=== PATIENT | female | born 1950 | race Caucasian/White ===

== ENCOUNTER 2020-12-14 11:57 | Emergency (ER) | payer OTHER ==
--- OUTSIDE RECORDS SUMMARY | 2020-12-14 12:00 | XMS REPORT | Continuity of Care Document ---
:1950 Author Organization [facility] t Address [address] [place] [address] Care Team Providers Name Role Phone Nisa PEREZ, Liz Attending Clinician Unavailable Alison Ferreira Attending Clinician Ligia RAMIREZ Attending Clinician Maria Luz Lynch MD Attending Clinician Doctor Unassigned, Name Attending Clinician Unavailable Juliann Fuentes MD Attending Clinician Mikala RAMIREZ Attending Clinician Jeremiah RAMIREZ Attending Clinician Ligia RAMIREZ Admitting Clinician Jeremiah RAMIREZ Admitting Clinician Problems This patient has no known problems. Allergies, Adverse Reactions, Alerts This patient has no known allergies or adverse reactions. Medications This patient has no known medications. Procedures This patient has no known procedures. Encounters Start End Encounter Admission Attending Care Care Encounter Source Date/Time Date/Time Type Type Clinicians Facility Department ID 2020-12-05 2020-12-05 Transition Radha Paula [id number] 00:00:00 00:00:00 of Care Lele Hanley [id number] [place] [id number] 2020-11-272020-12-04 [facility] Amelia Ziegler [id number] 10:20:00 19:30:00 Encounter Kashif Strong [id number] Wendi Lynch [facility] [id number] .[id number] 2020-11-27 2020-11-27 Orders Doctor CLAIRE [id number] 00:00:00 00:00:00 Only Unassigned, MAGDA [id number] [facility] [id number] 2020-11-14 2020-11-14 Transition Radha Paula [id number] 00:00:00 00:00:00 of Care Lele Hill Talon [id number] [place] [id number] 2020-11-10 2020-11-13 [facility] Juan Fuentes [facility] 1.2.840. [id number] 03:31:00 16:48:00 Encounter Clarence Bach [id number] Camilo Daniels [id number] [place] [id number] Results This patient has no known results.
[2020-12-14] MEDS ORDERED: METHYLPREDNISOLONE 125 MG INJ ONE (12:20)
[2020-12-14] MEDS ORDERED: LEVALBUTEROL 1.25 MG/3 ML NEB ONE (12:20)
[2020-12-14] MEDS ORDERED: LORazepam 2 MG/ML VIAL ONE (12:36)
[2020-12-14 12:39] LABS: Absolute Lymphocytes (CBC) 0.8 K/uL (0.7-4.9); Basophils % 0.4 % (0-1.3); Hematocrit 40.9 % (36.0-45.0); Lymphocytes % 6.2 % (15.3-44.8); MPV 8.6 fL (7.6-11.3); Protime INR 1.09; RBC Red Blood Cell Count 4.62 M/uL (3.86-4.86)
[2020-12-14 12:50] LABS: ALT/SGPT 17 U/L (12-78); AST/SGOT 24 U/L (15-37); Albumin 3.3 g/dL (3.4-5.0); Alkaline Phosphatase 152 U/L (45-117); BUN Blood Urea Nitrogen 18 mg/dL (7-18); Bicarbonate 34 mmol/L (21-32); Bilirubin Direct 0.2 mg/dL (0-0.2); Bilirubin Total 0.6 mg/dL (0.2-1.0); Glucose Level 166 mg/dL (74-106); Magnesium 2.2 mg/dL (1.8-2.4); NT PRO-BNP 1159 pg/mL (<125); Potassium 3.5 mmol/L (3.5-5.1); Protein, Total 7.2 g/dL (6.4-8.2); Sodium Level 143 mmol/L (136-145); Troponin (Emerg Dept Use Only) < 0.02 ng/mL (0.0-0.045)
[2020-12-14] MEDS ORDERED: NITROGLYCERIN/D5W 50 MG/250 ML BTL IV ONE (13:15)
--- NOTE | 2020-12-14 14:49 | RAD REPORT ---
EXAM DESCRIPTION: Ruben Single View12/14/2020 1:40 pm CLINICAL HISTORY: Shortness of breath COMPARISON: December 09 2020 FINDINGS: A moderate right pneumothorax has developed. Lungs appear clear of acute infiltrate. Heart is mildly enlarged. There may be a small left pleural effusion IMPRESSION: Moderate right pneumothorax. The exam was discussed with Dr. Bagley in the emergency ro om 2:41 p.m. December 14, 2020
[2020-12-14] MEDS ORDERED: LIDOCAINE 1% MPF 30 ML VIAL ONE (15:34)
--- NOTE | 2020-12-14 16:07 | RAD REPORT ---
EXAM DESCRIPTION: Chilot Single View12/14/2020 3:58 pm CLINICAL HISTORY: Device placement right chest tube placement IMPRESSION: Right chest tube has been inserted with minimal residual right pneumothorax.
--- NOTE | 2020-12-14 16:23 | RAD REPORT ---
EXAM DESCRIPTION: CT - Thorax Wo Con - 12/14/2020 4:09 pm CLINICAL HISTORY: Right pneumothorax COMPARISON: Chest x-ray December 14, 2020 TECHNIQUE: Computed axial tomography of the chest was obtained. Contrast was not requested. All CT scans are performed using dose optimization technique as appropriate and may include automated exposure control or mA/KV adjustment according to patient size. FINDINGS: The evaluation of mediastinum, patricio and vessels is limited secondary to lack of IV contras t administration. A right chest tube has its within the medial upper right pleural space. Minimal right pneumothorax. Mild left lower lobe atelectasis. Several right upper lobe blebs. Largest measures 3.4 centimeters. M ild chronic appearing right lung opacities No mediastinal or hilar lymphadenopathy is seen. A pleural effusion is not present. IMPRESSION: Placement of a right chest tube with minimal right pneumothorax
--- NOTE | 2020-12-14 16:39 | CON ---
Date of Consultation: 12/14/2020 Chief Complaint: Shortness of breath. History Of Present Illness: The patient is a 70-year-old female with severe COPD who went into acute respiratory distress with shortness of breath. EMS was called. She was put on CPAP. She had extre me hypertension. Brought to the emergency room. Medication was given. She was switched to BiPAP. Chest x-ray was done and revealed a large right pneumothorax and I was asked to place a chest tube. Informed consent from the family was obtained. The patient was unable to give informed consent. On y arrival, she was resting, breathing with BiPAP. Her blood pressure had come down. Her O2 sat was 100%. She was in no acute distress. Review of Systems: Otherwise unremarkable. Past Medical History: Significant for COPD. Past Surgical History: Significant for appendectomy and total abdominal hysterectomy. Allergies: NO ALLERGIES. Social History: She does smoke. Denies drinking per computer records. She has counseled on previou s visits. Physical Examination: Vital signs: She is awake, but confused, resting. Head and neck: Trachea is midline. There is no JVD. No neck masses. Chest: Diminished breath sounds on the right side. Somewhat labored breathing. Heart: S1, S2. Abdomen: Soft. Extremities: Neurovascularly intact. Neurologic: Nonfocal. Chest x-ray shows a large right pneumothorax. Assessment: Right large pneumothorax. Plan: Informed consent obtained from the family for placement of right chest tube. They understood risks, benefits, alternatives and agreed to procedure. Procedure Note: The patient was prepped and draped in the usual sterile fashion. Lidocaine 1% infil trated in the mid axillary line 4th intercostal space. Then, an 11 blade was used to make a 1.5 cm i ncision. Subcutaneous tissue was divided and then pleural cavity was entered with blunt dissection. A large amount of air exited. A 24-Maori chest tube placed and secured with #1 Vicryl. Occlusive dressing was applied. Pleur-evac connected and chest x-ray has been ordered. The patient tolerated the procedure in stable condition. /MODL Voice ID: [id number] Report ID: [id number]
[2020-12-14 17:55] LABS: Arterial Blood Carboxyhemoglob 0.9 % (0-1.5); Blood Gas Oxyhemoglobin 97.4 % (94-97); Blood O2 Saturation 99.3 % (92-98.5)
--- NOTE | 2020-12-14 18:24 | ER ---
Nurse's Notes [facility] Name: Elena Bruno Age: 70 yrs Sex: Female : 1950 Arrival Date: 12/14/2020 Time: 12:05 Bed 3 Private MD: Diagnosis: COPD Exacerbation, Spntaneous PTX right lung Presentation: 12/14 12:05 Chief complaint: EMS states: pt from home, cyanotic on home o2 upon arrival, sats at tw2 71%, pt also diaphoretic, pt was just here for same thing per son. 12:09 Coronavirus screen: difficulty breathing, Client presents with at least one sign or tw2 symptom that may indicate coronavirus-19. Standard/surgical mask placed on the client. Provider contacted for isolation considerations. Ebola Screen: Patient denies travel to an Ebola-affected area in the 21 days before illness onset. Initial Sepsis Screen: Does the patient meet any 2 criteria? Yes Does the patient have a suspected source of infection? No. Patient's initial sepsis screen is negative. Risk Assessment: Do you want to hurt yourself or someone else? Patient reports no desire to harm self or others. Onset of symptoms was December 14, 2020. 12:09 Acuity: FABBY 2 tw2 12:09 Method Of Arrival: EMS: [facility] tw2 Triage Assessment: 12:05 General: Appears distressed, slender, Behavior is anxious. Pain: Denies pain. tw2 Respiratory: Reports shortness of breath Airway is patent Respiratory effort is labored, Respiratory pattern is tachypnea Onset: The symptoms/episode began/occurred , the patient has severe shortness of breath. Historical: - Allergies: 12:14 No Known Allergies; tw2 - Home Meds: 12:14 Aspirin Oral [Active]; Albuterol Inhl [Active]; tw2 - PMHx: 12:14 Chronic obstructive lung disease; tw2 - PSHx: 12:14 Appendectomy; Total abdominal hysterectomy; tw2 - Immunization history:: Adult Immunizations. - Social history:: Smoking status: . Screenin:28 Abuse screen: Denies threats or abuse. Nutritional screening: No deficits noted. tw2 Tuberculosis screening: No symptoms or risk factors identified. Fall Risk Secondary diagnosis (15 points) impaired mobility. Assessment: 12:19 Reassessment: pt unable to hold still for EKG at this time, pt states "im panicking" tw2 provider notified of delay, medicated as ordered. 12:24 General: Appears slender, Behavior is anxious. Pain: Denies pain. Neuro: Level of tw2 Consciousness is awake, alert, obeys commands, Oriented to person, place, situation. Cardiovascular: Rhythm is sinus tachycardia. Respiratory: Airway is patent Respiratory effort is even, labored, Respiratory pattern is tachypnea Breath sounds are diminished bilaterally. GI: Parent/caregiver reports the patient having incontinence, "she just looses her stools whenever she stands up since she has been home from the hospital just recently over the 09 of December weekend". : Parent/caregiver report the patient having incontinence. EENT: No signs and/or symptoms were reported regarding the EENT system. Derm: Skin is intact, is fragile, is thin, Skin is dry. Musculoskeletal: Range of motion: intact in all extremities, Kyphosis noted. 12:51 Reassessment: pts son at bedside heard saying "what are you doing, leave it on", upon tw2 entry into the room pt has bipap off face, son is holding it near her face, bipap mask reapplied, noted o2 at 69%, pts son states "she does not want to be intubated", provider SOHEILA Murcia notified of pts o2 sat at this time and is at bedside, bipap settings adjusted to 60% FIO2, 16/8, rate 25, pt o2 sat improving noted at 88%, will continue to monitor. 13:19 Reassessment: xray at bedside at this time. tw2 13:53 Reassessment: Patient appears in no apparent distress at this time. Patient and/or tw2 family updated on plan of care and expected duration. Pain level reassessed. 14:25 Reassessment: Patient appears in no apparent distress at this time. Patient and/or tw2 family updated on plan of care and expected duration. Pain level reassessed. 15:14 Reassessment: general surgeon Dr. Santoyo and maintenance assistant nurse at bedside performing chest tw2 tube at this time. 15:37 Reassessment: pts son talking with general surgeon Dr. Santoyo at this time. tw2 15:43 Reassessment: Xray at the bedside. sv 16:15 Reassessment: pt moved to CT on NRB at 15L, pt tolerated well o2 sat remained >98% tw2 during Cat scan. 16:20 Reassessment: Patient appears in no apparent distress at this time. Patient and/or tw2 family updated on plan of care and expected duration. Pain level reassessed. 16:38 Reassessment: pts SON - DOMINIQUE PIERCE ph#[phone]. tw2 17:00 Reassessment: per VO from Dr. Bagley place pt on NRB at this time, pt placed on NRB at tw2 15L, pt remains at 100%, RT at bedside performing ABG at this time, will continue to monitor. Vital Signs: 12:09 BP 199 / 137; Pulse 108; Resp 30; Temp 97.9(TE); Pulse Ox 99% on Non-rebreather mask; tw2 Weight 50.8 kg (R); 12:14 Pulse Ox 100% on 30% BiPAP; tw2 12:55 BP 143 / 95; Pulse 113; Resp 25; Pulse Ox 98% on BiPAP; tw2 13:18 BP 133 / 94; Pulse 109; Resp 30; Temp 95.8(C); Pulse Ox 100% on BiPAP; tw2 13:52 BP 121 / 89; Pulse 91; Resp 14; Temp 96.9(C); Pulse Ox 100% on BiPAP; tw2 14:24 BP 125 / 87; Pulse 83; Resp 15; Temp 96.6(C); Pulse Ox 100% on BiPAP; tw2 15:14 BP 154 / 101; Pulse 86; Resp 14; Pulse Ox 100% on BiPAP; tw2 15:36 BP 111 / 77; Pulse 89; Resp 14; Pulse Ox 99% on R/A; tw2 16:20 BP 123 / 81; Pulse 84; Resp 15; Pulse Ox 100% on BiPAP; tw2 17:00 BP 108 / 75; Pulse 81; Resp 12; Pulse Ox 100% on Non-rebreather mask; tw2 17:26 BP 113 / 76; Pulse 82; Resp 12; Pulse Ox 100% on Non-rebreather mask; tw2 17:38 BP 110 / 78; Pulse 80; Resp 17; Temp 96.8(C); Pulse Ox 100% on 30% BiPAP; tw2 18:00 BP 141 / 93; Pulse 78; Resp 17; Temp 96.9(C); Pulse Ox 97% on R/A; tw2 18:27 BP 138 / 91; Pulse 74; Resp 19; Pulse Ox 97% on BiPAP; tw2 17:38 18/7, rate 26, 30% per RT Radha, provider Dr. Bagley notified of ABG results and bipap tw2 settings at this time. ED Course: 12:05 Patient arrived in ED. tw2 12:05 Placed in gown. Bed in low position. Side rails up X 1. case monitor on. Pulse ox tw2 on. NIBP on. Warm blanket given. Head of bed elevated. 12:08 Mi Jaime RN is Primary Nurse. tw2 12:08 Arm band placed on. tw2 12:08 Maintain EMS IV. Dressing intact. Site clean \\T\\ dry. Gauge \\T\\ site: 20 g RIGHT hand. tw 2 Inserted saline lock: 20 gauge in right forearm, using aseptic technique. Blood collected. Missed attempt(s): 20 gauge in right forearm. Bleeding controlled, band aid applied, catheter tip intact. 12:13 Triage completed. tw2 12:19 Kushal Bagley MD is Attending Physician. kdr 12:28 BIPAP Sent. tw2 13:35 XRAY Chest (1 view) Sent. sv 13:40 XRAY Chest (1 view) In Process Unspecified. EDMS 14:53 Initial lab(s) drawn, by ED staff, EKG done, by ED staff, reviewed by Kushal Bagley MD. 5 15:20 Assist provider with chest tube insertion in right lateral chest wall. Tray was set up. sv Attached to pleur-e-vac. Chest tube inserted by Kwadwo Santoyo MD Placement verified by CXR, return of air, Dressed with Vaseline gauze, silk tape, 4X4s, Patient tolerated well. 15:58 Chest Single View XRAY In Process Unspecified. EDMS 16:09 CT Chest Wo Con In Process Unspecified. EDMS 17:37 Report given to CHRIS Sanders at [facility]. tw2 18:26 Patient transferred, IV remains in place. tw2 Administered Medications: 12:14 Drug: SOLU-Medrol (methylPrednisoLONE) 125 mg Route: IVP; Site: right hand; tw2 13:17 Follow up: Response: No adverse reaction tw2 12:19 Drug: Ativan (LORazepam) 0.25 mg Route: IVP; Site: right forearm; tw2 12:29 Follow up: Response: No adverse reaction; No change in condition; Anxiety unchanged; tw2 provider notified. 12:51 Drug: Ativan (LORazepam) 0.25 mg Route: IVP; Site: right forearm; tw2 14:24 Follow up: Response: No adverse reaction tw2 13:16 Not Given (per Dr. Bagley cancell): Lasix (furosemide) 40 mg IVP once; give over 2 tw2 minutes 13:16 Not Given (pts conditon improved with proper ventilationn): Nitro Drip - (Nitroglycerin tw2 50 mg, D5W 250 ml) IV at 5 mcg/min continuous; titrate until desired hemodynamic response. Intake: Ventilator: 12:14 Fi02: 30%; Rate: 14min; Mode: CPAP; tw2 12:14 14/6 tw2 Outcome: 18:23 ER care complete, transfer ordered by . kdr 18:26 Transferred by ground EMS to [facility]. tw2 18:26 critical 18:26 Instructed on the need for admit. 18:47 Patient left the ED. tw2 Signatures: Dispatcher [employer] Rosina Clancy, Kushal Mays RN, MD MD kdr Wise, Tara, RN RN 2 Gena Christie [facility] Corrections: (The following items were deleted from the chart) 12:13 12:05 Chief complaint: EMS states: pt from home, cyanotic on home o2 upon arrival, sats tw2 at 71%, pt also diaphoretic tw2 17:50 17:38 BP 110 / 78; Pulse 80bpm; Resp 17bpm; Pulse Ox 100% 02 30% BiPAP; Temp 96.8F tw2 Catheter; 23/12, rate 26, 30%; tw2
--- NOTE | 2020-12-14 18:24 | EDPHYS ---
Physician Documentation [facility] Name: Elena Bruno Age: 70 yrs Sex: Female : 1950 Arrival Date: 12/14/2020 Time: 12:05 Bed 3 Private MD: ED Physician Kushal Bagley HPI: 12/14 13:39 This 70 yrs old Female presents to ER via EMS with complaints of Respiratory kdr Distress. 13:39 The patient has shortness of breath at rest. Onset: The symptoms/episode began/occurred kdr this morning. Duration: The symptoms are continuous, and are steadily getting worse. The patient's shortness of breath is aggravated by exertion, light activity. Associated signs and symptoms: Pertinent positives: Pertinent negatives: non-productive cough. Severity of symptoms: At their worst the symptoms were incapacitating in the emergency department the symptoms are unchanged. The patient has been recently seen at the [facility] Emergency Department, The patient has been recently been admitted at [facility], was discharged last week. Historical: - Allergies: 12:14 No Known Allergies; tw2 - Home Meds: 12:14 Aspirin Oral [Active]; Albuterol Inhl [Active]; tw2 - PMHx: 12:14 Chronic obstructive lung disease; tw2 - PSHx: 12:14 Appendectomy; Total abdominal hysterectomy; tw2 - Immunization history:: Adult Immunizations. - Social history:: Smoking status: . ROS: 13:39 Constitutional: Negative for fever, chills, and weight loss, Eyes: Negative for injury, kdr pain, redness, and discharge, Neck: Negative for injury, pain, and swelling, Cardiovascular: Negative for chest pain, palpitations, and edema. 13:39 Unable to obtain ROS due to patient distress, patient is on ventilator. Exam: 13:39 Constitutional: This is a well developed, well nourished patient who is awake, alert, kdr and in severe distress. Head/Face: Normocephalic, atraumatic. Eyes: Pupils equal round and reactive to light, extra-ocular motions intact. Lids and lashes normal. Conjunctiva and sclera are non-icteric and not injected. Cornea within normal limits. Periorbital areas with no swelling, redness, or edema. Neck: Trachea midline, no thyromegaly or masses palpated, and no cervical lymphadenopathy. Supple, full range of motion without nuchal rigidity, or vertebral point tenderness. No Meningismus. Chest/axilla: Normal chest wall appearance and motion. Nontender with no deformity. No lesions are appreciated. Abdomen/GI: Soft, non-tender, with normal bowel sounds. No distension or tympany. No guarding or rebound. No evidence of tenderness throughout. Back: No spinal tenderness. No costovertebral tenderness. Full range of motion. Skin: Warm, dry with normal turgor. Normal color with no rashes, no lesions, and no evidence of cellulitis. MS/ Extremity: Pulses equal, no cyanosis. Neurovascular intact. Full, normal range of motion. Neuro: Awake and alert, GCS 15, oriented to person, place, time, and situation. Cranial nerves II-XII grossly intact. Motor strength 5/5 in all extremities. Sensory grossly intact. Cerebellar exam normal. Normal gait. Psych: Awake, alert, with orientation to person, place and time. Behavior, mood, and affect are within normal limits. 13:39 Cardiovascular: Rate: tachycardic, Rhythm: regular, Pulses: no pulse deficits are appreciated. 13:39 Respiratory: severe repiratory distress is noted, Respirations: labored breathing, shallow respirations, that is severe, tachypnea, that is moderate, Breath sounds: decreased breath sounds, that are severe, are scattered. 14:12 ECG was reviewed by the Attending Physician. kdr Vital Signs: 12:09 BP 199 / 137; Pulse 108; Resp 30; Temp 97.9(TE); Pulse Ox 99% on Non-rebreather mask; tw2 Weight 50.8 kg (R); 12:14 Pulse Ox 100% on 30% BiPAP; tw2 12:55 BP 143 / 95; Pulse 113; Resp 25; Pulse Ox 98% on BiPAP; tw2 13:18 BP 133 / 94; Pulse 109; Resp 30; Temp 95.8(C); Pulse Ox 100% on BiPAP; tw2 13:52 BP 121 / 89; Pulse 91; Resp 14; Temp 96.9(C); Pulse Ox 100% on BiPAP; tw2 14:24 BP 125 / 87; Pulse 83; Resp 15; Temp 96.6(C); Pulse Ox 100% on BiPAP; tw2 15:14 BP 154 / 101; Pulse 86; Resp 14; Pulse Ox 100% on BiPAP; tw2 15:36 BP 111 / 77; Pulse 89; Resp 14; Pulse Ox 99% on R/A; tw2 16:20 BP 123 / 81; Pulse 84; Resp 15; Pulse Ox 100% on BiPAP; tw2 17:00 BP 108 / 75; Pulse 81; Resp 12; Pulse Ox 100% on Non-rebreather mask; tw2 17:26 BP 113 / 76; Pulse 82; Resp 12; Pulse Ox 100% on Non-rebreather mask; tw2 17:38 BP 110 / 78; Pulse 80; Resp 17; Temp 96.8(C); Pulse Ox 100% on 30% BiPAP; tw2 18:00 BP 141 / 93; Pulse 78; Resp 17; Temp 96.9(C); Pulse Ox 97% on R/A; tw2 18:27 BP 138 / 91; Pulse 74; Resp 19; Pulse Ox 97% on BiPAP; tw2 17:38 18/7, rate 26, 30% per RadhaRT, provider Dr. Bagley notified of ABG results and bipap tw2 settings at this time. Ventilator: 12:14 Fi02: 30%; Rate: 14min; Mode: CPAP; tw2 12:14 14/6 tw2 MDM: 13:39 Data reviewed: vital signs, nurses notes, lab test result(s), EKG, radiologic studies. kdr Counseling: I had a detailed discussion with the patient and/or guardian regarding: the historical points, exam findings, and any diagnostic results supporting the discharge/admit diagnosis, lab results, radiology results. 18:23 Patient medically screened. kdr 12/14 12:18 Order name: Basic Metabolic Panel; Complete Time: 12:58 tw2 12/14 12:18 Order name: CBC with Diff; Complete Time: 12:58 tw2 12/14 12:18 Order name: LFT's; Complete Time: 12:58 tw2 12/14 12:18 Order name: Magnesium; Complete Time: 12:58 tw2 12/14 12:18 Order name: NT PRO-BNP; Complete Time: 12:58 tw2 12/14 12:18 Order name: PT-INR; Complete Time: 12:58 tw2 12/14 12:18 Order name: Troponin (emerg Dept Use Only); Complete Time: 12:58 tw2 12/14 12:18 Order name: XRAY Chest (1 view); Complete Time: 16:46 tw2 12/14 16:52 Order name: ABG kdr 12/14 16:53 Order name: ABG Arterial Blood Gas EDPA 12/14 17:51 Order name: ABG em1 12/14 18:27 Order name: SARS-COV-2 RT PCR EDPA 12/14 12:18 Order name: EKG; Complete Time: 12:19 tw2 12/14 12:18 Order name: Cardiac monitoring; Complete Time: 12:19 tw2 12/14 12:18 Order name: EKG - Nurse/Tech; Complete Time: 14:24 tw2 12/14 12:18 Order name: IV Saline Lock; Complete Time: 12:19 tw2 12/14 12:18 Order name: Labs collected and sent; Complete Time: 12:19 tw2 12/14 12:18 Order name: O2 Per Protocol; Complete Time: 12:28 tw2 12/14 12:18 Order name: O2 Sat Monitoring; Complete Time: 12:19 tw2 12/14 12:19 Order name: BIPAP tw2 12/14 13:19 Order name: Álvarez; Complete Time: 13:19 tw2 12/14 15:32 Order name: Chest Single View XRAY; Complete Time: 16:46 sv 12/14 15:40 Order name: CT Chest Wo Con; Complete Time: 16:46 sv EC:12 Rate is 102 beats/min. Rhythm is irregular, Sinus arrythmia with No ectopy. QRS [place] is kdr Normal. [place] interval is normal. QRS interval is normal. Clinical impression: Sinus tachycardia. Administered Medications: 12:14 Drug: SOLU-Medrol (methylPrednisoLONE) 125 mg Route: IVP; Site: right hand; tw2 13:17 Follow up: Response: No adverse reaction tw2 12:19 Drug: Ativan (LORazepam) 0.25 mg Route: IVP; Site: right forearm; tw2 12:29 Follow up: Response: No adverse reaction; No change in condition; Anxiety unchanged; tw2 provider notified. 12:51 Drug: Ativan (LORazepam) 0.25 mg Route: IVP; Site: right forearm; tw2 14:24 Follow up: Response: No adverse reaction tw2 13:16 Not Given (per Dr. Bagley cancell): Lasix (furosemide) 40 mg IVP once; give over 2 tw2 minutes 13:16 Not Given (pts conditon improved with proper ventilationn): Nitro Drip - (Nitroglycerin tw2 50 mg, D5W 250 ml) IV at 5 mcg/min continuous; titrate until desired hemodynamic response. Disposition Summary: 12/14/20 18:23 Transfer Ordered Transfer Location: [facility] kdr Reason: Higher level of care kdr Condition: Serious kdr Problem: new kdr Symptoms: have improved kdr Accepting Physician: Angelo(12/14/20 18:47) tw2 Diagnosis - COPD Exacerbation, Spntaneous PTX right lung kdr Discharge Instructions: - Discharge Summary Sheet tw2 Forms: - Medication Reconciliation Form kdr - SBAR form tw2 Signatures: Dispatcher [employer] EDKushal Henriquez MD MD kdr Mayur Gonzalez PA PA [id number] Mi Jaime RN RN tw2 Corrections: (The following items were deleted from the chart) 17:25 16:56 CORONAVIRUS+MR.LAB.BRZ ordered. EDMS EDMS 17:29 16:22 CORONAVIRUS+MR.LAB.BRZ ordered. EDMS EDMS 18:47 18:23 Ahibi kdr tw2
[2020-12-14 19:40] VITALS: TEMP 96.9; O2SAT 97
[2020-12-14 19:41] VITALS: BP 138/91
--- NOTE | 2020-12-17 16:14 | EKG ---
Test Date: 2020-12-14 Test Time: 12:44:48 Clinical Psychologist Licensed: ROSARIO MEASUREMENT RESULTS: Intervals: Rate: 102 MD: 122 QRSD: 80 QT: 346 QTc: 450 [place]: P: 90 MD: 122 QRS: 84 T: 41 INTERPRETIVE STATEMENTS: Sinus tachycardia Voltage criteria for left ventricular hypertrophy Anteroseptal infarct, age undetermined Abnormal ECG Compared to ECG 12/08/2020 14:36:55 Sinus rhythm no longer present Myocardial infarct finding still present Electronically Signed On 12-17-20 16:05:46 CDT by Jacques Mata
== END 2020-12-14 18:47 | disposition short-term general hospital (02) ==
LOC: ER 11:57
DX: J93.11 Primary spontaneous pneumothorax (principal); J44.1 Chronic obstructive pulmonary disease with (acute) exacerbation; Z20.822 Contact with and (suspected) exposure to COVID-19; Z79.82 Long term (current) use of aspirin
CPT/HCPCS: 93005; 85025; 80048; 36415; 83735; 85610; 80076; 84484; 83880; 71250; 71045 ×2; 82805 ×2; 94660; 99291; 99292; U0003; J2930

== ENCOUNTER 2022-03-08 15:25 | Emergency (ER) | payer OTHER ==
--- OUTSIDE RECORDS SUMMARY | 2022-03-08 15:41 | XMS REPORT | Continuity of Care Document ---
:1950 Author Organization [facility] t Address [address] [place] [address] Care Team Providers Name Role Phone No, Pcp [facility] Primary Care Physician Unavailable CHAO CARDONA Attending Clinician Unavailable Lele Paula RN Attending Clinician Unavailable Amelia Ferreira Attending Clinician Kashif Strong MD Attending Clinician Wendi Lynch MD Attending Clinician [phone] Attending Clinician Unavailable Doctor Unassigned, [place] Attending Clinician Unavailable Vidhya Fuentes MD Attending Clinician Clarence Bach MD Attending Clinician Amanda Glez MD Attending Clinician VIDHYA FUENTES Attending Clinician Unavailable CHAO CARDONA Admitting Clinician Unavailable OLE CUEVA Admitting Clinician Unavailable Kashif Strong MD Admitting Clinician Amanda Glez MD Admitting Clinician Payers Payer Name Policy Type Policy Number Effective Date Expiration Date S ource MEDICARE A B [id number] 2014 00:00:00 Problems Condition Condition Condition Status Onset Resolution Last Treating Co mments Source Name Details Category Date Date Treatment Clinician Date Acute Acute Disease Active [facility]emic 12-14 [facility] s respirator respirator 00:00: Me dical y failure y failure 00 Cent er Pneumothor Pneumothor Disease Active [facility] Acute Acute Disease Active Univers hypercapni hypercapni 11-27 it y of c c 00:00: [place] respirator respirator 00 Me dical y failure y failure Bran ch E46 E46 Disease Active Univers Unspecifie Unspecifie 11-12 it y of d severe d severe 00:00: [place] protein-ca protein-ca 00 Me dical marshall marshall [place] malnutriti malnutriti on on Cellulitis Cellulitis Disease Active U nivers of left of left 11-10 ity of lower lower 00:00: [place] extremity extremity 00 [facility] santo Branch Allergies, Adverse Reactions, Alerts Allergy Allergy Status Severity Reaction(s) Onset Inactive Treating Comm ents Source Name Type Date Date Clinician Levoflox Propensi Active Hallucinatio Univers acin ty to ns 11-27 ity of adverse 00:00: [place] reaction 00 [facility] LEVOFLOX DRUG Active Hallucinates Un jacinda ACIN INGREDI 11-27 ity of 00:00: [place] 00 [facility] NO KNOWN Drug Active Univers ALLERGIE Class ity of S [facility] NO KNOWN Allergy [facility] Social History Social Habit Start Date Stop Date Quantity Comments Source Exposure to Not sure [facility] SARS-CoV-2 (event) [facility] Cigarettes smoked 2020-11-27 2020-11-27 Univers ity of current (pack per 00:00:00 00:00:00 ) - Reported Branch Cigarette 2020-11-27 2020-11-27 University of pack-years 00:00:00 00:00:00 [facility] Tobacco use and 2020-11-27 2020-11-27 Never used Universit y of exposure 00:00:00 00:00:00 [facility] Alcohol intake 2020-11-27 2020-11-27 Ex-drinker University 00:00:00 00:00:00 (finding) [facility] Sex Assigned At [address] [address] [facility] 00:00:00 00[facility]00:00 [facility] Smoking Status Start Date Stop Date Source Current every day smoker 2020-11-27 00:00:00 Uni versity [facility] Medications Ordered Filled Start Stop Current Ordering Indication Dosage Frequency Signature Comments Components Source Medication Medication Date Date Medication? Clinician (SIG) Name Name levothyroxi 2021- No 75ug Take [address] [facility] ne 12-20-15 tablet (75 [facility] (SYNTHROID, 00:00: 23:59 mcg total) Medical LEVOTHROID) 00 :00 by mouth Cent er 75 MCG Every tablet morning on an empty stomach. budesonide 2021- No .5mg Q.5D Take [address] [facility] (PULMICORT) 12-19 (0.5 mg Luke s 0.5 mg/2 mL 00:00: 23:59 total) by Medical nebulizer 00 :00 ne[address] er solution on 2 (two) times daily. ipratropium 2021- No 3mL Take [address] [facility] -albuteroL 12-19 by [place] (DUO-NEB) 00:00: 23:59 nebulizati M edical 0.5 mg-3 00 :00 on every 4 Cente r mg(2.5 mg (four) base)/3 mL hours for nebulizer 360 days. solution levothyroxi Yes 75ug Take 75 Uni vers ne 75 mcg 6-30 mcg by ity of tablet 01:00: mouth [place] 27 every Medical morning. Branch levothyroxi Yes 75ug Take 75 Uni vers ne 75 mcg 6-30 mcg by ity of tablet 01:00: mouth [place] 27 every Medical morning. Branch vitamin Yes [id number] 1000ug Take 1 U nivers B-12 1,000 6-30 tablet by ity of mcg tablet 00:00: mouth [place] 00 daily. [facility] vitamin Yes [id number] 1000ug Take 1 U nivers B-12 1,000 6-30 tablet by ity of mcg tablet 00:00: mouth [place] 00 daily. [facility] vitamin Yes 1000ug 1,000 mcg, Un jacinda B-12 6-29 Oral, ity of (CYANOCOBAL 14:00: DAILY, [place]) 00 First dose Medical tablet on Thu Branch 1,000 mcg 12/04/20 at 0900, Until Discontinu ed, Routine albuterol Yes [id number] 2{puff} Inhale 2 Univers 90 6-29 Puffs ity of mcg/actuati 00:00: every 6 Juni as on inhaler 00 (six) Medical hours as Branch needed for Wheezing or Shortness of Breath. albuterol Yes [id number] 2{puff} Inhale 2 Univers 90 6-29 Puffs ity of mcg/actuati 00:00: every 6 Juni as on inhaler 00 (six) Medical hours as Branch needed for Wheezing or Shortness of Breath. KCL 202- No 40meq 40 mEq, Univers (KLOR-CON 12-01 06-26 Oral, ity of M20) tablet 14:15: 13:20 ONCE, 1 [place] 40 mEq 00 :00 dose, [facility] Medical 12/01/20 at Branch 0915, Routine lactated 2020- No 500mL at 999 Unive rs ringers IV 11-29 06-24 mL/hr, 500 it y of infusion 01:15: 02:00 mL, [place] 500 mL 00 :00 Intravenou Medical s, ONCE, 1 Branch dose, 11/28/20 at 2015, Routine furosemide Yes 20mg 20 mg, Unive rs (LASIX) 11-28 Oral, ity of tablet 20 14:00: DAILY, [place] mg 00 First dose Medical on Thu Branch 11/28/20 at 0900, Until Discontinu ed, Routine pantoprazol Yes 40mg 40 mg, Univ ers e 6-23 Oral, ity of (PROTONIX) 14:00: DAILY, [place] EC tablet 00 First dose Medi santo 40 mg on Thu Branch 11/28/20 at 0900, Until Discontinu ed, Routine
Indicatio n for use: None of the above enoxaparin Yes 40mg 40 mg, Unive rs (LOVENOX) 11-28 Subcutaneo ity of injection 14:00: us, DAILY, [place] 40 mg 00 First dose Medical on Thu Branch 11/28/20 at 0900, Until Discontinu ed, Routine predniSONE No 40mg [address] mg, [facility] ers (DELTASONE) 11-28 Oral, ity of tablet 40 14:00: 13:58 DAILY, 5 Juni as mg 00 :00 doses, Medical First dose Branch on Thu11/28/20 at 0900, Last dose on Thu12/02/20 at 0900, Routine levothyroxi Yes 75ug 75 mcg, Uni vers ne 11-28 Oral, ity of (SYNTHROID) 11:00: QAM-0600, [place] tablet 75 00 First dose Medi santo mcg on Thu Branch 11/28/20 at 0600, Until Discontinu ed, Routine albuterol Yes 2.5mg 2.5 mg, [facility] ers (PROVENTIL) 11-28 Inhalation it y of 2.5 mg /3 01:00: , Q4H, [place] mL (0.083 00 First dose Medi santo %) on [facility]3] nebulizer 11/27/20 at solution 2000, 2.5 mg Until Discontinu ed, Routine ceFEPIme No 2000mg 2,000 mg, U nivers (MAXIPIME) 11-28 IV ity of 2,000 mg in 00:15: 14:42 Piggyback, [place] NaCl 0.9% 00 :22 Q8H ABX, Medica l (NS) 100 mL First dose Br anch MINI-BAG on Thu11/27/20 at 1915, Until Discontinu ed, 100 mL
R corina for Anti-Infec tive: Empiric Therapy for Suspected Infection< br>Empiric Therapy Site: Respirator y
Durat ion of therapy: 72 hours doxycycline No 100mg 100 mg, IV Univers (VIBRAMYCIN 11-27 Piggyback, i ty of ) 100 mg in 23:15: 23:48 Q12H ABX, [place] NaCl 0.9% 00 :53 First dose Medi santo (NS) 100 mL on [facility]3] MINI-BAG 11/27/20 at 1815, Until Discontinu ed, 100 mL
R corina for Anti-Infec tive: Empiric Therapy for Suspected Infection< br>Empiric Therapy Site: Respirator y
Durat ion of therapy: 72 hours vancomycin 2020-2020- No 15mg/kg 500 mg U nivers 500 mg in 11-27 (rounded ity o f NS 100 mL 23:15: 14:42 from 652.5 [place] IV 00 :22 mg = 15 Medical piggyback mg/kg Branch (CNR) ?43.5 kg), IV Piggyback, Q12H ABX, First dose on 11/27/20 at 1815, Until Discontinu ed, 100 mL
Reas on for Anti-Infec tive: Empiric Therapy for Suspected Infection< br>Empiric Therapy Site: Respirator y
Durat ion of therapy: 72 hours glucagon Yes 1mg 1 mg, Univers (GLUCAGEN 11-27 Intramuscu ity of DIAGNOSTIC 22:25: lar, PRN, [place] KIT) 31 Starting Medical injection 1 Tue Branch mg 11/27/20 at 1725, Until Discontinu ed, CEM, Blood Glucose < or = 70 mg/dL and patient is unable to swallow or has mental changes. dextrose 50 Yes 25mL 25 mL, Univ ers % in water 11-27 Slow IV ity of (D50W) 22:25: Push, PRN, [place] injection 31 Starting Medica l 25 mL Tue Branch 11/27/20 at 1725, Until Discontinu ed, CEM, Blood Glucose < or = 70 mg/dL and patient is unable to swallow or has mental status changes. cefTRIAXone 0 2020- No 1000mg 1,000 mg, Univers (ROCEPHIN) 11-27 IV ity of 1,000 mg in 18:15: 18:16 [facility], [place] NaCl 0.9% 00 :00 ONCE, 1 Medical (NS) 50 mL dose, Tue Bran ch MINI-BAG 11/27/20 at 1315, 50 mL
Reas on for Anti-Infec tive: Documented Infection< br>Documen cristhian Infection Site: Respirator y
Durat ion of Therapy: 10 days magnesium 2020- No 2g 2 g, IV Univ ers sulfate in 11-27 Piggyback, it y of water 2 16:45: 18:00 ONCE, 1 [place] gram/50 mL 00 :00 dose, Tue Medi santo (4 %) 11/27/20 at [place] infusion 2 1145, g Routine methylpredn 2020- No 125mg 125 mg, IV Univers isolone sod 11-27 Piggyback, i ty of succ 16:45: 15:47 ONCE, 1 [place] (SOLU-MEDRO 00 :00 dose, Tue Med ical L) 11/27/20 at [place] injection 1145, STAT 125 mg ipratropium 2020- No 3mL 3 mL, Univ ers -albuteroL 11-27 Inhalation it y of (DUONEB) 16:45: 15:36 , ONCE, 1 Juni as 0.5 mg-3 00 :00 dose, Tue Medica l mg(2.5 mg 11/27/20 at [facility])/3 mL 1145, nebulizer Routine solution 3 mL cefdinir Yes 600mg 600 mg, Unive rs (OMNICEF) 09 Oral, ity of capsule 600 14:00: DAILY, [place] mg 00 First dose Medical (after [place] last modificati on) on Thu11/14/20 at 0900, Until Discontinu ed, CEM
Re ason for Anti-Infec tive: Empiric Therapy for Suspected Infection< br>Empiric Therapy Site: Skin / Soft tissue
Duration of therapy: 72 hours levothyroxi Yes 75ug Take 75 Uni vers ne 75 mcg 6-08 mcg by ity of tablet 21:50: mouth [place] 33 every Medical morning. Branch levothyroxi Yes 75ug Take 75 Uni vers ne 75 mcg 6-08 mcg by ity of tablet 21:50: mouth [place] 33 every Medical morning. Branch levothyroxi Yes 75ug Take 75 Uni vers ne 75 mcg 6-08 mcg by ity of tablet 21:50: mouth [place] 33 every Medical morning. [place] lactobacill Yes .5mg 0.5 mg, Uni vers us 608 Oral, BID, ity of acidophilus 16:00: First dose [place] tablet 0.5 00 on Thu Medical mg 11/13/20 at Branch 1100, Until Discontinu ed, Routine furosemide 2020-0 Yes 20mg [address], [facility] (LAS[facility]) 6 Slow IV ity of injection 15:45: Push, [place] 20 mg 00 DAILY, Medical First dose Branch on Thu11/13/20 at 1045, Until Discontinu ed, Routine furosemide 2020-0 Yes [id number] 20mg Take 1 Univers 20 mg 6-08 tablet by ity of tablet 00:00: mouth [place] 00 daily. Medical Branch acidophilus 2020-0 Yes [id number] 1g Take 1 Univers 100 million 6-08 tablet by ity of cell tablet 00:00: mouth 2 Juni as 00 (two) Medical times [place] daily. Bismuth 2020-0 Yes [id number] Apply to [facility] 608 lower ity of [facility], 00:00: extremity [place] (XEROFORM 00 wounds Medical PETROLATUM with Branch DRESSING) 4 Kerlix X 4 " Bndg wrap and change daily furosemide 2020-0 Yes [id number] 20mg Take 1 Univers 20 mg 6-08 tablet by ity of tablet 00:00: mouth [place] 00 daily. Medical Branch acidophilus 2020-0 Yes [id number] 1g Take 1 Univers 100 million 6-08 tablet by ity of cell tablet 00:00: mouth 2 Juni as 00 (two) Medical times [place] daily. Bismuth 2020-0 Yes [id number] Apply to [facility] 608 lower ity of rolatum, 00:00: extremity [place] (XEROFORM 00 wounds Medical PETROLATUM with Branch DRESSING) 4 Kerlix X 4 " Bndg wrap and change daily furosemide 2020-0 Yes [id number] 20mg Take 1 Univers 20 mg 6-08 tablet by ity of tablet 00:00: mouth [place] 00 daily. Medical Branch acidophilus 2020-0 Yes [id number] 1g Take 1 Univers 100 million 6-08 tablet by ity of cell tablet 00:00: mouth 2 Juni as 00 (two) Medical times [place] daily. Bismuth 2020-0 Yes [id number] Apply to U nivers Tribrom-Pet 6-08 lower ity of [facility],[place] 00:00: extremity [place] (XEROFORM 00 wounds Medical PETROLATUM with Branch DRESSING) 4 Kerlix X 4 " Bndg wrap and change daily furosemide Yes [id number] 20mg Take 1 Univers 20 mg 6-08 tablet by ity of tablet 00:00: mouth [place] 00 daily. Medical Branch acidophilus 2020-0 Yes [id number] 1g Take 1 Univers 100 million 6-08 tablet by ity of cell tablet 00:00: mouth 2 Jun[place] as 00 (two) Medical times Branch daily. Bismuth Yes [id number] Apply to U [facility] Tribrom-Pet 6-08 lower ity of [facility],[place] 00:00: extremity [place] (XEROFORM 00 wounds Medical PETROLATUM with Branch DRESSING) 4 Kerlix X 4 " Bndg wrap and change daily furosemide Yes [id number] 20mg Take 1 Univers 20 mg 6-08 tablet by ity of tablet 00:00: mouth [place] 00 daily. Medical Branch acidophilus Yes [id number] 1g Take 1 Univers 100 million 6-08 tablet by ity of cell tablet 00:00: mouth 2 Juni as 00 (two) Medical times Branch daily. Bismuth Yes [id number] [facility] lower ity of [facility], 00:00: extremity [place] (XEROFORM 00 wounds Medical PETROLATUM with Branch DRESSING) 4 Kerlix X 4 " Bndg wrap and change daily levoFLOXaci 2020- No [id number] 500mg Take 20 mL Univers n 250 mg/10 11-13 by mouth ity of mL solution 00:00: 04:59 every 24 [place] 00 :00 (twenty-fo Medical ur) hours Branch for 7 days. levoFLOXaci 2020-2020- No [id number] 500mg Take 20 mL Univers n 250 mg/10 11-13 by mouth ity of mL solution 00:00: 04:59 every 24 [place] 00 :00 (twenty-fo Medical ur) hours Branch for 7 days. Vancomycin 2020-0 202- No 750mg 750 mg, IV Univers 750 mg in 11-12 Piggyback, ity of NaCl 0.9% 23:30: 15:50 Q12H ABX, [place] (NS) 250 mL 00 :11 First dose Me dical VIAL-MATE on Mon Branch 11/12/20 at 1830, Until Discontinu ed, 250 mL
R corina for Anti-Infec tive: Documented Infection< br>Documen cristhian Infection Site: Skin / Soft Tissue
Duration of Therapy: 7 days mupirocin 2020- No Univers (BACTROBAN 11-11 ity of OINT) 2 % 16:00: 23:05 [place] skin 00 :21 Medical ointment Branch ceFEPIme 2020- No 1000mg 1,000 mg, U nivers (MAXIPIME) 11-11 IV ity of 1,000 mg in 02:00: 15:50 Piggyback, [place] NaCl 0.9% 00 :11 Q12H ABX, Medic al (NS) 50 mL First dose [facility] MINI-BAG on 11/10/20 at 2100, Until Discontinu ed, 50 mL
R corina for Anti-Infec tive: Documented Infection< br>Documen cristhian Infection Site: Blood
D uration of Therapy: 7 days vancomycin 2020- No 500mg 500 mg, IV Univers (VANCOCIN) 11-10 Piggyback, it y of 500 mg in 23:30: 13:49 Q12H ABX, [place] NaCl 0.9% 00 :27 First dose Medi [place]anto (NS) 100 mL on Sat Branch MINI-BAG 11/10/20 at 1830, Until Discontinu ed, 100 mL
R corina for Anti-Infec tive: Documented Infection< br>Documen cristhian Infection Site: Skin / Soft Tissue
Duration of Therapy: 7 days iopamidol 2020- No [id number] 100mL 100 mL, Univers (ISOVUE 11-10 Intravenou ity o f 370-500 mL) 19:15: 17:45 s, ONCE, 1 [place] injection 00 :00 dose, Sat Medic al 100 mL 11/10/20 at Branch 1415, Routine amLODIPine Yes 5mg 5 mg, Univer s (NORVASC) 11-10 Oral, ity of tablet 5 mg 14:00: DAILY, [place] 00 First dose Medical on [facility] Branch 11/10/20 at 0900, Until Discontinu ed, Routine enoxaparin Yes 40mg 40 mg, Unive rs (LOVENOX) 11-10 Subcutaneo ity of injection 14:00: us, DAILY, [place] 40 mg 00 First dose Medical on [facility] Branch 11/10/20 at 0900, Until Discontinu ed, Routine ipratropium Yes 3mL 3 mL, Unive rs -albuteroL 11-10 Inhalation ity of (DUONEB) 13:00: , QID, [place] 0.5 mg-3 00 First dose Medic al mg(2.5 mg on [facility] base)/3 mL 11/10/20 at nebulizer 0800, solution 3 Until mL Discontinu ed, Routine levoFLOXaci No 500mg 500 mg, IV Univers n in D5W 11-10 Piggyback, ity of (LEVAQUIN) 11:45: 15:48 Administer [place] 500 mg/100 00 :36 over 60 Medica l mL Minutes, Branch Piggyback Q24H ABX, 500 mg First dose on [facility] 11/10/20 at 0645, Until Discontinu ed, CEM
Re ason for Anti-Infec tive: Documented Infection< br>Documen cristhian Infection Site: Respirator y
Durat ion of Therapy: 7 days vancomycin No 15mg/kg 500 mg U nivers (VANCOCIN) 11-10 (rounded ity of 500 mg in 11:30: 12:19 from 652.5 [place] NaCl 0.9% 00 :00 mg = 15 Medical (NS) 500 mL mg/kg Branch piggyback ?43.5 kg), IV Piggyback, Q12H ABX, First dose on [facility] 11/10/20 at 0630, Until Discontinu ed, 500 mL
Reas on for Anti-Infec tive: Documented Infection< br>Docu mented Infection Site: Skin / Soft Tissue
Duration of Therapy: 7 days levothyroxi Yes 75ug 75 mcg, Uni vers ne 11-10 Oral, ity of (SYNTHROID) 11:00: QAM-0600, [place] tablet 75 00 First dose Medi santo mcg on Sat Branch 11/10/20 at 0600, Until Discontinu ed, Routine piperacilli 2020- No 3.375g 3.375 g, Univers n-tazobacta 11-10 IV ity of m (ZOSYN) 10:45: 10:13 Piggyback, [place] 3.375 g in 00 :00 ONCE, 1 Medica l NaCl 0.9% dose, Sat Branc h (NS) 100 mL 11/10/20 at MINI-BAG 0545, 100 mL
Reas on for Anti-Infec tive: Documented Infection< br>Documen cristhian Infection Site: Skin / Soft Tissue
Duration of Therapy: Other (see Comments) aspirin No 325mg 325 mg, Unive rs tablet 325 11-10 Oral, ity of mg 10:25: 14:04 Q6HPRN, [place] 14 :54 Starting Medical 11/10/20 Branch at 0525, Until 11/12/20 at 0904, Routine, Pain (scale 4-6) acetaminoph 2020- No 15mg/kg 608 mg Univers en 11-10 (rounded ity of (TYLENOL) 10:15: 09:02 from 612 Juni as 160 mg/5 mL 00 :00 mg = 15 Medic al liquid 608 mg/kg Branch mg ?40.8 kg), Oral, ONCE, 1 dose, 11/10/20 at 0515, CEM ipratropium Yes 3mL 3 mL, Unive rs -albuteroL 11-10 Inhalation ity of (DUONEB) 10:05: , QIDPRN, [place] 0.5 mg-3 49 Starting Medical mg(2.5 mg 11/10/20 Bran ch base)/3 mL at 0505, nebulizer Until solution 3 Discontinu mL ed, Routine, Wheezing, Shortness of Breath ondansetron Yes 4mg 4 mg, Slow Univers (ZOFRAN 11-10 IV Push, ity of (PF)) 10:05: Q6HPRN, [place] injection 4 13 Starting Medi santo mg 11/10/20 Branch at 0505, Until Discontinu ed, Routine, Nausea and Vomiting (N/V) acetaminoph Yes 650mg 650 mg, Un jacinda en 11-10 Oral, ity of (TYLENOL) 10:04: Q6HPRN, [place] tablet 650 55 Starting Medic al mg 11/10/20 Branch at 0504, Until Discontinu ed, Routine, Pain (scale 1-3), Temp > 38.5 C acetaminoph No 325mg 325 mg, U nivers en 11-10 Oral, ity of (TYLENOL) 10:00: 09:02 ONCE, 1 [place] 160 mg/5 mL 00 :00 dose, Sat Med ical liquid 325 11/10/20 at Bran ch mg 0500, CEM Vital Signs Vital Name Observation Time Observation Value Comments Source WEIGHT 2020-12-19 05:06:00 45.224 kg WEIGHT 2020-12-18 05:26:00 44.725 kg WEIGHT 2020-12-17 04:30:00 43.591 kg WEIGHT 2020-12-16 04:09:00 44.09 kg HEIGHT 2020-12-15 04:00:00 167.6 cm WEIGHT 2020-12-15 04:00:00 42.8 kg WEIGHT 2020-12-19 05:06:00 45.224 kg WEIGHT 2020-12-18 05:26:00 44.725 kg WEIGHT 2020-12-17 04:30:00 43.591 kg WEIGHT 2020-12-16 04:09:00 44.09 kg HEIGHT 2020-12-15 04:00:00 167.6 cm WEIGHT 2020-12-15 04:00:00 42.8 kg Systolic blood 2020-12-04 20:26:00 114 mm[Hg] Univer sity of pressure [facility] Diastolic blood 2020-12-04 20:26:00 84 mm[Hg] [facility] Heart rate 2020-12-04 20:26:00 97 /min [facility] Body temperature 2020-12-04 20:26:00 37.33 Charlene Univ ersity of [place] [facility] Respiratory rate 2020-12-04 20:26:00 20 /min Univ ersity of [place] [facility] Oxygen saturation in 2020-12-04 20:26:00 96 /min University of Arterial blood by [facility] santo Pulse oximetry Branch Body height 2020-11-27 22:06:00 172.7 cm Universi ty of [place] [facility] Body weight 2020-11-27 22:06:00 44 kg Universi ty of [place] [facility] BMI 2020-11-27 22:06:00 14.75 kg/m2 Universi ty [facility] [place] [facility] Systolic blood 2020-12-04 20:26:00 114 mm[Hg] Univer sity of pressure [place] [facility] Diastolic blood 2020-12-04 20:26:00 84 mm[Hg] Unive rsity of pressure [place] [facility] Heart rate 2020-12-04 20:26:00 97 /min Universi ty of [place] [facility] Body temperature 2020-12-04 20:26:00 37.33 Charlene Univ ersity [facility] [place] [facility] Respiratory rate 2020-12-04 20:26:00 20 /min Univ ersity of [place] [facility] Oxygen saturation in 2020-12-04 20:26:00 96 /min University of Arterial blood by [facility] santo Pulse oximetry Branch Body height 2020-11-27 22:06:00 172.7 cm Universi ty of [place] [facility] Body weight 2020-11-27 22:06:00 44 kg Universi ty of [place] [facility] BMI 2020-11-27 22:06:00 14.75 kg/m2 Universi ty [facility] [place] [facility] Body temperature 2020-11-13 16:20:00 36.44 Charlene Univ [facility] [place] [facility] Respiratory rate 2020-11-13 16:20:00 21 /min Univ ersity [facility] [place] [facility] Oxygen saturation in 2020-11-13 15:59:00 96 /min University of Arterial blood by [facility] santo Pulse oximetry Branch Systolic blood 2020-11-13 13:00:00 147 mm[Hg] Univer sity of pressure [place] [facility] Diastolic blood 2020-11-13 13:00:00 99 mm[Hg] Unive rsity of pressure [facility] Heart rate 2020-11-13 13:00:00 80 /min Universi ty of [facility] Body weight 2020-11-13 08:30:00 52.617 kg Universi ty of [facility] BMI 2020-11-13 08:30:00 17.64 kg/m2 Universi ty of [facility] Body height 2020-11-10 10:26:00 172.7 cm Universi ty [facility] Body temperature 2020-11-13 16:20:[address] [facility] Respiratory rate 2020-11-13 16:20:00 21 /min [facility] O[facility] saturation in 2020-11-13 15:59:00 96 /min [facility] Arterial blood by [facility] Pulse oximetry Branch Systolic blood 2020-11-13 13:00:00 147 mm[Hg] Univer sity of [facility] Diastolic blood 2020-11-13 13:00:00 99 mm[Hg] Unive rsity of [facility] Heart rate 2020-11-13 13:00:00 80 /min Universi ty of [facility] Body weight 2020-11-13 08:30:00 52.617 kg Universi ty of [facility] BMI 2020-11-13 08:30:00 17.64 kg/m2 Universi ty of [facility] Body height 2020-11-10 10:26:00 172.7 cm [facility] Procedures Procedure Date / Time Performing Source Performed Clinician ALBUMIN 2020-12-04 Nelson Mayes [facility] [place] 10:05:00 Medical Branch MAGNESIUM 2020-12-04 Gerber [facility] xas 10:05:00 [facility] BASIC METABOLIC PANEL (NA, K, 2020-12-04 Nelson Mayes [facility] CL, CO2, GLUCOSE, BUN, 10:05:00 Medical B ran CREATININE, CA) CBC WITH DIFF 2020-12-[facility] Medical Branch MAGNESIUM 2020-12-03 Gerber [facility] [place] 11:08:00 Medical Branch BASIC METABOLIC PANEL (NA, K, 2020-12-03 Nelson Mayes [facility] CL, CO2, GLUCOSE, BUN, 11:08:00 Medical B ranch CREATININE, CA) CBC WITH DIFF 2020-12-03 Nelson Mayes [facility] xas 11:08:00 Medical Branch PHOSPHORUS 2020-12-01 [facility] xas 09:38:00 Medical Branch MAGNESIUM 2020-12-01 [facility] xa 09:38:00 Medical Branch BASIC METABOLIC PANEL (NA, K, 2020-12-01 [facility] CL, CO2, GLUCOSE, BUN, 09:38:00 Medical B ranch CREATININE, CA) CBC WITH DIFF 2020-12-01 [facility] xa 09:38:00 Medical Branch SPUTUM CULTURE 2020-11-29 [facility] AC PANEL 21 + LACTIC ACID 2020[facility]11-28 [facility] URINALYSIS 2020-11-28 [address] 09:43:00 [facility] PNEUMOCOCCAL ANTIGEN 2020-11-28 [facility] 09:[facility] MAGNESIUM 2020-11-28 [facility] 09:25[facility]00 Medical Branch HEPATIC FUNCTION PANEL 2020-11-28 [facility] ([id number]) (ALB,T.PRO,BILI 09:25:00 Medical Branch T,BU/BC,ALT,AST,ALK PHOS) BASIC METABOLIC PANEL (NA, K, 2020-11-28 JonDallinNadeem [facility] CL, CO2, GLUCOSE, BUN, 09:25:00 Medical B ranch CREATININE, CA) CBC WITH DIFF 2020-11-28 Jon [facility] 09:25:00 Medical Branch AC PANEL 21 + LACTIC ACID 2020-11-28 [facility] 09:25[facility] Medical Branch XR RIBS 4+ VW BILATERAL 2020-11-28 [facility] Medical Branch EXTERNAL PROVIDER RECORDS 2020-11-28 Doctor Unassigned, [facility] 05:01:00 [place] [facility] AC PANEL 20 + LACTIC ACID 2020-11-28 Yemi Ford [facility] 03:42:00 Medical Branch ACUTE CARE VENOUS BLOOD GAS 2020-11-28 Irma Webb [facility] 00:44:00 Medical Branch PROCALCITONIN 2020-11-27 Irma Webb [facility] xa 23:38:00 Medical Branch TROPONIN I 2020-11-27 Dallin WebbNadeem [facility] xa 23:00:00 Medical Branch ACUTE CARE ARTERIAL BLOOD GAS 2020-11-[address] [facility] 23:00:00 Medical Branch MRSA / MSSA SCREEN BY PCR, 2020-11-27 Irma Webb [facility] NARES 23:00:00 Medical Branch HB ECG ROUTINE & RHYTHM STRIP 2020-11-27 Irma Webb [facility] 22:54:06 Medical Branch BLOOD CULTURE SCREEN 2020-11-[address] [facility] 16:29:00 Medical Branch XR CHEST 1 VW 2020-11-[address] [facility] xa 16:23:02 Medical Branch COVID-19 (ID NOW RAPID 2020-11-[address] [facility] TESTING) 15:48:00 Medical Branch LAB ONLY COVID INTERPRETATION 2020-11-[address] [facility] 15:48:00 Medical Branch BLOOD CULTURE SCREEN 2020-11-[address] [facility] 15:44:00 Medical Branch GAMMA GLUTAMYLTRANSFERASE 2020-11-27 Irma Webb [facility] 15:44:00 Medical Branch TROPONIN I 2020-11-[address] [facility] 15:44:00 Medical Branch COMP. METABOLIC PANEL (01008) 2020-11-[address] [facility] 15:44:00 Medical Branch CBC WITH DIFF 2020-11-[address] [facility] 15:44:00 [facility] N-TERMINAL PRO-BNP 2020-11-27 Irma Webb [facility] 15:44:00 [facility] AC PANEL 21 + LACTIC ACID 2020-11-[address] [facility] 15:44:00 Medical Branch CONSENT/REFUSAL FOR DIAGNOSIS 2020-11-27 Doctor Unassigned, [facility] AND TREATMENT 15:18:15 [place] [facility] AGREEMENTS AUTHORIZATIONS AND 2020-11-27 Doctor Unassigned, [facility] IRREVOCABLE ASSIGNMENTS (FORM 05:01:00 [place] [facility] 2000) C-REACTIVE PROTEIN 2020-11-13 Luz Maria Jessica [facility] 00:29:00 [facility] N-TERMINAL PRO-BNP 2020-11-13 [facility] 00:29:00 [facility] PROCALCITONIN 2020-11-13 Luz Maria Jessica [facility] xa 00:29:00 [facility] TRANSTHORACIC ECHO (TTE) 2020-11-[address] [facility] COMPLETE 17:46:08 [facility] LOWER EXTREMITY ARTERIAL 2020-11-12 [facility] DUPLEX BILATERAL - BY 16:02:28 [facility] anch VASCULAR LAB BASIC METABOLIC PANEL (NA, K, 2020-11-12 Clarence Bach [facility] CL, CO2, GLUCOSE, BUN, 13:56:00 [facility] ran CREATININE, CA) CBC WITH DIFF 2020-11-12 Mikala [facility] xa 13:55:00 [facility] BLOOD CULTURE SCREEN 2020-11-12 Hugh [facility] 11:17:00 [facility] BLOOD CULTURE SCREEN 2020-11-12 Hugh [facility] 11:12:00 [facility] THYROID STIMULATING HORMONE 2020-11-11 Amanda Glez [facility] 22:51:00 [facility] VANCOMYCIN TROUGH 2020-11-11 [facility] 22:51[facility] CT THORAX W CONTRAST 2020-11-10 Jeremiah [facility] 18:02:33 Medical Branch URINALYSIS 2020-11-10 Vidhya Fuentes [facility] ex 09:14:00 Medical Branch XR CHEST 1 VW 2020-11-10 Vidhya Fuentes [facility] ex 08:57:43 Medical Branch BLOOD CULTURE SCREEN 2020-11-10 Vidhya Fuentes [facility] 08:45:00 Medical Branch BLOOD CULTURE WORKUP 2020-11-10 Vidhya Fuentes [facility] 08:45:00 Medical Branch GRAM NEGATIVE BLOOD PATHOGENS 2020-11-10 Vidhya Fuentes [facility] DNA PROBE-AEROBIC 08:45:00 Medical Branch BLOOD CULTURE SCREEN 2020-11-10 Vidhya Fuentes [facility] 08:43:00 Medical Branch LACTIC ACID WHOLE BLOOD 2020-11-[address] [facility] 08:43:00 Medical Branch BLOOD CULTURE WORKUP 2020-11-10 Vidhya Fuentes [facility] 08:43:00 Medical Branch FREE T4 2020-11-10 [facility] 08:42:00 Medical Branch COMP. METABOLIC PANEL ([id number]) 2020-11-10 Vidhya Fuentes [facility] 08:42:00 Medical Branch CBC WITH DIFF 2020-11-10 Vidhya Fuentes [facility] ex 08:42:00 Medical Branch FREE T3 2020-11-10 [facility] 08:42:00 Medical Branch COVID-19 (ID NOW RAPID 2020-11-10 Vidhya Fuentes [facility] TESTING) 08:42:00 Medical Branch LAB ONLY COVID INTERPRETATION 2020-11-10 Vidhya Fuentes [facility] 08:42:00 Medical Branch HB ECG ROUTINE & RHYTHM STRIP 2020-11-10 Vidhya Fuentes [facility] 08:40:08 Medical Branch NOTICE OF PRIVACY PRACTICES 2020-11-10 Doctor Unassigned, [facility] 08:36:16 [place] [facility] CONSENT/REFUSAL FOR DIAGNOSIS 2020-11-10 Doctor Unassigned, [facility] AND TREATMENT 08:35:48 [place] [facility] Plan of Care Planned Activity Planned Date Details Comments Source Future Scheduled 2022-02-06 INFLUENZA VACCINE (#1) [facility] 00:[facility]:00 [code = INFLUENZA Medical Ce nter VACCINE (#1)] Future Scheduled 2021-06-[address] [facility] 00:00:00 (12+) [code = Medical Center DEPRESSION SCREENING (12+)] Future Scheduled 2021-06-08 FALLS RISK SCREENING [facility] 00:00:00 [code = FALLS RISK Medical C enter SCREENING] Future Scheduled 2015-01-[address] [facility] 00:00:00 WELLNESS (YEAR 2 or Medical Center FIRST YEAR if no IPPE) [code = MEDICARE ANNUAL WELLNESS (YEAR 2 or FIRST YEAR if no IPPE)] Future Scheduled 2014 PNEUMOCOCCAL 65+ YRS ([address] [facility] 00:00:00 - PCV) [code = Medical Cente r PNEUMOCOCCAL 65+ YRS (1 - PCV)] Future Scheduled 1999 SHINGLES VACCINES ([address] [facility] 00:00:00 2) [code = SHINGLES Medical Center VACCINES (1 of 2)] Future Scheduled 1968-01-25 DTAP/TDAP/TD VACCINES [facility] 00:00:00 (1 - Tdap) [code = Medical C enter DTAP/TDAP/TD VACCINES (1 - Tdap)] Future Scheduled 1967 HEPATITIS C SCREENING [facility] 00:00:00 [code = HEPATITIS C Medical Center SCREENING] Future Scheduled 1950 COVID-19 VACCINE (#1) [facility] 00:00:00 [code = COVID-[address] VACCINE (#1)] Future Scheduled 1950 Screening for malignant [facility] 00:00:00 neoplasm of colon Medical Ce nter (procedure) [code = 344071388] Future Scheduled 1949 Screening for malignant [facility] 00:00:00 neoplasm of colon Medical Ce nter (procedure) [code = 096610862] Future Scheduled 1950 Sigmoidoscopy [code = [facility] 00:00:00 Sigmoidoscopy] Medical Cente r Future Scheduled 1949 Screening for malignant [facility] 00:00:00 neoplasm of breast Medical C enter (procedure) [code = 095081838] Future Scheduled 1950 CT Colonography (combo) [facility] 00:00:00 [code = CT Colonography [facility] (combo)] Future Scheduled 1949 Screening for malignant [facility] 00:00:00 neoplasm of colon Medical Ce nter (procedure) [code = 505157431] Future Scheduled 1949 Screening for malignant [facility] 00:00:00 neoplasm of colon Medical Ce nter (procedure) [code = 292366828] Future Scheduled 1950 DXA SCAN [code = DXA [facility] 00:00:00 SCAN] Medical Center Encounters Start End Encounter Admission Attending Care Care Encounter Source Date/Time Date/Time Type Type Clinicians Facility Department ID 2020-12-14 Inpatient ER ADHI, [facility] Medical ICU [id number] [facility] 20:10:00 CHAO 2020-12-14 2020-12-14 Outpatient [facility] [id number] [facility] 00:00:00 23:59:00 [facility] 2020-12-05 2020-12-05 Transition Radha Paula [id number] [facility] 00:00:00 00:00:00 of Care Lele Liz Hanley [id number] ity [place].[address] [place] [id number] [facility] 403 Branch 2020-12-05 2020-12-05 Transition Radha Paula [id number] 00:00:00 00:00:00 of Care Lele Briggsy [id number] [place] 4.2.7.2.686 [id number] [facility] 2020-11-27 2020-12-[address] [facility] [address] 1.2.840.1 14 [id number] [facility] 10:20:00 19:30:00 Encounter Kashif Strong [id number] [facility] 4.2.7.[address] [place] [id number] [facility] 100 Branch 2020-11-27 2020-12-[address] 1.2.840.1 14 [id number] 10:20:00 19:30:00 Encounter Kashif Strong [place] [id number] Cris Wendi [facility] 4.2.7.2 .686 [id number] 100 2020-11-27 2020-11-[address] [facility] ERT [id number] Univers 10:20:00 10:20:00 ity of [facility] 2020-11-27 2020-11-27 Orders Doctor RANGEL 1.2.840.114 [id number] Univers 00:00:00 00:00:00 Only Unassigned, MAGDA [id number] ity of [place] [facility] 4.2.7.2.[id number] [facility] 009 Branch 2020-11-27 2020-11-27 Orders Doctor RANGEL 1.2.840.114 [id number] 00:00:00 00:00:00 Only Unassigned, MAGDA [id number] [place] [facility] 4.2.7.2.686 [id number] 009 2020-11-14 2020-11-14 Transition Radha Paula 1.2.840.114 [id number] Univers 00:00:00 00:00:00 of Care Lele Briggsy [id number] ity [place] [place] [id number] [facility] 403 Branch 2020-11-14 2020-11-14 Transition Radha Paula 1.2.840.114 [id number] 00:00:00 00:00:00 of Care eLle Briggsy [id number] [place] 4.2.7.2.686 [id number] 403 2020-11-10 2020-11-13 Hospital Vidhya Fuentes [facility] 1.2.840. 114 [id number] Univers 03:31:00 16:48:00 Encounter Clarence Bach [id number] ity of [place] 4.2.7.2.686 [facility] [id number] [place] [address] Branch 2020-11-10 2020-11-13 [facility] Vidhya Fuentes [facility] 1.2.840. 114 [id number] 03:31:00 16:48:00 Encounter Clarence Bach [id number] Amanda Glez [address] [place] [address] [id number] [facility] 2020-11-10 2020-11-10 Emergency X [facility] ERT [id number] Univers 03:31:00 03:31:00 [facility] Results Test Description Test Time Test Comments Results Result Comments Source POCT-GLUCOSE METER 2020-12-19 12:15:00 Test Item Value Reference Range Interpretation Comme nts POC-GLUCOSE METER (BEAKER) 122 mg/dL 70-110 H : TESTED AT [facility] [address] [facility] (test code = 1538) [facility], [address]: Interactive Graphic Designer/Techni ethel ID = [id number] for BALAJI HURT POCT-GLUCOSE [id number] 07:43:00 Test Item Value Reference Range Interpretation Comments POC-GLUCOSE METER 81 mg/dL 70-110 : TESTED A T [facility] [address] (BEAKER) (test code = [facility] [place] [facility], 1538) [address]: Interactive Graphic Designer/Techni ethel ID = [id number] for BALAJI JACK COMPREHENSIVE METABOLIC [id number] 07:11:00 Test Item Value Reference Range Interpretation Comments TOTAL PROTEIN 5.7 gm/dL 6.0-8.3 L (BEAKER) (test code = 770) ALBUMIN (BEAKER) 2.9 g/dL 3.5-5.0 L (test code = 1145) ALKALINE PHOSPHATASE 97 U/L 40-150 (BEAKER) (test code = 346) BILIRUBIN TOTAL 0.3 mg/dL 0.2-1.2 (BEAKER) (test code = 377) SODIUM (BEAKER) (test 141 meq/L 136-145 code = 381) POTASSIUM (BEAKER) 4.3 meq/L 3.5-5.1 (test code = 379) CHLORIDE (BEAKER) 98 meq/L 98-107 (test code = 382) CO2 (BEAKER) (test 37 meq/L 22-29 H code = 355) BLOOD UREA NITROGEN 10 mg/dL 7-21 (BEAKER) (test code = 354) CREATININE (BEAKER) 0.57 mg/dL 0.57-1.25 (test code = 358) GLUCOSE RANDOM 79 mg/dL 70-105 (BEAKER) (test code = 652) CALCIUM (BEAKER) 8.7 mg/dL 8.4-10.2 (test code = 697) AST (SGOT) (BEAKER) 12 U/L 5-34 (test code = 353) ALT (SGPT) (BEAKER) 10 U/L 6-55 (test code = 347) EGFR (BEAKER) (test 105 ESTIMATE D GFR IS code = 1092) mL/min/1.73 sq NOT ACCURA TE m CREATININE CLEARANCE IN PREDICTING GLOMERULAR FILTRATION RATE . ESTIMATED GFR I S NOT APPLICABLE FOR DIALYSIS PATIEN TS. Interactive Graphic Designer ID - KEVIN [id number] 07:11:00 Test Item Value Reference Range Interpretation Comments MAGNESIUM (BEAKER) (test code = 2.3 mg/dL 1.6-2.6 627) Interactive Graphic Designer ID - KEVIN [id number] 07:11:00 Test Item Value Reference Range Interpretation Comments PHOSPHORUS (BEAKER) (test code = 3.8 mg/dL 2.3-4.7 604) Interactive Graphic Designer ID - KEVIN MCALCIUM, [id number] 06:48:00 Test Item Value Reference Range Interpretation Comments CALCIUM IONIZED (BEAKER) (test 1.25 mmol/L 1.12-1.27 code = 698) PH, BLOOD (BEAKER) (test code = 7.29 1810) CBC W/PLT COUNT & AUTO [id number] 06:45:00 Test Item Value Reference Range Interpretation Comments WHITE BLOOD CELL COUNT (BEAKER) 8.3 K/ L 3.5-10.5 (test code = 775) RED BLOOD CELL COUNT (BEAKER) 4.14 M/ L 3.93-5.22 (test code = 761) HEMOGLOBIN (BEAKER) (test code = 11.6 GM/DL 11.2-15.7 410) HEMATOCRIT (BEAKER) (test code = 39.6 % 34.1-44.9 411) MEAN CORPUSCULAR VOLUME (BEAKER) 95.7 fL 79.4-94.8 H (test code = 753) MEAN CORPUSCULAR HEMOGLOBIN 28.0 pg 25.6-32.2 (BEAKER) (test code = 751) MEAN CORPUSCULAR HEMOGLOBIN CONC 29.3 GM/DL 32.2-35.5 L (BEAKER) (test code = 752) RED CELL DISTRIBUTION WIDTH 15.9 % 11.7-14.4 H (BEAKER) (test code = 412) PLATELET COUNT (BEAKER) (test 261 K/CU MM 150-450 code = 756) MEAN PLATELET VOLUME (BEAKER) 10.0 fL 9.4-12.3 (test code = 754) NUCLEATED RED BLOOD CELLS 0 /100 WBC 0-0 (BEAKER) (test code = 413) NEUTROPHILS RELATIVE PERCENT 66 % (BEAKER) (test code = 429) LYMPHOCYTES RELATIVE PERCENT 17 % (BEAKER) (test code = 430) MONOCYTES RELATIVE PERCENT 15 % (BEAKER) (test code = 431) EOSINOPHILS RELATIVE PERCENT 2 % (BEAKER) (test code = 432) BASOPHILS RELATIVE PERCENT 0 % (BEAKER) (test code = 437) NEUTROPHILS ABSOLUTE COUNT 5.42 K/ L 1.56-6.13 (BEAKER) (test code = 670) LYMPHOCYTES ABSOLUTE COUNT 1.41 K/ L 1.18-3.74 (BEAKER) (test code = 414) MONOCYTES ABSOLUTE COUNT (BEAKER) 1.25 K/ L 0.24-0.36 H (test code = 415) EOSINOPHILS ABSOLUTE COUNT 0.14 K/ L 0.04-0.36 (BEAKER) (test code = 416) BASOPHILS ABSOLUTE COUNT (BEAKER) 0.01 K/ L 0.01-0.08 (test code = 417) IMMATURE GRANULOCYTES-RELATIVE 1 % 0-1 PERCENT (BEAKER) (test code = 2801) POCT-GLUCOSE [id number] 21:16:00 Test Item Value Reference Range Interpretation Comments POC-GLUCOSE METER 103 mg/dL 70-110 : TESTED A T [facility] 67[address] (BEAKER) (test code = [facility], 1538) [address]: Interactive Graphic Designer/Techni ethel ID = [id number] for PI GIL METZ POCT-GLUCOSE [id number] 17:06:00 Test Item Value Reference Range Interpretation Comments POC-GLUCOSE METER 137 mg/dL 70-110 H : TESTED A T [facility] 6720 (BEAKER) (test code = [facility], [facility]8) [address]: Interactive Graphic Designer/Techni ethel ID = [id number] for OR PHEY, BALAJI POCT-GLUCOSE [id number] 12:31:00 Test Item Value Reference Range Interpretation Comments POC-GLUCOSE METER 121 mg/dL 70-110 H : TESTED A T [facility] 6720 (BEAKER) (test code = [facility], [facility]) [address]: Interactive Graphic Designer/Techni ethel ID = [id number] for OR PHEY, BALAJI POCT-GLUCOSE [id number] 08:27:00 Test Item Value Reference Range Interpretation Comments POC-GLUCOSE METER 81 mg/dL 70-110 : TESTED A T [facility] 6720 (BEAKER) (test code = [facility], [facility]) [address]18[address]: Interactive Graphic Designer/Techni ethel ID = [id number] for ORPH EY, BALAJI COMPREHENSIVE METABOLIC [id number] 07:14:00 Test Item Value Reference Range Interpretation Comments TOTAL PROTEIN 5.6 gm/dL 6.0-8.3 L (BEAKER) (test code = 770) ALBUMIN (BEAKER) 2.7 g/dL 3.5-5.0 L (test code = 1145) ALKALINE PHOSPHATASE 90 U/L 40-150 (BEAKER) (test code = 346) BILIRUBIN TOTAL 0.3 mg/dL 0.2-1.2 (BEAKER) (test code = 377) SODIUM (BEAKER) (test 143 meq/L 136-145 code = 381) POTASSIUM (BEAKER) 4.1 meq/L 3.5-5.1 (test code = 379) CHLORIDE (BEAKER) 100 meq/L 98-107 (test code = 382) CO2 (BEAKER) (test 35 meq/L 22-29 H code = 355) BLOOD UREA NITROGEN 16 mg/dL 7-21 (BEAKER) (test code = 354) CREATININE (BEAKER) 0.58 mg/dL 0.57-1.25 (test code = 358) GLUCOSE RANDOM 77 mg/dL 70-105 (BEAKER) (test code = 652) CALCIUM (BEAKER) 8.6 mg/dL 8.4-10.2 (test code = 697) AST (SGOT) (BEAKER) 15 U/L 5-34 (test code = 353) ALT (SGPT) (BEAKER) 10 U/L 6-55 (test code = 347) EGFR (BEAKER) (test 102 ESTIMATE D GFR IS code = 1092) mL/min/1.73 sq NOT ACCURA TE m CREATININE CLEARANCE IN PREDICTING GLOMERULAR FILTRATION RATE . ESTIMATED GFR I S NOT APPLICABLE FOR DIALYSIS PATIEN TS. Interactive Graphic Designer ID - PIKULDEEP [id number] 07:14:00 Test Item Value Reference Range Interpretation Comments MAGNESIUM (BEAKER) (test code = 2.0 mg/dL 1.6-2.6 627) Interactive Graphic Designer ID - LEONCIO [id number] 07:14:00 Test Item Value Reference Range Interpretation Comments PHOSPHORUS (BEAKER) (test code = 3.1 mg/dL 2.3-4.7 604) Interactive Graphic Designer ID - PIKULDEEP LCALCIUM, [id number] 06:30:00 Test Item Value Reference Range Interpretation Comments CALCIUM IONIZED (BEAKER) (test 1.22 mmol/L 1.12-1.27 code = 698) PH, BLOOD (BEAKER) (test code = 7.32 1810) CBC W/PLT COUNT & AUTO [id number] 06:18:00 Test Item Value Reference Range Interpretation Comments WHITE BLOOD CELL COUNT (BEAKER) 9.1 K/ L 3.5-10.5 (test code = 775) RED BLOOD CELL COUNT (BEAKER) 4.00 M/ L 3.93-5.22 (test code = 761) HEMOGLOBIN (BEAKER) (test code = 11.2 GM/DL 11.2-15.7 410) HEMATOCRIT (BEAKER) (test code = 38.3 % 34.1-44.9 411) MEAN CORPUSCULAR VOLUME (BEAKER) 95.8 fL 79.4-94.8 H (test code = 753) MEAN CORPUSCULAR HEMOGLOBIN 28.0 pg 25.6-32.2 (BEAKER) (test code = 751) MEAN CORPUSCULAR HEMOGLOBIN CONC 29.2 GM/DL 32.2-35.5 L (BEAKER) (test code = 752) RED CELL DISTRIBUTION WIDTH 15.9 % 11.7-14.4 H (BEAKER) (test code = 412) PLATELET COUNT (BEAKER) (test 270 K/CU MM 150-450 code = 756) MEAN PLATELET VOLUME (BEAKER) 9.8 fL 9.4-12.3 (test code = 754) NUCLEATED RED BLOOD CELLS 0 /100 WBC 0-0 (BEAKER) (test code = 413) NEUTROPHILS RELATIVE PERCENT 69 % (BEAKER) (test code = 429) LYMPHOCYTES RELATIVE PERCENT 14 % (BEAKER) (test code = 430) MONOCYTES RELATIVE PERCENT 15 % (BEAKER) (test code = 431) EOSINOPHILS RELATIVE PERCENT 1 % (BEAKER) (test code = 432) BASOPHILS RELATIVE PERCENT 0 % (BEAKER) (test code = 437) NEUTROPHILS ABSOLUTE COUNT 6.28 K/ L 1.56-6.13 H (BEAKER) (test code = 670) LYMPHOCYTES ABSOLUTE COUNT 1.30 K/ L 1.18-3.74 (BEAKER) (test code = 414) MONOCYTES ABSOLUTE COUNT (BEAKER) 1.37 K/ L 0.24-0.36 H (test code = 415) EOSINOPHILS ABSOLUTE COUNT 0.08 K/ L 0.04-0.36 (BEAKER) (test code = 416) BASOPHILS ABSOLUTE COUNT (BEAKER) 0.01 K/ L 0.01-0.08 (test code = 417) IMMATURE GRANULOCYTES-RELATIVE 1 % 0-1 PERCENT (BEAKER) (test code = 2801) POCT-GLUCOSE [id number] 21:58:00 Test Item Value Reference Range Interpretation Comments POC-GLUCOSE METER 206 mg/dL 70-110 H : TESTED A T [facility] 6720 (BEAKER) (test code = [place], 1538) [address]: Interactive Graphic Designer/Techni ethel ID = [id number] for Re yes, Sairy POCT-GLUCOSE [id number] 17:15:00 Test Item Value Reference Range Interpretation Comments POC-GLUCOSE METER 114 mg/dL 70-110 H : TESTED A T [facility] 6720 (BEAKER) (test code = [facility] Nilay [facility], 1538) [address]: Interactive Graphic Designer/Techni ethel ID = [id number] for BEATRIZ NEWMAN, ULISES POCT-GLUCOSE [id number] 12:21:00 Test Item Value Reference Range Interpretation Comments POC-GLUCOSE METER 135 mg/dL 70-110 H : [facility] T [facility] 6720 [facility] (test code = [facility], 1538) [address]: Interactive Graphic Designer/Techni ethel ID = [id number] for BEATRIZ NEWMAN, ULISES POCT-GLUCOSE [id number] 07:54:00 Test Item Value Reference Range Interpretation Comments POC-GLUCOSE METER 124 mg/dL 70-110 H : TESTED A T [facility] 6720 ([facility] (test code = [facility], 1538) 82465: Interactive Graphic Designer/Techni ethel ID = [id number] for BEATRIZ NEWMAN, ULISES RAD, CHEST, 1 VIEW, NON [id number] 07:15:00Reason for exam:->eval PNXShould this be performed at the bedside?->Yes [facility] : 1950 Sex: FFINAL REPORT RAD, CHEST, 1 VIEW, NON DEPT INDICATION: eval PNX COMPARISON: Prior day's exam FINDINGS: Portable frontal view of the chest. IMPRESSION: Support Lines: Right thoracostomy tube has been removed. Lungs and pleura: No consolidation. Trace left effusion. No pneumothorax.Heart and mediastinum: Stable contours. Additional findings: None. Signed: JR Evans Robert [facility] Verified Date/Time: 12/17/2020 07:15:57 Reading Location: [facility] Reading Room CALCIUM, [id number] 06:45:00 Test Item Value Reference Range Interpretation Comments CALCIUM IONIZED (BEAKER) (test 1.23 mmol/L 1.12-1.27 code = 698) PH, BLOOD (BEAKER) (test code = 7.39 1810) COMPREHENSIVE METABOLIC [id number] 06:36:00 Test Item Value Reference Range Interpretation Comments TOTAL PROTEIN 5.5 gm/dL 6.0-8.3 L (BEAKER) (test code = 770) ALBUMIN (BEAKER) 2.8 g/dL 3.5-5.0 L (test code = 1145) ALKALINE PHOSPHATASE 96 U/L 40-150 (BEAKER) (test code = 346) BILIRUBIN TOTAL 0.3 mg/dL 0.2-1.2 (BEAKER) (test code = 377) SODIUM (BEAKER) (test 143 meq/L 136-145 code = 381) POTASSIUM (BEAKER) 3.8 meq/L 3.5-5.1 (test code = 379) CHLORIDE (BEAKER) 101 meq/L 98-107 (test code = 382) CO2 (BEAKER) (test 32 meq/L 22-29 H code = 355) BLOOD UREA NITROGEN 21 mg/dL 7-21 (BEAKER) (test code = 354) CREATININE (BEAKER) 0.60 mg/dL 0.57-1.25 (test code = 358) GLUCOSE RANDOM 102 mg/dL 70-105 (BEAKER) (test code = 652) CALCIUM (BEAKER) 8.9 mg/dL 8.4-10.2 (test code = 697) AST (SGOT) (BEAKER) 15 U/L 5-34 (test code = 353) ALT (SGPT) (BEAKER) 10 U/L 6-55 (test code = 347) EGFR (BEAKER) (test 99 mL/min/1.73 ESTIMA CRISTHIAN GFR IS code = 1092) sq m NOT ACCURATE CREATININE CLEARANCE IN PREDICTING GLOMERULAR FILTRATION RATE . ESTIMATED GFR I S NOT APPLICABLE FOR DIALYSIS PATIEN TS. Interactive Graphic Designer ID - LATA [id number] 06:36:00 Test Item Value Reference Range Interpretation Comments MAGNESIUM (BEAKER) (test code = 2.0 mg/dL 1.6-2.6 627) Interactive Graphic Designer ID Juan GUIDO [id number] 06:36:00 Test Item Value Reference Range Interpretation Comments PHOSPHORUS (BEAKER) (test code = 2.6 mg/dL 2.3-4.7 604) Interactive Graphic Designer ID Juan GUIDO WCBC W/PLT COUNT & AUTO [id number] 05:59:00 Test Item Value Reference Range Interpretation Comments WHITE BLOOD CELL COUNT (BEAKER) 10.4 K/ L 3.5-10.5 (test code = 775) RED BLOOD CELL COUNT (BEAKER) 4.00 M/ L 3.93-5.22 (test code = 761) HEMOGLOBIN (BEAKER) (test code = 11.3 GM/DL 11.2-15.7 410) HEMATOCRIT (BEAKER) (test code = 37.2 % 34.1-44.9 411) MEAN CORPUSCULAR VOLUME (BEAKER) 93.0 fL 79.4-94.8 (test code = 753) MEAN CORPUSCULAR HEMOGLOBIN 28.3 pg 25.6-32.2 (BEAKER) (test code = 751) MEAN CORPUSCULAR HEMOGLOBIN CONC 30.4 GM/DL 32.2-35.5 L (BEAKER) (test code = 752) RED CELL DISTRIBUTION WIDTH 16.0 % 11.7-14.4 H (BEAKER) (test code = 412) PLATELET COUNT (BEAKER) (test 265 K/CU MM 150-450 code = 756) MEAN PLATELET VOLUME (BEAKER) 9.9 fL 9.4-12.3 (test code = 754) NUCLEATED RED BLOOD CELLS 0 /100 WBC 0-0 (BEAKER) (test code = 413) NEUTROPHILS RELATIVE PERCENT 74 % (BEAKER) (test code = 429) LYMPHOCYTES RELATIVE PERCENT 12 % (BEAKER) (test code = 430) MONOCYTES RELATIVE PERCENT 13 % (BEAKER) (test code = 431) EOSINOPHILS RELATIVE PERCENT 0 % (BEAKER) (test code = 432) BASOPHILS RELATIVE PERCENT 0 % (BEAKER) (test code = 437) NEUTROPHILS ABSOLUTE COUNT 7.71 K/ L 1.56-6.13 H (BEAKER) (test code = 670) LYMPHOCYTES ABSOLUTE COUNT 1.28 K/ L 1.18-3.74 (BEAKER) (test code = 414) MONOCYTES ABSOLUTE COUNT (BEAKER) 1.33 K/ L 0.24-0.36 H (test code = 415) EOSINOPHILS ABSOLUTE COUNT 0.02 K/ L 0.04-0.36 L (BEAKER) (test code = 416) BASOPHILS ABSOLUTE COUNT (BEAKER) 0.01 K/ L 0.01-0.08 (test code = 417) IMMATURE GRANULOCYTES-RELATIVE 1 % 0-1 PERCENT (BEAKER) (test code = 2801) POCT-GLUCOSE [id number] 21:05:00 Test Item Value Reference Range Interpretation Comments POC-GLUCOSE METER 134 mg/dL 70-110 H : TESTED A T [facility] 6720 (BEAKER) (test code = [facility], 1538) 22780: Interactive Graphic Designer/Techni ethel ID = [id number] for Co rtez, Chela POCT-GLUCOSE [id number] 17:20:00 Test Item Value Reference Range Interpretation Comments POC-GLUCOSE METER 131 mg/dL 70-110 H : TESTED A T [facility] 6720 (BEAKER) (test code = [facility], 1538) 26219: Interactive Graphic Designer/Techni ethel ID = [id number] for BEATRIZ HN, ULISES POCT-GLUCOSE [id number] 12:22:00 Test Item Value Reference Range Interpretation Comments POC-GLUCOSE METER 159 mg/dL 70-110 H : TESTED A T [facility] 6720 (BEAKER) (test code = [facility], 153) 82732: Interactive Graphic Designer/Techni ethel ID = [id number] for BEATRIZ HN, ULISES RAD, CHEST, 1 VIEW, NON [id number] 07:50:00Reason for exam:->eval PNXShould this be performed at the bedside?->Yes [facility] : 1950 Sex: FFINAL REPORT History: Pneumothorax. FINDINGS: Compared with December 15, 2020, the heartand mediastinum are stable. As before, the heart is mildly enlarged. Lung volumes remain relatively low. Mild increased pulmonary vascularity is present without edema. Small left-sided pleural effusionand probable left lower lobe atelectasis persist. Right chest tube position is unchanged. No pneumothorax is identified. Bones are osteopenic but otherwise unremarkable. IMPRESSION: 1. Stable chest. Nopneumothorax is identified. Signed: Claire Pickering Verified Date/Time: 12/16/2020 07:50:48 Reading Location: [address] Transitional Reading Room POCT-GLUCOSE [id number] 07:42:00 Test Item Value Reference Range Interpretation Comments POC-GLUCOSE METER 124 mg/dL 70-110 H : TESTED A T [facility] 6720 (BEAKER) (test code = CAMILA [facility]ember[place] [facility], 1538) [id number]: Interactive Graphic Designer/Techni ethel ID = [id number] for ULISES SCHMITZ COMPREHENSIVE METABOLIC [id number] 05:29:00 Test Item Value Reference Range Interpretation Comments TOTAL PROTEIN 6.2 gm/dL 6.0-8.3 (BEAKER) (test code = 770) ALBUMIN (BEAKER) 3.1 g/dL 3.5-5.0 L (test code = 1145) ALKALINE PHOSPHATASE 118 U/L 40-150 (BEAKER) (test code = 346) BILIRUBIN TOTAL 0.3 mg/dL 0.2-1.2 (BEAKER) (test code = 377) SODIUM (BEAKER) (test 144 meq/L 136-145 code = 381) POTASSIUM (BEAKER) 3.7 meq/L 3.5-5.1 (test code = 379) CHLORIDE (BEAKER) 102 meq/L 98-107 (test code = 382) CO2 (BEAKER) (test 31 meq/L 22-29 H code = 355) BLOOD UREA NITROGEN 22 mg/dL 7-21 H (BEAKER) (test code = 354) CREATININE (BEAKER) 0.63 mg/dL 0.57-1.25 (test code = 358) GLUCOSE RANDOM 124 mg/dL 70-105 H (BEAKER) (test code = 652) CALCIUM (BEAKER) 8.8 mg/dL 8.4-10.2 (test code = 697) AST (SGOT) (BEAKER) 16 U/L 5-34 (test code = 353) ALT (SGPT) (BEAKER) 9 U/L 6-55 (test code = 347) EGFR (BEAKER) (test 93 mL/min/1.73 ESTIMA CRISTHIAN GFR IS code = 1092) sq m NOT ACCURATE CREATININE CLEARANCE IN PREDICTING GLOMERULAR FILTRATION RATE . ESTIMATED GFR I S NOT APPLICABLE FOR DIALYSIS PATIEN TS. Interactive Graphic Designer ID - LATA [id number] 05:29:00 Test Item Value Reference Range Interpretation Comments MAGNESIUM (BEAKER) (test code = 2.1 mg/dL 1.6-2.6 627) Interactive Graphic Designer ID - LATA [id number] 05:29:00 Test Item Value Reference Range Interpretation Comments PHOSPHORUS (BEAKER) (test code = 3.1 mg/dL 2.3-4.7 604) Interactive Graphic Designer ID - LATA WCBC (HEMOGRAM ONLY)2020-12-16 05:18:00 Test Item Value Reference Range Interpretation Comments WHITE BLOOD CELL COUNT (BEAKER) 11.7 K/ L 3.5-10.5 H (test code = 775) RED BLOOD CELL COUNT (BEAKER) 4.30 M/ L 3.93-5.22 (test code = 761) HEMOGLOBIN (BEAKER) (test code = 12.1 GM/DL 11.2-15.7 410) HEMATOCRIT (BEAKER) (test code = 40.9 % 34.1-44.9 411) MEAN CORPUSCULAR VOLUME (BEAKER) 95.1 fL 79.4-94.8 H (test code = 753) MEAN CORPUSCULAR HEMOGLOBIN 28.1 pg 25.6-32.2 (BEAKER) (test code = 751) MEAN CORPUSCULAR HEMOGLOBIN CONC 29.6 GM/DL 32.2-35.5 L (BEAKER) (test code = 752) RED CELL DISTRIBUTION WIDTH 15.9 % 11.7-14.4 H (BEAKER) (test code = 412) PLATELET COUNT (BEAKER) (test 261 K/CU MM 150-450 code = 756) MEAN PLATELET VOLUME (BEAKER) 10.4 fL 9.4-12.3 (test code = 754) NUCLEATED RED BLOOD CELLS 0 /100 WBC 0-0 (BEAKER) (test code = 413) RAD, CHEST, 1 VIEW, NON [id number] 03:15:00Reason for exam:- >pnuemothoraxShould this be performed at the bedside?->Yes [facility] : 1950 Sex: FFINAL REPORT Chest one view. Clinical history: pneumothorax Comparison: Chest radiograph 12/15/2020, 11:31 AM. Technique: A single frontal view of the chest was obtained. Findings:There is a right chest tube unchanged in position. There is a small loculated left pleural effusion with associated compressive atelectasis not significantly changed; superimposed left basilar pneumonia cannot be excluded. There is a small right pleural effusion. There is no definite pneumothorax.The cardiomediastinal contours are stable. Signed: Devante Sykesort Verified Date/Time: 12/16/2020 03:15:49 POCT-GLUCOSE [id number] 21:17:00 Test Item Value Reference Range Interpretation Comments POC-GLUCOSE METER 82 mg/dL 70-110 : TESTED A T [facility] 6720 ([facility]) (test code = [facility] Nilay [facility], 1538) 734[address]: Interactive Graphic Designer/Techni ethel ID = [id number] for Marcelo Fountainavia POCT-GLUCOSE [id number] 16:59:00 Test Item Value Reference Range Interpretation Comments POC-GLUCOSE METER 145 mg/dL 70-110 H : [facility]: [facility] (test code = TESTED AT [facility] 6720 1538) [facility], [address]: Interactive Graphic Designer/Techni ethel ID = [id number] for NATASHA MONTENEGRO, MEKHI POCT-GLUCOSE [id number] 13:21:00 Test Item Value Reference Range Interpretation Comments POC-GLUCOSE METER 116 mg/dL 70-110 H : TESTED A T [facility] 6720 ([facility]) (test code = [facility] Nilay [facility], 1538) 685[address]: Interactive Graphic Designer/Techni ethel ID = [id number] for Benton teenaMichaela RAD, CHEST, 1 VIEW, NON [id number] 12:07:00Reason for exam:->PTXShould this be performed at the bedside?->Yes [facility] : 1950 Sex: FFINAL REPORT Chest one view. Clinical history: PTX Comparison: December 15, 2020 Discussion: A frontal chest is provided. Cardiomediastinal contours are unchanged. Aorta appears tortuous. Aright chest tube is unchanged. There is a small left-sided pleural effusion, similar to the prior exam. Mild interstitial prominence is nonspecific. No pneumothorax. No acute bony pathology. Signed: Lucia Fernandezeport Verified Date/Time: 12/15/2020 12:07:16 Reading Location: [place] [id number] Ortho Consult Reading Room BLOOD GAS, [id number] 11:16:00 Test Item Value Reference Range Interpretation Comments PH VENOUS (BEAKER) (test code = 7.43 7.32-7.42 H 701) PCO2 VENOUS (BEAKER) (test code = 55 mm Hg 41-51 H 755) PO2 VENOUS (BEAKER) (test code = 26 mm Hg 25-40 702) O2 SATURATION VENOUS (BEAKER) 50.4 % 40.0-70.0 (test code = 703) HCO3 VENOUS (BEAKER) (test code = 35 mmol/L 21-29 H 705) BASE EXCESS VENOUS (BEAKER) (test 9.1 mmol/L -2.0-3.0 H code = 704) PATIENT TEMPERATURE (BEAKER) (test 36.4 code = 1818) FIO2 (BEAKER) (test code = 1819) 28.0 POCT-GLUCOSE [id number] 08:19:00 Test Item Value Reference Range Interpretation Comments POC-GLUCOSE METER 116 mg/dL 70-110 H : [facility] (test code [facility], = 1538) [address]: Interactive Graphic Designer/Techni ethel ID = [id number] for Feng delgado (contract), [facility] francisco javier COMPREHENSIVE METABOLIC [id number] 05:46:00 Test Item Value Reference Range Interpretation Comments TOTAL PROTEIN 5.4 gm/dL 6.0-8.3 L (BEAKER) (test code = 770) ALBUMIN (BEAKER) 2.7 g/dL 3.5-5.0 L (test code = 1145) ALKALINE PHOSPHATASE 112 U/L 40-150 (BEAKER) (test code = 346) BILIRUBIN TOTAL 0.3 mg/dL 0.2-1.2 (BEAKER) (test code = 377) SODIUM (BEAKER) (test 144 meq/L 136-145 code = 381) POTASSIUM (BEAKER) 3.7 meq/L 3.5-5.1 (test code = 379) CHLORIDE (BEAKER) 103 meq/L 98-107 (test code = 382) CO2 (BEAKER) (test 29 meq/L 22-29 code = 355) BLOOD UREA NITROGEN 19 mg/dL 7-21 (BEAKER) (test code = 354) CREATININE (BEAKER) 0.54 mg/dL 0.57-1.25 L (test code = 358) GLUCOSE RANDOM 115 mg/dL 70-105 H (BEAKER) (test code = 652) CALCIUM (BEAKER) 8.4 mg/dL 8.4-10.2 (test code = 697) AST (SGOT) (BEAKER) 17 U/L 5-34 (test code = 353) ALT (SGPT) (BEAKER) 9 U/L 6-55 (test code = 347) EGFR (BEAKER) (test 111 ESTIMATE D GFR IS code = 1092) mL/min/1.73 sq NOT ACCURA TE m CREATININE CLEARANCE IN PREDICTING GLOMERULAR FILTRATION RATE . ESTIMATED GFR I S NOT APPLICABLE FOR DIALYSIS PATIEN TS. Interactive Graphic Designer ID - [id number] 05:46:00 Test Item Value Reference Range Interpretation Comments MAGNESIUM (BEAKER) (test code = 1.9 mg/dL 1.6-2.6 627) Interactive Graphic Designer ID - [id number] 05:46:00 Test Item Value Reference Range Interpretation Comments PHOSPHORUS (BEAKER) (test code = 3.0 mg/dL 2.3-4.7 604) Interactive Graphic Designer ID - EDASIRAD, CHEST, 1 VIEW, NON [id number] 05:32:00Reason for exam:->eval PNXShould this be performed at the bedside?->Yes [facility] 1950 Sex: FFINAL REPORT RAD, CHEST, 1 VIEW, NON DEPT INDICATION: eval PNX COMPARISON: Exam fromfive hours prior FINDINGS: Portable frontal view of the chest. IMPRESSION: Support Lines: Stable right chest tube. Lungs and pleura: Unchanged blunting of both costophrenic angles. No airspace consolidation. No discernible pneumothorax.Heart and mediastinum: Stable contours.Additional findings: None. Signed: Cresencio Jamisoneport Verified Date/Time: 12/15/2020 05:32:54 IUM, [id number] 05:14:00 Test Item Value Reference Range Interpretation Comments CALCIUM IONIZED (BEAKER) (test 1.15 mmol/L 1.12-1.27 code = 698) PH, BLOOD (BEAKER) (test code = 7.43 1810) CBC (HEMOGRAM ONLY)2020-12-15 05:10:00 Test Item Value Reference Range Interpretation Comments WHITE BLOOD CELL COUNT (BEAKER) 8.0 K/ L 3.5-10.5 (test code = 775) RED BLOOD CELL COUNT (BEAKER) 3.97 M/ L 3.93-5.22 (test code = 761) HEMOGLOBIN (BEAKER) (test code = 11.2 GM/DL 11.2-15.7 410) HEMATOCRIT (BEAKER) (test code = 36.7 % 34.1-44.9 411) MEAN CORPUSCULAR VOLUME (BEAKER) 92.4 fL 79.4-94.8 (test code = 753) MEAN CORPUSCULAR HEMOGLOBIN 28.2 pg 25.6-32.2 (BEAKER) (test code = 751) MEAN CORPUSCULAR HEMOGLOBIN CONC 30.5 GM/DL 32.2-35.5 L (BEAKER) (test code = 752) RED CELL DISTRIBUTION WIDTH 15.9 % 11.7-14.4 H (BEAKER) (test code = 412) PLATELET COUNT (BEAKER) (test 200 K/CU MM 150-450 code = 756) MEAN PLATELET VOLUME (BEAKER) 10.1 fL 9.4-12.3 (test code = 754) NUCLEATED RED BLOOD CELLS 0 /100 WBC 0-0 (BEAKER) (test code = 413) BLOOD GAS, [id number] 01:14:00 Test Item Value Reference Range Interpretation Comments PH VENOUS (BEAKER) (test code = 7.31 7.32-7.42 L 701) PCO2 VENOUS (BEAKER) (test code = 62 mm Hg 41-51 H 755) PO2 VENOUS (BEAKER) (test code = 33 mm Hg 25-40 702) O2 SATURATION VENOUS (BEAKER) 55.5 % 40.0-70.0 (test code = 703) HCO3 VENOUS (BEAKER) (test code = 31 mmol/L 21-29 H 705) BASE EXCESS VENOUS (BEAKER) (test 3.2 mmol/L -2.0-3.0 H code = 704) PATIENT TEMPERATURE (BEAKER) (test 37.0 code = 1818) RESPIRATORY PANEL [id number] 00:01:00 Test Item Value Reference Range Interpretation Comments HUMAN METAPNEUMOVIRUS Not detected Not detected, (BEAKER) (test code = Equivocal 2683) RHINOVIRUS (BEAKER) Not detected Not detected, (test code = 2684) Equivocal INFLUENZA A (BEAKER) Not detected Not detected, (test code = 2685) Equivocal INFLUENZA A (NO SUBTYPE) (test code = 3606) INFLUENZA A SUBTYPE H1 (BEAKER) (test code = 2686) INFLUENZA A SUBTYPE H3 (BEAKER) (test code = 2687) INFLUENZA A SUBTYPE H1-2009 (BEAKER) (test code = 3198) INFLUENZA B (BEAKER) Not detected Not detected, (test code = 2688) Equivocal RESPIRATORY SYNCYTIAL Not detected Not detected, VIRUS (BEAKER) (test Equivocal code = 3199) PARAINFLUENZA VIRUS 1 Not detected Not detected, (BEAKER) (test code = Equivocal 2691) PARAINFLUENZA VIRUS 2 Not detected Not detected, (BEAKER) (test code = Equivocal 2692) PARAINFLUENZA VIRUS 3 Detected Not detected, A Conta ct isolation if (BEAKER) (test code = Equivocal immuno suppressed or 2693) young children. Consider stoppi ng antibiotics. PARAINFLUENZA VIRUS 4 Not detected Not detected, (BEAKER) (test code = Equivocal 3200) ADENOVIRUS (BEAKER) Not detected Not detected, (test code = 2694) Equivocal CORONAVIRUS 229E Not detected Not detected, (BEAKER) (test code = Equivocal 3201) CORONAVIRUS HKU1 Not detected Not detected, (BEAKER) (test code = Equivocal 3202) CORONAVIRUS NL63 Not detected Not detected, (BEAKER) (test code = Equivocal 3203) CORONAVIRUS OC43 Not detected Not detected, (BEAKER) (test code = Equivocal 3204) BORDETELLA PERTUSSIS Not detected Not detected, (BEAKER) (test code = Equivocal 3205) CHLAMYDOPHILA Not detected Not detected, PNEUMONIAE (BEAKER) Equivocal (test code = 3206) MYCOPLASMA PNEUMONIAE Not detected Not detected, (BEAKER) (test code = Equivocal 3207) Other viruses and bacteria not targeted by this PCR panel cannot be excluded; therefore clinical correlation and follow up of serology, culture results, and other molecular studies is required. The results are not intended to be used as the sole means for clinical diagnosis or patient management decisions. This sample was tested at the [facility] using the [employer] FilmArray Respiratory Panel. It is FDA cleared and has been verified and approved by the [facility] for clinical use on nasopharyngeal swab specimens.The performance of the FilmArrayRP has not been established in individuals who received influenza vaccine. Recent administration of a nasal influenza vaccine may cause false positive results for Influenza A and/orInfluenza B.SARS-COV2/RT-PCR ([facility])2020-12-14 23:51:00 Test Item Value Reference Range Interpretation Comments SARS-COV2/RT-PCR Negative Negative The SARS-Co V-2 target (test code = 2729433) nuclei c acids are not detected in thi s specimen. The presence of SARS-CoV-2/FLU/RSV viral nucleic acids cannot rule out co- infections or disease caused by other viral or bacterial pathogens. As with any molecular test, mutations within the target regions of the Xpert Xpress SARS-CoV-2/Flu/RSV test could affect primer and/or probe binding resulting in failure to detect the presence of virus or the virus being detected less predictably. False negative results may occur if the virus is present at levels below the analytical limit of detection in thisspecimen.This Xpert Xpress SARS-CoV-2/Flu/RSV test is a rapid, real-time RT-PCR test intended for the qualitative detection of nucleic acid from Xpert Xpress SARS-CoV-2/Flu/RSV in a nasopharyngeal swabspecimen collected from individuals suspected of Xpert Xpress SARS-CoV-2/Flu/RSV by their healthcareprovider. Results from [facility] Xpert Xpress SARS-CoV-2/Flu/RSV test should be correlated with the clinical history, epidemiological data, and other data available to the clinician evaluating the patient. Viral nucleic acid may persist in vivo, independent of virus viability. Detection of analyte target(s)does not imply that the corresponding virus(es) are infectious or are the causative agents for clinical symptoms.This test has not been Food and Drug Administration (FDA) cleared or approved and has been authorized by FDA under an Emergency Use Authorization (EUA). This EUA will be effective until thedeclaration that circumstances exist justifying the authorization of the emergency use of in vitro diagnostic tests for detection and/or diagnosis of COVID-19 is terminated under Section 564(b)(2) of the Act or the EUA is revoked under Section 564(g) of the Act.Fact Sheet for Healthcare Providers:https ://www.[employer]/Documents/Xpert%20Xpress%20SARS%20CoV-2/Fact%20Sheets/302-390 2%48RATU-QIU-3%20HEALTHCARE%20PROVIDERS%20FACT%20SHEET.pdfFact Sheet for Healthcare Patients:https://www.[employer]/Docum ents/Xpert%20Xpress%20SARS%20Cov-2/Fact%20Sheets/302-3801%45PXFA-EXT-6%20PATIENT %20FACT%20SHEET.pdfTSH/FREE T4 IF [id number] 22:33:00 Test Item Value Reference Range Interpretation Comments THYROID STIMULATING HORMONE 2.265 uIU/mL 0.350-4.940 (BEAKER) (test code = 772) Interactive Graphic Designer ID - [id number] 22:20:00 Test Item Value Reference Range Interpretation Comments PROCALCITONIN (BEAKER) (test code 0.23 ng/mL <0.05 H = 3036) SEPSIS RISK (ng/mL)Low: 0.05-0.50Intermediate: 0.51-2.00High: >=2.01 [id number] 22:12:00 Test Item Value Reference Range Interpretation Comments PHOSPHORUS (BEAKER) 4.5 mg/dL 2.3-4.7 Specimen slightly (test code = 604) hemolyzed Interactive Graphic Designer ID - ADMINCOMPREHENSIVE METABOLIC [id number] 22:12:00 Test Item Value Reference Range Interpretation Comments TOTAL PROTEIN 6.2 gm/dL 6.0-8.3 Specimen sligh tly (BEAKER) (test code = hemoly zed 770) ALBUMIN (BEAKER) 3.1 g/dL 3.5-5.0 L Specimen sl ightly (test code = 1145) hemolyzed ALKALINE PHOSPHATASE 129 U/L 40-150 (BEAKER) (test code = 346) BILIRUBIN TOTAL 0.4 mg/dL 0.2-1.2 Specimen sli ghtly (BEAKER) (test code = hemoly zed 377) SODIUM (BEAKER) (test 145 meq/L 136-145 code = 381) POTASSIUM (BEAKER) 3.9 meq/L 3.5-5.1 Specimen slightly (test code = 379) hemolyzed CHLORIDE (BEAKER) 102 meq/L 98-107 (test code = 382) CO2 (BEAKER) (test 31 meq/L 22-29 H code = 355) BLOOD UREA NITROGEN 19 mg/dL 7-21 (BEAKER) (test code = 354) CREATININE (BEAKER) 0.63 mg/dL 0.57-1.25 Specimen slightly (test code = 358) hemolyzed GLUCOSE RANDOM 84 mg/dL 70-105 (BEAKER) (test code = 652) CALCIUM (BEAKER) 8.7 mg/dL 8.4-10.2 (test code = 697) AST (SGOT) (BEAKER) 19 U/L 5-34 Specimen slightly (test code = 353) hemolyzed ALT (SGPT) (BEAKER) 11 U/L 6-55 Specimen slightly (test code = 347) hemolyzed EGFR (BEAKER) (test 93 mL/min/1.73 ESTIMA CRISTHIAN GFR IS code = 1092) sq m NOT ACCURATE CREATININE CLEARANCE IN PREDICTING GLOMERULAR FILTRATION RATE . ESTIMATED GFR I S NOT APPLICABLE FOR DIALYSIS PATIEN TS. Interactive Graphic Designer ID - ADMINC-REACTIVE [id number] 22:12:00 Test Item Value Reference Range Interpretation Comments C-REACTIVE PROTEIN (BEAKER) (test 0.86 mg/dL 0.00-0.50 H code = 676) Interactive Graphic Designer ID - [id number] 22:12:00 Test Item Value Reference Range Interpretation Comments MAGNESIUM (BEAKER) 2.0 mg/dL 1.6-2.6 Specimen slightly (test code = 627) hemolyzed Interactive Graphic Designer ID - ADMINLACTIC ACID, [id number] 22:07:00 Test Item Value Reference Range Interpretation Comments LACTATE BLOOD VENOUS (2) (BEAKER) 1.86 mmol/L 0.50-2.20 (test code = 2872) Interactive Graphic Designer ID - ADMINPOCT-GLUCOSE [id number] 21:53:00 Test Item Value Reference Range Interpretation Comments POC-GLUCOSE METER 89 mg/dL 70-110 : TESTED A T [facility] 6720 (BEAKER) (test code = [facility], 1538) [address]: Interactive Graphic Designer/Techni ethel ID = [id number] for Elsi Diaz CBC (HEMOGRAM ONLY)2020-12-14 21:53:00 Test Item Value Reference Range Interpretation Comments WHITE BLOOD CELL COUNT (BEAKER) 10.8 K/ L 3.5-10.5 H (test code = 775) RED BLOOD CELL COUNT (BEAKER) 4.36 M/ L 3.93-5.22 (test code = 761) HEMOGLOBIN (BEAKER) (test code = 12.3 GM/DL 11.2-15.7 410) HEMATOCRIT (BEAKER) (test code = 41.3 % 34.1-44.9 411) MEAN CORPUSCULAR VOLUME (BEAKER) 94.7 fL 79.4-94.8 (test code = 753) MEAN CORPUSCULAR HEMOGLOBIN 28.2 pg 25.6-32.2 (BEAKER) (test code = 751) MEAN CORPUSCULAR HEMOGLOBIN CONC 29.8 GM/DL 32.2-35.5 L (BEAKER) (test code = 752) RED CELL DISTRIBUTION WIDTH 15.8 % 11.7-14.4 H (BEAKER) (test code = 412) PLATELET COUNT (BEAKER) (test 199 K/CU MM 150-450 code = 756) MEAN PLATELET VOLUME (BEAKER) 9.9 fL 9.4-12.3 (test code = 754) NUCLEATED RED BLOOD CELLS 0 /100 WBC 0-0 (BEAKER) (test code = 413) BLOOD GAS, [id number] 21:49:00 Test Item Value Reference Range Interpretation Comments PH VENOUS (BEAKER) (test code = 7.23 7.32-7.42 L 701) PCO2 VENOUS (BEAKER) (test code = 95 mm Hg 41-51 HH 755) PO2 VENOUS (BEAKER) (test code = 37 mm Hg 25-40 702) O2 SATURATION VENOUS (BEAKER) 58.1 % 40.0-70.0 (test code = 703) HCO3 VENOUS (BEAKER) (test code = 39 mmol/L 21-29 H 705) BASE EXCESS VENOUS (BEAKER) (test 7.6 mmol/L -2.0-3.0 H code = 704) PATIENT TEMPERATURE (BEAKER) (test 36.6 code = 1818) FIO2 (BEAKER) (test code = 1819) 40.0 CALCIUM, [id number] 21:48:00 Test Item Value Reference Range Interpretation Comments CALCIUM IONIZED (BEAKER) (test 1.18 mmol/L 1.12-1.27 code = 698) PH, BLOOD (BEAKER) (test code = 7.22 1810) RAD, CHEST, 1 VIEW, NON [id number] 20:50:00Reason for exam:->chest tube placementShould this be performed at the bedside?->Yes [facility] : 1950 Sex: FFINAL REPORT Chest, 1 view, 12/14/2020 8:39 PM. History: Chest tube placement. Comparison: None available. Discussion: The patient is rotated. The cardiomediastinal silhouette and pulmonary vasculature are within normal limits for a portable exam. Linear opacities are present bilaterally. There is no visible pneumothorax. There is no focal consolidation or effusion. The soft tissues andosseous structures are intact. IMPRESSION: No visible pneumothorax post right chest tube placement. Signed: Romeo Thrasher MDReport Verified Date/Time: 12/14/2020 20:50:14 Reading Location: [address] Consult Reading Room [id number] 14:04:21 Test Item Value Reference Range Interpretation Comments ALBUMIN (test code = 8499696056) 3.2 g/dL 3.5-5.0 L Lab Interpretation (test code = Abnormal 01585-9) [facility] (NA, K, CL, CO2, GLUCOSE, BUN, CREATININE, CA)2020-12-04 10:57:25 Test Item Value Reference Range Interpretation Comments NA (test code = 137 mmol/L 135-145 [id number]) K (test code = 3.9 mmol/L 3.5-5.0 6612532616) CL (test code = 95 mmol/L 98-108 L [id number]) CO2 TOTAL (test code = 36 mmol/L 23-31 H 5244600950) AGAP (test code = 2-16 4371628553) BUN (test code = 15 mg/dL 7-23 4976831043) GLUCOSE (test code = 92 mg/dL 70-110 5005872562) CREATININE (test code = 0.53 mg/dL 0.50-1.04 8593333028) CALCIUM (test code = 8.9 mg/dL 8.6-10.6 5804449683) eGFR (test code = mL/min/1.73m2 8546791033) CHRISTINE (test code = CHRISTINE) Association of Glomerular Filtration Rate (GFR) and Staging of Kidney Disease* + --+ --+ ------+| GFR (mL/min/1.73 m2) ?| With Kidney Damage ?| ?Without Kidney Damage+ --------+ --------+ +| ?>90 ?| ?Stage one ?| ? Normal ?+ ---+ ---+ -------+| ?60-89 ?| ?Stage two ?| ? Decreased GFR ? + --+ --+ ------+| ?30-59 ?| ?Stage three ?| ? Stage three ? + --+ --+ ------+| ?15-29 ?| ?Stage four ? | ? Stage four ?+ ---+ ---+ -------+| ?<15 (or dialysis) ? ?| ?Stage five ? | ? Stage five ?+ ---+ ---+ -------+ *Each stage assumes the associated GFR level has been in effect for at least three months. ?Stages 1 to 5, with or without kidney disease, indicate chronic kidney disease. Notes: Determination of stages one and two (with eGFR >59mL/min/1.73 m2) requires estimation of kidney damage for at least three months as defined by structural or functional abnormalities of the kidney, manifested by either:Pathological abnormalities or Markers of kidney damage (including abnormalities in the composition of the blood or urine or abnormalities in imaging tests). Lab Interpretation Abnormal (test code = 70944-6) [facility] 10:46:24 Test Item Value Reference Range Interpretation Comments MAGNESIUM (test code = 5723075341) 2.0 mg/dL 1.7-2.4 Lab Interpretation (test code = Normal 58490-5) [facility] WITH [id number] 10:19:38 Test Item Value Reference Range Interpretation Comments WBC (test code = See_Comment [Automated 4557-2) message] The sy stem which generated this result transmitted reference range : 4.30 - 11.10 10*3/?L. The reference range was not used to interpret this result as normal/abnormal . RBC (test code = See_Comment [Automated 887-8) message] The sy stem which generated this result transmitted reference range : 3.93 - 5.25 10*6/?L. The reference range was not used to interpret this result as normal/abnormal . HGB (test code = 12.9 g/dL 11.6-15.0 718-7) HCT (test code = 41.0 % 35.7-45.2 4544-3) MCV (test code = 91.3 fL 80.6-95.5 787-2) MCH (test code = 28.7 pg 25.9-32.8 785-6) MCHC (test code = 31.5 g/dL 31.6-35.1 L 786-4) RDW-SD (test code = 52.2 fL 39.0-49.9 H 68793-4) RDW-CV (test code = 15.9 % 12.0-15.5 H 788-0) PLT (test code = See_Comment [Automated 777-3) message] The sy stem which generated this result transmitted reference range : 166 - 358 10*3/ ?L. The reference r crispin was not used to interpret this result as normal/abnormal . MPV (test code = 9.6 fL 9.5-12.9 78813-1) NRBC/100 WBC (test See_Comment [Automat ed code = 8328649089) message] The system which generated this result transmitted reference range : 0.0 - 10.0 /100 WBCs. The refer ence range was not u sed to interpret th is result as normal/abnormal . NRBC x10^3 (test code <0.01 See_Comment [Auto mated = 3879016040) message] The s ystem which generated this result transmitted reference range : 10*3/?L. The reference range was not used to interpret this result as normal/abnormal . GRAN MAT (NEUT) % 56.8 % (test code = 770-8) IMM GRAN % (test code 0.30 % = 9604506674) LYMPH % (test code = 18.2 % 736-9) MONO % (test code = 17.8 % 5905-5) EOS % (test code = 6.2 % 713-8) BASO % (test code = 0.7 % 706-2) GRAN MAT x10^3(ANC) 3.41 10*3/uL 1.88-7.09 (test code = 7893192803) IMM GRAN x10^3 (test <0.03 0.00-0.06 code = 8582834837) LYMPH x10^3 (test code 1.09 10*3/uL 1.32-3.29 L = 731-0) MONO x10^3 (test code 1.07 10*3/uL 0.33-0.92 H = 742-7) EOS x10^3 (test code = 0.37 10*3/uL 0.03-0.39 711-2) BASO x10^3 (test code 0.04 10*3/uL 0.01-0.07 = 704-7) Lab Interpretation Abnormal (test code = 01258-9) [facility] METABOLIC PANEL (NA, K, CL, CO2, GLUCOSE, BUN, CREATININE, CA)2020-12-03 11:48:25 Test Item Value Reference Range Interpretation Comments NA (test code = 137 mmol/L 135-145 0293719063) K (test code = 3.6 mmol/L 3.5-5.0 Slight 4450073107) hemolysis CL (test code = 93 mmol/L 98-108 L 9682332479) CO2 TOTAL (test code 38 mmol/L 23-31 H = 1766372835) AGAP (test code = 2-16 8934505502) BUN (test code = 14 mg/dL 7-23 Slight 8743550943) hemolysis GLUCOSE (test code = 94 mg/dL 70-110 2988170694) CREATININE (test code 0.44 mg/dL 0.50-1.04 L = 6018190957) CALCIUM (test code = 9.2 mg/dL 8.6-10.6 1731609704) eGFR (test code = mL/min/1.73m2 0071538880) CHRISTINE (test code = CHRISTINE) Association of Glomerular Filtration Rate (GFR) and Staging of Kidney Disease* + -----+ --------+ +| GFR (mL/min/1.73 m2) ?| With Kidney Damage ?| ?Without Kidney Damage+ +------- +---- --+| ?>90 ?| ?Stage one ?| ? Normal ?+ ------+ ---------+--------- +| ?60-89 ?| ?Stage two ?| ? Decreased GFR ? + -----+ --------+ +| ?30-59 ?| ?Stage three ?| ? Stage three ? + -----+ --------+ +| ?15-29 ?| ?Stage four ? | ? Stage four ?+ ------+ ---------+--------- +| ?<15 (or dialysis) ? ?| ?Stage five ? | ? Stage five ?+ ------+ ---------+--------- + *Each stage assumes the associated GFR level has been in effect for at least three months. ?Stages 1 to 5, with or without kidney disease, indicate chronic kidney disease. Notes: Determination of stages one and two (with eGFR >59mL/min/1.73 m2) requires estimation of kidney damage for at least three months as defined by structural or functional abnormalities of the kidney, manifested by either:Pathological abnormalities or Markers of kidney damage (including abnormalities in the composition of the blood or urine or abnormalities in imaging tests). Lab Interpretation Abnormal (test code = 15594-8) [facility] 11:48:25 Test Item Value Reference Range Interpretation Comments MAGNESIUM (test code = 1543095370) 2.0 mg/dL 1.7-2.4 Lab Interpretation (test code = Normal 18670-7) [facility] WITH [id number] 11:28:06 Test Item Value Reference Range Interpretation Comments WBC (test code = See_Comment [Automated 2272-2) message] The sy stem which generated this result transmitted reference range : 4.30 - 11.10 10*3/?L. The reference range was not used to interpret this result as normal/abnormal . RBC (test code = See_Comment [Automated 979-4) message] The sy stem which generated this result transmitted reference range : 3.93 - 5.25 10*6/?L. The reference range was not used to interpret this result as normal/abnormal . HGB (test code = 13.1 g/dL 11.6-15.0 718-7) HCT (test code = 43.5 % 35.7-45.2 4544-3) MCV (test code = 92.2 fL 80.6-95.5 787-2) MCH (test code = 27.8 pg 25.9-32.8 785-6) MCHC (test code = 30.1 g/dL 31.6-35.1 L 786-4) RDW-SD (test code = 53.5 fL 39.0-49.9 H 18832-7) RDW-CV (test code = 15.8 % 12.0-15.5 H 788-0) PLT (test code = See_Comment [Automated 777-3) message] The sy stem which generated this result transmitted reference range : 166 - 358 10*3/ ?L. The reference r crispin was not used to interpret this result as normal/abnormal . MPV (test code = 9.8 fL 9.5-12.9 63680-5) NRBC/100 WBC (test See_Comment [Automat ed code = 7417875625) message] The system which generated this result transmitted reference range : 0.0 - 10.0 /100 WBCs. The refer ence range was not u sed to interpret th is result as normal/abnormal . NRBC x10^3 (test code <0.01 See_Comment [Auto mated = 2071201128) message] The s ystem which generated this result transmitted reference range : 10*3/?L. The reference range was not used to interpret this result as normal/abnormal . GRAN MAT (NEUT) % 59.3 % (test code = 770-8) IMM GRAN % (test code 0.30 % = 3274256825) LYMPH % (test code = 21.7 % 736-9) MONO % (test code = 14.6 % 5905-5) EOS % (test code = 3.6 % 713-8) BASO % (test code = 0.5 % 706-2) GRAN MAT x10^3(ANC) 4.45 10*3/uL 1.88-7.09 (test code = 8020641920) IMM GRAN x10^3 (test <0.03 0.00-0.06 code = 6217244723) LYMPH x10^3 (test code 1.63 10*3/uL 1.32-3.29 = 731-0) MONO x10^3 (test code 1.10 10*3/uL 0.33-0.92 H = 742-7) EOS x10^3 (test code = 0.27 10*3/uL 0.03-0.39 711-2) BASO x10^3 (test code 0.04 10*3/uL 0.01-0.07 = 704-7) Lab Interpretation Abnormal (test code = 24183-5) [facility] CULTURE [id number] 17:01:30 Test Item Value Reference Range Interpretation Comments Blood Culture-Aerobic No organisms No growth Previo us (test code = 48690-8) isolated prelim inary verified result was Culture In Progress on 11/27/2020 at 15 01 CDTPrevious preliminary verified result was No growth a t 24 hours on 11/28/2020 at 12 01 CDTPrevious preliminary verified result was No growth a t 48 hours on 11/29/2020 at 12 01 CDTPrevious preliminary verified result was No growth a t 72 hours on 11/30/2020 at 12 01 CDT Blood No organisms No growth Previous Culture-Anaerobic isolated preliminar y (test code = 02610-8) verifi ed result was Culture In Progress on 11/27/2020 at 15 01 CDTPrevious preliminary verified result was No growth a t 24 hours on 11/28/2020 at 12 01 CDTPrevious preliminary verified result was No growth a t 48 hours on 11/29/2020 at 12 01 CDTPrevious preliminary verified result was No growth a t 72 hours on 11/30/2020 at 12 01 CDT Lab Interpretation Normal (test code = 66604-5) [facility] CULTURE [id number] 16:01:30 Test Item Value Reference Range Interpretation Comments Blood Culture-Aerobic No organisms No growth Previo us (test code = 19271-0) isolated prelim inary verified result was Culture In Progress on 11/27/2020 at 14 01 CDTPrevious preliminary verified result was No growth a t 24 hours on 11/28/2020 at 11 01 CDTPrevious preliminary verified result was No growth a t 48 hours on 11/29/2020 at 11 01 CDTPrevious preliminary verified result was No growth a t 72 hours on 11/30/2020 at 11 01 CDT Blood No organisms No growth Previous Culture-Anaerobic isolated preliminar y (test code = 75967-8) verifi ed result was Culture In Progress on 11/27/2020 at 14 01 CDTPrevious preliminary verified result was No growth a t 24 hours on 11/28/2020 at 11 01 CDTPrevious preliminary verified result was No growth a t 48 hours on 11/29/2020 at 11 01 CDTPrevious preliminary verified result was No growth a t 72 hours on 11/30/2020 at 11 01 CDT Lab Interpretation Normal (test code = 36710-1) [facility]SP[facility] [id number] 16:12:34 Test Item Value Reference Range Interpretation Comments SPUTUM CULTURE 1+ Respiratory daniel: (test code = 622-1) Commensal upper respiratory microorganisms only. Gram stain (test Occasional (Rare) code = 664-3) Epithelial cells CHRISTINE (test code = Bacterial pathogens CHRISTINE) associated with lower respiratory infections were not identified, which include Pseudomonas aeruginosa and Staphylococcus aureus (MRSA or MSSA). [facility] METABOLIC PANEL (NA, K, CL, CO2, GLUCOSE, BUN, CREATININE, CA)2020-12-01 10:12:53 Test Item Value Reference Range Interpretation Comments NA (test code = 137 mmol/L 135-145 2956805462) K (test code = 3.6 mmol/L 3.5-5.0 1317426794) CL (test code = 94 mmol/L 98-108 L 4872911220) CO2 TOTAL (test code = 35 mmol/L 23-31 H 6002893313) AGAP (test code = 2-16 1980878235) BUN (test code = 17 mg/dL 7-23 3034496292) GLUCOSE (test code = 88 mg/dL 70-110 2800643199) CREATININE (test code = 0.38 mg/dL 0.50-1.04 L 2218345431) CALCIUM (test code = 8.6 mg/dL 8.6-10.6 0239858144) eGFR (test code = mL/min/1.73m2 9815218474) CHRISTINE (test code = CHRISTINE) Association of Glomerular Filtration Rate (GFR) and Staging of Kidney Disease* + --+ --+ ------+| GFR (mL/min/1.73 m2) ?| With Kidney Damage ?| ?Without Kidney Damage+ --------+ --------+ +| ?>90 ?| ?Stage one ?| ? Normal ?+ ---+ ---+ -------+| ?60-89 ?| ?Stage two ?| ? Decreased GFR ? + --+ --+ ------+| ?30-59 ?| ?Stage three ?| ? Stage three ? + --+ --+ ------+| ?15-29 ?| ?Stage four ? | ? Stage four ?+ ---+ ---+ -------+| ?<15 (or dialysis) ? ?| ?Stage five ? | ? Stage five ?+ ---+ ---+ -------+ *Each stage assumes the associated GFR level has been in effect for at least three months. ?Stages 1 to 5, with or without kidney disease, indicate chronic kidney disease. Notes: Determination of stages one and two (with eGFR >59mL/min/1.73 m2) requires estimation of kidney damage for at least three months as defined by structural or functional abnormalities of the kidney, manifested by either:Pathological abnormalities or Markers of kidney damage (including abnormalities in the composition of the blood or urine or abnormalities in imaging tests). Lab Interpretation Abnormal (test code = 81992-0) [facility]21[facility] 10:02:28 Test Item Value Reference Range Interpretation Comments MAGNESIUM (test code = 6569790150) 2.0 mg/dL 1.7-2.4 Lab Interpretation (test code = Normal 90209-3) [facility]wayPHOSPHORUS2021-06-26 10:02:28 Test Item Value Reference Range Interpretation Comments PHOSPHORUS (test code = 1314866143) 3.5 mg/dL 2.5-5.0 Lab Interpretation (test code = Normal 70918-3) [facility]wayCB WITH [id number] 09:52:48 Test Item Value Reference Range Interpretation Comments WBC (test code = See_Comment [Automated 7205-2) message] The sy stem which generated this result transmitted reference range : 4.30 - 11.10 10*3/?L. The reference range was not used to interpret this result as normal/abnormal . RBC (test code = See_Comment [Automated 604-8) message] The sy stem which generated this result transmitted reference range : 3.93 - 5.25 10*6/?L. The reference range was not used to interpret this result as normal/abnormal . HGB (test code = 11.7 g/dL 11.6-15.0 718-7) HCT (test code = 39.0 % 35.7-45.2 4544-3) MCV (test code = 94.0 fL 80.6-95.5 787-2) MCH (test code = 28.2 pg 25.9-32.8 785-6) MCHC (test code = 30.0 g/dL 31.6-35.1 L 786-4) RDW-SD (test code = 54.5 fL 39.0-49.9 H 55974-6) RDW-CV (test code = 15.9 % 12.0-15.5 H 788-0) PLT (test code = See_Comment [Automated 777-3) message] The sy stem which generated this result transmitted reference range : 166 - 358 10*3/ ?L. The reference r crispin was not used to interpret this result as normal/abnormal . MPV (test code = 9.5 fL 9.5-12.9 39800-4) NRBC/100 WBC (test See_Comment [Automat ed code = 8874273078) message] The system which generated this result transmitted reference range : 0.0 - 10.0 /100 WBCs. The refer ence range was not u sed to interpret th is result as normal/abnormal . NRBC x10^3 (test code <0.01 See_Comment [Auto mated = 1573041346) message] The s ystem which generated this result transmitted reference range : 10*3/?L. The reference range was not used to interpret this result as normal/abnormal . GRAN MAT (NEUT) % 64.3 % (test code = 770-8) IMM GRAN % (test code 0.30 % = 1409155793) LYMPH % (test code = 17.9 % 736-9) MONO % (test code = 13.5 % 5905-5) EOS % (test code = 3.7 % 713-8) BASO % (test code = 0.3 % 706-2) GRAN MAT x10^3(ANC) 3.85 10*3/uL 1.88-7.09 (test code = 7041433612) IMM GRAN x10^3 (test <0.03 0.00-0.06 code = 3848548050) LYMPH x10^3 (test code 1.07 10*3/uL 1.32-3.29 L = 731-0) MONO x10^3 (test code 0.81 10*3/uL 0.33-0.92 = 742-7) EOS x10^3 (test code = 0.22 10*3/uL 0.03-0.39 711-2) BASO x10^3 (test code <0.03 0.01-0.07 = 704-7) Lab Interpretation Abnormal (test code = 79017-1) [facility] ONLY COVID [id number] 02:47:45COVID DMT InterpretationInterpretation/Recommendations: Molecular NAAT Tests for Active Infection with the SARS-CoV-2 Virus: The patient has currently tested negative for the SARS-CoV-2 virus that causes COVID-19 illness. This most likely indicates that the patient does not have an active infection with the SARS-CoV-2 virus. However, infection is not completely ruled out as the false negative rate for molecular NAAT testing using a nasopharyngeal sample can be up to 30%, mostly dependent on the timing of sample collection in relation to illness onset and any deficiencies in sampling techniques. If the patient has symptoms concerning for COVID-19 illness, a repeat NAAT test (PCR, Rapid ID Now, etc.) should be performed, at which time the SARS-CoV-2 virus - if present - may have reached a detectable viral load (usually peaking by the end of the first week of symptoms). Tests for IgM and/or IgG Antibodies to the SARS-CoV-2 Virus: If the patient develops COVID-19 illness in the future, testing for IgM and IgG antibodies approximately 3 weeks after illness onset will likely indicate if the patient has produced antibodies to the SARS-CoV-2 virus. However, some patients may take longer to develop detectable antibodies, while some patients who were infected with SARS-CoV-2 may never develop antibodies. While antibodies to SARS-CoV-2 may provide some degree of immunity, at this time the strength and duration of the antibody response is unknown. Interpretation Result Comments:These interpretation comments are based upon all COVID-19 testing the patient has had at [facility], including molecular NAAT testing (more commonly known as PCR testing and Rapid ID Now testing) and antibody testing. It does not take into account any testingthat a patient has had outside of the [facility] medical record. [facility] LABORATORY SERVICESCOVID [id number] Rapid ID NOW (no units) ? ? Date ? Value ? 11/27/2020 ? Not Detected ? ? ? 11/10/2020 ? Not Detected ? [facility] SERVICESUn[facility] PANEL 21 + LACTIC [id number] 20:13:40 Test Item Value Reference Range Interpretation Comments PH (test code = 7.32-7.42 9404669055) PCO2 AALIYAH (test code = See_Comment H [Auto mated 7354116779) message] The sy stem which generated this result transmitted reference range : 41 - 51 mmHg. The reference range was not used to interpret this result as normal/abnormal . PO2 AALIYAH (test code = See_Comment HH [Autom ated 7452737300) message] The sy stem which generated this result transmitted reference range : 25 - 40 mmHg. The reference range was not used to interpret this result as normal/abnormal . HCO3 AALIYAH (test code = See_Comment H [Auto mated 5337543229) message] The sy stem which generated this result transmitted reference range : 24 - 28 mEq/L. The reference range was not used to interpret this result as normal/abnormal . AC VBE(BEAKER) (test mEq/L code = 4054950079) THB AALIYAH (test code = 12.8 g/dL 12.0-16.0 8118559384) %O2HB AALIYAH (test code = 95.5 % 52.0-63.0 H 0498102360) %COHB AALIYAH (test code = 0.4 % 0.0-1.5 7401689875) %METHB AALIYAH (test code = 0.1 % 0.4-1.5 L 1177315936) VOL%O2 AALIYAH (test code = 17.2 % 6.0-12.0 H 8004558569) NA (test code = 139 mmol/L 135-145 3503542571) K+ (test code = 3.9 mmol/L 3.5-5.0 4918139936) AC CA IONZ (test code = 4.50 mg/dL 4.50-5.30 4398608733) GLUCOSE (test code = 167 mg/dL 70-110 H 6636321603) LACTIC ACID (test code 2.64 mmol/L 0.50-2.20 H = 1404342964) Lab Interpretation Abnormal (test code = 16297-9) [facility]wayMRSA / MSSA Screen by PCR, [id number] 16:25:22 Test Item Value Reference Range Interpretation Comments MSSA Screen by PCR, Nares (test code Negative Negative = 15436-9) MRSA/MSSA Positive? (test code = No No 1725844100) Lab Interpretation (test code = Normal 15396-4) [facility] LakewayLEGIONELLA URINARY ANTIGEN [id number] 10:44:38 Test Item Value Reference Range Interpretation Comments Legionella Urinary Negative Negative Antigen (test code = 5411234866) CHRISTINE (test code = CHRISTINE) Negative for L. pneumophilia serogroup I antigen in urine suggesting no recent or current infection. Infection due to Legionella cannot be ruled out since other serogroups and species may cause disease. Furthermore, antigens may not be present in urine during early stage of infection, or the level of antigen present in urine may be below the detection limit of the test. Lab Interpretation (test Normal code = 65688-3) [facility] LakewayPNEUMOCOCCAL [id number] 10:44:22 Test Item Value Reference Range Interpretation Comments S. pneumoniae antigen (test code = Negative Negative 4876790891) Lab Interpretation (test code = Normal 43876-3) [facility]wayURINALYSIS2021-06-23 10:42:10 Test Item Value Reference Range Interpretation Comments APPEARANCE (test code = Hazy Clear A 3997918488) COLOR (test code = Mary Ann Yellow A 4047792973) PH (test code = 4.8-8.0 1976799057) SP GRAVITY (test code = 1.003-1.030 H 0347795644) GLU U QUAL (test code = Normal Normal 1139737177) BLOOD (test code = Negative Negative Interfere nce from 7239680511) ascorbic acid m ay cause false neg ative results. KETONES (test code = 5 mg/dL Negative A 6002507119) PROTEIN (test code = Negative Negative 2887-8) UROBILIN (test code = Normal Normal 5834883569) BILIRUBIN (test code = Negative Negative 5501959759) NITRITE (test code = Negative Negative 3922406599) LEUK FAITH (test code = Negative Negative 0198232344) RBC/HPF (test code = See_Comment H [Autom ated message] 6965677523) The system [employer] generated this result transmitted ref erence range: 0 - 3 HP F. The reference range was not used to int erpret this result as normal/abnormal . WBC/HPF (test code = See_Comment [Autom ated message] 9214461627) The system [employer] generated this result transmitted ref erence range: 0 - 5 HP F. The reference range was not used to int erpret this result as normal/abnormal . BACTERIA (test code = Few Negative A 5849067156) MUCOUS (test code = Slight Negative LPF A 0030403470) AMORPHOUS (test code = Rare Rare HPF 3670753999) ASCORBIC ACID (test code 40 mg/dL = 7337204668) Lab Interpretation (test Abnormal code = 06061-8) [facility] LakewayXR RIBS 4+ VW [id number] 10:25:19 Left-sided rib fractures with left pleural effusion and left lower lobeatelectasis versus infiltrate. Questionable inferior lateral right rib fractures, suboptimally profiled. Severe osteopenia. Thoracic and lumbar spine vertebral body compression fractures, chronicityuncertain. Severe osteopenia, suspect osteoporosis. EXAM: XR RIBS 4+ VW BILATERAL HISTORY: Rule out possible rib fracture. [facility] COMPARISON: None FINDINGS: Imaging of the left and right ribs demonstrates blunting of the leftcostophrenic sulcus with partial opacification of the left lung base.Severe osteopenia is present. Calcified plaque outlines the aortic arch.Multifocal compression fracture deformities are partially visualizedthroughout the thoracic and lumbarspine. There is no pneumothorax.Minimally displaced left-sided lateral rib fractures are present at theapproximate ninth through 11th rib levels. Diffuse background interstitialprominence of the lungs is present. Subtle cortical step-off deformity isseen along the inferior and lateral right ribs. [facility], Radiant Results Inft User - 11/28/2020 5:26 AM CDT EXAM:XR RIBS 4+ VW BILATERALHISTORY:Rule out possible rib fracture. Patient reports recent trauma to anteriorchest by slamming into truck door. COMPARISON:NoneFINDINGS: Imaging of the left and right ribs demonstrates blunting of the leftcostophrenic sulcus with partial opacification of the left lung base.Severe osteopenia is present. Calcified plaque outlines the aortic arch.Multifocal compression fracture deformities are partially visualizedthroughout the thoracic and lumbar spine. Thereis no pneumothorax.Minimally displaced left-sided lateral rib fractures are present at theapproximate ninth through 11th rib levels. Diffuse background interstitialprominence of the lungs is present. Subtle cortical step-off deformity isseen along the inferior and lateral right ribs.IMPRESSIONLeft-sided rib fractures with left pleural effusion and left lower lobeatelectasis versus infiltrate.Questionable inferior lateral right rib fractures, suboptimally profiled.Severe osteopenia.Thoracic and lumbar spine vertebral body compression fractures, chronicityuncertain.Severe osteopenia, suspect osteoporosis. [facility] Metabolic Panel (NA, K, CL, CO2, Glucose, BUN, Creatinine, CA)2020-11-28 10:13:28 Test Item Value Reference Range Interpretation Comments NA (test code = 141 mmol/L 135-145 7121009654) K (test code = 4.3 mmol/L 3.5-5.0 8870257502) CL (test code = 99 mmol/L 98-108 3291152202) CO2 TOTAL (test code = 36 mmol/L 23-31 H 7304284183) AGAP (test code = 2-16 8966004418) BUN (test code = 35 mg/dL 7-23 H 7860461562) GLUCOSE (test code = 93 mg/dL 70-110 7706514200) CREATININE (test code = 0.38 mg/dL 0.50-1.04 L 9005778150) CALCIUM (test code = 8.3 mg/dL 8.6-10.6 L 5194916352) eGFR (test code = mL/min/1.73m2 3036315496) CHRISTINE (test code = CHRISTINE) Association of Glomerular Filtration Rate (GFR) and Staging of Kidney Disease* + --+ --+ ------+| GFR (mL/min/1.73 m2) ?| With Kidney Damage ?| ?Without Kidney Damage+ --------+ --------+ +| ?>90 ?| ?Stage one ?| ? Normal ?+ ---+ ---+ -------+| ?60-89 ?| ?Stage two ?| ? Decreased GFR ? + --+ --+ ------+| ?30-59 ?| ?Stage three ?| ? Stage three ? + --+ --+ ------+| ?15-29 ?| ?Stage four ? | ? Stage four ?+ ---+ ---+ -------+| ?<15 (or dialysis) ? ?| ?Stage five ? | ? Stage five ?+ ---+ ---+ -------+ *Each stage assumes the associated GFR level has been in effect for at least three months. ?Stages 1 to 5, with or without kidney disease, indicate chronic kidney disease. Notes: Determination of stages one and two (with eGFR >59mL/min/1.73 m2) requires estimation of kidney damage for at least three months as defined by structural or functional abnormalities of the kidney, manifested by either:Pathological abnormalities or Markers of kidney damage (including abnormalities in the composition of the blood or urine or abnormalities in imaging tests). Lab Interpretation Abnormal (test code = 40784-4) [facility] [id number] 10:03:09 Test Item Value Reference Range Interpretation Comments MAGNESIUM (test code = 3068332900) 2.4 mg/dL 1.7-2.4 Lab Interpretation (test code = Normal 32195-2) [facility]way[facility] Function [facility] (ALB, T.PRO, BILI T, BU/BC, ALT, AST, ALK, PHOS)2020-11-28 10:03:09 Test Item Value Reference Range Interpretation Comments TOTAL BILI (test code = 2910054484) 0.3 mg/dL 0.1-1.1 BILI UNCON (test code = 4041967464) 0.0 mg/dL 0.1-1.1 L BILI CONJ (test code = 9094858038) 0.0 mg/dL 0.0-0.3 T PROTEIN (test code = 1073423358) 5.7 g/dL 6.3-8.2 L ALBUMIN (test code = 2555092315) 2.7 g/dL 3.5-5.0 L ALK PHOS (test code = 1353912657) 119 U/L 34-122 ALTv (test code = 1742-6) 8 U/L 5-35 AST(SGOT) (test code = 5129020879) 21 U/L 13-40 Lab Interpretation (test code = Abnormal 26440-1) [facility] + LACTIC [id number] 09:39:06 Test Item Value Reference Range Interpretation Comments PH (test code = 7.32-7.42 8311656864) PCO2 AALIYAH (test code = See_Comment H [Auto mated 1975104479) message] The sy stem which generated this result transmitted reference range : 41 - 51 mmHg. The reference range was not used to interpret this result as normal/abnormal . PO2 AALIYAH (test code = See_Comment H [Autom ated 0782162407) message] The sy stem which generated this result transmitted reference range : 25 - 40 mmHg. The reference range was not used to interpret this result as normal/abnormal . HCO3 AALIYAH (test code = See_Comment H [Auto mated 0076878428) message] The sy stem which generated this result transmitted reference range : 24 - 28 mEq/L. The reference range was not used to interpret this result as normal/abnormal . AC VBE(BEAKER) (test mEq/L code = 3961848659) THB AALIYAH (test code = 12.6 g/dL 12.0-16.0 1685096818) %O2HB AALIYAH (test code = 88.7 % 52.0-63.0 H 5499962518) %COHB AALIYAH (test code = 0.8 % 0.0-1.5 6045040319) %METHB AALIYAH (test code = 0.1 % 0.4-1.5 L 0905731477) VOL%O2 AALIYAH (test code = 15.7 % 6.0-12.0 H 2083453820) NA (test code = 142 mmol/L 135-145 0835078164) K+ (test code = 4.3 mmol/L 3.5-5.0 6304927335) AC CA IONZ (test code = 4.80 mg/dL 4.50-5.30 3012985887) GLUCOSE (test code = 92 mg/dL 70-110 6900278191) LACTIC ACID (test code 1.16 mmol/L 0.50-2.20 = 9434005354) Lab Interpretation Abnormal (test code = 83128-3) [facility] with [id number] 09:36:44 Test Item Value Reference Range Interpretation Comments WBC (test code = See_Comment L [Automated 6690-2) message] The sy stem which generated this result transmitted reference range : 4.30 - 11.10 10*3/?L. The reference range was not used to interpret this result as normal/abnormal . RBC (test code = See_Comment [Automated 789-8) message] The sy stem which generated this result transmitted reference range : 3.93 - 5.25 10*6/?L. The reference range was not used to interpret this result as normal/abnormal . HGB (test code = 11.4 g/dL 11.6-15.0 L 718-7) HCT (test code = 38.7 % 35.7-45.2 4544-3) MCV (test code = 95.8 fL 80.6-95.5 H 787-2) MCH (test code = 28.2 pg 25.9-32.8 785-6) MCHC (test code = 29.5 g/dL 31.6-35.1 L 786-4) RDW-SD (test code = 55.5 fL 39.0-49.9 H 05711-5) RDW-CV (test code = 15.8 % 12.0-15.5 H 788-0) PLT (test code = See_Comment [Automated 777-3) message] The sy stem which generated this result transmitted reference range : 166 - 358 10*3/ ?L. The reference r crispin was not used to interpret this result as normal/abnormal . MPV (test code = 9.5 fL 9.5-12.9 37875-2) NRBC/100 WBC (test See_Comment [Automat ed code = 6191112624) message] The system which generated this result transmitted reference range : 0.0 - 10.0 /100 WBCs. The refer ence range was not u sed to interpret th is result as normal/abnormal . NRBC x10^3 (test code <0.01 See_Comment [Auto mated = 5238121999) message] The s ystem which generated this result transmitted reference range : 10*3/?L. The reference range was not used to interpret this result as normal/abnormal . GRAN MAT (NEUT) % 75.1 % (test code = 770-8) IMM GRAN % (test code 0.20 % = 2969972710) LYMPH % (test code = 13.1 % 736-9) MONO % (test code = 11.4 % 5905-5) EOS % (test code = 0.0 % 713-8) BASO % (test code = 0.2 % 706-2) GRAN MAT x10^3(ANC) 3.09 10*3/uL 1.88-7.09 (test code = 8750381575) IMM GRAN x10^3 (test <0.03 0.00-0.06 code = 8970969605) LYMPH x10^3 (test code 0.54 10*3/uL 1.32-3.29 L = 731-0) MONO x10^3 (test code 0.47 10*3/uL 0.33-0.92 = 742-7) EOS x10^3 (test code = <0.03 0.03-0.39 L 711-2) BASO x10^3 (test code <0.03 0.01-0.07 = 704-7) Lab Interpretation Abnormal (test code = 37098-5) [facility] 20 + LACTIC [id number] 03:48:20 Test Item Value Reference Range Interpretation Comments PH (test code = 2) 7.35-7.45 L PCO2 (test code = See_Comment H [Automate d 1121853433) message] The sy stem which generated this result transmitted reference range : 35 - 45 mmHg. The reference range was not used to interpret this result as normal/abnormal . PO2 (test code = See_Comment L [Automated 4978203423) message] The sy stem which generated this result transmitted reference range : 80 - 100 mmHg. The reference range was not used to interpret this result as normal/abnormal . HCO3 (test code = See_Comment H [Automate d 9933089987) message] The sy stem which generated this result transmitted reference range : 22 - 26 mEq/L. The reference range was not used to interpret this result as normal/abnormal . BE (test code = See_Comment H [Automated 1941231901) message] The sy stem which generated this result transmitted reference range : -3.0 - 3.0 mEq/ L. The reference r crispin was not used to interpret this result as normal/abnormal . THB (test code = 13.6 g/dL 12.0-16.0 2233301743) %O2HB (test code = 94.4 % 94.0-99.0 8782270680) %COHB ART (test code = 1.2 % 0.0-1.5 7550458015) %METHB ART (test code = 0.0 % 0.4-1.5 L 5862688185) VOL%O2 ART (test code = 18.1 % 15.0-23.0 9925924557) NA (test code = 143 mmol/L 135-145 8182432000) K+ (test code = 4.3 mmol/L 3.5-5.0 2405725797) AC CA IONZ (test code = 4.80 mg/dL 4.50-5.30 6655678232) GLUCOSE (test code = 120 mg/dL 70-110 H 0625542848) LACTIC ACID (test code 0.99 mmol/L 0.50-2.20 = 3962228512) Lab Interpretation Abnormal (test code = 39045-2) [facility] CARE VENOUS BLOOD [id number] 01:07:34 Test Item Value Reference Range Interpretation Comments PH (test code = 7.32-7.42 L 7507261003) PCO2 AALIYAH (test code = See_Comment H [Auto mated message] 8425581850) The system [employer] generated this result transmitted ref erence range: 41 - 51 mmHg. The reference r crispin was not used to interpret this result as normal/abnor mal. PO2 AALIYAH (test code = See_Comment H [Autom ated message] 3152333153) The system [employer] generated this result transmitted ref erence range: 25 - 40 mmHg. The reference r crispin was not used to interpret this result as normal/abnor mal. HCO3 AALIYAH (test code = See_Comment H [Auto mated message] 4620183983) The system [employer] generated this result transmitted ref erence range: 24 - 28 mEq/L. The reference r crispin was not used to interpret this result as normal/abnor mal. AC VBE(BEAKER) (test mEq/L code = 1720748426) Lab Interpretation (test Abnormal code = 70388-0) [facility]wayPROCALCITONIN2021-06-23 00:57:28 Test Item Value Reference Interpretation Comments Range Procalcitonin (test <0.02 See_Comment [Automa cristhian code = 8579095009) message] The system which generated this result transmitted reference range: <0.07 ng/mL. The reference range was not used to interpret this result as normal/abnormal . CHRISTINE (test code = INTERPRETATION OF CHRISTINE) PROCALCITONIN RESULTS IN ADULTS >= 18 YEARS OF AGE Initiation and discontinuation of antibiotics on patients with suspected or confirmed Lower Respiratory Tract Infection in Adults >= 18 years of age. + +------ + ----+ +|Procalcit onin |Interpretation ?|Antibiotic ? ? |Considerations ? |ng/mL ? | ?|recommendation | ? + +------ + ----+ +| <0.1 ? | Bacterial ? ? ?| Strongly ? ? ?| ? | ?| infection very | discouraged ? | Overruling: ? | ?| unlikely ? ? ? | ? | ? Clinically unstable ? ? ? + +------ + ----+ ? High risk for adverse ? ? | <0.25 ?| Bacterial ? ? ?| Discouraged ? | ? outcome ? | ?| infection ? ? ?| ? | ? SEE IMPORTANT NOTE ?| ?| unlikely ? ? ? | ? | ? + +------ + ----+ +| >=0.25 ? ? ? | Bacterial ? ? ?| Encouraged ? ?| ? | ?| infection ? ? ?| ? | ? | ?| likely ? | ? | Consider treatment failure ?+ +----- + -----+ if levels does not decrease | >0.5 ? | Bacterial ? ? ?| Strongly ? ? ?| appropriately ? | ?| infection very | encouraged ? ?| ? | ?| likely ? | ? | ? + +------ + ----+ + Discontinuation of antibiotics in high-acuity patients with suspected or confirmed sepsis in Adults >= 18 years of age. + +------ + ----+ +|Procalcit onin |Interpretation ?|Antibiotic ? ? |Considerations ? |ng/mL ? | ?|recommendation | ? + +------ + ----+ +| <0.25 ?| Bacterial ? ? ?| Strongly ? ? ?| ? | ?| infection very | discouraged ? | Overruling: ? | ?| unlikely ? ? ? | ? | ? Clinically unstable ? ? ? + +------ + ----+ ? High risk for adverse ? ? | <0.5 or drop | Bacterial ? ? ?| Discouraged ? | ? outcome ? | >80% from ? ?| infection ? ? ?| ? | ? SEE IMPORTANT NOTE ?| highest PCT ?| unlikely ? ? ? | ? | ? | level ?| ?| ? | ? + +------ + ----+ +| >=0.5 ?| Bacterial ? ? ?| Encouraged ? ?| ? | ?| infection ? ? ?| ? | ? | ?| likely ? | ? | Consider treatment failure ?+ +----- + -----+ if levels does not decrease | >1.0 ? | Bacterial ? ? ?| Strongly ? ? ?| appropriately ? | ?| infection very | encouraged ? ?| ? | ?| likely ? | ? | ? + +------ + ----+ + Percentage of drop of Procalcitonin calculation for Discontinuation of antibiotics in high-acuity patients with suspected or confirmed sepsis in Adults >= 18 years of age. ? Procalcitonin highest{}-Procalcitoni n current{}Delta Procalcitonin = ___ x100% ? Procalcitonin current {} IMPORTANT NOTE: Procalcitonin may be elevated without bacterial infection by physiologic stress related to trauma, nance, chronic dialysis, metastatic cancer, surgery in the past seven days, malaria, some fungal infections, and some forms of vasculitis. The interpretation algorithm may not apply to patients with immunosuppression (equivalent of >10 mg of prednisone daily), HIV with CD4 cell count < 350 cells/mm3, active malignancy on systemic chemotherapy, solid organ transplant or hematopoietic stem cell transplantation, or hospital acquired pneumonia. Additionally, some clinical trials of procalcitonin have excluded patients with shock requiring vasopressor use, acute respiratory failure requiring mechanical ventilation, or those with known lung abscess/empyema. For further information please refer to:[email or web address] Lab Interpretation Normal (test code = 31663-8) [facility]wayAdelaide [id number] 23:45:01 Test Item Value Reference Range Interpretation Comments TROPONIN I (test 0.029 ng/mL See_Comment Hemolyzed code = 4854868567) specimen [Automated message] The system which generated this result transmitted reference range : <=0.034. The reference range was not used to interpret this result as normal/abnormal . CHRISTINE (test code = Equal or Less than CHRISTINE) 0.034 ng/ml---Normal ?Note: Cardiac troponin begins to rise 3-4 hours after the onset of ischemia. Repeat in 4-6 hours if the sample was drawn within 3-4 hours of the onset of the symptom and found normal. Between 0.035 and 0.120 ng/mL--- Borderline. Questionable myocardial injury or necrosis ? ?Note: Serial measurement may be necessary to confirm or exclude the diagnosis of myocardial injury or necrosis; Clinical correlation (symptoms, EKGs, imaging studies, and others) required; Repeat in 4-6 hours if clinically indicated. ? Equal or Higher than 0.121 ng/mL---Abnormal. Myocardial Injury or Necrosis Likely ? Biotin has been reported to cause a negative bias, interpret results relative to patient's use of biotin. ? Lab Interpretation Normal (test code = 02047-1) [facility] LakewayN-Terminal [id number] 23:12:52 Test Item Value Reference Range Interpretation Comments NT-proBNP (test code 1880 pg/mL See_Comment H [Autom ated = 3913855946) message] The system which generated this result transmitted reference range : <=125. The reference range was not used to interpret this result as normal/abnormal . CHRISTINE (test code = CHRISTINE) Biotin has been reported to cause a negative bias, interpret results relative to patient's use of biotin. Lab Interpretation Abnormal (test code = 14313-1) [facility] Arterial Blood Gas.2020-11-27 23:07:45 Test Item Value Reference Range Interpretation Comments PH (test code = 2) 7.35-7.45 L PCO2 (test code = See_Comment H [Automate d message] 9340272360) The system [employer] generated this result transmitted ref erence range: 35 - 45 mmHg. The reference r crispin was not used to interpret this result as normal/abnor mal. PO2 (test code = See_Comment H [Automated message] 3385856225) The system [employer] generated this result transmitted ref erence range: 80 - 100 mmHg. The reference r crispin was not used to interpret this result as normal/abnor mal. HCO3 (test code = See_Comment H [Automate d message] 5464283760) The system [employer] generated this result transmitted ref erence range: 22 - 26 mEq/L. The reference r crispin was not used to interpret this result as normal/abnor mal. BE (test code = See_Comment H [Automated message] 6928034227) The system [employer] generated this result transmitted ref erence range: -3.0 - 3 .0 mEq/L. The refe rence range was not u sed to interpret this result as normal/abnor mal. Lab Interpretation (test Abnormal code = 26045-4) [facility] LakewayGAMMA [id number] 23:03:29 Test Item Value Reference Range Interpretation Comments GGT (test code = 8109163397) 16 U/L 13-40 Lab Interpretation (test code = Normal 68234-9) [facility] LakewayTROPONIN [id number] 16:26:41 Test Item Value Reference Range Interpretation Comments TROPONIN I (test 0.033 ng/mL See_Comment [Automated code = 3306957887) message] The system which generated this result transmitted reference range : <=0.034. The reference range was not used to interpret this result as normal/abnormal . CHIRSTINE (test code = Equal or Less than CHRISTINE) 0.034 ng/ml---Normal ?Note: Cardiac troponin begins to rise 3-4 hours after the onset of ischemia. Repeat in 4-6 hours if the sample was drawn within 3-4 hours of the onset of the symptom and found normal. Between 0.035 and 0.120 ng/mL--- Borderline. Questionable myocardial injury or necrosis ? ?Note: Serial measurement may be necessary to confirm or exclude the diagnosis of myocardial injury or necrosis; Clinical correlation (symptoms, EKGs, imaging studies, and others) required; Repeat in 4-6 hours if clinically indicated. ? Equal or Higher than 0.121 ng/mL---Abnormal. Myocardial Injury or Necrosis Likely ? Biotin has been reported to cause a negative bias, interpret results relative to patient's use of biotin. ? Lab Interpretation Normal (test code = 51336-7) [facility] LakewayXR CHEST 1 [id number] 16:26:25HISTORY: SOB. TECHNIQUE: Portable AP erect view of the chest is obtained. Comparison ismade with 11/10/2020 study. FINDINGS congestion noted in the left lower lung, suspicious for developinginfiltrate. Rest of the lungs are clear but showed obstructive lungdisease. Mild cardiomegaly noted. No pneumothorax or pleural effusion. CONCLUSIONS: COPD and suspicious findings of developing pneumonia inretrocardiac left lower lung.[facility], Radiant Results Inft User - 11/27/2020 11:27 AM CDT HISTORY: SOB.TECHNIQUE: Portable AP erect view of the chest is ob tained. Comparison ismade with 11/10/2020 study.FINDINGS congestion noted in the left lower lung, suspicious for developinginfiltrate. Rest of the lungs are clear but showed obstructive lungdisease. Mildcardiomegaly noted. No pneumothorax or pleural effusion.CONCLUSIONS: COPD and suspicious findings of developing pneumonia inretrocardiac left lower lung.[facility] LakewayCOMP. METABOLIC PANEL (26592)2020-11-27 16:21:42 Test Item Value Reference Range Interpretation Comments NA (test code = 141 mmol/L 135-145 1893737060) K (test code = 3.7 mmol/L 3.5-5.0 6971746185) CL (test code = 97 mmol/L 98-108 L 1638832564) CO2 TOTAL (test code = 38 mmol/L 23-31 H 0141644335) AGAP (test code = 2-16 0983634464) BUN (test code = 36 mg/dL 7-23 H 2772682639) GLUCOSE (test code = 128 mg/dL 70-110 H 6576311640) CREATININE (test code = 0.58 mg/dL 0.50-1.04 8425419114) TOTAL BILI (test code = 0.3 mg/dL 0.1-1.2 3291983177) CALCIUM (test code = 9.5 mg/dL 8.6-10.6 2342472177) T PROTEIN (test code = 7.0 g/dL 6.3-8.2 1220961757) ALBUMIN (test code = 3.4 g/dL 3.5-5.0 L 5665384027) ALK PHOS (test code = 168 U/L 34-122 H 9527805474) ALTv (test code = 10 U/L 5-35 2-6) AST(SGOT) (test code = 23 U/L 13-40 7274216102) eGFR (test code = mL/min/1.73m2 2009944049) CHRISTINE (test code = CHRISTINE) Association of Glomerular Filtration Rate (GFR) and Staging of Kidney Disease* + --+ --+ ------+| GFR (mL/min/1.73 m2) ?| With Kidney Damage ?| ?Without Kidney Damage+ --------+ --------+ +| ?>90 ?| ?Stage one ?| ? Normal ?+ ---+ ---+ -------+| ?60-89 ?| ?Stage two ?| ? Decreased GFR ? + --+ --+ ------+| ?30-59 ?| ?Stage three ?| ? Stage three ? + --+ --+ ------+| ?15-29 ?| ?Stage four ? | ? Stage four ?+ ---+ ---+ -------+| ?<15 (or dialysis) ? ?| ?Stage five ? | ? Stage five ?+ ---+ ---+ -------+ *Each stage assumes the associated GFR level has been in effect for at least three months. ?Stages 1 to 5, with or without kidney disease, indicate chronic kidney disease. Notes: Determination of stages one and two (with eGFR >59mL/min/1.73 m2) requires estimation of kidney damage for at least three months as defined by structural or functional abnormalities of the kidney, manifested by either:Pathological abnormalities or Markers of kidney damage (including abnormalities in the composition of the blood or urine or abnormalities in imaging tests). Lab Interpretation Abnormal (test code = 01011-2) [facility]2020-11-27 16:15:24 Test Item Value Reference Range Interpretation Comments SARS-CoV-2 Rapid ID NOW Not Detected Not Detected (test code = 94064-6) CHRISTINE (test code = CHRISTINE) ID NOW COVID-19 Assay is an isothermal nucleic acid amplification test intended for the qualitative detection of nucleic acid from SARS-CoV-2 viral RNA in nasopharyngeal ([employer]ATOR) specimens. It is used under Emergency Use Authorization (EUA) by FDA. The limit of detection (LOD) of the assay is 125 Genome Equivalents/mL. A positive result is indicative of the presence of SARS-CoV-2 RNA. ?Clinical correlation with patient history and other diagnostic information is necessary to determine patient infection status. A negative (Not Detected) result does not preclude SARS-CoV-2 infection. In patients with clinical symptoms and other tests that are consistent with SARS-CoV-2 infection, negative results should be treated as presumptive negative and a new specimen should be tested with alternative PCR molecular test. Invalid: Please collect a new specimen for repeat patient testing if clinically indicated. Lab Interpretation Normal (test code = 99333-2) [facility] WITH [id number] 16:02:41 Test Item Value Reference Range Interpretation Comments WBC (test code = See_Comment [Automated 8090-2) message] The sy stem which generated this result transmitted reference range : 4.30 - 11.10 10*3/?L. The reference range was not used to interpret this result as normal/abnormal . RBC (test code = See_Comment [Automated 769-8) message] The sy stem which generated this result transmitted reference range : 3.93 - 5.25 10*6/?L. The reference range was not used to interpret this result as normal/abnormal . HGB (test code = 12.6 g/dL 11.6-15.0 718-7) HCT (test code = 41.9 % 35.7-45.2 4544-3) MCV (test code = 95.4 fL 80.6-95.5 787-2) MCH (test code = 28.7 pg 25.9-32.8 785-6) MCHC (test code = 30.1 g/dL 31.6-35.1 L 786-4) RDW-SD (test code = 55.8 fL 39.0-49.9 H 61042-7) RDW-CV (test code = 16.0 % 12.0-15.5 H 788-0) PLT (test code = See_Comment [Automated 777-3) message] The sy stem which generated this result transmitted reference range : 166 - 358 10*3/ ?L. The reference r crispin was not used to interpret this result as normal/abnormal . MPV (test code = 9.8 fL 9.5-12.9 10667-2) NRBC/100 WBC (test See_Comment [Automat ed code = 5869392594) message] The system which generated this result transmitted reference range : 0.0 - 10.0 /100 WBCs. The refer ence range was not u sed to interpret th is result as normal/abnormal . NRBC x10^3 (test code <0.01 See_Comment [Auto mated = 6182335928) message] The s ystem which generated this result transmitted reference range : 10*3/?L. The reference range was not used to interpret this result as normal/abnormal . GRAN MAT (NEUT) % 81.4 % (test code = 770-8) IMM GRAN % (test code 0.50 % = 1207608777) LYMPH % (test code = 11.1 % 736-9) MONO % (test code = 5.9 % 5905-5) EOS % (test code = 0.3 % 713-8) BASO % (test code = 0.8 % 706-2) GRAN MAT x10^3(ANC) 6.04 10*3/uL 1.88-7.09 (test code = 3883651862) IMM GRAN x10^3 (test 0.04 10*3/uL 0.00-0.06 code = 5430534455) LYMPH x10^3 (test code 0.82 10*3/uL 1.32-3.29 L = 731-0) MONO x10^3 (test code 0.44 10*3/uL 0.33-0.92 = 742-7) EOS x10^3 (test code = <0.03 0.03-0.39 L 711-2) BASO x10^3 (test code 0.06 10*3/uL 0.01-0.07 = 704-7) Lab Interpretation Abnormal (test code = 75904-2) [facility] + LACTIC [id number] 15:52:05 Test Item Value Reference Range Interpretation Comments PH (test code = 7.32-7.42 1916021661) PCO2 AALIYAH (test code = See_Comment H [Auto mated [id number]) message] The sy stem which generated this result transmitted reference range : 41 - 51 mmHg. The reference range was not used to interpret this result as normal/abnormal . PO2 AALIYAH (test code = See_Comment [Autom ated 1162946828) message] The sy stem which generated this result transmitted reference range : 25 - 40 mmHg. The reference range was not used to interpret this result as normal/abnormal . HCO3 AALIYAH (test code = See_Comment H [Auto mated 5610573912) message] The sy stem which generated this result transmitted reference range : 24 - 28 mEq/L. The reference range was not used to interpret this result as normal/abnormal . AC VBE(BEAKER) (test mEq/L code = 0705580156) THB AALIYAH (test code = 13.9 g/dL 12.0-16.0 3829671973) %O2HB AALIYAH (test code = 61.0 % 52.0-63.0 1491151791) %COHB AALIYAH (test code = 3.2 % 0.0-1.5 H 0659638097) %METHB AALIYAH (test code = 0.3 % 0.4-1.5 L 2376207068) VOL%O2 AALIYAH (test code = 11.9 % 6.0-12.0 8839176094) NA (test code = 141 mmol/L 135-145 1421301987) K+ (test code = 4.3 mmol/L 3.5-5.0 4686100777) AC CA IONZ (test code = 4.50 mg/dL 4.50-5.30 0395682247) GLUCOSE (test code = 133 mg/dL 70-110 H 4415315779) LACTIC ACID (test code 1.92 mmol/L 0.50-2.20 = 7519623177) Lab Interpretation Abnormal (test code = 58510-2) [facility] [id number] 21:02:27 Test Item Value Reference Range Interpretation Comments NT-proBNP (test code 607 pg/mL See_Comment H [Autom ated = 6852511838) message] The system which generated this result transmitted reference range : <=125. The reference range was not used to interpret this result as normal/abnormal . CHRISTINE (test code = CHRISTINE) Biotin has been reported to cause a negative bias, interpret results relative to patient's use of biotin. Lab Interpretation Abnormal (test code = 87228-1) [facility]REACT[facility] [id number] 18:59:27 Test Item Value Reference Range Interpretation Comments CRP (test code = 6000833964) 6.5 mg/dL <0.8 H Lab Interpretation (test code = Abnormal 23563-8) [facility] CULTURE [id number] 15:59:00 Test Item Value Reference Range Interpretation Comments Blood Culture-Aerobic No organisms No growth Previo us (test code = 95369-8) isolated prelim inary verified result was Culture In Progress on 11/10/2020 at 195 7 CDT Blood Culture positive. No growth AA Previous Culture-Anaerobic See Blood Culture preli minary (test code = 88981-9) Workup for verifi ed result additional was Culture In information. Progress on 11/10/2020 at 070 1 CDT Lab Interpretation Abnormal (test code = 09738-1) [facility] CULTURE [id number] 15:58:24 Test Item Value Reference Range Interpretation Comments Blood Culture Shewanella algae Sperry mor phologically Workup (test consistent with code = 600-7) organism above For susceptibility results, refer to culture # - [id number] Gram stain Isolated from (test code = anaerobic bottle 664-3) Gram negative bacilli [facility] CULTURE [id number] 15:56:17 Test Item Value Reference Range Interpretation Comments Blood Culture-Aerobic Culture positive. No growth AA P revious (test code = 31369-6) See Blood Culture p reliminary Workup for verified result additional was Culture In information. Progress on 11/10/2020 at 070 1 CDT Blood No organisms No growth Previous Culture-Anaerobic isolated preliminar y (test code = 72819-5) verifi ed result was Culture In Progress on 11/10/2020 at 200 0 CDT Lab Interpretation Abnormal (test code = 83272-8) [facility]AL[facility]IN2021-06-08 06:21:11 Test Item Value Reference Range Interpretation Comments Procalcitonin (test 0.10 ng/mL <0.07 H code = 7266344016) CHRISTINE (test code = CHRISTINE) INTERPRETATION OF PROCALCITONIN RESULTS IN ADULTS >= 18 YEARS OF AGE Initiation and discontinuation of antibiotics on patients with suspected or confirmed Lower Respiratory Tract Infection in Adults >= 18 years of age. + +-------- --------+ + -----+|Procalcitonin |Interpretation ?|Antibiotic ? ? |Considerations ? |ng/mL ? | ?|recommendation | ? + +-------- --------+ + -----+| <0.1 ? | Bacterial ? ? ?| Strongly ? ? ?| ? | ?| infection very | discouraged ? | Overruling: ? | ?| unlikely ? ? ? | ? | ? Clinically unstable ? ? ? + +-------- --------+ + ? High risk for adverse ? ? | <0.25 ?| Bacterial ? ? ?| Discouraged ? | ? outcome ? | ?| infection ? ? ?| ? | ? SEE IMPORTANT NOTE ?| ?| unlikely ? ? ? | ? | ? + +-------- --------+ + -----+| >=0.25 ? ? ? | Bacterial ? ? ?| Encouraged ? ?| ? | ?| infection ? ? ?| ? | ? | ?| likely ? | ? | Consider treatment failure ?+ +------- ---------+ -+ if levels does not decrease | >0.5 ? | Bacterial ? ? ?| Strongly ? ? ?| appropriately ? | ?| infection very | encouraged ? ?| ? | ?| likely ? | ? | ? + +-------- --------+ + -----+ Discontinuation of antibiotics in high-acuity patients with suspected or confirmed sepsis in Adults >= 18 years of age. + +-------- --------+ + -----+|Procalcitonin |Interpretation ?|Antibiotic ? ? |Considerations ? |ng/mL ? | ?|recommendation | ? + +-------- --------+ + -----+| <0.25 ?| Bacterial ? ? ?| Strongly ? ? ?| ? | ?| infection very | discouraged ? | Overruling: ? | ?| unlikely ? ? ? | ? | ? Clinically unstable ? ? ? + +-------- --------+ + ? High risk for adverse ? ? | <0.5 or drop | Bacterial ? ? ?| Discouraged ? | ? outcome ? | >80% from ? ?| infection ? ? ?| ? | ? SEE IMPORTANT NOTE ?| highest PCT ?| unlikely ? ? ? | ? | ? | level ?| ?| ? | ? + +-------- --------+ + -----+| >=0.5 ?| Bacterial ? ? ?| Encouraged ? ?| ? | ?| infection ? ? ?| ? | ? | ?| likely ? | ? | Consider treatment failure ?+ +------- ---------+ -+ if levels does not decrease | >1.0 ? | Bacterial ? ? ?| Strongly ? ? ?| appropriately ? | ?| infection very | encouraged ? ?| ? | ?| likely ? | ? | ? + +-------- --------+ + -----+ Percentage of drop of Procalcitonin calculation for Discontinuation of antibiotics in high-acuity patients with suspected or confirmed sepsis in Adults >= 18 years of age. ? Procalcitonin highest{}-Procalcitonin current{}Delta Procalcitonin = x100% ? Procalcitonin current {} IMPORTANT NOTE: Procalcitonin may be elevated without bacterial infection by physiologic stress related to trauma, nance, chronic dialysis, metastatic cancer, surgery in the past seven days, malaria, some fungal infections, and some forms of vasculitis. The interpretation algorithm may not apply to patients with immunosuppression (equivalent of >10 mg of prednisone daily), HIV with CD4 cell count < 350 cells/mm3, active malignancy on systemic chemotherapy, solid organ transplant or hematopoietic stem cell transplantation, or hospital acquired pneumonia. Additionally, some clinical trials of procalcitonin have excluded patients with shock requiring vasopressor use, acute respiratory failure requiring mechanical ventilation, or those with known lung abscess/empyema. For further information please refer to:[email or web address] Lab Interpretation Abnormal (test code = 18517-3) [facility] COVID [id number] 17:28:08COVID DMT InterpretationInterpretation/Recommendations: Molecular NAAT Tests for Active Infection with the SARS-CoV-2 Virus: The patient has currently tested negative for the SARS-CoV-2 virus that causes COVID-19 illness. This most likely indicates that the patient does not have an active infection with the SARS-CoV-2 virus. However, infection is not completely ruled out as the false negative rate for molecular NAAT testing using a nasopharyngeal sample can be up to 30%, mostly dependent on the timing of sample collection in relation to illness onset and any deficiencies in sampling techniques. If the patient has symptoms concerning for COVID-19 illness, a repeat NAAT test (PCR, Rapid ID Now, etc.) should be performed, at which time the SARS-CoV-2 virus - if present - may have reached a detectable viral load (usually peaking by the end of the first week of symptoms). Tests for IgM and/or IgG Antibodies to the SARS-CoV-2 Virus: If the patient develops COVID-19 illness in the future, testing for IgM and IgG antibodies approximately 3 weeks after illness onset will likely indicate if the patient has produced antibodies to the SARS-CoV-2 virus. However, some patients may take longer to develop detectable antibodies, while some patients who were infected with SARS-CoV-2 may never develop antibodies. While antibodies to SARS-CoV-2 may provide some degree of immunity, at this time the strength and duration of the antibody response is unknown. ? ? Interpretation Result Comments:These interpretation comments are based upon all COVID-19 testing the patient has had at [facility], including molecular NAAT testing (more commonly known as PCR testing and Rapid ID Now testing) and antibody testing. It does not take into account any testing that a patient has had outside of the [facility] medical record. [facility] LABORATORY SERVICESCOVID ResultsSA RS-CoV-2 Rapid ID NOW (no units) ? ? Date ? Value ? 11/10/2020 ? Not Detected ? [facility] [id number] 15:25:49 Test Item Value Reference Range Interpretation Comments FREE T4 (test code = See_Comment [Autom ated message] 4225813742) The system [place] [employer] generated this result transmitted ref erence range: 0.78 - 2 .20 ng/dL:. The ref erence range was not u sed to interpret this result as normal/abnor mal. Lab Interpretation (test Normal code = 41898-3) [facility] [id number] 15:25:34 Test Item Value Reference Range Interpretation Comments FREE T3 (test code = 0025922579) 2.05 pg/mL 2.77-5.27 L Lab Interpretation (test code = Abnormal 28721-1) [facility]wayXR CHEST 1 [id number] 14:46:22 Chronic emphysematous changes with possible infectious/inflammatoryexacerbation versus mild interstitial edema. Preliminary Report Dictated by Resident: Manav Madrid MD., have reviewed this study and agree withthe above report.XR CHEST 1 VW History: Fever, cough Comparison: None available Technique: Frontal radiograph Findings: Chronic emphysematous changes are observed manifested by hyperinflation ofthe thorax, patchy lucencies, and scarring. Interstitial opacities in theleft and right midlung dumont noted. No pleural effusion or pneumothorax isidentified. The cardiomediastinal silhouette is normal in size. Atheroscleroticcalcifications are seen in the aortic arch. No acute osseous abnormality is present. Osteopenia. [facility], Radiant Results Inft User - 11/12/2020 9:47 AM CDT XR CHEST 1 VWHistory: Fever, cough Comparison: None availableTechnique: Frontal radiographFindings:Chronic emphysematous changes are observed manifested by hyperinflation ofthe thorax, patchy lucencies, and scarring. Interstitial opacities in theleft and right midlung dumotn noted. No pleural effusion or pneumothorax isidentified. The cardiomediastinal silhouette is normal in size. Atheroscleroticcalcifications are seen in the aortic arch.No acute osseous abnormality is present. Osteopenia.IMPRESSIONChronic emphysematous changes with possible infectious/inflammatoryexacerbation versus mild interstitial edema.Preliminary Report Dictated by Resident: Wendie Khan, Manav Lorenzo MD., have reviewed this study and agree withthe above report. [facility]way[facility] Met[facility] Panel (NA, K, CL, CO2, GLUCOSE, BUN, CREATININE, CA)2020-11-12 14:40:25 Test Item Value Reference Range Interpretation Comments NA (test code = 136 mmol/L 135-145 4740283758) K (test code = 4.1 mmol/L 3.5-5.0 7571370222) CL (test code = 100 mmol/L 98-108 2322388981) CO2 TOTAL (test code = 32 mmol/L 23-31 H 6256037226) AGAP (test code = 2-16 6016323345) BUN (test code = 22 mg/dL 7-23 8458550168) GLUCOSE (test code = 90 mg/dL 70-110 9507432237) CREATININE (test code = 0.45 mg/dL 0.50-1.04 L 3127999643) CALCIUM (test code = 9.4 mg/dL 8.6-10.6 4034034594) eGFR (test code = mL/min/1.73m2 5859234463) CHRISTINE (test code = CHRISTINE) Association of Glomerular Filtration Rate (GFR) and Staging of Kidney Disease* + --+ --+ ------+| GFR (mL/min/1.73 m2) ?| With Kidney Damage ?| ?Without Kidney Damage+ --------+ --------+ +| ?>90 ?| ?Stage one ?| ? Normal ?+ ---+ ---+ -------+| ?60-89 ?| ?Stage two ?| ? Decreased GFR ? + --+ --+ ------+| ?30-59 ?| ?Stage three ?| ? Stage three ? + --+ --+ ------+| ?15-29 ?| ?Stage four ? | ? Stage four ?+ ---+ ---+ -------+| ?<15 (or dialysis) ? ?| ?Stage five ? | ? Stage five ?+ ---+ ---+ -------+ *Each stage assumes the associated GFR level has been in effect for at least three months. ?Stages 1 to 5, with or without kidney disease, indicate chronic kidney disease. Notes: Determination of stages one and two (with eGFR >59mL/min/1.73 m2) requires estimation of kidney damage for at least three months as defined by structural or functional abnormalities of the kidney, manifested by either:Pathological abnormalities or Markers of kidney damage (including abnormalities in the composition of the blood or urine or abnormalities in imaging tests). Lab Interpretation Abnormal (test code = 28096-8) [facility] with [id number] 14:31:27 Test Item Value Reference Range Interpretation Comments WBC (test code = See_Comment [Automated 1295-2) message] The sy stem which generated this result transmitted reference range : 4.30 - 11.10 10*3/?L. The reference range was not used to interpret this result as normal/abnormal . RBC (test code = See_Comment [Automated 378-2) message] The sy stem which generated this result transmitted reference range : 3.93 - 5.25 10*6/?L. The reference range was not used to interpret this result as normal/abnormal . HGB (test code = 12.5 g/dL 11.6-15.0 718-7) HCT (test code = 40.0 % 35.7-45.2 4544-3) MCV (test code = 90.3 fL 80.6-95.5 787-2) MCH (test code = 28.2 pg 25.9-32.8 785-6) MCHC (test code = 31.3 g/dL 31.6-35.1 L 786-4) RDW-SD (test code = 51.8 fL 39.0-49.9 H 88364-2) RDW-CV (test code = 15.5 % 12.0-15.5 788-0) PLT (test code = See_Comment [Automated 777-3) message] The sy stem which generated this result transmitted reference range : 166 - 358 10*3/ ?L. The reference r crispin was not used to interpret this result as normal/abnormal . MPV (test code = 9.5 fL 9.5-12.9 57656-7) NRBC/100 WBC (test See_Comment [Automat ed code = 5699700492) message] The system which generated this result transmitted reference range : 0.0 - 10.0 /100 WBCs. The refer ence range was not u sed to interpret th is result as normal/abnormal . NRBC x10^3 (test code <0.01 See_Comment [Auto mated = 5806780109) message] The s ystem which generated this result transmitted reference range : 10*3/?L. The reference range was not used to interpret this result as normal/abnormal . GRAN MAT (NEUT) % 73.8 % (test code = 770-8) IMM GRAN % (test code 0.50 % = 5870486732) LYMPH % (test code = 11.0 % 736-9) MONO % (test code = 11.9 % 5905-5) EOS % (test code = 2.4 % 713-8) BASO % (test code = 0.4 % 706-2) GRAN MAT x10^3(ANC) 5.89 10*3/uL 1.88-7.09 (test code = 0574882016) IMM GRAN x10^3 (test 0.04 10*3/uL 0.00-0.06 code = 4429789077) LYMPH x10^3 (test code 0.88 10*3/uL 1.32-3.29 L = 731-0) MONO x10^3 (test code 0.95 10*3/uL 0.33-0.92 H = 742-7) EOS x10^3 (test code = 0.19 10*3/uL 0.03-0.39 711-2) BASO x10^3 (test code 0.03 10*3/uL 0.01-0.07 = 704-7) Lab Interpretation Abnormal (test code = 65019-6) [facility]wayTHYROID STIMULATING [id number] 00:51:55 Test Item Value Reference Range Interpretation Comments TSH (test code = See_Comment H [Automated message] 2028987929) The system [employer] generated this result transmitted ref erence range: 0.45 - 4 .70 mIU/L. The refe rence range was not u sed to interpret this result as normal/abnor mal. Lab Interpretation (test Abnormal code = 90501-0) [facility]wayVancomycin Trough Level - Draw no more than 60 minutes before the 1830 dose.2020-11-12 00:24:13 Test Item Value Reference Range Interpretation Comments VANCO TROUGH (test code 6.7 ug/mL 10.0-20.0 L = 6531977438) CHRISTINE (test code = CHRISTINE) Toxic Range: ?>20 ug/mL 15-20 ug/mL is recommended for severe infection or when Vancomycin MARCELLA is greater than or equal to 2. Lab Interpretation (test Abnormal code = 42727-0) [facility] LakewayGRAM NEGATIVE BLOOD PATHOGENS DNA [id number] 09:16:52 Test Item Value Reference Range Interpretation Comments Blood Pathogens by No organisms included in DNA Comment (test the Blood DNA Probe test code = 36753-3) panel were detected. Further identification workup to be performed by culture testing methods. CHRISTINE (test code = See blood culture result CHRISTINE) for additional information. ?Testing included eight identification and six resistance marker targets. [facility] LakewayCT THORAX W [id number] 18:24:48 Impression: 1. No pulmonary mass or consolidation. ?No pleural effusion.2. Moderate emphysematous changes. Right apical scarring.3. Small left pleural effusion with left basilar atelectasis or scarring.4. Moderate cardiomegaly. Coronary artery atherosclerosis.5. Multiple chronic appearing fractures inthe thoracolumbar spine andsternum. No discrete lytic lesions identified. If clinically indicated,further evaluation with MRI of the thoracic and lumbar spine may beobtained.6. Heterogeneous liver. Correlation with liver function tests is suggested. RL: 2824AFC: [id number] End of Report Exam: CT Chest Without Contrast, 11/10/2020 11:15 AM. Ordering Physician: AMANDA GLEZ. 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 Comparison: None. Technique: CT chest was obtained without contrast. ?CT was performedaccording to ALARA (As Low As Reasonably Achievable). Technical Quality: Adequate. Findings: Small left pleural effusion is noted, with leftbasilar subsegmentalatelectasis. There is right apical pleural- parenchymal scarring. Moderatecentrilobular emphysematous changes are noted. There is no parenchymalconsolidation or pulmonary mass. Central airways are patent. There is moderate cardiomegaly. There is coronary artery calcification.There is no pericardial effusion. Thoracic aorta is normal in caliber anddemonstrates mild calcified plaque.Great vessels demonstrate mildcalcified plaque proximally. ?Central pulmonary arteries are normal inc aliber. There is no mediastinal, axillary, or hilar lymphadenopathy. Liver demonstrates heterogeneous enhancement. Multiple compression fractures are demonstrated throughout thethoracolumbar spine, extending from the level of T3- L2. Chronic, displacedsternal fracture is also noted. [facility], Radiant Results Inft User - 11/10/2020 1:26 PM CDT Exam: CT Chest Without Contrast, 11/10/2020 11:15 AM.Ordering Physician: AMANDA GLEZ.History: Weight loss, cachexia in chronic smoker. Comparison: None.Technique: CT chest was obtained without contrast. CT was performedaccording to ALARA (As Low As Reasonably Achievable).Technical Quality: Adequate.Findings: Small left pleural effusion is noted, with left basilar subsegmentalatelectasis. There is right apical pleural-parenchymal scarring. Moderatecentrilobular emphysematous changes are noted. There is no parenchymalconsolidation or pulmonary mass. Central airways are patent.There is moderate cardiomegaly. There is coronary artery calcification.There is no pericardial effusion. Thoracic aorta is normal in caliber anddemonstrates mild calcified plaque. Great vessels demonstrate mildcalcified plaque proximally. Central pulmonary arteries are normal incaliber. There is no mediastinal, axillary, or hilar lymphadenopathy.Liver demonstrates heterogeneous enhancement.Multiple compression fractures are demonstrated throughout thethoracolumbar spine, extending from the level of T3-L2. Chronic, displacedsternal fracture is also noted.IMPRESSIONImpression: 1. No pulmonary mass or consolidation. No pleural effusion.2. Moderate emphysematous changes. Right apical scarring.3. Small left pleural effusion with left basilar atelectasis or scarring.4. Moderate cardiomegaly. Coronary artery atherosclerosis.5. Multiple chronic appearing fractures in the thoracolumbar spine andsternum. No discrete lytic lesions identified. If clinically indicated,further evaluation with MRI of the thoracic and lumbar spine may beo btained.6. Heterogeneous liver. Correlation with liver function tests is suggested.RL: 2824AFC: [id number] of Report [facility]wayURINALYSIS2021-06-05 09:41:46 Test Item Value Reference Range Interpretation Comments APPEARANCE (test code = Clear Clear 1483873332) COLOR (test code = Mary Ann Yellow A 2151941492) PH (test code = 4.8-8.0 7908599883) SP GRAVITY (test code = 1.003-1.030 0338398862) GLU U QUAL (test code = Normal Normal 0788420952) BLOOD (test code = Negative Negative 4045239873) KETONES (test code = Negative Negative 8886313886) PROTEIN (test code = 100 mg/dL Negative A 2887-8) UROBILIN (test code = 4.0 mg/dL Normal A 1409485819) BILIRUBIN (test code = 2 mg/dL Negative A 1364623193) NITRITE (test code = Negative Negative 1606265183) LEUK FAITH (test code = Negative Negative 5758762688) RBC/HPF (test code = See_Comment H [Autom ated message] 1700712256) The system [employer] generated this result transmit cristhian reference range : 0 - 3 HPF. The refe rence range was not u sed to interpret th is result as normal/abnormal . WBC/HPF (test code = See_Comment [Autom ated message] 6900376351) The system [place] [employer] generated this result transmit cristhian reference range : 0 - 5 HPF. The refe rence range was not u sed to interpret th is result as normal/abnormal . BACTERIA (test code = Few Negative A 0943063146) MUCOUS (test code = Slight Negative LPF A 9527856411) SQ EPITH (test code = HPF 8806349785) HYAL CAST (test code = See_Comment H [Aut omated message] 0326554874) The system [place] [employer] generated this result transmit cristhian reference range : <=2 LPF. The refere nce range was not u sed to interpret th is result as normal/abnormal . Ictotest (test code = Negative 3804830693) Lab Interpretation (test Abnormal code = 34762-6) [facility]COVID[facility] (ID NOW RAPID TESTING)2020-11-10 09:17:13 Test Item Value Reference Range Interpretation Comments SARS-CoV-2 Rapid ID NOW Not Detected Not Detected (test code = 29756-4) CHRISTINE (test code = CHRISTINE) ID NOW COVID-19 Assay is an isothermal nucleic acid amplification test intended for the qualitative detection of nucleic acid from SARS-CoV-2 viral RNA in nasopharyngeal ([employer]) specimens. It is used under Emergency Use Authorization (EUA) by FDA. The limit of detection (LOD) of the assay is 125 Genome Equivalents/mL. A positive result is indicative of the presence of SARS-CoV-2 RNA. ?Clinical correlation with patient history and other diagnostic information is necessary to determine patient infection status. A negative (Not Detected) result does not preclude SARS-CoV-2 infection. In patients with clinical symptoms and other tests that are consistent with SARS-CoV-2 infection, negative results should be treated as presumptive negative and a new specimen should be tested with alternative PCR molecular test. Invalid: Please collect a new specimen for repeat patient testing if clinically indicated. Lab Interpretation Normal (test code = 26501-5) [facility]. METABOLIC PANEL (64963)2020-11-10 09:13:10 Test Item Value Reference Range Interpretation Comments NA (test code = 137 mmol/L 135-145 7091405637) K (test code = 4.2 mmol/L 3.5-5.0 0938653689) CL (test code = 96 mmol/L 98-108 L 5141096875) CO2 TOTAL (test code = 34 mmol/L 23-31 H 4508526113) AGAP (test code = 2-16 8623807338) BUN (test code = 35 mg/dL 7-23 H 6938367137) GLUCOSE (test code = 131 mg/dL 70-110 H 1309769653) CREATININE (test code = 0.64 mg/dL 0.50-1.04 9059541699) TOTAL BILI (test code = 0.7 mg/dL 0.1-1.5 7104500495) CALCIUM (test code = 9.7 mg/dL 8.6-10.6 8509930246) T PROTEIN (test code = 7.7 g/dL 6.3-8.2 6919233021) ALBUMIN (test code = 3.9 g/dL 3.5-5.0 4110806431) ALK PHOS (test code = 202 U/L 34-122 H 0872640552) ALTv (test code = 13 U/L 5-35 1742-6) AST(SGOT) (test code = 27 U/L 13-40 5370556438) eGFR (test code = mL/min/1.73m2 2808017446) CHRISTINE (test code = CHRISTINE) Association of Glomerular Filtration Rate (GFR) and Staging of Kidney Disease* + --+ --+ ------+| GFR (mL/min/1.73 m2) ?| With Kidney Damage ?| ?Without Kidney Damage+ --------+ --------+ +| ?>90 ?| ?Stage one ?| ? Normal ?+ ---+ ---+ -------+| ?60-89 ?| ?Stage two ?| ? Decreased GFR ? + --+ --+ ------+| ?30-59 ?| ?Stage three ?| ? Stage three ? + --+ --+ ------+| ?15-29 ?| ?Stage four ? | ? Stage four ?+ ---+ ---+ -------+| ?<15 (or dialysis) ? ?| ?Stage five ? | ? Stage five ?+ ---+ ---+ -------+ *Each stage assumes the associated GFR level has been in effect for at least three months. ?Stages 1 to 5, with or without kidney disease, indicate chronic kidney disease. Notes: Determination of stages one and two (with eGFR >59mL/min/1.73 m2) requires estimation of kidney damage for at least three months as defined by structural or functional abnormalities of the kidney, manifested by either:Pathological abnormalities or Markers of kidney damage (including abnormalities in the composition of the blood or urine or abnormalities in imaging tests). Lab Interpretation Abnormal (test code = 66193-5) [facility] WITH [id number] 09:01:30 Test Item Value Reference Range Interpretation Comments WBC (test code = See_Comment H [Automated 3790-2) message] The system which generated this result transmit cristhian reference range : 4.30 - 11.10 10*3/?L. The reference range was not used to interpret this result as normal/abnormal . RBC (test code = See_Comment [Automated 239-8) message] The system which generated this result transmit cristhian reference range : 3.93 - 5.25 10*6/?L. The reference range was not used to interpret this result as normal/abnormal . HGB (test code = 13.7 g/dL 11.6-15.0 718-7) HCT (test code = 43.7 % 35.7-45.2 4544-3) MCV (test code = 90.7 fL 80.6-95.5 787-2) MCH (test code = 28.4 pg 25.9-32.8 785-6) MCHC (test code = 31.4 g/dL 31.6-35.1 L 786-4) RDW-SD (test code = 52.1 fL 39.0-49.9 H 99856-3) RDW-CV (test code = 15.7 % 12.0-15.5 H 788-0) PLT (test code = See_Comment [Automated 777-3) message] The system which generated this result transmit cristhian reference range : 166 - 358 10*3/ ?L. The reference range was not u sed to interpret th is result as normal/abnormal . MPV (test code = 9.7 fL 9.5-12.9 32091-5) NRBC/100 WBC (test See_Comment [Automat ed code = [id number]) message] The system which generated this result transmit cristhian reference range : 0.0 - 10.0 /100 WBCs. The reference range was not used to interpret this result as normal/abnormal . NRBC x10^3 (test code <0.01 See_Comment [Auto mated = [id number]) message] The system which generated this result transmit cristhian reference range : 10*3/?L. The reference range was not used to interpret this result as normal/abnormal . GRAN MAT (NEUT) % 88.5 % (test code = 770-8) IMM GRAN % (test code 0.70 % = 7921206198) LYMPH % (test code = 3.1 % 736-9) MONO % (test code = 7.5 % 5905-5) EOS % (test code = 0.0 % 713-8) BASO % (test code = 0.2 % 706-2) GRAN MAT x10^3(ANC) 14.39 10*3/uL 1.88-7.09 H (test code = 6467555873) IMM GRAN x10^3 (test 0.12 10*3/uL 0.00-0.06 H code = 9631829248) LYMPH x10^3 (test code 0.50 10*3/uL 1.32-3.29 L = 731-0) MONO x10^3 (test code 1.22 10*3/uL 0.33-0.92 H = 742-7) EOS x10^3 (test code = <0.03 0.03-0.39 L 711-2) BASO x10^3 (test code 0.04 10*3/uL 0.01-0.07 = 704-7) Lab Interpretation Abnormal (test code = 81990-5) [facility] [id number] 08:58:13 Test Item Value Reference Range Interpretation Comments LACTIC ACID (test code = 1.62 mmol/L 0.50-2.20 3280277409) Lab Interpretation (test code = Normal 01423-2) [facility]
[2022-03-08] MEDS ORDERED: ASPIRIN 81 MG CHEWABLE TABLET ONE (15:46)
[2022-03-08] MEDS ORDERED: MORPHINE 4 MG/ML SYR ONE (15:46)
[2022-03-08] MEDS ORDERED: NITROGLYCERIN 0.4 MG/TAB SL ONE (15:47)
[2022-03-08] MEDS ORDERED: FENTANYL CITR 100 MCG/2 ML ONE (15:54)
[2022-03-08 15:55] LABS: Arterial Blood Carboxyhemoglob 1.5 % (0-1.5); Blood Gas Oxyhemoglobin 95.4 % (94-97); Blood O2 Saturation 98.1 % (92-98.5)
[2022-03-08 16:00] LABS: Hematocrit 43.4 % (36.0-45.0); Lymphocytes % 37.2 % (15.3-44.8); MCV 93.7 fL (80-100); MPV 8.4 fL (7.6-11.3); RBC Red Blood Cell Count 4.63 M/uL (3.86-4.86)
[2022-03-08 16:03] LABS: Protime INR 1.13
--- NOTE | 2022-03-08 16:07 | RAD REPORT ---
EXAM DESCRIPTION: RAD - Chest Single View - 03/08/2022 3:59 pm CLINICAL HISTORY: SOB COMPARISON: Portable 12/14/2020 TECHNIQUE: AP portable chest image was obtained 03/08/2022 3:59 pm . FINDINGS: A large 50% right-sided pneumothorax is present with near complete collapse of the right u pper lobe. No tracheal shift has occurred. No acute lung parenchymal process. Heart size is prominent but not substantially different. Parenchymal stranding in the medial left apex is slightly increased compared to the prior study. No pleural effusions seen. No left-sided pneumothorax. No acute bony abnormality seen. No acute aorti c findings suspected. IMPRESSION: Large right-sided 50% pneumothorax primarily in the right upper lung field. Parenchymal stranding in the medial left apex slightly increased from comparison. Infiltrate is not e xcluded.
[2022-03-08 16:13] LABS: Albumin 3.7 g/dL (3.4-5.0); Bilirubin Total 0.4 mg/dL (0.2-1.0); Magnesium 2.1 mg/dL (1.8-2.4); Potassium 3.6 mmol/L (3.5-5.1); Protein, Total 7.4 g/dL (6.4-8.2)
[2022-03-08 17:27] LABS: Urine Blood Trace-intact (Negative); Urine Glucose Negative (Negative); Urine Protein 2+ (Negative); Urine Specific Gravity >=1.030 (1.005-1.030); Urine pH 5.5 (5.0-7.0)
[2022-03-08 17:58] LABS: Urine Granular Casts 0-5 /LPF (None Seen); Urine Mucus 1+ /HPF (None Seen)
--- NOTE | 2022-03-08 18:04 | RAD REPORT ---
EXAM DESCRIPTION: RAD - Chest Single View - 03/08/2022 5:44 pm CLINICAL HISTORY: POST CHEST TUBE COMPARISON: Portable 03/08/2022 TECHNIQUE: AP portable chest image was obtained 03/08/2022 5:44 pm . FINDINGS: Chest tube is present entering the mid right chest with the tip superimposed on the hilum. There has been no re-expansion and maybe slight further collapse of the right upper lobe. Remainder the chest is stable.
--- NOTE | 2022-03-08 18:05 | RAD REPORT ---
EXAM DESCRIPTION: RAD - Chest Single View - 03/08/2022 5:44 pm CLINICAL HISTORY: chest tube placement COMPARISON: Portable 03/08/2022 TECHNIQUE: AP portable chest image was obtained 03/08/2022 5:44 pm . FINDINGS: Continued chest tube has been placed. Chest tube arches over the superior aspect of the ri ght hemithorax with the tip superimposed near the right hilum. Hilum and mediastinal structures are d istorted by rotation. There is been significant but incomplete re-expansion of the right upper lobe. Small pneumothorax remains in the right apex. Small amount of subcutaneous emphysema is present on the right. Heart and vasculature are normal. No measurable pleural effusion and no pneumothorax. No acute bony abnormality seen. No acute aortic find ings suspected. IMPRESSION: New chest tube has been placed as detailed. Small remnant pneumothorax present in the right apex.
--- NOTE | 2022-03-08 18:22 | ER ---
Nurse's Notes [facility] Name: Elena Bruno Age: 72 yrs Sex: Female : 1950 Arrival Date: 03/08/2022 Time: 15:27 Bed 4 Private MD: Diagnosis: Pneumothorax, sqoehyuyrne-Iqqaz-[id number];ST elevation (STEMI) myocardial infarction involving right coronary artery Presentation: 03/08 15:27 Chief complaint: EMS states: SOB, hx of COPD, O2 sat 84% RA upon arrival, administered aa5 oxygen via non-rebreather mask. Respiratory distress noted. 15:27 Coronavirus screen: shortness of breath. Ebola Screen: Patient denies travel to an aa5 Ebola-affected area in the 21 days before illness onset. Initial Sepsis Screen: Does the patient meet any 2 criteria? RR > 20 per min. HR > 90 bpm. Does the patient have a suspected source of infection? Yes:. Risk Assessment: Do you want to hurt yourself or someone else? Patient reports no desire to harm self or others. Onset of symptoms was March 08, 2022. 15:27 Acuity: FABBY 1 aa5 15:27 Method Of Arrival: EMS: [facility] aa5 Historical: - Allergies: 15:30 No Known Allergies; aa5 - PMHx: 15:30 Chronic obstructive lung disease; aa5 - PSHx: 15:30 Appendectomy; Total abdominal hysterectomy; aa5 - Immunization history:: Adult Immunizations unknown. - Social history:: Smoking status: unknown. Screenin:00 Abuse screen: Denies threats or abuse. Nutritional screening: No deficits noted. ke1 Tuberculosis screening: No symptoms or risk factors identified. Fall Risk No fall in past 12 months (0 pts). No secondary diagnosis (0 pts). IV access (20 points). Ambulatory Aid- None/Bed Rest/Nurse Assist (0 pts). Gait- Normal/Bed Rest/Wheelchair (0 pts) Mental Status- Oriented to own ability (0 pts). Total Cintron Fall Scale indicates No Risk (0-24 pts). Assessment: 15:30 General: Appears distressed, uncomfortable, Behavior is cooperative. mb9 15:30 Pain: Complains of pain in chest Pain began suddenly. Neuro: Level of Consciousness is mb9 awake, alert, obeys commands, Oriented to person, place, time, situation. Cardiovascular: Heart tones S1 S2 present Edema is absent. Rhythm is sinus tachycardia. Respiratory: Reports shortness of breath cough that is non-productive, labored breathing since this morning Airway is patent Respiratory effort is labored, Respiratory pattern is regular, symmetrical, tachypnea Pt unable to speak in full sentences due to severe SOB. Breath sounds are diminished in right upper lobe, right middle lobe, right lower lobe, right posterior upper lobe, right posterior middle lobe and right posterior lower lobe Breath sounds with rales in left upper lobe, left lower lobe, left posterior upper lobe and left posterior lower lobe the patient has severe shortness of breath. GI: Abdomen is flat. : No signs and/or symptoms were reported regarding the genitourinary system. EENT: absence of teeth noted. . Derm: Skin is intact, Skin is dry, Skin is pale, Skin temperature is cool. Musculoskeletal: Range of motion: intact in all extremities. 15:40 Reassessment: Pt on placed Bi-Pap by RT. mb9 15:45 Reassessment: Pt taken off bi-pap, O2 via non-rebreather at this time, setting up for aa5 chest tube insertion at this time. . 16:00 Reassessment: Chest tube insertion ongoing by Dr. Russo. Pt now drowsy after Fentanyl mb9 administration. Respirations are relaxed. 17:00 Reassessment: Pt resting with eyes closed. Pt states SOB improved. Respirations are mb9 relaxed. Rales auscultated bilaterally. Skin is pale and cool to touch. 17:20 Reassessment: Pt placed back on bi-pap per . mb9 18:24 Reassessment: Placed bear hugger on pt. Set at 38 degrees Celsius. mb9 20:59 Reassessment: Patient is alert, oriented x 3, equal unlabored respirations, skin ke1 warm/dry/pink. Patient states feeling better. Patient states symptoms have improved. Vital Signs: 15:27 BP 181 / 130; Pulse 116; Resp 42 S; Temp 96.8(TE); Pulse Ox 84% on R/A; jl7 15:28 Pulse Ox 96% on Non-rebreather mask; aa5 15:40 BP 171 / 123; Pulse 105; Pulse Ox 99% on BiPAP; aa5 15:55 BP 152 / 101; Pulse 88; Resp 24; Pulse Ox 100% on 100% Non-rebreather mask; mb9 16:30 BP 134 / 91; Pulse 84; Resp 14; Pulse Ox 100% on 100% Non-rebreather mask; mb9 17:00 BP 149 / 94; Pulse 85; Resp 14; Pulse Ox 99% on 2 lpm NC; mb9 17:20 BP 121 / 81; Pulse 77; Resp 16; Pulse Ox 98% on BiPAP; mb9 18:26 BP 107 / 71; Pulse 73; Resp 12; Temp 95.3(C); Pulse Ox 100% on BiPAP; mb9 20:56 BP 117 / 83; Pulse 97; Resp 16; Temp 98.7(C); Pulse Ox 10% ; Pain 0/10; ke1 ED Course: 15:27 Patient arrived in ED. eb 15:27 Rosina Russo MD is Attending Physician. eb 15:27 Arm band placed on. aa5 15:28 EKG done, by ED staff, reviewed by Rosina Russo MD. mb9 15:37 EKG done, by ED staff, reviewed by Rosina Russo MD. mb9 15:39 Triage completed. aa5 15:[address] Mata was messaged regarding possible STEMI. eb 15:41 Liv Zhou, RN is Primary Nurse. mb9 15:41 Inserted saline lock: 20 gauge in left antecubital area, using aseptic technique. Blood mb9 collected. 15:42 Lactate Sent. mb9 15:42 CBC with Diff Sent. mb9 15:42 CMP Sent. mb9 15:43 Protime (+inr) Sent. mb9 15:43 Ptt, Activated Sent. mb9 15:43 BNP Sent. mb9 15:43 Magnesium Sent. mb9 15:43 Procalcitonin Sent. mb9 16:00 Assist provider with chest tube insertion with 16 Fr. in right lateral chest wall. Tray mb9 was set up. Attached to pleHeetch-[place]api[place]iare. Chest tube inserted by Rosina Russo MD Placement verified by CXR, return of air, Dressed with Vaseline gauze, silk tape, 4X4s, Patient tolerated well. 16:[address] Mata's answering service called and message left regarding possible eb STEMI/. 16:49 EKG done, by ED staff, reviewed by Rosina Russo MD. mb9 17:15 Álvarez cath inserted, using sterile technique, 16 Fr., by me, balloon inflated, returned mb9 clear yellow urine. Patient tolerated well. 17:31 Blood Culture Adult (2) Sent. mb9 17:31 Urine Microscopic Only Sent. mb9 18:20 Denton Arriaga MD is Hospitalizing Provider. sd2 19:00 Bed in low position. Call light in reach. ke1 19:04 Attending Physician role handed off by Rosina Russo MD kdr 19:04 Kushal Bagley MD is Attending Physician. kdr 19:[address] [facility], spoke with Alvarado. wm 19:22 Report given to CHRIS Osorio. mb9 19:23 Report given to CHRIS Osorio. mb9 19:[address] [facility] c/b and stated the Dr was in an emergency, but as soon as he is out they will be c/b for a Dr. to Dr. 20:05 Primary Nurse role handed off by Liv Zhou, CHRIS wm 20:17 Pt accepted for transfer by Dr. Meir Mckeon per Otilia Paul. wm 20:35 Ashleigh Islas, CHRIS is Primary Nurse. ke1 20:58 Patient transferred, IV remains in place. ke1 Administered Medications: 15:45 Drug: morphine 4 mg Route: IVP; Infused Over: 4 mins; Site: left antecubital; mb9 15:50 Follow up: Response: Pain is decreased mb9 16:00 Drug: fentaNYL (PF) 50 mcg Route: IVP; Site: left antecubital; mb9 16:10 Follow up: Response: Pain is decreased mb9 17:00 Drug: Aspirin Chewable Tablet 324 mg Route: PO; mb9 17:31 Follow up: Response: No adverse reaction mb9 17:18 Not Given (Physician Discretion): Nitroglycerin 0.4 mg Sublingual once; every five aa5 minute if needed x3 Outcome: 18:21 Decision to Hospitalize by Provider. sd2 20:19 ER care complete, transfer ordered by . kdr 20:58 Transferred by ground EMS Note: [facility] 7 ke1 20:58 Condition: good 20:58 Instructed on the need for admit. 20:59 Patient left the ED. ke1 Signatures: Kushal Bagley MD MD kdr Amanda Bajwa RN RN aa5 Michael Wilkins RN RN jl7 Prisca Aldana Wendy wm Ebrottie, Kouassi RN RN ke1 Rosina Russo MD MD sd2 Liv Zhou, RN RN mb9 Corrections: (The following items were deleted from the chart) 17:34 16:49 Álvarez cath inserted, using sterile technique, 16 Fr., by ma, balloon inflated, mb9 returned clear yellow urine. Patient tolerated well. arsh 17:52 17:51 Reassessment: Pt on placed Bi-Pap by RT rash [id number] 18:07 15:27 BP 181 / 130; Pulse 116bpm; Resp 42bpm; Spontaneous; Pulse Ox 84% RA; Temp 97.8F jl7 Temporal; aa5
--- NOTE | 2022-03-08 18:22 | EDPHYS ---
Physician Documentation [facility] Name: Elena Bruno Age: 72 yrs Sex: Female : 1950 Arrival Date: 03/08/2022 Time: 15:27 Bed 4 Private MD: ED Physician Kushal Bagley HPI: 03/08 17:24 This 72 yrs old Female presents to ER via EMS with complaints of Shortness Of Breath. sd2 17:24 72-year-old female presents via EMS with chief complaint of shortness of breath. She sd2 does have a history of COPD on nasal cannula home oxygen. EMS reports they were called for a panic attack as she does have a history of anxiety and she had her oxygen turned up all the way upon their arrival but she was saturating 84%. They report the patient calmed down in route but then upon arrival her blood pressure became significantly elevated and she once again became short of breath with respiratory distress and was placed on nonrebreather due to O2 desaturation in the ER to 84% on room air. She does complain of some left-sided chest pain and reports she has had a cough over the last couple of days. Patient also reports prior history of pneumothorax needing chest tube.. Historical: - Allergies: 15:30 No Known Allergies; aa5 - PMHx: 15:30 Chronic obstructive lung disease; aa5 - PSHx: 15:30 Appendectomy; Total abdominal hysterectomy; aa5 - Immunization history:: Adult Immunizations unknown. - Social history:: Smoking status: unknown. ROS: 17:24 Constitutional: Negative for fever, chills, and weight loss, Eyes: Negative for injury, sd2 pain, redness, and discharge. 17:24 Abdomen/GI: Negative for abdominal pain, nausea, vomiting, diarrhea. MS/Extremity: Negative for injury and deformity, Skin: Negative for injury, rash, and discoloration, Neuro: Negative for headache, numbness and tingling. 17:24 Cardiovascular: Positive for chest pain, Negative for orthopnea, palpitations. 17:24 Respiratory: Positive for cough, dyspnea on exertion, shortness of breath, Negative for 17:24 Respiratory: Positive for Exam: 17:24 Constitutional: This is a well developed, well nourished patient who is awake, alert, sd2 and in respiratory distress Head/Face: Normocephalic, atraumatic. Eyes: EOMI, normal conjunctiva bilaterally Chest/axilla: Normal chest wall appearance and motion. Nontender with no deformity. Cardiovascular: Regular rate and rhythm with a normal S1 and S2. No gallops, murmurs, or rubs. 2+ distal pulses. Respiratory: Lungs have diminished BS bilaterally, unable to auscultate breath sounds to bilateral upper lobes, intercostal and supraclavicular retractions present Abdomen/GI: Soft, non-tender, with normal bowel sounds. No guarding or rebound. No evidence of tenderness throughout. Skin: Warm, dry with normal turgor. Normal color with no rashes, no lesions, and no evidence of cellulitis. MS/ Extremity: Pulses equal, no cyanosis. Neurovascular intact. Full, normal range of motion. Ambulatory without difficulty. Psych: Awake, alert, with orientation to person, place and time. Behavior, mood, and affect are within normal limits. 17:34 ECG was reviewed by the Attending Physician. Sinus tachycardia, rate 105, ST elevation sd2 in leads V3 and V4 changed from prior EKG with no reciprocal changes, +STEMI 17:34 NSR, rate 93, ST elevations in V3 and V4 improved from prior EKG but still meets STEMI criteria 17:34 NSR, rate 92, ST elevations present in V4-V6, no reciprocal changes, discussed all EKGs with Dr. Mata who reports no STEMI at this time. Vital Signs: 15:27 BP 181 / 130; Pulse 116; Resp 42 S; Temp 96.8(TE); Pulse Ox 84% on R/A; jl7 15:28 Pulse Ox 96% on Non-rebreather mask; aa5 15:40 BP 171 / 123; Pulse 105; Pulse Ox 99% on BiPAP; aa5 15:55 BP 152 / 101; Pulse 88; Resp 24; Pulse Ox 100% on 100% Non-rebreather mask; mb9 16:30 BP 134 / 91; Pulse 84; Resp 14; Pulse Ox 100% on 100% Non-rebreather mask; mb9 17:00 BP 149 / 94; Pulse 85; Resp 14; Pulse Ox 99% on 2 lpm NC; mb9 17:20 BP 121 / 81; Pulse 77; Resp 16; Pulse Ox 98% on BiPAP; mb9 18:26 BP 107 / 71; Pulse 73; Resp 12; Temp 95.3(C); Pulse Ox 100% on BiPAP; mb9 20:56 BP 117 / 83; Pulse 97; Resp 16; Temp 98.7(C); Pulse Ox 10% ; Pain 0/10; ke1 Procedures: 16:31 Chest tube insertion: the site was prepped using Betadine, in sterile fashion, Tube sd2 size: a 16 [place] chest tube was inserted, introduced in right lateral chest wall, to pleur-e-vac, dressed with vaseline gauze, foam tape, 4x4s, the patient tolerated the procedure well. MDM: 15:33 Patient medically screened. sd2 17:24 Differential diagnosis: Differential diagnosis includes but is not limited to: ACS, sd2 DVT/PE, pneumothorax, dissection, musculoskeletal, anxiety, anemia, electrolyte abnormality, pneumonia, CHF, COPD among others. Data reviewed: vital signs, nurses notes, EMS record, lab test result(s), EKG, radiologic studies. ED course: STEMI was initially called due to acute changes on the patient's EKG with elevations in leads V3 and V4. The EKG was repeated and did appear improved but was still consistent with STEMI criteria. I was able to get in contact with the dust operator on-call at 4:48 PM and he reviewed the EKG and determined there was no acute KS at that time. Chest tube was placed due to pneumothorax seen on chest x-ray without complication. Pt placed back on BIPAP due to acidosis 2/2 hypercapnia seen on ABG. BP improved and pt stabilized.. 18:19 Counseling: I had a detailed discussion with the patient and/or guardian regarding: the sd2 historical points, exam findings, and any diagnostic results supporting the discharge/admit diagnosis, lab results, radiology results, the need for further work-up and treatment in the hospital. 03/08 15:40 Order name: Blood Culture Adult (2) sd2 03/08 15:40 Order name: CBC with Diff sd2 03/08 15:40 Order name: CMP sd2 03/08 15:40 Order name: Lactate sd2 03/08 15:40 Order name: Protime (+inr) sd2 03/08 15:40 Order name: Ptt, Activated sd2 03/08 15:40 Order name: Urine Microscopic Only sd2 03/08 15:40 Order name: ABG ar2 03/08 15:40 Order name: Procalcitonin ar2 03/08 15:40 Order name: Magnesium ar2 03/08 15:40 Order name: BNP ar2 03/08 16:03 Order name: SARS-COV-2 RT PCR (Document "Date of Onset" if Symptomatic) 03/08 16:03 Order name: Protime (+INR); Complete Time: 16:48 EDMS 03/08 16:03 Order name: PTT, Activated Partial Thromb; Complete Time: 16:48 EDMS 03/08 15:28 Order name: CXR XRAY eb 03/08 16:02 Order name: XRAY Chest (1 view) eb 03/08 16:06 Order name: ABG Arterial Blood Gas; Complete Time: 16:48 EDMS 03/08 16:08 Order name: RAD; Complete Time: 16:48 EDMS 03/08 16:13 Order name: Comprehensive Metabolic Panel; Complete Time: 16:48 EDMS 03/08 16:13 Order name: NT PRO-BNP; Complete Time: 16:48 EDMS 03/08 16:13 Order name: Magnesium; Complete Time: 16:48 EDMS 03/08 16:13 Order name: CBC with Automated Diff; Complete Time: 16:48 EDMS 03/08 16:40 Order name: Lactate; Complete Time: 16:48 EDMS 03/08 16:52 Order name: SARS-COV-2 RT PCR; Complete Time: 17:19 EDMS 03/08 17:08 Order name: Procalcitonin; Complete Time: 17:19 EDMS 03/08 17:27 Order name: Urine Dipstick-Ancillary; Complete Time: 17:47 EDMS 03/08 17:59 Order name: Urine Microscopic Only; Complete Time: 17:59 EDMS 03/08 17:59 Order name: Troponin High Sensitivity la1 03/08 19:09 Order name: Troponin High Sensitivity; Complete Time: 19:26 EDMS 03/08 19:35 Order name: Lactate Sepsis 2 HR Follow-up; Complete Time: 19:37 EDMS 03/08 15:40 Order name: Cardiac monitoring; Complete Time: 15:42 sd2 03/08 15:40 Order name: EKG - Nurse/Tech; Complete Time: 15:42 sd2 03/08 15:40 Order name: IV Saline Lock - Large Bore; Complete Time: 15:42 sd2 03/08 15:40 Order name: Labs collected and sent; Complete Time: 15:42 sd2 03/08 15:40 Order name: O2 Per Protocol; Complete Time: 15:42 sd2 03/08 15:40 Order name: O2 Sat Monitoring; Complete Time: 15:42 sd2 03/08 15:40 Order name: Urine Dipstick-Ancillary (obtain specimen); Complete Time: 17:32 sd2 03/08 16:20 Order name: CXR XRAY eb 03/08 17:31 Order name: Álvarez; Complete Time: 17:31 mb9 03/08 17:58 Order name: CT Chest Wo Con sd2 03/08 18:04 Order name: RAD; Complete Time: 18:29 EDMS 03/08 18:07 Order name: RAD; Complete Time: 18:29 EDMS 03/08 19:42 Order name: CT; Complete Time: 19:46 EDMS Administered Medications: 15:45 Drug: morphine 4 mg Route: IVP; Infused Over: 4 mins; Site: left antecubital; mb9 15:50 Follow up: Response: Pain is decreased mb9 16:00 Drug: fentaNYL (PF) 50 mcg Route: IVP; Site: left antecubital; mb9 16:10 Follow up: Response: Pain is decreased mb9 17:00 Drug: Aspirin Chewable Tablet 324 mg Route: PO; mb9 17:31 Follow up: Response: No adverse reaction mb9 17:18 Not Given (Physician Discretion): Nitroglycerin 0.4 mg Sublingual once; every five aa5 minute if needed x3 Disposition Summary: 03/08/22 20:19 Transfer Ordered Transfer Location: [facility] kdr Reason: Higher level of care kdr Condition: Serious(03/08/22 20:19) kdr Problem: new(03/08/22 20:19) kdr Symptoms: have improved(03/08/22 20:19) kdr Accepting Physician: Cayetano(03/08/22 20:59) ke1 Diagnosis - Pneumothorax, unspecified - Right-sided(03/08/22 20:19) kdr - ST elevation (STEMI) myocardial infarction involving right coronary artery kdr Forms: - Medication Reconciliation Form kdr - SBAR form kdr Signatures: Dispatcher [employer] EDMS Kushal Bagley MD MD kdr Amanda Bajwa RN RN aa5 Blake Witt, PRACTICAL NURSE-C PRACTICAL NURSE-Cla1 Ashleigh Islas RN RN ke1 Rosina Russo MD MD sd2 Liv Zhou, RN RN mb9 Corrections: (The following items were deleted from the chart) 16:37 15:40 Accucheck ordered. sd2 aa5 20:18 18:21 Inpatient Admission sd2 kdr 20:18 18:21 Denton Arriaga sd2 kdr 20:18 18:21 Intensive Care Unit sd2 kdr 20:18 18:21 Stable sd2 kdr 20:18 18:21 new sd2 kdr 20:18 18:21 have improved sd2 kdr 20:18 18:21 Standard sd2 kdr 20:18 18:21 sd2 kdr 20:18 18:21 Pneumothorax, unspecified sd2 kdr 20:18 18:21 Acute and chronic respiratory failure with hypercapnia sd2 kdr 20:59 20:19 Nadiar kdr ke1
--- NOTE | 2022-03-08 19:41 | RAD REPORT ---
EXAM DESCRIPTION: CT - Thorax Con - 03/08/2022 6:54 pm CLINICAL HISTORY: pneumothorax, SOB COMPARISON: Thorax Wo Con dated 12/14/2020 TECHNIQUE: Axial 5 mm thick images of the chest were obtained without IV contrast. All CT scans are performed using dose optimization technique as appropriate and may include automated exposure control or mA/KV adjustment according to patient size. FINDINGS: Chest tube enters the right sixth inner costal space coursing anteriorly and superiorly to the right apex. Chest tube than courses inferiorly and medially. The tip resides no prominent recess of the left lower lobe positioned in the subcarinal portion of the mediastinum. This is a similar an atomy configuration to the December 2020 CT study. Moderate amount of subcutaneous emphysema is present. Partial atelectasis is still present in the right upper lobe and right middle lobe. Remnant pneumotho rax is approximately 20% with a pneumothorax primarily anteriorly positioned and a small component at the apex. No pleural effusion. No left-sided pneumothorax. No acute left lung parenchymal finding. L eft lung parenchymal scarring changes are present. Subpleural bulla is seen in the posterior mid right lower lobe. Prior imaging showed the patient to h ave subpleural bulla and bleb in the medial right upper lobe. No abnormal mediastinal or hilar masses or lymphadenopathy seen. No gross aortic or pulmonary artery finding suspected. No cardiomegaly or pericardial effusion. No chest wall mass or abnormal axillary lymphadenopathy. IMPRESSION: Right chest tube is in place as detailed. Approximately 20% remnant pneumothorax is pres ent anteriorly and in the right apex. Remnant medial right upper lobe and right middle lobe atelectasis present. Subpleural bulla is present in the posterior mid right lower lobe and there is evidence for sub pleur al bulla and bleb formation in the medial right upper lobe. Moderate amount of subcutaneous emphysema.
[2022-03-08 21:35] VITALS: BP 117/83; TEMP 98.7; O2SAT 10
--- NOTE | 2022-03-10 14:14 | EKG ---
Test Date: 2022-03-08 Test Time: 16:49:13 Pump And Blower Operator: SUMMER MEASUREMENT RESULTS: Intervals: Rate: 92 GA: 156 QRSD: 94 QT: 400 QTc: 494 [place]: P: 71 GA: 156 QRS: 83 T: 29 INTERPRETIVE STATEMENTS: Normal sinus rhythm Anteroseptal infarct, age undetermined Lateral injury pattern ACUTE MA / STEMI Abnormal ECG Compared to ECG 03/08/2022 15:37:07 Right-axis deviation no longer present Myocardial infarct finding still present Electronically Signed On 03-10-22 14:13:16 CDT by Reed Herrera
--- NOTE | 2022-03-10 14:15 | EKG ---
Test Date: 2022-03-08 Test Time: 15:28:25 Finish Mender: TARIQ MEASUREMENT RESULTS: Intervals: Rate: 105 MD: 150 QRSD: 94 QT: 342 QTc: 452 [place]: P: 78 MD: 150 QRS: 92 T: 58 INTERPRETIVE STATEMENTS: Sinus tachycardia Rightward axis Anterior infarct, age undetermined Abnormal ECG Compared to ECG 12/14/2020 12:44:48 Right-axis deviation now present Left ventricular hypertrophy no longer present Myocardial infarct finding still present Electronically Signed On 03-10-22 14:13:27 CDT by Reed Herrera
--- NOTE | 2022-03-10 14:15 | EKG ---
Test Date: 2022-03-08 Test Time: 15:37:07 Call Center Specialist: TARIQ MEASUREMENT RESULTS: Intervals: Rate: 93 MT: 148 QRSD: 100 QT: 362 QTc: 450 [place]: P: 78 MT: 148 QRS: 94 T: 66 INTERPRETIVE STATEMENTS: Normal sinus rhythm Rightward axis Anterior infarct, possibly acute ACUTE ME / STEMI Abnormal ECG Compared to ECG 12/14/2020 12:44:48 Right-axis deviation now present Sinus tachycardia no longer present Left ventricular hypertrophy no longer present Myocardial infarct finding still present Electronically Signed On 03-10-22 14:13:25 CDT by Reed Herrera
== END 2022-03-08 20:59 | disposition short-term general hospital (02) ==
LOC: ER 15:25
DX: I21.3 ST elevation (STEMI) myocardial infarction of unspecified site (principal); J93.9 Pneumothorax, unspecified; Z20.822 Contact with and (suspected) exposure to COVID-19
CPT/HCPCS: 93005 ×3; 87040 ×2; 85025; 36415; 83735; 85610; 83605 ×2; 85730; 84484; 80053; 84145; 83880; 71250; 71045 ×3; 82805; 51702; 96375; 96374; 99291; 99292; U0003; J3010; 81003; 81015

== ENCOUNTER 2022-08-10 02:41 | Inpatient (IN) | payer OTHER ==
--- OUTSIDE RECORDS SUMMARY | 2022-08-10 02:49 | XMS REPORT | Continuity of Care Document ---
:1950 Author Organization [facility] t Address [address] [facility]. [address] [place] [address] Care Team Providers Name Role Phone No, Pcp [facility] Primary Care Physician Unavailable CHAO CARDONA Attending Clinician Unavailable QUENTIN PALAFOX Attending Clinician Unavailable MARTHA CONWAY Attending Clinician Unavailable Quentin Palafox MD Attending Clinician Martha Conway MD Attending Clinician Mary Kay Felix MD Attending Clinician Lele Paula RN Attending Clinician Unavailable Amelia Ferreira Attending Clinician Kashif Strong MD Attending Clinician Wendi Lynch MD Attending Clinician [phone] Amelia ZIEGLER Attending Clinician Unavailable Doctor Unassigned, [place] Attending Clinician Unavailable Vidhya Fuentes MD Attending Clinician Clarence Bach MD Attending Clinician Amanda Daniels MD Attending Clinician VIDHYA FUENTES Attending Clinician Unavailable CHAO CARDONA Admitting Clinician Unavailable MARY KAY FELIX Admitting Clinician Unavailable OLE CUEVA Admitting Clinician Unavailable Ligia RAMIREZ, Kashif Admitting Clinician Jeremiah RAMIREZ, Amanda Admitting Clinician Payers Payer Name Policy Type Policy Number Effective Date Expiration Date Juliann cuevas MEDICARE A B [id number] 2014 00:00:00 [facility]ID [facility] [id number] 2022 00:00:00 Problems Condition Condition Condition Status Onset Resolution Last Treating Co mments Source Name Details Category Date Date Treatment Clinician Date Hypoxia Hypoxia Disease Active 2021-[address] [facility]: Medical [address] [place] [address] Acute Acute Disease Active [facility] hypoxemic hypoxemic 12-14 [facility] respirator respirator 00:00: Me dical y failure y failure 00 Cent er Pneumothor Pneumothor Disease Active C [facility] ax ax 12-14 [facility] 00:00: Medical 00 Leslie Acute Acute Disease Active Univers hypercapni hypercapni 11-27 it y of c c 00:00: [place] respirator respirator 00 Me dical y failure y failure Bran ch E46 E46 Disease Active Univers Unspecifie Unspecifie 607 it y of d severe d severe 00:00: [place] protein-ca protein-ca 00 Me dical [facility] malnutriti malnutriti on on Cellulitis Cellulitis Disease Active U nivers of left of left 6-05 ity of lower lower 00:00: [place] extremity extremity 00 [facility] Allergies, Adverse Reactions, Alerts Allergy Allergy Status Severity Reaction(s) Onset Inactive Treating Comm ents Source Name Type Date Date Clinician Levoflox Propensi Active Hallucinatio Univers acin ty to ns 11-27 ity of adverse 00:00: [place] reaction [address] [place] [address] LEVOFLOX DRUG Active Hallucinates Un jacinda ACIN INGREDI 11-27 ity of 00:00: [address] NO KNOWN Drug Active Univers ALLERGIE Class ity of S [facility] [place] NO KNOWN Allergy Active [facility] Social History Social Habit Start Date Stop Date Quantity Comments Source Exposure to Not sure [facility] SARS-CoV-2 (event) [facility] [place] Cigarettes smoked 2020-11-27 2020-11-27 Univers ity of current (pack per 00:00:00 00:00:00 [place] M edical ) - Reported Branch Cigarette 2020-11-27 2020-11-27 University of pack-years 00:00:00 00:00:00 [facility] [place] Tobacco use and 2020-11-27 2020-11-27 Never used Universit y of exposure 00:00:00 00:00:00 [facility] [place] Alcohol intake 2020-11-27 2020-11-27 Ex-drinker [facility] 00:00:00 00:00:00 (finding) [facility] [place] Sex Assigned At [address] [facility] 00:00:00 00:00:00 [facility] Smoking Status Start Date Stop Date Source Current every day smoker 2020-11-27 00:00:00 Uni versity [facility] Medications Ordered Filled Start Stop Current Ordering Indication Dosage Frequency Signature Comments Components Source Medication Medication Date Date Medication? Clinician (SIG) Name Name aspirin 81 2021-06- No 81mg QD Take [address] [facility] [facility] MG chewable 0-23 10-23 tablet (81 L ukes tablet 00:00: 23:59 mg total) Medic al 00 :00 by mouth Center daily. levothyroxi 2021-06 No 75ug Take [address] [facility] ne 0-23 10-23 tablet ([facility] (SYNTHROID, 00:00: 23:59 mcg total) Medical LEVOTHROID) 00 :00 by mouth Cent er 75 MCG Every tablet morning on an empty stomach. lisinopriL 2021-06 No 10mg QD Take [address] (PRINIVIL,Z 0-23 11-22 tablet (10 L ukes ESTRIL) 10 00:00: 23:59 mg total) M edical MG tablet 00 :00 by mouth Center daily for 30 days. metoprolol 2021-06 No 50mg QD Take [address] succinate 0-23 11-22 tablet (50 [place] es (TOPROL-XL) 00:00: 23:59 mg total) Medical 50 MG 24 hr 00 :00 by mouth Cent er tablet daily for 30 days. pantoprazol 2021-06 No 40mg QD Take [address] [facility] e 0- tablet (40 [facility] (PROTONIX) 00:00: 23:59 mg total) M edical 40 MG 00 :00 by mouth Center tablet daily for 30 days. predniSONE 2021-06 No 20mg QD Take [address] [facility] (DELTASONE) - tablet (20 L ukes 20 MG 00:00: 23:59 mg total) Medica l tablet 00 :00 by mouth Center daily for 10 days. atorvastati 2021-06 No 80mg QD Take [address] [facility] n (LIPITOR) 0- tablet (80 L ukes 80 MG 00:00: 23:59 mg total) Medica l tablet 00 :00 by mouth Center nightly for 30 days. budesonide 2021-06 No .25mg Q.5D Take [address] (PULMICORT) 04-28 (0.25 mg [place] 0.25 mg/2 00:00: 23:59 total) by Pr dical mL 00 :00 nebulizati Center nebulizer on 2 (two) solution times daily for 30 days. ipratropium 2021-06 3mL Take [address] -albuteroL 04-28 by [place] (DUO-NEB) 00:00: 23:59 nebulizati M edical 0.5 mg-3 00 :00 on every 6 Cente r mg(2.5 mg (six) base)/3 mL hours for nebulizer 30 days. solution levothyroxi 2021- No 75ug Take [address] [facility] [address] ne 7-15 07-15 tablet (75 [facility] (SYNTHROID, 00:00: 23:59 mcg total) Medical LEVOTHROID) 00 :00 by mouth Cent er 75 MCG Every tablet morning on an empty stomach. levothyroxi 2021- No 75ug Take [address] [facility] ne 7-15 07-15 tablet (75 [facility] (SYNTHROID, 00:00: 23:59 mcg total) Medical LEVOTHROID) 00 :00 by mouth Cent er 75 MCG Every tablet morning on an empty stomach. budesonide 2021- No .5mg Q.5D Take [address] (PULMICORT) 7-14 07-14 (0.5 mg Luke s 0.5 mg/2 mL 00:00: 23:59 total) by Medical nebulizer 00 :00 nebulizati Cent er solution on 2 (two) times daily. budesonide 2021- No .5mg Q.5D Take [address] (PULMICORT) 12-19 (0.5 mg Luke s 0.5 mg/2 mL 00:00: 23:59 total) by Medical nebulizer 00 :[address] nebuliz[address] Cent er solution on 2 (two) times daily. ipratropium 2021- No 3mL Take [address] -albuteroL 12-19 by [employer] (Classroom IQO-Mandic) 00:00: 23:59 nebulizati M edical 0.5 mg-3 00 :00 on every 4 Cente r mg(2.5 mg (four) base)/3 mL hours for nebulizer 360 days. solution ipratropium 2021- No 3mL Take [address] -albuteroL 12-19 by [place] (Classroom IQO-Mandic) 00:00: 23:59 nebulizati M edical 0.5 mg-3 00 :00 on every 4 Cente r mg(2.5 mg (four) base)/3 mL hours for nebulizer 360 days. solution levothyroxi Yes 75ug Take 75 Uni vers ne 75 mcg 6-30 mcg by ity of tablet 01:00: mouth [place] 27 every Medical morning. Branch levothyroxi 0 Yes 75ug Take 75 Uni vers ne 75 mcg 6-30 mcg by ity of tablet 01:00: mouth [place] 27 every Medical morning. Branch vitamin 2020-0 Yes [id number] 1000ug Take 1 U nivers B-12 1,000 6-30 tablet by ity of mcg tablet 00:00: mouth [place] 00 daily. Medical Branch vitamin 2020-0 Yes [id number] 1000ug Take 1 U nivers B-12 1,000 6-30 tablet by ity of mcg tablet 00:00: mouth [place] 00 daily. Medical Branch vitamin 2020-0 Yes 1000ug 1,000 mcg, Un jacinda B-12 6-29 Oral, ity of (CYANOCOBAL 14:00: DAILY, [place]) 00 First dose Medical tablet on Thu Branch 1,000 mcg 12/04/20 at 0900, Until Discontinu ed, Routine albuterol Yes [id number] 2{puff} Inhale 2 Univers 90 6-29 Puffs ity of mcg/actuati 00:00: every 6 Juni as on inhaler 00 (six) Medical hours as Branch needed for Wheezing or Shortness of Breath. albuterol Yes [id number] 2{puff} Inhale 2 Univers 90 6-29 Puffs ity of mcg/actuati 00:00: every 6 Juni as on inhaler 00 (six) Medical hours as Branch needed for Wheezing or Shortness of Breath. KCL 2020- No 40meq 40 mEq, Univers (KLOR-CON 12-01- Oral, ity of M20) tablet 14:15: 13:20 ONCE, 1 [place] 40 mEq 00 :00 dose, [facility] Medical 12/01/20 at Branch 0915, Routine lactated 2020- No 500mL at 999 Unive rs ringers IV 11-29 06-24 mL/hr, 500 it y of infusion 01:15: 02:00 mL, [place] 500 mL 00 :00 Intravenou Medical s, ONCE, 1 Branch dose, 11/28/20 at 2015, Routine furosemide Yes 20mg 20 mg, Unive rs (LASIX) 11-28 Oral, ity of tablet 20 14:00: DAILY, [place] mg 00 First dose Medical on Thu Branch 11/28/20 at 0900, Until Discontinu ed, Routine pantoprazol Yes 40mg 40 mg, Univ ers e - Oral, ity of (PROTONIX) 14:00: DAILY, [place] EC tablet 00 First dose Medi santo 40 mg on Thu Branch 11/28/20 at 0900, Until Discontinu ed, Routine
Indicatio n for use: None of the above enoxaparin Yes 40mg 40 mg, Unive rs (LOVENOX) - Subcutaneo ity of injection 14:00: us, DAILY, [place] 40 mg 00 First dose Medical on Thu Branch 11/28/20 at 0900, Until Discontinu ed, Routine predniSONE No 40mg 40 mg, [place] [facility] ers (DELTASONE) 11-28 Oral, ity of tablet [...] ed, Routine albuterol Yes 2.5mg 2.5 mg, [place] [facility] ers (PROVENTIL) 11-28 Inhalation it y of 2.5 mg /3 01:00: , Q4H, [place] mL (0.083 00 First dose Medi santo %) on [facility] nebulizer 11/27/20 at solution 2000, 2.5 mg Until Discontinu ed, Routine ceFEPIme No 2000mg 2,000 mg, U nivers (MAXIPIME) 11-28 IV ity of 2,000 mg in 00:15: 14:42 Piggyback, [place] NaCl 0.9% 00 :22 Q8H ABX, Medica l (NS) 100 mL First dose Br anch MINI-BAG on 11/27/20 at 1915, Until Discontinu ed, 100 mL
R corina for Anti-Infec tive: Empiric Therapy for Suspected Infection< br>Empiric Therapy Site: Respirator y
Durat ion of therapy: 72 hours doxycycline No 100mg 100 mg, IV Univers (VIBRAMYCIN 11-27 Piggyback, i ty of ) 100 mg in 23:15: 23:48 Q12H ABX, [place] NaCl 0.9% 00 :53 First dose Medi santo (NS) 100 mL on [facility] MINI-BAG 11/27/20 at 1815, Until Discontinu ed, [...] swallow or has mental status changes. cefTRIAXone 2020- No 1000mg 1,000 mg, Univers (ROCEPHIN) 11-27 IV ity of 1,000 mg in 18:15: 18:16 Piggyback, [place] NaCl 0.9% 00 :00 ONCE, 1 Medical (NS) 50 mL dose, Tue Bran ch MINI-BAG 11/27/20 at 1315, 50 mL
Reas on for Anti-Infec tive: Documented Infection< br>Documen cristhian Infection Site: Respirator y
Durat ion of Therapy: 10 days magnesium 2020-2020- No 2g 2 g, IV Univ ers sulfate in 11-27 Piggyback, it y of water 2 16:45: 18:00 ONCE, 1 [place] gram/50 mL 00 :00 dose, Tue Medi santo (4 %) 11/27/20 at [place] infusion 2 1145, g Routine methylpredn No 125mg 125 mg, IV Univers isolone sod 11-27 Piggyback, i ty of succ 16:45: 15:47 ONCE, 1 [place] (SOLU-MEDRO 00 :00 dose, Tue Med ical L) 11/27/20 at [place] injection 1145, STAT 125 mg ipratropium 2020- No 3mL 3 mL, [place] [facility] ers -albuteroL 11-27 Inhalation it y of (DUONEB) 16:45: 15:36 , ONCE, 1 Juni as 0.5 mg-3 00 :00 dose, Tue Medica l mg(2.5 mg 11/27/20 at [facility])/3 mL 1145, nebulizer Routine solution 3 mL cefdinir Yes 600mg 600 mg, Unive rs (OMNICEF) 609 Oral, ity of capsule 600 14:00: DAILY, [place] mg 00 First dose Medical (after [place] last modificati on) on Thu11/14/20 at 0900, Until Discontinu ed, CEM
Re ason for Anti-Infec tive: Empiric Therapy for Suspected Infection< br>Empiric Therapy Site: Skin / Soft tissue
Duration of therapy: 72 hours levothyroxi Yes 75ug Take 75 Uni vers ne 75 mcg 6-08 mcg by ity of tablet 21:50: mouth [place] 33 every Medical morning. [place] levothyroxi Yes 75ug Take 75 Uni vers ne 75 mcg 6-08 mcg by ity of tablet 21:50: mouth [place] 33 every Medical morning. [place] levothyroxi Yes 75ug Take 75 Uni vers ne 75 mcg 6-08 mcg by ity of tablet 21:50: mouth [place] 33 every Medical morning. [place] lactobacill Yes .5mg 0.5 mg, Uni vers us 6-08 Oral, BID, ity of acidophilus 16:00: First dose [place] tablet 0.5 00 on [facility] mg 11/13/20 at Branch 1100, Until Discontinu ed, Routine furosemide 2020-0 Yes 20mg 20 mg, Unive rs (LASIX) 6-08 Slow IV ity of injection 15:45: Push, [place] 20 mg 00 DAILY, Medical First dose Branch on Thu11/13/20 at 1045, Until Discontinu ed, Routine furosemide 2020-0 Yes [id number] 20mg Take 1 Univers 20 mg 6-08 tablet by ity of tablet 00:00: mouth [place] 00 daily. Medical Branch acidophilus 2020-0 Yes [id number] 1g Take 1 Univers 100 million 6-08 tablet by ity of cell tablet 00:00: mouth 2 Jun[place] as 00 (two) Medical times Branch daily. Bismuth 2020-0 Yes [id number] Apply to [facility]-Pet 6-08 lower ity of [facility], 00:00: extremity [place] (XEROFORM 00 wounds Medical PETROLATUM with Branch DRESSING) 4 Kerlix X 4 " Bndg wrap and change daily furosemide 2020-0 Yes [id number] 20mg Take 1 Univers 20 mg 6-08 tablet by ity of tablet 00:00: mouth [place] 00 daily. Medical Branch acidophilus 2020-0 Yes [id number] 1g Take 1 Univers 100 million 6-08 tablet by ity of cell tablet 00:00: mouth 2 [place] 00 (two) Medical times Branch daily. Bismuth 2020-0 Yes [id number] Apply to [facility]-Pet 6-08 lower ity of [facility],[place] 00:00: extremity [place] (XEROFORM 00 wounds Medical PETROLATUM with Branch DRESSING) 4 Kerlix X 4 " Bndg wrap and change daily furosemide 2020-0 Yes [id number] 20mg Take 1 Univers 20 mg 6-08 tablet by ity of tablet 00:00: mouth [place] 00 daily. Medical Branch acidophilus 2020-0 Yes [id number] 1g Take 1 Univers 100 million 6-08 tablet by ity of cell tablet 00:00: mouth 2 [place] 00 (two) Medical times Branch daily. Bismuth 2020-0 Yes [id number] Apply to [facility]-Pet 6-08 lower ity of [facility],[place] 00:00: extremity [place] (XEROFORM 00 wounds Medical PETROLATUM with Branch DRESSING) 4 Kerlix X 4 " Bndg wrap and change daily furosemide 0 Yes [id number] 20mg Take 1 Univers 20 mg 6-08 tablet by ity of tablet 00:00: mouth [place] 00 daily. Medical Branch acidophilus 2020-0 Yes [id number] 1g Take 1 Univers 100 million 6-08 tablet by ity of cell tablet 00:00: mouth 2 Jun[place] as 00 (two) Medical times Branch daily. Bismuth 2020-0 Yes [id number] Apply to [facility]-Pet 6-08 lower ity of [facility], 00:00: extremity [place] (XEROFORM 00 wounds Medical PETROLATUM with Branch DRESSING) 4 Kerlix X 4 " Bndg wrap and change daily furosemide Yes [id number] 20mg Take 1 Univers 20 mg 6-08 tablet by ity of tablet 00:00: mouth [place] 00 daily. Medical Branch acidophilus Yes [id number] 1g Take 1 Univers 100 million 6-08 tablet by ity of cell tablet 00:00: mouth 2 Jun[place] as 00 (two) Medical times Branch daily. Bismuth Yes [id number] Apply to [facility]-Pet 6-08 lower ity of [facility], 00:00: extremity [place] (XEROFORM 00 wounds Medical PETROLATUM with Branch DRESSING) 4 Kerlix X 4 " Bndg wrap and change daily levoFLOXaci 2020-0 2020- No [id number] 500mg Take 20 mL Univers n 250 mg/10 11-13 by mouth ity of mL solution 00:00: 04:59 every 24 [place] 00 :00 (twenty-fo Medical ur) hours Branch for 7 days. levoFLOXaci 2020-0 2020- No [id number] 500mg Take 20 mL Univers n 250 [...] Tissue
Duration of Therapy: 7 days mupirocin No Univers (BACTROBAN 11-11 ity of OINT) 2 % 16:00: 23:05 [place] skin 00 :21 Medical ointment Branch ceFEPIme 2020- No 1000mg 1,000 mg, U nivers (MAXIPIME) 11-1108 IV ity of 1,000 mg in 02:00: 15:50 Piggyback, [place] NaCl 0.9% 00 :11 Q12H ABX, Medic al (NS) 50 mL First dose Bra nch MINI-BAG on 11/10/20 at 2100, Until Discontinu [...] of Therapy: 7 days iopamidol 2020- No [id number] 100mL 100 mL, Univers (ISOVUE 11-10 Intravenou ity o f 370-500 mL) 19:15: 17:45 s, ONCE, 1 [place] injection 00 :00 dose, Sat Medic al 100 mL 11/10/20 at Branch 1415, Routine amLODIPine Yes 5mg 5 mg, Univer s (NORVASC) 11-10 Oral, ity of tablet 5 mg 14:00: DAILY, [place] 00 First dose Medical on [facility] Branch 11/10/20 at 0900, Until Discontinu ed, Routine enoxaparin Yes 40mg 40 mg, Unive rs (LOVENOX) 11-10 Subcutaneo ity of injection 14:00: us, DAILY, [place] 40 mg 00 First dose Medical on [facility] Branch 11/10/20 at 0900, Until Discontinu ed, Routine ipratropium Yes 3mL 3 mL, Unive rs -albuteroL 11-10 Inhalation ity of (DUONEB) 13:00: , QID, [place] 0.5 mg-3 00 First dose Medic al mg(2.5 mg on [facility] Branch base)/3 mL 11/10/20 at nebulizer 0800, solution 3 Until mL Discontinu ed, Routine levoFLOXaci 2020- No 500mg 500 mg, IV Univers n in D5W 11-10 Piggyback, ity of (LEVAQUIN) 11:45: 15:48 Administer [place] 500 mg/100 00 :36 over 60 Medica l mL Minutes, Branch [place] Q24H ABX, 500 mg First dose on [facility] 11/10/20 at 0645, Until Discontinu ed, CEM
Re ason for Anti-Infec tive: Documented Infection< br>Documen cristhian Infection Site: Respirator y
Durat ion of Therapy: 7 days vancomycin 2020- No 15mg/kg 500 mg U [place] (VANCOCIN) 11-10 (rounded ity of 500 mg in 11:30: 12:19 from 652.5 [place] NaCl 0.9% 00 :00 mg = 15 Medical (NS) 500 mL mg/kg Branch piggyback ?43.5 kg), IV Piggyback, Q12H ABX, First dose on 11/10/20 at 0630, Until Discontinu ed, 500 [...] at 0600, Until Discontinu ed, Routine piperacilli No 3.375g 3.375 g, Univers n-tazobacta 11-10 [...] 11-10 Oral, ity of mg 10:25: 14:[address] [place] [address] 14 :54 Starting Medical 11/10/20 Branch at [...] 11-10 IV Push, ity of (PF)) 10:05: [place] injection 4 13 Starting Medi santo mg 11/10/20 Branch at 0505, Until Discontinu ed, Routine, Nausea and Vomiting (N/V) acetaminoph Yes 650mg 650 mg, Un jacinda en - Oral, ity of (TYLENOL) 10:04: Q6HPRN, [place] tablet 650 55 Starting Medic al mg 11/10/20 Branch at 0504, Until Discontinu ed, Routine, Pain (scale 1-3), Temp > 38.5 C acetaminoph No 325mg 325 mg, U nivers en 6- 06-05 Oral, ity of (TYLENOL) 10:00: 09:02 ONCE, [...] cm WEIGHT 2020-12-15 04:00:00 42.8 kg WEIGHT 2022-03-29 06:00:00 49.714 kg HEIGHT 2022-03-27 22:32:00 165.1 cm WEIGHT 2022-03-27 22:32:00 45.813 kg WEIGHT 2022-03-09 05:33:00 48.9 kg WEIGHT 2022-03-29 06:00:00 49.714 kg HEIGHT 2022-03-27 22:32:00 165.1 cm WEIGHT 2022-03-27 22:32:00 45.813 kg WEIGHT 2022-03-09 05:33:00 48.9 kg WEIGHT 2022-03-29 06:00:00 49.714 kg HEIGHT 2022-03-27 22:32:00 165.1 cm WEIGHT 2022-03-27 22:32:00 45.813 kg WEIGHT 2022-03-09 05:33:00 48.9 kg WEIGHT 2020-12-19 05:06:00 45.224 kg WEIGHT 2020-12-18 05:26:00 44.725 kg WEIGHT 2020-12-17 04:30:00 43.591 kg WEIGHT 2020-12-16 04:09:00 44.09 kg HEIGHT 2020-12-15 04:00:00 167.6 cm WEIGHT 2020-12-15 04:00:00 42.8 kg Systolic blood 2020-12-04 20:26:00 114 mm[Hg] Univer sity of pressure [place] [facility] Diastolic blood 2020-12-04 20:26:00 84 mm[Hg] Unive rsity of pressure [place] [facility] Heart rate 2020-12-04 20:26:00 97 /min Universi ty of [place] [facility] Body temperature 2020-12-04 20:26:00 37.33 Charlene Univ ersity of [place] [facility] Respiratory rate 2020-12-04 20:26:00 20 /min Univ ersity of [place] [facility] Oxygen saturation in 2020-12-04 20:26:00 96 /min University of Arterial blood by [place] [employer] santo Pulse oximetry Branch Body height 2020-11-27 22:06:00 172.7 cm Universi ty of [place] [facility] Body weight 2020-11-27 22:06:00 44 kg Universi ty of [place] [facility] BMI 2020-11-27 22:06:00 14.75 kg/m2 Universi ty [facility] [place] [facility] Systolic blood 2020-12-04 20:26:00 114 mm[Hg] Univer sity of pressure [place] [facility] Diastolic blood 2020-12-04 20:26:00 84 mm[Hg] Unive rsity of pressure [place] [facility] Heart rate 2020-12-04 20:26:00 97 /min Universi ty of [place] [facility] Body temperature 2020-12-04 20:26:00 37.33 Charlene Univ ersity of [place] [facility] Respiratory rate 2020-12-04 20:26:00 20 /min Univ ersity of [place] [facility] Oxygen saturation in 2020-12-04 20:26:00 96 /min University of Arterial blood by [place] RECESS. Pulse oximetry Branch Body height 2020-11-27 22:06:00 172.7 cm Universi ty of [place] [facility] Body weight 2020-11-27 22:06:00 44 kg Universi ty of [place] [facility] BMI 2020-11-27 22:06:00 14.75 kg/m2 Universi ty [facility] [place] [facility] Body temperature 2020-11-13 16:20:00 36.44 Charlene Univ ersity of [place] [facility] Respiratory rate 2020-11-13 16:20:00 21 /min Univ ersity of [place] [facility] Oxygen saturation in 2020-11-13 15:59:00 96 /min University of Arterial blood by [facility] Pulse oximetry Branch Systolic blood 2020-11-13 13:00:00 147 mm[Hg] Univer sity of pressure [place] [facility] Diastolic blood 2020-11-13 13:00:00 99 mm[Hg] Unive rsity of pressure [place] [facility] Heart rate 2020-11-13 13:00:00 80 /min Universi ty of [place] [facility] Body weight 2020-11-13 08:30:00 52.617 kg Universi ty of [place] [facility] BMI 2020-11-13 08:30:00 17.64 kg/m2 Universi ty [facility] [place] [facility] Body height 2020-11-10 10:26:00 172.7 cm Universi ty [facility] [place] [facility] Body temperature 2020-11-13 16:20:00 36.44 Charlene Univ ersity of [place] [facility] Respiratory rate 2020-11-13 16:20:00 21 /min Univ ersity of [place] [facility] Oxygen saturation in 2020-11-13 15:59:00 96 /min University of Arterial blood by [facility] Pulse oximetry Branch Systolic blood 2020-11-13 13:00:00 147 mm[Hg] Univer sity of pressure [place] [facility] Diastolic blood 2020-11-13 13:00:00 99 mm[Hg] Unive rsity of pressure [place] [facility] Heart rate 2020-11-13 13:00:00 80 /min Universi ty of [place] [facility] Body weight 2020-11-13 08:30:00 52.617 kg [facility]i ty [facility] [place] [facility] BMI 2020-11-13 08:30:00 17.64 kg/m2 [facility] [place] [facility] Body height 2020-11-10 10:26:00 172.7 cm [facility]i ty [facility] [place] [facility] Systolic blood 2022-03-29 11:01:00 150 mm[Hg] [facility] Diastolic blood 2022-03-29 11:01:00 90 mm[Hg] [facility] Heart rate 2022-03-29 11:01:00 88 /min [facility] Body temperature 2022-03-29 11:01:00 35.61 Charlene [facility] Respiratory rate 2022-03-29 11:01:00 18 /min [facility] Oxygen saturation in 2022-03-29 11:01:00 97 /min [facility] Arterial blood by Medical Ce nter Pulse oximetry Body weight 2022-03-29 06:00:00 49.714 kg [facility] BMI 2022-03-29 06:00:00 18.24 kg/m2 [facility] Body height 2022-03-27 22:32:00 165.1 cm [facility] Procedures Procedure Date / Time Performing Source Performed Clinician 2D ECHO W/ DOPPLER 2022-04-01 Quentin Palafox [facility] (CW/PW/COLOR) 09:58:03 [facility] XR CHEST 1 VIEW PORTABLE / 2022-03-29 AnamLaurie [facility] S [facility] BEDSIDE 07:47:00 [facility] MAGNESIUM 2022-03-29 Hali Rincon [facility] 04:23:00 [facility] COMPREHENSIVE METABOLIC PANEL 2022-03-29 [address] [facility] 04:23:00 [facility] CBC W/PLT COUNT & AUTO 2022-03-29 Cortes Tigreselam [facility] kes DIFFERENTIAL 04:22:00 [facility] CBC W/PLT COUNT & AUTO 2022-03-29 CortesToribio wiley [facility] kes DIFFERENTIAL 04:22:00 [facility] XR CHEST 1 VIEW PORTABLE / 2022-03-28 Simran Be [facility] BEDSIDE 07:10:00 [facility] XR CHEST 1 VIEW PORTABLE / 2022-03-27 Juanjose Berrios [facility] Luchi [facility] BEDSIDE 12:11:00 [facility] XR CHEST 1 VIEW PORTABLE / 2022-03-[address] [facility] BED[facility] 07:09:00 [facility] XR CHEST 1 VIEW PORTABLE / 2022-03-26 iLnda Quentin Acuña [facility] 18:12:00 [facility] SARS-COV2/RT-PCR ([facility] & REF 2022-03-26 Linda Quentin Acuña [facility] 07:40:00 [facility] XR CHEST 1 VIEW PORTABLE / 2022-03-[address] [facility] BEDSIDE 07:36:00 [facility] XR CHEST 1 VIEW PORTABLE / 2022-03-25 Gloyossi Simran [facility] 06:49:00 [facility] XR CHEST 1 VIEW PORTABLE / 2022-03-24 Gloyossi Simran [facility] 08:17:00 [facility] XR CHEST 1 VIEW PORTABLE / 2022-03-23 Gloyossi Simran [facility] 07:12:00 [facility] XR CHEST 1 VIEW PORTABLE / 2022-03-22 [place] Simran [facility] 07:05:00 [facility] XR CHEST 1 VIEW PORTABLE / 2022-03-[address] [facility] 09:23:00 [facility] XR CHEST 1 VIEW PORTABLE / 2022-03-20 Italo Benitez [facility] 12:39:00 [facility] XR CHEST 1 VIEW PORTABLE / 2022-03-[address] [facility] 06:55:00 [facility] BASIC METABOLIC PANEL 2022-03-20 Linda Quentin Domenico [facility] 05:20:00 [facility] XR CHEST 1 VIEW PORTABLE / 2022-03-19 [facility]eta [facility] 13:25:00 [facility] XR CHEST 1 VIEW PORTABLE / 2022-03-[address] [facility] 06:20:00 [facility] MAGNESIUM 2022-03-19 Linda Quentin Domenico [facility] 05:45:00 [facility] XR CHEST 1 VIEW PORTABLE / 2022-03-18 Laurie [facility]eta [facility] 16:21:00 [facility] XR CHEST 1 VIEW PORTABLE / 2022-03-[address] [facility] 12:20:00 [facility] XR CHEST 1 VIEW PORTABLE / 2022-03-[address] [facility] 09:46:00 [facility] POCT-GLUCOSE METER 2022-03-14 Palafox, Quentin B [facility] 12:50:00 [facility] POCT-GLUCOSE METER 2022-03-14 Palafox, Quentin B [facility] 07:29:00 [facility] CT CHEST WITHOUT IV CONTRAST 2022-03-13 Goyco VerYandel johnson [facility] 21:51:00 [facility] POCT-GLUCOSE METER 2022-03-13 Palafox, Quentin B [facility] 17:14:00 [facility] XR CHEST 1 VIEW PORTABLE / 2022-03-[address] [facility] 16:58:00 [facility] POCT-GLUCOSE METER 2022-03-13 Palafox, Quentin B [facility] 13:36:00 [facility] XR CHEST 1 VIEW PORTABLE / 2022-03-13 Palafox, [facility]entin [facility] 12:24:00 [facility] POCT-GLUCOSE METER 2022-03-12 Palafox, Quentin B [facility] 23:44:00 [facility] POCT-GLUCOSE METER 2022-03-12 Palafox, Quentin B [facility] 17:40:00 [facility] XR CHEST 1 VIEW PORTABLE / 2022-03-12 Nellyo Yandel Monroe [facility] 15:08:[address] [facility] CT CHEST WITHOUT IV CONTRAST 2022-03-12 Palafox, Quentin B [facility] 13:54:00 [facility] POCT-GLUCOSE METER 2022-03-12 Palafox, Quentin B [facility] 11:24:00 [facility] XR CHEST 1 VIEW PORTABLE / 2022-03-[address] [facility] 02:58:00 [facility] XR CHEST 1 VIEW PORTABLE / 2022-03-11 Palafox, [facility]entin [facility] 20:13:00 [facility] XR CHEST 1 VIEW PORTABLE / 2022-03-11 Palafox, Quentin Acuña [facility] 12:06:00 [facility] XR CHEST 1 VIEW PORTABLE / 2022-03-11 Nelson Song [facility] 00:53:00 [facility] POCT-GLUCOSE METER 2022-03-10 Palafox, Quentin B [facility] 16:09:00 [facility] POCT-GLUCOSE METER 2022-03-10 Palafox, Quentin B [facility] 10:54:00 [facility] ECG 12-LEAD 2022-03-09 Unknown, Hl7 Doctor [facility] 23:30:24 [facility] ECG 12-LEAD 2022-03-09 Unknown, Hl7 Doctor [facility] 23:30:24 [facility] ECG 12-LEAD 2022-03-09 Unknown, Hl7 Doctor [facility] 23:27:25 [facility] XR CHEST 1 VIEW PORTABLE / 2022-03-09 Du, Hali Chi Caitlyn [facility] 23:26:00 [facility] US ABDOMEN LIMITED 2022-03-09 Palafox, Quentin B [facility] 21:25:00 [facility] APTT 2022-03-[address] [facility] 20:11:00 [facility] HIGH SENSITIVITY TROPONIN I 2022-03-09 Du, Hali Chi Caitlyn [facility] 17:50:00 [facility] APTT 2022-03-[address] [facility] 13:06:00 [facility] HIGH SENSITIVITY TROPONIN I 2022-03-[address] [facility] 12:02:00 Medical Center ECG 12-LEAD 2022-03-09 Unknown, Hl7 Doctor [facility] 10:45:00 [facility] ECG 12-LEAD 2022-03-09 Unknown, Hl7 Doctor [facility] 10:43:41 [facility] ECG 12-LEAD 2022-03-09 Unknown, Hl7 Doctor [facility] 10:43:41 [facility] 2D ECHO W/ DOPPLER 2022-03-[address] [facility] (CW/PW/COLOR) 09:06:00 [facility] HEPATITIS PANEL, ACUTE 2022-03-[address] [facility] 07:27:00 [facility] POCT-GLUCOSE METER 2022-03-09 Palafox, Quentin B [facility] 07:25:00 Medical Center CBC W/PLT COUNT & AUTO 2022-03-[address] [facility] DIFFERENTIAL 03:21:00 [facility] APTT 2022-03-[address] [facility] 03:21:00 [facility] CBC W/PLT COUNT & AUTO 2022-03-[address] [facility] DIFFERENTIAL 03:21:00 [facility] COMPREHENSIVE METABOLIC PANEL 2022-03-[address] [facility] 03:21:00 [facility] HIGH SENSITIVITY TROPONIN I 2022-03-[address] [facility] 03:21:00 [facility] MAGNESIUM 2022-03-[address] [facility] 03:21:00 [facility] B-TYPE NATRIURETIC FACTOR 2022-03-[address] [facility] (BNP) 03:21:00 [facility] XR CHEST 1 VIEW PORTABLE / 2022-03-09 Linda Quentin B [facility] 02:51:00 [facility] ECG 12-LEAD 2022-03-09 Unknown, Hl7 Doctor [facility] 02:35:02 [facility] ECG 12-LEAD 2022-03-09 Unknown, Hl7 Doctor [facility] 02:34:18 [facility] ECG 12-LEAD 2022-03-[address] [facility] 02:32:32 [facility] ECG 12-LEAD 2022-03-09 Unknown, Hl7 Doctor [facility] 02:32:32 [facility] PROTHROMBIN TIME/INR 2022-03-[address] [facility] 00:42:00 [facility] APTT 2022-03-[address] [facility] 00:42:00 [facility] CYSTATIN C WITH EGFR 2022-03-[address] [facility] 00:42:00 [facility] VITAMIN B12 2022-03-[address] [facility] 00:42:00 [facility] IRON, TIBC, % SAT. (WITHOUT 2022-03-[address] [facility] FERRITIN) 00:42:00 [facility] FERRITIN 2022-03-[address] [facility] 00:42:00 Medical Center BLOOD CULTURE 2022-03-[address] [facility] 00:25:00 [facility] POCT-GLUCOSE METER 2022-03-[address] [facility] 00:23:00 [facility] SARS-COV2/RT-PCR ([facility] & REF 2022-03-[address] [facility]) 23:40:00 [facility] BLOOD GAS, VENOUS 2022-03-[address] [facility] 23:27:00 [facility] CBC W/PLT COUNT & AUTO 2022-03-[address] [facility] DIFFERENTIAL 23:26:00 [facility] COMPREHENSIVE METABOLIC PANEL 2022-03-[address] [facility] 23:26:00 [facility] CBC W/PLT COUNT & AUTO 2022-03-[address] [facility] DIFFERENTIAL 23:26:00 [facility] HIGH SENSITIVITY TROPONIN I 2022-03-[address] [facility] 23:26:00 [facility] MAGNESIUM 2022-03-[address] [facility] 23:26:00 [facility] LACTIC ACID, VENOUS 2022-03-[address] [facility] 23:26:00 [facility] LIPID PANEL 2022-03-[address] [facility] 23:26:00 [facility] XR CHEST 1 VIEW PORTABLE / 2022-03-08 Peyman [facility] 22:59:00 [facility] CARDIAC CATH REPORT - SCAN 2022-03-08 Provider, Default [facility] 00:00:00 Scanning [facility] VASCULAR DIAGRAM -SCAN 2022-03-08 Provider, Default [facility] 00:00:00 [facility] PERMANENT LAB REPORT - SCAN 2022-03-08 Provider, Default [facility] 00:00:00 Scanning [facility] ALBUMIN 2020-12-04 Nelson Mayes [facility] xas 10:05:00 Medical Branch MAGNESIUM 2020-12-04 Nelson Mayes [facility] xas 10:05:00 Medical Branch BASIC METABOLIC PANEL (NA, K, 2020-12-04 Nelson Mayes [facility] CL, CO2, GLUCOSE, BUN, 10:05:00 Medical B ranch CREATININE, CA) CBC WITH DIFF 2020-12-04 Ger[facility] xas 10:05:00 Medical Branch MAGNESIUM 2020-12-03 [facility] 11:08:00 [facility] Branch BASIC METABOLIC PANEL (NA, K, 2020-12-03 [facility], CO2, GLUCOSE, BUN, 11:08:00 Medical B ran CREATININE, CA) CBC WITH DIFF 2020-12-03 [facility] xas 11:08:00 Medical Branch PHOSPHORUS 2020-12-01 [facility] 09:38:00 Medical Branch MAGNESIUM 2020-12-01 [facility] 09:38:00 [facility] Branch BASIC METABOLIC PANEL (NA, K, 2020-12-01 Blake [facility] CL, CO2, GLUCOSE, BUN, 09:38:00 Medical B ran CREATININE, CA) CBC WITH DIFF 2020-12-01 [facility] system xas 09:38:00 Medical Branch SPUTUM CULTURE 2020-11-29 [facility] 00:25:00 Medical Branch AC PANEL 21 + LACTIC ACID 2020-11-28 [facility] 20:07:00 Medical Branch URINALYSIS 2020-11-28 Amelia Ziegler [facility] 09:43:00 Medical Branch PNEUMOCOCCAL ANTIGEN 2020-11-28 [facility] 09:43:00 Medical Branch MAGNESIUM 2020-11-28 Irma Webb [facility] xa 09:25:00 Medical Branch HEPATIC FUNCTION PANEL 2020-11-28 Irma Webb [facility] ([id number]) (ALB,T.PRO,BILI 09:25:00 Medical Branch T,BU/BC,ALT,AST,ALK PHOS) BASIC METABOLIC PANEL (NA, K, 2020-11-28 Irma Webb [facility] CL, CO2, GLUCOSE, BUN, 09:25:00 Medical B ran CREATININE, CA) CBC WITH DIFF 2020-11-28 Irma Webb [facility] xas 09:25:00 Medical Branch AC PANEL 21 + LACTIC ACID 2020-11-28 Adelina Llanos [facility] 09:25:00 Medical Branch XR RIBS 4+ VW BILATERAL 2020-11-[address] [facility] 05:40:20 Medical Branch EXTERNAL PROVIDER RECORDS 2020-11-28 Doctor Unassigned, [facility] 05:01:00 [place] [facility] AC PANEL 20 + LACTIC ACID 2020-11-28 Yemi Ford [facility] 03:42:00 Medical Branch ACUTE CARE VENOUS BLOOD GAS 2020-11-28 Irma Webb [facility] 00:44:00 Medical Branch PROCALCITONIN 2020-11-27 Irma Webb [facility] xa 23:38:00 Medical Branch TROPONIN I 2020-11-27 Irma Webb [facility] xas 23:00:00 Medical Branch ACUTE CARE ARTERIAL BLOOD GAS 2020-11-27 Irma Webb Un [facility] 23:00:00 Medical Branch MRSA / MSSA SCREEN BY PCR, 2020-11-27 Irma Webb [facility] 23:00:00 Medical Branch HB ECG ROUTINE & RHYTHM STRIP 2020-11-27 Irma Webb [facility] 22:54:06 Medical Branch BLOOD CULTURE SCREEN 2020-11-27 Amelia Ziegler [facility] 16:29:00 Medical Branch XR CHEST 1 VW 2020-11-27 Amleia Ziegler [facility] xa 16:23:02 Medical Branch COVID-19 (ID NOW RAPID 2020-11-27 Amelia Ziegler [facility] TESTING) 15:48:00 Medical Branch LAB ONLY COVID INTERPRETATION 2020-11-27 Amelia Ziegler Un [facility] 15:48:00 Medical Branch BLOOD CULTURE SCREEN 2020-11-27 Amelia Ziegler [facility] 15:44:00 Medical Branch GAMMA GLUTAMYLTRANSFERASE 2020-11-27 Irma Webb [facility] 15:44:00 Medical Branch TROPONIN I 2020-11-27 Amelia Ziegler [facility] 15:44:00 Medical Branch COMP. METABOLIC PANEL ([id number]) 2020-11-27 Amelia Ziegler [facility] 15:44:00 Medical Branch CBC WITH DIFF 2020-11-27 Amelia Ziegler [facility] 15:44:00 Medical Branch N-TERMINAL PRO-BNP 2020-11-27 Irma Webb [facility] 15:44:00 [facility] AC PANEL 21 + LACTIC ACID 2020-11-27 Amelia Ziegler [facility] 15:44:00 Medical Branch CONSENT/REFUSAL FOR DIAGNOSIS 2020-11-27 Doctor Unassigned, [facility] AND TREATMENT 15:18:15 [place] [facility] AGREEMENTS AUTHORIZATIONS AND 2020-11-27 Doctor Unassigned, [facility] IRREVOCABLE ASSIGNMENTS (FORM 05:01:00 [place] [facility] 2000) C-REACTIVE PROTEIN 2020-11-13 Luz Maria Jessica [facility] 00:29:00 [facility] N-TERMINAL PRO-BNP 2020-11-13 Hugh [facility] 00:29:00 [facility] PROCALCITONIN 2020-11-13 Luz Maria Jessica [facility] 00:29:00 [facility] TRANSTHORACIC ECHO (TTE) 2020-11-12 Amanda Daniels [facility] COMPLETE 17:46:08 [facility] LOWER EXTREMITY ARTERIAL 2020-11-12 [facility] DUPLEX BILATERAL - BY 16:02:28 Medical anch VASCULAR LAB BASIC METABOLIC PANEL (NA, K, 2020-11-12 Clarence Bach [facility] CL, CO2, GLUCOSE, BUN, 13:56:00 [facility] ran CREATININE, CA) CBC WITH DIFF 2020-11-12 [facility] 13:55:00 [facility] BLOOD CULTURE SCREEN 2020-11-12 [facility] 11:17:00 [facility] BLOOD CULTURE SCREEN 2020-11-12 [facility] 11:12:00 [facility] THYROID STIMULATING HORMONE 2020[facility]11 [facility] 22:[facility] VANCOMYCIN TROUGH 2020-11-11 [facility] THORAX W CONTRAST 2020-11-10 [facility] 18:02:33 [facility] URINALYSIS 2020-11-10 [facility]:14[facility]00 [facility] Branch XR CHEST 1 VW 2020-11-10 [facility] 08:57:43 Medical Branch BLOOD CULTURE SCREEN 2020-11-10 Vidhya Fuentes [facility] 08:45:00 Medical Branch BLOOD CULTURE WORKUP 2020-11-10 [facility] 08:45:00 [facility] GRAM NEGATIVE BLOOD PATHOGENS 2020-11-10 Vidhya Fuentes [facility] DNA PROBE-AEROBIC 08:45:00 Medical Branch BLOOD CULTURE SCREEN 2020-11-10 Vidhya Fuentes [facility] 08:43:00 [facility] LACTIC ACID WHOLE BLOOD 2020-11-10 Vidhya Fuentes [facility] 08:43:00 Medical Branch BLOOD CULTURE WORKUP 2020-11-10 Vidhya Fuentes [facility] 08:43:00 Medical Branch FREE T4 2020-11-10 [facility] 08:42:00 [facility] COMP. METABOLIC PANEL ([id number]) 2020-11-10 Vidhya Fuentes [facility] 08:42:00 Medical Branch CBC WITH DIFF 2020-11-10 Vidhya Fuentes [facility] ex 08:42:00 Medical Branch FREE T3 2020-11-[address] [facility] xas 08:42:00 Medical Branch COVID-19 (ID NOW RAPID 2020-11-[address] [facility] TESTING) 08:42:00 Medical Branch LAB ONLY COVID INTERPRETATION 2020-11-10 Vidhya Fuentes [facility] 08:42:00 Medical [place] HB ECG ROUTINE & RHYTHM STRIP 2020-11-10 Vidhya Fuentes [facility] 08:40:08 Medical Branch NOTICE OF PRIVACY PRACTICES 2020-11-10 Doctor Unassigned, [facility] 08:36:16 [place] [facility] CONSENT/REFUSAL FOR DIAGNOSIS 2020-11-10 Doctor Unassigned, [facility] AND TREATMENT 08:35:48 [place] [facility] Plan of Care Planned Activity Planned Date Details Comments Source Future Scheduled 2022-06-[address] [facility] 00:00:00 (12+) [code = Medical Center DEPRESSION SCREENING (12+)] Future Scheduled 2022-06-08 FALLS RISK SCREENING [facility] 00:00:00 [code = FALLS RISK Medical C enter SCREENING] Future Scheduled 2022-02-06 INFLUENZA VACCINE (#1) [facility] 00:00:00 [code = INFLUENZA Medical Ce nter VACCINE (#1)] Future Scheduled 2022-02-06 INFLUENZA VACCINE (#1) C [...] FIRST YEAR if no IPPE)] Future Scheduled 2015-01-[address] [...] Center VACCINES (1 of 2)] Future Scheduled 1999 SHINGLES VACCINES ([address] [facility] 00:00:00 2[facility] Future Scheduled 1968-01-25 DTAP/TDAP/TD [facility]ACCINES [facility] 00:00:00 (1 - Tdap) [code = Medical C enter DTAP/TDAP/TD VACCINES (1 - Tdap)] Future Scheduled 1968-01-25 DTAP/TDAP/TD VACCINES [facility] 00:00:00 (1 - Tdap) [code = Medical C enter DTAP/TDAP/TD VACCINES (1 - Tdap)] Future Scheduled 1967 HEPATITIS C [facility]CRE[facility]ING [facility] 00:00:00 [code = HEPATITIS C Medical Center SCREENING] Future Scheduled [address] [facility] Test 00:00:00 Counseling and Medical Cente r Screening (12+) [code = Tobacco Cessation Counseling and Screening (12+)] Future Scheduled 1955 PNEUMOCOCCAL 65+ YRS ([address] [facility] Test 00:00:00 - PCV) [code = Medical Cente r PNEUMOCOCCAL 65+ YRS (1 - PCV)] Future Scheduled 1949 COVID-19 VACCINE (#1) [facility] 00:00:00 [code = COVID-[address] VACCINE (#1)] Future Scheduled 1949 COVID-19 VACCINE (#1) [facility] 00:00:00 [code = COVID-[address] VACCINE (#1)] Future Scheduled 1949 Screening for malignant [facility] 00:00:00 neoplasm of breast Medical C enter (procedure) [code = 486580779] Future Scheduled 1949 CT Colonography (combo) [facility] 00:00:00 [code = CT Colonography [facility] (combo)] Future Scheduled 1949 Screening for malignant [facility] 00:00:00 neoplasm of colon Medical Ce nter (procedure) [code = 805014488] Future Scheduled 1949 Screening for malignant [facility] Test 00:00:00 neoplasm of colon Medical Ce nter (procedure) [code = 603455061] Future Scheduled 1949 DXA SCAN [code = DXA [facility] 00:00:00 SCAN] [facility] Future Scheduled 1949 Screening for malignant [facility] Test 00:00:00 neoplasm of colon Medical Ce nter (procedure) [code = 140443726] Future Scheduled 1949 Screening for malignant [facility] Test 00:00:00 neoplasm of colon Medical Ce nter (procedure) [code = 334450927] Future Scheduled 1949 Sigmoidoscopy [code = [facility] 00:[facility] Sigmoidoscopy] Medical Cente r Future Scheduled 1949 Screening for malignant [facility] Test 00:00:00 neoplasm of breast Medical C enter (procedure) [code = 317712657] Future Scheduled 1949 CT Colonography (combo) [facility] 00:00:00 [code = CT Colonography [facility] (combo)] Future Scheduled 1949 Screening for malignant [facility] 00:00:00 neoplasm of colon Medical Ce nter (procedure) [code = 690177771] Future Scheduled 1949 Screening for malignant [facility] Test 00:00:00 neoplasm of colon Medical Ce nter (procedure) [code = 803539697] Future Scheduled 1949 DXA SCAN [code = DXA [facility] 00:00:00 SCAN] [facility] Future Scheduled 1949 Screening for malignant [facility] Test 00:00:00 neoplasm of colon Medical Ce nter (procedure) [code = 528850282] Future Scheduled 1949 Screening for malignant [facility] 00:00:00 neoplasm of colon Medical Ce nter (procedure) [code = 219517068] Future Scheduled 1949 Sigmoidoscopy [code = [facility] 00:00:00 Sigmoidoscopy] Medical Cente r Encounters Start End Encounter Admission Attending Care Care Encounter Source Date/Time Date/Time Type Type Clinicians Facility Department ID 2020-12-14 Inpatient ER ADHI, [facility] Medical ICU [id number] [facility] 20:10:00 CHAO 2022-03-08 2022-03-29 Inpatient ER ZORAIDA, [facility] Medical ICU [id number] SLE 22:22:00 13:40:00 MARTHA 2022-03-08 2022-03-[address] [facility] [id number] [facility] 22:22:00 13:40:00 Encounter Martha Conway Kimberly [facility] 2022-03-27 2022-03-[address] [facility] [id number] [facility] 00:00:00 00:00:00 [facility] 2022-03-09 2022-03-09 Outpatient BCM BCM [id number] [facility] 00:00:00 23:59:00 [facility] 2022-03-09 2022-03-[address] [facility] [id number] [facility] 00:00:00 00:00:00 [facility] 2020-12-14 2020-12-14 Outpatient BCM BCM [id number] [facility] 00:00:00 23:59:00 [facility] 2020-12-05 2020-12-05 Transition Radha Paula [id number] [facility] 00:00:00 00:00:00 of Care Lele Hanley [id number] ity of [place] [id number] [facility] s [phone] [facility] 403 Branch 2020-12-05 2020-12-05 Transition Radha Paula [id number] 00:00:00 00:00:00 of Care Lele Hanley [id number] [place] [id number] [id number] 2020-11-27 2020-12-04 [facility] mAelia Ziegler [id number] [facility] 10:20:00 19:30:00 Encounter Kashif Strong [id number] ity of Wendi Lynch [facility] [id number] [place] [phone] [facility] 100 Branch 2020-11-27 2020-12-04 [facility] Amelia Ziegler [id number] 10:20:00 19:30:00 Encounter Kashif Strong [id number] Wendi Lynch [facility] [phone] 100 2020-11-27 2020-11-27 Emergency X Amelia ZIEGLER RUST ERT [id number] [facility] 10:20:00 10:20:00 ity of [facility] 2020-11-27 2020-11-27 Orders Doctor CLAIRE [id number] Univers 00:00:00 00:00:00 Only Unassigned, MAGDA [id number] ity of [place] [facility] [id number] Juni as [phone] [facility] 009 Branch 2020-11-27 2020-11-27 Orders Doctor CLAIRE [id number] 00:00:00 00:00:00 Only Unassigned, MAGDA [id number] [place] [facility] [id number] [id number] 2020-11-14 2020-11-14 Transition Radha Paula [id number] [facility] 00:00:00 00:00:00 of Care Lele Hanley [id number] [place] [id number] [phone] [facility] 403 Branch 2020-11-14 2020-11-14 Transition Radha Paula [id number] 00:00:00 00:00:00 of Care Lele Hanley [id number] [place] [id number] 403 2020-11-10 2020-11-13 [facility] Valentinaninofilipe Edwardaden Humphreys RUST 1.2.840. [id number] Univers 03:31:00 16:48:00 Encounter Clarence Bach [id number] ity of Amanda Daniels [id number] [facility] [phone] [facility] 080 Branch 2020-11-10 2020-11-13 Hospital Vidhya Fuentes RUST 1.2.840. 114 [id number] 03:31:00 16:48:00 Encounter Clarence Bach [id number] Hughkristine Amanda Terry [id number] [place] [phone] [facility] 2020-11-10 2020-11-10 Emergency X GINA RUST ERT [id number] [employer] 03:31:00 03:31:00 ILADEN [facility] Results Test Description Test Time Test Comments Results Result Comments Source MAGNESIUM 2022-04-29 12:31:02 Test Item Value Reference Range Interpretation Comme nts MAGNESIUM (BEAKER) (test code = 627) 2.0 mg/dL 1.6-2.6 BASIC METABOLIC [id number] 08:50:55 Test Item Value Reference Range Interpretation Comments SODIUM (BEAKER) 142 meq/L 135-148 (test code = 381) POTASSIUM 3.9 meq/L (BEAKER) (test code = 379) CHLORIDE (BEAKER) 108 meq/L 98-106 H (test code = 382) CO2 (BEAKER) 27 meq/L (test code = 355) BLOOD UREA 10 mg/dL 10-26 NITROGEN (BEAKER) (test code = 354) CREATININE 0.66 mg/dL 0.50-1.20 (BEAKER) (test code = 358) GLUCOSE RANDOM 97 mg/dL (BEAKER) (test code = 652) CALCIUM (BEAKER) 8.8 mg/dL 8.5-10.5 (test code = 697) EGFR (BEAKER) 93 Interpretatio n of eGFR (test code = mL/min/1.73 values Stage De scription 1092) sq m Result G1 Nita l or high >=90 G2 Mildly decreased 60-89 G3a Mildl y to moderately 45-5 9 G3b Moderately to s everely 30-44 G4 Severl y decreased 15-29 G5 Kidney failure <15Reported eGF R is based on the CKD-EPI 2020 equation that d oes not use a race coefficientEsti mated GFR is not as accur ate as Creatinine Meghana jennings in predicting glom erular filtration rate . Estimated GFR is not appl icable for dialysis patien ts BLOOD [id number] 11:01:12 Test Item Value Reference Range Interpretation Comments CULTURE (BEAKER) (test No growth in 5 days code = 1095) SARS-COV2/RT-PCR ([facility] REF LABS)2022-03-30 11:31:45 Test Item Value Reference Range Interpretation Comments SARS-COV2/RT-PCR (test Negative Not Detected, Negative, code = 0001678) See external report for linked test SARS-COV-2 PERFORMING LAB [facility] JESSICA (test code = 7588757) Negative result for this test determines that SARS-CoV-2 RNA was not present in the specimen above the Limit of Detection (LOD). However, Negative results do not preclude SARS-CoV-2 infection and should not be used as the sole basis for treatment or patient management decisions. Negative results must be combined with clinical observations, patient history, and epidemiological information. A false negative result may occur if a specimen is improperly collected, transported or handled. A false negative result should be considered if patient's recent exposures or clinical presentation indicate that COVID-19 (SARS-CoV-2) is likely and diagnostic tests for other causes of illness are negative. Re-testing should be considered in cases of suspected false negatives.The limit of detection for this assay is 800 copies/mL.This SARS CoV-2 test is a real-time RT-PCR test intended for the qualitative detection of nucleic acid from SARS-CoV-2 in a nasopharyngeal swab specimen collected from individuals suspected of COVID-19 by their healthcare provider.This test has not been Food and Drug Administration (FDA) cleared or approved. This is a modified version of an approved Emergency Use Authorization (EUA) and is in the process of review by the FDA. Once authorized by the FDA, the issued EUA will be effective until the declaration that circumstances exist justifying the authorization of the emergency use ofin vitro diagnostic tests for detection and/or diagnosis of COVID-19 is terminated under Section 564(b)(2) of the Act or the EUA is revoked under Section 564(g) of the Act.Fact Sheet for Healthcare Prov iders:https://www.VersionOne.City[employer]/sites/default/files/product/documents/Fact_Sheet_HC _Rkvvffoqx_Grpu_UPYK-DwT-6.pdfFact Sheet for Healthcare Patients:https://www.VersionOne.[employer]/sites/default/files/product/docume nts/Ulej_Hzjng_Zpkxrrwq_Szbe_KRYV-IxC-6.pdfPerforming Laboratory:[facility], [place] [address]UCE, CHEST, 1 VIEW, NON [id number] 13:36:00 [facility] 1950 Sex: FFINAL REPORT TECHNIQUE: Frontal radiograph of the chest. Indication: Evaluate pneumothorax COMPARISON: Chest x-ray dated 03/28/2022 FINDINGS: No chest tubes are seen. The heart is mildly enlarged. Mild interstitial opacities are seen in the lungs, unchanged from prior. There is no pneumothorax or pleural effusion. The upper abdomen is normal. There is dextroscoliosis of the thoracic spine. Subcutaneous emphysema is again seen along the right chest wall extending to the right neck. IMPRESSION: 1. No evidence of pneumothorax.2. Unchanged subcutaneous emphysema in the right chest wall.3. Interstitial opacities in the lungs bilaterally. Signed: Teddy Leblanc Verified Date/Time: 03/29/2022 13:36:13 Reading Location: [address] Reading Room Electronically signedby: TEDDY LEBLANC MD on 03/29/2022 01:36 PM COMPREHENSIVE METABOLIC [id number] 05:29:56 Test Item Value Reference Range Interpretation Comments TOTAL PROTEIN 5.7 gm/dL 6.0-8.3 L (BEAKER) (test code = 770) ALBUMIN (BEAKER) 3.2 g/dL 3.5-5.0 L (test code = 1145) ALKALINE 64 U/L 40-150 PHOSPHATASE (BEAKER) (test code = 346) BILIRUBIN TOTAL 0.3 mg/dL 0.2-1.2 (BEAKER) (test code = 377) SODIUM (BEAKER) 138 meq/L 136-145 (test code = 381) POTASSIUM (BEAKER) 3.9 meq/L 3.5-5.1 (test code = 379) CHLORIDE (BEAKER) 103 meq/L 98-107 (test code = 382) CO2 (BEAKER) (test 28 meq/L 22-29 code = 355) BLOOD UREA 10 mg/dL 7-21 NITROGEN (BEAKER) (test code = 354) CREATININE 0.67 mg/dL 0.57-1.25 (BEAKER) (test code = 358) GLUCOSE RANDOM 86 mg/dL 70-105 (BEAKER) (test code = 652) CALCIUM (BEAKER) 9.2 mg/dL 8.4-10.2 (test code = 697) AST (SGOT) 21 U/L 5-34 (BEAKER) (test code = 353) ALT (SGPT) 14 U/L 6-55 (BEAKER) (test code = 347) EGFR (BEAKER) 92 Interpretatio n of eGFR (test code = 1092) mL/min/1.[address] age Description sq m Result G1 Nita l or high >=90 G2 Mildly decreased 60-89 G3a Mildl y to moderately 45- 59 G3b Moderately to s everely 30-44 G4 Severl y decreased 15-29 G5 Kidney failure <15Reported eGF R is based on the CKD-EPI 2021 equation that d oes not use a race coefficientEsti mated GFR is not as accur ate as Creatinine Meghana jennings in predicting glom erular filtration rate . Estimated GFR is not appl icable for dialysis patien ts Typing Teacher ID - [id number] 05:29:56 Test Item Value Reference Range Interpretation Comments MAGNESIUM (BEAKER) (test code = 2.1 mg/dL 1.6-2.6 627) Typing Teacher ID - ADMINCBC W/PLT COUNT & AUTO [id number] 04:47:02 Test Item Value Reference Range Interpretation Comments WHITE BLOOD CELL COUNT (BEAKER) 6.9 K/ L 3.5-10.5 (test code = 775) RED BLOOD CELL COUNT (BEAKER) 3.89 M/ L 3.93-5.22 L (test code = 761) HEMOGLOBIN (BEAKER) (test code = 11.9 GM/DL 11.2-15.7 410) HEMATOCRIT (BEAKER) (test code = 36.0 % 34.1-44.9 411) MEAN CORPUSCULAR VOLUME (BEAKER) 93 fL 79-95 (test code = 753) MEAN CORPUSCULAR HEMOGLOBIN 30.6 pg 25.6-32.2 (BEAKER) (test code = 751) MEAN CORPUSCULAR HEMOGLOBIN CONC 33.1 GM/DL 32.2-35.5 (BEAKER) (test code = 752) RED CELL DISTRIBUTION WIDTH 14.1 % 11.7-14.4 (BEAKER) (test code = 412) PLATELET COUNT (BEAKER) (test 183 K/CU MM 150-450 code = 756) MEAN PLATELET VOLUME (BEAKER) 9.5 fL 9.4-12.3 (test code = 754) NUCLEATED RED BLOOD CELLS 0 /100 WBC 0-0 (BEAKER) (test code = 413) NEUTROPHILS RELATIVE PERCENT 55 % (BEAKER) (test code = 429) LYMPHOCYTES RELATIVE PERCENT 20 % (BEAKER) (test code = 430) MONOCYTES RELATIVE PERCENT 9 % (BEAKER) (test code = 431) EOSINOPHILS RELATIVE PERCENT 15 % (BEAKER) (test code = 432) BASOPHILS RELATIVE PERCENT 1 % (BEAKER) (test code = 437) NEUTROPHILS ABSOLUTE COUNT 3.77 K/ L 1.56-6.13 (BEAKER) (test code = 670) LYMPHOCYTES ABSOLUTE COUNT 1.38 K/ L 1.18-3.74 (BEAKER) (test code = 414) MONOCYTES ABSOLUTE COUNT (BEAKER) 0.62 K/ L 0.24-0.36 H (test code = 415) EOSINOPHILS ABSOLUTE COUNT 1.04 K/ L 0.04-0.36 H (BEAKER) (test code = 416) BASOPHILS ABSOLUTE COUNT (BEAKER) 0.07 K/ L 0.01-0.08 (test code = 417) IMMATURE GRANULOCYTES-RELATIVE 0.30 % 0.00-1.00 PERCENT (BEAKER) (test code = 2801) SARS-CoV2/RT-PCR ([facility])2022-03-28 17:05:17 Test Item Value Reference Range Interpretation Comments SARS-COV2/RT-PCR Negative Negative The SARS-Co V-2 (test code = target nucleic acids 61590-2) are not detecte d in this specimen. Negative result s do not preclude SARS-CoV-2 infe ction and should not be used as the santana e basis for patie nt management decisions. Nega tive results must be combined with clinical observations, patient history , and epidemiological information. A false negative result may occur if a spec imen is improperly collected, transported or handled. This S ARS CoV-2 test is a rapid, real-jg e RT-PCR test int ended for the qualita tive detection of nu cleic acid from SARS- CoV-2 in a nasopharyn geal swab specimen collected from individuals suspected of COVID-19 by the [facility] ide. SARS-COV-2 [facility] (test code = [address] [address]) [place] [address] ph: [phone] CHRISTINE (test code = This test has been CHRISTINE) authorized by FDA under an EUA for use by authorized laboratories. This test is only authorized for the duration of the declaration that circumstances exist justifying the authorization of emergency use of in vitro diagnostic tests for detection and/or diagnosis of COVID-19 under Section 564(b)(1) of the Federal Food, Drug and Cosmetic Act, 21 U.S.C. 360bbb-3(b)(1), unless the authorization is terminated or revoked sooner. Fact Sheet for Healthcare Providers: https://www.SeatKarma/Documents/Xper t%20Xpress%20SARS%2 0CoV-2/Fact%20Sheet s/302-5832%20SARS-C OV-2%20HEALTHCARE%2 0PROVIDERS%20FACT%2 0SHEET.pdf Fact Sheet for Healthcare Patients: https://www.SeatKarma/Documents/Xper t%20Xpress%20SARS%2 0CoV-2/Fact%20Sheet s/302-3801%20SARS-C OV-2%20PATIENT%20FA CT%20SHEET.pdf [facility])2022-03-28 17:05:17 Test Item Value Reference Range Interpretation Comments SARS-COV2/RT-PCR Negative Negative The SARS-Co V-2 target (test code = nucleic acids a re not 6094759) detected in thi s specimen. Negat hermila results do not preclude SARS-CoV-2 infe ction and should not be u sed as the sole basis for patient management deci sions. Negative result s must be combined with c linical observations, p atient history, and epidemiological information. A false negative result may occur if a specimen i s improperly nini ected, transported or handled. This SARS CoV-2 test is a rapid, real-jg e RT-PCR test intended f or the qualitative det ection of nucleic acid fr om SARS-CoV-2 in a nasopharyngeal swab specimen collec cristhian from individuals dave pected of COVID-19 by the [facility] ide. SARS-COV-2 [facility] ([place] [address] code = [id number]) [facility] [place], [place] [address]bh: This test has been authorized by FDA under an EUA for use by authorized laboratories. This test is only authorized for the duration of the declaration that circumstances exist justifying the authorization of emergency use of in vitro diagnostic tests for detection and/or diagnosis of COVID-19 under Section 564(b)(1) of the Federal Food, Drug and Cosmetic Act, 21 U.S.C. 360bbb-3(b)(1), unless the authorization is terminated or revoked sooner. Fact Sheet for Healthcare Providers: https://www.Inoapps.Znode m/Documents/Xpert%20Xpress%20SARS%20CoV-2/Fact%20Sheets/302-3802%25FJQJ-SQP-4%20 HEALTHCARE%20PROVIDERS%20FACT%20SHEET.pdf Fact Sheet for Healthcare Patients: https://www.cepheid.com/Documents/Xpert%20Xp ress%20SARS%20CoV-2/Fact%20Sheets/302-3801%67HVQQ-PSP-2%20PATIENT%20FACT%20SHEET .pdfRAD, CHEST, 1 VIEW, NON [id number] 07:46:00daily am portable [facility] 1950 Sex: FFINAL REPORT RAD, CHEST, 1 VIEW, NON DEPT INDICATION: pneumothorax COMPARISON: Priorday's exam TECHNIQUE: Portable frontal view of the chest. FINDINGS: Support Lines and Devices: Stable. Lungs and pleura: Unchanged airspace and pleural opacities. No pneumothorax identified. Heart and m ediastinum: Stable contours. Stable surgical changes. Additional findings: Subcutaneous emphysema inthe right chest wall. IMPRESSION: No significant change from prior exam. No pneumothorax identified.Signed: Hue Smith MDReport Verified Date/Time: 03/28/2022 07:46:54 Reading Location: [address] Reading Room BLOOD [id number] 02:59:28 Test Item Value Reference Range Interpretation Comments CULTURE (BEAKER) (test No growth in 5 days code = 1095) The specimen volume collected for this blood culture was below the optimum (10 mL per bottle or 20 mL total). Use of lower volumes may adversely affect recovery and/or detection times of some organisms.POC-Glucose [id number] 12:54:47 Test Item Value Reference Range Interpretation Comments POC-Glucose Meter (test 120 mg/dL 70-110 H : TE STED AT [facility] code = 1538) [address] [facility], 770 [address]: Typing Teacher/Techni ethel ID = [id number] for Luz Maria Pierson Lab Interpretation (test Abnormal code = 24902-4) [facility] [id number] 12:54:47 Test Item Value Reference Range Interpretation Comments POC-GLUCOSE METER 120 mg/dL 70-110 H : TESTED A T [facility] 6720 (BEAKER) (test code = CAMILA R [facility], 1538) [address]: Typing Teacher/Techni ethel ID = [id number] for Luz Maria Morse RAD, CHEST, 1 VIEW, NON [id number] 12:39:00 [facility] : 1950 Sex: FFINAL REPORT INDICATION: sob COMPARISON: 03/27/2022 7:03 AM TECHNIQUE: Single frontal view of the chest. FINDINGS: Lines, tubes, and devices: Right- sided chest tube.Lungs and pleura: Clear lungs. No pneumothorax.Heart and mediastinum: Normal heart size. Unremarkable mediastinal contours.Osseous structures: No acute abnormality. The patient is rotated to the left.Other: The patient is rotated to the left. Subcutaneous emphysema in the right chest wall. IMPRESSION: 1.Right-sided chest tube without pneumothorax identified.2.Subcutaneous emphysema in the right chest wall. Signed: Hue Smith MDReport Verified Date/Time: 03/27/2022 12:39:33 Reading Location: [address] Reading Room POCT-GLUCOSE [id number] 12:35:59 Test Item Value Reference Range Interpretation Comments POC-GLUCOSE METER 91 mg/dL 70-110 : TESTED A T [facility] [address] ([facility]) (test code = [facility], 153) [address]: Typing Teacher/Techni ethel ID = [id number] for Catherine Mcintosh POCT-GLUCOSE [id number] 12:04:55 Test Item Value Reference Range Interpretation Comments POC-GLUCOSE METER 121 mg/dL 70-110 H : TESTED A T [facility] [address] ([facility]) (test code = [facility], 1538) 37982: Typing Teacher/Techni ethel ID = [id number] for IB RAHIM, SERKALEM POCT-GLUCOSE [id number] 11:56:34 Test Item Value Reference Range Interpretation Comments POC-GLUCOSE METER 121 mg/dL 70-110 H : TESTED A T [facility] [address] ([facility]) (test code = [facility], 153) 15[address]: Typing Teacher/Techni ethel ID = [id number] for IB RAHIM, [place]AL[place] POCT-GLUCOSE [id number] 11:18:21 Test Item Value Reference Range Interpretation Comments POC-GLUCOSE METER 115 mg/dL 70-110 H : Notified RN/MD: TESTED ([facility]) (test code AT [facility] 1538[facility], 770 30: Typing Teacher/Techni ethel ID = [id number] for SUGU , SHEENAMOL POCT-GLUCOSE [id number] 11:05:54 Test Item Value Reference Range Interpretation Comments POC-GLUCOSE METER 143 mg/dL 70-110 H : TESTED A T [facility] ([facility]) (test code = [facility], 1538) [address]367: Typing Teacher/Techni ethel ID = [id number] for MA RIN, BRITTANY POCT-GLUCOSE [id number] 10:50:59 Test Item Value Reference Range Interpretation Comments POC-GLUCOSE METER 120 mg/dL 70-110 H : TESTED A T [facility] ([facility]) (test code = [facility], 1538) 91002: Typing Teacher/Techni ehtel ID = [id number] for MA RIN, BRITTANY POCT-GLUCOSE [id number] 08:57:10 Test Item Value Reference Range Interpretation Comments POC-GLUCOSE METER 96 mg/dL 70-110 : TESTED A T [facility] (BEAKER) (test code = CAMILA [place] [facility], 1538) [address]: Typing Teacher/Techni ethel ID = [id number] for MARCELINO HO POCT-GLUCOSE [id number] 08:40:45 Test Item Value Reference Range Interpretation Comments POC-GLUCOSE METER 113 mg/dL 70-110 H : TESTED A T [facility] 67[address] (BEAKER) (test code = CAMILA [place] [facility], 1538) [address]: Typing Teacher/Techni ethel ID = [id number] for MARCELINO MARIE RAD, CHEST, 1 VIEW, NON [id number] 07:47:00downtime order [facility] : 1950 Sex: FFINAL REPORT RAD, CHEST, 1 VIEW, NON DEPT INDICATION: eval pneumothorax, am portableCOMPARISON: Prior day's exam TECHNIQUE: Portable frontal view of the chest. FINDINGS: Support Lines and Devices: Stable. Lungs and pleura: Unchanged airspace and pleural opacities. No pneumothorax identified. Heart and mediastinum: Stable contours. Stable surgical changes. Additional findings: Subcutaneous emphysema in the right chest wall. IMPRESSION: 1.No significant change from prior exam.2.Right-sided chest tube without definite pneumothorax.3. Subcutaneous emphysema in the right chest wall. Signed: Hue Smithepcory Verified Date/Time: 03/27/2022 07:47:18 Reading Location: [facility] [address] [place] [address] RAD, CHEST, 1 VIEW, NON [id number] 18:31:0024T-54 [facility] : 1950 Sex: FFINAL REPORT EXAM: Chest one view COMPARISON: March 26, 2022 CLINICAL HISTORY: Pneumothorax FINDINGS: A right-sided chest tube is again noted. There is no evidence of pneumothorax. The cardiac size is mildly prominent. There is no evidence of pleural effusion. The regional osseous structures are unremarkable. Subcutaneous emphysema of the right chest wall again noted. Signed: Katarzyna Jimenez MDReport Verified Date/Time: 03/26/2022 18:31:51 RAD, CHEST, 1 VIEW, NON [id number] 08:42:00downtime order [facility] : 1950 Sex: FFINAL REPORT CHEST ONE VIEW HISTORY: Pneumothorax COMPARISON: 03/25/2022 at 0649 hours FINDINGS: Single portable AP examination of the chest was performed. Right-sided chest tube remains in place. There is a tiny right apical lateral pneumothorax. Subcutaneous emphysema in the right chest and neck is unchanged in appearance. Mildly increased interstitial pulmonary opacities bilaterally are without appreciable change. No pleural effusions are seen. The heart shadow is borderline enlarged. Signed: Dominique Page Verified Date/Time: 03/26/2022 08:42:21 RAD, CHEST, 1 VIEW, NON [id number] 09:24:00downtime order [facility] : 1950 Sex: FFINAL REPORT RAD, CHEST, 1 VIEW, NON DEPT INDICATION: eval ptx, am portable COMPARISON: Prior day's exam TECHNIQUE: Portable frontal view of the chest. FINDINGS: Support Lines and Devices: Stable. Lungs and pleura: Unchanged airspace and pleural opacities. Minimal right-sided pneumothorax. Heart and mediastinum: Stable contours. Stable surgical changes. Additional findings: Subcutaneous emphysema in the right chest wall. IMPRESSION: Right-sided chest tube with minimal right pneumothorax identified. Signed: Hue Smith Verified Date/Time: 03/25/2022 09:24:56 Reading Location: [address] Reading Room RAD, CHEST, 1 VIEW, NON [id number] 09:19:00downtime order [facility] : 1950 Sex: FFINAL REPORT RAD, CHEST, 1 VIEW, NON DEPT INDICATION: eval pneumothorax, am portableCOMPARISON: Prior day's exam TECHNIQUE: Portable frontal view of the chest. FINDINGS: Support Lines and Devices: Stable. Lungs and pleura: Unchanged airspace and pleural opacities. Trace right-sided pneumothorax. Heart and mediastinum: Stable contours. Stable surgical changes. Additional findings: The patient is rotated to the left. IMPRESSION: 1.Trace right-sided pneumothorax with right chest tube in place.2.Extensive subcutaneous emphysema in the right chest wall. Signed: Hue Smith MDReport Verified Date/Time: 03/24/2022 09:19:33 Reading Location: [address] Reading Room RAD, CHEST, 1 VIEW, NON [id number] 08:13:00downtime order [facility] : 1950 Sex: FFINAL REPORT EXAMINATION: RAD, CHEST, 1 VIEW, NON DEPT. INDICATION: 72-year-old female, evaluate pneumothorax. COMPARISON: Chest radiograph dated 03/22/2022. FINDINGS/ IMPRESSION:A right pleural catheter is noted in stable position. Possible trace right apical pneumothorax. Moderate tosevere right subcutaneous emphysema. Cardiac silhouette is borderline enlarged. Mildly coarsened interstitial lung markings. Signed: Dominique Guillen Verified Date/Time: 03/23/2022 08:13:11 Reading Location: [address] Consult Reading Room RAD, CHEST, 1 VIEW, NON [id number] 08:07:00downtime order [facility] : 1950 Sex: FFINAL REPORT RAD, CHEST, 1 VIEW, NON DEPT INDICATION: eval pneumothorax am portable COMPARISON: Prior day's exam FINDINGS: Portable frontal view of the chest. IMPRESSION: Support Lines:Right pleural catheter. Lungs and pleura: Small right apical pneumothorax persists. Lungs are otherwise predominantly clear. Heart and mediastinum: Stable contours. Additional findings: None. Signed: Rubi Bullard Verified Date/Time: 03/22/2022 08:07:12 RAD, CHEST, 1 VIEW, NON [id number] 13:49:00 [facility] : 1950 Sex: FFINAL REPORT RAD, CHEST, 1 VIEW, NON DEPT INDICATION: evaluate pneumothorax COMPARISON: Prior day's exam FINDINGS: Portable frontal view of the chest. IMPRESSION: Support Lines: Stable right chest tube. Lungs and pleura: Stable pulmonary reticular opacities, greater on the right. Stable trace right apical pneumothorax.Heart and mediastinum: Stable contours. Additional findings: Stableright neck and chest wall subcutaneous emphysema. Signed: Henrik Arceo MDReport Verified Date/Time: 03/21/2022 13:49:11 RAD, CHEST, 1 VIEW, NON DEPT 2022-03-20 15:27:00 [facility] 1950 Sex: FFINAL REPORT RAD, CHEST, 1 VIEW, NON DEPT INDICATION: Pneumothorax COMPARISON: Priorday's exam FINDINGS: Portable frontal view of the chest. IMPRESSION: Support Lines: No significant change. Lungs and pleura: Unchanged pulmonary reticular opacities, greater on the right. Overlying subcutaneous emphysema diminishes sensitivity for detection of the right pneumothorax seen on prior examinations but trace right apical pneumothorax suspected without detrimental interval change.Heart and mediastinum: Stable contours. Additional findings: Right chest wall subjacent emphysema is reduced. Signed: Henrik Arceo MDReport Verified Date/Time: 03/20/2022 15:27:20 RAD, CHEST, 1 VIEW, NON DEPT 2022-03-20 13:35:00downtime order [facility] : 1950 Sex: FFINAL REPORT INDICATION: eval pneumothorax - am portable COMPARISON: Prior day's exam FINDINGS: Portable frontal view of the chest. IMPRESSION: Support Lines: No significant change. Lungs and pleura: Stable apical reticular opacities, greater on the right and scattered interstitial thickening. Trace right apical pneumothorax, stable in appearance. Stable pulmonary aeration.Heart and mediastinum: Stable contours. Additional findings: Extensive right chest and neck subcutaneous emphysema is stable. Signed: Henrik Arceo MDReport Verified Date/Time: 03/20/2022 13:35:02 Electronicallysigned by: HENRIK ARCEO MD on 03/20/2022 01:35 PMRAD, CHEST, 1 VIEW, NON [id number] 15:32:00 [facility] : 1950 Sex: FFINAL REPORT RAD, CHEST, 1 VIEW, NON DEPT INDICATION: PATIENT OF SUCTION COMPARISON:Prior day's exam FINDINGS: Portable frontal view of the chest. IMPRESSION: Support Lines: Right-sided chest tube unchanged in appearance. Lungs and pleura: Scattered interstitial thickening and minimalbasilar scarring or atelectasis is stable in appearance. Small right apical pneumothorax not significantly changed allowing for differences in image acquisition angleHeart and mediastinum: Stable contours. Additional findings: Right chest and neck subcutaneous emphysema similar in appearance. Signed: Henrik Arceo [facility] Verified Date/Time: 03/19/2022 15:32:10 RAD, CHEST, 1 VIEW, NON [id number] 13:27:00downtime order [facility] : 1950 Sex: FFINAL REPORT RAD, CHEST, 1 VIEW, NON DEPT INDICATION: eval pneumothorax am portableCOMPARISON: Prior day's exam FINDINGS: Portable frontal view of the chest. IMPRESSION: Support Lines: No significant change. Lungs and pleura: Biapical and bibasilar reticular opacities are stable Trace residual right apical pneumothorax is unchanged. Stable pulmonary aeration.Heart and mediastinum: Stable contours. Additional findings: Right chest wall and neck base subcutaneous emphysema is stable.Signed: Henrik Arceo Verified Date/Time: 03/19/2022 13:27:14 RAD, CHEST, 1 VIEW, NON [id number] 17:24:00 [facility] : 1950 Sex: FFINAL REPORT TECHNIQUE: Frontal view of the chest. INDICATION: r ptx and chest tube.COMPARISON: March 16, 2022. FINDINGS: LINES/TUBES: Right pleural catheter drains unchanged. HEART AND MEDIASTINUM: Cardiomediastinal contour is stable. LUNGS: Stable hazy right basilar opacity. No pulmonary edema. PLEURA: No pleural effusion or pneumothorax is seen. SOFT TISSUES AND BONES: Extensive s ubcutaneous emphysema within the right lateral chest wall and soft tissues of the neck, minimally improved.. IMPRESSION: 1. Minimally improved subcutaneous emphysema within the right lateral chest wallwith right chest tube in place. No definite pneumothorax. Stable hazy right basilar opacity. Signed:Jose Prater MDReport Verified Date/Time: 03/18/2022 17:24:25 RAD, CHEST, 1 VIEW, NON [id number] 14:01:00 [facility] : 1950 Sex: FFINAL REPORT TECHNIQUE: Frontal view of the chest. INDICATION: EVAL PTX. COMPARISON:03/15/2022. FINDINGS: LINES/TUBES: Right pleural catheter drains unchanged. HEART AND MEDIASTINUM: Cardiomediastinal contour is stable. LUNGS: Slight increase in hazy right basilar opacity. No pulmonaryedema. PLEURA: Extensive subcutaneous emphysema within the right lateral chest wall and soft tissuesof the neck. SOFT TISSUES AND BONES: Unremarkable. IMPRESSION: 1. Extensive subcutaneous emphysema within the right lateral chest wall with right chest tube in place. No definite pneumothorax. Slight increase in hazy right basilar opacity. Signed: Gustavo Chávez [facility] Verified Date/Time: 03/16 14:01:11 RAD, CHEST, 1 VIEW, NON [id number] 10:58:00 [facility] 1950 Sex: FFINAL REPORT TECHNIQUE: Frontal view of the chest. INDICATION: PTX. COMPARISON: 03/13/2022. FINDINGS: LINES/TUBES: Right pleural catheter remains present. HEART AND MEDIASTINUM: Cardiomediastinal contour is stable. LUNGS: The lungs are well inflated and clear. No consolidation or pulmonary edema. PLEURA: Small bilateral pleural effusions. No pneumothorax. SOFT TISSUES AND BONES: Prominent subjacent emphysema within the right lateral chest wall and soft tissues of the neck as before IMPRESSION:Extensive changes of emphysema within the right chest wall and soft tissues of the neck, as before. Right pleural catheter without definite pneumothorax. Persistent small left pleural effusion. New small right pleural effusion. Signed: Gustavo Chávez MDReport Verified Date/Time: 03/15/2022 10:58:39 CT, CHEST, WITHOUT [id number] 08:54:00 [facility] : 1950 Sex: FFINAL REPORT CT Chest without contrast History: Evaluate pneumothorax status post chest tube reposition Comparison: CT chest 03/12/2022 Technique: serial axial imaging was performed without intravenous contrast as per departmental protocol. Multiplanar images are reconstructed and reviewed when indicated. This CT examination is performed using one or more of the following dose reduction techniques: Automated exposure control, adjustment of the mA and /or kV according to patient size, and/or use of iterative reconstruction technique. Findings:No mediastinal lymphadenopathy. No definite hilar enlargement. Normal size heart. No pericardial effusion. No thoracic aortic aneurysm. Normal caliber of main pulmonary trunk. Patent central airways. Small bilateral pleural effusions. A small right pneumothorax is noted, decreased in size from the prior examination. The right chest tube now terminates within the posterior aspect of the right apex. Small amount of pneumomediastinum and extensive subcutaneous emphysema within the chest wall persist. Underlying pulmonary emphysema is noted. Persistent consolidation within the dependent left lower lobe, likely atelectasis. Moderate-sized hiatalhernia. Extensive multifocal thoracic compression deformities, without significant interval change. Impression: 1. Small right pneumothorax, decreased in size from prior examination.2. The right chest tube now terminates within the posterior aspect of the right apex.3. Small amount of pneumomediastinum, small bilateral pleural effusions, and extensive subcutaneous emphysema within the chest wall appear unchanged.4. Underlying pulmonary emphysema. Signed: Marv Palmer MDReport Verified Date/Time: 03/14/2022 08:54:40 Reading Location: [facility] Diagnostic Imaging Reading Room - [place] [address] RAD, CHEST, 1 VIEW, NON [id number] 18:07:00 [facility] : 1950 Sex: FFINAL REPORT TECHNIQUE: Frontal view of the chest. INDICATION: S/P CHEST TUBE REMOVAL. COMPARISON: 03/13/2022 at 12:24 PM. FINDINGS: LINES/TUBES: Right apical chest tube has been repositioned with tip now projected over the right lung apex. HEART AND MEDIASTINUM: Cardiomediastinal contour is stable. Patient is rotated on this examination. LUNGS: No pulmonary edema or focal consolidative process. PLEURA: Small left pleural effusion. No definite pneumothorax. Extensive subcutaneous emphysema within the chest wall and soft tissues of the neck, right greater than left. SOFT TISSUES AND BONES: Unremarkable. IMPRESSION:Repositioning of right chest tube with tip now projected at the right lung apex. No definite pneumothorax. Extensive subcutaneous emphysema, as before. Persistent small left pleural effusion. Signed: Gustavo Chávez Verified Date/Time: 03/13/2022 18:07:38 RAD, CHEST, 1 VIEW, NON DEPT 2022-03-13 13:42:00 [facility] : 1950 Sex: FFINAL REPORT CLINICAL HISTORY: SOB TECHNIQUE: 1 view of the chest. COMPARISON: 03/12/2022 IMPRESSION: Right chest tube again seen. Severe right chest wall subcutaneous emphysema again noted with left supraclavicular involvement. Small right apical pneumothorax increased. Left lung base opacity and a small left pleural effusion unchanged. Trace right effusion unchanged. No cardiomegaly.Signed: Trent Mcdonough Verified Date/Time: 03/13/2022 13:42:55 Reading Location: [address] Reading Room RAD, CHEST, 1 VIEW, NON [id number] 15:21:00 [facility] : 1950 Sex: FFINAL REPORT CLINICAL HISTORY: new sudden chest tightness TECHNIQUE: 1 view of the chest. COMPARISON: 03/12/2022 IMPRESSION: A right chest tube is again seen. Severe right chest wall subcutaneous emphysema is again noted with a small right pneumothorax. The lung dumont are otherwise unchanged since earlier today including small left and trace right effusions. The cardiomediastinal silhouette is magnified by technique. Signed: Trent Mcdonougheport Verified Date/Time: 03/12/2022 15:21:00 Reading Location: [address] Reading [address] CT, CHEST, WITHOUT [id number] 15:13:00pt with Knemothorax and sub emphysema. 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 FINDINGS: Lack of intravenous contrast compromises evaluation of perfusion and for isodense lesions. Lungs: Emphysema. Mild dependent left lower lobe atelectasis. A streaky right apical density which is likely related to pleuroparenchymal scarring or atelectasisCentral airways: Patent.Pleura: A right-sided chest tube. A moderate-sized right hydropneumothorax which is mostly gas and a small left pleural effusion..Lymph nodes: UnremarkableHeart and mediastinum: Pneumomediastinum. Severe coronary artery calcifications. Mild atherosclerosis of the thoracic aorta and branch ve ssels.Thyroid gland: Visualized portion unremarkableEsophagus: A moderate-sized sliding hiatal herniaIncluded upper abdomen: Unremarkable.Chest wall: Extensive soft tissue gas throughout the right chest wall and to lesser extent the left chest wall.Bones: Compression deformities involving every thoracic vertebral body level except T2 and possibly T5 and T12, with up to moderate height loss. Compression deformities of L1 and L2 with moderate height loss and mild resulting spinal canal narrowing. Nondisplaced likely chronic left-sided rib fractures, third through 12th rib. IMPRESSION: 1.A moderate-sized right hydropneumothorax with a right-sided chest tube. 2.Small left pleural effusion. 3.Extensivesoft tissue gas and small pneumomediastinum. 4.Compression deformities involving every thoracic vertebral body level except T2 and possibly T5 and T12, with up to moderate height loss. Compression deformities in the upper lumbar spine with moderate height loss and mild resulting spinal canal narrowing. Age-indeterminate. Signed: Eugene Marhs MDRepprogress west hospital Verified Date/Time: 03/12/2022 15:13:01 RAD, CHEST, 1 VIEW, NON [id number] 09:28:00 [facility] 1950 Sex: FFINAL REPORT CLINICAL HISTORY: Hemothorax Follow up AM portable to be done 03/12/22 TECHNIQUE: 1 view of the chest. COMPARISON: 03/11/2022 IMPRESSION: Severe right chest wall subcutaneousemphysema is again seen. The small right pneumothorax appears decreased. Right chest tube is again seen. Left lung base pleural parenchymal opacity is unchanged. The cardiomediastinal silhouette is magnified by technique. Signed: Trent Mcdonough Verified Date/Time: 03/12/2022 09:28:54 Reading Location: [address] Reading Room RAD, CHEST, 1 VIEW, NON [id number] 20:25:00 [facility] : 1950 Sex: FFINAL REPORT RAD, CHEST, 1 VIEW, NON DEPT INDICATION: pneumothorax COMPARISON: Priorday's exam FINDINGS: Portable frontal view of the chest. IMPRESSION: Support Lines: Stable right chest tube Lungs and pleura: Unchanged small bilateral effusions and scattered bilateral atelectasis. Unchanged trace right apical pneumothorax. Heart and mediastinum: Stable contours. Additional findings:Unchanged extensive soft tissue emphysema of the right chest. Signed: Navdeep Jamison VerifiedDate/Time: 03/11/2022 20:25:10 RAD, CHEST, 1 VIEW, NON DEPT 2022-03-11 12:49:00 [facility] : 1950 Sex: FFINAL REPORT CLINICAL HISTORY: hemothorax follow up TECHNIQUE: 1 view of the chest. COMPARISON: 03/11/2022 IMPRESSION: The medial right upper chest tube is unchanged. Severe right chest wall subcutaneous emphysema is again seen. A small right pneumothorax is again noted. Left basilar pleural parenchymal opacity is unchanged. Patchy right lung base airspace opacity and a trace right effusion are noted. There is no cardiomegaly. Signed: Trent Mcdonough MDReport Verified Date/Time: 03/11/2022 12:49:10 Reading Location: [address] Reading Room RAD, CHEST, 1 VIEW, NON [id number] 04:50:00 [facility] : 1950 Sex: FFINAL REPORT RAD, CHEST, 1 VIEW, NON DEPT INDICATION: PNEUMOTHORAX AM PORT TO BE DONE 03/11/2022 COMPARISON: Prior day's exam FINDINGS: Portable frontal view of the chest. IMPRESSION: Support Lines: Stable right chest tube. Lungs and pleura: Unchanged bilateral parenchymal opacities given variation in image acquisition. No pneumothorax. Heart and mediastinum: Stable contours. Additional findings: Unchanged extensive soft tissue emphysema on the right. Signed: Navdeep Jamison MDReport Verified Date/Time: 03/11/2022 04:50:39 U/S, ABDOMINAL, [id number] 00:56:00Abdomen limited area? Add comment if clarification is needed.->Liver Reason for exam:->transaminitis [facility] : 1950 Sex: FFINAL REPORT TECHNIQUE: Grayscale ultrasound of the right abdomen. INDICATION: transaminitis. COMPARISON: None. FINDINGS: MIDLINE VASCULATURE: The visualized inferior vena cava is patent. Portal vein is patent. The maximum visualized aortic diameter is 2.4 cm. LIVER: Smooth liver contour. No focal lesions. The main portal vein measures 0.7 cm. BILIARY:Gallbladder: No gallstones or sludge. No gallbladder wall thickening, pericholecystic fluid, or distention. Negative sonographic Black sign.Common bile duct measures 0.5 cm, within normal limits. No intrahepatic biliary ductal dilatation. PANCREAS: Incompletely visualized due to overlying bowel gas. PERITONEUM: No free fluid. RIGHT KIDNEY: Not seen secondary to bowel gas and overlying bandages. IMPRESSION:Right kidney not seen secondary to overlying bandages and bowel gas. Otherwise, unremarkable ultrasound of the right upper quadrant. Signed: Navdeep Jamison Verified Date/Time: 03/10/2022 00:56:46 RAD, CHEST, 1 VIEW, NON [id number] 23:31:00[facility] : 1950 Sex: FFINAL REPORT INDICATION: Chest pain PROCEDURE: RAD, CHEST, 1 VIEW, NON DEPT FINDINGS:There is a right-sided chest tube in stable position. No pneumothorax detected. There is mild basilar atelectasis. A small left base effusion is present. Accounting for differences in projection this is probably stable. The heart and mediastinum are unremarkable. There is extensive subcutaneous emphysema over the right chest which appears increased. CONCLUSION:Increasing subcutaneous emphysema.Bibasilar atelectasis and small left base effusion, approximately stable. Signed: Melodie Begum Verified Date/Time: 03/09/2022 23:31:07 [id number] 20:29:49 Test Item Value Reference Range Interpretation Comments PARTIAL THROMBOPLASTIN TIME 60.3 seconds 22.5-36.0 H (BEAKER) (test code = 760) HIGH SENSITIVITY TROPONIN [id number] 18:55:40 Test Item Value Reference Range Interpretation Comments HIGH SENSITIVITY 00124 pg/ml See_Comment HH [Automated message] TROPONIN I (test code The sy stem which = [id number]) generated this result transmitted ref erence range: <=17. Th e reference range was not used to int erpret this result as normal/abnormal . Typing Teacher ID Juan FANG LThe GERMAN TUTOR STAT High Sensitivity Troponin-I results should be used in conjunction with other diagnostic information such as ECG, clinical observations and information, and patient symptoms to aid in the diagnosis of PA.Typing Teacher ID - LEONCIO L2D Echo W/Doppler(CW/PW/Color)2022-03-09 17:54:15Ejection FractionSLEH ECHO HEARTLAB MKCKESSON CPAKaiser [facility]no Medical CenterAPTT2022-10-02 13:26:41 Test Item Value Reference Range Interpretation Comments PARTIAL THROMBOPLASTIN TIME 47.1 seconds 22.5-36.0 H (BEAKER) (test code = 760) HIGH SENSITIVITY TROPONIN [id number] 13:06:27 Test Item Value Reference Range Interpretation Comments HIGH SENSITIVITY 78732 pg/ml See_Comment HH [Automated message] TROPONIN I (test code The sy stem which = [id number]) generated this result transmitted ref erence range: <=17. Th e reference range was not used to int erpret this result as normal/abnormal . Typing Teacher ID Juan ALONSO DTmore GERMAN TUTOR STAT High Sensitivity Troponin-I results should be used in conjunction with other diagnostic information such as ECG, clinical observations and information, and patient symptoms to aid in the diagnosis of PA.Typing Teacher ID Juan ALONSO DHEPATITIS PANEL, [id number] 11:49:42 Test Item Value Reference Range Interpretation Comments HEPATITIS A IGM ANTIBODY (BEAKER) Nonreactive Nonreactive (test code = 498) HEPATITIS B CORE IGM ANTIBODY Nonreactive Nonreactive (BEAKER) (test code = 645) HEPATITIS C ANTIBODY (BEAKER) Nonreactive Nonreactive (test code = 367) HEPATITIS B SURFACE ANTIGEN (2) Nonreactive Nonreactive (BEAKER) (test code = 2585) Typing Teacher ID Juan ALONSO DLIPID [id number] 11:01:28 Test Item Value Reference Range Interpretation Comments TRIGLYCERIDES (BEAKER) 40 mg/dL Speci men slightly (test code = 540) hemolyzed CHOLESTEROL (BEAKER) 146 mg/dL Specime n slightly (test code = 631) hemolyzed HDL CHOLESTEROL (BEAKER) 55 mg/dL (test code = 976) LDL CHOLESTEROL 83 mg/dL CALCULATED (AIS) (test code = 633) Triglyceride Reference Range: Low Risk <150 Borderline 150-199 High Risk 200- 499 Very High Risk >=500Cholesterol Reference Range: Low Risk <200 Borderline 200-239 High Risk >240HDL Cholesterol Reference Range: Low Risk >=60 High Risk <40LDL Cholesterol Reference Range: Optimal <100 Near Optimal 100-129 Borderline 130-159 High 160-189 Very High >=190 Typing Teacher ID - CELESTE DPOCT-GLUCOSE [id number] 07:36:41 Test Item Value Reference Range Interpretation Comments POC-GLUCOSE METER 123 mg/dL 70-110 H : TESTED A T [facility] 6720 (AIS) (test code = CAMILA KHAN SD, 1538) [address]: Typing Teacher/Techni ethel ID = [id number] for Catherine Damian RAD, CHEST, 1 VIEW, NON [id number] 07:05:00Reason for exam:->f/u R PTXShould this be performed at the bedside?->Yes [facility] : 1950 Sex: FFINAL REPORT RAD, CHEST, 1 VIEW, NON DEPT INDICATION: f/u R PTX COMPARISON: Prior day's exam FINDINGS: Portable frontal view of the chest. IMPRESSION: Support Lines: Right chest tube. Lungs and pleura: Hazy bilateral airspace opacities, small left effusion and retrocardiac atelectasis are unchanged. No significant pneumothorax. Heart and mediastinum: Stable contours. Stable surgical changes. Additional findings: None. Signed: Rubi Cerda MDRepcory Verified Date/Time: 03/09/2022 07:05:49 [id number] 06:21:45 Test Item Value Reference Range Interpretation Comments FERRITIN (BEAKER) (test code = 78.90 ng/mL 5.00-275.00 361) Typing Teacher ID - PIKULDEEP LVITAMIN [id number] 06:21:44 Test Item Value Reference Range Interpretation Comments VITAMIN B12 (BEAKER) (test code = 1093 pg/mL 213-816 H 774) Typing Teacher ID - PIKULDEEP LHIGH SENSITIVITY TROPONIN [id number] 05:02:11 Test Item Value Reference Range Interpretation Comments HIGH SENSITIVITY 88018 pg/ml See_Comment HH [Automated message] TROPONIN I (test code The sy stem which = [id number]) generated this result transmitted ref erence range: <=17. Th e reference range was not used to int erpret this result as normal/abnormal . Typing Teacher ID - IFEANYIKULDEEP LThe GERMAN TUTOR STAT High Sensitivity Troponin-I results should be used in conjunction with other diagnostic information such as ECG, clinical observations and information, and patient symptoms to aid in the diagnosis of PA.Typing Teacher ID - PIAYA LCOMPREHENSIVE METABOLIC [id number] 04:16:10 Test Item Value Reference Range Interpretation Comments TOTAL PROTEIN 6.3 gm/dL 6.0-8.3 (BEAKER) (test code = 770) ALBUMIN (BEAKER) 3.5 g/dL 3.5-5.0 (test code = 1145) ALKALINE 95 U/L 40-150 PHOSPHATASE (BEAKER) (test code = 346) BILIRUBIN TOTAL 0.2 mg/dL 0.2-1.2 (BEAKER) (test code = 377) SODIUM (BEAKER) 139 meq/L 136-145 (test code = 381) POTASSIUM (BEAKER) 4.4 meq/L 3.5-5.1 (test code = 379) CHLORIDE (BEAKER) 102 meq/L 98-107 (test code = 382) CO2 (BEAKER) (test 24 meq/L 22-29 code = 355) BLOOD UREA 23 mg/dL 7-21 H NITROGEN (BEAKER) (test code = 354) CREATININE 0.72 mg/dL 0.57-1.25 (BEAKER) (test code = 358) GLUCOSE RANDOM 101 mg/dL 70-105 (BEAKER) (test code = 652) CALCIUM (BEAKER) 9.1 mg/dL 8.4-10.2 (test code = 697) AST (SGOT) 135 U/L 5-34 H (BEAKER) (test code = 353) ALT (SGPT) 59 U/L 6-55 H (BEAKER) (test code = 347) EGFR (BEAKER) 88 Interpretatio n of eGFR (test code = 1092) mL/min/1.[address] age Description sq m Result G1 Nita l or high >=90 G2 Mildly decreased 60-89 G3a Mildl y to moderately 45-5 9 G3b Moderately to s everely 30-44 G4 Severl y decreased 15-29 G5 Kidney failure <15Reported eGF R is based on the CKD-EPI 2020 equation that d oes not use a race coefficientEsti mated GFR is not as accur ate as Creatinine Meghana dick in predicting glom erular filtration rate . Estimated GFR is not appl icable for dialysis patien ts Typing Teacher ID Juan FANG [id number] 04:16:10 Test Item Value Reference Range Interpretation Comments MAGNESIUM (BEAKER) (test code = 1.8 mg/dL 1.6-2.6 627) Typing Teacher ID Juan FANG [id number] 04:14:40 Test Item Value Reference Range Interpretation Comments PARTIAL THROMBOPLASTIN TIME 177.0 seconds 22.5-36.0 HH (BEAKER) (test code = 760) B-TYPE NATRIURETIC FACTOR (BNP)2022-03-09 04:01:03 Test Item Value Reference Range Interpretation Comments B-TYPE NATRIURETIC PEPTIDE (BEAKER) 875 pg/mL 0-100 H (test code = 700) Typing Teacher ID Juan FANG LCBC W/PLT COUNT & AUTO [id number] 03:53:57 Test Item Value Reference Range Interpretation Comments WHITE BLOOD CELL COUNT (BEAKER) 9.9 K/ L 3.5-10.5 (test code = 775) RED BLOOD CELL COUNT (BEAKER) 4.29 M/ L 3.93-5.22 (test code = 761) HEMOGLOBIN (BEAKER) (test code = 12.9 GM/DL 11.2-15.7 410) HEMATOCRIT (BEAKER) (test code = 39.7 % 34.1-44.9 411) MEAN CORPUSCULAR VOLUME (BEAKER) 93 fL 79-95 (test code = 753) MEAN CORPUSCULAR HEMOGLOBIN 30.1 pg 25.6-32.2 (BEAKER) (test code = 751) MEAN CORPUSCULAR HEMOGLOBIN CONC 32.5 GM/DL 32.2-35.5 (BEAKER) (test code = 752) RED CELL DISTRIBUTION WIDTH 14.7 % 11.7-14.4 H (BEAKER) (test code = 412) PLATELET COUNT (BEAKER) (test 180 K/CU MM 150-450 code = 756) MEAN PLATELET VOLUME (BEAKER) 10.1 fL 9.4-12.3 (test code = 754) NUCLEATED RED BLOOD CELLS 0 /100 WBC 0-0 (BEAKER) (test code = 413) NEUTROPHILS RELATIVE PERCENT 91 % (BEAKER) (test code = 429) LYMPHOCYTES RELATIVE PERCENT 6 % (BEAKER) (test code = 430) MONOCYTES RELATIVE PERCENT 3 % (BEAKER) (test code = 431) EOSINOPHILS RELATIVE PERCENT 0 % (BEAKER) (test code = 432) BASOPHILS RELATIVE PERCENT 0 % (BEAKER) (test code = 437) NEUTROPHILS ABSOLUTE COUNT 8.97 K/ L 1.56-6.13 H (BEAKER) (test code = 670) LYMPHOCYTES ABSOLUTE COUNT 0.54 K/ L 1.18-3.74 L (BEAKER) (test code = 414) MONOCYTES ABSOLUTE COUNT (BEAKER) 0.34 K/ L 0.24-0.36 (test code = 415) EOSINOPHILS ABSOLUTE COUNT 0.00 K/ L 0.04-0.36 L (BEAKER) (test code = 416) BASOPHILS ABSOLUTE COUNT (BEAKER) 0.02 K/ L 0.01-0.08 (test code = 417) IMMATURE GRANULOCYTES-RELATIVE 0.20 % 0.00-1.00 PERCENT (BEAKER) (test code = 2801) RAD, CHEST, 1 VIEW, NON [id number] 02:56:00Reason for exam:- >pneumothoraxShould this be performed at the bedside?->Yes [facility] 1950 Sex: FFINAL REPORT RAD, CHEST, 1 VIEW, NON DEPT INDICATION: pneumothorax COMPARISON: 12/17/2020 FINDINGS: Portable frontal view of the chest. IMPRESSION: Patient is rotated to the left. Support Lines: Right-sided chest tube tip overlies the mid mediastinum with position possibly exaggerated by patient rotation. Correlate with chest tube function. Repositioning may be in order. Lungs and pleura: No focal airspace consolidation or sizable effusion. There is a small right apical pneumothorax. Heart and mediastinum: Unremarkable contours. Additional findings: Gas is present within the right chest wall.. Signed: Navdeep Jamisonort Verified Date/Time: 03/09/2022 02:56:56 IRON, TIBC, % SAT. (WITHOUT FERRITIN) 2022-03-09 02:13:25 Test Item Value Reference Range Interpretation Comments IRON (BEAKER) (test code = 547) 49.0 ug/dL 40.0-160.0 TOTAL IRON BINDING CAPACITY 285 ug/dL 250-450 (BEAKER) (test code = 769) IRON % SATURATION (2) (BEAKER) 17 % 20-55 L (test code = 2590) Typing Teacher ID - PIAYA [id number] 01:11:36 Test Item Value Reference Range Interpretation Comments PARTIAL THROMBOPLASTIN TIME 28.0 seconds 22.5-36.0 (BEAKER) (test code = 760) PROTHROMBIN TIME/[id number] 01:11:00 Test Item Value Reference Range Interpretation Comments PROTIME (BEAKER) 15.2 seconds 11.9-14.2 H (test code = 759) INR (BEAKER) (test 1.23 See_Comment [Automat ed message] code = 370) The system [employer] generated this result transmitted ref erence range: <=5.90. The reference range was not used to int erpret this result as normal/abnormal . RECOMMENDED COUMADIN/WARFARIN INR THERAPY RANGESSTANDARD DOSE: 2.0 - 3.0 Includes: PROPHYLAXIS for venous thrombosis, systemic embolization; TREATMENT for venous thrombosis and/or pulmonary embolus.HIGH RISK: Target INR is 2.5-3.5 for patients with mechanical heart valves.HIGH SENSITIVITY TROPONIN [id number] 00:51:17 Test Item Value Reference Range Interpretation Comments HIGH SENSITIVITY 8303 pg/ml See_Comment HH [Automated message] TROPONIN I (test code The sy stem which = [id number]) generated this result transmitted ref erence range: <=17. Th e reference range was not used to int erpret this result as normal/abnormal . Typing Teacher ID - LEONCIO LThe GERMAN TUTOR STAT High Sensitivity Troponin-I results should be used in conjunction with other diagnostic information such as ECG, clinical observations and information, and patient symptoms to aid in the diagnosis of PA.Typing Teacher ID - PIAYA LCOMPREHENSIVE METABOLIC [id number] 00:45:53 Test Item Value Reference Range Interpretation Comments TOTAL PROTEIN 6.7 gm/dL 6.0-8.3 Specimen sligh tly (BEAKER) (test hemolyzed code = 770) ALBUMIN (BEAKER) 3.6 g/dL 3.5-5.0 Specimen sl ightly (test code = 1145) hemolyzed ALKALINE 100 U/L 40-150 PHOSPHATASE (BEAKER) (test code = 346) BILIRUBIN TOTAL 0.1 mg/dL 0.2-1.2 L Specimen sli ghtly (BEAKER) (test hemolyzed code = 377) SODIUM (BEAKER) 140 meq/L 136-145 (test code = 381) POTASSIUM (BEAKER) 4.9 meq/L 3.5-5.1 Specimen slightly (test code = 379) hemolyzed CHLORIDE (BEAKER) 102 meq/L 98-107 (test code = 382) CO2 (BEAKER) (test 24 meq/L 22-29 code = 355) BLOOD UREA 23 mg/dL 7-21 H NITROGEN (BEAKER) (test code = 354) CREATININE 0.72 mg/dL 0.57-1.25 Specimen slight ly (BEAKER) (test hemolyzed code = 358) GLUCOSE RANDOM 105 mg/dL 70-105 (BEAKER) (test code = 652) CALCIUM (BEAKER) 9.2 mg/dL 8.4-10.2 (test code = 697) AST (SGOT) 119 U/L 5-34 H Specimen slight ly (BEAKER) (test hemolyzed code = 353) ALT (SGPT) 63 U/L 6-55 H Specimen slight ly (BEAKER) (test hemolyzed code = 347) EGFR (BEAKER) 88 Interpretatio n of eGFR (test code = 1092) mL/min/1.[address] age Description sq m Result G1 Nita l or high >=90 G2 Mildly decreased 60-89 G3a Mildl y to moderately 45-5 9 G3b Moderately to s everely 30-44 G4 Severl y decreased 15-29 G5 Kidney failure <15Reported eGF R is based on the CKD-EPI 2020 equation that d oes not use a race coefficientEsti mated GFR is not as accur ate as Creatinine Meghana jennings in predicting glom erular filtration rate . Estimated GFR is not appl icable for dialysis patien ts Typing Teacher ID - LEONCIO [id number] 00:45:52 Test Item Value Reference Range Interpretation Comments MAGNESIUM (BEAKER) 1.9 mg/dL 1.6-2.6 Specimen slightly (test code = 627) hemolyzed Typing Teacher ID - DENISEUELOperator ID - LEONCIO LPOCT-GLUCOSE [id number] 00:33:58 Test Item Value Reference Range Interpretation Comments POC-GLUCOSE METER 102 mg/dL 70-110 : TESTED A T [facility] 6720 (BEAKER) (test code = [place], 1538) 39[address]: Typing Teacher/Techni ethel ID = [id number] for Valdez lay Shahana CBC W/PLT COUNT & AUTO [id number] 00:25:04 Test Item Value Reference Range Interpretation Comments WHITE BLOOD CELL COUNT (BEAKER) 9.9 K/ L 3.5-10.5 (test code = 775) RED BLOOD CELL COUNT (BEAKER) 4.33 M/ L 3.93-5.22 (test code = 761) HEMOGLOBIN (BEAKER) (test code = 13.0 GM/DL 11.2-15.7 410) HEMATOCRIT (BEAKER) (test code = 39.9 % 34.1-44.9 411) MEAN CORPUSCULAR VOLUME (BEAKER) 92 fL 79-95 (test code = 753) MEAN CORPUSCULAR HEMOGLOBIN 30.0 pg 25.6-32.2 (BEAKER) (test code = 751) MEAN CORPUSCULAR HEMOGLOBIN CONC 32.6 GM/DL 32.2-35.5 (BEAKER) (test code = 752) RED CELL DISTRIBUTION WIDTH 14.7 % 11.7-14.4 H (BEAKER) (test code = 412) PLATELET COUNT (BEAKER) (test 188 K/CU MM 150-450 code = 756) MEAN PLATELET VOLUME (BEAKER) 9.9 fL 9.4-12.3 (test code = 754) NUCLEATED RED BLOOD CELLS 0 /100 WBC 0-0 (BEAKER) (test code = 413) NEUTROPHILS RELATIVE PERCENT 89 % (BEAKER) (test code = 429) LYMPHOCYTES RELATIVE PERCENT 5 % (BEAKER) (test code = 430) MONOCYTES RELATIVE PERCENT 5 % (BEAKER) (test code = 431) EOSINOPHILS RELATIVE PERCENT 0 % (BEAKER) (test code = 432) BASOPHILS RELATIVE PERCENT 0 % (BEAKER) (test code = 437) NEUTROPHILS ABSOLUTE COUNT 8.82 K/ L 1.56-6.13 H (BEAKER) (test code = 670) LYMPHOCYTES ABSOLUTE COUNT 0.48 K/ L 1.18-3.74 L (BEAKER) (test code = 414) MONOCYTES ABSOLUTE COUNT (BEAKER) 0.54 K/ L 0.24-0.36 H (test code = 415) EOSINOPHILS ABSOLUTE COUNT 0.01 K/ L 0.04-0.36 L (BEAKER) (test code = 416) BASOPHILS ABSOLUTE COUNT (BEAKER) 0.02 K/ L 0.01-0.08 (test code = 417) IMMATURE GRANULOCYTES-RELATIVE 0.50 % 0.00-1.00 PERCENT (BEAKER) (test code = 2801) LACTIC ACID, [id number] 00:22:31 Test Item Value Reference Range Interpretation Comments LACTATE BLOOD VENOUS 1.06 mmol/L 0.50-2.20 Specime n slightly (2) (BEAKER) (test hemolyzed code = 2872) Typing Teacher ID - VALERIANO POWERS, [id number] 23:52:32 Test Item Value Reference Range Interpretation Comments PH VENOUS (BEAKER) (test code = 7.31 7.32-7.42 L 701) PCO2 VENOUS (BEAKER) (test code = 66 mm Hg 41-51 H 755) PO2 VENOUS (BEAKER) (test code = 50 mm Hg 25-40 H 702) O2 SATURATION VENOUS (BEAKER) 79.3 % 40.0-70.0 H (test code = 703) HCO3 VENOUS (BEAKER) (test code = 32 mmol/L 21-29 H 705) BASE EXCESS VENOUS (BEAKER) (test 4.4 mmol/L -2.0-3.0 H code = 704) PATIENT TEMPERATURE (BEAKER) (test 37.7 code = 1818) FIO2 (BEAKER) (test code = 1819) 28.0 POCT-GLUCOSE [id number] 12:15:00 Test Item Value Reference Range Interpretation Comments POC-GLUCOSE METER 122 mg/dL 70-110 H : TESTED A T [facility] 6720 (BEAKER) (test code = [facility], 1538) 63175: Typing Teacher/Techni ethel ID = [id number] for OR BALAJI BESS POCT-GLUCOSE [id number] 07:43:00 Test Item Value Reference Range Interpretation Comments POC-GLUCOSE METER 81 mg/dL 70-110 : TESTED A T [facility] 6720 (BEAKER) (test code = [facility], 1538) 43596: Typing Teacher/Techni ethel ID = [id number] for ORPH EY BALAJI COMPREHENSIVE METABOLIC [id number] 07:11:00 Test Item Value Reference Range Interpretation [...] S NOT APPLICABLE FOR DIALYSIS PATIEN TS. Typing Teacher ID - KEVIN [id number] 07:11:00 Test Item Value Reference Range Interpretation Comments MAGNESIUM (BEAKER) (test code = 2.3 mg/dL 1.6-2.6 627) Typing Teacher ID - KEVIN [id number] 07:11:00 Test Item Value Reference Range Interpretation Comments PHOSPHORUS (BEAKER) (test code = 3.8 mg/dL 2.3-4.7 604) Typing Teacher ID - KEVIN MCALCIUM, [id number] 06:48:00 Test Item Value Reference Range Interpretation Comments CALCIUM IONIZED (BEAKER) (test 1.25 mmol/L 1.12-1.27 code = 698) PH, BLOOD (BEAKER) (test code = 7.29 1810) CBC W/PLT COUNT & AUTO [id number] 06:45:00 Test Item Value Reference Range Interpretation [...] PERCENT (BEAKER) (test code = 2801) POCT-GLUCOSE [id number] 21:16:00 Test Item Value Reference Range Interpretation Comments POC-GLUCOSE METER 103 mg/dL 70-110 : TESTED A T [facility] 6720 (BEAKER) (test code = [facility], 153) 44292: Typing Teacher/Techni ethel ID = [id number] for GIL PIERRE POCT-GLUCOSE [id number] 17:06:00 Test Item Value Reference Range Interpretation Comments POC-GLUCOSE METER 137 mg/dL 70-110 H : TESTED A T [facility] 6720 (BEAKER) (test code = [facility], 1538) 48285: Typing Teacher/Techni ethel ID = [id number] for OR PHEY, BALAJI POCT-GLUCOSE [id number] 12:31:00 Test Item Value Reference Range Interpretation Comments POC-GLUCOSE METER 121 mg/dL 70-110 H : TESTED A T [facility] 6720 (BEAKER) (test code = [facility], 153) 23549: Typing Teacher/Techni ethel ID = [id number] for OR PHEY, BALAJI POCT-GLUCOSE [id number] 08:27:00 Test Item Value Reference Range Interpretation Comments POC-GLUCOSE METER 81 mg/dL 70-110 : TESTED A T [facility] 6720 (BEAKER) (test code = [facility], 153) 68805: Typing Teacher/Techni ethel ID = [id number] for ORPH EY BALAJI COMPREHENSIVE METABOLIC [id number] 07:14:00 Test Item Value Reference Range Interpretation [...] S NOT APPLICABLE FOR DIALYSIS PATIEN TS. Typing Teacher ID - PIAYA [id number] 07:14:00 Test Item Value Reference Range Interpretation Comments MAGNESIUM (BEAKER) (test code = 2.0 mg/dL 1.6-2.6 627) Typing Teacher ID - PIKULDEEP [id number] 07:14:00 Test Item Value Reference Range Interpretation Comments PHOSPHORUS (BEAKER) (test code = 3.1 mg/dL 2.3-4.7 604) Typing Teacher ID - PIAYA LCALCIUM, [id number] 06:30:00 Test Item Value Reference Range Interpretation Comments CALCIUM IONIZED (BEAKER) (test 1.22 mmol/L 1.12-1.27 code = 698) PH, BLOOD (BEAKER) (test code = 7.32 1810) CBC W/PLT COUNT & AUTO [id number] 06:18:00 Test Item Value Reference Range Interpretation [...] PERCENT (BEAKER) (test code = 2801) POCT-GLUCOSE [id number] 21:58:00 Test Item Value Reference Range Interpretation Comments POC-GLUCOSE METER 206 mg/dL 70-110 H : TESTED A T [facility] 6720 (BEAKER) (test code = [place], 1538) 96653: Typing Teacher/Techni ethel ID = [id number] for Re yes, Sairy POCT-GLUCOSE [id number] 17:15:00 Test Item Value Reference Range Interpretation Comments POC-GLUCOSE METER 114 mg/dL 70-110 H : TESTED A T [facility] 6720 (BEAKER) (test code = [facility], 1538) 60005: Typing Teacher/Techni ethel ID = [id number] for BEATRIZ NEWMAN, ULISES POCT-GLUCOSE [id number] 12:21:00 Test Item Value Reference Range Interpretation Comments POC-GLUCOSE METER 135 mg/dL 70-110 H : TESTED A T [facility] 6720 (BEAKER) (test code = [facility], 1538) 35945: Typing Teacher/Techni ethel ID = [id number] for BEATRIZ HN, ULISES POCT-GLUCOSE [id number] 07:54:00 Test Item Value Reference Range Interpretation Comments POC-GLUCOSE METER 124 mg/dL 70-110 H : TESTED A T [facility] 6720 ([facility]) (test code = [facility], 1538) 34840: Typing Teacher/Techni ethel ID = [id number] for BEATRIZ HN, ULISES RAD, CHEST, 1 VIEW, NON [id number] 07:15:00Reason for exam:->eval PNXShould this be performed at the bedside?->Yes [facility] 1950 Sex: FFINAL REPORT RAD, CHEST, 1 VIEW, NON DEPT INDICATION: eval PNX COMPARISON: Prior day's exam FINDINGS: Portable frontal view of the chest. IMPRESSION: Support Lines: Right thoracostomy tube has been removed. Lungs and pleura: No consolidation. Trace left effusion. No pneumothorax.Heart and mediastinum: Stable contours. Additional findings: None. Signed: JR Cristina, [place] Verified Date/Time: 12/17/2020 07:15:57 Reading Location: [facility] Radiology Reading Room CALCIUM, [id number] 06:45:00 Test Item Value Reference Range Interpretation Comments CALCIUM IONIZED (BEAKER) (test 1.23 mmol/L 1.12-1.27 code = 698) PH, BLOOD (BEAKER) (test code = 7.39 1810) COMPREHENSIVE METABOLIC [id number] 06:36:00 Test Item Value Reference Range Interpretation [...] S NOT APPLICABLE FOR DIALYSIS PATIEN TS. Typing Teacher ID - LATA [id number] 06:36:00 Test Item Value Reference Range Interpretation Comments MAGNESIUM (BEAKER) (test code = 2.0 mg/dL 1.6-2.6 627) Typing Teacher ID - LATA [id number] 06:36:00 Test Item Value Reference Range Interpretation Comments PHOSPHORUS (BEAKER) (test code = 2.6 mg/dL 2.3-4.7 604) Typing Teacher ID - LATA WCBC W/PLT COUNT & AUTO [id number] 05:59:00 Test Item Value Reference Range Interpretation [...] PERCENT (BEAKER) (test code = 2801) POCT-GLUCOSE [id number] 21:05:00 Test Item Value Reference Range Interpretation Comments POC-GLUCOSE METER 134 mg/dL 70-110 H : TESTED A T [facility] 6720 (BEAKER) (test code = [facility], 153) 12044: Typing Teacher/Techni ethel ID = [id number] for Co rtez, [place] POCT-GLUCOSE [id number] 17:20:00 Test Item Value Reference Range Interpretation Comments POC-GLUCOSE METER 131 mg/dL 70-110 H : TESTED A T [facility] 6720 (BEAKER) (test code = [facility], 1538) 66057: Typing Teacher/Techni ethel ID = [id number] for BEATRIZ HN, ULISES POCT-GLUCOSE [id number] 12:22:00 Test Item Value Reference Range Interpretation Comments POC-GLUCOSE METER 159 mg/dL 70-110 H : TESTED A T [facility] 6720 (BEAKER) (test code = [facility], 1538) 59083: Typing Teacher/Techni ethel ID = [id number] for BEATRIZ HN, ULISES RAD, CHEST, 1 VIEW, NON [id number] 07:50:00Reason for exam:->eval PNXShould this be performed at the bedside?->Yes [facility] 1950 Sex: FFINAL [...] Stable chest. Nopneumothorax is identified. Signed: Claire Downing Verified Date/Time: 12/16/2020 07:50:48 Reading Location: [address] Transitional Reading Room POCT-GLUCOSE [id number] 07:42:00 Test Item Value Reference Range Interpretation Comments POC-GLUCOSE METER 124 mg/dL 70-110 H : TESTED [facility] T [facility] 6720 [facility] (test code = [place] [facility], 1538) 61851: Typing Teacher/Techni ethel ID = [id number] for ULISES SCHMITZ COMPREHENSIVE METABOLIC [id number] 05:29:00 Test Item Value Reference Range Interpretation [...] S NOT APPLICABLE FOR DIALYSIS PATIEN TS. Typing Teacher ID - LATA [id number] 05:29:00 Test Item Value Reference Range Interpretation Comments MAGNESIUM (BEAKER) (test code = 2.1 mg/dL 1.6-2.6 627) Typing Teacher ID Juan GUIDO [id number] 05:29:00 Test Item Value Reference Range Interpretation Comments PHOSPHORUS (BEAKER) (test code = 3.1 mg/dL 2.3-4.7 604) Typing Teacher ID - LATA WCBC (HEMOGRAM ONLY)2020-12-16 05:18:00 [...] = 413) RAD, CHEST, 1 VIEW, NON [id number] 03:15:00Reason for exam:- >pnuemothoraxShould this be performed at the bedside?->Yes [facility] 1950 Sex: FFINAL [...] pneumothorax.The cardiomediastinal contours are stable. Signed: Devante Mckenzie [facility] Verified Date/Time: 12/16/2020 03:15:49 POCT-GLUCOSE [id number] 21:17:00 Test Item Value Reference Range Interpretation Comments POC-GLUCOSE METER 82 mg/dL 70-110 : TESTED A T [facility] 6720 ([facility]) (test code = [facility], 1538) 13560: Typing Teacher/Techni ethel ID = [id number] for Reilly ez, [place]a POCT-GLUCOSE [id number] 16:59:00 Test Item Value Reference Range Interpretation Comments POC-GLUCOSE METER 145 mg/dL 70-110 H : Notified RN/MD: ([facility]) (test code = TESTED AT [facility] 6720 1538) [facility], [address]: Typing Teacher/Techni ethel ID = [id number] for GO NZALEZ, [place]ANE POCT-GLUCOSE [id number] 13:21:00 Test Item Value Reference Range Interpretation Comments POC-GLUCOSE METER 116 mg/dL 70-110 H : TESTED A T [facility] 6720 ([facility]) (test code = [facility], 1538) 69134: Typing Teacher/Techni ethel ID = [id number] for Michaela Bhardwaj rd RAD, CHEST, 1 VIEW, NON [id number] 12:07:00Reason for exam:->PTXShould this be performed at the bedside?->Yes [facility] 1950 Sex: FFINAL REPORT Chest one view. Clinical history: PTX Comparison: December 15, 2020 Discussion: A frontal chest is provided. Cardiomediastinal contours are unchanged. Aorta appears tortuous. Aright chest tube is unchanged. There is a small left-sided pleural effusion, similar to the prior exam. Mild interstitial prominence is nonspecific. No pneumothorax. No acute bony pathology. Signed: Lucia Fernandez Verified Date/Time: 12/15/2020 12:07:16 Reading Location: [facility] C013X Ortho Consult Reading Room BLOOD GAS, [id number] 11:16:00 Test Item Value Reference Range Interpretation [...] (BEAKER) (test code = 1819) 28.0 POCT-GLUCOSE [id number] 08:19:00 Test Item Value Reference Range Interpretation Comments POC-GLUCOSE METER 116 mg/dL 70-110 H : TESTED A T [facility] 6720 (BEAKER) (test code [facility], = 1538) 14338: Typing Teacher/Techni ethel ID = [id number] for Feng delgado (contract), [facility] francisco javier COMPREHENSIVE METABOLIC [id number] 05:46:00 Test Item Value Reference Range Interpretation [...] S NOT APPLICABLE FOR DIALYSIS PATIEN TS. Typing Teacher ID - [id number] 05:46:00 Test Item Value Reference Range Interpretation Comments MAGNESIUM (BEAKER) (test code = 1.9 mg/dL 1.6-2.6 627) Typing Teacher ID - [id number] 05:46:00 Test Item Value Reference Range Interpretation Comments PHOSPHORUS (BEAKER) (test code = 3.0 mg/dL 2.3-4.7 604) Typing Teacher ID - EDASIRAD, CHEST, 1 VIEW, NON [id number] 05:32:00Reason for exam:->eval PNXShould this be performed at the bedside?->Yes [facility] 1950 Sex: FFINAL REPORT RAD, CHEST, 1 VIEW, NON DEPT INDICATION: eval PNX COMPARISON: Exam fromfive hours prior FINDINGS: Portable frontal view of the chest. IMPRESSION: Support Lines: Stable right chest tube. Lungs and pleura: Unchanged blunting of both costophrenic angles. No airspace consolidation. No discernible pneumothorax.Heart and mediastinum: Stable contours.Additional findings: None. Signed: Navdeep [place] Verified Date/Time: 12/15/2020 05:32:54 IUM, [id number] 05:14:00 Test Item Value Reference Range Interpretation [...] (BEAKER) (test code = 413) BLOOD GAS, [id number] 01:14:00 Test Item Value Reference Range Interpretation [...] (test 37.0 code = 1818) RESPIRATORY PANEL [id number] 00:01:00 Test Item Value Reference Range Interpretation [...] decisions. This sample was tested at the [facility] using the Backbl[employer] FilmArray Respiratory Panel. It is FDA cleared and has been verified and approved by the [facility] for clinical use on nasopharyngeal swab specimens.The performance of the FilmArrayRP has not been established in individuals who received influenza vaccine. Recent administration of a nasal influenza vaccine may cause false positive results for Influenza A and/orInfluenza B.SARS-COV2/RT-PCR ([facility])2020-12-14 23:51:00 Test Item Value Reference Range Interpretation Comments SARS-COV2/RT-PCR Negative Negative The SARS-Co V-2 target (test code = 0724976) nuclei c acids are not detected in thi s specimen. The presence of SARS-CoV-2/FLU/RSV viral nucleic acids cannot rule out co- infections or disease caused by other viral or bacterial pathogens. As with any molecular test, mutations within the target regions of the [employer] SARS-CoV-2/Flu/RSV test could affect primer and/or probe [...] SARS-CoV-2/Flu/RSV by their healthcareprovider. Results from [facility] Xpert Xpress SARS-CoV-2/Flu/RSV test should [...] of the Act.Fact Sheet for Healthcare Providers:https ://www.[employer]/Documents/Xpert%20Xpress%20SARS%20CoV-2/Fact%20Sheets/302-390 2%31DPEO-OUN-7%20HEALTHCARE%20PROVIDERS%20FACT%20SHEET.pdfFact Sheet for Healthcare Patients:https://www.[employer]/Docum ents/Xpert%20Xpress%20SARS%20Cov-2/Fact%20Sheets/3023801%06QAMT-KRH-3%20PATIENT %20FACT%20SHEET.pdfTSH/FREE T4 IF [id number] 22:33:00 Test Item Value Reference Range Interpretation Comments THYROID STIMULATING HORMONE 2.265 uIU/mL 0.350-4.940 (BEAKER) (test code = 772) Typing Teacher ID - [id number] 22:20:00 Test Item Value Reference Range Interpretation Comments PROCALCITONIN (BEAKER) (test code 0.23 ng/mL <0.05 H = 3036) SEPSIS RISK (ng/mL)Low: 0.05-0.50Intermediate: 0.51-2.00High: >=2.01C- REACTIVE [id number] 22:12:00 Test Item Value Reference Range Interpretation Comments C-REACTIVE PROTEIN (BEAKER) (test 0.86 mg/dL 0.00-0.50 H code = 676) Typing Teacher ID - [id number] 22:12:00 Test Item Value Reference Range Interpretation Comments MAGNESIUM (BEAKER) 2.0 mg/dL 1.6-2.6 Specimen slightly (test code = 627) hemolyzed Typing Teacher ID - [id number] 22:12:00 Test Item Value Reference Range Interpretation Comments PHOSPHORUS (BEAKER) 4.5 mg/dL 2.3-4.7 Specimen slightly (test code = 604) hemolyzed Typing Teacher ID - ADMINCOMPREHENSIVE METABOLIC [id number] 22:12:00 Test Item Value Reference Range Interpretation [...] S NOT APPLICABLE FOR DIALYSIS PATIEN TS. Typing Teacher ID - ADMINLACTIC ACID, [id number] 22:07:00 Test Item Value Reference Range Interpretation Comments LACTATE BLOOD VENOUS (2) (BEAKER) 1.86 mmol/L 0.50-2.20 (test code = 2872) Typing Teacher ID - ADMINPOCT-GLUCOSE [id number] 21:53:00 Test Item Value Reference Range Interpretation Comments POC-GLUCOSE METER 89 mg/dL 70-110 : TESTED A T [facility] 6720 (BEAKER) (test code = [place], 1538) 15628: Typing Teacher/Techni ethel ID = [id number] for Elsi Diaz CBC (HEMOGRAM ONLY)2020-12-14 21:53:00 [...] (BEAKER) (test code = 413) BLOOD GAS, [id number] 21:49:00 Test Item Value Reference Range Interpretation [...] (BEAKER) (test code = 1819) 40.0 CALCIUM, [id number] 21:48:00 Test Item Value Reference Range Interpretation Comments CALCIUM IONIZED (BEAKER) (test 1.18 mmol/L 1.12-1.27 code = 698) PH, BLOOD (BEAKER) (test code = 7.22 1810) RAD, CHEST, 1 VIEW, NON [id number] 20:50:00Reason for exam:->chest tube placementShould this be performed at the bedside?->Yes [facility] 1950 Sex: FFINAL [...] post right chest tube placement. Signed: Romeo Nguyenort Verified Date/Time: 12/14/2020 20:50:14 Reading Location: [address] Consult Reading Room [id number] 14:04:21 Test Item Value Reference Range Interpretation Comments ALBUMIN (test code = 5885986913) 3.2 g/dL 3.5-5.0 L Lab Interpretation (test code = Abnormal 86546-4) [facility] (NA, K, CL, CO2, GLUCOSE, BUN, CREATININE, CA)2020-12-04 10:57:25 Test Item Value Reference Range Interpretation Comments NA (test code = 137 mmol/L 135-145 1169894233) K (test code = 3.9 mmol/L 3.5-5.0 0969342295) CL (test code = 95 mmol/L 98-108 L 4182940181) CO2 TOTAL (test code = 36 mmol/L 23-31 H 1361916701) AGAP (test code = 2-16 5581749237) BUN (test code = 15 mg/dL 7-23 6294093212) GLUCOSE (test code = 92 mg/dL 70-110 4035729235) CREATININE (test code = 0.53 mg/dL 0.50-1.04 7220170339) CALCIUM (test code = 8.9 mg/dL 8.6-10.6 9610546764) eGFR (test code = mL/min/1.73m2 8311481942) CHRISTINE (test code = CHRISTINE) Association of [...] tests). Lab Interpretation Abnormal (test code = 71864-6) [facility]24 Test Item Value Reference Range Interpretation Comments MAGNESIUM (test code = [id number]) 2.0 mg/dL 1.7-2.4 Lab Interpretation (test code = Normal 87024-0) [facility] WITH [id number] 10:19:38 Test Item Value Reference Range Interpretation Comments WBC (test code = See_Comment [Automated 6690-2) message] The sy stem which [...] (test code = 52.2 fL 39.0-49.9 H 26200-4) RDW-CV (test code = 15.9 % 12.0-15.5 H 788-0) PLT (test code = See_Comment [Automated 777-3) message] The sy stem which generated this result transmitted reference range : 166 - 358 10*3/ ?L. The reference r crispin was not used to interpret this result as normal/abnormal . MPV (test code = 9.6 fL 9.5-12.9 23631-5) NRBC/100 WBC (test See_Comment [Automat ed code = 6951787670) message] The system which generated this result transmitted reference range : 0.0 - 10.0 /100 WBCs. The refer ence range was not u sed to interpret th is result as normal/abnormal . NRBC x10^3 (test code <0.01 See_Comment [Auto mated = 4792243700) message] The s ystem which generated this result transmitted reference range : 10*3/?L. The reference range was not used to interpret this result as normal/abnormal . GRAN MAT (NEUT) % 56.8 % (test code = 770-8) IMM GRAN % (test code 0.30 % = 8641533252) LYMPH % (test code = 18.2 % 736-9) MONO % (test code = 17.8 % 5905-5) EOS % (test code = 6.2 % 713-8) BASO % (test code = 0.7 % 706-2) GRAN MAT x10^3(ANC) 3.41 10*3/uL 1.88-7.09 (test code = 5857010144) IMM GRAN x10^3 (test <0.03 0.00-0.06 code = 3630819869) LYMPH x10^3 (test code 1.09 10*3/uL 1.32-3.29 L = 731-0) MONO x10^3 (test code 1.07 10*3/uL 0.33-0.92 H = 742-7) EOS x10^3 (test code = 0.37 10*3/uL 0.03-0.39 711-2) BASO x10^3 (test code 0.04 10*3/uL 0.01-0.07 = 704-7) Lab Interpretation Abnormal (test code = 34402-8) [facility] METABOLIC PANEL (NA, K, CL, CO2, GLUCOSE, BUN, CREATININE, CA)2020-12-03 11:48:25 Test Item Value Reference Range Interpretation Comments NA (test code = 137 mmol/L 135-145 4009804622) K (test code = 3.6 mmol/L 3.5-5.0 Slight 3026432716) hemolysis CL (test code = 93 mmol/L 98-108 L 7281304199) CO2 TOTAL (test code 38 mmol/L 23-31 H = 4864014163) AGAP (test code = 2-16 7233867096) BUN (test code = 14 mg/dL 7-23 Slight 2191846880) hemolysis GLUCOSE (test code = 94 mg/dL 70-110 0726168010) CREATININE (test code 0.44 mg/dL 0.50-1.04 L = 9942071842) CALCIUM (test code = 9.2 mg/dL 8.6-10.6 1049862929) eGFR (test code = mL/min/1.73m2 2880308377) CHRISTINE (test code = CHRISTINE) Association of [...] tests). Lab Interpretation Abnormal (test code = 72801-0) [facility] 11:48:25 Test Item Value Reference Range Interpretation Comments MAGNESIUM (test code = 9844040589) 2.0 mg/dL 1.7-2.4 Lab Interpretation (test code = Normal 14107-5) [facility] WITH [id number] 11:28:06 Test Item Value Reference Range Interpretation Comments WBC (test code = See_Comment [Automated 8710-2) message] The sy stem which generated this result transmitted reference range : 4.30 - 11.10 10*3/?L. The reference range was not used to interpret this result as normal/abnormal . RBC (test code = See_Comment [Automated 741-4) message] The sy stem which generated this [...] (test code = 53.5 fL 39.0-49.9 H 52470-5) RDW-CV (test code = 15.8 % 12.0-15.5 H 788-0) PLT (test code = See_Comment [Automated 777-3) message] The sy stem which generated this result transmitted reference range : 166 - 358 10*3/ ?L. The reference r crispin was not used to interpret this result as normal/abnormal . MPV (test code = 9.8 fL 9.5-12.9 84131-2) NRBC/100 WBC (test See_Comment [Automat ed code = 1169050393) message] The system which generated this result transmitted reference range : 0.0 - 10.0 /100 WBCs. The refer ence range was not u sed to interpret th is result as normal/abnormal . NRBC x10^3 (test code <0.01 See_Comment [Auto mated = 7993931496) message] The s ystem which generated this result transmitted reference range : 10*3/?L. The reference range was not used to interpret this result as normal/abnormal . GRAN MAT (NEUT) % 59.3 % (test code = 770-8) IMM GRAN % (test code 0.30 % = 4643358754) LYMPH % (test code = 21.7 % 736-9) MONO % (test code = 14.6 % 5905-5) EOS % (test code = 3.6 % 713-8) BASO % (test code = 0.5 % 706-2) GRAN MAT x10^3(ANC) 4.45 10*3/uL 1.88-7.09 (test code = 5416558439) IMM GRAN x10^3 (test <0.03 0.00-0.06 code = 4084586332) LYMPH x10^3 (test code 1.63 10*3/uL 1.32-3.29 = 731-0) MONO x10^3 (test code 1.10 10*3/uL 0.33-0.92 H = 742-7) EOS x10^3 (test code = 0.27 10*3/uL 0.03-0.39 711-2) BASO x10^3 (test code 0.04 10*3/uL 0.01-0.07 = 704-7) Lab Interpretation Abnormal (test code = 03183-3) [facility] CULTURE [id number] 17:01:30 Test Item Value Reference Range Interpretation Comments Blood Culture-Aerobic No organisms No growth Previo us (test code = 11241-7) isolated prelim inary verified result was Culture [...] Culture-Anaerobic isolated preliminar y (test code = 12492-4) verifi ed result was Culture In Progress [...] CDT Lab Interpretation Normal (test code = 90085-5) [facility] CULTURE [id number] 16:01:30 Test Item Value Reference Range Interpretation Comments Blood Culture-Aerobic No organisms No growth Previo us (test code = 55595-8) isolated prelim inary verified result was Culture [...] Culture-Anaerobic isolated preliminar y (test code = 50385-2) verifi ed result was Culture In Progress [...] CDT Lab Interpretation Normal (test code = 99225-0) [facility] [id number] 16:12:34 Test Item Value Reference Range Interpretation Comments SPUTUM CULTURE 1+ Respiratory daniel: (test code = 622-1) Commensal upper respiratory microorganisms only. Gram stain (test Occasional (Rare) code = 664-3) Epithelial cells CHRISTINE (test code = Bacterial pathogens CHRISTINE) associated with lower respiratory infections were not identified, which include Pseudomonas aeruginosa and Staphylococcus aureus (MRSA or MSSA). [facility] (NA, K, CL, CO2, GLUCOSE, BUN, CREATININE, CA)2020-12-01 10:12:53 Test Item Value Reference Range Interpretation Comments NA (test code = 137 mmol/L 135-145 2275770019) K (test code = 3.6 mmol/L 3.5-5.0 0461966200) CL (test code = 94 mmol/L 98-108 L 5929072089) CO2 TOTAL (test code = 35 mmol/L 23-31 H 1565183774) AGAP (test code = 2-16 6348207307) BUN (test code = 17 mg/dL 7-23 7840238887) GLUCOSE (test code = 88 mg/dL 70-110 4285675414) CREATININE (test code = 0.38 mg/dL 0.50-1.04 L 6065738065) CALCIUM (test code = 8.6 mg/dL 8.6-10.6 6699730696) eGFR (test code = mL/min/1.73m2 3775471757) CHRISTINE (test code = CHRISTINE) Association of [...] tests). Lab Interpretation Abnormal (test code = 43129-5) [facility]2021-[facility]-26 10:02:28 Test Item Value Reference Range Interpretation Comments MAGNESIUM (test code = 8358838980) 2.0 mg/dL 1.7-2.4 Lab Interpretation (test code = Normal 10170-1) [facility]OS[facility]2021-06-26 10:02:28 Test Item Value Reference Range Interpretation Comments PHOSPHORUS (test code = 4035784953) 3.5 mg/dL 2.5-5.0 Lab Interpretation (test code = Normal 55855-9) [facility] WITH [id number] 09:52:48 Test Item Value Reference Range Interpretation Comments WBC (test code = See_Comment [Automated 6690-2) message] The sy stem which [...] (test code = 54.5 fL 39.0-49.9 H 91626-2) RDW-CV (test code = 15.9 % 12.0-15.5 H 788-0) PLT (test code = See_Comment [Automated 777-3) message] The sy stem which generated this result transmitted reference range : 166 - 358 10*3/ ?L. The reference r crispin was not used to interpret this result as normal/abnormal . MPV (test code = 9.5 fL 9.5-12.9 61005-3) NRBC/100 WBC (test See_Comment [Automat ed code = 7152765127) message] The system which generated this result transmitted reference range : 0.0 - 10.0 /100 WBCs. The refer ence range was not u sed to interpret th is result as normal/abnormal . NRBC x10^3 (test code <0.01 See_Comment [Auto mated = 1592343436) message] The s ystem which generated this result transmitted reference range : 10*3/?L. The reference range was not used to interpret this result as normal/abnormal . GRAN MAT (NEUT) % 64.3 % (test code = 770-8) IMM GRAN % (test code 0.30 % = 1181439736) LYMPH % (test code = 17.9 % 736-9) MONO % (test code = 13.5 % 5905-5) EOS % (test code = 3.7 % 713-8) BASO % (test code = 0.3 % 706-2) GRAN MAT x10^3(ANC) 3.85 10*3/uL 1.88-7.09 (test code = 6896874349) IMM GRAN x10^3 (test <0.03 0.00-0.06 code = 8215940002) LYMPH x10^3 (test code 1.07 10*3/uL 1.32-3.29 L = 731-0) MONO x10^3 (test code 0.81 10*3/uL 0.33-0.92 = 742-7) EOS x10^3 (test code = 0.22 10*3/uL 0.03-0.39 711-2) BASO x10^3 (test code <0.03 0.01-0.07 = 704-7) Lab Interpretation Abnormal (test code = 15800-1) [facility] COVID [id number] 02:47:45COVID DMT InterpretationInterpretation/Recommendations: Molecular NAAT Tests for [...] COVID-19 testing the patient has had at [facility], including molecular NAAT testing (more commonly known as PCR testing and Rapid ID Now testing) and antibody testing. It does not take into account any testingthat a patient has had outside of the [facility] medical record. [facility] LABORATORY SERVICESCOVID RtaucupJFFZ-ZzH-7 Rapid ID NOW (no units) ? ? Date ? Value ? 11/27/2020 ? Not Detected ? ? ? 11/10/2020 ? Not Detected ? [facility] SERVICESUnFormerly [facility] PANEL 21 + LACTIC [id number] 20:13:40 Test Item Value Reference Range Interpretation Comments PH (test code = 7.32-7.42 8643362003) PCO2 AALIYAH (test code = See_Comment H [Auto mated 2345745137) message] The sy stem which generated this result transmitted reference range : 41 - 51 mmHg. The reference range was not used to interpret this result as normal/abnormal . PO2 AALIYAH (test code = See_Comment HH [Autom ated 3368487585) message] The sy stem which generated this result transmitted reference range : 25 - 40 mmHg. The reference range was not used to interpret this result as normal/abnormal . HCO3 AALIYAH (test code = See_Comment H [Auto mated 3093289163) message] The sy stem which generated this result transmitted reference range : 24 - 28 mEq/L. The reference range was not used to interpret this result as normal/abnormal . AC VBE(BEAKER) (test mEq/L code = 4483883623) THB AALIYAH (test code = 12.8 g/dL 12.0-16.0 3799501571) %O2HB AALIYAH (test code = 95.5 % 52.0-63.0 H 0732345195) %COHB AALIYAH (test code = 0.4 % 0.0-1.5 3596124540) %METHB AALIYAH (test code = 0.1 % 0.4-1.5 L 2728563368) VOL%O2 AALIYAH (test code = 17.2 % 6.0-12.0 H 2834399415) NA (test code = 139 mmol/L 135-145 7015912752) K+ (test code = 3.9 mmol/L 3.5-5.0 5961755111) AC CA IONZ (test code = 4.50 mg/dL 4.50-5.30 7537018753) GLUCOSE (test code = 167 mg/dL 70-110 H 2024231936) LACTIC ACID (test code 2.64 mmol/L 0.50-2.20 H = 1167794265) Lab Interpretation Abnormal (test code = 22183-1) [facility] / MSSA Screen by PCR, [id number] 16:25:22 Test Item Value Reference Range Interpretation Comments MSSA Screen by PCR, Nares (test code Negative Negative = 38971-0) MRSA/MSSA Positive? (test code = No No 6182355732) Lab Interpretation (test code = Normal 71996-1) [facility]bergLEGIONELLA URINARY ANTIGEN [id number] 10:44:38 Test Item Value Reference Range Interpretation Comments Legionella Urinary Negative Negative Antigen (test code = 5199342273) CHRISTINE (test code = CHRISTINE) Negative for [...] test. Lab Interpretation (test Normal code = 06506-4) [facility]bergPNEUMOCOCCAL [id number] 10:44:22 Test Item Value Reference Range Interpretation Comments S. pneumoniae antigen (test code = Negative Negative 7325294916) Lab Interpretation (test code = Normal 10996-0) [facility]berg[facility]INAL[facility]IS2021-06-23 10:42:10 Test Item Value Reference Range Interpretation Comments APPEARANCE (test code = Hazy Clear A 8198158769) COLOR (test code = Mary Ann Yellow A 5532126495) PH (test code = 4.8-8.0 8559323654) SP GRAVITY (test code = 1.003-1.030 H 7415835377) GLU U QUAL (test code = Normal Normal 0425894713) BLOOD (test code = Negative Negative Interfere nce from 0054407350) ascorbic acid m ay cause false neg ative results. KETONES (test code = 5 mg/dL Negative A 5140471551) PROTEIN (test code = Negative Negative 2887-8) UROBILIN (test code = Normal Normal 2612785756) BILIRUBIN (test code = Negative Negative 7079174279) NITRITE (test code = Negative Negative 8110795593) LEUK FAITH (test code = Negative Negative 4296132012) RBC/HPF (test code = See_Comment H [Autom ated message] 4543211695) The system [employer] generated this result transmitted ref erence range: 0 - 3 HP F. The reference range was not used to int erpret this result as normal/abnormal . WBC/HPF (test code = See_Comment [Autom ated message] 1353956655) The system [employer] generated this result transmitted ref erence range: 0 - 5 HP F. The reference range was not used to int erpret this result as normal/abnormal . BACTERIA (test code = Few Negative A 3241352159) MUCOUS (test code = Slight Negative LPF A 4728284523) AMORPHOUS (test code = Rare Rare HPF 7147892448) ASCORBIC ACID (test code 40 mg/dL = 4076327160) Lab Interpretation (test Abnormal code = 27900-3) [facility]bergXR RIBS 4+ VW [id number] 10:25:19 Left-sided rib fractures with left pleural effusion and left lower lobeatelectasis versus infiltrate. Questionable inferior lateral right rib fractures, suboptimally profiled. Severe osteopenia. Thoracic and lumbar spine vertebral body compression fractures, chronicityuncertain. Severe osteopenia, suspect osteoporosis. EXAM: XR RIBS 4+ VW BILATERAL HISTORY: Rule out possible rib fracture. [facility] sl[facility] into truck door. COMPARISON: None FINDINGS: Imagingof the left and right ribs demonstrates blunting of the leftcostophrenic sulcus with partial opacification of the left lung base.Severe osteopenia is present. Calcified plaque outlines the aortic arch.Multifocal compression fracture deformities are partially visualizedthroughout the thoracic and lumbar spine. There is no pneumothorax.Minimally displaced left-sided lateral rib fractures are present at theapproximate ninth through 11th rib levels. Diffuse background interstitialprominence of the lungsis present. Subtle cortical step-off deformity isseen along the inferior and lateral right ribs. [facility], Radiant Results Inft User - 11/28/2020 5:26 AM CDT EXAM:XR RIBS 4+ VW BILATERALHISTORY:Rule out possible rib fracture. Patient reports recent trauma to anteriorchest by slamming into truck door. COMPARISON:NoneFINDINGS: Imaging of the left and right ribs demonstrates blunting of the leftcostophrenic sulcus with partial opacification of theleft lung base.Severe osteopenia is present. Calcified plaque outlines the aortic arch.Multifocal compression fracture deformities are partially visualizedthroughout the thoracic and lumbar spine. There is no pneumothorax.Minimally displaced left-sided lateral [...] body compression fractures, chronicityuncertain.Severe osteopenia, suspect osteoporosis. [facility] (NA, K, CL, CO2, Glucose, BUN, Creatinine, CA)2020-11-28 10:13:28 Test Item Value Reference Range Interpretation Comments NA (test code = 141 mmol/L 135-145 4312140347) K (test code = 4.3 mmol/L 3.5-5.0 3681625902) CL (test code = 99 mmol/L 98-108 0294868815) CO2 TOTAL (test code = 36 mmol/L 23-31 H 6563998811) AGAP (test code = 2-16 2514757081) BUN (test code = 35 mg/dL 7-23 H 2315769018) GLUCOSE (test code = 93 mg/dL 70-110 8085210653) CREATININE (test code = 0.38 mg/dL 0.50-1.04 L 0549853608) CALCIUM (test code = 8.3 mg/dL 8.6-10.6 L 1120577169) eGFR (test code = mL/min/1.73m2 3736287558) CHRISTINE (test code = CHRISTINE) Association of [...] tests). Lab Interpretation Abnormal (test code = 95382-1) [facility]bergMagnesium [id number] 10:03:09 Test Item Value Reference Range Interpretation Comments MAGNESIUM (test code = 6332403185) 2.4 mg/dL 1.7-2.4 Lab Interpretation (test code = Normal 76205-8) [facility]bergHepatic Function Panel (ALB, T.PRO, BILI T, BU/BC, ALT, AST, ALK, PHOS)2020-11-28 10:03:09 Test Item Value Reference Range Interpretation Comments TOTAL BILI (test code = 7953520873) 0.3 mg/dL 0.1-1.1 BILI UNCON (test code = 3877900639) 0.0 mg/dL 0.1-1.1 L BILI CONJ (test code = 6554811924) 0.0 mg/dL 0.0-0.3 T PROTEIN (test code = 7211402735) 5.7 g/dL 6.3-8.2 L ALBUMIN (test code = 3302538782) 2.7 g/dL 3.5-5.0 L ALK PHOS (test code = 2351002401) 119 U/L 34-122 ALTv (test code = 1742-6) 8 U/L 5-35 AST(SGOT) (test code = 4416764077) 21 U/L 13-40 Lab Interpretation (test code = Abnormal 44189-7) [facility] + LACTIC [id number] 09:39:06 Test Item Value Reference Range Interpretation Comments PH (test code = 7.32-7.42 7763287578) PCO2 AALIYAH (test code = See_Comment H [Auto mated 2338375952) message] The sy stem which generated this result transmitted reference range : 41 - 51 mmHg. The reference range was not used to interpret this result as normal/abnormal . PO2 AALIYAH (test code = See_Comment H [Autom ated 7148372009) message] The sy stem which generated this result transmitted reference range : 25 - 40 mmHg. The reference range was not used to interpret this result as normal/abnormal . HCO3 AALIYAH (test code = See_Comment H [Auto mated 2459557065) message] The sy stem which generated this result transmitted reference range : 24 - 28 mEq/L. The reference range was not used to interpret this result as normal/abnormal . AC VBE(BEAKER) (test mEq/L code = 0429710281) THB AALIYAH (test code = 12.6 g/dL 12.0-16.0 0893553148) %O2HB AALIYAH (test code = 88.7 % 52.0-63.0 H 1058498263) %COHB AALIYAH (test code = 0.8 % 0.0-1.5 3678542346) %METHB AALIYAH (test code = 0.1 % 0.4-1.5 L 2900543557) VOL%O2 AALIYAH (test code = 15.7 % 6.0-12.0 H 9600851893) NA (test code = 142 mmol/L 135-145 3717154740) K+ (test code = 4.3 mmol/L 3.5-5.0 9552535207) AC CA IONZ (test code = 4.80 mg/dL 4.50-5.30 0667988091) GLUCOSE (test code = 92 mg/dL 70-110 6452500613) LACTIC ACID (test code 1.16 mmol/L 0.50-2.20 = 7016018654) Lab Interpretation Abnormal (test code = 13003-2) [facility] with [id number] 09:36:44 Test Item Value Reference Range Interpretation [...] (test code = 55.5 fL 39.0-49.9 H 47535-0) RDW-CV (test code = 15.8 % 12.0-15.5 H 788-0) PLT (test code = See_Comment [Automated 777-3) message] The sy stem which generated this result transmitted reference range : 166 - 358 10*3/ ?L. The reference r crispin was not used to interpret this result as normal/abnormal . MPV (test code = 9.5 fL 9.5-12.9 49884-2) NRBC/100 WBC (test See_Comment [Automat ed code = 7448221337) message] The system which generated this result transmitted reference range : 0.0 - 10.0 /100 WBCs. The refer ence range was not u sed to interpret th is result as normal/abnormal . NRBC x10^3 (test code <0.01 See_Comment [Auto mated = 4109261803) message] The s ystem which generated this result transmitted reference range : 10*3/?L. The reference range was not used to interpret this result as normal/abnormal . GRAN MAT (NEUT) % 75.1 % (test code = 770-8) IMM GRAN % (test code 0.20 % = 2601694392) LYMPH % (test code = 13.1 % 736-9) MONO % (test code = 11.4 % 5905-5) EOS % (test code = 0.0 % 713-8) BASO % (test code = 0.2 % 706-2) GRAN MAT x10^3(ANC) 3.09 10*3/uL 1.88-7.09 (test code = 8855053415) IMM GRAN x10^3 (test <0.03 0.00-0.06 code = 4188127599) LYMPH x10^3 (test code 0.54 10*3/uL 1.32-3.29 L = 731-0) MONO x10^3 (test code 0.47 10*3/uL 0.33-0.92 = 742-7) EOS x10^3 (test code = <0.03 0.03-0.39 L 711-2) BASO x10^3 (test code <0.03 0.01-0.07 = 704-7) Lab Interpretation Abnormal (test code = 10596-2) [facility] + LACTIC [id number] 03:48:20 Test Item Value Reference Range Interpretation Comments PH (test code = 2) 7.35-7.45 L PCO2 (test code = See_Comment H [Automate d 0253484321) message] The sy stem which generated this result transmitted reference range : 35 - 45 mmHg. The reference range was not used to interpret this result as normal/abnormal . PO2 (test code = See_Comment L [Automated 2225514870) message] The sy stem which generated this result transmitted reference range : 80 - 100 mmHg. The reference range was not used to interpret this result as normal/abnormal . HCO3 (test code = See_Comment H [Automate d 1487109456) message] The sy stem which generated this result transmitted reference range : 22 - 26 mEq/L. The reference range was not used to interpret this result as normal/abnormal . BE (test code = See_Comment H [Automated 3016001857) message] The sy stem which generated this result transmitted reference range : -3.0 - 3.0 mEq/ L. The reference r crispin was not used to interpret this result as normal/abnormal . THB (test code = 13.6 g/dL 12.0-16.0 0902213911) %O2HB (test code = 94.4 % 94.0-99.0 9141276632) %COHB ART (test code = 1.2 % 0.0-1.5 6825918027) %METHB ART (test code = 0.0 % 0.4-1.5 L 8966220162) VOL%O2 ART (test code = 18.1 % 15.0-23.0 7302939234) NA (test code = 143 mmol/L 135-145 7710170109) K+ (test code = 4.3 mmol/L 3.5-5.0 8459614950) AC CA IONZ (test code = 4.80 mg/dL 4.50-5.30 3223102033) GLUCOSE (test code = 120 mg/dL 70-110 H 1649848484) LACTIC ACID (test code 0.99 mmol/L 0.50-2.20 = 1479508348) Lab Interpretation Abnormal (test code = 88793-2) [facility] BLOOD [id number] 01:07:34 Test Item Value Reference Range Interpretation Comments PH (test code = 7.32-7.42 L 0382096338) PCO2 AALIYAH (test code = See_Comment H [Auto mated message] 7254961186) The system [employer] generated this result transmitted ref erence range: 41 - 51 mmHg. The reference r crispin was not used to interpret this result as normal/abnor mal. PO2 AALIYAH (test code = See_Comment H [Autom ated message] 9271083382) The system [employer] generated this result transmitted ref erence range: 25 - 40 mmHg. The reference r crispin was not used to interpret this result as normal/abnor mal. HCO3 AALIYAH (test code = See_Comment H [Auto mated message] 7508574895) The system [employer] generated this result transmitted ref erence range: 24 - 28 mEq/L. The reference r crispin was not used to interpret this result as normal/abnor mal. AC VBE(BEAKER) (test mEq/L code = 6038189029) Lab Interpretation (test Abnormal code = 05751-1) [facility]bergPROCALCITONIN2021-06-23 00:57:28 Test Item Value Reference Interpretation Comments Range Procalcitonin (test <0.02 See_Comment [Automa cristhian code = 9628730967) message] The system which generated this result [...] lung abscess/empyema. For further information please refer to:[email or web address] Lab Interpretation Normal (test code = 82563-2) [facility]bergAd[place] [id number] 23:45:01 Test Item Value Reference Range Interpretation Comments TROPONIN I (test 0.029 ng/mL See_Comment Hemolyzed code = 0789974996) specimen [Automated message] The system which generated [...] ? Lab Interpretation Normal (test code = 28071-7) [facility] KlebergN-Terminal [id number]-[id number] 23:12:52 Test Item Value Reference Range Interpretation Comments NT-proBNP (test code 1880 pg/mL See_Comment H [Autom ated = 5024658699) message] The system which generated this result transmitted reference range : <=125. The reference range was not used to interpret this result as normal/abnormal . CHRISTINE (test code = CHRISTINE) Biotin has been reported to cause a negative bias, interpret results relative to patient's use of biotin. Lab Interpretation Abnormal (test code = 06457-8) [facility] Arterial Blood Gas.2020-11-27 23:07:45 Test Item Value Reference Range Interpretation Comments PH (test code = 2) 7.35-7.45 L PCO2 (test code = See_Comment H [Automate d message] 0083810603) The system [employer] generated this result transmitted ref erence range: 35 - 45 mmHg. The reference r crispin was not used to interpret this result as normal/abnor mal. PO2 (test code = See_Comment [employer] [Automated message] 5221672049) The system [employer] generated this result transmitted ref erence range: 80 - 100 mmHg. The reference r crispin was not used to interpret this result as normal/abnor mal. HCO3 (test code = See_Comment H [Automate d message] 4527374317) The system [employer] generated this result transmitted ref erence range: 22 - 26 mEq/L. The reference r crispin was not used to interpret this result as normal/abnor mal. BE (test code = See_Comment [employer] [Automated message] 8579076521) The system [employer] generated this result transmitted ref erence range: -3.0 - 3 .0 mEq/L. The refe rence range was not u sed to interpret this result as normal/abnor mal. Lab Interpretation (test Abnormal code = 24475-6) [facility] [id number] 23:03:29 Test Item Value Reference Range Interpretation Comments GGT (test code = 8275654625) 16 U/L 13-40 Lab Interpretation (test code = Normal 36573-4) [facility] [id number] 16:26:41 Test Item Value Reference Range Interpretation Comments TROPONIN I (test 0.033 ng/mL See_Comment [Automated code = 6021195553) message] The system which generated this result [...] ? Lab Interpretation Normal (test code = 15389-6) [facility] [id number] 16:26:25HISTORY: SOB. TECHNIQUE: Portable AP erect view [...] findings of developing pneumonia inretrocardiac left lower lung.[facility] METABOLIC PANEL (91413)2020-11-27 16:21:42 Test Item Value Reference Range Interpretation Comments NA (test code = 141 mmol/L 135-145 2165564191) K (test code = 3.7 mmol/L 3.5-5.0 3514506895) CL (test code = 97 mmol/L 98-108 L 5385356059) CO2 TOTAL (test code = 38 mmol/L 23-31 H 1980152989) AGAP (test code = 2-16 2370011562) BUN (test code = 36 mg/dL 7-23 H 4815592360) GLUCOSE (test code = 128 mg/dL 70-110 H 7383831246) CREATININE (test code = 0.58 mg/dL 0.50-1.04 8934226482) TOTAL BILI (test code = 0.3 mg/dL 0.1-1.6 7671011833) CALCIUM (test code = 9.5 mg/dL 8.6-10.6 3004708954) T PROTEIN (test code = 7.0 g/dL 6.3-8.2 3656723285) ALBUMIN (test code = 3.4 g/dL 3.5-5.0 L 2552468842) ALK PHOS (test code = 168 U/L 34-122 H 0364284162) ALTv (test code = 10 U/L 5-35 2-6) AST(SGOT) (test code = 23 U/L 13-40 0776819971) eGFR (test code = mL/min/1.73m2 1563559853) CHRISTINE (test code = CHRISTINE) Association of [...] tests). Lab Interpretation Abnormal (test code = 15230-7) [facility] (ID NOW RAPID TESTING)2020-11-27 16:15:24 Test Item Value Reference Range Interpretation Comments SARS-CoV-2 Rapid ID NOW Not Detected Not Detected (test code = 90437-5) CHRISTINE (test code = CHRISTINE) ID NOW COVID-19 Assay is an isothermal nucleic acid amplification test intended for the qualitative detection of nucleic acid from SARS-CoV-2 viral RNA in nasopharyngeal (SET[employer] COLD ROLLING MACHINE) specimens. It is used under Emergency Use [...] indicated. Lab Interpretation Normal (test code = 23220-5) [facility] WITH [id number] 16:02:41 Test Item Value Reference Range Interpretation Comments WBC (test code = See_Comment [Automated 6790-2) message] The sy stem which generated this result transmitted reference range : 4.30 - 11.10 10*3/?L. The reference range was not used to interpret this result as normal/abnormal . RBC (test code = See_Comment [Automated 083-8) message] The sy stem which generated this [...] (test code = 55.8 fL 39.0-49.9 H 20907-8) RDW-CV (test code = 16.0 % 12.0-15.5 H 788-0) PLT (test code = See_Comment [Automated 777-3) message] The sy stem which generated this result transmitted reference range : 166 - 358 10*3/ ?L. The reference r crispin was not used to interpret this result as normal/abnormal . MPV (test code = 9.8 fL 9.5-12.9 10558-0) NRBC/100 WBC (test See_Comment [Automat ed code = 3485317462) message] The system which generated this result transmitted reference range : 0.0 - 10.0 /100 WBCs. The refer ence range was not u sed to interpret th is result as normal/abnormal . NRBC x10^3 (test code <0.01 See_Comment [Auto mated = 0209764842) message] The s ystem which generated this result transmitted reference range : 10*3/?L. The reference range was not used to interpret this result as normal/abnormal . GRAN MAT (NEUT) % 81.4 % (test code = 770-8) IMM GRAN % (test code 0.50 % = 8770774070) LYMPH % (test code = 11.1 % 736-9) MONO % (test code = 5.9 % 5905-5) EOS % (test code = 0.3 % 713-8) BASO % (test code = 0.8 % 706-2) GRAN MAT x10^3(ANC) 6.04 10*3/uL 1.88-7.09 (test code = 8902979882) IMM GRAN x10^3 (test 0.04 10*3/uL 0.00-0.06 code = 6141137653) LYMPH x10^3 (test code 0.82 10*3/uL 1.32-3.29 L = 731-0) MONO x10^3 (test code 0.44 10*3/uL 0.33-0.92 = 742-7) EOS x10^3 (test code = <0.03 0.03-0.39 L 711-2) BASO x10^3 (test code 0.06 10*3/uL 0.01-0.07 = 704-7) Lab Interpretation Abnormal (test code = 72283-6) [facility] + LACTIC [id number] 15:52:05 Test Item Value Reference Range Interpretation Comments PH (test code = 7.32-7.42 4747342819) PCO2 AALIYAH (test code = See_Comment H [Auto mated 0292917200) message] The sy stem which generated this result transmitted reference range : 41 - 51 mmHg. The reference range was not used to interpret this result as normal/abnormal . PO2 AALIYAH (test code = See_Comment [Autom ated 4957324231) message] The sy stem which generated this result transmitted reference range : 25 - 40 mmHg. The reference range was not used to interpret this result as normal/abnormal . HCO3 AALIYAH (test code = See_Comment H [Auto mated 0619683021) message] The sy stem which generated this result transmitted reference range : 24 - 28 mEq/L. The reference range was not used to interpret this result as normal/abnormal . AC VBE(BEAKER) (test mEq/L code = 6262382887) THB AALIYAH (test code = 13.9 g/dL 12.0-16.0 6579529084) %O2HB AALIYAH (test code = 61.0 % 52.0-63.0 3053997291) %COHB AALIYAH (test code = 3.2 % 0.0-1.5 H 4680828269) %METHB AALIYAH (test code = 0.3 % 0.4-1.5 L 1223012520) VOL%O2 AALIYAH (test code = 11.9 % 6.0-12.0 4252960582) NA (test code = 141 mmol/L 135-145 9647075083) K+ (test code = 4.3 mmol/L 3.5-5.0 1676993789) AC CA IONZ (test code = 4.50 mg/dL 4.50-5.30 5425177615) GLUCOSE (test code = 133 mg/dL 70-110 H 5061896541) LACTIC ACID (test code 1.92 mmol/L 0.50-2.20 = 3637435761) Lab Interpretation Abnormal (test code = 85344-3) [facility]bergN-TERMINAL [id number] 21:02:27 Test Item Value Reference Range Interpretation Comments NT-proBNP (test code 607 pg/mL See_Comment H [Autom ated = 0319786055) message] The system which generated this result transmitted reference range : <=125. The reference range was not used to interpret this result as normal/abnormal . CHRISTINE (test code = CHRISTINE) Biotin has been reported to cause a negative bias, interpret results relative to patient's use of biotin. Lab Interpretation Abnormal (test code = 53756-9) [facility]bergC-REACTIVE [id number] 18:59:27 Test Item Value Reference Range Interpretation Comments CRP (test code = 1763540096) 6.5 mg/dL <0.8 H Lab Interpretation (test code = Abnormal 89280-1) [id number] 15:59:00 Test Item Value Reference Range Interpretation Comments Blood Culture-Aerobic No organisms No growth Previo us (test code = 46723-6) isolated prelim inary verified result was Culture In Progress on 11/10/2020 at 195 7 CDT Blood Culture positive. No growth AA Previous Culture-Anaerobic See Blood Culture preli minary (test code = 26398-1) Workup for verifi ed result additional was Culture In information. Progress on 11/10/2020 at 070 1 CDT Lab Interpretation Abnormal (test code = 17539-0) [facility] CULTURE [id number] 15:58:24 Test Item Value Reference Range Interpretation Comments Blood Culture Shewanella algae [place] mor phologically Workup (test consistent with code = 600-7) organism above For susceptibility results, refer to culture # - [id number] Gram stain Isolated from (test code = anaerobic bottle 664-3) Gram negative bacilli [facility] CULTURE [id number] 15:56:17 Test Item Value Reference Range Interpretation Comments Blood Culture-Aerobic Culture positive. No growth AA P revious (test code = 05603-6) See Blood Culture p reliminary Workup for verified result additional was Culture In information. Progress on 11/10/2020 at 070 1 CDT Blood No organisms No growth Previous Culture-Anaerobic isolated preliminar y (test code = 53045-9) verifi ed result was Culture In Progress on 11/10/2020 at 200 0 CDT Lab Interpretation Abnormal (test code = 06466-9) [facility]PROCALCITONIN2021-06-08 06:21:11 Test Item Value Reference Range Interpretation Comments Procalcitonin (test 0.10 ng/mL <0.07 H code = 6412550335) CHRISTINE (test code = CHRISTINE) INTERPRETATION OF [...] lung abscess/empyema. For further information please refer to:[email or web address] Lab Interpretation Abnormal (test code = 33805-8) [facility] COVID [id number] 17:28:08COVID DMT InterpretationInterpretation/Recommendations: Molecular NAAT Tests for [...] COVID-19 testing the patient has had at [facility], including molecular NAAT testing (more commonly known as PCR testing and Rapid ID Now testing) and antibody testing. It does not take into account any testing that a patient has had outside of the [facility] medical record. [facility] SERVICESCOVID ResultsSA RS-CoV-2 Rapid ID NOW (no units) ? ? Date ? Value ? 11/10/2020 ? Not Detected ? [facility] [id number] 15:25:49 Test Item Value Reference Range Interpretation Comments FREE T4 (test code = See_Comment [Autom ated message] 8580332302) The system [employer] generated this result transmitted ref erence range: 0.78 - 2 .20 ng/dL:. The ref erence range was not u sed to interpret this result as normal/abnor mal. Lab Interpretation (test Normal code = 98933-2) [facility] [id number] 15:25:34 Test Item Value Reference Range Interpretation Comments FREE T3 (test code = 4122819424) 2.05 pg/mL 2.77-5.27 L Lab Interpretation (test code = Abnormal 82666-2) [facility] 1 [id number] 14:46:22 Chronic emphysematous changes with possible infectious/inflammatoryexacerbation [...] No acute osseous abnormality is present. Osteopenia. [facility], Radiant Results Inft User - 11/12/2020 9:47 [...] mild interstitial edema.Preliminary Report Dictated by Resident: Manav López MD., have reviewed this study and agree withthe above report. [facility] (NA, K, CL, CO2, GLUCOSE, BUN, CREATININE, CA)2020-11-12 14:40:25 Test Item Value Reference Range Interpretation Comments NA (test code = 136 mmol/L 135-145 7309904694) K (test code = 4.1 mmol/L 3.5-5.0 9050823824) CL (test code = 100 mmol/L 98-108 0472395900) CO2 TOTAL (test code = 32 mmol/L 23-31 H 1693863329) AGAP (test code = 2-16 2696188678) BUN (test code = 22 mg/dL 7-23 7112788197) GLUCOSE (test code = 90 mg/dL 70-110 1941476170) CREATININE (test code = 0.45 mg/dL 0.50-1.04 L 6918317384) CALCIUM (test code = 9.4 mg/dL 8.6-10.6 8110499776) eGFR (test code = mL/min/1.73m2 2440676053) CHRISTINE (test code = CHRISTINE) Association of [...] tests). Lab Interpretation Abnormal (test code = 21831-9) [facility] with [id number] 14:31:27 Test Item Value Reference Range Interpretation Comments WBC (test code = See_Comment [Automated 8328-2) message] The sy stem which generated this result transmitted reference range : 4.30 - 11.10 10*3/?L. The reference range was not used to interpret this result as normal/abnormal . RBC (test code = See_Comment [Automated 627-8) message] The sy stem which generated this [...] (test code = 51.8 fL 39.0-49.9 H 94239-7) RDW-CV (test code = 15.5 % 12.0-15.5 788-0) PLT (test code = See_Comment [Automated 777-3) message] The sy stem which generated this result transmitted reference range : 166 - 358 10*3/ ?L. The reference r crispin was not used to interpret this result as normal/abnormal . MPV (test code = 9.5 fL 9.5-12.9 35938-4) NRBC/100 WBC (test See_Comment [Automat ed code = 7410449064) message] The system which generated this result transmitted reference range : 0.0 - 10.0 /100 WBCs. The refer ence range was not u sed to interpret th is result as normal/abnormal . NRBC x10^3 (test code <0.01 See_Comment [Auto mated = 9195453517) message] The s ystem which generated this result transmitted reference range : 10*3/?L. The reference range was not used to interpret this result as normal/abnormal . GRAN MAT (NEUT) % 73.8 % (test code = 770-8) IMM GRAN % (test code 0.50 % = 1132393913) LYMPH % (test code = 11.0 % 736-9) MONO % (test code = 11.9 % 5905-5) EOS % (test code = 2.4 % 713-8) BASO % (test code = 0.4 % 706-2) GRAN MAT x10^3(ANC) 5.89 10*3/uL 1.88-7.09 (test code = 9317112165) IMM GRAN x10^3 (test 0.04 10*3/uL 0.00-0.06 code = 7416238928) LYMPH x10^3 (test code 0.88 10*3/uL 1.32-3.29 L = 731-0) MONO x10^3 (test code 0.95 10*3/uL 0.33-0.92 H = 742-7) EOS x10^3 (test code = 0.19 10*3/uL 0.03-0.39 711-2) BASO x10^3 (test code 0.03 10*3/uL 0.01-0.07 = 704-7) Lab Interpretation Abnormal (test code = 54977-2) [facility]YRO[facility] STIMULATING [id number] 00:51:55 Test Item Value Reference Range Interpretation Comments TSH (test code = See_Comment H [Automated message] 1499292714) The system [employer] generated this result transmitted ref erence range: 0.45 - 4 .70 mIU/L. The refe rence range was not u sed to interpret this result as normal/abnor mal. Lab Interpretation (test Abnormal code = 22366-5) [facility]berg[facility] Trough Level - Draw no more than 60 minutes before the 1830 dose.2020-11-12 00:24:13 Test Item Value Reference Range Interpretation Comments VANCO TROUGH (test code 6.7 ug/mL 10.0-20.0 L = 7991635397) CHRISTINE (test code = CHRISTINE) Toxic Range: ?>20 ug/mL 15-20 ug/mL is recommended for severe infection or when Vancomycin MARCELLA is greater than or equal to 2. Lab Interpretation (test Abnormal code = 55671-2) [facility]bergGRAM NEGATIVE BLOOD PATHOGENS DNA [id number] 09:16:52 Test Item Value Reference Range Interpretation Comments Blood Pathogens by No organisms included in DNA Comment (test the Blood DNA Probe test code = 74120-0) panel were detected. Further identification workup to be performed by culture testing methods. CHRISTINE (test code = See blood culture result CHRISTINE) for additional information. ?Testing included eight identification and six resistance marker targets. [facility]bergCT THORAX W [id number] 18:24:48 Impression: 1. No pulmonary mass or [...] liver function tests is suggested. RL: 2824AFC: 41557 End of Report Exam: CT Chest Without Contrast, 11/10/2020 11:15 AM. Ordering Physician: AMANDA DANIELS. 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 [...] Without Contrast, 11/10/2020 11:15 AM.Ordering Physician: AMANDA DANIELS.History: Weight loss, cachexia in chronic smoker. Comparison: [...] with liver function tests is suggested.RL: 2824AFC: 93954Kgj of Report [facility]bergURINALYSIS2021-06-05 09:41:46 Test Item Value Reference Range Interpretation Comments APPEARANCE (test code = Clear Clear 3664243634) COLOR (test code = Mary Ann Yellow A 9518649795) PH (test code = 4.8-8.0 3396951179) SP GRAVITY (test code = 1.003-1.030 3740444819) GLU U QUAL (test code = Normal Normal 7608548854) BLOOD (test code = Negative Negative 5569453641) KETONES (test code = Negative Negative 6414055153) PROTEIN (test code = 100 mg/dL Negative A 2887-8) UROBILIN (test code = 4.0 mg/dL Normal A 2638156950) BILIRUBIN (test code = 2 mg/dL Negative A 6775223682) NITRITE (test code = Negative Negative 2038498859) LEUK FAITH (test code = Negative Negative 2224388942) RBC/HPF (test code = See_Comment H [Autom ated message] 3474862881) The system [employer] generated this result transmit cristhian reference range : 0 - 3 HPF. The refe rence range was not u sed to interpret th is result as normal/abnormal . WBC/HPF (test code = See_Comment [Autom ated message] 9789867919) The system [employer] generated this result transmit cristhian reference range : 0 - 5 HPF. The refe rence range was not u sed to interpret th is result as normal/abnormal . BACTERIA (test code = Few Negative A 4257778788) MUCOUS (test code = Slight Negative LPF A 0381473044) SQ EPITH (test code = HPF 9691189439) HYAL CAST (test code = See_Comment H [Aut omated message] 0484944688) The system [employer] generated this result transmit cristhian reference range : <=2 LPF. The refere nce range was not u sed to interpret th is result as normal/abnormal . Ictotest (test code = Negative 3785508716) Lab Interpretation (test Abnormal code = 51425-0) [facility] (ID NOW RAPID TESTING)2020-11-10 09:17:13 Test Item Value Reference Range Interpretation Comments SARS-CoV-2 Rapid ID NOW Not Detected Not Detected (test code = 96891-2) CHRISTINE (test code = CHRISTINE) ID NOW COVID-19 Assay is an isothermal nucleic acid amplification test intended for the qualitative detection of nucleic acid from SARS-CoV-2 viral RNA in nasopharyngeal ([employer] COLD ROLLING MACHINE) specimens. It is used under Emergency Use [...] indicated. Lab Interpretation Normal (test code = 50555-8) [facility]. METABOLIC PANEL (60984)2020-11-10 09:13:10 Test Item Value Reference Range Interpretation Comments NA (test code = 137 mmol/L 135-145 3387414293) K (test code = 4.2 mmol/L 3.5-5.0 1392690629) CL (test code = 96 mmol/L 98-108 L 0044827537) CO2 TOTAL (test code = 34 mmol/L 23-31 H 0415421342) AGAP (test code = 2-16 9259637138) BUN (test code = 35 mg/dL 7-23 H 2407700504) GLUCOSE (test code = 131 mg/dL 70-110 H 3672528503) CREATININE (test code = 0.64 mg/dL 0.50-1.04 2396422320) TOTAL BILI (test code = 0.7 mg/dL 0.1-1.7 4920193636) CALCIUM (test code = 9.7 mg/dL 8.6-10.6 4353113948) T PROTEIN (test code = 7.7 g/dL 6.3-8.2 1318460388) ALBUMIN (test code = 3.9 g/dL 3.5-5.0 2731548470) ALK PHOS (test code = 202 U/L 34-122 H 6248797140) ALTv (test code = 13 U/L 5-35 1742-6) AST(SGOT) (test code = 27 U/L 13-40 8118753048) eGFR (test code = mL/min/1.73m2 7830503926) CHRISTINE (test code = CHRISTINE) Association of [...] tests). Lab Interpretation Abnormal (test code = 97470-5) [facility] WITH [id number] 09:01:30 Test Item Value Reference Range Interpretation Comments WBC (test code = See_Comment H [Automated 9190-2) message] The system which generated this result transmit cristhian reference range : 4.30 - 11.10 10*3/?L. The reference range was not used to interpret this result as normal/abnormal . RBC (test code = See_Comment [Automated 789-8) message] The system which generated this result [...] (test code = 52.1 fL 39.0-49.9 H 47948-2) RDW-CV (test code = 15.7 % 12.0-15.5 H 788-0) PLT (test code = See_Comment [Automated 777-3) message] The system which generated this result transmit cristhian reference range : 166 - 358 10*3/ ?L. The reference range was not u sed to interpret th is result as normal/abnormal . MPV (test code = 9.7 fL 9.5-12.9 05528-4) NRBC/100 WBC (test See_Comment [Automat ed code = 0840879992) message] The system which generated this result transmit cristhian reference range : 0.0 - 10.0 /100 WBCs. The reference range was not used to interpret this result as normal/abnormal . NRBC x10^3 (test code <0.01 See_Comment [Auto mated = 0637679699) message] The system which generated this result transmit cristhian reference range : 10*3/?L. The reference range was not used to interpret this result as normal/abnormal . GRAN MAT (NEUT) % 88.5 % (test code = 770-8) IMM GRAN % (test code 0.70 % = 0005081216) LYMPH % (test code = 3.1 % 736-9) MONO % (test code = 7.5 % 5905-5) EOS % (test code = 0.0 % 713-8) BASO % (test code = 0.2 % 706-2) GRAN MAT x10^3(ANC) 14.39 10*3/uL 1.88-7.09 H (test code = 8254572332) IMM GRAN x10^3 (test 0.12 10*3/uL 0.00-0.06 H code = 1365804568) LYMPH x10^3 (test code 0.50 10*3/uL 1.32-3.29 L = 731-0) MONO x10^3 (test code 1.22 10*3/uL 0.33-0.92 H = 742-7) EOS x10^3 (test code = <0.03 0.03-0.39 L 711-2) BASO x10^3 (test code 0.04 10*3/uL 0.01-0.07 = 704-7) Lab Interpretation Abnormal (test code = 58639-0) [facility] Whole [id number] 08:58:13 Test Item Value Reference Range Interpretation Comments LACTIC ACID (test code = 1.62 mmol/L 0.50-2.20 0720108940) Lab Interpretation (test code = Normal 30865-4) [facility]
[2022-08-10] MEDS ORDERED: MORPHINE 4 MG/ML SYR ONE (03:18)
[2022-08-10] MEDS ORDERED: ONDANSETRON 4 MG/2 ML VIAL ONE (03:19)
[2022-08-10] MEDS ORDERED: NA CHLORIDE 0.9% 500 ML ONE (03:19)
[2022-08-10 03:48] LABS: Absolute Lymphocytes (CBC) 0.6 K/uL (0.7-4.9); Hematocrit 40.1 % (36.0-45.0); Lymphocytes % 4.8 % (15.3-44.8); MCV 90.9 fL (80-100); MPV 7.9 fL (7.6-11.3)
[2022-08-10 04:21] LABS: ALT/SGPT 57 U/L (13-56); AST/SGOT 75 U/L (15-37); Albumin 3.4 g/dL (3.4-5.0); Alkaline Phosphatase 121 U/L (45-117); BUN Blood Urea Nitrogen 29 mg/dL (7-18); Bicarbonate 30 mmol/L (21-32); Bilirubin Total 0.2 mg/dL (0.2-1.0); Glomerular Filtration Rate 88 ml/min (=/>90); Glucose Level 109 mg/dL (74-106); Protein, Total 6.7 g/dL (6.4-8.2); Sodium Level 138 mmol/L (136-145)
[2022-08-10 04:23] LABS: Bilirubin Direct < 0.1 mg/dL (0-0.2)
[2022-08-10 04:27] LABS: Troponin High Sensitivity 10.2 pg/mL (<58.9)
--- NOTE | 2022-08-10 04:46 | EDPHYS ---
Physician Documentation [facility] Name: Elena Bruno Age: 72 yrs Sex: Female : 1950 Arrival Date: 08/10/2022 Time: 02:44 Bed 15 Private MD: ED Physician Clem Joseph HPI: 08/10 02:54 This 72 yrs old Female presents to ER via Unassigned with complaints of fall sp4 and right hip pain . 04:34 Very pleasant 72-year-old female with history of emphysema, chronic smoker, presents sp4 with acute fall and a right proximal hip pain, associated with angulation and deformity, patient states she fell accidentally backwards at home just prior to arrival, no additional pain or injury, patient states that she has chronic bilateral lower extremity edema. Historical: - Allergies: 03:06 No Known Allergies; jb4 - Home Meds: 03:06 Albuterol Inhl [Active]; Aspirin Oral [Active]; jb4 - PMHx: 03:06 Chronic obstructive lung disease; jb4 - PSHx: 03:06 Appendectomy; Total abdominal hysterectomy; jb4 - Immunization history:: Adult Immunizations up to date. - Social history:: Smoking status: Patient reports the use of cigarette tobacco products, smokes one-half pack cigarettes per day. - Immunization history: Last tetanus immunization: unknown. - Family history:: not pertinent. ROS: 04:36 Constitutional: Negative for fever, chills, and weight loss, Eyes: Negative for injury, sp4 pain, redness, and discharge, ENT: Negative for injury, pain, and discharge, Neck: Negative for injury, pain, and swelling, Cardiovascular: Negative for chest pain, palpitations, and edema, chronic chest wall deformity over the anterior chest Respiratory: Negative for shortness of breath, cough, wheezing, and pleuritic chest pain, Abdomen/GI: Negative for abdominal pain, nausea, vomiting, diarrhea, and constipation, Back: Negative for injury and pain, : Negative for injury, bleeding, discharge, and swelling, MS/Extremity: Negative for foot numbness, positive for right proximal thigh pain and deformity after fall, pain is moderate to severe, decreased range of motion right thigh and hip, not able to ambulate secondary to severe pain Skin: Negative for injury, rash, positive for bilateral lower leg edema and redness Neuro: Negative for headache, weakness, numbness, tingling, and seizure, Psych: Negative for depression, anxiety, suicide ideation, homicidal ideation, and hallucinations, Allergy/Immunology: Negative for hives, rash, and allergies, Endocrine: Negative for neck swelling, polydipsia, polyuria, polyphagia, and marked weight changes, Hematologic/Lymphatic: Negative for swollen nodes, abnormal bleeding, and unusual bruising. Exam: 04:36 Constitutional: This is a well developed, well nourished patient who is awake, alert, sp4 uncomfortable appearing frail elderly woman, chronic ill appearance, nontoxic, at this time patient nonambulatory secondary to severe pain in the right proximal thigh. Head/Face: Normocephalic, atraumatic. Eyes: Pupils equal round and reactive to light, extra-ocular motions intact. Lids and lashes normal. Conjunctiva and sclera are non-icteric and not injected. Cornea within normal limits. Periorbital areas with no swelling, redness, or edema. ENT: Nares patent. No nasal discharge, no septal abnormalities noted. Tympanic membranes are normal and external auditory canals are clear. Oropharynx with no redness, swelling, or masses, exudates, or evidence of obstruction, uvula midline. Mucous membranes moist. Neck: Trachea midline, no thyromegaly or masses palpated, and no cervical lymphadenopathy. Supple, full range of motion without nuchal rigidity, or vertebral point tenderness. No Meningismus. Chest/axilla: Normal chest wall appearance and motion. Nontender with no deformity. No lesions are appreciated. There is chronic appearing unusual anterior chest wall deformity patient states this is chronic Cardiovascular: Regular rate and rhythm with a normal S1 and S2. No gallops, murmurs, or rubs. Normal PMI, no JVD. No pulse deficits. Normal equal full peripheral pulses, chronic appearing bilateral lower extremity edema with pitting and venous stasis skin changes Respiratory: Lungs have equal breath sounds bilaterally, clear to auscultation and percussion. No rales, rhonchi or wheezes noted. No increased work of breathing, no retractions or nasal flaring. Abdomen/GI: Soft, non-tender, with normal bowel sounds. No distension or tympany. No guarding or rebound. No evidence of tenderness throughout. Back: No spinal tenderness. No costovertebral tenderness. Exam is limited secondary to nonambulatory status Female : Normal external genitalia. Skin: Warm, dry with normal turgor. Normal color with no rashes, no lesions, bilateral lower extremity venous stasis skin changes MS/ Extremity: Pulses equal, no cyanosis. Neurovascular intact. Right lower extremity - there is right proximal thigh deformity, moderate to severe pain, shortened and externally rotated right lower extremity, marked decreased over the range of motion. Otherwise normal examination Neuro: Awake and alert, GCS 15, oriented to person, place, time, and situation. Cranial nerves II-XII grossly intact. Motor strength 5/5 in all extremities. Sensory grossly intact. Cerebellar exam normal. Exam is limited secondary to signs of a right hip fracture Psych: Awake, alert, with orientation to person, place and time. Behavior, mood, and affect are within normal limits. 05:07 ECG was reviewed by the Attending Physician. KG done atNormal sinus rhythm at the rate sp4 of 72 EKG was done at 450 on morning, no ST elevation or depression, no ectopy, respiratory motion artifact, otherwise normal EKG Vital Signs: 03:04 BP 149 / 80; Pulse 75; Resp 20; Temp 97.9(O); Pulse Ox 100% on R/A; Weight 49.9 kg; jb4 Height 5 ft. 2 in. (157.48 cm); Pain 10/10; 04:00 BP 110 / 68; Pulse 64; Resp 18; Pulse Ox 93% on 3 lpm NC; jb4 05:00 BP 92 / 61; Pulse 76; Resp 16; Pulse Ox 95% on 3 lpm NC; jb4 06:00 BP 112 / 58; Pulse 77; Resp 19; Pulse Ox 99% on 4 lpm NC; jb4 03:04 Body Mass Index 20.12 (49.90 kg, 157.48 cm) jb4 David Coma Score: 04:00 Eye Response: spontaneous(4). Verbal Response: oriented(5). Motor Response: obeys jb4 commands(6). Total: 15. 05:00 Eye Response: spontaneous(4). Verbal Response: oriented(5). Motor Response: obeys jb4 commands(6). Total: 15. 06:00 Eye Response: spontaneous(4). Verbal Response: oriented(5). Motor Response: obeys jb4 commands(6). Total: 15. Trauma Score (Adult): 04:00 Eye Response: spontaneous(1); Verbal Response: oriented(1); Motor Response: obeys jb4 commands(2); Systolic BP: > 89 mm Hg(4); Respiratory Rate: 10 to 29 per min(4); David Score: 15; Trauma Score: 12 05:00 Eye Response: spontaneous(1); Verbal Response: oriented(1); Motor Response: obeys jb4 commands(2); Systolic BP: > 89 mm Hg(4); Respiratory Rate: 10 to 29 per min(4); Hannibal Score: 15; Trauma Score: 12 06:00 Eye Response: spontaneous(1); Verbal Response: oriented(1); Motor Response: obeys jb4 commands(2); Systolic BP: > 89 mm Hg(4); Respiratory Rate: 10 to 29 per min(4); Hannibal Score: 15; Trauma Score: 12 MDM: 03:36 Patient medically screened. [facility] 04:36 Differential diagnosis: contusion, fracture, laceration, multiple trauma, sprain, sp4 strain, Right hip fracture. Data reviewed: vital signs, nurses notes, EMS record, old medical records, lab test result(s), EKG, radiologic studies, plain films. ED course: X-rays revealed right proximal femur fracture with angulated intertrochanteric fracture of the right femur, patient warrants admission for right hip fixation, patient was discussed with admitting hospitalist and Dr. Elise with orthopedic surgery will be consulted in the morning. 08/10 02:55 Order name: Basic Metabolic Panel 4 08/10 02:55 Order name: CBC with Diff sp4 08/10 02:55 Order name: Type And Screen sp4 08/10 02:55 Order name: XRAY Chest (1 view) sp4 08/10 02:55 Order name: XRAY Pelvis sp4 08/10 02:55 Order name: Labs collected and sent; Complete Time: 04:11 4 08/10 02:55 Order name: Femur Right XRAY 4 08/10 02:57 Order name: Hepatic Function sp4 08/10 02:57 Order name: COVID-19 SARS RT PCR 4 08/10 02:57 Order name: Alcohol Level 4 08/10 02:57 Order name: Urinalysis sp4 08/10 02:57 Order name: Álvarez; Complete Time: 04:10 sp4 08/10 02:57 Order name: PROBNP sp4 08/10 02:57 Order name: Troponin HS sp4 08/10 02:57 Order name: CK sp4 08/10 03:49 Order name: CBC with Automated Diff; Complete Time: 04:12 EDMS 08/10 04:03 Order name: Alcohol Serum/Plasma; Complete Time: 04:12 EDMS 08/10 04:12 Order name: NPO; Complete Time: 04:44 la1 08/10 04:23 Order name: Basic Metabolic Panel; Complete Time: 04:27 EDMS 08/10 04:23 Order name: Liver (Hepatic) Function; Complete Time: 04:27 EDMS 08/10 04:27 Order name: Creatine Phosphokinase; Complete Time: 04:27 EDMS 08/10 04:27 Order name: Troponin High Sensitivity; Complete Time: 04:27 EDMS 08/10 04:27 Order name: NT PRO-BNP; Complete Time: 04:27 EDMS 08/10 04:28 Order name: Type and Screen; Complete Time: 04:28 EDMS 08/10 04:34 Order name: NPO; Complete Time: 04:44 sp4 08/10 04:36 Order name: EKG - Nurse/Tech; Complete Time: 04:55 sp4 08/10 04:36 Order name: SARS-COV-2 RT PCR; Complete Time: 04:46 EDMS 08/10 04:58 Order name: Urinalysis; Complete Time: 05:09 EDMS 08/10 05:10 Order name: ABO/RH no charge; Complete Time: 05:24 EDMS 08/10 08:38 Order name: US EDMS 08/10 10:40 Order name: Thyroid Stimulating Hormone EDMS 08/10 10:53 Order name: T4 Free EDMS EC:07 Rate is 72 beats/min. Rhythm is regular. QRS [place]orn[place] is Normal. NE interval is normal. QRS sp4 interval is normal. No ST changes noted. Clinical impression: No evidence of ischemia. Interpreted by me. Administered Medications: 03:47 Drug: Zofran (Ondansetron) 4 mg Route: IVP; Site: right forearm; jb4 04:20 Follow up: Response: No adverse reaction; Marked relief of symptoms jb4 03:48 Drug: morphine 4 mg Route: IVP; Infused Over: 4 mins; Site: right forearm; jb4 04:20 Follow up: Response: No adverse reaction; Marked relief of symptoms; Pain is decreased jb4 04:10 Drug: NS 0.9% 500 ml Route: IV; Rate: 100 ml/hr; Site: right forearm; jb4 07:45 Follow up: IV Status: Completed infusion; IV Intake: 500ml ke1 05:01 Drug: morphine 2 mg Route: IVP; Infused Over: 4 mins; Site: right forearm; jb4 05:30 Follow up: Response: No adverse reaction; Marked relief of symptoms; Pain is decreased jb4 05:01 Drug: Reglan (metoCLOPramide) 10 mg Route: IVP; Site: right forearm; jb4 05:30 Follow up: Response: No adverse reaction; Marked relief of symptoms jb4 Disposition Summary: 08/10/22 04:45 Hospitalization Ordered Hospitalization Status: Inpatient Admission sp4 Condition: Stable sp4 Problem: new sp4 Symptoms: are unchanged sp4 Bed/Room Type: Standard sp4 Provider: Ren Morales(08/10/22 05:24) [email or web address] Location: Telemetry/MedSurg (Inpatient)(08/10/22 10:56) ja Room Assignment: [facility](08/10/22 10:56) ja1 Diagnosis - Displaced intertrochanteric fracture of right femur sp4 - Tobacco use - Chronic tobacco use disorder, generalized physical debility sp4 Forms: - Medication Reconciliation Form sp4 - SBAR form sp4 Signatures: Dispatcher [employer] EDMS Blake Witt FNP-C LOCKER OPERATOR-Cla1 Cresencio Conrad RN RN jb4 Los Qureshi RN RN ja1 Jo Martin RN RN 1 Clem Joseph MD MD sp4 Ashleigh Islas RN ke1 Corrections: (The following items were deleted from the chart) 05:24 04:45 Denton Arriaga sp4 la1 05:55 04:45 Telemetry/MedSurg (Inpatient) sp4 vc1 05:55 04:45 sp4 vc1 10:56 05:55 [facility] ER HOLD vc1 ja1 10:56 05:55 ERHOLD- vc1 ja1
--- NOTE | 2022-08-10 04:46 | ER ---
Nurse's Notes [facility] Name: Elena Bruno Age: 72 yrs Sex: Female : 1950 Arrival Date: 08/10/2022 Time: 02:44 Bed 15 Private MD: Diagnosis: Displaced intertrochanteric fracture of right femur;Tobacco use-Chronic tobacco use disorder, generalized physical debility Presentation: 08/10 03:04 Chief complaint: EMS states: Pt tripped and fell into her counted hitting her right hip jb4 and then she fell onto her right hip. Pt will not straighten her hip, is on oxygen at home as needed and on q6h breathing treatment. Coronavirus screen: At this time, the client does not indicate any symptoms associated with coronavirus-19. Ebola Screen: No symptoms or risks identified at this time. Initial Sepsis Screen: Does the patient meet any 2 criteria? No. Patient's initial sepsis screen is negative. Does the patient have a suspected source of infection? Yes: Skin breakdown/wound. Risk Assessment: Do you want to hurt yourself or someone else? Patient reports no desire to harm self or others. Onset of symptoms was August 10, 2022. Transition of care: patient was not received from another setting of care. 03:04 Method Of Arrival: EMS: [facility] jb4 03:04 Acuity: FABBY 2 jb4 03:04 Care prior to arrival: None. Mechanism of Injury: Fall from standing position. Trauma jb4 event details: Injury occurred in the [facility]. Trauma Activation: Alert Physician: ED Physician; Name: Jake; Notified At: 02:43; Arrived At: 02:43 Physician: General Surgeon; Name: ; Notified At: 02:43; Arrived At: Physician: Radiology; Name: Kailee; Notified At: 02:43; Arrived At: 02:43 Physician: Respiratory; Name: ; Notified At: 02:43; Arrived At: Physician: Lab; Name: ; Notified At: 02:43; Arrived At: Historical: - Allergies: 03:06 No Known Allergies; jb4 - Home Meds: 03:06 Albuterol Inhl [Active]; Aspirin Oral [Active]; jb4 - PMHx: 03:06 Chronic obstructive lung disease; jb4 - PSHx: 03:06 Appendectomy; Total abdominal hysterectomy; jb4 - Immunization history:: Adult Immunizations up to date. - Social history:: Smoking status: Patient reports the use of cigarette tobacco products, smokes one-half pack cigarettes per day. - Immunization history: Last tetanus immunization: unknown. - Family history:: not pertinent. Screenin:17 Abuse screen: Denies threats or abuse. Tuberculosis screening: No symptoms or risk jb4 factors identified. 04:17 [facility] ED Fall Risk Assessment (Adult) History of falling in the last 3 months, jb4 including since admission No falls in past 3 months (0 pts) Confusion or Disorientation No (0 pts) Score/Fall Risk Level 0 - 2 = Low Risk Oriented to surroundings, Maintained a safe environment. Nutritional screening: No deficits noted. Primary Survey: 03:10 NO uncontrolled hemorrhage observed. A: The client is awake and alert. The airway is jb4 patent. Breathing/Chest: Spontaneous respiratory effort, equal unlabored respirations, breath sounds clear bilaterally, regular pattern, symmetrical chest rise and fall. Circulation: No external hemorrhage present. Regular and strong central pulse, skin warm/dry/normal color. Disability Pupils are equal, round, reactive to light and accommodation. Exposure/Environment: All clothing and personal items were removed. Forensic evidence collection is not deemed to be indicated at this time. Items placed in patient belonging bag. 04:10 Reassessment Alertness and Airway: Awake and alert. The airway is patent. Breathing: jb4 Spontaneous respiratory effort, equal unlabored respirations, breath sounds clear bilaterally, regular pattern with symmetrical chest rise and fall. Circulation: No external hemorrhage noted. Regular and strong central pulse, skin warm/dry/normal color. Disability: Pupils Pupils are equal, round, reactive to light and accomodation. Secondary Survey: 03:10 HEENT: No deficits noted. Gastrointestinal: No deficits noted. : No signs and/or jb4 symptoms were reported regarding the genitourinary system. Musculoskeletal: Range of motion: limited in right hip. Assessment: 03:10 General: Appears in no apparent distress. uncomfortable, Behavior is calm, cooperative, jb4 appropriate for age. Pain: Complains of pain in Right hip Pain does not radiate. Pain currently is 10 out of 10 on a pain scale. Neuro: Level of Consciousness is awake, alert, obeys commands, Oriented to person, place, time, situation. EENT: No signs and/or symptoms were reported regarding the EENT system. Cardiovascular: Patient's skin is warm and dry. Respiratory: Airway is patent Respiratory effort is even, unlabored, Respiratory pattern is regular, symmetrical. GI: No signs and/or symptoms were reported involving the gastrointestinal system. : No signs and/or symptoms were reported regarding the genitourinary system. Derm: Skin is pink, warm \T\ dry. Wounds noted to the left foot and right lower extremity. Musculoskeletal: Range of motion: limited in right hip right leg is shortened and externally rotated. 04:18 Reassessment: Patient appears in no apparent distress at this time. Patient and/or jb4 family updated on plan of care and expected duration. Pain level reassessed. Patient is alert, oriented x 3, equal unlabored respirations, skin warm/dry/pink. 05:15 Reassessment: Pt is resting in bed with eyes closed, respirations are even and jb4 unlabored with no s/s of pain or distress noted. 06:01 Reassessment: Patient appears in no apparent distress at this time. No changes from jb4 previously documented assessment. Patient and/or family updated on plan of care and expected duration. Pain level reassessed. Vital Signs: 03:04 BP 149 / 80; Pulse 75; Resp 20; Temp 97.9(O); Pulse Ox 100% on R/A; Weight 49.9 kg; jb4 Height 5 ft. 2 in. (157.48 cm); Pain 10/10; 04:00 BP 110 / 68; Pulse 64; Resp 18; Pulse Ox 93% on 3 lpm NC; jb4 05:00 BP 92 / 61; Pulse 76; Resp 16; Pulse Ox 95% on 3 lpm NC; jb4 06:00 BP 112 / 58; Pulse 77; Resp 19; Pulse Ox 99% on 4 lpm NC; jb4 03:04 Body Mass Index 20.12 (49.90 kg, 157.48 cm) jb4 David Coma Score: 04:00 Eye Response: spontaneous(4). Verbal Response: oriented(5). Motor Response: obeys jb4 commands(6). Total: 15. 05:00 Eye Response: spontaneous(4). Verbal Response: oriented(5). Motor Response: obeys jb4 commands(6). Total: 15. 06:00 Eye Response: spontaneous(4). Verbal Response: oriented(5). Motor Response: obeys jb4 commands(6). Total: 15. Trauma Score (Adult): 04:00 Eye Response: spontaneous(1); Verbal Response: oriented(1); Motor Response: obeys jb4 commands(2); Systolic BP: > 89 mm Hg(4); Respiratory Rate: 10 to 29 per min(4); David Score: 15; Trauma Score: 12 05:00 Eye Response: spontaneous(1); Verbal Response: oriented(1); Motor Response: obeys jb4 commands(2); Systolic BP: > 89 mm Hg(4); Respiratory Rate: 10 to 29 per min(4); Richmond Score: 15; Trauma Score: 12 06:00 Eye Response: spontaneous(1); Verbal Response: oriented(1); Motor Response: obeys jb4 commands(2); Systolic BP: > 89 mm Hg(4); Respiratory Rate: 10 to 29 per min(4); Richmond Score: 15; Trauma Score: 12 ED Course: 02:44 Patient arrived in ED. jb4 02:53 Clem Joseph MD is Attending Physician. sp4 03:03 Cresencio Conrad, RN is Primary Nurse. jb4 03:06 Triage completed. jb4 03:06 Arm band placed on right wrist. jb4 03:49 Alcohol Level Sent. jb4 03:49 COVID-19 SARS RT PCR Sent. jb4 03:49 Troponin HS Sent. jb4 03:49 PROBNP Sent. jb4 03:49 CK Sent. jb4 03:49 Hepatic Function Sent. jb4 03:49 Basic Metabolic Panel Sent. jb4 03:49 CBC with Diff Sent. jb4 03:49 Type And Screen Sent. jb4 04:17 Patient has correct armband on for positive identification. Bed in low position. Call jb4 light in reach. Side rails up X 1. 04:17 Oxygen administration via nasal cannula \T\ 3L/min. Thermoregulation: warm blanket given jb4 to patient. 04:18 Álvarez cath inserted, using sterile technique, 16 Fr., by sc, balloon inflated, to jb4 gravity drainage. 04:44 Denton Arriaga MD is Hospitalizing Provider. sp4 05:24 Ren Morales MD is Hospitalizing Provider. la1 06:02 No provider procedures requiring assistance completed. Patient admitted, IV remains in jb4 place. 07:46 Urinalysis Sent. ke1 Administered Medications: 03:47 Drug: Zofran (Ondansetron) 4 mg Route: IVP; Site: right forearm; jb4 04:20 Follow up: Response: No adverse reaction; Marked relief of symptoms jb4 03:48 Drug: morphine 4 mg Route: IVP; Infused Over: 4 mins; Site: right forearm; jb4 04:20 Follow up: Response: No adverse reaction; Marked relief of symptoms; Pain is decreased jb4 04:10 Drug: NS 0.9% 500 ml Route: IV; Rate: 100 ml/hr; Site: right forearm; jb4 07:45 Follow up: IV Status: Completed infusion; IV Intake: 500ml ke1 05:01 Drug: morphine 2 mg Route: IVP; Infused Over: 4 mins; Site: right forearm; jb4 05:30 Follow up: Response: No adverse reaction; Marked relief of symptoms; Pain is decreased jb4 05:01 Drug: Reglan (metoCLOPramide) 10 mg Route: IVP; Site: right forearm; jb4 05:30 Follow up: Response: No adverse reaction; Marked relief of symptoms jb4 Medication: 06:01 VIS not applicable for this client. jb4 Intake: 07:45 IV: 500ml; Total: 500ml. ke1 Output: 06:00 Urine: 100ml (Álvarez); Total: 100ml. jb4 Outcome: 04:45 Decision to Hospitalize by Provider. sp4 05:00 Admitted to ER Hold. Please see [facility] for further documentation. jb4 05:00 Condition: stable 05:00 Discharge instructions given to patient, family, Instructed on the need for admit, Demonstrated understanding of instructions. 05:00 Patient's length of stay in the Emergency Department was greater than 2 hours. Pt jb4 admitted to ER holdPatient's length of stay extended due to 11:43 Patient left the ED. ll1 Signatures: Blake Witt, ASPHALT PAVING MACHINE OPERATOR-C ASPHALT PAVING MACHINE OPERATOR-Cla1 Cresencio Conrad RN RN jb4 Lydia Mina RN RN ll1 Ashleigh Islas RN RN ke1 Clem Joseph MD MD sp4 Corrections: (The following items were deleted from the chart) 04:17 03:10 Musculoskeletal: Circulation, motion, and sensation intact. Range of motion: jb4 limited in right hip right leg is shortened and externally rotated. jb4
[2022-08-10] MEDS ORDERED: METOCLOPRAMIDE 10 MG/2mL INJ ONE (04:53)
[2022-08-10] MEDS ORDERED: MORPHINE 2 MG/ML SYR ONE (04:57)
[2022-08-10 04:58] LABS: Specific Gravity > 1.030 (1.005-1.030); Urine Bacteria <20 /HPF (<20); Urine Bilirubin NEGATIVE (Negative); Urine Blood Negative (Negative); Urine Clarity Clear (Clear); Urine Color Yellow (Yellow); Urine Glucose NEGATIVE (Negative); Urine Mucus Slight /HPF (None Seen); Urine Protein TRACE (Negative); Urine RBC <5 /HPF (None Seen); Urine Urobilinogen Normal (Normal)
--- NOTE | 2022-08-10 04:59 | P.HP ---
Certification for Inpatient Patient admitted to: Inpatient With expected LOS: >2 Midnights Patient will require the following post-hospital care: None Practitioner: I am a practitioner with admitting privileges, knowledge of patient current condition, hospital course, and medical plan of care. Services: Services provided to patient in accordance with Admission requirements found in Title 42 Section 412.3 of the Code of Federal Regulations Patient History Date of Service: 08/10/22 Reason for admission: Right hip fracture History of Present Illness: 72-year-old female with history of COPD on home O21 L, hypertension presents emergency department after sustaining a fall at home. She feels as if she lost her balance she denies any chest pain, palpitations, syncope, headache prior to fall. She was evaluated in the emergency department labs were significant for mild leukocytosis white blood cell count 12.8 mild elevations in AST/ALT/alk phos and CPK. X-rays performed revealed angulated intertrochanteric fracture of the right femur, severe narrowing of the right hip joint with moderate narrowing of the left hip joint, there are sclerotic changes in the right femoral head. Chest x-ray showed clear lungs it was noted that patient has been having issues with her right lower extremity at home for the past week or so with erythema, swelling noted to the area. Given cytosis, warmth on exam of the right lower extremity will place patient on antibioticsAncef for possible cellulitis of the right lower extremity. We will also need to obtain ultrasound of lower extremities to rule out DVT if patient can tolerate given her acute fracture. Allergies No Known Allergies Allergy (Unverified 12/08/20 19:49) Home Medications: Albuterol Inhaler [Ventolin Inhaler*] 2 puff IH Q6H 12/08/20 Anacin 300mg 1 tab PO TID 12/08/20 Albuterol Neb [Proventil 0.083% Neb Soln] 2.5 mg NEB [id number] PRN #120 amp 12/10/20 Ipratropium Neb [Atrovent*] 0.5 mg NEB [id number] #120 amp 12/10/20 Mometasone/Formoterol [Dulera 200 Mcg/5 Mcg Inhaler] 2 puff IH BID #1 inhaler 12/10/20 Nebulizer [Truneb Nebulizer] 1 each MC Q6H #1 each 12/10/20 levoFLOXacin [Levaquin*] 500 mg PO DAILY #5 tab 12/10/20 predniSONE [Prednisone*] 20 mg PO BID #10 tab 12/10/20 - Past Medical/Surgical History Diabetic: No -: COPDon home O2 -: Tobacco use -: Attention -: -: Appendectomy Psychosocial/ Personal History: Patient is at home, alone - Family History Mother -: Cancer - Social History Smoking Status: Current every day smoker Counseled patient to stop smoking for: less than 10 minutes Smoking therapy provided: No (Patient declined) Alcohol use: No CD- Drugs: No Caffeine use: Yes Place of Residence: Home Review of Systems 10-point ROS is otherwise unremarkable Musculoskeletal: Other (Right hip pain) Physical Examination - Physical Exam General: Alert, In no apparent distress, Oriented x3 HEENT: Atraumatic, PERRLA, Mucous membr. moist/pink, EOMI, Sclerae nonicteric Neck: Supple, 2+ carotid pulse no bruit, No LAD, Without JVD or thyroid abnormality Respiratory: Clear to auscultation bilaterally, Normal air movement Cardiovascular: Regular rate/rhythm, Normal S1 S2, Edema (Plus edema bilateral lower extremities) Capillary refill: <2 Seconds Gastrointestinal: Normal bowel sounds, No tenderness Musculoskeletal: Other (Leg externally rotated, shortened, erythematous below the knee with warmth to touch.) Integumentary: No rashes Neurological: Normal speech, Normal strength at 5/5 x4 extr, Normal tone, Normal affect - Studies Laboratory Data (last 24 hrs) 08/10/22 03:30: WBC 12.80 H, Hgb 13.2, Hct 40.1, Plt Count 239 08/10/22 03:30: Sodium 138, Potassium 4.0, BUN 29 H, Creatinine 0.72, Glucose 109 H, Total Bilirubin 0.2, AST 75 H, ALT 57 H, Alkaline Phosphatase 121 H Assessment and Plan - Plan Assessment: Right intertrochanteric femur fracture Concern for possible cellulitis right lower extremity COPD on home O21 L Hypertension Plan: Right intertrochanteric femur fracture NPO, orthopedic consult, Álvarez catheter inserted, as needed pain medications. Concern for possible cellulitis right lower extremity Continue Ancef, will obtain ultrasound to rule out DVT. COPD on home O21 L Continue supplemental oxygen, as needed nebulizer treatments. Hypertension Continue home medications as appropriate. DVT PPX: SCD Code status: Full Discharge Plan: Home Plan to discharge in: 48 Hours - Advance Directives Does patient have a Living Will: No Does patient have a Durable POA for Healthcare: No - Code Status/Comfort Care Code Status Assessed: Yes (Full code) Critical Care: No Time Spent Managing Pts Care (In Minutes): 70
[2022-08-10 06:06] VITALS: BMI 20.1
[2022-08-10] MEDS ORDERED: ONDANSETRON 4 MG/2 ML VIAL IV PRN (06:10)
[2022-08-10] MEDS ORDERED: D5 0.45 NS 1,000 ML IV SCH (06:10)
[2022-08-10] MEDS ORDERED: D5 0.45 NS 1,000 ML IV ONE (06:48)
--- NOTE | 2022-08-10 08:38 | RAD REPORT ---
[facility] DES[facility] 7:47 am CLINICAL HISTORY: Right leg pain COMPARISON: None. FINDINGS: Right common femoral, superficial femoral, greater saphenous, popliteal and right posterio r tibial veins are compressible and demonstrate augmentation. Doppler demonstrates good flow. Grayscale, color and spectral analysis performed on all vessels IMPRESSION: No evidence of deep venous thrombosis involving the right lower extremity.
[2022-08-10] MEDS: ALBUTEROL 2.5 MG/3 ML NEB SOL NEB SCH ×3 (08:45→19:40)
[2022-08-10] MEDS ORDERED: ALBUTEROL 2.5 MG/3 ML NEB SOL ONE (08:45)
[2022-08-10] MEDS: CEFAZOLIN 1 GM in NA CHLORIDE 0.9% 50 ML IVPB SCH ×2 (09:00→16:23)
[2022-08-10] MEDS ORDERED: NA CHLORIDE 0.9% 100 ML ONE (09:22)
[2022-08-10] MEDS ORDERED: CEFAZOLIN SODIUM 1 GM/VIAL ONE (09:22)
[2022-08-10] MEDS ORDERED: METHYLPREDNISOLONE 40 MG INJ IV ONE (10:15)
[2022-08-10] MEDS ORDERED: ENOXAPARIN 30 MG/0.3 ML SQ ONE ×2 (10:15→10:21)
[2022-08-10] MEDS ORDERED: METHYLPREDNISOLONE 40 MG INJ ONE (10:20)
[2022-08-10] MEDS: D5 0.45 NS 1,000 ML IV SCH (10:28)
[2022-08-10 10:40] LABS: Thyroid Stimulating Hormone 14.4 uIU/mL (0.358-3.740)
--- NOTE | 2022-08-10 11:43 | P.PN ---
Subjective Date of Service: 08/10/22 Chief Complaint: Right hip fracture Subjective: Working w/ PT (awaiting path from ramngs of femur hgb decreased to 8.2), Demented (fairly severe dementia episode last pm) Physical Examination - Vital Signs Temperature: 98.1 F Blood Pressure: 112/64 Pulse: 74 Respirations: 20 Pulse Ox (%): 98 - Studies Laboratory Data (last 24 hrs) 08/10/22 03:30: WBC 12.80 H, Hgb 13.2, Hct 40.1, Plt Count 239 08/10/22 03:30: Sodium 138, Potassium 4.0, BUN 29 H, Creatinine 0.72, Glucose 109 H, Total Bilirubin 0.2, AST 75 H, ALT 57 H, Alkaline Phosphatase 121 H
--- NOTE | 2022-08-10 11:53 | PN ---
Date of Progress Note: 08/10/2022 Subjective: The patient was seen this morning as hospitalist team. I was requested by our hospitalist team to take over this patient's care and last night she was admitted by hospitalist service. I have reviewed current hospital record. I have communicated with the patient's care provider initially in the emergency room and subsequently I came back and communicated with the patient's daughter who arrived in the emergency room as well. The patient lives at home and she fell down yesterday and was brought into emergency room and was admitted to the hospital with right hip fracture. The patient has severe COPD and she uses home oxygen and she continues to smoke. The patient does not provide any details as she was sleeping after the dose of pain medication. Physical Examination: HEENT: Unremarkable. Lungs: Bilateral scattered wheezing. Not using any accessory muscles of respiration. Heart: Sounds normal. Presence of systolic murmur, more like a pansystolic murmur. No gallop. Abdomen: Soft. Bowel sounds normal. No guarding, rigidity, tenderness, distention. Extremities: The patient has brownish discoloration of both lower extremities from knee all the way down to her toes and there is some erythematous skin in the right leg with very faint warmness to touch. The patient also has superficial abrasion to her left dorsum foot and left medial malleolar. There is no discharge, no bleeding. Her peripheral pulses, unable to feel dorsalis pedis or posterior tibial artery pulsation on both legs. The patient also has trace leg edema. Laboratory Data: Reviewed. X-rays reviewed. Impression: 1. Right hip fracture. 2. Severe chronic obstructive pulmonary disease, oxygen dependent. 3. Peripheral vascular disease. 4. Heart murmur. 5. Abnormal EKG. Plan: The patient was admitted to the hospital. We will go ahead and continue to follow up with orthopedic surgeon, Dr. Elise and I did communicate with him 2 times today. He was planning to do surgery today, but I have requested him to cancel surgery today and we need to optimize her medical condition and obtain necessary consultation and testing, so surgery will not be done today and he will plan to do surgery during later part of tomorrow if we get cardiac and pulmonary clearance. I have ordered echo with Doppler for tomorrow. I have communicated details with nurses medical assistants phlebotomists, Dr. Friedman and requested his assistance for preop clearance. We will continue nebulizer treatment, albuterol and add Atrovent nebulizer treatment and also start her on Solu-Medrol 40 mg IV q.12 hours, first dose this morning. For her abnormal EKG which is showing nonspecific ST-T changes and presence of peripheral vascular disease and significant heart murmur, we will need a cardiac consultation and cardiac clearance prior to surgery and I have requested Cardiology consultation as well. We will continue IV fluid, but reduce rate to 50 cc/hour, regular diet will be given today, and we will keep her n.p.o. after midnight. We will repeat troponin level this morning along with TSH. Her initial troponin was normal. Continue empiric antibiotic which is cefazolin for possible cellulitis of the right leg. We will give 1 dose of Lovenox which is 30 mg subcutaneous injection x1 dose this morning for DVT prophylaxis. Continue current morphine and Zofran for pain control and nausea. I did communicate with the patient's daughter regarding all the details and also risk involved with the surgery including possibility of any cardiac complications or respiratory complications. We discussed code status and the patient is full code according to what the daughter has informed me. I will see her tomorrow for followup. STEVE/MODL Voice ID: [id number] Report ID: [id number] MTDCarley
--- NOTE | 2022-08-10 11:56 | RAD REPORT ---
EXAM DESCRIPTION: US - Lower Extremity Arterial Bilat - 08/10/2022 11:35 am CLINICAL HISTORY: Leg pain/peripheral vascular disease COMPARISON: None FINDINGS: Right common femoral, superficial femoral and popliteal arteries demonstrate monophasic waveforms The right posterior tibial and dorsalis pedis arteries demonstrate monophasic waveforms The left common femoral, superficial femoral and popliteal arteries demonstrate monophasic waveforms The left posterior tibial and dorsalis pedis arteries demonstrate monophasic waveforms No occlusion noted Grayscale, color and spectral analysis performed on all vessels IMPRESSION: Monophasic waveforms throughout the arteries of the legs bilaterally may indicate aorto bi-iliac disease
[2022-08-10] MEDS: MORPHINE 2 MG/ML SYR IV PRN ×2 (12:06→20:20)
--- NOTE | 2022-08-10 14:23 | CON ---
Reason For Consultation: Right intertrochanteric hip fracture. History Of Present Illness: Ms. Bruno is a 72-year-old woman with past medical problems including C OPD, undiagnosed cardiac disease, peripheral vascular disease, heavy smoker, who presented with a rig ht intertrochanteric hip fracture and hip that had significant degenerative disease prior to her fall . The fracture pattern is a two-part intertrochanteric, possibly 3 and she will need intramedullary rodding. Her medical condition needs a day or so of optimization prior to proceeding to the operativ e suite. She was scheduled for surgery, hopefully tomorrow, 08/11/2022. Right now, she is stable an d will be optimized as best as possible. DEDE/JUSTIN Voice ID: [id number] Report ID: [id number]
[2022-08-10] MEDS: IPRATROPIUM BROM 0.5MG/2.5ML NEB SCH ×2 (14:38→19:40)
[2022-08-10] MEDS ORDERED: LEVOTHYROXINE SOD 0.075 MG TAB PO ONE (15:30)
--- NOTE | 2022-08-10 17:20 | P.CNS ---
Date of Consult: 08/10/22 Reason for Consult: COPD Chief Complaint: Right femur fracture History of Present Illness: Patient is 72 years of age with a history of COPD on home O2 apparently had a fall fractured her femur ended up here in the emergency room currently she is receiving some pain medication in response seen by orthopedics apparently she takes Symbicort at home active smoker Allergies No Known Allergies Allergy (Unverified 12/08/20 19:49) Home Medications: Albuterol Sulfate [Albuterol Sulfate Hfa] 2 puff IH Q4HP PRN 08/10/22 Budesonide/Formoterol Fumarate [Symbicort 160-4.5 Mcg Inhaler] 1 puff IH BID 08/10/22 Levothyroxine Sodium 1 tab PO [id number] 08/10/22 Lisinopril [Zestril] 10 mg PO DAILY 08/10/22 Metoprolol Succinate [Toprol Xl] 50 mg PO DAILY 08/10/22 Mirtazapine 30 mg PO BEDTIME 08/10/22 - Past Medical/Surgical History Diabetic: No -: COPDon home O2 -: Tobacco use -: Attention -: -: Appendectomy Psychosocial/ Personal History: Patient is at home, alone - Family History Mother Medical History: Cancer - Social History Smoking Status: Current every day smoker Alcohol use: No CD- Drugs: No Caffeine use: Yes Place of Residence: Home Review of Systems is unable to be obtained Physical Examination Temp Pulse Resp BP Pulse Ox 97.2 F 87 16 105/59 L 91 08/10/22 16:00 08/10/22 16:00 08/10/22 16:00 08/10/22 16:00 08/10/22 16:00 General: Unresponsive Respiratory: Clear to auscultation bilaterally, Diminished Cardiovascular: No edema, Normal S1 S2, Other (Poor peripheral pulses), Systolic murmur Gastrointestinal: Normal bowel sounds, Soft and benign Laboratory Data (last 24 hrs) 08/10/22 03:30: WBC 12.80 H, Hgb 13.2, Hct 40.1, Plt Count 239 08/10/22 03:30: Sodium 138, Potassium 4.0, BUN 29 H, Creatinine 0.72, Glucose 109 H, Total Bilirubin 0.2, AST 75 H, ALT 57 H, Alkaline Phosphatase 121 H - Problems (1) COPD (chronic obstructive pulmonary disease) Current Visit: Yes Status: Acute Plan: Patient is 72 years of age with a history of COPD admitted with a fall fracture of the right femur plan to clear for surgery currently she is stable she is 93% on 2-1/2 L of oxygen patient has a systolic murmur peripheral vascular disease abnormal liver function test mildly elevated TSH no fever chest x-ray shows COPD change patient is currently on steroids and nebulizers echocardiogram ordered Qualifiers: COPD type: unspecified COPD Qualified Code(s): J44.9 - Chronic obstructive pulmonary disease, unspecified
[2022-08-10] MEDS: METHYLPREDNISOLONE 40 MG INJ IV SCH (20:21)
[2022-08-10] MEDS: MIRTAZAPINE 15 MG TAB PO SCH ×2 (20:21→20:26)
[2022-08-10] MEDS: DULERA 200/5 (MOMETASONE/FORMOTEROL) INHALER IH SCH ×2 (20:21→20:31)
[2022-08-11] MEDS: CEFAZOLIN 1 GM in NA CHLORIDE 0.9% 50 ML IVPB SCH ×3 (01:01→17:00)
[2022-08-11] MEDS: ALBUTEROL 2.5 MG/3 ML NEB SOL NEB SCH ×4 (01:50→20:15)
[2022-08-11] MEDS: IPRATROPIUM BROM 0.5MG/2.5ML NEB SCH ×4 (01:50→20:15)
[2022-08-11] MEDS: MORPHINE 2 MG/ML SYR IV PRN ×3 (02:34→12:51)
[2022-08-11] MEDS ORDERED: MORPHINE 2 MG/ML SYR IV ONE (03:52)
[2022-08-11] MEDS: METOPROLOL XL 25 MG TAB PO SCH (06:00)
[2022-08-11] MEDS: LEVOTHYROXINE SOD 0.1 MG TAB PO SCH (06:30)
[2022-08-11] MEDS: D5 0.45 NS 1,000 ML IV SCH (06:42)
[2022-08-11 06:52] LABS: Absolute Lymphocytes (CBC) 0.6 K/uL (0.7-4.9); Hematocrit 34.9 % (36.0-45.0); Lymphocytes % 6.2 % (15.3-44.8); MCV 91.4 fL (80-100); RBC Red Blood Cell Count 3.82 M/uL (3.86-4.86)
[2022-08-11 07:12] LABS: Albumin 2.8 g/dL (3.4-5.0); Bilirubin Total 0.2 mg/dL (0.2-1.0); Potassium 4.3 mmol/L (3.5-5.1); Protein, Total 5.8 g/dL (6.4-8.2); Troponin High Sensitivity 20.7 pg/mL (<58.9)
[2022-08-11] MEDS: METHYLPREDNISOLONE 40 MG INJ IV SCH ×2 (08:41→20:57)
[2022-08-11] MEDS: DULERA 200/5 (MOMETASONE/FORMOTEROL) INHALER IH SCH ×2 (08:42→21:00)
--- NOTE | 2022-08-11 10:12 | RAD REPORT ---
EXAM DESCRIPTION: RAD - Femur Right - 08/10/2022 3:46 am CLINICAL HISTORY: PAIN Femur Right COMPARISON: None. TECHNIQUE: XR FEMUR 2 VIEWS 08/10/2022 2:55 AM PROGRAM REP FINDINGS: Suspected right femur fracture is poorly seen on this study. There is severe narrowing of the right hip joint. Soft tissues are unremarkable. IMPRESSION: No acute osseous findings. Electronically signed by: Julián Sutherland MD 08/10/2022 3:59 AM PROGRAM REP Due to temporary technical issues with the PACS/Fluency reporting system, reports are being signed by the in house radiologists without review as a courtesy to insure prompt reporting. The interpreting radiologist is fully responsible for the content of the report.
--- NOTE | 2022-08-11 10:22 | RAD REPORT ---
EXAM DESCRIPTION: RAD - Pelvis - 08/10/2022 3:46 am CLINICAL HISTORY: PAIN Femur Right COMPARISON: None. TECHNIQUE: XR FEMUR 2 VIEWS 08/10/2022 2:55 AM AIR BRAKE OPERATOR FINDINGS: Suspected right femur fracture is poorly seen on this study. There is severe narrowing of the right hip joint. Soft tissues are unremarkable. IMPRESSION: No acute osseous findings. Electronically signed by: Julián Sutherland MD 08/10/2022 3:59 AM AIR BRAKE OPERATOR Due to temporary technical issues with the PACS/Fluency reporting system, reports are being signed by the in house radiologists without review as a courtesy to insure prompt reporting. The interpreting radiologist is fully responsible for the content of the report.
--- NOTE | 2022-08-11 10:25 | RAD REPORT ---
EXAM DESCRIPTION: RAD - Chest Single View - 08/10/2022 3:46 am CLINICAL HISTORY: PAIN COMPARISON: None. TECHNIQUE: XR CHEST 1 VIEW 08/10/2022 2:55 AM SEWER CLEANER FINDINGS: Cardiac silhouette is normal in size. Lungs are clear without consolidation, atelectasis, mass or edema. There is no pleural effusion. There is no pneumothorax. There are no acute osseous fin dings. IMPRESSION: Clear lungs. Electronically signed by: Julián Sutherland MD 08/10/2022 3:58 AM SEWER CLEANER Due to temporary technical issues with the PACS/Fluency reporting system, reports are being signed by the in house radiologists without review as a courtesy to insure prompt reporting. The interpreting radiologist is fully responsible for the content of the report.
[2022-08-11] MEDS ORDERED: Ringers Lactate 1,000 ML IV ONE (16:22)
--- NOTE | 2022-08-11 16:41 | EKG ---
Test Date: 2022-08-10 Test Time: 04:50:30 Ice Maker: RV MEASUREMENT RESULTS: Intervals: Rate: 62 ME: 158 QRSD: 88 QT: 418 QTc: 424 [place]: P: 73 ME: 158 QRS: 85 T: 74 INTERPRETIVE STATEMENTS: Normal sinus rhythm with sinus arrhythmia Cannot rule out Anterior infarct, age undetermined Abnormal ECG Compared to ECG 03/08/2022 16:49:13 No significant changes Electronically Signed On 08-11-22 16:37:34 DRIVE MAN by Reed Herrera
[2022-08-11] MEDS ORDERED: LIDOCAINE 2% MPF 5 ML VIAL ONE (17:44)
[2022-08-11] MEDS ORDERED: FENTANYL CITR 100 MCG/2 ML ONE (17:44)
[2022-08-11] MEDS ORDERED: propofoL 200 MG/20 ML VIAL IV ONE (17:44)
[2022-08-11] MEDS ORDERED: ONDANSETRON 4 MG/2 ML VIAL ONE (17:45)
[2022-08-11] MEDS ORDERED: KETOROLAC 30 MG/ML INJ ONE (17:45)
[2022-08-11] MEDS ORDERED: dexAMETHasone 10 MG/ML VIAL ONE (17:45)
[2022-08-11] MEDS ORDERED: Phenylephrine HCl 10 MG/ML 1 ML VIAL ONE (17:47)
[2022-08-11] MEDS ORDERED: ALBUTEROL 2.5 MG/3 ML NEB SOL ONE (19:27)
[2022-08-11] MEDS ORDERED: MORPHINE 4 MG/ML SYR ONE (19:45)
--- NOTE | 2022-08-11 20:03 | RAD REPORT ---
EXAM DESCRIPTION: RAD - Pelvis - 08/11/2022 7:43 pm CLINICAL HISTORY: Femoral fracture FINDINGS: Compression screw and intramedullary loyda affix a femoral fracture No dislocation Marked osteoarthritis right hip
--- NOTE | 2022-08-11 20:11 | RAD REPORT ---
EXAM DESCRIPTION: - Hip in OR Right 1 View - 08/11/2022 8:02 pm CLINICAL HISTORY: Femoral fracture FINDINGS: Thirty-eight intraoperative fluoroscopic spot images obtained. Fluoroscopy time 2.1 minute Compression screw and intramedullary rods place into right femur affixing a fracture. Surgery performed by Dr. Elise
--- NOTE | 2022-08-11 20:47 | CON ---
Date of Consultation: 08/11/2022 Reason For Consultation: Preop assessment before right hip surgery. History Of Present Illness: A 72-year-old female with COPD, on home oxygen; history of hypertension, presented after she lost her balance and sustained a ground-level fall, fracture of the right hip. I was asked to evaluate the cardiac preop risk. The patient does not have any history of coronary ar emmanuel disease and there was no active chest pain. However, she has significant COPD, on oxygen at [facility] and has severe pain in the right hip. Past Medical History: COPD, on home oxygen; active smoker, and hypertension. Medications: Refer to reconciliation sheet for detailed list. Allergies: NO KNOWN DRUG ALLERGIES. Family History: No premature coronary artery disease or cancer. Social History: She is an active smoker. Does not drink. Does not use any drugs. Review of Systems: All systems reviewed and they are all negative except mentioned in HPI. Physical Examination: Vital Signs: Reviewed. Head and Neck: Pupils are equal, reactive to light. Intact eye movements. No JVD. No cervical lym phadenopathy. Neck: Supple. Thyroid is not enlarged. Lungs: Diffuse wheezing bilaterally with decreased breathing sounds. No accessory muscle use or mus anny retraction. Heart: Regular rate and rhythm. No extra sounds. Abdomen: Soft, nontender. Bowel sounds positive. No organomegaly. No masses or hernia. No rigidi ty or rebound. Extremities: No clubbing or cyanosis. Intact pulses. Skin: No rashes. Neurologic: Alert, awake, and oriented x3. No acute focal deficits appreciated. Investigations: BUN 26 and creatinine 0.672. Troponins are negative and hemoglobin is 11.5. Assessment/recommendations: 1.Cardiac preoperative risk assessment. The patient has advanced chronic obstructive pulmonary dise ase and she is a smoker, which puts her at higher cardiac risk for any surgery and I am not able to e valuate her exercise capacity very well as she is limited due to the significant chronic obstructive pulmonary disease. However, the nature of this issue is rather emergent and no further cardiac angel p will be recommended prior to the surgery to proceed and we will monitor the patient postoperatively . 2.Advanced chronic obstructive pulmonary disease, on home oxygen. She was counseled to quit. 3.Hypertension. Blood pressure is acceptable. Thank you for the consult. /JUSTIN Voice ID: [id number] Report ID: [id number]
[2022-08-11] MEDS: MIRTAZAPINE 15 MG TAB PO SCH (21:00)
[2022-08-12] MEDS: CEFAZOLIN 1 GM in NA CHLORIDE 0.9% 50 ML IVPB SCH ×3 (00:28→16:27)
--- NOTE | 2022-08-12 00:44 | PN ---
Date of Progress Note: 08/11/2022 Subjective: The patient was seen this morning for followup. She was lying in bed, not in distress. She was awake, alert, answering questions appropriately this morning, not in respiratory distress. Objective: Vital Signs: Reviewed. HEENT Examination: Unremarkable. Lungs: Clear to auscultation. No wheezing. No rales. Not using any accessory muscles of respirati on. Heart: Sounds normal. Abdomen: Soft, bowel sounds normal. No guarding, rigidity, tenderness, distention. Extremities: No leg edema. Laboratory Data: White count 10.10, hemoglobin 11.5, platelets 213. Sodium 138, potassium 4.3, chlo ride 105, bicarb 32, BUN 26, creatinine 0.67, glucose 121, AST 67. Rest of the liver function tests are normal. Impression: 1.Right hip fracture. 2.Severe chronic obstructive pulmonary disease, oxygen dependent. 3.Peripheral vascular disease. 4.Heart murmur. 5.Anemia, unspecified. Plan: We will go ahead and continue current medication. Continue oxygen, steroid nebulizer treatmen t. Continue current pain medication. The patient will have right hip surgery after getting cardiac and pulmonary clearance. Details and plan of treatment discussed with her. We will see her tomorrow for followup. STEVE/MODL Voice ID: [id number] Report ID: [id number]
[2022-08-12] MEDS: IPRATROPIUM BROM 0.5MG/2.5ML NEB SCH ×4 (01:35→20:45)
[2022-08-12] MEDS: ALBUTEROL 2.5 MG/3 ML NEB SOL NEB SCH ×4 (01:35→20:45)
--- NOTE | 2022-08-12 02:23 | OP ---
Surgeon: Kirk Elise MD Unit Supervisor: ANTHONY Roger Preoperative Diagnosis: Right intertrochanteric femur fracture. Postoperative Diagnosis: Right intertrochanteric femur fracture. Procedure Performed: Rodding right intertrochanteric hip fracture. Complications: None. Disposition: To recovery room, stable. Procedure In Detail: The patient was taken to the operative suite, placed in supine position, and in duced anesthesia. The right hip was prepped and draped in usual sterile fashion and suspended on fra cture table. All technique utilized to create an entry portal for guided tip guidewire into the subc hondral bone for the femoral head measuring 90. Single stage reaming was performed. Distal interloc kim was screw. Virtually anatomic reduction was realized. The patient tolerated procedu re well and is being reversed from anesthesia. DEDE/JUSTIN Voice ID: [id number] Report ID: [id number]
[2022-08-12 03:36] LABS: Absolute Lymphocytes (CBC) 0.2 K/uL (0.7-4.9); Hematocrit 30.5 % (36.0-45.0); Lymphocytes % 2.4 % (15.3-44.8); MCV 91.3 fL (80-100); RBC Red Blood Cell Count 3.34 M/uL (3.86-4.86)
[2022-08-12 04:14] LABS: Blood Morphology Comment NOT SEEN (NOT SEEN); Platelet Estimate ADEQ
[2022-08-12] MEDS: LEVOTHYROXINE SOD 0.1 MG TAB PO SCH (05:54)
[2022-08-12] MEDS: METOPROLOL XL 25 MG TAB PO SCH (05:54)
[2022-08-12] MEDS ORDERED: NA CHLORIDE 0.9% 250 ML IV ONE (07:18)
[2022-08-12] MEDS ORDERED: METOPROLOL XL 25 MG TAB PO SCH (07:19)
[2022-08-12] MEDS ORDERED: MAGNESIUM HYDROXIDE 8% 30 ML PO PRN (07:21)
[2022-08-12] MEDS: DULERA 200/5 (MOMETASONE/FORMOTEROL) INHALER IH SCH ×2 (08:07→20:09)
[2022-08-12] MEDS: DOCUSATE NA 100 MG CAP PO SCH ×2 (08:07→20:01)
[2022-08-12] MEDS: predniSONE 20 MG TAB PO SCH ×2 (08:07→20:01)
[2022-08-12] MEDS: HYDROCODONE/APAP 5/325 MG TAB PO PRN ×4 (09:15→20:02)
--- NOTE | 2022-08-12 17:44 | P.PN ---
Subjective Date of Service: 08/12/22 Chief Complaint: Right femur fracture Physical Examination - Vital Signs Temperature: 98.4 F Blood Pressure: 133/68 Pulse: 73 Respirations: 20 Pulse Ox (%): 90
--- NOTE | 2022-08-12 18:02 | P.PN ---
Subjective Date of Service: 08/12/22 Chief Complaint: Right femur fracture Subjective: No C/O voiced Review of Systems 10-point ROS is otherwise unremarkable Physical Examination - Vital Signs Temperature: 98.4 F Blood Pressure: 133/68 Pulse: 73 Respirations: 20 Pulse Ox (%): 90 - Physical Exam Musculoskeletal: Other (dressings C/D/I) Assessment And Plan - Current Problems (Diagnosis) (1) Intertrochanteric fracture of right femur Onset Date: ~08/10/22 Current Visit: Yes Status: Acute Qualifiers: Encounter type: initial encounter Fracture type: closed Fracture alignment: displaced Qualified Code(s): S72.141A - Displaced intertrochanteric fracture of right femur, initial encounter for closed fracture - Plan s/p right femur intramedullarry nailing for a right intertrochanteric fracture POD1, doing well. she will be touchdown weight baring only for 6 weeks, she will need help at an inpatient rehab or [facility], we will see her back in the office 2 weeks postop, she will need 28 days of dvt prophylaxis and pain medication. Discharge Plan: Transfer Plan to discharge in: 24 Hours
--- NOTE | 2022-08-12 20:10 | PN ---
Date of Progress Note: 08/12/2022 Subjective: The patient was seen this morning for followup. She was lying in bed, not in distress. Denies any new complaints. Vital signs reviewed. She had her surgery done yesterday for right hip fracture. This morning; her last blood pressure was 99/65, pulse 81, oxygen saturation 98% on nasal cannula oxygen. Physical Examination: HEENT: Unremarkable. Lungs: Clear to auscultation. No wheezing. No rales. Not using any accessory muscles of respirati on. Heart: Sounds normal. Abdomen: Soft. Bowel sounds normal. No guarding, rigidity, tenderness, distention. Extremities: No leg edema. Laboratory Data: This morning; white count 10.4, hemoglobin 10.1, and platelet count 189. Impression: 1.Right hip fracture. 2.Chronic obstructive pulmonary disease, severe, on oxygen replacement therapy. 3.Peripheral vascular disease. 4.Anemia, unspecified. 5.Hypotension. Plan: We will go ahead and repeat blood work tomorrow morning. We will give 1 dose of IV fluid bolu s 250 cc of normal saline. We will hold metoprolol if systolic blood pressure less than 120 and disc ontinue IV Solu-Medrol and start oral prednisone 20 mg daily per order. Start the patient on stool s oftener, Colace 100 mg 2 times a day and milk of magnesia 30 cc daily as needed for constipation. We will request inpatient rehab to evaluate the patient to see if she would qualify to go to inpatient rehab therapy or not. Continue current pain medication per order. I will see her tomorrow for followup. STEVE/MODL Voice ID: [id number] Report ID: [id number]
[2022-08-12] MEDS: MIRTAZAPINE 15 MG TAB PO SCH (22:43)
[2022-08-12] MEDS: MORPHINE 2 MG/ML SYR IV PRN (23:23)
[2022-08-13] MEDS: CEFAZOLIN 1 GM in NA CHLORIDE 0.9% 50 ML IVPB SCH ×3 (01:50→17:10)
[2022-08-13] MEDS: MORPHINE 2 MG/ML SYR IV PRN ×2 (01:51→10:34)
[2022-08-13] MEDS: ALBUTEROL 2.5 MG/3 ML NEB SOL NEB SCH ×4 (02:15→20:10)
[2022-08-13] MEDS: IPRATROPIUM BROM 0.5MG/2.5ML NEB SCH ×4 (02:15→20:10)
[2022-08-13] MEDS: LEVOTHYROXINE SOD 0.1 MG TAB PO SCH (05:49)
[2022-08-13 06:10] LABS: Absolute Lymphocytes (CBC) 0.8 K/uL (0.7-4.9); Hematocrit 32.7 % (36.0-45.0); Lymphocytes % 7.8 % (15.3-44.8); MCV 91.7 fL (80-100); MPV 7.7 fL (7.6-11.3); RBC Red Blood Cell Count 3.57 M/uL (3.86-4.86)
[2022-08-13 06:23] LABS: Magnesium 2.2 mg/dL (1.6-2.4); Potassium 4.3 mmol/L (3.5-5.1)
--- NOTE | 2022-08-13 06:57 | ECHO ---
HEIGHT: 5 ft 2 in WEIGHT: 110 lb 0 oz DATE OF STUDY: 08/12/[address]: Ren Morales MD 2-DIMENSIONAL: YES M.MODE: YES DOPPLER: YES COLOR FLOW: YES TDS: PORTABLE: YES DEFINITY: BUBBLE STUDY: DIAGNOSIS: MURMUR CARDIAC HISTORY: CATHERIZATION: NO SURGERY: NO PROSTHETIC VALVE: NO PACEMAKER: NO MEASUREMENTS (cm) DIASTOLIC (NORMALS) SYSTOLIC (NORMALS) IVSd 0.7 (0.6-1.2) LA Diam 2.4 (1.9-4.0) LVEF 69% LVIDd 4.2 (3.5-5.7) LVIDs 2.6 (2.0-3.5) %FS 38% LVPWd 0.8 (0.6-1.2) Ao Diam 2.4 (2.0-3.7) 2 DIMENSIONAL ASSESSMENT: RIGHT ATRIUM: NORMAL LEFT ATRIUM: NORMAL RIGHT VENTRICLE: NORMAL LEFT VENTRICLE: NORMAL TRICUSPID VALVE: MILD TRICUSPID REGURGITATION MITRAL VALVE: MILD MITRAL REGURGITATION PULMONIC VALVE: NORMAL AORTIC VALVE: NORMAL PERICARDIAL EFFUSION: NONE AORTIC ROOT: NORMAL LEFT VENTRICULAR WALL MOTION: NORMAL DOPPLER/COLOR FLOW: SEE BELOW COMMENTS: 1. NORMAL LEFT VENTRICULAR EJECTION FRACTION 60-65% 2. NORMAL WALL MOTION 3. MILD MITRAL REGURGITATION 4. MILD TRICUSPID REGURGITATION 5. SEVERE PULMONARY HYPERTENSION WITH RIGHT VENTRICULAR SYSTOLIC PRESSURE GREATER THAN 60 mmHg. TECHNOLOGIST: MICHOACANO FALCON
[2022-08-13 08:11] LABS: Blood Morphology Comment NOT SEEN (NOT SEEN); Platelet Estimate ADEQ
[2022-08-13] MEDS ORDERED: predniSONE 20 MG TAB PO SCH (09:00)
[2022-08-13] MEDS: methocarbamoL 500 MG TAB PO SCH ×2 (10:32→22:09)
[2022-08-13] MEDS: APIXABAN 2.5 MG TABLET PO SCH ×2 (10:33→22:09)
[2022-08-13] MEDS: DOCUSATE NA 100 MG CAP PO SCH ×2 (10:34→22:09)
[2022-08-13] MEDS: DULERA 200/5 (MOMETASONE/FORMOTEROL) INHALER IH SCH ×2 (11:17→22:10)
[2022-08-13] MEDS: HYDROCODONE/APAP 5/325 MG TAB PO PRN ×2 (17:09→23:22)
[2022-08-13] MEDS: ENSURE SURGERY 237 ML CAN PO SCH (21:00)
[2022-08-13] MEDS: MIRTAZAPINE 15 MG TAB PO SCH (22:09)
[2022-08-14] MEDS: MORPHINE 2 MG/ML SYR IV PRN ×2 (00:15→05:54)
[2022-08-14] MEDS: CEFAZOLIN 1 GM in NA CHLORIDE 0.9% 50 ML IVPB SCH (00:16)
--- NOTE | 2022-08-14 00:20 | PN ---
Date of Progress Note: 08/13/2022 Subjective: Patient was seen this morning for followup. No new complaints or problems reported by ko perry. She was lying in bed, not in any distress. Objective: Vital Signs: Reviewed. HEENT: Unremarkable. Lungs: Clear to auscultation, not in respiratory distress. Heart: Sounds normal. Abdomen: Soft. Bowel sounds normal. No guarding, rigidity, tenderness, distention. Extremities: No leg edema. Laboratory Data: White count 10.8, hemoglobin 10.8, platelets 200. Sodium 141, potassium 4.3, chlor olaf 104, bicarb 35, BUN 28, creatinine 0.48, glucose 98, magnesium 2.2. Her echocardiogram done yest erday shows ejection fraction of 69%, mild mitral regurgitation, mild tricuspid regurgitation, severe pulmonary hypertension. Impression: 1.Right hip fracture. 2.Severe chronic obstructive pulmonary disease, oxygen dependent. 3.Anemia. 4.Pulmonary hypertension. Plan: We will go ahead and continue current medication. Continue current inhaler, oxygen replacemen t therapy, prednisone, and current pain medication. Physical therapy to continue to work with the christiano reynolds. This was ordered for DVT prophylaxis and Social Service is assisting the patient with dischar ge planning as patient is thinking about whether she would like to go to inpatient rehab or somewhere else. I will see her tomorrow for followup. STEVE/MODL Voice ID: [id number] Report ID: [id number]
[2022-08-14] MEDS: IPRATROPIUM BROM 0.5MG/2.5ML NEB SCH ×2 (02:20→08:00)
[2022-08-14] MEDS: ALBUTEROL 2.5 MG/3 ML NEB SOL NEB SCH ×2 (02:20→08:00)
[2022-08-14] MEDS: LEVOTHYROXINE SOD 0.1 MG TAB PO SCH (05:54)
[2022-08-14] MEDS ORDERED: METOPROLOL TAR 25 MG TAB PO SCH (06:00)
[2022-08-14] MEDS ORDERED: BISACODYL 10 MG RECTAL SUPP PR ONE (07:09)
[2022-08-14] MEDS ORDERED: CEPHALEXIN 500 MG CAP PO SCH (07:30)
[2022-08-14] MEDS: methocarbamoL 500 MG TAB PO SCH (08:58)
[2022-08-14] MEDS: APIXABAN 2.5 MG TABLET PO SCH (08:59)
[2022-08-14] MEDS: DOCUSATE NA 100 MG CAP PO SCH (08:59)
[2022-08-14] MEDS ORDERED: MUPIROCIN 2% OINT 22GM TUBE TOP SCH (09:00)
[2022-08-14] MEDS ORDERED: predniSONE 10 MG TAB PO SCH (09:00)
[2022-08-14] MEDS: ENSURE SURGERY 237 ML CAN PO SCH (09:00)
[2022-08-14] MEDS: DULERA 200/5 (MOMETASONE/FORMOTEROL) INHALER IH SCH (09:02)
[2022-08-14 10:13] VITALS: BP 167/86; TEMP 97.8
[2022-08-14 11:09] VITALS: O2SAT 95
--- NOTE | 2022-08-15 07:55 | DS ---
Date of Discharge: 08/14/2022 Disposition: The patient was discharged to go to inpatient rehab. Physical Examination: Vital Signs: This morning; temperature 97.8, pulse 65, respiratory rate 14, blood pressure 167/86, oxygen saturation 98%. General: The patient lying in bed, not in distress. Denies any new complaints. HEENT: Unremarkable. Lungs: Clear to auscultation. Heart: Sounds normal. Abdomen: Soft. Bowel sounds normal. No guarding, rigidity, tenderness, distention. Extremities: No leg edema. Laboratory Data: Upon admission on 08/10/2022; white count 12.8, hemoglobin 13.2, platelets 239. Last CBC from yesterday; white count 10.8, hemoglobin 10.8, platelets 200. Lowest hemoglobin was 10.1 on 08/12/2022. Last chemistry from yesterday; sodium 141, potassium 4.3, chloride 104, bicarb 35, BUN 28, creatinine 0.48, glucose 98, magnesium 2.2. Upon admission; sodium 138, potassium 4, chloride 107, bicarb 30, BUN 29, creatinine 0.72, glucose 109. TSH 14.4. Discharge Medications And Instructions: See copy of transfer order for more details. History Of Present Illness: This is a 72-year-old female patient, who was admitted to the hospital with right hip fracture. Please see history and physical for more details and information. After the patient was brought into emergency room, she was evaluated in the ER and was admitted to the hospital with right hip fracture. The patient was admitted under my service as I was helping our hospitalist service and she is not my regular patient, but she was admitted under my service as a hospitalist. After she was admitted to the hospital, consultation was obtained from Dr. Elise from Orthopedic Surgery and we also requested consultation from Dr. Friedman and field radio operator, Dr. Herrera for preop clearance. The patient had a very large systolic murmur and she is oxygen dependent at home because of her severe COPD and continues to smoke. After obtaining cardiac and pulmonary clearance, the patient had her right hip fracture surgery. When I saw her, she had significant bilateral wheezing and she was started on IV steroid, Solu-Medrol 40 mg every 12 hours prior to surgery along with oxygen and nebulizer treatment and that actually did help her COPD problem. Echocardiogram from 08/12/2022 showed ejection fraction of 69%, severe pulmonary hypertension, mild mitral and tricuspid regurgitation. Postoperatively, the patient's condition remained stable. Her venous Doppler of lower extremity was negative for any DVT and this was right leg venous Doppler, and her arterial Doppler showed evidence of bilateral peripheral vascular disease. The patient was advised to quit smoking. She was given Ancef for possible cellulitis changes of right lower extremity, which actually has improved and we will change her antibiotics to oral cephalexin. We also changed her steroid from IV to oral prednisone and we will continue to taper it off. Physical Therapy was consulted and the patient was evaluated by Inpatient Rehab. She was given different options for her rehab including inpatient rehab and outpatient rehab or senior living facility and she elected to go to inpatient rehab, so she was transferred in stable condition with above-mentioned medications and in the rehab floor, she will be managed by Dr. Reed and if there is any need for any medical management, then Dr. Reed will consult hospitalist service. Final Diagnoses: 1. Right hip intertrochanteric fracture. 2. Cellulitis, right leg. 3. Peripheral vascular disease. 4. Chronic obstructive pulmonary disease, severe, oxygen dependent at home. 5. Hypertension. 6. Anemia, unspecified. 7. Severe pulmonary hypertension. 8. Mitral regurgitation. 9. Tricuspid regurgitation. 10. Chronic respiratory failure with hypoxia. STEVE/MODL Voice ID: [id number] Report ID: [id number] MANSOOR
== END 2022-08-14 10:49 | DRG 481 ==
LOC: ER 02:41 → ERHOLD 04:45 → 2ND 11:26
PROVIDERS: ADMIT Internal Medicine; ATTEND Internal Medicine
PROC: 0QH634Z Insertion of Internal Fixation Device into Right Upper Femur, Percutaneous Approach (ICD-10-PCS; principal; 2022-08-11 17:45)
DX: S72.141A Displaced intertrochanteric fracture of right femur, initial encounter for closed fracture (principal); J96.11 Chronic respiratory failure with hypoxia; L03.115 Cellulitis of right lower limb; I10 Essential (primary) hypertension; I73.9 Peripheral vascular disease, unspecified; D64.9 Anemia, unspecified; K59.00 Constipation, unspecified; J43.9 Emphysema, unspecified; I95.9 Hypotension, unspecified; I27.20 Pulmonary hypertension, unspecified; I08.1 Rheumatic disorders of both mitral and tricuspid valves; F17.210 Nicotine dependence, cigarettes, uncomplicated; R01.1 Cardiac murmur, unspecified; Z60.2 Problems related to living alone; Z79.82 Long term (current) use of aspirin; Z90.49 Acquired absence of other specified parts of digestive tract; Z99.81 Dependence on supplemental oxygen; Z79.52 Long term (current) use of systemic steroids; Z79.51 Long term (current) use of inhaled steroids; Z79.890 Hormone replacement therapy; Z90.710 Acquired absence of both cervix and uterus; Z79.899 Other long term (current) drug therapy; Z20.822 Contact with and (suspected) exposure to COVID-19; W18.30XA Fall on same level, unspecified, initial encounter; Y93.9 Activity, unspecified; Y92.019 Unspecified place in single-family (private) house as the place of occurrence of the external cause
CPT/HCPCS: 36415; 51702; 71045; 72170; 80048; 80053; 80076; 81001; 82550; 83735; 83880; 84439; 84443; 84484; 85025; 86850; 86900; 86901; 93005; 93306; 93925; 93971; 94760; 96361; 96374; 96375; 97110; 97161; 97530; 99285; G0480; J0690; J1100; J1650; J2001; J2270; J2370; J2405; J2704; J2765; J2920; J3010; J3535; J7040; J7050; J7120; J7512; J7613; J7644; J7799; U0003

== ENCOUNTER 2022-08-14 08:54 | Inpatient (IN) | payer OTHER ==
--- OUTSIDE RECORDS SUMMARY | 2022-08-14 10:50 | XMS REPORT | Continuity of Care Document ---
:1950 Author Organization [facility] t Address [address] [place] [address] Care Team Providers Name Role Phone No, Pcp [facility] Primary Care Physician Unavailable CHAO CARDONA CASSIE Attending Clinician Unavailable Kirk Elise MD Attending Clinician Doctor Unassigned, Alverda Attending Clinician Unavailable MARTHA CONWAY Attending Clinician Unavailable Linda RAMIREZ, Quentin Acuña Attending Clinician Martha Conway MD Attending Clinician Mary Kay Felix MD Attending Clinician Nisa PEREZ, [place] Attending Clinician Unavailable Amelia Ferreira Attending Clinician Kashif Strong MD Attending Clinician Wendi Lynch MD Attending Clinician [phone] Amelia ZIEGLER Attending Clinician Unavailable Vidhya Fuentes MD Attending Clinician Clarence Bach MD Attending Clinician Amanda Daniels MD Attending Clinician VIDHYA FUENTES Attending Clinician Unavailable ADHI, CHAO CASSIE Admitting Clinician Unavailable MARY KAY FELIX Admitting Clinician Unavailable OLE CUEVA Admitting Clinician Unavailable Kashif Strong MD Admitting Clinician Amanda Daniels MD Admitting Clinician Payers Payer Name Policy Type Policy Number Effective Date Expiration Date Juliann cuevas MEDICARE A B [id number] 2014 00:00:00 [facility]ICAID [facility] [id number] 2022 00:00:00 Problems Condition Condition Condition Status Onset Resolution Last Treating Co mments Source Name Details Category Date Date Treatment Clinician Date Hypoxia Hypoxia Disease Active 2021-[address] [facility] Medical [address] [place] [address] Acute Acute Disease Active [facility] hypoxemic hypoxemic 12-14 [facility] respirator respirator 00:00: Me dical y failure y failure 00 Cent er Pneumothor Pneumothor Disease Active [facility] ax ax 12-14 [facility] 00:00: Medical [address] [place] [address] Acute Acute Disease Active Univers hypercapni hypercapni 11-27 it y of c c 00:00: [place] respirator respirator 00 Me dical y failure y failure Bran ch E46 E46 Disease Active Univers Unspecifie Unspecifie 607 it y of d severe d severe 00:00: [place] protein-ca protein-ca 00 [facility] malnutriti malnutriti on on Cellulitis Cellulitis Disease Active U nivers of left of left 6-05 ity of lower lower 00:00: [place] extremity extremity 00 [facility] Branch Allergies, Adverse Reactions, Alerts Allergy Allergy Status Severity Reaction(s) Onset Inactive Treating Comm ents Source Name Type Date Date Clinician Levoflox Propensi Active Hallucinatio Univers acin ty to ns 11-27 ity of adverse 00:00: [place] reaction [address] [place] [address] LEVOFLOX DRUG Active Hallucinates Un jacinda ACIN INGREDI 11-27 ity of 00:00: [address] NO KNOWN Allergy Active [facility] NO KNOWN Drug Active Univers ALLERGIE Class ity of S [facility] Social History Social Habit Start Date Stop Date Quantity Comments Source History of tobacco Cigarette Smoker University of use [facility] Exposure to Not sure University of SARS-CoV-2 (event) [facility] Cigarettes smoked 2020-11-27 2020-11-27 Univers ity of current (pack per 00:00:00 00:00:00 [facility] ) - Reported Branch Cigarette 2020-11-27 2020-11-27 University of pack-years 00:00:00 00:00:00 [facility] Tobacco use and 2020-11-27 2020-11-27 Smokeless Universit y of exposure 00:00:00 00:00:00 tobacco [facility] intake 2020-11-27 2020-11-27 Ex-drinker [facility] 00:00:00 00:00:00 (finding) [facility] Sex Assigned At [address] [facility] 00:00:00 00:00:00 Medical Center Smoking Status Start Date Stop Date Source Smokes tobacco daily 2020-11-27 00:00:00 Univers ity of [facility] Medications Ordered Filled Start Stop Current Ordering Indication Dosage Frequency Signature Comments Components Source Medication Medication Date Date Medication? Clinician (SIG) Name Name aspirin 81 2021-06- No 81mg QD Take [address] [facility] MG chewable 0-23 10-23 tablet (81 L ukes tablet 00:00: 23:59 mg total) Medic al 00 :00 by mouth Center daily. levothyroxi 2021-06- No 75ug Take [address] [facility] ne 0-23 10-23 tablet (75 [facility] (SYNTHROID, 00:00: 23:59 mcg total) Medical LEVOTHROID) 00 :00 by mouth Cent er 75 MCG Every tablet morning on an empty stomach. aspirin 81 2021-06- No 81mg QD Take [address] [facility] MG chewable 0-23 10-23 tablet (81 L ukes tablet 00:00: 23:59 mg total) Medic al 00 :00 by mouth Center daily. levothyroxi 2021-06- No 75ug Take [address] [facility] ne 0-23 10-23 tablet (75 [facility] (SYNTHROID, 00:00: 23:59 mcg total) Medical LEVOTHROID) 00 :00 by mouth Cent er 75 MCG Every tablet morning on an empty stomach. lisinopriL 2021-06- No 10mg QD Take [address] [facility] (PRINIVIL,Z 0-23 11-22 tablet (10 L ukes ESTRIL) 10 00:00: 23:59 mg total) M edical MG tablet 00 :00 by mouth Center daily for 30 days. metoprolol 2021-06- No 50mg QD Take [address] [facility] succinate 0-23 11-22 tablet (50 May[place] es (TOPROL-XL) 00:00: 23:59 mg total) Medical 50 MG 24 hr 00 :00 by mouth Cent er tablet daily for 30 days. pantoprazol 2021-06- No 40mg QD Take [address] [facility] e 0-23 11-22 tablet (40 [facility] (PROTONIX) 00:00: 23:59 mg total) M edical 40 MG 00 :00 by mouth Center tablet daily for 30 days. lisinopriL 2021-06- No 10mg QD Take [address] [facility] (PRINIVIL,Z 0-23 11-22 tablet (10 L ukes ESTRIL) 10 00:00: 23:59 mg total) M edical MG tablet 00 :00 by mouth Center daily for 30 days. metoprolol 2021-06- No 50mg QD Take [address] [facility] [address] succinate 0-23 11-22 tablet (50 [place] (TOPROL-XL) 00:00: 23:59 mg total) Medical 50 MG 24 hr 00 :00 by mouth Cent er tablet daily for 30 days. pantoprazol 2021-06- No 40mg QD Take [address] [facility] e 0-23 11-22 tablet (40 [facility] (PROTONIX) 00:00: 23:59 mg total) M edical 40 MG 00 :00 by mouth Center tablet daily for 30 days. predniSONE 2021-06- No 20mg QD Take [address] [facility] (DELTASONE) 0-23 11-02 tablet (20 L ukes 20 MG 00:00: 23:59 mg total) Medica l tablet 00 :00 by mouth Center daily for 10 days. predniSONE 2021-06- No 20mg QD Take [address] [facility] (DELTASONE) 0-23 11-02 tablet (20 L ukes 20 MG 00:00: 23:59 mg total) Medica l tablet 00 :00 by mouth Center daily for 10 days. atorvastati 2021-06 No 80mg QD Take [address] [facility] n (LIPITOR) 0-22 11-21 tablet (80 L ukes 80 MG 00:00: 23:59 mg total) Medica l tablet 00 :00 by mouth Center nightly for 30 days. budesonide 2021-06- No .25mg Q.5D Take [address] [address] (PULMICORT) 0-22 11-21 (0.25 mg [place] 0.25 mg/2 00:00: 23:59 total) by Me dical mL 00 :00 nebulizati Center nebulizer on 2 (two) solution times daily for 30 days. ipratropium 2021-06- No 3mL Take [address] -albuteroL 0-21 by [employer] ([employer]) 00:00: 23:59 nebulizati M edical 0.5 mg-3 00 :00 on every 6 Cente r mg(2.5 mg (six) base)/3 mL hours for nebulizer 30 days. solution atorvastati 2021-06 No 80mg QD Take [address] [facility] n (LIPITOR) 0-22 11-21 tablet (80 L ukes 80 MG 00:00: 23:59 mg total) Medica l tablet 00 :00 by mouth Center nightly for 30 days. budesonide 2021-06 No .25mg Q.5D Take [address] (PULMICORT) 0-22 11-21 (0.25 mg [place] 0.25 mg/2 00:00: 23:59 total) by Me dical mL 00 :00 nebulizati Center nebulizer on 2 (two) solution times daily for 30 days. ipratropium 2021-06 No 3mL Take [address] -albuteroL 0 11-21 by [employer] ([employer]) 00:00: 23:59 nebulizati M edical 0.5 mg-3 [...] Q.5D Take [address] (PULMICORT) 12-19-14 (0.5 mg Luke s 0.5 mg/2 mL 00:00: 23:59 total) by Medical nebulizer 00 :00 nebulizati Cent er solution on 2 (two) times daily. budesonide 2021- No .5mg Q.5D Take [address] (PULMICORT) 12-19-14 (0.5 mg Luke s 0.5 mg/2 mL 00:00: 23:59 total) by Medical nebulizer 00 :00 nebulizati Cent er solution on 2 (two) times daily. budesonide 2021- No .5mg Q.5D Take [address] (PULMICORT) 12-19-14 (0.5 mg Luke s 0.5 mg/2 mL [...] [address] -albuteroL 12-19 by [facility] ([employer]) 00:00: 23:59 nebulizati M edical 0.5 mg-3 00 :00 on every 4 Cente r mg(2.5 mg (four) base)/3 mL hours for nebulizer 360 days. solution ipratropium 0 2021- No 3mL Take [address] -albuteroL 12-19 by [facility] ([employer]) 00:00: 23:59 nebulizati M edical 0.5 mg-3 00 :00 on every 4 Cente r mg(2.5 mg (four) base)/3 mL hours for nebulizer 360 days. solution levothyroxi Yes 75ug Take 75 Uni vers ne 75 mcg 6-30 mcg by ity of tablet 01:00: mouth [place] 27 every Medical morning. Branch levothyroxi 0 Yes 75ug Take 75 Uni vers ne 75 mcg 6-30 mcg by ity of tablet 01:00: mouth [place] 27 every Medical morning. Branch vitamin 2020-0 Yes [id number] 1000ug Take 1 U nivers B-12 1,000 6-30 tablet by ity of mcg tablet 00:00: mouth [place] 00 daily. Medical Branch vitamin 2020-0 Yes [id number] 1000ug Take 1 U nivers B-12 1,000 6-30 tablet by ity of mcg tablet 00:00: mouth [place] 00 daily. [facility] Branch vitamin 2020-0 Yes [id number] 1000ug Take 1 U nivers B-12 1,000 6-30 tablet by ity of mcg tablet 00:00: mouth [place] 00 daily. [facility] Branch vitamin 2020-0 Yes [id number] 1000ug Take 1 U nivers B-12 1,000 6-30 tablet by ity of mcg tablet 00:00: mouth [place] 00 daily. [facility] Branch vitamin 2020-0 Yes [id number] 1000ug Take 1 U nivers B-12 1,000 6-30 tablet by ity of mcg tablet 00:00: mouth [place] 00 daily. Medical Branch levothyroxi 2020-0 Yes 75ug Take 75 Uni vers ne 75 mcg 6-29 mcg by ity of tablet 20:00: mouth [place] 27 every Medical morning. Branch levothyroxi Yes 75ug Take 75 Uni vers ne 75 mcg 6-29 mcg by ity of tablet 20:00: mouth [place] 27 every Medical morning. Branch levothyroxi Yes 75ug Take 75 Uni vers ne 75 mcg 6-29 mcg by ity of tablet 20:00: mouth [place] 27 every Medical morning. Branch vitamin Yes 1000ug 1,000 mcg, Un jacinda B-12 6-29 Oral, ity of (CYANOCOBAL 14:00: DAILY, [place]) 00 First dose Medical tablet on Thu Branch 1,000 mcg 12/04/20 at 0900, Until Discontinu ed, Routine albuterol Yes [id number] 2{puff} Inhale 2 Univers 90 6-29 Puffs ity of mcg/actuati 00:00: every 6 Juni as on inhaler 00 (six) Medical hours as Branch needed for Wheezing or Shortness of Breath. albuterol Yes [id number] 2{puff} Inhale 2 Univers 90 6-29 Puffs ity of mcg/actuati 00:00: every 6 Juni as on inhaler 00 (six) Medical hours as Branch needed for Wheezing or Shortness of Breath. albuterol Yes [id number] 2{puff} Inhale 2 Univers 90 6-29 Puffs ity of mcg/actuati 00:00: every 6 Juni as on inhaler 00 (six) Medical hours as Branch needed for Wheezing or Shortness of Breath. albuterol Yes [id number] 2{puff} Inhale 2 Univers 90 6-29 Puffs ity of mcg/actuati 00:00: every 6 Juni as on inhaler 00 (six) Medical hours as Branch needed for Wheezing or Shortness of Breath. albuterol Yes [id number] 2{puff} Inhale 2 Univers 90 6-29 Puffs ity of mcg/actuati 00:00: every 6 Juni as on inhaler 00 (six) Medical hours as Branch needed for Wheezing or Shortness of Breath. KCL 2020- No 40meq 40 mEq, Univers (KLOR-CON 6-26 06-26 Oral, ity of M20) tablet 14:15: 13:20 ONCE, 1 [place] 40 mEq 00 :00 dose, Sat Medical 12/01/20 at Branch 0915, Routine lactated No 500mL at 999 Unive rs ringers IV 11-29-24 mL/hr, 500 it y of infusion 01:15: 02:00 mL, [place] 500 mL 00 :00 Intravenou Medical s, ONCE, 1 Branch dose, Thu11/28/20 at 2015, Routine furosemide Yes 20mg 20 mg, Unive rs (LASIX) 11-28 Oral, ity of tablet 20 14:00: DAILY, [place] mg 00 First dose Medical on Thu Branch 11/28/20 at 0900, Until Discontinu ed, Routine pantoprazol Yes 40mg 40 mg, Univ ers e 11-28 Oral, ity of (PROTONIX) 14:00: DAILY, [place] [...] at 0900, Until Discontinu ed, Routine predniSONE 2020- No 40mg 40 mg, Univ ers (DELTASONE) 11-28 Oral, ity of tablet 40 14:00: 13:58 DAILY, 5 Juni as mg 00 :00 doses, Medical First dose Branch on Thu11/28/20 at 0900, Last dose on 12/02/20 at 0900, Routine levothyroxi Yes 75ug 75 mcg, Uni vers ne 11-28 Oral, ity of (SYNTHROID) 11:00: QAM-0600, [place] tablet 75 00 First dose Medi santo mcg on Thu Branch 11/28/20 at 0600, Until Discontinu ed, Routine albuterol Yes 2.5mg 2.5 mg, Univ ers (PROVENTIL) 11-28 Inhalation it y of 2.5 mg /3 01:00: , Q4H, [place] mL (0.083 00 First dose Medi santo %) on [facility] Branch nebulizer 11/27/20 at solution 2000, 2.5 mg Until Discontinu ed, Routine ceFEPIme 2020- No 2000mg 2,000 mg, U nivers (MAXIPIME) 11-28 IV ity of 2,000 mg in 00:15: 14:42 Piggyback, [place] NaCl 0.9% 00 :22 Q8H ABX, Medica l (NS) 100 mL First dose Br anch MINI-BAG on Thu11/27/20 at 1915, Until Discontinu ed, 100 mL
R corina for Anti-Infec tive: Empiric Therapy for Suspected Infection< br>Empiric Therapy Site: Respirator y
Durat ion of therapy: 72 hours doxycycline 2020- No 100mg 100 mg, IV Univers (VIBRAMYCIN 11-27 Piggyback, i ty of ) 100 mg in 23:15: 23:48 Q12H ABX, [place] NaCl 0.9% 00 :53 First dose Medi santo (NS) 100 mL on [facility] Branch MINI-BAG 11/27/20 at 1815, Until Discontinu ed, 100 mL
R corina for Anti-Infec tive: Empiric Therapy for Suspected Infection< br>Empiric Therapy Site: Respirator y
Durat ion of therapy: 72 hours vancomycin 2020- No 15mg/kg 500 mg U nivers 500 mg in 11-27 (rounded ity o f NS 100 mL 23:15: 14:42 [place] 652.5 [place] IV 00 :22 mg = 15 Medical piggyback mg/kg Branch (CNR) ?43.5 kg), IV Piggyback, Q12H ABX, First dose on Thu11/27/20 at 181, Until Discontinu ed, 100 mL
Reas on [...] of 1,000 mg in 18:15: 18:16 Piggyback, [place] NaCl 0.9% 00 :00 ONCE, 1 Medical [...] Tue Medi santo (4 %) 11/27/20 at Branch infusion 2 1145, g Routine methylpredn 2020- No 125mg 125 mg, IV Univers isolone sod 11-27 Piggyback, i ty of succ 16:45: 15:47 ONCE, 1 [place] (SOLU-MEDRO 00 :00 dose, Tue Med ical L) 11/27/20 at Branch injection 1145, STAT 125 mg ipratropium 2020- No 3mL 3 mL, Univ ers -albuteroL 11-27 Inhalation it y of (DUONEB) 16:45: 15:36 , ONCE, 1 Juni as 0.5 mg-3 00 :00 dose, Tue Medica l mg(2.5 mg 11/27/20 at [facility])/3 mL 1145, nebulizer Routine solution 3 mL cefdinir 2020-0 Yes 600mg 600 mg, Unive rs (OMNICEF) 6-09 Oral, ity of capsule 600 14:00: DAILY, [place] mg 00 First dose Medical (after Branch last modificati on) on Thu11/14/20 at 0900, Until Discontinu ed, CEM
Re ason for Anti-Infec tive: Empiric Therapy for Suspected Infection< br>Empiric Therapy Site: Skin / Soft tissue
Duration of therapy: 72 hours levothyroxi 0 Yes 75ug Take 75 Uni vers ne 75 mcg 6-08 mcg by ity of tablet 21:50: mouth [place] 33 every Medical morning. Branch levothyroxi 0 Yes 75ug Take 75 Uni vers ne 75 mcg 6-08 mcg by ity of tablet 21:50: mouth [place] 33 every Medical morning. Branch levothyroxi 0 Yes 75ug Take 75 Uni vers ne 75 mcg 6-08 mcg by ity of tablet 21:50: mouth [place] 33 every Medical morning. Branch lactobacill 0 Yes .5mg 0.5 mg, Uni vers us [...] Until Discontinu ed, Routine furosemide 2020-0 Yes [id number] 20mg Take 1 Univers 20 mg 6-08 tablet by ity of tablet 00:00: mouth [place] 00 daily. Medical Branch acidophilus 2020-0 Yes [id number] 1g Take 1 Univers 100 million 6-08 tablet by ity of cell tablet 00:00: mouth 2 Juni as 00 (two) Medical times Branch daily. Bismuth 2020-0 Yes [id number] Apply to U [facility]-Pet 6-08 lower ity of rolatum,[place] 00:00: extremity [place] (XEROFORM 00 wounds Medical PETROLATUM with Branch DRESSING) 4 Kerlix X 4 " Bndg wrap and change daily furosemide 2020-0 Yes [id number] 20mg Take 1 Univers 20 mg 6-08 tablet by ity of tablet 00:00: mouth [place] 00 daily. Medical Branch acidophilus 2020-0 Yes [id number] 1g Take 1 Univers 100 million 6-08 tablet by ity of cell tablet 00:00: mouth 2 Jun[place] as 00 (two) Medical times Branch daily. Bismuth 2020-0 Yes [id number] [facility] ity of [facility], 00:00: extremity [place] (XEROFORM 00 wounds Medical PETROLATUM with Branch DRESSING) 4 Kerlix X 4 " Bndg wrap and change daily furosemide 2020-0 Yes [id number] 20mg Take 1 Univers 20 mg 6-08 tablet by ity of tablet 00:00: mouth [place] 00 daily. Medical Branch acidophilus 2020-0 Yes [id number] 1g Take 1 Univers 100 million 6-08 tablet by ity of cell tablet 00:00: mouth 2 Jun[place] as 00 (two) Medical times Branch daily. Bismuth 2020-0 Yes [id number] [facility] ity of [facility], 00:00: extremity [place] (XEROFORM 00 wounds Medical PETROLATUM with Branch DRESSING) 4 Kerlix X 4 " Bndg wrap and change daily furosemide 2020-0 Yes [id number] 20mg Take 1 Univers 20 mg 6-08 tablet by ity of tablet 00:00: mouth [place] 00 daily. Medical Branch acidophilus 2020-0 Yes [id number] 1g Take 1 Univers 100 million 6-08 tablet by ity of cell tablet 00:00: mouth 2 Jun[place] as 00 (two) Medical times Branch daily. Bismuth 2020-0 Yes [id number] [facility] ity of [facility], 00:00: extremity [place] (XEROFORM 00 wounds Medical PETROLATUM with Branch DRESSING) 4 Kerlix X 4 " Bndg wrap and change daily furosemide 2020-0 Yes [id number] 20mg Take 1 Univers 20 mg 6-08 tablet by ity of tablet 00:00: mouth [place] 00 daily. Medical Branch acidophilus 2020-0 Yes [id number] 1g Take 1 Univers 100 million 6-08 tablet by ity of cell tablet 00:00: mouth 2 Jun[place] as 00 (two) Medical times Branch daily. Bismuth 2020-0 Yes [id number] Apply to [facility]-Pet 6-08 lower ity of [facility], 00:00: extremity [place] (XEROFORM 00 wounds Medical PETROLATUM with Branch DRESSING) 4 Kerlix X 4 " Bndg wrap and change daily furosemide 2020-0 Yes [id number] 20mg Take 1 Univers 20 mg 6-08 tablet by ity of tablet 00:00: mouth [place] 00 daily. Medical Branch acidophilus 2020-0 Yes [id number] 1g Take 1 Univers 100 million 6-08 tablet by ity of cell tablet 00:00: mouth 2 Jun[place] as 00 (two) Medical times Branch daily. Bismuth 2020-0 Yes [id number] Apply to [facility]-Pet 6-08 lower ity of [facility], 00:00: extremity [place] (XEROFORM 00 wounds Medical PETROLATUM with Branch DRESSING) 4 Kerlix X 4 " Bndg wrap and change daily furosemide 2020-0 Yes [id number] 20mg Take 1 Univers 20 mg 6-08 tablet by ity of tablet 00:00: mouth [place] 00 daily. Medical Branch acidophilus 2020-0 Yes [id number] 1g Take 1 Univers 100 million 6-08 tablet by ity of cell tablet 00:00: mouth 2 Jun[place] as 00 (two) Medical times Branch daily. Bismuth 2020-0 Yes [id number] Apply to [facility]-Pet 6-08 lower ity of [facility], 00:00: extremity [place] (XEROFORM 00 wounds Medical PETROLATUM with Branch DRESSING) 4 Kerlix X 4 " Bndg wrap and change daily furosemide 2020-0 Yes [id number] 20mg Take 1 Univers 20 mg 6-08 tablet by ity of tablet 00:00: mouth [place] 00 daily. Medical Branch acidophilus 2020-0 Yes [id number] 1g Take 1 Univers 100 million 6-08 tablet by ity of cell tablet 00:00: mouth 2 Juni as 00 (two) Medical times Branch daily. Bismuth 2021-0 Yes [id number] Apply to U nivers [employer]-Pet 11-13 lower ity of rolatum,Wh 00:00: extremity [place] (XEROFORM 00 wounds Medical PETROLATUM with Branch DRESSING) 4 Kerlix X 4 " Bndg wrap and change daily levoFLOXaci 2020- No [id number] 500mg Take 20 mL Univers n 250 mg/10 11-13 by mouth ity of mL solution 00:00: 04:59 every 24 [place] 00 :00 (twenty-fo Medical ur) hours Branch for 7 days. levoFLOXaci 2020- No [id number] 500mg Take 20 mL Univers n 250 mg/10 11-13 by mouth ity of mL solution 00:00: 04:59 every 24 [place] 00 :00 (twenty-fo Medical ur) hours Branch for 7 days. Vancomycin 2020- No 750mg 750 mg, IV Univers 750 [...] ity of OINT) 2 % 16:00: 23:05 [place] skin 00 :21 Medical ointment Branch ceFEPIme 2020- No 1000mg 1,000 mg, U nivers (MAXIPIME) 11-11 IV ity of 1,000 mg in 02:00: 15:50 [place], [place] NaCl 0.9% 00 :11 Q12H ABX, Medic al (NS) 50 mL First dose Bra nch MINI-BAG on 11/10/20 at 2100, Until Discontinu ed, 50 mL
R corina for Anti-Infec tive: Documented Infection< br>Documen cristhian Infection Site: Blood
D uration of Therapy: 7 days vancomycin No 500mg 500 mg, IV Univers (VANCOCIN) [...] of Therapy: 7 days iopamidol 2020- No [id number] 100mL 100 mL, Univers (ISOVUE 11-10 Intravenou ity o f 370-500 mL) 19:15: 17:45 s, ONCE, 1 [place] injection 00 :00 dose, Sat Medic al 100 mL 11/10/20 at Branch 1415, Routine amLODIPine Yes 5mg 5 mg, Univer s (NORVASC) 11-10 Oral, ity of tablet 5 mg 14:00: DAILY, [place] 00 First dose Medical on [facility] 11/10/20 at 0900, Until Discontinu ed, Routine enoxaparin Yes 40mg 40 mg, Unive rs (LOVENOX) 11-10 Subcutaneo ity of injection 14:00: us, DAILY, [place] 40 mg 00 First dose Medical on [facility] 11/10/20 at 0900, Until Discontinu ed, Routine ipratropium Yes 3mL 3 mL, Unive rs -albuteroL 11-10 Inhalation ity of (DUONEB) 13:00: , QID, [place] 0.5 mg-3 00 First dose Medic al mg(2.5 mg on [facility] Branch base)/3 mL 11/10/20 at nebulizer 0800, solution 3 Until mL Discontinu ed, Routine levoFLOXaci No 500mg 500 mg, IV Univers n in D5W 11-10 Piggyback, ity of (LEVAQUIN) 11:45: 15:48 Administer [place] 500 mg/100 00 :36 over 60 Medica l mL Minutes, Branch Piggyback Q24H ABX, 500 mg First dose on 11/10/20 at 0645, Until Discontinu ed, CEM
Re ason for Anti-Infec tive: Documented Infection< br>Documen cristhian Infection Site: Respirator y
Durat ion of Therapy: 7 days vancomycin 2020- No 15mg/kg 500 mg U nivers (VANCOCIN) 11-10 (rounded ity of 500 mg in 11:30: 12:19 from 652.5 [place] NaCl 0.9% 00 :00 mg = 15 Medical (NS) 500 mL mg/kg Branch piggyback ?43.5 kg), IV Piggyback, Q12H ABX, First dose on [facility] 11/10/20 at 0630, Until Discontinu ed, 500 mL
Reas on for Anti-Infec tive: Documented Infection< br>Docu mented Infection Site: Skin / Soft Tissue
Duration of Therapy: 7 days levothyroxi Yes 75ug 75 mcg, Uni vers ne 11-10 Oral, ity of (SYNTHROID) 11:00: QAM-0600, [place] tablet 75 00 First dose Medi santo mcg on [facility] Branch 11/10/20 at 0600, Until Discontinu ed, Routine piperacilli 2020- No 3.375g 3.375 g, Univers n-tazobacta 11-10 IV ity of m (ZOSYN) 10:45: 10:13 Piggyback, [place] 3.375 g in 00 :00 ONCE, 1 Medica l NaCl 0.9% dose, Sat Bran h (NS) 100 mL 11/10/20 at MINI-BAG 0545, 100 mL
Reas on for Anti-Infec tive: Documented Infection< br>Documen cristhian Infection Site: Skin / Soft Tissue
Duration of Therapy: Other (see Comments) aspirin 2020- No 325mg 325 mg, Unive rs tablet 325 11-1007 Oral, ity of mg 10:25: 14:04 Q6HPRN, [place] 14 :54 Starting Medical [facility] 11/10/20 Branch at 0525, Until [facility] 11/12/20 at 0904, Routine, Pain (scale 4-6) acetaminoph 2020- No 15mg/kg 608 mg Univers en 11-10 (rounded ity of (TYLENOL) 10:15: 09:02 from 612 Juni as 160 mg/5 mL 00 :00 mg = 15 Medic al liquid 608 mg/kg Branch mg ?40.8 kg), Oral, ONCE, 1 dose, 11/10/20 at 0515, CEM ipratropium 0 Yes 3mL 3 mL, Unive rs -albuteroL 11-10 Inhalation ity of (DUONEB) 10:05: , QIDPRN, [place] 0.5 mg-3 49 Starting Medical mg(2.5 mg 11/10/20 Bran ch base)/3 mL at 0505, nebulizer Until solution 3 Discontinu mL ed, Routine, Wheezing, Shortness of Breath ondansetron Yes 4mg 4 mg, Slow Univers (ZOFRAN 11-10 IV Push, ity of (PF)) 10:05: Q6HPRN, [place] injection 4 13 Starting Medi santo mg 11/10/20 Branch at 0505, Until Discontinu ed, Routine, Nausea and Vomiting (N/V) acetaminoph Yes 650mg 650 mg, Un jacinda en 11-10 Oral, ity of (TYLENOL) 10:04: Q6HPRN, [place] tablet 650 55 Starting Medic al mg [...] 20:26:00 114 mm[Hg] Univer sity of pressure [facility] Diastolic blood 2020-12-04 20:26:00 84 mm[Hg] Unive rsity of pressure [facility] Heart rate 2020-12-04 20:26:00 97 /[facility] Body temperature 2020-12-04 20:26:00 37.33 [place]ene Univ ersity [facility] Respiratory rate 2020-12-04 20:26:00 20 /min [facility] saturation in 2020-12-04 20:26:00 96 /min [facility] Arterial blood by [facility] Pulse oximetry Branch Body height 2020-11-27 22:06:00 172.7 cm [facility] Body weight 2020-11-27 22:06:00 44 kg [facility] BMI 2020-11-27 22:06:00 14.75 kg/m2 [facility] Systolic blood 2020-12-04 20:26:00 114 mm[Hg] [facility] Diastolic blood 2020-12-04 20:26:00 84 mm[Hg] [facility] Heart rate 2020-12-04 20:26:00 97 /min [facility] Body temperature 2020-12-04 20:26:00 37.33 Charlene [facility] Respiratory rate 2020-12-04 20:26:00 20 /min [facility] Oxygen saturation in 2020-12-04 20:26:00 96 /min [facility] Arterial blood by [facility] Pulse oximetry Branch Body height 2020-11-27 22:06:00 172.7 cm [facility] Body weight 2020-11-27 22:06:00 44 kg [facility] BMI 2020-11-27 22:06:00 14.75 kg/m2 [facility] Body temperature 2020-11-13 16:20:00 36.44 Charlene [facility] Respiratory rate 2020-11-13 16:20:00 21 /min [facility] Oxygen saturation in 2020-11-13 15:59:00 96 /min [facility] Arterial blood by [facility] santo Pulse oximetry Branch Systolic blood 2020-11-13 13:00:00 147 mm[Hg] [facility] Diastolic blood 2020-11-13 13:00:00 99 mm[Hg] [facility] Heart rate 2020-11-13 13:00:00 80 /min [facility] Body weight 2020-11-13 08:30:00 52.617 kg [facility] BMI 2020-11-13 08:30:00 17.64 kg/m2 [facility] Body height 2020-11-10 10:26:00 172.7 cm Universi ty [facility] Body temperature 2020-11-13 16:20:00 36.44 [facility]ene [facility] 2020-11-13 16:20:00 21 /min [facility] O[facility] saturation in 2020-11-13 15:59:00 96 /min University Arterial blood by [facility] Pulse oximetry Branch Systolic blood 2020-11-13 13:00:00 147 mm[Hg] Univer sity of [facility] Diastolic blood 2020-11-13 13:00:00 99 mm[Hg] [facility] 2020-11-13 13:00:00 80 /min [facility]i ty [facility] Body weight 2020-11-13 08:30:00 52[facility]617 [facility] BMI 2020-11-13 08:30:00 17.64 kg/m2 [facility] Body height 2020-11-10 10:26:00 172.7 cm [facility] Systolic blood 2022-03-29 11:01:00 150 mm[Hg] [facility] Diastolic blood 2022-03-29 11:01:00 90 mm[Hg] [facility] Heart rate 2022-03-29 11:01:00 88 /min [facility] Body temperature 2022-03-29 11:01:00 35.61 Charlene [facility] Respiratory rate 2022-03-29 11:01:00 18 /min [facility] Oxygen saturation in 2022-03-29 11:01:00 97 /min [facility] Arterial blood by Medical nter Pulse oximetry Body weight 2022-03-29 06:00:00 49.714 kg [facility] BMI 2022-03-29 06:00:00 18.24 kg/m2 [facility] Body height 2022-03-27 22:32:00 165.1 cm [facility] Procedures Procedure Date / Time Performing Source Performed Clinician RADIOLOGY DOCUMENTATION 2022-08-12 Doctor Unassigned, [facility] 06:01:00 [facility] 2D ECHO W/ DOPPLER 2022-04-[address] [facility] (CW/PW/COLOR) 09:58:03 [facility] XR CHEST 1 VIEW PORTABLE / 2022-03-29 AnamLaurie [facility] 07:47:00 [facility] MAGNESIUM 2022-03-29 Hali Rincon Chi [facility] 04:23:00 [facility] COMPREHENSIVE METABOLIC PANEL 2022-03-29 SergeyHali [facility] 04:23:00 [facility] CBC W/PLT COUNT & AUTO 2022-03-[address] [facility] [facility] DIFFERENTIAL 04:22:00 [facility] CBC W/PLT COUNT & AUTO 2022-03-29 CortesToribio wiley [facility] DIFFERENTIAL 04:22:00 [facility] XR CHEST 1 VIEW PORTABLE / 2022-03-[address] [facility] BEDSIDE 07:10:[address] [facility] XR CHEST 1 VIEW PORTABLE / 2022-03-[address] [facility] BEDSIDE 12:11:00 [facility] XR CHEST 1 VIEW PORTABLE / 2022-03-[address] [facility] BEDS[facility] 07:09:[address] [facility] XR CHEST 1 VIEW PORTABLE / 2022-03-26 LindaQuentin [facility] 18:12:00 [facility] SARS-COV2/RT-PCR ([facility] & REF 2022-03-26 Linda Quentin Acuña [facility] LABS) 07:40:00 [facility] XR CHEST 1 VIEW PORTABLE / 2022-03-[address] [facility] BEDSIDE 07:36:[address] [facility] XR CHEST 1 VIEW PORTABLE / 2022-03-[address] [facility] BEDS[facility] 06:49:[address] [facility] XR CHEST 1 VIEW PORTABLE / 2022-03-[address] [facility] BEDSIDE 08:17:[address] [facility] XR CHEST 1 VIEW PORTABLE / 2022-03-[address] [facility] BEDSIDE 07:12:[address] [facility] XR CHEST 1 VIEW PORTABLE / 2022-03-[address] [facility] BEDSIDE 07:05:[address] [facility] XR CHEST 1 VIEW PORTABLE / 2022-03-[address] [facility] BED[facility] 09:23:[address] [facility] XR CHEST 1 VIEW PORTABLE / 2022-03-20 Italo Benitez [facility] 12:39:00 [facility] XR CHEST 1 VIEW PORTABLE / 2022-03-[address] [facility] BED[facility] 06:55:[address] [facility] BASIC METABOLIC PANEL 2022-03-20 Mckeon, Quentin [facility] 05:20:00 [facility] XR CHEST 1 VIEW PORTABLE / 2022-03-19 Laurie Mendieta [facility] 13:25:00 [facility] XR CHEST 1 VIEW PORTABLE / 2022-03-[address] [facility] BED[facility] 06:20:[address] [facility] MAGNESIUM 2022-03-19 Linda Quentin B [facility] 05:45:00 [facility] XR CHEST 1 VIEW PORTABLE / 2022-03-18 Laurie Mendieta [facility] 16:21:00 [facility] XR CHEST 1 VIEW PORTABLE / 2022-03-[address] [facility] B[facility] 12:20:[address] [facility] XR CHEST 1 VIEW PORTABLE / 2022-03-[address] [facility] BED[facility] 09:46:[address] [facility] POCT-GLUCOSE METER 2022-03-14 Linda Quentin B [facility] 12:50:00 [facility] POCT-GLUCOSE METER 2022-03-14 Linda Quentin B [facility] 07:29:[address] [facility] [address] CHEST WITHOUT IV CONTRAST 2022-03-[address] [facility] 21:51:00 [facility] POCT-GLUCOSE METER 2022-03-13 Linda Quentin B [facility] 17:14:00 [facility] XR CHEST 1 VIEW PORTABLE / 2022-03-[address] [facility] 16:58:00 [facility] POCT-GLUCOSE METER 2022-03-13 Mckeon, Quentin Acuña [facility] 13:36:00 [facility] XR CHEST 1 VIEW PORTABLE / 2022-03-13 Mckeon, Quentin Acuña [facility] 12:24:00 [facility] POCT-GLUCOSE METER 2022-03-12 Mckeon, Quentin B [facility] 23:44:00 [facility] POCT-GLUCOSE METER 2022-03-12 Mckeon, Quentin B [facility] 17:40:00 [facility] XR CHEST 1 VIEW PORTABLE / 2022-03-12 Yandel [address] [facility] 15:08:00 [facility] CT CHEST WITHOUT IV CONTRAST 2022-03-12 Mckeon, Quentin B [facility] 13:54:00 [facility] POCT-GLUCOSE METER 2022-03-12 Mckeon, Quentin B [facility] 11:24:00 [facility] XR CHEST 1 VIEW PORTABLE / 2022-03-[address] [facility] 02:58:00 [facility] XR CHEST 1 VIEW PORTABLE / 2022-03-11 Mckeon, Quentin Acuña [facility] 20:13:00 [facility] XR CHEST 1 VIEW PORTABLE / 2022-03-11 Mckeon, Quentin Acuña [facility] 12:06:00 [facility] XR CHEST 1 VIEW PORTABLE / 2022-03-11 Nelson Song [facility] 00:53:00 [facility] POCT-GLUCOSE METER 2022-03-10 Mckeon, Quentin B [facility] 16:09:00 [facility] POCT-GLUCOSE METER 2022-03-10 Mckeon, Quentin B [facility] 10:54:00 [facility] ECG 12-LEAD 2022-03-09 Unknown, Hl7 Doctor [facility] 23:30:24 [facility] ECG 12-LEAD 2022-03-09 Unknown, Hl7 Doctor [facility] 23:30:24 [facility] ECG 12-LEAD 2022-03-09 Unknown, Hl7 Doctor [facility] 23:30:24 [facility] ECG 12-LEAD 2022-03-09 Unknown, Hl7 Doctor [facility] 23:27:25 [facility] ECG 12-LEAD 2022-03-09 Unknown, Hl7 Doctor [facility] 23:27:25 [facility] XR CHEST 1 VIEW PORTABLE / 2022-03-09 Sergey, Hali Gore Caitlyn [facility] 23:26:00 [facility] Center US ABDOMEN LIMITED 2022-03-[address] [facility] 21:25:00 [facility] APTT 2022-03-[address] [facility] 20:11:00 [facility] HIGH SENSITIVITY TROPONIN I 2022-03-09 Sergey, Hali Gore Caitlyn [facility] 17:50:00 Medical Center APTT 2022-03-[address] [facility] 13:06:00 [facility] HIGH SENSITIVITY TROPONIN I 2022-03-[address] [facility] 12:02:00 [facility] ECG 12-LEAD 2022-03-09 Unknown, Hl7 Doctor [facility] 10:45:00 [facility] ECG 12-LEAD 2022-03-09 Unknown, Hl7 Doctor [facility] 10:45:00 [facility] ECG 12-LEAD 2022-03-09 Unknown, Hl7 Doctor [facility] 10:43:41 [facility] ECG 12-LEAD 2022-03-09 Unknown, Hl7 Doctor [facility] 10:43:41 [facility] ECG 12-LEAD 2022-03-09 Unknown, Hl7 Doctor [facility] 10:43:41 [facility] 2D ECHO W/ DOPPLER 2022-03-[address] [facility] (CW/PW/COLOR) 09:06:00 [facility] HEPATITIS PANEL, ACUTE 2022-03-[address] [facility] 07:27:00 [facility] POCT-GLUCOSE METER 2022-03-[address] [facility] 07:25:00 [facility] APTT 2022-03-[address] [facility] 03:21:00 [facility] CBC W/PLT COUNT & AUTO 2022-03-[address] [facility] DIFFERENTIAL 03:21:00 [facility] COMPREHENSIVE METABOLIC PANEL 2022-03-09 Pe[facility] 03:21:00 [facility] HIGH SENSITIVITY TROPONIN I 2022-03-[address] [facility] 03:21:00 [facility] MAGNESIUM 2022-03-[address] [facility] 03:21:00 [facility] B-TYPE NATRIURETIC FACTOR 2022-03-[address] [facility] (BNP) 03:21:00 [facility] CBC W/PLT COUNT & AUTO 2022-03-[address] [facility] DIFFERENTIAL 03:21:00 [facility] XR CHEST 1 VIEW PORTABLE / 2022-03-09 Quentin Mckeon [facility] 02:51:00 [facility] ECG 12-LEAD 2022-03-09 Unknown, Hl7 Doctor [facility] 02:35:02 [facility] ECG 12-LEAD 2022-03-09 Unknown, Hl7 Doctor [facility] 02:35:02 [facility] ECG 12-LEAD 2022-03-09 Unknown, Hl7 Doctor [facility] 02:34:18 [facility] ECG 12-LEAD 2022-03-09 Unknown, Hl7 Doctor [facility] 02:34:18 [facility] ECG 12-LEAD 2022-03-[address] [facility] 02:32:32 [facility] ECG 12-LEAD 2022-03-09 Unknown, Hl7 Doctor [facility] 02:32:32 [facility] ECG 12-LEAD 2022-03-09 Unknown, Hl7 Doctor [facility] 02:32:32 [facility] PROTHROMBIN TIME/INR 2022-03-[address] [facility] 00:42:00 [facility] APTT 2022-03-[address] [facility] 00:42:00 [facility] CYSTATIN C WITH EGFR 2022-03-[address] [facility] 00:42:00 [facility] VITAMIN B12 2022-03-[address] [facility] 00:42:00 [facility] IRON, TIBC, % SAT. (WITHOUT 2022-03-[address] [facility] FERRITIN) 00:42:00 [facility] FERRITIN 2022-03-[address] [facility] 00:42:00 [facility] BLOOD CULTURE 2022-03-[address] [facility] 00:25:00 [facility] POCT-GLUCOSE METER 2022-03-[address] [facility] 00:23:00 Medical Center SARS-COV2/RT-PCR ([facility] & REF 2022-03-[address] [facility]) 23:40:00 [facility] BLOOD GAS, VENOUS 2022-03-[address] [facility] 23:27:00 [facility] COMPREHENSIVE METABOLIC PANEL 2022-03-[address] [facility] 23:26:00 [facility] CBC W/PLT COUNT & AUTO 2022-03-[address] [facility] DIFFER[facility] 23:26:00 [facility] HIGH SENSITIVITY TROPONIN I 2022-03-[address] [facility] 23:26:00 [facility] MAGNESIUM 2022-03-[address] [facility] 23:26:00 [facility] LACTIC ACID, VENOUS 2022-03-[address] [facility] 23:26:00 [facility] LIPID PANEL 2022-03-[address] [facility] 23:26:00 [facility] CBC W/PLT COUNT & AUTO 2022-03-[address] [facility] DIFFER[facility] 23:26:00 [facility] XR CHEST 1 VIEW PORTABLE / 2022-03-08 Peyman Gonzalez [facility] 22:59:00 [facility] VASCULAR DIAGRAM -SCAN 2022-03-08 Provider, Default [facility] 00:00:00 Scanning [facility] PERMANENT LAB REPORT - SCAN 2022-03-08 Provider, Default [facility] 00:00:00 [facility] CARDIAC CATH REPORT - SCAN 2022-03-08 Provider, Default [facility] 00:00:00 Scanning [facility] ALBUMIN 2020-12-04 Nelson Mayes [facility] xas 10:05:00 [facility] Branch MAGNESIUM 2020-12-04 Gerber [facility] xas 10:05:00 [facility] Branch BASIC METABOLIC PANEL (NA, K, 2020-12-04 Nelson Mayes [facility] CL, CO2, GLUCOSE, BUN, 10:05:00 Medical B ranch CREATININE, CA) CBC WITH DIFF 2020-12-04 Gerber [facility] xas 10:05:00 [facility] MAGNESIUM 2020-12-03 Gerber [facility] 11:08:00 Medical Branch BASIC METABOLIC PANEL (NA, K, 2020-12-03 Nelson [facility], CO2, GLUCOSE, BUN, 11:08:00 [facility] B ranch CREATININE, CA) CBC WITH DIFF 2020-12-03 Gerber [facility] xa 11:08:00 Medical Branch PHOSPHORUS 2020-12-01 [facility] xa 09:38:00 [facility] Branch MAGNESIUM 2020-12-01 [facility] xa 09:38:00 [facility] Branch BASIC METABOLIC PANEL (NA, K, 2020-12-01 [facility] CL, CO2, GLUCOSE, BUN, 09:38:00 [facility] ranch CREATININE, CA) CBC WITH DIFF 2020-12-01 [facility] 09:38:00 [facility] Branch SPUTUM CULTURE 2020-11-29 [facility] 00:[facility]00 [facility] AC PANEL 21 + LACTIC ACID 2020[facility]11-28 [facility] URINALYSIS 2020-11-28 [facility] 09:43:00 [facility] PNEUMOCOCCAL ANTIGEN 2020-11-28 [facility] 09:43:[facility] MAGNESIUM 2020-11-28 [facility] 09:25:00 [facility] HEPATIC FUNCTION PANEL 2020-11-28 Irma Webb [facility] ([id number]) (ALB,T.PRO,BILI 09:25:00 Medical Branch T,BU/BC,ALT,AST,ALK PHOS) BASIC METABOLIC PANEL (NA, K, 2020-11-28 Irma Webb [facility] CL, CO2, GLUCOSE, BUN, 09:25:00 Medical B ranch CREATININE, CA) CBC WITH DIFF 2020-11-28 [facility] 09:25:00 [facility] AC PANEL 21 + LACTIC ACID 2020-11-28 [facility] 09:25:00 [facility] XR RIBS 4+ VW BILATERAL 2020-11-28 Irma Webb [facility] 05:40:20 Medical Branch EXTERNAL PROVIDER RECORDS 2020-11-28 Doctor Unassigned, [facility] 05:01:00 [facility] AC PANEL 20 + LACTIC ACID 2020-11-28 Yemi Ford [facility] 03:42:00 Medical Branch ACUTE CARE VENOUS BLOOD GAS 2020-11-28 Irma Webb [facility] 00:44:00 Medical Branch PROCALCITONIN 2020-11-27 Irma Webb [facility] xas 23:38:00 Medical Branch TROPONIN I 2020-11-27 Irma Webb [facility] xa 23:00:00 Medical Branch ACUTE CARE ARTERIAL BLOOD GAS 2020-11-27 Irma Webb [facility] 23:00:00 Medical Branch MRSA / MSSA SCREEN BY PCR, 2020-11-27 Irma Webb [facility] NARES 23:00:00 Medical Branch HB ECG ROUTINE & RHYTHM STRIP 2020-11-27 Irma Webb [facility] 22:54:06 Medical Branch BLOOD CULTURE SCREEN 2020-11-27 Amelia Ziegler [facility] 16:29:00 Medical Branch XR CHEST 1 VW 2020-11-27 Amelia Ziegler [facility] xas 16:23:02 Medical Branch COVID-19 (ID NOW RAPID 2020-11-27 Amelia Ziegler [facility] TESTING) 15:48:00 Medical Branch LAB ONLY COVID INTERPRETATION 2020-11-27 Amelia Ziegler [facility] 15:48:00 Medical Branch BLOOD CULTURE SCREEN 2020-11-27 Amelia Ziegler [facility] 15:44:00 Medical Branch GAMMA GLUTAMYLTRANSFERASE 2020-11-27 Irma Webb [facility] 15:44:00 Medical Branch TROPONIN I 2020-11-27 Amelia Ziegler [facility] xa 15:44:00 Medical Branch COMP. METABOLIC PANEL ([id number]) 2020-11-27 Amelia Ziegler [facility] 15:44:00 Medical Branch CBC WITH DIFF 2020-11-27 Amelia Ziegler [facility] xa 15:44:00 Medical Branch N-TERMINAL PRO-BNP 2020-11-27 Irma Webb [facility] 15:44:00 [facility] AC PANEL 21 + LACTIC ACID 2020-11-27 Amelia Ziegler [facility] 15:44:00 Medical Branch CONSENT/REFUSAL FOR DIAGNOSIS 2020-11-27 Doctor Unassigned, [facility] AND TREATMENT 15:18:15 [facility] AGREEMENTS AUTHORIZATIONS AND 2020-11-27 Doctor Unassigned, [facility] IRREVOCABLE ASSIGNMENTS (FORM 05:01:00 [facility] C-REACTIVE PROTEIN 2020-11-13 Luz Maria Jessica [facility] 00:29:00 [facility] N-TERMINAL PRO-BNP 2020-11-13 Hugh [facility] 00:29:00 [facility] PROCALCITONIN 2020-11-13 Luz Maria Jessica [facility] 00:29:00 [facility] TRANSTHORACIC ECHO (TTE) 2020-11-12 Amanda Daniels [facility] COMPLETE 17:46:08 [facility] LOWER EXTREMITY ARTERIAL 2020-11-12 [facility] DUPLEX BILATERAL - BY 16:02:28 [facility] VASCULAR LAB BASIC METABOLIC PANEL (NA, K, 2020-11-12 Clarence Bach [facility] CL, CO2, GLUCOSE, BUN, 13:56:00 [facility] CREATININE, [place]) CBC WITH DIFF 2020-11-12 [facility] 13:55:00 [facility] BLOOD CULTURE SCREEN 2020-11-12 Hugh [facility] 11:17:00 [facility] BLOOD CULTURE SCREEN 2020-11-12 Hugh [facility] 11:12:00 [facility] THYROID STIMULATING HORMONE 2020-11-11 Amanda Daniels [facility] 22:51:00 [facility] VANCOMYCIN TROUGH 2020-11-11 Clarence Bach [facility] 22:51:[address] [place] [facility] [address] THORAX W CONTRAST 2020-11-10 Jeremiah [facility] 18:02:33 Medical Branch URINALYSIS 2020-11-10 Vidhya Fuentes [facility] ex 09:14:00 Medical Branch XR CHEST 1 VW 2020-11-10 Vidhya Fuentes [facility] ex 08:57:43 Medical Branch BLOOD CULTURE SCREEN 2020-11-10 Vidhya Fuentes [facility] 08:45:00 Medical Branch BLOOD CULTURE WORKUP 2020-11-10 Vidhya Fuentes [facility] 08:45:00 Medical Branch GRAM NEGATIVE BLOOD PATHOGENS 2020-11-10 Vidhya Fuentes [facility] DNA PROBE-AEROBIC 08:45:00 Medical Branch BLOOD CULTURE SCREEN 2020-11-10 Vidhya Fuentes [facility] 08:43:00 Medical Branch LACTIC ACID WHOLE BLOOD 2020-11-10 Vidhya Fuentes [facility] 08:43:00 Medical Branch BLOOD CULTURE WORKUP 2020-11-10 Vidhya Fuentes [facility] 08:43:00 Medical Branch FREE T4 2020-11-10 [facility]00 [facility] COMP. METABOLIC PANEL ([id number]) 2020-11-10 Vidhya Fuentes [facility] 08:42:00 Medical Branch CBC WITH DIFF 2020-11-10 Vidhya Fuentes [facility] ex 08:42:00 Medical Branch FREE T3 2020-11-10 [facility] 08:42[facility]00 [facility] COVID-19 (ID NOW RAPID 2020-11-10 Vidhya Fuentes [facility] TESTING) 08:42:00 Medical Branch LAB ONLY COVID INTERPRETATION 2020-11-10 Vidhya Fuentes [facility] 08:42:00 Medical Branch HB ECG ROUTINE & RHYTHM STRIP 2020-11-10 Vidhya Fuentes [facility] 08:40:08 Medical Branch NOTICE OF PRIVACY PRACTICES 2020-11-10 Doctor Unassigned, [facility] 08:36:16 [facility] CONSENT/REFUSAL FOR DIAGNOSIS 2020-11-10 Doctor Unassigned, [facility] AND TREATMENT 08:35:48 [facility] Plan of Care Planned Activity Planned Date Details Comments Source Future Scheduled 2022-06-[address] [facility] Test 00:00:00 (12+) [code = Medical Center DEPRESSION SCREENING (12+)] Future Scheduled 2022-06-08 FALLS RISK SCREENING [facility] Test 00:00:00 [code = FALLS RISK Medical C enter SCREENING] Future Scheduled 2022-06-[address] [facility] 00:00[facility]00 2) [code = [facility] VACCINES (1 of 2)] Future Scheduled 1999 SHINGLES VACCINES ([address] [facility] 00:00[facility]00 [facility] Future Scheduled 1999 SHINGLES VACCINES ([address] [facility] 00:00:00 2) [facility] of 2)] Future Scheduled [...] Cessation Counseling and Screening (12+)] Future Scheduled [address] [facility] Test 00:00:00 Counseling and Medical Cente r Screening (12+) [code = Tobacco Cessation Counseling and Screening (12+)] Future Scheduled 1955 PNEUMOCOCCAL 65+ YRS ([address] [facility] Test 00:00:00 - PCV) [code = Medical Cente r PNEUMOCOCCAL 65+ YRS (1 - PCV)] Future Scheduled 1955 PNEUMOCOCCAL 65+ YRS (1 [...] breast Medical C enter (procedure) [code = 789775517] Future Scheduled 1949 CT Colonography (combo) [facility] Test 00:00:00 [code = CT Colonography [facility] (combo)] Future Scheduled 1949 Screening for malignant [facility] Test 00:00:00 neoplasm of colon Medical Ce nter (procedure) [code = 063466438] Future Scheduled 1949 Screening for malignant [facility] Test 00:00:00 neoplasm of colon Medical Ce nter (procedure) [code = 612695530] Future Scheduled 1949 DXA SCAN [code = DXA [facility] Test 00:00:00 SCAN] [facility] Future Scheduled 1949 Screening for malignant [facility] Test 00:00:00 neoplasm of colon Medical Ce nter (procedure) [code = 641114035] Future Scheduled 1949 Screening for malignant [facility] Test 00:00:00 neoplasm of colon Medical Ce nter (procedure) [code = 031612777] Future Scheduled 1949 Sigmoidoscopy [facility]code = [facility] Screening for malignant [facility] Test 00:00:00 neoplasm of breast Medical C enter (procedure) [code = 634772354] Future Scheduled 1949 CT Colonography (combo) [facility] Test 00:00:00 [code = CT Colonography [facility] (combo)] Future Scheduled 1949 Screening for malignant [facility] Test 00:00:00 neoplasm of colon Medical Ce nter (procedure) [code = 264131310] Future Scheduled 1949 Screening for malignant [facility] Test 00:00:00 neoplasm of colon Medical Ce nter (procedure) [code = [id number]] Future Scheduled 1950 DXA SCAN [code = DXA [facility] Test 00:00:00 SCAN] [facility] Future Scheduled 1949 Screening for malignant [facility] Test 00:00:00 neoplasm of colon Medical Ce nter (procedure) [code = 702811200] Future Scheduled 1949 Screening for malignant [facility] Test 00:00:00 neoplasm of colon Medical Ce nter (procedure) [code = 273974030] Future Scheduled 1950 Sigmoidoscopy [facility]code = [facility]] [facility] Future Scheduled 1949 Screening for malignant [facility] Test 00:00:00 neoplasm of breast Medical C enter (procedure) [code = 367728705] Future Scheduled 1949 CT Colonography (combo) [facility] Test 00:00:00 [code = CT Colonography [facility] (combo)] Future Scheduled 1949 Screening for malignant [facility] Test 00:00:00 neoplasm of colon Medical Ce nter (procedure) [code = 512153899] Future Scheduled 1949 Screening for malignant [facility] Test 00:00:00 neoplasm of colon Medical Ce nter (procedure) [code = 706350951] Future Scheduled 1949 DXA SCAN [code = DXA [facility] Test 00:00:00 SCAN] [facility] Future Scheduled 1949 Screening for malignant [facility] Test 00:00:00 neoplasm of colon Medical Ce nter (procedure) [code = 047553751] Future Scheduled 1949 Screening for malignant [facility] Test 00:00:00 neoplasm of colon Medical Ce nter (procedure) [code = 760294022] Future Scheduled 1950 Sigmoidoscopy [code = [facility] 00[facility] S[facility]oscopy] [facility] Cent[facility] Encounters Start End Encounter Admission Attending Care Care Encounter Source Date/Time Date/Time Type Type Clinicians Facility Department ID 2020-12-14 Inpatient ER ADHI, [facility] Medical ICU [id number] [facility] 20:10:00 CHAO 2022-08-12 2022-08-12 [facility] 1.2.840.114 [id number] Univers 00:00:00 00:00:00 [facility] Colibri Heart Valve 350.1.13.10 it y [facility] 4.2.7.2.686 Juni as DANIELLE?BLEA [phone] Nm xiomy HANEY [address] [place] [address] MEDICAL OFFICE [facility] 2022-08-12 2022-08-12 Orders Doctor CLAIRE 1.2.840.114 [id number] Univers 00:00:00 00:00:00 Only Unassigned, MAGDA 350.1.13.10 ity of [place]verda [facility] 4.2.7.2.686 Juni as [phone] [address] 2022-08-11 2022-08-11 [facility] 1.2.840.114 [id number] Univers 00:00:00 00:00:00 Kirk Colibri Heart Valve 350.1.13.10 it y of [place] 4.2.7.2.686 Juni as DANIELLE?BLEA [phone] Nm xiomy HANEY [address] [place] [address] 2022-03-08 2022-03-29 Inpatient ER ZORAIDA, [facility] Medical ICU [id number] [facility] 22:22:00 13:40:00 MARTHA 2022-03-08 2022-03-29 Hospital ER [facility] [id number] [facility] 22:22:00 13:40:00 Encounter Martha Conway Kimberly [facility] 2022-03-08 2022-03-29 [facility] [id number] [facility] 22:22:00 13:40:00 Encounter Martha Conway Mary Kay Wynn [facility] 2022-03-27 2022-03-[address] [facility] [id number] 00:[facility]00 00:00:00 Only [facility] 2022-03-27 2022-03-[address] [facility] [id number] 00:[facility]00 00:00:00 Only [facility] 2022-03-09 2022-03-09 Outpatient [facility] [id number] [facility] 00:00:00 23:59:00 [facility] 2022-03-09 2022-03-[address] [facility] [id number] 00:00:00 00:00:00 [facility] 2022-03-09 2022-03-[address] [facility] [id number] 00:00:00 00:00:00 [facility] 2020-12-14 2020-12-14 Outpatient [facility] [id number] [facility] 00:00:00 23:59:00 [facility] 2020-12-05 2020-12-05 Transition Radha Paula 1.2.840.114 [id number] 00:00:00 00:00:00 of Care Lele Hanley 350.1.13.10 [place] 4.2.7.2.686 [id number] [facility] 2020-12-05 2020-12-05 Transition Radha Paula 1.2.840.114 [id number] [facility] 00:00:00 00:00:00 of Care Lele Hanley 350.1.13.10 ity of [place] 4.2.7.2.686 [place] [phone] [place] [address] [place] 2020-11-27 2020-12-04 [facility] Amelia Ziegler 1.2.840.1 14 [id number] 10:20:00 19:30:00 Encounter Kashif Strong 350.1.13.10 [facility] 4.2.7.2 .686 [id number] [facility] 2020-11-27 2020-12-04 Hospital Amelia Ziegler Alisonjacob Roach 1.2.840.1 14 [id number] Univers 10:20:00 19:30:00 Encounter Kashif Strong Hildreth 350.1.13.10 ity of [facility] 4.2.7.2 .686 [place] [id number] [facility] 100 [address] 2020-11-27 2020-11-27 Emergency X Amelia ZIEGLER [facility] ERT [id number] Univers 10:20:00 10:20:00 ity of [facility] 2020-11-27 2020-11-27 Orders Doctor CLAIRE 1.2.840.114 [id number] 00:00:00 00:00:00 Only Unassigned, MAGDA 350.1.13.10 [place] [facility] 4.2.7.2.686 [id number] 009 2020-11-27 2020-11-27 Orders Doctor RANGEL 1.2.840.114 [id number] Univers 00:00:00 00:00:00 Only Unassigned, MAGDA 350.1.13.10 ity of [place] [facility] 4.2.7.2.686 Juni as [phone] [facility] 009 Branch 2020-11-14 2020-11-14 Transition Radha Paula 1.2.840.114 [id number] 00:00:00 00:00:00 of Care Lele A Hanley 350.1.13.10 [place] 4.2.7.2.686 [id number] 403 2020-11-14 2020-11-14 Transition Nisa Shearn 1.2.840.114 [id number] Univers 00:00:00 00:00:00 of Care Lele A Hanley 350.1.13.10 ity of [place] 4.2.7.2.[place] [id number] [facility] 403 Branch 2020-11-10 2020-11-13 [facility] Vidhya Fuentes [facility] 1.2.840. 114 [id number] 03:31:00 16:48:00 Encounter Clarence Bachton 350.1.13.10 HughkristineAmanda 4.2.7.2.686 [place] [id number] 2020-11-10 2020-11-13 [facility] Vidhya Fuentes [facility] 1.2.840. 114 [id number] Univers 03:31:00 16:48:00 Encounter Clarence Bach 350.1.13.10 ity of Amanda Daniels 4.2.7.2.686 [facility] [id number] [facility] 08 Branch 2020-11-10 2020-11-10 Emergency X [facility] ERT [id number] Univers 03:31:00 03:31:00 [facility] Results Test Description Test Time Test Comments Results Result Comments Source MAGNESIUM 2022-04-29 12:31:02 Test Item Value Reference Range Interpretation Comme nts MAGNESIUM (BEAKER) (test code = 627) 2.0 mg/dL 1.6-2.6 BASIC METABOLIC [id number] 08:50:55 Test Item Value Reference Range Interpretation [...] high >=90 G2 Mildly decreased 60-89 G3a Mild ly to moderately 45-5 9 G3b Moderately to [...] appl icable for dialysis patien ts BLOOD [id number] 11:01:12 Test Item Value Reference Range Interpretation Comments CULTURE (BEAKER) (test No growth in 5 days code = 1095) SARS-COV2/RT-PCR ([facility])2022-03-30 11:31:45 Test Item Value Reference Range Interpretation Comments SARS-COV2/RT-PCR (test Negative Not Detected, Negative, code = 3188889) See external report for linked test SARS-COV-2 PERFORMING LAB [facility] (test code = 0197924) Negative result for this test determines that [...] of the Act.Fact Sheet for Healthcare Prov iders:https://www.intelloCut/sites/default/files/product/documents/Fact_Sheet_HC _Sgbzgcemp_Drvp_ZDUA-SjO-5.pdfFact Sheet for Healthcare Patients:https://www.intelloCut/sites/default/files/product/docume nts/Iztd_Htish_Qrblwazn_Taav_KCYY-TbC-8.pdfPerforming Laboratory:[facility], [place] [address]VZD, CHEST, 1 VIEW, NON [id number] 13:36:00 [facility] 1950 Sex: FFINAL [...] Leblanc Verified Date/Time: 03/29/2022 13:36:13 Reading Location: [address] Reading Room Electronically signedby: TEDDY LEBLANC MD on 03/29/2022 01:36 PM COMPREHENSIVE METABOLIC [id number] 05:29:56 Test Item Value Reference Range Interpretation [...] eGF R is based on the CKD-EPI 202 equation that d oes not use a race coefficientEsti mated GFR is not as accur ate as Creatinine Meghana dick in predicting glom erular filtration rate . Estimated GFR is not appl icable for dialysis patien ts District Or District Office Director ID - [id number] 05:29:56 Test Item Value Reference Range Interpretation Comments MAGNESIUM (BEAKER) (test code = 2.1 mg/dL 1.6-2.6 627) District Or District Office Director ID - ADMINCBC W/PLT COUNT & AUTO [id number] 04:47:02 Test Item Value Reference Range Interpretation [...] PERCENT (BEAKER) (test code = 2801) SARS-CoV2/RT-PCR ([facility])2022-03-28 17:05:17 Test Item Value Reference Range Interpretation Comments SARS-COV2/RT-PCR Negative Negative The SARS-Co V-2 (test code = target nucleic acids 19607-5) are not detecte d in this specimen. [...] from individuals suspected of COVID-19 by the [facility] ide. SARS-COV-2 [facility] (test code = Aisyld8865 [facility] [address]-3) [place] [address] ph: [phone] CHRISTINE (test code = This test has [...] revoked sooner. Fact Sheet for Healthcare Providers: https://www.i-Human Patients .Nafham/Documents/Xper t%20Xpress%20SARS%2 0CoV-2/Fact%20Sheet s/302-3802%20SARS-C OV-2%20HEALTHCARE%2 0PROVIDERS%20FACT%2 0SHEET.pdf Fact Sheet for Healthcare Patients: https://www.AntriaBio/Documents/Xper t%20Xpress%20SARS%2 0CoV-2/Fact%20Sheet s/302-3801%20SARS-C OV-2%20PATIENT%20FA CT%20SHEET.pdf [facility])2022-03-28 17:05:17 Test Item Value Reference Range Interpretation Comments SARS-COV2/RT-PCR Negative Negative The SARS-Co V-2 (test code = target nucleic acids 43097-5) are not detecte d in this specimen. [...] from individuals suspected of COVID-19 by the [facility] ide. SARS-COV-2 [facility]formed [facility] dical (test code = Lyfaav7332 [facility] [address]-8) [place] [address] ph: [phone] CHRISTINE (test code = This test has [...] revoked sooner. Fact Sheet for Healthcare Providers: https://www.AntriaBio/Documents/Xper t%20Xpress%20SARS%2 0CoV-2/Fact%20Sheet s/302-3802%20SARS-C OV-2%20HEALTHCARE%2 0PROVIDERS%20FACT%2 0SHEET.pdf Fact Sheet for Healthcare Patients: https://www.AntriaBio/Documents/Xper t%20Xpress%20SARS%2 0CoV-2/Fact%20Sheet s/302-3801%20SARS-C OV-2%20PATIENT%20FA CT%20SHEET.pdf [facility])2022-03-28 17:05:17 Test Item Value Reference Range Interpretation Comments SARS-COV2/RT-PCR Negative Negative The SARS-Co V-2 target (test code = nucleic acids a re not 7918599) detected in [facility] s specimen. Negat hermila results do not [...] individuals dave pected of COVID-19 by the [facility] ide. SARS-COV-2 [facility] ([facility] code = 5009515) [place], [place] [address]ni: This test has been authorized by FDA [...] revoked sooner. Fact Sheet for Healthcare Providers: https://www.OneShift m/Documents/Xpert%20Xpress%20SARS%20CoV-2/Fact%20Sheets/302-3802%72YYWX-YZK-8%20 HEALTHCARE%20PROVIDERS%20FACT%20SHEET.pdf Fact Sheet for Healthcare Patients: https://www.Medical Envelope/Documents/Xpert%20Xp ress%20SARS%20CoV-2/Fact%20Sheets/302-3801%11DEFB-YQC-2%20PATIENT%20FACT%20SHEET .pdfRAD, CHEST, 1 VIEW, NON [id number] 07:46:00daily am portable [facility] : 1950 Sex: FFINAL [...] prior exam. No pneumothorax identified.Signed: Hue Smith Verified Date/Time: 03/28/2022 07:46:54 Reading Location: [address] Reading Room BLOOD [id number] 02:59:28 Test Item Value Reference Range Interpretation Comments CULTURE (BEAKER) (test No growth in 5 days code = 1095) The specimen volume collected for this blood culture was below the optimum (10 mL per bottle or 20 mL total). Use of lower volumes may adversely affect recovery and/or detection times of some organisms.POC-Glucose [id number] 12:54:47 Test Item Value Reference Range Interpretation Comments POC-Glucose Meter (test 120 mg/dL 70-110 H : TE STED AT [facility] code = 1538) [address] [facility], 770 30: District Or District Office Director/Techni ethel ID = [id number] for Luz Maria Pierson Lab Interpretation (test Abnormal code = 43891-3) [facility] [id number] 12:54:47 Test Item Value Reference Range Interpretation Comments POC-Glucose Meter (test 120 mg/dL 70-110 H : TE STED AT [facility] code = 1538) [address] [facility], 770 30: District Or District Office Director/Techni ethel ID = [id number] for Luz Maria Pierson Lab Interpretation (test Abnormal code = 19704-6) [facility]-GLUCOSE [id number] 12:54:47 Test Item Value Reference Range Interpretation Comments POC-GLUCOSE METER 120 mg/dL 70-110 H : TESTED A T [facility] 6720 (BEAKER) (test code = [facility] [place] [facility], 1538) [address]: District Or District Office Director/Techni ethel ID = [id number] for Luz Maria Morse RAD, CHEST, 1 VIEW, NON [id number] 12:39:00 [facility] : 1950 Sex: FFINAL [...] the right chest wall. Signed: Hue Smith Verified Date/Time: 03/27/2022 12:39:33 Reading Location: [address] Reading Room POCT-GLUCOSE [id number] 12:35:59 Test Item Value Reference Range Interpretation Comments POC-GLUCOSE METER 91 mg/dL 70-110 : TESTED A T [facility] 6720 ([facility]) (test code = [facility], 1538) [address]: District Or District Office Director/Techni ethel ID = [id number] for Catherine Mcintosh POCT-GLUCOSE [id number] 12:04:55 Test Item Value Reference Range Interpretation Comments POC-GLUCOSE METER 121 mg/dL 70-110 H : TESTED A T [facility] 6720 ([facility]) (test code = [facility], 1538) [address]: District Or District Office Director/Techni ethel ID = [id number] for IB RAHIM, SERKALEM POCT-GLUCOSE [id number] 11:56:34 Test Item Value Reference Range Interpretation Comments POC-GLUCOSE METER 121 mg/dL 70-110 H : TESTED A T [facility] 6720 ([facility]) (test code = [facility], 1538) [address]: District Or District Office Director/Techni ethel ID = [id number] for IB RAHIM, SERKALEM POCT-GLUCOSE [id number] 11:18:21 Test Item Value Reference Range Interpretation Comments POC-GLUCOSE METER 115 mg/dL 70-110 H : Notified RN/MD: TESTED ([facility]) (test code AT [facility] = 1538) [facility], 770 30: District Or District Office Director/Techni ethel ID = [id number] for SUGU , SHEENAMOL POCT-GLUCOSE [id number] 11:05:54 Test Item Value Reference Range Interpretation Comments POC-GLUCOSE METER 143 mg/dL 70-110 H : TESTED A T [facility] 6720 (BEAKER) (test code = [facility], 1538) [address]: District Or District Office Director/Techni ethel ID = [id number] for KATHY RIN, BRITTANY POCT-GLUCOSE [id number] 10:50:59 Test Item Value Reference Range Interpretation Comments POC-GLUCOSE METER 120 mg/dL 70-110 H : TESTED A T [facility] 6720 (BEAKER) (test code = [facility], 1538) [address]: District Or District Office Director/Techni ethel ID = [id number] for MA RIN, BRITTANY POCT-GLUCOSE [id number] 08:57:10 Test Item Value Reference Range Interpretation Comments POC-GLUCOSE METER 96 mg/dL 70-110 : TESTED A T [facility] 6720 ([facility]) (test code = [facility], 1538) [address]: District Or District Office Director/Techni ethel ID = [id number] for LLOY D, TIKEYA POCT-GLUCOSE [id number] 08:40:45 Test Item Value Reference Range Interpretation Comments POC-GLUCOSE METER 113 mg/dL 70-110 H : TESTED A T [facility] 6720 ([employer]) (test code = [facility], 1538) [address]: District Or District Office Director/Techni ethel ID = [id number] for LL OYD, TIKEYA RAD, CHEST, 1 VIEW, NON [id number] 07:47:00downtime order [facility] : 1950 Sex: FFINAL [...] the right chest wall. Signed: Hue Smith MDRbrandtort Verified Date/Time: 03/27/2022 07:47:18 Reading Location: [address] Reading Room RAD, CHEST, 1 VIEW, NON [id number] 18:31:0024T-54 [facility] : 1950 Sex: FFINAL [...] 03/26/2022 18:31:51 RAD, CHEST, 1 VIEW, NON [id number] 08:42:00downtime order [facility] : 1950 Sex: [...] shadow is borderline enlarged. Signed: Dominique Page MDReport Verified Date/Time: 03/26/2022 08:42:21 RAD, CHEST, 1 VIEW, NON [id number] 09:24:00downtime order [facility] : 1950 Sex: FFINAL [...] Smith Verified Date/Time: 03/25/2022 09:24:56 Reading Location: [address] Reading Room RAD, CHEST, 1 VIEW, NON [id number] 09:19:00downtime order [facility] : 1950 Sex: FFINAL [...] the right chest wall. Signed: Hue Smith Verified Date/Time: 03/24/2022 09:19:33 Reading Location: [address] Reading Room RAD, CHEST, 1 VIEW, NON [id number] 08:13:00downtime order [facility] : 1950 Sex: FFINAL REPORT EXAMINATION: RAD, CHEST, 1 VIEW, NON DEPT. INDICATION: 72-year-old female, evaluate pneumothorax. COMPARISON: Chest radiograph dated 03/22/2022. FINDINGS/ IMPRESSION:A right pleural catheter is noted in stable position. Possible trace right apical pneumothorax. Moderate tosevere right subcutaneous emphysema. Cardiac silhouette is borderline enlarged. Mildly coarsened interstitial lung markings. Signed: Dominique Guilleneport Verified Date/Time: 03/23/2022 08:13:11 Reading Location: [facility] C013X [facility] Consult Reading Room RAD, CHEST, 1 VIEW, NON [id number] 08:07:00downtime order [facility] : 1950 Sex: FFINAL REPORT RAD, CHEST, 1 VIEW, NON DEPT INDICATION: eval pneumothorax am portable COMPARISON: Prior day's exam FINDINGS: Portable frontal view of the chest. IMPRESSION: Support Lines:Right pleural catheter. Lungs and pleura: Small right apical pneumothorax persists. Lungs are otherwise predominantly clear. Heart and mediastinum: Stable contours. Additional findings: None. Signed: Rubi Bullard MDReport Verified Date/Time: 03/22/2022 08:07:12 RAD, CHEST, 1 VIEW, NON [id number] 13:49:00 [facility] : 1950 Sex: FFINAL [...] and chest wall subcutaneous emphysema. Signed: Henrik Arceoort Verified Date/Time: 03/21/2022 13:49:11 RAD, CHEST, 1 VIEW, NON DEPT 2022-03-20 15:27:00 [facility] : 1950 Sex: FFINAL [...] 1 VIEW, NON DEPT 2022-03-20 13:35:00downtime order [facility] : 1950 Sex: FFINAL [...] 03/20/2022 01:35 PMRAD, CHEST, 1 VIEW, NON [id number] 15:32:00 [facility] : 1950 Sex: FFINAL REPORT RAD, CHEST, 1 VIEW, NON DEPT INDICATION: PATIENT OF SUCTION COMPARISON: Prior day's exam FINDINGS: Portable frontal view of the chest. IMPRESSION: Support Lines: Right-sided chest tube unchanged in appearance. Lungs and pleura: Scattered interstitial thickening and minimal basilar scarring or atelectasis is stable in appearance. Small right apical pneumothorax not significantly changed allowing for differences in image acquisition angleHeart and mediastinum: Stable contours. Additional findings: Right chest and neck subcutaneous emphysema similar in appearance. Signed:Henrik Arceo MDReport Verified Date/Time: 03/19/2022 15:32:10 RAD, CHEST, 1 VIEW, NON DEPT 2022-03-19 13:27:00downtime order [facility] : 1950 Sex: FFINAL REPORT RAD, CHEST, 1 VIEW, NON DEPT INDICATION: eval pneumothorax am portable COMPARISON: Prior day's exam FINDINGS: Portable frontal view of the chest. IMPRESSION: Support Lines:No significant change. Lungs and pleura: Biapical and bibasilar reticular opacities are stable Traceresidual right apical pneumothorax is unchanged. Stable pulmonary aeration.Heart and mediastinum: Sta ble contours. Additional findings: Right chest wall and neck base subcutaneous emphysema is stable. Signed: Henrik Arceo MDReport Verified Date/Time: 03/19/2022 13:27:14 RAD, CHEST, 1 VIEW, NON [id number] 17:24:00 [facility] : 1950 Sex: FFINAL [...] pneumothorax. Stable hazy right basilar opacity. Signed:Jose Praterort Verified Date/Time: 03/18/2022 17:24:25 RAD, CHEST, 1 VIEW, NON [id number] 14:01:00 [facility] : 1950 Sex: FFINAL [...] hazy right basilar opacity. Signed: Gustavo Chávez MDReport Verified Date/Time: 03/16 14:01:11 RAD, CHEST, 1 VIEW, NON [id number] 10:58:00 [facility] : 1950 Sex: [...] small right pleural effusion. Signed: Gustavo Chávez [facility] Verified Date/Time: 03/15/2022 10:58:39 CT, CHEST, WITHOUT [id number] 08:54:00 [facility] : 1950 Sex: [...] MDReport Verified Date/Time: 03/14/2022 08:54:40 Reading Location: [facility] Diagnostic Imaging Reading Room - [place] [address] RAD, CHEST, 1 VIEW, NON [id number] 18:07:00 [facility] : 1950 Sex: [...] small left pleural effusion. Signed: Gustavo Chávez [facility] Verified Date/Time: 03/13/2022 18:07:38 RAD, CHEST, 1 VIEW, NON DEPT 2022-03-13 13:42:00 [facility] : 1950 Sex: FFINAL REPORT CLINICAL HISTORY: SOB TECHNIQUE: 1 view of the chest. COMPARISON: 03/12/2022 IMPRESSION: Right chest tube again seen. Severe right chest wall subcutaneous emphysema again noted with left supraclavicular involvement. Small right apical pneumothorax increased. Left lung base opacity and a small left pleural effusion unchanged. Trace right effusion unchanged. No cardiomegaly.Signed: Trent Mcdonough MDReport Verified Date/Time: 03/13/2022 13:42:55 Reading Location: [address] Reading Room RAD, CHEST, 1 VIEW, NON [id number] 15:21:00 [facility] : 1950 Sex: FFINAL [...] is magnified by technique. Signed: Trent Mcdonough MDReport Verified Date/Time: 03/12/2022 15:21:00 Reading Location: [address] Reading [address] CT, CHEST, WITHOUT [id number] 15:13:00pt with Knemothorax and sub emphysema. 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 Age-indeterminate. Signed: [facility] Verified Date/Time: 03/12/2022 15:13:01 RAD, CHEST, 1 VIEW, NON [id number] 09:28:00 [facility] : 1950 Sex: FFINAL [...] is magnified by technique. Signed: Trent Mcdonough MDReport Verified Date/Time: 03/12/2022 09:28:54 Reading Location: [address] Reading Room RAD, CHEST, 1 VIEW, NON [id number] 20:25:00 [facility] : 1950 Sex: FFINAL [...] CHEST, 1 VIEW, NON DEPT 2022-03-11 12:49:00 [facility] : 1950 Sex: FFINAL [...] There is no cardiomegaly. Signed: Trent Mcdonough Verified Date/Time: 03/11/2022 12:49:10 Reading Location: [address] Reading Room RAD, CHEST, 1 VIEW, NON [id number] 04:50:00 [facility] : 1950 Sex: FFINAL [...] tissue emphysema on the right. Signed: Navdeep Jamisonwaterbury hospital Verified Date/Time: 03/11/2022 04:50:39 U/S, ABDOMINAL, [id number] 00:56:00Abdomen limited area? Add comment if clarification is needed.->Liver Reason for exam:->[facility]aminitis [facility] 1950 Sex: FFINAL [...] the right upper quadrant. Signed: Navdeep Jamison MDReport Verified Date/Time: 03/10/2022 00:56:46 RAD, CHEST, 1 VIEW, NON [id number] 23:31:00[facility] : 1950 Sex: [...] left base effusion, approximately stable. Signed: Melodie Begumepcory Verified Date/Time: 03/09/2022 23:31:07 [id number] 20:29:49 Test Item Value Reference Range Interpretation Comments PARTIAL THROMBOPLASTIN TIME 60.3 seconds 22.5-36.0 H (BEAKER) (test code = 760) HIGH SENSITIVITY TROPONIN [id number] 18:55:40 Test Item Value Reference Range Interpretation Comments HIGH SENSITIVITY 10977 pg/ml See_Comment HH [Automated message] TROPONIN I (test code The sy stem which = [id number]) generated this result transmitted ref erence range: <=17. Th e reference range was not used to int erpret this result as normal/abnormal . District Or District Office Director ID - LEONCIO LThe ANAESTHESIOLOGIST STAT High Sensitivity Troponin-I results should be used in conjunction with other diagnostic information such as ECG, clinical observations and information, and patient symptoms to aid in the diagnosis of [facility].District Or District Office Director ID - LEONCIO L2D Echo W/Doppler(CW/PW/Color)2022-03-09 17:54:15Ejection FractionSLEH ECHO [facility] Echo W/Doppler(CW/PW/Color)2022-03-09 17:54:15Ejection [facility]SLEH [facility] 13:26:41 Test Item Value Reference Range Interpretation Comments PARTIAL THROMBOPLASTIN TIME 47.1 seconds 22.5-36.0 H (BEAKER) (test code = 760) HIGH SENSITIVITY TROPONIN [id number] 13:06:27 Test Item Value Reference Range Interpretation Comments HIGH SENSITIVITY 93550 pg/ml See_Comment HH [Automated message] TROPONIN I (test code The sy stem which = [id number]) generated this result transmitted ref erence range: <=17. Th e reference range was not used to int erpret this result as normal/abnormal . District Or District Office Director ID - CELESTE DThe ANAESTHESIOLOGIST STAT High Sensitivity Troponin-I results should be used in conjunction with other diagnostic information such as ECG, clinical observations and information, and patient symptoms to aid in the diagnosis of [facility].District Or District Office Director ID - CELESTE DHEPATITIS PANEL, [id number] 11:49:42 Test Item Value Reference Range Interpretation Comments HEPATITIS A IGM ANTIBODY (BEAKER) Nonreactive Nonreactive (test code = 498) HEPATITIS B CORE IGM ANTIBODY Nonreactive Nonreactive (BEAKER) (test code = 645) HEPATITIS C ANTIBODY (BEAKER) Nonreactive Nonreactive (test code = 367) HEPATITIS B SURFACE ANTIGEN (2) Nonreactive Nonreactive (BEAKER) (test code = 2585) District Or District Office Director ID Juan ALONSO DLIPID [id number] 11:01:28 Test Item Value Reference Range Interpretation Comments TRIGLYCERIDES (BEAKER) 40 mg/dL Speci men slightly (test code = 540) hemolyzed CHOLESTEROL (BEAKER) 146 mg/dL Specime n slightly (test code = 631) hemolyzed HDL CHOLESTEROL (BEAKER) 55 mg/dL (test code = 976) LDL CHOLESTEROL 83 mg/dL CALCULATED (BEAKER) (test code = 633) Triglyceride Reference Range: Low Risk <150 Borderline 150-199 High Risk 200- 499 Very High Risk >=500Cholesterol Reference Range: Low Risk <200 Borderline 200-239 High Risk >240HDL Cholesterol Reference Range: Low Risk >=60 High Risk <40LDL Cholesterol Reference Range: Optimal <100 Near Optimal 100-129 Borderline 130-159 High 160-189 Very High >=190 District Or District Office Director ID Juan ALONSO DPOCT-GLUCOSE [id number] 07:36:41 Test Item Value Reference Range Interpretation Comments POC-GLUCOSE METER 123 mg/dL 70-110 H : TESTED A T [facility] 6720 (BEAKER) (test code = [place] [facility], 1538) [address]: District Or District Office Director/Techni tehel ID = [id number] for Ly nch, Catherine RAD, CHEST, 1 VIEW, NON [id number] 07:05:00Reason for exam:->f/u R PTXShould this be performed at the bedside?->Yes [facility] 1950 Sex: FFINAL [...] changes. Additional findings: None. Signed: Rubi Cerda Verified Date/Time: 03/09/2022 07:05:49 [id number] 06:21:45 Test Item Value Reference Range Interpretation Comments FERRITIN (BEAKER) (test code = 78.90 ng/mL 5.00-275.00 361) District Or District Office Director ID - LEONCIO LVITAMIN [id number] 06:21:44 Test Item Value Reference Range Interpretation Comments VITAMIN B12 (BEAKER) (test code = 1093 pg/mL 213-816 H 774) District Or District Office Director ID - LEONCIO LHIGH SENSITIVITY TROPONIN [id number] 05:02:11 Test Item Value Reference Range Interpretation Comments HIGH SENSITIVITY 64737 pg/ml See_Comment HH [Automated message] TROPONIN I (test code The sy stem which = [id number]) generated this result transmitted ref erence range: <=17. Th e reference range was not used to int erpret this result as normal/abnormal . District Or District Office Director ID - LEONCIO LThe ANAESTHESIOLOGIST STAT High Sensitivity Troponin-I results should be used in conjunction with other diagnostic information such as ECG, clinical observations and information, and patient symptoms to aid in the diagnosis of [facility].District Or District Office Director ID - LEONCIO LCOMPREHENSIVE METABOLIC [id number] 04:16:10 Test Item Value Reference Range Interpretation [...] (test code = 347) EGFR (BEAKER) 88 Interpretati on of eGFR (test code = 1092) mL/min/1.73 [...] not appl icable for dialysis patien ts District Or District Office Director ID - IFEANYIAYA [id number] 04:16:10 Test Item Value Reference Range Interpretation Comments MAGNESIUM (BEAKER) (test code = 1.8 mg/dL 1.6-2.6 627) District Or District Office Director ID - LEONCIO [id number] 04:14:40 Test Item Value Reference Range Interpretation Comments PARTIAL THROMBOPLASTIN TIME 177.0 seconds 22.5-36.0 HH (BEAKER) (test code = 760) B-TYPE NATRIURETIC FACTOR (BNP)2022-03-09 04:01:03 Test Item Value Reference Range Interpretation Comments B-TYPE NATRIURETIC PEPTIDE (BEAKER) 875 pg/mL 0-100 H (test code = 700) District Or District Office Director ID Juan FANG LCBC W/PLT COUNT & AUTO [id number] 03:53:57 Test Item Value Reference Range Interpretation [...] = 2801) RAD, CHEST, 1 VIEW, NON [id number] 02:56:00Reason for exam:- >pneumothoraxShould this be performed at the bedside?->Yes [facility] 1950 Sex: FFINAL [...] within the right chest wall.. Signed: Navdeep Jamison [facility] Verified Date/Time: 03/09/2022 02:56:56 IRON, TIBC, % SAT. (WITHOUT FERRITIN) 2022-03-09 02:13:25 Test Item Value Reference Range Interpretation Comments IRON (BEAKER) (test code = 547) 49.0 ug/dL 40.0-160.0 TOTAL IRON BINDING CAPACITY 285 ug/dL 250-450 (BEAKER) (test code = 769) IRON % SATURATION (2) (BEAKER) 17 % 20-55 L (test code = 2590) District Or District Office Director SHREE Martinez LEONCIO [id number] 01:11:36 Test Item Value Reference Range Interpretation Comments PARTIAL THROMBOPLASTIN TIME 28.0 seconds 22.5-36.0 (BEAKER) (test code = 760) PROTHROMBIN TIME/[id number] 01:11:00 Test Item Value Reference Range Interpretation Comments PROTIME (BEAKER) 15.2 seconds 11.9-14.2 H (test code = 759) INR (BEAKER) (test 1.23 See_Comment [Automat ed message] code = 370) The system [employer] generated this result transmitted ref erence range: <=5.90. The reference range was not used to int erpret this result as normal/abnormal . RECOMMENDED COUMADIN/WARFARIN INR THERAPY RANGESSTANDARD DOSE: 2.0 - 3.0 Includes: PROPHYLAXIS for venous thrombosis, systemic embolization; TREATMENT for venous thrombosis and/or pulmonary embolus.HIGH RISK: Target INR is 2.5-3.5 for patients with mechanical heart valves.HIGH SENSITIVITY TROPONIN [id number] 00:51:17 Test Item Value Reference Range Interpretation Comments HIGH SENSITIVITY 8303 pg/ml See_Comment [Automated message] TROPONIN I (test code The sy stem which = [id number]) generated this result transmitted ref erence range: <=17. Th e reference range was not used to int erpret this result as normal/abnormal . District Or District Office Director ID Juan FANG LThe ANAESTHESIOLOGIST STAT High Sensitivity Troponin-I results should be used in conjunction with other diagnostic information such as ECG, clinical observations and information, and patient symptoms to aid in the diagnosis of [facility].District Or District Office Director ID Juan FANG LCOMPREHENSIVE METABOLIC [id number] 00:45:53 Test Item Value Reference Range Interpretation [...] not appl icable for dialysis patien ts District Or District Office Director ID - PIKULDEEP [id number] 00:45:52 Test Item Value Reference Range Interpretation Comments MAGNESIUM (BEAKER) 1.9 mg/dL 1.6-2.6 Specimen slightly (test code = 627) hemolyzed District Or District Office Director ID - MICHAELMEAGHANUELOperator ID - LEONCIO LPOCT-GLUCOSE [id number] 00:33:58 Test Item Value Reference Range Interpretation Comments POC-GLUCOSE METER 102 mg/dL 70-110 : TESTED A T [facility] 6720 (BEAKER) (test code = [place], 1538) [address]: District Or District Office Director/Techni ethel ID = [id number] for Shahana Germain CBC W/PLT COUNT & AUTO [id number] 00:25:04 Test Item Value Reference Range Interpretation [...] (BEAKER) (test code = 2801) LACTIC ACID, [id number] 00:22:31 Test Item Value Reference Range Interpretation Comments LACTATE BLOOD VENOUS 1.06 mmol/L 0.50-2.20 Specime n slightly (2) (BEAKER) (test hemolyzed code = 3961) District Or District Office Director ID - CELESTEBLOOD GAS, [id number] 23:52:32 Test Item Value Reference Range Interpretation [...] (BEAKER) (test code = 1819) 28.0 POCT-GLUCOSE [id number] 12:15:00 Test Item Value Reference Range Interpretation Comments POC-GLUCOSE METER 122 mg/dL 70-110 H : TESTED A T [facility] 6720 (BEAKER) (test code = [place], 1538) [address]: District Or District Office Director/Techni ethel ID = [id number] for OR BALAJI BESS POCT-GLUCOSE [id number] 07:43:00 Test Item Value Reference Range Interpretation Comments POC-GLUCOSE METER 81 mg/dL 70-110 : [facility] (BEAKER) (test code = [place] [facility], 1538) [address]: District Or District Office Director/Techni ethel ID = [id number] for ORBALAJI VALDEZ COMPREHENSIVE METABOLIC [id number] 07:11:00 Test Item Value Reference Range Interpretation [...] S NOT APPLICABLE FOR DIALYSIS PATIEN TS. District Or District Office Director ID - KEVIN [id number] 07:11:00 Test Item Value Reference Range Interpretation Comments MAGNESIUM (BEAKER) (test code = 2.3 mg/dL 1.6-2.6 627) District Or District Office Director ID - KEVIN [id number] 07:11:00 Test Item Value Reference Range Interpretation Comments PHOSPHORUS (BEAKER) (test code = 3.8 mg/dL 2.3-4.7 604) District Or District Office Director ID - KEVIN MCALCIUM, [id number] 06:48:00 Test Item Value Reference Range Interpretation Comments CALCIUM IONIZED (BEAKER) (test 1.25 mmol/L 1.12-1.27 code = 698) PH, BLOOD (BEAKER) (test code = 7.29 1810) CBC W/PLT COUNT & AUTO [id number] 06:45:00 Test Item Value Reference Range Interpretation [...] PERCENT (BEAKER) (test code = 2801) POCT-GLUCOSE [id number] 21:16:00 Test Item Value Reference Range Interpretation Comments POC-GLUCOSE METER 103 mg/dL 70-110 : TESTED A T [facility] 6720 (BEAKER) (test code = [facility]) [address]: District Or District Office Director/Techni ethel ID = [id number] for PI TTS, GIL POCT-GLUCOSE [id number] 17:06:00 Test Item Value Reference Range Interpretation Comments POC-GLUCOSE METER 137 mg/dL 70-110 H : TESTED A T [facility] 6720 (BEAKER) (test code = [facility], 1538) [address]: District Or District Office Director/Techni ethel ID = [id number] for OR PHEY, BALAJI POCT-GLUCOSE [id number] 12:31:00 Test Item Value Reference Range Interpretation Comments POC-GLUCOSE METER 121 mg/dL 70-110 H : TESTED A T [facility] 6720 (BEAKER) (test code = [facility], 1538) [address]: District Or District Office Director/Techni ethel ID = [id number] for OR PHEY, BALAJI POCT-GLUCOSE [id number] 08:27:00 Test Item Value Reference Range Interpretation Comments POC-GLUCOSE METER 81 mg/dL 70-110 : TESTED A T [facility] 6720 (BEAKER) (test code = [facility], 1538) [address]: District Or District Office Director/Techni ethel ID = [id number] for ORPH BALAJI GARCIA COMPREHENSIVE METABOLIC [id number] 07:14:00 Test Item Value Reference Range Interpretation [...] S NOT APPLICABLE FOR DIALYSIS PATIEN TS. District Or District Office Director ID - PIAYA [id number] 07:14:00 Test Item Value Reference Range Interpretation Comments MAGNESIUM (BEAKER) (test code = 2.0 mg/dL 1.6-2.6 627) District Or District Office Director ID - PIAYA [id number] 07:14:00 Test Item Value Reference Range Interpretation Comments PHOSPHORUS (BEAKER) (test code = 3.1 mg/dL 2.3-4.7 604) District Or District Office Director ID - LEONCIO LCALCIUM, [id number] 06:30:00 Test Item Value Reference Range Interpretation Comments CALCIUM IONIZED (BEAKER) (test 1.22 mmol/L 1.12-1.27 code = 698) PH, BLOOD (BEAKER) (test code = 7.32 1810) CBC W/PLT COUNT & AUTO [id number] 06:18:00 Test Item Value Reference Range Interpretation [...] PERCENT (BEAKER) (test code = 2801) POCT-GLUCOSE [id number] 21:58:00 Test Item Value Reference Range Interpretation Comments POC-GLUCOSE METER 206 mg/dL 70-110 H : TESTED A T [facility] 6720 (BEAKER) (test code = [facility], 1538) [address]: District Or District Office Director/Techni ethel ID = [id number] for Re yes, Sairy POCT-GLUCOSE [id number] 17:15:00 Test Item Value Reference Range Interpretation Comments POC-GLUCOSE METER 114 mg/dL 70-110 H : TESTED A T [facility] 6720 (BEAKER) (test code = [facility], 1538) [address]: District Or District Office Director/Techni ethel ID = [id number] for BEATRIZ HN, ULISES POCT-GLUCOSE [id number] 12:21:00 Test Item Value Reference Range Interpretation Comments POC-GLUCOSE METER 135 mg/dL 70-110 H : TESTED A T [facility] 6720 (BEAKER) (test code = [facility], 1538) [address]: District Or District Office Director/Techni ethel ID = [id number] for BEATRIZ HN, ULISES POCT-GLUCOSE [id number] 07:54:00 Test Item Value Reference Range Interpretation Comments POC-GLUCOSE METER 124 mg/dL 70-110 H : TESTED A T [facility] 6720 (BEAKER) (test code = [facility], 1538) [address]: District Or District Office Director/Techni ethel ID = [id number] for BEATRIZ HN, ULISES RAD, CHEST, 1 VIEW, NON [id number] 07:15:00Reason for exam:->eval PNXShould this be performed at the bedside?->Yes [facility] 1950 Sex: FFINAL REPORT RAD, CHEST, 1 VIEW, NON DEPT INDICATION: eval PNX COMPARISON: Prior day's exam FINDINGS: Portable frontal view of the chest. IMPRESSION: Support Lines: Right thoracostomy tube has been removed. Lungs and pleura: No consolidation. Trace left effusion. No pneumothorax.Heart and mediastinum: Stable contours. Additional findings: None. Signed: JR Evans Robert MDReport Verified Date/Time: 12/17/2020 07:15:57 Reading Location: [facility] Radiology Reading Room CALCIUM, [id number] 06:45:00 Test Item Value Reference Range Interpretation Comments CALCIUM IONIZED (BEAKER) (test 1.23 mmol/L 1.12-1.27 code = 698) PH, BLOOD (BEAKER) (test code = 7.39 1810) COMPREHENSIVE METABOLIC [id number] 06:36:00 Test Item Value Reference Range Interpretation [...] S NOT APPLICABLE FOR DIALYSIS PATIEN TS. District Or District Office Director ID Juan GUIDO [id number] 06:36:00 Test Item Value Reference Range Interpretation Comments MAGNESIUM (BEAKER) (test code = 2.0 mg/dL 1.6-2.6 627) District Or District Office Director ID Juan GUIDO [id number] 06:36:00 Test Item Value Reference Range Interpretation Comments PHOSPHORUS (BEAKER) (test code = 2.6 mg/dL 2.3-4.7 604) District Or District Office Director ID Juan GUIDO WCBC W/PLT COUNT & AUTO [id number] 05:59:00 Test Item Value Reference Range Interpretation [...] PERCENT (BEAKER) (test code = 2801) POCT-GLUCOSE [id number] 21:05:00 Test Item Value Reference Range Interpretation Comments POC-GLUCOSE METER 134 mg/dL 70-110 H : TESTED A T [facility] 6720 (BEAKER) (test code = [place], 1538) [address]: District Or District Office Director/Techni ethel ID = [id number] for Co Chela patterson POCT-GLUCOSE [id number] 17:20:00 Test Item Value Reference Range Interpretation Comments POC-GLUCOSE METER 131 mg/dL 70-110 H : TESTED A T [facility] 6720 (JATINDER) (test code = [place], 1538) [address]: District Or District Office Director/Techni ethel ID = [id number] for ULISES SCHMITZ POCT-GLUCOSE [id number] 12:22:00 Test Item Value Reference Range Interpretation Comments POC-GLUCOSE METER 159 mg/dL 70-110 H : TESTED A T [facility] 6720 (JATINDER) (test code = [place], 1538) [address]: District Or District Office Director/Techni ethel ID = [id number] for ULISES SCHMITZ RAD, CHEST, 1 VIEW, NON [id number] 07:50:00Reason for exam:->eval PNXShould this be performed at the bedside?->Yes [facility] : 1950 Sex: FFINAL [...] Downing Verified Date/Time: 12/16/2020 07:50:48 Reading Location: [address] Reading Room POCT-GLUCOSE [id number] 07:42:00 Test Item Value Reference Range Interpretation Comments POC-GLUCOSE METER 124 mg/dL 70-110 H : TESTED A T [facility] 6720 (BEAKER) (test code = [place], 1538) [address]: District Or District Office Director/Techni ethel ID = [id number] for ULISES SCHMITZ COMPREHENSIVE METABOLIC [id number] 05:29:00 Test Item Value Reference Range Interpretation [...] S NOT APPLICABLE FOR DIALYSIS PATIEN TS. District Or District Office Director ID - LATA [id number] 05:29:00 Test Item Value Reference Range Interpretation Comments MAGNESIUM (BEAKER) (test code = 2.1 mg/dL 1.6-2.6 627) District Or District Office Director ID - LATA [id number] 05:29:00 Test Item Value Reference Range Interpretation Comments PHOSPHORUS (BEAKER) (test code = 3.1 mg/dL 2.3-4.7 604) District Or District Office Director ID Juan GUIDO WCBC (HEMOGRAM ONLY)2020-12-16 05:18:00 Test Item Value [...] = 413) RAD, CHEST, 1 VIEW, NON [id number] 03:15:00Reason for exam:- >pnuemothoraxShould this be performed at the bedside?->Yes [facility] 1950 Sex: FFINAL [...] cardiomediastinal contours are stable. Signed: Devante Mckenzie Verified Date/Time: 12/16/2020 03:15:49 POCT-GLUCOSE [id number] 21:17:00 Test Item Value Reference Range Interpretation Comments POC-GLUCOSE METER 82 mg/dL 70-110 : TESTED A T [facility] 6720 ([facility]) (test code = [facility], 153) [address]: District Or District Office Director/Techni ethel ID = [id number] for Reilly ez, [place] POCT-GLUCOSE [id number] 16:59:00 Test Item Value Reference Range Interpretation Comments POC-GLUCOSE METER 145 mg/dL 70-110 H : Notified RN/MD: ([facility]) (test code = TESTED AT [facility] 67 1538) [facility], [address]: District Or District Office Director/Techni ethel ID = [id number] for GO NZALEZ, [place]ANE POCT-GLUCOSE [id number] 13:21:00 Test Item Value Reference Range Interpretation Comments POC-GLUCOSE METER 116 mg/dL 70-110 H : TESTED A T [facility] 6720 ([facility]) (test code = [facility], 153) [address]: District Or District Office Director/Techni ethel ID = [id number] for Michaela Bhardwaj rd RAD, CHEST, 1 VIEW, NON [id number] 12:07:00Reason for exam:->PTXShould this be performed at the bedside?->Yes [facility] : 1950 Sex: FFINAL [...] Fernandez Verified Date/Time: 12/15/2020 12:07:16 Reading Location: [address] Ortho Consult Reading Room BLOOD GAS, [id number] 11:16:00 Test Item Value Reference Range Interpretation [...] (BEAKER) (test code = 1819) 28.0 POCT-GLUCOSE [id number] 08:19:00 Test Item Value Reference Range Interpretation Comments POC-GLUCOSE METER 116 mg/dL 70-110 H : TESTED A T [facility] 6720 (BEAKER) (test code [facility], = 1538) [address]: District Or District Office Director/Techni ethel ID = [id number] for Feng delgado (contract), Syt francisco javier COMPREHENSIVE METABOLIC [id number] 05:46:00 Test Item Value Reference Range Interpretation [...] S NOT APPLICABLE FOR DIALYSIS PATIEN TS. District Or District Office Director ID - [id number] 05:46:00 Test Item Value Reference Range Interpretation Comments MAGNESIUM (BEAKER) (test code = 1.9 mg/dL 1.6-2.6 627) District Or District Office Director ID - [id number] 05:46:00 Test Item Value Reference Range Interpretation Comments PHOSPHORUS (BEAKER) (test code = 3.0 mg/dL 2.3-4.7 604) District Or District Office Director ID - ELIORAD, CHEST, 1 VIEW, NON [id number] 05:32:00Reason for exam:->eval PNXShould this be performed at the bedside?->Yes [facility] 1950 Sex: FFINAL REPORT RAD, CHEST, 1 VIEW, NON DEPT INDICATION: eval PNX COMPARISON: Exam fromfive hours prior FINDINGS: Portable frontal view of the chest. IMPRESSION: Support Lines: Stable right chest tube. Lungs and pleura: Unchanged blunting of both costophrenic angles. No airspace consolidation. No discernible pneumothorax.Heart and mediastinum: Stable contours.Additional findings: None. Signed: Navdeep Jamison MDReport Verified Date/Time: 12/15/2020 05:32:54 IUM, [id number] 05:14:00 Test Item Value Reference Range Interpretation [...] (BEAKER) (test code = 413) BLOOD GAS, [id number] 01:14:00 Test Item Value Reference Range Interpretation [...] (test 37.0 code = 1818) RESPIRATORY PANEL [id number] 00:01:00 Test Item Value Reference Range Interpretation [...] This sample was tested at the [facility] Molecular Diagnostics Laboratory using the [employer] Respiratory Panel. It is FDA cleared and has been verified and approved by the [facility] Molecular Diagnostics Laboratory for clinical use on nasopharyngeal swab specimens.The performance of the FilmArrayRP has not been established in individuals who received influenza vaccine. Recent administration of a nasal influenza vaccine may cause false positive results for Influenza A and/orInfluenza B.SARS-COV2/RT-PCR ([facility])2020-12-14 23:51:00 Test Item Value Reference Range Interpretation Comments SARS-COV2/RT-PCR Negative Negative The SARS-Co V-2 target (test code = 8174366) nuclei c acids are not detected in [...] Xpress SARS-CoV-2/Flu/RSV by their healthcareprovider. Results from [facility] Xpert Xpress SARS-CoV-2/Flu/RSV test should [...] of the Act.Fact Sheet for Healthcare Providers:https ://www.Medical [employer]/Documents/Xpert%20Xpress%20SARS%20CoV-2/Fact%20Sheets/302-390 2%08YEMS-HEO-2%20HEALTHCARE%20PROVIDERS%20FACT%20SHEET.pdfFact Sheet for Healthcare Patients:https://www.Medical Envelope/Docum ents/Xpert%20Xpress%20SARS%20Cov-2/Fact%20Sheets/302-3801%68FLSS-JOI-5%20PATIENT %20FACT%20SHEET.pdfTSH/FREE T4 IF [id number] 22:33:00 Test Item Value Reference Range Interpretation Comments THYROID STIMULATING HORMONE 2.265 uIU/mL 0.350-4.940 (BEAKER) (test code = 772) District Or District Office Director ID - [id number] 22:20:00 Test Item Value Reference Range Interpretation Comments PROCALCITONIN (BEAKER) (test code 0.23 ng/mL <0.05 H = 3036) SEPSIS RISK (ng/mL)Low: 0.05-0.50Intermediate: 0.51-2.00High: >=2.01 [id number] 22:12:00 Test Item Value Reference Range Interpretation Comments MAGNESIUM (BEAKER) 2.0 mg/dL 1.6-2.6 Specimen slightly (test code = 627) hemolyzed District Or District Office Director ID - [id number] 22:12:00 Test Item Value Reference Range Interpretation Comments PHOSPHORUS (BEAKER) 4.5 mg/dL 2.3-4.7 Specimen slightly (test code = 604) hemolyzed District Or District Office Director ID - ADMINCOMPREHENSIVE METABOLIC [id number] 22:12:00 Test Item Value Reference Range Interpretation [...] S NOT APPLICABLE FOR DIALYSIS PATIEN TS. District Or District Office Director ID - ADMINC-REACTIVE [id number] 22:12:00 Test Item Value Reference Range Interpretation Comments C-REACTIVE PROTEIN (BEAKER) (test 0.86 mg/dL 0.00-0.50 H code = 676) District Or District Office Director ID - ADMINLACTIC ACID, [id number] 22:07:00 Test Item Value Reference Range Interpretation Comments LACTATE BLOOD VENOUS (2) (BEAKER) 1.86 mmol/L 0.50-2.20 (test code = 2872) District Or District Office Director ID - ADMINPOCT-GLUCOSE [id number] 21:53:00 Test Item Value Reference Range Interpretation Comments POC-GLUCOSE METER 89 mg/dL 70-110 : TESTED A T [facility] 6720 (BEAKER) (test code = CAMILA KHAN NE, 1538) [address]: District Or District Office Director/Techni ethel ID = [id number] for Elsi Diaz CBC (HEMOGRAM ONLY)2020-12-14 21:53:00 [...] (BEAKER) (test code = 413) BLOOD GAS, [id number] 21:49:00 Test Item Value Reference Range Interpretation [...] (BEAKER) (test code = 1819) 40.0 CALCIUM, [id number] 21:48:00 Test Item Value Reference Range Interpretation Comments CALCIUM IONIZED (BEAKER) (test 1.18 mmol/L 1.12-1.27 code = 698) PH, BLOOD (BEAKER) (test code = 7.22 1810) RAD, CHEST, 1 VIEW, NON [id number] 20:50:00Reason for exam:->chest tube placementShould this be performed at the bedside?->Yes [facility] : 1950 Sex: [...] post right chest tube placement. Signed: [facility] Verified Date/Time: 12/14/2020 20:50:14 Reading Location: [address] Consult Reading Room [id number] 14:04:21 Test Item Value Reference Range Interpretation Comments ALBUMIN (test code = 3800131454) 3.2 g/dL 3.5-5.0 L Lab Interpretation (test code = Abnormal 22411-6) [facility] METABOLIC PANEL (NA, K, CL, CO2, GLUCOSE, BUN, CREATININE, CA)2020-12-04 10:57:25 Test Item Value Reference Range Interpretation Comments NA (test code = 137 mmol/L 135-145 5240323061) K (test code = 3.9 mmol/L 3.5-5.0 4888790538) CL (test code = 95 mmol/L 98-108 L 8984981907) CO2 TOTAL (test code = 36 mmol/L 23-31 H 6153554593) AGAP (test code = 2-16 9188900251) BUN (test code = 15 mg/dL 7-23 4005003426) GLUCOSE (test code = 92 mg/dL 70-110 6918008965) CREATININE (test code = 0.53 mg/dL 0.50-1.04 4029025312) CALCIUM (test code = 8.9 mg/dL 8.6-10.6 0266389466) eGFR (test code = mL/min/1.73m2 6894879274) CHRISTINE (test code = CHRISTINE) Association of [...] tests). Lab Interpretation Abnormal (test code = 59649-9) [facility] 10:46:24 Test Item Value Reference Range Interpretation Comments MAGNESIUM (test code = 1512760023) 2.0 mg/dL 1.7-2.4 Lab Interpretation (test code = Normal 56501-0) [facility] Tyler[facility] WITH [id number] 10:19:38 Test Item Value Reference Range Interpretation [...] (test code = 52.2 fL 39.0-49.9 H 56607-5) RDW-CV (test code = 15.9 % 12.0-15.5 H 788-0) PLT (test code = See_Comment [Automated 777-3) message] The sy stem which generated this result transmitted reference range : 166 - 358 10*3/ ?L. The reference r crispin was not used to interpret this result as normal/abnormal . MPV (test code = 9.6 fL 9.5-12.9 05490-9) NRBC/100 WBC (test See_Comment [Automat ed code = 2305663560) message] The system which generated this result transmitted reference range : 0.0 - 10.0 /100 WBCs. The refer ence range was not u sed to interpret th is result as normal/abnormal . NRBC x10^3 (test code <0.01 See_Comment [Auto mated = 7512333344) message] The s ystem which generated this result transmitted reference range : 10*3/?L. The reference range was not used to interpret this result as normal/abnormal . GRAN MAT (NEUT) % 56.8 % (test code = 770-8) IMM GRAN % (test code 0.30 % = 1114560525) LYMPH % (test code = 18.2 % 736-9) MONO % (test code = 17.8 % 5905-5) EOS % (test code = 6.2 % 713-8) BASO % (test code = 0.7 % 706-2) GRAN MAT x10^3(ANC) 3.41 10*3/uL 1.88-7.09 (test code = 1621262800) IMM GRAN x10^3 (test <0.03 0.00-0.06 code = 4184552687) LYMPH x10^3 (test code 1.09 10*3/uL 1.32-3.29 L = 731-0) MONO x10^3 (test code 1.07 10*3/uL 0.33-0.92 H = 742-7) EOS x10^3 (test code = 0.37 10*3/uL 0.03-0.39 711-2) BASO x10^3 (test code 0.04 10*3/uL 0.01-0.07 = 704-7) Lab Interpretation Abnormal (test code = 19624-2) [facility] METABOLIC PANEL (NA, K, CL, CO2, GLUCOSE, BUN, CREATININE, CA)2020-12-03 11:48:25 Test Item Value Reference Range Interpretation Comments NA (test code = 137 mmol/L 135-145 9138949882) K (test code = 3.6 mmol/L 3.5-5.0 Slight 8135470536) hemolysis CL (test code = 93 mmol/L 98-108 L 3155786256) CO2 TOTAL (test code 38 mmol/L 23-31 H = 7389922444) AGAP (test code = 2-16 5256485856) BUN (test code = 14 mg/dL 7-23 Slight 6173346448) hemolysis GLUCOSE (test code = 94 mg/dL 70-110 2575224436) CREATININE (test code 0.44 mg/dL 0.50-1.04 L = 0125227454) CALCIUM (test code = 9.2 mg/dL 8.6-10.6 0628421080) eGFR (test code = mL/min/1.73m2 4245866317) CHRISTINE (test code = CHRISTINE) Association of [...] tests). Lab Interpretation Abnormal (test code = 48692-7) [facility]25 Test Item Value Reference Range Interpretation Comments MAGNESIUM (test code = 0155136609) 2.0 mg/dL 1.7-2.4 Lab Interpretation (test code = Normal 23229-9) [facility] WITH [id number] 11:28:06 Test Item Value Reference Range Interpretation [...] (test code = 53.5 fL 39.0-49.9 H 16951-4) RDW-CV (test code = 15.8 % 12.0-15.5 H 788-0) PLT (test code = See_Comment [Automated 777-3) message] The sy stem which generated this result transmitted reference range : 166 - 358 10*3/ ?L. The reference r crispin was not used to interpret this result as normal/abnormal . MPV (test code = 9.8 fL 9.5-12.9 57590-4) NRBC/100 WBC (test See_Comment [Automat ed code = 8683311749) message] The system which generated this result transmitted reference range : 0.0 - 10.0 /100 WBCs. The refer ence range was not u sed to interpret th is result as normal/abnormal . NRBC x10^3 (test code <0.01 See_Comment [Auto mated = 1424640324) message] The s ystem which generated this result transmitted reference range : 10*3/?L. The reference range was not used to interpret this result as normal/abnormal . GRAN MAT (NEUT) % 59.3 % (test code = 770-8) IMM GRAN % (test code 0.30 % = 8921138871) LYMPH % (test code = 21.7 % 736-9) MONO % (test code = 14.6 % 5905-5) EOS % (test code = 3.6 % 713-8) BASO % (test code = 0.5 % 706-2) GRAN MAT x10^3(ANC) 4.45 10*3/uL 1.88-7.09 (test code = 4707338746) IMM GRAN x10^3 (test <0.03 0.00-0.06 code = 4801123434) LYMPH x10^3 (test code 1.63 10*3/uL 1.32-3.29 = 731-0) MONO x10^3 (test code 1.10 10*3/uL 0.33-0.92 H = 742-7) EOS x10^3 (test code = 0.27 10*3/uL 0.03-0.39 711-2) BASO x10^3 (test code 0.04 10*3/uL 0.01-0.07 = 704-7) Lab Interpretation Abnormal (test code = 09233-6) [facility] [id number] 17:01:30 Test Item Value Reference Range Interpretation Comments Blood Culture-Aerobic No organisms No growth Previo us (test code = 36509-3) isolated prelim inary verified result was Culture [...] Culture-Anaerobic isolated preliminar y (test code = 42101-4) verifi ed result was Culture In Progress [...] CDT Lab Interpretation Normal (test code = 30687-5) [facility] [id number] 16:01:30 Test Item Value Reference Range Interpretation Comments Blood Culture-Aerobic No organisms No growth Previo us (test code = 99155-6) isolated prelim inary verified result was Culture [...] Culture-Anaerobic isolated preliminar y (test code = 76279-3) verifi ed result was Culture In Progress [...] CDT Lab Interpretation Normal (test code = 53918-2) [facility] TylerSPUTUM [id number] 16:12:34 Test Item Value Reference Range Interpretation Comments SPUTUM CULTURE 1+ Respiratory daniel: (test code = 622-1) Commensal upper respiratory microorganisms only. Gram stain (test Occasional (Rare) code = 664-3) Epithelial cells CHRISTINE (test code = Bacterial pathogens CHRISTINE) associated with lower respiratory infections were not identified, which include Pseudomonas aeruginosa and Staphylococcus aureus (MRSA or MSSA). [facility] (NA, K, CL, CO2, GLUCOSE, BUN, CREATININE, CA)2020-12-01 10:12:53 Test Item Value Reference Range Interpretation Comments NA (test code = 137 mmol/L 135-145 8831926664) K (test code = 3.6 mmol/L 3.5-5.0 5067315792) CL (test code = 94 mmol/L 98-108 L 0012950213) CO2 TOTAL (test code = 35 mmol/L 23-31 H 3558054230) AGAP (test code = 2-16 7043237815) BUN (test code = 17 mg/dL 7-23 9096714399) GLUCOSE (test code = 88 mg/dL 70-110 9752052575) CREATININE (test code = 0.38 mg/dL 0.50-1.04 L 9070696145) CALCIUM (test code = 8.6 mg/dL 8.6-10.6 1100650093) eGFR (test code = mL/min/1.73m2 7028263887) CHRISTINE (test code = CHRISTINE) Association of [...] tests). Lab Interpretation Abnormal (test code = 80881-1) [facility]2021-06-26 10:02:28 Test Item Value Reference Range Interpretation Comments MAGNESIUM (test code = 7471054310) 2.0 mg/dL 1.7-2.4 Lab Interpretation (test code = Normal 34051-2) [facility] TylerPHOSPHORUS2021-06-26 10:02:28 Test Item Value Reference Range Interpretation Comments PHOSPHORUS (test code = 5266708823) 3.5 mg/dL 2.5-5.0 Lab Interpretation (test code = Normal 07569-1) [facility] WITH [id number] 09:52:48 Test Item Value Reference Range Interpretation Comments WBC (test code = See_Comment [Automated 7390-2) message] The sy stem which generated this result transmitted reference range : 4.30 - 11.10 10*3/?L. The reference range was not used to interpret this result as normal/abnormal . RBC (test code = See_Comment [Automated 679-8) message] The sy stem which generated this [...] (test code = 54.5 fL 39.0-49.9 H 12675-7) RDW-CV (test code = 15.9 % 12.0-15.5 H 788-0) PLT (test code = See_Comment [Automated 777-3) message] The sy stem which generated this result transmitted reference range : 166 - 358 10*3/ ?L. The reference r crispin was not used to interpret this result as normal/abnormal . MPV (test code = 9.5 fL 9.5-12.9 05267-6) NRBC/100 WBC (test See_Comment [Automat ed code = 8339675938) message] The system which generated this result transmitted reference range : 0.0 - 10.0 /100 WBCs. The refer ence range was not u sed to interpret th is result as normal/abnormal . NRBC x10^3 (test code <0.01 See_Comment [Auto mated = 5462307631) message] The s ystem which generated this result transmitted reference range : 10*3/?L. The reference range was not used to interpret this result as normal/abnormal . GRAN MAT (NEUT) % 64.3 % (test code = 770-8) IMM GRAN % (test code 0.30 % = 3102095169) LYMPH % (test code = 17.9 % 736-9) MONO % (test code = 13.5 % 5905-5) EOS % (test code = 3.7 % 713-8) BASO % (test code = 0.3 % 706-2) GRAN MAT x10^3(ANC) 3.85 10*3/uL 1.88-7.09 (test code = 8200469860) IMM GRAN x10^3 (test <0.03 0.00-0.06 code = 7402073747) LYMPH x10^3 (test code 1.07 10*3/uL 1.32-3.29 L = 731-0) MONO x10^3 (test code 0.81 10*3/uL 0.33-0.92 = 742-7) EOS x10^3 (test code = 0.22 10*3/uL 0.03-0.39 711-2) BASO x10^3 (test code <0.03 0.01-0.07 = 704-7) Lab Interpretation Abnormal (test code = 75358-7) [facility] COVID [id number] 02:47:45COVID DMT InterpretationInterpretation/Recommendations: Molecular NAAT Tests for [...] COVID-19 testing the patient has had at [facility], including molecular NAAT testing (more commonly known as PCR testing and Rapid ID Now testing) and antibody testing. It does not take into account any testingthat a patient has had outside of the [facility] medical record. [facility] LABORATORY SERVICESCOVID AhokipjZOBB-LaL-4 Rapid ID NOW (no units) ? ? Date ? Value ? 11/27/2020 ? Not Detected ? ? ? 11/10/2020 ? Not Detected ? [facility]AT[facility] SERVICESUnTexas [facility] PANEL 21 + LACTIC [id number] 20:13:40 Test Item Value Reference Range Interpretation Comments PH (test code = 7.32-7.42 8071078448) PCO2 AALIYAH (test code = See_Comment H [Auto mated 0778305024) message] The sy stem which generated this result transmitted reference range : 41 - 51 mmHg. The reference range was not used to interpret this result as normal/abnormal . PO2 AALIYAH (test code = See_Comment HH [Autom ated 2720544601) message] The sy stem which generated this result transmitted reference range : 25 - 40 mmHg. The reference range was not used to interpret this result as normal/abnormal . HCO3 AALIYAH (test code = See_Comment H [Auto mated 4410566162) message] The sy stem which generated this result transmitted reference range : 24 - 28 mEq/L. The reference range was not used to interpret this result as normal/abnormal . AC VBE(BEAKER) (test mEq/L code = 4586994465) THB AALIYAH (test code = 12.8 g/dL 12.0-16.0 6166127926) %O2HB AALIYAH (test code = 95.5 % 52.0-63.0 H 3379594869) %COHB AALIYAH (test code = 0.4 % 0.0-1.5 7201604274) %METHB AALIYAH (test code = 0.1 % 0.4-1.5 L 9805612271) VOL%O2 AALIYAH (test code = 17.2 % 6.0-12.0 H 3615725739) NA (test code = 139 mmol/L 135-145 6486096405) K+ (test code = 3.9 mmol/L 3.5-5.0 3522695563) AC CA IONZ (test code = 4.50 mg/dL 4.50-5.30 9794810574) GLUCOSE (test code = 167 mg/dL 70-110 H 4622200824) LACTIC ACID (test code 2.64 mmol/L 0.50-2.20 H = 7625671144) Lab Interpretation Abnormal (test code = 78773-9) [facility] TylerMRSA / MSSA Screen by Stacey [id number] 16:25:22 Test Item Value Reference Range Interpretation Comments MSSA Screen by Stacey QUISPE (test code Negative Negative = 51989-6) MRSA/MSSA Positive? (test code = No No 7504667945) Lab Interpretation (test code = Normal 20319-9) [facility] TylerLEGIONELLA URINARY ANTIGEN [id number] 10:44:38 Test Item Value Reference Range Interpretation Comments Legionella Urinary Negative Negative Antigen (test code = 6771044778) CHRISTINE (test code = CHRISTINE) Negative for [...] test. Lab Interpretation (test Normal code = 79641-2) [facility] TylerPNEUMOCOCCAL [id number] 10:44:22 Test Item Value Reference Range Interpretation Comments S. pneumoniae antigen (test code = Negative Negative 8271819565) Lab Interpretation (test code = Normal 83611-7) [facility] TylerURINALYSIS2021-06-23 10:42:10 Test Item Value Reference Range Interpretation Comments APPEARANCE (test code = Hazy Clear A 0039283857) COLOR (test code = Mary Ann Yellow A 3297397237) PH (test code = 4.8-8.0 2763764568) SP GRAVITY (test code = 1.003-1.030 H 8419915661) GLU U QUAL (test code = Normal Normal 8806399833) BLOOD (test code = Negative Negative Interfere nce from 3762534655) ascorbic acid m ay cause false neg ative results. KETONES (test code = 5 mg/dL Negative A 4493396387) PROTEIN (test code = Negative Negative 2887-8) UROBILIN (test code = Normal Normal 3635908020) BILIRUBIN (test code = Negative Negative 1706366069) NITRITE (test code = Negative Negative 9118552842) LEUK FAITH (test code = Negative Negative 2769761242) RBC/HPF (test code = See_Comment H [Autom ated message] 1597398276) The system [employer] generated this result transmitted ref erence range: 0 - 3 HP F. The reference range was not used to int erpret this result as normal/abnormal . WBC/HPF (test code = See_Comment [Autom ated message] 1438996832) The system [employer] generated this result transmitted ref erence range: 0 - 5 HP F. The reference range was not used to int erpret this result as normal/abnormal . BACTERIA (test code = Few Negative A 4992158236) MUCOUS (test code = Slight Negative LPF A 8849548223) AMORPHOUS (test code = Rare Rare HPF 2919519858) ASCORBIC ACID (test code 40 mg/dL = 2910839777) Lab Interpretation (test Abnormal code = 82040-6) [facility] TylerXR RIBS 4+ VW [id number] 10:25:19 Left-sided rib fractures with left pleural effusion and left lower lobeatelectasis versus infiltrate. Questionable inferior lateral right rib fractures, suboptimally profiled. Severe osteopenia. Thoracic and lumbar spine vertebral body compression fractures, chronicityuncertain. Severe osteopenia, suspect osteoporosis. EXAM: XR RIBS 4+ VW BILATERAL HISTORY: Rule out possible rib fracture. Patient reports recent trauma to [facility] by slamming into truck door. COMPARISON: None [...] along the inferior and lateral right ribs. [facility], Radiant Results Inft User - 11/28/2020 5:26 AM CDT EXAM:XR RIBS 4+ VW BILATERALHISTORY:Rule out possible rib fracture. Patient reports recent trauma to [facility] by slamming into truck door. COMPARISON:NoneFINDINGS: Imaging [...] body compression fractures, chronicityuncertain.Severe osteopenia, suspect osteoporosis. [facility] Metabolic Panel (NA, K, CL, CO2, Glucose, BUN, Creatinine, CA)2020-11-28 10:13:28 Test Item Value Reference Range Interpretation Comments NA (test code = 141 mmol/L 135-145 3233125885) K (test code = 4.3 mmol/L 3.5-5.0 8786780670) CL (test code = 99 mmol/L 98-108 2772055838) CO2 TOTAL (test code = 36 mmol/L 23-31 H 9617826725) AGAP (test code = 2-16 1057008682) BUN (test code = 35 mg/dL 7-23 H 8722501006) GLUCOSE (test code = 93 mg/dL 70-110 5568117770) CREATININE (test code = 0.38 mg/dL 0.50-1.04 L 8058804222) CALCIUM (test code = 8.3 mg/dL 8.6-10.6 L 0860332055) eGFR (test code = mL/min/1.73m2 6060849311) CHRISTINE (test code = CHRISTINE) Association of [...] tests). Lab Interpretation Abnormal (test code = 01394-5) [facility] TylerMagnesium [id number] 10:03:09 Test Item Value Reference Range Interpretation Comments MAGNESIUM (test code = 8815172989) 2.4 mg/dL 1.7-2.4 Lab Interpretation (test code = Normal 39787-3) [facility] TylerHepatic Function Panel (ALB, T.PRO, BILI T, BU/BC, ALT, AST, ALK, PHOS)2020-11-28 10:03:09 Test Item Value Reference Range Interpretation Comments TOTAL BILI (test code = 6361334724) 0.3 mg/dL 0.1-1.1 BILI UNCON (test code = 5366522006) 0.0 mg/dL 0.1-1.1 L BILI CONJ (test code = 2699919771) 0.0 mg/dL 0.0-0.3 T PROTEIN (test code = 8157664430) 5.7 g/dL 6.3-8.2 L ALBUMIN (test code = 7808169466) 2.7 g/dL 3.5-5.0 L ALK PHOS (test code = 7991866975) 119 U/L 34-122 ALTv (test code = 1742-6) 8 U/L 5-35 AST(SGOT) (test code = 9546869973) 21 U/L 13-40 Lab Interpretation (test code = Abnormal 85936-2) [facility] TylerAC PANEL 21 + LACTIC [id number] 09:39:06 Test Item Value Reference Range Interpretation Comments PH (test code = 7.32-7.42 2795919384) PCO2 AALIYAH (test code = See_Comment H [Auto mated 7778959742) message] The sy stem which generated this result transmitted reference range : 41 - 51 mmHg. The reference range was not used to interpret this result as normal/abnormal . PO2 AALIYAH (test code = See_Comment H [Autom ated 7024924360) message] The sy stem which generated this result transmitted reference range : 25 - 40 mmHg. The reference range was not used to interpret this result as normal/abnormal . HCO3 AALIYAH (test code = See_Comment H [Auto mated 0660103965) message] The sy stem which generated this result transmitted reference range : 24 - 28 mEq/L. The reference range was not used to interpret this result as normal/abnormal . AC VBE(BEAKER) (test mEq/L code = 9708264947) THB AALIYAH (test code = 12.6 g/dL 12.0-16.0 9603844098) %O2HB AALIYAH (test code = 88.7 % 52.0-63.0 H 4651388384) %COHB AALIYAH (test code = 0.8 % 0.0-1.5 0699447445) %METHB AALIYAH (test code = 0.1 % 0.4-1.5 L 7335696990) VOL%O2 AALIYAH (test code = 15.7 % 6.0-12.0 H 2606111126) NA (test code = 142 mmol/L 135-145 0360046885) K+ (test code = 4.3 mmol/L 3.5-5.0 3866702116) AC CA IONZ (test code = 4.80 mg/dL 4.50-5.30 6627412913) GLUCOSE (test code = 92 mg/dL 70-110 8356616025) LACTIC ACID (test code 1.16 mmol/L 0.50-2.20 = 1002536285) Lab Interpretation Abnormal (test code = 55035-4) [facility] with Avzerhrzjamr6169-93-51 09:36:44 Test Item Value Reference Range Interpretation [...] (test code = 55.5 fL 39.0-49.9 H 56200-6) RDW-CV (test code = 15.8 % 12.0-15.5 H 788-0) PLT (test code = See_Comment [Automated 777-3) message] The sy stem which generated this result transmitted reference range : 166 - 358 10*3/ ?L. The reference r crispin was not used to interpret this result as normal/abnormal . MPV (test code = 9.5 fL 9.5-12.9 07010-2) NRBC/100 WBC (test See_Comment [Automat ed code = 6847242162) message] The system which generated this result transmitted reference range : 0.0 - 10.0 /100 WBCs. The refer ence range was not u sed to interpret th is result as normal/abnormal . NRBC x10^3 (test code <0.01 See_Comment [Auto mated = 5089552175) message] The s ystem which generated this result transmitted reference range : 10*3/?L. The reference range was not used to interpret this result as normal/abnormal . GRAN MAT (NEUT) % 75.1 % (test code = 770-8) IMM GRAN % (test code 0.20 % = 7790019694) LYMPH % (test code = 13.1 % 736-9) MONO % (test code = 11.4 % 5905-5) EOS % (test code = 0.0 % 713-8) BASO % (test code = 0.2 % 706-2) GRAN MAT x10^3(ANC) 3.09 10*3/uL 1.88-7.09 (test code = 9177300561) IMM GRAN x10^3 (test <0.03 0.00-0.06 code = 4970647511) LYMPH x10^3 (test code 0.54 10*3/uL 1.32-3.29 L = 731-0) MONO x10^3 (test code 0.47 10*3/uL 0.33-0.92 = 742-7) EOS x10^3 (test code = <0.03 0.03-0.39 L 711-2) BASO x10^3 (test code <0.03 0.01-0.07 = 704-7) Lab Interpretation Abnormal (test code = 10409-8) [facility] PAN[facility] 20 + LACTIC [id number] 03:48:20 Test Item Value Reference Range Interpretation Comments PH (test code = 2) 7.35-7.45 L PCO2 (test code = See_Comment H [Automate d 5172050678) message] The sy stem which generated this result transmitted reference range : 35 - 45 mmHg. The reference range was not used to interpret this result as normal/abnormal . PO2 (test code = See_Comment L [Automated 2012459324) message] The sy stem which generated this result transmitted reference range : 80 - 100 mmHg. The reference range was not used to interpret this result as normal/abnormal . HCO3 (test code = See_Comment H [Automate d 5409588707) message] The sy stem which generated this result transmitted reference range : 22 - 26 mEq/L. The reference range was not used to interpret this result as normal/abnormal . BE (test code = See_Comment H [Automated 5373489014) message] The sy stem which generated this result transmitted reference range : -3.0 - 3.0 mEq/ L. The reference r crispin was not used to interpret this result as normal/abnormal . THB (test code = 13.6 g/dL 12.0-16.0 5535735981) %O2HB (test code = 94.4 % 94.0-99.0 1638465735) %COHB ART (test code = 1.2 % 0.0-1.5 7479111488) %METHB ART (test code = 0.0 % 0.4-1.5 L [id number]) VOL%O2 ART (test code = 18.1 % 15.0-23.0 [id number]) NA (test code = 143 mmol/L 135-145 [id number]) K+ (test code = 4.3 mmol/L 3.5-5.0 [id number]) AC CA IONZ (test code = 4.80 mg/dL 4.50-5.30 [id number]) GLUCOSE (test code = 120 mg/dL 70-110 H [id number]) LACTIC ACID (test code 0.99 mmol/L 0.50-2.20 = [id number]) Lab Interpretation Abnormal (test code = 69611-6) [facility] [id number] 01:07:34 Test Item Value Reference Range Interpretation Comments PH (test code = 7.32-7.42 L 0561862468) PCO2 AALIYAH (test code = See_Comment H [Auto mated message] 8415867834) The system [employer] generated this result transmitted ref erence range: 41 - 51 mmHg. The reference r crispin was not used to interpret this result as normal/abnor mal. PO2 AALIYAH (test code = See_Comment H [Autom ated message] 0965717131) The system [employer] generated this result transmitted ref erence range: 25 - 40 mmHg. The reference r crispin was not used to interpret this result as normal/abnor mal. HCO3 AALIYAH (test code = See_Comment H [Auto mated message] 9510907917) The system [employer] generated this result transmitted ref erence range: 24 - 28 mEq/L. The reference r crispin was not used to interpret this result as normal/abnor mal. AC VBE(BEAKER) (test mEq/L code = 4346059767) Lab Interpretation (test Abnormal code = 78051-4) [facility]2021[facility]23 00:57:28 Test Item Value Reference Interpretation Comments Range Procalcitonin (test <0.02 See_Comment [Automa cristhian code = 5725751698) message] The system which generated this result [...] lung abscess/empyema. For further information please refer to:[email or web address] Lab Interpretation Normal (test code = 03963-1) [id number] 23:45:01 Test Item Value Reference Range Interpretation Comments TROPONIN I (test 0.029 ng/mL See_Comment Hemolyzed code = 1501202793) specimen [Automated message] The system which generated [...] ? Lab Interpretation Normal (test code = 20562-1) [facility] acute hospital-Terminal [id number] 23:12:52 Test Item Value Reference Range Interpretation Comments NT-proBNP (test code 1880 pg/mL See_Comment H [Autom ated = 8578861942) message] The system which generated this result transmitted reference range : <=125. The reference range was not used to interpret this result as normal/abnormal . CHRISTINE (test code = CHRISTINE) Biotin has been reported to cause a negative bias, interpret results relative to patient's use of biotin. Lab Interpretation Abnormal (test code = 36670-4) [facility] Arterial Blood Gas.2020-11-27 23:07:45 Test Item Value Reference Range Interpretation Comments PH (test code = 2) 7.35-7.45 L PCO2 (test code = See_Comment H [Automate d message] 6893855718) The system [employer] generated this result transmitted ref erence range: 35 - 45 mmHg. The reference r crispin was not used to interpret this result as normal/abnor mal. PO2 (test code = See_Comment H [Automated message] 5390717422) The system [employer] generated this result transmitted ref erence range: 80 - 100 mmHg. The reference r crispin was not used to interpret this result as normal/abnor mal. HCO3 (test code = See_Comment H [Automate d message] 7223574821) The system [employer] generated this result transmitted ref erence range: 22 - 26 mEq/L. The reference r crispin was not used to interpret this result as normal/abnor mal. BE (test code = See_Comment H [Automated message] 0194529614) The system [employer] generated this result transmitted ref erence range: -3.0 - 3 .0 mEq/L. The refe rence range was not u sed to interpret this result as normal/abnor mal. Lab Interpretation (test Abnormal code = 67823-4) [facility]AM[facility] [id number] 23:03:29 Test Item Value Reference Range Interpretation Comments GGT (test code = 7141361900) 16 U/L 13-40 Lab Interpretation (test code = Normal 44192-2) [facility]OP[facility] [id number] 16:26:41 Test Item Value Reference Range Interpretation Comments TROPONIN I (test 0.033 ng/mL See_Comment [Automated code = 6939445119) message] The system which generated this result [...] ? Lab Interpretation Normal (test code = 02944-9) [facility] 1 [id number] 16:26:25HISTORY: SOB. TECHNIQUE: Portable AP erect view of the chest is obtained. Comparison ismade with 11/10/2020 study. FINDINGS congestion noted in the left lower lung, suspicious for developinginfiltrate. Rest of the lungs are clear but showed obstructive lungdisease. Mild cardiomegaly noted. No pneumothorax or pleural effusion. CONCLUSIONS: COPD and suspicious findings of developing pneumonia inretrocardiac left lower lung.[facility], Radiant Results Inft User - 11/27/2020 11:27 AM CDT HISTORY: SOB.TECHNIQUE: Portable AP erect view of the chest is ob tained. Comparison ismade with 11/10/2020 study.FINDINGS congestion noted in the left lower lung, suspicious for developinginfiltrate. Rest of the lungs are clear but showed obstructive lungdisease. Mildcardiomegaly noted. No pneumothorax or pleural effusion.CONCLUSIONS: COPD and suspicious findings of developing pneumonia inretrocardiac left lower lung.[facility]. METABOLIC PANEL (68457)2020-11-27 16:21:42 Test Item Value Reference Range Interpretation Comments NA (test code = 141 mmol/L 135-145 6950417546) K (test code = 3.7 mmol/L 3.5-5.0 1525345653) CL (test code = 97 mmol/L 98-108 L 6655838385) CO2 TOTAL (test code = 38 mmol/L 23-31 H 9608335332) AGAP (test code = 2-16 0620403129) BUN (test code = 36 mg/dL 7-23 H 9465071522) GLUCOSE (test code = 128 mg/dL 70-110 H 9923027547) CREATININE (test code = 0.58 mg/dL 0.50-1.04 0890026146) TOTAL BILI (test code = 0.3 mg/dL 0.1-1.2 2291331242) CALCIUM (test code = 9.5 mg/dL 8.6-10.6 8103246725) T PROTEIN (test code = 7.0 g/dL 6.3-8.2 8463047418) ALBUMIN (test code = 3.4 g/dL 3.5-5.0 L 8409655403) ALK PHOS (test code = 168 U/L 34-122 H 3121594755) ALTv (test code = 10 U/L 5-35 1742-6) AST(SGOT) (test code = 23 U/L 13-40 0145990782) eGFR (test code = mL/min/1.73m2 6505338690) CHRISTINE (test code = CHRISTINE) Association of [...] tests). Lab Interpretation Abnormal (test code = 56664-7) [facility] (ID NOW RAPID TESTING)2020-11-27 16:15:24 Test Item Value Reference Range Interpretation Comments SARS-CoV-2 Rapid ID NOW Not Detected Not Detected (test code = 64911-2) CHRISTINE (test code = CHRISTINE) ID NOW COVID-19 Assay is an isothermal nucleic acid amplification test intended for the qualitative detection of nucleic acid from SARS-CoV-2 viral RNA in nasopharyngeal ([address] REPORTER) specimens. It is used under Emergency Use [...] indicated. Lab Interpretation Normal (test code = 31469-3) [facility] WITH [id number] 16:02:41 Test Item Value Reference Range Interpretation [...] (test code = 55.8 fL 39.0-49.9 H 48557-5) RDW-CV (test code = 16.0 % 12.0-15.5 H 788-0) PLT (test code = See_Comment [Automated 777-3) message] The sy stem which generated this result transmitted reference range : 166 - 358 10*3/ ?L. The reference r crispin was not used to interpret this result as normal/abnormal . MPV (test code = 9.8 fL 9.5-12.9 48940-0) NRBC/100 WBC (test See_Comment [Automat ed code = 5915336946) message] The system which generated this result transmitted reference range : 0.0 - 10.0 /100 WBCs. The refer ence range was not u sed to interpret th is result as normal/abnormal . NRBC x10^3 (test code <0.01 See_Comment [Auto mated = 6596925263) message] The s ystem which generated this result transmitted reference range : 10*3/?L. The reference range was not used to interpret this result as normal/abnormal . GRAN MAT (NEUT) % 81.4 % (test code = 770-8) IMM GRAN % (test code 0.50 % = 0021485501) LYMPH % (test code = 11.1 % 736-9) MONO % (test code = 5.9 % 5905-5) EOS % (test code = 0.3 % 713-8) BASO % (test code = 0.8 % 706-2) GRAN MAT x10^3(ANC) 6.04 10*3/uL 1.88-7.09 (test code = 2037804928) IMM GRAN x10^3 (test 0.04 10*3/uL 0.00-0.06 code = 5247575028) LYMPH x10^3 (test code 0.82 10*3/uL 1.32-3.29 L = 731-0) MONO x10^3 (test code 0.44 10*3/uL 0.33-0.92 = 742-7) EOS x10^3 (test code = <0.03 0.03-0.39 L 711-2) BASO x10^3 (test code 0.06 10*3/uL 0.01-0.07 = 704-7) Lab Interpretation Abnormal (test code = 40021-7) [facility] + LACTIC [id number] 15:52:05 Test Item Value Reference Range Interpretation Comments PH (test code = 7.32-7.42 2008837084) PCO2 AALIYAH (test code = See_Comment H [Auto mated 2414501145) message] The sy stem which generated this result transmitted reference range : 41 - 51 mmHg. The reference range was not used to interpret this result as normal/abnormal . PO2 AALIYAH (test code = See_Comment [Autom ated 7876018886) message] The sy stem which generated this result transmitted reference range : 25 - 40 mmHg. The reference range was not used to interpret this result as normal/abnormal . HCO3 AALIYAH (test code = See_Comment H [Auto mated 3993069986) message] The sy stem which generated this result transmitted reference range : 24 - 28 mEq/L. The reference range was not used to interpret this result as normal/abnormal . AC VBE(BEAKER) (test mEq/L code = 5945605505) THB AALIYAH (test code = 13.9 g/dL 12.0-16.0 4476068418) %O2HB AALIYAH (test code = 61.0 % 52.0-63.0 5803366061) %COHB AALIYAH (test code = 3.2 % 0.0-1.5 H 3617656711) %METHB AALIYAH (test code = 0.3 % 0.4-1.5 L 9362885257) VOL%O2 AALIYAH (test code = 11.9 % 6.0-12.0 2333649365) NA (test code = 141 mmol/L 135-145 6254411690) K+ (test code = 4.3 mmol/L 3.5-5.0 0687314746) AC CA IONZ (test code = 4.50 mg/dL 4.50-5.30 1231038765) GLUCOSE (test code = 133 mg/dL 70-110 H 8496580525) LACTIC ACID (test code 1.92 mmol/L 0.50-2.20 = 9350108483) Lab Interpretation Abnormal (test code = 30714-5) [facility]-TERMINAL [id number] 21:02:27 Test Item Value Reference Range Interpretation Comments NT-proBNP (test code 607 pg/mL See_Comment H [Autom ated = 1387299941) message] The system which generated this result transmitted reference range : <=125. The reference range was not used to interpret this result as normal/abnormal . CHRISTINE (test code = CHRISTINE) Biotin has been reported to cause a negative bias, interpret results relative to patient's use of biotin. Lab Interpretation Abnormal (test code = 18430-1) [facility]-REACTIVE [id number] 18:59:27 Test Item Value Reference Range Interpretation Comments CRP (test code = 3417995136) 6.5 mg/dL <0.8 H Lab Interpretation (test code = Abnormal 23531-8) [facility] Tyler[facility] C[facility] [id number] 15:59:00 Test Item Value Reference Range Interpretation Comments Blood Culture-Aerobic No organisms No growth Previo us (test code = 14833-7) isolated prelim inary verified result was Culture In Progress on 11/10/2020 at 195 7 CDT Blood Culture positive. No growth AA Previous Culture-Anaerobic See Blood Culture preli minary (test code = 02510-9) Workup for verifi ed result additional was Culture In information. Progress on 11/10/2020 at 070 1 CDT Lab Interpretation Abnormal (test code = 77125-2) [facility] CULTURE [id number] 15:58:24 Test Item Value Reference Range Interpretation Comments Blood Culture Shewanella algae [place] mor phologically Workup (test consistent with code = 600-7) organism above For susceptibility results, refer to culture # - [id number] Gram stain Isolated from (test code = anaerobic bottle 664-3) Gram negative bacilli [facility] CULTURE [id number] 15:56:17 Test Item Value Reference Range Interpretation Comments Blood Culture-Aerobic Culture positive. No growth AA P revious (test code = 68532-2) See Blood Culture p reliminary Workup for verified result additional was Culture In information. Progress on 11/10/2020 at 070 1 CDT Blood No organisms No growth Previous Culture-Anaerobic isolated preliminar y (test code = 42109-1) verifi ed result was Culture In Progress on 11/10/2020 at 200 0 CDT Lab Interpretation Abnormal (test code = 69151-7) [facility]AL[facility]IN2021-06-08 06:21:11 Test Item Value Reference Range Interpretation Comments Procalcitonin (test 0.10 ng/mL <0.07 H code = 6502931290) CHRISTINE (test code = CHRISTINE) INTERPRETATION OF [...] lung abscess/empyema. For further information please refer to:[email or web address]/[email or web address]/[email or web address] [email or web address] Lab Interpretation Abnormal (test code = 62199-1) [facility] COVID [id number] 17:28:08COVID DMT InterpretationInterpretation/Recommendations: Molecular NAAT Tests for [...] COVID-19 testing the patient has had at [facility], including molecular NAAT testing (more commonly known as PCR testing and Rapid ID Now testing) and antibody testing. It does not take into account any testing that a patient has had outside of the [facility] medical record. [facility] LABORATORY SERVICESCOVID ResultsSA RS-CoV-2 Rapid ID NOW (no units) ? ? Date ? Value ? 11/10/2020 ? Not Detected ? [facility] LABORATORY SERVICES [facility] [id number] 15:25:49 Test Item Value Reference Range Interpretation Comments FREE T4 (test code = See_Comment [Autom ated message] 9706216213) The system [employer] generated this result transmitted ref erence range: 0.78 - 2 .20 ng/dL:. The ref erence range was not u sed to interpret this result as normal/abnor mal. Lab Interpretation (test Normal code = 94568-6) [facility] [id number] 15:25:34 Test Item Value Reference Range Interpretation Comments FREE T3 (test code = 4695863130) 2.05 pg/mL 2.77-5.27 L Lab Interpretation (test code = Abnormal 93114-8) [facility] CHEST 1 [id number] 14:46:22 Chronic emphysematous changes with possible infectious/inflammatoryexacerbation [...] study and agree withthe above report. [facility] (NA, K, CL, CO2, GLUCOSE, BUN, CREATININE, CA)2020-11-12 14:40:25 Test Item Value Reference Range Interpretation Comments NA (test code = 136 mmol/L 135-145 7043742842) K (test code = 4.1 mmol/L 3.5-5.0 3767777906) CL (test code = 100 mmol/L 98-108 8408252028) CO2 TOTAL (test code = 32 mmol/L 23-31 H 9878210067) AGAP (test code = 2-16 6028006205) BUN (test code = 22 mg/dL 7-23 8813196364) GLUCOSE (test code = 90 mg/dL 70-110 5315811984) CREATININE (test code = 0.45 mg/dL 0.50-1.04 L 9271367661) CALCIUM (test code = 9.4 mg/dL 8.6-10.6 7211134692) eGFR (test code = mL/min/1.73m2 2344630988) CHRISTINE (test code = CHRISTINE) Association of [...] tests). Lab Interpretation Abnormal (test code = 19372-1) [facility] with [id number] 14:31:27 Test Item Value Reference Range Interpretation Comments WBC (test code = See_Comment [Automated 2290-2) message] The sy stem which generated this [...] (test code = 51.8 fL 39.0-49.9 H 25873-5) RDW-CV (test code = 15.5 % 12.0-15.5 788-0) PLT (test code = See_Comment [Automated 777-3) message] The sy stem which generated this result transmitted reference range : 166 - 358 10*3/ ?L. The reference r crispin was not used to interpret this result as normal/abnormal . MPV (test code = 9.5 fL 9.5-12.9 38550-7) NRBC/100 WBC (test See_Comment [Automat ed code = 1193185696) message] The system which generated this result transmitted reference range : 0.0 - 10.0 /100 WBCs. The refer ence range was not u sed to interpret th is result as normal/abnormal . NRBC x10^3 (test code <0.01 See_Comment [Auto mated = 5125029816) message] The s ystem which generated this result transmitted reference range : 10*3/?L. The reference range was not used to interpret this result as normal/abnormal . GRAN MAT (NEUT) % 73.8 % (test code = 770-8) IMM GRAN % (test code 0.50 % = 5129849152) LYMPH % (test code = 11.0 % 736-9) MONO % (test code = 11.9 % 5905-5) EOS % (test code = 2.4 % 713-8) BASO % (test code = 0.4 % 706-2) GRAN MAT x10^3(ANC) 5.89 10*3/uL 1.88-7.09 (test code = 0004042879) IMM GRAN x10^3 (test 0.04 10*3/uL 0.00-0.06 code = 8685519251) LYMPH x10^3 (test code 0.88 10*3/uL 1.32-3.29 L = 731-0) MONO x10^3 (test code 0.95 10*3/uL 0.33-0.92 H = 742-7) EOS x10^3 (test code = 0.19 10*3/uL 0.03-0.39 711-2) BASO x10^3 (test code 0.03 10*3/uL 0.01-0.07 = 704-7) Lab Interpretation Abnormal (test code = 40180-7) [facility] Tyler[facility]YROID STIMULATING [id number] 00:51:55 Test Item Value Reference Range Interpretation Comments TSH (test code = See_Comment H [Automated message] 6647609887) The system [employer] generated this result transmitted ref erence range: 0.45 - 4 .70 mIU/L. The refe rence range was not u sed to interpret this result as normal/abnor mal. Lab Interpretation (test Abnormal code = 41593-7) [facility] Tyler[facility] Trough Level - Draw no more than 60 minutes before the 1830 dose.2020-11-12 00:24:13 Test Item Value Reference Range Interpretation Comments VANCO TROUGH (test code 6.7 ug/mL 10.0-20.0 L = 5563057006) CHRISTINE (test code = CHRISTINE) Toxic Range: ?>20 ug/mL 15-20 ug/mL is recommended for severe infection or when Vancomycin MARCELLA is greater than or equal to 2. Lab Interpretation (test Abnormal code = 21182-0) [facility] TylerGRAM NEGATIVE BLOOD PATHOGENS DNA [id number] 09:16:52 Test Item Value Reference Range Interpretation Comments Blood Pathogens by No organisms included in DNA Comment (test the Blood DNA Probe test code = 87428-0) panel were detected. Further identification workup to be performed by culture testing methods. CHRISTINE (test code = See blood culture result CHRISTINE) for additional information. ?Testing included eight identification and six resistance marker targets. [facility] TylerCT THORAX W [id number] 18:24:48 Impression: 1. No pulmonary mass or [...] liver function tests is suggested. RL: 2824AFC: 48842 End of Report Exam: CT Chest Without [...] with liver function tests is suggested.RL: 2824AFC: 54492Xrp of Report [facility]Texas [facility]wallURINALYSIS2021-06-05 09:41:46 Test Item Value Reference Range Interpretation Comments APPEARANCE (test code = Clear Clear 6944322517) COLOR (test code = Mary Ann Yellow A 2501164105) PH (test code = 4.8-8.0 8799990415) SP GRAVITY (test code = 1.003-1.030 0697165395) GLU U QUAL (test code = Normal Normal 3129152330) BLOOD (test code = Negative Negative 8913132701) KETONES (test code = Negative Negative 6612755066) PROTEIN (test code = 100 mg/dL Negative A 2887-8) UROBILIN (test code = 4.0 mg/dL Normal A 4985572182) BILIRUBIN (test code = 2 mg/dL Negative A 1295242576) NITRITE (test code = Negative Negative 3301459887) LEUK FAITH (test code = Negative Negative 2521402254) RBC/HPF (test code = See_Comment H [Autom ated message] 5752622671) The system [employer] generated this result transmit cristhian reference range : 0 - 3 HPF. The refe rence range was not u sed to interpret th is result as normal/abnormal . WBC/HPF (test code = See_Comment [Autom ated message] 4952288923) The system [employer] generated this result transmit cristhian reference range : 0 - 5 HPF. The refe rence range was not u sed to interpret th is result as normal/abnormal . BACTERIA (test code = Few Negative A 5384076513) MUCOUS (test code = Slight Negative LPF A 1916760338) SQ EPITH (test code = HPF 5038857835) HYAL CAST (test code = See_Comment H [Aut omated message] 9149693431) The system [employer] generated this result transmit cristhian reference range : <=2 LPF. The refere nce range was not u sed to interpret th is result as normal/abnormal . Ictotest (test code = Negative 7211303583) Lab Interpretation (test Abnormal code = 45206-5) [facility] (ID NOW RAPID TESTING)2020-11-10 09:17:13 Test Item Value Reference Range Interpretation Comments SARS-CoV-2 Rapid ID NOW Not Detected Not Detected (test code = 82874-9) CHRISTINE (test code = CHRISTINE) ID NOW COVID-19 Assay is an isothermal nucleic acid amplification test intended for the qualitative detection of nucleic acid from SARS-CoV-2 viral RNA in nasopharyngeal ([address] REPORTER) specimens. It is used under Emergency Use [...] indicated. Lab Interpretation Normal (test code = 63705-2) [facility]. METABOLIC PANEL (88449)2020-11-10 09:13:10 Test Item Value Reference Range Interpretation Comments NA (test code = 137 mmol/L 135-145 8977973950) K (test code = 4.2 mmol/L 3.5-5.0 5644080113) CL (test code = 96 mmol/L 98-108 L 9400913024) CO2 TOTAL (test code = 34 mmol/L 23-31 H 7397616692) AGAP (test code = 2-16 7464887753) BUN (test code = 35 mg/dL 7-23 H 9692066518) GLUCOSE (test code = 131 mg/dL 70-110 H 2355779084) CREATININE (test code = 0.64 mg/dL 0.50-1.04 6413828940) TOTAL BILI (test code = 0.7 mg/dL 0.1-1.7 0751066937) CALCIUM (test code = 9.7 mg/dL 8.6-10.6 2756677795) T PROTEIN (test code = 7.7 g/dL 6.3-8.2 7433481592) ALBUMIN (test code = 3.9 g/dL 3.5-5.0 8929879809) ALK PHOS (test code = 202 U/L 34-122 H 0564433608) ALTv (test code = 13 U/L 5-35 1742-6) AST(SGOT) (test code = 27 U/L 13-40 6036781256) eGFR (test code = mL/min/1.73m2 7371730966) CHRISTINE (test code = CHRISTINE) Association of [...] tests). Lab Interpretation Abnormal (test code = 71589-4) [facility] WITH [id number] 09:01:30 Test Item Value Reference Range Interpretation Comments WBC (test code = See_Comment H [Automated 8119-2) message] The system which generated this result transmit cristhian reference range : 4.30 - 11.10 10*3/?L. The reference range was not used to interpret this result as normal/abnormal . RBC (test code = See_Comment [Automated 591-8) message] The system which generated this result [...] (test code = 52.1 fL 39.0-49.9 H 87314-8) RDW-CV (test code = 15.7 % 12.0-15.5 H 788-0) PLT (test code = See_Comment [Automated 777-3) message] The system which generated this result transmit cristhian reference range : 166 - 358 10*3/ ?L. The reference range was not u sed to interpret th is result as normal/abnormal . MPV (test code = 9.7 fL 9.5-12.9 84207-9) NRBC/100 WBC (test See_Comment [Automat ed code = 2040963408) message] The system which generated this result transmit cristhian reference range : 0.0 - 10.0 /100 WBCs. The reference range was not used to interpret this result as normal/abnormal . NRBC x10^3 (test code <0.01 See_Comment [Auto mated = 7897096259) message] The system which generated this result transmit cristhian reference range : 10*3/?L. The reference range was not used to interpret this result as normal/abnormal . GRAN MAT (NEUT) % 88.5 % (test code = 770-8) IMM GRAN % (test code 0.70 % = 3962293836) LYMPH % (test code = 3.1 % 736-9) MONO % (test code = 7.5 % 5905-5) EOS % (test code = 0.0 % 713-8) BASO % (test code = 0.2 % 706-2) GRAN MAT x10^3(ANC) 14.39 10*3/uL 1.88-7.09 H (test code = 7731248808) IMM GRAN x10^3 (test 0.12 10*3/uL 0.00-0.06 H code = 4074604472) LYMPH x10^3 (test code 0.50 10*3/uL 1.32-3.29 L = 731-0) MONO x10^3 (test code 1.22 10*3/uL 0.33-0.92 H = 742-7) EOS x10^3 (test code = <0.03 0.03-0.39 L 711-2) BASO x10^3 (test code 0.04 10*3/uL 0.01-0.07 = 704-7) Lab Interpretation Abnormal (test code = 01172-9) [facility] TylerLactic Acid Whole [id number] 08:58:13 Test Item Value Reference Range Interpretation Comments LACTIC ACID (test code = 1.62 mmol/L 0.50-2.20 1472847433) Lab Interpretation (test code = Normal 49646-5) [facility]
[2022-08-14] MEDS ORDERED: ALBUTEROL 2.5 MG/3 ML NEB SOL NEB PRN ×2 (11:16→14:00)
[2022-08-14] MEDS ORDERED: IPRATROPIUM BROM 0.5MG/2.5ML NEB PRN ×2 (11:24→14:00)
[2022-08-14] MEDS ORDERED: MAGNESIUM HYDROXIDE 8% 30 ML PO PRN (11:26)
[2022-08-14] MEDS: HYDROCODONE/APAP 5/325 MG TAB PO PRN ×3 (11:35→23:59)
[2022-08-14] MEDS: CEPHALEXIN 500 MG CAP PO SCH ×3 (12:29→23:59)
[2022-08-14] MEDS ORDERED: BISACODYL 10 MG RECTAL SUPP PR PRN (13:39)
[2022-08-14] MEDS: METOPROLOL TAR 25 MG TAB PO SCH (17:04)
[2022-08-14] MEDS: DULERA 100/5 (MOMETASONE/FORMOTEROL) INHALER IH SCH (19:56)
[2022-08-14] MEDS: MEGESTROL 400 MG/10 ML UCUP PO SCH ×2 (19:56→20:00)
[2022-08-14] MEDS: DOCUSATE NA 100 MG CAP PO SCH ×2 (19:56→20:00)
[2022-08-14] MEDS: APIXABAN 2.5 MG TABLET PO SCH (19:56)
[2022-08-14] MEDS: MIRTAZAPINE 15 MG TAB PO SCH (19:56)
[2022-08-14] MEDS: methocarbamoL 500 MG TAB PO SCH (19:56)
[2022-08-14] MEDS: lisinopriL 5 MG TAB PO SCH (19:57)
[2022-08-14] MEDS: MAGNESIUM OXIDE 400 MG TAB PO SCH (19:57)
[2022-08-14] MEDS: MUPIROCIN 2% OINT 22GM TUBE TOP SCH (20:00)
[2022-08-14] MEDS: DOCUSATE NA/SENNA CONC 1 TAB PO PRN (20:01)
--- NOTE | 2022-08-14 22:03 | HP ---
Date of Admission: 08/14/2022 Time Of Service: 1:00 p.m. Chief Complaint: Right hip fracture after falling at home. History Of Present Illness: Ms. Bruno is a 72-year-old, right-handed, patient who fell from standing position at home on 08/10/2022. She was evaluated and found to have a leukocytosis of 12.5, elevated AST, ALT, alkaline phosphatase and elevated CPK. The imaging of the area showed angulated subtrochanteric fracture of the right femur with severe narrowing of the right hip joint, moderate narrowing of the left hip joint with sclerotic changes of the right femoral head. Due to the leukocytosis and warmth of the right lower extremity, there is a consideration for cellulitis and she was treated with Ancef. Ultrasound of the lower extremity did rule out deep vein thrombosis. On 08/12/2022, Dr. Elise performed an intramedullary rodding of the right intertrochanteric fracture. She was put on touchdown weightbearing status following surgery. She began to receive physical therapy, which has been complicated by significant pain, managed by morphine and [place]. In addition, she has COPD and chronic chest deformity requiring chronic oxygen supplementation. At this point, given the patient's acute surgery for the right hip fracture and the need of pain management and oxygenation, and chronic chest deformity, which she says is related to a remote fracture that she suffered, which she never immediately sought medical attention. She is felt to be a more appropriate candidate for inpatient rehabilitation versus lower level of care. Past Medical History: She does have severe COPD, tobacco use. She has chronic chest deformity from a fracture in the sternal region, which she has never sought medical attention. She has hypertension, attention deficit disorder, peripheral vascular disease. Past Surgical History: Appendectomy, . Allergies: NO KNOWN DRUG ALLERGIES. Medications: At home, albuterol inhaler 2 puffs every 6 hours, Proventil 0.08 mg nebulizer every 6 hours, Atrovent 0.5 mg nebulizer every 6 hours, Dulera 200 mcg inhaler 2 puffs twice daily. In addition, Keflex 500 mg every 6 hours, Eliquis 2.5 mg twice daily, Synthroid 0.1 mg daily, Prinivil 5 mg twice daily, milk of magnesia 30 mL daily as needed, melatonin 3 mg at bedtime, Remeron 30 mg at bedtime, and Senokot S 2 tablets at bedtime. Family History: Mother, cancer. Social History: Patient smokes on a daily basis. No alcohol consumption and caffeinated beverages. Review of Systems: Significant chest deformity from a remote fracture of the chest for which she never sought advice. She has myalgias, arthralgias. She has mild issues of depression or dysthymia. She has not had a bowel movement in about 6 days. No active genitourinary issues. Laboratory Studies: White blood cell count 10.8, hemoglobin 10.8 as well, platelets 200. Chemistry: Sodium 141, potassium 4.3, chloride 104, BUN 28, creatinine 0.48, glucose 98, calcium 9.2. Magnesium 2.2. Her TSH elevated to 14.4, free T4 normal at 0.8. AST 67, slightly elevated; ALT 44; and alkaline phosphatase is 104. Urinalysis: 1+ ketones, trace total protein. Her COVID testing is negative. X-ray Imaging: Pelvic x-ray on the 6th shows marked osteoarthritis of the right hip, compression screw and intramedullary loyda fixes a femur fracture. There is no dislocation. An ultrasound, study of doppler to rule out DVTs in the lower extremities. Physical Examination: Vital Signs: Blood pressure 161/86, pulse 73, respiratory rate 16, temperature 97.2, oxygen saturation 93% to 100%. General: Ms. Bruno is sitting in a chair beside the bed. She does have a protuberant appearance of the chest from she has had a fracture when she lifted some objects many years ago and broke bones in the chest. She had significant shortness of breath, but she said she never sought medical attention. Eventually, it healed and left her with a significantly compromised ability to breathe fully. Extremities: Otherwise, she has good hemostasis of the right femur fracture site. She does have venous stasis changes on the right foot and a left foot ulcer that is being addressed by Wound Care. In terms of her focal findings, she does have some give-way in terms of strength of the right lower extremity where she does have the hip surgery with loyda placement. Otherwise, she has symmetric left lower extremity strength. She does have decreased air movement and abdomen is nondistended. Current Level Of Functioning: Currently, supine sit transfers done with maximum assistance. She did multiple sit to stand transfers with stand and pivot approach with maximum assistance using a rolling walker. She did require verbal cues to maintain touchdown weightbearing status. She did report some pain to the therapist while she was doing therapy. She did do a sponge bath at the sink requiring supervision. Assessment: Her rehabilitation impairment category is 07 orthopedic, lower extremity fracture. Her impairment group code is 08.11, status post unilateral fracture. Etiologic diagnosis, right hip fracture. Active comorbidities: Anemia, chronic obstructive pulmonary disease, hypertension. Additional risks to include deep vein thrombus in the legs, arrhythmia, falls with further injury, hypoxia, skin breakdown, and infection. Plan: 1. We will have physical and occupational therapies for 3 hours a day 5 of 7 days to improve her gait, balance, coordination, strength, endurance, and performance of activities of daily living. 2. We will continue prednisone for her COPD. Continue Senokot S for significant constipation. May use MiraLAX and stool softeners as appropriate. She does appear to have poor appetite and she ate just portion of her lunch today. Megace 400 mg twice daily will be given, Prinivil 5 mg twice a day for hypertension, Synthroid 0.1 mg daily for hypothyroidism. Keflex will be continued for her right foot ulceration and potential cellulitis. Eliquis 2.5 mg twice daily for DVT prophylaxis. [place] 5/325 for moderate to severe pain and nebulizers as appropriate for COPD. Impact Of Comorbidities: Given the COPD, she has challenges with the ability to maintain endurance. She will have incentive spirometry to assist. Nebulizers will be continued. Chest x-ray will be done to rule out pneumonia. She also on laboratory studies has mild anemia. Iron supplementation will be given. She has a mildly low albumin of 2.8. Protein supplementation. Rehab Specific Plan: 1. She will have physical and occupational therapy. If need be, speech therapy, and she will have 3 hours a day 5 of 7 days. 2. She has a good understanding of the admission process of the inpatient rehabilitation unit. Has a potential to make great improvement requiring at least physical and occupational therapy. Again, if need be, speech therapy will be introduced. She will have additional services including respiratory service, nutrition services, Wound Care, which will be on board given the left foot ulcer and venous stasis changes in the right lower extremity. Given the complex condition and risk of further medical complications, rehabilitation services cannot be safely or affectively provided at a lower level of care such as long-term facility. Barriers To Discharge: Given the significant chest deformity that she has from fractures, she has some limited ability to expand her chest and therefore oxygenating well as will be required for more strenuous tasks such as going up and down steps and ambulating long distances. Again, also COPD is present and she will require oxygen supplementation as she does therapy. Estimated Length Of Stay: Around 14 days. Disposition: Expected she may be discharged home. Prognosis: Good despite her medical conditions and potential complications. Rehabilitation Goals: 1. To be able to transfer with supervision to minimum assistance. 2. Upper and lower body dressing with supervision. 3. Ambulate at least household distances and over 250 feet with modified independence. 4. Up and down maybe 5 steps with supervision. 5. Perform toileting tasks, bathing tasks or activities with modified independence. I acknowledge I personally performed a full physical examination on Ms. Elena Bruno in 24 hours of admission to the inpatient rehabilitation unit and determined she is able to tolerate the above course of treatment at the intensive level as noted. I did individualize plan of care for her will be completed by hospital day 4 based on the preadmission screen, history and physical, and therapy evaluations. ADELA/JUSTIN Voice ID: [id number] MANSOOR
[2022-08-15] MEDS: CEPHALEXIN 500 MG CAP PO SCH ×3 (05:32→17:10)
[2022-08-15] MEDS: METOPROLOL TAR 25 MG TAB PO SCH ×2 (05:32→17:10)
[2022-08-15] MEDS: LEVOTHYROXINE SOD 0.1 MG TAB PO SCH (05:32)
[2022-08-15 06:02] LABS: Absolute Lymphocytes (CBC) 1.2 K/uL (0.7-4.9); Hematocrit 31.9 % (36.0-45.0); Lymphocytes % 14.3 % (15.3-44.8); MCV 91.4 fL (80-100); MPV 7.8 fL (7.6-11.3); RBC Red Blood Cell Count 3.49 M/uL (3.86-4.86)
[2022-08-15 06:25] LABS: Albumin 2.3 g/dL (3.4-5.0); Prealbumin 9.6 mg/dL (20-40)
[2022-08-15 06:26] LABS: Potassium 4.1 mmol/L (3.5-5.1)
[2022-08-15 06:27] LABS: Magnesium 2.1 mg/dL (1.6-2.4)
[2022-08-15] MEDS: DULERA 100/5 (MOMETASONE/FORMOTEROL) INHALER IH SCH ×2 (07:39→20:45)
[2022-08-15] MEDS: lisinopriL 5 MG TAB PO SCH ×2 (07:40→20:00)
[2022-08-15] MEDS: predniSONE 10 MG TAB PO SCH (07:40)
[2022-08-15] MEDS: methocarbamoL 500 MG TAB PO SCH ×2 (07:40→20:47)
[2022-08-15] MEDS: DOCUSATE NA 100 MG CAP PO SCH ×3 (07:40→20:45)
[2022-08-15] MEDS: MAGNESIUM OXIDE 400 MG TAB PO SCH ×2 (07:40→20:46)
[2022-08-15] MEDS: APIXABAN 2.5 MG TABLET PO SCH ×2 (07:40→20:46)
[2022-08-15] MEDS: MEGESTROL 400 MG/10 ML UCUP PO SCH (07:42)
[2022-08-15] MEDS: LIDOCAINE 4% PATCH TOP SCH (11:03)
[2022-08-15] MEDS: MEGESTROL 40 MG TAB PO SCH ×3 (11:04→20:46)
[2022-08-15] MEDS: MUPIROCIN 2% OINT 22GM TUBE TOP SCH ×2 (11:57→20:45)
[2022-08-15] MEDS: HYDROCODONE/APAP 5/325 MG TAB PO PRN ×2 (12:17→22:21)
--- NOTE | 2022-08-15 14:43 | PN ---
Date of Progress Note: 08/15/2022 Time Of Service: 10 a.m. Subjective: Ms. Bruno is in a chair after completing a morning session of therapy. She reports mil d pain and her big complaint is some difficulty sleeping last night due to having muscle spasms, whic h she says acted like ripples moving from lower to upper extremities all the way to the thighs. Othe rwise, she was unable to sleep because of that, but no other new complaints. Review of Systems: As noted, she has right hip fracture and now swelling in the right lower extremity. There are stasis changes in the right leg and in the left leg which is bandaged. There was an ulceration. She denie s any significant issues there. No fevers, chills. No active genitourinary issues. She is working on bowel movement, receiving stool softeners, laxatives, and no other positives on systems review. Physical Examination: Vital Signs: Blood pressure 132/73, pulse of 65, respiratory rate 16, temperature 97.2, oxygen satur ation 98%. General: Ms. Bruno is sitting in a chair beside the bed. She is in no significant distress. HEENT: She is normocephalic, atraumatic. Sclerae anicteric. Chest: She has significant chest wall deformity from chronic fracture she suffered many, many years ago. Abdomen: Otherwise, she has soft abdomen. Extremities: She has mild edema proximally in the right lower extremity. In addition, she has liche nification and chronic stasis changes in the right leg. She has left leg bandaged from her ulceratio n. In terms of strength, she has no focal deficits. Mild diffuse weakness in extremities. Laboratory Studies: White blood cell count 8.1, hemoglobin 10.5, platelets 229. Chemistries; prealb umin 9.6, creatinine 0.49. X-ray/imaging: None. Medications: [place] 5/325 every 4 hours as needed, albuterol nebulizer 2.5 mg every 6 hours, Eliquis 2.5 mg twice daily, baclofen 5 mg daily, Keflex 500 mg every 6 hours, Colace 100 mg twice daily, Ensu re Enlive 4 ounces twice daily, Atrovent 0.5 mg nebulizer daily, Synthroid 0.1 mg daily, lidocaine 1 patch daily, Prinivil 5 mg twice daily, milk of magnesia 30 mL daily, magnesium oxide 400 mg twice da coy, Megace 40 mg twice daily, melatonin 3 mg at bedtime, methocarbamol 500 mg twice daily, Lopressor 25 mg twice daily, Remeron 30 mg at bedtime, ondansetron 4 mg every 4 hours, Senokot 2 tabs at bedti me. She will start baclofen 5 mg at night. Current Functional Status: Currently, she is doing a supine sit transfer with maximum assistance and multiple sit to stand transfers and stand pivot transfer with maximum assistance using a rolling wal ker and requiring verbal cues to maintain touchdown weightbearing status. Progress Towards Rehabilitation Goals: At this point, she is making fair progress towards her goals of being able to transfer from bed to chair, to toilet, to commode and shower with modified independe nce to ambulate the household distances with modified independence, to dress upper and lower body wit h modified independence and to complete all of her medication and cognitive issues with modified inde pendence. Assessment: Ms. Bruno is a 72-year-old patient, admitted to the rehabilitation unit with right hip fracture, status post surgical repair, who is making fair progress so far overall with therapy. Her active comorbidities include anemia, chronic obstructive pulmonary disease, hypertension, cardiac arr hythmia, hypoxia, skin breakdown and stasis changes in the lower extremity. She has an ulceration in the left foot. Plan: 1.Continue physical and occupational therapy for 3 hours, 5 to 7 days. She will if need be have spe ech therapy added. For COPD, continue with nebulizers. For constipation, continue with Senokot-S, s tool softeners, laxatives including MiraLAX and suppositories as appropriate. 2.Continue with protein supplementation and appetite stimulant. She will have Megace actually 40 mg twice daily. Continue Prinivil 5 mg twice daily for hypertension, Synthroid 0.1 mg daily for hypoth yroidism and she is on Keflex for left foot ulceration and possible cellulitis. She is also on Eliqu is 2.5 mg daily for DVT prophylaxis. She has [place] for pain. Comorbidities That Continue To Impact Rehabilitation Process: She does have ulceration of the left f oot and is on antibiotics for that. However, she is still able to bear weight on that foot and she i s maintaining touchdown weightbearing on the right where she has the right hip fracture. She has poo r appetite and is on Megace to stimulate the appetite. She has protein supplementation. In addition , there were some range of motion issues in the upper extremities due to a chronic fracture she suffe red in the chest that was not addressed surgically. ADELA/JUSTIN Voice ID: [id number] Report ID: [id number]
[2022-08-15] MEDS: ENSURE PUDDING 4 OZ CUP PO SCH (20:00)
[2022-08-15] MEDS: JUVEN PACKET PO SCH ×2 (20:00→20:46)
[2022-08-15] MEDS: BACLOFEN 10 MG TAB PO SCH (20:48)
[2022-08-15] MEDS: MIRTAZAPINE 15 MG TAB PO SCH ×2 (20:48→21:00)
[2022-08-15] MEDS: DOCUSATE NA/SENNA CONC 1 TAB PO PRN (20:49)
[2022-08-15 21:22] LABS: Specific Gravity 1.019 (1.005-1.030); Urine Bacteria <20 /HPF (<20); Urine Bilirubin NEGATIVE (Negative); Urine Blood Negative (Negative); Urine Clarity Clear (Clear); Urine Color Yellow (Yellow); Urine Glucose NEGATIVE (Negative); Urine Mucus Slight /HPF (None Seen); Urine Protein TRACE (Negative); Urine RBC <5 /HPF (None Seen); Urine Urobilinogen Normal (Normal); Urine pH 6.5 (5.0-7.0)
[2022-08-16] MEDS: CEPHALEXIN 500 MG CAP PO SCH ×5 (00:05→23:39)
[2022-08-16] MEDS: HYDROCODONE/APAP 5/325 MG TAB PO PRN ×2 (03:44→10:25)
[2022-08-16] MEDS: MELATONIN 3 MG TABLET PO PRN (03:44)
[2022-08-16] MEDS: LEVOTHYROXINE SOD 0.1 MG TAB PO SCH (05:27)
[2022-08-16] MEDS: METOPROLOL TAR 25 MG TAB PO SCH ×2 (05:28→17:26)
[2022-08-16] MEDS: MEGESTROL 40 MG TAB PO SCH ×2 (08:00→20:00)
[2022-08-16] MEDS: ENSURE PUDDING 4 OZ CUP PO SCH ×2 (08:00→20:09)
[2022-08-16] MEDS: JUVEN PACKET PO SCH ×2 (08:00→20:00)
[2022-08-16] MEDS: DOCUSATE NA 100 MG CAP PO SCH ×2 (08:00→20:00)
[2022-08-16] MEDS: LIDOCAINE 4% PATCH TOP SCH (08:48)
[2022-08-16] MEDS: methocarbamoL 500 MG TAB PO SCH ×2 (08:50→20:08)
[2022-08-16] MEDS: MAGNESIUM OXIDE 400 MG TAB PO SCH ×2 (08:50→20:09)
[2022-08-16] MEDS: APIXABAN 2.5 MG TABLET PO SCH ×2 (08:51→20:09)
[2022-08-16] MEDS: predniSONE 10 MG TAB PO SCH (08:51)
[2022-08-16] MEDS: lisinopriL 5 MG TAB PO SCH ×2 (08:51→20:08)
[2022-08-16] MEDS: DULERA 100/5 (MOMETASONE/FORMOTEROL) INHALER IH SCH ×2 (08:53→20:09)
[2022-08-16] MEDS: MUPIROCIN 2% OINT 22GM TUBE TOP SCH ×2 (09:09→20:07)
[2022-08-16] MEDS: BACLOFEN 10 MG TAB PO SCH (20:08)
[2022-08-16] MEDS: MIRTAZAPINE 15 MG TAB PO SCH (20:18)
[2022-08-17] MEDS: METOPROLOL TAR 25 MG TAB PO SCH ×2 (05:01→17:28)
[2022-08-17] MEDS: CEPHALEXIN 500 MG CAP PO SCH ×4 (05:01→23:58)
[2022-08-17] MEDS: HYDROCODONE/APAP 5/325 MG TAB PO PRN (05:02)
[2022-08-17] MEDS: LEVOTHYROXINE SOD 0.1 MG TAB PO SCH (07:17)
[2022-08-17] MEDS: ALBUTEROL 2.5 MG/3 ML NEB SOL NEB SCH ×2 (07:46→21:35)
[2022-08-17] MEDS: IPRATROPIUM BROM 0.5MG/2.5ML NEB SCH ×2 (07:46→21:35)
[2022-08-17] MEDS: JUVEN PACKET PO SCH ×2 (08:00→20:00)
[2022-08-17] MEDS: ENSURE PUDDING 4 OZ CUP PO SCH ×2 (08:00→20:34)
[2022-08-17] MEDS: DOCUSATE NA 100 MG CAP PO SCH ×2 (08:00→20:00)
[2022-08-17] MEDS: lisinopriL 5 MG TAB PO SCH ×2 (08:00→20:34)
[2022-08-17] MEDS: MEGESTROL 40 MG TAB PO SCH ×2 (08:00→20:00)
[2022-08-17] MEDS: predniSONE 10 MG TAB PO SCH (09:06)
[2022-08-17] MEDS: DULERA 100/5 (MOMETASONE/FORMOTEROL) INHALER IH SCH ×2 (09:07→20:32)
[2022-08-17] MEDS: MAGNESIUM OXIDE 400 MG TAB PO SCH ×3 (09:08→20:34)
[2022-08-17] MEDS: APIXABAN 2.5 MG TABLET PO SCH ×2 (09:08→20:34)
[2022-08-17] MEDS: methocarbamoL 500 MG TAB PO SCH ×2 (09:12→20:32)
[2022-08-17] MEDS: ONDANSETRON 4 MG (ODT) TAB PO PRN ×2 (09:14→20:45)
[2022-08-17] MEDS: LIDOCAINE 4% PATCH TOP SCH (09:33)
[2022-08-17] MEDS: MUPIROCIN 2% OINT 22GM TUBE TOP SCH ×2 (09:33→20:35)
[2022-08-17] MEDS: MIRTAZAPINE 15 MG TAB PO SCH (20:20)
[2022-08-17] MEDS: BACLOFEN 10 MG TAB PO SCH (20:33)
[2022-08-18] MEDS: HYDROCODONE/APAP 5/325 MG TAB PO PRN ×3 (00:01→13:27)
[2022-08-18] MEDS: CEPHALEXIN 500 MG CAP PO SCH ×4 (05:28→23:54)
[2022-08-18] MEDS: METOPROLOL TAR 25 MG TAB PO SCH ×2 (05:29→17:12)
[2022-08-18] MEDS: LEVOTHYROXINE SOD 0.1 MG TAB PO SCH (06:52)
[2022-08-18 07:47] LABS: Absolute Lymphocytes (CBC) 1.7 K/uL (0.7-4.9); Hematocrit 28.1 % (36.0-45.0); Lymphocytes % 17.7 % (15.3-44.8); MCV 90.9 fL (80-100); RBC Red Blood Cell Count 3.09 M/uL (3.86-4.86)
[2022-08-18 07:58] LABS: Potassium 4.4 mmol/L (3.5-5.1)
[2022-08-18] MEDS: DOCUSATE NA 100 MG CAP PO SCH ×2 (08:00→20:00)
[2022-08-18] MEDS: lisinopriL 5 MG TAB PO SCH ×2 (08:00→21:21)
[2022-08-18] MEDS: JUVEN PACKET PO SCH ×2 (08:00→20:00)
[2022-08-18] MEDS: MEGESTROL 40 MG TAB PO SCH ×2 (08:00→20:00)
[2022-08-18] MEDS: ENSURE PUDDING 4 OZ CUP PO SCH ×2 (08:00→21:22)
[2022-08-18] MEDS: APIXABAN 2.5 MG TABLET PO SCH ×2 (08:45→21:20)
[2022-08-18] MEDS: LIDOCAINE 4% PATCH TOP SCH (08:45)
[2022-08-18] MEDS: predniSONE 10 MG TAB PO SCH (08:46)
[2022-08-18] MEDS: ALBUTEROL 2.5 MG/3 ML NEB SOL NEB SCH ×2 (08:50→20:30)
[2022-08-18] MEDS: IPRATROPIUM BROM 0.5MG/2.5ML NEB SCH ×2 (08:50→20:30)
[2022-08-18] MEDS: DULERA 100/5 (MOMETASONE/FORMOTEROL) INHALER IH SCH ×2 (09:49→21:19)
[2022-08-18] MEDS: methocarbamoL 500 MG TAB PO SCH ×2 (09:58→21:22)
[2022-08-18] MEDS: MUPIROCIN 2% OINT 22GM TUBE TOP SCH ×2 (09:58→21:19)
[2022-08-18] MEDS: MAGNESIUM OXIDE 400 MG TAB PO SCH ×2 (09:58→21:19)
--- NOTE | 2022-08-18 13:45 | RAD REPORT ---
EXAM DESCRIPTION: US - Extremity Venous Uni Ltd - 08/18/2022 1:11 pm CLINICAL HISTORY: Increased swelling and redness COMPARISON: None. TECHNIQUE: Real-time sonographic evaluation of the right lower extremity deep venous system was perf ormed. FINDINGS: Normal compressibility, flow augmentation, phasic flow and spontaneous flow is identified in the right lower extremity deep venous system. No intraluminal filling defects seen. Lobulated, thin-walled, septated 3.4 x 3.0 x 2.2 centimeter, cystic structure, in the right groin, wi thout internal vascular flow. Elongated 5.3 centimeter cystic structure in the popliteal fossa, most suggestive of a Shah cyst. IMPRESSION: No evidence of DVT in the right lower extremity. Incidentally noted 3.4 centimeter mildly complex right groin cystic lesion, nonspecific, and could re present a chronic seroma. Elongated cystic structure in the right popliteal fossa, most suggestive of a Shah cyst.
[2022-08-18] MEDS: MIRTAZAPINE 15 MG TAB PO SCH (21:00)
[2022-08-18] MEDS: BACLOFEN 10 MG TAB PO SCH (21:20)
[2022-08-19] MEDS: CEPHALEXIN 500 MG CAP PO SCH ×4 (05:30→23:52)
[2022-08-19] MEDS: METOPROLOL TAR 25 MG TAB PO SCH ×2 (05:31→17:02)
[2022-08-19] MEDS: HYDROCODONE/APAP 5/325 MG TAB PO PRN ×2 (05:33→23:54)
[2022-08-19] MEDS: LEVOTHYROXINE SOD 0.1 MG TAB PO SCH (06:28)
[2022-08-19] MEDS: IPRATROPIUM BROM 0.5MG/2.5ML NEB SCH ×2 (07:50→19:51)
[2022-08-19] MEDS: ALBUTEROL 2.5 MG/3 ML NEB SOL NEB SCH ×2 (07:50→19:51)
[2022-08-19] MEDS: DULERA 100/5 (MOMETASONE/FORMOTEROL) INHALER IH SCH ×2 (07:53→19:56)
[2022-08-19] MEDS: MEGESTROL 40 MG TAB PO SCH ×2 (07:54→19:57)
[2022-08-19] MEDS: DOCUSATE NA 100 MG CAP PO SCH ×2 (07:54→19:54)
[2022-08-19] MEDS: MAGNESIUM OXIDE 400 MG TAB PO SCH ×2 (07:55→19:49)
[2022-08-19] MEDS: FE SULF/FA/VIT B COMP & C TAB PO SCH (07:55)
[2022-08-19] MEDS: predniSONE 10 MG TAB PO SCH (07:55)
[2022-08-19] MEDS: lisinopriL 5 MG TAB PO SCH ×2 (07:55→19:49)
[2022-08-19] MEDS: APIXABAN 2.5 MG TABLET PO SCH ×2 (07:55→19:49)
[2022-08-19] MEDS: methocarbamoL 500 MG TAB PO SCH ×2 (07:56→19:49)
[2022-08-19] MEDS: JUVEN PACKET PO SCH ×2 (08:00→19:56)
[2022-08-19] MEDS: ENSURE PUDDING 4 OZ CUP PO SCH ×2 (08:00→19:56)
[2022-08-19] MEDS: LIDOCAINE 4% PATCH TOP SCH (08:11)
[2022-08-19] MEDS: MUPIROCIN 2% OINT 22GM TUBE TOP SCH (11:50)
[2022-08-19] MEDS: BACLOFEN 10 MG TAB PO SCH (19:48)
[2022-08-19] MEDS: MIRTAZAPINE 15 MG TAB PO SCH (19:57)
[2022-08-20] MEDS: CEPHALEXIN 500 MG CAP PO SCH ×3 (05:33→17:17)
[2022-08-20] MEDS: METOPROLOL TAR 25 MG TAB PO SCH ×2 (05:34→17:17)
[2022-08-20 06:20] LABS: Absolute Lymphocytes (CBC) 1.9 K/uL (0.7-4.9); Hematocrit 29.1 % (36.0-45.0); Lymphocytes % 16.8 % (15.3-44.8); MCV 90.3 fL (80-100); MPV 7.2 fL (7.6-11.3); RBC Red Blood Cell Count 3.22 M/uL (3.86-4.86)
[2022-08-20] MEDS: LEVOTHYROXINE SOD 0.1 MG TAB PO SCH (06:25)
[2022-08-20 06:41] LABS: Albumin 2.6 g/dL (3.4-5.0); Magnesium 2.3 mg/dL (1.6-2.4); Prealbumin 15.5 mg/dL (20-40)
[2022-08-20] MEDS: DULERA 100/5 (MOMETASONE/FORMOTEROL) INHALER IH SCH ×2 (07:53→20:51)
[2022-08-20] MEDS: IPRATROPIUM BROM 0.5MG/2.5ML NEB SCH ×2 (07:57→20:50)
[2022-08-20] MEDS: ALBUTEROL 2.5 MG/3 ML NEB SOL NEB SCH ×2 (07:57→20:50)
[2022-08-20] MEDS: ENSURE PUDDING 4 OZ CUP PO SCH ×2 (08:00→21:00)
[2022-08-20] MEDS: JUVEN PACKET PO SCH ×2 (08:00→20:00)
[2022-08-20] MEDS: MEGESTROL 40 MG TAB PO SCH ×2 (08:04→20:00)
[2022-08-20] MEDS: FE SULF/FA/VIT B COMP & C TAB PO SCH (08:04)
[2022-08-20] MEDS: DOCUSATE NA 100 MG CAP PO SCH ×2 (08:04→20:51)
[2022-08-20] MEDS: methocarbamoL 500 MG TAB PO SCH ×2 (08:05→20:49)
[2022-08-20] MEDS: lisinopriL 5 MG TAB PO SCH ×2 (08:05→20:50)
[2022-08-20] MEDS: MAGNESIUM OXIDE 400 MG TAB PO SCH ×2 (08:07→20:50)
[2022-08-20] MEDS: APIXABAN 2.5 MG TABLET PO SCH ×2 (08:07→20:49)
[2022-08-20] MEDS: predniSONE 10 MG TAB PO SCH (08:08)
[2022-08-20] MEDS: LIDOCAINE 4% PATCH TOP SCH (09:45)
[2022-08-20] MEDS: MEDIHONEY 44 ML TOPICAL TUBE TOP SCH (09:54)
[2022-08-20] MEDS: FUROSEMIDE 20 MG TABLET PO ONE ×2 (19:24→20:51)
[2022-08-20] MEDS: MINOCYCLINE HCL 50 MG CAP PO SCH (20:48)
[2022-08-20] MEDS: SMZ./TMP. 800/160 MG TABLET PO SCH (20:49)
[2022-08-20] MEDS: BACLOFEN 10 MG TAB PO SCH (20:49)
[2022-08-20] MEDS: MIRTAZAPINE 15 MG TAB PO SCH (20:51)
[2022-08-20] MEDS: MUPIROCIN 2% OINT 22GM TUBE TOP SCH (20:59)
[2022-08-21] MEDS: HYDROCODONE/APAP 5/325 MG TAB PO PRN (00:45)
[2022-08-21] MEDS: METOPROLOL TAR 25 MG TAB PO SCH ×2 (05:22→17:37)
[2022-08-21] MEDS: LEVOTHYROXINE SOD 0.1 MG TAB PO SCH (05:44)
[2022-08-21] MEDS: JUVEN PACKET PO SCH ×2 (08:00→20:00)
[2022-08-21] MEDS: MEDIHONEY 44 ML TOPICAL TUBE TOP SCH (08:00)
[2022-08-21] MEDS: FUROSEMIDE 40 MG TABLET PO SCH (08:00)
[2022-08-21] MEDS: ENSURE PUDDING 4 OZ CUP PO SCH ×2 (08:00→20:57)
[2022-08-21] MEDS: IPRATROPIUM BROM 0.5MG/2.5ML NEB SCH ×2 (08:20→20:25)
[2022-08-21] MEDS: ALBUTEROL 2.5 MG/3 ML NEB SOL NEB SCH ×2 (08:20→20:25)
[2022-08-21] MEDS: DULERA 100/5 (MOMETASONE/FORMOTEROL) INHALER IH SCH ×2 (08:48→20:00)
[2022-08-21] MEDS: methocarbamoL 500 MG TAB PO SCH ×2 (08:50→20:54)
[2022-08-21] MEDS: SMZ./TMP. 800/160 MG TABLET PO SCH ×2 (08:51→20:42)
[2022-08-21] MEDS: FE SULF/FA/VIT B COMP & C TAB PO SCH (08:51)
[2022-08-21] MEDS: predniSONE 10 MG TAB PO SCH (08:51)
[2022-08-21] MEDS: MINOCYCLINE HCL 50 MG CAP PO SCH ×2 (08:51→20:00)
[2022-08-21] MEDS: DOCUSATE NA 100 MG CAP PO SCH ×2 (08:51→20:42)
[2022-08-21] MEDS: LIDOCAINE 4% PATCH TOP SCH (08:51)
[2022-08-21] MEDS: MEGESTROL 40 MG TAB PO SCH ×2 (08:52→20:00)
[2022-08-21] MEDS: MAGNESIUM OXIDE 400 MG TAB PO SCH ×2 (08:53→20:00)
[2022-08-21] MEDS: APIXABAN 2.5 MG TABLET PO SCH ×2 (08:53→20:39)
[2022-08-21] MEDS: lisinopriL 5 MG TAB PO SCH ×2 (08:54→20:40)
[2022-08-21] MEDS: MUPIROCIN 2% OINT 22GM TUBE TOP SCH ×4 (08:56→20:51)
[2022-08-21 19:26] VITALS: BMI 17.9
[2022-08-21] MEDS: BACLOFEN 10 MG TAB PO SCH (20:43)
[2022-08-21] MEDS: MIRTAZAPINE 15 MG TAB PO SCH (20:51)
[2022-08-22] MEDS: HYDROCODONE/APAP 5/325 MG TAB PO PRN ×2 (00:54→23:40)
[2022-08-22] MEDS: METOPROLOL TAR 25 MG TAB PO SCH ×2 (05:25→17:06)
[2022-08-22] MEDS: LEVOTHYROXINE SOD 0.1 MG TAB PO SCH (06:32)
[2022-08-22 07:15] LABS: Absolute Lymphocytes (CBC) 1.6 K/uL (0.7-4.9); Hematocrit 27.9 % (36.0-45.0); Lymphocytes % 15.7 % (15.3-44.8); MCV 91.1 fL (80-100); RBC Red Blood Cell Count 3.06 M/uL (3.86-4.86)
[2022-08-22 07:18] LABS: Potassium 3.9 mEq/L (3.5-5.1)
[2022-08-22] MEDS: DULERA 100/5 (MOMETASONE/FORMOTEROL) INHALER IH SCH ×2 (07:21→20:54)
[2022-08-22] MEDS: APIXABAN 2.5 MG TABLET PO SCH ×2 (07:23→20:54)
[2022-08-22] MEDS: FE SULF/FA/VIT B COMP & C TAB PO SCH ×2 (07:23→08:00)
[2022-08-22] MEDS: SMZ./TMP. 800/160 MG TABLET PO SCH ×2 (07:23→20:53)
[2022-08-22] MEDS: DOCUSATE NA 100 MG CAP PO SCH ×3 (07:23→20:53)
[2022-08-22] MEDS: predniSONE 10 MG TAB PO SCH (07:23)
[2022-08-22] MEDS: FUROSEMIDE 40 MG TABLET PO SCH (07:24)
[2022-08-22] MEDS: lisinopriL 5 MG TAB PO SCH ×2 (07:25→20:57)
[2022-08-22] MEDS: MEGESTROL 40 MG TAB PO SCH ×3 (07:25→20:56)
[2022-08-22] MEDS: MAGNESIUM OXIDE 400 MG TAB PO SCH ×3 (07:25→20:55)
[2022-08-22] MEDS: methocarbamoL 500 MG TAB PO SCH ×2 (07:26→20:57)
[2022-08-22] MEDS: ENSURE PUDDING 4 OZ CUP PO SCH ×2 (07:29→20:00)
[2022-08-22] MEDS: MINOCYCLINE HCL 50 MG CAP PO SCH ×2 (08:00→20:00)
[2022-08-22] MEDS: JUVEN PACKET PO SCH ×2 (08:00→20:00)
[2022-08-22] MEDS: ALBUTEROL 2.5 MG/3 ML NEB SOL NEB SCH ×2 (08:40→22:15)
[2022-08-22] MEDS: IPRATROPIUM BROM 0.5MG/2.5ML NEB SCH ×2 (08:40→22:15)
[2022-08-22] MEDS: MUPIROCIN 2% OINT 22GM TUBE TOP SCH ×3 (09:00→20:58)
[2022-08-22] MEDS: LIDOCAINE 4% PATCH TOP SCH (10:32)
[2022-08-22] MEDS: MEDIHONEY 44 ML TOPICAL TUBE TOP SCH (10:32)
[2022-08-22] MEDS: ENSURE CLEAR 200 ML CAN PO SCH ×3 (16:45→20:54)
[2022-08-22] MEDS: BACLOFEN 10 MG TAB PO SCH (20:58)
[2022-08-22] MEDS: MIRTAZAPINE 15 MG TAB PO SCH (20:59)
[2022-08-23] MEDS: HYDROCODONE/APAP 5/325 MG TAB PO PRN ×2 (03:57→21:27)
[2022-08-23] MEDS: MAGNESIUM OXIDE 400 MG TAB PO SCH ×2 (04:54→21:29)
[2022-08-23] MEDS: MELATONIN 3 MG TABLET PO PRN (04:55)
[2022-08-23] MEDS: METOPROLOL TAR 25 MG TAB PO SCH ×2 (05:01→17:07)
[2022-08-23] MEDS: LEVOTHYROXINE SOD 0.1 MG TAB PO SCH (06:51)
[2022-08-23] MEDS: FE SULF/FA/VIT B COMP & C TAB PO SCH (08:00)
[2022-08-23] MEDS: MINOCYCLINE HCL 50 MG CAP PO SCH ×2 (08:00→21:28)
[2022-08-23] MEDS: JUVEN PACKET PO SCH ×3 (08:00→21:30)
[2022-08-23] MEDS: DULERA 100/5 (MOMETASONE/FORMOTEROL) INHALER IH SCH ×2 (08:00→21:27)
[2022-08-23] MEDS: ENSURE PUDDING 4 OZ CUP PO SCH ×2 (08:00→20:00)
[2022-08-23] MEDS: LIDOCAINE 4% PATCH TOP SCH (08:12)
[2022-08-23] MEDS: lisinopriL 5 MG TAB PO SCH ×2 (08:13→21:28)
[2022-08-23] MEDS: SMZ./TMP. 800/160 MG TABLET PO SCH ×3 (08:13→21:28)
[2022-08-23] MEDS: MEGESTROL 40 MG TAB PO SCH ×3 (08:13→21:27)
[2022-08-23] MEDS: predniSONE 10 MG TAB PO SCH (08:13)
[2022-08-23] MEDS: DOCUSATE NA 100 MG CAP PO SCH ×2 (08:13→21:29)
[2022-08-23] MEDS: APIXABAN 2.5 MG TABLET PO SCH ×2 (08:13→21:29)
[2022-08-23] MEDS: FUROSEMIDE 40 MG TABLET PO SCH (08:14)
[2022-08-23] MEDS: ENSURE CLEAR 200 ML CAN PO SCH ×2 (08:15→21:30)
[2022-08-23] MEDS: methocarbamoL 500 MG TAB PO SCH ×3 (08:16→21:31)
[2022-08-23] MEDS: ALBUTEROL 2.5 MG/3 ML NEB SOL NEB SCH ×2 (08:45→21:50)
[2022-08-23] MEDS: IPRATROPIUM BROM 0.5MG/2.5ML NEB SCH ×2 (08:45→21:50)
[2022-08-23] MEDS: MUPIROCIN 2% OINT 22GM TUBE TOP SCH ×3 (09:00→21:00)
[2022-08-23] MEDS: MEDIHONEY 44 ML TOPICAL TUBE TOP SCH ×2 (10:07→21:26)
[2022-08-23] MEDS: MIRTAZAPINE 15 MG TAB PO SCH ×2 (21:00→21:28)
[2022-08-23] MEDS: DOCUSATE NA/SENNA CONC 1 TAB PO PRN (21:28)
[2022-08-23] MEDS: BACLOFEN 10 MG TAB PO SCH (21:28)
[2022-08-24] MEDS: HYDROCODONE/APAP 5/325 MG TAB PO PRN ×3 (00:37→23:19)
[2022-08-24] MEDS: METOPROLOL TAR 25 MG TAB PO SCH ×2 (05:17→17:05)
[2022-08-24] MEDS: LEVOTHYROXINE SOD 0.1 MG TAB PO SCH (05:26)
[2022-08-24] MEDS ORDERED: FUROSEMIDE 20 MG TABLET ONE (06:53)
[2022-08-24] MEDS: LIDOCAINE 4% PATCH TOP SCH (07:41)
[2022-08-24] MEDS: MINOCYCLINE HCL 50 MG CAP PO SCH ×2 (07:42→20:18)
[2022-08-24] MEDS: DOCUSATE NA 100 MG CAP PO SCH ×3 (07:42→20:18)
[2022-08-24] MEDS: APIXABAN 2.5 MG TABLET PO SCH ×2 (07:42→20:18)
[2022-08-24] MEDS: FUROSEMIDE 40 MG TABLET PO SCH (07:44)
[2022-08-24] MEDS: MAGNESIUM OXIDE 400 MG TAB PO SCH ×3 (07:45→20:18)
[2022-08-24] MEDS: lisinopriL 5 MG TAB PO SCH ×2 (07:45→20:19)
[2022-08-24] MEDS: predniSONE 10 MG TAB PO SCH (07:45)
[2022-08-24] MEDS: DULERA 100/5 (MOMETASONE/FORMOTEROL) INHALER IH SCH ×2 (07:46→20:18)
[2022-08-24] MEDS: ENSURE CLEAR 200 ML CAN PO SCH ×2 (07:47→20:19)
[2022-08-24] MEDS: ENSURE PUDDING 4 OZ CUP PO SCH ×2 (07:47→20:00)
[2022-08-24] MEDS: JUVEN PACKET PO SCH ×2 (08:00→20:00)
[2022-08-24] MEDS: MEGESTROL 40 MG TAB PO SCH ×2 (08:00→20:00)
[2022-08-24] MEDS: FE SULF/FA/VIT B COMP & C TAB PO SCH (08:00)
[2022-08-24] MEDS: methocarbamoL 500 MG TAB PO SCH ×2 (08:00→20:00)
[2022-08-24] MEDS: SMZ./TMP. 800/160 MG TABLET PO SCH ×2 (08:00→20:00)
[2022-08-24] MEDS: MEDIHONEY 44 ML TOPICAL TUBE TOP SCH ×2 (08:00)
[2022-08-24] MEDS: ALBUTEROL 2.5 MG/3 ML NEB SOL NEB SCH ×2 (08:25→20:50)
[2022-08-24] MEDS: IPRATROPIUM BROM 0.5MG/2.5ML NEB SCH ×2 (08:25→20:50)
[2022-08-24] MEDS: MUPIROCIN 2% OINT 22GM TUBE TOP SCH ×3 (09:00→20:20)
[2022-08-24 12:20] LABS: Absolute Lymphocytes (CBC) 0.6 K/uL (0.7-4.9); Hematocrit 32.6 % (36.0-45.0); Lymphocytes % 4.2 % (15.3-44.8); MCV 91.3 fL (80-100); MPV 7.4 fL (7.6-11.3); RBC Red Blood Cell Count 3.57 M/uL (3.86-4.86)
[2022-08-24 12:25] LABS: Potassium 4.1 mEq/L (3.5-5.1)
[2022-08-24] MEDS: BACLOFEN 10 MG TAB PO SCH (20:19)
[2022-08-24] MEDS: MIRTAZAPINE 15 MG TAB PO SCH (20:27)
[2022-08-25] MEDS: methocarbamoL 500 MG TAB PO SCH ×3 (02:23→20:00)
[2022-08-25] MEDS: MELATONIN 3 MG TABLET PO PRN (02:23)
--- NOTE | 2022-08-25 04:11 | P.PN ---
Subjective Date of Service: 08/17/22 Subjective: No new changes, No C/O voiced, Improving Review of Systems 10-point ROS is otherwise unremarkable Physical Examination - Vital Signs Temperature: 97.5 F Blood Pressure: 111/74 Pulse: 82 Respirations: 18 Pulse Ox (%): 98 - Physical Exam General: Alert, In no apparent distress, Oriented x3 HEENT: Atraumatic, PERRLA, EOMI Neck: Supple, JVD not distended Respiratory: Clear to auscultation bilaterally, Normal air movement Cardiovascular: Regular rate/rhythm, Normal S1 S2 Gastrointestinal: Normal bowel sounds, Soft and benign, Non-distended, No tenderness Musculoskeletal: No clubbing, No swelling, No tenderness Integumentary: Rash(es), Skin breakdown, Tenderness/swelling Neurological: Sensation intact, Cranial nerves 3-12 intact, Abnormal gait, Abnormal strength - Studies Laboratory Data (last 24 hrs) 08/24/22 11:37: Sodium 137, Potassium 4.1, BUN 18, Creatinine 0.83, Glucose 101 08/24/22 11:37: WBC 15.00 H, Hgb 10.6 L, Hct 32.6 L, Plt Count 391 Medications List Reviewed: Yes Assessment & Plan - Problems (Diagnosis) (1) COPD (chronic obstructive pulmonary disease) Current Visit: No Status: Acute Qualifiers: (2) Intertrochanteric fracture of right femur Onset Date: ~08/10/22 Current Visit: No Status: Acute Qualifiers: (3) Severe protein-calorie malnutrition Current Visit: No Status: Acute (4) Tobacco use Current Visit: No Status: Acute (5) Venous stasis ulcer Current Visit: Yes Status: Acute (6) Lower extremity edema Current Visit: Yes Status: Acute - Plan Plan: 1. Continue with PT/OT/ speech therapy 2. Continue with antibiotic therapy 3. May need does add gentle diuresing 4. Continue with inhaler therapy 5. Continue to encourage patient to get out of bed to ambulate 6. Gi and DVT prophylaxis Discharge Plan: Home Plan to discharge in: 48 Hours - Advance Directives Does patient have a Living Will: No Does patient have a Durable POA for Healthcare: No - Code Status/Comfort Care Code Status Assessed: Yes Code Status: Full Code - Malnutrition Assessment Physician Review of Nutrition Assessment: I am in agreement with the nutrition assessment of this patient Critical Care: No Time Spent Managing PTS Care (In Minutes): 30 Date of Service: 08/17/22 Impact Of Comorbidities: Given the COPD, she has challenges with the ability to maintain endurance. She will have incentive spirometry to assist. Nebulizers will be continued. Chest x- ray will be done to rule out pneumonia. She also on laboratory studies has mild anemia. Iron supplementation will be given. She has a mildly low albumin of 2.8. Protein supplementation started. Rehab Specific Plan: 1. She will have physical and occupational therapy. If need be, speech therapy, and she will have 3 hours a day 5 of 7 days. 2. She has a good understanding of the admission process of the inpatient rehabilitation unit. Has a potential to make great improvement requiring at least physical and occupational therapy. Again, if need be, speech therapy will be introduced. She will have additional services including respiratory service,nutrition services, Wound Care, which will be on board given the left foot ulcer and venous stasis changes in the right lower extremity. Given the complex condition and risk of further medical complications, rehabilitation services cannot be safely or effectively provided at a lower level of care such as halfway facility. Barriers To Discharge: Given the significant chest deformity that she has from fractures, she has some limited ability to expand her chest and therefore oxygenating well as will be required for more strenuous tasks such as going up and down steps and ambulating long distances. Again, also COPD is present and she will require oxygen supplementation as she does therapy. Estimated Length Of Stay: Around 14 total days. Disposition: Expected she may be discharged home with . Prognosis: Good despite her medical conditions and potential complications. Rehabilitation Goals: 1. To be able to transfer with supervision to minimum assistance. 2. Upper and lower body dressing with supervision. 3. Ambulate at least household distances and over
--- NOTE | 2022-08-25 04:29 | P.PN ---
Date of Service: 08/18/22 Subjective Subjective: SINCE ERYTHEMA STILL HAS NOT IMPROVED SHE WILL PROBABLY CHANGE HER ANTIBIOTICS TO BACTRIM DS WITH MINOCYCLINE FOR MRSA COVERAGE ALONG WITH DIURESING PATIENT. Review of Systems 10-point ROS is otherwise unremarkable Physical Examination - Vital Signs REVIEWED - Physical Exam General: Alert, In no apparent distress, Oriented x3 Respiratory: Clear to auscultation bilaterally, Normal air movement Cardiovascular: Regular rate/rhythm, Normal S1 S2 Gastrointestinal: Normal bowel sounds, Soft and benign, Non-distended, No tenderness Musculoskeletal: No clubbing, No swelling, No tenderness Integumentary: Rash(es), Skin breakdown, Tenderness/swelling Neurological: Sensation intact, Cranial nerves 3-12 intact, Abnormal gait, Abnormal strength Assessment & Plan - Problems (Diagnosis) (1) COPD (chronic obstructive pulmonary disease) Current Visit: No Status: Acute (2) Intertrochanteric fracture of right femur Onset Date: ~08/10/22 Current Visit: No Status: Acute (3) Severe protein-calorie malnutrition Current Visit: No Status: Acute (4) Tobacco use Current Visit: No Status: Acute (5) Venous stasis ulcer Current Visit: Yes Status: Acute (6) Lower extremity edema Current Visit: Yes Status: Acute - Plan Continue with plan of care as mentioned below: 1. Continue with PT/OT/ speech therapy; patient is having a hard time ambulating because of lower extremity cellulitis; However, she continues to make progress. Continue to encourage her and pain control. Antibiotics have been changed. Patient gently diuresing. Hopefully, we can work on discharging her as planned over the next 10 days. 2. Continue with antibiotic therapy 3. Continue Lasix and Bactrim at this time. 4. Continue to encourage patient to get out of bed to ambulate 5. Gi and DVT prophylaxis Discharge Plan: Home Plan to discharge in: 48 Hours - Advance Directives Does patient have a Living Will: No Does patient have a Durable POA for Healthcare: No - Code Status/Comfort Care Code Status Assessed: Yes Code Status: Full Code - Malnutrition Assessment Physician Review of Nutrition Assessment: I am in agreement with the nutrition assessment of this patient Critical Care: No Time Spent Managing PTS Care (In Minutes): 30 Date of Service: 08/17/22 Impact Of Comorbidities: Given the COPD, she has challenges with the ability to maintain endurance. She w ill have incentive spirometry to assist. Nebulizers will be continued. Chest x- ray will be done to rule out pneumonia. She also on laboratory studies has mild anemia. Iron supplementation will be given. She has a mildly low albumin of 2.8. Protein supplementation started. Rehab Specific Plan: 1. She will have physical and occupational therapy. If need be, speech therapy, and she will have 3 hours a day 5 of 7 days. 2. She has a good understanding of the admission process of the inpatient rehabilitation unit. Has a potential to make great improvement requiring at [facility] physical and occupational therapy. Again, if need be, speech therapy will be introduced. She will have additional services including respiratory service,nutrition services, Wound Care, which will be on board given the left foot ulcer and venous stasis changes in the right lower extremity. Given the complex condition and risk of further medical complications, rehabilitation services cannot be safely or effectively provided at a lower level of care such as [facility] facility. Barriers To Discharge: Given the significant chest deformity that she has from fractures, she has some limited ability to expand her chest and therefore oxygenating well as will be required for more strenuous tasks such as going up and down steps and ambulating long distances. Again, also COPD is present and she will require oxygen supplementation as she does therapy. Estimated Length Of Stay: Around 14 total days. Disposition: Expected she may be discharged home with . Prognosis: Good despite her medical conditions and potential complications. Rehabilitation Goals: 1. To be able to transfer with supervision to minimum assistance. 2. Upper and lower body dressing with supervision. 3. Ambulate at least household distances and over
--- NOTE | 2022-08-25 04:35 | P.PN ---
Date of Service: 08/20/22 Subjective Subjective: Patient states her swelling is improved. Erythema is also improved. Continue with antibiotic therapy and gently diuresing. She is participating better in rehab and hopefully as the swelling comes down and the infection improves we can get her to work even more. Repeat labs over the next 48-72 hours. Review of Systems 10-point ROS is otherwise unremarkable Physical Examination - Vital Signs REVIEWED - Physical Exam General: Alert, In no apparent distress, Oriented x3 Respiratory: Clear to auscultation bilaterally, Normal air movement Cardiovascular: Regular rate/rhythm, Normal S1 S2 Gastrointestinal: Normal bowel sounds, Soft and benign, Non-distended, No tenderness Musculoskeletal: No clubbing, No swelling, No tenderness Integumentary: Rash(es), Skin breakdown, Tenderness/swelling Neurological: Sensation intact, Cranial nerves 3-12 intact, Abnormal gait, Abnormal strength Assessment & Plan - Problems (Diagnosis) (1) COPD (chronic obstructive pulmonary disease) Current Visit: No Status: Acute (2) Intertrochanteric fracture of right femur Onset Date: ~08/10/22 Current Visit: No Status: Acute (3) Severe protein-calorie malnutrition Current Visit: No Status: Acute (4) Tobacco use Current Visit: No Status: Acute (5) Venous stasis ulcer Current Visit: Yes Status: Acute (6) Lower extremity edema Current Visit: Yes Status: Acute - Plan Continue with plan of care as mentioned below: 1. Continue with PT/OT/ speech therapy; Patient ambulating better. Continue with antibiotics and diuresing. However, she continues to make progress. Continue to encourage her and pain control. Hopefully, we can work on discharging her as planned over the next 10 days. 2. Continue with antibiotic therapy 3. Continue Lasix and Bactrim at this time. 4. Continue to encourage patient to get out of bed to ambulate 5. Continue with protein supplementation 6. Gi and DVT prophylaxis Discharge Plan: Home Plan to discharge in: 48 Hours - Advance Directives Does patient have a Living Will: No Does patient have a Durable POA for Healthcare: No - Code Status/Comfort Care Code Status Assessed: Yes Code Status: Full Code - Malnutrition Assessment Physician Review of Nutrition Assessment: I am in agreement with the nutrition assessment of this patient Critical Care: No Time Spent Managing PTS Care (In Minutes): 30 Date of Service: 03/12/23 Impact Of Comorbidities: Given the COPD, she has challenges with the ability to maintain endurance. She will have incentive spirometry to assist. Nebulizers will be continued. Chest x-ray will be done to rule out pneumonia. She also on laboratory studies has mild anemia. Iron supplementation will be given. She has a mildly low albumin of 2.8. Protein supplementation started. Rehab Specific Plan: 1. She will have physical and occupational therapy. If need be, speech therapy, and she will have 3 hours a day 5 of 7 days. 2. She has a good understanding of the admission process of the inpatient rehabilitation unit. Has a potential to make great improvement requiring at least physical and occupational therapy. Again, if need be, speech therapy will be introduced. She will have additional services including respiratory service,nutrition services, Wound Care, which will be on board given the left foot ulcer and venous stasis changes in the right lower extremity. Given the complex condition and risk of further medical complications, rehabilitation services cannot be safely or effectively provided at a lower level of care such as [facility] facility. Barriers To Discharge: Given the significant chest deformity that she has from fractures, she has some limited ability to expand her chest and therefore oxygenating well as will be required for more strenuous tasks such as going up and down steps and ambulating long distances. Again, also COPD is present and she will require oxygen supplementation as she does therapy. Estimated Length Of Stay: Around 14 total days. Disposition: Expected she may be discharged home with . Prognosis: Good despite her medical conditions and potential complications. Rehabilitation Goals: 1. To be able to transfer with supervision to minimum assistance. 2. Upper and lower body dressing with supervision. 3. Ambulate at least household distances and over
--- NOTE | 2022-08-25 04:36 | P.PN ---
Date of Service: 08/22/22 Subjective Subjective: we met with the inter disciplinary team. Recommendations in place. Continue working on a increasing ambulation. Continue diuresing. Continue with medication for erythema. Patient on low-dose steroids as well. Repeat labs Review of Systems 10-point ROS is otherwise unremarkable Physical Examination - Vital Signs REVIEWED - Physical Exam General: Alert, In no apparent distress, Oriented x3 Respiratory: Clear to auscultation bilaterally, Normal air movement Cardiovascular: Regular rate/rhythm, Normal S1 S2 Gastrointestinal: Normal bowel sounds, Soft and benign, Non-distended, No tenderness Musculoskeletal: No clubbing, No swelling, No tenderness Integumentary: Rash(es), Skin breakdown, Tenderness/swelling Neurological: Sensation intact, Cranial nerves 3-12 intact, Abnormal gait, Abnormal strength Assessment & Plan - Problems (Diagnosis) (1) COPD (chronic obstructive pulmonary disease) Current Visit: No Status: Acute (2) Intertrochanteric fracture of right femur Onset Date: ~08/10/22 Current Visit: No Status: Acute (3) Severe protein-calorie malnutrition Current Visit: No Status: Acute (4) Tobacco use Current Visit: No Status: Acute (5) Venous stasis ulcer Current Visit: Yes Status: Acute (6) Lower extremity edema Current Visit: Yes Status: Acute - Plan Continue with plan of care as mentioned below: 1. Continue with PT/OT/ speech therapy; Patient ambulating better. Continue with antibiotics and diuresing. However, she continues to make progress. Continue to encourage her and pain control. Hopefully, we can work on discharging her as planned over the next 10 days. 2. Continue with antibiotic therapy 3. Continue Lasix and Bactrim at this time. 4. Continue to encourage patient to get out of bed to ambulate 5. Continue with protein supplementation 6. Gi and DVT prophylaxis Discharge Plan: Home Plan to discharge in: 48 Hours - Advance Directives Does patient have a Living Will: No Does patient have a Durable POA for Healthcare: No - Code Status/Comfort Care Code Status Assessed: Yes Code Status: Full Code - Malnutrition Assessment Physician Review of Nutrition Assessment: I am in agreement with the nutrition assessment of this patient Critical Care: No Time Spent Managing PTS Care (In Minutes): 30 Date of Service: 08/17/22 Impact Of Comorbidities: Given the COPD, she has challenges with the ability to maintain endurance. She will have incentive spirometry to assist. Nebulizers will be continued. Chest x- ray will be done to rule out pneumonia. She also on laboratory studies has mild anemia. Iron supplementation will be given. She has a mildly low albumin of 2.8. Protein supplementation started. Rehab Specific Plan: 1. She will have physical and occupational therapy. If need be, speech therapy, and she will have 3 hours a day 5 of 7 days. 2. She has a good understanding of the admission process of the inpatient rehabilitation unit. Has a potential to make great improvement requiring at least physical and occupational therapy. Again, if need be, speech therapy will be introduced. She will have additional services including respiratory service,n utrition services, Wound Care, which will be on board given the left foot ulcer and venous stasis changes in the right lower extremity. Given the complex condition and risk of further medical complications, rehabilitation services cannot be safely or effectively provided at a lower level of care such as longterm facility. Barriers To Discharge: Given the significant chest deformity that she has from fractures, she has some limited ability to expand her chest and therefore oxygenating well as will be required for more strenuous tasks such as going up and down steps and ambulating long distances. Again, also COPD is present and she will require oxygen supplementation as she does therapy. Estimated Length Of Stay: Around 14 total days. Disposition: Expected she may be discharged home with . Prognosis: Good despite her medical conditions and potential complications. Rehabilitation Goals: 1. To be able to transfer with supervision to minimum assistance. 2. Upper and lower body dressing with supervision. 3. Ambulate at least household distances and over
[2022-08-25] MEDS: METOPROLOL TAR 25 MG TAB PO SCH ×2 (05:10→17:20)
[2022-08-25] MEDS: LEVOTHYROXINE SOD 0.1 MG TAB PO SCH (06:36)
[2022-08-25] MEDS: DULERA 100/5 (MOMETASONE/FORMOTEROL) INHALER IH SCH ×2 (07:02→21:09)
[2022-08-25] MEDS: LIDOCAINE 4% PATCH TOP SCH (07:02)
[2022-08-25] MEDS: HYDROCODONE/APAP 5/325 MG TAB PO PRN (07:03)
[2022-08-25] MEDS: FE SULF/FA/VIT B COMP & C TAB PO SCH (08:00)
[2022-08-25] MEDS: MEDIHONEY 44 ML TOPICAL TUBE TOP SCH ×2 (08:00→16:14)
[2022-08-25] MEDS: JUVEN PACKET PO SCH ×2 (08:00→20:00)
[2022-08-25] MEDS: MEGESTROL 40 MG TAB PO SCH ×2 (08:00→20:00)
[2022-08-25] MEDS: SMZ./TMP. 800/160 MG TABLET PO SCH ×2 (08:00→20:00)
[2022-08-25] MEDS: predniSONE 10 MG TAB PO SCH (08:21)
[2022-08-25] MEDS: MAGNESIUM OXIDE 400 MG TAB PO SCH ×2 (08:21→20:59)
[2022-08-25] MEDS: lisinopriL 5 MG TAB PO SCH ×2 (08:22→20:59)
[2022-08-25] MEDS: FUROSEMIDE 40 MG TABLET PO SCH (08:22)
[2022-08-25] MEDS: MINOCYCLINE HCL 50 MG CAP PO SCH ×2 (08:23→20:00)
[2022-08-25] MEDS: APIXABAN 2.5 MG TABLET PO SCH ×2 (08:23→20:59)
[2022-08-25] MEDS: DOCUSATE NA 100 MG CAP PO SCH ×2 (08:23→20:58)
[2022-08-25] MEDS: ENSURE PUDDING 4 OZ CUP PO SCH ×2 (08:24→21:02)
[2022-08-25] MEDS: ENSURE CLEAR 200 ML CAN PO SCH ×2 (08:24→20:00)
[2022-08-25] MEDS: IPRATROPIUM BROM 0.5MG/2.5ML NEB SCH ×2 (08:40→22:50)
[2022-08-25] MEDS: ALBUTEROL 2.5 MG/3 ML NEB SOL NEB SCH ×2 (08:40→22:50)
[2022-08-25] MEDS: MUPIROCIN 2% OINT 22GM TUBE TOP SCH ×2 (09:00→14:00)
[2022-08-25] MEDS ORDERED: HYDROCODONE/APAP 7.5/325 MG TAB PO PRN (13:43)
--- NOTE | 2022-08-25 16:11 | RAD REPORT ---
EXAM DESCRIPTION: Ruben Single View08/25/2022 3:52 pm CLINICAL HISTORY: Chest pain COMPARISON: August 10, 2022 FINDINGS: The lungs appear clear of acute infiltrate. The heart is mildly enlarged Moderate hiatal hernia IMPRESSION: No acute abnormalities displayed
[2022-08-25] MEDS: levoFLOXacin 500 MG TAB PO SCH (20:58)
[2022-08-25] MEDS: BACLOFEN 10 MG TAB PO SCH (20:59)
[2022-08-25] MEDS: MIRTAZAPINE 15 MG TAB PO SCH (21:00)
--- NOTE | 2022-08-25 22:26 | PN ---
Date of Progress Note: 08/25/2022 Time Of Service: 12:30 p.m. Subjective: Ms. Bruno is sitting in a chair beside the bed. She does complain of some unusual burn ing sensation across the top of her chest. She said it is not like heartburn, not related to eating, but may occur when coughing or moving her chest around and she says that it is on both sides. There was reported talk about chest x-ray to be done, but not yet and actually it was ordered only today. At this point, the report is back on the chest x-ray, which did show lungs being clear. Heart mildl y enlarged. Moderate hiatal hernia. No abnormalities identified. Otherwise, she reports doing fair ly well and at baseline, no other complaints. Review of Systems: She denies any fevers or chills. Again, reports chest pain related to significant anatomical changes that occurred after she suffered an injury long time ago. She denies any gastrointestinal or genito urinary issues. Physical Examination: Vital Signs: 140/72, pulse 90, respiratory rate 16, temperature 97.8, oxygen saturation 92%. General: Ms. Bruno is resting in a chair beside the bed. She is in no new complaints. Extremities: The right hip surgical site has good hemostasis. The protective dressing is in place. There is no exudate. There is mild slight improving bruising noted at the base of the right hip merari ssing and in no pain or swelling or unexpected finding at the surgical site. No other findings posit hermila on the examination. Laboratory Studies: White blood cell did increase from 10.2 on to with neutrophils u p to 89, and a chest x-ray which was just recently reported was clear. She has not had a repeat urin alysis. Yesterday, on the , her chemistries were all normal. Her COVID-19 test on the was negative. It should be noted that she was receiving Bactrim DS from 08/20/2022 up to the 08/24/2022. She is also on minocycline from 08/20/2022 100 mg twice daily and it was given also today. Medications: Currently, prednisone 10 mg daily, Senokot-S 2 at bedtime, Zofran 4 mg every 4 hours as needed, Hemocyte Plus 1 twice daily, Remeron 30 mg at bedtime, Lopressor 25 mg twice daily, Robaxin 500 mg twice daily, melatonin 3 mg at bedtime, Megace 40 mg twice daily, magnesium oxide 400 mg twice daily, milk of mag 30 mL daily for constipation, Prinivil 5 mg twice daily, lidocaine patch 1 topica lly to the right hip site daily, Synthroid 0.1 mg daily, Atrovent 0.5 mg nebulizer twice daily, Lasix 40 mg daily, baclofen 5 mg at bedtime, Eliquis 2.5 mg twice daily, Schneider 5/325 every 4 hours as need ed. Current Functional Status: Apparently, Ms. Bruno is able to perform multiple sit to stand, and josefina d to pivot transfers with standby assistance using a rolling walker. She performs stand to pivot tra nsfers with a wheelchair to toilet with standby assistance. She ambulated 70 feet and 100 feet with contact guard assistance using a rolling walker. She mobilized a wheelchair 150 feet and 200 feet wi th improved strength and endurance. With Occupational Therapy, she did seated dressing tasks, upper body dressing with opening shirt that was done with setup assistance. She did have decrease in stabi lity in standing and she is not seen by Speech Therapy. Progress Towards Rehabilitation Goals: She is making improved progress towards her goals of upper an d lower body dressing, transferring, ambulating more than household distances with a rolling walker a nd going up and down stairs, and those are improving. Assessment And Plan: Ms. Bruno is a 72-year-old patient admitted to the rehabilitation unit with a right hip fracture. She also yesterday was noted to have an elevated white blood cell count. Chest x-ray is clear. The white blood cell count does come with an increased neutrophil level. She is on antibiotics, which includes trimethoprim/sulfamethoxazole, which was given from the to . In addition, minocycline 100 mg twice daily. She did report some burning across the chest with the cou ghing, but has not been producing sputum. Attempts will be made to capture sputum and look for cultu res and sensitivities and perhaps add Levaquin 500 mg daily, especially with the elevated white blood cell count. The white blood cell count will be repeated in 2 days and she will be watched for any f ever or other possible evidence of developing infection. She has comorbid chronic obstructive pulmon wandy disease, hypertension, cardiac arrhythmia, skin breakdown, lower extremity ulceration of left rebecca t. Plan: 1.As noted, we will look for sputum cultures and may adjust antibiotic profile. 2.Continue Prinivil for hypertension. 3.Continue Synthroid for hypothyroidism. 4.Continue Keflex for foot ulceration. 5.Eliquis for DVT prophylaxis. 6.Schneider for pain. Comorbidities That Continue To Impact Rehabilitation Process: Note, her left foot ulceration and johanny t is being treated with antibiotics. She does have touchdown weightbearing status there and that is making slightly difficult for her to improve with the right hip fracture. She has improving appetite with Megace and again the possibility of infection in the chest with the report of burning, may cons ider adding Levaquin. LB/MODL Voice ID: [id number] Report ID: [id number]
[2022-08-26 04:57] LABS: Absolute Lymphocytes (CBC) 1.6 K/uL (0.7-4.9); Lymphocytes % 14.2 % (15.3-44.8); MCV 91.8 fL (80-100); MPV 7.3 fL (7.6-11.3); RBC Red Blood Cell Count 3.05 M/uL (3.86-4.86)
[2022-08-26 05:02] LABS: Potassium 3.9 mEq/L (3.5-5.1)
[2022-08-26] MEDS: METOPROLOL TAR 25 MG TAB PO SCH ×2 (05:13→17:22)
[2022-08-26] MEDS: LEVOTHYROXINE SOD 0.1 MG TAB PO SCH (05:30)
[2022-08-26 06:11] LABS: Specific Gravity 1.015 (1.005-1.030); Urine Bacteria None Seen /HPF (<20); Urine Bilirubin NEGATIVE (Negative); Urine Blood Negative (Negative); Urine Clarity Turbid (Clear); Urine Color Light-Yellow (Yellow); Urine Glucose NEGATIVE (Negative); Urine Protein NEGATIVE (Negative); Urine RBC <5 /HPF (None Seen); Urine Urobilinogen Normal (Normal); Urine pH 7.5 (5.0-7.0)
[2022-08-26] MEDS: IPRATROPIUM BROM 0.5MG/2.5ML NEB SCH ×2 (07:56→19:45)
[2022-08-26] MEDS: ALBUTEROL 2.5 MG/3 ML NEB SOL NEB SCH ×2 (07:56→19:45)
[2022-08-26] MEDS: methocarbamoL 500 MG TAB PO SCH ×2 (08:00→20:00)
[2022-08-26] MEDS: JUVEN PACKET PO SCH ×2 (08:00→20:00)
[2022-08-26] MEDS: MEGESTROL 40 MG TAB PO SCH ×2 (08:00→20:00)
[2022-08-26] MEDS: DULERA 100/5 (MOMETASONE/FORMOTEROL) INHALER IH SCH ×2 (08:00→20:12)
[2022-08-26] MEDS: predniSONE 10 MG TAB PO SCH (08:00)
[2022-08-26] MEDS: ENSURE CLEAR 200 ML CAN PO SCH ×2 (08:00→20:00)
[2022-08-26] MEDS: ENSURE PUDDING 4 OZ CUP PO SCH ×2 (08:00→20:17)
[2022-08-26] MEDS: MAGNESIUM OXIDE 400 MG TAB PO SCH ×2 (08:00→20:16)
[2022-08-26] MEDS: levoFLOXacin 500 MG TAB PO SCH (08:01)
[2022-08-26] MEDS: FUROSEMIDE 40 MG TABLET PO SCH (08:01)
[2022-08-26] MEDS: DOCUSATE NA 100 MG CAP PO SCH ×2 (08:01→20:00)
[2022-08-26] MEDS: APIXABAN 2.5 MG TABLET PO SCH ×2 (08:01→20:12)
[2022-08-26] MEDS: MINOCYCLINE HCL 50 MG CAP PO SCH ×2 (08:02→20:00)
[2022-08-26] MEDS: lisinopriL 5 MG TAB PO SCH ×2 (08:03→20:00)
[2022-08-26] MEDS: LIDOCAINE 4% PATCH TOP SCH (08:03)
[2022-08-26] MEDS: FE SULF/FA/VIT B COMP & C TAB PO SCH (08:03)
[2022-08-26] MEDS: MEDIHONEY 44 ML TOPICAL TUBE TOP SCH (14:58)
[2022-08-26] MEDS: BACLOFEN 10 MG TAB PO SCH (20:13)
[2022-08-26] MEDS: MIRTAZAPINE 15 MG TAB PO SCH (20:17)
--- NOTE | 2022-08-26 22:29 | PN ---
Date of Progress Note: 08/26/2022 [id number] Progress Note Visit Time Of Service: 1 p.m. Subjective: Ms. Bruno is in a chair in the gym. She does say the discomfort she feels across the t op of her chest has not worsened, but not necessarily improved much. She did have an x-ray of the est, which showed no pneumonia and she does have as noted as significant chest abnormality from the p rior injury. Otherwise on subjective complaints, she does not have any new complaints. Review of Systems: She has noted some chest discomfort that is chronic and longstanding and she notes some shoulder disc omfort as she is mobilizing wheelchair likely related to use of that arm as she mobilizes the wheelch air. She actually does agree with that possible etiology. She does not have any evidence of swellin g in the upper extremities that suggests evidence of being thrombus there. Otherwise negative on the rest of systems review. Physical Examination: Vital Signs: Blood pressure 135/67, pulse of 73, respiratory rate of 16, temperature 97.5, and oxyge n saturation 97%. General: Ms. Bruno is sitting comfortably in a chair. She is in no acute distress. Head And Neck: She is normocephalic, atraumatic. Sclerae anicteric. Oropharynx moist. Chest: She does have a chest wall abnormality that is stable. There is protuberance of the chest wa ll which has been chronic. Extremities: She does have some neuralgia of the shoulders. Strength in upper extremities is 4/5 pr oximally and distally, lower extremities similar does not have focal weakness. The right hip surgica l site has good hemostasis and there is no drainage. There is mild edema noted in the right lower ex tremity. Laboratory Studies: Today white blood cell count is better than 15 yesterday, it is 11.2. Her neutr ophil count is now normal at about 8.9 normal calcium, glucose normal at 79. She did have a repeat urinalysis that showed turbid urine with pH elevated at 7.5, otherwise completely normal. X-ray/imaging: No new x-ray or imaging. Medications: She did have Levaquin 500 mg daily started and Bactrim is continued. Senokot 2 tablets at bedtime, prednisone 10 mg daily, Hemocyte Plus daily, Remeron 30 mg at bedtime, minocycline lynda nued at 100 mg twice daily, Lopressor 25 mg twice daily, Robaxin 500 mg twice daily, melatonin 3 mg a t bedtime, Megace 40 mg twice daily, magnesium oxide 400 mg twice daily, Prinivil 5 mg twice daily, S ynthroid 0.1 mg daily, Lasix 40 mg daily, Eliquis 2.5 mg twice daily, albuterol 2.5 mg twice daily, N orco 7.5/325 mg every 4 hours as needed, and alternatively depending moderate pain scale to severe __ Current Functional Status: Apparently Ms. Bruno did ambulate 75 feet and 125 feet with standby assi stance using rolling walker. She also ambulated another 150 feet, 250 feet, and another 100 feet wit h standby assistance using a rolling walker. She did multiple stand and pivot transfers with standby assistance using a rolling walker. She performed toilet transfers using grab bars independently whi le maintaining nonweightbearing status to her right lower extremity where she has had right hip surge ry. Progress Towards Rehabilitation Goals: Ms. Bruno is making good progress towards her goals of mobil izing 250 feet with modified independence, transfers with modified independence, upper and lower body dressing with modified independence. Assessment: Ms. Bruno is a 72-year-old patient in rehabilitation unit with right hip fracture statu s post repair and she is not doing well in that respect. White blood cell count has improved. Neutr ophils are now normal. She is switched over to Levaquin from Bactrim and she is continued on minocyc line. She did have some burning across the chest and arms and likely related to mobilizing the wheel chair, which she . She has no evidence of pneumonia on x-ray. Urinalysis is good. She di d have the wound in the right total hip that Medihoney is being applied. She did have some area arou nd the right toenail where there was some swelling with tension of an infection there and the podiatr ist, Dr. Meade will be addressing that. She has comorbidities of chronic obstructive pulmonary disea se, hypertension, the ulceration again in the toe of the left foot and that again will be addressed b mica Meade. Plan: 1.Continue physical and occupational therapy as noted. 2.Continue Eliquis for DVT prophylaxis. 3.Continue the Levaquin as noted. 4.Continue to follow up with manufacturing sr engineer. 5.Continue Camby as need for pain and all other medications as noted. Comorbidities That Continue To Impact Rehabilitation Process: The left foot ulceration, which has be en treated again with multiple antibiotics. She will have the manufacturing sr engineer evaluate the toe and the na il and for additional intervention. She does have poor appetite, Megace is helping. The burning of chest and arms might be related to use of wheelchair . ADELA/JUSTIN Voice ID: [id number] Report ID: [id number]
[2022-08-27] MEDS: METOPROLOL TAR 25 MG TAB PO SCH ×2 (05:12→17:37)
[2022-08-27] MEDS: LEVOTHYROXINE SOD 0.1 MG TAB PO SCH (05:31)
[2022-08-27] MEDS: DULERA 100/5 (MOMETASONE/FORMOTEROL) INHALER IH SCH ×2 (06:31→20:40)
[2022-08-27] MEDS: MAGNESIUM OXIDE 400 MG TAB PO SCH ×2 (07:38→20:42)
[2022-08-27] MEDS: lisinopriL 5 MG TAB PO SCH ×2 (07:38→20:00)
[2022-08-27] MEDS: predniSONE 10 MG TAB PO SCH (07:39)
[2022-08-27] MEDS: methocarbamoL 500 MG TAB PO SCH ×2 (07:39→20:46)
[2022-08-27] MEDS: levoFLOXacin 500 MG TAB PO SCH (07:39)
[2022-08-27] MEDS: APIXABAN 2.5 MG TABLET PO SCH ×2 (07:40→20:41)
[2022-08-27] MEDS: ENSURE PUDDING 4 OZ CUP PO SCH ×2 (07:40→20:42)
[2022-08-27] MEDS: FUROSEMIDE 40 MG TABLET PO SCH (07:40)
[2022-08-27] MEDS: ENSURE CLEAR 200 ML CAN PO SCH ×2 (07:40→20:41)
[2022-08-27] MEDS: DOCUSATE NA 100 MG CAP PO SCH ×2 (07:40→20:00)
[2022-08-27] MEDS: LIDOCAINE 4% PATCH TOP SCH (07:57)
[2022-08-27] MEDS: FE SULF/FA/VIT B COMP & C TAB PO SCH (08:00)
[2022-08-27] MEDS: MEGESTROL 40 MG TAB PO SCH ×2 (08:00→20:00)
[2022-08-27] MEDS: JUVEN PACKET PO SCH ×3 (08:00→20:41)
[2022-08-27] MEDS: IPRATROPIUM BROM 0.5MG/2.5ML NEB SCH ×2 (08:40→20:45)
[2022-08-27] MEDS: ALBUTEROL 2.5 MG/3 ML NEB SOL NEB SCH ×2 (08:40→20:45)
[2022-08-27] MEDS: MEDIHONEY 44 ML TOPICAL TUBE TOP SCH (12:30)
--- NOTE | 2022-08-27 12:32 | P.CNS ---
Date of Consult: 08/27/22 Reason for Consult: painful toenails and wounds bilateral lower extremity Allergies No Known Allergies Allergy (Verified 08/14/22 15:30) Home Medications: Apixaban [Eliquis] 2.5 mg PO BID 08/14/22 Hydrocodone 5/APAP 325 [[place] 5/325*] 1 tab PO Q4H PRN 08/14/22 Levothyroxine [Synthroid*] 1 tab PO 0630 08/14/22 Magnesium Oxide [Mag 0X*] 400 mg PO BID 08/14/22 Melatonin [Melatonin*] 3 mg PO BEDTIME 08/14/22 Metoprolol Tartrate [Lopressor*] 25 mg PO BID 08/14/22 Mirtazapine [Remeron] 30 mg PO BEDTIME 08/14/22 Mometasone/Formoterol [Dulera 100 Mcg-5 Mcg Inhaler] 2 puff IN BID 08/14/22 lisinopriL [Lisinopril] 5 mg PO BID 08/14/22 methocarbamoL [Robaxin*] 500 mg PO BID 08/14/22 predniSONE [Deltasone*] 10 mg PO DAILY 08/14/22 - Past Medical/Surgical History Diabetic: No -: COPDon home O2 -: Tobacco use -: Attention -: -: Appendectomy Psychosocial/ Personal History: Patient is at home, alone - Family History Mother Medical History: Cancer - Social History Smoking Status: Current every day smoker Alcohol use: No CD- Drugs: No Caffeine use: No Place of Residence: Home Review of Systems 10-point ROS is otherwise unremarkable Physical Examination Temp Pulse Resp BP Pulse Ox 97.4 F 78 18 107/68 97 08/27/22 07:22 08/27/22 07:40 08/27/22 08:39 08/27/22 07:40 08/27/22 08:39 General: Alert, In no apparent distress, Oriented x3 Cardiovascular: No edema, Abnormal pulses (nonpalpable pedal pulses bilateral lower extremity) Capillary refill: >2 Seconds Musculoskeletal: No clubbing, No swelling, No contractures, No erythema, No tenderness, No warmth Integumentary: No rashes, No breakdown, Arterial ulcer (ulcerations dorsal aspect of left hallux, left foot and medial ankle with large fibrin, punched out appearand, no signs of infection. ), Other (Wound to anterior and lateral right leg with no signs of infection. Thickened hypertrophic hallux nails bilateral with elongated nais 2-5 bilateral) Neurological: Sensation intact - Problems (1) Generalized atherosclerosis Current Visit: Yes Status: Acute (2) Tinea unguium Current Visit: Yes Status: Acute (3) Non-pressure chronic ulcer of other part of left foot with fat layer exposed Current Visit: Yes Status: Acute (4) Lower extremity edema Current Visit: Yes Status: Acute (5) Venous stasis ulcer Current Visit: Yes Status: Acute Conclusions/Impression: 1. Debridement of nails 1-5 bilateral at bedside 2. MEdihoney to all wounds daily 3. ARterial dopplers bilateral to evaluate for pvd 4. Upon discharge patient to follow up outpatient in the wound healing center
--- NOTE | 2022-08-27 16:43 | RAD REPORT ---
EXAM DESCRIPTION: US - Lower Extremity Arterial Bilat - 08/27/2022 2:23 pm CLINICAL HISTORY: pvd COMPARISON: Lower Extremity Arterial Bilat dated 08/10/2022 TECHNIQUE: Bilateral lower extremity arterial Doppler examination was performed with anamaria cruz FINDINGS: Triphasic waveforms are seen throughout the right lower extremity from the common femoral artery righ t posterior tibial artery as well as along the left superficial femoral artery through left popliteal artery. Left common femoral artery shows biphasic flow. Right dorsalis pedis artery shows biphasic flow. Left posterior tibial and dorsalis pedis arteries show monophasic flow. Scattered moderate atherosclerotic calcifications. IMPRESSION: Mild peripheral vascular disease along the right distal lower extremity vessels, and mil [id number] peripheral vascular disease on the left.
[2022-08-27] MEDS: BACLOFEN 10 MG TAB PO SCH (20:46)
[2022-08-27] MEDS: MIRTAZAPINE 15 MG TAB PO SCH (20:47)
--- NOTE | 2022-08-28 00:23 | PN ---
Date of Progress Note: 08/27/2022 [id number] Progress Note Visit Time Of Service: 1:30 p.m. Subjective: Ms. Bruno is feeling a little better. She did have a visit from the communications equipment operator, Dr. Earlene Meade today. He did cut the toenails and addressed the issue of the left toe infection. His as sessment was generalized arthrosclerosis and tinea unguium. There was a non pressure chronic ulcer of the left foot and lower extremity edema venous stasis ulcer. He ordered a Doppler study of the [facility] extremity arterial system. The study showed mild peripheral vascular disease along the right dista l lower extremity vessels and [id number] for vascular disease on the left side. Otherwise in t erms of the patient's subjective, she did report the ongoing issue across the chest that is not new, has not worsened and has pain across the chest especially with moving the arms as she mobilizes the w heelchair. Review of Systems: Again some pain across the chest, some mild discomfort in the toes. She actually did say when the po diatrist worked on her feet, she asked him "Why couldn't you paint my nails." Otherwise, negative on systems review. Physical Examination: Vital Signs: Blood pressure 105/73, pulse 100, respiratory rate 16, temperature 99.2, and oxygen sat uration 97%. General: Ms. Bruno is sitting in a chair besides the bed. HEENT: She is normocephalic, atraumatic. Chest: She does have anterior chest wall deformity that is chronic. Extremities: Mild myalgias noted with some mild giveaway weakness in the upper extremities and lower extremities because of the pain. Laboratory Studies: White blood cell count yesterday 11.2 and hemoglobin 9.1. Chemistries unremarka ble yesterday and the imaging studies already documented above. Medications: Have not changed compared to yesterday. She is still on antibiotics for left toe infec tion. She is on Eliquis 2.5 mg twice daily. She is on Lopressor 25 mg daily for hypertension, Robax in for muscle relaxation, and Megace for poor appetite. Please note her Levaquin was discontinued ea rlbay today. Current Functional Status: She did ambulate 125 feet with independence using a rolling walker. She did show some improvement with touchdown weightbearing status being maintained. She mobilized wheelc hair 250 feet with upper arms with independence. With occupational therapy, she did independently ea t mashed potatoes, completed toileting hygiene independently. Progress Towards Rehabilitation Goals: She is making excellent progress towards her rehabilitation g oals of becoming independent with upper and lower body dressing, transferring, toileting, mobilizing, ambulating over 250 feet independently and she will work on steps to become independent with at leas t 5 steps. Assessment: Ms. Bruno is a 72-year-old patient in the rehabilitation unit with a right hip fracture . She has good hemostasis of the right hip fracture site. She has comorbidities of hypertension, ch ronic anemia, constipation, poor appetite, hypothyroidism, wound in the left big toe and has had rece nt evaluation and treatments of toe infection by the communications equipment operator. She does also have pain. Plan: 1.Continue physical and occupational therapy 3 hours a day, 5 to 7 days. 2.Continue medications as listed for her comorbid conditions. 3.Continue DVT prophylaxis with Eliquis 2.5 mg twice daily. Comorbidities That Continue To Impact Rehabilitation Process: She does have a left toe infection and antibiotics has been stopped by the communications equipment operator and she will be evaluated with white blood cell count again and she did have a chest x-ray showing no pneumonia. Urinalysis is clear as well. Again she is doing excellent and should be ready for discharge and will likely follow up with Wound Care and po tentially if capable of transporting herself or having someone transport her to continue therapy on outpatient bas is. ADELA/JUSTIN Voice ID: [id number] Report ID: [id number]
[2022-08-28] MEDS: LEVOTHYROXINE SOD 0.1 MG TAB PO SCH (05:05)
[2022-08-28] MEDS: METOPROLOL TAR 25 MG TAB PO SCH ×2 (05:05→17:41)
[2022-08-28 05:57] LABS: Absolute Lymphocytes (CBC) 1.8 K/uL (0.7-4.9); Hematocrit 32.2 % (36.0-45.0); Lymphocytes % 17.8 % (15.3-44.8); MCV 92.1 fL (80-100); MPV 7.5 fL (7.6-11.3)
[2022-08-28 06:16] LABS: Albumin 2.9 g/dL (3.4-5.0); Magnesium 2.4 mg/dL (1.6-2.4); Potassium 3.8 mEq/L (3.5-5.1); Prealbumin 19.7 mg/dL (20-40)
[2022-08-28] MEDS: DULERA 100/5 (MOMETASONE/FORMOTEROL) INHALER IH SCH ×2 (06:32→20:36)
[2022-08-28] MEDS: LIDOCAINE 4% PATCH TOP SCH (06:32)
[2022-08-28] MEDS: IPRATROPIUM BROM 0.5MG/2.5ML NEB SCH ×2 (07:42→20:30)
[2022-08-28] MEDS: ALBUTEROL 2.5 MG/3 ML NEB SOL NEB SCH ×2 (07:42→20:30)
[2022-08-28] MEDS: APIXABAN 2.5 MG TABLET PO SCH ×2 (07:51→20:36)
[2022-08-28] MEDS: FUROSEMIDE 40 MG TABLET PO SCH (07:52)
[2022-08-28] MEDS: DOCUSATE NA 100 MG CAP PO SCH ×2 (07:52→20:00)
[2022-08-28] MEDS: MAGNESIUM OXIDE 400 MG TAB PO SCH ×2 (07:53→20:41)
[2022-08-28] MEDS: predniSONE 10 MG TAB PO SCH (07:53)
[2022-08-28] MEDS: lisinopriL 5 MG TAB PO SCH ×2 (07:53→20:00)
[2022-08-28] MEDS: methocarbamoL 500 MG TAB PO SCH ×2 (07:54→20:42)
[2022-08-28] MEDS: ENSURE CLEAR 200 ML CAN PO SCH ×2 (07:56→20:36)
[2022-08-28] MEDS: ENSURE PUDDING 4 OZ CUP PO SCH ×2 (07:56→20:00)
[2022-08-28] MEDS: MEGESTROL 40 MG TAB PO SCH ×2 (08:00→20:00)
[2022-08-28] MEDS: FE SULF/FA/VIT B COMP & C TAB PO SCH (08:00)
[2022-08-28] MEDS: JUVEN PACKET PO SCH ×2 (08:00→20:00)
--- NOTE | 2022-08-28 09:47 | P.RH.PN ---
Estimated Length of Stay: 15 Expected Discharge Date: 08/29/22 Discharge Disposition Plan: Home Family Support: Yes Senior Care Goal: Mobility, Transfers, Self Care Vital Signs: Last Vital Signs Temp 97.6 F 08/28/22 07:27 Pulse 102 H 08/28/22 07:53 Resp 16 08/28/22 07:54 BP 127/88 08/28/22 07:53 Pulse Ox 100 08/28/22 07:54 Laboratory: Laboratory Last Values WBC 10.30 thou/uL (4.3-10.9) 08/28/22 05:36 RBC 3.50 M/uL (3.86-4.86) L 08/28/22 05:36 Hgb 10.7 g/dL (12.0-15.0) L 08/28/22 05:36 Hct 32.2 % (36.0-45.0) L 08/28/22 05:36 MCV 92.1 fL (80-100) 08/28/22 05:36 MCH 30.6 pg (27.0-35.0) 08/28/22 05:36 MCHC 33.2 g/dL (32.0-36.0) 08/28/22 05:36 RDW 16.4 % (12.1-15.2) H 08/28/22 05:36 Plt Count 324 thou/uL (152-406) 08/28/22 05:36 MPV 7.5 fL (7.6-11.3) L 08/28/22 05:36 Neutrophils % 71.2 % (41.7-73.7) 08/28/22 05:36 Lymphocytes % 17.8 % (15.3-44.8) 08/28/22 05:36 Monocytes % 7.6 % (3.3-12.3) 08/28/22 05:36 Eosinophils % 2.7 % (0-4.4) 08/28/22 05:36 Basophils % 0.7 % (0-1.3) 08/28/22 05:36 Absolute Neutrophils 7.3 K/uL (1.8-8.0) 08/28/22 05:36 Absolute Lymphocytes 1.8 K/uL (0.7-4.9) 08/28/22 05:36 Absolute Monocytes 0.8 K/uL (0.1-1.3) 08/28/22 05:36 Absolute Eosinophils 0.3 K/uL (0-0.5) 08/28/22 05:36 Absolute Basophils 0.1 K/uL (0-0.5) 08/28/22 05:36 Sodium 138 mEq/L (136-145) 08/28/22 05:36 Potassium 3.8 mEq/L (3.5-5.1) 08/28/22 05:36 Chloride 105 mEq/L (98-107) 08/28/22 05:36 Carbon Dioxide 28 mEq/L (21-32) 08/28/22 05:36 Anion Gap 8.8 mEq/L (5.0-15.0) 08/28/22 05:36 BUN 21 mg/dL (7-18) H 08/28/22 05:36 Creatinine 0.81 mg/dL (0.55-1.02) 08/28/22 05:36 Est GFR (CKD-EPI) 77 ml/min (=/>90) L 08/28/22 05:36 Glucose 130 mg/dL (74-106) H 08/28/22 05:36 Calcium 9.3 mg/dL (8.5-10.1) 08/28/22 05:36 Magnesium 2.4 mg/dL (1.6-2.4) 08/28/22 05:36 Albumin 2.9 g/dL (3.4-5.0) L 08/28/22 05:36 Prealbumin 19.7 mg/dL (20-40) L 08/28/22 05:36 Urine Color Light-yellow (Yellow) 08/26/22 05:05 Urine Clarity Turbid (Clear) H 08/26/22 05:05 Urine pH 7.5 (5.0-7.0) H 08/26/22 05:05 Ur Specific [place] 1.015 (1.005-1.030) 08/26/22 05:05 Glucose (UA)(Auto) Negative (Negative) 08/26/22 05:05 Urine Ketones Negative (Negative) 08/26/22 05:05 Urine Blood Negative (Negative) 08/26/22 05:05 Urine Nitrite Negative (Negative) 08/26/22 05:05 Urine Bilirubin Negative (Negative) 08/26/22 05:05 Urine Urobilinogen Normal (Normal) 08/26/22 05:05 Ur Leukocyte Esterase Negative Lavinia/uL (Negative) 08/26/22 05:05 Urine RBC <5 /HPF (None Seen) 08/26/22 05:05 Urine WBC <5 /HPF (<5) 08/26/22 05:05 Ur Squamous Epith Cells <5 /HPF (None Seen) 08/26/22 05:05 U Non-Squamous Epi Cells <5 /HPF (None Seen) 08/15/22 21:00 Amorphous Crystals Trace /HPF (None Seen) 08/26/22 05:05 Urine Bacteria None seen /HPF (<20) 08/26/22 05:05 Hyaline Casts 0-5 /LPF (None Seen) 08/15/22 21:00 Urine Mucus Slight /HPF (None Seen) 08/15/22 21:00 Urine Culture Reflexed Not needed 08/26/22 05:05 Urine Total Protein Negative (Negative) 08/26/22 05:05 SARS-CoV-2 Rap RNA(RT-PCR) Negative (NEGATIVE) 08/24/22 16:45 Weight: 111 lb 8 oz Wound Present: Yes Closed Surgical Incision Present: Yes Negative Pressure Wound Therapy Present: No Physician Update: Her left big toe cellulitis appeared to improve with less drainage and pain. Her right hip fracture site has good hemostasis. Independent with gait 150' with rolling walker. Her WBC has improved to normal. Summary: Patient's care plan and half-way goals have been reviewed and revised as necessary. Please see the Rehabilitation Signature page for all necessary signatures.
[2022-08-28] MEDS: MEDIHONEY 44 ML TOPICAL TUBE TOP SCH ×2 (14:35→19:50)
[2022-08-28] MEDS: MIRTAZAPINE 15 MG TAB PO SCH (20:41)
[2022-08-28] MEDS: MELATONIN 3 MG TABLET PO PRN (20:41)
[2022-08-28] MEDS: BACLOFEN 10 MG TAB PO SCH (20:41)
[2022-08-29] MEDS: METOPROLOL TAR 25 MG TAB PO SCH (05:26)
[2022-08-29] MEDS: LEVOTHYROXINE SOD 0.1 MG TAB PO SCH (05:27)
[2022-08-29] MEDS: APIXABAN 2.5 MG TABLET PO SCH (07:58)
[2022-08-29] MEDS: FUROSEMIDE 40 MG TABLET PO SCH (07:58)
[2022-08-29] MEDS: DULERA 100/5 (MOMETASONE/FORMOTEROL) INHALER IH SCH (07:58)
[2022-08-29] MEDS: LIDOCAINE 4% PATCH TOP SCH (07:58)
[2022-08-29 07:59] VITALS: BP 148/96; TEMP 97
[2022-08-29] MEDS: DOCUSATE NA 100 MG CAP PO SCH (07:59)
[2022-08-29] MEDS: JUVEN PACKET PO SCH (08:00)
[2022-08-29] MEDS: lisinopriL 5 MG TAB PO SCH (08:00)
[2022-08-29] MEDS: predniSONE 10 MG TAB PO SCH (08:00)
[2022-08-29] MEDS: ENSURE PUDDING 4 OZ CUP PO SCH (08:00)
[2022-08-29] MEDS: methocarbamoL 500 MG TAB PO SCH (08:00)
[2022-08-29] MEDS: FE SULF/FA/VIT B COMP & C TAB PO SCH (08:00)
[2022-08-29] MEDS: ENSURE CLEAR 200 ML CAN PO SCH (08:00)
[2022-08-29] MEDS: MAGNESIUM OXIDE 400 MG TAB PO SCH (08:00)
[2022-08-29] MEDS: MEGESTROL 40 MG TAB PO SCH (08:00)
[2022-08-29] MEDS: ALBUTEROL 2.5 MG/3 ML NEB SOL NEB SCH (09:00)
[2022-08-29] MEDS: IPRATROPIUM BROM 0.5MG/2.5ML NEB SCH (09:00)
[2022-08-29] MEDS: MEDIHONEY 44 ML TOPICAL TUBE TOP SCH (09:29)
[2022-08-29 11:05] VITALS: O2SAT 99
== END 2022-08-29 10:30 | disposition home or self-care (01) | DRG 559 ==
LOC: 5TH 10:35
PROVIDERS: ADMIT Internal Medicine; ATTEND Psychiatry & Neurology Neurology with Special Qualifications in Child Neurology
PROC: 0HBRXZZ Excision of Toe Nail, External Approach (ICD-10-PCS; principal; 2022-08-27)
PROC: 0HBRXZZ Excision of Toe Nail, External Approach (ICD-10-PCS; 2022-08-27)
PROC: 0HBRXZZ Excision of Toe Nail, External Approach (ICD-10-PCS; 2022-08-27)
PROC: 0HBRXZZ Excision of Toe Nail, External Approach (ICD-10-PCS; 2022-08-27)
PROC: 0HBRXZZ Excision of Toe Nail, External Approach (ICD-10-PCS; 2022-08-27)
PROC: 0HBRXZZ Excision of Toe Nail, External Approach (ICD-10-PCS; 2022-08-27)
PROC: 0HBRXZZ Excision of Toe Nail, External Approach (ICD-10-PCS; 2022-08-27)
PROC: 0HBRXZZ Excision of Toe Nail, External Approach (ICD-10-PCS; 2022-08-27)
PROC: 0HBRXZZ Excision of Toe Nail, External Approach (ICD-10-PCS; 2022-08-27)
PROC: 0HBRXZZ Excision of Toe Nail, External Approach (ICD-10-PCS; 2022-08-27)
DX: S72.141D Displaced intertrochanteric fracture of right femur, subsequent encounter for closed fracture with routine healing (principal); E43 Unspecified severe protein-calorie malnutrition; L97.529 Non-pressure chronic ulcer of other part of left foot with unspecified severity; B35.1 Tinea unguium; J44.9 Chronic obstructive pulmonary disease, unspecified; I10 Essential (primary) hypertension; F98.8 Other specified behavioral and emotional disorders with onset usually occurring in childhood and adolescence; I73.9 Peripheral vascular disease, unspecified; D64.9 Anemia, unspecified; I49.9 Cardiac arrhythmia, unspecified; R09.02 Hypoxemia; I87.8 Other specified disorders of veins; I70.91 Generalized atherosclerosis; E03.9 Hypothyroidism, unspecified; F17.200 Nicotine dependence, unspecified, uncomplicated; Z20.822 Contact with and (suspected) exposure to COVID-19
CPT/HCPCS: 36415; 71045; 80048; 81001; 82040; 83735; 84134; 85025; 87086; 87088; 93925; 93971; 94640; 97110; 97116; 97161; 97166; 97530; 97542; J2001; J7512; J7613; J7644; Q0162; U0003

== ENCOUNTER 2023-02-19 12:44 | Emergency (ER) | payer OTHER ==
--- OUTSIDE RECORDS SUMMARY | 2023-02-19 12:51 | XMS REPORT | Continuity of Care Document ---
:1950 Author Organization [facility] t Address [address] [facility] [address] [place] [address] Care Team Providers Name Role Phone No, Pcp [facility] Primary Care Physician Unavailable CHAO CARDONAREES Attending Clinician Unavailable Nisa PEREZ, Lele [place] Attending Clinician Unavailable AMANDA DANIELS Attending Clinician Unavailable Vidhya Fuentes MD Attending Clinician Amanda Daniels MD Attending Clinician Dominique Taylor DO Attending Clinician Lacy Barros Attending Clinician LACY BEJARANO Attending Clinician Unavailable Doctor Unassigned, [place] Attending Clinician Unavailable MARIA GUADALUPE HOSKINS Attending Clinician Unavailable Maria Guadalupe Hoskins MD Attending Clinician Quentin Mckeon MD Attending Clinician Martha Conway MD Attending Clinician Mary Kay Felix MD Attending Clinician MARTHA CONWAY Attending Clinician Unavailable Amelia Ferreira Attending Clinician Kashif Strong MD Attending Clinician Cris RAMIREZ, Wendi Braga Attending Clinician [phone] Amelia ZIEGLER Attending Clinician Unavailable Mikala RAMIREZ, Clarence Attending Clinician VIDHYA FUENTES Attending Clinician Unavailable CHAO CARDONA Admitting Clinician Unavailable DOMINIQUE TAYLOR Admitting Clinician Unavailable Dominique Taylor DO Admitting Clinician MARY KAY FELIX Admitting Clinician Unavailable OLE CUEVA Admitting Clinician Unavailable Ligia RAMIREZ, Kashif Admitting Clinician Jeremiah RAMIREZ, Amanda Admitting Clinician Payers Payer Name Policy Type Policy Number Effective Date Expiration Date Juliann ucevas MEDICARE A B [id number] 2014 00:00:00 Problems Condition Condition Condition Status Onset Resolution Last Treating Co mments Source Name Details Category Date Date Treatment Clinician Date Fall, Fall, Disease Active [facility] initial initial 6- [place] Hypoxia Hypoxia Disease Active 2021-[address] [facility] [address] Acute Acute Disease Active [facility] hypox[facility] hypoxemic 12[facility]14 [place] respirator respirator 00:00: Me dical y failure y failure 00 [facility] Pneumothor Pneumothor Disease [facility] [address] Acute Acute Disease Active Univers hypercapni hypercapni 6 it y of c c 00:00: [place] respirator respirator 00 Me dical y failure y failure Bran ch E46 E46 Disease Active Univers Unspecifie Unspecifie 6-07 it y of d severe d severe 00:00: [place] protein-ca protein-ca 00 Me dical marshall marshall Branch malnutriti malnutriti on on Cellulitis Cellulitis Disease Active U nivers of left of left 6-05 ity of lower lower 00:00: [place] extremity extremity 00 Medi santo Branch Allergies, Adverse Reactions, Alerts Allergy Allergy Status Severity Reaction(s) Onset Inactive Treating Comm ents Source Name Type Date Date Clinician Levoflox Propensi Active Hallucinatio Univers acin ty to ns 11-27 ity of adverse 00:00: [place] reaction 00 Medical s Branch LEVOFLOX DRUG Active Hallucinates Un jacinda ACIN INGREDI 11-27 ity of 00:00: [place] 00 Medical Branch NO KNOWN Drug Active Univers ALLERGIE Class ity of S [place] [facility] NO KNOWN Allergy Active [facility] Social History Social Habit Start Date Stop Date Quantity Comments Source History of tobacco Cigarette Smoker University of use [place] [facility] History SDOH University o f Alcohol Std Drinks [place] [facility] History SDOH University o f Alcohol Binge [place] [facility] al [facility] History SDOH Social Unive rsity of Connections [facility] Med ical Together Branch History SDOH Social Unive rsity of Connections [facility] Medical Branch History SDOH Social Unive rsity of Connections [place] [facility] Membership Branch History SDOH Social Unive rsity of Connections [place] [facility] Meetings Branch Cigarettes smoked 2022-11-11 2022-11-11 Univers ity of current (pack per 00:00:00 00:00:00 [facility] edical day) - Reported Branch Cigarette 2022-11-11 2022-11-11 University of pack-years 00:00:00 00:00:00 [place] [facility] History SDOH 2022-11-11 2022-11-11 1 University o f Alcohol Frequency 00:00:00 00:00:00 [place] M edical Branch History SDOH Social 2022-11-11 2022-11-11 5 Unive rsity of Connections Phone 00:00:00 00:00:00 [facility] edical Branch History SDOH Social 2022-11-11 2022-11-11 4 Unive rsity of Connections Living 00:00:00 00:00:00 [place] [facility] History SDOH 2022-11-11 2022-11-11 0 University o f Physical Activity 00:00:00 00:00:00 [place] M edical DPW Branch History SDOH 2022-11-11 2022-11-11 0 University o f Physical Activity 00:00:00 00:00:00 [facility] edical MPS Branch History SDOH 2022-11-11 2022-11-11 5 University o f Financial 00:00:00 00:00:00 [place] [facility] History SDOH Food 2022-11-11 2022-11-11 1 Univers ity of Worry 00:00:00 00:00:00 [place] [facility] History [facility] Food 2022-11-11 2022-11-11 1 Univers ity of Scarcity 00:00:00 00:00:00 [place] [facility] History [facility] 2022-11-11 2022-11-11 2 University o f Transport Med 00:00:00 00:00:00 [place] Medic al Branch History [facility] 2022-11-11 2022-11-11 2 University o f Transport Non-Med 00:00:00 00:00:00 [place] M edical Branch History [facility] 2022-11-11 2022-11-11 2 University o f Housing Unable to 00:00:00 00:00:00 [place] M edical Pay Branch History [facility] 2022-11-11 2022-11-11 1 University o f Housing Places 00:00:00 00:00:00 [facility] santo Lived Branch History [facility] 2022-11-11 2022-11-11 2 University o f Housing Homeless 00:00:00 00:00:00 [facility] dical Last Year Branch Tobacco Comment 2022-11-11 2022-11-11 Less than a pack Uni versity of 00:00:00 00:00:00 a day [facility] Tobacco use and 2022-11-11 2022-11-11 Smokeless Universit y of exposure 00:00:00 00:00:00 tobacco non-user [facility] dical Branch Alcohol intake 2022-11-11 2022-11-11 Ex-drinker [facility] 00:00:00 00:00:00 (finding) [facility] Exposure to 2022-09-30 2022-10-10 Not sure [facility] SARS-CoV-2 (event) 00:00:00 10:35:00 [facility] Sex Assigned At [address] [facility] 00:00:00 00:[facility]00 [facility] Smoking Status Start Date Stop Date Source Smokes tobacco daily 2022-11-11 00:00:00 Univers ity of [facility] Medications Ordered Filled Start Stop Current Ordering Indication Dosage Frequency Signature Comments Components Source Medication Medication Date Date Medication? Clinician (SIG) Name Name famotidine 2023-0 Yes 20mg 20 mg, Unive rs (PEPCID AC) 6-10 Oral, ity of tablet 20 14:00: DAILY, [place] mg 00 First dose Medical on Thu Branch 11/15/22 at 0900, Until Discontinu ed, Routine predniSONE Yes [id number] 20mg Take 1 Univers 20 mg 6-10 tablet by ity of tablet 00:00: mouth in [place] 00 the Medical morning. Branch predniSONE 0 Yes [id number] 20mg Take 1 Univers 20 mg 6-10 tablet by ity of tablet 00:00: mouth in [place] 00 the Medical morning. Branch doxycycline 0 2022- No 100mg 100 mg, U nivers hyclate 11-14 Oral, ity of (Vibramycin 23:00: 22:59 Q12HA2, 8 [place] ) capsule 00 :00 doses, Medical 100 mg First dose Branch on Thu11/14/22 at 1800, Last dose on Thu11/18/22 at 0600, CEM
Re ason for Anti-Infec tive: Documented Infection< br>Documen cristhian Infection Site: Wound
D uration of Therapy: 7 days levothyroxi 2022-0 2022- No 75ug Take 1 Uni vers ne 75 mcg 11-14 tablet by ity of tablet 15:57: 00:00 mouth [place] 24 :00 every Medical morning. Branch aspirin 81 2022- No Take by Uni vers mg Cap 11-14 mouth. ity of 15:57: 00:00 [place] 23 :00 Medical Branch predniSONE Yes 40mg 40 mg, Unive rs (DELTASONE) 11-14 Oral, ity of tablet 40 14:00: DAILY, [place] mg 00 First dose Medical on Thu Branch 11/14/22 at 0900, Until Discontinu ed, Routine levothyroxi Yes 75ug 75 mcg, Uni vers ne 11-14 Oral, ity of (SYNTHROID) 11:00: QAM-0600, [place] tablet 75 00 First dose Medi santo mcg on Thu Branch 11/14/22 at 0600, Until Discontinu ed, Routine FENTanyl PF Yes 50ug 50 mcg, Uni vers (SUBLIMAZE 6-09 Slow IV ity of (PF)) 01:18: Push, [place] injection 37 Q4HPRN, Medical 50 mcg Starting Branch on Marivel 11/13/22 at 2018, Until Discontinu ed, Routine, Pain (scale 7-10) acidophilus 0 Yes [id number] 1g Take 1 Univers 100 million 6-09 tablet by ity of cell tablet 00:00: mouth [place] 00 the Medical morning Branch and 1 tablet in the evening. albuterol 2022-0 Yes [id number] 2{puff} Inhale 2 Univers 90 6-09 Puffs ity of mcg/actuati 00:00: every 4 Juni as on inhaler 00 (four) Medical hours as Branch needed for Wheezing or Shortness of Breath. furosemide 0 Yes [id number] 20mg Take 1 Univers 20 mg 6- tablet by ity of tablet 00:00: mouth in [place] 00 the Medical morning. Branch levothyroxi Yes [id number] 75ug Take 1 Univers ne 75 mcg 6- tablet by ity o f tablet 00:00: mouth [place] 00 every Medical morning. Branch levalbutero Yes [id number] 1.25mg Inhale Univers l 1.25 mg/3 6-09 1.25 mg ity o f mL 00:00: every 4 [place] nebulizer 00 (four) Medical solution hours as Branch needed for Wheezing or Shortness of Breath. gabapentin 0 Yes [id number] 100mg Take 1 Univers 100 mg 6- capsule by ity of capsule 00:00: mouth in [place] 00 the Medical morning Branch and 1 capsule at noon and 1 capsule in the evening. aspirin 81 2022-0 Yes [id number] 81mg Take 1 Univers mg chewable 6-09 tablet by ity of tablet 00:00: mouth in [place] 00 the Medical morning. Branch KCL 10 mEq 0 Yes [id number] 10meq Take 1 Univers tablet 6-09 tablet by ity of 00:00: mouth in [place] 00 the Medical morning. Branch collagenase 0 Yes [id number] Apply to Univers 250 6- affected ity of unit/gram 00:00: area(s) [place] ointment 00 daily. Medical Lower legs Branch with wet-to-dry dressing daily acidophilus 2022-0 Yes [id number] 1g Take 1 Univers 100 million 6-09 tablet by ity of cell tablet 00:00: mouth in [place] 00 the Medical morning Branch and 1 tablet in the evening. albuterol Yes [id number] 2{puff} Inhale 2 Univers 90 6-09 Puffs ity of mcg/actuati 00:00: every 4 [place] on inhaler 00 (four) Medical hours as Branch needed for Wheezing or Shortness of Breath. furosemide 0 Yes [id number] 20mg Take 1 Univers 20 mg 6- tablet by ity of tablet 00:00: mouth in [place] 00 the Medical morning. Branch levothyroxi Yes [id number] 75ug Take 1 Univers ne 75 mcg 6- tablet by ity o f tablet 00:00: mouth [place] 00 every Medical morning. Branch levalbutero Yes [id number] 1.25mg Inhale Univers l 1.25 mg/3 6-09 1.25 mg ity o f mL 00:00: every 4 [place] nebulizer 00 (four) Medical solution hours as Branch needed for Wheezing or Shortness of Breath. gabapentin 0 Yes [id number] 100mg Take 1 Univers 100 mg 6- capsule by ity of capsule 00:00: mouth in [place] 00 the Medical morning Branch and 1 capsule at noon and 1 capsule in the evening. aspirin 81 0 Yes [id number] 81mg Take 1 Univers mg chewable 6- tablet by ity of tablet 00:00: mouth in [place] 00 the Medical morning. Branch KCL 10 mEq 0 Yes [id number] 10meq Take 1 Univers tablet 6-09 tablet by ity of 00:00: mouth in [place] 00 the Medical morning. Branch collagenase 0 Yes [id number] Apply to Univers 250 - affected ity of unit/gram 00:00: area(s) [place] ointment 00 daily. Medical Lower legs Branch with wet-to-dry dressing daily doxycycline 2022-0 2022- No [id number] 100mg Take 1 Univers hyclate 100 11-14 06-20 capsule by i ty of mg capsule 00:00: 04:59 mouth [place] 00 :00 every 12 Medical (twelve) Branch hours for 10 days. doxycycline 2022-0 2022- No [id number] 100mg Take 1 Univers hyclate 100 11-14 capsule by i ty of mg capsule 00:00: 04:59 mouth [place] 00 :00 every 12 Medical (twelve) Branch hours for 10 days. gabapentin Yes 100mg 100 mg, Uni vers (NEURONTIN) 11-13 Oral, TID, it y of 300 mg/6 mL 19:45: First dose [place] oral 00 on Thu Medical solution 11/13/22 at Branch 100 mg 1445, Until Discontinu ed, Routine doxycycline 2022- No 100mg 100 mg, IV Univers (VIBRAMYCIN 11-13 Piggyback, i ty of ) 100 mg in 18:00: 15:23 Q12H ABX, [place] NaCl 0.9% 00 :55 10 doses, Medic al (NS) 100 mL First dose Br anch MINI-BAG on Thu11/13/22 at 1300, Last dose on Thu11/18/22 at 0100, Administer over 60 Minutes, 100 mL
Reas on for Anti-Infec tive: Documented Infection& lt;br>Docu mented Infection Site: Wound
D uration of Therapy: Other (see Comments) levothyroxi 2022- No 50ug 50 mcg, Un jacinda ne 11-13 Slow IV ity of (SYNTHROID) 14:00: 17:48 [place], [place] injection 00 :01 DAILY, Medical 50 mcg First dose Branch (after last reorder) on Marivel 11/13/22 at 0900, Until Discontinu ed, Routine glucagon Yes 1mg 1 mg, Univers (GLUCAGEN 11-13 Intramuscu ity of DIAGNOSTIC 04:51: [place], PRN, [place] KIT) 06 Starting Medical injection 1 on Thu Branch mg 11/12/22 at 2351, Until Discontinu ed, CEM, Blood Glucose < or = 70 mg/dL and patient is NPO, unable to swallow or has mental changes. dextrose 50 Yes 25mL 25 mL, Univ ers % in water 11-13 Slow IV ity of (D50W) 04:51: Push, PRN, [place] injection 06 Starting Medica l 25 mL on Thu Branch 11/12/22 at 2351, Until Discontinu ed, CEM, Blood Glucose < or = 70 mg/dL and patient is NPO, unable to swallow or has mental status changes. levothyroxi No 100ug 100 mcg, Univers ne 11-12 Slow IV ity of (SYNTHROID) 23:15: 00:19 [place], [place] injection 00 :00 ONCE, 1 Medical 100 mcg dose, On Branch Thu11/12/22 at 1815, Routine furosemide Yes 20mg 20 mg, Unive rs (LASIX) 11-12 Slow IV ity of injection 22:30: Push, [place] 20 mg 00 DAILY, Medical First dose Branch on Thu11/12/22 at 1730, Until Discontinu ed, Routine metoclopram No 10mg 10 mg, Uni vers olaf HCl 11-12 Slow IV ity of (REGLAN) 20:45: 21:39 Push, [place] injection 00 :00 ONCE, 1 Medical 10 mg dose, On Branch Thu11/12/22 at 1545, Routine fentaNYL PF No 25ug/h 25-200 U nivers (SUBLIMAZE) 11-1208 mcg/hr ity o f STD 2,500 19:54: 17:25 (2.5-20 [place] mcg in NaCl 18 :20 mL/hr), IV Me dical 0.9% (NS) Infusion, Branc h 250 mL TITRATE, infusion RASS -1 to RTU -2, Starting on Thu11/12/22 at 1454
In itiate infusion at 25 mcg/hr. Titrate by 25 mcg/hr every 1 minute to 15 minutes to identified goal pain and/or sedation scores. Maximum dose = 200 mcg/hr. If goal not maintained at maximum allowed dose, contact prescriber .
famotidine No 20mg 20 mg, Univ ers (PEPCID 11-12 Slow IV ity of (PF)) 15:30: 15:56 Push, [place] injection 00 :24 Q24H, Medical 20 mg First dose Branch on Thu11/12/22 at 1030, Until Discontinu ed, Routine lidocaine 2022- No 5mL 5 mL, Univer s 1% (PF) 6-07 06-07 Subcutaneo ity o f (XYLOCAINE) 14:15: 15:15 us, ONCE, [place] injection 5 00 :00 1 dose, On Me dical mL Thu11/12/22 Branch at 0915, Routine NaCl 0.9% Yes 10mL 10 mL, Univer s (NS) 11-12 Slow IV ity of injection 14:04: Push, PRN, [place] 10 mL 33 Starting Medical on Thu11/12/22 at 0904, Until Discontinu ed, Routine, line maintenanc e FENTanyl PF 2022- No 50ug 50 mcg, Un jacinda (SUBLIMAZE 11-12 Slow IV ity o f (PF)) 01:30: 01:01 Push, [place] injection 00 :00 ONCE, 1 Medical 50 mcg dose, On Branch Thu11/11/22 at 2030, Routine NORepinephr 2022- No .05ug/k 0.05-0.5 Univers ine 4 mg in 11-12-08 g/min mcg/kg/min ity of 0.9% NaCl 01:29: 01:28 ?49 kg [place] 250 mL 21 :21 (9.1875-91 Medical infusion .875 Branch RTU mL/hr, rounded to 9.19-91.88 mL/hr), IV Infusion, TITRATE, MAP Goal > or = 65 mmHg, Starting on Thu11/11/22 at 2029, For 24 hours
I nitiate titration at 0.05 mcg/kg/min . &nb sp;Increas e by 0.01 mcg/kg/min every 30 seconds to 5 minutes as needed to reach and maintain goal blood pressure.& nbsp;&nbsp ;Maximum dose = 0.5 mcg/kg/min . &nb sp;If goal not maintained at maximum allowed dose, contact prescriber . &am p;nbsp;Adm inister only one peripheral intravenou s vasopresso r at a time.
ipratropium Yes .5mg 0.5 mg, Uni vers (ATROVENT) 11-12 Inhalation ity of 0.02 % 01:00: , TID, [place] nebulizer 00 First dose Medi santo solution on e Branch 0.5 mg 11/11/22 at 1999, Until Discontinu ed, Routine levalbutero Yes 1.25mg 1.25 mg, Univers l (XOPENEX) 11-12 Inhalation it y of nebulizer 01:00: , TID, [place] solution 00 First dose Medic al 1.25 mg on e Branch 11/11/22 at 1999, Until Discontinu ed, Routine chlorhexidi Yes 15mL 15 mL, Univ ers ne 11-12 Oral ity of (PERIDEX) 01:00: ([place] 0.12 % 00 Spit Out), Medical mouthwash BID, First Bran ch 15 mL dose on Thu11/11/22 at 1999, Until Discontinu ed, Routine methylPREDN 2022- No 40mg 40 mg, Uni vers ISolone sod 11-1208 Intravenou i ty of succ 01:00: 14:10 s, Q12H, [place] (SOLU-MEDRO 00 :08 First dose Me dical L (PF)) on Tue Branch injection 11/11/22 at 40 mg 1999, Until Discontinu ed, 1 mL propofoL IV 2022- No 5ug/kg/ 5-50 Un jacinda infusion 11-11 min mcg/kg/min ity of 23:56: 18:54 ?49 kg [place] 11 :15 (1.47-14.7 Medical mL/hr), IV Branch Infusion, TITRATE, Sedation-R ASS score (0 to -1), Starting on Thu11/11/22 at 1856
In itiate infusion at 5 mcg/kg/min and titrate by 5 mcg/kg/min every 30 seconds to 10 minutes to goal sedation score. Maximum dose = 50 mcg/kg/min . If goal not maintained at maximum allowed dose, contact prescriber . &nbs p;Tubing and unused portions of vials should be discarded after 12 hours.
naloxone 2022- No 2mg 2 mg, Slow Un jacinda (NARCAN) 11-11 IV Push, ity of injection 2 23:00: 23:00 ONCE, 1 [place] mg 00 :00 dose, On Medical 11/11/22 Branch at 1800, Routine naloxone 2022- No .4mg 0.4 mg, Unive rs (NARCAN) 11-11 Slow IV ity of injection 22:45: 22:45 Push, [place] 0.4 mg 00 :00 ONCE, 1 Medical dose, On Branch 11/11/22 at 1745, Routine enoxaparin Yes 30mg 30 mg, Unive rs (LOVENOX) 11-11 Subcutaneo ity of injection 22:00: us, DAILY, [place] 30 mg 00 First dose Medical on [facility] 11/11/22 at 1700, Until Discontinu ed, Routine naloxone 2022- No .4mg 0.4 mg, Unive rs (NARCAN) 11-11 Slow IV ity of injection 17:30: 16:42 Push, [place] 0.4 mg 00 :00 ONCE, 1 Medical dose, On Branch 11/11/22 at 1230, Routine ceFEPIme 2022- No 1000mg 1,000 mg, U nivers (MAXIPIME) 11-11 IV ity of 1,000 mg in 16:00: 15:59 Piggyback, [place] NaCl 0.9% 00 :00 Q12H ABX, Medic al (NS) 100 mL 10 doses, [facility] MINI-BAG First dose on Thu11/11/22 at 1100, Last dose on [facility] 11/15/22 at 2300, Administer over 4 Hours, 100 mL
Reas on for Anti-Infec tive: Empiric Therapy for Suspected Infection< br>Empiric Therapy Site: Skin / Soft tissue
Duration of therapy: 5 days vancomycin 2022- No 500mg 500 mg, IV Univers (VANCOCIN) 11-11 Piggyback, it y of 500 mg in 12:30: 00:30 Q12H ABX, [place] NaCl 0.9% 00 :07 First dose Medi santo (NS) [address] [facility] MINI-BAG 11/11/22 at 0730, Until Discontinu ed, Administer over 30 Minutes, 100 mL
Reas on for Anti-Infec tive: Empiric Therapy for Suspected Infection< br>Empiric Therapy Site: Skin / Soft tissue
Duration of therapy: 5 days acetaminoph Yes 650mg 650 mg, Un jacinda en 11-11 Oral, ity of (TYLENOL) 11:51: Q6HPRN, [place] tablet 650 35 Starting Medic al mg on Thu11/11/22 at 0651, Until Discontinu ed, Routine, Pain (scale 1-3) HYDROcodone 2022- No 1{tbl} 1 tablet, Univers -acetaminop 11-11 Oral, ONCE i ty of hen (NORCO) 11:45: 10:53 NOW, 1 Juni as 10-325 mg 00 :00 dose, On Medica l tablet Thu11/11/22 Branc h tablet at 0645, Routine FENTanyl PF 2022- No 25ug 25 mcg, Un jacinda (SUBLIMAZE 11-11 Slow IV ity o f (PF)) 10:15: 10:12 Push, [place] injection 00 :00 ONCE, 1 Medical 25 mcg dose, On Branch Thu11/11/22 at 0515, STAT potassium Yes TAKE 1 Univer s chloride 10 3-31 CAPSULE ity o f mEq CR 00:00: (10 MEQ) [place] capsule 00 BY MOUTH 1 Medica l TIMES PER DAY WITH FOOD potassium 0 Yes TAKE 1 Univer s chloride 10 3-31 CAPSULE ity o f mEq CR 00:00: (10 MEQ) [place] capsule 00 BY MOUTH 1 Medica l TIMES PER DAY WITH FOOD potassium 2022-0 Yes TAKE 1 Univer s chloride 10 3-31 CAPSULE ity o f mEq CR 00:00: (10 MEQ) [place] capsule 00 BY MOUTH 1 Medica l TIMES PER Branch DAY WITH FOOD potassium 2022-0 Yes TAKE 1 Univer s chloride 10 3-31 CAPSULE ity o f mEq CR 00:00: (10 MEQ) [place] capsule 00 BY MOUTH 1 Medica l TIMES PER Branch DAY WITH FOOD potassium 2022-0 Yes TAKE 1 Univer s chloride 10 3-31 CAPSULE ity o f mEq CR 00:00: (10 MEQ) [place] capsule 00 BY MOUTH 1 Medica l TIMES PER Branch DAY WITH FOOD potassium 0 Yes TAKE 1 Univer s chloride 10 3-31 CAPSULE ity o f mEq CR 00:00: (10 MEQ) [place] capsule 00 BY MOUTH 1 Medica l TIMES PER Branch DAY WITH FOOD potassium 3-0 Yes TAKE 1 Univer s chloride 10 3-31 CAPSULE ity o f mEq CR 00:00: (10 MEQ) [place] capsule 00 BY MOUTH 1 Medica l TIMES PER Branch DAY WITH FOOD potassium 3-0 Yes TAKE 1 Univer s chloride 10 3-31 CAPSULE ity o f mEq CR 00:00: (10 MEQ) [place] capsule 00 BY MOUTH 1 Medica l TIMES PER Branch DAY WITH FOOD potassium 3-0 2023- No TAKE 1 Unive rs chloride 10 3-31 06-09 CAPSULE ity of mEq CR 00:00: 00:00 (10 MEQ) [place] capsule 00 :00 BY MOUTH 1 Medica l TIMES PER Branch DAY WITH FOOD HEMOCYTE-PL 3-0 Yes TAKE 1 Univ ers US 106 mg 3-23 CAPSULE BY ity of iron- 1 mg 00:00: MOUTH [place] Cap 00 EVERY DAY Medical WITH Branch BREAKFAST HEMOCYTE-PL 2023-0 Yes TAKE 1 Univ ers US 106 mg 3-23 CAPSULE BY ity of iron- 1 mg 00:00: MOUTH [place] Cap 00 EVERY DAY Medical WITH Branch BREAKFAST HEMOCYTE-PL 2023-0 Yes TAKE 1 Univ ers US 106 mg 3-23 CAPSULE BY ity of iron- 1 mg 00:00: MOUTH [place] Cap 00 EVERY DAY Medical WITH Branch BREAKFAST HEMOCYTE-PL 2023-0 Yes TAKE 1 Univ ers US 106 mg 3-23 CAPSULE BY ity of iron- 1 mg 00:00: MOUTH [place] Cap 00 EVERY DAY Medical WITH Branch BREAKFAST HEMOCYTE-PL 2023-0 Yes TAKE 1 Univ ers [place] 106 mg 3-23 CAPSULE BY ity of iron- 1 mg 00:00: MOUTH [place] Cap 00 EVERY DAY Medical WITH Branch BREAKFAST HEMOCYTE-PL 2023-0 Yes TAKE 1 Univ ers [place] 106 mg 3-23 CAPSULE BY ity of iron- 1 mg 00:00: MOUTH [place] Cap 00 EVERY DAY Medical WITH Branch BREAKFAST HEMOCYTE-PL 2023-0 Yes TAKE 1 Univ ers [place] 106 mg 3-23 CAPSULE BY ity of iron- 1 mg 00:00: MOUTH [place] Cap 00 EVERY DAY Medical WITH Branch BREAKFAST HEMOCYTE-PL 2023-0 Yes TAKE 1 Univ ers [place] 106 mg 3-23 CAPSULE BY ity of iron- 1 mg 00:00: MOUTH [place] Cap 00 EVERY DAY Medical WITH Branch BREAKFAST HEMOCYTE-PL 3-0 3- No TAKE 1 Uni vers [place] 106 mg 3-23 -09 CAPSULE BY ity of iron- 1 mg 00:00: 00:00 MOUTH [place] Cap 00 :00 EVERY DAY Medical WITH Branch BREAKFAST lisinopriL 3-0 Yes 10mg Take 1 Unive rs 10 mg 3-01 tablet by ity of tablet 00:00: mouth in [place] 00 the Medical morning. Branch metoprolol 2023-0 Yes 50mg Take 1 Unive rs succinate 3-01 tablet by ity o f XL 50 mg 24 00:00: mouth in [place] hr tablet 00 the Medical morning. Branch lisinopriL 2023-0 Yes 10mg Take 1 Unive rs 10 mg 3-01 tablet by ity of tablet 00:00: mouth in [place] 00 the Medical morning. Branch metoprolol 2023-0 Yes 50mg Take 1 Unive rs succinate 3-01 tablet by ity o f XL 50 mg 24 00:00: mouth in [place] hr tablet 00 the Medical morning. Branch lisinopriL 2023-0 Yes 10mg Take 1 Unive rs 10 mg 3-01 tablet by ity of tablet 00:00: mouth in [place] 00 the Medical morning. Branch metoprolol 2023-0 Yes 50mg Take 1 Unive rs succinate 3-01 tablet by ity o f XL 50 mg 24 00:00: mouth in [place] hr tablet 00 the Medical morning. Branch lisinopriL 2023-0 Yes 10mg Take 1 Unive rs 10 mg 3-01 tablet by ity of tablet 00:00: mouth in [place] 00 the Medical morning. Branch metoprolol 2023-0 Yes 50mg Take 1 Unive rs succinate 3-01 tablet by ity o f XL 50 mg 24 00:00: mouth in [place] hr tablet 00 the Medical morning. Branch lisinopriL 2023-0 Yes 10mg Take 1 Unive rs 10 mg 3-01 tablet by ity of tablet 00:00: mouth in [place] 00 the Medical morning. Branch metoprolol 2023-0 Yes 50mg Take 1 Unive rs succinate 3-01 tablet by ity o f XL 50 mg 24 00:00: mouth in [place] hr tablet 00 the Medical morning. Branch lisinopriL 2023-0 Yes 10mg Take 1 Unive rs 10 mg 3-01 tablet by ity of tablet 00:00: mouth in [place] 00 the Medical morning. Branch metoprolol 2023-0 Yes 50mg Take 1 Unive rs succinate 3-01 tablet by ity o f XL 50 mg 24 00:00: mouth in [place] hr tablet 00 the Medical morning. Branch lisinopriL 2023-0 Yes 10mg Take 1 Unive rs 10 mg 3-01 tablet by ity of tablet 00:00: mouth in [place] 00 the Medical morning. Branch metoprolol 2023-0 Yes 50mg Take 1 Unive rs succinate 3-01 tablet by ity o f XL 50 mg 24 00:00: mouth in [place] hr tablet 00 the Medical morning. Branch lisinopriL 2023-0 Yes 10mg Take 1 Unive rs 10 mg 3-01 tablet by ity of tablet 00:00: mouth in [place] 00 the Medical morning. Branch metoprolol 3-0 Yes 50mg Take 1 Unive rs succinate 3-01 tablet by ity o f XL 50 mg 24 00:00: mouth in [place] hr tablet 00 the Medical morning. Branch lisinopriL 3-0 3- No 10mg Take 1 Univ ers 10 mg 3-01 06-09 tablet by ity of tablet 00:00: 00:00 mouth in [place] 00 :00 the Medical morning. Branch metoprolol 3-0 3- No 50mg Take 1 Univ ers succinate 3-01 06-09 tablet by ity of XL 50 mg 24 00:00: 00:00 mouth in [place] hr tablet 00 :00 the Medical morning. Branch aspirin 81 2021-06- No 81mg QD Take [...] morning on an empty stomach. aspirin 81 2021-2022- No 81mg QD Take [address] [facility] [...] Center tablet daily for 30 days. lisinopriL 2021-06 No 10mg QD Take 1 [...] mouth Center daily for 10 days. predniSONE 2021-06 No 20mg QD Take [...] Q.5D Take [address] [facility] (PULMICORT) 0-29 04- (0.25 mg [place] es 0.25 mg/2 00:00: 23:59 total) by Me dical mL 00 :00 nebulizati Center nebulizer on 2 (two) solution times daily for 30 days. ipratropium 2021-06 No 3mL Take [address] [facility] -albuteroL 004-28 by [place] (DUO-NEB) 00:00: 23:59 nebulizati M edical 0.5 mg-3 00 :00 on every 6 Cente r mg(2.5 mg (six) base)/3 mL hours for nebulizer 30 days. solution atorvastati 2021-06 No 80mg QD Take [address] [facility] n (LIPITOR) 0-29 04- tablet (80 L ukes 80 MG 00:00: 23:59 mg total) Medica l tablet 00 :00 by mouth Center nightly for 30 days. budesonide 2021-06 No .25mg Q.5D Take [address] [facility] (PULMICORT) 0-22 -21 (0.25 mg [place] es 0.25 mg/2 00:00: 23:59 total) by Me dical mL 00 :00 nebulizati Center nebulizer on 2 (two) solution times daily for 30 days. ipratropium 2021-06- No 3mL Take [address] [facility] -albuteroL 0-22 11-21 by [facility] (DUO-NEB) 00:00: 23:59 nebulizati M edical 0.5 [...] solution on 2 (two) times daily. budesonide 2020-2021- No .5mg Q.5D Take [address] [facility] (PULMICORT) 7-14 07-14 (0.5 mg [facility] 0.5 mg/2 mL 00:00: 23:59 total) by Medical nebulizer 00 :00 nebulizati Cent er solution on 2 (two) times daily. budesonide 2020-2021- No .5mg Q.5D Take [address] [facility] (PULMICORT) 7-14 07-14 (0.5 mg [facility] 0.5 mg/2 mL 00:00: 23:59 total) by Medical nebulizer 00 :00 nebulizati Cent er solution on 2 (two) times daily. ipratropium 2020-0 2021- No 3mL Take [address] [facility] -albuteroL 12-19 by [facility] (W-locate) 00:00: 23:59 nebulizati M edical 0.5 mg-3 00 :00 on every 4 Cente r mg(2.5 mg (four) base)/3 mL hours for nebulizer 360 days. solution ipratropium 2020-0 2021- No 3mL Take [address] [facility] -albuteroL 12-19 by [facility] (W-locate) 00:00: 23:59 nebulizati M edical 0.5 mg-3 00 :00 on every 4 Cente r mg(2.5 mg (four) base)/3 mL hours for nebulizer 360 days. solution ipratropium 2020-0 2021- No 3mL Take [address] [facility] -albuteroL 12-19 by [facility] (W-locate) 00:00: 23:59 nebulizati M edical 0.5 mg-3 00 :00 on every 4 Cente r mg(2.5 mg (four) base)/3 mL hours for nebulizer 360 days. solution levothyroxi 0 Yes 75ug Take 75 Uni vers ne 75 mcg 6-30 mcg by ity of tablet 01:00: mouth [place] 27 every Medical morning. Branch levothyroxi 0 Yes 75ug Take 75 Uni vers ne 75 mcg 6-30 mcg by ity of tablet 01:00: mouth [place] 27 every Medical morning. Branch vitamin 2020-0 Yes [id number] 1000ug Take 1 U nivers B-12 1,000 6-30 tablet by ity of mcg tablet 00:00: mouth [place] 00 daily. Medical Branch vitamin 2020-0 Yes [id number] 1000ug Take 1 U nivers B-12 1,000 6-30 tablet by ity of mcg tablet 00:00: mouth [place] 00 daily. [facility] Branch vitamin 2020-0 Yes [id number] 1000ug Take 1 U nivers B-12 1,000 6-30 tablet by ity of mcg tablet 00:00: mouth [place] 00 daily. Medical Branch vitamin 2020-0 Yes [id number] 1000ug Take 1 U nivers B-12 1,000 6-30 tablet by ity of mcg tablet 00:00: mouth [place] 00 daily. [facility] Branch vitamin 2021-0 Yes [id number] 1000ug Take 1 U nivers B-12 1,000 6-30 tablet by ity of mcg tablet 00:00: mouth [place] 00 daily. [facility] Branch vitamin 2021-0 Yes [id number] 1000ug Take 1 U nivers B-12 1,000 6-30 tablet by ity of mcg tablet 00:00: mouth [place] 00 daily. [facility] Branch vitamin 2021-0 Yes [id number] 1000ug Take 1 U nivers B-12 1,000 6-30 tablet by ity of mcg tablet 00:00: mouth [place] 00 daily. [facility] vitamin 2021-0 Yes [id number] 1000ug Take 1 U nivers B-12 1,000 6-30 tablet by ity of mcg tablet 00:00: mouth [place] 00 daily. [facility] vitamin 2021-0 Yes [id number] 1000ug Take 1 U nivers B-12 1,000 6-30 tablet by ity of mcg tablet 00:00: mouth [place] 00 daily. [facility] vitamin 2021-0 Yes [id number] 1000ug Take 1 U nivers B-12 1,000 6-30 tablet by ity of mcg tablet 00:00: mouth [place] 00 daily. [facility] vitamin 2021-0 Yes [id number] 1000ug Take 1 U nivers B-12 1,000 6-30 tablet by ity of mcg tablet 00:00: mouth [place] 00 daily. [facility] Branch vitamin 2021-0 Yes [id number] 1000ug Take 1 U nivers B-12 1,000 6-30 tablet by ity of mcg tablet 00:00: mouth [place] 00 daily. [facility] Branch vitamin 2021-0 Yes [id number] 1000ug Take 1 U nivers B-12 1,000 6-30 tablet by ity of mcg tablet 00:00: mouth [place] 00 daily. [facility] vitamin 2021-0 Yes [id number] 1000ug Take 1 U nivers B-12 1,000 6-30 tablet by ity of mcg tablet 00:00: mouth [place] 00 daily. [facility] vitamin 2021-0 2023- No [id number] 1000ug Take 1 Univers B-12 1,000 6-30 06-09 tablet by ity of mcg tablet 00:00: 00:00 mouth [place] 00 :00 daily. Medical Branch levothyroxi 2020-0 Yes 75ug Take 75 Uni vers ne 75 mcg 6-29 mcg by ity of tablet 20:00: mouth [place] 27 every Medical morning. Branch levothyroxi 2020-0 Yes 75ug Take 75 Uni vers ne 75 mcg 6-29 mcg by ity of tablet 20:00: mouth [place] 27 every Medical morning. Branch levothyroxi 0 Yes 75ug Take 75 Uni vers ne 75 mcg 6-29 mcg by ity of tablet 20:00: mouth [place] 27 every Medical morning. Branch levothyroxi 0 Yes 75ug Take 75 Uni vers ne 75 mcg 6-29 mcg by ity of tablet 20:00: mouth [place] 27 every Medical morning. Branch levothyroxi 0 Yes 75ug Take 75 Uni vers ne 75 mcg 6-29 mcg by ity of tablet 20:00: mouth [place] 27 every Medical morning. Branch levothyroxi 2020-0 Yes 75ug Take 75 Uni vers ne 75 mcg 6-29 mcg by ity of tablet 20:00: mouth [place] 27 every Medical morning. Branch levothyroxi 2020-0 Yes 75ug Take 75 Uni vers ne 75 mcg 6-29 mcg by ity of tablet 20:00: mouth [place] 27 every Medical morning. Branch levothyroxi 2020-0 Yes 75ug Take 75 Uni vers ne 75 mcg 6-29 mcg by ity of tablet 20:00: mouth [place] 27 every Medical morning. Branch levothyroxi 2020-0 Yes 75ug Take 75 Uni vers ne 75 mcg 6-29 mcg by ity of tablet 20:00: mouth [place] 27 every Medical morning. Branch levothyroxi 2020-0 Yes 75ug Take 75 Uni vers ne 75 mcg 6-29 mcg by ity of tablet 20:00: mouth [place] 27 every Medical morning. Branch levothyroxi 2020-0 Yes 75ug Take 75 Uni vers ne 75 mcg 6-29 mcg by ity of tablet 20:00: mouth [place] 27 every Medical morning. Branch levothyroxi 2020-0 Yes 75ug Take 75 Uni vers ne 75 mcg 6-29 mcg by ity of tablet 20:00: mouth [place] 27 every Medical morning. Branch vitamin 2021-0 Yes 1000ug 1,000 mcg, Un jacinda B-12 6-29 Oral, ity of (CYANOCOBAL 14:00: DAILY[place] 00 First dose Medical tablet on Thu Branch 1,000 mcg 12/04/20 at 0900, Until Discontinu ed, Routine albuterol Yes [id number] 2{puff} Inhale 2 Univers 90 6-29 Puffs ity of mcg/actuati 00:00: every 6 Jun[place] on inhaler 00 (six) Medical hours as Branch needed for Wheezing or Shortness of Breath. albuterol Yes [id number] 2{puff} Inhale 2 Univers 90 6-29 Puffs ity of mcg/actuati 00:00: every 6 [place] on inhaler 00 (six) Medical hours as Branch needed for Wheezing or Shortness of Breath. albuterol Yes [id number] 2{puff} Inhale 2 Univers 90 6-29 Puffs ity of mcg/actuati 00:00: every 6 [place] on inhaler 00 (six) Medical hours as Branch needed for Wheezing or Shortness of Breath. albuterol Yes [id number] 2{puff} Inhale 2 Univers 90 6-29 Puffs ity of mcg/actuati 00:00: every 6 [place] on inhaler 00 (six) Medical hours as Branch needed for Wheezing or Shortness of Breath. albuterol Yes [id number] 2{puff} Inhale 2 Univers 90 6-29 Puffs ity of mcg/actuati 00:00: every 6 [place] on inhaler 00 (six) Medical hours as Branch needed for Wheezing or Shortness of Breath. albuterol Yes [id number] 2{puff} Inhale 2 Univers 90 6-29 Puffs ity of mcg/actuati 00:00: every 6 [place] on inhaler 00 (six) Medical hours as Branch needed for Wheezing or Shortness of Breath. albuterol Yes [id number] 2{puff} Inhale 2 Univers 90 6-29 Puffs ity of mcg/actuati 00:00: every 6 [place] on inhaler 00 (six) Medical hours as Branch needed for Wheezing or Shortness of Breath. albuterol Yes [id number] 2{puff} Inhale 2 Univers 90 6-29 Puffs ity of mcg/actuati 00:00: every 6 [place] on inhaler 00 (six) Medical hours as Branch needed for Wheezing or Shortness of Breath. albuterol Yes [id number] 2{puff} Inhale 2 Univers 90 6-29 Puffs ity of mcg/actuati 00:00: every 6 [place] on inhaler 00 (six) Medical hours as Branch needed for Wheezing or Shortness of Breath. albuterol Yes [id number] 2{puff} Inhale 2 Univers 90 6-29 Puffs ity of mcg/actuati 00:00: every 6 [place] on inhaler 00 (six) Medical hours as Branch needed for Wheezing or Shortness of Breath. albuterol Yes [id number] 2{puff} Inhale 2 Univers 90 6-29 Puffs ity of mcg/actuati 00:00: every 6 [place] on inhaler 00 (six) Medical hours as Branch needed for Wheezing or Shortness of Breath. albuterol Yes [id number] 2{puff} Inhale 2 Univers 90 6-29 Puffs ity of mcg/actuati 00:00: every 6 [place] on inhaler 00 (six) Medical hours as Branch needed for Wheezing or Shortness of Breath. albuterol Yes [id number] 2{puff} Inhale 2 Univers 90 6-29 Puffs ity of mcg/actuati 00:00: every 6 [place] on inhaler 00 (six) Medical hours as Branch needed for Wheezing or Shortness of Breath. albuterol Yes [id number] 2{puff} Inhale 2 Univers 90 6-29 Puffs ity of mcg/actuati 00:00: every 6 [place] on inhaler 00 (six) Medical hours as Branch needed for Wheezing or Shortness of Breath. albuterol 2022- No [id number] 2{puff} Inhale 2 Univers 90 6-29 06-09 Puffs ity of mcg/actuati 00:00: 00:00 every 6 [place] on inhaler 00 :00 (six) Medical hours as Branch needed for Wheezing or Shortness of Breath. KCL 2020- No 40meq 40 mEq, Univers (KLOR-CON 12-01 Oral, ity of M20) tablet 14:15: 13:20 [...] of 2.5 mg /3 01:00: , Q4H, [place] mL (0.083 00 First dose Medi santo %) on [facility] nebulizer 11/27/20 at solution 2000, 2.5 mg Until Discontinu ed, Routine ceFEPIme No 2000mg 2,000 mg, U nivers (MAXIPIME) 11-28 IV ity of 2,000 mg in 00:15: 14:42 Piggyback, [place] NaCl 0.9% 00 :22 Q8H ABX, Medica [...] 100 mg in 23:15: 23:48 Q12H ABX, [place] NaCl 0.9% 00 :53 First dose Medi santo (NS) [address] [facility] MINI-BAG 11/27/20 at 1815, Until Discontinu ed, [...] Q12H ABX, First dose on Thu11/27/20 at 1815, Until Discontinu ed, 100 mL
[...] of 1,000 mg in 18:15: 18:16 Piggyback, [place] NaCl 0.9% 00 :00 ONCE, 1 Medical [...] ty of succ 16:45: 15:47 ONCE, 1 [place] (SOLU-MEDRO 00 :00 dose, Tue Med ical L) 11/27/20 at Branch injection 1145, STAT 125 mg ipratropium 2020- No 3mL 3 mL, Univ ers -albuteroL 6-22 06-22 Inhalation it y of (DUONEB) 16:45: 15:36 , ONCE, 1 Juni as 0.5 mg-3 00 :00 dose, Tue Medica l mg(2.5 mg 11/27/20 at [facility])/3 mL 1145, nebulizer Routine solution 3 mL [...] Until Discontinu ed, Routine furosemide 2020-0 Yes [id number] 20mg Take 1 Univers 20 mg 6-08 tablet by ity of tablet 00:00: mouth [place] 00 daily. Medical Branch acidophilus 2020-0 Yes [id number] 1g Take 1 Univers 100 million 6-08 tablet by ity of cell tablet 00:00: mouth 2 [place] 00 (two) Medical times Branch daily. Bismuth 2021-0 Yes [id number] Apply to [place] [facility] Tribrom-Pet 6-08 lower ity of [facility] 00:00: extremity [place] (XEROFORM 00 wounds Medical PETROLATUM with Branch DRESSING) 4 Kerlix X 4 " Bndg wrap and change daily furosemide 2020- Yes [id number] 20mg Take 1 Univers 20 mg 6-08 tablet by ity of tablet 00:00: mouth [place] 00 daily. Medical Branch acidophilus 2020-0 Yes [id number] 1g Take 1 Univers 100 million 6-08 tablet by ity of cell tablet 00:00: mouth 2 [place] 00 (two) Medical times Branch daily. Bismuth Yes [id number] Apply to [place] [facility] Tribrom-Pet 6-08 lower ity of [facility] 00:00: extremity [place] (XEROFORM 00 wounds Medical PETROLATUM with Branch DRESSING) 4 Kerlix X 4 " Bndg wrap and change daily furosemide Yes [id number] 20mg Take 1 Univers 20 mg 6-08 tablet by ity of tablet 00:00: mouth [place] 00 daily. Medical Branch acidophilus Yes [id number] 1g Take 1 Univers 100 million 6-08 tablet by ity of cell tablet 00:00: mouth 2 [place] 00 (two) Medical times Branch daily. Bismuth Yes [id number] [facility] ity of [facility] 00:00: extremity [place] (XEROFORM 00 wounds Medical PETROLATUM with Branch DRESSING) 4 Kerlix X 4 " Bndg wrap and change daily furosemide Yes [id number] 20mg Take 1 Univers 20 mg 6-08 tablet by ity of tablet 00:00: mouth [place] 00 daily. Medical Branch acidophilus 2020-0 Yes [id number] 1g Take 1 Univers 100 million 6-08 tablet by ity of cell tablet 00:00: mouth 2 [place] 00 (two) Medical times Branch daily. Bismuth 0 Yes [id number] Apply to [place] [facility] Tribrom-Pet 6-08 lower ity of [facility] 00:00: extremity [place] (XEROFORM 00 wounds Medical PETROLATUM with Branch DRESSING) 4 Kerlix X 4 " Bndg wrap and change daily furosemide 0 Yes [id number] 20mg Take 1 Univers 20 mg 6-08 tablet by ity of tablet 00:00: mouth [place] 00 daily. Medical Branch acidophilus 2020-0 Yes [id number] 1g Take 1 Univers 100 million 6-08 tablet by ity of cell tablet 00:00: mouth 2 [place] 00 (two) Medical times Branch daily. Bismuth 2020-0 Yes [id number] Apply to [facility] Tribrom-Pet 6-08 lower ity of [place] 00:00: extremity [place] (XEROFORM 00 wounds Medical PETROLATUM with Branch DRESSING) 4 Kerlix X 4 " Bndg wrap and change daily furosemide Yes [id number] 20mg Take 1 Univers 20 mg 6-08 tablet by ity of tablet 00:00: mouth [place] 00 daily. Medical Branch acidophilus 0 Yes [id number] 1g Take 1 Univers 100 million 6-08 tablet by ity of cell tablet 00:00: mouth 2 [place] 00 (two) Medical times Branch daily. Bismuth 0 Yes [id number] [facility] lower ity of [facility] 00:00: extremity [place] (XEROFORM 00 wounds Medical PETROLATUM with Branch DRESSING) 4 Kerlix X 4 " Bndg wrap and change daily furosemide 0 Yes [id number] 20mg Take 1 Univers 20 mg 6-08 tablet by ity of tablet 00:00: mouth [place] 00 daily. Medical Branch acidophilus 2020-0 Yes [id number] 1g Take 1 Univers 100 million 6-08 tablet by ity of cell tablet 00:00: mouth 2 [place] 00 (two) Medical times Branch daily. Bismuth 0 Yes [id number] Apply to [facility] Tribrom-Pet 6-08 lower ity of [place] 00:00: extremity [place] (XEROFORM 00 wounds Medical PETROLATUM with Branch DRESSING) 4 Kerlix X 4 " Bndg wrap and change daily furosemide 0 Yes [id number] 20mg Take 1 Univers 20 mg 6-08 tablet by ity of tablet 00:00: mouth [place] 00 daily. Medical Branch acidophilus 2020-0 Yes [id number] 1g Take 1 Univers 100 million 6-08 tablet by ity of cell tablet 00:00: mouth 2 [place] 00 (two) Medical times Branch daily. Bismuth 2020-0 Yes [id number] [facility] lower ity of [facility] 00:00: extremity [place] (XEROFORM 00 wounds Medical PETROLATUM with Branch DRESSING) 4 Kerlix X 4 " Bndg wrap and change daily furosemide 2020-0 Yes [id number] 20mg Take 1 Univers 20 mg 6-08 tablet by ity of tablet 00:00: mouth [place] 00 daily. Medical Branch acidophilus 2020-0 Yes [id number] 1g Take 1 Univers 100 million 6-08 tablet by ity of cell tablet 00:00: mouth 2 [place] 00 (two) Medical times Branch daily. Bismuth 2020-0 Yes [id number] [facility] lower ity of [facility] 00:00: extremity [place] (XEROFORM 00 wounds Medical PETROLATUM with Branch DRESSING) 4 Kerlix X 4 " Bndg wrap and change daily furosemide 2020-0 Yes [id number] 20mg Take 1 Univers 20 mg 6-08 tablet by ity of tablet 00:00: mouth [place] 00 daily. Medical Branch acidophilus 2020-0 Yes [id number] 1g Take 1 Univers 100 million 6-08 tablet by ity of cell tablet 00:00: mouth 2 [place] 00 (two) Medical times Branch daily. Bismuth 2020-0 Yes [id number] [facility] lower ity of [facility] 00:00: extremity [place] (XEROFORM 00 wounds Medical PETROLATUM with Branch DRESSING) 4 Kerlix X 4 " Bndg wrap and change daily furosemide 2020-0 Yes [id number] 20mg Take 1 Univers 20 mg 6-08 tablet by ity of tablet 00:00: mouth [place] 00 daily. Medical Branch acidophilus 2020-0 Yes [id number] 1g Take 1 Univers 100 million 6-08 tablet by ity of cell tablet 00:00: mouth 2 [place] 00 (two) Medical times Branch daily. Bismuth 2020-0 Yes [id number] Apply to [place] [facility] Tribrom-Pet 6-08 lower ity of [facility],[place] 00:00: extremity [place] (XEROFORM 00 wounds Medical PETROLATUM with Branch DRESSING) 4 Kerlix X 4 " Bndg wrap and change daily furosemide 2020-0 Yes [id number] 20mg Take 1 Univers 20 mg 6-08 tablet by ity of tablet 00:00: mouth [place] 00 daily. Medical Branch acidophilus 2020-0 Yes [id number] 1g Take 1 Univers 100 million 6-08 tablet by ity of cell tablet 00:00: mouth 2 [place] 00 (two) Medical times Branch daily. Bismuth 2020-0 Yes [id number] [facility] 00:00: extremity [place] (XEROFORM 00 wounds Medical PETROLATUM with Branch DRESSING) 4 Kerlix X 4 " Bndg wrap and change daily furosemide 2020-0 Yes [id number] 20mg Take 1 Univers 20 mg 6-08 tablet by ity of tablet 00:00: mouth [place] 00 daily. Medical Branch acidophilus 2020-0 Yes [id number] 1g Take 1 Univers 100 million 6-08 tablet by ity of cell tablet 00:00: mouth 2 [place] 00 (two) Medical times Branch daily. Bismuth 2020-0 Yes [id number] [facility] ity of [facility] 00:00: extremity [place] (XEROFORM 00 wounds Medical PETROLATUM with Branch DRESSING) 4 Kerlix X 4 " Bndg wrap and change daily furosemide 2020-0 Yes [id number] 20mg Take 1 Univers 20 mg 6-08 tablet by ity of tablet 00:00: mouth [place] 00 daily. Medical Branch acidophilus 2020-0 Yes [id number] 1g Take 1 Univers 100 million 6-08 tablet by ity of cell tablet 00:00: mouth 2 [place] 00 (two) Medical times Branch daily. Bismuth 2020-0 Yes [id number] [facility] 00:00: extremity [place] (XEROFORM 00 wounds Medical PETROLATUM with Branch DRESSING) 4 Kerlix X 4 " Bndg wrap and change daily furosemide 2020-0 Yes [id number] 20mg Take 1 Univers 20 mg 6-08 tablet by ity of tablet 00:00: mouth [place] 00 daily. Medical Branch acidophilus 2020-0 Yes [id number] 1g Take 1 Univers 100 million 6-08 tablet by ity of cell tablet 00:00: mouth 2 [place] 00 (two) Medical times Branch daily. Bismuth 0 Yes [id number] Apply to [facility]-Pet 6-08 lower ity of [facility], 00:00: extremity [place] (XEROFORM 00 wounds Medical PETROLATUM with Branch DRESSING) 4 Kerlix X 4 " Bndg wrap and change daily furosemide Yes [id number] 20mg Take 1 Univers 20 mg 6-08 tablet by ity of tablet 00:00: mouth [place] 00 daily. Medical Branch acidophilus Yes [id number] 1g Take 1 Univers 100 million 6-08 tablet by ity of cell tablet 00:00: mouth 2 [place] 00 (two) Medical times Branch daily. Bismuth Yes [id number] Apply to [facility]-Pet 6-08 lower ity of [facility], 00:00: extremity [place] (XEROFORM 00 wounds Medical PETROLATUM with Branch DRESSING) 4 Kerlix X 4 " Bndg wrap and change daily furosemide Yes [id number] 20mg Take 1 Univers 20 mg 6-08 tablet by ity of tablet 00:00: mouth [place] 00 daily. Medical Branch acidophilus Yes [id number] 1g Take 1 Univers 100 million 6-08 tablet by ity of cell tablet 00:00: mouth 2 [place] 00 (two) Medical times Branch daily. Bismuth Yes [id number] [facility] lower ity of [facility], 00:00: extremity [place] (XEROFORM 00 wounds Medical PETROLATUM with Branch DRESSING) 4 Kerlix X 4 " Bndg wrap and change daily furosemide 2020-0 2022- No [id number] 20mg Take 1 Univers 20 mg 6-08 06-09 tablet by ity of tablet 00:00: 00:00 mouth [place] 00 :00 daily. Medical Branch acidophilus 2020-0 3- No [id number] 1g Take 1 Univers 100 million 6-08 06-09 tablet by it y of cell tablet 00:00: 00:00 mouth 2 [place] 00 :00 (two) Medical times Branch daily. Bismuth 2022- No [id number] Apply to [facility] Tribrom-Pet 11-13 lower ity of [place] 00:00: 00:00 extremity [place] (XEROFORM 00 :00 wounds Medical PETROLATUM with Branch DRESSING) 4 Kerlix X 4 " Bndg wrap and change daily levoFLOXaci 2020- No [id number] 500mg Take 20 mL Univers n 250 mg/10 11-13 by mouth ity of mL solution 00:00: 04:59 every 24 [place] 00 :00 (twenty-fo Medical ur) hours Branch for 7 days. levoFLOXaci 2020- No [id number] 500mg Take 20 mL Univers n 250 [...] ity of OINT) 2 % 16:00: 23:05 [place] skin 00 :21 Medical ointment Branch ceFEPIme 2020- No 1000mg 1,000 mg, U nivers (MAXIPIME) 11-11 IV ity of 1,000 mg in 02:00: 15:50 [facility], [place] NaCl 0.9% 00 :11 Q12H ABX, Medic [...] dose Medi santo (NS) 100 mL on [facility] MINI-BAG 11/10/20 at 1830, Until Discontinu ed, 100 mL
R corina for Anti-Infec tive: Documented Infection< br>Documen cristhian Infection Site: Skin / Soft Tissue
Duration of Therapy: 7 days iopamidol 2020- No [id number] 100mL 100 mL, Univers (ISOVUE 11-10 Intravenou ity o f 370-500 mL) 19:15: 17:45 s, ONCE, 1 [place] injection 00 :00 dose, Sat Medic al 100 mL 11/10/20 at Branch 1415, Routine amLODIPine Yes 5mg 5 mg, Univer s (NORVASC) 11-10 Oral, ity of tablet 5 mg 14:00: DAILY, [place] 00 First dose Medical on [facility] 11/10/20 at 0900, Until Discontinu ed, Routine enoxaparin Yes 40mg 40 mg, Unive rs (LOVENOX) 11-10 Subcutaneo ity of injection 14:00: us, DAILY, [place] 40 mg 00 First dose Medical on [facility] 11/10/20 at 0900, Until Discontinu ed, Routine ipratropium Yes 3mL 3 mL, Unive rs -albuteroL 11-10 Inhalation ity of (DUONEB) 13:00: , QID, [place] 0.5 mg-3 00 First dose Medic al mg(2.5 mg on [facility] base)/3 mL 11/10/20 at nebulizer 0800, solution 3 Until mL Discontinu ed, Routine levoFLOXaci No 500mg 500 mg, IV Univers n in D5W 6-05 06-06 Piggyback, ity of (LEVAQUIN) 11:45: 15:48 Administer [...] 11-10 Oral, ity of mg 10:25: 14:04 Q6HPRNGardners, [place] 14 :54 Starting Medical 11/10/20 Branch at 0525, Until 11/12/20 at 0904, Routine, Pain (scale 4-6) acetaminoph 2020- No 15mg/kg 608 mg Univers en 11-1005 (rounded ity of (TYLENOL) 10:15: 09:02 from [...] IV Push, ity of (PF)) 10:05: Q6HPRN, [place] injection 4 13 Starting Medi santo mg 11/10/20 Branch at 0505, Until Discontinu ed, Routine, Nausea and Vomiting (N/V) acetaminoph 0 Yes 650mg 650 mg, Un jacinda en 11-10 Oral, ity of (TYLENOL) 10:04: [place], [place] tablet 650 55 Starting Medic al mg 11/10/20 Branch at 0504, Until Discontinu ed, Routine, Pain (scale 1-3), Temp > 38.5 C acetaminoph 2020- No 325mg 325 mg, U nivers en 11-1005 Oral, ity of (TYLENOL) 10:00: 09:02 ONCE, [...] WEIGHT 2020-12-15 04:00:00 42.8 kg Systolic blood 2022-11-14 21:00:00 138 mm[Hg] Univer sity of pressure [facility] Branch Diastolic blood 2022-11-14 21:00:00 77 mm[Hg] Unive rsity of pressure [facility] Heart rate 2022-11-14 21:00:00 78 /min [facility] Body temperature 2022-11-14 21:00:00 36.94 Charlene Univ ersity of [facility] Respiratory rate 2022-11-14 21:00:00 22 /min Univ ersity of [facility] Oxygen saturation in 2022-11-14 21:00:00 90 /min [facility] Arterial blood by [facility] Pulse oximetry Branch Body weight 2022-11-14 09:00:00 46.993 kg [facility] BMI 2022-11-14 09:00:00 15.75 kg/m2 [facility] Body height 2022-11-11 17:57:00 172.7 cm [facility] Systolic blood 2022-10-10 15:44:00 156 mm[Hg] Univer sity of pressure [facility] Diastolic blood 2022-10-10 15:44:00 85 mm[Hg] Unive rsity of pressure [facility] Heart rate 2022-10-10 15:44:00 75 /min [facility] Body height 2022-10-10 15:44:00 170.2 cm [facility] Body weight 2022-10-10 15:44:00 50.576 kg [facility] BMI 2022-10-10 15:44:00 17.46 kg/m2 [facility] Body height 2022-09-12 13:57:00 170.2 cm [facility] Body weight 2022-09-12 13:57:00 54.432 kg [facility] BMI 2022-09-12 13:57:00 18.79 kg/m2 [facility] WEIGHT 2022-03-29 06:00:00 49.714 kg HEIGHT 2022-03-27 [...] 20:26:00 114 mm[Hg] Univer sity of pressure [facility] Diastolic blood 2020-12-04 20:26:00 84 mm[Hg] Unive rsity of [facility] Heart rate 2020-12-04 20:26:00 97 /min [facility] Body temperature 2020-12-04 20:26:00 37.33 [facility]ene [facility] Res[facility] rate 2020-12-04 20:26:00 20 /min [facility] Oxygen saturation in 2020-12-04 20:26:00 96 /min [facility] Arterial blood by [facility] Pulse oximetry Branch Body height 2020-11-27 22:06:00 172.7 cm Universi ty of [facility] Body weight 2020-11-27 22:06:00 44 kg Universi ty [facility] BMI 2020-11-27 22:06:00 14.75 kg/m2 Universi ty [facility] Systolic blood 2020-12-04 20:26:00 114 mm[Hg] [facility]iver [facility]ity [facility] Diastolic blood 2020-12-04 20:26:00 84 mm[Hg] [facility] Heart rate 2020-12-04 20:26:00 97 /min [facility] Body temperature 2020-12-04 20:26:00 37.33 Charlene [facility] Respiratory rate 2020-12-04 20:26:00 20 /min [facility] Oxygen saturation in 2020-12-04 20:26:00 96 /min University of Arterial blood by [facility] Pulse oximetry Branch Body height 2020-11-27 22:06:00 172.7 cm [facility] Body weight 2020-11-27 22:06:00 44 kg [facility] BMI 2020-11-27 22:06:00 14.75 kg/m2 [facility] Body temperature 2020-11-13 16:20:00 36.44 Charlene [facility] Respiratory rate 2020-11-13 16:20:00 21 /min [facility] Oxygen saturation in 2020-11-13 15:59:00 96 /min University of Arterial blood by [facility] Pulse oximetry Branch Systolic blood 2020-11-13 13:00:00 147 mm[Hg] [facility] Diastolic blood 2020-11-13 13:00:00 99 mm[Hg] [facility] Heart rate 2020-11-13 13:00:00 80 /min [facility] Body weight 2020-11-13 08:30:00 52.617 kg [facility] BMI 2020-11-13 08:30:00 17.64 kg/m2 [facility] Body height 2020-11-10 10:26:00 172.7 cm [facility] Body temperature 2020-11-13 16:20:00 36.44 Charlene [facility] Respiratory rate 2020-11-13 16:20:00 21 /min [facility] Oxygen saturation in 2020-11-13 15:59:00 96 /min University of Arterial blood by [facility] Pulse oximetry Branch Systolic blood 2020-11-13 13:00:00 147 mm[Hg] Univer sity of pressure [facility] Diastolic blood 2020-11-13 13:00:00 99 mm[Hg] Unive rsity of pressure [facility] Heart rate 2020-11-13 13:00:00 80 /min [facility] Body weight 2020-11-13 08:30:00 52.617 [facility] 2020-11-13 08:30:00 17.64 kg/m2 [facility] Body height 2020-11-10 10:26:00 172.7 cm [facility] Systolic blood 2022-03-29 11:01:00 150 mm[Hg] [facility] Diastolic blood 2022-03-29 11:01:00 90 mm[Hg] [facility] Heart rate 2022-03-29 11:01:00 88 /min [facility] Body temperature 2022-03-29 11:01:00 35.61 Charlene [facility] Respiratory rate 2022-03-29 11:01:00 18 /min [facility] Oxygen saturation in 2022-03-29 11:01:00 97 /min [facility] Arterial blood by Medical Ce [facility]ter Pulse oximetry Body weight 2022-03-29 06:00:00 49.714 kg [facility] BMI 2022-03-29 06:00:00 18.24 kg/m2 [facility] Body height 2022-03-27 22:32:00 165.1 cm [facility] Procedures Procedure Date / Time Performing Source Performed Clinician COVID-19 (ID NOW RAPID 2022-11-14 Amanda Daniels [facility] TESTING) 19:06:00 [facility] PHOSPHORUS 2022-11-14 Amanda Daniels [facility] 11:03:00 [facility] MAGNESIUM 2022-11-14 Jeremiah Amanda [facility] 11:03:00 [facility] BASIC METABOLIC PANEL (NA, K, 2022-11-14 Amanda Daniels [facility] CL, CO2, GLUCOSE, BUN, 11:03:00 [facility] CREATININE, [place]) CBC WITH DIFF 2022-11-14 [facility] xa 11:03:00 [facility] N-TERMINAL PRO-BNP 2022-11-14 [facility] 11:03:00 Medical Branch POCT GLUCOSE (AUTOMATED) 2022-11-13 [facility] 23:15:00 Medical Branch POCT GLUCOSE (AUTOMATED) 2022-11-13 [facility] 17:14:00 [facility] ACUTE CARE ARTERIAL BLOOD GAS 2022-11-13 [facility] 09:35:00 [facility] PHOSPHORUS 2022-11-13 [facility] x[facility] 08:58:00 [facility] MAGNESIUM 2022-11-13 [facility] xa 08:58:00 [facility] TROPONIN I 2022-11-13 [facility] xa 08:58:00 [facility] HEPATIC FUNCTION PANEL 2022-11-13 [facility] ([id number]) (ALB,T.PRO,BILI 08:58:00 Medical Branch T,BU/BC,ALT,AST,ALK PHOS) BASIC METABOLIC PANEL (NA, K, 2022-11-13 [facility] CL, CO2, GLUCOSE, BUN, 08:58:00 Medical ran CREATININE, [place]) CBC WITH DIFF 2022-11-13 [facility] xa 08:58:00 [facility] N-TERMINAL PRO-BNP 2022-11-13 [facility] 08:58:00 [facility] POCT GLUCOSE (AUTOMATED) 2022-11-13 [facility] 05:08:00 [facility] XR CHEST 1 VW 2022-11-12 [facility] 17:30:00 [facility] ACUTE CARE ARTERIAL BLOOD GAS 2022-11-12 [facility] 16:37:00 [facility] MAGNESIUM 2022-11-12 [place] 13:31:00 [facility] Branch THYROID STIMULATING HORMONE 2022-11-12 [facility] 13:31:00 [facility] BASIC METABOLIC PANEL (NA, K, 2022-11-12 [facility], [facility], GLUCOSE, BUN, 13:31:00 Medical B ran CREATININE, [place]) XR CHEST 1 VW 2022-11-12 Dominique Taylor [facility] xa 11:55:00 Medical Branch CBC WITH DIFF 2022-11-12 Mikala [facility] 10:29:00 Medical Branch GLYCOSYLATED HEMOGLOBIN (A1C) 2022-11-12 Dominique Taylor [facility] 10:29:00 [facility] N-TERMINAL PRO-BNP 2022-11-12 dacia [facility] 10:29:00 Medical Branch ACUTE CARE ARTERIAL BLOOD GAS 2022-11-12 Clarence pederson [facility] 09:28:[address] HEAD WO CONTRAST 2022-11-12 Dominique Taylor [facility] [place] 03:57:00 [facility] ACUTE CARE ARTERIAL BLOOD GAS 2022-11-12 Dominique Taylor [facility] 00:30:00 Medical Branch XR CHEST 1 VW 2022-11-11 Dominique Taylor [facility] 23:02:00 Medical Branch XR KUB 2022-11-11 Dominique Taylor [facility] 23:02:00 Medical Branch ACUTE CARE ARTERIAL BLOOD GAS 2022-11-11 Dominique Taylor [facility] 22:29:00 [facility] POCT GLUCOSE (AUTOMATED) 2022-11-11 Dominique Taylor [facility] 21:53:00 Medical Branch LOWER EXTREMITY ARTERIAL 2022-11-11 Yandel Colunga [facility] DUPLEX BILATERAL - BY 16:20:00 [facility] VASCULAR LAB DUPLEX VENOUS LEG RIGHT - BY 2022-11-11 Amanda Daniels [facility] VASCULAR LAB 13:58:16 Medical Branch MRSA / MSSA SCREEN BY PCR, 2022-11-11 Amanda Daniels [facility] NARES 12:46:00 Medical Branch BLOOD CULTURE SCREEN 2022-11-11 Vidhya Fuentes [facility] 11:42:00 Medical Branch XR CHEST 1 VW 2022-11-11 [facility] ex 10:50:00 Medical Branch XR FOOT 3+ VW BILATERAL 2022-11-11 [facility] 10:50:00 Medical Branch XR HIPS 2 VW RIGHT 2022-11-11 [facility] [place] 10:50:00 [facility] MAGNESIUM 2022-11-11 [facility] ex 10:16:00 Medical Branch FREE T4 2022-11-11 [facility] x[facility] 10:16:00 Medical Branch COMP. METABOLIC PANEL ([id number]) 2022-11-11 [facility] 10:16:00 Medical Branch CBC WITH DIFF 2022-11-11 [facility] 10:16:00 Medical Branch N-TERMINAL PRO-BNP 2022-11-11 [facility] [place] 10:16:00 [facility] ASSIGNMENT OF BENEFITS 2022-11-11 Doctor Unassigned, [facility] 10:09:55 [facility] CONSENT/REFUSAL FOR DIAGNOSIS 2022-11-11 Doctor Unassigned, [facility] AND TREATMENT 10:09:41 [facility] EXTERNAL PROVIDER RECORDS 2022-10-01 Doctor Unassigned, [facility] 05:01:00 [facility] EXTERNAL PROVIDER RECORDS 2022-09-19 Doctor Unassigned, [facility] 05:01:00 [facility] ASSIGNMENT OF BENEFITS 2022-09-12 Doctor Unassigned, [facility] 13:43:29 [facility] RADIOLOGY DOCUMENTATION 2022-08-12 Doctor Unassigned, [facility] 06:01:00 [facility] 2D ECHO W/ DOPPLER 2022-04-01 Quentin Mckeon [facility] (CW/PW/COLOR) 09:58:03 [facility] XR CHEST 1 VIEW PORTABLE / 2022-03-29 Laurie Mendieta [facility] [place] [facility] 07:47:00 [facility] MAGNESIUM 2022-03-29 Hali Rincon Chi, [facility] 04:23:00 [facility] COMPREHENSIVE METABOLIC PANEL 2022-03-29 Hali Rincon [facility] 04:23:00 [facility] CBC W/PLT COUNT & AUTO 2022-03-29 Toribio Kolb [facility] DIFFERENTIAL 04:22:00 [facility] CBC W/PLT COUNT & AUTO 2022-03-29 CortesToribio wiley [facility] DIFFERENTIAL 04:22:00 [facility] XR CHEST 1 VIEW PORTABLE / 2022-03-28 Gloyossi Simran [facility] 07:10:00 [facility] XR CHEST 1 VIEW PORTABLE / 2022-03-27 Juanjose Berrios [facility] BEDSIDE 12:11:00 [facility] XR CHEST 1 VIEW PORTABLE / 2022-03-27 [place] Simran [facility] BEDSIDE 07:09:00 [facility] XR CHEST 1 VIEW PORTABLE / 2022-03-26 Quentin Mckeon [facility] S [facility] BEDSIDE 18:12:00 [facility] SARS-COV2/RT-PCR ([facility] & REF 2022-03-26 Mckeon, Quentin B [facility] LABS) 07:40:00 [facility] XR CHEST 1 VIEW PORTABLE / 2022-03-26 [place] Simran [facility] 07:36:00 [facility] XR CHEST 1 VIEW PORTABLE / 2022-03-25 Gloyossi Simran [facility] 06:49:00 [facility] XR CHEST 1 VIEW PORTABLE / 2022-03-24 GloLuanne syhryn [facility] 08:17:00 [facility] XR CHEST 1 VIEW PORTABLE / 2022-03-23 Gloyossi Simran [facility] 07:12:00 [facility] XR CHEST 1 VIEW PORTABLE / 2022-03-22 Gloyossi Simran [facility] 07:05:00 [facility] XR CHEST 1 VIEW PORTABLE / 2022-03-21 Gloyossi Simran [facility] 09:23:00 [facility] XR CHEST 1 VIEW PORTABLE / 2022-03-20 Italo Benitez [facility] B[facility] 12:39:00 [facility] XR CHEST 1 VIEW PORTABLE / 2022-03-[address] [facility] BEDSIDE 06:55:00 [facility] BASIC METABOLIC PANEL 2022-03-20 Mckeon, Quentin B [facility] 05:20:00 [facility] XR CHEST 1 VIEW PORTABLE / 2022-03-19 [facility]eta [facility] 13:25:00 [facility] XR CHEST 1 VIEW PORTABLE / 2022-03-[address] [facility] BEDSIDE 06:20:00 [facility] MAGNESIUM 2022-03-19 Mckeon, Quentin B [facility] 05:45:00 [facility] XR CHEST 1 VIEW PORTABLE / 2022-03-18 [facility]ie [facility]eta [facility] 16:21:00 [facility] XR CHEST 1 VIEW PORTABLE / 2022-03-[address] [facility] BEDSIDE 12:20:00 [facility] XR CHEST 1 VIEW PORTABLE / 2022-03-[address] [facility] BEDSIDE 09:46:00 [facility] POCT-GLUCOSE METER 2022-03-14 Mckeon, Quentin B [facility] 12:50:00 [facility] POCT-GLUCOSE METER 2022-03-14 Mckeon, Quentin B [facility] 07:29:00 [facility] CT CHEST WITHOUT IV CONTRAST 2022-03-[address] Goy[address]ex Yandel [facility] 21:51:00 [facility] POCT-GLUCOSE METER 2022-03-13 Mckeon Quentin B [facility] 17:14:00 [facility] XR CHEST 1 VIEW PORTABLE / 2022-03-13 Bibyco VerJay Jay hillel [facility] 16:58:00 [facility] POCT-GLUCOSE METER 2022-03-13 Mckeon, Quentin B [facility] 13:36:00 [facility] XR CHEST 1 VIEW PORTABLE / 2022-03-13 Mckeon, Quentin [facility] 12:24:00 [facility] POCT-GLUCOSE METER 2022-03-12 Mckeon, Quentin B [facility] 23:44:00 [facility] POCT-GLUCOSE METER 2022-03-12 Mckeon, Quentin Acuña [facility] 17:40:00 [facility] XR CHEST 1 VIEW PORTABLE / 2022-03-12 Yandel [address] [facility] 15:08:[address] [facility] [address] CHEST WITHOUT IV CONTRAST 2022-03-12 Mckeon, Quentin Acuña [facility] 13:54:00 [facility] POCT-GLUCOSE METER 2022-03-12 Mckeon, Quentin B [facility] 11:24:00 [facility] XR CHEST 1 VIEW PORTABLE / 2022-03-[address] [facility] 02:58:00 [facility] XR CHEST 1 VIEW PORTABLE / 2022-03-11 Mckeon, Quentin Acuña [facility] 20:13:00 [facility] XR CHEST 1 VIEW PORTABLE / 2022-03-11 Mckeon, Quentin Acuña [facility] 12:06:00 [facility] XR CHEST 1 VIEW PORTABLE / 2022-03-11 Nelson Song [facility] 00:53:00 [facility] POCT-GLUCOSE METER 2022-03-10 Mckeon, Quentin Acuña [facility] 16:09:00 [facility] POCT-GLUCOSE METER 2022-03-10 Mckeon, Quentin B [facility] 10:54:00 [facility] ECG 12-LEAD 2022-03-09 Unknown, Hl7 Doctor [facility] 23:30:24 [facility] ECG 12-LEAD 2022-03-09 Unknown, Hl7 Doctor [facility] 23:30:24 [facility] ECG 12-LEAD 2022-03-09 Unknown, Hl7 Doctor [facility] 23:27:25 [facility] XR CHEST 1 VIEW PORTABLE / 2022-03-09 Hali Rincon Chi Caitlyn [facility] BEDSIDE 23:26:00 [facility] US ABDOMEN LIMITED 2022-03-09 Mckeon, Quentin B [facility] 21:25:00 [facility] APTT 2022-03-[address] [facility] 20:11:00 [facility] HIGH SENSITIVITY TROPONIN I 2022-03-09 Hali Rincon Chi Caitlyn [facility] 17:50:00 [facility] APTT 2022-03-[address] [facility] 13:06:00 [facility] Center HIGH SENSITIVITY TROPONIN I 2022-03-[address] [facility] 12:02:00 [facility] Center ECG 12-LEAD 2022-03-09 Unknown, Hl7 Doctor [facility] 10:45:00 [facility] ECG 12-LEAD 2022-03-09 Unknown, Hl7 Doctor [facility] 10:43:41 [facility] ECG 12-LEAD 2022-03-09 Unknown, Hl7 Doctor [facility] 10:43:41 [facility] 2D ECHO W/ DOPPLER 2022-03-[address] [facility] (CW/PW/COLOR) 09:06:00 [facility] HEPATITIS PANEL, ACUTE 2022-03-[address] [facility] 07:27:00 [facility] POCT-GLUCOSE METER 2022-03-[address] [facility] 07:25:00 [facility] APTT 2022-03-[address] [facility] 03:21:00 [facility] CBC W/PLT COUNT & AUTO 2022-03-[address] [facility] DIFFERENTIAL 03:21:00 [facility] COMPREHENSIVE METABOLIC PANEL 2022-03-09 [facility] 03:21:00 [facility] HIGH SENSITIVITY TROPONIN I 2022-03-[address] [facility] 03:21:00 [facility] MAGNESIUM 2022-03-[address] [facility] 03:21:00 [facility] B-TYPE NATRIURETIC FACTOR 2022-03-[address] [facility] (BNP) 03:21:00 [facility] CBC W/PLT COUNT & AUTO 2022-03-[address] [facility] DIFFERENTIAL 03:21:00 [facility] XR CHEST 1 VIEW PORTABLE / 2022-03-09 Quentin [facility]keon [facility] 02:51:00 [facility] ECG 12-LEAD 2022-03-09 Unknown, Hl7 Doctor [facility] 02:35:02 [facility] ECG 12-LEAD 2022-03-09 Unknown, Hl7 Doctor [facility] 02:34:18 [facility] ECG 12-LEAD 2022-03-[address] [facility] 02:32:32 [facility] ECG 12-LEAD 2022-03-09 Unknown, Hl7 Doctor [facility] 02:32:32 [facility] PROTHROMBIN TIME/INR 2022-03-[address] [facility] 00:42:00 [facility] APTT 2022-03-[address] [facility] 00:42:00 [facility] CYSTATIN C WITH EGFR 2022-03-[address] [facility] 00:42:00 [facility] VITAMIN B12 2022-03-[address] [facility] 00:42:00 [facility] IRON, TIBC, % SAT. (WITHOUT 2022-03-[address] [facility] FERRITIN) 00:42:00 [facility] FERRITIN 2022-03-[address] [facility] 00:42:00 [facility] BLOOD CULTURE 2022-03-[address] [facility] 00:25:00 [facility] POCT-GLUCOSE METER 2022-03-[address] [facility] 00:23:00 [facility] SARS-COV2/RT-PCR ([facility] & REF 2022-03-[address] [facility] LABS) 23:40:00 [facility] BLOOD GAS, VENOUS 2022-03-[address] [facility] 23:27:00 [facility] COMPREHENSIVE METABOLIC PANEL 2022-03-08 [address] [facility] 23:26:00 [facility] CBC W/PLT COUNT & AUTO 2022-03-[address] [facility] DIFFERENTIAL 23:26:00 [facility] HIGH SENSITIVITY TROPONIN I 2022-03-[address] [facility] 23:26:00 [facility] MAGNESIUM 2022-03-[address] [facility] 23:26:00 [facility] LACTIC ACID, VENOUS 2022-03-[address] [facility] 23:26:00 [facility] LIPID PANEL 2022-03-[address] [facility] 23:26:00 [facility] CBC W/PLT COUNT & AUTO 2022-03-[address] [facility] DIFFERENTIAL 23:26:00 [facility] XR CHEST 1 VIEW PORTABLE / 2022-03-08 [facility] 22:59:00 [facility] VASCULAR DIAGRAM -SCAN 2022-03-08 Provider, Default [facility] 00:00:00 Scanning [facility] PERMANENT LAB REPORT - SCAN 2022-03-08 Provider, Default [facility] 00:00:00 Scanning [facility] CARDIAC CATH REPORT - SCAN 2022-03-08 Provider, Default [facility] 00:00:00 Scanning [facility] ALBUMIN 2020-12-04 Gerber [facility] xas 10:05:00 [facility]UM [facility] BASIC METABOLIC PANEL (NA, K, 2020-12-04 Nelson Mayes [facility] [place] CL, CO2, GLUCOSE, BUN, 10:05:00 [facility] CREATININE, [place]) CBC WITH DIFF 2020-12-04 Gerber [facility] xas 10:05:00 [facility] MAGNESIUM 2020-12-03 [facility] 11:08:[facility] BASIC METABOLIC PANEL (NA, K, 2020-12-03 Nelson Mayes [facility] [place] CL, CO2, GLUCOSE, BUN, 11:08:00 [facility] CREATININE, [place]) CBC WITH DIFF 2020-12-03 Gerber [facility] 11:08:00 [facility] PHOSPHORUS 2020-12-01 [facility] 09:38:00 [facility] MAGNESIUM 2020-12-01 [facility] 09:38:00 [facility] BASIC METABOLIC PANEL (NA, K, 2020-12-01 Blake [facility] [place] CL, CO2, GLUCOSE, BUN, 09:38:00 [facility] CREATININE, [place]) CBC WITH DIFF 2020-12-01 [place] [facility] xa 09:38:00 [facility] SPUTUM CULTURE 2020-11-29 Irma Webb [facility] 00:25:00 [facility] AC PANEL 21 + LACTIC ACID 2020-11-28 Adelina Llanos [facility] 20:07:00 [facility] URINALYSIS 2020-11-28 Amelia Ziegler [facility] xa 09:43:00 [facility] Branch PNEUMOCOCCAL ANTIGEN 2020-11-28 Viet [facility] 09:43:00 [facility] MAGNESIUM 2020-11-28 Irma Webb [facility]as 09:25:00 [facility] HEPATIC FUNCTION PANEL 2020-11-28 Irma Webb [facility] ([id number]) (ALB,T.PRO,BILI 09:25:00 [facility] T,BU/BC,ALT,AST,ALK PHOS) BASIC METABOLIC PANEL (NA, K, 2020-11-28 Irma Webb [facility] CL, CO2, GLUCOSE, BUN, 09:25:00 [facility] CREATININE, [place]) CBC WITH DIFF 2020-11-28 Irma Webb [facility] 09:25:00 [facility] AC PANEL 21 + LACTIC ACID 2020-11-28 Viet [facility] 09:25:00 [facility] XR RIBS 4+ VW BILATERAL 2020-11-28 Irma Webb [facility] 05:40:20 Medical Branch EXTERNAL PROVIDER RECORDS 2020-11-28 Doctor Unassigned, [facility] 05:01:00 [facility] [place] [facility] AC PANEL 20 + LACTIC ACID 2020-11-28 Yemi Ford [facility] 03:42:00 Medical Branch ACUTE CARE VENOUS BLOOD GAS 2020-11-28 Irma Webb [facility] 00:44:00 Medical Branch PROCALCITONIN 2020-11-27 Irma Webb [facility] 23:38:00 [facility] TROPONIN I 2020-11-27 Irma Webb [facility] xa 23:00:00 [facility] ACUTE CARE ARTERIAL BLOOD GAS 2020-11-27 Irma Webb [facility] 23:00:00 Medical Branch MRSA / MSSA SCREEN BY PCR, 2020-11-27 Irma Webb [facility] NARES 23:00:00 Medical Branch HB ECG ROUTINE & RHYTHM STRIP 2020-11-27 Irma Webb [facility] 22:54:06 Medical Branch BLOOD CULTURE SCREEN 2020-11-27 Amelia Ziegler [facility] 16:29:00 Medical Branch XR CHEST 1 VW 2020-11-27 Amelia Ziegler [facility] xa 16:23:02 [facility] COVID-19 (ID NOW RAPID 2020-11-27 Amelia Ziegler [facility] TESTING) 15:48:00 Medical Branch LAB ONLY COVID INTERPRETATION 2020-11-27 Amelia Ziegler [facility] 15:48:00 Medical Branch BLOOD CULTURE SCREEN 2020-11-27 Amelia Ziegler [facility] 15:44:00 [facility] GAMMA GLUTAMYLTRANSFERASE 2020-11-27 Irma Webb [facility] 15:44:00 [facility] TROPONIN I 2020-11-27 Amelia Ziegler [facility] 15:44:00 [facility] COMP. METABOLIC PANEL ([id number]) 2020-11-27 Amelia Ziegler [facility] 15:44:00 [facility] CBC WITH DIFF 2020-11-27 Amelia Ziegler [facility] xa 15:44:00 [facility] N-TERMINAL PRO-BNP 2020-11-27 Irma Webb [facility] 15:44:00 [facility] AC PANEL 21 + LACTIC ACID 2020-11-27 Amelia Ziegler [facility] 15:44:00 [facility] CONSENT/REFUSAL FOR DIAGNOSIS 2020-11-27 Doctor Unassigned, [facility] AND TREATMENT 15:18:15 [place] [facility] AGREEMENTS AUTHORIZATIONS AND 2020-11-27 Doctor Marianassigned, [facility] IRREVOCABLE ASSIGNMENTS (FORM 05:01:00 [place] [facility] 2000) C-REACTIVE PROTEIN 2020-11-13 Luz Maria Jessica [facility] 00:29:00 [facility] N-TERMINAL PRO-BNP 2020-11-13 Amanda Daniels [facility] 00:29:00 [facility] PROCALCITONIN 2020-11-13 Luz Maria Jessica [facility] xa 00:29:00 [facility] TRANSTHORACIC ECHO (TTE) 2020-11-12 Abdullah, [facility] COMPLETE 17:46:08 Medical Branch LOWER EXTREMITY ARTERIAL 2020-11-12 [facility] DUPLEX BILATERAL - BY 16:02:28 Medical Br anch VASCULAR LAB BASIC METABOLIC PANEL (NA, K, 2020-11-12 Clarence Bach [facility] CL, CO2, GLUCOSE, BUN, 13:56:00 Medical B ran CREATININE, CA) CBC WITH DIFF 2020-11-12 Mikala [facility]as 13:55:00 [facility] BLOOD CULTURE SCREEN 2020-11[facility]12 [facility] 11:17[facility]00 [facility] BLOOD CULTURE SCREEN 2020-11-12 [facility] 11:12:00 [facility] THYROID STIMULATING HORMONE 2020[facility]-11 [facility] 22:[facility] VANCOMYCIN TROUGH 2020-11-11 Mikala [facility] 22:51:[address] THORAX W CONTRAST 2020-11-10 [facility] 18:02:33 [facility] URINALYSIS 2020-11-10 Vidhya Fuentes [facility] ex 09:14:00 Medical Branch XR CHEST 1 VW 2020-11-10 Vidhya Fuentes [facility] ex 08:57:43 Medical Branch BLOOD CULTURE SCREEN 2020-11-10 Vidhya Fuentes [facility] 08:45:00 Medical Branch BLOOD CULTURE WORKUP 2020-11-10 Vidhya Fuentes [facility] 08:45:00 [facility] GRAM NEGATIVE BLOOD PATHOGENS 2020-11-10 Vidhya Fuentes [facility] DNA PROBE-AEROBIC 08:45:00 Medical Branch BLOOD CULTURE SCREEN 2020-11-10 Vidhya Fuentes [facility] 08:43:00 [facility] LACTIC ACID WHOLE BLOOD 2020-11-10 Vidhya Fuentes [facility] 08:43:00 Medical Branch BLOOD CULTURE WORKUP 2020-11-10 Vidhya Fuentes [facility] 08:43:00 Medical Branch FREE T4 2020-11-10 [facility] 08:42[facility] Medical Branch COMP. METABOLIC PANEL ([id number]) 2020-11-10 Vidhya Fuentes [facility] 08:42:00 Medical Branch CBC WITH DIFF 2020-11-10 Vidhya Fuentes [facility] exas 08:42:00 Medical Branch FREE T3 2020-11-10 Jeremiah Amanda [facility] xa 08:42:00 Medical Branch COVID-19 (ID NOW RAPID 2020-11-10 Vidhya Fuentes [facility] TESTING) 08:42:00 Medical Branch LAB ONLY COVID INTERPRETATION 2020-11-10 Vidhya Fuentes [facility] 08:42:00 Medical Branch HB ECG ROUTINE & RHYTHM STRIP 2020-11-10 Vidhya Fuentes [facility] 08:40:08 Medical Branch NOTICE OF PRIVACY PRACTICES 2020-11-10 Doctor Unassigned, [facility] 08:36:16 [place] [facility] [place] CONSENT/REFUSAL FOR DIAGNOSIS 2020-11-10 Doctor Unassigned, [facility] AND TREATMENT 08:35:48 [place] [facility] [place] Plan of Care Planned Activity Planned Date [facility] Future Scheduled 1999 SHINGLES VACCINES ([address] [facility] 00:00:00 2) [code = [facility] Center VACCINES (1 of 2)] Future Scheduled 1999 SHINGLES VACCINES ([address] [facility] Test 00:00:00 2) [code = SHINGLES [facility] VACCINES (1 of 2)] Future Scheduled [...] breast Medical C enter (procedure) [code = 740031596] Future Scheduled 1949 CT Colonography (combo) [facility] Test 00:00:00 [code = CT Colonography [facility] (combo)] Future Scheduled 1949 Screening for malignant [facility] Test 00:00:00 neoplasm of colon Medical Ce nter (procedure) [code = 890542736] Future Scheduled 1949 Screening for malignant [facility] Test 00:00:00 neoplasm of colon Medical Ce nter (procedure) [code = 224281236] Future Scheduled 1949 DXA SCAN [code = DXA [facility] Test 00:00:00 SCAN] [facility] Future Scheduled 1949 Screening for malignant [facility] Test 00:00:00 neoplasm of colon Medical Ce nter (procedure) [code = 002305018] Future Scheduled 1949 Screening for malignant [facility] Test 00:00:00 neoplasm of colon Medical Ce nter (procedure) [code = 813040900] Future Scheduled 1949 Sigmoidoscopy [facility]code = [facility] 1949 Screening for malignant [facility] Test 00:00:00 neoplasm of breast Medical C enter (procedure) [code = 425320181] Future Scheduled 1949 CT Colonography (combo) [facility] Test 00:00:00 [code = CT Colonography [facility] (combo)] Future Scheduled 1949 Screening for malignant [facility] Test 00:00:00 neoplasm of colon Medical Ce nter (procedure) [code = 737302449] Future Scheduled 1949 Screening for malignant [facility] Test 00:00:00 neoplasm of colon Medical Ce nter (procedure) [code = 735396139] Future Scheduled 1949 DXA SCAN [code = DXA [facility] Test 00:00:00 SCAN] [facility] Future Scheduled 1949 Screening for malignant [facility] Test 00:00:00 neoplasm of colon Medical Ce nter (procedure) [code = 808565875] Future Scheduled 1949 Screening for malignant [facility] Test 00:00:00 neoplasm of colon Medical Ce nter (procedure) [code = 009269214] Future Scheduled 1949 Sigmoidoscopy [code = [facility] 00:00:00 [facility]oscopy] [facility] Future Scheduled 1949 Screening for malignant [facility] Test 00:00:00 neoplasm of breast Medical C enter (procedure) [code = 967910406] Future Scheduled 1949 CT Colonography (combo) [facility] Test 00:00:00 [code = CT Colonography [facility] (combo)] Future Scheduled 1949 Screening for malignant [facility] Test 00:00:00 neoplasm of colon Medical Ce nter (procedure) [code = 087767702] Future Scheduled 1949 Screening for malignant [facility] Test 00:00:00 neoplasm of colon Medical Ce nter (procedure) [code = 183407534] Future Scheduled 1949 DXA SCAN [code = DXA [facility] Test 00:00:00 SCAN] [facility] Future Scheduled 1949 Screening for malignant [facility] Test 00:00:00 neoplasm of colon Medical Ce nter (procedure) [code = 922800688] Future Scheduled 1949 Screening for malignant [facility] Test 00:00:00 neoplasm of colon Medical Ce nter (procedure) [code = 892120348] Future Scheduled 1949 Sigmoidoscopy [code = [facility] 00:00:00 Sigmoidoscopy] Medical Cente r Encounters Start End Encounter Admission Attending Care Care Encounter Source Date/Time Date/Time Type Type Clinicians Facility Department ID 2020-12-14 Inpatient ER ADHI, [facility] Medical ICU [id number] SLE 20:10:00 CHAO 2023-01-09 2023-01-09 Outpatient [facility] [id number] 08:39:28 08:39:28 [id number] F Shiva 2023-01-07 2023-01-07 Outpatient [facility] [id number] 11:36:22 11:36:22 [id number] F Shiva 2022-12-31 2022-12-31 Outpatient [facility] [id number] 14:25:15 14:25:15 [id number] F Shiva 2022-11-17 2022-11-17 Transition RADHA Paula 1.2.840.114 [id number] Univers 00:00:00 00:00:00 of Care Lele INGRAM 350.1.13.10 ity [place] [id number] [facility] 403 Branch 2022-11-11 2022-11-14 Inpatient X JEREMIAH [facility] YEHUDA [id number] Univers 04:50:00 16:36:00 AMANDA ity of [facility] 2022-11-11 2022-11-14 [facility] Vidhya Fuentes [facility] 1.2.840. 114 [id number] Univers 04:50:00 16:36:00 Encounter Amanda Daniels 350.1.13.10 ity Dominique Taylor 4.2.7.2.686 [facility] [id number] [facility] [address] [place] 2022-10-17 2022-10-17 Outpatient [facility] [id number] 14:30:58 14:30:58 [id number] F Shiva 2022-10-10 2022-10-10 [facility] 1.2.840.114 [id number] Univers 11:15:00 11:30:00 Visit [facility] 350.1.13.10 it y of [place] 4.2.7.2.686 Juni as DANIELLE?BLEA [id number] [address] MEDICAL OFFICE BUILDING 2022-10-10 2022-10-10 Outpatient R DARCI [facility] [id number] Univers 11:15:00 11:20:57 LACY [facility] 2022-10-01 2022-10-01 Orders Doctor RANGEL 1.2.840.114 [id number] Univers 00:00:00 00:00:00 Only Unassigned, TAMAR 350.1.13.10 ity of [place] [facility] 4.2.7.2.686 Juni as [id number] [address] 2022-09-19 2022-09-19 Orders Doctor RANGEL 1.2.840.114 [id number] Univers 00:00:00 00:00:00 Only Unassigned, TAMAR 350.1.13.10 ity of [place] [facility] 4.2.7.2.686 Juni as [id number] [address] 2022-09-12 2022-09-12 Outpatient Nilay HOSKINS [facility] [id number] Univers 08:45:00 09:26:37 MARIA GUADALUPE ity [facility] 2022-09-12 2022-09-12 Office [facility] [id number] [id number] Univers 08:45:00 09:26:37 Visit Maria Guadalupe MICHEL 350.1.13.10 it y of [place] 4.2.7.2.686 Juni as DANIELLE?BLEA [id number] Oh xiomy JOCELYN [address] [facility] OFFICE [facility] 2022-09-12 2022-09-12 Orders Doctor CLAIRE 1.2.840.114 [id number] Univers 00:00:00 00:00:00 Only Unassigned, TAMAR 350.1.13.10 ity of [place] [facility] 4.2.7.2.686 Juni as [id number] [address] 2022-08-12 2022-08-12 Telephone [facility] 1.2.840.114 [id number] Univers 00:00:00 00:00:00 Maria Guadalupe Blood HEALTH 350.1.13.10 it y of [place] 4.2.7.2.686 Juni as DANIELLE?BLEA [phone] Oh xiomy [address] OFFICE [facility] 2022-08-12 2022-08-12 Orders Doctor CLAIRE 1.2.840.114 [id number] Univers 00:00:00 00:00:00 Only Unassigned, TAMAR 350.1.13.10 ity of [place] [facility] 4.2.7.2.686 Juni as [id number] [address] 2022-08-11 2022-08-11 [facility] 1.2.840.114 [id number] Univers 16:16:00 23:59:00 Encounter Maria Guadalupe MICHELE'S 350.1.13.10 ity of [place] [id number] [address] 2022-08-11 2022-08-11 [facility] [id number] Univers 00:00:00 23:59:00 MARIA GUADALUPE itmica [facility] 2022-08-11 2022-08-11 Telephone [place] 1.2.840.114 [id number] Univers 00:00:00 00:00:00 Maria Guadalupe MICHEL 350.1.13.10 it y of [place] 4.2.7.2.686 Juni as DANIELLE?BLEA [phone] Oh dicgabriela [address] MEDICAL OFFICE BUILDING 2022-08-10 2022-08-10 Hospital Aidee [facility]. 1.2.840.114 [id number] Univers 14:02:00 23:59:00 Encounter Maria Guadalupe MICHELE'S 350.1.13.10 ity [facility] [place] [id number] [address] 2022-08-10 2022-08-10 Outpatient [facility] [id number] Univers 00:00:00 23:59:00 MARIA GUADALUPE ity [facility] 2022-03-08 2022-03-29 Hospital ER Quentin Mckeon [facility] [id number] [facility] St 22:22:00 13:40:00 Encounter Martha Conway [facility] 2022-03-08 2022-03-29 Inpatient ER ZORAIDA [facility] Medical ICU [id number] [facility] 22:22:00 13:40:00 VALENTINAMUNIRA 2022-03-27 2022-03-[address] [facility] [id number] 00:[facility] 00:00:00 Only B [facility] 2022-03-09 2022-03-[address] [facility] [id number] 00:00:00 00:00:00 [facility] 2020-12-05 2020-12-05 Transition Radha Paula 1.2.840.114 [id number] 00:00:00 00:00:00 of Care [place] 350.1.13.10 [place] 4.2.7.2.686 [id number] 403 2020-12-05 2020-12-05 Transition Radha Paula 1.2.840.114 [id number] Univers 00:00:00 00:00:00 of Care [place] Ingram 350.1.13.10 ity of [place] [id number] [facility] 403 Branch 2020-11-27 2020-12-04 [facility] Amelia Ziegler Alison Marley 1.2.840.1 14 [id number] 10:20:00 19:30:00 Encounter Kashif Strong Tamar 350.1.13.10 [facility] 4.2.7.2 .686 [id number] [facility] 2020-11-27 2020-12-04 [facility] Amelia Ziegler Alison Roach 1.2.840.1 [id number] [facility] 10:20:00 19:30:00 Encounter Kashif Strongy 350.1.13.10 ity of [facility] 4.2.7.2 .686 [place] [id number] [facility] 100 Branch 2020-11-27 2020-11-27 Emergency X Amelia ZIEGLER [facility] ERT [id number] Univers 10:20:00 10:20:00 ity of [facility] 2020-11-27 2020-11-27 Orders Doctor CLAIRE 1.2.840.114 [id number] 00:00:00 00:00:00 Only Unassigned, TAMAR 350.1.13.10 [place] [facility] 4.2.7.2.686 [id number] 009 2020-11-27 2020-11-27 Orders Doctor RANGEL 1.2.840.114 [id number] Univers 00:00:00 00:00:00 Only Unassigned, TAMAR 350.1.13.10 ity of [place] [facility] 4.2.7.2.686 Juni as [id number] [facility] 009 Branch 2020-11-14 2020-11-14 Transition Radha Paula 1.2.840.114 [id number] 00:00:00 00:00:00 of Care [place] In[place] 350.1.13.10 [place] 4.2.7.2.686 [id number] 403 2020-11-14 2020-11-14 Transition Radha Paula 1.2.840.114 [id number] Univers 00:00:00 00:00:00 of Care Lele Ingram 350.1.13.10 ity of [place] 4.2.7.2.686 Marisela etienne [id number] [facility] 403 Branch 2020-11-10 2020-11-13 [facility] 1.2.840. 114 [id number] 03:31:00 16:48:00 Encounter Clarence Bach 350.1.13.10 Amanda Daniels 4.2.7.2.686 [place] [id number] [id number] 2020-11-10 2020-11-13 [facility] 1.2.840. 114 [id number] [facility] 03:31:00 16:48:00 Encounter Clarence Bach 350.1.13.10 ity of Amanda Daniels 4.2.7.2.686 [facility] [id number] [facility] 080 Branch 2020-11-10 2020-11-10 Emergency X [facility] ERT [id number] Univers 03:31:00 03:31:00 [facility] Results Test Description Test Time Test Comments Results Result Comments Source POCT GLUCOSE (AUTOMATED) 2022-11-13 23:17:17 Test Item Value Reference Range Interpretation Comme nts POCT GLU (test code = 6393193352) 131 mg/dL 70-110 H Lab Interpretation (test code = 12201-0) Abnormal [facility] GLUCOSE (AUTOMATED)2022-11-13 17:14:43 Test Item Value Reference Range Interpretation Comments POCT GLU (test code = 5830079592) 112 mg/dL 70-110 H Lab Interpretation (test code = Abnormal 35517-1) [facility] GLUCOSE (AUTOMATED)2022-11-13 05:09:46 Test Item Value Reference Range Interpretation Comments POCT GLU (test code = 7973485423) 130 mg/dL 70-110 H Lab Interpretation (test code = Abnormal 51630-0) [facility] [id number] 23:34:29 Test Item Value Reference Range Interpretation Comments TSH (test code = 2.87 See_Comment Biotin has been 8640808933) reported to cau se a negative bias, interpret resul ts relative to dorie flaherty's use of biotin. [Automated mess age] The system [employer] generated this result transmitted ref erence range: 0.45 - 4 .70 mIU/L. The refe rence range was not u sed to interpret this result as normal/abnor mal. Lab Interpretation (test Normal code = 35827-1) [facility] [id number] 23:19:04 Test Item Value Reference Range Interpretation Comments FREE T4 (test code = 1.07 See_Comment [Autom ated message] 2377426834) The system [employer] generated this result transmitted ref erence range: 0.78 - 2 .20 ng/dL:. The ref erence range was not u sed to interpret this result as normal/abnor mal. Lab Interpretation (test Normal code = 04035-4) [facility]-07 19:19:07 Test Item Value Reference Range Interpretation Comments MAGNESIUM (test code = 5013585327) 2.6 mg/dL 1.7-2.4 H Lab Interpretation (test code = Abnormal 31216-3) [facility] METABOLIC PANEL (NA, K, CL, CO2, GLUCOSE, BUN, CREATININE, CA)2022-11-12 19:19:02 Test Item Value Reference Range Interpretation Comments NA (test code = 138 mmol/L 135-145 7372383923) K (test code = 4.5 mmol/L 3.5-5.0 1295724762) CL (test code = 101 mmol/L 98-108 9764603696) CO2 TOTAL (test code = 31 mmol/L 23-31 4322134906) AGAP (test code = 6 2-16 5620316439) BUN (test code = 57 mg/dL 7-23 H 8960619459) GLUCOSE (test code = 113 mg/dL 70-110 H 5764680791) CREATININE (test code = 0.90 mg/dL 0.50-1.04 6433382053) CALCIUM (test code = 8.5 mg/dL 8.6-10.6 L 3173948904) eGFR (test code = 61.4 mL/min/1.73m2 6965942055) CHRISTINE (test code = CHRISTINE) Association of [...] tests). Lab Interpretation Abnormal (test code = 59417-1) [facility].2022-11-11 22:32:36 Test Item Value Reference Range Interpretation Comments PH (test code = 2) 7.19 7.35-7.45 LL PCO2 (test code = 85 See_Comment H [Automate d message] 4111652685) The system [employer] generated this result transmitted ref erence range: 35 - 45 mmHg. The reference r crisipn was not used to interpret this result as normal/abnor mal. PO2 (test code = 454 See_Comment H [Automated message] 9005818102) The system [employer] generated this result transmitted ref erence range: 80 - 100 mmHg. The reference r crispin was not used to interpret this result as normal/abnor mal. HCO3 (test code = 32 See_Comment H [Automate d message] 6035870645) The system [employer] generated this result transmitted ref erence range: 22 - 26 mEq/L. The reference r crispin was not used to interpret this result as normal/abnor mal. BE (test code = 0.5 See_Comment [Automated message] 4170772783) The system [employer] generated this result transmitted ref erence range: -3.0 - 3 .0 mEq/L. The refe rence range was not u sed to interpret this result as normal/abnor mal. Lab Interpretation (test Abnormal code = 52303-6) [facility] GLU[facility]SE (AUTOMATED)2022-11-11 22:04:37 Test Item Value Reference Range Interpretation Comments POCT GLU (test code = 5840159435) 122 mg/dL 70-110 H Lab Interpretation (test code = Abnormal 13103-0) [facility] WITH [id number] 11:04:52 Test Item Value Reference Range Interpretation Comments WBC (test code = 16.98 See_Comment H [Automated 90-2) message] The system which generated this result transmit cristhian reference range : 4.30 - 11.10 10*3/?L. The reference range was not used to interpret this result as normal/abnormal . RBC (test code = 4.23 See_Comment [Automated 791-8) message] The system which generated this result transmit cristhian reference range : 3.93 - 5.25 10*6/?L. The reference range was not used to interpret this result as normal/abnormal . HGB (test code = 12.4 g/dL 11.6-15.0 718-7) HCT (test code = 38.1 % 35.7-45.2 4544-3) MCV (test code = 90.1 fL 80.6-95.5 787-2) MCH (test code = 29.3 pg 25.9-32.8 785-6) MCHC (test code = 32.5 g/dL 31.6-35.1 786-4) RDW-SD (test code = 47.5 fL 39.0-49.9 02976-9) RDW-CV (test code = 14.3 % 12.0-15.5 788-0) PLT (test code = 273 See_Comment [Automated 777-3) message] The system which generated this result transmit cristhian reference range : 166 - 358 10*3/ ?L. The reference range was not u sed to interpret th is result as normal/abnormal . MPV (test code = 9.6 fL 9.5-12.9 20213-4) NRBC/100 WBC (test 0.0 See_Comment [Automat ed code = 1075371828) message] The system which generated this result transmit cristhian reference range : 0.0 - 10.0 /100 WBCs. The reference range was not used to interpret this result as normal/abnormal . NRBC x10^3 (test code See_Comment [Auto mated = 4731941873) message] The system which generated this result transmit cristhian reference range : 10*3/?L. The reference range was not used to interpret this result as normal/abnormal . GRAN MAT (NEUT) % 86.9 % (test code = 770-8) IMM GRAN % (test code 1.50 % = 7454189465) LYMPH % (test code = 2.9 % 736-9) MONO % (test code = 8.0 % 5905-5) EOS % (test code = 0.3 % 713-8) BASO % (test code = 0.4 % 706-2) GRAN MAT x10^3(ANC) 14.76 10*3/uL 1.88-7.09 H (test code = 5072268420) IMM GRAN x10^3 (test 0.26 10*3/uL 0.00-0.06 H code = 7249080121) LYMPH x10^3 (test code 0.49 10*3/uL 1.32-3.29 L = 731-0) MONO x10^3 (test code 1.36 10*3/uL 0.33-0.92 H = 742-7) EOS x10^3 (test code = 0.05 10*3/uL 0.03-0.39 711-2) BASO x10^3 (test code 0.06 10*3/uL 0.01-0.07 = 704-7) Lab Interpretation Abnormal (test code = 18478-6) [facility] [id number] 10:57:32 Test Item Value Reference Range Interpretation Comments NT-proBNP (test code = 380 pg/mL <=125 H 7542302675) CHRISTINE (test code = CRHISTINE) Biotin has been reported to cause a negative bias, interpret results relative to patient's use of biotin. Lab Interpretation (test Abnormal code = 81825-2) [facility] 10:49:31 Test Item Value Reference Range Interpretation Comments MAGNESIUM (test code = 1931794801) 2.7 mg/dL 1.7-2.4 H Lab Interpretation (test code = Abnormal 05314-9) [facility] METABOLIC PANEL (91585)2022-11-11 10:49:11 Test Item Value Reference Range Interpretation Comments NA (test code = 137 mmol/L 135-145 8663650754) K (test code = 4.7 mmol/L 3.5-5.0 3014972805) CL (test code = 97 mmol/L 98-108 L 9612874083) CO2 TOTAL (test code = 32 mmol/L 23-31 H 1363691976) AGAP (test code = 8 2-16 7531304465) BUN (test code = 53 mg/dL 7-23 H 3239295165) GLUCOSE (test code = 130 mg/dL 70-110 H 1659595129) CREATININE (test code = 1.03 mg/dL 0.50-1.04 2715599493) TOTAL BILI (test code = 0.5 mg/dL 0.1-1.4 2145379595) CALCIUM (test code = 9.1 mg/dL 8.6-10.6 9219259973) T PROTEIN (test code = 6.7 g/dL 6.3-8.2 9997296022) ALBUMIN (test code = 3.5 g/dL 3.5-5.0 2520050332) ALK PHOS (test code = 106 U/L 34-122 4095442964) ALTv (test code = 32 U/L 5-35 1742-6) AST(SGOT) (test code = 49 U/L 13-40 H 0061902943) eGFR (test code = 52.5 mL/min/1.73m2 0653375727) CHRISTINE (test code = CHRISTINE) Association of [...] tests). Lab Interpretation Abnormal (test code = 00593-4) [facility]2022-[facility]-22 12:31:02 Test Item Value Reference Range Interpretation Comments MAGNESIUM (BEAKER) (test code = 2.0 mg/dL 1.6-2.6 627) BASIC METABOLIC [id number] 08:50:55 Test Item Value Reference Range Interpretation [...] appl icable for dialysis patien ts BLOOD [id number] 11:01:12 Test Item Value Reference Range Interpretation Comments CULTURE (BEAKER) (test No growth in 5 days code = 1095) SARS-COV2/RT-PCR ([facility])2022-03-30 11:31:45 Test Item Value Reference Range Interpretation Comments SARS-COV2/RT-PCR (test Negative Not Detected, Negative, code = 8011989) See external report for linked test SARS-COV-2 PERFORMING LAB [facility] (test code = 4460137) Negative result for this test determines that [...] of the Act.Fact Sheet for Healthcare Prov iders:https://www.[employer]/sites/default/files/product/documents/Fact_Sheet_HC _Dqlrvxzow_Wnia_KQYB-EhR-3.pdfFact Sheet for Healthcare Patients:https://www.[employer]/sites/default/files/product/docume nts/Ltta_Xiqjz_Dotgyszq_Qwdx_CWWQ-ZrY-0.pdfPerforming Laboratory:[facility].[place], [place] [address]LSQ, CHEST, 1 VIEW, NON [id number] 13:36:00 [facility] : 1950 Sex: FFINAL [...] opacities in the lungs bilaterally. Signed: Teddy Leblanceport Verified Date/Time: 03/29/2022 13:36:13 Reading Location: [facility] C013T Transitional Reading Room Electronically signedby: TEDDY LEBLANC MD on 03/29/2022 01:36 PM COMPREHENSIVE METABOLIC [id number] 05:29:56 Test Item Value Reference Range Interpretation [...] not appl icable for dialysis patien ts Facility Coordinator ID - [id number] 05:29:56 Test Item Value Reference Range Interpretation Comments MAGNESIUM (BEAKER) (test code = 2.1 mg/dL 1.6-2.6 627) Facility Coordinator ID - ADMINCBC W/PLT COUNT & AUTO [id number] 04:47:02 Test Item Value Reference Range Interpretation [...] PERCENT (BEAKER) (test code = 2801) SARS-CoV2/RT-PCR ([facility])2022-03-28 17:05:17 Test Item Value Reference Range Interpretation Comments SARS-COV2/RT-PCR Negative Negative The SARS-Co V-2 (test code = target nucleic acids 21659-5) are not detecte d in this specimen. [...] from individuals suspected of COVID-19 by the [facility] ider. SARS-COV-2 [facility] dical (test code = Rhrgbm9116 [facility] [place] [address]) [place] [address] ph: [phone] CHRISTINE (test code = This test has [...] revoked sooner. Fact Sheet for Healthcare Providers: https://www.[employer]/Documents/Xper t%20Xpress%20SARS%2 0CoV-2/Fact%20Sheet s/302-3802%20SARS-C OV-2%20HEALTHCARE%2 0PROVIDERS%20FACT%2 0SHEET.pdf Fact Sheet for Healthcare Patients: https://www.[employer]/Documents/Xper t%20Xpress%20SARS%2 0CoV-2/Fact%20Sheet s/302-3801%20SARS-C OV-2%20PATIENT%20FA CT%20SHEET.pdf [facility]2022-03-28 17:05:17 Test Item Value Reference Range Interpretation Comments SARS-COV2/RT-PCR Negative Negative The SARS-Co V-2 (test code = target nucleic acids 92808-1) are not detecte d in this specimen. [...] from individuals suspected of COVID-19 by the [facility] ider. SARS-COV-2 [facility] (test code = Mcftvj2297 [facility] [address] [address] ph: [phone] CHRISTINE (test code = This test has [...] revoked sooner. Fact Sheet for Healthcare Providers: https://www.[employer]/Documents/Xper t%20Xpress%20SARS%2 0CoV-2/Fact%20Sheet s/3023802%20SARS-C OV-2%20HEALTHCARE%2 0PROVIDERS%20FACT%2 0SHEET.pdf Fact Sheet for Healthcare Patients: https://www.[employer]/Documents/Xper t%20Xpress%20SARS%2 0CoV-2/Fact%20Sheet s/3023801%20SARS-C OV-2%20PATIENT%20FA CT%20SHEET.pdf [facility])2022-03-28 17:05:17 Test Item Value Reference Range Interpretation Comments SARS-COV2/RT-PCR Negative Negative The SARS-Co V-2 target (test code = nucleic acids a re not 7786222) detected in thi s specimen. Negat hermila [...] individuals dave pected of COVID-19 by the [facility] ide. SARS-COV-2 [facility] ([facility] code = 0411842) JUWAN Ferrara [address]ey: [phone] This test has been authorized by FDA [...] revoked sooner. Fact Sheet for Healthcare Providers: https://Apptive.[employer]arg[employer] m/Documents/Xpert%20Xpress%20SARS%20CoV-2/Fact%20Sheets/302-3802%66XFXO-MJE-7%20 HEALTHCARE%20PROVIDERS%20FACT%20SHEET.pdf Fact Sheet for Healthcare Patients: https://www.[employer]/Documents/Xpert%20Xp ress%20SARS%20CoV-2/Fact%20Sheets/302-3801%26JOVR-SJA-0%20PATIENT%20FACT%20SHEET .pdfRAD, CHEST, 1 VIEW, NON [id number] 07:46:00daily am portable [facility] : 1950 Sex: FFINAL [...] from prior exam. No pneumothorax identified.Signed: Hue Smithepcory Verified Date/Time: 03/28/2022 07:46:54 Reading Location: [address] Reading Room BLOOD [id number] 02:59:28 Test Item Value Reference Range Interpretation Comments CULTURE (BEAKER) (test No growth in 5 days code = 1095) The specimen volume collected for this blood culture was below the optimum (10 mL per bottle or 20 mL total). Use of lower volumes may adversely affect recovery and/or detection times of some organisms.POC-Glucose [id number] 12:54:47 Test Item Value Reference Range Interpretation Comments POC-Glucose Meter (test 120 mg/dL 70-110 H : TE STED AT [facility] code = 1538) [address] [facility], 770 [address]: Facility Coordinator/Techni ethel ID = [id number] for Luz Maria Pierson Lab Interpretation (test Abnormal code = 36481-3) [facility]-Glucose [id number] 12:54:47 Test Item Value Reference Range Interpretation Comments POC-Glucose Meter (test 120 mg/dL 70-110 H : TE STED AT [facility] code = 1538) [address] [facility], 770 30: Facility Coordinator/Techni ethel ID = [id number] for Luz Maria Pierson Lab Interpretation (test Abnormal code = 83897-6) [facility]-GLUCOSE [id number] 12:54:47 Test Item Value Reference Range Interpretation Comments POC-GLUCOSE METER 120 mg/dL 70-110 H : TESTED A T [facility] 6720 (BEAKER) (test code = [facility] Nilay [facility], 1538) [address]: Facility Coordinator/Techni ethel ID = [id number] for Luz Maria Morse RAD, CHEST, 1 VIEW, NON [id number] 12:39:00 [facility] : 1950 Sex: FFINAL [...] MDReport Verified Date/Time: 03/27/2022 12:39:33 Reading Location: [address] Reading Room POCT-GLUCOSE [id number] 12:35:59 Test Item Value Reference Range Interpretation Comments POC-GLUCOSE METER 91 mg/dL 70-110 : [facility] ([facility]) (test code = [facility], 153) [address]: Facility Coordinator/Techni ethel ID = [id number] for Lync h Catherine POCT-GLUCOSE [id number] 12:04:55 Test Item Value Reference Range Interpretation Comments POC-GLUCOSE METER 121 mg/dL 70-110 H : [facility] (test code = [facility], 1538) [address]: Facility Coordinator/Techni ethel ID = [id number] for IB RAHIM, SERKALEM POCT-GLUCOSE [id number] 11:56:34 Test Item Value Reference Range Interpretation Comments POC-GLUCOSE METER 121 mg/dL 70-110 H : TESTED A T [facility] 6720 ([facility]) (test code = [facility], [facility]) [address]: Facility Coordinator/Techni ethel ID = [id number] for IB RAHIM, SERKALEM POCT-GLUCOSE [id number] 11:18:21 Test Item Value Reference Range Interpretation Comments POC-GLUCOSE METER 115 mg/dL 70-110 H : Notified RN/MD: TESTED ([facility]) (test code AT [facility] [address] = 1538) [facility], [facility] 30: Facility Coordinator/Techni ethel ID = [id number] for SUGU , SHEENAMOL POCT-GLUCOSE [id number] 11:05:54 Test Item Value Reference Range Interpretation Comments POC-GLUCOSE METER 143 mg/dL 70-110 H : TESTED A T [facility] 6720 ([facility]) (test code = [facility], [facility]) [address]: Facility Coordinator/Techni ethel ID = [id number] for MA RIN, BRITTANY POCT-GLUCOSE [id number] 10:50:59 Test Item Value Reference Range Interpretation Comments POC-GLUCOSE METER 120 mg/dL 70-110 H : TESTED A T [facility] 6720 ([facility]) (test code = [facility], [facility]) [address]: Facility Coordinator/Techni ethel ID = [id number] for MA RIN, BRITTANY POCT-GLUCOSE [id number] 08:57:10 Test Item Value Reference Range Interpretation Comments POC-GLUCOSE METER 96 mg/dL 70-110 : TESTED A T [facility] 6720 ([facility]) (test code = [facility], [facility]) [address]: Facility Coordinator/Techni ethel ID = [id number] for LLOY D, TIKEYA POCT-GLUCOSE [id number] 08:40:45 Test Item Value Reference Range Interpretation Comments POC-GLUCOSE METER 113 mg/dL 70-110 H : TESTED A T [facility] 6720 (BEAKER) (test code = [facility], [facility]) [address]: Facility Coordinator/Techni ethel ID = [id number] for LL OYD, TIKEYA RAD, CHEST, 1 VIEW, NON [id number] 07:47:00downtime order [facility] : 1950 Sex: [...] Signed: Hue Smith MDReport Verified Date/Time: 03/27/2022 07:47:18 Reading Location: [address] Reading Room RAD, CHEST, 1 VIEW, NON [id number] 18:31:0024T-54 [facility] : 1950 Sex: [...] right chest wall again noted. Signed: Katarzyna Jimenezort Verified Date/Time: 03/26/2022 18:31:51 RAD, CHEST, 1 VIEW, NON [id number] 08:42:00downtime order [facility] : 1950 Sex: FFINAL [...] 03/26/2022 08:42:21 RAD, CHEST, 1 VIEW, NON [id number] 09:24:00downtime order [facility] : 1950 Sex: FFINAL [...] minimal right pneumothorax identified. Signed: Hue Smith MDReport Verified Date/Time: 03/25/2022 09:24:56 Reading Location: [address] Reading Room RAD, CHEST, 1 VIEW, NON [id number] 09:19:00downtime order [facility] : 1950 Sex: FFINAL REPORT RAD, CHEST, 1 VIEW, NON DEPT INDICATION: eval pneumothorax, am portable COMPARISON: Prior day's exam TECHNIQUE: Portable frontal view of the chest. FINDINGS: Support Linesand Devices: Stable. Lungs and pleura: Unchanged airspace and pleural opacities. Trace right-sided pneumothorax. Heart and mediastinum: Stable contours. Stable surgical changes. Additional findings: The patient is rotated to the left. IMPRESSION: 1.Trace right-sided pneumothorax with right chest tube in place.2.Extensive subcutaneous emphysema in the right chest wall. Signed: Hue Smith Verified Date/Time: 03/24/2022 09:19:33 Reading Location: [address] Reading Room RAD, CHEST, 1 VIEW, NON [id number] 08:13:00downtime order [facility] : 1950 Sex: FFINAL [...] Guillen Verified Date/Time: 03/23/2022 08:13:11 Reading Location: [facility] C013X [facility] Reading Room RAD, CHEST, 1 VIEW, NON [id number] 08:07:00downtime order [facility] : 1950 Sex: FFINAL [...] 03/22/2022 08:07:12 RAD, CHEST, 1 VIEW, NON [id number] 13:49:00 [facility] : 1950 Sex: [...] CHEST, 1 VIEW, NON DEPT 2022-03-20 15:27:00 [facility] : 1950 Sex: FFINAL [...] 1 VIEW, NON DEPT 2022-03-20 13:35:00downtime order [facility] : 1950 Sex: FFINAL [...] 03/20/2022 01:35 PMRAD, CHEST, 1 VIEW, NON [id number] 15:32:00 [facility] : 1950 Sex: FFINAL [...] emphysema similar in appearance. Signed: Henrik Arceo MDReport Verified Date/Time: 03/19/2022 15:32:10 RAD, CHEST, 1 VIEW, NON [id number] 13:27:00downtime order [facility] : 1950 Sex: FFINAL [...] 03/19/2022 13:27:14 RAD, CHEST, 1 VIEW, NON [id number] 17:24:00 [facility] DOB: 1950 Sex: FFINAL REPORT TECHNIQUE: Frontal view [...] 03/18/2022 17:24:25 RAD, CHEST, 1 VIEW, NON [id number] 14:01:00 [facility] : 1950 Sex: FFINAL [...] increase in hazy right basilar opacity. Signed: Eduardo Chávez MDReport Verified Date/Time: 03/16 14:01:11 RAD, CHEST, 1 VIEW, NON [id number] 10:58:00 [facility] : 1950 Sex: FFINAL [...] effusion. New small right pleural effusion. Signed: Eduardo Chávez MDReport Verified Date/Time: 03/15/2022 10:58:39 CT, CHEST, WITHOUT [id number] 08:54:00 [facility] : 1950 Sex: [...] MDReport Verified Date/Time: 03/14/2022 08:54:40 Reading Location: [facility] Diagnostic Imaging Reading Room - [place] [address] RAD, CHEST, 1 VIEW, NON [id number] 18:07:00 [facility] : 1950 Sex: FFINAL [...] before. Persistent small left pleural effusion. Signed: Eduardo Chávez MDReport Verified Date/Time: 03/13/2022 18:07:38 RAD, CHEST, 1 VIEW, NON DEPT 2022-03-13 13:42:00 [facility] : 1950 Sex: FFINAL [...] Mcdonough Verified Date/Time: 03/13/2022 13:42:55 Reading Location: [address] Reading Room RAD, CHEST, 1 VIEW, NON [id number] 15:21:00 [facility] : 1950 Sex: FFINAL [...] cardiomediastinal silhouette is magnified by technique. Signed: Mcdonough, Trent MDReport Verified Date/Time: 03/12/2022 15:21:00 Reading Location: [address] Reading Room CT, CHEST, WITHOUT [id number] 15:13:00pt with Knemothorax and sub emphysema. 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 Age-indeterminate. Signed: Eugene Marsh Verified Date/Time: 03/12/2022 15:13:01 RAD, CHEST, 1 VIEW, NON [id number] 09:28:00 [facility] : 1950 Sex: FFINAL REPORT CLINICAL HISTORY: Hemothorax Follow up AM portable to be done 03/12/22 TECHNIQUE: 1 view of the chest. COMPARISON: 03/11/2022 IMPRESSION: Severe right chest wall subcutaneous emphysema is again seen. The small right pneumothorax appears decreased. Right chest tube is again seen. Left lung base pleural parenchymal opacity is unchanged. The cardiomediastinal silhouette is magnified by technique. Signed: Trent Mcdonough Verified Date/Time: 03/12/2022 09:28:54 Reading Location: [address] Reading Room RAD, CHEST, 1 VIEW, NON [id number] 20:25:00 [facility] : 1950 Sex: FFINAL [...] emphysema of the right chest. Signed: Navdeep Jamisoncory VerifiedDate/Time: 03/11/2022 20:25:10 RAD, CHEST, 1 VIEW, NON DEPT 2022-03-11 12:49:00 [facility] : 1950 Sex: FFINAL [...] Mcdonough Verified Date/Time: 03/11/2022 12:49:10 Reading Location: [address] Reading Room RAD, CHEST, 1 VIEW, NON [id number] 04:50:00 [facility] : 1950 Sex: FFINAL [...] tissue emphysema on the right. Signed: Navdeep Jamiosn Verified Date/Time: 03/11/2022 04:50:39 U/S, ABDOMINAL, [id number] 00:56:00Abdomen limited area? Add comment if clarification is needed.->Liver Reason for exam:->transaminitis [facility] : 1950 Sex: FFINAL [...] 03/10/2022 00:56:46 RAD, CHEST, 1 VIEW, NON [id number] 23:31:00[facility] : 1950 Sex: [...] Signed: Melodie Begum Verified Date/Time: 03/09/2022 23:31:07 [id number] 20:29:49 Test Item Value Reference Range Interpretation Comments PARTIAL THROMBOPLASTIN TIME 60.3 seconds 22.5-36.0 H (BEAKER) (test code = 760) HIGH SENSITIVITY TROPONIN [id number] 18:55:40 Test Item Value Reference Range Interpretation Comments HIGH SENSITIVITY 73707 pg/ml See_Comment HH [Automated message] TROPONIN I (test code The sy stem which = [id number]) generated this result transmitted ref erence range: <=17. Th e reference range was not used to int erpret this result as normal/abnormal . Facility Coordinator ID - LEONCIO LThe SHAKER TENDER STAT High Sensitivity Troponin-I results should be used in conjunction with other diagnostic information such as ECG, clinical observations and information, and patient symptoms to aid in the diagnosis of MO.Facility Coordinator ID - LEONCIO L2D Echo W/Doppler(CW/PW/Color)2022-03-09 17:54:15Ejection FractionSLEH ECHO [facility] Echo W/Doppler(CW/PW/Color)2022-03-09 17:54:15Ejection [facility]SLEH [facility] 13:26:41 Test Item Value Reference Range Interpretation Comments PARTIAL THROMBOPLASTIN TIME 47.1 seconds 22.5-36.0 H (BEAKER) (test code = 760) HIGH SENSITIVITY TROPONIN [id number] 13:06:27 Test Item Value Reference Range Interpretation Comments HIGH SENSITIVITY 79941 pg/ml See_Comment HH [Automated message] TROPONIN I (test code The sy stem which = [id number]) generated this result transmitted ref erence range: <=17. Th e reference range was not used to int erpret this result as normal/abnormal . Mynor ALONSO DThe SHAKER TENDER STAT High Sensitivity Troponin-I results should be used in conjunction with other diagnostic information such as ECG, clinical observations and information, and patient symptoms to aid in the diagnosis of MO.Mynor ALONSO DHEPATITIS PANEL, [id number] 11:49:42 Test Item Value Reference Range Interpretation Comments HEPATITIS A IGM ANTIBODY (BEAKER) Nonreactive Nonreactive (test code = 498) HEPATITIS B CORE IGM ANTIBODY Nonreactive Nonreactive (BEAKER) (test code = 645) HEPATITIS C ANTIBODY (BEAKER) Nonreactive Nonreactive (test code = 367) HEPATITIS B SURFACE ANTIGEN (2) Nonreactive Nonreactive (BEAKER) (test code = 2585) Mynor ALONSO DLIPID [id number] 11:01:28 Test Item Value Reference Range Interpretation [...] Borderline 130-159 High 160-189 Very High >=190 Facility Coordinator SHREE ALONSO DPOCT-GLUCOSE [id number] 07:36:41 Test Item Value Reference Range Interpretation Comments POC-GLUCOSE METER 123 mg/dL 70-110 H : TESTED A T [facility] 6720 (BEAKER) (test code = [place], 1538) [address]: Facility Coordinator/Techni ethel ID = [id number] for Catherine Damian RAD, CHEST, 1 VIEW, NON [id number] 07:05:00Reason for exam:->f/u R PTXShould this be performed at the bedside?->Yes [facility] 1950 Sex: FFINAL [...] Signed: Rubi Cerda Verified Date/Time: 03/09/2022 07:05:49 [id number] 06:21:45 Test Item Value Reference Range Interpretation Comments FERRITIN (JATINDER) (test code = 78.90 ng/mL 5.00-275.00 361) Facility Coordinator ID - PIAYA LVITAMIN [id number] 06:21:44 Test Item Value Reference Range Interpretation Comments VITAMIN B12 (BEAKER) (test code = 1093 pg/mL 213-816 H 774) Facility Coordinator ID - PIAYA LHIGH SENSITIVITY TROPONIN [id number] 05:02:11 Test Item Value Reference Range Interpretation Comments HIGH SENSITIVITY 31119 pg/ml See_Comment HH [Automated message] TROPONIN I (test code The sy stem which = [id number]) generated this result transmitted ref erence range: <=17. Th e reference range was not used to int erpret this result as normal/abnormal . Facility Coordinator ID - LEONCIO LThe SHAKER TENDER STAT High Sensitivity Troponin-I results should be used in conjunction with other diagnostic information such as ECG, clinical observations and information, and patient symptoms to aid in the diagnosis of MO.Facility Coordinator ID - LEONCIO LCOMPREHENSIVE METABOLIC [id number] 04:16:10 Test Item Value Reference Range Interpretation [...] not appl icable for dialysis patien ts Facility Coordinator ID Juan FANG [id number] 04:16:10 Test Item Value Reference Range Interpretation Comments MAGNESIUM (BEAKER) (test code = 1.8 mg/dL 1.6-2.6 627) Facility Coordinator ID - LEONCIO [id number] 04:14:40 Test Item Value Reference Range Interpretation Comments PARTIAL THROMBOPLASTIN TIME 177.0 seconds 22.5-36.0 HH (BEAKER) (test code = 760) B-TYPE NATRIURETIC FACTOR (BNP)2022-03-09 04:01:03 Test Item Value Reference Range Interpretation Comments B-TYPE NATRIURETIC PEPTIDE (BEAKER) 875 pg/mL 0-100 H (test code = 700) Facility Coordinator ID - LEONCIO LCBC W/PLT COUNT & AUTO [id number] 03:53:57 Test Item Value Reference Range Interpretation [...] = 2801) RAD, CHEST, 1 VIEW, NON [id number] 02:56:00Reason for exam:- >pneumothoraxShould this be performed at the bedside?->Yes [facility] 1950 Sex: FFINAL [...] the right chest wall.. Signed: Navdeep Jamison MDReport Verified Date/Time: 03/09/2022 02:56:56 IRON, TIBC, % SAT. (WITHOUT FERRITIN) 2022-03-09 02:13:25 Test Item Value Reference Range Interpretation Comments IRON (BEAKER) (test code = 547) 49.0 ug/dL 40.0-160.0 TOTAL IRON BINDING CAPACITY 285 ug/dL 250-450 (BEAKER) (test code = 769) IRON % SATURATION (2) (BEAKER) 17 % 20-55 L (test code = 2590) Facility Coordinator ID - PIKULDEEP [id number] 01:11:36 Test Item Value Reference Range Interpretation Comments PARTIAL THROMBOPLASTIN TIME 28.0 seconds 22.5-36.0 (BEAKER) (test code = 760) PROTHROMBIN TIME/[id number] 01:11:00 Test Item Value Reference Range Interpretation Comments PROTIME (BEAKER) 15.2 seconds 11.9-14.2 H (test code = 759) INR (BEAKER) (test 1.23 See_Comment [Automat ed message] code = 370) The system [employer] generated this result transmitted ref erence range: <=5.90. The reference range was not used to int erpret this result as normal/abnormal . RECOMMENDED COUMADIN/WARFARIN INR THERAPY RANGESSTANDARD DOSE: 2.0 - 3.0 Includes: PROPHYLAXIS for venous thrombosis, systemic embolization; TREATMENT for venous thrombosis and/or pulmonary embolus.HIGH RISK: Target INR is 2.5-3.5 for patients with mechanical heart valves.HIGH SENSITIVITY TROPONIN [id number] 00:51:17 Test Item Value Reference Range Interpretation Comments HIGH SENSITIVITY 8303 pg/ml See_Comment HH [Automated message] TROPONIN I (test code The sy stem which = [id number]) generated this result transmitted ref erence range: <=17. Th e reference range was not used to int erpret this result as normal/abnormal . Facility Coordinator ID - LEONCIO LThe SHAKER TENDER STAT High Sensitivity Troponin-I results should be used in conjunction with other diagnostic information such as ECG, clinical observations and information, and patient symptoms to aid in the diagnosis of MO.Facility Coordinator ID - PIAYA LCOMPREHENSIVE METABOLIC [id number] 00:45:53 Test Item Value Reference Range Interpretation [...] not appl icable for dialysis patien ts Facility Coordinator ID - PIAYA [id number] 00:45:52 Test Item Value Reference Range Interpretation Comments MAGNESIUM (BEAKER) 1.9 mg/dL 1.6-2.6 Specimen slightly (test code = 627) hemolyzed Facility Coordinator ID - EMMANUELOperator ID - LEONCIO LPOCT-GLUCOSE [id number] 00:33:58 Test Item Value Reference Range Interpretation Comments POC-GLUCOSE METER 102 mg/dL 70-110 : TESTED A T [facility] 6720 (BEAKER) (test code = CAMILA [place] [facility], 1538) [address]: Facility Coordinator/Techni ethel ID = [id number] for Shahana Germain CBC W/PLT COUNT & AUTO [id number] 00:25:04 Test Item Value Reference Range Interpretation [...] (BEAKER) (test code = 2801) LACTIC ACID, [id number] 00:22:31 Test Item Value Reference Range Interpretation Comments LACTATE BLOOD VENOUS 1.06 mmol/L 0.50-2.20 Specime n slightly (2) (BEAKER) (test hemolyzed code = 5673) Facility Coordinator ID - EMMANUELBLOOD GAS, [id number] 23:52:32 Test Item Value Reference Range Interpretation [...] (BEAKER) (test code = 1819) 28.0 POCT-GLUCOSE [id number] 12:15:00 Test Item Value Reference Range Interpretation Comments POC-GLUCOSE METER 122 mg/dL 70-110 H : TESTED A T [facility] 6720 (BEAKER) (test code = [facility], 1538) [address]: Facility Coordinator/Techni ethel ID = [id number] for BALAJI HOGAN POCT-GLUCOSE [id number] 07:43:00 Test Item Value Reference Range Interpretation Comments POC-GLUCOSE METER 81 mg/dL 70-110 : TESTED A T [facility] 6720 (BEAKER) (test code = [facility] [employer] [facility], 1538) 178[address]: Facility Coordinator/Techni ethel ID = [id number] for BALAJI JACK COMPREHENSIVE METABOLIC [id number] 07:11:00 Test Item Value Reference Range Interpretation [...] S NOT APPLICABLE FOR DIALYSIS PATIEN TS. Facility Coordinator ID - KEVIN [id number] 07:11:00 Test Item Value Reference Range Interpretation Comments MAGNESIUM (BEAKER) (test code = 2.3 mg/dL 1.6-2.6 627) Facility Coordinator ID - KEVIN [id number] 07:11:00 Test Item Value Reference Range Interpretation Comments PHOSPHORUS (BEAKER) (test code = 3.8 mg/dL 2.3-4.7 604) Facility Coordinator ID - KEVIN MCALCIUM, [id number] 06:48:00 Test Item Value Reference Range Interpretation Comments CALCIUM IONIZED (BEAKER) (test 1.25 mmol/L 1.12-1.27 code = 698) PH, BLOOD (BEAKER) (test code = 7.29 1810) CBC W/PLT COUNT & AUTO [id number] 06:45:00 Test Item Value Reference Range Interpretation [...] PERCENT (BEAKER) (test code = 2801) POCT-GLUCOSE [id number] 21:16:00 Test Item Value Reference Range Interpretation Comments POC-GLUCOSE METER 103 mg/dL 70-110 : TESTED A T [facility] 6720 (BEAKER) (test code = [facility], 153) 70869: Facility Coordinator/Techni ethel ID = [id number] for GIL PIERRE POCT-GLUCOSE [id number] 17:06:00 Test Item Value Reference Range Interpretation Comments POC-GLUCOSE METER 137 mg/dL 70-110 H : TESTED A T [facility] 6720 (BEAKER) (test code = [place] [facility] [place], 1538) 668[address]: Facility Coordinator/Techni ethel ID = [id number] for OR BALAJI BESS POCT-GLUCOSE [id number] 12:31:00 Test Item Value Reference Range Interpretation Comments POC-GLUCOSE METER 121 mg/dL 70-110 H : TESTED A T [facility] 6720 (BEAKER) (test code = [facility] [employer] [place], 1538) 034[address]: Facility Coordinator/Techni ethel ID = [id number] for OR BALAJI BESS POCT-GLUCOSE [id number] 08:27:00 Test Item Value Reference Range Interpretation Comments POC-GLUCOSE METER 81 mg/dL 70-110 : TESTED A T [facility] 6720 (BEAKER) (test code = [facility], 1538) 692[address]: Facility Coordinator/Techni ethel ID = [id number] for ORPH BALAJI GARCIA COMPREHENSIVE METABOLIC [id number] 07:14:00 Test Item Value Reference Range Interpretation [...] S NOT APPLICABLE FOR DIALYSIS PATIEN TS. Facility Coordinator ID - LEONCIO [id number] 07:14:00 Test Item Value Reference Range Interpretation Comments MAGNESIUM (BEAKER) (test code = 2.0 mg/dL 1.6-2.6 627) Facility Coordinator ID - LEONCIO [id number] 07:14:00 Test Item Value Reference Range Interpretation Comments PHOSPHORUS (BEAKER) (test code = 3.1 mg/dL 2.3-4.7 604) Facility Coordinator ID - LEONCIO LCALCIUM, [id number] 06:30:00 Test Item Value Reference Range Interpretation Comments CALCIUM IONIZED (BEAKER) (test 1.22 mmol/L 1.12-1.27 code = 698) PH, BLOOD (BEAKER) (test code = 7.32 1810) CBC W/PLT COUNT & AUTO [id number] 06:18:00 Test Item Value Reference Range Interpretation [...] PERCENT (BEAKER) (test code = 2801) POCT-GLUCOSE [id number] 21:58:00 Test Item Value Reference Range Interpretation Comments POC-GLUCOSE METER 206 mg/dL 70-110 H : TESTED A T [facility] 6720 (BEAKER) (test code = [facility] [employer] [facility], 153) 46538: Facility Coordinator/Techni ethel ID = [id number] for Re yes, Sairy POCT-GLUCOSE [id number] 17:15:00 Test Item Value Reference Range Interpretation Comments POC-GLUCOSE METER 114 mg/dL 70-110 H : TESTED A T [facility] 6720 (BEAKER) (test code = [facility] [employer] [facility], 153) 54307: Facility Coordinator/Techni ethel ID = [id number] for ULISES SCHMITZ POCT-GLUCOSE [id number] 12:21:00 Test Item Value Reference Range Interpretation Comments POC-GLUCOSE METER 135 mg/dL 70-110 H : TESTED A T [facility] 6720 (BEAKER) (test code = CAMILA [place] [facility], 1538) 70070: Facility Coordinator/Techni ethel ID = [id number] for ULISES SCHMITZ POCT-GLUCOSE [id number] 07:54:00 Test Item Value Reference Range Interpretation Comments POC-GLUCOSE METER 124 mg/dL 70-110 H : TESTED A T [facility] 6720 (BEAKER) (test code = [place], 1538) 177[address]: Facility Coordinator/Techni ethel ID = [id number] for ULISES SCHMITZ RAD, CHEST, 1 VIEW, NON [id number] 07:15:00Reason for exam:->eval PNXShould this be performed at the bedside?->Yes [facility] : 1950 Sex: FFINAL REPORT RAD, CHEST, 1 VIEW, NON DEPT INDICATION: eval PNX COMPARISON: Prior day's exam FINDINGS: Portable frontal view of the chest. IMPRESSION: Support Lines: Right thoracostomy tube has been removed. Lungs and pleura: No consolidation. Trace left effusion. No pneumothorax.Heartand mediastinum: Stable contours. Additional findings: None. Signed: JR Evans Robert MDReport Verified Date/Time: 12/17/2020 07:15:57 Reading Location: [facility] Radiology Reading Room CALCIUM, [id number] 06:45:00 Test Item Value Reference Range Interpretation Comments CALCIUM IONIZED (BEAKER) (test 1.23 mmol/L 1.12-1.27 code = 698) PH, BLOOD (BEAKER) (test code = 7.39 1810) COMPREHENSIVE METABOLIC [id number] 06:36:00 Test Item Value Reference Range Interpretation [...] S NOT APPLICABLE FOR DIALYSIS PATIEN TS. Facility Coordinator ID - LATA [id number] 06:36:00 Test Item Value Reference Range Interpretation Comments MAGNESIUM (BEAKER) (test code = 2.0 mg/dL 1.6-2.6 627) Facility Coordinator ID - LATA [id number] 06:36:00 Test Item Value Reference Range Interpretation Comments PHOSPHORUS (BEAKER) (test code = 2.6 mg/dL 2.3-4.7 604) Facility Coordinator ID - LATA WCBC W/PLT COUNT & AUTO [id number] 05:59:00 Test Item Value Reference Range Interpretation [...] PERCENT (BEAKER) (test code = 2801) POCT-GLUCOSE [id number] 21:05:00 Test Item Value Reference Range Interpretation Comments POC-GLUCOSE METER 134 mg/dL 70-110 H : TESTED A T [facility] 6720 ([facility] (test code = [facility], 1538) 795[address]: Facility Coordinator/Techni ethel ID = [id number] for [place] POCT-GLUCOSE [id number] 17:20:00 Test Item Value Reference Range Interpretation Comments POC-GLUCOSE METER 131 mg/dL 70-110 H : TESTED A T [facility] 6720 ([employer]) (test code = [facility], 1538) 53842: Facility Coordinator/Techni ethel ID = [id number] for BEATRIZ HN, ULISES POCT-GLUCOSE [id number] 12:22:00 Test Item Value Reference Range Interpretation Comments POC-GLUCOSE METER 159 mg/dL 70-110 H : TESTED A T [facility] 6720 ([employer]) (test code = [facility], 1538) 28488: Facility Coordinator/Techni ethel ID = [id number] for BEATRIZ HN, ULISES RAD, CHEST, 1 VIEW, NON [id number] 07:50:00Reason for exam:->eval PNXShould this be performed at the bedside?->Yes [facility]NI : 1950 Sex: FFINAL REPORT History: Pneumothorax. [...] Downing Verified Date/Time: 12/16/2020 07:50:48 Reading Location: [address] Transitional Reading Room POCT-GLUCOSE [id number] 07:42:00 Test Item Value Reference Range Interpretation Comments POC-GLUCOSE METER 124 mg/dL 70-110 H : TESTED A T [facility] 6720 (BEAKER) (test code = CAMILA [place] [facility], 1538) 76210: Facility Coordinator/Techni ethel ID = [id number] for BEATRIZ TRENT ULISES COMPREHENSIVE METABOLIC [id number] 05:29:00 Test Item Value Reference Range Interpretation [...] S NOT APPLICABLE FOR DIALYSIS PATIEN TS. Facility Coordinator ID - LATA [id number] 05:29:00 Test Item Value Reference Range Interpretation Comments MAGNESIUM (BEAKER) (test code = 2.1 mg/dL 1.6-2.6 627) Facility Coordinator ID Juan GUIDO [id number] 05:29:00 Test Item Value Reference Range Interpretation Comments PHOSPHORUS (BEAKER) (test code = 3.1 mg/dL 2.3-4.7 604) Facility Coordinator ID Juan GUIDO WCBC (HEMOGRAM ONLY)2020-12-16 05:18:00 [...] = 413) RAD, CHEST, 1 VIEW, NON [id number] 03:15:00Reason for exam:- >pnuemothoraxShould this be performed at the bedside?->Yes [facility] : 1950 Sex: FFINAL [...] pneumothorax.The cardiomediastinal contours are stable. Signed: Devante Mckenzieday [facility] Verified Date/Time: 12/16/2020 03:15:49 POCT-GLUCOSE [id number] 21:17:00 Test Item Value Reference Range Interpretation Comments POC-GLUCOSE METER 82 mg/dL 70-110 : TESTED A T [facility] 6720 (BEAKER) (test code = [place], 1538) 075[address]: Facility Coordinator/Techni ethel ID = [id number] for Reilly ez, [place] POCT-GLUCOSE [id number] 16:59:00 Test Item Value Reference Range Interpretation Comments POC-GLUCOSE METER 145 mg/dL 70-110 H : Notified RN/MD: (JATINDER) (test code = TESTED AT [facility] 6720 1538) [place], [address]: Facility Coordinator/Techni ethel ID = [id number] for MEKHI HARRIS POCT-GLUCOSE [id number] 13:21:00 Test Item Value Reference Range Interpretation Comments POC-GLUCOSE METER 116 mg/dL 70-110 H : TESTED A T [facility] 6720 (JATINDER) (test code = CAMILA [place] [facility], 1538) 32510: Facility Coordinator/Techni ethel ID = [id number] for Benton rdMichaela RAD, CHEST, 1 VIEW, NON [id number] 12:07:00Reason for exam:->PTXShould this be performed at the bedside?->Yes [facility] : 1950 Sex: FFINAL [...] Fernandez Verified Date/Time: 12/15/2020 12:07:16 Reading Location: [facility] C013X Ortho Consult Reading Room BLOOD GAS, [id number] 11:16:00 Test Item Value Reference Range Interpretation [...] (BEAKER) (test code = 1819) 28.0 POCT-GLUCOSE [id number] 08:19:00 Test Item Value Reference Range Interpretation Comments POC-GLUCOSE METER 116 mg/dL 70-110 H : TESTED A T [facility] 6720 (BEAKER) (test code [facility], = 1538) 13024: Facility Coordinator/Techni ethel ID = [id number] for Feng delgado (contract), [facility] francisco javier COMPREHENSIVE METABOLIC [id number] 05:46:00 Test Item Value Reference Range Interpretation [...] S NOT APPLICABLE FOR DIALYSIS PATIEN TS. Facility Coordinator ID - [id number] 05:46:00 Test Item Value Reference Range Interpretation Comments MAGNESIUM (BEAKER) (test code = 1.9 mg/dL 1.6-2.6 627) Facility Coordinator ID - [id number] 05:46:00 Test Item Value Reference Range Interpretation Comments PHOSPHORUS (BEAKER) (test code = 3.0 mg/dL 2.3-4.7 604) Facility Coordinator ID - EDASIRAD, CHEST, 1 VIEW, NON [id number] 05:32:00Reason for exam:->eval PNXShould this be performed at the bedside?->Yes [facility] : 1950 Sex: FFINAL [...] Jamison MDReport Verified Date/Time: 12/15/2020 05:32:54 IUM, [id number] 05:14:00 Test Item Value Reference Range Interpretation [...] (BEAKER) (test code = 413) BLOOD GAS, [id number] 01:14:00 Test Item Value Reference Range Interpretation [...] (test 37.0 code = 1818) RESPIRATORY PANEL [id number] 00:01:00 Test Item Value Reference Range Interpretation [...] decisions. This sample was tested at the [facility] using the [employer]Array Respiratory Panel. It is FDA cleared and has been verified and approved by the [facility] for clinical use on nasopharyngeal swab specimens.The performance of the FilmArrayRP has not been established in individuals who received influenza vaccine. Recent administration of a nasal influenza vaccine may cause false positive results for Influenza A and/orInfluenza B.SARS-COV2/RT-PCR ([facility])2020-12-14 23:51:00 Test Item Value Reference Range Interpretation Comments SARS-COV2/RT-PCR Negative Negative The SARS-Co V-2 target (test code = 3616078) nuclei c acids are not detected in [...] Xpress SARS-CoV-2/Flu/RSV by their healthcareprovider. Results from [facility] Xpert Xpress SARS-CoV-2/Flu/RSV test should be correlated [...] of the Act.Fact Sheet for Healthcare Providers:https ://www.[employer]/Documents/Xpert%20Xpress%20SARS%20CoV-2/Fact%20Sheets/302-390 2%56KUXY-YYV-0%20HEALTHCARE%20PROVIDERS%20FACT%20SHEET.pdfFact Sheet for Healthcare Patients:https://www.[employer]/Docum ents/Xpert%20Xpress%20SARS%20Cov-2/Fact%20Sheets/302-3801%01VSGI-IPA-8%20PATIENT %20FACT%20SHEET.pdfTSH/FREE T4 IF [id number] 22:33:00 Test Item Value Reference Range Interpretation Comments THYROID STIMULATING HORMONE 2.265 uIU/mL 0.350-4.940 (BEAKER) (test code = 772) Facility Coordinator ID - [id number] 22:20:00 Test Item Value Reference Range Interpretation Comments PROCALCITONIN (BEAKER) (test code 0.23 ng/mL <0.05 H = 3036) SEPSIS RISK (ng/mL)Low: 0.05-0.50Intermediate: 0.51-2.00High: >=2.01MAGNESIUM 2020-12-14 22:12:00 Test Item Value Reference Range Interpretation Comments MAGNESIUM (BEAKER) 2.0 mg/dL 1.6-2.6 Specimen slightly (test code = 627) hemolyzed Facility Coordinator ID - [id number] 22:12:00 Test Item Value Reference Range Interpretation Comments PHOSPHORUS (BEAKER) 4.5 mg/dL 2.3-4.7 Specimen slightly (test code = 604) hemolyzed Facility Coordinator ID - ADMINCOMPREHENSIVE METABOLIC [id number] 22:12:00 Test Item Value Reference Range Interpretation [...] S NOT APPLICABLE FOR DIALYSIS PATIEN TS. Facility Coordinator ID - ADMINC-REACTIVE [id number] 22:12:00 Test Item Value Reference Range Interpretation Comments C-REACTIVE PROTEIN (BEAKER) (test 0.86 mg/dL 0.00-0.50 H code = 676) Facility Coordinator ID - ADMINLACTIC ACID, [id number] 22:07:00 Test Item Value Reference Range Interpretation Comments LACTATE BLOOD VENOUS (2) (BEAKER) 1.86 mmol/L 0.50-2.20 (test code = 2872) Facility Coordinator ID - ADMINPOCT-GLUCOSE [id number] 21:53:00 Test Item Value Reference Range Interpretation Comments POC-GLUCOSE METER 89 mg/dL 70-110 : [facility] ([facility] (test code = [place], 1538) [address]: Facility Coordinator/Techni ethel ID = [id number] for Elsi Diaz CBC (HEMOGRAM ONLY)2020-12-14 21:53:00 [...] (BEAKER) (test code = 413) BLOOD GAS, [id number] 21:49:00 Test Item Value Reference Range Interpretation [...] (BEAKER) (test code = 1819) 40.0 CALCIUM, [id number] 21:48:00 Test Item Value Reference Range Interpretation Comments CALCIUM IONIZED (BEAKER) (test 1.18 mmol/L 1.12-1.27 code = 698) PH, BLOOD (BEAKER) (test code = 7.22 1810) RAD, CHEST, 1 VIEW, NON [id number] 20:50:00Reason for exam:->chest tube placementShould this be performed at the bedside?->Yes [facility] 1950 Sex: FFINAL [...] post right chest tube placement. Signed: Romeo Nguyen Verified Date/Time: 12/14/2020 20:50:14 Reading Location: [facility] C013W Consult Reading Room [id number] 14:04:21 Test Item Value Reference Range Interpretation Comments ALBUMIN (test code = 6171614367) 3.2 g/dL 3.5-5.0 L Lab Interpretation (test code = Abnormal 69041-5) [facility] METABOLIC PANEL (NA, K, CL, CO2, GLUCOSE, BUN, CREATININE, CA)2020-12-04 10:57:25 Test Item Value Reference Range Interpretation Comments NA (test code = 137 mmol/L 135-145 0960239376) K (test code = 3.9 mmol/L 3.5-5.0 1531368697) CL (test code = 95 mmol/L 98-108 L 2168129842) CO2 TOTAL (test code = 36 mmol/L 23-31 H 3435883603) AGAP (test code = 2-16 9500447716) BUN (test code = 15 mg/dL 7-23 9362761726) GLUCOSE (test code = 92 mg/dL 70-110 9250079741) CREATININE (test code = 0.53 mg/dL 0.50-1.04 6233500960) CALCIUM (test code = 8.9 mg/dL 8.6-10.6 7554117391) eGFR (test code = mL/min/1.73m2 4174033467) CHRISTINE (test code = CHRISTINE) Association of [...] tests). Lab Interpretation Abnormal (test code = 53616-1) [facility] 10:[facility]:24 Test Item Value Reference Range Interpretation Comments MAGNESIUM (test code = 7757415263) 2.0 mg/dL 1.7-2.4 Lab Interpretation (test code = Normal 18251-4) [facility] WITH [id number] 10:19:38 Test Item Value Reference Range Interpretation Comments WBC (test code = See_Comment [Automated 9105-2) message] The sy stem which generated this result transmitted reference range : 4.30 - 11.10 10*3/?L. The reference range was not used to interpret this result as normal/abnormal . RBC (test code = See_Comment [Automated 488-8) message] The sy stem which generated this [...] (test code = 52.2 fL 39.0-49.9 H 05776-2) RDW-CV (test code = 15.9 % 12.0-15.5 H 788-0) PLT (test code = See_Comment [Automated 777-3) message] The sy stem which generated this result transmitted reference range : 166 - 358 10*3/ ?L. The reference r crispin was not used to interpret this result as normal/abnormal . MPV (test code = 9.6 fL 9.5-12.9 97777-1) NRBC/100 WBC (test See_Comment [Automat ed code = 4289620904) message] The system which generated this result transmitted reference range : 0.0 - 10.0 /100 WBCs. The refer ence range was not u sed to interpret th is result as normal/abnormal . NRBC x10^3 (test code <0.01 See_Comment [Auto mated = 3832672566) message] The s ystem which generated this result transmitted reference range : 10*3/?L. The reference range was not used to interpret this result as normal/abnormal . GRAN MAT (NEUT) % 56.8 % (test code = 770-8) IMM GRAN % (test code 0.30 % = 7476521261) LYMPH % (test code = 18.2 % 736-9) MONO % (test code = 17.8 % 5905-5) EOS % (test code = 6.2 % 713-8) BASO % (test code = 0.7 % 706-2) GRAN MAT x10^3(ANC) 3.41 10*3/uL 1.88-7.09 (test code = 0372453338) IMM GRAN x10^3 (test <0.03 0.00-0.06 code = 5558898929) LYMPH x10^3 (test code 1.09 10*3/uL 1.32-3.29 L = 731-0) MONO x10^3 (test code 1.07 10*3/uL 0.33-0.92 H = 742-7) EOS x10^3 (test code = 0.37 10*3/uL 0.03-0.39 711-2) BASO x10^3 (test code 0.04 10*3/uL 0.01-0.07 = 704-7) Lab Interpretation Abnormal (test code = 44094-1) [facility] METABOLIC PANEL (NA, K, CL, CO2, GLUCOSE, BUN, CREATININE, CA)2020-12-03 11:48:25 Test Item Value Reference Range Interpretation Comments NA (test code = 137 mmol/L 135-145 7882931501) K (test code = 3.6 mmol/L 3.5-5.0 Slight 7288963386) hemolysis CL (test code = 93 mmol/L 98-108 L 6270156401) CO2 TOTAL (test code 38 mmol/L 23-31 H = 8401120585) AGAP (test code = 2-16 2919829159) BUN (test code = 14 mg/dL 7-23 Slight 8916322445) hemolysis GLUCOSE (test code = 94 mg/dL 70-110 4302113036) CREATININE (test code 0.44 mg/dL 0.50-1.04 L = 0271987142) CALCIUM (test code = 9.2 mg/dL 8.6-10.6 6804387151) eGFR (test code = mL/min/1.73m2 9194096707) CHRISTINE (test code = CHRISTINE) Association of [...] tests). Lab Interpretation Abnormal (test code = 86165-0) [facility] 11:48:25 Test Item Value Reference Range Interpretation Comments MAGNESIUM (test code = 7768288944) 2.0 mg/dL 1.7-2.4 Lab Interpretation (test code = Normal 92199-8) [facility] WITH [id number] 11:28:06 Test Item Value Reference Range Interpretation [...] (test code = 53.5 fL 39.0-49.9 H 13126-1) RDW-CV (test code = 15.8 % 12.0-15.5 H 788-0) PLT (test code = See_Comment [Automated 777-3) message] The sy stem which generated this result transmitted reference range : 166 - 358 10*3/ ?L. The reference r crispin was not used to interpret this result as normal/abnormal . MPV (test code = 9.8 fL 9.5-12.9 28115-8) NRBC/100 WBC (test See_Comment [Automat ed code = 7643759878) message] The system which generated this result transmitted reference range : 0.0 - 10.0 /100 WBCs. The refer ence range was not u sed to interpret th is result as normal/abnormal . NRBC x10^3 (test code <0.01 See_Comment [Auto mated = 0353094434) message] The s ystem which generated this result transmitted reference range : 10*3/?L. The reference range was not used to interpret this result as normal/abnormal . GRAN MAT (NEUT) % 59.3 % (test code = 770-8) IMM GRAN % (test code 0.30 % = 9693410241) LYMPH % (test code = 21.7 % 736-9) MONO % (test code = 14.6 % 5905-5) EOS % (test code = 3.6 % 713-8) BASO % (test code = 0.5 % 706-2) GRAN MAT x10^3(ANC) 4.45 10*3/uL 1.88-7.09 (test code = 6058723560) IMM GRAN x10^3 (test <0.03 0.00-0.06 code = 6267873066) LYMPH x10^3 (test code 1.63 10*3/uL 1.32-3.29 = 731-0) MONO x10^3 (test code 1.10 10*3/uL 0.33-0.92 H = 742-7) EOS x10^3 (test code = 0.27 10*3/uL 0.03-0.39 711-2) BASO x10^3 (test code 0.04 10*3/uL 0.01-0.07 = 704-7) Lab Interpretation Abnormal (test code = 19147-5) [facility] [id number] 17:01:30 Test Item Value Reference Range Interpretation Comments Blood Culture-Aerobic No organisms No growth Previo us (test code = 83736-1) isolated prelim inary verified result was Culture In Progress on 11/27/2020 at 15 01 CDTPrevious preliminary verified result was No growth a t 24 hours on 11/28/2020 at 12 01 CDTPrevious preliminary verified result was No growth a t 48 hours on 11/29/2020 at 12 CDTPrevious preliminary verified result was No growth a t 72 hours on 11/30/2020 at 12 01 CDT Blood No organisms No growth Previous Culture-Anaerobic isolated preliminar y (test code = 32083-3) verifi ed result was Culture In Progress on 11/27/2020 at 15 01 CDTPrevious preliminary verified result was No growth a t 24 hours on 11/28/2020 at 12 CDTPrevious preliminary verified result was No growth a t 48 hours on 11/29/2020 at 12 01 CDTPrevious preliminary verified result was No growth a t 72 hours on 11/30/2020 at 12 01 CDT Lab Interpretation Normal (test code = 79928-6) [facility] [id number] 16:01:30 Test Item Value Reference Range Interpretation Comments Blood Culture-Aerobic No organisms No growth Previo us (test code = 71327-3) isolated prelim inary verified result was Culture In Progress on 11/27/2020 at 14 01 CDTPrevious preliminary verified result was No growth a t 24 hours on 11/28/2020 at 11 CDTPrevious preliminary verified result was No growth a t 48 hours on 11/29/2020 at 11 CDTPrevious preliminary verified result was No growth a t 72 hours on 11/30/2020 at 11 01 CDT Blood No organisms No growth Previous Culture-Anaerobic isolated preliminar y (test code = 91258-8) verifi ed result was Culture In Progress [...] CDT Lab Interpretation Normal (test code = 08593-1) [facility]andSP[facility] [id number] 16:12:34 Test Item Value Reference Range Interpretation Comments SPUTUM CULTURE 1+ Respiratory daniel: (test code = 622-1) Commensal upper respiratory microorganisms only. Gram stain (test Occasional (Rare) code = 664-3) Epithelial cells CHRISTINE (test code = Bacterial pathogens CHRISTINE) associated with lower respiratory infections were not identified, which include Pseudomonas aeruginosa and Staphylococcus aureus (MRSA or MSSA). [facility] METABOLIC PANEL (NA, K, CL, CO2, GLUCOSE, BUN, CREATININE, CA)2020-12-01 10:12:53 Test Item Value Reference Range Interpretation Comments NA (test code = 137 mmol/L 135-145 5225258165) K (test code = 3.6 mmol/L 3.5-5.0 2532263507) CL (test code = 94 mmol/L 98-108 L 5253099920) CO2 TOTAL (test code = 35 mmol/L 23-31 H 8295853139) AGAP (test code = 2-16 0342107897) BUN (test code = 17 mg/dL 7-23 8064398411) GLUCOSE (test code = 88 mg/dL 70-110 7832559452) CREATININE (test code = 0.38 mg/dL 0.50-1.04 L 8115868480) CALCIUM (test code = 8.6 mg/dL 8.6-10.6 3889087544) eGFR (test code = mL/min/1.73m2 2403413562) CHRISTINE (test code = CHRISTINE) Association of [...] tests). Lab Interpretation Abnormal (test code = 74321-4) [facility] Test Item Value Reference Range Interpretation Comments MAGNESIUM (test code = [id number]) 2.0 mg/dL 1.7-2.4 Lab Interpretation (test code = Normal 06479-3) [facility] 10:02:28 Test Item Value Reference Range Interpretation Comments PHOSPHORUS (test code = [id number]) 3.5 mg/dL 2.5-5.0 Lab Interpretation (test code = Normal 60432-8) [facility] [id number] 09:52:48 Test Item Value Reference Range Interpretation Comments WBC (test code = See_Comment [Automated 3790-2) message] The sy stem which generated this result transmitted reference range : 4.30 - 11.10 10*3/?L. The reference range was not used to interpret this result as normal/abnormal . RBC (test code = See_Comment [Automated 030-8) message] The sy stem which generated this [...] (test code = 54.5 fL 39.0-49.9 H 36496-7) RDW-CV (test code = 15.9 % 12.0-15.5 H 788-0) PLT (test code = See_Comment [Automated 777-3) message] The sy stem which generated this result transmitted reference range : 166 - 358 10*3/ ?L. The reference r crispin was not used to interpret this result as normal/abnormal . MPV (test code = 9.5 fL 9.5-12.9 82287-3) NRBC/100 WBC (test See_Comment [Automat ed code = 9974531333) message] The system which generated this result transmitted reference range : 0.0 - 10.0 /100 WBCs. The refer ence range was not u sed to interpret th is result as normal/abnormal . NRBC x10^3 (test code <0.01 See_Comment [Auto mated = 7606072927) message] The s ystem which generated this result transmitted reference range : 10*3/?L. The reference range was not used to interpret this result as normal/abnormal . GRAN MAT (NEUT) % 64.3 % (test code = 770-8) IMM GRAN % (test code 0.30 % = 5435890966) LYMPH % (test code = 17.9 % 736-9) MONO % (test code = 13.5 % 5905-5) EOS % (test code = 3.7 % 713-8) BASO % (test code = 0.3 % 706-2) GRAN MAT x10^3(ANC) 3.85 10*3/uL 1.88-7.09 (test code = 6650100917) IMM GRAN x10^3 (test <0.03 0.00-0.06 code = 4320520501) LYMPH x10^3 (test code 1.07 10*3/uL 1.32-3.29 L = 731-0) MONO x10^3 (test code 0.81 10*3/uL 0.33-0.92 = 742-7) EOS x10^3 (test code = 0.22 10*3/uL 0.03-0.39 711-2) BASO x10^3 (test code <0.03 0.01-0.07 = 704-7) Lab Interpretation Abnormal (test code = 75855-8) [facility] COVID [id number] 02:47:45COVID DMT InterpretationInterpretation/Recommendations: Molecular NAAT Tests for [...] COVID-19 testing the patient has had at [facility], including molecular NAAT testing (more commonly known as PCR testing and Rapid ID Now testing) and antibody testing. It does not take into account any testingthat a patient has had outside of the [facility] medical record. [facility] LABORATORY SERVICESCOVID [id number]-RuZ-9 Rapid ID NOW (no units) ? ? Date ? Value ? 11/27/2020 ? Not Detected ? ? ? 11/10/2020 ? Not Detected ? [facility] PANEL [facility] + LACTIC [id number] 20:13:40 Test Item Value Reference Range Interpretation Comments PH (test code = 7.32-7.42 9973992855) PCO2 AALIYAH (test code = See_Comment H [Auto mated 6915756991) message] The sy stem which generated this result transmitted reference range : 41 - 51 mmHg. The reference range was not used to interpret this result as normal/abnormal . PO2 AALIYAH (test code = See_Comment HH [Autom ated 7250261431) message] The sy stem which generated this result transmitted reference range : 25 - 40 mmHg. The reference range was not used to interpret this result as normal/abnormal . HCO3 AALIYAH (test code = See_Comment H [Auto mated 8660180355) message] The sy stem which generated this result transmitted reference range : 24 - 28 mEq/L. The reference range was not used to interpret this result as normal/abnormal . AC VBE(BEAKER) (test mEq/L code = 0136149787) THB AALIYAH (test code = 12.8 g/dL 12.0-16.0 3457838055) %O2HB AALIYAH (test code = 95.5 % 52.0-63.0 H 6154554754) %COHB AALIYAH (test code = 0.4 % 0.0-1.5 0461436540) %METHB AALIYAH (test code = 0.1 % 0.4-1.5 L 8195139093) VOL%O2 AALIYAH (test code = 17.2 % 6.0-12.0 H 3741295509) NA (test code = 139 mmol/L 135-145 7248535084) K+ (test code = 3.9 mmol/L 3.5-5.0 5717076475) AC CA IONZ (test code = 4.50 mg/dL 4.50-5.30 9561498891) GLUCOSE (test code = 167 mg/dL 70-110 H 0941541342) LACTIC ACID (test code 2.64 mmol/L 0.50-2.20 H = 6560375575) Lab Interpretation Abnormal (test code = 05222-6) [facility]A Screen by PCR, [id number] 16:25:22 Test Item Value Reference Range Interpretation Comments MSSA Screen by PCR, Nares (test code Negative Negative = 70049-0) MRSA/MSSA Positive? (test code = No No 9277092896) Lab Interpretation (test code = Normal 86341-8) [facility]andLEGIONELLA URINARY ANTIGEN [id number] 10:44:38 Test Item Value Reference Range Interpretation Comments Legionella Urinary Negative Negative Antigen (test code = 6412795737) CHRISTINE (test code = CHRISTINE) Negative for [...] test. Lab Interpretation (test Normal code = 08277-7) [facility]andPNEUMOCOCCAL [id number] 10:44:22 Test Item Value Reference Range Interpretation Comments S. pneumoniae antigen (test code = Negative Negative 5336304207) Lab Interpretation (test code = Normal 81380-8) [facility]andURINALYSIS2021-06-23 10:42:10 Test Item Value Reference Range Interpretation Comments APPEARANCE (test code = Hazy Clear A 9753183724) COLOR (test code = Mary Ann Yellow A 7895076087) PH (test code = 4.8-8.0 4788662893) SP GRAVITY (test code = 1.003-1.030 H 6126758982) GLU U QUAL (test code = Normal Normal 1169870427) BLOOD (test code = Negative Negative Interfere nce from 4042318553) ascorbic acid m ay cause false neg ative results. KETONES (test code = 5 mg/dL Negative A 6658204114) PROTEIN (test code = Negative Negative 2887-8) UROBILIN (test code = Normal Normal 9399203170) BILIRUBIN (test code = Negative Negative 1920023845) NITRITE (test code = Negative Negative 7346588635) LEUK FAITH (test code = Negative Negative 8930510400) RBC/HPF (test code = See_Comment H [Autom ated message] 2486317365) The system [employer] generated this result transmitted ref erence range: 0 - 3 HP F. The reference range was not used to int erpret this result as normal/abnormal . WBC/HPF (test code = See_Comment [Autom ated message] 4421534809) The system [employer] generated this result transmitted ref erence range: 0 - 5 HP F. The reference range was not used to int erpret this result as normal/abnormal . BACTERIA (test code = Few Negative A 4396748571) MUCOUS (test code = Slight Negative LPF A 0107975996) AMORPHOUS (test code = Rare Rare HPF 2387261302) ASCORBIC ACID (test code 40 mg/dL = 3664859478) Lab Interpretation (test Abnormal code = 58969-0) [facility]and[facility] RIBS 4+ VW [id number] 10:25:19 Left-sided rib fractures with left pleural effusion and left lower lobeatelectasis versus infiltrate. Questionable inferior lateral right rib fractures, suboptimally profiled. Severe osteopenia. Thoracic and lumbar spine vertebral body compression fractures, chronicityuncertain. Severe osteopenia, suspect osteoporosis. EXAM: XR RIBS 4+ VW BILATERAL HISTORY: Rule out possible rib fracture. [facility]. COMPARISON: [...] body compression fractures, chronicityuncertain.Severe osteopenia, suspect osteoporosis. [facility] (NA, K, CL, CO2, Glucose, BUN, Creatinine, CA)2020-11-28 10:13:28 Test Item Value Reference Range Interpretation Comments NA (test code = 141 mmol/L 135-145 1820042508) K (test code = 4.3 mmol/L 3.5-5.0 9475461712) CL (test code = 99 mmol/L 98-108 5148599102) CO2 TOTAL (test code = 36 mmol/L 23-31 H 0661556550) AGAP (test code = 2-16 4451127761) BUN (test code = 35 mg/dL 7-23 H 8476653598) GLUCOSE (test code = 93 mg/dL 70-110 1526195399) CREATININE (test code = 0.38 mg/dL 0.50-1.04 L 2860116419) CALCIUM (test code = 8.3 mg/dL 8.6-10.6 L 0042779116) eGFR (test code = mL/min/1.73m2 4027541302) CHRISTINE (test code = CHRISTINE) Association of [...] tests). Lab Interpretation Abnormal (test code = 27088-4) [facility]andMagnesium [id number] 10:03:09 Test Item Value Reference Range Interpretation Comments MAGNESIUM (test code = 2731931410) 2.4 mg/dL 1.7-2.4 Lab Interpretation (test code = Normal 14470-2) [facility]andHepatic Function Panel (ALB, T.PRO, BILI T, BU/BC, ALT, AST, ALK, PHOS)2020-11-28 10:03:09 Test Item Value Reference Range Interpretation Comments TOTAL BILI (test code = 7703041438) 0.3 mg/dL 0.1-1.1 BILI UNCON (test code = 7494883639) 0.0 mg/dL 0.1-1.1 L BILI CONJ (test code = 0270265949) 0.0 mg/dL 0.0-0.3 T PROTEIN (test code = 3627965888) 5.7 g/dL 6.3-8.2 L ALBUMIN (test code = 4558327233) 2.7 g/dL 3.5-5.0 L ALK PHOS (test code = 0754751313) 119 U/L 34-122 ALTv (test code = 1742-6) 8 U/L 5-35 AST(SGOT) (test code = 4302747198) 21 U/L 13-40 Lab Interpretation (test code = Abnormal 94999-9) [facility] + LACTIC [id number] 09:39:06 Test Item Value Reference Range Interpretation Comments PH (test code = 7.32-7.42 4425263496) PCO2 AALIYAH (test code = See_Comment H [Auto mated 3020627900) message] The sy stem which generated this result transmitted reference range : 41 - 51 mmHg. The reference range was not used to interpret this result as normal/abnormal . PO2 AALIYAH (test code = See_Comment H [Autom ated 1174973182) message] The sy stem which generated this result transmitted reference range : 25 - 40 mmHg. The reference range was not used to interpret this result as normal/abnormal . HCO3 AALIYAH (test code = See_Comment H [Auto mated 1150825115) message] The sy stem which generated this result transmitted reference range : 24 - 28 mEq/L. The reference range was not used to interpret this result as normal/abnormal . AC VBE(BEAKER) (test mEq/L code = 5077870561) THB AALIYAH (test code = 12.6 g/dL 12.0-16.0 9493247694) %O2HB AALIYAH (test code = 88.7 % 52.0-63.0 H 4427370767) %COHB AALIYAH (test code = 0.8 % 0.0-1.5 7681704462) %METHB AALIYAH (test code = 0.1 % 0.4-1.5 L 3295224644) VOL%O2 AALIYAH (test code = 15.7 % 6.0-12.0 H 5864002683) NA (test code = 142 mmol/L 135-145 6607479853) K+ (test code = 4.3 mmol/L 3.5-5.0 1666053723) AC CA IONZ (test code = 4.80 mg/dL 4.50-5.30 5120311811) GLUCOSE (test code = 92 mg/dL 70-110 9369562549) LACTIC ACID (test code 1.16 mmol/L 0.50-2.20 = 0539979739) Lab Interpretation Abnormal (test code = 66530-5) [facility] with [id number] 09:36:44 Test Item Value Reference Range Interpretation [...] (test code = 55.5 fL 39.0-49.9 H 46034-7) RDW-CV (test code = 15.8 % 12.0-15.5 H 788-0) PLT (test code = See_Comment [Automated 777-3) message] The sy stem which generated this result transmitted reference range : 166 - 358 10*3/ ?L. The reference r crispin was not used to interpret this result as normal/abnormal . MPV (test code = 9.5 fL 9.5-12.9 83881-0) NRBC/100 WBC (test See_Comment [Automat ed code = 4299999192) message] The system which generated this result transmitted reference range : 0.0 - 10.0 /100 WBCs. The refer ence range was not u sed to interpret th is result as normal/abnormal . NRBC x10^3 (test code <0.01 See_Comment [Auto mated = 2811126561) message] The s ystem which generated this result transmitted reference range : 10*3/?L. The reference range was not used to interpret this result as normal/abnormal . GRAN MAT (NEUT) % 75.1 % (test code = 770-8) IMM GRAN % (test code 0.20 % = 1413766035) LYMPH % (test code = 13.1 % 736-9) MONO % (test code = 11.4 % 5905-5) EOS % (test code = 0.0 % 713-8) BASO % (test code = 0.2 % 706-2) GRAN MAT x10^3(ANC) 3.09 10*3/uL 1.88-7.09 (test code = 5641780252) IMM GRAN x10^3 (test <0.03 0.00-0.06 code = 9515496485) LYMPH x10^3 (test code 0.54 10*3/uL 1.32-3.29 L = 731-0) MONO x10^3 (test code 0.47 10*3/uL 0.33-0.92 = 742-7) EOS x10^3 (test code = <0.03 0.03-0.39 L 711-2) BASO x10^3 (test code <0.03 0.01-0.07 = 704-7) Lab Interpretation Abnormal (test code = 93177-8) [facility] + LACTIC [id number] 03:48:20 Test Item Value Reference Range Interpretation Comments PH (test code = 2) 7.35-7.45 L PCO2 (test code = See_Comment H [Automate d 0656200804) message] The sy stem which generated this result transmitted reference range : 35 - 45 mmHg. The reference range was not used to interpret this result as normal/abnormal . PO2 (test code = See_Comment L [Automated 1399197040) message] The sy stem which generated this result transmitted reference range : 80 - 100 mmHg. The reference range was not used to interpret this result as normal/abnormal . HCO3 (test code = See_Comment H [Automate d 2673931399) message] The sy stem which generated this result transmitted reference range : 22 - 26 mEq/L. The reference range was not used to interpret this result as normal/abnormal . BE (test code = See_Comment H [Automated 9771499822) message] The sy stem which generated this result transmitted reference range : -3.0 - 3.0 mEq/ L. The reference r crispin was not used to interpret this result as normal/abnormal . THB (test code = 13.6 g/dL 12.0-16.0 0780462809) %O2HB (test code = 94.4 % 94.0-99.0 8319046930) %COHB ART (test code = 1.2 % 0.0-1.5 0704061214) %METHB ART (test code = 0.0 % 0.4-1.5 L 4168574690) VOL%O2 ART (test code = 18.1 % 15.0-23.0 0598113967) NA (test code = 143 mmol/L 135-145 5749103330) K+ (test code = 4.3 mmol/L 3.5-5.0 5453549755) AC CA IONZ (test code = 4.80 mg/dL 4.50-5.30 6385650392) GLUCOSE (test code = 120 mg/dL 70-110 H 6099565657) LACTIC ACID (test code 0.99 mmol/L 0.50-2.20 = 6118423015) Lab Interpretation Abnormal (test code = 60748-6) [facility] VENOUS BLOOD [id number] 01:07:34 Test Item Value Reference Range Interpretation Comments PH (test code = 7.32-7.42 L 2208700461) PCO2 AALIYAH (test code = See_Comment H [Auto mated message] 2108818245) The system [employer] generated this result transmitted ref erence range: 41 - 51 mmHg. The reference r crispin was not used to interpret this result as normal/abnor mal. PO2 AALIYAH (test code = See_Comment H [Autom ated message] 9753101954) The system [employer] generated this result transmitted ref erence range: 25 - 40 mmHg. The reference r crispin was not used to interpret this result as normal/abnor mal. HCO3 AALIYAH (test code = See_Comment H [Auto mated message] 3613466733) The system [employer] generated this result transmitted ref erence range: 24 - 28 mEq/L. The reference r crispin was not used to interpret this result as normal/abnor mal. AC VBE(BEAKER) (test mEq/L code = 7331623842) Lab Interpretation (test Abnormal code = 61289-8) [facility]andPROCALCITONIN2021-[facility] 00:57:28 Test Item Value Reference Interpretation Comments Range Procalcitonin (test <0.02 See_Comment [Automa cristhian code = 3561123118) message] The system which generated this result [...] For further information please refer to:[email or web address] Lab Interpretation Normal (test code = 03200-1) [facility]andAdelaide [id number] 23:45:01 Test Item Value Reference Range Interpretation Comments TROPONIN I (test 0.029 ng/mL See_Comment Hemolyzed code = 0330727004) specimen [Automated message] The system which generated this result transmitted reference range : <=0.034. The reference range was not used to interpret this result as normal/abnormal . CRHISTINE (test code = Equal or Less than [...] ? Lab Interpretation Normal (test code = 18547-1) [facility]andN-Terminal [id number] 23:12:52 Test Item Value Reference Range Interpretation Comments NT-proBNP (test code 1880 pg/mL See_Comment H [Autom ated = 7104143292) message] The system which generated this result transmitted reference range : <=125. The reference range was not used to interpret this result as normal/abnormal . CHRISTINE (test code = CHRISTINE) Biotin has been reported to cause a negative bias, interpret results relative to patient's use of biotin. Lab Interpretation Abnormal (test code = 71735-9) [facility] Arterial Blood Gas.2020-11-27 23:07:45 Test Item Value Reference Range Interpretation Comments PH (test code = 2) 7.35-7.45 L PCO2 (test code = See_Comment H [Automate d message] 2639702846) The system [employer] generated this result transmitted ref erence range: 35 - 45 mmHg. The reference r crispin was not used to interpret this result as normal/abnor mal. PO2 (test code = See_Comment H [Automated message] 2677674363) The system [employer] generated this result transmitted ref erence range: 80 - 100 mmHg. The reference r crispin was not used to interpret this result as normal/abnor mal. HCO3 (test code = See_Comment H [Automate d message] 5094673057) The system [employer] generated this result transmitted ref erence range: 22 - 26 mEq/L. The reference r crispin was not used to interpret this result as normal/abnor mal. BE (test code = See_Comment H [Automated message] 8760909220) The system [employer] generated this result transmitted ref erence range: -3.0 - 3 .0 mEq/L. The refe rence range was not u sed to interpret this result as normal/abnor mal. Lab Interpretation (test Abnormal code = 56357-1) [facility]andGAMMA [id number] 23:03:29 Test Item Value Reference Range Interpretation Comments GGT (test code = 3335865632) 16 U/L 13-40 Lab Interpretation (test code = Normal 49064-9) [facility]ellandTROPONIN [id number] 16:26:41 Test Item Value Reference Range Interpretation Comments TROPONIN I (test 0.033 ng/mL See_Comment [Automated code = 6505101352) message] The system which generated this result [...] ? Lab Interpretation Normal (test code = 43212-4) [facility] CHEST 1 [id number] 16:26:25HISTORY: SOB. TECHNIQUE: Portable AP erect view [...] findings of developing pneumonia inretrocardiac left lower lung.[facility]. METABOLIC PANEL (45042)2020-11-27 16:21:42 Test Item Value Reference Range Interpretation Comments NA (test code = 141 mmol/L 135-145 6412182136) K (test code = 3.7 mmol/L 3.5-5.0 7871002387) CL (test code = 97 mmol/L 98-108 L 4785659952) CO2 TOTAL (test code = 38 mmol/L 23-31 H 8147806550) AGAP (test code = 2-16 9695825976) BUN (test code = 36 mg/dL 7-23 H 0667655715) GLUCOSE (test code = 128 mg/dL 70-110 H 9802642121) CREATININE (test code = 0.58 mg/dL 0.50-1.04 1492516855) TOTAL BILI (test code = 0.3 mg/dL 0.1-1.5 9821606062) CALCIUM (test code = 9.5 mg/dL 8.6-10.6 2004798374) T PROTEIN (test code = 7.0 g/dL 6.3-8.2 1770359008) ALBUMIN (test code = 3.4 g/dL 3.5-5.0 L 8367494198) ALK PHOS (test code = 168 U/L 34-122 H 9930865992) ALTv (test code = 10 U/L 5-35 1742-6) AST(SGOT) (test code = 23 U/L 13-40 1757050267) eGFR (test code = mL/min/1.73m2 8035647031) CHRISTINE (test code = CHRISTINE) Association of [...] tests). Lab Interpretation Abnormal (test code = 07417-8) [facility]OVID[facility] (ID NOW RAPID TESTING)2020-11-27 16:15:24 Test Item Value Reference Range Interpretation Comments SARS-CoV-2 Rapid ID NOW Not Detected Not Detected (test code = 87156-3) CHRISTINE (test code = CHRISTINE) ID NOW COVID-19 Assay is an isothermal nucleic acid amplification test intended for the qualitative detection of nucleic acid from SARS-CoV-2 viral RNA in nasopharyngeal (SHORER) specimens. It is used under Emergency Use [...] indicated. Lab Interpretation Normal (test code = 70686-2) [facility] WITH [id number] 16:02:41 Test Item Value Reference Range Interpretation Comments WBC (test code = See_Comment [Automated 0377-2) message] The sy stem which generated this result transmitted reference range : 4.30 - 11.10 10*3/?L. The reference range was not used to interpret this result as normal/abnormal . RBC (test code = See_Comment [Automated 579-8) message] The sy stem which generated this [...] (test code = 55.8 fL 39.0-49.9 H 10495-9) RDW-CV (test code = 16.0 % 12.0-15.5 H 788-0) PLT (test code = See_Comment [Automated 937-3) message] The sy stem which generated this result transmitted reference range : 166 - 358 10*3/ ?L. The reference r crispin was not used to interpret this result as normal/abnormal . MPV (test code = 9.8 fL 9.5-12.9 26285-5) NRBC/100 WBC (test See_Comment [Automat ed code = 4829123898) message] The system which generated this result transmitted reference range : 0.0 - 10.0 /100 WBCs. The refer ence range was not u sed to interpret th is result as normal/abnormal . NRBC x10^3 (test code <0.01 See_Comment [Auto mated = 7325826660) message] The s ystem which generated this result transmitted reference range : 10*3/?L. The reference range was not used to interpret this result as normal/abnormal . GRAN MAT (NEUT) % 81.4 % (test code = 770-8) IMM GRAN % (test code 0.50 % = 0146088347) LYMPH % (test code = 11.1 % 736-9) MONO % (test code = 5.9 % 5905-5) EOS % (test code = 0.3 % 713-8) BASO % (test code = 0.8 % 706-2) GRAN MAT x10^3(ANC) 6.04 10*3/uL 1.88-7.09 (test code = 8566407265) IMM GRAN x10^3 (test 0.04 10*3/uL 0.00-0.06 code = 9083151967) LYMPH x10^3 (test code 0.82 10*3/uL 1.32-3.29 L = 731-0) MONO x10^3 (test code 0.44 10*3/uL 0.33-0.92 = 742-7) EOS x10^3 (test code = <0.03 0.03-0.39 L 711-2) BASO x10^3 (test code 0.06 10*3/uL 0.01-0.07 = 704-7) Lab Interpretation Abnormal (test code = 29264-1) [facility] + LACTIC [id number] 15:52:05 Test Item Value Reference Range Interpretation Comments PH (test code = 7.32-7.42 2287121546) PCO2 AALIYAH (test code = See_Comment H [Auto mated 6767249991) message] The sy stem which generated this result transmitted reference range : 41 - 51 mmHg. The reference range was not used to interpret this result as normal/abnormal . PO2 AALIYAH (test code = See_Comment [Autom ated 7367510542) message] The sy stem which generated this result transmitted reference range : 25 - 40 mmHg. The reference range was not used to interpret this result as normal/abnormal . HCO3 AALIYAH (test code = See_Comment H [Auto mated 6833562672) message] The sy stem which generated this result transmitted reference range : 24 - 28 mEq/L. The reference range was not used to interpret this result as normal/abnormal . AC VBE(BEAKER) (test mEq/L code = 3693452288) THB AALIYAH (test code = 13.9 g/dL 12.0-16.0 7816443210) %O2HB AALIYAH (test code = 61.0 % 52.0-63.0 3235097958) %COHB AALIYAH (test code = 3.2 % 0.0-1.5 H 5212858823) %METHB AALIYAH (test code = 0.3 % 0.4-1.5 L 3298288198) VOL%O2 AALIYAH (test code = 11.9 % 6.0-12.0 2247603165) NA (test code = 141 mmol/L 135-145 9653896679) K+ (test code = 4.3 mmol/L 3.5-5.0 4316115837) AC CA IONZ (test code = 4.50 mg/dL 4.50-5.30 7543773096) GLUCOSE (test code = 133 mg/dL 70-110 H 7604766922) LACTIC ACID (test code 1.92 mmol/L 0.50-2.20 = 5447515021) Lab Interpretation Abnormal (test code = 10038-9) [facility]andN-TERMINAL [id number] 21:02:27 Test Item Value Reference Range Interpretation Comments NT-proBNP (test code 607 pg/mL See_Comment H [Autom ated = 7637279289) message] The system which generated this result transmitted reference range : <=125. The reference range was not used to interpret this result as normal/abnormal . CHRISTINE (test code = CHRISTINE) Biotin has been reported to cause a negative bias, interpret results relative to patient's use of biotin. Lab Interpretation Abnormal (test code = 28951-5) [facility]andC-REACTIVE [id number] 18:59:27 Test Item Value Reference Range Interpretation Comments CRP (test code = 4244676711) 6.5 mg/dL <0.8 H Lab Interpretation (test code = Abnormal 48539-3) [facility]andBLOOD CULTURE [id number] 15:59:00 Test Item Value Reference Range Interpretation Comments Blood Culture-Aerobic No organisms No growth Previo us (test code = 26085-2) isolated prelim inary verified result was Culture In Progress on 11/10/2020 at 195 7 CDT Blood Culture positive. No growth AA Previous Culture-Anaerobic See Blood Culture preli minary (test code = 22235-4) Workup for verifi ed result additional was Culture In information. Progress on 11/10/2020 at 070 1 CDT Lab Interpretation Abnormal (test code = 90238-3) [facility] [facility] [id number] 15:58:24 Test Item Value Reference Range Interpretation Comments Blood Culture Shewanella algae [place] mor phologically Workup (test consistent with code = 600-7) organism above For susceptibility results, refer to culture # - [id number] Gram stain Isolated from (test code = anaerobic bottle 664-3) Gram negative bacilli [facility] CULTURE [id number] 15:56:17 Test Item Value Reference Range Interpretation Comments Blood Culture-Aerobic Culture positive. No growth AA P revious (test code = 24092-6) See Blood Culture p reliminary Workup for verified result additional was Culture In information. Progress on 11/10/2020 at 070 1 CDT Blood No organisms No growth Previous Culture-Anaerobic isolated preliminar y (test code = 41590-3) verifi ed result was Culture In Progress on 11/10/2020 at 200 0 CDT Lab Interpretation Abnormal (test code = 36478-5) [facility] 06:21:11 Test Item Value Reference Range Interpretation Comments Procalcitonin (test 0.10 ng/mL <0.07 H code = 9116248688) CHRISTINE (test code = CHRISTINE) INTERPRETATION OF [...] lung abscess/empyema. For further information please refer to:[email or web address] Lab Interpretation Abnormal (test code = 89702-0) [facility] COVID [id number] 17:28:08COVID DMT InterpretationInterpretation/Recommendations: Molecular NAAT Tests for [...] COVID-19 testing the patient has had at [facility], including molecular NAAT testing (more commonly known as PCR testing and Rapid ID Now testing) and antibody testing. It does not take into account any testing that a patient has had outside of the [facility] medical record. [facility] LABORATORY SERVICESCOVID ResultsSA RS-CoV-2 Rapid ID NOW (no units) ? ? Date ? Value ? 11/10/2020 ? Not Detected ? [facility] LABORATORY SERVICES [facility] [id number] 15:25:49 Test Item Value Reference Range Interpretation Comments FREE T4 (test code = See_Comment [Autom ated message] [id number]) The system [employer] generated this result transmitted ref erence range: 0.78 - 2 .20 ng/dL:. The ref erence range was not u sed to interpret this result as normal/abnor mal. Lab Interpretation (test Normal code = 54103-7) [facility] [id number] 15:25:34 Test Item Value Reference Range Interpretation Comments FREE T3 (test code = 7832224422) 2.05 pg/mL 2.77-5.27 L Lab Interpretation (test code = Abnormal 62945-3) [facility] CHEST 1 [id number] 14:46:22 Chronic emphysematous changes with possible infectious/inflammatoryexacerbation [...] No acute osseous abnormality is present. Osteopenia. [facility], Radiant Results Inft User - 11/12/2020 [...] this study and agree withthe above report. [facility] Metabolic Panel (NA, K, CL, CO2, GLUCOSE, BUN, CREATININE, CA)2020-11-12 14:40:25 Test Item Value Reference Range Interpretation Comments NA (test code = 136 mmol/L 135-145 1131161399) K (test code = 4.1 mmol/L 3.5-5.0 0828267123) CL (test code = 100 mmol/L 98-108 8960850141) CO2 TOTAL (test code = 32 mmol/L 23-31 H 2231155289) AGAP (test code = 2-16 9287921274) BUN (test code = 22 mg/dL 7-23 9467274547) GLUCOSE (test code = 90 mg/dL 70-110 5508740840) CREATININE (test code = 0.45 mg/dL 0.50-1.04 L 2688402568) CALCIUM (test code = 9.4 mg/dL 8.6-10.6 8043092166) eGFR (test code = mL/min/1.73m2 3738308640) CHRISTINE (test code = CHRISTINE) Association of [...] tests). Lab Interpretation Abnormal (test code = 17326-9) [facility] with [id number] 14:31:27 Test Item Value Reference Range Interpretation Comments WBC (test code = See_Comment [Automated 5848-2) message] The sy stem which generated this result transmitted reference range : 4.30 - 11.10 10*3/?L. The reference range was not used to interpret this result as normal/abnormal . RBC (test code = See_Comment [Automated 731-8) message] The sy stem which generated this [...] (test code = 51.8 fL 39.0-49.9 H 36872-7) RDW-CV (test code = 15.5 % 12.0-15.5 788-0) PLT (test code = See_Comment [Automated 777-3) message] The sy stem which generated this result transmitted reference range : 166 - 358 10*3/ ?L. The reference r crispin was not used to interpret this result as normal/abnormal . MPV (test code = 9.5 fL 9.5-12.9 65300-6) NRBC/100 WBC (test See_Comment [Automat ed code = 9006387443) message] The system which generated this result transmitted reference range : 0.0 - 10.0 /100 WBCs. The refer ence range was not u sed to interpret th is result as normal/abnormal . NRBC x10^3 (test code <0.01 See_Comment [Auto mated = 2879644497) message] The s ystem which generated this result transmitted reference range : 10*3/?L. The reference range was not used to interpret this result as normal/abnormal . GRAN MAT (NEUT) % 73.8 % (test code = 770-8) IMM GRAN % (test code 0.50 % = 6686443092) LYMPH % (test code = 11.0 % 736-9) MONO % (test code = 11.9 % 5905-5) EOS % (test code = 2.4 % 713-8) BASO % (test code = 0.4 % 706-2) GRAN MAT x10^3(ANC) 5.89 10*3/uL 1.88-7.09 (test code = 4384835247) IMM GRAN x10^3 (test 0.04 10*3/uL 0.00-0.06 code = 8942894971) LYMPH x10^3 (test code 0.88 10*3/uL 1.32-3.29 L = 731-0) MONO x10^3 (test code 0.95 10*3/uL 0.33-0.92 H = 742-7) EOS x10^3 (test code = 0.19 10*3/uL 0.03-0.39 711-2) BASO x10^3 (test code 0.03 10*3/uL 0.01-0.07 = 704-7) Lab Interpretation Abnormal (test code = 90271-5) [facility] [id number] 00:51:55 Test Item Value Reference Range Interpretation Comments TSH (test code = See_Comment H [Automated message] 9779728586) The system [employer] generated this result transmitted ref erence range: 0.45 - 4 .70 mIU/L. The refe rence range was not u sed to interpret this result as normal/abnor mal. Lab Interpretation (test Abnormal code = 09057-8) [facility]com[facility] Trough Level - Draw no more than 60 minutes before the 1830 dose.2020-11-12 00:24:13 Test Item Value Reference Range Interpretation Comments VANCO TROUGH (test code 6.7 ug/mL 10.0-20.0 L = 1112380991) CHRISTINE (test code = CHRISTINE) Toxic Range: ?>20 ug/mL 15-20 ug/mL is recommended for severe infection or when Vancomycin MARCELLA is greater than or equal to 2. Lab Interpretation (test Abnormal code = 11115-1) [facility]andGRAM NEGATIVE BLOOD PATHOGENS DNA [id number] 09:16:52 Test Item Value Reference Range Interpretation Comments Blood Pathogens by No organisms included in DNA Comment (test the Blood DNA Probe test code = 76211-4) panel were detected. Further identification workup to be performed by culture testing methods. CHRISTINE (test code = See blood culture result CHRISTINE) for additional information. ?Testing included eight identification and six resistance marker targets. [facility]andCT THORAX W [id number] 18:24:48 Impression: 1. No pulmonary mass or [...] liver function tests is suggested. RL: 2824AFC: [id number] End of Report Exam: CT Chest Without [...] L2. Chronic, displacedsternal fracture is also noted. [facility], Radiant Results Inft User - 11/10/2020 1:26 [...] with liver function tests is suggested.RL: 2824AFC: 99835Uxh of Report [facility]andURINALYSIS2021-06-05 09:41:46 Test Item Value Reference Range Interpretation Comments APPEARANCE (test code = Clear Clear 4904118026) COLOR (test code = Mary Ann Yellow A 6715748835) PH (test code = 4.8-8.0 3887501110) SP GRAVITY (test code = 1.003-1.030 2143053290) GLU U QUAL (test code = Normal Normal 5333890426) BLOOD (test code = Negative Negative 1731056679) KETONES (test code = Negative Negative 3852424721) PROTEIN (test code = 100 mg/dL Negative A 2887-8) UROBILIN (test code = 4.0 mg/dL Normal A 4992397684) BILIRUBIN (test code = 2 mg/dL Negative A 1800969814) NITRITE (test code = Negative Negative 9069028562) LEUK FAITH (test code = Negative Negative 4061147625) RBC/HPF (test code = See_Comment H [Autom ated message] 7666503375) The system [employer] generated this result transmit cristhian reference range : 0 - 3 HPF. The refe rence range was not u sed to interpret th is result as normal/abnormal . WBC/HPF (test code = See_Comment [Autom ated message] 9230247486) The system [employer] generated this result transmit cristhian reference range : 0 - 5 HPF. The refe rence range was not u sed to interpret th is result as normal/abnormal . BACTERIA (test code = Few Negative A 4815972033) MUCOUS (test code = Slight Negative LPF A 0347755281) SQ EPITH (test code = HPF 0231859522) HYAL CAST (test code = See_Comment H [Aut omated message] 4507070580) The system [employer] generated this result transmit cristhian reference range : <=2 LPF. The refere nce range was not u sed to interpret th is result as normal/abnormal . Ictotest (test code = Negative 5781620019) Lab Interpretation (test Abnormal code = 78357-1) [facility] (ID NOW RAPID TESTING)2020-11-10 09:17:13 Test Item Value Reference Range Interpretation Comments SARS-CoV-2 Rapid ID NOW Not Detected Not Detected (test code = 89898-2) CHRISTINE (test code = CHRISTINE) ID NOW COVID-19 Assay is an isothermal nucleic acid amplification test intended for the qualitative detection of nucleic acid from SARS-CoV-2 viral RNA in nasopharyngeal (SHORER) specimens. It is used under Emergency Use [...] indicated. Lab Interpretation Normal (test code = 33949-0) [facility]and[facility]. METABOLIC PANEL (73704)2020-11-10 09:13:10 Test Item Value Reference Range Interpretation Comments NA (test code = 137 mmol/L 135-145 0998779900) K (test code = 4.2 mmol/L 3.5-5.0 5397185878) CL (test code = 96 mmol/L 98-108 L 2924969420) CO2 TOTAL (test code = 34 mmol/L 23-31 H 2292906083) AGAP (test code = 2-16 5031721904) BUN (test code = 35 mg/dL 7-23 H 9855147467) GLUCOSE (test code = 131 mg/dL 70-110 H 5052730883) CREATININE (test code = 0.64 mg/dL 0.50-1.04 0327414595) TOTAL BILI (test code = 0.7 mg/dL 0.1-1.9 1352613024) CALCIUM (test code = 9.7 mg/dL 8.6-10.6 6780498434) T PROTEIN (test code = 7.7 g/dL 6.3-8.2 8183451159) ALBUMIN (test code = 3.9 g/dL 3.5-5.0 2733307943) ALK PHOS (test code = 202 U/L 34-122 H 6128693913) ALTv (test code = 13 U/L 5-35 1741-6) AST(SGOT) (test code = 27 U/L 13-40 9369562332) eGFR (test code = mL/min/1.73m2 8920587280) CHRISTINE (test code = CHRISTINE) Association of [...] tests). Lab Interpretation Abnormal (test code = 88762-7) [facility] WITH [id number] 09:01:30 Test Item Value Reference Range Interpretation Comments WBC (test code = See_Comment H [Automated 6690-2) message] The system which generated this result [...] (test code = 52.1 fL 39.0-49.9 H 56595-1) RDW-CV (test code = 15.7 % 12.0-15.5 H 788-0) PLT (test code = See_Comment [Automated 777-3) message] The system which generated this result transmit cristhian reference range : 166 - 358 10*3/ ?L. The reference range was not u sed to interpret th is result as normal/abnormal . MPV (test code = 9.7 fL 9.5-12.9 82457-0) NRBC/100 WBC (test See_Comment [Automat ed code = 2419419520) message] The system which generated this result transmit cristhian reference range : 0.0 - 10.0 /100 WBCs. The reference range was not used to interpret this result as normal/abnormal . NRBC x10^3 (test code <0.01 See_Comment [Auto mated = 1569955097) message] The system which generated this result transmit cristhian reference range : 10*3/?L. The reference range was not used to interpret this result as normal/abnormal . GRAN MAT (NEUT) % 88.5 % (test code = 770-8) IMM GRAN % (test code 0.70 % = 6461268935) LYMPH % (test code = 3.1 % 736-9) MONO % (test code = 7.5 % 5905-5) EOS % (test code = 0.0 % 713-8) BASO % (test code = 0.2 % 706-2) GRAN MAT x10^3(ANC) 14.39 10*3/uL 1.88-7.09 H (test code = 2181560004) IMM GRAN x10^3 (test 0.12 10*3/uL 0.00-0.06 H code = 7334500573) LYMPH x10^3 (test code 0.50 10*3/uL 1.32-3.29 L = 731-0) MONO x10^3 (test code 1.22 10*3/uL 0.33-0.92 H = 742-7) EOS x10^3 (test code = <0.03 0.03-0.39 L 711-2) BASO x10^3 (test code 0.04 10*3/uL 0.01-0.07 = 704-7) Lab Interpretation Abnormal (test code = 41586-1) [facility]and[facility]actic Acid Whole [id number] 08:58:13 Test Item Value Reference Range Interpretation Comments LACTIC ACID (test code = 1.62 mmol/L 0.50-2.20 5747784681) Lab Interpretation (test code = Normal 65129-1) [facility]
--- NOTE | 2023-02-19 13:17 | RAD REPORT ---
EXAM DESCRIPTION: CT - CTHCSPWOC - 02/19/2023 1:09 pm CLINICAL HISTORY: Trauma, head and neck injury. TRAUMA COMPARISON: No comparisons TECHNIQUE: Axial 5 mm thick images of the head were obtained. Axial 2 mm thick images of the cervical spine were obtained with sagittal and coronal reconstruction images generated and reviewed. All CT scans are performed using dose optimization technique as appropriate and may include automated exposure control or mA/KV adjustment according to patient size. FINDINGS: CT HEAD WITHOUT CONTRAST: No acute hemorrhage, hydrocephalus or extra-axial collection is identified.No areas of brain edema or midline shift. The paranasal sinuses and mastoids are clear.The calvarium is intact. CT CERVICAL SPINE WITHOUT CONTRAST: No fracture or subluxation.Moderate multilevel degenerative spondylosis with facet arthrosis noted.No prevertebral soft tissues swelling is identified. IMPRESSION: No acute intracranial or cervical spine findings.
--- NOTE | 2023-02-19 13:23 | RAD REPORT ---
EXAM DESCRIPTION: CT - Spine Lumbar Wo Con - 02/19/2023 1:11 pm CLINICAL HISTORY: Radiculopathy.Trauma, hip pain PAIN COMPARISON: Pelvis dated 08/10/2022 TECHNIQUE: Axial noncontrast CT imaging of the lumbar spine was performed with coronal and sagittal re-formatted images. All CT scans are performed using dose optimization technique as appropriate and may include automated exposure control or mA/KV adjustment according to patient size. FINDINGS: Multilevel compression deformities are present upper lumbar spine most notable at T12, L1 and L2. Age of these fracture is is indeterminate. T12 fracture however may be acute or subacute in t imeframe. There is loss of vertebral body height estimated at 80%. Advanced multilevel degenerative change of the lower lumbar spine with levoscoliosis also present. Moderate hiatal hernia. IMPRESSION: Multilevel advanced degenerative change throughout the lumbar spine with degenerative le voscoliosis. Multilevel compression fractures are also present throughout the upper lumbar levels. T12 compression fracture may be acute or subacute in timeframe and demonstrates 80% loss of vertebral body height.
--- NOTE | 2023-02-19 13:37 | RAD REPORT ---
EXAM DESCRIPTION: RAD - Hip Right 2 View - 02/19/2023 1:30 pm CLINICAL HISTORY: PAIN COMPARISON: <Comparisons> FINDINGS: Intramedullary loyda is seen proximal right femur. Advanced degenerative change right. The b ones are quite osteopenic. No gross fractures appreciated, limited by osteopenia.
[2023-02-19] MEDS ORDERED: CYCLOBENZAPRINE 10 MG TAB ONE (15:05)
--- NOTE | 2023-02-19 15:19 | RAD REPORT ---
EXAM DESCRIPTION: CT - Pelvis Wo Cont - 02/19/2023 2:40 pm CLINICAL HISTORY: TRAUMA Fall, trauma, pain COMPARISON: No comparisons TECHNIQUE: All CT scans are performed using dose optimization technique as appropriate and may inclu de automated exposure control or mA/KV adjustment according to patient size. FINDINGS: Diffuse osteopenia is present. No sacral ala fracture. Sacrum and coccyx intact. Moderate lower lumbar degenerative changes. Proxima l right femoral loyda is in place with severe osteoarthritis right hip. Left hip appears intact. Slight cortical irregularity of the right greater trochanter noted (image 111/200) may represent fracture. IMPRESSION: Questionable fracture greater trochanter of the proximal right femur. There is existing right proximal femoral loyda present. Significant osteopenia.
--- NOTE | 2023-02-19 15:28 | ER ---
Nurse's Notes [facility] Name: Elena Bruno Age: 73 yrs Sex: Female : 1950 Arrival Date: 02/19/2023 Time: 12:44 Bed 5 Private MD: Diagnosis: Mechanical fall;Right hip pain;Skin tear to left forearm Presentation: 02/19 12:53 Chief complaint: EMS states: toned out to patient home for mechanical fall - pt fell ld1 while trying to sit into rolling chair. C/O pain to right hip/leg/ankle. Denies LOC - not on blood thinners. Coronavirus screen: At this time, the client does not indicate any symptoms associated with coronavirus-19. Ebola Screen: No symptoms or risks identified at this time. Risk Assessment: Do you want to hurt yourself or someone else? Patient reports no desire to harm self or others. Onset of symptoms was February 19, 2023. 12:53 Method Of Arrival: EMS: [facility] ld1 12:53 Acuity: FABBY 3 ld1 15:56 Initial Sepsis Screen: Does the patient meet any 2 criteria? No. Patient's initial ld1 sepsis screen is negative. Does the patient have a suspected source of infection? No. Patient's initial sepsis screen is negative. Triage Assessment: 12:54 General: Appears in no apparent distress. comfortable, Behavior is calm, cooperative, ld1 appropriate for age. Pain: Complains of pain in right hip and right leg Pain does not radiate. Pain currently is 8 out of 10 on a pain scale. Quality of pain is described as throbbing, Is continuous. EENT: No signs and/or symptoms were reported regarding the EENT system. Neuro: Level of Consciousness is awake, alert, obeys commands, Oriented to person, place, time, situation. Cardiovascular: Capillary refill < 3 seconds Patient's skin is warm and dry. Respiratory: Airway is patent Respiratory effort is even, unlabored. GI: Abdomen is flat, non-distended. : No signs and/or symptoms were reported regarding the genitourinary system. Derm: No signs and/or symptoms reported regarding the dermatologic system. Musculoskeletal: No signs and/or symptoms reported regarding the musculoskeletal system. Historical: - Allergies: 12:54 No Known Allergies; ld1 - PMHx: 12:54 Chronic obstructive lung disease; Hypertensive disorder; Hypothyroidism; ld1 - PSHx: 12:54 Appendectomy; Total abdominal hysterectomy; ld1 - Immunization history:: Adult Immunizations up to date. - Social history:: Smoking status: Patient denies any tobacco usage or history of. Patient/guardian denies using alcohol. - Family history:: not pertinent. Screenin:56 [facility] ED Fall Risk Assessment (Adult) History of falling in the last 3 months, ld1 including since admission No falls in past 3 months (0 pts). Abuse screen: Denies threats or abuse. Denies injuries from another. Nutritional screening: No deficits noted. Tuberculosis screening: No symptoms or risk factors identified. Assessment: 12:56 Reassessment: See triage assessment. ld1 15:03 Reassessment: No changes from previously documented assessment. Patient and/or family ld1 updated on plan of care and expected duration. Pain level reassessed. 15:56 Reassessment: Patient appears in no apparent distress at this time. No changes from ld1 previously documented assessment. Patient and/or family updated on plan of care and expected duration. Pain level reassessed. Vital Signs: 12:56 BP 129 / 86; Pulse 79; Resp 18; Temp 98.2(O); Pulse Ox 97% on 3 lpm NC; Weight 48.08 ld1 kg; Height 5 ft. 7 in. ; Pain 8/10; 13:00 BP 135 / 82; Pulse 82; Resp 18; Pulse Ox 96% on R/A; ld1 15:57 BP 129 / 77; Pulse 79; Resp 18; Pulse Ox 97% on 3 lpm NC; ld1 12:56 Body Mass Index 16.60 (48.08 kg, 170.18 cm) ld1 12:56 Pain Scale: Adult ld1 ED Course: 12:46 Patient arrived in ED. rt 12:46 Jeevan Barahona MD is Attending Physician. rt 12:54 Triage completed. ld1 12:54 Arm band placed on right wrist. ld1 12:56 Patient has correct armband on for positive identification. Placed in gown. Bed in low ld1 position. Call light in reach. Side rails up X2. tearoom host/hostess on. Pulse ox on. NIBP on. Door closed. Noise minimized. Warm blanket given. 12:56 No provider procedures requiring assistance completed. ld1 13:10 CT Head C Spine In Process Unspecified. EDMS 13:10 CT Lumbar Spine Wo Con In Process Unspecified. EDMS 13:32 Hip Right 2 View XRAY In Process Unspecified. EDMS 14:40 CT Pelvis wo Cont In Process Unspecified. EDMS 15:56 Patient did not have IV access during this emergency room visit. ld1 Administered Medications: 14:56 Drug: Cyclobenzaprine PO 10 mg Route: PO; ld1 Medication: 12:56 VIS not applicable for this client. ld1 Outcome: 15:28 Discharge ordered by . rt 15:56 Discharged to home via wheelchair, with family. ld1 15:56 Condition: stable 15:56 Discharge instructions given to patient, Instructed on discharge instructions, follow up and referral plans. medication usage, Demonstrated understanding of instructions, follow-up care, medications, Prescriptions given X 1. 15:56 Patient left the ED. ll1 Signatures: Dispatcher [employer] Lydia Shwa RN RN ll1 Luz Maria Pérez RN RN ld1 Jeevan Barahona MD MD rt
--- NOTE | 2023-02-19 15:28 | EDPHYS ---
Physician Documentation [facility] Name: Elena Bruno Age: 73 yrs Sex: Female : 1950 Arrival Date: 02/19/2023 Time: 12:44 Bed 5 Private MD: ED Physician Jeevan Barahona HPI: 02/19 16:30 This 73 yrs old Female presents to ER via EMS with complaints of Fall Injury. rt 16:30 Patient presents to the ED following mechanical fall. Patient was trying to transfer, rt when she hit her right side. Does report pain to that area. Denies other acute complaints at this time. Symptoms are moderate in severity, aching nature, nonradiating, no other aggravating or elevating factors.. Historical: - Allergies: 12:54 No Known Allergies; ld1 - PMHx: 12:54 Chronic obstructive lung disease; Hypertensive disorder; Hypothyroidism; ld1 - PSHx: 12:54 Appendectomy; Total abdominal hysterectomy; ld1 - Immunization history:: Adult Immunizations up to date. - Social history:: Smoking status: Patient denies any tobacco usage or history of. Patient/guardian denies using alcohol. - Family history:: not pertinent. ROS: 16:30 Constitutional: Negative for fever, chills, and weight loss, Cardiovascular: Negative rt for chest pain, palpitations, and edema, Respiratory: Negative for shortness of breath, cough, wheezing, and pleuritic chest pain, Abdomen/GI: Negative for abdominal pain, nausea, vomiting, diarrhea, and constipation, Skin: Negative for injury, rash, and discoloration, Neuro: Negative for headache, weakness, numbness, tingling, and seizure, Psych: Negative for depression, anxiety, suicide ideation, homicidal ideation, and hallucinations. 16:30 Back: Positive for pain at rest, pain with movement. 16:30 MS/extremity: Positive for decreased range of motion, pain. Exam: 16:30 Constitutional: This is a well developed, well nourished patient who is awake, alert, rt and in no acute distress. Head/Face: Normocephalic, atraumatic. Chest/axilla: Normal chest wall appearance and motion. Nontender with no deformity. No lesions are appreciated. Cardiovascular: Regular rate and rhythm with a normal S1 and S2. No gallops, murmurs, or rubs. Normal PMI, no JVD. No pulse deficits. Respiratory: Lungs have equal breath sounds bilaterally, clear to auscultation and percussion. No rales, rhonchi or wheezes noted. No increased work of breathing, no retractions or nasal flaring. Abdomen/GI: Soft, non-tender, with normal bowel sounds. No distension or tympany. No guarding or rebound. No evidence of tenderness throughout. Neuro: Awake and alert, GCS 15, oriented to person, place, time, and situation. Cranial nerves II-XII grossly intact. Motor strength 5/5 in all extremities. Sensory grossly intact. Cerebellar exam normal. Normal gait. Psych: Awake, alert, with orientation to person, place and time. Behavior, mood, and affect are within normal limits. 16:30 Back: No midline tenderness throughout entire spine, no deformities, scoliosis noted. 16:30 Musculoskeletal/extremity: Tenderness to right hip, range of motion somewhat limited due to pain, no deformities noted. Pulses, motor, sensation intact. There are skin tears noted to the left forearm.. Vital Signs: 12:56 BP 129 / 86; Pulse 79; Resp 18; Temp 98.2(O); Pulse Ox 97% on 3 lpm NC; Weight 48.08 ld1 kg; Height 5 ft. 7 in. ; Pain 8/10; 13:00 BP 135 / 82; Pulse 82; Resp 18; Pulse Ox 96% on R/A; ld1 15:57 BP 129 / 77; Pulse 79; Resp 18; Pulse Ox 97% on 3 lpm NC; ld1 12:56 Body Mass Index 16.60 (48.08 kg, 170.18 cm) ld1 12:56 Pain Scale: Adult ld1 MDM: 12:47 Patient medically screened. rt 16:30 Differential diagnosis: Fracture, contusion, musculoskeletal pain. Data reviewed: vital rt signs, nurses notes, radiologic studies. Consideration of Admission/Observation Escalation of care including admission/observation considered. X-ray negative for obvious acute fracture. CT scan showed a questionable greater trochanteric fracture, however, the hardware appears to be intact. This is likely nonoperative injury that require admission to the hospital. Patient was also multiple compression fractures of unclear chronicity. The brother states that the patient has injured her back previously. She has no new pains to her back, no tenderness. I favor that these are old, not requiring immediate intervention. Does not require admission to the hospital, stable for outpatient care.. I considered the following discharge prescriptions or medication management in the emergency department Medications were administered in the Emergency Department. See MAR. Independent interpretation of the following test(s) in the Emergency Department X-Ray: My interpretation is No fracture seen on interpretation of the x-ray images. Care significantly affected by the following chronic conditions: Hypertension, Chronic Obstructive Pulmonary Disease. Counseling: I had a detailed discussion with the patient and/or guardian regarding the historical points, exam findings, and any diagnostic results supporting the discharge/admit diagnosis, radiology results, the need for outpatient follow up, to return to the emergency department if symptoms worsen or persist or if there are any questions or concerns that arise at home. Response to treatment: the patient's symptoms have markedly improved after treatment. 02/19 12:56 Order name: Hip Right 2 View XRAY; Complete Time: 13:43 rt 02/19 12:56 Order name: CT Head C Spine; Complete Time: 13:43 rt 02/19 12:56 Order name: CT Lumbar Spine Wo Con; Complete Time: 13:43 rt 02/19 14:30 Order name: CT Pelvis wo Cont; Complete Time: 15:20 rt Administered Medications: 14:56 Drug: Cyclobenzaprine PO 10 mg Route: PO; ld1 Disposition Summary: 02/19/23 15:28 Discharge Ordered Location: Home rt Problem: new rt Symptoms: have improved rt Condition: Stable rt Diagnosis - Mechanical fall rt - Right hip pain rt - Skin tear to left forearm rt Followup: rt - With: Private Physician - When: 2 - 3 days - Reason: Discharge Instructions: - Discharge Summary Sheet rt - Skin Tear rt - Hip Pain rt Forms: - Medication Reconciliation Form rt - Thank You Letter rt - Antibiotic Education rt - Prescription Opioid Use rt - Patient Portal Instructions rt - Leadership Thank You Letter rt Prescriptions: - Cyclobenzaprine 5 mg Oral Tablet - take 1 tablet by ORAL route 3 times per day As needed; 9 tablet; Refills: 0, rt Product Selection Permitted Signatures: Dispatcher [employer] Luz Maria Bermudez RN RN ld1 Jeevan Barahona MD MD rt
[2023-02-19 16:01] VITALS: BP 135/82; O2SAT 96
== END 2023-02-19 15:56 | disposition home or self-care (01) ==
LOC: ER 12:44
DX: S51.812A Laceration without foreign body of left forearm, initial encounter (principal); M25.551 Pain in right hip; W19.XXXA Unspecified fall, initial encounter
CPT/HCPCS: 70450; 72125; 72131; 72192; 99284

== ENCOUNTER 2023-04-28 11:23 | Emergency (ER) | payer OTHER ==
--- OUTSIDE RECORDS SUMMARY | 2023-04-28 11:34 | XMS REPORT | Continuity of Care Document ---
:1950 Author Organization [facility] t Address [address] [facility] [place] [address] Care Team Providers Name Role Phone No, Pcp [facility] Primary Care Physician Unavailable CHAO CARDONA Attending Clinician Unavailable Nisa PEREZ, [place] Attending Clinician Unavailable AMANDA DANIELS Attending Clinician Unavailable Vidhya Fuentes MD Attending Clinician Amanda Daniels MD Attending Clinician Dominique Taylor DO Attending Clinician Lacy Barros Attending Clinician LACY BEJARANO Attending Clinician Unavailable Doctor Unassigned, [place] Attending Clinician Unavailable MARIA GUADALUPE HOSKINS Attending Clinician Unavailable Maria Guadalupe Hoskins MD Attending Clinician Quentin Mckeon MD Attending Clinician Martha Conway MD Attending Clinician Mary Kay Felix MD Attending Clinician MARTHA CONWAY Attending Clinician Unavailable Amelia Ferreira Attending Clinician Kashif Strong MD Attending Clinician Cris RAMIREZ, Wendi Braga Attending Clinician Amelia ZIEGLER Attending Clinician Unavailable Clarence Bach MD Attending Clinician VIDHYA FUENTES Attending Clinician Unavailable CHAO CARDONA Admitting Clinician Unavailable DOMINIQUE TAYLOR Admitting Clinician Unavailable Dominique Taylor DO Admitting Clinician MARY KAY FELIX Admitting Clinician Unavailable OLE CUEVA Admitting Clinician Unavailable Ligia RAMIREZ, Kashif Admitting Clinician Jeremiah RAMIREZ, Amanda Admitting Clinician Payers Payer Name Policy Type Policy Number Effective Date Expiration Date Juliann cuevas MEDICARE A B [id number] 2014 00:00:00 Problems Condition Condition Condition Status Onset Resolution Last Treating Co mments Source Name Details Category Date Date Treatment Clinician Date Fall, Fall, Disease Active [facility] initial initial 6-06 [place] Hypoxia Hypoxia Disease Active [facility]-[address] [facility] [address] Acute Acute Disease Active [facility] hypoxemic hypoxemic 12-14 ke s respirator respirator 00:00: Me dical y failure y failure 00 Cent er Pneumothor Pneumothor Disease Active [facility] [address] Acute Acute Disease Active Univers hypercapni hypercapni 6 it y of c c 00:00: [place] respirator respirator 00 Me dical y failure y failure Bran ch E46 E46 Disease Active Univers Unspecifie Unspecifie 607 it y of d severe d severe 00:00: [place] protein-ca protein-ca 00 Me dical marshall marshall Branch malnutriti malnutriti on on Cellulitis Cellulitis Disease Active U nivers of left of left 6-05 ity of lower lower 00:00: [place] extremity extremity 00 [facility] santo Branch Allergies, Adverse Reactions, Alerts Allergy [...] Active Univers ALLERGIE Class ity of S [place] [facility] [place] NO KNOWN Allergy Active [facility] Social History Social Habit Start Date Stop Date Quantity Comments Source History of tobacco Cigarette Smoker University of use [place] [facility] History SDOH University o f Alcohol Std Drinks [place] [facility] History SDOH University o f Alcohol Binge [place] Medic al Branch History SDOH Social Unive rsity of Connections [facility] Med ical Together Branch History SDOH Social Unive rsity of Connections [facility] Medical Branch History SDOH Social Unive rsity of Connections [place] [facility] Membership Branch History SDOH Social Unive rsity of Connections [place] [facility] Meetings Branch Sexual orientation [facility] Cigarettes smoked 2022-11-11 2022-11-11 Univers ity of current (pack per 00:00:00 00:00:00 [facility] edical day) - Reported Branch Cigarette 2022-11-11 2022-11-11 University of pack-years 00:00:00 00:00:00 [place] [facility] History SDOH 2022-11-11 2022-11-11 1 University o f Alcohol Frequency 00:00:00 00:00:00 [facility] edical Branch History SDOH Social 2022-11-11 2022-11-11 5 Unive rsity of Connections Phone 00:00:00 00:00:00 [facility] edical Branch History SDOH Social 2022-11-11 2022-11-11 4 Unive rsity of Connections Living 00:00:00 00:00:00 [place] [facility] History SDOH 2022-11-11 2022-11-11 0 University o f Physical Activity 00:00:00 00:00:00 [facility] edical DPW Branch History SDOH 2022-11-11 2022-11-11 0 University o f Physical Activity 00:00:00 00:00:00 [facility] edical MPS Branch History SDOH 2022-11-11 2022-11-11 5 University o f Financial 00:00:00 00:00:00 [place] [facility] History SDOK Food 2022-11-11 2022-11-11 1 Univers ity of Worry 00:00:00 00:00:00 [place] [facility] History SDOH Food 2022-11-11 2022-11-11 1 Univers ity of Scarcity 00:00:00 00:00:00 [place] [facility] History SDOK 2022-11-11 2022-11-11 2 University o f Transport Med 00:00:00 00:00:00 [place] Medic al Branch History SDOK 2022-11-11 2022-11-11 2 University o f Transport Non-Med 00:00:00 00:00:00 [place] M edical Branch History SDOK 2022-11-11 2022-11-11 2 University o f Housing Unable to 00:00:00 00:00:00 [place] M edical Pay Branch History [facility] 2022-11-11 2022-11-11 1 [place] o f Housing Places 00:00:00 00:00:00 [place] Medi santo Lived Branch History [facility] 2022-11-11 2022-11-11 2 [place] o f Housing Homeless 00:00:00 00:00:00 [facility] dical Last Year Branch Tobacco Comment 2022-11-11 2022-11-11 Less than a pack Uni versity of 00:00:00 00:00:00 a day [facility] Tobacco use and 2022-11-11 2022-11-11 Smokeless Universit y of exposure 00:00:00 00:00:00 tobacco non-user [facility] dical Branch Alcohol intake 2022-11-11 2022-11-[address] Ex-dr[address] [facility] 00:00:00 00:00:00 (finding) [facility] Exposure to 2022-09-30 2022-10-[address] [facility] SARS-CoV-2 (event) 00:00:00 10:35:00 [facility] Sex [birth year] SMITHA Hernandez 00:00:00 00:00:00 Medical Center Smoking Status Start Date Stop Date Source Smokes tobacco daily 2022-11-11 00:00:00 Univers ity of [facility] Medications Ordered Filled Start Stop Current Ordering Indication Dosage Frequency Signature Comments Components Source Medication Medication Date Date Medication? Clinician (SIG) Name Name famotidine Yes 20mg 20 mg, Unive rs (PEPCID AC) 6-10 Oral, ity of tablet 20 14:00: DAILY, [place] mg 00 First dose Medical on Thu Branch 11/15/22 at 0900, Until Discontinu ed, Routine predniSONE Yes [id number] 20mg Take 1 Univers 20 mg 6-10 tablet by ity of tablet 00:00: mouth in [place] 00 the Medical morning. Branch predniSONE Yes [id number] 20mg Take 1 Univers 20 mg 6-10 tablet by ity of tablet 00:00: mouth in [place] 00 the Medical morning. Branch doxycycline 2022- No 100mg 100 mg, U nivers hyclate 11-14 Oral, ity of (Vibramycin 23:00: 22:59 Q12HA2, 8 [place] ) capsule 00 :00 doses, Medical 100 mg First dose Branch on Thu11/14/22 at 1800, Last dose on Thu11/18/22 at 0600, CEM
Re ason for Anti-Infec tive: Documented Infection< br>Documen cristhian Infection Site: Wound
D uration of Therapy: 7 days levothyroxi 2022- No 75ug Take 1 Uni vers [...] 0600, Until Discontinu ed, Routine FENTanyl PF 2023-0 Yes 50ug 50 mcg, Uni vers (SUBLIMAZE 11-14 Slow IV ity of (PF)) 01:18: Push, [place] injection 37 Q4HPRN, Medical 50 mcg Starting Branch on Marivel 11/13/22 at 2018, Until Discontinu ed, Routine, Pain (scale 7-10) acidophilus 2022-0 Yes [id number] 1g Take 1 Univers 100 million 6- tablet by ity of cell tablet 00:00: mouth [place] 00 the Medical morning Branch and 1 tablet in the evening. albuterol 0 Yes [id number] 2{puff} Inhale 2 Univers 90 6- Puffs ity of mcg/actuati 00:00: every 4 Juni as on inhaler 00 (four) Medical hours as Branch needed for Wheezing or Shortness of Breath. furosemide 0 Yes [id number] 20mg Take 1 Univers 20 mg - tablet by ity of tablet 00:00: mouth in [place] 00 the Medical morning. Branch levothyroxi 0 Yes [id number] 75ug Take 1 Univers ne 75 mcg - tablet by ity o f tablet 00:00: mouth [place] 00 every Medical morning. Branch levalbutero 0 Yes [id number] 1.25mg Inhale Univers l 1.25 mg/3 6-09 1.25 mg ity o f mL 00:00: every 4 [place] nebulizer 00 (four) Medical solution hours as Branch needed for Wheezing or Shortness of Breath. gabapentin 2022-0 Yes [id number] 100mg Take 1 Univers 100 mg - capsule by ity of capsule 00:00: mouth in [place] 00 the Medical morning Branch and 1 capsule at noon and 1 capsule in the evening. aspirin 81 2022-0 Yes [id number] 81mg Take 1 Univers mg chewable 6- tablet by ity of tablet 00:00: mouth in [place] 00 the Medical morning. Branch KCL 10 mEq 2022-0 Yes [id number] 10meq Take 1 Univers tablet 6-09 tablet by ity of 00:00: mouth in [place] 00 the Medical morning. Branch collagenase 0 Yes [id number] Apply to Univers 250 - affected ity of unit/gram 00:00: area(s) [place] ointment 00 daily. Medical Lower legs Branch with wet-to-dry dressing daily acidophilus 2022-0 Yes [id number] 1g Take 1 Univers 100 million 6-09 tablet by ity of cell tablet 00:00: mouth [place] 00 the Medical morning Branch and 1 tablet in the evening. albuterol Yes [id number] 2{puff} Inhale 2 Univers 90 6-09 Puffs ity of mcg/actuati 00:00: every 4 [place] as on inhaler 00 (four) Medical hours as Branch needed for Wheezing or Shortness of Breath. furosemide Yes [id number] 20mg Take 1 Univers 20 mg 6- tablet by ity of tablet 00:00: mouth in [place] 00 the Medical morning. Branch levothyroxi 0 Yes [id number] 75ug Take 1 Univers ne 75 mcg 6- tablet by ity o f tablet 00:00: mouth [place] 00 every Medical morning. Branch levalbutero Yes [id number] 1.25mg Inhale Univers l 1.25 mg/3 6-09 1.25 mg ity o f mL 00:00: every 4 [place] nebulizer 00 (four) Medical solution hours as Branch needed for Wheezing or Shortness of Breath. gabapentin 0 Yes [id number] 100mg Take 1 Univers 100 mg 6- capsule by ity of capsule 00:00: mouth in [place] 00 the Medical morning Branch and 1 capsule at noon and 1 capsule in the evening. aspirin 81 0 Yes [id number] 81mg Take 1 Univers mg chewable 6- tablet by ity of tablet 00:00: mouth in [place] 00 the Medical morning. Branch KCL 10 mEq 0 Yes [id number] 10meq Take 1 Univers tablet 6-09 tablet by ity of 00:00: mouth in [place] 00 the Medical morning. Branch collagenase 0 Yes [id number] Apply to Univers 250 - affected ity of unit/gram 00:00: area(s) [place] ointment 00 daily. Medical Lower legs Branch with wet-to-dry dressing daily doxycycline 2022-0 2022- No [id number] 100mg Take 1 Univers hyclate 100 11-14 06-20 capsule by i ty of mg capsule 00:00: 04:59 mouth [place] 00 :00 every 12 Medical (twelve) Branch hours for 10 days. doxycycline 2022- No [id number] 100mg Take 1 Univers hyclate 100 11-14 [...] First dose Branch (after last reorder) on Thu11/13/22 at 0900, Until Discontinu ed, Routine glucagon Yes 1mg 1 mg, Univers (GLUCAGEN 11-13 Intramuscu ity of DIAGNOSTIC 04:51: [place], PRN, [place] KIT) 06 Starting Medical injection 1 on Thu Branch mg 11/12/22 at 2351, Until Discontinu ed, CEM, Blood Glucose < or = 70 mg/dL and patient is NPO, unable to swallow or has mental changes. dextrose 50 0 Yes 25mL 25 mL, Univ ers % [...] PF No 25ug/h 25-200 U nivers (SUBLIMAZE) 11-12-08 mcg/hr ity o f STD 2,500 19:54: [...] No 20mg 20 mg, Univ ers (PEPCID 11-1209 Slow IV ity of (PF)) 15:30: 15:56 Push, [place] injection 00 :24 Q24H, Medical 20 mg First dose Branch on Thu11/12/22 at 1030, Until Discontinu ed, Routine lidocaine 2022- No 5mL 5 mL, Univer s 1% (PF) 11-12 Subcutaneo ity o f (XYLOCAINE) 14:15: 15:15 [...] .05ug/k 0.05-0.5 Univers ine 4 mg in 11-12 g/min mcg/kg/min ity of 0.9% NaCl 01:29: 01:28 ?49 kg [place] 250 mL 21 :21 (9.1875-91 Medical infusion .875 Branch RTU mL/hr, rounded to 9.19-91.88 mL/hr), IV Infusion, TITRATE, MAP Goal > or = 65 mmHg, Starting on Thu11/11/22 at 9, For 24 hours
I nitiate titration at [...] ity of 0.02 % 01:00: , TID, [place] nebulizer 00 First dose Medi santo solution on e Branch 0.5 mg 11/11/22 at 1999, Until Discontinu ed, Routine levalbutero Yes 1.25mg 1.25 mg, Univers l (XOPENEX) 11-12 Inhalation it y of nebulizer 01:00: , TID, [place] solution 00 First dose Medic al 1.25 mg on [facility] Branch 11/11/22 at 1999, Until Discontinu ed, [...] ty of succ 01:00: 14:10 s, Q12H, [place] (SOLU-MEDRO 00 :08 First dose Me dical L (PF)) on Branch injection 11/11/22 at 40 mg 1999, Until Discontinu ed, 1 mL propofoL IV 2022- No 5ug/kg/ 5-50 Un jacinda infusion 11-11 min mcg/kg/min ity of 23:56: 18:54 ?49 kg [place] 11 :15 (1.47-14.7 Medical mL/hr), IV Branch [...] 30 mg 00 First dose Medical on [facility] 11/11/22 at 1700, Until Discontinu ed, Routine [...] Medic al (NS) 100 mL 10 doses, [facility] MINI-BAG First dose on Thu11/11/22 at 1100, Last dose on [facility] 11/15/22 at 2300, Administer over 4 Hours, 100 mL
Reas on for Anti-Infec tive: Empiric Therapy for Suspected Infection< br>Empiric Therapy Site: Skin / Soft tissue
Duration of therapy: 5 days vancomycin No 500mg 500 mg, IV Univers (VANCOCIN) 11-11 Piggyback, it y of 500 mg in 12:30: 00:30 Q12H ABX, [place] NaCl 0.9% 00 :07 First dose Medi santo (NS) 100 mL on [facility] MINI-BAG 11/11/22 at 0730, Until Discontinu ed, [...] TIMES PER Branch DAY WITH FOOD potassium 2023-0 Yes TAKE 1 Univer s chloride 10 [...] PER Branch DAY WITH FOOD potassium 3-0 3- No TAKE 1 Unive rs chloride 10 3-31 06-09 CAPSULE ity of mEq CR 00:00: 00:00 (10 MEQ) [place] capsule 00 :00 BY MOUTH 1 Medica l TIMES PER Branch DAY WITH FOOD HEMOCYTE-PL 2022-0 Yes TAKE 1 Univ ers US 106 [...] EVERY DAY Medical WITH Branch BREAKFAST HEMOCYTE-PL 2022-0 3- No TAKE 1 Uni vers US 106 mg 3-23 06-09 CAPSULE BY ity of iron- 1 mg 00:00: 00:00 MOUTH [place] Cap 00 :00 EVERY DAY Medical WITH Branch BREAKFAST lisinopriL 3-0 Yes 10mg Take 1 Unive rs 10 mg 3-01 tablet by ity of tablet 00:00: mouth in [place] 00 the Medical morning. Branch metoprolol 3-0 [...] 00 the Medical morning. Branch lisinopriL 3-0 Yes 10mg Take 1 Unive rs 10 mg 3-01 tablet by ity of tablet 00:00: mouth in [place] 00 the Medical morning. Branch metoprolol 3-0 Yes 50mg Take 1 Unive rs succinate 3-01 tablet by ity o f XL 50 mg 24 00:00: mouth [place] hr tablet 00 the Medical morning. Branch lisinopriL 3-0 Yes 10mg Take 1 Unive rs 10 mg 3-01 tablet by ity of tablet 00:00: mouth in [place] 00 the Medical morning. Branch metoprolol 3-0 Yes 50mg Take 1 Unive rs succinate 3-01 tablet by ity o f XL 50 mg 24 00:00: mouth in [place] hr tablet 00 the Medical morning. Branch lisinopriL 3-0 Yes 10mg Take 1 Unive rs 10 mg 3-01 tablet by ity of tablet 00:00: mouth in [place] 00 the Medical morning. Branch metoprolol 3-0 Yes 50mg Take 1 Unive rs succinate 3-01 tablet by ity o f XL 50 mg 24 00:00: mouth [place] hr tablet 00 the Medical morning. Branch lisinopriL 2022-0 2022- No 10mg Take 1 Univ ers 10 mg 3-01 -09 tablet by ity of tablet 00:00: 00:00 mouth in [place] 00 :00 the Medical morning. Branch metoprolol 2022-2022- No 50mg Take 1 Univ ers succinate 3-06 13-09 tablet by ity of XL 50 mg [...] morning on an empty stomach. aspirin 81 2021-06 No 81mg QD Take [address] [facility] [...] morning on an empty stomach. aspirin 81 2021-06 No 81mg QD Take [address] [facility] [...] Center daily for 30 days. metoprolol 2021-06 50mg QD Take [address] [facility] succinate 0-23 11-22 tablet (50 [place] (TOPROL-XL) 00:00: 23:59 mg total) Medical 50 MG 24 hr 00 :00 by mouth Cent er tablet daily for 30 days. pantoprazol 2021-06 40mg QD Take [address] [facility] e [...] mouth Center daily for 30 days. metoprolol 2022-1 2022- No 50mg QD Take [address] [facility] [...] mouth Center daily for 10 days. atorvastati 2021-06- No 80mg QD Take [address] [facility] [...] 3mL Take [address] -albuteroL 0- 11-21 [facility] (Petsy) 00:00: 23:59 nebulizati M edical 0.5 mg-3 00 :00 on every 6 Cente r mg(2.5 mg (six) base)/3 mL hours for nebulizer 30 days. solution atorvastati 2021-06- No 80mg QD Take [address] [facility] n (LIPITOR) 0- 11-21 tablet (80 L ukes 80 MG [...] mLs [facility] -albuteroL 0 11-21 by [facility] (Petsy) 00:00: 23:59 nebulizati M edical 0.5 mg-3 00 :00 on every 6 Cente r mg(2.5 mg (six) base)/3 mL hours for nebulizer 30 days. solution atorvastati 2021-06- No 80mg QD Take [address] [facility] [address] n (LIPITOR) 0-22 11-21 tablet (80 L ukes 80 MG 00:00: 23:59 mg total) Medica l tablet 00 :00 by mouth Center nightly for 30 days. budesonide 2021-2021- No .25mg Q.5D Take [address] (PULMICORT) 0-22 11-21 (0.25 mg [place] 0.25 mg/2 00:00: 23:59 total) by Me dical mL 00 :00 nebulizati Center nebulizer on 2 (two) solution times daily for 30 days. ipratropium 2021-06- No 3mL Take [address] [address] -albuteroL -21 by [facility] (DUO-NEB) 00:00: 23:59 nebulizati M [...] Q.5D Take [address] (PULMICORT) 7- 07-14 (0.5 mg Luke s 0.5 mg/2 [...] mLs [facility] -albuteroL 12-19 by [place] (Petsy) 00:00: 23:59 nebulizati M edical 0.5 mg-3 00 :00 on every 4 Cente r mg(2.5 mg (four) base)/3 mL hours for nebulizer 360 days. solution ipratropium 2021- No 3mL Take [address] -albuteroL 12-19 by [place] (Petsy) 00:00: 23:59 nebulizati M edical 0.5 mg-3 00 :00 on every 4 Cente r mg(2.5 mg (four) base)/3 mL hours for nebulizer 360 days. solution ipratropium 2021- No 3mL Take [address] -albuteroL 12-19 by [place] (Petsy) 00:00: 23:59 nebulizati M edical 0.5 mg-3 00 :00 on every 4 Cente r mg(2.5 mg (four) base)/3 mL hours for nebulizer 360 days. solution levothyroxi Yes 75ug Take 75 Uni vers ne 75 mcg 6-30 mcg by ity of tablet 01:00: mouth [place] 27 every Medical morning. Branch levothyroxi Yes 75ug Take 75 Uni vers ne 75 mcg 6-30 mcg by ity of tablet 01:00: mouth [place] 27 every Medical morning. Branch vitamin Yes [id number] 1000ug Take 1 U nivers B-12 1,000 6-30 tablet by ity of mcg tablet 00:00: mouth [place] 00 daily. Medical Branch vitamin Yes [id number] 1000ug Take 1 U nivers B-12 1,000 6-30 tablet by ity of mcg tablet 00:00: mouth [place] 00 daily. [facility] Branch vitamin 2021-0 Yes [id number] 1000ug Take 1 U nivers B-12 1,000 6-30 tablet by ity of mcg tablet 00:00: mouth [place] 00 daily. [facility] Branch vitamin 2021-0 Yes [id number] 1000ug Take 1 U nivers B-12 1,000 6-30 tablet by ity of mcg tablet 00:00: mouth [place] 00 daily. [facility] Branch vitamin 2021-0 Yes [id number] 1000ug Take 1 U nivers B-12 1,000 6-30 tablet by ity of mcg tablet 00:00: mouth [place] 00 daily. [facility] Branch vitamin 2021-0 Yes [id number] 1000ug Take 1 U nivers B-12 1,000 6-30 tablet by ity of mcg tablet 00:00: mouth [place] 00 daily. [facility] vitamin 2021-0 Yes [id number] 1000ug Take 1 U nivers B-12 1,000 6-30 tablet by ity of mcg tablet 00:00: mouth [place] 00 daily. [facility] vitamin 2021-0 Yes [id number] 1000ug Take 1 U nivers B-12 1,000 6-30 tablet by ity of mcg tablet 00:00: mouth [place] 00 daily. [facility] vitamin 2021-0 Yes [id number] 1000ug Take 1 U nivers B-12 1,000 6-30 tablet by ity of mcg tablet 00:00: mouth [place] 00 daily. [facility] vitamin 2021-0 Yes [id number] 1000ug Take 1 U nivers B-12 1,000 6-30 tablet by ity of mcg tablet 00:00: mouth [place] 00 daily. [facility] vitamin 2021-0 Yes [id number] 1000ug Take 1 U nivers B-12 1,000 6-30 tablet by ity of mcg tablet 00:00: mouth [place] 00 daily. [facility] Branch vitamin 2021-0 Yes [id number] 1000ug Take 1 U nivers B-12 1,000 6-30 tablet by ity of mcg tablet 00:00: mouth [place] 00 daily. [facility] vitamin 2021-0 Yes [id number] 1000ug Take 1 U nivers B-12 1,000 6-30 tablet by ity of mcg tablet 00:00: mouth [place] 00 daily. [facility] vitamin 2021-0 Yes [id number] 1000ug Take 1 U nivers B-12 1,000 6-30 tablet by ity of mcg tablet 00:00: mouth [place] 00 daily. Medical Branch vitamin 2020-3- No [id number] 1000ug Take 1 Univers B-12 1,000 6-30 06-09 tablet by ity of mcg tablet 00:00: 00:00 mouth [place] 00 :00 daily. Medical Branch levothyroxi 0 Yes 75ug Take 75 Uni vers ne 75 mcg 6-29 mcg by ity of tablet 20:00: mouth [place] 27 every Medical morning. Branch levothyroxi Yes 75ug Take 75 Uni vers ne 75 mcg 6-29 mcg by ity of tablet 20:00: mouth [place] 27 every Medical morning. Branch levothyroxi Yes 75ug Take 75 Uni vers ne 75 mcg 6-29 mcg by ity of tablet 20:00: mouth [place] 27 every Medical morning. Branch levothyroxi Yes 75ug Take 75 Uni vers ne 75 mcg 6-29 mcg by ity of tablet 20:00: mouth [place] 27 every Medical morning. Branch levothyroxi Yes 75ug Take 75 Uni vers ne 75 mcg 6-29 mcg by ity of tablet 20:00: mouth [place] 27 every Medical morning. Branch levothyroxi Yes 75ug Take 75 Uni vers ne 75 mcg 6-29 mcg by ity of tablet 20:00: mouth [place] 27 every Medical morning. Branch levothyroxi Yes 75ug Take 75 Uni vers ne 75 mcg 6-29 mcg by ity of tablet 20:00: mouth [place] 27 every Medical morning. Branch levothyroxi 0 Yes 75ug Take 75 Uni vers ne 75 mcg 6-29 mcg by ity of tablet 20:00: mouth [place] 27 every Medical morning. Branch levothyroxi Yes 75ug Take 75 Uni vers ne 75 mcg 6-29 mcg by ity of tablet 20:00: mouth [place] 27 every Medical morning. Branch levothyroxi Yes 75ug Take 75 Uni vers ne 75 mcg 6-29 mcg by ity of tablet 20:00: mouth [place] 27 every Medical morning. Branch levothyroxi Yes 75ug Take 75 Uni vers ne 75 mcg 6-29 mcg by ity of tablet 20:00: mouth [place] 27 every Medical morning. Branch levothyroxi Yes 75ug Take 75 Uni vers ne 75 mcg 6-29 mcg by ity of tablet 20:00: mouth [place] 27 every Medical morning. Branch vitamin Yes 1000ug 1,000 mcg, Un jacinda B-12 6-29 Oral, ity of (CYANOCOBAL 14:00: DAILY, [place] 00 First dose Medical tablet on Thu Branch 1,000 mcg 12/04/20 at 0900, Until Discontinu ed, Routine albuterol Yes [id number] 2{puff} Inhale 2 Univers 90 6-29 Puffs ity of mcg/actuati 00:00: every 6 [place] as on inhaler 00 (six) Medical hours as Branch needed for Wheezing or Shortness of Breath. albuterol Yes [id number] 2{puff} Inhale 2 Univers 90 6-29 Puffs ity of mcg/actuati 00:00: every 6 [place] as on inhaler 00 (six) Medical hours as Branch needed for Wheezing or Shortness of Breath. albuterol Yes [id number] 2{puff} Inhale 2 Univers 90 6-29 Puffs ity of mcg/actuati 00:00: every 6 [place] as on inhaler 00 (six) Medical hours as Branch needed for Wheezing or Shortness of Breath. albuterol Yes [id number] 2{puff} Inhale 2 Univers 90 6-29 Puffs ity of mcg/actuati 00:00: every 6 [place] as on inhaler 00 (six) Medical hours as Branch needed for Wheezing or Shortness of Breath. albuterol Yes [id number] 2{puff} Inhale 2 Univers 90 6-29 Puffs ity of mcg/actuati 00:00: every 6 [place] as on inhaler 00 (six) Medical hours as Branch needed for Wheezing or Shortness of Breath. albuterol Yes [id number] 2{puff} Inhale 2 Univers 90 6-29 Puffs ity of mcg/actuati 00:00: every 6 [place] as on inhaler 00 (six) Medical hours as Branch needed for Wheezing or Shortness of Breath. albuterol Yes [id number] 2{puff} Inhale 2 Univers 90 6-29 Puffs ity of mcg/actuati 00:00: every 6 [place] as on inhaler 00 (six) Medical hours as Branch needed for Wheezing or Shortness of Breath. albuterol Yes [id number] 2{puff} Inhale 2 Univers 90 6-29 Puffs ity of mcg/actuati 00:00: every 6 [place] as on inhaler 00 (six) Medical hours as Branch needed for Wheezing or Shortness of Breath. albuterol Yes [id number] 2{puff} Inhale 2 Univers 90 6-29 Puffs ity of mcg/actuati 00:00: every 6 [place] as on inhaler 00 (six) Medical hours as Branch needed for Wheezing or Shortness of Breath. albuterol Yes [id number] 2{puff} Inhale 2 Univers 90 6-29 Puffs ity of mcg/actuati 00:00: every 6 [place] as on inhaler 00 (six) Medical hours as Branch needed for Wheezing or Shortness of Breath. albuterol Yes [id number] 2{puff} Inhale 2 Univers 90 6-29 Puffs ity of mcg/actuati 00:00: every 6 Juni as on inhaler 00 (six) Medical hours as Branch needed for Wheezing or Shortness of Breath. albuterol Yes [id number] 2{puff} Inhale 2 Univers 90 6-29 Puffs ity of mcg/actuati 00:00: every 6 [place] on inhaler 00 (six) Medical hours as Branch needed for Wheezing or Shortness of Breath. albuterol Yes [id number] 2{puff} Inhale 2 Univers 90 6-29 Puffs ity of mcg/actuati 00:00: every 6 [place] on inhaler 00 (six) Medical hours as Branch needed for Wheezing or Shortness of Breath. albuterol Yes [id number] 2{puff} Inhale 2 Univers 90 6-29 Puffs ity of mcg/actuati 00:00: every 6 [place] on inhaler 00 (six) Medical hours as Branch needed for Wheezing or Shortness of Breath. albuterol 2022- No [id number] 2{puff} Inhale 2 Univers 90 12-04-09 Puffs ity of mcg/actuati 00:00: 00:00 every 6 [place] on inhaler 00 :00 (six) Medical hours as Branch needed for Wheezing or Shortness of Breath. KCL No 40meq 40 mEq, Univers (KLOR-CON 12-01 Oral, ity of M20) tablet 14:15: 13:20 ONCE, 1 [place] 40 mEq 00 :00 dose, [facility] Medical 12/01/20 at Branch 0915, Routine lactated No 500mL at 999 Unive rs ringers IV 11-29-24 mL/hr, 500 it y of infusion 01:15: 02:00 mL, [place] 500 mL 00 :00 Intravenou Medical s, ONCE, 1 Branch dose, [facility] 11/28/20 at 2015, Routine furosemide Yes 20mg [...] ed, Routine predniSONE No 40mg 40 mg, Univ ers (DELTASONE) [...] 00 First dose Medi santo %) on Thu nebulizer 11/27/20 at solution 2000, 2.5 mg Until Discontinu ed, Routine ceFEPIme No 2000mg 2,000 mg, U nivers (MAXIPIME) 11-28 IV ity of 2,000 mg in 00:15: 14:42 Piggyback, [place] NaCl 0.9% 00 :22 Q8H ABX, Medica [...] dose Medi santo (NS) 100 mL on MINI-BAG 11/27/20 at 1815, Until Discontinu ed, [...]
Durat ion of therapy: 72 hours glucagon 2020-0 Yes 1mg 1 mg, Univers (GLUCAGEN 11-27 Intramuscu ity of DIAGNOSTIC 22:25: lar, PRN, [place] KIT) 31 Starting Medical injection 1 Tue Branch mg 11/27/20 at 1725, Until Discontinu ed, CEM, Blood Glucose < or = 70 mg/dL and patient is unable to swallow or has mental changes. dextrose 50 2020- Yes 25mL 25 mL, Univ ers % in water 11-27 Slow IV ity of (D50W) 22:25: Push, PRN, [place] injection 31 Starting Medica l 25 mL Tue Branch 11/27/20 at 1725, Until Discontinu ed, CEM, Blood Glucose < or = 70 mg/dL and patient is unable to swallow or has mental status changes. cefTRIAXone 2020-2020- No 1000mg 1,000 mg, Univers (ROCEPHIN) 11-27 IV ity of 1,000 mg in 18:15: 18:16 [facility], [place] NaCl 0.9% 00 :00 ONCE, 1 Medical (NS) 50 mL dose, Tue Bran ch MINI-BAG 11/27/20 at 1315, 50 mL
Reas on for Anti-Infec tive: Documented Infection< br>Documen cristhian Infection Site: Respirator y
Durat ion of Therapy: 10 days magnesium 2020-0 2020- No 2g 2 g, IV Univ ers sulfate in 11-27 Piggyback, it y of water 2 16:45: 18:00 ONCE, 1 [place] gram/50 mL 00 :00 dose, Tue Medi santo (4 %) 11/27/20 at Branch infusion 2 1145, g Routine methylpredn 2020-0 2020- No 125mg 125 mg, IV Univers isolone sod 11-27 Piggyback, i ty of succ 16:45: 15:47 ONCE, 1 [place] (SOLU-MEDRO 00 :00 dose, Tue Med ical L) 11/27/20 at [place] injection 1145, STAT 125 mg ipratropium 2020- No 3mL 3 mL, Univ ers -albuteroL 11-27 Inhalation it y of (DUONEB) 16:45: 15:36 , ONCE, 1 Jun[place] as 0.5 mg-3 00 :00 dose, Tue Medica l mg(2.5 mg 11/27/20 at [facility])/3 mL 1145, nebulizer Routine solution 3 mL cefdinir Yes 600mg 600 mg, Unive rs (OMNICEF) 6 Oral, ity of capsule 600 14:00: DAILY, [place] mg 00 First dose Medical (after [place] last modificati on) on Thu11/14/20 at 0900, Until Discontinu ed, CEM
Re ason for Anti-Infec tive: Empiric Therapy for Suspected Infection< br>Empiric Therapy Site: Skin / Soft tissue
Duration of therapy: 72 hours levothyroxi 0 Yes 75ug Take 75 Uni vers ne 75 mcg 6-08 mcg by ity of tablet 21:50: mouth [place] 33 every Medical morning. [place] levothyroxi Yes 75ug Take 75 Uni vers ne 75 mcg 6-08 mcg by ity of tablet 21:50: mouth [place] 33 every Medical morning. [place] levothyroxi 0 Yes 75ug Take 75 Uni vers ne 75 mcg 6-08 mcg by ity of tablet 21:50: mouth [place] 33 every Medical morning. [place] lactobacill Yes .5mg 0.5 mg, Uni vers [...] Until Discontinu ed, Routine furosemide 2020-0 Yes [id number] 20mg Take 1 Univers 20 mg 6-08 tablet by ity of tablet 00:00: mouth [place] 00 daily. Medical Branch acidophilus 2020-0 Yes [id number] 1g Take 1 Univers 100 million 6-08 tablet by ity of cell tablet 00:00: mouth 2 Jun[place] as 00 (two) Medical times Branch daily. Bismuth 2020-0 Yes [id number] Apply to [facility]-Pet 6-08 lower ity of [facility], 00:00: extremity [place] (XEROFORM 00 wounds Medical PETROLATUM with Branch DRESSING) 4 Kerlix X 4 " Bndg wrap and change daily furosemide 2020-0 Yes [id number] 20mg Take 1 Univers 20 mg 6-08 tablet by ity of tablet 00:00: mouth [place] 00 daily. Medical Branch acidophilus 2020-0 Yes [id number] 1g Take 1 Univers 100 million 6-08 tablet by ity of cell tablet 00:00: mouth 2 Jun[place] as 00 (two) Medical times Branch daily. Bismuth 2020-0 Yes [id number] Apply to [facility]-Pet 6-08 lower ity of [facility], 00:00: extremity [place] (XEROFORM 00 wounds Medical PETROLATUM with Branch DRESSING) 4 Kerlix X 4 " Bndg wrap and change daily furosemide 2020-0 Yes [id number] 20mg Take 1 Univers 20 mg 6-08 tablet by ity of tablet 00:00: mouth [place] 00 daily. Medical Branch acidophilus 2020-0 Yes [id number] 1g Take 1 Univers 100 million 6-08 tablet by ity of cell tablet 00:00: mouth 2 Jun[place] as 00 (two) Medical times Branch daily. Bismuth 2020-0 Yes [id number] Apply to [facility]-Pet 6-08 lower ity of [facility], 00:00: extremity [place] (XEROFORM 00 wounds Medical PETROLATUM with Branch DRESSING) 4 Kerlix X 4 " Bndg wrap and change daily furosemide 2020-0 Yes [id number] 20mg Take 1 Univers 20 mg 6-08 tablet by ity of tablet 00:00: mouth [place] 00 daily. Medical Branch acidophilus 2020-0 Yes [id number] 1g Take 1 Univers 100 million 6-08 tablet by ity of cell tablet 00:00: mouth 2 [place] as 00 (two) Medical times Branch daily. Bismuth 2021-0 Yes [id number] Apply to [facility]Pet 6-[facility]: extremity [place] (XEROFORM 00 wounds Medical PETROLATUM with Branch DRESSING) 4 Kerlix X 4 " Bndg wrap and change daily furosemide 2020-0 Yes [id number] 20mg Take 1 Univers 20 mg 6-08 tablet by ity of tablet 00:00: mouth [place] 00 daily. Medical Branch acidophilus 2020-0 Yes [id number] 1g Take 1 Univers 100 million 6-08 tablet by ity of cell tablet 00:00: mouth 2 [place] as 00 (two) Medical times Branch daily. Bismuth 0 Yes [id number] Apply to [facility]Pet 6-08 lower ity of [place] 00:00: extremity [place] (XEROFORM 00 wounds Medical PETROLATUM with Branch DRESSING) 4 Kerlix X 4 " Bndg wrap and change daily furosemide 0 Yes [id number] 20mg Take 1 Univers 20 mg 6-08 tablet by ity of tablet 00:00: mouth [place] 00 daily. Medical Branch acidophilus 0 Yes [id number] 1g Take 1 Univers 100 million 6-08 tablet by ity of cell tablet 00:00: mouth 2 Jun[place] as 00 (two) Medical times Branch daily. Bismuth 0 Yes [id number] [facility]: extremity [place] (XEROFORM 00 wounds Medical PETROLATUM with Branch DRESSING) 4 Kerlix X 4 " Bndg wrap and change daily furosemide 0 Yes [id number] 20mg Take 1 Univers 20 mg 6-08 tablet by ity of tablet 00:00: mouth [place] 00 daily. Medical Branch acidophilus 2020-0 Yes [id number] 1g Take 1 Univers 100 million 6-08 tablet by ity of cell tablet 00:00: mouth 2 Jun[place] as 00 (two) Medical times Branch daily. Bismuth 0 Yes [id number] [facility] lower ity of [place] 00:00: extremity [place] (XEROFORM 00 wounds Medical PETROLATUM with Branch DRESSING) 4 Kerlix X 4 " Bndg wrap and change daily furosemide 2020-0 Yes [id number] 20mg Take 1 Univers 20 mg 6-08 tablet by ity of tablet 00:00: mouth [place] 00 daily. Medical Branch acidophilus 2020-0 Yes [id number] 1g Take 1 Univers 100 million 6-08 tablet by ity of cell tablet 00:00: mouth 2 [place] as 00 (two) Medical times Branch daily. Bismuth 2020-0 Yes [id number] Apply to U nivers [facility]-Pet 6-08 lower ity of [place] 00:00: extremity [place] (XEROFORM 00 wounds Medical PETROLATUM with Branch DRESSING) 4 Kerlix X 4 " Bndg wrap and change daily furosemide 0 Yes [id number] 20mg Take 1 Univers 20 mg 6-08 tablet by ity of tablet 00:00: mouth [place] 00 daily. Medical Branch acidophilus 2020-0 Yes [id number] 1g Take 1 Univers 100 million 6-08 tablet by ity of cell tablet 00:00: mouth 2 [place] as 00 (two) Medical times Branch daily. Bismuth 0 Yes [id number] [facility] 00:00: extremity [place] (XEROFORM 00 wounds Medical PETROLATUM with Branch DRESSING) 4 Kerlix X 4 " Bndg wrap and change daily furosemide 2020-0 Yes [id number] 20mg Take 1 Univers 20 mg 6-08 tablet by ity of tablet 00:00: mouth [place] 00 daily. Medical Branch acidophilus 2020-0 Yes [id number] 1g Take 1 Univers 100 million 6-08 tablet by ity of cell tablet 00:00: mouth 2 [place] as 00 (two) Medical times Branch daily. Bismuth 2020-0 Yes [id number] [facility] lower ity of [place] 00:00: extremity [place] (XEROFORM 00 wounds Medical PETROLATUM with Branch DRESSING) 4 Kerlix X 4 " Bndg wrap and change daily furosemide 2020-0 Yes [id number] 20mg Take 1 Univers 20 mg 6-08 tablet by ity of tablet 00:00: mouth [place] 00 daily. Medical Branch acidophilus 2020-0 Yes [id number] 1g Take 1 Univers 100 million 6-08 tablet by ity of cell tablet 00:00: mouth 2 [place] 00 (two) Medical times Branch daily. Bismuth 2020-0 Yes [id number] [facility], 00:00: extremity [place] (XEROFORM 00 wounds Medical PETROLATUM with Branch DRESSING) 4 Kerlix X 4 " Bndg wrap and change daily furosemide 2020-0 Yes [id number] 20mg Take 1 Univers 20 mg 6-08 tablet by ity of tablet 00:00: mouth [place] 00 daily. Medical Branch acidophilus 2020-0 Yes [id number] 1g Take 1 Univers 100 million 6-08 tablet by ity of cell tablet 00:00: mouth 2 [place] 00 (two) Medical times Branch daily. Bismuth 2020-0 Yes [id number] [facility], 00:00: extremity [place] (XEROFORM 00 wounds Medical PETROLATUM with Branch DRESSING) 4 Kerlix X 4 " Bndg wrap and change daily furosemide 2020-0 Yes [id number] 20mg Take 1 Univers 20 mg 6-08 tablet by ity of tablet 00:00: mouth [place] 00 daily. Medical Branch acidophilus 2020-0 Yes [id number] 1g Take 1 Univers 100 million 6-08 tablet by ity of cell tablet 00:00: mouth 2 [place] 00 (two) Medical times Branch daily. Bismuth 2020-0 Yes [id number] [facility] 00:00: extremity [place] (XEROFORM 00 wounds Medical PETROLATUM with Branch DRESSING) 4 Kerlix X 4 " Bndg wrap and change daily furosemide 2020-0 Yes [id number] 20mg Take 1 Univers 20 mg 6-08 tablet by ity of tablet 00:00: mouth [place] 00 daily. Medical Branch acidophilus 2020-0 Yes [id number] 1g Take 1 Univers 100 million 6-08 tablet by ity of cell tablet 00:00: mouth 2 [place] 00 (two) Medical times Branch daily. Bismuth 2020-0 Yes [id number] [facility] 00:00: extremity [place] (XEROFORM 00 wounds Medical PETROLATUM with Branch DRESSING) 4 Kerlix X 4 " Bndg wrap and change daily furosemide 0 Yes [id number] 20mg Take 1 Univers 20 mg 6-08 tablet by ity of tablet 00:00: mouth [place] 00 daily. Medical Branch acidophilus 2020-0 Yes [id number] 1g Take 1 Univers 100 million 6-08 tablet by ity of cell tablet 00:00: mouth 2 [place] 00 (two) Medical times Branch daily. Bismuth 2020-0 Yes [id number] [facility], 00:00: extremity [place] (XEROFORM 00 wounds Medical PETROLATUM with Branch DRESSING) 4 Kerlix X 4 " Bndg wrap and change daily furosemide 0 Yes [id number] 20mg Take 1 Univers 20 mg 6-08 tablet by ity of tablet 00:00: mouth [place] 00 daily. Medical Branch acidophilus 2020-0 Yes [id number] 1g Take 1 Univers 100 million 6-08 tablet by ity of cell tablet 00:00: mouth 2 [place] as 00 (two) Medical times Branch daily. Bismuth 2020-0 Yes [id number] [facility], 00:00: extremity [place] (XEROFORM 00 wounds Medical PETROLATUM with Branch DRESSING) 4 Kerlix X 4 " Bndg wrap and change daily furosemide 2020-0 Yes [id number] 20mg Take 1 Univers 20 mg 6-08 tablet by ity of tablet 00:00: mouth [place] 00 daily. Medical Branch acidophilus 0 Yes [id number] 1g Take 1 Univers 100 million 6-08 tablet by ity of cell tablet 00:00: mouth 2 [place] as 00 (two) Medical times Branch daily. Bismuth 2020-0 Yes [id number] [facility], 00:00: extremity [place] (XEROFORM 00 wounds Medical PETROLATUM with Branch DRESSING) 4 Kerlix X 4 " Bndg wrap and change daily furosemide 2020-0 2023- No [id number] 20mg Take 1 Univers 20 mg 6-08 06-09 tablet by ity of tablet 00:00: 00:00 mouth [place] 00 :00 daily. Medical Branch acidophilus 2022- No [id number] 1g Take 1 Univers 100 million 11-13 tablet by it y of cell tablet 00:00: 00:00 mouth 2 [place] 00 :00 (two) Medical times Branch daily. Bismuth 2022- No [id number] Apply to Univers Trib[facility]-Pet 11-13 lower ity of [place] 00:00: 00:00 extremity [place] (XEROFORM 00 :00 wounds Medical PETROLATUM with Branch DRESSING) 4 Kerlix X 4 " Bndg wrap and change daily levoFLOXaci 2020- No [id number] 500mg Take 20 mL Univers n 250 mg/10 11-13 by mouth ity of mL solution 00:00: 04:59 every 24 [place] 00 :00 (twenty-fo Medical ur) hours Branch for 7 days. levoFLOXaci 2020- No [id number] 500mg Take 20 mL Univers n 250 [...] :11 First dose Me dical VIAL-MATE on Thu Branch 11/12/20 at 1830, Until Discontinu ed, 250 mL
R corina for Anti-Infec tive: Documented Infection< br>Documen cristhian Infection Site: Skin / Soft Tissue
Duration of Therapy: 7 days mupirocin 2020- No Univers (BACTROBAN 11-11 ity of OINT) 2 % 16:00: 23:05 [place] skin 00 :21 Medical ointment Branch ceFEPIme 2020- No 1000mg 1,000 mg, U nivers (MAXIPIME) 6-06 06-08 IV ity of 1,000 mg in 02:00: 15:50 Piggyback, [place] NaCl 0.9% 00 :11 Q12H ABX, Medic al (NS) 50 mL [facility]I-BAG on [facility] 11/10/20 at 2100, Until Discontinu ed, 50 mL
R corina for Anti-Infec tive: Documented Infection< br>Documen cristhian Infection Site: Blood
D uration of Therapy: 7 days vancomycin 2020- No 500mg 500 mg, IV Univers (VANCOCIN) 11-10 0607 Piggyback, it y of 500 mg in 23:30: 13:49 Q12H ABX, [place] NaCl 0.9% 00 :27 First dose Medi santo (NS) 100 mL on [facility] MINI-BAG 11/10/20 at 1830, Until Discontinu ed, 100 mL
R corina for Anti-Infec tive: Documented Infection< br>Documen cristhian Infection Site: Skin / Soft Tissue
Duration of Therapy: 7 days iopamidol 2020- No [id number] 100mL 100 mL, Univers (ISOVUE 11-10-05 Intravenou ity o f 370-500 mL) 19:15: 17:45 s, ONCE, 1 [place] injection 00 :00 dose, [facility] Medic al 100 mL 11/10/20 at Branch 1415, Routine amLODIPine Yes 5mg 5 mg, Univer s (NORVASC) 11-10 Oral, ity of tablet 5 mg 14:00: DAILY, [place] 00 First dose Medical on [facility] 11/10/20 at 0900, Until Discontinu ed, Routine enoxaparin Yes 40mg 40 mg, Unive rs (LOVENOX) 05 Subcutaneo ity of injection 14:00: us, DAILY, [place] 40 mg 00 First dose Medical on [facility] 11/10/20 at 0900, Until Discontinu ed, Routine ipratropium Yes 3mL 3 mL, Unive rs -albuteroL 11-10 Inhalation ity of (DUONEB) 13:00: , QID, [place] 0.5 mg-3 00 First dose Medic al mg(2.5 mg on Sat Branch base)/3 mL 11/10/20 at nebulizer 0800, [...] 11-10 Oral, ity of mg 10:25: 14:04 Q6[place], [place] 14 :54 Starting Medical 11/10/20 Branch [...] 11-10 IV Push, ity of (PF)) 10:05: Q6[place], [place] injection 4 13 Starting Medi santo mg 11/10/20 Branch at 0505, Until Discontinu ed, Routine, Nausea and Vomiting (N/V) acetaminoph Yes 650mg 650 mg, Un jacinda en 11-10 Oral, ity of (TYLENOL) 10:04: Q6[place], [place] tablet 650 55 Starting Medic al [...] 2022-11-14 21:00:00 138 mm[Hg] Univer sity of [facility] Diastolic blood 2022-11-14 21:00:00 77 mm[Hg] [facility] Heart rate 2022-11-14 21:00:00 78 /min [facility] ty [facility] Body temperature 2022-11-14 21:00:00 36.94 [facility] Respiratory rate 2022-11-14 21:00:00 22 /min Univ [facility] Oxygen saturation in 2022-11-14 21:00:00 90 /min [facility] Arterial blood by [facility] Pulse oximetry [place] Body weight 2022-11-14 09:00:00 46.993 kg Universi ty [facility] BMI 2022-11-14 09:00:00 15.75 kg/m2 Universi [facility] Body height 2022-11-11 17:57:00 172.7 cm Universi [facility] Systolic blood 2022-10-10 15:44:00 156 mm[Hg] Univer sity of [facility] Diastolic blood 2022-10-10 15:44:00 85 mm[Hg] Unive rsity of [facility] Heart rate 2022-10-10 15:44:00 75 [facility] Body height 2022-10-10 15:44:00 170.2 cm Universi ty [facility] Body weight 2022-10-10 15:44:00 50.576 kg Univers ty [facility] BMI 2022-10-10 15:44:00 17.46 kg/m2 Universi ty of [facility] Body height 2022-09-12 13:57:00 170.2 cm Universi ty of [facility] Body weight 2022-09-12 13:57:00 54.432 kg Universi ty of [facility] BMI 2022-09-12 13:57:00 18.79 kg/m2 Universi ty of [facility] WEIGHT 2022-03-29 06:00:00 49.714 kg HEIGHT 2022-03-27 [...] 20:26:00 114 mm[Hg] Univer sity of pressure [facility] Diastolic blood 2020-12-04 20:26:00 84 mm[Hg] Unive rsity of pressure [facility] Heart rate 2020-12-04 20:26:00 97 /min Universi ty of [facility] Body temperature 2020-12-04 20:26:00 37.33 Charlene Univ ersity [facility] Respiratory rate 2020-12-04 20:26:00 20 /min [facility] Oxygen saturation in 2020-12-04 20:26:00 96 /min [facility] Arterial blood by [facility] Pulse oximetry Branch Body height 2020-11-27 22:06:00 172.7 cm Universi ty of [place] [facility] Body weight 2020-11-27 22:06:00 44 kg Universi ty of [place] [facility] BMI 2020-11-27 22:06:00 14.75 kg/m2 Universi ty of [place] [facility] Systolic blood 2020-12-04 20:26:00 114 mm[Hg] Univer sity of pressure [place] [facility] Diastolic blood 2020-12-04 20:26:00 84 mm[Hg] Unive rsity of pressure [place] [facility] Heart rate 2020-12-04 20:26:00 97 /min Universi ty of [place] [facility] Body temperature 2020-12-04 20:26:00 37.33 Charlene Univ ersity of [place] [facility] Respiratory rate 2020-12-04 20:26:00 20 /min Univ ersity of [place] [facility] Oxygen saturation in 2020-12-04 20:26:00 96 /min University of Arterial blood by [place] [employer] Pulse oximetry Branch Body height 2020-11-27 22:06:00 172.7 cm Universi ty of [place] [facility] Body weight 2020-11-27 22:06:00 44 kg Universi ty of [place] [facility] BMI 2020-11-27 22:06:00 14.75 kg/m2 Universi ty of [place] [facility] Body temperature 2020-11-13 16:20:00 36.44 Charlene Univ ersity of [place] [facility] Respiratory rate 2020-11-13 16:20:00 21 /min Univ ersity of [place] [facility] Oxygen saturation in 2020-11-13 15:59:00 96 /min University of Arterial blood by [place] [employer] [facility] Pulse oximetry Branch Systolic blood 2020-11-13 13:00:00 147 mm[Hg] Univer sity of pressure [place] [facility] Diastolic blood 2020-11-13 13:00:00 99 mm[Hg] Unive rsity of pressure [place] [facility] Heart rate 2020-11-13 13:00:00 80 /min Universi ty of [place] [facility] Body weight 2020-11-13 08:30:00 52.617 kg Universi ty of [place] [facility] BMI 2020-11-13 08:30:00 17.64 kg/m2 Universi ty of [place] [facility] Body height 2020-11-10 10:26:00 172.7 cm Universi ty of [place] [facility] Body temperature 2020-11-13 16:20:00 36.44 [facility] Respiratory rate 2020-11-13 16:20:00 21 /min [facility] Oxygen saturation in 2020-11-13 15:59:00 96 /min University Arterial blood by [facility] Pulse oximetry [place] Systolic blood 2020-11-13 13:00:00 147 mm[Hg] Univer sity of pressure [facility] Diastolic blood 2020-11-13 13:00:00 99 mm[Hg] Unive rsity of [facility] Heart rate 2020-11-13 13:00:00 80 /min [facility] Body weight 2020-11-13 08:30:00 52.617 kg [facility] BMI 2020-11-13 08:30:00 17.64 kg/m2 [facility] Body height 2020-11-10 10:26:00 172.7 cm [facility] Systolic blood 2022-03-29 11:01:00 150 mm[Hg] [facility] Diastolic blood 2022-03-29 11:01:00 90 mm[Hg] [facility] Heart rate 2022-03-29 11:01:00 88 /min [facility] Body temperature 2022-03-29 11:01:00 35.61 Charlene [facility] Respiratory rate 2022-03-29 11:01:00 18 /min [facility] Oxygen saturation in 2022-03-29 11:01:00 97 /min [facility] Arterial blood by Medical nter Pulse oximetry Body weight 2022-03-29 06:00:00 49.714 kg [facility] BMI 2022-03-29 06:00:00 18.24 kg/m2 [facility] Body height 2022-03-27 22:32:00 165.1 cm [facility] Procedures Procedure Date / Time Performing Source Performed Clinician COVID-19 (ID NOW RAPID 2022-11-14 Amanda Daniels [facility] TESTING) 19:06:00 Medical Branch PH[facility]PHORUS [facility] 11[facility] Medical Branch MAGNESIUM 2022-11-14 [facility] xas 11:03:00 Medical Branch BASIC METABOLIC PANEL (NA, K, 2022-11-14 [facility] CL, CO2, GLUCOSE, BUN, 11:03:00 Medical B ranch CREATININE, [place]) CBC WITH DIFF 2022-11-14 [facility] [place] 11:03:00 [facility] Branch N-TERMINAL PRO-BNP 2022-11-14 [facility] 11:03:00 Medical Branch POCT GLUCOSE (AUTOMATED) 2022-11-13 Dominique Taylor [facility] 23:15:00 Medical Branch POCT GLUCOSE (AUTOMATED) 2022-11-13 Dominique Taylor [facility] 17:14:00 [facility] ACUTE CARE ARTERIAL BLOOD GAS 2022-11-13 Hugh [facility] 09:35:00 Medical Branch PHOSPHORUS 2022-11-13 [facility] xa 08:58:00 Medical Branch MAGNESIUM 2022-11-13 [facility] xa 08:58:00 [facility] Branch TROPONIN I 2022-11-13 [facility] [facility] xa 08:58:00 [facility] HEPATIC FUNCTION PANEL 2022-11-13 [facility] ([id number]) (ALB,T.PRO,BILI 08:58:00 Medical Branch T,BU/BC,ALT,AST,ALK PHOS) BASIC METABOLIC PANEL (NA, K, 2022-11-13 [facility] CL, CO2, GLUCOSE, BUN, 08:58:00 Medical B ranch CREATININE, CA) CBC WITH DIFF 2022-11-13 [facility] xa 08:58:00 Medical Branch N-TERMINAL PRO-BNP 2022-11-13 [facility] 08:58:00 Medical Branch POCT GLUCOSE (AUTOMATED) 2022-11-13 Dominique Taylor [facility] 05:08:00 [facility] XR CHEST 1 VW 2022-11-12 [facility] 17:30:00 Medical Branch ACUTE CARE ARTERIAL BLOOD GAS 2022-11-12 Amanda Daniels [facility] 16:37:00 Medical Branch MAGNESIUM 2022-11-12 Mikala [facility] xa 13:31:00 Medical Branch THYROID STIMULATING HORMONE 2022-11-12 Amanda Daniels [facility] 13:31:00 Medical Branch BASIC METABOLIC PANEL (NA, K, 2022-11-12 [facility] CL, CO2, GLUCOSE, BUN, 13:31:00 Medical B ran CREATININE, CA) XR CHEST 1 VW 2022-11-12 Dominique Taylor [facility] 11:55:00 Medical Branch CBC WITH DIFF 2022-11-12 [facility] 10:29:00 Medical Branch GLYCOSYLATED HEMOGLOBIN (A1C) 2022-11-12 Dominique Taylor [facility] 10:29:00 [facility] N-TERMINAL PRO-BNP 2022-11-12 [facility] 10:29:00 [facility] ACUTE CARE ARTERIAL BLOOD GAS 2022-11-12 [facility] 09:28:[address] HEAD WO CONTRAST 2022-11-12 Dominique Taylor [facility] [place] 03:57:00 Medical Branch ACUTE CARE ARTERIAL BLOOD GAS 2022-11-12 Dominique Taylor [facility] 00:30:00 Medical Branch XR CHEST 1 VW 2022-11-11 Dominique Taylor [facility] xa 23:02:00 Medical Branch XR KUB 2022-11-11 Dominique Taylor [facility] xa 23:02:00 Medical Branch ACUTE CARE ARTERIAL BLOOD GAS 2022-11-11 Dominique Taylor [facility] 22:29:00 Medical Branch POCT GLUCOSE (AUTOMATED) 2022-11-11 Dominique Taylor [facility] 21:53:00 Medical Branch LOWER EXTREMITY ARTERIAL 2022-11-11 Yandel Colunga [facility] DUPLEX BILATERAL - BY 16:20:[address] [facility] VASCULAR LAB DUPLEX VENOUS LEG RIGHT - BY 2022-11-11 Amanda Daniels [facility] VASCULAR LAB 13:58:16 Medical Branch MRSA / MSSA SCREEN BY PCR, 2022-11-11 Amanda Daniels [facility] 12:46:00 Medical Branch BLOOD CULTURE SCREEN 2022-11-11 Vidhya Fuentes [facility] 11:42:00 Medical Branch XR CHEST 1 VW 2022-11-11 ValentinatnVidhya dent [facility] ex 10:50:00 Medical Branch XR FOOT 3+ VW BILATERAL 2022-11-11 Vidhya Fuentes [facility] 10:50:00 Medical Branch XR HIPS 2 VW RIGHT 2022-11-11 [facility] [place] 10:50:00 Medical Branch MAGNESIUM 2022-11-11 [facility] 10:16:00 Medical Branch FREE T4 2022-11-11 Jeremiah Amanda [facility] xas 10:16:00 Medical Branch COMP. METABOLIC PANEL ([id number]) 2022-11-11 [facility] 10:16:00 Medical Branch CBC WITH DIFF 2022-11-11 [facility] ex 10:16:00 Medical Branch N-TERMINAL PRO-BNP 2022-11-11 ValentinatnVidhya dent [facility] o [facility] [place] [place] 10:16:00 Medical Branch ASSIGNMENT OF BENEFITS 2022-11-11 Doctor Unassigned, [facility] 10:09:55 [facility] CONSENT/REFUSAL FOR DIAGNOSIS 2022-11-11 Doctor Unassigned, [facility] AND TREATMENT 10:09:41 [facility] EXTERNAL PROVIDER RECORDS 2022-10-01 Doctor Unassigned, [facility] 05:01:00 [facility] EXTERNAL PROVIDER RECORDS 2022-09-19 Doctor Unassigned, [facility] 05:01:00 [facility] ASSIGNMENT OF BENEFITS 2022-09-12 Doctor Unassigned, [facility] 13:43:29 [facility] RADIOLOGY DOCUMENTATION 2022-08-12 Doctor Unassigned, [facility] 06:01:00 [facility] 2D ECHO W/ DOPPLER 2022-04-01 Mckeon, Quentin B [facility] (CW/PW/COLOR) 09:58:03 [facility] XR CHEST 1 VIEW PORTABLE / 2022-03-29 Laurie [facility]eta [facility] 07:47:00 [facility] MAGNESIUM 2022-03-29 Hali Rincon Chi [facility] 04:23:00 [facility] COMPREHENSIVE METABOLIC PANEL 2022-03-29 Serge[address]Hali [address] [facility] 04:23:00 [facility] CBC W/PLT COUNT & AUTO 2022-03-[address] [facility] DIFFERENTIAL 04:22:00 [facility] CBC W/PLT COUNT & AUTO 2022-03-29 CortesToribio wiley [facility] DIFFERENTIAL 04:22:00 [facility] XR CHEST 1 VIEW PORTABLE / 2022-03-28 [place] Simran [facility] 07:10:00 [facility] XR CHEST 1 VIEW PORTABLE / 2022-03-27 Juanjose Berrios [facility] 12:11:00 [facility] XR CHEST 1 VIEW PORTABLE / 2022-03-27 [place] Simran [facility] 07:09:00 [facility] XR CHEST 1 VIEW PORTABLE / 2022-03-26 Quentin Mckeon [facility] 18:12:00 [facility] SARS-COV2/RT-PCR ([facility] & REF 2022-03-26 Quentin Mckeon Domenico [facility] LABS) 07:40:00 [facility] XR CHEST 1 VIEW PORTABLE / 2022-03-[address] [facility] 07:36:00 [facility] XR CHEST 1 VIEW PORTABLE / 2022-03-25 Simran Be [facility] 06:49:00 [facility] XR CHEST 1 VIEW PORTABLE / 2022-03-[address] [facility] 08:17:00 [facility] XR CHEST 1 VIEW PORTABLE / 2022-03-[address] [facility] 07:12:00 [facility] XR CHEST 1 VIEW PORTABLE / 2022-03-22 Luanne Behryn [facility] 07:05:00 [facility] XR CHEST 1 VIEW PORTABLE / 2022-03-[address] [facility] 09:23:00 [facility] XR CHEST 1 VIEW PORTABLE / 2022-03-20 Italo Benitez [facility] 12:39:00 [facility] XR CHEST 1 VIEW PORTABLE / 2022-03-[address] [facility] 06:55:00 [facility] BASIC METABOLIC PANEL 2022-03-20 Mckeon, Quentin B [facility] 05:20:00 [facility] XR CHEST 1 VIEW PORTABLE / 2022-03-19 Laurie Mendieta [facility] 13:25:00 [facility] XR CHEST 1 VIEW PORTABLE / 2022-03-[address] [facility] 06:20:00 [facility] MAGNESIUM 2022-03-19 Quentin [address]ke[address] B [facility] 05:45:00 [facility] XR CHEST 1 VIEW PORTABLE / 2022-03-18 Laurie Mendieta [facility] 16:21:00 [facility] XR CHEST 1 VIEW PORTABLE / 2022-03-[address] [facility] 12:20:00 [facility] XR CHEST 1 VIEW PORTABLE / 2022-03-[address] [facility] 09:46:00 [facility] POCT-GLUCOSE METER 2022-03-14 Linda Quentin [address] [facility] 12:50:00 [facility] POCT-GLUCOSE METER 2022-03-14 Quentin Mckeon B [facility] 07:29:00 [facility] CT CHEST WITHOUT IV CONTRAST 2022-03-13 Goyco [address] Yandel [facility] 21:51:00 [facility] POCT-GLUCOSE METER 2022-03-13 Linda Quentin B [facility] 17:14:00 [facility] XR CHEST 1 VIEW PORTABLE / 2022-03-13 Goyco Vera Yandel [facility] 16:58:00 [facility] POCT-GLUCOSE METER 2022-03-13 Quentin Mckeon B [facility] 13:36:00 Medical Center XR CHEST 1 VIEW PORTABLE / 2022-03-13 Mckeon, Quentin Acuña [facility] 12:24:00 [facility] POCT-GLUCOSE METER 2022-03-12 Mckeon, Quentin B [facility] 23:44:00 [facility] POCT-GLUCOSE METER 2022-03-12 Mckeon, Quentin B [facility] 17:40:00 [facility] XR CHEST 1 VIEW PORTABLE / 2022-03-12 Y[address] [facility] 15:08:[address] [facility] [address] CHEST WITHOUT IV CONTRAST 2022-03-12 Mckeon, Quentin B [facility] 13:54:00 [facility] POCT-GLUCOSE METER 2022-03-12 Mckeon, Quentin B [facility] 11:24:00 [facility] XR CHEST 1 VIEW PORTABLE / 2022-03-[address] [facility] 02:58:00 [facility] XR CHEST 1 VIEW PORTABLE / 2022-03-11 Mckeon, Quentin B [facility] 20:13:00 [facility] XR CHEST 1 VIEW PORTABLE / 2022-03-11 Mckeon, Quentin Acuña [facility] 12:06:00 [facility] XR CHEST 1 VIEW PORTABLE / 2022-03-11 Nelson Song [facility] 00:53:00 [facility] POCT-GLUCOSE METER 2022-03-10 Mckeon, Quentin B [facility] 16:09:00 [facility] POCT-GLUCOSE METER 2022-03-10 Mckeon, Quentin B [facility] 10:54:00 [facility] ECG 12-LEAD 2022-03-09 Unknown, Hl7 Doctor [facility] 23:30:24 [facility] ECG 12-LEAD 2022-03-09 Unknown, Hl7 Doctor [facility] 23:30:24 [facility] ECG 12-LEAD 2022-03-09 Unknown, Hl7 Doctor [facility] 23:27:25 [facility] XR CHEST 1 VIEW PORTABLE / 2022-03-09 Hali Rincon Chi [facility] 23:26:00 [facility] US ABDOMEN LIMITED 2022-03-09 Mckeon, Quentin B [facility] 21:25:00 [facility] APTT 2022-03-[address] [facility] 20:11:00 [facility] HIGH SENSITIVITY TROPONIN I 2022-03-[address] [facility] 17:50:00 [facility] APTT 2022-03-[address] [facility] 13:06:00 [facility] HIGH SENSITIVITY TROPONIN I 2022-03-[address] [facility] 12:02:00 [facility] ECG 12-LEAD 2022-03-09 Unknown, Hl7 Doctor [facility] 10:45:00 [facility] ECG 12-LEAD 2022-03-09 Unknown, Hl7 Doctor [facility] 10:43:41 [facility] ECG 12-LEAD 2022-03-09 Unknown, Hl7 Doctor [facility] 10:43:41 [facility] 2D ECHO W/ DOPPLER 2022-03-[address] [facility] (CW/PW/COLOR) 09:06:00 [facility] HEPATITIS PANEL, ACUTE 2022-03-[address] [facility] 07:27:00 [facility] POCT-GLUCOSE METER 2022-03-[address] [facility] 07:25:00 [facility] APTT 2022-03-[address] [facility] 03:21:00 [facility] CBC W/PLT COUNT & AUTO 2022-03-[address] [facility] DIFFERENTIAL 03:21:00 [facility] COMPREHENSIVE METABOLIC PANEL 2022-03-09 [address] [facility] 03:21:00 [facility] HIGH SENSITIVITY TROPONIN I 2022-03-[address] [facility] 03:21:00 [facility] MAGNESIUM 2022-03-[address] [facility] 03:21:00 [facility] B-TYPE NATRIURETIC FACTOR 2022-03-[address] [facility] (BNP) 03:21:00 [facility] CBC W/PLT COUNT & AUTO 2022-03-[address] [facility] DIFFERENTIAL 03:21:00 [facility] XR CHEST 1 VIEW PORTABLE / 2022-03-09 Quentin Mckeon [facility] 02:51:00 [facility] ECG 12-LEAD 2022-03-09 Unknown, Hl7 Doctor [facility] 02:35:02 Medical Center ECG 12-LEAD 2022-03-09 Unknown, Hl7 Doctor [facility] 02:34:18 [facility] ECG 12-LEAD 2022-03-[address] [facility] 02:32:32 [facility] ECG 12-LEAD 2022-03-09 Unknown, Hl7 Doctor [facility] 02:32:32 [facility] PROTHROMBIN TIME/INR 2022-03-[address] [facility] 00:42:00 [facility] APTT 2022-03-[address] [facility] 00:42:00 [facility] CYSTATIN C WITH EGFR 2022-03-[address] [facility] 00:42:00 [facility] VITAMIN B12 2022-03-[address] [facility] 00:42:00 [facility] IRON, TIBC, % SAT. (WITHOUT 2022-03-[address] [facility] FERRITIN) 00:42:00 [facility] FERRITIN 2022-03-[address] [facility] 00:42:00 [facility] BLOOD CULTURE 2022-03-[address] [facility] 00:25:00 [facility] POCT-GLUCOSE METER 2022-03-[address] [facility] 00:23:00 [facility] SARS-COV2/RT-PCR (HS & REF 2022-03-[address] [facility] LABS) 23:40:00 [facility] BLOOD GAS, VENOUS 2022-03-[address] [facility] 23:27:00 [facility] COMPREHENSIVE METABOLIC PANEL 2022-03-[address] [facility] 23:26:00 [facility] CBC W/PLT COUNT & AUTO 2022-03-[address] [facility] DIFFERENTIAL 23:26:00 [facility] HIGH SENSITIVITY TROPONIN I 2022-03-[address] [facility] 23:26:00 [facility] MAGNESIUM 2022-03-[address] [facility] 23:26:00 [facility] LACTIC ACID, VENOUS 2022-03-[address] [facility] 23:26:00 [facility] LIPID PANEL 2022-03-[address] [facility] 23:26:00 [facility] CBC W/PLT COUNT & AUTO 2022-03-[address] [facility] DIFFERENTIAL 23:26:00 [facility] XR CHEST 1 VIEW PORTABLE / 2022-03-08 Peyman [facility] 22:59:00 [facility] VASCULAR DIAGRAM -SCAN 2022-03-08 Provider, Default [facility] 00:00:00 Scanning [facility] PERMANENT LAB REPORT - SCAN 2022-03-08 Provider, Default [facility] 00:00:00 Scanning [facility] CARDIAC CATH REPORT - SCAN 2022-03-08 Provider, Default [facility] 00:00:00 Scanning [facility] ALBUMIN 2020-12-04 Gerber [facility] xas 10:05:00 Medical Branch MAGNESIUM 2020-12-04 Gerber [facility] xas 10:05:00 Medical Branch BASIC METABOLIC PANEL (NA, K, 2020-12-04 Nelson Mayes [facility] [place] CL, CO2, GLUCOSE, BUN, 10:05:00 Medical B ranch CREATININE, CA) CBC WITH DIFF 2020-12-04 Gerber [facility] xas 10:05:00 Medical Branch MAGNESIUM 2020-12-03 [facility] 11:08:00 [facility] Branch BASIC METABOLIC PANEL (NA, K, 2020-12-03 Nelson Mayes [facility] [place] CL, CO2, GLUCOSE, BUN, 11:08:00 Medical B ranch CREATININE, CA) CBC WITH DIFF 2020-12-03 Gerber [facility] xas 11:08:00 Medical Branch PHOSPHORUS 2020-12-01 [facility] 09:38:00 Medical Branch MAGNESIUM 2020-12-01 [facility] xas 09:38:00 Medical Branch BASIC METABOLIC PANEL (NA, K, 2020-12-01 [facility] [place] CL, CO2, GLUCOSE, BUN, 09:38:00 Medical B ranch CREATININE, CA) CBC WITH DIFF 2020-12-01 Blake [facility] xas 09:38:00 Medical Branch SPUTUM CULTURE 2020-11-29 Irma Webb [facility] xas 00:25:00 Medical Branch AC PANEL 21 + LACTIC ACID 2020-11-28 [facility] 20:07:00 Medical Branch URINALYSIS 2020-11-28 Amelia Ziegler [facility] xas 09:43:00 Medical Branch PNEUMOCOCCAL ANTIGEN 2020-11-28 Viet [facility] 09:43:00 Medical Branch MAGNESIUM 2020-11-28 Jon [facility] Te xas 09:25:00 Medical Branch HEPATIC FUNCTION PANEL 2020-11-28 [facility] ([id number]) (ALB,T.PRO,BILI 09:25:00 Medical Branch T,BU/BC,ALT,AST,ALK PHOS) BASIC METABOLIC PANEL (NA, K, 2020-11-28 Irma Webb [facility] CL, CO2, GLUCOSE, BUN, 09:25:00 Medical B ranch CREATININE, CA) CBC WITH DIFF 2020-11-28 [facility] 09:25:00 Medical Branch AC PANEL 21 + LACTIC ACID 2020-11-28 Viet Adelina [facility] 09:25:00 Medical Branch XR RIBS 4+ VW BILATERAL 2020-11-28 Irma Webb [facility] 05:40:20 Medical Branch EXTERNAL PROVIDER RECORDS 2020-11-28 Doctor Unassigned, [facility] 05:01:00 [facility] AC PANEL 20 + LACTIC ACID 2020-11-28 Yemi Ford [facility] 03:42:00 Medical Branch ACUTE CARE VENOUS BLOOD GAS 2020-11-28 Irma Webb [facility] 00:44:00 Medical Branch PROCALCITONIN 2020-11-27 [facility] 23:38:00 Medical Branch TROPONIN I 2020-11-27 [facility] 23:00:00 Medical Branch ACUTE CARE ARTERIAL BLOOD GAS 2020-11-27 Irma Webb [facility] 23:00:00 Medical Branch MRSA / MSSA SCREEN BY PCR, 2020-11-27 Irma Webb [facility] NARES 23:00:00 Medical Branch HB ECG ROUTINE & RHYTHM STRIP 2020-11-27 Irma Webb [facility] 22:54:06 Medical Branch BLOOD CULTURE SCREEN 2020-11-27 Amelia Ziegler [facility] 16:29:00 [facility] [place] XR CHEST 1 VW 2020-11-27 Amelia Ziegler [facility] xa 16:23:02 [facility] COVID-19 (ID NOW RAPID 2020-11-27 Amelia Ziegler [facility] TESTING) 15:48:00 Medical [place] LAB ONLY COVID INTERPRETATION 2020-11-27 Amelia Ziegler [facility] 15:48:00 Medical Branch BLOOD CULTURE SCREEN 2020-11-27 Amelia Ziegler [facility] 15:44:00 Medical Branch GAMMA GLUTAMYLTRANSFERASE 2020-11-27 Irma Webb [facility] 15:44:00 [facility] TROPONIN I 2020-11-27 Amelia Ziegler [facility] xa 15:44:00 [facility] COMP. METABOLIC PANEL ([id number]) 2020-11-27 Amelia Ziegler [facility] 15:44:00 [facility] CBC WITH DIFF 2020-11-27 Amelia Ziegler [facility] xa 15:44:00 [facility] N-TERMINAL PRO-BNP 2020-11-27 Irma Webb [facility] 15:44:00 [facility] AC PANEL 21 + LACTIC ACID 2020-11-27 Amelia Ziegler [facility] 15:44:00 Medical Branch CONSENT/REFUSAL FOR DIAGNOSIS 2020-11-27 Doctor Unassigned, [facility] AND TREATMENT 15:18:15 [facility] AGREEMENTS AUTHORIZATIONS AND 2020-11-27 Doctor Marianassigned, [facility] IRREVOCABLE ASSIGNMENTS (FORM 05:01:[address] [facility] Branch 2000) C-REACTIVE PROTEIN 2020-11-13 Luz Maria Jessica [facility] 00:29:00 Medical Branch N-TERMINAL PRO-BNP 2020-11-13 Abdullah, [facility] 00:29:00 [facility] PROCALCITONIN 2020-11-13 Luz Maria Jessica [facility] xa 00:29:00 Medical Branch TRANSTHORACIC ECHO (TTE) 2020-11-12 Jeremiah [facility] COMPLETE 17:46:08 [facility] [place] LOWER EXTREMITY ARTERIAL 2020-11-12 [facility] DUPLEX BILATERAL - BY 16:02:28 Medical Br anch VASCULAR LAB BASIC METABOLIC PANEL (NA, K, 2020-11-12 Clarence Bach [facility] CL, CO2, GLUCOSE, BUN, 13:56:00 [facility] ran CREATININE, CA) CBC WITH DIFF 2020-11-12 [facility] 13:55:00 [facility] BLOOD CULTURE SCREEN 2020-11-12 [facility] 11:17:00 [facility] Branch BLOOD CULTURE SCREEN 2020-11-12 [facility] 11:12[facility]00 [facility] THYROID STIMULATING HORMONE 2020-11-11 [facility] 22:51:00 Medical Branch VANCOMYCIN TROUGH 2020-11-11 dacia [facility] 22:51:00 [facility] CT THORAX W CONTRAST 2020-11-10 [facility] 18[facility]02:33 [facility] URINALYSIS 2020-11-10 Vidhya Fuentes [facility] ex 09:14:00 Medical Branch XR CHEST 1 VW 2020-11-10 Vidhya Fuentes [facility] exas 08:57:43 Medical Branch BLOOD CULTURE SCREEN 2020-11-10 Vidhya Fuentes [facility] 08:45:00 Medical Branch BLOOD CULTURE WORKUP 2020-11-10 Vidhya Fuentes [facility] 08:45:00 [facility] GRAM NEGATIVE BLOOD PATHOGENS 2020-11-10 Vidhya Fuentes [facility] DNA PROBE-AEROBIC 08:45:00 Medical Branch BLOOD CULTURE SCREEN 2020-11-10 Vidhya Fuentes [facility] 08:43:00 Medical Branch LACTIC ACID WHOLE BLOOD 2020-11-10 Yarima, Wakili [facility] 08:43:00 Medical Branch BLOOD CULTURE WORKUP 2020-11-[address] [facility] 08:43:00 Medical Branch FREE T4 2020-11-10 [facility] 08:42:00 Medical Branch COMP. METABOLIC PANEL ([id number]) 2020-11-10 KassyilVidhya [facility] 08:42:00 Medical Branch CBC WITH DIFF 2020-11-10 Vidhya Fuentes [facility] exas 08:42:00 Medical Branch FREE T3 2020-11-10 [facility] 08:42:00 Medical Branch COVID-19 (ID NOW RAPID 2020-11-10 Vidhya Fuentes [facility] TESTING) 08:42:00 Medical Branch LAB ONLY COVID INTERPRETATION 2020-11-10 Kassyil [facility] 08:42:00 Medical Branch HB ECG ROUTINE & RHYTHM STRIP 2020-11-10 [facility] Hikalpesh [facility] 08:40:08 Medical Branch NOTICE OF PRIVACY PRACTICES 2020-11-10 [facility] 08:36:16 [facility] [place] CONSENT/REFUSAL FOR DIAGNOSIS 2020-11-10 Doctor Unassigned, [facility] AND TREATMENT 08:35:48 [facility] Plan of Care Planned Activity Planned Date Details Comments Source Future Scheduled 2023-02-06 Influenza Vaccine (#1) [facility] 00:00:00 [code = Influenza Medical Ce nter Vaccine (#1)] Future Scheduled 2022-06-[address] [...] colon Medical Ce nter (procedure) [code = 650853218] Future Scheduled 1950 DXA SCAN [code = DXA [facility] Test 00:00:00 SCAN] Medical Center Future Scheduled 1949 Screening for malignant [facility] Test 00:00:00 neoplasm of colon Medical Ce nter (procedure) [code = 606312425] Future Scheduled 1949 Screening for malignant [facility] Test 00:00:00 neoplasm of colon Medical Ce nter (procedure) [code = 521725455] Future Scheduled 1950 Sigmoidoscopy [code = CH I [facility] S[facility]] [facility] Cent[facility] Future Scheduled 1950 Screening for malignant [facility] 00:00:00 neoplasm of breast Medical C enter (procedure) [code = 637109834] Future Scheduled 1949 CT Colonography (combo) [facility] 00:[facility]00 [code = [facility] ([facility] Future Scheduled 1949 Screening for malignant [facility] 00:00:00 neoplasm of colon Medical Ce nter (procedure) [code = 292329515] Future Scheduled 1949 Screening for malignant [facility] 00:00:00 neoplasm of breast Medical C enter (procedure) [code = 757160628] Future Scheduled 1949 CT Colonography (combo) [facility] 00:00:00 [code = CT [facility] ([facility] Future Scheduled 1949 Screening for malignant [facility] 00:00:00 neoplasm of colon Medical Ce nter (procedure) [code = 890839345] Future Scheduled 1949 Screening for malignant [facility] 00:00:00 neoplasm of colon Medical Ce nter (procedure) [code = 223601727] Future Scheduled 1950 DXA SCAN [code = DXA [facility] 00:00:00 SCAN] [facility] Future Scheduled 1949 Screening for malignant [facility] 00:00:00 neoplasm of colon Medical Ce nter (procedure) [code = 625274890] Future Scheduled 1949 Screening for malignant [facility] 00:00:00 neoplasm of colon Medical Ce nter (procedure) [code = 166509936] Future Scheduled 1950 Sigmoidoscopy [code = [facility] Medical Cente r Future Scheduled 1949 Screening for malignant [facility] 00:00:00 neoplasm of breast Medical C enter (procedure) [code = 168594997] Future Scheduled 1949 CT Colonography (combo) [facility] 00:00:00 [code = CT [facility] (combo)] Future Scheduled 1949 Screening for malignant [facility] 00:00:00 neoplasm of colon Medical Ce nter (procedure) [code = 535845943] Future Scheduled 1949 Screening for malignant [facility] 00:00:00 neoplasm of colon Medical Ce nter (procedure) [code = 113061668] Future Scheduled 1949 DXA SCAN [code = DXA [facility] 00:00:00 SCAN] [facility] Future Scheduled 1949 Screening for malignant [facility] 00:00:00 neoplasm of colon Medical Ce nter (procedure) [code = 974401570] Future Scheduled 1949 Screening for malignant [facility] 00:00:00 neoplasm of colon Medical Ce nter (procedure) [code = 849073398] Future Scheduled 1950 Sigmoidoscopy [facility]code = [facility]] [facility] Future Scheduled 1949 Screening for malignant [facility] 00:00:00 neoplasm of breast Medical C enter (procedure) [code = 127282726] Future Scheduled 1949 CT Colonography (combo) [facility] 00:00:00 [code = CT [facility] ([facility] Future Scheduled 1949 Screening for malignant [facility] 00:00:00 neoplasm of colon Medical Ce nter (procedure) [code = 785463517] Future Scheduled 1949 Screening for malignant [facility] 00:00:00 neoplasm of colon Medical Ce nter (procedure) [code = 005185439] Future Scheduled 1949 DXA SCAN [code = DXA [facility] 00:00:00 SCAN] [facility] Future Scheduled 1949 Screening for malignant [facility] 00:00:00 neoplasm of colon Medical Ce nter (procedure) [code = 855784289] Future Scheduled 1949 Screening for malignant [facility] 00:00:00 neoplasm of colon Medical Ce nter (procedure) [code = 674698170] Future Scheduled 1950 Sigmoidoscopy [code = [facility] S[facility]oscopy] Medical Cente r Encounters Start End Encounter Admission Attending Care Care Encounter Source Date/Time Date/Time Type Type Clinicians Facility Department ID 2020-12-14 Inpatient ER ADHI, [facility] [id number] [facility] 20:10:00 CHAO 2023-01-09 2023-01-09 Outpatient [facility] 08:39:28 08:39:28 [id number] F Gwinn 2023-01-07 2023-01-07 Outpatient [facility] 11:36:22 11:36:22 [id number] F Gwinn 2022-12-31 2022-12-31 Outpatient [facility] 14:25:15 14:25:15 [id number] F Gwinn 2022-11-17 2022-11-17 Transition RADHA Paula 1.2.840.114 [id number] Univers 00:00:00 00:00:00 of Care Lele INGRAM 350.1.13.10 ity of [place] [id number] [facility] [address] 2022-11-11 2022-11-14 Inpatient X JEREMIAH [facility] YEHUDA [id number] Univers 04:50:00 16:36:00 AMANDA knight of [facility] 2022-11-11 2022-11-14 [facility] Vidhya Fuentes [facility] 1.2.840. 114 [id number] Univers 04:50:00 16:36:00 Encounter Amanda Daniels 350.1.13.10 ity of [place] 4.2.7.2.686 [facility] [id number] [facility] [address] 2022-10-17 2022-10-17 Outpatient [facility] [id number] 14:30:58 14:30:58 [id number] F Gwinn 2022-10-10 2022-10-10 Office Darci [facility] 1.2.840.114 [id number] Univers 11:15:00 11:30:00 Visit [facility] 350.1.13.10 it y of [place] 4.2.7.2.686 Juni as DANIELLE?BLEA [id number] Ct charmainegabriela [address] MEDICAL OFFICE [facility] 2022-10-10 2022-10-10 Outpatient R DARCI [facility] [id number] Univers 11:15:00 11:20:57 LACY itmica [facility] 2022-10-01 2022-10-01 Orders Doctor CLAIRE 1.2.840.114 [id number] Univers 00:00:00 00:00:00 Only Unassigned, MAGDA 350.1.13.10 ity of [facility] 4.2.7.2.686 Juni as [phone] [address] 2022-09-19 2022-09-19 Orders Doctor CLAIRE 1.2.840.114 [id number] Univers 00:00:00 00:00:00 Only Unassigned, MAGDA 350.1.13.10 ity of [facility] 4.2.7.2.686 Juni as [id number] [address] 2022-09-12 2022-09-12 [facility] [id number] Univers 08:45:00 09:26:37 MARIA GUADALUPE mica [facility] 2022-09-12 2022-09-12 [facility] [id number] [facility] 08:45:00 09:26:37 Visit [facility] 350.1.13.10 it y of [facility] 4.2.7.2.686 Juni as DANIELLE?BLEA [id number] Ct xiomy [address] 2022-09-12 2022-09-12 Orders Doctor RANGEL 1.2.840.114 [id number] Univers 00:00:00 00:00:00 Only Unassigned, MAGDA 350.1.13.10 ity of [facility] 4.2.7.2.686 Juni as [id number] [address] 2022-08-12 2022-08-12 Telephone [facility] 1.2.840.114 [id number] Univers 00:00:00 00:00:00 Maria Guadalupe L Kuponjo 350.1.13.10 it y of [place] 4.2.7.2.686 Juni as DANIELLE?BLEA [id number] [facility] [address] MEDICAL OFFICE BUILDING 2022-08-12 2022-08-12 Orders Doctor CLAIRE 1.2.840.114 [id number] Univers 00:00:00 00:00:00 Only Unassigned, MAGDA 350.1.13.10 ity of [place] [facility] 4.2.7.2.686 Juni as [id number] [address] 2022-08-11 2022-08-11 [facility] 1.2.840.114 [id number] Univers 16:16:00 23:59:00 Encounter Maria Guadalupe Blood [facility] 350.1.13.10 [place] [id number] [address] 2022-08-11 2022-08-11 [facility] [id number] Univers 00:00:00 23:59:00 [facility] 2022-08-11 2022-08-11 Telephone [facility] 1.2.840.114 [id number] Univers 00:00:00 00:00:00 [facility] 350.1.13.10 it y of [place] 4.2.7.2.686 Juni as DANIELLE?BLEA [id number] [address] OFFICE [facility] 2022-08-10 2022-08-10 [facility] 1.2.840.114 [id number] Univers 14:02:00 23:59:00 Encounter Maria Guadalupe GLEZKE'S 350.1.13.10 ity [place] [id number] [address] 2022-08-10 2022-08-10 Outpatient R [facility] OUT [id number] Univers 00:00:00 23:59:00 [facility] 2022-03-08 2022-03-29 [facility] Quentin Abrams [facility] [id number] [facility] 22:22:00 13:40:00 Encounter Martha Conway Kimberly [facility] 2022-03-08 2022-03-29 Inpatient ER ZORAIDA, [facility] Medical ICU [id number] [facility] 22:22:00 13:40:00 MARTHA 2022-03-27 2022-03-[address] [facility] [id number] [facility] 00:[facility]:00 Only B [facility] 2022-03-09 2022-03-[address] [facility] [id number] 00:00:00 00:00:00 Only [facility] 2020-12-05 2020-12-05 Transition Radha Paula 1.2.840.114 [id number] 00:00:00 00:00:00 of Care Lele Liz Ingram 350.1.13.10 [place] 4.2.7.2.686 [id number] 403 2020-12-05 2020-12-05 Transition Radha Paula 1.2.840.114 [id number] [facility] 00:00:00 00:00:00 of Care Lele Briggsy 350.1.13.10 ity of [place] 4.2.7.2.686 [place] [id number] [facility] [address] 2020-11-27 2020-12-[address] [facility] Alison Roach 1.2.840.1 14 [id number] 10:20:00 19:30:00 Encounter Kashif Strong 350.1.13.10 [facility] 4.2.7.2 .686 [id number] [facility] 2020-11-27 2020-12-[address] [facility] Alison Roach 1.2.840.1 14 [id number] [facility] 10:20:00 19:30:00 Encounter Kashif Strong 350.1.13.10 ity of [facility] 4.2.7.2 .686 [place] [id number] [facility] [address] 2020-11-27 2020-11-27 Emergency X [facility] E[facility] [id number] Univers 10:20:00 10:20:00 ity of [facility] 2020-11-27 2020-11-27 Orders Doctor CLAIRE 1.2.840.114 [id number] 00:00:00 00:00:00 Only Unassigned, MAGDA 350.1.13.10 [facility] 4.2.7.2.686 [id number] 009 2020-11-27 2020-11-27 Orders Doctor CLAIRE 1.2.840.114 [id number] Univers 00:00:00 00:00:00 Only Unassigned, MAGDA 350.1.13.10 ity of [facility] 4.2.7.2.686 Juni as [id number] [place] [address] [address] 2020-11-14 2020-11-14 Transition Radha Paula 1.2.840.114 [id number] 00:00:00 00:00:00 of Care Lele Ingram 350.1.13.10 [place] 4.2.7.2.686 [id number] 403 2020-11-14 2020-11-14 Transition Radha Paula 1.2.840.114 [id number] Univers 00:00:00 00:00:00 of Care Lele Hill Ingram 350.1.13.10 ity of [place] [id number] [place] [address] [address] 2020-11-10 2020-11-13 [facility] 1.2.840. 114 [id number] 03:31:00 16:48:00 Encounter Clarence Bach 350.1.13.10 Amanda Daniels [address] [place] [address] [id number] 080 2020-11-10 2020-11-13 [facility] 1.2.840. 114 [id number] Univers 03:31:00 16:48:00 Encounter Clarence Bach 350.1.13.10 ity of Amanda Daniels 4.2.7.2.686 [facility] [id number] [place] [address] 2020-11-10 2020-11-10 Emergency X TRINIDAD [facility] ERT [id number] Univers 03:31:00 03:31:00 VIDHYA knight [facility] Results Test Description Test Time Test Comments Results Result Comments Source POCT GLUCOSE (AUTOMATED) 2022-11-13 23:17:17 Test Item Value Reference Range Interpretation Comme nts POCT GLU (test code = 4739335026) 131 mg/dL 70-110 H Lab Interpretation (test code = 66846-9) Abnormal [facility]2022-11-13 17:14:43 Test Item Value Reference Range Interpretation Comments POCT GLU (test code = 6303842072) 112 mg/dL 70-110 H Lab Interpretation (test code = Abnormal 41100-5) [facility] GLUCOSE (AUTOMATED)2022-11-13 05:09:46 Test Item Value Reference Range Interpretation Comments POCT GLU (test code = 6697550242) 130 mg/dL 70-110 H Lab Interpretation (test code = Abnormal 52428-6) [facility]YROID STIMULATING [id number] 23:34:29 Test Item Value Reference Range Interpretation Comments TSH (test code = 2.87 See_Comment Biotin has been 1722061347) reported to cau se a negative bias, interpret resul ts relative to pat reynold's use of biotin. [Automated mess age] The system Pixia generated this result transmitted ref erence range: 0.45 - 4 .70 mIU/L. The refe rence range was not u sed to interpret this result as normal/abnor mal. Lab Interpretation (test Normal code = 60623-0) [facility] [id number] 23:19:04 Test Item Value Reference Range Interpretation Comments FREE T4 (test code = 1.07 See_Comment [Autom ated message] 7307625328) The system Pixia generated this result transmitted ref erence range: 0.78 - 2 .20 ng/dL:. The ref erence range was not u sed to interpret this result as normal/abnor mal. Lab Interpretation (test Normal code = 23709-7) [facility]2023-06-07 19:19:07 Test Item Value Reference Range Interpretation Comments MAGNESIUM (test code = 8338425618) 2.6 mg/dL 1.7-2.4 H Lab Interpretation (test code = Abnormal 54430-1) [facility] METABOLIC PANEL (NA, K, CL, CO2, GLUCOSE, BUN, CREATININE, CA)2022-11-12 19:19:02 Test Item Value Reference Range Interpretation Comments NA (test code = 138 mmol/L 135-145 2075454119) K (test code = 4.5 mmol/L 3.5-5.0 4550570756) CL (test code = 101 mmol/L 98-108 7772107961) CO2 TOTAL (test code = 31 mmol/L 23-31 1718984815) AGAP (test code = 6 2-16 1874943816) BUN (test code = 57 mg/dL 7-23 H 4554474396) GLUCOSE (test code = 113 mg/dL 70-110 H 3903759611) CREATININE (test code = 0.90 mg/dL 0.50-1.04 8416551047) CALCIUM (test code = 8.5 mg/dL 8.6-10.6 L 0191662708) eGFR (test code = 61.4 mL/min/1.73m2 0985903488) CHRISTINE (test code = CHRISTINE) Association of [...] tests). Lab Interpretation Abnormal (test code = 43295-1) [facility] Arterial Blood Gas.2022-11-11 22:32:36 Test Item Value Reference Range Interpretation Comments PH (test code = 2) 7.19 7.35-7.45 LL PCO2 (test code = 85 See_Comment H [Automate d message] 6756488254) The system Pixia generated this result transmitted ref erence range: 35 - 45 mmHg. The reference r crispin was not used to interpret this result as normal/abnor mal. PO2 (test code = 454 See_Comment H [Automated message] 0184956708) The system Pixia generated this result transmitted ref erence range: 80 - 100 mmHg. The reference r crispin was not used to interpret this result as normal/abnor mal. HCO3 (test code = 32 See_Comment H [Automate d message] 7584368792) The system Pixia generated this result transmitted ref erence range: 22 - 26 mEq/L. The reference r crispin was not used to interpret this result as normal/abnor mal. BE (test code = 0.5 See_Comment [Automated message] 2941520305) The system Pixia generated this result transmitted ref erence range: -3.0 - 3 .0 mEq/L. The refe rence range was not u sed to interpret this result as normal/abnor mal. Lab Interpretation (test Abnormal code = 00945-9) [facility])2022-11-11 22:04:37 Test Item Value Reference Range Interpretation Comments POCT GLU (test code = 3455534748) 122 mg/dL 70-110 H Lab Interpretation (test code = Abnormal 88684-3) [facility] WITH [id number] 11:04:52 Test Item Value Reference Range Interpretation Comments WBC (test code = 16.98 See_Comment H [Automated 6690-2) message] The system which generated this result transmit cristhian reference range : 4.30 - 11.10 10*3/?L. The reference range was not used to interpret this result as normal/abnormal . RBC (test code = 4.23 See_Comment [Automated 789-8) message] The system which [...] RDW-SD (test code = 47.5 fL 39.0-49.9 64608-4) RDW-CV (test code = 14.3 % 12.0-15.5 788-0) PLT (test code = 273 See_Comment [Automated 777-3) message] The system which generated this result transmit cristhian reference range : 166 - 358 10*3/ ?L. The reference range was not u sed to interpret th is result as normal/abnormal . MPV (test code = 9.6 fL 9.5-12.9 40388-6) NRBC/100 WBC (test 0.0 See_Comment [Automat ed code = 8477486537) message] The system which generated this result transmit cristhian reference range : 0.0 - 10.0 /100 WBCs. The reference range was not used to interpret this result as normal/abnormal . NRBC x10^3 (test code See_Comment [Auto mated = 3013516355) message] The system which generated this result transmit cristhian reference range : 10*3/?L. The reference range was not used to interpret this result as normal/abnormal . GRAN MAT (NEUT) % 86.9 % (test code = 770-8) IMM GRAN % (test code 1.50 % = 3518721558) LYMPH % (test code = 2.9 % 736-9) MONO % (test code = 8.0 % 5905-5) EOS % (test code = 0.3 % 713-8) BASO % (test code = 0.4 % 706-2) GRAN MAT x10^3(ANC) 14.76 10*3/uL 1.88-7.09 H (test code = 7210305716) IMM GRAN x10^3 (test 0.26 10*3/uL 0.00-0.06 H code = 5982070866) LYMPH x10^3 (test code 0.49 10*3/uL 1.32-3.29 L = 731-0) MONO x10^3 (test code 1.36 10*3/uL 0.33-0.92 H = 742-7) EOS x10^3 (test code = 0.05 10*3/uL 0.03-0.39 711-2) BASO x10^3 (test code 0.06 10*3/uL 0.01-0.07 = 704-7) Lab Interpretation Abnormal (test code = 04913-1) [facility]MINAL [id number] 10:57:32 Test Item Value Reference Range Interpretation Comments NT-proBNP (test code = 380 pg/mL <=125 H 3676373842) CHRISTINE (test code = CHRISTINE) Biotin has been reported to cause a negative bias, interpret results relative to patient's use of biotin. Lab Interpretation (test Abnormal code = 25775-5) [facility]2023-06-06 10:49:31 Test Item Value Reference Range Interpretation Comments MAGNESIUM (test code = 8792607845) 2.7 mg/dL 1.7-2.4 H Lab Interpretation (test code = Abnormal 72744-6) [facility]COMP. METABOLIC PANEL (01688)2022-11-11 10:49:11 Test Item Value Reference Range Interpretation Comments NA (test code = 137 mmol/L 135-145 3891657922) K (test code = 4.7 mmol/L 3.5-5.0 5967179871) CL (test code = 97 mmol/L 98-108 L 8925197976) CO2 TOTAL (test code = 32 mmol/L 23-31 H 1003255436) AGAP (test code = 8 2-16 1403424300) BUN (test code = 53 mg/dL 7-23 H 4669201447) GLUCOSE (test code = 130 mg/dL 70-110 H 4147976279) CREATININE (test code = 1.03 mg/dL 0.50-1.04 2172011225) TOTAL BILI (test code = 0.5 mg/dL 0.1-1.0 1352945800) CALCIUM (test code = 9.1 mg/dL 8.6-10.6 0893861738) T PROTEIN (test code = 6.7 g/dL 6.3-8.2 8809555170) ALBUMIN (test code = 3.5 g/dL 3.5-5.0 1751099965) ALK PHOS (test code = 106 U/L 34-122 9392402948) ALTv (test code = 32 U/L 5-35 1742-6) AST(SGOT) (test code = 49 U/L 13-40 H 0498144737) eGFR (test code = 52.5 mL/min/1.73m2 5801624123) CHRISTINE (test code = CHRISTINE) Association of [...] tests). Lab Interpretation Abnormal (test code = 27127-7) [facility]2022-11-22 12:31:02 Test Item Value Reference Range Interpretation Comments MAGNESIUM (BEAKER) (test code = 2.0 mg/dL 1.6-2.6 627) BASIC METABOLIC [id number] 08:50:55 Test Item Value Reference Range Interpretation [...] appl icable for dialysis patien ts BLOOD [id number] 11:01:12 Test Item Value Reference Range Interpretation Comments CULTURE (BEAKER) (test No growth in 5 days code = 1095) SARS-COV2/RT-PCR ([facility])2022-03-30 11:31:45 Test Item Value Reference Range Interpretation Comments SARS-COV2/RT-PCR (test Negative Not Detected, Negative, code = 3790155) See external report for linked test SARS-COV-2 PERFORMING LAB [facility] JESSICA (test code = 3015282) Negative result for this test determines that [...] of the Act.Fact Sheet for Healthcare Prov iders:https://www.amaysim/sites/default/files/product/documents/Fact_Sheet_HC _Clcditagr_Iwjr_DTEL-GoX-1.pdfFact Sheet for Healthcare Patients:https://www.Webflakes.[employer]/sites/default/files/product/docume nts/Tfkl_Jvkyp_Zicbsfti_Brzo_WBYM-ZjM-9.pdfPerforming Laboratory:[facility].[place], [place] [address]UWT, CHEST, 1 VIEW, NON [id number] 13:36:00 [facility] 1950 Sex: [...] in the lungs bilaterally. Signed: Teddy Leblanc MDReport Verified Date/Time: 03/29/2022 13:36:13 Reading Location: [address] Transitional Reading Room Electronically signedby: TEDDY LEBLANC MD on 03/29/2022 01:36 PM COMPREHENSIVE METABOLIC [id number] 05:29:56 Test Item Value Reference Range Interpretation [...] not appl icable for dialysis patien ts Tinning Machine Set Up Operator ID - [id number] 05:29:56 Test Item Value Reference Range Interpretation Comments MAGNESIUM (BEAKER) (test code = 2.1 mg/dL 1.6-2.6 627) Tinning Machine Set Up Operator ID - ADMINCBC W/PLT COUNT & AUTO [id number] 04:47:02 Test Item Value Reference Range Interpretation [...] PERCENT (BEAKER) (test code = 2801) SARS-CoV2/RT-PCR ([facility])2022-03-28 17:05:17 Test Item Value Reference Range Interpretation Comments SARS-COV2/RT-PCR Negative Negative The SARS-Co V-2 (test code = target nucleic acids 65597-7) are not detecte d in this specimen. [...] from individuals suspected of COVID-19 by the [facility]. SARS-COV-2 [facility] dical (test code = Ccugdn7615 [facility] [address]-7) [place] [address] ph: [phone] CHRISTINE (test code = This test has [...] revoked sooner. Fact Sheet for Healthcare Providers: https://www.[employer]/Documents/Xper t%20Xpress%20SARS%2 0CoV-2/Fact%20Sheet s/3023802%20SARS-C OV-2%20HEALTHCARE%2 0PROVIDERS%20FACT%2 0SHEET.pdf Fact Sheet for Healthcare Patients: https://www.[employer]/Documents/Xper t%20Xpress%20SARS%2 0CoV-2/Fact%20Sheet s/3023801%20SARS-C OV-2%20PATIENT%20FA CT%20SHEET.pdf [facility])2022-03-28 17:05:17 Test Item Value Reference Range Interpretation Comments SARS-COV2/RT-PCR Negative Negative The SARS-Co V-2 (test code = target nucleic acids 46001-6) are not detecte d in this specimen. [...] from individuals suspected of COVID-19 by the [facility] ide. SARS-COV-2 [facility] (test code = Lwchzs7121 [facility] [address]-1) [place] [address] ph: [phone] CHRISTINE (test code = This test has [...] revoked sooner. Fact Sheet for Healthcare Providers: https://www.[employer]/Documents/Xper t%20Xpress%20SARS%2 0CoV-2/Fact%20Sheet s/3023802%20SARS-C OV-2%20HEALTHCARE%2 0PROVIDERS%20FACT%2 0SHEET.pdf Fact Sheet for Healthcare Patients: https://www.[employer]/Documents/Xper t%20Xpress%20SARS%2 0CoV-2/Fact%20Sheet s/3023801%20SARS-C OV-2%20PATIENT%20FA CT%20SHEET.pdf [facility])2022-03-28 17:05:17 Test Item Value Reference Range Interpretation Comments SARS-COV2/RT-PCR Negative Negative The SARS-Co V-2 target (test code = nucleic acids a re not 4664578) detected in thi s specimen. Negat hermila [...] individuals dave pected of COVID-19 by the [facility] ide. SARS-COV-2 [facility] ([facility] code = 8541087) [place], [place] [address]vs: [phone] [phone] This test has been authorized by FDA [...] revoked sooner. Fact Sheet for Healthcare Providers: https://www.[employer]/Documents/Xpert%20Xpress%20SARS%20CoV-2/Fact%20Sheets/492-9952%66EAOO-ORT-2%20 HEALTHCARE%20PROVIDERS%20FACT%20SHEET.pdf Fact Sheet for Healthcare Patients: https://www.CinemaKi/Documents/Xpert%20Xp ress%20SARS%20CoV-2/Fact%20Sheets/302-3801%94GRIM-KXB-9%20PATIENT%20FACT%20SHEET .pdfRAD, CHEST, 1 VIEW, NON [id number] 07:46:00daily am portable [facility] : 1950 Sex: [...] Smith Verified Date/Time: 03/28/2022 07:46:54 Reading Location: [address] Reading Room BLOOD [id number] 02:59:28 Test Item Value Reference Range Interpretation Comments CULTURE (BEAKER) (test No growth in 5 days code = 1095) The specimen volume collected for this blood culture was below the optimum (10 mL per bottle or 20 mL total). Use of lower volumes may adversely affect recovery and/or detection times of some organisms.POC-Glucose [id number] 12:54:47 Test Item Value Reference Range Interpretation Comments POC-Glucose Meter (test 120 mg/dL 70-110 H : TE STED AT [facility] code = 1538) [address] [facility], [facility] 30: Tinning Machine Set Up Operator/Techni ethel ID = [id number] for Luz Maria Pierson Lab Interpretation (test Abnormal code = 44631-3) [facility] [id number] 12:54:47 Test Item Value Reference Range Interpretation Comments POC-Glucose Meter (test 120 mg/dL 70-110 H : TE STED AT [facility] code = 1538) [address] [place], [address] 30: Tinning Machine Set Up Operator/Techni ethel ID = [id number] for Luz Maria Pierson Lab Interpretation (test Abnormal code = 95256-6) [facility]-GLUCOSE [id number] 12:54:47 Test Item Value Reference Range Interpretation Comments POC-GLUCOSE METER 120 mg/dL 70-110 H : TESTED A T [facility] 6720 (BEAKER) (test code = CAMILA Pemberton [facility], 1538) 15[address]: Tinning Machine Set Up Operator/Techni ethel ID = [id number] for Luz Maria Morse RAD, CHEST, 1 VIEW, NON [id number] 12:39:00 [facility] 1950 Sex: [...] in the right chest wall. Signed: Hue Smitheport Verified Date/Time: 03/27/2022 12:39:33 Reading Location: [address] Reading Room POCT-GLUCOSE [id number] 12:35:59 Test Item Value Reference Range Interpretation Comments POC-GLUCOSE METER 91 mg/dL 70-110 : TESTED A T [facility] 6720 ([facility]) (test code = [facility], 1538) [address]: Tinning Machine Set Up Operator/Techni ethel ID = [id number] for Catherine Mcintosh POCT-GLUCOSE [id number] 12:04:55 Test Item Value Reference Range Interpretation Comments POC-GLUCOSE METER 121 mg/dL 70-110 H : TESTED A T [facility] ([facility]) (test code = [facility], 1538) [address]: Tinning Machine Set Up Operator/Techni ethel ID = [id number] for IB RAHIM, [place] POCT-GLUCOSE [id number] 11:56:34 Test Item Value Reference Range Interpretation Comments POC-GLUCOSE METER 121 mg/dL 70-110 H : TESTED A T [facility] ([facility]) (test code = [facility], 1538) [address]: Tinning Machine Set Up Operator/Techni ethel ID = [id number] for IB RAHIM, [place] POCT-GLUCOSE [id number] 11:18:21 Test Item Value Reference Range Interpretation Comments POC-GLUCOSE METER 115 mg/dL 70-110 H : Notified RN/MD: TESTED ([facility]) [facility] [address] [address] = 1538) [facility], 770 30: Tinning Machine Set Up Operator/Techni ethel ID = [id number] for SUGU , SHEENAMOL POCT-GLUCOSE [id number] 11:05:54 Test Item Value Reference Range Interpretation Comments POC-GLUCOSE METER 143 mg/dL 70-110 H : TESTED A T [facility] ([facility]) (test code = [facility], 1538) 97909: Tinning Machine Set Up Operator/Techni ethel ID = [id number] for MA RIN, BRITTANY POCT-GLUCOSE [id number] 10:50:59 Test Item Value Reference Range Interpretation Comments POC-GLUCOSE METER 120 mg/dL 70-110 H : TESTED A T [facility] 6720 ([facility]) (test code = [facility], 1538) 92462: Tinning Machine Set Up Operator/Techni ethel ID = [id number] for BRITTANY STEVENSON POCT-GLUCOSE [id number] 08:57:10 Test Item Value Reference Range Interpretation Comments POC-GLUCOSE METER 96 mg/dL 70-110 : TESTED A T [facility] 6720 ([facility]) (test code = [facility], 1538) 811[address]: Tinning Machine Set Up Operator/Techni ethel ID = [id number] for YAHIR HOKEYA POCT-GLUCOSE [id number] 08:40:45 Test Item Value Reference Range Interpretation Comments POC-GLUCOSE METER 113 mg/dL 70-110 H : TESTED A T [facility] 6720 [facility] (test code = [facility], 1538) [address]: Tinning Machine Set Up Operator/Techni ethel ID = [id number] for RANDELL WESTON, TIKEYA RAD, CHEST, 1 VIEW, NON [id number] 07:47:00downtime order [facility] : 1950 Sex: FFINAL [...] MDReport Verified Date/Time: 03/27/2022 07:47:18 Reading Location: [address] Reading Room RAD, CHEST, 1 VIEW, NON [id number] 18:31:0024T-54 [facility] ESS[facility]PRI[facility] TROY : 1950 Sex: FFINAL REPORT EXAM: Chest [...] 03/26/2022 18:31:51 RAD, CHEST, 1 VIEW, NON [id number] 08:42:00downtime order [facility] ESS[facility]PRI[facility] TROY : 1950 Sex: FFINAL REPORT CHEST ONE [...] 03/26/2022 08:42:21 RAD, CHEST, 1 VIEW, NON [id number] 09:24:00downtime order [facility] : 1950 Sex: [...] MDReport Verified Date/Time: 03/25/2022 09:24:56 Reading Location: [address] Reading Room RAD, CHEST, 1 VIEW, NON [id number] 09:19:00downtime order [facility] : 1950 Sex: [...] MDReport Verified Date/Time: 03/24/2022 09:19:33 Reading Location: [address] Reading Room RAD, CHEST, 1 VIEW, NON [id number] 08:13:00downtime order [facility] : 1950 Sex: [...] Guillen Verified Date/Time: 03/23/2022 08:13:11 Reading Location: [address] Consult Reading Room RAD, CHEST, 1 VIEW, NON [id number] 08:07:00downtime order [facility] : 1950 Sex: FFINAL REPORT RAD, CHEST, 1 VIEW, NON DEPT INDICATION: eval pneumothorax am portable COMPARISON: Prior day's exam FINDINGS: Portable frontal view of the chest. IMPRESSION: Support Lines:Right pleural catheter. Lungs and pleura: Small right apical pneumothorax persists. Lungs are otherwise predominantly clear. Heart and mediastinum: Stable contours. Additional findings: None. Signed: Rubi Bullardeport Verified Date/Time: 03/22/2022 08:07:12 RAD, CHEST, 1 VIEW, NON [id number] 13:49:00 [facility] : 1950 Sex: [...] CHEST, 1 VIEW, NON DEPT 2022-03-20 15:27:00 [facility] : 1950 Sex: [...] 1 VIEW, NON DEPT 2022-03-20 13:35:00downtime order [facility] : 1950 Sex: [...] 03/20/2022 01:35 PMRAD, CHEST, 1 VIEW, NON [id number] 15:32:00 [facility] : 1950 Sex: [...] 03/19/2022 15:32:10 RAD, CHEST, 1 VIEW, NON [id number] 13:27:00downtime order [facility] : 1950 Sex: FFINAL [...] neck base subcutaneous emphysema is stable.Signed: Henrik Arceoort Verified Date/Time: 03/19/2022 13:27:14 RAD, CHEST, 1 VIEW, NON [id number] 17:24:00 [facility] : 1950 Sex: [...] 03/18/2022 17:24:25 RAD, CHEST, 1 VIEW, NON [id number] 14:01:00 [facility] : 1950 Sex: [...] in hazy right basilar opacity. Signed: Eduardo Ch[facility]ze [facility] Verified Date/Time: 03/16 14:01:11 RAD, CHEST, 1 VIEW, NON [id number] 10:58:00 [facility] : 1950 Sex: [...] small right pleural effusion. Signed: Eduardo Chávez [facility] Verified Date/Time: 03/15/2022 10:58:39 CT, CHEST, WITHOUT [id number] 08:54:00 [facility] : 1950 Sex: [...] MDReport Verified Date/Time: 03/14/2022 08:54:40 Reading Location: [facility] Diagnostic Imaging Reading Room [place] [address] RAD, CHEST, 1 VIEW, NON [id number] 18:07:00 [facility] : 1950 Sex: [...] small left pleural effusion. Signed: Eduardo Chávez Verified Date/Time: 03/13/2022 18:07:38 RAD, CHEST, 1 VIEW, NON DEPT 2022-03-13 13:42:00 [facility] : 1950 Sex: [...] Mcdonough Verified Date/Time: 03/13/2022 13:42:55 Reading Location: [address] Reading Room RAD, CHEST, 1 VIEW, NON [id number] 15:21:00 [facility] : 1950 Sex: [...] is magnified by technique. Signed: Trent Mcdonough [facility] Verified Date/Time: 03/12/2022 15:21:00 Reading Location: [address] CT, CHEST, WITHOUT [id number] 15:13:00pt with Knemothorax and sub emphysema. 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 This exam was performed according to our departmental dose optimization program which includes automated exposure control, adjustment of the mA and/or kV according to patient size and/or use of iterative reconstruction technique. FINDINGS: Lack of intravenous contrast compromises evaluation of perfusion and for isodense lesions. Lungs: Emphysema. Mild dependent left lower lobe atelectasis. A streakyright apical density which is likely related to pleuroparenchymal scarring or atelectasisCentral airways: Patent.Pleura: A right-sided chest tube. A moderate-sized right hydropneumothorax which is mostly gas and a small left pleural effusion..Lymph nodes: UnremarkableHeart and mediastinum: Pneumomediastinum. Severe coronary artery calcifications. Mild atherosclerosis of the thoracic aorta and branch v essels.Thyroid gland: Visualized portion unremarkableEsophagus: A moderate-sized sliding [...] right-sided chest tube. 2.Small left pleural effusion. 3.Extensive soft tissue gas and small pneumomediastinum. 4.Compression deformities involving every thoracic vertebral body level except T2 and possibly T5 and T12, with up to moderate height loss. Compression deformities in the upper lumbar spine with moderate height loss and mild resulting spinal canal narrowing. Age-indeterminate. Signed: Eugene Marsh Verified Date/Time: 03/12/2022 15:13:01 RAD, CHEST, 1 VIEW, NON [id number] 09:28:00 [facility] : 1950 Sex: [...] MDReport Verified Date/Time: 03/12/2022 09:28:54 Reading Location: [address] Reading Room RAD, CHEST, 1 VIEW, NON [id number] 20:25:00 [facility] : 1950 Sex: [...] emphysema of the right chest. Signed: Navdeep Jamisonort VerifiedDate/Time: 03/11/2022 20:25:10 RAD, CHEST, 1 VIEW, NON DEPT 2022-03-11 12:49:00 [facility] : 1950 Sex: [...] noted. There is no cardiomegaly. Signed: Trent Mcdonoughort Verified Date/Time: 03/11/2022 12:49:10 Reading Location: [address] Reading Room RAD, CHEST, 1 VIEW, NON [id number] 04:50:00 [facility] : 1950 Sex: [...] MDReport Verified Date/Time: 03/11/2022 04:50:39 U/S, ABDOMINAL, [id number] 00:56:00Abdomen limited area? Add comment if clarification is needed.->Liver Reason for exam:->transaminitis [facility] : 1950 Sex: FFINAL [...] 03/10/2022 00:56:46 RAD, CHEST, 1 VIEW, NON [id number] 23:31:00[facility] : 1950 Sex: [...] Signed: Melodie Begum Verified Date/Time: 03/09/2022 23:31:07 [id number] 20:29:49 Test Item Value Reference Range Interpretation Comments PARTIAL THROMBOPLASTIN TIME 60.3 seconds 22.5-36.0 H (BEAKER) (test code = 760) HIGH SENSITIVITY TROPONIN [id number] 18:55:40 Test Item Value Reference Range Interpretation Comments HIGH SENSITIVITY 44247 pg/ml See_Comment HH [Automated message] TROPONIN I (test code The sy stem which = [id number]) generated this result transmitted ref erence range: <=17. Th e reference range was not used to int erpret this result as normal/abnormal . Tinning Machine Set Up Operator ID - LEONCIO LThe OIL DISPENSER STAT High Sensitivity Troponin-I results should be used in conjunction with other diagnostic information such as ECG, clinical observations and information, and patient symptoms to aid in the diagnosis of NV.Tinning Machine Set Up Operator ID - LEONCIO L2D Echo W/Doppler(CW/PW/Color)2022-03-09 17:54:15Ejection [facility]ractionSLEH [facility]Do[facility](CW/PW/Color)2022-03-09 17:54:15Ejection FractionSLE [facility] 13:26:41 Test Item Value Reference Range Interpretation Comments PARTIAL THROMBOPLASTIN TIME 47.1 seconds 22.5-36.0 H (BEAKER) (test code = 760) HIGH SENSITIVITY TROPONIN [id number] 13:06:27 Test Item Value Reference Range Interpretation Comments HIGH SENSITIVITY 29474 pg/ml See_Comment HH [Automated message] TROPONIN I (test code The sy stem which = [id number]) generated this result transmitted ref erence range: <=17. Th e reference range was not used to int erpret this result as normal/abnormal . Tinning Machine Set Up Operator ID - CELESTE DThe OIL DISPENSER STAT High Sensitivity Troponin-I results should be used in conjunction with other diagnostic information such as ECG, clinical observations and information, and patient symptoms to aid in the diagnosis of NV.Tinning Machine Set Up Operator ID - CELESTE DHEPATITIS PANEL, [id number] 11:49:42 Test Item Value Reference Range Interpretation Comments HEPATITIS A IGM ANTIBODY (BEAKER) Nonreactive Nonreactive (test code = 498) HEPATITIS B CORE IGM ANTIBODY Nonreactive Nonreactive (BEAKER) (test code = 645) HEPATITIS C ANTIBODY (BEAKER) Nonreactive Nonreactive (test code = 367) HEPATITIS B SURFACE ANTIGEN (2) Nonreactive Nonreactive (BEAKER) (test code = 2585) Tinning Machine Set Up Operator ID - CELESTE DLIPID [id number] 11:01:28 Test Item Value Reference Range Interpretation [...] Borderline 130-159 High 160-189 Very High >=190 Tinning Machine Set Up Operator ID - CELESTE DPOCT-GLUCOSE [id number] 07:36:41 Test Item Value Reference Range Interpretation Comments POC-GLUCOSE METER 123 mg/dL 70-110 H : TESTED A T [facility] (JATINDER) (test code = [place], 1538) [address]: Tinning Machine Set Up Operator/Techni ethel ID = [id number] for Ly nch, Catherine RAD, CHEST, 1 VIEW, NON [id number] 07:05:00Reason for exam:->f/u R PTXShould this be performed at the bedside?->Yes [facility] : 1950 Sex: FFINAL REPORT RAD, CHEST, 1 VIEW, NON DEPT INDICATION: f/u R PTX COMPARISON: Prior day's exam FINDINGS: Portable frontal view of the chest. IMPRESSION: Support Lines: Right chest tube. Lungs and pleura: Hazy bilateral airspace opacities, small left effusion and retrocardiac atelectasisare unchanged. No significant pneumothorax. Heart and mediastinum: Stable contours. Stable surgical changes. Additional findings: None. Signed: Rubi Cerda Verified Date/Time: 03/09/2022 07:05:49 [id number] 06:21:45 Test Item Value Reference Range Interpretation Comments FERRITIN (BEAKER) (test code = 78.90 ng/mL 5.00-275.00 361) Tinning Machine Set Up Operator ID - PIAYA LVITAMIN [id number] 06:21:44 Test Item Value Reference Range Interpretation Comments VITAMIN B12 (BEAKER) (test code = 1093 pg/mL 213-816 H 774) Tinning Machine Set Up Operator ID - PIAYA LHIGH SENSITIVITY TROPONIN [id number] 05:02:11 Test Item Value Reference Range Interpretation Comments HIGH SENSITIVITY 70802 pg/ml See_Comment HH [Automated message] TROPONIN I (test code The sy stem which = [id number]) generated this result transmitted ref erence range: <=17. Th e reference range was not used to int erpret this result as normal/abnormal . Tinning Machine Set Up Operator ID - PIAYA LThe OIL DISPENSER STAT High Sensitivity Troponin-I results should be used in conjunction with other diagnostic information such as ECG, clinical observations and information, and patient symptoms to aid in the diagnosis of NV.Tinning Machine Set Up Operator ID - PIAYA LCOMPREHENSIVE METABOLIC [id number] 04:16:10 Test Item Value Reference Range Interpretation [...] St age Description sq m Result G1 Norm al or high >=90 G2 Mildly decreased 60-89 [...] not appl icable for dialysis patien ts Tinning Machine Set Up Operator ID - LEONCIO [id number] 04:16:10 Test Item Value Reference Range Interpretation Comments MAGNESIUM (BEAKER) (test code = 1.8 mg/dL 1.6-2.6 627) Tinning Machine Set Up Operator ID Juan SUGGSKULDEEP [id number] 04:14:40 Test Item Value Reference Range Interpretation Comments PARTIAL THROMBOPLASTIN TIME 177.0 seconds 22.5-36.0 HH (BEAKER) (test code = 760) B-TYPE NATRIURETIC FACTOR (BNP)2022-03-09 04:01:03 Test Item Value Reference Range Interpretation Comments B-TYPE NATRIURETIC PEPTIDE (BEAKER) 875 pg/mL 0-100 H (test code = 700) Tinning Machine Set Up Operator ID - PIAYA LCBC W/PLT COUNT & AUTO [id number] 03:53:57 Test Item Value Reference Range Interpretation [...] = 2801) RAD, CHEST, 1 VIEW, NON [id number] 02:56:00Reason for exam:- >pneumothoraxShould this be performed at the bedside?->Yes [facility] 1950 Sex: [...] % 20-55 L (test code = 2590) Tinning Machine Set Up Operator ID Juan FANG [id number] 01:11:36 Test Item Value Reference Range Interpretation Comments PARTIAL THROMBOPLASTIN TIME 28.0 seconds 22.5-36.0 (BEAKER) (test code = 760) PROTHROMBIN TIME/[id number] 01:11:00 Test Item Value Reference Range Interpretation Comments PROTIME (BEAKER) 15.2 seconds 11.9-14.2 H (test code = 759) INR (BEAKER) (test 1.23 See_Comment [Automat ed message] code = 370) The system [employer] generated this result transmitted ref erence range: <=5.90. The reference range was not used to int erpret this result as normal/abnormal . RECOMMENDED COUMADIN/WARFARIN INR THERAPY RANGESSTANDARD DOSE: 2.0 - 3.0 Includes: PROPHYLAXIS for venous thrombosis, systemic embolization; TREATMENT for venous thrombosis and/or pulmonary embolus.HIGH RISK: Target INR is 2.5-3.5 for patients with mechanical heart valves.HIGH SENSITIVITY TROPONIN [id number] 00:51:17 Test Item Value Reference Range Interpretation Comments HIGH SENSITIVITY 8303 pg/ml See_Comment HH [Automated message] TROPONIN I (test code The [facility] which = [id number]) generated this result transmitted ref erence range: <=17. Th e reference range was not used to int erpret this result as normal/abnormal . Tinning Machine Set Up Operator ID Jaun FANG LThe OIL DISPENSER STAT High Sensitivity Troponin-I results should be used in conjunction with other diagnostic information such as ECG, clinical observations and information, and patient symptoms to aid in the diagnosis of NV.Tinning Machine Set Up Operator ID Juan FANG LCOMPREHENSIVE METABOLIC [id number] 00:45:53 Test Item Value Reference Range Interpretation [...] G3b Moderately to s everely 30-44 G4 Sever ly decreased 15-29 G5 Kidney failure <15Repo rted eGFR is based on the CKD-EPI 1 equation t hat does not use a race coefficientEsti mated GFR is not as accur ate as Creatinine Meghana dick in predicting glom erular filtration rate . Estimated GFR is not appl icable for dialysis patien ts Tinning Machine Set Up Operator ID - PIAYA [id number] 00:45:52 Test Item Value Reference Range Interpretation Comments MAGNESIUM (BEAKER) 1.9 mg/dL 1.6-2.6 Specimen slightly (test code = 627) hemolyzed Tinning Machine Set Up Operator ID - EMMANUELOperator ID - IFEANYIAYA LPOCT-GLUCOSE [id number] 00:33:58 Test Item Value Reference Range Interpretation Comments POC-GLUCOSE METER 102 mg/dL 70-110 : TESTED A T [facility] 6720 (BEAKER) (test code = [place], 1538) [address]: Tinning Machine Set Up Operator/Techni ethel ID = [id number] for Shahana Germain CBC W/PLT COUNT & AUTO [id number] 00:25:04 Test Item Value Reference Range Interpretation [...] (BEAKER) (test code = 2801) LACTIC ACID, [id number] 00:22:31 Test Item Value Reference Range Interpretation Comments LACTATE BLOOD VENOUS 1.06 mmol/L 0.50-2.20 Specime n slightly (2) (BEAKER) (test hemolyzed code = 2872) Tinning Machine Set Up Operator ID - EMMANUELBLOOD GAS, [id number] 23:52:32 Test Item Value Reference Range Interpretation [...] (BEAKER) (test code = 1819) 28.0 POCT-GLUCOSE [id number] 12:15:00 Test Item Value Reference Range Interpretation Comments POC-GLUCOSE METER 122 mg/dL 70-110 H : TESTED A T [facility] 6720 (BEAKER) (test code = [facility], 1538) [address]: Tinning Machine Set Up Operator/Techni ethel ID = [id number] for BALAJI HOGAN POCT-GLUCOSE [id number] 07:43:00 Test Item Value Reference Range Interpretation Comments POC-GLUCOSE METER 81 mg/dL 70-110 : TESTED A T [facility] 6720 (BEAKER) (test code = [facility], 1538) [address]: Tinning Machine Set Up Operator/Techni ethel ID = [id number] for ORBALAJI VALDEZ COMPREHENSIVE METABOLIC [id number] 07:11:00 Test Item Value Reference Range Interpretation [...] S NOT APPLICABLE FOR DIALYSIS PATIEN TS. Tinning Machine Set Up Operator ID - KEVIN [id number] 07:11:00 Test Item Value Reference Range Interpretation Comments MAGNESIUM (BEAKER) (test code = 2.3 mg/dL 1.6-2.6 627) Tinning Machine Set Up Operator ID - KEVIN [id number] 07:11:00 Test Item Value Reference Range Interpretation Comments PHOSPHORUS (BEAKER) (test code = 3.8 mg/dL 2.3-4.7 604) Tinning Machine Set Up Operator ID - KEVIN MCALCIUM, [id number] 06:48:00 Test Item Value Reference Range Interpretation Comments CALCIUM IONIZED (BEAKER) (test 1.25 mmol/L 1.12-1.27 code = 698) PH, BLOOD (BEAKER) (test code = 7.29 1810) CBC W/PLT COUNT & AUTO [id number] 06:45:00 Test Item Value Reference Range Interpretation [...] PERCENT (BEAKER) (test code = 2801) POCT-GLUCOSE [id number] 21:16:00 Test Item Value Reference Range Interpretation Comments POC-GLUCOSE METER 103 mg/dL 70-110 : TESTED A T [facility] 6720 (BEAKER) (test code = [facility], 1538) [address]: Tinning Machine Set Up Operator/Techni ethel ID = [id number] for JUDY PIERREINE POCT-GLUCOSE [id number] 17:06:00 Test Item Value Reference Range Interpretation Comments POC-GLUCOSE METER 137 mg/dL 70-110 H : TESTED A T [facility] 6720 (BEAKER) (test code = [facility], 1538) [address]: Tinning Machine Set Up Operator/Techni ethel ID = [id number] for OR PHEY, BALAJI POCT-GLUCOSE [id number] 12:31:00 Test Item Value Reference Range Interpretation Comments POC-GLUCOSE METER 121 mg/dL 70-110 H : TESTED A T [facility] 6720 (BEAKER) (test code = [facility], 1538) [address]: Tinning Machine Set Up Operator/Techni ethel ID = [id number] for OR PHEY, BALAJI POCT-GLUCOSE [id number] 08:27:00 Test Item Value Reference Range Interpretation Comments POC-GLUCOSE METER 81 mg/dL 70-110 : TESTED A T [facility] 6720 (BEAKER) (test code = [facility], 1538) 00895: Tinning Machine Set Up Operator/Techni ethel ID = [id number] for ORPH EY, BALAJI COMPREHENSIVE METABOLIC [id number] 07:14:00 Test Item Value Reference Range Interpretation [...] S NOT APPLICABLE FOR DIALYSIS PATIEN TS. Tinning Machine Set Up Operator ID - LEONCIO [id number] 07:14:00 Test Item Value Reference Range Interpretation Comments MAGNESIUM (BEAKER) (test code = 2.0 mg/dL 1.6-2.6 627) Tinning Machine Set Up Operator ID - LEONCIO [id number] 07:14:00 Test Item Value Reference Range Interpretation Comments PHOSPHORUS (BEAKER) (test code = 3.1 mg/dL 2.3-4.7 604) Tinning Machine Set Up Operator ID - LEONCIO LCALCIUM, [id number] 06:30:00 Test Item Value Reference Range Interpretation Comments CALCIUM IONIZED (BEAKER) (test 1.22 mmol/L 1.12-1.27 code = 698) PH, BLOOD (BEAKER) (test code = 7.32 1810) CBC W/PLT COUNT & AUTO [id number] 06:18:00 Test Item Value Reference Range Interpretation [...] PERCENT (BEAKER) (test code = 2801) POCT-GLUCOSE [id number] 21:58:00 Test Item Value Reference Range Interpretation Comments POC-GLUCOSE METER 206 mg/dL 70-110 H : TESTED A T [facility] 6720 (BEAKER) (test code = [facility], 1538) 59771: Tinning Machine Set Up Operator/Techni ethel ID = [id number] for Re yes, Sairy POCT-GLUCOSE [id number] 17:15:00 Test Item Value Reference Range Interpretation Comments POC-GLUCOSE METER 114 mg/dL 70-110 H : TESTED A T [facility] 6720 (BEAKER) (test code = [facility], 1538) 00354: Tinning Machine Set Up Operator/Techni ethel ID = [id number] for BEATRIZ HN, ULISES POCT-GLUCOSE [id number] 12:21:00 Test Item Value Reference Range Interpretation Comments POC-GLUCOSE METER 135 mg/dL 70-110 H : TESTED A T [facility] 6720 (BEAKER) (test code = [facility], 1538) 30971: Tinning Machine Set Up Operator/Techni ethel ID = [id number] for BEATRIZ HN, ULISES POCT-GLUCOSE [id number] 07:54:00 Test Item Value Reference Range Interpretation Comments POC-GLUCOSE METER 124 mg/dL 70-110 H : TESTED A T [facility] 6720 (BEAKER) (test code = [facility], 1538) 78366: Tinning Machine Set Up Operator/Techni ethel ID = [id number] for BEATRIZ HN, ULISES RAD, CHEST, 1 VIEW, NON [id number] 07:15:00Reason for exam:->eval PNXShould this be performed at the bedside?->Yes [facility] 1950 Sex: [...] MDReport Verified Date/Time: 12/17/2020 07:15:57 [facility] CALCIUM, [id number] 06:45:00 Test Item Value Reference Range Interpretation Comments CALCIUM IONIZED (BEAKER) (test 1.23 mmol/L 1.12-1.27 code = 698) PH, BLOOD (BEAKER) (test code = 7.39 1810) COMPREHENSIVE METABOLIC [id number] 06:36:00 Test Item Value Reference Range Interpretation [...] S NOT APPLICABLE FOR DIALYSIS PATIEN TS. Tinning Machine Set Up Operator ID - LATA [id number] 06:36:00 Test Item Value Reference Range Interpretation Comments MAGNESIUM (BEAKER) (test code = 2.0 mg/dL 1.6-2.6 627) Tinning Machine Set Up Operator ID Juan GUIDO [id number] 06:36:00 Test Item Value Reference Range Interpretation Comments PHOSPHORUS (BEAKER) (test code = 2.6 mg/dL 2.3-4.7 604) Tinning Machine Set Up Operator ID Juan GUIDO WCBC W/PLT COUNT & AUTO [id number] 05:59:00 Test Item Value Reference Range Interpretation [...] PERCENT (BEAKER) (test code = 2801) POCT-GLUCOSE [id number] 21:05:00 Test Item Value Reference Range Interpretation Comments POC-GLUCOSE METER 134 mg/dL 70-110 H : TESTED A T [facility] 6720 (BEAKER) (test code = [facility] [place] [facility], 153) 94250: Tinning Machine Set Up Operator/Techni ethel ID = [id number] for Co rtez, [place] POCT-GLUCOSE [id number] 17:20:00 Test Item Value Reference Range Interpretation Comments POC-GLUCOSE METER 131 mg/dL 70-110 H : TESTED A T [facility] 6720 (BEAKER) (test code = [facility] [place] [facility], 153) 26412: Tinning Machine Set Up Operator/Techni ethel ID = [id number] for BEATRIZ TRENT ULISES POCT-GLUCOSE [id number] 12:22:00 Test Item Value Reference Range Interpretation Comments POC-GLUCOSE METER 159 mg/dL 70-110 H : TESTED A T [facility] 6720 (BEAKER) (test code = CAMILA [place] [facility], 1538) 88627: Tinning Machine Set Up Operator/Techni ethel ID = [id number] for ULISES SCHMITZ RAD, CHEST, 1 VIEW, NON [id number] 07:50:00Reason for exam:->eval PNXShould this be performed at the bedside?->Yes [facility] 1950 Sex: [...] Downing Verified Date/Time: 12/16/2020 07:50:48 Reading Location: [address] Reading Room POCT-GLUCOSE [id number] 07:42:00 Test Item Value Reference Range Interpretation Comments POC-GLUCOSE METER 124 mg/dL 70-110 H : TESTED A T [facility] 6720 (BEAKER) (test code = CAMILA [place] [facility], 1538) 82182: Tinning Machine Set Up Operator/Techni ethel ID = [id number] for ULISES SCHMITZ COMPREHENSIVE METABOLIC [id number] 05:29:00 Test Item Value Reference Range Interpretation [...] S NOT APPLICABLE FOR DIALYSIS PATIEN TS. Tinning Machine Set Up Operator ID - LATA [id number] 05:29:00 Test Item Value Reference Range Interpretation Comments MAGNESIUM (BEAKER) (test code = 2.1 mg/dL 1.6-2.6 627) Tinning Machine Set Up Operator ID - LATA [id number] 05:29:00 Test Item Value Reference Range Interpretation Comments PHOSPHORUS (BEAKER) (test code = 3.1 mg/dL 2.3-4.7 604) Tinning Machine Set Up Operator ID - LATA WCBC (HEMOGRAM ONLY)2020-12-16 05:18:00 [...] = 413) RAD, CHEST, 1 VIEW, NON [id number] 03:15:00Reason for exam:- >pnuemothoraxShould this be performed at the bedside?->Yes [facility] : 1950 Sex: [...] Devante Mckenzie Verified Date/Time: 12/16/2020 03:15:49 POCT-GLUCOSE [id number] 21:17:00 Test Item Value Reference Range Interpretation Comments POC-GLUCOSE METER 82 mg/dL 70-110 : TESTED A T [facility] 6720 ([facility]) (test code = [facility], 153) 59500: Tinning Machine Set Up Operator/Techni ethel ID = [id number] for Reilly ez, Chela POCT-GLUCOSE [id number] 16:59:00 Test Item Value Reference Range Interpretation Comments POC-GLUCOSE METER 145 mg/dL 70-110 H : Notified RN/MD: ([facility]) (test code = TESTED AT [facility] 6720 1538) [facility], 570[address]: Tinning Machine Set Up Operator/Techni ethel ID = [id number] for GO NZALEZ, LLANE POCT-GLUCOSE [id number] 13:21:00 Test Item Value Reference Range Interpretation Comments POC-GLUCOSE METER 116 mg/dL 70-110 H : TESTED A T [facility] 6720 ([facility]) (test code = [facility], 153) 94226: Tinning Machine Set Up Operator/Techni ethel ID = [id number] for Michaela Bhardwaj rd RAD, CHEST, 1 VIEW, NON [id number] 12:07:00Reason for exam:->PTXShould this be performed at the bedside?->Yes [facility] : 1950 Sex: [...] Fernandez Verified Date/Time: 12/15/2020 12:07:16 Reading Location: [facility] C013X Ortho Consult Reading Room BLOOD GAS, [id number] 11:16:00 Test Item Value Reference Range Interpretation [...] (BEAKER) (test code = 1819) 28.0 POCT-GLUCOSE [id number] 08:19:00 Test Item Value Reference Range Interpretation Comments POC-GLUCOSE METER 116 mg/dL 70-110 H : [facility]ED A T [facility] 6720 (BEAKER) ([facility] = 1538) 82612: Tinning Machine Set Up Operator/Techni ethel ID = [id number] for Feng delgado (contract), [facility] francisco javier COMPREHENSIVE METABOLIC [id number] 05:46:00 Test Item Value Reference Range Interpretation [...] S NOT APPLICABLE FOR DIALYSIS PATIEN TS. Tinning Machine Set Up Operator ID - [id number] 05:46:00 Test Item Value Reference Range Interpretation Comments MAGNESIUM (BEAKER) (test code = 1.9 mg/dL 1.6-2.6 627) Tinning Machine Set Up Operator ID - [id number] 05:46:00 Test Item Value Reference Range Interpretation Comments PHOSPHORUS (BEAKER) (test code = 3.0 mg/dL 2.3-4.7 604) Tinning Machine Set Up Operator ID - EDASIRAD, CHEST, 1 VIEW, NON [id number] 05:32:00Reason for exam:->eval PNXShould this be performed at the bedside?->Yes [facility] : 1950 Sex: FFINAL REPORT RAD, CHEST, 1 VIEW, NON DEPT INDICATION: eval PNX COMPARISON: Exam fromfive hours prior FINDINGS: Portable frontal view of the chest. IMPRESSION: Support Lines: Stable right chest tube. Lungs and pleura: Unchanged blunting of both costophrenic angles. No airspace consolidation. No discernible pneumothorax.Heart and mediastinum: Stable contours.Additional findings: None. Signed: Navdeep Jamison [facility] Verified Date/Time: 12/15/2020 05:32:54 IUM, [id number] 05:14:00 Test Item Value Reference Range Interpretation [...] (BEAKER) (test code = 413) BLOOD GAS, [id number] 01:14:00 Test Item Value Reference Range Interpretation [...] (test 37.0 code = 1818) RESPIRATORY PANEL [id number] 00:01:00 Test Item Value Reference Range Interpretation Comments HUMAN METAPNEUMOVIRUS Not detected Not detected, (BEAKER) (test code = Equivocal 0593) RHINOVIRUS (BEAKER) Not detected Not detected, (test code = 8504) Equivocal INFLUENZA A (BEAKER) Not detected Not detected, (test code = 3575) Equivocal INFLUENZA A (NO SUBTYPE) (test code = 6655) INFLUENZA A SUBTYPE H1 (BEAKER) (test code = 7776) INFLUENZA A SUBTYPE H3 (BEAKER) (test code = 2317) INFLUENZA A SUBTYPE H1-2009 (BEAKER) (test code [...] decisions. This sample was tested at the [facility] using the CPM BraxisArray Respiratory Panel. It is FDA cleared and has been verified and approved by the [facility] for clinical use on nasopharyngeal swab specimens.The performance of the FilmArrayRP has not been established in individuals who received influenza vaccine. Recent administration of a nasal influenza vaccine may cause false positive results for Influenza A and/orInfluenza B.SARS-COV2/RT-PCR ([facility])2020-12-14 23:51:00 Test Item Value Reference Range Interpretation Comments SARS-COV2/RT-PCR Negative Negative The SARS-Co V-2 target (test code = 7651059) nuclei c acids are not detected in [...] Xpress SARS-CoV-2/Flu/RSV by their healthcareprovider. Results from stuart Xpert Xpress SARS-CoV-2/Flu/RSV test should be correlated [...] of the Act.Fact Sheet for Healthcare Providers:https ://www.CinemaKi/Documents/Xpert%20Xpress%20SARS%20CoV-2/Fact%20Sheets/302-390 2%33KNEC-LHT-9%20HEALTHCARE%20PROVIDERS%20FACT%20SHEET.pdfFact Sheet for Healthcare Patients:https://www.CinemaKi/Docum ents/Xpert%20Xpress%20SARS%20Cov-2/Fact%20Sheets/302-3801%35NKWX-HPU-0%20PATIENT %20FACT%20SHEET.pdfTSH/FREE T4 IF [id number] 22:33:00 Test Item Value Reference Range Interpretation Comments THYROID STIMULATING HORMONE 2.265 uIU/mL 0.350-4.940 (BEAKER) (test code = 772) Tinning Machine Set Up Operator ID - [id number] 22:20:00 Test Item Value Reference Range Interpretation Comments PROCALCITONIN (BEAKER) (test code 0.23 ng/mL <0.05 H = 3036) SEPSIS RISK (ng/mL)Low: 0.05-0.50Intermediate: 0.51-2.00High: >=2.01MAGNESIUM 2020-12-14 22:12:00 Test Item Value Reference Range Interpretation Comments MAGNESIUM (BEAKER) 2.0 mg/dL 1.6-2.6 Specimen slightly (test code = 627) hemolyzed Tinning Machine Set Up Operator ID - [id number] 22:12:00 Test Item Value Reference Range Interpretation Comments PHOSPHORUS (BEAKER) 4.5 mg/dL 2.3-4.7 Specimen slightly (test code = 604) hemolyzed Tinning Machine Set Up Operator ID - ADMINCOMPREHENSIVE METABOLIC [id number] 22:12:00 Test Item Value Reference Range Interpretation [...] S NOT APPLICABLE FOR DIALYSIS PATIEN TS. Tinning Machine Set Up Operator ID - ADMINC-REACTIVE [id number] 22:12:00 Test Item Value Reference Range Interpretation Comments C-REACTIVE PROTEIN (BEAKER) (test 0.86 mg/dL 0.00-0.50 H code = 676) Tinning Machine Set Up Operator ID - ADMINLACTIC ACID, [id number] 22:07:00 Test Item Value Reference Range Interpretation Comments LACTATE BLOOD VENOUS (2) (BEAKER) 1.86 mmol/L 0.50-2.20 (test code = 2872) Tinning Machine Set Up Operator ID - ADMINPOCT-GLUCOSE [id number] 21:53:00 Test Item Value Reference Range Interpretation Comments POC-GLUCOSE METER 89 mg/dL 70-110 : [facility] (test code = [facility]IL[facility] [place] ID, 1538) 00364: Tinning Machine Set Up Operator/Techni ethel ID = [id number] for Elsi Diaz CBC (HEMOGRAM ONLY)2020-12-14 21:53:00 [...] (BEAKER) (test code = 413) BLOOD GAS, [id number] 21:49:00 Test Item Value Reference Range Interpretation [...] (BEAKER) (test code = 1819) 40.0 CALCIUM, [id number] 21:48:00 Test Item Value Reference Range Interpretation Comments CALCIUM IONIZED (BEAKER) (test 1.18 mmol/L 1.12-1.27 code = 698) PH, BLOOD (BEAKER) (test code = 7.22 1810) RAD, CHEST, 1 VIEW, NON [id number] 20:50:00Reason for exam:->chest tube placementShould this be performed at the bedside?->Yes [facility] 1950 Sex: [...] post right chest tube placement. Signed: [facility] Verified Date/Time: 12/14/2020 20:50:14 Reading Location: [address] Consult Reading Room [id number] 14:04:21 Test Item Value Reference Range Interpretation Comments ALBUMIN (test code = 3464808194) 3.2 g/dL 3.5-5.0 L Lab Interpretation (test code = Abnormal 72980-5) [facility] (NA, K, CL, CO2, GLUCOSE, BUN, CREATININE, CA)2020-12-04 10:57:25 Test Item Value Reference Range Interpretation Comments NA (test code = 137 mmol/L 135-145 7406941918) K (test code = 3.9 mmol/L 3.5-5.0 6069362434) CL (test code = 95 mmol/L 98-108 L 9556023498) CO2 TOTAL (test code = 36 mmol/L 23-31 H 4160088077) AGAP (test code = 2-16 1481414816) BUN (test code = 15 mg/dL 7-23 3480663765) GLUCOSE (test code = 92 mg/dL 70-110 2510201992) CREATININE (test code = 0.53 mg/dL 0.50-1.04 6644747511) CALCIUM (test code = 8.9 mg/dL 8.6-10.6 3696891785) eGFR (test code = mL/min/1.73m2 5853713781) CHRISTINE (test code = CHRISTINE) Association of [...] tests). Lab Interpretation Abnormal (test code = 06388-7) [facility] 10[facility]46[facility] Test Item Value Reference Range Interpretation Comments MAGNESIUM (test code = 6262620967) 2.0 mg/dL 1.7-2.4 Lab Interpretation (test code = Normal 75851-5) [facility] WITH [id number] 10:19:38 Test Item Value Reference Range Interpretation [...] (test code = 52.2 fL 39.0-49.9 H 17356-3) RDW-CV (test code = 15.9 % 12.0-15.5 H 788-0) PLT (test code = See_Comment [Automated 777-3) message] The sy stem which generated this result transmitted reference range : 166 - 358 10*3/ ?L. The reference r crispin was not used to interpret this result as normal/abnormal . MPV (test code = 9.6 fL 9.5-12.9 42168-8) NRBC/100 WBC (test See_Comment [Automat ed code = 8777207109) message] The system which generated this result transmitted reference range : 0.0 - 10.0 /100 WBCs. The refer ence range was not u sed to interpret th is result as normal/abnormal . NRBC x10^3 (test code <0.01 See_Comment [Auto mated = 4240800075) message] The s ystem which generated this result transmitted reference range : 10*3/?L. The reference range was not used to interpret this result as normal/abnormal . GRAN MAT (NEUT) % 56.8 % (test code = 770-8) IMM GRAN % (test code 0.30 % = 2738393229) LYMPH % (test code = 18.2 % 736-9) MONO % (test code = 17.8 % 5905-5) EOS % (test code = 6.2 % 713-8) BASO % (test code = 0.7 % 706-2) GRAN MAT x10^3(ANC) 3.41 10*3/uL 1.88-7.09 (test code = 5480690282) IMM GRAN x10^3 (test <0.03 0.00-0.06 code = 0255991351) LYMPH x10^3 (test code 1.09 10*3/uL 1.32-3.29 L = 731-0) MONO x10^3 (test code 1.07 10*3/uL 0.33-0.92 H = 742-7) EOS x10^3 (test code = 0.37 10*3/uL 0.03-0.39 711-2) BASO x10^3 (test code 0.04 10*3/uL 0.01-0.07 = 704-7) Lab Interpretation Abnormal (test code = 02918-0) [facility] METABOLIC PANEL (NA, K, CL, CO2, GLUCOSE, BUN, CREATININE, CA)2020-12-03 11:48:25 Test Item Value Reference Range Interpretation Comments NA (test code = 137 mmol/L 135-145 2740324605) K (test code = 3.6 mmol/L 3.5-5.0 Slight 3608757361) hemolysis CL (test code = 93 mmol/L 98-108 L 8332845723) CO2 TOTAL (test code 38 mmol/L 23-31 H = 4792124007) AGAP (test code = 2-16 5788857483) BUN (test code = 14 mg/dL 7-23 Slight 4348743977) hemolysis GLUCOSE (test code = 94 mg/dL 70-110 4156566115) CREATININE (test code 0.44 mg/dL 0.50-1.04 L = 0564588320) CALCIUM (test code = 9.2 mg/dL 8.6-10.6 1408021546) eGFR (test code = mL/min/1.73m2 5306118575) CHRISTINE (test code = CHRISTINE) Association of [...] tests). Lab Interpretation Abnormal (test code = 66931-7) [facility]2021-[facility] 11:48:25 Test Item Value Reference Range Interpretation Comments MAGNESIUM (test code = 2718138728) 2.0 mg/dL 1.7-2.4 Lab Interpretation (test code = Normal 94470-6) [facility] WITH [id number] 11:28:06 Test Item Value Reference Range Interpretation Comments WBC (test code = See_Comment [Automated 4090-2) message] The sy stem which generated this [...] (test code = 53.5 fL 39.0-49.9 H 25274-1) RDW-CV (test code = 15.8 % 12.0-15.5 H 788-0) PLT (test code = See_Comment [Automated 777-3) message] The sy stem which generated this result transmitted reference range : 166 - 358 10*3/ ?L. The reference r crispin was not used to interpret this result as normal/abnormal . MPV (test code = 9.8 fL 9.5-12.9 66098-4) NRBC/100 WBC (test See_Comment [Automat ed code = 8594771587) message] The system which generated this result transmitted reference range : 0.0 - 10.0 /100 WBCs. The refer ence range was not u sed to interpret th is result as normal/abnormal . NRBC x10^3 (test code <0.01 See_Comment [Auto mated = 6986500901) message] The s ystem which generated this result transmitted reference range : 10*3/?L. The reference range was not used to interpret this result as normal/abnormal . GRAN MAT (NEUT) % 59.3 % (test code = 770-8) IMM GRAN % (test code 0.30 % = 7804531629) LYMPH % (test code = 21.7 % 736-9) MONO % (test code = 14.6 % 5905-5) EOS % (test code = 3.6 % 713-8) BASO % (test code = 0.5 % 706-2) GRAN MAT x10^3(ANC) 4.45 10*3/uL 1.88-7.09 (test code = 5920183617) IMM GRAN x10^3 (test <0.03 0.00-0.06 code = 5123101724) LYMPH x10^3 (test code 1.63 10*3/uL 1.32-3.29 = 731-0) MONO x10^3 (test code 1.10 10*3/uL 0.33-0.92 H = 742-7) EOS x10^3 (test code = 0.27 10*3/uL 0.03-0.39 711-2) BASO x10^3 (test code 0.04 10*3/uL 0.01-0.07 = 704-7) Lab Interpretation Abnormal (test code = 43160-6) [facility] CULTURE [id number] 17:01:30 Test Item Value Reference Range Interpretation Comments Blood Culture-Aerobic No organisms No growth Previo us (test code = 30725-5) isolated prelim inary verified result was Culture [...] Culture-Anaerobic isolated preliminar y (test code = 04403-4) verifi ed result was Culture In Progress [...] CDT Lab Interpretation Normal (test code = 80765-2) [facility] CULTURE [id number] 16:01:30 Test Item Value Reference Range Interpretation Comments Blood Culture-Aerobic No organisms No growth Previo us (test code = 75768-3) isolated prelim inary verified result was Culture [...] Culture-Anaerobic isolated preliminar y (test code = 78986-0) verifi ed result was Culture In Progress [...] CDT Lab Interpretation Normal (test code = 48916-5) [facility] [id number] 16:12:34 Test Item Value Reference Range Interpretation Comments SPUTUM CULTURE 1+ Respiratory daniel: (test code = 622-1) Commensal upper respiratory microorganisms only. Gram stain (test Occasional (Rare) code = 664-3) Epithelial cells CHRISTINE (test code = Bacterial pathogens CHRISTINE) associated with lower respiratory infections were not identified, which include Pseudomonas aeruginosa and Staphylococcus aureus (MRSA or MSSA). [facility] (NA, K, CL, CO2, GLUCOSE, BUN, CREATININE, CA)2020-12-01 10:12:53 Test Item Value Reference Range Interpretation Comments NA (test code = 137 mmol/L 135-145 0130806664) K (test code = 3.6 mmol/L 3.5-5.0 3206535510) CL (test code = 94 mmol/L 98-108 L 3211715663) CO2 TOTAL (test code = 35 mmol/L 23-31 H 3068350743) AGAP (test code = 2-16 9273994833) BUN (test code = 17 mg/dL 7-23 6586563010) GLUCOSE (test code = 88 mg/dL 70-110 8649640227) CREATININE (test code = 0.38 mg/dL 0.50-1.04 L 7020660801) CALCIUM (test code = 8.6 mg/dL 8.6-10.6 4811161906) eGFR (test code = mL/min/1.73m2 5533089098) CHRISTINE (test code = CHRISTINE) Association of [...] tests). Lab Interpretation Abnormal (test code = 15371-6) [facility]2021-06-26 10:02:28 Test Item Value Reference Range Interpretation Comments MAGNESIUM (test code = 1259232595) 2.0 mg/dL 1.7-2.4 Lab Interpretation (test code = Normal 31429-7) [facility]2021-06-26 10:02:28 Test Item Value Reference Range Interpretation Comments PHOSPHORUS (test code = 7847187171) 3.5 mg/dL 2.5-5.0 Lab Interpretation (test code = Normal 24353-9) [facility] WITH [id number] 09:52:48 Test Item Value Reference Range Interpretation [...] (test code = 54.5 fL 39.0-49.9 H 05548-0) RDW-CV (test code = 15.9 % 12.0-15.5 H 788-0) PLT (test code = See_Comment [Automated 777-3) message] The sy stem which generated this result transmitted reference range : 166 - 358 10*3/ ?L. The reference r crispin was not used to interpret this result as normal/abnormal . MPV (test code = 9.5 fL 9.5-12.9 03775-3) NRBC/100 WBC (test See_Comment [Automat ed code = 7257406725) message] The system which generated this result transmitted reference range : 0.0 - 10.0 /100 WBCs. The refer ence range was not u sed to interpret th is result as normal/abnormal . NRBC x10^3 (test code <0.01 See_Comment [Auto mated = 8396205140) message] The s ystem which generated this result transmitted reference range : 10*3/?L. The reference range was not used to interpret this result as normal/abnormal . GRAN MAT (NEUT) % 64.3 % (test code = 770-8) IMM GRAN % (test code 0.30 % = 3941242307) LYMPH % (test code = 17.9 % 736-9) MONO % (test code = 13.5 % 5905-5) EOS % (test code = 3.7 % 713-8) BASO % (test code = 0.3 % 706-2) GRAN MAT x10^3(ANC) 3.85 10*3/uL 1.88-7.09 (test code = 3444154759) IMM GRAN x10^3 (test <0.03 0.00-0.06 code = 2168690239) LYMPH x10^3 (test code 1.07 10*3/uL 1.32-3.29 L = 731-0) MONO x10^3 (test code 0.81 10*3/uL 0.33-0.92 = 742-7) EOS x10^3 (test code = 0.22 10*3/uL 0.03-0.39 711-2) BASO x10^3 (test code <0.03 0.01-0.07 = 704-7) Lab Interpretation Abnormal (test code = 39752-2) [facility] COVID [id number] 02:47:45COVID DMT InterpretationInterpretation/Recommendations: Molecular NAAT Tests for [...] COVID-19 testing the patient has had at [facility], including molecular NAAT testing (more commonly known as PCR testing and Rapid ID Now testing) and antibody testing. It does not take into account any testingthat a patient has had outside of the [facility] medical record. [facility] LABORATORY SERVICESCOVID MqfgsefCYCG-SwF-2 Rapid ID NOW (no units) ? ? Date ? Value ? 11/27/2020 ? Not Detected ? ? ? 11/10/2020 ? Not Detected ? [facility]ORAT[facility] SERVICESUn[facility] AC PANEL 21 + LACTIC [id number] 20:13:40 Test Item Value Reference Range Interpretation Comments PH (test code = 7.32-7.42 2409364496) PCO2 AALIYAH (test code = See_Comment H [Auto mated 0577860209) message] The sy stem which generated this result transmitted reference range : 41 - 51 mmHg. The reference range was not used to interpret this result as normal/abnormal . PO2 AALIYAH (test code = See_Comment HH [Autom ated 8120987220) message] The sy stem which generated this result transmitted reference range : 25 - 40 mmHg. The reference range was not used to interpret this result as normal/abnormal . HCO3 AALIYAH (test code = See_Comment H [Auto mated [id number]) message] The sy stem which generated this result transmitted reference range : 24 - 28 mEq/L. The reference range was not used to interpret this result as normal/abnormal . AC VBE(BEAKER) (test mEq/L code = [id number]) THB AALIYAH (test code = 12.8 g/dL 12.0-16.0 [id number]) %O2HB AALIYAH (test code = 95.5 % 52.0-63.0 H [id number]) %COHB AALIYAH (test code = 0.4 % 0.0-1.5 [id number]) %METHB AALIYAH (test code = 0.1 % 0.4-1.5 L 3921313747) VOL%O2 AALIYAH (test code = 17.2 % 6.0-12.0 H 7918698507) NA (test code = 139 mmol/L 135-145 0630794293) K+ (test code = 3.9 mmol/L 3.5-5.0 4918541647) AC CA IONZ (test code = 4.50 mg/dL 4.50-5.30 2974588731) GLUCOSE (test code = 167 mg/dL 70-110 H 7101850081) LACTIC ACID (test code 2.64 mmol/L 0.50-2.20 H = 2371863453) Lab Interpretation Abnormal (test code = 21845-1) [facility] MSSA Screen by PCR, [id number] 16:25:22 Test Item Value Reference Range Interpretation Comments MSSA Screen by PCR, Nares (test code Negative Negative = 59962-5) MRSA/MSSA Positive? (test code = No No 7588285707) Lab Interpretation (test code = Normal 39538-4) [facility] SpringsLEGIONELLA URINARY ANTIGEN [id number] 10:44:38 Test Item Value Reference Range Interpretation Comments Legionella Urinary Negative Negative Antigen (test code = 6338174034) CHRISTINE (test code = CHRISTINE) Negative for [...] test. Lab Interpretation (test Normal code = 88343-8) [facility] SpringsPNEUMOCOCCAL [id number] 10:44:22 Test Item Value Reference Range Interpretation Comments S. pneumoniae antigen (test code = Negative Negative 0629048669) Lab Interpretation (test code = Normal 39779-6) [facility] SpringsURINALYSIS2021-06-23 10:42:10 Test Item Value Reference Range Interpretation Comments APPEARANCE (test code = Hazy Clear A 9341830002) COLOR (test code = Mary Ann Yellow A 9619773178) PH (test code = 4.8-8.0 5040112577) SP GRAVITY (test code = 1.003-1.030 H 0956659418) GLU U QUAL (test code = Normal Normal 7561836239) BLOOD (test code = Negative Negative Interfere nce from 6748247196) ascorbic acid m ay cause false neg ative results. KETONES (test code = 5 mg/dL Negative A 4628107520) PROTEIN (test code = Negative Negative 2887-8) UROBILIN (test code = Normal Normal 9408073325) BILIRUBIN (test code = Negative Negative 1548219229) NITRITE (test code = Negative Negative 1486143360) LEUK FAITH (test code = Negative Negative 3352122003) RBC/HPF (test code = See_Comment H [Autom ated message] 5081521781) The system Pixia generated this result transmitted ref erence range: 0 - 3 HP F. The reference range was not used to int erpret this result as normal/abnormal . WBC/HPF (test code = See_Comment [Autom ated message] 0175308709) The system Pix[employer] generated this result transmitted ref erence range: 0 - 5 HP F. The reference range was not used to int erpret this result as normal/abnormal . BACTERIA (test code = Few Negative A 3599428688) MUCOUS (test code = Slight Negative LPF A 8645731344) AMORPHOUS (test code = Rare Rare HPF 3115471946) ASCORBIC ACID (test code 40 mg/dL = 6980514691) Lab Interpretation (test Abnormal code = 04836-8) [facility] SpringsXR RIBS 4+ VW [id number] 10:25:19 Left-sided rib fractures with left pleural effusion and left lower lobeatelectasis versus infiltrate. Questionable inferior lateral right rib fractures, suboptimally profiled. Severe osteopenia. Thoracic and lumbar spine vertebral body compression fractures, chronicityuncertain. Severe osteopenia, suspect osteoporosis. EXAM: XR RIBS 4+ VW BILATERAL HISTORY: Rule out possible rib fracture. Patient reports recent trauma to [facility] by slamming into truck door. COMPARISON: None [...] along the inferior and lateral right ribs. [facility], Radiant Results Inft User - 11/28/2020 5:26 AM CDT EXAM:XR RIBS 4+ VW BILATERALHISTORY:Rule out possible rib fracture. Patient reports recent trauma to [facility] by slamming into truck door. COMPARISON:NoneFINDINGS: Imaging [...] compression fractures, chronicityuncertain.Severe osteopenia, suspect osteoporosis. [facility] SpringsBasic Metabolic Panel (NA, K, CL, CO2, Glucose, BUN, Creatinine, CA)2020-11-28 10:13:28 Test Item Value Reference Range Interpretation Comments NA (test code = 141 mmol/L 135-145 2624890951) K (test code = 4.3 mmol/L 3.5-5.0 3995768682) CL (test code = 99 mmol/L 98-108 7975443564) CO2 TOTAL (test code = 36 mmol/L 23-31 H 5153897600) AGAP (test code = 2-16 3340222139) BUN (test code = 35 mg/dL 7-23 H 4126264258) GLUCOSE (test code = 93 mg/dL 70-110 1019464387) CREATININE (test code = 0.38 mg/dL 0.50-1.04 L 4907334432) CALCIUM (test code = 8.3 mg/dL 8.6-10.6 L 4480953935) eGFR (test code = mL/min/1.73m2 5693675314) CHRISTINE (test code = CHRISTINE) Association of [...] tests). Lab Interpretation Abnormal (test code = 12697-1) [facility] SpringsMagnesium [id number] 10:03:09 Test Item Value Reference Range Interpretation Comments MAGNESIUM (test code = 1041069543) 2.4 mg/dL 1.7-2.4 Lab Interpretation (test code = Normal 33267-8) [facility] SpringsHepatic Function Panel (ALB, T.PRO, BILI T, BU/BC, ALT, AST, ALK, PHOS)2020-11-28 10:03:09 Test Item Value Reference Range Interpretation Comments TOTAL BILI (test code = 9337629955) 0.3 mg/dL 0.1-1.1 BILI UNCON (test code = 6518131340) 0.0 mg/dL 0.1-1.1 L BILI CONJ (test code = 6134906779) 0.0 mg/dL 0.0-0.3 T PROTEIN (test code = 2091360227) 5.7 g/dL 6.3-8.2 L ALBUMIN (test code = 1127942169) 2.7 g/dL 3.5-5.0 L ALK PHOS (test code = 5167793647) 119 U/L 34-122 ALTv (test code = 1742-6) 8 U/L 5-35 AST(SGOT) (test code = 5010843532) 21 U/L 13-40 Lab Interpretation (test code = Abnormal 38053-8) [facility] SpringsAC PANEL 21 + LACTIC [id number] 09:39:06 Test Item Value Reference Range Interpretation Comments PH (test code = 7.32-7.42 0051546419) PCO2 AALIYAH (test code = See_Comment H [Auto mated 9812948695) message] The sy stem which generated this result transmitted reference range : 41 - 51 mmHg. The reference range was not used to interpret this result as normal/abnormal . PO2 AALIYAH (test code = See_Comment H [Autom ated 9248815621) message] The sy stem which generated this result transmitted reference range : 25 - 40 mmHg. The reference range was not used to interpret this result as normal/abnormal . HCO3 AALIYAH (test code = See_Comment H [Auto mated 8520778877) message] The sy stem which generated this result transmitted reference range : 24 - 28 mEq/L. The reference range was not used to interpret this result as normal/abnormal . AC VBE(BEAKER) (test mEq/L code = 3893642211) THB AALIYAH (test code = 12.6 g/dL 12.0-16.0 9140819414) %O2HB AALIYAH (test code = 88.7 % 52.0-63.0 H 6299916569) %COHB AALIYAH (test code = 0.8 % 0.0-1.5 0411592602) %METHB AALIYAH (test code = 0.1 % 0.4-1.5 L 4872344015) VOL%O2 AALIYAH (test code = 15.7 % 6.0-12.0 H 0310587356) NA (test code = 142 mmol/L 135-145 9752905830) K+ (test code = 4.3 mmol/L 3.5-5.0 7355682257) AC CA IONZ (test code = 4.80 mg/dL 4.50-5.30 3923818357) GLUCOSE (test code = 92 mg/dL 70-110 3005221157) LACTIC ACID (test code 1.16 mmol/L 0.50-2.20 = 6745741424) Lab Interpretation Abnormal (test code = 78943-2) [facility] with [id number] 09:36:44 Test Item Value Reference Range Interpretation Comments WBC (test code = See_Comment L [Automated 2672-2) message] The sy stem which generated this result transmitted reference range : 4.30 - 11.10 10*3/?L. The reference range was not used to interpret this result as normal/abnormal . RBC (test code = See_Comment [Automated 869-8) message] The sy stem which generated this [...] (test code = 55.5 fL 39.0-49.9 H 23916-6) RDW-CV (test code = 15.8 % 12.0-15.5 H 788-0) PLT (test code = See_Comment [Automated 777-3) message] The sy stem which generated this result transmitted reference range : 166 - 358 10*3/ ?L. The reference r crispin was not used to interpret this result as normal/abnormal . MPV (test code = 9.5 fL 9.5-12.9 49176-2) NRBC/100 WBC (test See_Comment [Automat ed code = 2547443737) message] The system which generated this result transmitted reference range : 0.0 - 10.0 /100 WBCs. The refer ence range was not u sed to interpret th is result as normal/abnormal . NRBC x10^3 (test code <0.01 See_Comment [Auto mated = 4307219014) message] The s ystem which generated this result transmitted reference range : 10*3/?L. The reference range was not used to interpret this result as normal/abnormal . GRAN MAT (NEUT) % 75.1 % (test code = 770-8) IMM GRAN % (test code 0.20 % = 8328791802) LYMPH % (test code = 13.1 % 736-9) MONO % (test code = 11.4 % 5905-5) EOS % (test code = 0.0 % 713-8) BASO % (test code = 0.2 % 706-2) GRAN MAT x10^3(ANC) 3.09 10*3/uL 1.88-7.09 (test code = 3165230315) IMM GRAN x10^3 (test <0.03 0.00-0.06 code = 1863572473) LYMPH x10^3 (test code 0.54 10*3/uL 1.32-3.29 L = 731-0) MONO x10^3 (test code 0.47 10*3/uL 0.33-0.92 = 742-7) EOS x10^3 (test code = <0.03 0.03-0.39 L 711-2) BASO x10^3 (test code <0.03 0.01-0.07 = 704-7) Lab Interpretation Abnormal (test code = 91560-2) [facility]AC PANEL 20 + LACTIC [id number] 03:48:20 Test Item Value Reference Range Interpretation Comments PH (test code = 2) 7.35-7.45 L PCO2 (test code = See_Comment H [Automate d 4666388626) message] The sy stem which generated this result transmitted reference range : 35 - 45 mmHg. The reference range was not used to interpret this result as normal/abnormal . PO2 (test code = See_Comment L [Automated 7349746287) message] The sy stem which generated this result transmitted reference range : 80 - 100 mmHg. The reference range was not used to interpret this result as normal/abnormal . HCO3 (test code = See_Comment H [Automate d 3246009154) message] The sy stem which generated this result transmitted reference range : 22 - 26 mEq/L. The reference range was not used to interpret this result as normal/abnormal . BE (test code = See_Comment H [Automated 3516198103) message] The sy stem which generated this result transmitted reference range : -3.0 - 3.0 mEq/ L. The reference r crispin was not used to interpret this result as normal/abnormal . THB (test code = 13.6 g/dL 12.0-16.0 8381032260) %O2HB (test code = 94.4 % 94.0-99.0 6322160366) %COHB ART (test code = 1.2 % 0.0-1.5 3641544825) %METHB ART (test code = 0.0 % 0.4-1.5 L 3710654495) VOL%O2 ART (test code = 18.1 % 15.0-23.0 7092964159) NA (test code = 143 mmol/L 135-145 6118533967) K+ (test code = 4.3 mmol/L 3.5-5.0 0979465241) AC CA IONZ (test code = 4.80 mg/dL 4.50-5.30 3368939044) GLUCOSE (test code = 120 mg/dL 70-110 H 9447999401) LACTIC ACID (test code 0.99 mmol/L 0.50-2.20 = 4686510105) Lab Interpretation Abnormal (test code = 08570-7) [facility] VENOUS BLOOD [id number] 01:07:34 Test Item Value Reference Range Interpretation Comments PH (test code = 7.32-7.42 L 9275415620) PCO2 AALIYAH (test code = See_Comment H [Auto mated message] 1455435309) The system Pixia generated this result transmitted ref erence range: 41 - 51 mmHg. The reference r crispin was not used to interpret this result as normal/abnor mal. PO2 AALIYAH (test code = See_Comment H [Autom ated message] 6311451542) The system Pixia generated this result transmitted ref erence range: 25 - 40 mmHg. The reference r crispin was not used to interpret this result as normal/abnor mal. HCO3 AALIYAH (test code = See_Comment H [Auto mated message] 3901801125) The system Pixia generated this result transmitted ref erence range: 24 - 28 mEq/L. The reference r crispin was not used to interpret this result as normal/abnor mal. AC VBE(BEAKER) (test mEq/L code = 8097367263) Lab Interpretation (test Abnormal code = 33083-4) [facility] SpringsPROCALCITONIN2021-06-23 00:57:28 Test Item Value Reference Interpretation Comments Range Procalcitonin (test <0.02 See_Comment [Automa cristhian code = 0533789692) message] The system which generated this result [...] lung abscess/empyema. For further information please refer to:[email or web address] Lab Interpretation Normal (test code = 64927-6) [facility] SpringsTroponin [id number] 23:45:01 Test Item Value Reference Range Interpretation Comments TROPONIN I (test 0.029 ng/mL See_Comment Hemolyzed code = 3098332996) specimen [Automated message] The system which generated [...] ? Lab Interpretation Normal (test code = 53617-7) [facility] SpringsN-Terminal [id number] 23:12:52 Test Item Value Reference Range Interpretation Comments NT-proBNP (test code 1880 pg/mL See_Comment H [Autom ated = 3095928930) message] The system which generated this result transmitted reference range : <=125. The reference range was not used to interpret this result as normal/abnormal . CHRISTINE (test code = CHRISTINE) Biotin has been reported to cause a negative bias, interpret results relative to patient's use of biotin. Lab Interpretation Abnormal (test code = 01939-1) [facility] SpringsAcute Care Arterial Blood Gas.2020-11-27 23:07:45 Test Item Value Reference Range Interpretation Comments PH (test code = 2) 7.35-7.45 L PCO2 (test code = See_Comment H [Automate d message] 0864946698) The system Pixia generated this result transmitted ref erence range: 35 - 45 mmHg. The reference r crispin was not used to interpret this result as normal/abnor mal. PO2 (test code = See_Comment H [Automated message] 6880488725) The system Pixia generated this result transmitted ref erence range: 80 - 100 mmHg. The reference r crispin was not used to interpret this result as normal/abnor mal. HCO3 (test code = See_Comment H [Automate d message] 2707357799) The system Pixia generated this result transmitted ref erence range: 22 - 26 mEq/L. The reference r crispin was not used to interpret this result as normal/abnor mal. BE (test code = See_Comment H [Automated message] 1480478530) The system Pixia generated this result transmitted ref erence range: -3.0 - 3 .0 mEq/L. The refe rence range was not u sed to interpret this result as normal/abnor mal. Lab Interpretation (test Abnormal code = 14316-4) [facility] SpringsGAMMA [id number] 23:03:29 Test Item Value Reference Range Interpretation Comments GGT (test code = 0876298321) 16 U/L 13-40 Lab Interpretation (test code = Normal 05108-3) [facility] SpringsTROPONIN [id number] 16:26:41 Test Item Value Reference Range Interpretation Comments TROPONIN I (test 0.033 ng/mL See_Comment [Automated code = 5540102108) message] The system which generated this result [...] ? Lab Interpretation Normal (test code = 71629-2) [facility] SpringsXR CHEST 1 [id number] 16:26:25HISTORY: SOB. TECHNIQUE: Portable AP erect view [...] of developing pneumonia inretrocardiac left lower lung.[facility] SpringsCOMP. METABOLIC PANEL (50233)2020-11-27 16:21:42 Test Item Value Reference Range Interpretation Comments NA (test code = 141 mmol/L 135-145 6014479483) K (test code = 3.7 mmol/L 3.5-5.0 5278150920) CL (test code = 97 mmol/L 98-108 L 8044923496) CO2 TOTAL (test code = 38 mmol/L 23-31 H 3340271310) AGAP (test code = 2-16 7555382857) BUN (test code = 36 mg/dL 7-23 H 3744740982) GLUCOSE (test code = 128 mg/dL 70-110 H 7260793819) CREATININE (test code = 0.58 mg/dL 0.50-1.04 2390090915) TOTAL BILI (test code = 0.3 mg/dL 0.1-1.6 9236425437) CALCIUM (test code = 9.5 mg/dL 8.6-10.6 3686861668) T PROTEIN (test code = 7.0 g/dL 6.3-8.2 6589762585) ALBUMIN (test code = 3.4 g/dL 3.5-5.0 L 0235904870) ALK PHOS (test code = 168 U/L 34-122 H 1515130596) ALTv (test code = 10 U/L 5-35 1742-6) AST(SGOT) (test code = 23 U/L 13-40 4709051577) eGFR (test code = mL/min/1.73m2 0903318279) CHRISTINE (test code = CHRISTINE) Association of [...] tests). Lab Interpretation Abnormal (test code = 45654-9) [facility] SpringsCOVID-19 (ID NOW RAPID TESTING)2020-11-27 16:15:24 Test Item Value Reference Range Interpretation Comments SARS-CoV-2 Rapid ID NOW Not Detected Not Detected (test code = 44728-2) CHRISTINE (test code = CHRISTINE) ID NOW COVID-19 Assay is an isothermal nucleic acid amplification test intended for the qualitative detection of nucleic acid from SARS-CoV-2 viral RNA in nasopharyngeal (DRESSED POULTRY GRADER) specimens. It is used under Emergency Use [...] indicated. Lab Interpretation Normal (test code = 12679-6) [facility] WITH [id number] 16:02:41 Test Item Value Reference Range Interpretation Comments WBC (test code = See_Comment [Automated 4190-2) message] The sy stem which generated this result transmitted reference range : 4.30 - 11.10 10*3/?L. The reference range was not used to interpret this result as normal/abnormal . RBC (test code = See_Comment [Automated 479-8) message] The sy stem which generated this [...] (test code = 55.8 fL 39.0-49.9 H 88265-1) RDW-CV (test code = 16.0 % 12.0-15.5 H 788-0) PLT (test code = See_Comment [Automated 777-3) message] The sy stem which generated this result transmitted reference range : 166 - 358 10*3/ ?L. The reference r crispin was not used to interpret this result as normal/abnormal . MPV (test code = 9.8 fL 9.5-12.9 24043-3) NRBC/100 WBC (test See_Comment [Automat ed code = 3709093007) message] The system which generated this result transmitted reference range : 0.0 - 10.0 /100 WBCs. The refer ence range was not u sed to interpret th is result as normal/abnormal . NRBC x10^3 (test code <0.01 See_Comment [Auto mated = 4379979957) message] The s ystem which generated this result transmitted reference range : 10*3/?L. The reference range was not used to interpret this result as normal/abnormal . GRAN MAT (NEUT) % 81.4 % (test code = 770-8) IMM GRAN % (test code 0.50 % = 9932595671) LYMPH % (test code = 11.1 % 736-9) MONO % (test code = 5.9 % 5905-5) EOS % (test code = 0.3 % 713-8) BASO % (test code = 0.8 % 706-2) GRAN MAT x10^3(ANC) 6.04 10*3/uL 1.88-7.09 (test code = 1341538400) IMM GRAN x10^3 (test 0.04 10*3/uL 0.00-0.06 code = 4207144362) LYMPH x10^3 (test code 0.82 10*3/uL 1.32-3.29 L = 731-0) MONO x10^3 (test code 0.44 10*3/uL 0.33-0.92 = 742-7) EOS x10^3 (test code = <0.03 0.03-0.39 L 711-2) BASO x10^3 (test code 0.06 10*3/uL 0.01-0.07 = 704-7) Lab Interpretation Abnormal (test code = 13681-1) [facility]AC PANEL 21 + LACTIC [id number] 15:52:05 Test Item Value Reference Range Interpretation Comments PH (test code = 7.32-7.42 9676041255) PCO2 AALIYAH (test code = See_Comment H [Auto mated 2806702571) message] The sy stem which generated this result transmitted reference range : 41 - 51 mmHg. The reference range was not used to interpret this result as normal/abnormal . PO2 AALIYAH (test code = See_Comment [Autom ated 6347148033) message] The sy stem which generated this result transmitted reference range : 25 - 40 mmHg. The reference range was not used to interpret this result as normal/abnormal . HCO3 AALIYAH (test code = See_Comment H [Auto mated 1984035007) message] The sy stem which generated this result transmitted reference range : 24 - 28 mEq/L. The reference range was not used to interpret this result as normal/abnormal . AC VBE(BEAKER) (test mEq/L code = 4987755258) THB AALIYAH (test code = 13.9 g/dL 12.0-16.0 6838865366) %O2HB AALIYAH (test code = 61.0 % 52.0-63.0 3692642991) %COHB AALIYAH (test code = 3.2 % 0.0-1.5 H 6460073051) %METHB AALIYAH (test code = 0.3 % 0.4-1.5 L 8991191634) VOL%O2 AALIYAH (test code = 11.9 % 6.0-12.0 7890184344) NA (test code = 141 mmol/L 135-145 7527735360) K+ (test code = 4.3 mmol/L 3.5-5.0 5167262414) AC CA IONZ (test code = 4.50 mg/dL 4.50-5.30 4986050635) GLUCOSE (test code = 133 mg/dL 70-110 H 2606551937) LACTIC ACID (test code 1.92 mmol/L 0.50-2.20 = 0888845072) Lab Interpretation Abnormal (test code = 78305-6) [facility] SpringsN-TERMINAL [id number] 21:02:27 Test Item Value Reference Range Interpretation Comments NT-proBNP (test code 607 pg/mL See_Comment H [Autom ated = 1902310154) message] The system which generated this result transmitted reference range : <=125. The reference range was not used to interpret this result as normal/abnormal . CHRISTINE (test code = CHRISTINE) Biotin has been reported to cause a negative bias, interpret results relative to patient's use of biotin. Lab Interpretation Abnormal (test code = 57919-3) [facility] SpringsC-REACTIVE [id number] 18:59:27 Test Item Value Reference Range Interpretation Comments CRP (test code = 9067017719) 6.5 mg/dL <0.8 H Lab Interpretation (test code = Abnormal 13072-8) [facility] SpringsBLOOD CULTURE [id number] 15:59:00 Test Item Value Reference Range Interpretation Comments Blood Culture-Aerobic No organisms No growth Previo us (test code = 56516-7) isolated prelim inary verified result was Culture In Progress on 11/10/2020 at 195 7 CDT Blood Culture positive. No growth AA Previous Culture-Anaerobic See Blood Culture preli minary (test code = 92438-3) Workup for verifi ed result additional was Culture In information. Progress on 11/10/2020 at 070 1 CDT Lab Interpretation Abnormal (test code = 34335-1) [facility] SpringsBLOOD CULTURE [id number] 15:58:24 Test Item Value Reference Range Interpretation Comments Blood Culture Shewanella algae [place] mor phologically Workup (test consistent with code = 600-7) organism above For susceptibility results, refer to culture # - [id number] Gram stain Isolated from (test code = anaerobic bottle 664-3) Gram negative bacilli [facility] SpringsBLOOD CULTURE [id number] 15:56:17 Test Item Value Reference Range Interpretation Comments Blood Culture-Aerobic Culture positive. No growth AA P revious (test code = 06405-2) See Blood Culture p reliminary Workup for verified result additional was Culture In information. Progress on 11/10/2020 at 070 1 CDT Blood No organisms No growth Previous Culture-Anaerobic isolated preliminar y (test code = 54712-9) verifi ed result was Culture In Progress on 11/10/2020 at 200 0 CDT Lab Interpretation Abnormal (test code = 63080-0) [facility] SpringsPROCALCITONIN2021-06-08 06:21:11 Test Item Value Reference Range Interpretation Comments Procalcitonin (test 0.10 ng/mL <0.07 H code = 2859091381) CHRISTINE (test code = CHRISTINE) INTERPRETATION OF [...] lung abscess/empyema. For further information please refer to:[email or web address] Lab Interpretation Abnormal (test code = 41260-0) [facility] SpringsLAB ONLY COVID [id number] 17:28:08COVID DMT InterpretationInterpretation/Recommendations: Molecular NAAT Tests for [...] COVID-19 testing the patient has had at [facility], including molecular NAAT testing (more commonly known as PCR testing and Rapid ID Now testing) and antibody testing. It does not take into account any testing that a patient has had outside of the [facility] medical record. [facility] LABORATORY SERVICESCOVID ResultsSA RS-CoV-2 Rapid ID NOW (no units) ? ? Date ? Value ? 11/10/2020 ? Not Detected ? [facility] LABORATORY SERVICES [facility] [id number] 15:25:49 Test Item Value Reference Range Interpretation Comments FREE T4 (test code = See_Comment [Autom ated message] 6440668111) The system [employer] generated this result transmitted ref erence range: 0.78 - 2 .20 ng/dL:. The ref erence range was not u sed to interpret this result as normal/abnor mal. Lab Interpretation (test Normal code = 20949-9) [facility] [id number] 15:25:34 Test Item Value Reference Range Interpretation Comments FREE T3 (test code = 8327766143) 2.05 pg/mL 2.77-5.27 L Lab Interpretation (test code = Abnormal 37546-2) [facility] 1 [id number] 14:46:22 Chronic emphysematous changes with possible infectious/inflammatoryexacerbation [...] above report. [facility] (NA, K, CL, CO2, GLUCOSE, BUN, CREATININE, CA)2020-11-12 14:40:25 Test Item Value Reference Range Interpretation Comments NA (test code = 136 mmol/L 135-145 7659990708) K (test code = 4.1 mmol/L 3.5-5.0 3449674108) CL (test code = 100 mmol/L 98-108 0774879331) CO2 TOTAL (test code = 32 mmol/L 23-31 H 1184278659) AGAP (test code = 2-16 4201333917) BUN (test code = 22 mg/dL 7-23 8533791315) GLUCOSE (test code = 90 mg/dL 70-110 9555072523) CREATININE (test code = 0.45 mg/dL 0.50-1.04 L 0682596152) CALCIUM (test code = 9.4 mg/dL 8.6-10.6 0149973826) eGFR (test code = mL/min/1.73m2 0788542546) CHRISTINE (test code = CHRISTINE) Association of [...] tests). Lab Interpretation Abnormal (test code = 91565-1) [facility] with [id number] 14:31:27 Test Item Value Reference Range Interpretation [...] (test code = 51.8 fL 39.0-49.9 H 50763-2) RDW-CV (test code = 15.5 % 12.0-15.5 788-0) PLT (test code = See_Comment [Automated 777-3) message] The sy stem which generated this result transmitted reference range : 166 - 358 10*3/ ?L. The reference r crispin was not used to interpret this result as normal/abnormal . MPV (test code = 9.5 fL 9.5-12.9 98069-9) NRBC/100 WBC (test See_Comment [Automat ed code = 3097620757) message] The system which generated this result transmitted reference range : 0.0 - 10.0 /100 WBCs. The refer ence range was not u sed to interpret th is result as normal/abnormal . NRBC x10^3 (test code <0.01 See_Comment [Auto mated = 3278920206) message] The s ystem which generated this result transmitted reference range : 10*3/?L. The reference range was not used to interpret this result as normal/abnormal . GRAN MAT (NEUT) % 73.8 % (test code = 770-8) IMM GRAN % (test code 0.50 % = 6290950489) LYMPH % (test code = 11.0 % 736-9) MONO % (test code = 11.9 % 5905-5) EOS % (test code = 2.4 % 713-8) BASO % (test code = 0.4 % 706-2) GRAN MAT x10^3(ANC) 5.89 10*3/uL 1.88-7.09 (test code = 3366195317) IMM GRAN x10^3 (test 0.04 10*3/uL 0.00-0.06 code = 3363864970) LYMPH x10^3 (test code 0.88 10*3/uL 1.32-3.29 L = 731-0) MONO x10^3 (test code 0.95 10*3/uL 0.33-0.92 H = 742-7) EOS x10^3 (test code = 0.19 10*3/uL 0.03-0.39 711-2) BASO x10^3 (test code 0.03 10*3/uL 0.01-0.07 = 704-7) Lab Interpretation Abnormal (test code = 81325-8) [facility]YROID STIMULATING [id number] 00:51:55 Test Item Value Reference Range Interpretation Comments TSH (test code = See_Comment H [Automated message] 5562532535) The system [employer] generated this result transmitted ref erence range: 0.45 - 4 .70 mIU/L. The refe rence range was not u sed to interpret this result as normal/abnor mal. Lab Interpretation (test Abnormal code = 66489-3) [facility]com[facility] Trough Level - Draw no more than 60 minutes before the 1830 dose.2020-11-12 00:24:13 Test Item Value Reference Range Interpretation Comments VANCO TROUGH (test code 6.7 ug/mL 10.0-20.0 L = 4317752277) CHRISTINE (test code = CHRISTINE) Toxic Range: ?>20 ug/mL 15-20 ug/mL is recommended for severe infection or when Vancomycin MARCELLA is greater than or equal to 2. Lab Interpretation (test Abnormal code = 97824-9) [facility] SpringsGRAM NEGATIVE BLOOD PATHOGENS DNA [id number] 09:16:52 Test Item Value Reference Range Interpretation Comments Blood Pathogens by No organisms included in DNA Comment (test the Blood DNA Probe test code = 84679-6) panel were detected. Further identification workup to be performed by culture testing methods. CHRISTINE (test code = See blood culture result CHRISTINE) for additional information. ?Testing included eight identification and six resistance marker targets. [facility] SpringsCT THORAX W [id number] 18:24:48 Impression: 1. No pulmonary mass or [...] liver function tests is suggested. RL: 2824AFC: [id number] End of Report Exam: CT Chest Without [...] with liver function tests is suggested.RL: 2824AFC: 26909Pmz of Report [facility] SpringsURINALYSIS2021-06-05 09:41:46 Test Item Value Reference Range Interpretation Comments APPEARANCE (test code = Clear Clear 9932755023) COLOR (test code = Mary Ann Yellow A 4716900318) PH (test code = 4.8-8.0 3764936943) SP GRAVITY (test code = 1.003-1.030 3636165166) GLU U QUAL (test code = Normal Normal 1627564997) BLOOD (test code = Negative Negative 2605233410) KETONES (test code = Negative Negative 1078416751) PROTEIN (test code = 100 mg/dL Negative A 2887-8) UROBILIN (test code = 4.0 mg/dL Normal A 5476973850) BILIRUBIN (test code = 2 mg/dL Negative A 5158062296) NITRITE (test code = Negative Negative 1172258763) LEUK FAITH (test code = Negative Negative 0711998627) RBC/HPF (test code = See_Comment H [Autom ated message] 9240210913) The system [employer] generated this result transmit cristhian reference range : 0 - 3 HPF. The refe rence range was not u sed to interpret th is result as normal/abnormal . WBC/HPF (test code = See_Comment [Autom ated message] 8215211037) The system [employer] generated this result transmit cristhian reference range : 0 - 5 HPF. The refe rence range was not u sed to interpret th is result as normal/abnormal . BACTERIA (test code = Few Negative A 7823420810) MUCOUS (test code = Slight Negative LPF A 1522534327) SQ EPITH (test code = HPF 9358242334) HYAL CAST (test code = See_Comment H [Aut omated message] 1495022216) The system [employer] generated this result transmit cristhian reference range : <=2 LPF. The refere nce range was not u sed to interpret th is result as normal/abnormal . Ictotest (test code = Negative 9428941331) Lab Interpretation (test Abnormal code = 37242-3) [facility]OVID-19 (ID NOW RAPID TESTING)2020-11-10 09:17:13 Test Item Value Reference Range Interpretation Comments SARS-CoV-2 Rapid ID NOW Not Detected Not Detected (test code = 23272-9) CHRISTINE (test code = CHRISTINE) ID NOW COVID-19 Assay is an isothermal nucleic acid amplification test intended for the qualitative detection of nucleic acid from SARS-CoV-2 viral RNA in nasopharyngeal (DRESSED POULTRY GRADER) specimens. It is used under Emergency Use [...] indicated. Lab Interpretation Normal (test code = 17830-3) [facility]. METABOLIC PANEL (60640)2020-11-10 09:13:10 Test Item Value Reference Range Interpretation Comments NA (test code = 137 mmol/L 135-145 3640725402) K (test code = 4.2 mmol/L 3.5-5.0 3334587786) CL (test code = 96 mmol/L 98-108 L 3678613759) CO2 TOTAL (test code = 34 mmol/L 23-31 H 3716081238) AGAP (test code = 2-16 6742364004) BUN (test code = 35 mg/dL 7-23 H 2552391106) GLUCOSE (test code = 131 mg/dL 70-110 H 1065106852) CREATININE (test code = 0.64 mg/dL 0.50-1.04 0119689659) TOTAL BILI (test code = 0.7 mg/dL 0.1-1.9 5083928311) CALCIUM (test code = 9.7 mg/dL 8.6-10.6 0984751452) T PROTEIN (test code = 7.7 g/dL 6.3-8.2 7514458259) ALBUMIN (test code = 3.9 g/dL 3.5-5.0 7693514825) ALK PHOS (test code = 202 U/L 34-122 H 4176731683) ALTv (test code = 13 U/L 5-35 1742-6) AST(SGOT) (test code = 27 U/L 13-40 7021531360) eGFR (test code = mL/min/1.73m2 5927912065) CHRISTINE (test code = CHRISTINE) Association of [...] tests). Lab Interpretation Abnormal (test code = 07713-8) [facility] WITH [id number] 09:01:30 Test Item Value Reference Range Interpretation Comments WBC (test code = See_Comment H [Automated 7598-2) message] The system which generated this result transmit cristhian reference range : 4.30 - 11.10 10*3/?L. The reference range was not used to interpret this result as normal/abnormal . RBC (test code = See_Comment [Automated 274-8) message] The system which generated this result [...] (test code = 52.1 fL 39.0-49.9 H 42129-3) RDW-CV (test code = 15.7 % 12.0-15.5 H 788-0) PLT (test code = See_Comment [Automated 777-3) message] The system which generated this result transmit cristhian reference range : 166 - 358 10*3/ ?L. The reference range was not u sed to interpret th is result as normal/abnormal . MPV (test code = 9.7 fL 9.5-12.9 00224-7) NRBC/100 WBC (test See_Comment [Automat ed code = 9408959483) message] The system which generated this result transmit cristhian reference range : 0.0 - 10.0 /100 WBCs. The reference range was not used to interpret this result as normal/abnormal . NRBC x10^3 (test code <0.01 See_Comment [Auto mated = 3549786762) message] The system which generated this result transmit cristhian reference range : 10*3/?L. The reference range was not used to interpret this result as normal/abnormal . GRAN MAT (NEUT) % 88.5 % (test code = 770-8) IMM GRAN % (test code 0.70 % = 4482530419) LYMPH % (test code = 3.1 % 736-9) MONO % (test code = 7.5 % 5905-5) EOS % (test code = 0.0 % 713-8) BASO % (test code = 0.2 % 706-2) GRAN MAT x10^3(ANC) 14.39 10*3/uL 1.88-7.09 H (test code = 7670881994) IMM GRAN x10^3 (test 0.12 10*3/uL 0.00-0.06 H code = 6659998279) LYMPH x10^3 (test code 0.50 10*3/uL 1.32-3.29 L = 731-0) MONO x10^3 (test code 1.22 10*3/uL 0.33-0.92 H = 742-7) EOS x10^3 (test code = <0.03 0.03-0.39 L 711-2) BASO x10^3 (test code 0.04 10*3/uL 0.01-0.07 = 704-7) Lab Interpretation Abnormal (test code = 23391-2) [facility] SpringsLactic Acid Whole [id number] 08:58:13 Test Item Value Reference Range Interpretation Comments LACTIC ACID (test code = 1.62 mmol/L 0.50-2.20 8947408820) Lab Interpretation (test code = Normal 35024-3) [facility]
[2023-04-28] MEDS ORDERED: FENTANYL CITR 100 MCG/2 ML ONE ×2 (12:26→12:52)
[2023-04-28 12:35] LABS: Absolute Lymphocytes (CBC) 0.8 K/uL (0.7-4.9); Hematocrit 32.4 % (36.0-45.0); Lymphocytes % 9.3 % (15.3-44.8); MCV 86.8 fL (80-100); MPV 7.2 fL (7.6-11.3); Platelets 298 thou/uL (152-406); RBC Red Blood Cell Count 3.73 M/uL (3.86-4.86)
[2023-04-28 12:57] LABS: AST/SGOT 16 U/L (15-37); Albumin 2.4 g/dL (3.4-5.0); Alkaline Phosphatase 92 U/L (45-117); BUN Blood Urea Nitrogen 34 mg/dL (7-18); Bicarbonate 31 mEq/L (21-32); Bilirubin Total 0.2 mg/dL (0.2-1.0); Glomerular Filtration Rate 71 ml/min (=/>90); Glucose Level 85 mg/dL (74-106); Potassium 4.8 mEq/L (3.5-5.1); Protein, Total 6.6 g/dL (6.4-8.2); Sodium Level 135 mEq/L (136-145)
[2023-04-28 12:58] LABS: ALT/SGPT < 10 U/L (13-56)
--- NOTE | 2023-04-28 14:18 | EDPHYS ---
Physician Documentation [facility] Name: Elena Bruno Age: 73 yrs Sex: Female : 1950 Arrival Date: 04/28/2023 Time: 11:23 Bed 14 Private MD: ED Physician Sarath Chairez HPI: 04/28 12:02 This 73 yrs old Female presents to ER via Unassigned with complaints of Sent ec2 by Dr Christie. 12:02 Patient arrives today due to concern for syncopal episode x 2. Patient was having her ec2 bilateral lower extremity wounds attended to by the wound clinic and subsequently she had a syncopal episode, is a reportedly happened twice. This is also happened in the past with wound cleaning and pain. No reported head injury or trauma, denies any chest pain or shortness of breath. Denies any other concerns.. Historical: - Allergies: 12:22 No Known Allergies; me1 - PMHx: 12:22 Chronic obstructive lung disease; Hypothyroidism; Hypertensive disorder; me1 - PSHx: 12:22 Appendectomy; Total abdominal hysterectomy; me1 - Immunization history:: Adult Immunizations up to date. - Social history:: Smoking status: . ROS: 12:02 Constitutional: as per hpi ec2 Exam: 12:02 Constitutional: GEN: NAD Head: atraumatic Eyes: EOMI Ears: External ears are ec2 normal. CV: regular rate LUNGS: no respiratory distress ABD: non-distended SKIN: Chronic healing wounds in the bilateral feet, on the dorsum of the feet MSK: no evidence of trauma NEURO: moves all extremities equally Vital Signs: 11:40 BP 140 / 90; Pulse 80; Resp 18; Temp 97.4(O); Pulse Ox 98% on R/A; Weight 47.17 kg; nj1 Height 5 ft. 8 in. ; Pain 10/10; 12:00 BP 147 / 84; Pulse 81; Resp 20; Pulse Ox 100% on 2 lpm NC; me1 12:15 BP 148 / 87; Pulse 83; Resp 20; Pulse Ox 98% on 2 lpm NC; me1 12:46 BP 154 / 90; Pulse 83; Resp 20; Pulse Ox 100% on 2 lpm NC; me1 13:15 BP 134 / 105; Pulse 84; Resp 20; Pulse Ox 100% on 2 lpm NC; me1 13:45 BP 127 / 91; Pulse 87; Resp 20; Pulse Ox 98% on 2 lpm NC; me1 14:10 BP 129 / 82; Pulse 91; Resp 20; Pulse Ox 100% on 2 lpm NC; me1 11:40 Body Mass Index 15.81 (47.17 kg, 172.72 cm) nj1 11:40 Pain Scale: Adult nj1 MDM: 11:43 Patient medically screened. ec2 12:02 ED course: Patient arrives today for evaluation of syncopal episode x 2. Examination ec2 remarkable for well-appearing nontoxic and appears was otherwise in no acute distress with bilateral lower extremity wounds that are chronic per the family. Will obtain lab work, EKG, urine studies for further assessment of the patient's complaint. Currently considering process such as pain reaction causing syncope, anemia, electrolyte disturbances, arrhythmia. EKG independently reviewed and interpreted by me, shows normal sinus rhythm, rate of 82, no acute ST segment elevations, nonconcerning intervals. . 12:19 Data reviewed:. ED course: I discussed the case with Dr. Christie, does not require ec2 admission for wound management and can follow-up outpatient.. 13:00 ED course: CBC is reassuring. Metabolic profile with no significant electrolyte ec2 disturbance, some diminished renal function with a GFR 71. . 14:17 ED course: On reassessment patient is well-appearing and in no acute distress, is awake ec2 and alert and appears to be at her functional baseline status per the family ember in the room. Will discharge home and have her follow-up with her primary care doctor as well as the wound care clinic as scheduled. Return precautions given.. 04/28 11:51 Order name: CBC with Diff; Complete Time: 13:00 ec2 04/28 11:51 Order name: CMP; Complete Time: 13:00 ec2 04/28 11:51 Order name: EKG; Complete Time: 11:52 ec2 04/28 11:51 Order name: EKG - Nurse/Tech; Complete Time: 14:21 ec2 Administered Medications: 12:17 Drug: fentaNYL (PF) IVP 25 mcg IVP once Route: IVP; Site: right antecubital; [facility] 14:14 Follow up: Response: No adverse reaction; Pain is unchanged, physician notified me1 12:43 Drug: fentaNYL (PF) IVP 100 mcg IVP once Route: IVP; Site: right antecubital; me1 14:15 Follow up: Response: No adverse reaction; Pain is decreased; pain relief for 15 minutes.me1 Disposition Summary: 04/28/23 14:18 Discharge Ordered Notes: Location: Home ec2 Condition: Stable ec2 Diagnosis - Syncope ec2 - Pain in left foot ec2 - Pain in right foot ec2 Followup: ec2 - With: Private Physician - When: - Reason: Continuance of care Discharge Instructions: - Discharge Summary Sheet ec2 - Syncope, Pfig-np-Daju ec2 Forms: - Medication Reconciliation Form ec2 - Thank You Letter ec2 - Antibiotic Education ec2 - Prescription Opioid Use ec2 - Patient Portal Instructions ec2 - Leadership Thank You Letter ec2 Signatures: Dispatcher [employer] Nita Kirkpatrick RN RN nj1 Lucille Howe RN RN me1 Sarath Chairez MD MD ec2 Corrections: (The following items were deleted from the chart) 12:56 12:22 Social history: Smoking status: ia1 nj1
--- NOTE | 2023-04-28 14:18 | ER ---
Nurse's Notes [facility] Name: Elena Bruno Age: 73 yrs Sex: Female : 1950 Arrival Date: 04/28/2023 Time: 11:23 Bed 14 Private MD: Diagnosis: Syncope;Pain in left foot;Pain in right foot Presentation: 04/28 11:40 Chief complaint: Patient states: Sent by Dr Christie. Was at wound clinic getting wound nj1 care on feet but the pain was so severe that she was sent over. 11:40 Coronavirus screen: Vaccine status: Patient reports being unvaccinated. Ebola Screen: nj1 Patient denies travel to an Ebola-affected area in the 21 days before illness onset. Initial Sepsis Screen: Does the patient meet any 2 criteria? No. Patient's initial sepsis screen is negative. 11:40 Method Of Arrival: Wheelchair [facility] 11:40 Initial Sepsis Screen: Does the patient have a suspected source of infection? No. nj1 Patient's initial sepsis screen is negative. Risk Assessment: Do you want to hurt yourself or someone else? Patient reports no desire to harm self or others. 11:40 Acuity: FABBY 3 nj 11:40 Onset of symptoms was April 28, 2023. nj1 Historical: - Allergies: 12:22 No Known Allergies; me1 - PMHx: 12:22 Chronic obstructive lung disease; Hypothyroidism; Hypertensive disorder; me1 - PSHx: 12:22 Appendectomy; Total abdominal hysterectomy; me1 - Immunization history:: Adult Immunizations up to date. - Social history:: Smoking status: . Screenin:22 [facility] ED Fall Risk Assessment (Adult) History of falling in the last 3 months, me1 including since admission No falls in past 3 months (0 pts) Confusion or Disorientation No (0 pts) Intoxicated or Sedated No (0 pts) Impaired Gait No (0 pts) Mobility Assist Device Used No (0 pt) Altered Elimination No (0 pt) Score/Fall Risk Level 0 - 2 = Low Risk Maintained a safe environment, Provided non-skid footwear, Hourly rounding (assess needs \T\ fall precautionary measures) done. 14:32 Abuse screen: Denies threats or abuse. Nutritional screening: No deficits noted. me1 Tuberculosis screening: No symptoms or risk factors identified. Assessment: 12:19 General: Appears uncomfortable, slender, well groomed, well developed, Behavior is me1 cooperative, appropriate for age, anxious, restless, Reports Sent from Dr Christie office- patient passed out multiple times during wound care on chronic foot wounds. Pain: Complains of pain in right foot and left foot Pain does not radiate. Pain currently is 10 out of 10 on a pain scale. Quality of pain is described as sharp, throbbing, Pain began unknown when pain began. Chronic foot wounds. Is continuous. Neuro: Level of Consciousness is awake, alert, obeys commands, Oriented to person, place, time, situation, Appropriate for age. Cardiovascular: Capillary refill < 3 seconds Patient's skin is warm and dry. Respiratory: Airway is patent Respiratory effort is even, unlabored, Respiratory pattern is regular, symmetrical. Derm: Wound noted right foot and left foot. Vital Signs: 11:40 BP 140 / 90; Pulse 80; Resp 18; Temp 97.4(O); Pulse Ox 98% on R/A; Weight 47.17 kg; nj1 Height 5 ft. 8 in. ; Pain 10/10; 12:00 BP 147 / 84; Pulse 81; Resp 20; Pulse Ox 100% on 2 lpm NC; me1 12:15 BP 148 / 87; Pulse 83; Resp 20; Pulse Ox 98% on 2 lpm NC; me1 12:46 BP 154 / 90; Pulse 83; Resp 20; Pulse Ox 100% on 2 lpm NC; me1 13:15 BP 134 / 105; Pulse 84; Resp 20; Pulse Ox 100% on 2 lpm NC; me1 13:45 BP 127 / 91; Pulse 87; Resp 20; Pulse Ox 98% on 2 lpm NC; me1 14:10 BP 129 / 82; Pulse 91; Resp 20; Pulse Ox 100% on 2 lpm NC; me1 11:40 Body Mass Index 15.81 (47.17 kg, 172.72 cm) nj1 11:40 Pain Scale: Adult [facility] ED Course: 11:26 Patient arrived in ED. im 11:27 Sarath Chairez MD is Attending Physician. ec2 11:40 Arm band placed on. nj1 11:48 Lucille Howe RN is Primary Nurse. me1 12:17 Inserted saline lock: 22 gauge in right antecubital area, using aseptic technique. me1 12:18 CMP Sent. me1 12:18 CBC with Diff Sent. me1 12:22 No provider procedures requiring assistance completed. me1 12:22 Patient has correct armband on for positive identification. Bed in low position. Call me1 light in reach. Side rails up X 1. Provided Education on: POC. Verbalized understanding. . 12:55 Triage completed. nj1 14:33 IV discontinued, intact, bleeding controlled, No redness/swelling at site. Pressure me1 dressing applied. Administered Medications: 12:17 Drug: fentaNYL (PF) IVP 25 mcg IVP once Route: IVP; Site: right antecubital; me1 14:14 Follow up: Response: No adverse reaction; Pain is unchanged, physician notified me1 12:43 Drug: fentaNYL (PF) IVP 100 mcg IVP once Route: IVP; Site: right antecubital; me1 14:15 Follow up: Response: No adverse reaction; Pain is decreased; pain relief for 15 minutes.me1 Medication: 12:22 VIS not applicable for this client. me1 Intake: Outcome: 14:18 Discharge ordered by . ec2 14:32 Discharged to home via wheelchair, with family, me1 14:32 Condition: stable 14:32 Discharge instructions given to patient, family, Instructed on discharge instructions, follow up and referral plans. Demonstrated understanding of instructions, follow-up care, 14:33 Patient left the ED. sc1 Signatures: Nita Espinosa RN RN nj1 Sherine Frye Michelle, RN RN me1 Sarath Chairez MD MD ec2 Corrections: (The following items were deleted from the chart) 12:56 12:22 Social history: Smoking status: sc1 nj1
[2023-04-28 15:02] VITALS: TEMP 97.4
[2023-04-28 15:12] VITALS: BP 129/82; O2SAT 100
--- NOTE | 2023-04-29 16:52 | EKG ---
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
== END 2023-04-28 14:33 | disposition home or self-care (01) ==
LOC: ER 11:23
DX: R55 Syncope and collapse (principal); M79.672 Pain in left foot; M79.671 Pain in right foot; I10 Essential (primary) hypertension; J44.9 Chronic obstructive pulmonary disease, unspecified; E03.9 Hypothyroidism, unspecified
CPT/HCPCS: 93005; 85025; 36415; 80053; 96374; 99284; J3010 ×2

== ENCOUNTER 2023-05-02 15:50 | Inpatient (IN) | payer OTHER ==
--- OUTSIDE RECORDS SUMMARY | 2023-05-02 16:01 | XMS REPORT | Continuity of Care Document ---
:1950 Author Organization [facility] t Address [address] [facility]. [address] [place] [address] Care Team Providers Name Role Phone No, Pcp [facility] Primary Care Physician Unavailable CHAO CARDONA Attending Clinician Unavailable Nisa PEREZ, [place] Attending Clinician Unavailable AMANDA DANIELS Attending Clinician Unavailable Vidhya Fuentes MD Attending Clinician Amanda Daniels MD Attending Clinician Dominique Taylor DO Attending Clinician Lacy Barros Attending Clinician LACY BEJARANO Attending Clinician Unavailable Doctor Unassigned, [place] Attending Clinician Unavailable MARIA GUADALUPE HOSKINS Attending Clinician Unavailable Maria Guadalupe Hoskins MD Attending Clinician Quentin Mckeon MD Attending Clinician Martha Conway MD Attending Clinician Mary Kay Felix MD Attending Clinician MARTHA CONWAY Attending Clinician Unavailable Amelia Ferreira Attending Clinician Kashif Strong MD Attending Clinician Cris RAMIREZ, Wendi Braga Attending Clinician [phone] Amelia ZIEGLER Attending Clinician Unavailable Clarence Bach [...] Expiration Date Juliann cuevas MEDICARE A B [id number] 2014 00:00:00 Problems Condition Condition Condition Status Onset Resolution Last Treating Co mments Source Name Details Category Date Date Treatment Clinician Date Fall, Fall, Disease Active Univers initial initial 6-06 [place] Hypoxia Hypoxia Disease Active [facility]-[address] [facility] [address] Acute Acute Disease Active [facility] hypoxemic hypoxemic 12-14 ke s respirator respirator 00:00: Me dical y failure y failure 00 Cent er Pneumothor Pneumothor Disease Active [facility] [address] Acute Acute Disease Active Univers hypercapni hypercapni 6 it y of c c 00:00: [place] respirator respirator 00 Me dical y failure y failure Bran ch E46 E46 Disease Active Univers Unspecifie Unspecifie 607 it y of d severe d severe 00:00: [place] protein-ca protein-ca 00 Me dical marshall marshall Branch malnutriti malnutriti on on Cellulitis Cellulitis Disease Active U nivers of left of left 6-05 ity of lower lower 00:00: [place] extremity extremity [facility] Branch Allergies, Adverse Reactions, Alerts [...] Active Univers ALLERGIE Class ity of S [place] [facility] [place] NO KNOWN Allergy Active [facility] Social History Social Habit Start Date Stop Date Quantity Comments Source History of tobacco Cigarette Smoker University of use [place] [facility] History SDOH University o f Alcohol Std Drinks [place] [facility] History SDOH University o f Alcohol Binge [place] [facility] al Branch History SDOH Social Unive rsity of Connections [facility] Med ical Together Branch History SDOH Social Unive rsity of Connections [facility] Medical Branch History SDOH Social Unive rsity of Connections [place] [facility] Membership Branch History SDOH Social Unive rsity of Connections [place] [facility] Meetings Branch Sexual orientation [facility] Cigarettes smoked 2022-11-11 2022-11-11 Univers ity of current (pack per 00:00:00 00:00:00 [facility] [place] [facility] edical day) - Reported Branch Cigarette 2022-11-11 2022-11-11 University of pack-years 00:00:00 00:00:00 [place] [facility] History SDOH 2022-11-11 2022-11-11 1 University o f Alcohol Frequency 00:00:00 00:00:00 [facility] [place] [facility] edical Branch History SDOH Social 2022-11-11 2022-11-11 5 Unive rsity of Connections Phone 00:00:00 00:00:00 [facility] [place] [facility] edical Branch History SDOH Social 2022-11-11 2022-11-11 4 Unive rsity of Connections Living 00:00:00 00:00:00 [place] [facility] History SDOH 2022-11-11 2022-11-11 0 University o f Physical Activity 00:00:00 00:00:00 [facility] [place] [facility] edical DPW Branch History SDOH 2022-11-11 2022-11-11 0 University o f Physical Activity 00:00:00 00:00:00 [facility] [place] [facility] edical MPS Branch History SDOH 2022-11-11 2022-11-11 5 University o f Financial 00:00:00 00:00:00 [place] [facility] History SDNH Food 2022-11-11 2022-11-11 1 Univers ity of Worry 00:00:00 00:00:00 [place] [facility] History SDOH Food 2022-11-11 2022-11-11 1 Univers ity of Scarcity 00:00:00 00:00:00 [place] [facility] History SDNH 2022-11-11 2022-11-11 2 University o f Transport Med 00:00:00 00:00:00 [place] Medic al Branch History SDNH 2022-11-11 2022-11-11 2 University o f Transport Non-Med 00:00:00 00:00:00 [place] M edical Branch History SDNH 2022-11-11 2022-11-11 2 University o f Housing Unable to 00:00:00 00:00:00 [place] M edical Pay Branch History [facility] 2022-11-11 2022-11-11 1 [place] [facility] [place] Places 00:00:00 00:00:00 [place] Medi santo Lived Branch History [facility] 2022-11-11 2022-11-11 2 [place] [facility] [place] Homeless 00:00:00 00:00:[address] [facility] dical Last Year Branch Tobacco Comment 2022-11-11 2022-11-11 Less than a pack Uni versity of 00:00:00 00:00:00 a day [facility] Tobacco use and 2022-11-11 2022-11-11 Smokeless Universit y of exposure 00:00:00 00:00:[address] tobacco non-user [facility] dical Branch Alcohol intake 2022-11-11 2022-11-11 Ex-drinker [facility] 00:00:00 00:00:00 (finding) [facility] Exposure to 2022-09-30 2022-10-10 Not sure [facility] SARS-CoV-2 (event) 00:00:00 10:35:00 [facility] Sex Ass[birth year] At [birth year] SMITHA Hernandez 00:00:00 00:00:00 Medical Center Smoking Status Start Date Stop Date Source Smokes tobacco daily 2022-11-11 00:00:00 Univers ity of [facility] Medications Ordered Filled Start Stop Current Ordering Indication Dosage Frequency Signature Comments Components Source Medication Medication Date Date Medication? Clinician (SIG) Name Name famotidine Yes 20mg 20 mg, Unive rs (PEPCID AC) 6-10 Oral, ity of tablet 20 14:00: DAILY, [place] mg 00 First dose Medical on Thu Branch 11/15/22 at 0900, Until Discontinu ed, Routine predniSONE Yes [id number] 20mg Take 1 Univers 20 mg 6-10 tablet by ity of tablet 00:00: mouth in [place] 00 the Medical morning. Branch predniSONE Yes [id number] 20mg Take 1 Univers 20 mg 6-10 tablet by ity of tablet 00:00: mouth in [place] 00 the Medical morning. Branch doxycycline 2022- [...] Routine, Pain (scale 7-10) acidophilus 2022-0 Yes [id number] 1g Take 1 Univers 100 million 6- tablet by ity of cell tablet 00:00: mouth [place] 00 the Medical morning Branch and 1 tablet in the evening. albuterol 0 Yes [id number] 2{puff} Inhale 2 Univers 90 6- Puffs ity of mcg/actuati 00:00: every 4 Jun[place] as on inhaler 00 (four) Medical hours as Branch needed for Wheezing or Shortness of Breath. furosemide 0 Yes [id number] 20mg Take 1 Univers 20 mg - tablet by ity of tablet 00:00: mouth in [place] 00 the Medical morning. Branch levothyroxi 0 Yes [id number] 75ug Take 1 Univers ne 75 mcg - tablet by ity o f tablet 00:00: mouth [place] 00 every Medical morning. Branch levalbutero 0 Yes [id number] 1.25mg Inhale Univers l 1.25 mg/3 6-09 1.25 mg ity o f mL 00:00: every 4 [place] nebulizer 00 (four) Medical solution hours as Branch needed for Wheezing or Shortness of Breath. gabapentin 2022-0 Yes [id number] 100mg Take 1 Univers 100 mg - capsule by ity of capsule 00:00: mouth in [place] 00 the Medical morning Branch and 1 capsule at noon and 1 capsule in the evening. aspirin 81 2022-0 Yes [id number] 81mg Take 1 Univers mg chewable 6- tablet by ity of tablet 00:00: mouth in [place] 00 the Medical morning. Branch KCL 10 mEq 2022-0 Yes [id number] 10meq Take 1 Univers tablet 6-09 tablet by ity of 00:00: mouth in [place] 00 the Medical morning. Branch collagenase 0 Yes [id number] Apply to Univers 250 - affected ity of unit/gram 00:00: area(s) [place] ointment 00 daily. Medical Lower legs Branch with wet-to-dry dressing daily acidophilus 2022-0 Yes [id number] 1g Take 1 Univers 100 million 6-09 tablet by ity of cell tablet 00:00: mouth [place] 00 the Medical morning Branch and 1 tablet in the evening. albuterol Yes [id number] 2{puff} Inhale 2 Univers 90 6-09 Puffs ity of mcg/actuati 00:00: every 4 Jun[place] as on inhaler 00 (four) Medical hours as Branch needed for Wheezing or Shortness of Breath. furosemide Yes [id number] 20mg Take 1 Univers 20 mg 6- tablet by ity of tablet 00:00: mouth in [place] 00 the Medical morning. Branch levothyroxi 0 Yes [id number] 75ug Take 1 Univers ne 75 mcg 6- tablet by ity o f tablet 00:00: mouth [place] 00 every Medical morning. Branch levalbutero Yes [id number] 1.25mg Inhale Univers l 1.25 mg/3 6-09 1.25 mg ity o f mL 00:00: every 4 [place] nebulizer 00 (four) Medical solution hours as Branch needed for Wheezing or Shortness of Breath. gabapentin 0 Yes [id number] 100mg Take 1 Univers 100 mg 6- capsule by ity of capsule 00:00: mouth in [place] 00 the Medical morning Branch and 1 capsule at noon and 1 capsule in the evening. aspirin 81 0 Yes [id number] 81mg Take 1 Univers mg chewable 6- tablet by ity of tablet 00:00: mouth in [place] 00 the Medical morning. Branch KCL 10 mEq 0 Yes [id number] 10meq Take 1 Univers tablet 6-09 tablet by ity of 00:00: mouth in [place] 00 the Medical morning. Branch collagenase 0 Yes [id number] Apply to Univers 250 - affected ity of unit/gram 00:00: area(s) [place] ointment 00 daily. Medical Lower legs Branch with wet-to-dry dressing daily doxycycline 2022-0 2022- No [id number] 100mg Take 1 Univers hyclate 100 11-14 06-20 capsule by i ty of mg capsule 00:00: 04:59 mouth [place] 00 :00 every 12 Medical (twelve) Branch hours for 10 days. doxycycline 2022- No [id number] 100mg Take 1 Univers hyclate 100 11-14 [...] ity of 0.02 % 01:00: , TID, [place] nebulizer 00 First dose Medi santo solution on e Branch 0.5 mg 11/11/22 at 1999, Until Discontinu ed, Routine levalbutero Yes 1.25mg 1.25 mg, Univers l (XOPENEX) 11-12 Inhalation it y of nebulizer 01:00: , TID, [place] solution 00 First dose Medic al 1.25 mg on [facility] Branch 11/11/22 at 1999, Until Discontinu ed, [...] ty of succ 01:00: 14:10 s, Q12H, [place] (SOLU-MEDRO 00 :08 First dose Me dical L (PF)) on Branch injection 11/11/22 at 40 mg 1999, Until Discontinu ed, 1 mL propofoL IV 2022- No 5ug/kg/ 5-50 Un jacinda infusion 11-11 min mcg/kg/min ity of 23:56: 18:54 ?49 kg [place] 11 :15 (1.47-14.7 Medical mL/hr), IV Branch [...] 30 mg 00 First dose Medical on [facility] 11/11/22 at 1700, Until Discontinu [...] Medic al (NS) 100 mL 10 doses, [facility] MINI-BAG First dose on Thu11/11/22 at 1100, Last dose on [facility] 11/15/22 at 2300, Administer over 4 Hours, [...] dose Medi santo (NS) 100 mL on [facility] MINI-BAG 11/11/22 at 0730, Until [...] by ity of tablet 00:00: mouth in [place] 00 the Medical morning. Branch metoprolol 3-0 Yes 50mg Take 1 Unive rs succinate 3-01 tablet by ity o f XL 50 mg 24 00:00: mouth in [place] hr tablet 00 the Medical morning. Branch lisinopriL 3-0 Yes 10mg Take 1 Unive rs 10 mg 3-01 tablet by ity of tablet 00:00: mouth in [place] 00 the Medical morning. Branch metoprolol 3-0 Yes 50mg Take 1 Unive rs succinate 3-01 tablet by ity o f XL 50 mg 24 00:00: mouth in [place] hr tablet 00 the Medical morning. Branch lisinopriL 3-0 Yes 10mg Take 1 Unive rs 10 mg 3-01 tablet by ity of tablet 00:00: mouth in [place] 00 the Medical morning. Branch metoprolol 3-0 Yes 50mg Take 1 Unive rs succinate 3-01 tablet by ity o f XL 50 mg 24 00:00: mouth in [place] hr tablet 00 the Medical morning. Branch lisinopriL 2022-0 2022- No 10mg Take 1 Univ ers 10 mg 3-01 -09 tablet by ity of tablet 00:00: 00:00 mouth in [place] 00 :00 the Medical morning. Branch metoprolol [...] er tablet daily for 30 days. pantoprazol 2022-1 2022- No 40mg QD Take [address] [facility] [...] mouth Center daily for 10 days. predniSONE 2022-1 2022- No 20mg QD Take [address] [facility] [facility] [...] [address] -albuteroL 004-28 by [employer] ([employer]) 00:00: 23:59 nebulizati M edical 0.5 mg-3 00 :00 on every 6 Cente r mg(2.5 mg (six) base)/3 mL hours for nebulizer 30 days. solution atorvastati 2021-06 80mg QD Take [address] [facility] [...] [facility] -albuteroL 0-22 11-21 by [facility] ([employer]) 00:00: 23:59 nebulizati M edical 0.5 mg-3 00 :00 on every 6 Cente r mg(2.5 mg (six) base)/3 mL hours for nebulizer 30 days. solution atorvastati 2021-06 No 80mg QD Take [address] [facility] n (LIPITOR) - tablet (80 L ukes 80 MG 00:00: 23:59 mg total) Medica l tablet 00 :00 by mouth Center nightly for 30 days. budesonide 2021-06 No .25mg Q.5D Take [address] (PULMICORT) - (0.25 mg [place] es 0.25 mg/2 00:00: 23:59 total) by Me dical mL 00 :00 nebulizati Center nebulizer on 2 (two) solution times daily for 30 days. ipratropium 2021-06 No 3mL Take [address] -albuteroL - by [facility] (DUO-NEB) 00:00: 23:59 nebulizati M [...] solution on 2 (two) times daily. budesonide 2020-0 2- No .5mg Q.5D Take [address] (PULMICORT) 12-19-14 (0.5 mg Luke s 0.5 mg/2 mL 00:00: 23:59 total) by Medical nebulizer 00 :00 nebulizati Cent er solution on 2 (two) times daily. budesonide 2020-0 2022- No .5mg Q.5D Take [address] (PULMICORT) 12-19-14 (0.5 mg Luke s 0.5 mg/2 mL 00:00: 23:59 total) by Medical nebulizer 00 :00 nebulizati Cent er solution on 2 (two) times daily. ipratropium 2020-0 2021- No 3mL Take [address] -albuteroL 12-19 by [place] ([employer]) 00:00: 23:59 nebulizati M edical 0.5 mg-3 00 :00 on every 4 Cente r mg(2.5 mg (four) base)/3 mL hours for nebulizer 360 days. solution ipratropium 2020-0 2021- No 3mL Take [address] -albuteroL 12-19 by [place] ([employer]) 00:00: 23:59 nebulizati M edical 0.5 mg-3 00 :00 on every 4 Cente r mg(2.5 mg (four) base)/3 mL hours for nebulizer 360 days. solution ipratropium 2020-0 2021- No 3mL Take [address] -albuteroL 12-19 by [employer] ([employer]) 00:00: 23:59 nebulizati M edical 0.5 mg-3 [...] mcg by ity of tablet 01:00: mouth [place] 27 every Medical morning. Branch vitamin 1-0 Yes [id number] 1000ug Take 1 U nivers B-12 1,000 6-30 tablet by ity of mcg tablet 00:00: mouth [place] 00 daily. Medical Branch vitamin 1-0 Yes [id number] 1000ug Take 1 U nivers B-12 1,000 6-30 tablet by ity of mcg tablet 00:00: mouth [place] [address] [facility] vitamin 1-0 Yes [id number] 1000ug Take 1 U nivers B-12 1,000 6-30 tablet by ity of mcg tablet 00:00: mouth [place] [address] [facility] vitamin 1-0 Yes [id number] 1000ug Take 1 U nivers B-12 1,000 6-30 tablet by ity of mcg tablet 00:00: mouth [place] [address] [facility] vitamin 1-0 Yes [id number] 1000ug Take 1 U nivers B-12 1,000 6-30 tablet by ity of mcg tablet 00:00: mouth [place] [address] [facility] vitamin 1-0 Yes [id number] 1000ug Take 1 U nivers B-12 1,000 6-30 tablet by ity of mcg tablet 00:00: mouth [place] [address] [facility] vitamin 1-0 Yes [id number] 1000ug Take 1 U nivers B-12 1,000 6-30 tablet by ity of mcg tablet 00:00: mouth [place] [address] [facility] vitamin 1-0 Yes [id number] 1000ug Take 1 U nivers B-12 1,000 6-30 tablet by ity of mcg tablet 00:00: mouth [place] [address] [facility] vitamin 2021-0 Yes [id number] 1000ug Take 1 U nivers B-12 1,000 6-30 tablet by ity of mcg tablet 00:00: mouth [place] [address] [facility] vitamin 1-0 Yes [id number] 1000ug Take 1 U nivers B-12 1,000 6-30 tablet by ity of mcg tablet 00:00: mouth [place] [address] [facility] vitamin 2021-0 Yes [id number] 1000ug Take 1 U nivers B-12 1,000 6-30 tablet by ity of mcg tablet 00:00: mouth [place] 00 daily. Medical Branch vitamin 2020-0 Yes [id number] 1000ug Take 1 U nivers B-12 1,000 6-30 tablet by ity of mcg tablet 00:00: mouth [place] 00 daily. Medical Branch vitamin 2020-0 Yes [id number] 1000ug Take 1 U nivers B-12 1,000 6-30 tablet by ity of mcg tablet 00:00: mouth [place] 00 daily. Medical Branch vitamin 2020-0 Yes [id number] 1000ug Take 1 U nivers B-12 1,000 6-30 tablet by ity of mcg tablet 00:00: mouth [place] 00 daily. Medical Branch vitamin 2020-0 2023- No [id number] 1000ug Take 1 Univers B-12 1,000 6-30 [...] 0900, Until Discontinu ed, Routine albuterol Yes [id number] 2{puff} Inhale 2 Univers 90 6-29 Puffs ity of mcg/actuati 00:00: every 6 [place] on inhaler 00 (six) Medical hours as Branch needed for Wheezing or Shortness of Breath. albuterol Yes [id number] 2{puff} Inhale 2 Univers 90 6-29 Puffs ity of mcg/actuati 00:00: every 6 [place] on inhaler 00 (six) Medical hours as Branch needed for Wheezing or Shortness of Breath. albuterol Yes [id number] 2{puff} Inhale 2 Univers 90 6-29 Puffs ity of mcg/actuati 00:00: every 6 [place] on inhaler 00 (six) Medical hours as Branch needed for Wheezing or Shortness of Breath. albuterol Yes [id number] 2{puff} Inhale 2 Univers 90 6-29 Puffs ity of mcg/actuati 00:00: every 6 [place] on inhaler 00 (six) Medical hours as Branch needed for Wheezing or Shortness of Breath. albuterol Yes [id number] 2{puff} Inhale 2 Univers 90 6-29 Puffs ity of mcg/actuati 00:00: every 6 [place] on inhaler 00 (six) Medical hours as Branch needed for Wheezing or Shortness of Breath. albuterol Yes [id number] 2{puff} Inhale 2 Univers 90 6-29 Puffs ity of mcg/actuati 00:00: every 6 [place] on inhaler 00 (six) Medical hours as Branch needed for Wheezing or Shortness of Breath. albuterol Yes [id number] 2{puff} Inhale 2 Univers 90 6-29 Puffs ity of mcg/actuati 00:00: every 6 [place] on inhaler 00 (six) Medical hours as Branch needed for Wheezing or Shortness of Breath. albuterol Yes [id number] 2{puff} Inhale 2 Univers 90 6-29 Puffs ity of mcg/actuati 00:00: every 6 [place] on inhaler 00 (six) Medical hours as Branch needed for Wheezing or Shortness of Breath. albuterol Yes [id number] 2{puff} Inhale 2 Univers 90 6-29 Puffs ity of mcg/actuati 00:00: every 6 [place] on inhaler 00 (six) Medical hours as Branch needed for Wheezing or Shortness of Breath. albuterol Yes [id number] 2{puff} Inhale 2 Univers 90 6-29 Puffs ity of mcg/actuati 00:00: every 6 [place] on inhaler 00 (six) Medical hours as Branch needed for Wheezing or Shortness of Breath. albuterol Yes [id number] 2{puff} Inhale 2 Univers 90 6-29 Puffs ity of mcg/actuati 00:00: every 6 [place] on inhaler 00 (six) Medical hours as Branch needed for Wheezing or Shortness of Breath. albuterol Yes [id number] 2{puff} Inhale 2 Univers 90 6-29 Puffs ity of mcg/actuati 00:00: every 6 [place] on inhaler 00 (six) Medical hours as Branch needed for Wheezing or Shortness of Breath. albuterol Yes [id number] 2{puff} Inhale 2 Univers 90 6-29 Puffs ity of mcg/actuati 00:00: every 6 [place] on inhaler 00 (six) Medical hours as Branch needed for Wheezing or Shortness of Breath. albuterol Yes [id number] 2{puff} Inhale 2 Univers 90 6-29 Puffs ity of mcg/actuati 00:00: every 6 [place] on inhaler 00 (six) Medical hours as Branch needed for Wheezing or Shortness of Breath. albuterol 2022- No [id number] 2{puff} Inhale 2 Univers 90 6-29 06-09 Puffs ity of mcg/actuati 00:00: 00:00 every 6 [place] on inhaler 00 :00 (six) Medical hours as Branch needed for Wheezing or Shortness of Breath. KCL 2020- No 40meq 40 mEq, Univers (KLOR-CON 12-01-26 Oral, ity of M20) tablet 14:15: 13:20 ONCE, 1 [place] 40 mEq 00 :00 dose, [facility] 12/01/20 at Branch 0915, Routine lactated 2020- No 500mL at 999 Unive rs ringers IV 11-29 06-24 mL/hr, 500 it y of infusion 01:15: 02:00 mL, [place] 500 mL 00 :00 Intravenou Medical s, [...] ed, Routine predniSONE No 40mg 40 mg, [facility] [place] [facility] ers (DELTASONE) 11-28 Oral, ity of tablet 40 14:00: 13:58 DAILY, 5 Juni as mg 00 :00 doses, Medical First dose Branch on Thu11/28/20 at 0900, Last dose on Thu12/02/20 at 0900, Routine levothyroxi Yes 75ug 75 mcg, Uni vers ne 11-28 Oral, ity of (SYNTHROID) 11:00: QAM-0600, [place] tablet 75 00 First dose Medi santo mcg on Thu11/28/20 at 0600, Until Discontinu ed, Routine albuterol Yes 2.5mg 2.5 mg, [facility] (PROVENTIL) 11-28 Inhalation it y of 2.5 mg /3 01:00: , Q4H, [place] mL (0.083 00 First dose Medi santo %) on [facility] nebulizer 11/27/20 at solution 2000, 2.5 mg Until Discontinu ed, Routine ceFEPIme No 2000mg 2,000 mg, U nivers (MAXIPIME) 11-28 IV ity of 2,000 mg in 00:15: 14:42 [facility], [place] NaCl 0.9% 00 :22 Q8H ABX, Medica [...] dose Medi santo (NS) 100 mL on [facility] MINI-BAG 11/27/20 at 1815, Until Discontinu ed, [...] ity of 1,000 mg in 18:15: 18:16 [facility] [place] NaCl 0.9% 00 :00 ONCE, 1 Medical [...] Tue Medi santo (4 %) 11/27/20 at [place] infusion 2 1145, g Routine methylpredn 2020- No 125mg 125 mg, IV Univers isolone sod 11-27 [place], i ty of succ 16:45: 15:47 ONCE, 1 [place] (SOLU-MEDRO 00 :00 dose, Tue Med ical L) 11/27/20 at [place] injection 1145, STAT 125 mg ipratropium 2020- [...] s mg 00 First dose Medical (after [place] last modificati on) on Thu11/14/20 at 0900, Until Discontinu ed, CEM
Re ason for Anti-Infec tive: Empiric Therapy for Suspected Infection< br>Empiric Therapy Site: Skin / Soft tissue
Duration of therapy: 72 hours levothyroxi Yes 75ug Take 75 Uni vers ne 75 mcg 6-08 mcg by ity of tablet 21:50: mouth [place] 33 every Medical morning. [place] levothyroxi Yes 75ug Take 75 Uni vers ne 75 mcg 6-08 mcg by ity of tablet 21:50: mouth [place] 33 every Medical morning. [place] levothyroxi Yes 75ug Take 75 Uni vers ne 75 mcg 6-08 mcg by ity of tablet 21:50: mouth [place] 33 every Medical morning. [place] lactobacill Yes .5mg 0.5 mg, Uni vers [...] Until Discontinu ed, Routine furosemide 2020-0 Yes [id number] 20mg Take 1 Univers 20 mg 6-08 tablet by ity of tablet 00:00: mouth [place] 00 daily. Medical Branch acidophilus 2020-0 Yes [id number] 1g Take 1 Univers 100 million 6-08 tablet by ity of cell tablet 00:00: mouth 2 [place] as 00 (two) Medical times Branch daily. Bismuth 2020-0 Yes [id number] Apply to [facility]-Pet 6-08 lower ity of [facility], 00:00: extremity [place] (XEROFORM 00 wounds Medical PETROLATUM with Branch DRESSING) 4 Kerlix X 4 " Bndg wrap and change daily furosemide 2020-0 Yes [id number] 20mg Take 1 Univers 20 mg 6-08 tablet by ity of tablet 00:00: mouth [place] 00 daily. Medical Branch acidophilus 2020-0 Yes [id number] 1g Take 1 Univers 100 million 6-08 tablet by ity of cell tablet 00:00: mouth 2 [place] as 00 (two) Medical times Branch daily. Bismuth 2020-0 Yes [id number] Apply to [facility]-Pet 6-08 lower ity of [place] 00:00: extremity [place] (XEROFORM 00 wounds Medical PETROLATUM with Branch DRESSING) 4 Kerlix X 4 " Bndg wrap and change daily furosemide 2020-0 Yes [id number] 20mg Take 1 Univers 20 mg 6-08 tablet by ity of tablet 00:00: mouth [place] 00 daily. Medical Branch acidophilus 2020-0 Yes [id number] 1g Take 1 Univers 100 million 6-08 tablet by ity of cell tablet 00:00: mouth 2 [place] as 00 (two) Medical times Branch daily. Bismuth 2020-0 Yes [id number] Apply to [facility]-Pet 6-08 lower ity of [place],Wh 00:00: extremity [place] (XEROFORM 00 wounds Medical PETROLATUM with Branch DRESSING) 4 Kerlix X 4 " Bndg wrap and change daily furosemide 2020-0 Yes [id number] 20mg Take 1 Univers 20 mg 6-08 tablet by ity of tablet 00:00: mouth [place] 00 daily. Medical Branch acidophilus 2020-0 Yes [id number] 1g Take 1 Univers 100 million 6-08 tablet by ity of cell tablet 00:00: mouth 2 [place] as 00 (two) Medical times Branch daily. Bismuth 2020-0 Yes [id number] [facility] ity of [facility],[place] 00:00: extremity [place] (XEROFORM 00 wounds Medical PETROLATUM with Branch DRESSING) 4 Kerlix X 4 " Bndg wrap and change daily furosemide 2020-0 Yes [id number] 20mg Take 1 Univers 20 mg 6-08 tablet by ity of tablet 00:00: mouth [place] 00 daily. Medical Branch acidophilus 2020-0 Yes [id number] 1g Take 1 Univers 100 million 6-08 tablet by ity of cell tablet 00:00: mouth 2 [place] as 00 (two) Medical times Branch daily. Bismuth 2020-0 Yes [id number] Apply to [facility], [place]: extremity [place] (XEROFORM 00 wounds Medical PETROLATUM with Branch DRESSING) 4 Kerlix X 4 " Bndg wrap and change daily furosemide 2020-0 Yes [id number] 20mg Take 1 Univers 20 mg 6-08 tablet by ity of tablet 00:00: mouth [place] 00 daily. Medical Branch acidophilus 2020-0 Yes [id number] 1g Take 1 Univers 100 million 6-08 tablet by ity of cell tablet 00:00: mouth 2 Jun[place] as 00 (two) Medical times Branch daily. Bismuth 2020-0 Yes [id number] [facility],[place] 00:00: extremity [place] (XEROFORM 00 wounds Medical PETROLATUM with Branch DRESSING) 4 Kerlix X 4 " Bndg wrap and change daily furosemide 2020-0 Yes [id number] 20mg Take 1 Univers 20 mg 6-08 tablet by ity of tablet 00:00: mouth [place] 00 daily. Medical Branch acidophilus 2020-0 Yes [id number] 1g Take 1 Univers 100 million 6-08 tablet by ity of cell tablet 00:00: mouth 2 Jun[place] as 00 (two) Medical times Branch daily. Bismuth 2020-0 Yes [id number] Apply to [facility]-Pet 6-08 lower ity of [facility], 00:00: extremity [place] (XEROFORM 00 wounds Medical PETROLATUM with Branch DRESSING) 4 Kerlix X 4 " Bndg wrap and change daily furosemide 2020-0 Yes [id number] 20mg Take 1 Univers 20 mg 6-08 tablet by ity of tablet 00:00: mouth [place] 00 daily. Medical Branch acidophilus 2020-0 Yes [id number] 1g Take 1 Univers 100 million 6-08 tablet by ity of cell tablet 00:00: mouth 2 [place] as 00 (two) Medical times Branch daily. Bismuth 0 Yes [id number] Apply to [facility] 6-08 lower ity of [facility], 00:00: extremity [place] (XEROFORM 00 wounds Medical PETROLATUM with Branch DRESSING) 4 Kerlix X 4 " Bndg wrap and change daily furosemide 2020-0 Yes [id number] 20mg Take 1 Univers 20 mg 6-08 tablet by ity of tablet 00:00: mouth [place] 00 daily. Medical Branch acidophilus 2020-0 Yes [id number] 1g Take 1 Univers 100 million 6-08 tablet by ity of cell tablet 00:00: mouth 2 [place] 00 (two) Medical times Branch daily. Bismuth 2020-0 Yes [id number] Apply to [facility] 6-08 lower ity of [facility], 00:00: extremity [place] (XEROFORM 00 wounds Medical PETROLATUM with Branch DRESSING) 4 Kerlix X 4 " Bndg wrap and change daily furosemide 2020-0 Yes [id number] 20mg Take 1 Univers 20 mg 6-08 tablet by ity of tablet 00:00: mouth [place] 00 daily. Medical Branch acidophilus 2020-0 Yes [id number] 1g Take 1 Univers 100 million 6-08 tablet by ity of cell tablet 00:00: mouth 2 [place] 00 (two) Medical times Branch daily. Bismuth 0 Yes [id number] Apply to [facility] Tribrom-Pet 6-08 lower ity of [place] 00:00: extremity [place] (XEROFORM 00 wounds Medical PETROLATUM with Branch DRESSING) 4 Kerlix X 4 " Bndg wrap and change daily furosemide 2020-0 Yes [id number] 20mg Take 1 Univers 20 mg 6-08 tablet by ity of tablet 00:00: mouth [place] 00 daily. Medical Branch acidophilus 2020-0 Yes [id number] 1g Take 1 Univers 100 million 6-08 tablet by ity of cell tablet 00:00: mouth 2 [place] as 00 (two) Medical times Branch daily. Bismuth 0 Yes [id number] Apply to [facility] Tribrom-Pet 6-08 lower ity of [place] 00:00: extremity [place] (XEROFORM 00 wounds Medical PETROLATUM with Branch DRESSING) 4 Kerlix X 4 " Bndg wrap and change daily furosemide 2020-0 Yes [id number] 20mg Take 1 Univers 20 mg 6-08 tablet by ity of tablet 00:00: mouth [place] 00 daily. Medical Branch acidophilus 2020-0 Yes [id number] 1g Take 1 Univers 100 million 6-08 tablet by ity of cell tablet 00:00: mouth 2 [place] 00 (two) Medical times Branch daily. Bismuth 0 Yes [id number] Apply to [facility]Pet 6[facility]: extremity [place] (XEROFORM 00 wounds Medical PETROLATUM with Branch DRESSING) 4 Kerlix X 4 " Bndg wrap and change daily furosemide 2020-0 Yes [id number] 20mg Take 1 Univers 20 mg 6-08 tablet by ity of tablet 00:00: mouth [place] 00 daily. Medical Branch acidophilus 2020-0 Yes [id number] 1g Take 1 Univers 100 million 6-08 tablet by ity of cell tablet 00:00: mouth 2 [place] as 00 (two) Medical times Branch daily. Bismuth 2020-0 Yes [id number] Apply to U nivers Tribrom-Pet 6-08 lower ity of [place] 00:00: extremity [place] (XEROFORM 00 wounds Medical PETROLATUM with Branch DRESSING) 4 Kerlix X 4 " Bndg wrap and change daily furosemide 0 Yes [id number] 20mg Take 1 Univers 20 mg 6-08 tablet by ity of tablet 00:00: mouth [place] 00 daily. Medical Branch acidophilus 0 Yes [id number] 1g Take 1 Univers 100 million 6-08 tablet by ity of cell tablet 00:00: mouth 2 [place] as 00 (two) Medical times Branch daily. Bismuth 0 Yes [id number] Apply to U nivers Tribrom-Pet 6-08 lower ity of [facility],[place] 00:00: extremity [place] (XEROFORM 00 wounds Medical PETROLATUM with Branch DRESSING) 4 Kerlix X 4 " Bndg wrap and change daily furosemide Yes [id number] 20mg Take 1 Univers 20 mg 6-08 tablet by ity of tablet 00:00: mouth [place] 00 daily. Medical Branch acidophilus 0 Yes [id number] 1g Take 1 Univers 100 million 6-08 tablet by ity of cell tablet 00:00: mouth 2 [place] 00 (two) Medical times Branch daily. Bismuth Yes [id number] [facility],[place] 00:00: extremity [place] (XEROFORM 00 wounds Medical PETROLATUM with Branch DRESSING) 4 Kerlix X 4 " Bndg wrap and change daily furosemide 0 Yes [id number] 20mg Take 1 Univers 20 mg 6-08 tablet by ity of tablet 00:00: mouth [place] 00 daily. Medical Branch acidophilus 2020-0 Yes [id number] 1g Take 1 Univers 100 million 6-08 tablet by ity of cell tablet 00:00: mouth 2 [place] 00 (two) Medical times Branch daily. Bismuth 0 Yes [id number] Apply to [facility] Tribrom-Pet 6-08 lower ity of [facility],[place] 00:00: extremity [place] (XEROFORM 00 wounds Medical PETROLATUM with Branch DRESSING) 4 Kerlix X 4 " Bndg wrap and change daily furosemide 0 Yes [id number] 20mg Take 1 Univers 20 mg 6-08 tablet by ity of tablet 00:00: mouth [place] 00 daily. Medical Branch acidophilus 2020-0 Yes [id number] 1g Take 1 Univers 100 million 6-08 tablet by ity of cell tablet 00:00: mouth 2 [place] 00 (two) Medical times Branch daily. Bismuth Yes [id number] Apply to U [facility]a Tribrom-Pet 11-13 lower ity of [place] 00:00: extremity [place] (XEROFORM 00 wounds Medical PETROLATUM with Branch DRESSING) 4 Kerlix X 4 " Bndg wrap and change daily furosemide 2022- No [id number] 20mg Take 1 Univers 20 mg 11-13 tablet by ity of tablet 00:00: 00:00 mouth [place] 00 :00 daily. Medical Branch acidophilus 2022- No [id number] 1g Take 1 Univers 100 million 11-13 tablet by it y of cell tablet 00:00: 00:00 mouth 2 [place] 00 :00 (two) Medical times Branch daily. Bismuth 2022- No [id number] [facility] [place] 00:00: 00:00 extremity [place] (XEROFORM 00 :00 wounds Medical PETROLATUM with Branch DRESSING) 4 Kerlix X 4 " Bndg wrap and change daily levoFLOXaci 2020- No [id number] 500mg Take 20 mL Univers n 250 mg/10 11-13 by mouth ity of mL solution 00:00: 04:59 every 24 [place] 00 :00 (twenty-fo Medical ur) hours Branch for 7 days. levoFLOXaci 2020- No [id number] 500mg Take 20 mL Univers n 250 [...] 23:05 [place] skin 00 :21 Medical ointment [place] ceFEPIme 2020- No 1000mg 1,000 mg, U nivers (MAXIPIME) 11-1108 IV ity of 1,000 mg in 02:00: 15:50 Piggyback, [place] NaCl 0.9% 00 :11 Q12H ABX, Medic al (NS) 50 mL First dose [facility] MINI-BAG on 11/10/20 at 2100, Until Discontinu ed, 50 mL
R corina for Anti-Infec tive: Documented Infection< br>Documen cristhian Infection Site: Blood
D uration of Therapy: 7 days vancomycin 2020- No 500mg 500 mg, IV Univers (VANCOCIN) 11-10 Piggyback, it y of 500 mg in 23:30: 13:49 Q12H ABX, [place] NaCl 0.9% 00 :27 First dose Medi [place] (NS) 100 mL on [facility] MINI-BAG 11/10/20 at 1830, Until Discontinu ed, 100 mL
R corina for Anti-Infec tive: Documented Infection< br>Documen cristhian Infection Site: Skin / Soft Tissue
Duration of Therapy: 7 days iopamidol 2020- No [id number] 100mL 100 mL, Univers (ISOVUE 11-1005 Intravenou ity o f 370-500 mL) 19:15: 17:45 s, ONCE, 1 [place] injection 00 :00 dose, Sat Medic al 100 mL 11/10/20 at Branch 1415, Routine amLODIPine Yes 5mg 5 mg, Univer s (NORVASC) 11-10 Oral, ity of tablet 5 mg 14:00: DAILY, [place] 00 First dose Medical on [facility] Branch 11/10/20 at 0900, Until Discontinu ed, Routine enoxaparin Yes 40mg 40 mg, Unive rs (LOVENOX) 11-10 Subcutaneo ity of injection 14:00: us, DAILY, [place] 40 mg 00 First dose Medical on [facility] Branch 11/10/20 at 0900, Until Discontinu ed, Routine ipratropium Yes 3mL 3 mL, Unive rs -albuteroL 11-10 Inhalation ity of (DUONEB) 13:00: , QID, [place] 0.5 mg-3 00 First dose Medic al mg(2.5 mg on [facility] Branch base)/3 mL 11/10/20 at nebulizer 0800, solution 3 Until mL Discontinu ed, Routine levoFLOXaci 2020- No 500mg 500 mg, IV Univers n in D5W 11-10 Piggyback, ity of (LEVAQUIN) 11:45: 15:48 Administer [place] 500 mg/100 00 :36 over 60 Medica l mL Minutes, Branch Piggy[place] Q24H ABX, 500 mg First dose on [facility] 11/10/20 at 0645, Until Discontinu ed, CEM
[...] IV Piggyback, Q12H ABX, First dose on [facility] 11/10/20 at 0630, Until Discontinu ed, 500 mL
Reas on for Anti-Infec tive: Documented Infection< br>Docu mented Infection Site: Skin / Soft Tissue
Duration of Therapy: 7 days levothyroxi Yes 75ug 75 mcg, Uni vers ne 11-10 Oral, ity of (SYNTHROID) 11:00: QAM-0600, [place] tablet 75 00 First dose Medi [place]anto mcg on [facility] Branch 11/10/20 at 0600, Until Discontinu ed, [...] 11-10 Oral, ity of mg 10:25: 14:04 Q6Scio, [place] 14 :54 Starting Medical 11/10/20 Branch at 0525, Until 11/12/20 at 0904, Routine, Pain (scale 4-6) acetaminoph No 15mg/kg 608 mg Univers en 11-10 [...] 11-10 IV Push, ity of (PF)) 10:05: Q6Scio, [place] injection 4 13 Starting Medi santo mg 11/10/20 Branch at 0505, Until Discontinu ed, Routine, Nausea and Vomiting (N/V) acetaminoph Yes 650mg 650 mg, Un jacinda en 11-10 Oral, ity of (TYLENOL) 10:04: Q6HPRN, [place] tablet 650 55 Starting Medic al mg [...] 21:00:00 138 mm[Hg] Univer sity of pressure [facility] Diastolic blood 2022-11-14 21:00:00 77 mm[Hg] Unive [facility] Heart rate 2022-11-14 21:00:00 78 /min [facility] Body temperature 2022-11-14 21:00:00 36.94 Charlene [facility] [place] [facility] Respiratory rate 2022-11-14 21:00:00 22 /min [facility] Oxygen saturation in 2022-11-14 21:00:00 90 /min [facility] Arterial blood by [place] [facility] Pulse oximetry [place] Body weight 2022-11-14 09:00:00 46.993 kg [facility] BMI 2022-11-14 09:00:00 15.75 kg/m2 [facility] Body height 2022-11-11 17:57:00 172.7 cm [facility] Systolic blood 2022-10-10 15:44:00 156 mm[Hg] Univer sity of pressure [facility] Diastolic blood 2022-10-10 15:44:00 85 mm[Hg] Unive rsity of [facility] Heart rate 2022-10-10 15:44:00 75 /min Universi ty of [facility] Body height 2022-10-10 15:44:00 170.2 cm Universi ty of [facility] Body weight 2022-10-10 15:44:00 50.576 kg Universi ty of [facility] BMI 2022-10-10 15:44:00 17.46 kg/m2 Universi ty of [facility] Body height 2022-09-12 13:57:00 170.2 cm Universi ty of [facility] Body weight 2022-09-12 13:57:00 54.432 kg Universi ty of [facility] BMI 2022-09-12 13:57:00 18.79 kg/m2 Universi ty [facility] WEIGHT 2022-03-29 06:00:00 49.714 kg HEIGHT 2022-03-27 [...] 2020-12-04 20:26:00 114 mm[Hg] Univer sity of [facility] Diastolic blood 2020-12-04 20:26:00 84 mm[Hg] Unive rsity of pressure [place] [facility] Heart rate 2020-12-04 20:26:00 97 /min Universi ty of [place] [facility] Body temperature 2020-12-04 20:26:00 37.33 Charlene Univ ersity of [place] [facility] Respiratory rate 2020-12-04 20:26:00 20 /min Univ ersity of [place] [facility] Oxygen saturation in 2020-12-04 20:26:00 96 /min University of Arterial blood by [place] [employer] [facility] Pulse oximetry Branch Body height 2020-11-27 22:06:00 172.7 cm Universi ty [facility] [place] [facility] Body weight 2020-11-27 22:06:00 44 kg Universi ty [facility] [place] [facility] BMI 2020-11-27 22:06:00 14.75 kg/m2 Universi ty of [place] [facility] Systolic blood 2020-12-04 20:26:00 114 mm[Hg] Univer sity of pressure [place] [facility] Diastolic blood 2020-12-04 20:26:00 84 mm[Hg] Unive rsity of pressure [place] [facility] Heart rate 2020-12-04 20:26:00 97 /min Universi ty [facility] [place] [facility] Body temperature 2020-12-04 20:26:00 37.33 Charlene Univ ersity of [place] [facility] Respiratory rate 2020-12-04 20:26:00 20 /min Univ ersity of [place] [facility] Oxygen saturation in 2020-12-04 20:26:00 96 /min University of Arterial blood by [place] [employer] [facility] Pulse oximetry Branch Body height 2020-11-27 22:06:00 172.7 cm Universi ty [facility] [place] [facility] Body weight 2020-11-27 22:06:00 44 kg Universi ty [facility] [place] [facility] BMI 2020-11-27 22:06:00 14.75 kg/m2 Universi ty [facility] [place] [facility] Body temperature 2020-11-13 16:20:00 36.44 Charlene Univ ersity of [place] [facility] Respiratory rate 2020-11-13 16:20:00 21 /min Univ ersity of [place] [facility] Oxygen saturation in 2020-11-13 15:59:00 96 /min University of Arterial blood by [place] [employer] [facility] Pulse oximetry Branch Systolic blood 2020-11-13 13:00:00 147 mm[Hg] Univer sity of pressure [place] [facility] Diastolic blood 2020-11-13 13:00:00 99 mm[Hg] Unive rsity of pressure [facility] Heart rate 2020-11-13 13:00:00 80 /min Universi ty of [place] [facility] [place] Body weight 2020-11-13 08:30:00 52.617 kg Universi ty of [facility] BMI 2020-11-13 08:30:00 17.64 kg/m2 Universi ty of [facility] Body height 2020-11-10 10:26:00 172.7 cm Universi ty of [facility] Body temperature 2020-11-13 16:20:00 36.44 Charlene Univ ersity of [facility] Respiratory rate 2020-11-13 16:20:00 21 /min [facility] Oxygen saturation in 2020-11-13 15:59:00 96 /min [facility] Arterial blood by [place] [facility] Pulse oximetry [place] Systolic blood 2020-11-13 13:00:00 147 mm[Hg] Univer sity of pressure [facility] Diastolic blood 2020-11-13 13:00:00 99 mm[Hg] Unive rsity of pressure [facility] Heart rate 2020-11-13 13:00:00 80 /min Universi ty of [facility] Body weight 2020-11-13 08:30:00 52.617 kg Universi ty of [facility] BMI 2020-11-13 08:30:00 17.64 kg/m2 Universi ty of [facility] Body height 2020-11-10 10:26:00 172.7 cm Universi ty of [facility] Systolic blood 2022-03-29 11:01:00 150 mm[Hg] [facility] Diastolic blood 2022-03-29 11:01:00 90 mm[Hg] [facility] S t [facility] Heart rate 2022-03-29 11:01:00 88 /min [facility] Body temperature 2022-03-29 11:01:00 35.61 Charlene [facility] Respiratory rate 2022-03-29 11:01:00 18 /min [facility] Oxygen saturation in 2022-03-29 11:01:00 97 /min [facility] Arterial blood by Medical nter Pulse oximetry Body weight 2022-03-29 06:00:00 49.714 kg [facility] BMI 2022-03-29 06:00:00 18.24 kg/m2 [facility] Body height 2022-03-27 22:32:00 165.1 cm [facility] Procedures Procedure Date / Time Performing Source Performed Clinician RYLAN (ID NOW RAPID 2022-11-14 [facility] 19:06:00 [facility] PHOSPHORUS 2022-11-14 [facility] [place] MAGNESIUM 2022-11-14 [facility] [place] 11:03:00 [facility] BASIC METABOLIC PANEL (NA, K, 2022-11-14 Amanda Daniels [facility] CL, CO2, GLUCOSE, BUN, 11:03:00 Medical ranch CREATININE, [place]) CBC WITH DIFF 2022-11-14 [facility] [place] [facility]:00 [facility] N-TERMINAL PRO-BNP 2022-11-14 [facility] 11:03:00 [facility] POCT GLUCOSE (AUTOMATED) 2022-11-13 Dominique Taylor [facility] 23:15:00 [facility] POCT GLUCOSE (AUTOMATED) 2022-11-13 Dominique Taylor [facility] 17:14:00 [facility] ACUTE CARE ARTERIAL BLOOD GAS 2022-11-13 Amanda Daniels [facility] 09:35:00 [facility] PHOSPHORUS 2022-11-13 [facility] [place] 08:58:00 [facility] MAGNESIUM 2022-11-13 [facility] [place] 08:58:00 [facility] TROPONIN I 2022-11-13 [facility] xa 08:58:00 [facility] HEPATIC FUNCTION PANEL 2022-11-13 [facility] ([id number]) (ALB,T.PRO,BILI 08:58:00 [facility] T,BU/BC,ALT,AST,ALK PHOS) BASIC METABOLIC PANEL (NA, K, 2022-11-13 Hugh, [facility] CL, CO2, GLUCOSE, BUN, 08:58:00 Medical B ranch CREATININE, CA) CBC WITH DIFF 2022-11-13 [facility] 08:58:00 Medical Branch N-TERMINAL PRO-BNP 2022-11-13 [facility] 08:58:00 Medical Branch POCT GLUCOSE (AUTOMATED) 2022-11-13 Dominique Taylor [facility] 05:08:00 Medical Branch XR CHEST 1 VW 2022-11-12 [facility] x[place] 17:30:00 Medical Branch ACUTE CARE ARTERIAL BLOOD GAS 2022-11-12 [facility] 16:37:00 Medical Branch MAGNESIUM 2022-11-12 [facility] 13:31:00 Medical Branch THYROID STIMULATING HORMONE 2022-11-12 [facility] 13:31:00 Medical Branch BASIC METABOLIC PANEL (NA, K, 2022-11-12 Mikala [facility] CL, CO2, GLUCOSE, BUN, 13:31:00 Medical B ran CREATININE, CA) XR CHEST 1 VW 2022-11-12 Dominique Taylor [facility] xa 11:55:00 Medical Branch CBC WITH DIFF 2022-11-12 [facility] 10:29:00 Medical Branch GLYCOSYLATED HEMOGLOBIN (A1C) 2022-11-12 Dominique Taylor [facility] 10:29:00 [facility] N-TERMINAL PRO-BNP 2022-11-12 Mik[facility] 10:29:00 Medical Branch ACUTE CARE ARTERIAL BLOOD GAS 2022-11-12 [facility] 09:[facility] HEAD WO CONTRAST 2022-11-12 Dominique Taylor [facility] 03:57:00 Medical Branch ACUTE CARE ARTERIAL BLOOD GAS 2022-11-12 Dominique Taylor [facility] 00:30:00 Medical Branch XR CHEST 1 VW 2022-11-11 Dominique Taylor [facility] [place] 23:02:00 Medical Branch XR KUB 2022-11-11 Dominique Taylor [facility] [place] 23:02:00 Medical Branch ACUTE CARE ARTERIAL BLOOD GAS 2022-11-11 Dominique Taylor [facility] 22:29:00 Medical Branch POCT GLUCOSE (AUTOMATED) 2022-11-11 Dominique Taylor [facility] 21:53:00 Medical Branch LOWER EXTREMITY ARTERIAL 2022-11-11 Yandel Colunga [facility] DUPLEX BILATERAL - BY 16:20:00 Medical anch VASCULAR LAB DUPLEX VENOUS LEG RIGHT - BY 2022-11-11 Amanda Daniels [facility] VASCULAR LAB 13:58:16 Medical Branch MRSA / MSSA SCREEN BY PCR, 2022-11-11 Amanda Daniels [facility] NARES 12:46:00 Medical Branch BLOOD CULTURE SCREEN 2022-11-11 Vidhya Fuentes [facility] 11:42:00 Medical Branch XR CHEST 1 VW 2022-11-11 Vidhya Fuentes [facility] [place] [facility] 10:50:00 Medical Branch XR FOOT 3+ VW BILATERAL 2022-11-11 Vidhya Fuentes [facility] 10:50:00 Medical Branch XR HIPS 2 VW RIGHT 2022-11-11 Vidhya Fuentes [facility] 10:50:00 Medical Branch MAGNESIUM 2022-11-11 Vidhya Fuentes [facility] 10:16:00 Medical Branch FREE T4 2022-11-11 Amanda Daniels [facility] [place] 10:16:00 Medical Branch COMP. METABOLIC PANEL ([id number]) 2022-11-11 [facility] 10:16:00 Medical Branch CBC WITH DIFF 2022-11-11 Vidhya Fuentes [facility] 10:16:00 Medical Branch N-TERMINAL PRO-BNP 2022-11-11 Vidhya Fuentes [facility] 10:16:00 Medical Branch ASSIGNMENT OF BENEFITS 2022-11-11 Doctor Unassmichael, [facility] 10:09:55 [facility] [place] CONSENT/REFUSAL FOR DIAGNOSIS 2022-11-11 Doctor Unassmichael, [facility] AND TREATMENT 10:09:41 [facility] [place] EXTERNAL PROVIDER RECORDS 2022-10-01 Doctor Unassigned, [facility] 05:01:00 [place] [facility] EXTERNAL PROVIDER RECORDS 2022-09-19 Doctor Unassigned, [facility] 05:01:00 [place] [facility] ASSIGNMENT OF BENEFITS 2022-09-12 Doctor Unassigned, [facility] 13:43:29 [place] RADIOLOGY DOCUMENTATION 2022-08-12 Doctor Unassigned, [facility] 06:01:00 [place] [facility] 2D ECHO W/ DOPPLER 2022-04-[address] [facility] (CW/PW/COLOR) 09:58:03 [facility] XR CHEST 1 VIEW PORTABLE / 2022-03-29 Laurie Mendieta [facility] BEDSIDE 07:47:00 [facility] MAGNESIUM 2022-03-29 Hali Rincon Chi [facility] 04:23:00 [facility] COMPREHENSIVE METABOLIC PANEL 2022-03-29 Hali Rincon [facility] 04:23:00 [facility] CBC W/PLT COUNT & AUTO 2022-03-[address] [facility] DIFFERENTIAL 04:22:00 [facility] CBC W/PLT COUNT & AUTO 2022-03-29 Cortes, Kirselam [facility] DIFFERENTIAL 04:22:00 [facility] XR CHEST 1 VIEW PORTABLE / 2022-03-[address] [facility] BEDSIDE 07:10:[address] [facility] XR CHEST 1 VIEW PORTABLE / 2022-03-[address] [facility] BEDSIDE 12:11:00 [facility] XR CHEST 1 VIEW PORTABLE / 2022-03-[address] [facility] BEDSIDE 07:09:[address] [facility] XR CHEST 1 VIEW PORTABLE / 2022-03-26 Quentin Mckeon [facility] 18:12:00 [facility] SARS-COV2/RT-PCR ([facility] & REF 2022-03-[address] [facility] LABS) 07:40:00 [facility] XR CHEST 1 VIEW PORTABLE / 2022-03-[address] [facility] BEDSIDE 07:36:[address] [facility] XR CHEST 1 VIEW PORTABLE / 2022-03-[address] [facility] BEDSIDE 06:49:[address] [facility] XR CHEST 1 VIEW PORTABLE / 2022-03-[address] [facility] BEDSIDE 08:17:[address] [facility] XR CHEST 1 VIEW PORTABLE / 2022-03-[address] [facility] BEDSIDE 07:12:[address] [facility] XR CHEST 1 VIEW PORTABLE / 2022-03-[address] [facility] BEDSIDE 07:05:[address] [facility] XR CHEST 1 VIEW PORTABLE / 2022-03-[address] [facility] BEDSIDE 09:23:[address] [facility] XR CHEST 1 VIEW PORTABLE / 2022-03-20 Italo Benitez [facility] 12:39:00 [facility] XR CHEST 1 VIEW PORTABLE / 2022-03-[address] [facility] BEDSIDE 06:55:[address] [facility] BASIC METABOLIC PANEL 2022-03-[address] Domenico [facility] 05:20:00 [facility] XR CHEST 1 VIEW PORTABLE / 2022-03-19 An[address]Laurie [facility] 13:25:00 [facility] XR CHEST 1 VIEW PORTABLE / 2022-03-[address] [facility] BEDSIDE 06:20:[address] [facility] MAGNESIUM 2022-03-19 Linda Quentin [address] [facility] 05:45:00 [facility] XR CHEST 1 VIEW PORTABLE / 2022-03-18 Anam Laurie [facility] 16:21:00 [facility] XR CHEST 1 VIEW PORTABLE / 2022-03-[address] [facility] BED[facility] 12:20:[address] [facility] XR CHEST 1 VIEW PORTABLE / 2022-03-[address] [facility] BED[facility] 09:46:[address] [facility] POCT-GLUCOSE METER 2022-03-14 Quentin Mckeon B [facility] 12:50:00 [facility] POCT-GLUCOSE METER 2022-03-14 Quentin Mckeon B [facility] 07:29:00 [facility] CT CHEST WITHOUT IV CONTRAST 2022-03-13 [address] [facility] 21:51:00 [facility] POCT-GLUCOSE METER 2022-03-13 Mckeon, Quentin B [facility] 17:14:00 [facility] XR CHEST 1 VIEW PORTABLE / 2022-03-13 Cynthia KimberleeYandel hill [facility] 16:58:00 [facility] POCT-GLUCOSE METER 2022-03-13 Mckeon, Quentin B [facility] 13:36:00 [facility] XR CHEST 1 VIEW PORTABLE / 2022-03-13 Mckeon, Quentin B [facility] 12:24:00 [facility] POCT-GLUCOSE METER 2022-03-12 Mckeon, Quentin B [facility] 23:44:00 [facility] POCT-GLUCOSE METER 2022-03-12 Mckeon, Quentin B [facility] 17:40:00 [facility] XR CHEST 1 VIEW PORTABLE / 2022-03-12 Bibyco VerYandel hill [facility] 15:08:[address] [facility] [address] CHEST WITHOUT IV CONTRAST 2022-03-12 Mckeon, Quentin B [facility] 13:54:00 [facility] POCT-GLUCOSE METER 2022-03-12 Mckeon, Quentin B [facility] 11:24:00 [facility] XR CHEST 1 VIEW PORTABLE / 2022-03-[address] [facility] 02:58:00 [facility] XR CHEST 1 VIEW PORTABLE / 2022-03-11 Mckeon, Quentin B [facility] 20:13:00 [facility] XR CHEST 1 VIEW PORTABLE / 2022-03-11 Mckeon, Quentin B [facility] 12:06:00 [facility] XR CHEST 1 VIEW PORTABLE / 2022-03-11 Nelson Song [facility] 00:53:00 [facility] POCT-GLUCOSE METER 2022-03-10 Mckeon, Quentin B [facility] 16:09:00 [facility] POCT-GLUCOSE METER 2022-03-10 Mckeon, Quentin B [facility] 10:54:00 [facility] ECG 12-LEAD 2022-03-09 Unknown, Hl7 Doctor [facility] 23:30:24 [facility] ECG 12-LEAD 2022-03-09 Unknown, Hl7 Doctor [facility] 23:30:24 [facility] ECG 12-LEAD 2022-03-09 Unknown, Hl7 Doctor [facility] 23:27:25 [facility] XR CHEST 1 VIEW PORTABLE / 2022-03-09 Du, Hali Chi Caitlyn [facility] 23:26:00 [facility] US ABDOMEN LIMITED 2022-03-[address] [facility] 21:25:00 [facility] APTT 2022-03-[address] [facility] 20:11:00 [facility] HIGH SENSITIVITY TROPONIN I 2022-03-09 Sergey, Hali Chi Caitlyn [facility] 17:50:00 [facility] APTT 2022-03-[address] [facility] 13:06:00 [facility] HIGH SENSITIVITY TROPONIN I 2022-03-[address] [facility] 12:02:00 [facility] ECG 12-LEAD 2022-03-09 Unknown, Hl7 Doctor [facility] 10:45:00 [facility] ECG 12-LEAD 2022-03-09 Unknown, Hl7 Doctor [facility] 10:43:41 [facility] ECG 12-LEAD 2022-03-09 Unknown, Hl7 Doctor [facility] 10:43:41 [facility] 2D ECHO W/ DOPPLER 2022-03-[address] [facility] (CW/PW/COLOR) 09:06:00 [facility] HEPATITIS PANEL, ACUTE 2022-03-[address] [facility] 07:27:00 [facility] POCT-GLUCOSE METER 2022-03-[address] [facility] 07:25:00 [facility] APTT 2022-03-[address] [facility] 03:21:00 [facility] CBC W/PLT COUNT & AUTO 2022-03-[address] [facility] DIFFERENTIAL 03:21:00 [facility] COMPREHENSIVE METABOLIC PANEL 2022-03-[address] [facility] 03:21:00 [facility] HIGH SENSITIVITY TROPONIN I 2022-03-[address] [facility] 03:21:00 [facility] MAGNESIUM 2022-03-[address] [facility] 03:21:00 [facility] B-TYPE NATRIURETIC FACTOR 2022-03-[address] [facility] (BNP) 03:21:00 [facility] CBC W/PLT COUNT & AUTO 2022-03-[address] DIFFERENTIAL 03:21:00 [facility] XR CHEST 1 VIEW PORTABLE / 2022-03-09 Quentin Mckeon [facility] 02:51:00 [facility] ECG 12-LEAD 2022-03-09 Unknown, Hl7 Doctor [facility] 02:35:02 [facility] ECG 12-LEAD 2022-03-09 Unknown, Hl7 Doctor [facility] 02:34:18 [facility] ECG 12-LEAD 2022-03-[address] [facility] 02:32:32 [facility] ECG 12-LEAD 2022-03-09 Unknown, Hl7 Doctor [facility] 02:32:32 [facility] PROTHROMBIN TIME/INR 2022-03-[address] [facility] 00:42:00 [facility] APTT 2022-03-[address] [facility] 00:42:00 [facility] CYSTATIN C WITH EGFR 2022-03-[address] [facility] 00:42:00 [facility] VITAMIN B12 2022-03-[address] [facility] 00:42:00 [facility] IRON, TIBC, % SAT. (WITHOUT 2022-03-[address] [facility] FERRITIN) 00:42:00 [facility] FERRITIN 2022-03-[address] [facility] 00:42:00 [facility] BLOOD CULTURE 2022-03-[address] [facility] 00:25:00 [facility] POCT-GLUCOSE METER 2022-03-[address] [facility] 00:23:00 [facility] SARS-COV2/RT-PCR (SL[facility] & REF 2022-03-[address] [facility] LABS) 23:40:00 [facility] BLOOD GAS, VENOUS 2022-03-[address] [facility] 23:27:00 [facility] COMPREHENSIVE METABOLIC PANEL 2022-03-[address] [facility] 23:26[facility]00 [facility] CBC W/PLT COUNT & AUTO 2022-03-[address] [facility] DIFFERENTIAL 23:26:00 [facility] HIGH SENSITIVITY TROPONIN I 2022-03-[address] [facility] 23:26:00 [facility] MAGNESIUM 2022-03-[address] [facility] 23:26:00 [facility] LACTIC ACID, VENOUS 2022-03-[address] [facility] 23:26:00 [facility] LIPID PANEL 2022-03-[address] [facility] 23:26:00 [facility] CBC W/PLT COUNT & AUTO 2022-03-[address] DIFFERENTIAL 23:26:00 [facility] XR CHEST 1 VIEW PORTABLE / 2022-03-08 Peyman Gonzalez [facility] 22:59:00 [facility] VASCULAR DIAGRAM -SCAN 2022-03-08 Provider, Default [facility] 00:00:00 [facility] PERMANENT LAB REPORT - SCAN 2022-03-08 Provider, Default [facility] 00:00:00 [facility] CARDIAC CATH REPORT - SCAN 2022-03-08 Provider, Default [facility] 00:00:00 [facility]anning [facility] ALBUMIN 2020-12-04 [facility] 10[facility]05[facility]00 [facility] MAGNESIUM 2020-12-04 [facility]00 [facility] BASIC METABOLIC PANEL (NA, K, 2020-12-04 [facility], CO2, GLUCOSE, BUN, 10:05:00 Medical B ranch CREATININE, CA) CBC WITH DIFF 2020-12-04 Gerber [facility] [place]as 10:05:00 [facility] Branch MAGNESIUM 2020-12-03 Gerber [facility] xas 11:08:00 [facility] BASIC METABOLIC PANEL (NA, K, 2020-12-03 Nelson [facility], CO2, GLUCOSE, BUN, 11:08:00 Medical B ranch CREATININE, CA) CBC WITH DIFF 2020-12-03 Gerber [facility] 11:08:00 Medical Branch PHOSPHORUS 2020-12-01 Blake, [facility] xas 09:38:00 Medical Branch MAGNESIUM 2020-12-01 [facility] xas 09:38:00 [facility] BASIC METABOLIC PANEL (NA, K, 2020-12-01 [facility], CO2, GLUCOSE, BUN, 09:38:00 Medical B ran CREATININE, CA) CBC WITH DIFF 2020-12-01 [facility] xa 09:38:00 Medical Branch SPUTUM CULTURE 2020-11-29 Jon [facility] 00:25:00 Medical Branch AC PANEL 21 + LACTIC ACID 2020-11-28 Viet [facility] 20:07:00 Medical Branch URINALYSIS 2020-11-28 [facility] 09:43:00 [facility] PNEUMOCOCCAL ANTIGEN 2020-11-28 Viet [facility] 09:43:00 [facility] MAGNESIUM 2020-11-28 [facility] HEPATIC FUNCTION PANEL 2020-11-28 [id number] (ALB,T.PRO,BILI 09:25:00 Medical Branch T,BU/BC,ALT,AST,ALK PHOS) BASIC METABOLIC PANEL (NA, K, 2020-11-28 Irma Webb [facility] CL, CO2, GLUCOSE, BUN, 09:25:00 Medical B ranch CREATININE, CA) CBC WITH DIFF 2020-11-28 [facility] 09:25[facility]00 [facility] AC PANEL 21 + LACTIC ACID 2020-11-28 Viet [facility] 09:25:00 Medical Branch XR RIBS 4+ VW BILATERAL 2020-11-28 [facility] 05:40:20 Medical Branch EXTERNAL PROVIDER RECORDS 2020-11-28 Doctor Unassigned, [facility] 05:01:00 [place] [facility] AC PANEL 20 + LACTIC ACID 2020-11-28 Yemi Ford [facility] 03:42:00 Medical Branch ACUTE CARE VENOUS BLOOD GAS 2020-11-28 Irma Webb [facility] 00:44:00 Medical Branch PROCALCITONIN 2020-11-27 Irma Webb [facility] xa 23:38:00 Medical Branch TROPONIN I 2020-11-27 Irma Webb [facility] xa 23:00:00 Medical Branch ACUTE CARE ARTERIAL BLOOD GAS 2020-11-27 Irma Webb Un [facility] 23:00:00 Medical Branch MRSA / MSSA SCREEN BY PCR, 2020-11-27 Irma Webb [facility] NARES 23:00:00 Medical Branch HB ECG ROUTINE & RHYTHM STRIP 2020-11-27 Irma Webb [facility] 22:54:06 Medical Branch BLOOD CULTURE SCREEN 2020-11-27 Amelia Ziegler [facility] 16:29:00 Medical Branch XR CHEST 1 VW 2020-11-27 Amelia Ziegler [facility] xa 16:23:02 Medical Branch COVID-19 (ID NOW RAPID 2020-11-27 Amelia Ziegler [facility] TESTING) 15:48:00 Medical Branch LAB ONLY COVID INTERPRETATION 2020-11-27 Amelia Ziegler Un [facility] 15:48:00 Medical Branch CBC WITH DIFF 2020-11-27 Amelia Ziegler [facility] xa 15:44:00 Medical Branch N-TERMINAL PRO-BNP 2020-11-27 Irma Webb [facility] 15:44:00 [facility] AC PANEL 21 + LACTIC ACID 2020-11-27 Amelia Ziegler [facility] 15:44:00 Medical Branch BLOOD CULTURE SCREEN 2020-11-27 Amelia Ziegler [facility] 15:44:00 Medical Branch GAMMA GLUTAMYLTRANSFERASE 2020-11-27 Irma Webb [facility] 15:44:00 Medical Branch TROPONIN I 2020-11-27 Amelia Ziegler [facility] xa 15:44:00 Medical Branch COMP. METABOLIC PANEL (79906) 2020-11-27 Amelia Ziegler [facility] 15:44:00 Medical Branch CONSENT/REFUSAL FOR DIAGNOSIS 2020-11-27 Doctor Unassigned, [facility] AND TREATMENT 15:18:[address] [place] [facility] AGREEMENTS AUTHORIZATIONS AND 2020-11-27 Doctor Unassigned, [facility] IRREVOCABLE ASSIGNMENTS (FORM 05:01:00 [place] Ms dical Branch 2000) C-REACTIVE PROTEIN 2020-11-13 Luz Maria Jessica [facility] 00:29:00 [facility] N-TERMINAL PRO-BNP 2020-11-13 Hugh [facility] 00:29:00 [facility] PROCALCITONIN 2020-11-13 Luz Maria Jessica [facility] xas 00:29:00 [facility] TRANSTHORACIC ECHO (TTE) 2020-11-12 [facility] 17:46[facility]08 [facility] LOWER EXTREMITY ARTERIAL 2020-11-12 [facility] DUPLEX BILATERAL - BY 16:02:28 Medical anch VASCULAR LAB BASIC METABOLIC PANEL (NA, K, 2020-11-12 Clarence Bach [facility] CL, CO2, GLUCOSE, BUN, 13:56:00 [facility] ran CREATININE, CA) CBC WITH DIFF 2020-11-12 Mikala [facility] xa 13:55:00 [facility] BLOOD CULTURE SCREEN 2020-11-12 Jeremiah [facility] 11:17:00 [facility] BLOOD CULTURE SCREEN 2020-11-12 Hugh [facility] 11:12:00 [facility] THYROID STIMULATING HORMONE 2020-11-11 Amanda Daniels [facility] 22:51:00 [facility] VANCOMYCIN TROUGH 2020-11-11 [facility] CT THORAX W CONTRAST 2020-11-10 Jeremiah [facility] 18:02:33 [facility] URINALYSIS 2020-11-10 Vidhya Fuentes [facility] ex 09:14:00 Medical Branch XR CHEST 1 VW 2020-11-10 Vidhya Fuentes [facility] ex 08:57:43 [facility] BLOOD CULTURE SCREEN 2020-11-10 Vidhya Fuentes [facility] 08:45:00 Medical Branch BLOOD CULTURE WORKUP 2020-11-10 Vidhya Fuentes [facility] 08:45:00 Medical Branch GRAM NEGATIVE BLOOD PATHOGENS 2020-11-10 Vidhya Fuentes [facility] DNA PROBE-AEROBIC 08:45:00 Medical Branch BLOOD CULTURE SCREEN 2020-11-10 Vidhya Fuentes [facility] 08:43:00 Medical Branch LACTIC ACID WHOLE BLOOD 2020-11-10 Vidhya Fuentes [facility] 08:43:00 Medical Branch BLOOD CULTURE WORKUP 2020-11-10 [facility] 08:43:00 [facility] FREE T4 2020-11-10 [facility] 08:42:00 Medical Branch COMP. METABOLIC PANEL ([id number]) 2020-11-10 Vidhya Fuentes [facility] 08:42:00 Medical Branch CBC WITH DIFF 2020-11-10 Vidhya Fuentes [facility] exas 08:42:00 Medical Branch FREE T3 2020-11-10 [facility] 08:42:00 [facility] Branch COVID-19 (ID NOW RAPID 2020-11-10 Vidhya Fuentes [facility] TESTING) 08:42:00 Medical Branch LAB ONLY COVID INTERPRETATION 2020-11-10 Vidhya Fuentes [facility] 08:42:00 Medical [place] HB ECG ROUTINE & RHYTHM STRIP 2020-11-10 Vidhya Fuentes [facility] 08:40:08 Medical Branch NOTICE OF PRIVACY PRACTICES 2020-11-10 Doctor Unassmichael, [facility] 08:36:16 [place] [facility] [place] CONSENT/REFUSAL FOR DIAGNOSIS 2020-11-10 Doctor Unassigned, [facility] AND TREATMENT 08:35:[address] [place] [facility] Plan of Care Planned Activity Planned Date Details Comments Source Future Scheduled 2023-02-06 Influenza Vaccine (#1) [facility] 00:00:00 [code = Influenza Medical Ce nter Vaccine (#1)] Future Scheduled 2023-02-06 Influenza Vaccine (#1) C [...] Test 00:00:00 - PCV) [code = Medical [facility] r PNEUMOCOCCAL 65+ YRS (1 - PCV)] [...] colon Medical Ce nter (procedure) [code = 570523031] Future Scheduled 1949 DXA SCAN [code = DXA [facility] Test 00:00:00 SCAN] Medical Center Future Scheduled 1949 Screening for malignant [facility] Test 00:00:00 neoplasm of colon Medical Ce nter (procedure) [code = 671848520] Future Scheduled 1949 Screening for malignant [facility] Test 00:00:00 neoplasm of colon Medical Ce nter (procedure) [code = 711437859] Future Scheduled 1949 Sigmoidoscopy [code = [facility] 1949 Screening for malignant [facility] Test 00:00:00 neoplasm of breast Medical C enter (procedure) [code = 563829127] Future Scheduled 1949 CT Colonography (combo) [facility] Test 00:00:00 [code = CT Colonography [facility] (combo)] Future Scheduled 1949 Screening for malignant [facility] Test 00:00:00 neoplasm of colon Medical Ce nter (procedure) [code = 181310079] Future Scheduled 1949 Screening for malignant [facility] Test 00:00:00 neoplasm of breast Medical C enter (procedure) [code = 061934468] Future Scheduled 1949 CT Colonography (combo) [facility] Test 00:00:00 [code = CT Colonography [facility] (combo)] Future Scheduled 1949 Screening for malignant [facility] Test 00:00:00 neoplasm of colon Medical Ce nter (procedure) [code = 219363187] Future Scheduled 1949 Screening for malignant [facility] Test 00:00:00 neoplasm of colon Medical Ce nter (procedure) [code = 057017227] Future Scheduled 1949 DXA SCAN [code = DXA [facility] Test 00:00:00 SCAN] [facility] Future Scheduled 1949 Screening for malignant [facility] Test 00:00:00 neoplasm of colon Medical Ce nter (procedure) [code = 920311521] Future Scheduled 1949 Screening for malignant [facility] Test 00:00:00 neoplasm of colon Medical Ce nter (procedure) [code = 566643120] Future Scheduled 1949 Sigmoidoscopy [code = [facility] 00:00:00 Sigmoidoscopy] Medical Cente r Future Scheduled 1949 Screening for malignant [facility] Test 00:00:00 neoplasm of breast Medical C enter (procedure) [code = 010896204] Future Scheduled 1949 CT Colonography (combo) [facility] Test 00:00:00 [code = CT Colonography [facility] (combo)] Future Scheduled 1949 Screening for malignant [facility] Test 00:00:00 neoplasm of colon Medical Ce nter (procedure) [code = 186783216] Future Scheduled 1949 Screening for malignant [facility] Test 00:00:00 neoplasm of colon Medical Ce nter (procedure) [code = 038590697] Future Scheduled 1949 DXA SCAN [code = DXA [facility] Test 00:00:00 SCAN] [facility] Future Scheduled 1949 Screening for malignant [facility] Test 00:00:00 neoplasm of colon Medical Ce nter (procedure) [code = 104542504] Future Scheduled 1949 Screening for malignant [facility] Test 00:00:00 neoplasm of colon Medical Ce nter (procedure) [code = 916266954] Future Scheduled 1949 Sigmoidoscopy [code = [facility] 00:00:00 Sigmoidoscopy] [facility] Future Scheduled 1949 Screening for malignant [facility] Test 00:00:00 neoplasm of breast Medical C enter (procedure) [code = 751861236] Future Scheduled 1949 CT Colonography (combo) [facility] Test 00:00:00 [code = CT Colonography [facility] (combo)] Future Scheduled 1949 Screening for malignant [facility] Test 00:00:00 neoplasm of colon Medical Ce nter (procedure) [code = 069834832] Future Scheduled 1949 Screening for malignant [facility] Test 00:00:00 neoplasm of colon Medical Ce nter (procedure) [code = 568656185] Future Scheduled 1949 DXA SCAN [code = DXA [facility] Test 00:00:00 SCAN] [facility] Future Scheduled 1949 Screening for malignant [facility] Test 00:00:00 neoplasm of colon Medical Ce nter (procedure) [code = 570311399] Future Scheduled 1949 Screening for malignant [facility] Test 00:00:00 neoplasm of colon Medical Ce nter (procedure) [code = 853054809] Future Scheduled 1949 Sigmoidoscopy [code = [facility] 00:00:[facility] Sigmoidoscopy] Medical Cente r Future Scheduled 1949 Screening for malignant [facility] Test 00:00:00 neoplasm of breast Medical C enter (procedure) [code = 620662305] Future Scheduled 1949 CT Colonography (combo) [facility] Test 00:00:00 [code = CT Colonography [facility] (combo)] Future Scheduled 1949 Screening for malignant [facility] Test 00:00:00 neoplasm of colon Medical Ce nter (procedure) [code = 374366337] Future Scheduled 1949 Screening for malignant [facility] Test 00:00:00 neoplasm of colon Medical Ce nter (procedure) [code = 667250250] Future Scheduled 1949 DXA SCAN [code = DXA [facility] Test 00:00:00 SCAN] [facility] Future Scheduled 1949 Screening for malignant [facility] Test 00:00:00 neoplasm of colon Medical Ce nter (procedure) [code = 131503368] Future Scheduled 1949 Screening for malignant [facility] Test 00:00:00 neoplasm of colon Medical Ce nter (procedure) [code = 485133110] Future Scheduled 1949 Sigmoidoscopy [code = [facility] 00:00:[facility] Sigmoidoscopy] Medical Cente r Encounters Start End Encounter Admission Attending Care Care Encounter Source Date/Time Date/Time Type Type Clinicians Facility Department ID 2020-12-14 Inpatient ER ADHI, [facility] Medical ICU [id number] [facility] 20:10:00 CHAO 2023-01-09 2023-01-09 Outpatient SFA SFA [id number] 08:39:28 08:39:28 [id number] F Shiva 2023-01-07 2023-01-07 Outpatient SFA SFA [id number] 11:36:22 11:36:22 [id number] F Shiva 2022-12-31 2022-12-31 Outpatient SFA SFA [id number] 14:25:15 14:25:15 [id number] F Shiva 2022-11-17 2022-11-17 Transition RADHA Paula [id number] Univers 00:00:00 00:00:00 of Care Lele BRIGGSY [id number] [id number] [id number] [facility] [address] Branch 2022-11-11 2022-11-14 Inpatient X JEREMIAH [facility] YEHUDA [id number] Univers 04:50:00 16:36:00 AMANDA ity of [facility] 2022-11-11 2022-11-14 [facility] Vidhya Fuentes [facility] 1.2.840. [id number] Univers 04:50:00 16:36:00 Encounter Amanda Daniels [id number] ity of [place] 4.2.7.2.686 [facility] [id number] [facility] [address] [place] 2022-10-17 2022-10-17 Outpatient SFA [facility] [id number] 14:30:58 14:30:58 [id number] F Shiva 2022-10-10 2022-10-10 [facility] [id number] Univers 11:15:00 11:30:00 Visit [facility] [id number] it y [facility] 4.2.7.2.686 Juni as DANIELLE?BLEA [phone] Ms [address] MEDICAL OFFICE [facility] 2022-10-10 2022-10-10 Outpatient R DARCI [facility] [id number] Univers 11:15:00 11:20:57 LACY knight [facility] 2022-10-01 2022-10-01 Orders Doctor RANGEL [id number] Univers 00:00:00 00:00:00 Only Unassigned, TAMAR 350.1.13.10 ity of [place] [facility] 4.2.7.2.686 Juni as [id number] [facility] [address] [place] 2022-09-19 2022-09-19 Orders Doctor CLAIRE [id number].[id number] Univers 00:00:00 00:00:00 Only Unassigned, TAMAR 350.1.13.10 ity of [place] [facility] 4.2.7.2.686 Juni as [phone] [address] 2022-09-12 2022-09-12 [facility] [id number] Univers 08:45:00 09:26:37 MARIA GUADALUPE ity of [facility] 2022-09-12 2022-09-12 Office [facility] [id number] Univers 08:45:00 09:26:37 Visit Maria Guadalupe MICHEL 350.1.13.10 it y of [place] 4.2.7.2.686 Juni as DANIELLE?BLEA [phone] [address] OFFICE [facility] 2022-09-12 2022-09-12 Orders Doctor CLAIRE [id number] Univers 00:00:00 00:00:00 Only Unassigned, TAMAR 350.1.13.10 ity of [place] [facility] 4.2.7.2.686 Juni as [id number] [address] 2022-08-12 2022-08-12 Telephone [facility] [id number] Univers 00:00:00 00:00:00 Maria Guadalupe Blood HEALTH 350.1.13.10 it y of [place] 4.2.7.2.686 Juni as DANIELLE?BLEA [id number] [address] 2022-08-12 2022-08-12 Orders Doctor CLAIRE [id number] Univers 00:00:00 00:00:00 Only Unassigned, TAMAR 350.1.13.10 ity of [place] [facility] 4.2.7.2.686 Juni as [id number] [address] 2022-08-11 2022-08-11 [facility] 1.2.840.114 [id number] Univers 16:16:00 23:59:00 Encounter Maria Guadalupe MICHELE'S 350.1.13.10 it[place] [id number] [place] [id number] [facility] 2022-08-11 2022-08-11 Outpatient [facility] OUT [id number] Univers 00:00:00 23:59:00 MARIA GUADALUPE knight [facility] 2022-08-11 2022-08-11 Telephone Aidee [facility] 1.2.840.114 [id number] Univers 00:00:00 00:00:00 Maria Guadalupe MICHEL 350.1.13.10 it y of [place] 4.2.7.2.686 Juni as DANIELLE?BLEA [phone] [address] MEDICAL OFFICE BUILDING 2022-08-10 2022-08-10 Hospital Aidee [facility]. 1.2.840.114 [id number] Univers 14:02:00 23:59:00 Encounter Maria Guadalupe MICHELE'S 350.1.13.10 it[place] [id number] [address] 2022-08-10 2022-08-10 [facility] [id number] Univers 00:00:00 23:59:00 MARIA GUADALUPE knight [facility] 2022-03-08 2022-03-29 Hospital ER Quentin Mckeon [facility] [id number] [facility] 22:22:00 13:40:00 Encounter Martha Conway [facility] 2022-03-08 2022-03-29 Inpatient ER ZORAIDA [facility] Medical ICU [id number] [facility] 22:22:00 13:40:00 MARTHA 2022-03-27 2022-03-27 Orders Quentin Mckeon [facility] [id number] [facility] 00:[facility]00 00:00:00 Only B [facility] 2022-03-09 2022-03-09 Orders [facility] [id number] 00:00:00 00:00:00 Only [facility] 2020-12-05 2020-12-05 Transition Radha Paula .2.840.114 [id number] Univers 00:00:00 00:00:00 of Care Lele Ingram 350.1.13.10 [place].2.[place] [id number] [facility] [address] 2020-12-05 2020-12-05 Transition Radha Paula 1.2.840.114 [id number] 00:00:00 00:00:00 of Care Lele Ingram 350.1.13.10 [place] 4.2.7.2.686 [id number] 403 2020-11-27 2020-12-04 [facility] 1.2.840.1 14 [id number] Univers 10:20:00 19:30:00 Encounter Kashif Strongy 350.1.13.10 ity [facility] 4.2.7.2 .686 [place] [id number] [facility] [address] 2020-11-27 2020-12-04 [facility] Roach 1.2.840.1 14 [id number] 10:20:00 19:30:00 Encounter Kashif Strong 350.1.13.10 [facility] 4.2.7.2 .686 [id number] 100 2020-11-27 2020-11-27 Emergency X Amelia [facility] ERT [id number] Univers 10:20:00 10:20:00 ity of [facility] 2020-11-27 2020-11-27 Orders Doctor RANGEL 1.2.840.114 [id number] Univers 00:00:00 00:00:00 Only Unassigned, TAMAR 350.1.13.10 ity of [place] [facility] 4.2.7.2.686 [place] [id number] [facility] [address] 2020-11-27 2020-11-27 Orders Doctor RANGEL 1.2.840.114 [id number] 00:00:00 00:00:00 Only Unassigned, TAMAR 350.1.13.10 [place] [facility] 4.2.7.2.686 [id number] 009 2020-11-14 2020-11-14 Transition Radha Paula 1.2.840.114 [id number] Univers 00:00:00 00:00:00 of Care Lele Briggsy 350.1.13.10 ity of [place] 4.2.7.2.686 [facility] [id number] [facility] [address] 2020-11-14 2020-11-14 Transition Radha Paula 1.2.840.114 [id number] 00:00:00 00:00:00 of Care Lele Ingram 350.1.13.10 [place] 4.2.7.2.686 [id number] 403 2020-11-10 2020-11-13 [facility] 1.2.840. 114 [id number] [facility] 03:31:00 16:48:00 Encounter Kacidacia Clarence Coronado 350.1.13.10 ity of [place] Daniels 4.2.7.2.686 [facility] [id number] [place] [id number] [place] 2020-11-10 2020-11-13 [facility] 1.2.840. 114 [id number] 03:31:00 16:48:00 Encounter MikalaEddClarencemoraima Coronado 350.1.13.10 Amanda Daniels 4.2.7.2.[address] [place] [address] [id number] [facility] 2020-11-10 2020-11-10 Emergency X [facility] ERT [id number] Univers 03:31:00 03:31:00 [facility] Results Test Description Test Time Test Comments Results Result Comments Source POCT GLUCOSE (AUTOMATED) 2022-11-13 23:17:17 Test Item Value Reference Range Interpretation Comme nts POCT GLU (test code = 8391672269) 131 mg/dL 70-110 H Lab Interpretation (test code = 27988-3) Abnormal [facility] GLUCOSE (AUTOMATED)2022-11-13 17:14:43 Test Item Value Reference Range Interpretation Comments POCT GLU (test code = 1771349807) 112 mg/dL 70-110 H Lab Interpretation (test code = Abnormal 93704-6) [facility] GLUCOSE (AUTOMATED)2022-11-13 05:09:46 Test Item Value Reference Range Interpretation Comments POCT GLU (test code = 4736336978) 130 mg/dL 70-110 H Lab Interpretation (test code = Abnormal 30166-9) [facility] [id number] 23:34:29 Test Item Value Reference Range Interpretation Comments TSH (test code = 2.87 See_Comment Biotin has been 7416126552) reported to cau se a negative bias, interpret resul ts relative to pat ient's use of biotin. [Automated mess age] The system [employer] generated this result transmitted ref erence range: 0.45 - 4 .70 mIU/L. The refe rence range was not u sed to interpret this result as normal/abnor mal. Lab Interpretation (test Normal code = 32942-4) [facility] [id number] 23:19:04 Test Item Value Reference Range Interpretation Comments FREE T4 (test code = 1.07 See_Comment [Autom ated message] 7129640135) The system [employer] generated this result transmitted ref erence range: 0.78 - 2 .20 ng/dL:. The ref erence range was not u sed to interpret this result as normal/abnor mal. Lab Interpretation (test Normal code = 51770-1) [facility]2023-06-07 19:19:07 Test Item Value Reference Range Interpretation Comments MAGNESIUM (test code = 4279773772) 2.6 mg/dL 1.7-2.4 H Lab Interpretation (test code = Abnormal 46468-8) [facility] METABOLIC PANEL (NA, K, CL, CO2, GLUCOSE, BUN, CREATININE, CA)2022-11-12 19:19:02 Test Item Value Reference Range Interpretation Comments NA (test code = 138 mmol/L 135-145 4688079992) K (test code = 4.5 mmol/L 3.5-5.0 7222002136) CL (test code = 101 mmol/L 98-108 4684499758) CO2 TOTAL (test code = 31 mmol/L 23-31 4684403270) AGAP (test code = 6 2-16 8794956964) BUN (test code = 57 mg/dL 7-23 H 7492412098) GLUCOSE (test code = 113 mg/dL 70-110 H 1749073174) CREATININE (test code = 0.90 mg/dL 0.50-1.04 3342175106) CALCIUM (test code = 8.5 mg/dL 8.6-10.6 L 0881772451) eGFR (test code = 61.4 mL/min/1.73m2 0869558539) CHRISTINE (test code = CHRISTINE) Association of [...] tests). Lab Interpretation Abnormal (test code = 97325-9) [facility] Arterial Blood Gas.2022-11-11 22:32:36 Test Item Value Reference Range Interpretation Comments PH (test code = 2) 7.19 7.35-7.45 LL PCO2 (test code = 85 See_Comment H [Automate d message] 3849404053) The system [employer] generated this result transmitted ref erence range: 35 - 45 mmHg. The reference r crispin was not used to interpret this result as normal/abnor mal. PO2 (test code = 454 See_Comment H [Automated message] 2444301741) The system [employer] generated this result transmitted ref erence range: 80 - 100 mmHg. The reference r crispin was not used to interpret this result as normal/abnor mal. HCO3 (test code = 32 See_Comment H [Automate d message] 7591478036) The system [employer] generated this result transmitted ref erence range: 22 - 26 mEq/L. The reference r crispin was not used to interpret this result as normal/abnor mal. BE (test code = 0.5 See_Comment [Automated message] 8082198545) The system [employer] generated this result transmitted ref erence range: -3.0 - 3 .0 mEq/L. The refe rence range was not u sed to interpret this result as normal/abnor mal. Lab Interpretation (test Abnormal code = 32703-6) [facility])2022-11-11 22:04:37 Test Item Value Reference Range Interpretation Comments POCT GLU (test code = 7054462788) 122 mg/dL 70-110 H Lab Interpretation (test code = Abnormal 74833-9) [facility] WITH [id number] 11:04:52 Test Item Value Reference Range Interpretation Comments WBC (test code = 16.98 See_Comment H [Automated 3290-2) message] The system which generated this result transmit cristhian reference range : 4.30 - 11.10 10*3/?L. The reference range was not used to interpret this result as normal/abnormal . RBC (test code = 4.23 See_Comment [Automated 599-8) message] The system which generated this result [...] RDW-SD (test code = 47.5 fL 39.0-49.9 01018-6) RDW-CV (test code = 14.3 % 12.0-15.5 788-0) PLT (test code = 273 See_Comment [Automated 777-3) message] The system which generated this result transmit cristhian reference range : 166 - 358 10*3/ ?L. The reference range was not u sed to interpret th is result as normal/abnormal . MPV (test code = 9.6 fL 9.5-12.9 58392-0) NRBC/100 WBC (test 0.0 See_Comment [Automat ed code = 7560716833) message] The system which generated this result transmit cristhian reference range : 0.0 - 10.0 /100 WBCs. The reference range was not used to interpret this result as normal/abnormal . NRBC x10^3 (test code See_Comment [Auto mated = 4248227325) message] The system which generated this result transmit cristhian reference range : 10*3/?L. The reference range was not used to interpret this result as normal/abnormal . GRAN MAT (NEUT) % 86.9 % (test code = 770-8) IMM GRAN % (test code 1.50 % = 7333738482) LYMPH % (test code = 2.9 % 736-9) MONO % (test code = 8.0 % 5905-5) EOS % (test code = 0.3 % 713-8) BASO % (test code = 0.4 % 706-2) GRAN MAT x10^3(ANC) 14.76 10*3/uL 1.88-7.09 H (test code = 0926938604) IMM GRAN x10^3 (test 0.26 10*3/uL 0.00-0.06 H code = 5826247180) LYMPH x10^3 (test code 0.49 10*3/uL 1.32-3.29 L = 731-0) MONO x10^3 (test code 1.36 10*3/uL 0.33-0.92 H = 742-7) EOS x10^3 (test code = 0.05 10*3/uL 0.03-0.39 711-2) BASO x10^3 (test code 0.06 10*3/uL 0.01-0.07 = 704-7) Lab Interpretation Abnormal (test code = 17051-7) [facility] [id number] 10:57:32 Test Item Value Reference Range Interpretation Comments NT-proBNP (test code = 380 pg/mL <=125 H 9950952313) CHRISTINE (test code = CHRISTINE) Biotin has been reported to cause a negative bias, interpret results relative to patient's use of biotin. Lab Interpretation (test Abnormal code = 10276-5) [facility]2023-06-06 10:49:31 Test Item Value Reference Range Interpretation Comments MAGNESIUM (test code = 5151688347) 2.7 mg/dL 1.7-2.4 H Lab Interpretation (test code = Abnormal 57148-2) [facility]villeCOMP. METABOLIC PANEL (80325)2022-11-11 10:49:11 Test Item Value Reference Range Interpretation Comments NA (test code = 137 mmol/L 135-145 3034937733) K (test code = 4.7 mmol/L 3.5-5.0 2845052208) CL (test code = 97 mmol/L 98-108 L 5778278045) CO2 TOTAL (test code = 32 mmol/L 23-31 H 9913815155) AGAP (test code = 8 2-16 8849875425) BUN (test code = 53 mg/dL 7-23 H 5759117649) GLUCOSE (test code = 130 mg/dL 70-110 H 3563140456) CREATININE (test code = 1.03 mg/dL 0.50-1.04 2044930737) TOTAL BILI (test code = 0.5 mg/dL 0.1-1.7 0063430205) CALCIUM (test code = 9.1 mg/dL 8.6-10.6 1384777072) T PROTEIN (test code = 6.7 g/dL 6.3-8.2 4392905078) ALBUMIN (test code = 3.5 g/dL 3.5-5.0 9850309801) ALK PHOS (test code = 106 U/L 34-122 7451044316) ALTv (test code = 32 U/L 5-35 1742-6) AST(SGOT) (test code = 49 U/L 13-40 H 6863869456) eGFR (test code = 52.5 mL/min/1.73m2 0848153223) CHRISTINE (test code = CHRISTINE) Association of [...] tests). Lab Interpretation Abnormal (test code = 20464-0) [facility]2022-11-22 12:31:02 Test Item Value Reference Range Interpretation Comments MAGNESIUM (BEAKER) (test code = 2.0 mg/dL 1.6-2.6 627) BASIC METABOLIC [id number] 08:50:55 Test Item Value Reference Range Interpretation [...] appl icable for dialysis patien ts BLOOD [id number] 11:01:12 Test Item Value Reference Range Interpretation Comments CULTURE (BEAKER) (test No growth in 5 days code = 1095) SARS-COV2/RT-PCR ([facility])2022-03-30 11:31:45 Test Item Value Reference Range Interpretation Comments SARS-COV2/RT-PCR (test Negative Not Detected, Negative, code = 6631181) See external report for linked test SARS-COV-[address] [facility] JESSICA (test code = 7775959) Negative result for this test determines that [...] of the Act.Fact Sheet for Healthcare Prov iders:https://www.[employer]/sites/default/files/product/documents/Fact_Sheet_HC _Qoglrxeda_Movc_YORC-HvD-8.pdfFact Sheet for Healthcare Patients:https://www.[employer]/sites/default/files/product/docume nts/Wrgn_Inybf_Fezajvco_Xhnm_VWDC-XsB-6.pdfPerforming Laboratory:[facility], [place] [address]TES, CHEST, 1 VIEW, NON [id number] 13:36:00 [facility] : 1950 Sex: FFINAL REPORT [...] [place] Verified Date/Time: 03/29/2022 13:36:13 Reading Location: [address] Transitional Reading Room Electronically signedby: TEDDY LEBLANC MD on 03/29/2022 01:36 PM COMPREHENSIVE METABOLIC [id number] 05:29:56 Test Item Value Reference Range Interpretation [...] not appl icable for dialysis patien ts Operations Dispatcher ID - [id number] 05:29:56 Test Item Value Reference Range Interpretation Comments MAGNESIUM (BEAKER) (test code = 2.1 mg/dL 1.6-2.6 627) Operations Dispatcher ID - [id number] W/PLT COUNT & AUTO [id number] 04:47:02 Test Item Value Reference Range Interpretation [...] PERCENT (BEAKER) (test code = 2801) SARS-CoV2/RT-PCR ([facility])2022-03-28 17:05:17 Test Item Value Reference Range Interpretation Comments SARS-COV2/RT-PCR Negative Negative The SARS-Co V-2 (test code = target nucleic acids 29569-8) are not detecte d in this specimen. [...] from individuals suspected of COVID-[address] [facility] ider. SARS-COV-2 [facility] dicca (test code = [address] [place] [address]) [place] [address] ph: [phone] CHRISTINE (test code = This test has [...] revoked sooner. Fact Sheet for Healthcare Providers: https://www.[employer]/Documents/Xper t%20Xpress%20SARS%2 0CoV-2/Fact%20Sheet s/3023802%20SARS-C OV-2%20HEALTHCARE%2 0PROVIDERS%20FACT%2 0SHEET.pdf Fact Sheet for Healthcare Patients: https://www.[employer]/Documents/Xper t%20Xpress%20SARS%2 0CoV-2/Fact%20Sheet s/3023801%20SARS-C OV-2%20PATIENT%20FA CT%20SHEET.pdf [facility])2022-03-28 17:05:17 Test Item Value Reference Range Interpretation Comments SARS-COV2/RT-PCR Negative Negative The SARS-Co V-2 (test code = target nucleic acids 59247-1) are not detecte d in this specimen. Negative result s do not preclude SARS-CoV-2 infe ction and should not be used as the santana e basis for patie nt management decisions. Nega tive results must be combined with clinical observations, patient history , and epidemiological information. A false negative result may occur if a spec imen is improperly collected, transported or handled. This ARS CoV-2 test is a rapid, real-jg e RT-PCR test int ended for the qualita tive detection of nu cleic acid from SARS- CoV-2 in a nasopharyn geal swab specimen collected from individuals suspected of COVID-19 by the [facility]. SARS-COV-2 [facility] dical (test code = Bnsgfn280[address], [place] [address]-0) [place] [address] ph: [phone] CHRISTINE (test code = This test has [...] revoked sooner. Fact Sheet for Healthcare Providers: https://www.[employer]/Documents/Xper t%20Xpress%20SARS%2 0CoV-2/Fact%20Sheet s/302-3802%20SARS-C OV-2%20HEALTHCARE%2 0PROVIDERS%20FACT%2 0SHEET.pdf Fact Sheet for Healthcare Patients: https://www.[employer]/Documents/Xper t%20Xpress%20SARS%2 0CoV-2/Fact%20Sheet s/302-3801%20SARS-C OV-2%20PATIENT%20FA CT%20SHEET.pdf [facility])2022-03-28 17:05:17 Test Item Value Reference Range Interpretation Comments SARS-COV2/RT-PCR Negative Negative The SARS-Co V-2 target (test code = nucleic acids a re not 3705051) detected in thi s specimen. Negat hermila [...] individuals dave pected of COVID-[address] [facility] ider. SARS-COV-2 [facility] code = 6206928) JUWAN Ferrara 19751jn: This test has been authorized by FDA [...] revoked sooner. Fact Sheet for Healthcare Providers: https://www.[employer] om/Documents/Xpert%20Xpress%20SARS%20CoV-2/Fact%20Sheets/302-3802%74LGRX-QIY-6%2 0HEALTHCARE%20PROVIDERS%20FACT%20SHEET.pdf Fact Sheet for Healthcare Patients: https://www.[employer]/Documents/Xpert%20X press%20SARS%20CoV-2/Fact%20Sheets/302-3801%50CAWL-PBN-0%20PATIENT%20FACT%20SHEE T.pdfRAD, CHEST, 1 VIEW, NON [id number] 07:46:00daily am portable [facility] : 1950 Sex: FFINAL REPORT [...] Smith Verified Date/Time: 03/28/2022 07:46:54 Reading Location: [address] Reading Room BLOOD [id number] 02:59:28 Test Item Value Reference Range Interpretation Comments CULTURE (BEAKER) (test No growth in 5 days code = 1095) The specimen volume collected for this blood culture was below the optimum (10 mL per bottle or 20 mL total). Use of lower volumes may adversely affect recovery and/or detection times of some organisms.POC-Glucose [id number] 12:54:47 Test Item Value Reference Range Interpretation Comments POC-Glucose Meter (test 120 mg/dL 70-110 H : TE STED AT [facility] code = 1538) [address] [facility], 770 30: Operations Dispatcher/Techni ethel ID = [id number] for Luz Maria Pierson Lab Interpretation (test Abnormal code = 32346-7) [facility]-Glucose [id number] 12:54:47 Test Item Value Reference Range Interpretation Comments POC-Glucose Meter (test 120 mg/dL 70-110 H : TE STED AT [facility] code = 1538) [address] [facility], 770 30: Operations Dispatcher/Techni ethel ID = [id number] for Luz Maria Pierson Lab Interpretation (test Abnormal code = 37772-5) [facility]-GLUCOSE [id number] 12:54:47 Test Item Value Reference Range Interpretation Comments POC-GLUCOSE METER 120 mg/dL 70-110 H : TESTED A T [facility] 6720 (BEAKER) (test code = [facility], 1538) [address]: Operations Dispatcher/Techni ethel ID = [id number] for Luz Maria Morse RAD, CHEST, 1 VIEW, NON [id number] 12:39:00 [facility] : 1950 Sex: FFINAL REPORT INDICATION: sob COMPARISON: 03/27/2022 7:03 AM TECHNIQUE: Single frontal view of the chest. FINDINGS: Lines, tubes, and devices: Right- sided chest tube.Lungs and pleura: Clear lungs. No pneumothorax.Heart and mediastinum: Normal heart size. Unremarkable mediastinal contours.Osseous structures: No acute abnormality. The patient is rotated to the left.Other: The patient isrotated to the left. Subcutaneous emphysema in the right chest wall. IMPRESSION: 1.Right-sided chesttube without pneumothorax identified.2.Subcutaneous emphysema in the right chest wall. Signed: Hue Smith Verified Date/Time: 03/27/2022 12:39:33 Reading Location: [address] Reading Room POCT-GLUCOSE [id number] 12:35:59 Test Item Value Reference Range Interpretation Comments POC-GLUCOSE METER 91 mg/dL 70-110 : TESTED A T [facility] 6720 ([facility]) (test code = LÓPEZSAM Nilay [facility], 153) [address]: Operations Dispatcher/Techni ethel ID = [id number] for Catherine Mcintosh POCT-GLUCOSE [id number] 12:04:55 Test Item Value Reference Range Interpretation Comments POC-GLUCOSE METER 121 mg/dL 70-110 H : TESTED A T [facility] 6720 ([facility]) (test code = CAMILA Pemberton [facility], 1538) [address]: Operations Dispatcher/Techni ethel ID = [id number] for IB RAHIM, [place] POCT-GLUCOSE [id number] 11:56:34 Test Item Value Reference Range Interpretation Comments POC-GLUCOSE METER 121 mg/dL 70-110 H : TESTED A T [facility] 6720 (BEAKER) (test code = [facility], 153) [address]: Operations Dispatcher/Techni ethel ID = [id number] for IB RAHIM, SERKALEM POCT-GLUCOSE [id number] 11:18:21 Test Item Value Reference Range Interpretation Comments POC-GLUCOSE METER 115 mg/dL 70-110 H : Notified RN/MD: TESTED ([facility]) ([facility] AT [facility] D[facility] 6720 [facility] = 153) [facility], [facility] 30: Operations Dispatcher/Techni ethel ID = [id number] for SUGU , SHEENAMOL POCT-GLUCOSE [id number] 11:05:54 Test Item Value Reference Range Interpretation Comments POC-GLUCOSE METER 143 mg/dL 70-110 H : TESTED A T [facility] 6720 (BEAKER) (test code = [facility], [facility]) [address]: Operations Dispatcher/Techni ethel ID = [id number] for MA RIN, BRITTANY POCT-GLUCOSE [id number] 10:50:59 Test Item Value Reference Range Interpretation Comments POC-GLUCOSE METER 120 mg/dL 70-110 H : [facility] 6720 [facility] (test code = [facility], [facility]) 04707: Operations Dispatcher/Techni ethel ID = [id number] for MA RIN, BRITTANY POCT-GLUCOSE [id number] 08:57:10 Test Item Value Reference Range Interpretation Comments POC-GLUCOSE METER 96 mg/dL 70-110 : TESTED A T [facility] 6720 (BEAKER) (test code = [facility], [facility]8) [address]: Operations Dispatcher/Techni ethel ID = [id number] for YAHIR HOKEYA POCT-GLUCOSE [id number] 08:40:45 Test Item Value Reference Range Interpretation Comments POC-GLUCOSE METER 113 mg/dL 70-110 H : [facility]ED A T [facility] 6720 [facility] (test code = [facility], [facility]8) [address]: Operations Dispatcher/Techni ethel ID = [id number] for MARCELINO MARIE RAD, CHEST, 1 VIEW, NON [id number] 07:47:00downtime order [facility] CONNIE ESSENCEPRIYA TROY : 1950 Sex: FFINAL REPORT RAD, CHEST, [...] the right chest wall. Signed: Hue Smith MDRepthe rehabilitation institute [facility] [place] Verified Date/Time: 03/27/2022 07:47:18 Reading Location: [address] Reading Room RAD, CHEST, 1 VIEW, NON [id number] 18:31:0024T-54 [facility] ROSALESIL : 1950 Sex: FFINAL REPORT EXAM: Chest one view COMPARISON: March 26, 2022 CLINICAL HISTORY: Pneumothorax FINDINGS: A right-sided chest tube is again noted. There is no evidence of pneumothorax. The cardiac size is mildly prominent. There is no evidence of pleural effusion. The regional osseous structures are unremarkable. Subcutaneous emphysema of the right chest wall again noted. Signed: Katarzyna Jimenezeport Verified Date/Time: 03/26/2022 18:31:51 RAD, CHEST, 1 VIEW, NON [id number] 08:42:00downtime order [facility] : 1950 Sex: FFINAL REPORT [...] 03/26/2022 08:42:21 RAD, CHEST, 1 VIEW, NON [id number] 09:24:00downtime order [facility] : 1950 Sex: FFINAL REPORT [...] MDReport Verified Date/Time: 03/25/2022 09:24:56 Reading Location: [address] Reading Room RAD, CHEST, 1 VIEW, NON [id number] 09:19:00downtime order [facility] : 1950 Sex: FFINAL REPORT [...] Smith Verified Date/Time: 03/24/2022 09:19:33 Reading Location: [address] Reading Room RAD, CHEST, 1 VIEW, NON [id number] 08:13:00downtime order [facility] : 1950 Sex: FFINAL REPORT EXAMINATION: RAD, CHEST, 1 VIEW, NON DEPT. INDICATION: 72-year-old female, evaluate pneumothorax. COMPARISON: Chest radiograph dated 03/22/2022. FINDINGS/ IMPRESSION:A right pleural catheter is noted in stable position. Possible trace right apical pneumothorax. Moderate tosevere right subcutaneous emphysema. Cardiac silhouette is borderline enlarged. Mildly coarsened interstitial lung markings. Signed: Dominique Guillen Verified Date/Time: 03/23/2022 08:13:11 Reading Location: [facility] C013[facility] Consult Reading Room RAD, CHEST, 1 VIEW, NON [id number] 08:07:00downtime order [facility] : 1950 Sex: FFINAL REPORT RAD, CHEST, 1 VIEW, NON DEPT INDICATION: eval pneumothorax am portable COMPARISON: Prior day's exam FINDINGS: Portable frontal view of the chest. IMPRESSION: Support Lines:Right pleural catheter. Lungs and pleura: Small right apical pneumothorax persists. Lungs are otherwise predominantly clear. Heart and mediastinum: Stable contours. Additional findings: None. Signed: Rubi Bullardort Verified Date/Time: 03/22/2022 08:07:12 RAD, CHEST, 1 VIEW, NON [id number] 13:49:00 [facility] 1950 Sex: FFINAL REPORT RAD, CHEST, 1 VIEW, NON DEPT INDICATION: evaluate pneumothorax COMPARISON: Prior day's exam FINDINGS: Portable frontal view of the chest. IMPRESSION: Support Lines: Stableright chest tube. Lungs and pleura: Stable pulmonary reticular opacities, greater on the right. Stable trace right apical pneumothorax.Heart and mediastinum: Stable contours. Additional findings: Stable right neck and chest wall subcutaneous emphysema. Signed: Henrik Arceoort Verified Date/Time: 03/21/2022 13:49:11 RAD, CHEST, 1 VIEW, NON DEPT 2022-03-20 15:27:00 [facility] : 1950 Sex: FFINAL REPORT RAD, CHEST, 1 VIEW, NON DEPT INDICATION: Pneumothorax COMPARISON: Prior day's exam FINDINGS: Portable frontal view of the chest. IMPRESSION: Support Lines: No significant change. Lungs and pleura: Unchanged pulmonary reticular opacities, greater on the right. Overlying subcutaneous emphysema diminishes sensitivity for detection of the right pneumothorax seen on prior examinations but trace right apical pneumothorax suspected without detrimental interval change.Heart andmediastinum: Stable contours. Additional findings: Right chest wall subjacent emphysema is reduced. Signed: Henrik Arceo MDRbrandtort Verified Date/Time: 03/20/2022 15:27:20 RAD, CHEST, 1 VIEW, NON DEPT 2022-03-20 13:35:00downtime order [facility] : 1950 Sex: FFINAL REPORT [...] 03/20/2022 01:35 PMRAD, CHEST, 1 VIEW, NON [id number] 15:32:00 [facility] : 1950 Sex: FFINAL REPORT [...] 03/19/2022 15:32:10 RAD, CHEST, 1 VIEW, NON [id number] 13:27:00downtime order [facility] : 1950 Sex: FFINAL REPORT [...] base subcutaneous emphysema is stable.Signed: Henrik Arceo MDReport Verified Date/Time: 03/19/2022 13:27:14 RAD, CHEST, 1 VIEW, NON [id number] 17:24:00 [facility] : 1950 Sex: FFINAL REPORT [...] 03/18/2022 17:24:25 RAD, CHEST, 1 VIEW, NON [id number] 14:01:00 [facility] : 1950 Sex: FFINAL REPORT [...] 03/16 14:01:11 RAD, CHEST, 1 VIEW, NON [id number] 10:58:00 [facility] : 1950 Sex: FFINAL REPORT [...] Verified Date/Time: 03/15/2022 10:58:39 CT, CHEST, WITHOUT [id number] 08:54:00 [facility] 1950 Sex: FFINAL [...] appear unchanged.4. Underlying pulmonary emphysema. Signed: Marv Palmerort Verified Date/Time: 03/14/2022 08:54:40 Reading Location: [facility] Diagnostic Imaging Reading Room - [place] [address] RAD, CHEST, 1 VIEW, NON [id number] 18:07:00 [facility] : 1950 Sex: FFINAL REPORT [...] CHEST, 1 VIEW, NON DEPT 2022-03-13 13:42:00 [facility] : 1950 Sex: FFINAL REPORT [...] MDReport Verified Date/Time: 03/13/2022 13:42:55 Reading Location: [address] Reading Room RAD, CHEST, 1 VIEW, NON [id number] 15:21:00 [facility] : 1950 Sex: FFINAL REPORT [...] MDReport Verified Date/Time: 03/12/2022 15:21:00 Reading Location: [address] Reading [address] CT, CHEST, WITHOUT [id number] 15:13:00pt with Knemothorax and sub emphysema. 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 Signed: Navdeep Jamison MDReport VerifiedDate/Time: 03/11/2022 20:25:10 RAD, CHEST, 1 VIEW, NON DEPT 2022-03-11 12:49:00 [facility] : 1950 Sex: FFINAL REPORT [...] Mcdonough Verified Date/Time: 03/11/2022 12:49:10 Reading Location: [address] Reading Room RAD, CHEST, 1 VIEW, NON [id number] 04:50:00 [facility] : 1950 Sex: FFINAL REPORT [...] emphysema on the right. Signed: Navdeep Jamison Verified Date/Time: 03/11/2022 04:50:39 U/S, ABDOMINAL, [id number] 00:56:00Abdomen limited area? Add comment if clarification is needed.->Liver Reason for exam:->transaminitis [facility] : 1950 Sex: FFINAL [...] the right upper quadrant. Signed: Navdeep Jamison [facility] Verified Date/Time: 03/10/2022 00:56:46 RAD, CHEST, 1 VIEW, NON [id number] 23:31:00[facility] : 1950 Sex: FFINAL REPORT [...] base effusion, approximately stable. Signed: Melodie Begum MDReport Verified Date/Time: 03/09/2022 23:31:07 [id number] 20:29:49 Test Item Value Reference Range Interpretation Comments PARTIAL THROMBOPLASTIN TIME 60.3 seconds 22.5-36.0 H (BEAKER) (test code = 760) HIGH SENSITIVITY TROPONIN [id number] 18:55:40 Test Item Value Reference Range Interpretation Comments HIGH SENSITIVITY 28550 pg/ml See_Comment HH [Automated message] TROPONIN I (test code The [facility] which = [id number]) generated this result transmitted ref erence range: <=17. Th e reference range was not used to int erpret this result as normal/abnormal . Operations Dispatcher ID - LEONCIO LThe [employer]ARM [employer] MEMBER STAT High Sensitivity Troponin-I results should be used in conjunction with other diagnostic information such as ECG, clinical observations and information, and patient symptoms to aid in the diagnosis of GA.Operations Dispatcher ID - LEONCIO L2D Echo W/Doppler(CW/PW/Color)2022-03-09 17:54:15Ejection FractionSLEH ECHO HEARTLAB MKCKESSON CPACHI [facility] W/Doppler(CW/PW/Color)2022-03-09 17:54:15Ejection FractionSLEH ECHO HEARTLAB MKCKESSON CPACSCHI [facility]2022-10-02 13:26:41 Test Item Value Reference Range Interpretation Comments PARTIAL THROMBOPLASTIN TIME 47.1 seconds 22.5-36.0 H (BEAKER) (test code = 760) HIGH SENSITIVITY TROPONIN [id number] 13:06:27 Test Item Value Reference Range Interpretation Comments HIGH SENSITIVITY 51228 pg/ml See_Comment HH [Automated message] TROPONIN I (test code The sy stem which = [id number]) generated this result transmitted ref erence range: <=17. Th e reference range was not used to int erpret this result as normal/abnormal . Operations Dispatcher ID Juan CELESTE DThe [employer]ARM [employer] MEMBER STAT High Sensitivity Troponin-I results should be used in conjunction with other diagnostic information such as ECG, clinical observations and information, and patient symptoms to aid in the diagnosis of GA.Operations Dispatcher ID Juan ALONSO DHEPATITIS PANEL, [id number] 11:49:42 Test Item Value Reference Range Interpretation Comments HEPATITIS A IGM ANTIBODY (BEAKER) Nonreactive Nonreactive (test code = 498) HEPATITIS B CORE IGM ANTIBODY Nonreactive Nonreactive (BEAKER) (test code = 645) HEPATITIS C ANTIBODY (BEAKER) Nonreactive Nonreactive (test code = 367) HEPATITIS B SURFACE ANTIGEN (2) Nonreactive Nonreactive (BEAKER) (test code = 2585) Operations Dispatcher SHREE Juan ALONSO DLIPID [id number] 11:01:28 Test Item Value Reference Range Interpretation [...] Borderline 130-159 High 160-189 Very High >=190 Operations Dispatcher ID - CELESTE DPOCT-GLUCOSE [id number] 07:36:41 Test Item Value Reference Range Interpretation Comments POC-GLUCOSE METER 123 mg/dL 70-110 H : TESTED A T [facility] [address] (JATINDER) (test code = CAMILA KHAN [place], 1538) [address]: Operations Dispatcher/Techni ethel ID = [id number] for Ly Catherine wood RAD, CHEST, 1 VIEW, NON [id number] 07:05:00Reason for exam:->f/u R PTXShould this be performed at the bedside?->Yes [facility] : 1950 Sex: FFINAL REPORT [...] Signed: Rubi Cerda Verified Date/Time: 03/09/2022 07:05:49 [id number] 06:21:45 Test Item Value Reference Range Interpretation Comments FERRITIN (JATINDER) (test code = 78.90 ng/mL 5.00-275.00 361) Operations Dispatcher ID - LEONCIO LVITAMIN [id number] 06:21:44 Test Item Value Reference Range Interpretation Comments VITAMIN B12 (BEAKER) (test code = 1093 pg/mL 213-816 H 774) Operations Dispatcher ID - LEONCIO LHIGH SENSITIVITY TROPONIN [id number] 05:02:11 Test Item Value Reference Range Interpretation Comments HIGH SENSITIVITY 49417 pg/ml See_Comment HH [Automated message] TROPONIN I (test code The sy stem which = [id number]) generated this result transmitted ref erence range: <=17. Th e reference range was not used to int erpret this result as normal/abnormal . Operations Dispatcher ID - LEONCIO LThe [employer]BER STAT High Sensitivity Troponin-I results should be used in conjunction with other diagnostic information such as ECG, clinical observations and information, and patient symptoms to aid in the diagnosis of GA.Operations Dispatcher ID - LEONCIO LCOMPREHENSIVE METABOLIC [id number] 04:16:10 Test Item Value Reference Range Interpretation [...] not appl icable for dialysis patien ts Operations Dispatcher ID - LEONCIO [id number] 04:16:10 Test Item Value Reference Range Interpretation Comments MAGNESIUM (BEAKER) (test code = 1.8 mg/dL 1.6-2.6 627) Operations Dispatcher ID - LEONCIO [id number] 04:14:40 Test Item Value Reference Range Interpretation Comments PARTIAL THROMBOPLASTIN TIME 177.0 seconds 22.5-36.0 HH (BEAKER) (test code = 760) B-TYPE NATRIURETIC FACTOR (BNP)2022-03-09 04:01:03 Test Item Value Reference Range Interpretation Comments B-TYPE NATRIURETIC PEPTIDE (BEAKER) 875 pg/mL 0-100 H (test code = 700) Operations Dispatcher ID - LEONCIO LCBC W/PLT COUNT & AUTO [id number] 03:53:57 Test Item Value Reference Range Interpretation [...] = 2801) RAD, CHEST, 1 VIEW, NON [id number] 02:56:00Reason for exam:- >pneumothoraxShould this be performed at the bedside?->Yes [facility] : 1950 Sex: FFINAL REPORT [...] % 20-55 L (test code = 2590) Operations Dispatcher ID - PIAYA [id number] 01:11:36 Test Item Value Reference Range Interpretation Comments PARTIAL THROMBOPLASTIN TIME 28.0 seconds 22.5-36.0 (BEAKER) (test code = 760) PROTHROMBIN TIME/[id number] 01:11:00 Test Item Value Reference Range Interpretation Comments PROTIME (BEAKER) 15.2 seconds 11.9-14.2 H (test code = 759) INR (BEAKER) (test 1.23 See_Comment [Automat ed message] code = 370) The system [employer] generated this result transmitted ref erence range: <=5.90. The reference range was not used to int erpret this result as normal/abnormal . RECOMMENDED COUMADIN/WARFARIN INR THERAPY RANGESSTANDARD DOSE: 2.0 - 3.0 Includes: PROPHYLAXIS for venous thrombosis, systemic embolization; TREATMENT for venous thrombosis and/or pulmonary embolus.HIGH RISK: Target INR is 2.5-3.5 for patients with mechanical heart valves.HIGH SENSITIVITY TROPONIN [id number] 00:51:17 Test Item Value Reference Range Interpretation Comments HIGH SENSITIVITY 8303 pg/ml See_Comment HH [Automated message] TROPONIN I (test code The sy stem which = [id number]) generated this result transmitted ref erence range: <=17. Th e reference range was not used to int erpret this result as normal/abnormal . Operations Dispatcher ID - LEONCIO LThe [employer] STAT High Sensitivity Troponin-I results should be used in conjunction with other diagnostic information such as ECG, clinical observations and information, and patient symptoms to aid in the diagnosis of GA.Operations Dispatcher ID - PIAYA LCOMPREHENSIVE METABOLIC [id number] 00:45:53 Test Item Value Reference Range Interpretation [...] not appl icable for dialysis patien ts Operations Dispatcher ID - PIAYA [id number] 00:45:52 Test Item Value Reference Range Interpretation Comments MAGNESIUM (BEAKER) 1.9 mg/dL 1.6-2.6 Specimen slightly (test code = 627) hemolyzed Operations Dispatcher ID - EMMANUELOperator ID - PIAYA LPOCT-GLUCOSE [id number] 00:33:58 Test Item Value Reference Range Interpretation Comments POC-GLUCOSE METER 102 mg/dL 70-110 : TESTED A T [facility] [address] (BEAKER) (test code = LÓPEZSAM [place] [facility], 1538) [address]: Operations Dispatcher/Techni ethel ID = [id number] for Nm rosanne Shahana CBC W/PLT COUNT & AUTO [id number] 00:25:04 Test Item Value Reference Range Interpretation [...] (BEAKER) (test code = 2801) LACTIC ACID, [id number] 00:22:31 Test Item Value Reference Range Interpretation Comments LACTATE BLOOD VENOUS 1.06 mmol/L 0.50-2.20 Specime n slightly (2) (BEAKER) (test hemolyzed code = 9836) Operations Dispatcher ID - EMMANUELBLOOD GAS, [id number] 23:52:32 Test Item Value Reference Range Interpretation [...] (BEAKER) (test code = 1819) 28.0 POCT-GLUCOSE [id number] 12:15:00 Test Item Value Reference Range Interpretation Comments POC-GLUCOSE METER 122 mg/dL 70-110 H : TESTED A T [facility] 6720 (BEAKER) (test code = [facility] Nilay [facility], 1538) 09[address]: Operations Dispatcher/Techni ethel ID = [id number] for BALAJI HOGAN POCT-GLUCOSE [id number] 07:43:00 Test Item Value Reference Range Interpretation Comments POC-GLUCOSE METER 81 mg/dL 70-110 : TESTED A T [facility] 6720 (BEAKER) (test code = [facility], 1538) 75[address]: Operations Dispatcher/Techni ethel ID = [id number] for BALAJI JACK COMPREHENSIVE METABOLIC [id number] 07:11:00 Test Item Value Reference Range Interpretation [...] S NOT APPLICABLE FOR DIALYSIS PATIEN TS. Operations Dispatcher ID - KEVIN [id number] 07:11:00 Test Item Value Reference Range Interpretation Comments MAGNESIUM (BEAKER) (test code = 2.3 mg/dL 1.6-2.6 627) Operations Dispatcher ID - KEVIN [id number] 07:11:00 Test Item Value Reference Range Interpretation Comments PHOSPHORUS (BEAKER) (test code = 3.8 mg/dL 2.3-4.7 604) Operations Dispatcher ID - KEVIN MCALCIUM, [id number] 06:48:00 Test Item Value Reference Range Interpretation Comments CALCIUM IONIZED (BEAKER) (test 1.25 mmol/L 1.12-1.27 code = 698) PH, BLOOD (BEAKER) (test code = 7.29 1810) CBC W/PLT COUNT & AUTO [id number] 06:45:00 Test Item Value Reference Range Interpretation [...] PERCENT (BEAKER) (test code = 2801) POCT-GLUCOSE [id number] 21:16:00 Test Item Value Reference Range Interpretation Comments POC-GLUCOSE METER 103 mg/dL 70-110 : TESTED Liz Sosa [facility] [address] (BEAKER) (test code = CAMILA KHAN [place], 1538) [address]: Operations Dispatcher/Techni ethel ID = [id number] for IFEANYI METZJUDYGIL POCT-GLUCOSE [id number] 17:06:00 Test Item Value Reference Range Interpretation Comments POC-GLUCOSE METER 137 mg/dL 70-110 H : TESTED A T [facility] 6720 (BEAKER) (test code = [facility], 1538) 839[address]: Operations Dispatcher/Techni ethel ID = [id number] for OR BALAJI BESS POCT-GLUCOSE [id number] 12:31:00 Test Item Value Reference Range Interpretation Comments POC-GLUCOSE METER 121 mg/dL 70-110 H : TESTED A T [facility] 6720 (BEAKER) (test code = [facility], 1538) 904[address]: Operations Dispatcher/Techni ethel ID = [id number] for OR BALAJI BESS POCT-GLUCOSE [id number] 08:27:00 Test Item Value Reference Range Interpretation Comments POC-GLUCOSE METER 81 mg/dL 70-110 : TESTED A T [facility] 6720 (BEAKER) (test code = [facility], 1538) 07230: Operations Dispatcher/Techni ethel ID = [id number] for ORPH BALAJI GARCIA COMPREHENSIVE METABOLIC [id number] 07:14:00 Test Item Value Reference Range Interpretation [...] S NOT APPLICABLE FOR DIALYSIS PATIEN TS. Operations Dispatcher ID - PIKULDEEP [id number] 07:14:00 Test Item Value Reference Range Interpretation Comments MAGNESIUM (BEAKER) (test code = 2.0 mg/dL 1.6-2.6 627) Operations Dispatcher ID - LEONCIO [id number] 07:14:00 Test Item Value Reference Range Interpretation Comments PHOSPHORUS (BEAKER) (test code = 3.1 mg/dL 2.3-4.7 604) Operations Dispatcher ID - LEONCIO LCALCIUM, [id number] 06:30:00 Test Item Value Reference Range Interpretation Comments CALCIUM IONIZED (BEAKER) (test 1.22 mmol/L 1.12-1.27 code = 698) PH, BLOOD (BEAKER) (test code = 7.32 1810) CBC W/PLT COUNT & AUTO [id number] 06:18:00 Test Item Value Reference Range Interpretation [...] PERCENT (BEAKER) (test code = 2801) POCT-GLUCOSE [id number] 21:58:00 Test Item Value Reference Range Interpretation Comments POC-GLUCOSE METER 206 mg/dL 70-110 H : TESTED A T [facility] 6720 (BEAKER) (test code = [facility], 1538) 48837: Operations Dispatcher/Techni ethel ID = [id number] for Re yes, iry POCT-GLUCOSE [id number] 17:15:00 Test Item Value Reference Range Interpretation Comments POC-GLUCOSE METER 114 mg/dL 70-110 H : TESTED A T [facility] 6720 (BEAKER) (test code = [facility], 1538) 23598: Operations Dispatcher/Techni ethel ID = [id number] for ULISES SCHMITZ POCT-GLUCOSE [id number] 12:21:00 Test Item Value Reference Range Interpretation Comments POC-GLUCOSE METER 135 mg/dL 70-110 H : TESTED A T [facility] 6720 (BEAKER) (test code = CAMILA [place], 1538) 89[address]: Operations Dispatcher/Techni ethel ID = [id number] for ULISES SCHMITZ POCT-GLUCOSE [id number] 07:54:00 Test Item Value Reference Range Interpretation Comments POC-GLUCOSE METER 124 mg/dL 70-110 H : TESTED A T [facility] 6720 (JATINDER) (test code = CAMILA [place] [facility], 1538) 94695: Operations Dispatcher/Techni ethel ID = [id number] for ULISES SCHMITZ RAD, CHEST, 1 VIEW, NON [id number] 07:15:00Reason for exam:->eval PNXShould this be performed at the bedside?->Yes [facility] : 1950 Sex: FFINAL REPORT [...] Reading Location: [facility] Radiology Reading Room CALCIUM, [id number] 06:45:00 Test Item Value Reference Range Interpretation Comments CALCIUM IONIZED (BEAKER) (test 1.23 mmol/L 1.12-1.27 code = 698) PH, BLOOD (BEAKER) (test code = 7.39 1810) COMPREHENSIVE METABOLIC [id number] 06:36:00 Test Item Value Reference Range Interpretation [...] S NOT APPLICABLE FOR DIALYSIS PATIEN TS. Operations Dispatcher ID - LATA [id number] 06:36:00 Test Item Value Reference Range Interpretation Comments MAGNESIUM (BEAKER) (test code = 2.0 mg/dL 1.6-2.6 627) Operations Dispatcher ID - LATA [id number] 06:36:00 Test Item Value Reference Range Interpretation Comments PHOSPHORUS (BEAKER) (test code = 2.6 mg/dL 2.3-4.7 604) Operations Dispatcher SHREE GUIDO WCBC W/PLT COUNT & AUTO [id number] 05:59:00 Test Item Value Reference Range Interpretation [...] PERCENT (BEAKER) (test code = 2801) POCT-GLUCOSE [id number] 21:05:00 Test Item Value Reference Range Interpretation Comments POC-GLUCOSE METER 134 mg/dL 70-110 H : TESTED A T [facility] 6720 (BEAKER) (test code = [facility], 1538) 52644: Operations Dispatcher/Techni ethel ID = [id number] for Co rtez, Chela POCT-GLUCOSE [id number] 17:20:00 Test Item Value Reference Range Interpretation Comments POC-GLUCOSE METER 131 mg/dL 70-110 H : TESTED A T [facility] 6720 (BEAKER) (test code = [facility], 153) 55538: Operations Dispatcher/Techni ethel ID = [id number] for BEATRIZ HN, ULISES POCT-GLUCOSE [id number] 12:22:00 Test Item Value Reference Range Interpretation Comments POC-GLUCOSE METER 159 mg/dL 70-110 H : TESTED A T [facility] 6720 (BEAKER) (test code = [facility], 153) 37294: Operations Dispatcher/Techni ethel ID = [id number] for BEATRIZ HN, ULISES RAD, CHEST, 1 VIEW, NON [id number] 07:50:00Reason for exam:->eval PNXShould this be performed at the bedside?->Yes [facility] : 1950 Sex: FFINAL REPORT [...] chest. Nopneumothorax is identified. Signed: Claire Downing MDReport Verified Date/Time: 12/16/2020 07:50:48 Reading Location: [address] Transitional Reading Room POCT-GLUCOSE [id number] 07:42:00 Test Item Value Reference Range Interpretation Comments POC-GLUCOSE METER 124 mg/dL 70-110 H : TESTED A T [facility] [address] (BEAKER) (test code = [facility] Nilay [facility], 1538) 03599: Operations Dispatcher/Techni ethel ID = [id number] for ULISES SCHMITZ COMPREHENSIVE METABOLIC [id number] 05:29:00 Test Item Value Reference Range Interpretation [...] S NOT APPLICABLE FOR DIALYSIS PATIEN TS. Operations Dispatcher ID - LATA [id number] 05:29:00 Test Item Value Reference Range Interpretation Comments MAGNESIUM (BEAKER) (test code = 2.1 mg/dL 1.6-2.6 627) Operations Dispatcher ID - LATA [id number] 05:29:00 Test Item Value Reference Range Interpretation Comments PHOSPHORUS (BEAKER) (test code = 3.1 mg/dL 2.3-4.7 604) Operations Dispatcher ID - LATA WCBC (HEMOGRAM ONLY)2020-12-16 05:18:00 [...] = 413) RAD, CHEST, 1 VIEW, NON [id number] 03:15:00Reason for exam:- >pnuemothoraxShould this be performed at the bedside?->Yes [facility] : 1950 Sex: FFINAL REPORT [...] Devante Mckenzie Verified Date/Time: 12/16/2020 03:15:49 POCT-GLUCOSE [id number] 21:17:00 Test Item Value Reference Range Interpretation Comments POC-GLUCOSE METER 82 mg/dL 70-110 : TESTED A T [facility] [address] (BEAKER) (test code = [place] KH[place], 1538) 84083: Operations Dispatcher/Techni ethel ID = [id number] for Reilly félix, [place] POCT-GLUCOSE [id number] 16:59:00 Test Item Value Reference Range Interpretation Comments POC-GLUCOSE METER 145 mg/dL 70-110 H : Notified RN/MD: (JATINDER) (test code = TESTED AT [facility] 67[address] 1538) JIM [facility], [address]: Operations Dispatcher/Techni ethel ID = [id number] for MEKHI HARRIS POCT-GLUCOSE [id number] 13:21:00 Test Item Value Reference Range Interpretation Comments POC-GLUCOSE METER 116 mg/dL 70-110 H : [facility] (test [facility] = [facility] [place] [facility], 1538) [address]: Operations Dispatcher/Techni ethel ID = [id number] for Michaela Bhardwaj rd CHER, CHEST, 1 VIEW, NON [id number] 12:07:00Reason for exam:->PTXShould this be performed at the bedside?->Yes [facility] : 1950 Sex: FFINAL REPORT [...] Fernandez Verified Date/Time: 12/15/2020 12:07:16 Reading Location: [address] Ortho Consult Reading Room BLOOD GAS, [id number] 11:16:00 Test Item Value Reference Range Interpretation [...] (BEAKER) (test code = 1819) 28.0 POCT-GLUCOSE [id number] 08:19:00 Test Item Value Reference Range Interpretation Comments POC-GLUCOSE METER 116 mg/dL 70-110 H : [facility]ED [facility] (BEAKER) (test code [facility], = 1538) 37849: Operations Dispatcher/Techni ethel ID = [id number] for Feng delgado (contract), [facility] francisco javier COMPREHENSIVE METABOLIC [id number] 05:46:00 Test Item Value Reference Range Interpretation [...] S NOT APPLICABLE FOR DIALYSIS PATIEN TS. Operations Dispatcher ID - [id number] 05:46:00 Test Item Value Reference Range Interpretation Comments MAGNESIUM (BEAKER) (test code = 1.9 mg/dL 1.6-2.6 627) Operations Dispatcher ID - [id number] 05:46:00 Test Item Value Reference Range Interpretation Comments PHOSPHORUS (BEAKER) (test code = 3.0 mg/dL 2.3-4.7 604) Operations Dispatcher ID - EDASIRAD, CHEST, 1 VIEW, NON [id number] 05:32:00Reason for exam:->eval PNXShould this be performed at the bedside?->Yes [facility] : 1950 Sex: FFINAL REPORT [...] Jamison MDReport Verified Date/Time: 12/15/2020 05:32:54 IUM, [id number] 05:14:00 Test Item Value Reference Range Interpretation [...] (BEAKER) (test code = 413) BLOOD GAS, [id number] 01:14:00 Test Item Value Reference Range Interpretation [...] (test 37.0 code = 1818) RESPIRATORY PANEL [id number] 00:01:00 Test Item Value Reference Range Interpretation [...] sample was tested at the [facility] using the VuzeArray Respiratory Panel. It is FDA cleared and has been verified and approved by the [facility] for clinical use on nasopharyngeal swab specimens.The performance of the FilmArrayRP has not been established in individuals who received influenza vaccine. Recent administration of a nasal influenza vaccine may cause false positive results for Influenza A and/orInfluenza B.SARS-COV2/RT-PCR ([facility])2020-12-14 23:51:00 Test Item Value Reference Range Interpretation Comments SARS-COV2/RT-PCR Negative Negative The SARS-Co V-2 target (test code = 8412094) nuclei c acids are not detected in [...] Xpress SARS-CoV-2/Flu/RSV by their healthcareprovider. Results from [facility] Xpert Xpress SARS-CoV-2/Flu/RSV test should be correlated [...] of the Act.Fact Sheet for Healthcare Providers:https ://www.[employer]/Documents/Xpert%20Xpress%20SARS%20CoV-2/Fact%20Sheets/302-390 2%37OXKP-TCO-5%20HEALTHCARE%20PROVIDERS%20FACT%20SHEET.pdfFact Sheet for Healthcare Patients:https://www.[employer]/Docum ents/Xpert%20Xpress%20SARS%20Cov-2/Fact%20Sheets/302-3801%63FVBH-IXV-8%20PATIENT %20FACT%20SHEET.pdfTSH/FREE T4 IF [id number] 22:33:00 Test Item Value Reference Range Interpretation Comments THYROID STIMULATING HORMONE 2.265 uIU/mL 0.350-4.940 (BEAKER) (test code = 772) Operations Dispatcher ID - [id number] 22:20:00 Test Item Value Reference Range Interpretation Comments PROCALCITONIN (Ecovative DesignAKER) (test code 0.23 ng/mL <0.05 H = 3036) SEPSIS RISK (ng/mL)Low: 0.05-0.50Intermediate: 0.51-2.00High: >=2.01MAGNESIUM 2020-12-14 22:12:00 Test Item Value Reference Range Interpretation Comments MAGNESIUM (BEAKER) 2.0 mg/dL 1.6-2.6 Specimen slightly (test code = 627) hemolyzed Operations Dispatcher ID - [id number] 22:12:00 Test Item Value Reference Range Interpretation Comments PHOSPHORUS (BEAKER) 4.5 mg/dL 2.3-4.7 Specimen slightly (test code = 604) hemolyzed Operations Dispatcher ID - ADMINCOMPREHENSIVE METABOLIC [id number] 22:12:00 Test Item Value Reference Range Interpretation [...] S NOT APPLICABLE FOR DIALYSIS PATIEN TS. Operations Dispatcher ID - ADMINC-REACTIVE [id number] 22:12:00 Test Item Value Reference Range Interpretation Comments C-REACTIVE PROTEIN (BEAKER) (test 0.86 mg/dL 0.00-0.50 H code = 676) Operations Dispatcher ID - ADMINLACTIC ACID, [id number] 22:07:00 Test Item Value Reference Range Interpretation Comments LACTATE BLOOD VENOUS (2) (BEAKER) 1.86 mmol/L 0.50-2.20 (test code = 2872) Operations Dispatcher ID - ADMINPOCT-GLUCOSE [id number] 21:53:00 Test Item Value Reference Range Interpretation Comments POC-GLUCOSE METER 89 mg/dL 70-110 : [facility] (BEAKER) (test code = CAMILA KHAN MS, 1538) 13684: Operations Dispatcher/Techni ethel ID = [id number] for Elsi Diaz CBC (HEMOGRAM ONLY)2020-12-14 21:53:00 [...] (BEAKER) (test code = 413) BLOOD GAS, [id number] 21:49:00 Test Item Value Reference Range Interpretation [...] (BEAKER) (test code = 1819) 40.0 CALCIUM, [id number] 21:48:00 Test Item Value Reference Range Interpretation Comments CALCIUM IONIZED (BEAKER) (test 1.18 mmol/L 1.12-1.27 code = 698) PH, BLOOD (BEAKER) (test code = 7.22 1810) RAD, CHEST, 1 VIEW, NON [id number] 20:50:00Reason for exam:->chest tube placementShould this be performed at the bedside?->Yes [facility] : 1950 Sex: FFINAL REPORT [...] right chest tube placement. Signed: Romeo Nguyen MDReport Verified Date/Time: 12/14/2020 20:50:14 Reading Location: [facility] [id number] Consult Reading Room [id number] 14:04:21 Test Item Value Reference Range Interpretation Comments ALBUMIN (test code = 8513588103) 3.2 g/dL 3.5-5.0 L Lab Interpretation (test code = Abnormal 64391-2) [facility] (NA, K, CL, CO2, GLUCOSE, BUN, CREATININE, CA)2020-12-04 10:57:25 Test Item Value Reference Range Interpretation Comments NA (test code = 137 mmol/L 135-145 5009699818) K (test code = 3.9 mmol/L 3.5-5.0 2129542729) CL (test code = 95 mmol/L 98-108 L 0864318071) CO2 TOTAL (test code = 36 mmol/L 23-31 H 9127693826) AGAP (test code = 2-16 0140204593) BUN (test code = 15 mg/dL 7-23 8883444350) GLUCOSE (test code = 92 mg/dL 70-110 4784310745) CREATININE (test code = 0.53 mg/dL 0.50-1.04 8461781217) CALCIUM (test code = 8.9 mg/dL 8.6-10.6 9571065498) eGFR (test code = mL/min/1.73m2 2830087857) CHRISTINE (test code = CHRISTINE) Association of [...] tests). Lab Interpretation Abnormal (test code = 16324-1) [facility]2021-[facility]29 10:46:24 Test Item Value Reference Range Interpretation Comments MAGNESIUM (test code = 8733020319) 2.0 mg/dL 1.7-2.4 Lab Interpretation (test code = Normal 54289-8) [facility] WITH [id number] 10:19:38 Test Item Value Reference Range Interpretation Comments WBC (test code = See_Comment [Automated 7252-2) message] The sy stem which generated this result transmitted reference range : 4.30 - 11.10 10*3/?L. The reference range was not used to interpret this result as normal/abnormal . RBC (test code = See_Comment [Automated 778-9) message] The sy stem which generated this [...] (test code = 52.2 fL 39.0-49.9 H 44772-1) RDW-CV (test code = 15.9 % 12.0-15.5 H 788-0) PLT (test code = See_Comment [Automated 777-3) message] The sy stem which generated this result transmitted reference range : 166 - 358 10*3/ ?L. The reference r crispin was not used to interpret this result as normal/abnormal . MPV (test code = 9.6 fL 9.5-12.9 39290-3) NRBC/100 WBC (test See_Comment [Automat ed code = 2050279810) message] The system which generated this result transmitted reference range : 0.0 - 10.0 /100 WBCs. The refer ence range was not u sed to interpret th is result as normal/abnormal . NRBC x10^3 (test code <0.01 See_Comment [Auto mated = 1683293523) message] The s ystem which generated this result transmitted reference range : 10*3/?L. The reference range was not used to interpret this result as normal/abnormal . GRAN MAT (NEUT) % 56.8 % (test code = 770-8) IMM GRAN % (test code 0.30 % = 0963664026) LYMPH % (test code = 18.2 % 736-9) MONO % (test code = 17.8 % 5905-5) EOS % (test code = 6.2 % 713-8) BASO % (test code = 0.7 % 706-2) GRAN MAT x10^3(ANC) 3.41 10*3/uL 1.88-7.09 (test code = 2561083209) IMM GRAN x10^3 (test <0.03 0.00-0.06 code = 6300573420) LYMPH x10^3 (test code 1.09 10*3/uL 1.32-3.29 L = 731-0) MONO x10^3 (test code 1.07 10*3/uL 0.33-0.92 H = 742-7) EOS x10^3 (test code = 0.37 10*3/uL 0.03-0.39 711-2) BASO x10^3 (test code 0.04 10*3/uL 0.01-0.07 = 704-7) Lab Interpretation Abnormal (test code = 19726-0) [facility] METABOLIC PANEL (NA, K, CL, CO2, GLUCOSE, BUN, CREATININE, CA)2020-12-03 11:48:25 Test Item Value Reference Range Interpretation Comments NA (test code = 137 mmol/L 135-145 2350242402) K (test code = 3.6 mmol/L 3.5-5.0 Slight 0941443503) hemolysis CL (test code = 93 mmol/L 98-108 L 8932150808) CO2 TOTAL (test code 38 mmol/L 23-31 H = 0895528677) AGAP (test code = 2-16 1727152380) BUN (test code = 14 mg/dL 7-23 Slight 2704194752) hemolysis GLUCOSE (test code = 94 mg/dL 70-110 3966141174) CREATININE (test code 0.44 mg/dL 0.50-1.04 L = 7723012351) CALCIUM (test code = 9.2 mg/dL 8.6-10.6 4041757862) eGFR (test code = mL/min/1.73m2 4774674655) CHRISTINE (test code = CHRISTINE) Association of [...] tests). Lab Interpretation Abnormal (test code = 55874-6) [facility]2021-[facility]-28 11:48:25 Test Item Value Reference Range Interpretation Comments MAGNESIUM (test code = 4552799483) 2.0 mg/dL 1.7-2.4 Lab Interpretation (test code = Normal 32397-9) [facility] WITH [id number] 11:28:06 Test Item Value Reference Range Interpretation Comments WBC (test code = See_Comment [Automated 6690-2) message] The sy stem which generated this result transmitted reference range : 4.30 - 11.10 10*3/?L. The reference range was not used to interpret this result as normal/abnormal . RBC (test code = See_Comment [Automated 659-8) message] The sy stem which generated this [...] (test code = 53.5 fL 39.0-49.9 H 77461-9) RDW-CV (test code = 15.8 % 12.0-15.5 H 788-0) PLT (test code = See_Comment [Automated 777-3) message] The sy stem which generated this result transmitted reference range : 166 - 358 10*3/ ?L. The reference r crispin was not used to interpret this result as normal/abnormal . MPV (test code = 9.8 fL 9.5-12.9 52614-2) NRBC/100 WBC (test See_Comment [Automat ed code = 6194408660) message] The system which generated this result transmitted reference range : 0.0 - 10.0 /100 WBCs. The refer ence range was not u sed to interpret th is result as normal/abnormal . NRBC x10^3 (test code <0.01 See_Comment [Auto mated = 3576830218) message] The s ystem which generated this result transmitted reference range : 10*3/?L. The reference range was not used to interpret this result as normal/abnormal . GRAN MAT (NEUT) % 59.3 % (test code = 770-8) IMM GRAN % (test code 0.30 % = 7761593437) LYMPH % (test code = 21.7 % 736-9) MONO % (test code = 14.6 % 5905-5) EOS % (test code = 3.6 % 713-8) BASO % (test code = 0.5 % 706-2) GRAN MAT x10^3(ANC) 4.45 10*3/uL 1.88-7.09 (test code = 0282465913) IMM GRAN x10^3 (test <0.03 0.00-0.06 code = 7383192246) LYMPH x10^3 (test code 1.63 10*3/uL 1.32-3.29 = 731-0) MONO x10^3 (test code 1.10 10*3/uL 0.33-0.92 H = 742-7) EOS x10^3 (test code = 0.27 10*3/uL 0.03-0.39 711-2) BASO x10^3 (test code 0.04 10*3/uL 0.01-0.07 = 704-7) Lab Interpretation Abnormal (test code = 84207-2) [facility] CULTURE [id number] 17:01:30 Test Item Value Reference Range Interpretation Comments Blood Culture-Aerobic No organisms No growth Previo us (test code = 69898-4) isolated prelim inary verified result was Culture [...] Culture-Anaerobic isolated preliminar y (test code = 77825-1) verifi ed result was Culture In Progress [...] CDT Lab Interpretation Normal (test code = 89157-2) [facility] CULTURE [id number] 16:01:30 Test Item Value Reference Range Interpretation Comments Blood Culture-Aerobic No organisms No growth Previo us (test code = 62781-3) isolated prelim inary verified result was Culture [...] Culture-Anaerobic isolated preliminar y (test code = 97737-7) verifi ed result was Culture In Progress [...] CDT Lab Interpretation Normal (test code = 11624-1) [facility] [id number] 16:12:34 Test Item Value Reference Range Interpretation Comments SPUTUM CULTURE 1+ Respiratory daniel: (test code = 622-1) Commensal upper respiratory microorganisms only. Gram stain (test Occasional (Rare) code = 664-3) Epithelial cells CHRISTINE (test code = Bacterial pathogens CHRISTINE) associated with lower respiratory infections were not identified, which include Pseudomonas aeruginosa and Staphylococcus aureus (MRSA or MSSA). [facility] (NA, K, CL, CO2, GLUCOSE, BUN, CREATININE, CA)2020-12-01 10:12:53 Test Item Value Reference Range Interpretation Comments NA (test code = 137 mmol/L 135-145 6811951250) K (test code = 3.6 mmol/L 3.5-5.0 8404324560) CL (test code = 94 mmol/L 98-108 L 6243600927) CO2 TOTAL (test code = 35 mmol/L 23-31 H 3475437654) AGAP (test code = 2-16 0216616721) BUN (test code = 17 mg/dL 7-23 6342474854) GLUCOSE (test code = 88 mg/dL 70-110 4761626729) CREATININE (test code = 0.38 mg/dL 0.50-1.04 L 1340282865) CALCIUM (test code = 8.6 mg/dL 8.6-10.6 0470779459) eGFR (test code = mL/min/1.73m2 6132152511) CHRISTINE (test code = CHRISTINE) Association of [...] tests). Lab Interpretation Abnormal (test code = 94613-2) [facility]2021-06-26 10:02:28 Test Item Value Reference Range Interpretation Comments MAGNESIUM (test code = 0840319639) 2.0 mg/dL 1.7-2.4 Lab Interpretation (test code = Normal 58071-7) [facility]2021-06-26 10:02:28 Test Item Value Reference Range Interpretation Comments PHOSPHORUS (test code = 1910131597) 3.5 mg/dL 2.5-5.0 Lab Interpretation (test code = Normal 29892-6) [facility] WITH [id number] 09:52:48 Test Item Value Reference Range Interpretation Comments WBC (test code = See_Comment [Automated 4440-2) message] The sy stem which generated this result transmitted reference range : 4.30 - 11.10 10*3/?L. The reference range was not used to interpret this result as normal/abnormal . RBC (test code = See_Comment [Automated 315-0) message] The sy stem which generated this [...] (test code = 54.5 fL 39.0-49.9 H 74538-4) RDW-CV (test code = 15.9 % 12.0-15.5 H 788-0) PLT (test code = See_Comment [Automated 777-3) message] The sy stem which generated this result transmitted reference range : 166 - 358 10*3/ ?L. The reference r crispin was not used to interpret this result as normal/abnormal . MPV (test code = 9.5 fL 9.5-12.9 46211-4) NRBC/100 WBC (test See_Comment [Automat ed code = 4019689618) message] The system which generated this result transmitted reference range : 0.0 - 10.0 /100 WBCs. The refer ence range was not u sed to interpret th is result as normal/abnormal . NRBC x10^3 (test code <0.01 See_Comment [Auto mated = 2032174460) message] The s ystem which generated this result transmitted reference range : 10*3/?L. The reference range was not used to interpret this result as normal/abnormal . GRAN MAT (NEUT) % 64.3 % (test code = 770-8) IMM GRAN % (test code 0.30 % = 1362125348) LYMPH % (test code = 17.9 % 736-9) MONO % (test code = 13.5 % 5905-5) EOS % (test code = 3.7 % 713-8) BASO % (test code = 0.3 % 706-2) GRAN MAT x10^3(ANC) 3.85 10*3/uL 1.88-7.09 (test code = 4104255739) IMM GRAN x10^3 (test <0.03 0.00-0.06 code = 9728037050) LYMPH x10^3 (test code 1.07 10*3/uL 1.32-3.29 L = 731-0) MONO x10^3 (test code 0.81 10*3/uL 0.33-0.92 = 742-7) EOS x10^3 (test code = 0.22 10*3/uL 0.03-0.39 711-2) BASO x10^3 (test code <0.03 0.01-0.07 = 704-7) Lab Interpretation Abnormal (test code = 37051-4) [facility] ONLY COVID [id number] 02:47:45COVID DMT InterpretationInterpretation/Recommendations: Molecular NAAT Tests for [...] COVID-19 testing the patient has had at [facility], including molecular NAAT testing (more commonly known as PCR testing and Rapid ID Now testing) and antibody testing. It does not take into account any testingthat a patient has had outside of the [facility] medical record. [facility] LABORATORY SERVICESCOVID CaykoppODPR-EgN-9 Rapid ID NOW (no units) ? ? Date ? Value ? 11/27/2020 ? Not Detected ? ? ? 11/10/2020 ? Not Detected ? [facility] SERVICESUnC[facility] AC PANEL 21 + LACTIC [id number] 20:13:40 Test Item Value Reference Range Interpretation Comments PH (test code = 7.32-7.42 6455436798) PCO2 AALIYAH (test code = See_Comment H [Auto mated 6846252705) message] The sy stem which generated this result transmitted reference range : 41 - 51 mmHg. The reference range was not used to interpret this result as normal/abnormal . PO2 AALIYAH (test code = See_Comment HH [Autom ated 8172696242) message] The sy stem which generated this result transmitted reference range : 25 - 40 mmHg. The reference range was not used to interpret this result as normal/abnormal . HCO3 AALIYAH (test code = See_Comment H [Auto mated 7555915533) message] The sy stem which generated this result transmitted reference range : 24 - 28 mEq/L. The reference range was not used to interpret this result as normal/abnormal . AC VBE(BEAKER) (test mEq/L code = 4128257671) THB AALIYAH (test code = 12.8 g/dL 12.0-16.0 7547455438) %O2HB AALIYAH (test code = 95.5 % 52.0-63.0 H 7135420623) %COHB AALIYAH (test code = 0.4 % 0.0-1.5 6759061234) %METHB AALIYAH (test code = 0.1 % 0.4-1.5 L 1598204236) VOL%O2 AALIYAH (test code = 17.2 % 6.0-12.0 H 1239452972) NA (test code = 139 mmol/L 135-145 7038885549) K+ (test code = 3.9 mmol/L 3.5-5.0 0097560794) AC CA IONZ (test code = 4.50 mg/dL 4.50-5.30 2585171506) GLUCOSE (test code = 167 mg/dL 70-110 H 6943361088) LACTIC ACID (test code 2.64 mmol/L 0.50-2.20 H = 0477544856) Lab Interpretation Abnormal (test code = 63593-9) [facility]SA / MSSA Screen by PCR, [id number] 16:25:22 Test Item Value Reference Range Interpretation Comments MSSA Screen by PCR, Narelias (test code Negative Negative = 56671-2) MRSA/MSSA Positive? (test code = No No 4294654620) Lab Interpretation (test code = Normal 24115-1) [facility]villeLEGIONELLA URINARY ANTIGEN [id number] 10:44:38 Test Item Value Reference Range Interpretation Comments Legionella Urinary Negative Negative Antigen (test code = 8317121992) CHRISTINE (test code = CHRISTINE) Negative for [...] test. Lab Interpretation (test Normal code = 08602-8) [facility]villePNEUMOCOCCAL [id number] 10:44:22 Test Item Value Reference Range Interpretation Comments S. pneumoniae antigen (test code = Negative Negative 0660800390) Lab Interpretation (test code = Normal 25500-4) [facility]villeURINALYSIS2021-06-23 10:42:10 Test Item Value Reference Range Interpretation Comments APPEARANCE (test code = Hazy Clear A 9886955968) COLOR (test code = Mary Ann Yellow A 5877294846) PH (test code = 4.8-8.0 2748546562) SP GRAVITY (test code = 1.003-1.030 H 7962469855) GLU U QUAL (test code = Normal Normal 0506500075) BLOOD (test code = Negative Negative Interfere nce from 4420929619) ascorbic acid m ay cause false neg ative results. KETONES (test code = 5 mg/dL Negative A 7515260302) PROTEIN (test code = Negative Negative 2887-8) UROBILIN (test code = Normal Normal 4194296205) BILIRUBIN (test code = Negative Negative 4151705246) NITRITE (test code = Negative Negative 7773152305) LEUK FAITH (test code = Negative Negative 5711167712) RBC/HPF (test code = See_Comment H [Autom ated message] 7548035181) The system [employer] generated this result transmitted ref erence range: 0 - 3 HP F. The reference range was not used to int erpret this result as normal/abnormal . WBC/HPF (test code = See_Comment [Autom ated message] 3963960773) The system [employer] generated this result transmitted ref erence range: 0 - 5 HP F. The reference range was not used to int erpret this result as normal/abnormal . BACTERIA (test code = Few Negative A 9718861205) MUCOUS (test code = Slight Negative LPF A 4939707769) AMORPHOUS (test code = Rare Rare HPF 8331244229) ASCORBIC ACID (test code 40 mg/dL = 5435846576) Lab Interpretation (test Abnormal code = 50088-0) [facility]villeXR RIBS 4+ VW [id number] 10:25:19 Left-sided rib fractures with left pleural effusion and left lower lobeatelectasis versus infiltrate. Questionable inferior lateral right rib fractures, suboptimally profiled. Severe osteopenia. Thoracic and lumbar spine vertebral body compression fractures, chronicityuncertain. Severe osteopenia, suspect osteoporosis. EXAM: XR RIBS 4+ VW BILATERAL HISTORY: Rule out possible rib fracture. Patient reports recent trauma to anteriorchest by slamming into truck door. COMPARISON: None [...] fractures, chronicityuncertain.Severe osteopenia, suspect osteoporosis. [facility] (NA, K, CL, CO2, Glucose, BUN, Creatinine, CA)2020-11-28 10:13:28 Test Item Value Reference Range Interpretation Comments NA (test code = 141 mmol/L 135-145 3035521803) K (test code = 4.3 mmol/L 3.5-5.0 4913755339) CL (test code = 99 mmol/L 98-108 4944237675) CO2 TOTAL (test code = 36 mmol/L 23-31 H 5715166580) AGAP (test code = 2-16 6110250666) BUN (test code = 35 mg/dL 7-23 H 4524345085) GLUCOSE (test code = 93 mg/dL 70-110 6234692954) CREATININE (test code = 0.38 mg/dL 0.50-1.04 L 4453515994) CALCIUM (test code = 8.3 mg/dL 8.6-10.6 L 0435963130) eGFR (test code = mL/min/1.73m2 9056193578) CHRISTINE (test code = CHRISTINE) Association of [...] tests). Lab Interpretation Abnormal (test code = 19207-7) [facility]villeMagnesium [id number] 10:03:09 Test Item Value Reference Range Interpretation Comments MAGNESIUM (test code = 9327394248) 2.4 mg/dL 1.7-2.4 Lab Interpretation (test code = Normal 34789-4) [facility]villeHepatic Function Panel (ALB, T.PRO, BILI T, BU/BC, ALT, AST, ALK, PHOS)2020-11-28 10:03:09 Test Item Value Reference Range Interpretation Comments TOTAL BILI (test code = 0326213451) 0.3 mg/dL 0.1-1.1 BILI UNCON (test code = 3534552432) 0.0 mg/dL 0.1-1.1 L BILI CONJ (test code = 1740250069) 0.0 mg/dL 0.0-0.3 T PROTEIN (test code = 3120940868) 5.7 g/dL 6.3-8.2 L ALBUMIN (test code = 3018263362) 2.7 g/dL 3.5-5.0 L ALK PHOS (test code = 7385139954) 119 U/L 34-122 ALTv (test code = 1742-6) 8 U/L 5-35 AST(SGOT) (test code = 5052826132) 21 U/L 13-40 Lab Interpretation (test code = Abnormal 88414-1) [facility]villeAC PANEL 21 + LACTIC [id number] 09:39:06 Test Item Value Reference Range Interpretation Comments PH (test code = 7.32-7.42 9734695684) PCO2 AALIYAH (test code = See_Comment H [Auto mated 3713661503) message] The sy stem which generated this result transmitted reference range : 41 - 51 mmHg. The reference range was not used to interpret this result as normal/abnormal . PO2 AALIYAH (test code = See_Comment H [Autom ated 6393460954) message] The sy stem which generated this result transmitted reference range : 25 - 40 mmHg. The reference range was not used to interpret this result as normal/abnormal . HCO3 AALIYAH (test code = See_Comment H [Auto mated 1339808335) message] The sy stem which generated this result transmitted reference range : 24 - 28 mEq/L. The reference range was not used to interpret this result as normal/abnormal . AC VBE(BEAKER) (test mEq/L code = 0248451418) THB AALIYAH (test code = 12.6 g/dL 12.0-16.0 5207399430) %O2HB AALIYAH (test code = 88.7 % 52.0-63.0 H 2083014452) %COHB AALIYAH (test code = 0.8 % 0.0-1.5 4185583418) %METHB AALIYAH (test code = 0.1 % 0.4-1.5 L 3665894363) VOL%O2 AALIYAH (test code = 15.7 % 6.0-12.0 H 4580351540) NA (test code = 142 mmol/L 135-145 1728872025) K+ (test code = 4.3 mmol/L 3.5-5.0 7254506263) AC CA IONZ (test code = 4.80 mg/dL 4.50-5.30 9353510883) GLUCOSE (test code = 92 mg/dL 70-110 8014716973) LACTIC ACID (test code 1.16 mmol/L 0.50-2.20 = 7336508988) Lab Interpretation Abnormal (test code = 60420-1) [facility] with [id number] 09:36:44 Test Item Value Reference Range Interpretation [...] (test code = 55.5 fL 39.0-49.9 H 83047-8) RDW-CV (test code = 15.8 % 12.0-15.5 H 788-0) PLT (test code = See_Comment [Automated 777-3) message] The sy stem which generated this result transmitted reference range : 166 - 358 10*3/ ?L. The reference r crispin was not used to interpret this result as normal/abnormal . MPV (test code = 9.5 fL 9.5-12.9 15721-4) NRBC/100 WBC (test See_Comment [Automat ed code = 0445041324) message] The system which generated this result transmitted reference range : 0.0 - 10.0 /100 WBCs. The refer ence range was not u sed to interpret th is result as normal/abnormal . NRBC x10^3 (test code <0.01 See_Comment [Auto mated = 9666362826) message] The s ystem which generated this result transmitted reference range : 10*3/?L. The reference range was not used to interpret this result as normal/abnormal . GRAN MAT (NEUT) % 75.1 % (test code = 770-8) IMM GRAN % (test code 0.20 % = 8781944360) LYMPH % (test code = 13.1 % 736-9) MONO % (test code = 11.4 % 5905-5) EOS % (test code = 0.0 % 713-8) BASO % (test code = 0.2 % 706-2) GRAN MAT x10^3(ANC) 3.09 10*3/uL 1.88-7.09 (test code = 6940106409) IMM GRAN x10^3 (test <0.03 0.00-0.06 code = 0134833917) LYMPH x10^3 (test code 0.54 10*3/uL 1.32-3.29 L = 731-0) MONO x10^3 (test code 0.47 10*3/uL 0.33-0.92 = 742-7) EOS x10^3 (test code = <0.03 0.03-0.39 L 711-2) BASO x10^3 (test code <0.03 0.01-0.07 = 704-7) Lab Interpretation Abnormal (test code = 82945-3) [facility] [id number] 03:48:20 Test Item Value Reference Range Interpretation Comments PH (test code = 2) 7.35-7.45 L PCO2 (test code = See_Comment H [Automate d 8019973625) message] The sy stem which generated this result transmitted reference range : 35 - 45 mmHg. The reference range was not used to interpret this result as normal/abnormal . PO2 (test code = See_Comment L [Automated 9179587698) message] The sy stem which generated this result transmitted reference range : 80 - 100 mmHg. The reference range was not used to interpret this result as normal/abnormal . HCO3 (test code = See_Comment H [Automate d 5049560538) message] The sy stem which generated this result transmitted reference range : 22 - 26 mEq/L. The reference range was not used to interpret this result as normal/abnormal . BE (test code = See_Comment H [Automated 0184230485) message] The sy stem which generated this result transmitted reference range : -3.0 - 3.0 mEq/ L. The reference r crispin was not used to interpret this result as normal/abnormal . THB (test code = 13.6 g/dL 12.0-16.0 6429521777) %O2HB (test code = 94.4 % 94.0-99.0 6512303356) %COHB ART (test code = 1.2 % 0.0-1.5 6544763750) %METHB ART (test code = 0.0 % 0.4-1.5 L 1461515211) VOL%O2 ART (test code = 18.1 % 15.0-23.0 8527795088) NA (test code = 143 mmol/L 135-145 3632043554) K+ (test code = 4.3 mmol/L 3.5-5.0 5152648698) AC CA IONZ (test code = 4.80 mg/dL 4.50-5.30 9339747000) GLUCOSE (test code = 120 mg/dL 70-110 H 3548121872) LACTIC ACID (test code 0.99 mmol/L 0.50-2.20 = 0031661897) Lab Interpretation Abnormal (test code = 27836-8) [facility] VENOUS BLOOD [id number] 01:07:34 Test Item Value Reference Range Interpretation Comments PH (test code = 7.32-7.42 L 9218651186) PCO2 AALIYAH (test code = See_Comment H [Auto mated message] 1840802254) The system whic h generated this result transmitted ref erence range: 41 - 51 mmHg. The reference r crispin was not used to interpret this result as normal/abnor mal. PO2 AALIYAH (test code = See_Comment H [Autom ated message] 5127987974) The system [employer] generated this result transmitted ref erence range: 25 - 40 mmHg. The reference r crispin was not used to interpret this result as normal/abnor mal. HCO3 AALIYAH (test code = See_Comment H [Auto mated message] 5178352713) The system [employer] generated this result transmitted ref erence range: 24 - 28 mEq/L. The reference r crispin was not used to interpret this result as normal/abnor mal. AC VBE(BEAKER) (test mEq/L code = 9487639907) Lab Interpretation (test Abnormal code = 12701-5) [facility]2021-[facility] 00:57:28 Test Item Value Reference Interpretation Comments Range Procalcitonin (test <0.02 See_Comment [Automa cristhian code = 8554516847) message] The system which generated this result [...] lung abscess/empyema. For further information please refer to:[email or web address] p Lab Interpretation Normal (test code = 82008-7) [facility] StephenvilleTraleksander [id number] 23:45:01 Test Item Value Reference Range Interpretation Comments TROPONIN I (test 0.029 ng/mL See_Comment Hemolyzed code = 0601257544) specimen [Automated message] The system which generated [...] ? Lab Interpretation Normal (test code = 53906-7) [facility] [id number] 23:12:52 Test Item Value Reference Range Interpretation Comments NT-proBNP (test code 1880 pg/mL See_Comment H [Autom ated = 6931535356) message] The system which generated this result transmitted reference range : <=125. The reference range was not used to interpret this result as normal/abnormal . CHRISTINE (test code = CHRISTINE) Biotin has been reported to cause a negative bias, interpret results relative to patient's use of biotin. Lab Interpretation Abnormal (test code = 49262-2) [facility] Arterial Blood Gas.2020-11-27 23:07:45 Test Item Value Reference Range Interpretation Comments PH (test code = 2) 7.35-7.45 L PCO2 (test code = See_Comment H [Automate d message] 3343553306) The system [employer] generated this result transmitted ref erence range: 35 - 45 mmHg. The reference r crispin was not used to interpret this result as normal/abnor mal. PO2 (test code = See_Comment H [Automated message] 2685950684) The system [employer] generated this result transmitted ref erence range: 80 - 100 mmHg. The reference r crispin was not used to interpret this result as normal/abnor mal. HCO3 (test code = See_Comment H [Automate d message] 8452882405) The system [employer] generated this result transmitted ref erence range: 22 - 26 mEq/L. The reference r crispin was not used to interpret this result as normal/abnor mal. BE (test code = See_Comment H [Automated message] 2258814879) The system [employer] generated this result transmitted ref erence range: -3.0 - 3 .0 mEq/L. The refe rence range was not u sed to interpret this result as normal/abnor mal. Lab Interpretation (test Abnormal code = 08469-7) [facility]villeGAMMA [id number] 23:03:29 Test Item Value Reference Range Interpretation Comments GGT (test code = 0641879065) 16 U/L 13-40 Lab Interpretation (test code = Normal 49080-0) [facility]villeTROPONIN [id number] 16:26:41 Test Item Value Reference Range Interpretation Comments TROPONIN I (test 0.033 ng/mL See_Comment [Automated code = 6959043217) message] The system which generated this result [...] ? Lab Interpretation Normal (test code = 96153-8) [facility] CHEST 1 [id number] 16:26:25HISTORY: SOB. TECHNIQUE: Portable AP erect view [...] findings of developing pneumonia inretrocardiac left lower lung.[facility]villeCOMP. METABOLIC PANEL (75503)2020-11-27 16:21:42 Test Item Value Reference Range Interpretation Comments NA (test code = 141 mmol/L 135-145 0061435274) K (test code = 3.7 mmol/L 3.5-5.0 5813490745) CL (test code = 97 mmol/L 98-108 L 0545857699) CO2 TOTAL (test code = 38 mmol/L 23-31 H 3884409683) AGAP (test code = 2-16 5020499664) BUN (test code = 36 mg/dL 7-23 H 2733286643) GLUCOSE (test code = 128 mg/dL 70-110 H 1505962918) CREATININE (test code = 0.58 mg/dL 0.50-1.04 5691546733) TOTAL BILI (test code = 0.3 mg/dL 0.1-1.0 2552514507) CALCIUM (test code = 9.5 mg/dL 8.6-10.6 6079533478) T PROTEIN (test code = 7.0 g/dL 6.3-8.2 3931411838) ALBUMIN (test code = 3.4 g/dL 3.5-5.0 L 7615737808) ALK PHOS (test code = 168 U/L 34-122 H 7342228144) ALTv (test code = 10 U/L 5-35 1742-6) AST(SGOT) (test code = 23 U/L 13-40 2516286471) eGFR (test code = mL/min/1.73m2 4255479532) CHRISTINE (test code = CHRISTINE) Association of [...] tests). Lab Interpretation Abnormal (test code = 68664-3) [facility] (ID NOW RAPID TESTING)2020-11-27 16:15:24 Test Item Value Reference Range Interpretation Comments SARS-CoV-2 Rapid ID NOW Not Detected Not Detected (test code = 11679-7) CHRISTINE (test code = CHRISTINE) ID NOW COVID-19 Assay is an isothermal nucleic acid amplification test intended for the qualitative detection of nucleic acid from SARS-CoV-2 viral RNA in nasopharyngeal (BUCKLE COVERER) specimens. It is used under Emergency Use [...] indicated. Lab Interpretation Normal (test code = 21514-5) [facility] WITH [id number] 16:02:41 Test Item Value Reference Range Interpretation Comments WBC (test code = See_Comment [Automated 7983-2) message] The sy stem which generated this result transmitted reference range : 4.30 - 11.10 10*3/?L. The reference range was not used to interpret this result as normal/abnormal . RBC (test code = See_Comment [Automated 269-8) message] The sy stem which generated this [...] (test code = 55.8 fL 39.0-49.9 H 10077-1) RDW-CV (test code = 16.0 % 12.0-15.5 H 788-0) PLT (test code = See_Comment [Automated 847-3) message] The sy stem which generated this result transmitted reference range : 166 - 358 10*3/ ?L. The reference r crispin was not used to interpret this result as normal/abnormal . MPV (test code = 9.8 fL 9.5-12.9 84867-7) NRBC/100 WBC (test See_Comment [Automat ed code = 5097866798) message] The system which generated this result transmitted reference range : 0.0 - 10.0 /100 WBCs. The refer ence range was not u sed to interpret th is result as normal/abnormal . NRBC x10^3 (test code <0.01 See_Comment [Auto mated = 9747482336) message] The s ystem which generated this result transmitted reference range : 10*3/?L. The reference range was not used to interpret this result as normal/abnormal . GRAN MAT (NEUT) % 81.4 % (test code = 770-8) IMM GRAN % (test code 0.50 % = 1019643997) LYMPH % (test code = 11.1 % 736-9) MONO % (test code = 5.9 % 5905-5) EOS % (test code = 0.3 % 713-8) BASO % (test code = 0.8 % 706-2) GRAN MAT x10^3(ANC) 6.04 10*3/uL 1.88-7.09 (test code = 1243029532) IMM GRAN x10^3 (test 0.04 10*3/uL 0.00-0.06 code = 5441994930) LYMPH x10^3 (test code 0.82 10*3/uL 1.32-3.29 L = 731-0) MONO x10^3 (test code 0.44 10*3/uL 0.33-0.92 = 742-7) EOS x10^3 (test code = <0.03 0.03-0.39 L 711-2) BASO x10^3 (test code 0.06 10*3/uL 0.01-0.07 = 704-7) Lab Interpretation Abnormal (test code = 64889-9) [facility] + LACTIC [id number] 15:52:05 Test Item Value Reference Range Interpretation Comments PH (test code = 7.32-7.42 6275034500) PCO2 AALIYAH (test code = See_Comment H [Auto mated 1999104079) message] The sy stem which generated this result transmitted reference range : 41 - 51 mmHg. The reference range was not used to interpret this result as normal/abnormal . PO2 AALIYAH (test code = See_Comment [Autom ated 6482444107) message] The sy stem which generated this result transmitted reference range : 25 - 40 mmHg. The reference range was not used to interpret this result as normal/abnormal . HCO3 AALIYAH (test code = See_Comment H [Auto mated 5616368927) message] The sy stem which generated this result transmitted reference range : 24 - 28 mEq/L. The reference range was not used to interpret this result as normal/abnormal . AC VBE(BEAKER) (test mEq/L code = 7924603954) THB AALIYAH (test code = 13.9 g/dL 12.0-16.0 3900876885) %O2HB AALIYAH (test code = 61.0 % 52.0-63.0 8096049715) %COHB AALIYAH (test code = 3.2 % 0.0-1.5 H 0521742177) %METHB AALIYAH (test code = 0.3 % 0.4-1.5 L 5480293234) VOL%O2 AALIYAH (test code = 11.9 % 6.0-12.0 6688158898) NA (test code = 141 mmol/L 135-145 6777349594) K+ (test code = 4.3 mmol/L 3.5-5.0 2645921900) AC CA IONZ (test code = 4.50 mg/dL 4.50-5.30 5128334879) GLUCOSE (test code = 133 mg/dL 70-110 H 2452224907) LACTIC ACID (test code 1.92 mmol/L 0.50-2.20 = 9495634755) Lab Interpretation Abnormal (test code = 30832-4) [facility]villeN-TERMINAL [id number] 21:02:27 Test Item Value Reference Range Interpretation Comments NT-proBNP (test code 607 pg/mL See_Comment H [Autom ated = 3629807855) message] The system which generated this result transmitted reference range : <=125. The reference range was not used to interpret this result as normal/abnormal . CHRISTINE (test code = CHRISTINE) Biotin has been reported to cause a negative bias, interpret results relative to patient's use of biotin. Lab Interpretation Abnormal (test code = 79563-9) [facility]-REACTIVE [id number] 18:59:27 Test Item Value Reference Range Interpretation Comments CRP (test code = 5051310312) 6.5 mg/dL <0.8 H Lab Interpretation (test code = Abnormal 70539-1) [facility] [id number] 15:59:00 Test Item Value Reference Range Interpretation Comments Blood Culture-Aerobic No organisms No growth Previo us (test code = 04669-6) isolated prelim inary verified result was Culture In Progress on 11/10/2020 at 195 7 CDT Blood Culture positive. No growth AA Previous Culture-Anaerobic See Blood Culture preli minary (test code = 14704-9) Workup for verifi ed result additional was Culture In information. Progress on 11/10/2020 at 070 1 CDT Lab Interpretation Abnormal (test code = 24547-9) [facility] [id number] 15:58:24 Test Item Value Reference Range Interpretation Comments Blood Culture Shewanella algae [place] mor phologically Workup (test consistent with code = 600-7) organism above For susceptibility results, refer to culture # - [id number] Gram stain Isolated from (test code = anaerobic bottle 664-3) Gram negative bacilli [facility] CULTURE [id number] 15:56:17 Test Item Value Reference Range Interpretation Comments Blood Culture-Aerobic Culture positive. No growth AA P revious (test code = 10380-2) See Blood Culture p reliminary Workup for verified result additional was Culture In information. Progress on 11/10/2020 at 070 1 CDT Blood No organisms No growth Previous Culture-Anaerobic isolated preliminar y (test code = 81821-3) verifi ed result was Culture In Progress on 11/10/2020 at 200 0 CDT Lab Interpretation Abnormal (test code = 05575-3) [facility]PROCALCITONIN2021-06-08 06:21:11 Test Item Value Reference Range Interpretation Comments Procalcitonin (test 0.10 ng/mL <0.07 H code = 2202167668) CHRISTINE (test code = CHRISTINE) INTERPRETATION OF [...] lung abscess/empyema. For further information please refer to:[email or web address] Lab Interpretation Abnormal (test code = 24067-1) [facility] ONLY COVID [id number] 17:28:08COVID DMT InterpretationInterpretation/Recommendations: Molecular NAAT Tests for [...] COVID-19 testing the patient has had at [facility], including molecular NAAT testing (more commonly known as PCR testing and Rapid ID Now testing) and antibody testing. It does not take into account any testing that a patient has had outside of the [facility] medical record. [facility] LABORATORY SERVICESCOVID ResultsSA RS-CoV-2 Rapid ID NOW (no units) ? ? Date ? Value ? 11/10/2020 ? Not Detected ? [facility] LABORATORY [facility] [id number] 15:25:49 Test Item Value Reference Range Interpretation Comments FREE T4 (test code = See_Comment [Autom ated message] 3639803702) The system [employer] generated this result transmitted ref erence range: 0.78 - 2 .20 ng/dL:. The ref erence range was not u sed to interpret this result as normal/abnor mal. Lab Interpretation (test Normal code = 74307-3) [facility] [id number] 15:25:34 Test Item Value Reference Range Interpretation Comments FREE T3 (test code = 8385420713) 2.05 pg/mL 2.77-5.27 L Lab Interpretation (test code = Abnormal 67985-2) [facility] 1 [id number] 14:46:22 Chronic emphysematous changes with possible infectious/inflammatoryexacerbation [...] this study and agree withthe above report. [facility] (NA, K, CL, CO2, GLUCOSE, BUN, CREATININE, CA)2020-11-12 14:40:25 Test Item Value Reference Range Interpretation Comments NA (test code = 136 mmol/L 135-145 1619987991) K (test code = 4.1 mmol/L 3.5-5.0 0612763651) CL (test code = 100 mmol/L 98-108 2590946016) CO2 TOTAL (test code = 32 mmol/L 23-31 H 5165733642) AGAP (test code = 2-16 4785849513) BUN (test code = 22 mg/dL 7-23 9777345011) GLUCOSE (test code = 90 mg/dL 70-110 2070452672) CREATININE (test code = 0.45 mg/dL 0.50-1.04 L 5970036328) CALCIUM (test code = 9.4 mg/dL 8.6-10.6 4869589034) eGFR (test code = mL/min/1.73m2 6397437951) CHRISTINE (test code = CHRISTINE) Association of [...] tests). Lab Interpretation Abnormal (test code = 61167-1) [facility] with [id number] 14:31:27 Test Item Value Reference Range Interpretation Comments WBC (test code = See_Comment [Automated 7325-2) message] The sy stem which generated this result transmitted reference range : 4.30 - 11.10 10*3/?L. The reference range was not used to interpret this result as normal/abnormal . RBC (test code = See_Comment [Automated 970-1) message] The sy stem which generated this [...] (test code = 51.8 fL 39.0-49.9 H 89058-2) RDW-CV (test code = 15.5 % 12.0-15.5 788-0) PLT (test code = See_Comment [Automated 777-3) message] The sy stem which generated this result transmitted reference range : 166 - 358 10*3/ ?L. The reference r crispin was not used to interpret this result as normal/abnormal . MPV (test code = 9.5 fL 9.5-12.9 06480-9) NRBC/100 WBC (test See_Comment [Automat ed code = 6204946358) message] The system which generated this result transmitted reference range : 0.0 - 10.0 /100 WBCs. The refer ence range was not u sed to interpret th is result as normal/abnormal . NRBC x10^3 (test code <0.01 See_Comment [Auto mated = 7101613739) message] The s ystem which generated this result transmitted reference range : 10*3/?L. The reference range was not used to interpret this result as normal/abnormal . GRAN MAT (NEUT) % 73.8 % (test code = 770-8) IMM GRAN % (test code 0.50 % = 5224484903) LYMPH % (test code = 11.0 % 736-9) MONO % (test code = 11.9 % 5905-5) EOS % (test code = 2.4 % 713-8) BASO % (test code = 0.4 % 706-2) GRAN MAT x10^3(ANC) 5.89 10*3/uL 1.88-7.09 (test code = 8170946178) IMM GRAN x10^3 (test 0.04 10*3/uL 0.00-0.06 code = 7535082147) LYMPH x10^3 (test code 0.88 10*3/uL 1.32-3.29 L = 731-0) MONO x10^3 (test code 0.95 10*3/uL 0.33-0.92 H = 742-7) EOS x10^3 (test code = 0.19 10*3/uL 0.03-0.39 711-2) BASO x10^3 (test code 0.03 10*3/uL 0.01-0.07 = 704-7) Lab Interpretation Abnormal (test code = 86069-4) [facility]villeTHYROID STIMULATING [id number] 00:51:55 Test Item Value Reference Range Interpretation Comments TSH (test code = See_Comment H [Automated message] 9851673691) The system [employer] generated this result transmitted ref erence range: 0.45 - 4 .70 mIU/L. The refe rence range was not u sed to interpret this result as normal/abnor mal. Lab Interpretation (test Abnormal code = 37454-0) [facility]villeVancomycin Trough Level - Draw no more than 60 minutes before the 1830 dose.2020-11-12 00:24:13 Test Item Value Reference Range Interpretation Comments VANCO TROUGH (test code 6.7 ug/mL 10.0-20.0 L = 6637405295) CHRISTINE (test code = CHRISTINE) Toxic Range: ?>20 ug/mL 15-20 ug/mL is recommended for severe infection or when Vancomycin MARCELLA is greater than or equal to 2. Lab Interpretation (test Abnormal code = 02649-4) [facility]villeGRAM NEGATIVE BLOOD PATHOGENS DNA [id number] 09:16:52 Test Item Value Reference Range Interpretation Comments Blood Pathogens by No organisms included in DNA Comment (test the Blood DNA Probe test code = 46845-1) panel were detected. Further identification workup to be performed by culture testing methods. CHRISTINE (test code = See blood culture result CHRISTINE) for additional information. ?Testing included eight identification and six resistance marker targets. [facility]villeCT THORAX W [id number] 18:24:48 Impression: 1. No pulmonary mass or [...] liver function tests is suggested. RL: 2824AFC: 35386 End of Report Exam: CT Chest Without [...] with liver function tests is suggested.RL: 2824AFC: 27952Eij of Report [facility] HospitalURINALYSIS2021-[facility]-05 09:41:46 Test Item Value Reference Range Interpretation Comments APPEARANCE (test code = Clear Clear 4197022800) COLOR (test code = Mary Ann Yellow A 6052902677) PH (test code = 4.8-8.0 3658266336) SP GRAVITY (test code = 1.003-1.030 9266976837) GLU U QUAL (test code = Normal Normal 2950007747) BLOOD (test code = Negative Negative 2125737647) KETONES (test code = Negative Negative 1729951646) PROTEIN (test code = 100 mg/dL Negative A 2887-8) UROBILIN (test code = 4.0 mg/dL Normal A 6831274224) BILIRUBIN (test code = 2 mg/dL Negative A 6101555671) NITRITE (test code = Negative Negative 4081616035) LEUK FAITH (test code = Negative Negative 1252519028) RBC/HPF (test code = See_Comment H [Autom ated message] 6282877049) The system [employer] generated this result transmit cristhian reference range : 0 - 3 HPF. The refe rence range was not u sed to interpret th is result as normal/abnormal . WBC/HPF (test code = See_Comment [Autom ated message] 0312789739) The system [employer] generated this result transmit cristhian reference range : 0 - 5 HPF. The refe rence range was not u sed to interpret th is result as normal/abnormal . BACTERIA (test code = Few Negative A 1458901298) MUCOUS (test code = Slight Negative LPF A 3079007940) SQ EPITH (test code = HPF 8089421735) HYAL CAST (test code = See_Comment H [Aut omated message] 1887098760) The system [employer] generated this result transmit cristhian reference range : <=2 LPF. The refere nce range was not u sed to interpret th is result as normal/abnormal . Ictotest (test code = Negative 2728727803) Lab Interpretation (test Abnormal code = 00073-3) [facility] (ID NOW RAPID TESTING)2020-11-10 09:17:13 Test Item Value Reference Range Interpretation Comments SARS-CoV-2 Rapid ID NOW Not Detected Not Detected (test code = 97863-9) CHRISTINE (test code = CHRISTINE) ID NOW COVID-19 Assay is an isothermal nucleic acid amplification test intended for the qualitative detection of nucleic acid from SARS-CoV-2 viral RNA in nasopharyngeal (BUCKLE COVERER) specimens. It is used under Emergency Use [...] indicated. Lab Interpretation Normal (test code = 74281-0) [facility]. METABOLIC PANEL (42989)2020-11-10 09:13:10 Test Item Value Reference Range Interpretation Comments NA (test code = 137 mmol/L 135-145 8166058721) K (test code = 4.2 mmol/L 3.5-5.0 2753510196) CL (test code = 96 mmol/L 98-108 L 2709997592) CO2 TOTAL (test code = 34 mmol/L 23-31 H 5218310931) AGAP (test code = 2-16 7748300429) BUN (test code = 35 mg/dL 7-23 H 6527847108) GLUCOSE (test code = 131 mg/dL 70-110 H 6152836181) CREATININE (test code = 0.64 mg/dL 0.50-1.04 2258704784) TOTAL BILI (test code = 0.7 mg/dL 0.1-1.9 7364873562) CALCIUM (test code = 9.7 mg/dL 8.6-10.6 4016669293) T PROTEIN (test code = 7.7 g/dL 6.3-8.2 8050587518) ALBUMIN (test code = 3.9 g/dL 3.5-5.0 2266252825) ALK PHOS (test code = 202 U/L 34-122 H 9970659812) ALTv (test code = 13 U/L 5-35 2-6) AST(SGOT) (test code = 27 U/L 13-40 7160509937) eGFR (test code = mL/min/1.73m2 6062202078) CHRISTINE (test code = CHRISTINE) Association of [...] tests). Lab Interpretation Abnormal (test code = 73810-4) [facility] WITH [id number] 09:01:30 Test Item Value Reference Range Interpretation [...] (test code = 52.1 fL 39.0-49.9 H 52435-2) RDW-CV (test code = 15.7 % 12.0-15.5 H 788-0) PLT (test code = See_Comment [Automated 777-3) message] The system which generated this result transmit cristhian reference range : 166 - 358 10*3/ ?L. The reference range was not u sed to interpret th is result as normal/abnormal . MPV (test code = 9.7 fL 9.5-12.9 71047-4) NRBC/100 WBC (test See_Comment [Automat ed code = 6822092877) message] The system which generated this result transmit cristhian reference range : 0.0 - 10.0 /100 WBCs. The reference range was not used to interpret this result as normal/abnormal . NRBC x10^3 (test code <0.01 See_Comment [Auto mated = [id number]) message] The system which generated this result transmit cristhian reference range : 10*3/?L. The reference range was not used to interpret this result as normal/abnormal . GRAN MAT (NEUT) % 88.5 % (test code = 770-8) IMM GRAN % (test code 0.70 % = 7263469023) LYMPH % (test code = 3.1 % 736-9) MONO % (test code = 7.5 % 5905-5) EOS % (test code = 0.0 % 713-8) BASO % (test code = 0.2 % 706-2) GRAN MAT x10^3(ANC) 14.39 10*3/uL 1.88-7.09 H (test code = 1126562022) IMM GRAN x10^3 (test 0.12 10*3/uL 0.00-0.06 H code = 6885025113) LYMPH x10^3 (test code 0.50 10*3/uL 1.32-3.29 L = 731-0) MONO x10^3 (test code 1.22 10*3/uL 0.33-0.92 H = 742-7) EOS x10^3 (test code = <0.03 0.03-0.39 L 711-2) BASO x10^3 (test code 0.04 10*3/uL 0.01-0.07 = 704-7) Lab Interpretation Abnormal (test code = 85177-1) [facility] [id number] 08:58:13 Test Item Value Reference Range Interpretation Comments LACTIC ACID (test code = 1.62 mmol/L 0.50-2.20 8599090092) Lab Interpretation (test code = Normal 82438-5) [facility]
--- NOTE | 2023-05-02 16:47 | RAD REPORT ---
EXAM DESCRIPTION: RAD - Chest Single View - 05/02/2023 4:40 pm CLINICAL HISTORY: DYSPNEA Chest pain. COMPARISON: Chest Single View dated 08/25/2022; Chest Single View dated 08/10/2022; Chest Single View d ated 03/08/2022; Chest Single View dated 03/08/2022 FINDINGS: Portable technique limits examination quality. The lungs are emphysematous but grossly clear. The heart is mildly enlarged in size. No displaced fra ctures. IMPRESSION: Prominent diffuse COPD.
[2023-05-02 17:46] LABS: Absolute Lymphocytes (CBC) 0.6 K/uL (0.7-4.9); Lymphocytes % 2.9 % (15.3-44.8); MCV 85.5 fL (80-100); MPV 7.8 fL (7.6-11.3); Platelets 311 thou/uL (152-406); RBC Red Blood Cell Count 4.33 M/uL (3.86-4.86)
[2023-05-02 17:48] LABS: Albumin 2.6 g/dL (3.4-5.0); Bilirubin Total 0.4 mg/dL (0.2-1.0); Protein, Total 8.1 g/dL (6.4-8.2)
[2023-05-02 17:49] LABS: Potassium 5.7 mEq/L (3.5-5.1); Protime INR 1.04
[2023-05-02] MEDS ORDERED: ONDANSETRON 4 MG/2 ML VIAL ONE (18:13)
[2023-05-02] MEDS ORDERED: MORPHINE 2 MG/ML SYR ONE (18:13)
--- NOTE | 2023-05-02 18:13 | RAD REPORT ---
EXAM DESCRIPTION: US - Extremity Venous Uni Ltd - 05/02/2023 6:05 pm CLINICAL HISTORY: Pain;Swelling Leg swelling and edema. COMPARISON: Extrem Venous W Compress Nick dated 01/22/2023 FINDINGS: Right lower extremity venous system was interrogated with Doppler technique. Normal flow, compressibility and augmentation was noted. There is no DVT present. IMPRESSION: No evidence of right lower extremity deep venous thrombosis.
[2023-05-02 18:25] LABS: Blood Morphology Comment NOT SEEN (NOT SEEN); Platelet Estimate ADEQ; White Blood Cell Scan OK (OK)
[2023-05-02 18:52] LABS: Potassium 5.2 mEq/L (3.5-5.1)
--- NOTE | 2023-05-02 19:09 | ER ---
Nurse's Notes [facility] Name: Elena Bruno Age: 73 yrs Sex: Female : 1950 Arrival Date: 05/02/2023 Time: 15:50 Bed 13 Private MD: Diagnosis: Cellulitis of right lower limb Presentation: 05/02 16:10 Chief complaint: Patient states: right leg red, edematous, painful. Coronavirus screen: ko1 At this time, the client does not indicate any symptoms associated with coronavirus-19. Ebola Screen: No symptoms or risks identified at this time. Initial Sepsis Screen:. Initial Sepsis Screen: Does the patient meet any 2 criteria? No. Patient's initial sepsis screen is negative. Does the patient have a suspected source of infection? No. Patient's initial sepsis screen is negative. Risk Assessment: Do you want to hurt yourself or someone else? Patient reports no desire to harm self or others. Onset of symptoms is unknown. 16:10 Method Of Arrival: Wheelchair ko1 16:10 Acuity: FABBY 2 ko1 Triage Assessment: 16:14 General: Appears ill, Behavior is calm, cooperative, appropriate for age. Pain: ko1 Complains of pain in right leg. Historical: - Allergies: 16:14 No Known Allergies; ko1 - PMHx: 16:14 Chronic obstructive lung disease; Hypothyroidism; Hypertensive disorder; ko1 - Immunization history:: Adult Immunizations unknown. - Social history:: Smoking status: Patient/guardian denies using tobacco, but has a distant history of tobacco abuse. Screenin:25 [facility] ED Fall Risk Assessment (Adult) History of falling in the last 3 months, cm10 including since admission No falls in past 3 months (0 pts) Confusion or Disorientation No (0 pts) Intoxicated or Sedated No (0 pts) Impaired Gait Yes (1 pt) Mobility Assist Device Used Yes (1 pt) Altered Elimination Yes (1 pt) Score/Fall Risk Level 3 or more points = High Risk Oriented to surroundings, Maintained a safe environment, Hourly rounding (assess needs \T\ fall precautionary measures) done. Abuse screen: Denies threats or abuse. Denies injuries from another. Nutritional screening: No deficits noted. Tuberculosis screening: No symptoms or risk factors identified. Assessment: 17:25 General: Appears ill, Behavior is calm, cooperative. Pain: Complains of pain in right cm10 leg. Neuro: No deficits noted. Level of Consciousness is awake, alert, obeys commands, Oriented to person, place, time, situation. Cardiovascular: Patient's skin is warm and dry. Respiratory: No deficits noted. Airway is patent Respiratory effort is even, unlabored, Respiratory pattern is regular, symmetrical. Derm:. Musculoskeletal: Swelling present in right leg Pt has redness and swelling noted to right lower leg. Vital Signs: 16:10 BP 152 / 101; Pulse 91; Resp 22; Temp 97; Pulse Ox 97% ; ko1 20:12 BP 104 / 79; Pulse 106; Resp 23; Pulse Ox 93% ; Weight 49.9 kg; bp ED Course: 15:54 Patient arrived in ED. mg5 15:56 Eloisa Dickinson FNP-C [facility]. kb 15:56 Richa Richard MD is Attending Physician. kb 16:14 Triage completed. ko1 16:14 Arm band placed on right wrist. Patient placed in an exam room, on oxygen, on cardiac ko1 monitor, on pulse oximetry, Patient notified of wait time. 16:42 Chest Single View XRAY In Process Unspecified. EDMS 17:24 CBC with Diff Sent. cm10 17:24 CMP Sent. cm10 17:24 Lactate w/ 2H reflex if indic. Sent. cm10 17:24 Protime (+inr) Sent. cm10 17:24 Ptt, Activated Sent. cm10 17:25 Patient has correct armband on for positive identification. Bed in low position. Call cm10 light in reach. Side rails up X2. Provided Education on: ER process and procedures. . Client placed on continuous cardiac and pulse oximetry monitoring. NIBP monitoring applied. 17:25 Inserted saline lock: 22 gauge in right wrist, using aseptic technique. Blood cm10 collected. Missed attempt(s): 22 gauge in left forearm. Oxygen administration via nasal cannula \T\ 2L/min. 18:07 US Extremity Venous Unilateral Ltd In Process Unspecified. EDMS 18:26 Larisa Christie, RN is Primary Nurse. cm10 18:27 BMP Sent. cm10 19:08 Denton Arriaga MD is Hospitalizing Provider. kb 19:20 Primary Nurse role handed off by Larisa Christie, CHRIS bp 19:20 Man Elizabeth, RN is Primary Nurse. bp 21:24 No provider procedures requiring assistance completed. Patient admitted, IV remains in bp place. Administered Medications: 18:27 Drug: morphine IVP or IV 2 mg IVP once over 4 mins Route: IVP; Infused Over: 4 mins; cm10 Site: right forearm; 21:25 Follow up: Response: No adverse reaction bp 18:27 Drug: Ondansetron IVP 4 mg IVP once; over 2 minutes Route: IVP; Site: right forearm; cm10 21:25 Follow up: Response: No adverse reaction bp 19:50 Drug: Albuterol Inhalation 2.5 mg Inhalation once Route: Inhalation; bp 19:51 Drug: vancoMYCIN IVPB 1 grams IVPB once over 2 hrs Route: IVPB; Infused Over: 2 hrs; bp Site: right forearm; 21:25 Follow up: IV Status: Completed infusion; IV Intake: 250ml bp 19:51 Drug: gabapentin 100 mg PO once; pt cannot take the capsule, please mix in an ounce of bp water Route: PO; 21:25 Follow up: Response: No adverse reaction bp 20:40 Drug: HYDROmorphone IVP 0.5 mg IVP once Route: IVP; Site: right forearm; bp 21:25 Follow up: Response: No adverse reaction bp 20:40 Drug: HYDROcodone-acetaminophen PO 5 mg-325 mg 1 tabs PO once Route: PO; bp 21:25 Follow up: Response: No adverse reaction bp Medication: 17:25 VIS not applicable for this client. cm10 Intake: 21:25 IV: 250ml; Total: 250ml. bp Outcome: 19:08 Decision to Hospitalize by Provider. kb 21:24 Admitted to Med/surg accompanied by tech, via stretcher, room 404, with chart, Report bp called to CHRISTIE PEREZ 21:24 Condition: stable 21:24 Instructed on the need for admit, 21:26 Patient left the ED. bp Signatures: Dispatcher [employer] EDMS Eloisa Dickinson FNP-C FNP-Man Patel, RN RN bp Mena Galaviz RN RN ko1 Larisa Christie RN RN [email or web address] Laurie Peter mg5 Corrections: (The following items were deleted from the chart) 16:14 16:14 PSHx: Appendectomy; ko1 ko1 16:14 16:14 PSHx: Total abdominal hysterectomy; ko1 ko1 20:40 20:12 BP 104 / 79; Pulse 106bpm; Resp 23bpm; Pulse Ox 93%; bp bp
--- NOTE | 2023-05-02 19:09 | EDPHYS ---
Physician Documentation [facility] Name: Elena Bruno Age: 73 yrs Sex: Female : 1950 Arrival Date: 05/02/2023 Time: 15:50 Bed 13 Private MD: ED Physician Richa Richard HPI: 05/02 19:07 This 73 yrs old Female presents to ER via Wheelchair with complaints of Groin Pain - kb Swelling, Thigh Pain - Swelling. 19:07 Pt reports redness and swelling to right lower extremity that started 3 days ago. kb Denies fever. . Historical: - Allergies: 16:14 No Known Allergies; ko1 - PMHx: 16:14 Chronic obstructive lung disease; Hypothyroidism; Hypertensive disorder; ko1 - Immunization history:: Adult Immunizations unknown. - Social history:: Smoking status: Patient/guardian denies using tobacco, but has a distant history of tobacco abuse. ROS: 19:05 Constitutional: Negative for fever, chills, and weight loss, kb 19:05 Skin: Positive for erythema, swelling, of the right leg, 19:05 All other systems are negative, Exam: 19:05 Constitutional: This is a well developed, well nourished patient who is awake, alert, kb and in no acute distress. Head/Face: Normocephalic, atraumatic. ENT: Moist Mucous membranes Cardiovascular: Regular rate Respiratory: Respirations even and unlabored. No increased work of breathing. Talking in full sentences MS/ Extremity: Pulses equal, no cyanosis. Neurovascular intact. Full, normal range of motion. Neuro: Awake and alert, GCS 15, oriented to person, place, time, and situation. 19:05 Skin: cellulitis, that is moderate, on the right leg, Vital Signs: 16:10 BP 152 / 101; Pulse 91; Resp 22; Temp 97; Pulse Ox 97% ; ko1 20:12 BP 104 / 79; Pulse 106; Resp 23; Pulse Ox 93% ; Weight 49.9 kg; bp MDM: 15:57 Patient medically screened. kb 19:06 Differential diagnosis: cellulitis, abscess, dvt. Data reviewed: vital signs, nurses kb notes. Consideration of Admission/Observation Patient was admitted/placed on observation. Escalation of care including admission/observation considered. Management of patient was discussed with the following: Hospitalist: Whitney web designer accepts pt under Dr Arriaga. Historians other than the Patient: Family Member: grandson. Counseling: I had a detailed discussion with the patient and/or guardian regarding the historical points, exam findings, and any diagnostic results supporting the discharge/admit diagnosis, lab results, radiology results, the need for further work-up and treatment in the hospital. 05/02 16:13 Order name: Blood Culture Adult (2) kb 05/02 16:13 Order name: CBC with Diff; Complete Time: 18:30 kb 05/02 16:13 Order name: CMP; Complete Time: 17:49 kb 05/02 16:13 Order name: Lactate w/ 2H reflex if indic.; Complete Time: 17:50 kb 05/02 16:13 Order name: Protime (+inr); Complete Time: 17:49 kb 05/02 16:13 Order name: Ptt, Activated; Complete Time: 17:49 kb 05/02 17:28 Order name: Glucose, Ancillary Testing; Complete Time: 17:30 EDMS 05/02 17:51 Order name: BMP; Complete Time: 18:52 kb 05/02 18:25 Order name: CBC Smear Scan; Complete Time: 18:30 EDMS 05/02 20:27 Order name: Urinalysis w/ reflexes EDMS 05/02 20:27 Order name: Basic Metabolic Panel EDMS 05/02 20:27 Order name: Basic Metabolic Panel EDMS 05/02 20:27 Order name: Basic Metabolic Panel EDMS 05/02 20:27 Order name: Basic Metabolic Panel EDMS 05/02 20:27 Order name: CBC with Automated Diff EDMS 05/02 20:27 Order name: CBC with Automated Diff EDMS 05/02 20:27 Order name: CBC with Automated Diff EDMS 05/02 20:27 Order name: CBC with Automated Diff EDMS 05/02 20:27 Order name: Magnesium EDMS 05/02 20:27 Order name: Magnesium EDMS 05/02 20:27 Order name: Magnesium EDMS 05/02 20:27 Order name: Magnesium EDMS 05/02 16:13 Order name: Chest Single View XRAY; Complete Time: 16:48 kb 05/02 16:14 Order name: US Extremity Venous Unilateral Ltd; Complete Time: 18:14 kb 05/02 16:13 Order name: EKG; Complete Time: 16:14 kb 05/02 19:57 Order name: CONS Physician Consult [facility] 05/02 20:15 Order name: Social Service Consult [facility] 05/02 16:13 Order name: Accucheck; Complete Time: 17:24 kb 05/02 16:13 Order name: Cardiac monitoring; Complete Time: 17:24 kb 05/02 16:13 Order name: EKG - Nurse/Tech; Complete Time: 17:40 kb 05/02 16:13 Order name: IV Saline Lock - Large Bore; Complete Time: 17:24 kb 05/02 16:13 Order name: Labs collected and sent; Complete Time: 17:24 kb 05/02 16:13 Order name: O2 Per Protocol; Complete Time: 17:24 kb 05/02 16:13 Order name: O2 Sat Monitoring; Complete Time: 17:24 kb 05/02 16:13 Order name: Vital Signs; Complete Time: 17:24 kb Administered Medications: 18:27 Drug: morphine IVP or IV 2 mg IVP once over 4 mins Route: IVP; Infused Over: 4 mins; cm10 Site: right forearm; 21:25 Follow up: Response: No adverse reaction bp 18:27 Drug: Ondansetron IVP 4 mg IVP once; over 2 minutes Route: IVP; Site: right forearm; cm10 21:25 Follow up: Response: No adverse reaction bp 19:50 Drug: Albuterol Inhalation 2.5 mg Inhalation once Route: Inhalation; bp 19:51 Drug: vancoMYCIN IVPB 1 grams IVPB once over 2 hrs Route: IVPB; Infused Over: 2 hrs; bp Site: right forearm; 21:25 Follow up: IV Status: Completed infusion; IV Intake: 250ml bp 19:51 Drug: gabapentin 100 mg PO once; pt cannot take the capsule, please mix in an ounce of bp water Route: PO; 21:25 Follow up: Response: No adverse reaction bp 20:40 Drug: HYDROmorphone IVP 0.5 mg IVP once Route: IVP; Site: right forearm; bp 21:25 Follow up: Response: No adverse reaction bp 20:40 Drug: HYDROcodone-acetaminophen PO 5 mg-325 mg 1 tabs PO once Route: PO; bp 21:25 Follow up: Response: No adverse reaction bp Disposition Summary: 05/02/23 19:08 Hospitalization Ordered Notes: Hospitalization Status: Inpatient Admission kb Provider: Denton Arriaga Location: Telemetry/MedSurg (Inpatient) kb Condition: Stable kb Problem: new kb Symptoms: are unchanged kb Bed/Room Type: Standard Room Assignment: 404(05/02/23 20:05) ds4 Diagnosis - Cellulitis of right lower limb kb Forms: - Medication Reconciliation Form kb - SBAR form kb - Leadership Thank You Letter kb Signatures: Dispatcher [employer] EDMS Eloisa Dickinson, GLASS DRILLER-C GLASS DRILLER-Ckb Avery Owens ds4 Blake Witt GLASS DRILLER-C GLASS DRILLER-Cla1 Man Elizabeth RN RN bp Mena Galaviz RN RN ko1 Larisa Christie, RN RN cm10 Corrections: (The following items were deleted from the chart) 16:14 16:14 PSHx: Appendectomy; ko1 ko1 16:14 16:14 PSHx: Total abdominal hysterectomy; ko1 ko1 20:05 19:08 kb ds4
[2023-05-02] MEDS ORDERED: ALBUTEROL 2.5 MG/3 ML NEB SOL ONE (19:44)
[2023-05-02] MEDS ORDERED: VANCOMYCIN 1 GM/VIAL ONE (19:44)
[2023-05-02] MEDS ORDERED: NA CHLORIDE 0.9% 250 ML ONE (19:44)
[2023-05-02] MEDS ORDERED: GABAPENTIN 300 MG CAP ONE (19:44)
--- NOTE | 2023-05-02 19:47 | P.HP ---
Certification for Inpatient Patient admitted to: Inpatient With expected LOS: <2 Midnights Patient will require the following post-hospital care: Other (out patient wound clinic with Dr Christie) Practitioner: I am a practitioner with admitting privileges, knowledge of christiano reynolds current condition, hospital course, and medical plan of care. Services: Services provided to patient in accordance with Admission requirements found in Title 42 Section 412.3 of the Code of Federal Regulations Patient History Date of Service: 05/02/23 Reason for admission: BLE cellulitis History of Present Illness: 73-year-old female with a past medical history of COPD with home 02, hypothyroidism, hypertension, CAD with chronic foot wounds presents to the emergency room with right lower extremity swelling, right lower extremity foot wound that is worse over the last 3 days. She reports drainage to the right lower extremity wound, redness, pain and swelling. She reports seeing Dr. Christie every 2 weeks in the wound clinic. Dr. Christie evaluated patient in the emergency room stated patient needed to be treated with IV antibiotics could resume p.o. diet. Infectious disease consulted for antibiotic management. Patient denied fever, cough, chest pain, shortness of breath, plan to admit for cellulitis of the right lower extremity, hyponatremia, hyperkalemia. Acute on chronic kidney injury. Dr. Christie consulted for wound care eval. Patient started on IV antibiotics. Laboratory evaluation WBCs 21.90 early left shift 89.2, anemia hemoglobin 11.8, hematocrit normal 37.0, hyponatremia 127 acute on chronic kidney injury BUN 48 creatinine 1.11, hypoalbuminemia 2.6, chest x-ray IMPRESSION: Prominent diffuse COPD. Venous Doppler ultrasound FINDINGS: Right lower extremity venous system was interrogated with Doppler technique. Normal flow, compressibility and augmentation was noted. There is no DVT present Allergies No Known Allergies Allergy (Verified 08/14/22 15:30) Home Medications: Apixaban [Eliquis *] 2.5 mg PO BID 08/14/22 Hydrocodone 5/APAP 325 [Burke 5/325*] 1 tab PO Q4H PRN 08/14/22 Levothyroxine [Synthroid*] 1 tab PO 0630 08/14/22 Magnesium Oxide [Mag 0X*] 400 mg PO BID 08/14/22 Melatonin [Melatonin*] 3 mg PO BEDTIME 08/14/22 Metoprolol Tartrate [Lopressor*] 25 mg PO BID 08/14/22 Mirtazapine [Remeron] 30 mg PO BEDTIME 08/14/22 Mometasone/Formoterol [Dulera 100 Mcg-5 Mcg Inhaler] 2 puff IN BID 08/14/22 lisinopriL [Lisinopril] 5 mg PO BID 08/14/22 methocarbamoL [Robaxin*] 500 mg PO BID 08/14/22 predniSONE [Deltasone*] 10 mg PO DAILY 08/14/22 Iron/FA/Vit B-Com W/C [Hemocyte Plus*] 1 tab PO DAILY WITH BREAKFAST #30 tab 08/28/22 - Past Medical/Surgical History Diabetic: No -: COPDon home O2 -: Tobacco use -: Attention -: -: Appendectomy Psychosocial/ Personal History: Patient is at home, alone - Family History Mother -: Cancer - Social History Alcohol use: No CD- Drugs: No Caffeine use: No Review of Systems 10-point ROS is otherwise unremarkable (Review of symptoms per HPI) Physical Examination - Physical Exam General: Alert, In no apparent distress, Oriented x3 HEENT: Atraumatic, Normocephalic Neck: Supple, 2+ carotid pulse no bruit Respiratory: Normal air movement Cardiovascular: Normal S1 S2, Other, Edema (RLE) Capillary refill: >2 Seconds Gastrointestinal: Normal bowel sounds, Soft and benign Musculoskeletal: No clubbing, No swelling Integumentary: Venous stasis ulcer (RLE erythema,), Other (BLE foot wounds, RLE moderate cellulitis, draining serosanganous anterior foot wound ) Neurological: Normal speech, Normal tone, Sensation intact - Studies Laboratory Data (last 24 hrs) 05/02/23 05/02/23 05/02/23 18:26 17:15 17:15 WBC Hgb Hct Plt Count PT 11.4 INR 1.04 APTT 26.9 Sodium 127 L 126 L Potassium 5.2 H 5.7 H BUN 48 H 43 H Creatinine 1.11 H 1.17 H Glucose 94 97 Total Bilirubin 0.4 AST 27 ALT 18 Alkaline Phosphatase 152 H 05/02/23 17:15 WBC 21.90 H Hgb 11.8 L Hct 37.0 Plt Count 311 PT INR APTT Sodium Potassium BUN Creatinine Glucose Total Bilirubin AST ALT Alkaline Phosphatase Assessment and Plan - Plan Assessment and plan cellulitis of the right lower extremity CAD with chronic bilateral foot wounds Laboratory evaluation WBCs 21.90 early left shift 89.2, IV cefepime, IV doxycycline, as needed analgesics Infectious disease consult, Dr. Christie consulted for wounds right lower extremity Venous Doppler ultrasound FINDINGS: Right lower extremity venous system was interrogated with Doppler technique. Normal flow, compressibility and augmentation was noted. There is no DVT present Wound cultures, blood cultures, trend cultures [facility] wound care consult Acute on chronic kidney injury unknown baseline acute on chronic kidney injury BUN 48 creatinine 1.11 IVF, hyponatremia IV fluids, trend sodium hyponatremia 127 hyperkalemia trend electrolytes, Anemia anemia hemoglobin 11.8, hematocrit normal 37.0, Hypoalbuminemia hypoalbuminemia 2.6, COPD hypothyroidis hypertension Resume appropriate home meds chest x-ray IMPRESSION: Prominent diffuse COPD. O2 2 L keep sats greater than 90%, nebs, resume appropriate home meds Full code Renal diet DVT resume Eliquis Discharge Plan: Home Plan to discharge in: 48 Hours - Advance Directives Does patient have a Living Will: No Does patient have a Durable POA for Healthcare: No - Code Status/Comfort Care Code Status: Full Code Physician Review: Patient Assessed, Agree with Above Assessment and Plan Critical Care: No Time Spent Managing Pts Care (In Minutes): 50
[2023-05-02] MEDS ORDERED: ONDANSETRON 4 MG/2 ML VIAL IV PRN (20:25)
[2023-05-02] MEDS ORDERED: ACETAMINOPHEN 500 MG TAB PO PRN (20:25)
[2023-05-02] MEDS ORDERED: HYDROMORPHONE HCL 0.5 MG/0.5 ML INJ IV PRN (20:25)
[2023-05-02] MEDS ORDERED: ALBUTEROL 2.5 MG/3 ML NEB SOL NEB PRN (20:25)
[2023-05-02] MEDS ORDERED: IPRATROPIUM BROM 0.5MG/2.5ML NEB PRN (20:25)
[2023-05-02] MEDS ORDERED: DOXYCYCLINE 100 MG in NA CHLORIDE 0.9% 100 ML IVPB SCH (21:00)
[2023-05-02] MEDS: MELATONIN 3 MG TABLET PO SCH (21:00)
--- NOTE | 2023-05-02 21:22 | CON ---
Date of Consultation: 05/02/2023 Reason For Service: Cellulitis of the right lower extremity. History Of Present Illness: This is the case of a [facility] due to history of cellulitis. Last Thursday 3 days ago we noticed some change in mental status and we co nvinced her to allow us to send her to the ER and also convinced the family member since we noticed s ome changes in her mental status. Obviously, she did not want to stay, but after medical evaluation, then the patient was sent home. Today comes once again this time with redness of the right lower ex tremity that normally she has, but a little bit more pronounced this time consistent with cellulitis. Surgical consult was obtained. Allergies: NONE. Medications: Reviewed including Eliquis, lopressor. Medical History: Includes COPD, on chronic oxygen. Surgeries: Include C-sections and appendectomy. Social Habits: She smokes. She was advised and counseled and she is supposed to be quitting by now. She does not use alcohol. Physical Examination: General: The patient is awake, alert. Chest: Clear. Abdomen: Soft and depressible. Extremities: Diminished pulses bilaterally that are chronic on her. No cyanosis present. Over the right lower extremity, the patient has cellulitis present. There are some anterior ulcers present mu ltiple. There is no fluctuance seen. There is no necrotic tissue at this moment, but there is some component of cellulitis. No calf tenderness. No fluctuance present at this moment. Laboratory Data: Blood work shows WBC count of 21, hemoglobin of 11.8, potassium is 5.2, glucose 94. Assessment: A -asmv-fkd patient, multiple medical problems, including ulcer, cellulitis of the right lower extremity. Continue antibiotics. At this moment, no need for debridement, but we a re going to see in the next 24-48 hours how that delineates and proceed accordingly. HM/MODL Voice ID: [id number] Report ID: [id number]
[2023-05-02] MEDS: HYDROCODONE/APAP 5/325 MG TAB PO PRN (22:24)
[2023-05-02] MEDS: methocarbamoL 500 MG TAB PO SCH (22:25)
[2023-05-02] MEDS: MIRTAZAPINE 15 MG TAB PO SCH (22:25)
[2023-05-02] MEDS: CEFEPIME 2 GM in NA CHLORIDE 0.9% 100 ML IV SCH (22:26)
[2023-05-02] MEDS: APIXABAN 2.5 MG TABLET PO SCH (22:26)
[2023-05-02] MEDS: NA CHLORIDE 0.9% 1,000 ML IV SCH (22:27)
[2023-05-02] MEDS: METOPROLOL TAR 25 MG TAB PO SCH (22:28)
[2023-05-02 23:27] VITALS: BMI 14.9
[2023-05-03 04:06] LABS: Absolute Lymphocytes (CBC) 0.7 K/uL (0.7-4.9); Hematocrit 31.6 % (36.0-45.0); Lymphocytes % 2.2 % (15.3-44.8); MCV 85.9 fL (80-100); MPV 7.4 fL (7.6-11.3); Platelets 249 thou/uL (152-406); RBC Red Blood Cell Count 3.68 M/uL (3.86-4.86)
[2023-05-03 04:16] LABS: Magnesium 2.7 mg/dL (1.6-2.4); Phosphorus 4.2 mg/dL (2.5-4.9)
[2023-05-03 05:36] LABS: Blood Morphology Comment NOT SEEN (NOT SEEN); Platelet Estimate ADEQ
[2023-05-03] MEDS: LEVOTHYROXINE SOD 0.1 MG TAB PO SCH (06:24)
--- NOTE | 2023-05-03 07:06 | P.PN ---
Date of Service: 05/03/23 Subjective: Reports chronic wounds for months, but worsened over the past few days bilateral lower extremities with surrounding erythema, R > L. RLE with indurated skin mid posterior right thigh. +feels some difficulty breathing at rest, currently on 2L NC - has home oxygen afebrile ROS: 10 point ROS as noted above, otherwise negative Physical Exam: GEN: Alert, oriented, NAD HEENT: Normal conjunctiva, sclera anicteric CV: Regular rate and rhythm, BLE edema up to knee, R > L Pulm: Nonlabored respirations on 2L NC, diminished at bases b/l ABD: Soft, nontender, nondistended MSK: No joint tenderness Integumentary: BLE foot wounds with surrounding erythema/swelling, R > L, RLE with indurated skin mid posterior right thigh. Neuro: Normal speech, normal affect vitals reviewed Problem List: sepsis secondary to cellulitis of right lower extremity CAD with chronic bilateral foot wounds JESSI Hyponatremia, acute COPD, on home O2 h/o severe pulm hypertension Hypothyroidism Hypertension Cellulitis of right lower extremity CAD with chronic bilateral foot wounds Reports chronic wounds for months, but worsened over the past few days sees Dr. Christie every 2 weeks at wound healing center RLE venous u/s (05/02): no DVT Echocardiogram (08/12/2022): 69% EF, mild TR/MR, severe pulm hypertension General surgery - Dr. Christie consulted to eval wounds continue medical management for now to re-eval in next 24-48 hrs for possible I&D UA (05/03): +LE, +WBC, <20 bacteria, trace yeast blood cx (05/02): pending urine cx (05/03): pending ID consulted given vanc x1 in ED Continue empiric cefepime / vanc (05/02-) afebrile, leukocytosis worse 21.9 -> 29.7 (05/03) PRN pain medication JESSI Hyponatremia continue IV fluids Monitor electrolytes, replete as needed Continue to monitor renal function both improving COPD, on home O2 h/o severe pulm hypertension CXR (05/02): prominent diffuse COPD On 2L NC; wean as tolerated. has home oxygen, ?1L at home PRN nebs Hypothyroidism Hypertension confirm home medications, restart as appropriate VTE: home eliquis Code: Full Dispo: Home, 3-4 days Pending further workup / improvement
[2023-05-03] MEDS ORDERED: INFLUENZA VACCINE (for 6+ mo) 0.5 ML DOSE IMVAC ONE (08:00)
[2023-05-03] MEDS ORDERED: PNEUMOCOCCAL VACCINE 0.5 ML IMVAC ONE (08:00)
[2023-05-03 08:48] LABS: Specific Gravity 1.019 (1.005-1.030); Urine Bacteria <20 /HPF (<20); Urine Bilirubin NEGATIVE (Negative); Urine Blood Negative (Negative); Urine Clarity Extremely Turbid (Clear); Urine Color Yellow (Yellow); Urine Glucose NEGATIVE (Negative); Urine Protein TRACE (Negative); Urine RBC <5 /HPF (None Seen); Urine Urobilinogen Normal (Normal); Urine pH 5.5 (5.0-7.0)
[2023-05-03] MEDS: DULERA 100/5 (MOMETASONE/FORMOTEROL) INHALER IH SCH ×2 (09:00→20:36)
[2023-05-03] MEDS: METOPROLOL TAR 25 MG TAB PO SCH ×2 (09:00→20:40)
[2023-05-03] MEDS ORDERED: VANCOMYCIN 1.5 GM in NA CHLORIDE 0.9% 500 ML IVPB SCH (09:00)
[2023-05-03] MEDS: CEFEPIME 2 GM in NA CHLORIDE 0.9% 100 ML IV SCH ×2 (09:51→22:28)
[2023-05-03] MEDS: APIXABAN 2.5 MG TABLET PO SCH ×2 (09:51→20:34)
[2023-05-03] MEDS: methocarbamoL 500 MG TAB PO SCH ×2 (09:51→20:35)
[2023-05-03] MEDS: NA CHLORIDE 0.9% 1,000 ML IV SCH (09:59)
--- NOTE | 2023-05-03 15:55 | PN ---
Date of Progress Note: 05/03/2023 Diagnosis: Right lower extremity cellulitis. Subjective: Patient is doing better, better attitude today. Redness is starting to improve a little bit. She has history of chronic anterior ulcers and [facility] modalities. Plan: She has no teeth and no dentures, so we have to give her soft diet, only puree. Continue anti biotics per ID and continue dressing changes. ARIC/JUSTIN Voice ID: [id number] Report ID: [id number]
[2023-05-03] MEDS: GABAPENTIN 100 MG CAP PO SCH (20:34)
[2023-05-03] MEDS: MIRTAZAPINE 15 MG TAB PO SCH (20:35)
[2023-05-03] MEDS: MELATONIN 3 MG TABLET PO SCH (20:36)
[2023-05-03] MEDS: VANCOMYCIN 1 GM in NA CHLORIDE 0.9% 250 ML IVPB SCH (20:40)
[2023-05-03] MEDS: HYDROCODONE/APAP 5/325 MG TAB PO PRN (22:36)
[2023-05-04] MEDS: HYDROCODONE/APAP 5/325 MG TAB PO PRN ×2 (05:51→13:32)
[2023-05-04] MEDS: LEVOTHYROXINE SOD 0.1 MG TAB PO SCH (05:52)
[2023-05-04 07:23] LABS: Absolute Lymphocytes (CBC) 0.7 K/uL (0.7-4.9); Hematocrit 32.8 % (36.0-45.0); Lymphocytes % 4.9 % (15.3-44.8); MPV 7.6 fL (7.6-11.3); Platelets 305 thou/uL (152-406); RBC Red Blood Cell Count 3.77 M/uL (3.86-4.86)
[2023-05-04 07:26] LABS: Magnesium 2.6 mg/dL (1.6-2.4); Potassium 3.9 mEq/L (3.5-5.1)
--- NOTE | 2023-05-04 08:46 | P.PN ---
Date of Service: 05/04/23 Subjective: Feeling better today Feels some improvement of pain near wound sites R lower extremity erythema slowly improving no new / worsening problems afebrile ROS: 10 point ROS as noted above, otherwise negative Physical Exam: GEN: Alert, oriented, NAD HEENT: Normal conjunctiva, sclera anicteric CV: Regular rate and rhythm, BLE edema up to knee, R > L Pulm: Nonlabored respirations on 2L NC, diminished at bases b/l ABD: Soft, nontender, nondistended MSK: No joint tenderness Integumentary: BLE foot wounds with surrounding erythema/swelling, R > L, RLE with indurated skin mid posterior right thigh. Neuro: Normal speech, normal affect vitals reviewed Problem List: sepsis secondary to cellulitis of right lower extremity CAD with chronic bilateral foot wounds JESSI, resolved Hyponatremia, resolved COPD, on home O2 h/o severe pulm hypertension Hypothyroidism Hypertension sepsis secondary to cellulitis of right lower extremity CAD with chronic bilateral foot wounds Reports chronic wounds for months, but worsened over the past few days sees Dr. Christie every 2 weeks at wound healing center RLE venous u/s (05/02): no DVT Echocardiogram (08/12/2022): 69% EF, mild TR/MR, severe pulm hypertension General surgery - Dr. Christie consulted to eval wounds continue medical management for now to re-eval in next 24-48 hrs for possible I&D UA (05/03): +LE, +WBC, <20 bacteria, trace yeast blood cx (05/02): NGTD urine cx (05/03): pending ID consulted given vanc x1 in ED Continue empiric cefepime / vanc (05/02-) afebrile, leukocytosis improving 29.7 -> 14.6 (05/04) PRN pain medication JESSI, resolved Hyponatremia, resolved IV fluids dc'd 05/03 Monitor electrolytes, replete as needed Continue to monitor renal function both improved COPD, on home O2 h/o severe pulm hypertension CXR (05/02): prominent diffuse COPD On 2L NC; wean as tolerated. has home oxygen, ?1L at home PRN nebs Hypothyroidism Hypertension confirm home medications, restart as appropriate VTE: home eliquis Code: Full Dispo: Home, HH ~2 days vs SNF Pending further workup / improvement, cx results
[2023-05-04] MEDS: METOPROLOL TAR 25 MG TAB PO SCH ×2 (09:00→20:08)
[2023-05-04] MEDS: DULERA 100/5 (MOMETASONE/FORMOTEROL) INHALER IH SCH ×2 (09:08→20:06)
[2023-05-04] MEDS: methocarbamoL 500 MG TAB PO SCH ×2 (09:09→20:04)
[2023-05-04] MEDS: APIXABAN 2.5 MG TABLET PO SCH ×2 (09:09→20:05)
[2023-05-04] MEDS: GABAPENTIN 100 MG CAP PO SCH ×3 (09:10→20:05)
[2023-05-04] MEDS: CEFEPIME 2 GM in NA CHLORIDE 0.9% 100 ML IV SCH ×2 (09:10→20:06)
--- NOTE | 2023-05-04 09:48 | P.CNS ---
Date of Consult: 05/04/23 Reason for Consult: Bilateral lower extremity cellulitis Chief Complaint: BLE cellulitis History of Present Illness: Patient is a 73-year-old female with a past medical history of COPD on home oxygen, hypothyroidism, hypertension, coronary artery disease with chronic foot wound who presented to the emergency department with right lower extremity swelling with for right foot wound that has been worsening over the past 3 days. Patient was admitted for cellulitis of the right lower extremity, hyponatremia, hyperkalemia, acute on chronic kidney injury. Patient sees Dr. Christie as outpatient for wound care. Infectious disease was consulted. Allergies No Known Allergies Allergy (Verified 08/14/22 15:30) Home medications list reviewed: Yes Home Medications: Apixaban [Eliquis *] 2.5 mg PO BID 08/14/22 Hydrocodone 5/APAP 325 [[place] 5/325*] 1 tab PO Q4H PRN 08/14/22 Levothyroxine [Synthroid*] 1 tab PO 0630 08/14/22 Magnesium Oxide [Mag 0X*] 400 mg PO BID 08/14/22 Melatonin [Melatonin*] 3 mg PO BEDTIME 08/14/22 Metoprolol Tartrate [Lopressor*] 25 mg PO BID 08/14/22 Mirtazapine [Remeron] 30 mg PO BEDTIME 08/14/22 Mometasone/Formoterol [Dulera 100 Mcg-5 Mcg Inhaler] 2 puff IN BID 08/14/22 lisinopriL [Lisinopril] 5 mg PO BID 08/14/22 methocarbamoL [Robaxin*] 500 mg PO BID 08/14/22 predniSONE [Deltasone*] 10 mg PO DAILY 08/14/22 Iron/FA/Vit B-Com W/C [Hemocyte Plus*] 1 tab PO DAILY WITH BREAKFAST #30 tab 08/28/22 - Past Medical/Surgical History Diabetic: No -: COPDon home O2 -: Tobacco use -: Attention -: -: Appendectomy Psychosocial/ Personal History: Patient is at home, alone - Family History Mother Medical History: Cancer - Social History Smoking Status: Former smoker Alcohol use: No CD- Drugs: No Caffeine use: No Place of Residence: Home Review of Systems 10-point ROS is otherwise unremarkable Musculoskeletal: Leg Pain, Foot Pain Physical Examination Temp Pulse Resp BP Pulse Ox 99.0 F 72 16 94/56 L 99 05/04/23 08:00 05/04/23 09:00 05/04/23 09:09 05/04/23 09:00 05/04/23 09:09 General: Alert, In no apparent distress, Oriented x3, Other (thin) HEENT: Atraumatic Respiratory: Normal air movement, Diminished, Other (2L nasal cannula) Cardiovascular: Regular rate/rhythm, Edema (BLE ) Gastrointestinal: Normal bowel sounds, Soft and benign, Non-distended Integumentary: Arterial ulcer (Bilateral feet) Neurological: Normal speech, Normal affect Laboratory data -Reviewed Microbiology data -Reviewed Imagings Data: -Reviewed Conclusions/Impression: Problem list Sepsis secondary to right lower extremity cellulitis Chronic arterial ulcers bilateral lower extremities COPD Hypothyroidism Hypertension Hypoalbuminemia Moderate PCM Sepsis secondary to right lower extremity cellulitis Bilateral Foot Arterial Ulcers -Blood cultures 05/02: No growth to date -Patient has been seeing Dr. Christie as outpatient for wound care. - Dr. Christie on case. - Recent left foot wound culture on 02/11 with Enterobacter cloacae -Currently on cefepime and vancomycin (started 05/03) -Urinalysis 05/03: Extremely turbid, LE 500, WBC 20-50, trace yeast -Urine culture 05/03: Pending Leukocytosis improving (WBC 29.7 -> 14.6) Afebrile Recommendations -Cellulitis: continue cefepime and vancomycin for now -Continue wound care per Dr. Christie -Monitor WBC and fever trends -Nutritional supplementation Case discussed with Dr. TinocoN
[2023-05-04] MEDS ORDERED: ALBUTEROL 2.5 MG/3 ML NEB SOL NEB PRN (16:00)
--- NOTE | 2023-05-04 19:22 | PN ---
Date of Progress Note: 05/04/2023 Reason For Service: Cellulitis of right leg. I was called today once again since the patient is refusing dressing changes. Yesterday, she allowed to do with Jose Alberto. Today, she told the nurse, no. Patient was explained not only this time, but in the past also the importance of doing dressing changes. We do understand that hurts, but we are trying to give her some pain medication, trying to minimize the pain, but at the same time we need to change it to diminish the chance of the cellulitis getting worse. She understood. She is going to try and cooperate tomorrow. ARIC/JUSTIN Voice ID: [id number] Report ID: [id number]
[2023-05-04] MEDS: MIRTAZAPINE 15 MG TAB PO SCH (20:05)
[2023-05-04] MEDS: MELATONIN 3 MG TABLET PO SCH (20:07)
[2023-05-04 20:38] VITALS: O2SAT 99
[2023-05-04] MEDS: VANCOMYCIN 1 GM in NA CHLORIDE 0.9% 250 ML IVPB SCH (21:25)
[2023-05-05] MEDS: LEVOTHYROXINE SOD 0.1 MG TAB PO SCH (05:14)
[2023-05-05 07:21] LABS: Absolute Lymphocytes (CBC) 0.8 K/uL (0.7-4.9); Hematocrit 33.8 % (36.0-45.0); Lymphocytes % 8.3 % (15.3-44.8); MCV 86.4 fL (80-100); Platelets 337 thou/uL (152-406); RBC Red Blood Cell Count 3.91 M/uL (3.86-4.86)
[2023-05-05 07:29] LABS: Magnesium 2.5 mg/dL (1.6-2.4); Potassium 3.9 mEq/L (3.5-5.1)
[2023-05-05] MEDS: methocarbamoL 500 MG TAB PO SCH (08:18)
[2023-05-05] MEDS: GABAPENTIN 100 MG CAP PO SCH ×2 (08:18→13:37)
[2023-05-05] MEDS: APIXABAN 2.5 MG TABLET PO SCH (08:18)
[2023-05-05] MEDS: CEFEPIME 2 GM in NA CHLORIDE 0.9% 100 ML IV SCH (08:18)
[2023-05-05] MEDS: METOPROLOL TAR 25 MG TAB PO SCH (08:19)
[2023-05-05] MEDS: DULERA 100/5 (MOMETASONE/FORMOTEROL) INHALER IH SCH (08:21)
[2023-05-05] MEDS ORDERED: COLLAGENASE 30 GM OINTMENT TOP SCH (09:00)
[2023-05-05 12:28] VITALS: TEMP 98.6
--- NOTE | 2023-05-05 13:35 | P.DS ---
Admission Date: 05/02/23 Discharge Date: 05/05/23 Disposition: DC HOME/HOME HEALTH CARE Discharge Condition: FAIR Reason for Admission: BLE cellulitis Brief History of Present Illness: 73-year-old female with a past medical history of COPD with home 02, hypothyroidism, hypertension, CAD with chronic foot wounds presented to the emergency room with right lower extremity swelling, right lower extremity foot wound that got worse over 3 days. She reported increased drainage to the right lower extremity wound, redness, pain and swelling. She reports seeing Dr. Christie every 2 weeks in the wound clinic. Dr. Christie evaluated patient in the emergency room stated patient needed to be treated with IV antibiotics could resume p.o. diet. Infectious disease consulted for antibiotic management. Patient denied fever, cough, chest pain, shortness of breath. Blood work showed leukocytosis, hyponatremia, hyperkalemia, elevated creatinine. Patient diagnosed with acute on chronic kidney injury, sepsis secondary to cellulitis and was admitted for further management. Dr. Christie consulted for wound care eval. Hospital Course: Diagnosis sepsis secondary to cellulitis of right lower extremity CAD with chronic bilateral foot wounds JESSI, resolved Hyponatremia, resolved COPD, on home O2 h/o severe pulm hypertension Hypothyroidism Hypertension sepsis secondary to cellulitis of right lower extremity CAD with chronic bilateral foot wounds Reports chronic wounds for months, but worsened over a few days sees Dr. Christie every 2 weeks at wound healing center RLE venous u/s (05/02): no DVT Echocardiogram (08/12/2022): 69% EF, mild TR/MR, severe pulm hypertension General surgery - Dr. Christie consulted to eval wounds Dr. Christie recommended medical management. UA (05/03): +LE, +WBC, <20 bacteria, trace yeast blood cx (05/02): NGTD urine cx (05/03): Mixed growth Seen by ID Patient received IV cefepime and vancomycin Leukocytosis resolved. Local wound care done. Patient is deemed stable for discharge Follow-up at wound care clinic. JESSI, resolved Hyponatremia, resolved Treated with IV fluids and dc'd 05/03 COPD, on home O2 h/o severe pulm hypertension CXR (05/02): prominent diffuse COPD On 2L NC; wean as tolerated. has home oxygen, 1L at home PRN nebs Resume home bronchodilators. Hypothyroidism Hypertension Continued home medications. Vital Signs/Physical Exam: Temp Pulse Resp BP Pulse Ox 98.6 F 63 16 105/77 98 05/05/23 12:00 05/05/23 12:00 05/05/23 12:00 05/05/23 12:00 05/05/23 12:00 General: Alert, In no apparent distress, Oriented x3 HEENT: Mucous membr. moist/pink Neck: Supple, JVD not distended Respiratory: Clear to auscultation bilaterally Cardiovascular: Regular rate/rhythm, Normal S1 S2, Edema (Bilateral lower extremities) Gastrointestinal: Soft and benign, Non-distended Integumentary: Other (Bilateral lower extremity venous stasis dermatitis) Neurological: Normal strength at 5/5 x4 extr Laboratory Data at Discharge: WBC 9.80 thou/uL (4.3-10.9) 05/05/23 07:04 Hgb 10.7 g/dL (12.0-15.0) L 05/05/23 07:04 Hct 33.8 % (36.0-45.0) L 05/05/23 07:04 Plt Count 337 thou/uL (152-406) 05/05/23 07:04 PT 11.4 SECONDS (9.5-12.5) 05/02/23 17:15 INR 1.04 05/02/23 17:15 APTT 26.9 SECONDS (24.3-36.9) 05/02/23 17:15 Sodium 136 mEq/L (136-145) 05/05/23 07:04 Potassium 3.9 mEq/L (3.5-5.1) 05/05/23 07:04 BUN 15 mg/dL (7-18) 05/05/23 07:04 Creatinine 0.56 mg/dL (0.55-1.02) 05/05/23 07:04 Glucose 97 mg/dL (74-106) 05/05/23 07:04 Phosphorus 4.2 mg/dL (2.5-4.9) 05/03/23 03:43 Magnesium 2.5 mg/dL (1.6-2.4) H 05/05/23 07:04 Total Bilirubin 0.4 mg/dL (0.2-1.0) 05/02/23 17:15 AST 27 U/L (15-37) 05/02/23 17:15 ALT 18 U/L (13-56) 05/02/23 17:15 Alkaline Phosphatase 152 U/L (45-117) H 05/02/23 17:15 Home Medications: Apixaban [Eliquis *] 2.5 mg PO BID 08/14/22 Hydrocodone 5/APAP 325 [[place] 5/325*] 1 tab PO Q4H PRN 08/14/22 Levothyroxine [Synthroid*] 1 tab PO 0630 08/14/22 Melatonin [Melatonin*] 3 mg PO BEDTIME 08/14/22 Metoprolol Tartrate [Lopressor*] 25 mg PO BID 08/14/22 Mirtazapine [Remeron] 30 mg PO BEDTIME 08/14/22 Mometasone/Formoterol [Dulera 100 Mcg-5 Mcg Inhaler] 2 puff IN BID 08/14/22 methocarbamoL [Robaxin*] 500 mg PO BID 08/14/22 predniSONE [Deltasone*] 10 mg PO DAILY 08/14/22 Iron/FA/Vit B-Com W/C [Hemocyte Plus*] 1 tab PO DAILY WITH BREAKFAST #30 tab 08/28/22 Albuterol Neb [Proventil 0.083% Neb Soln] 2.5 mg NEB [id number] PRN #120 amp 05/05/23 Collagenase [Santyl Ointment*] 1 appl TOP DAILY #1 tube 05/05/23 Furosemide [Lasix] 40 mg PO DAILY #30 tab 05/05/23 Gabapentin [Neurontin*] 100 mg PO TID #90 cap 05/05/23 Ipratropium Neb [Atrovent*] 0.5 mg NEB [id number] PRN #120 amp 05/05/23 Nebulizer 1 each MC TID #1 ea 05/05/23 levoFLOXacin [Levaquin] 750 mg PO DAILY #7 tab 05/05/23 New Medications: Ipratropium Neb [Atrovent*] 0.5 mg NEB [id number] PRN #120 amp PRN Reason: Wheezing Albuterol Neb [Proventil 0.083% Neb Soln] 2.5 mg NEB [id number] PRN #120 amp PRN Reason: Shortness Of Breath Furosemide [Lasix] 40 mg PO DAILY #30 tab levoFLOXacin [Levaquin] 750 mg PO DAILY #7 tab Nebulizer 1 each MC TID #1 ea Gabapentin [Neurontin*] 100 mg PO TID #90 cap Collagenase [Santyl Ointment*] 1 appl TOP DAILY #1 tube Diet: AHA Activity: Fall precautions Followup: Jose Alberto Christie MD [ACTIVE - CAN ADMIT] - 1-2 Weeks SUNG FLORES [Primary Care Provider] - 1-2 Weeks Time spent managing pt's care (in minutes): 38
[2023-05-05] MEDS: HYDROCODONE/APAP 5/325 MG TAB PO PRN (13:37)
[2023-05-05] MEDS ORDERED: VANCOMYCIN 1 GM in NA CHLORIDE 0.9% 250 ML IVPB SCH (14:00)
--- NOTE | 2023-05-05 15:07 | P.PN ---
Date of Service: 05/05/23 Chief Complaint: BLE cellulitis Subjective: Improving Patient seen and examined at bedside. Sitting up on side of bed eating breakfast. In no apparent distress. Denies any new or worsening complaints at this time. Physical Examination Temp Pulse Resp BP Pulse Ox 98.6 F 63 16 105/77 98 05/05/23 12:00 05/05/23 12:00 05/05/23 13:37 05/05/23 12:00 05/05/23 13:37 General: Alert, In no apparent distress, Oriented x3. Thin, frail. HEENT: Atraumatic Respiratory: Normal air movement, Diminished. 2L nasal cannula. Cardiovascular: Regular rate/rhythm. BLE edema. Gastrointestinal: Normal bowel sounds, Soft and benign, Non-distended Integumentary: Arterial ulcers bilateral feet, dressing clean dry and intact. Neurological: Normal speech, Normal affect Laboratory data -Reviewed Microbiology data -Urinalysis 05/03: Extremely turbid, LE 500, WBC 20-50, trace yeast -Urine culture 05/03: mixed daniel Imagings Data: -Reviewed Medications List: Reviewed Assessment and Plan Problem list Sepsis secondary to right lower extremity cellulitis Chronic arterial ulcers bilateral lower extremities COPD Hypothyroidism Hypertension Hypoalbuminemia Moderate PCM Sepsis secondary to right lower extremity cellulitis Bilateral Foot Arterial Ulcers -Blood cultures 05/02: No growth to date -Patient has been seeing Dr. Christie as outpatient for wound care. - Dr. Christie on case. - Recent left foot wound culture on 02/11 with Enterobacter cloacae -Currently on cefepime and vancomycin (started 05/03) Leukocytosis resolved. Afebrile QTc 422 Recommendations -Cellulitis: Continue antibiotic therapy for 10 days. Consider switch to Ciprofloxacin PO upon discharge to complete remainder of antibiotic course. -Continue wound care per Dr. Christie -Monitor WBC and fever trends -Nutritional supplementation Follow up with Dr. Christie for wound care as outpatient Case discussed with Ingrid Mcneal
[2023-05-05 16:03] VITALS: BP 111/70
== END 2023-05-05 16:47 | disposition home health service (06) | DRG 872 ==
LOC: ER 15:50 → ERHOLD 19:53 → 4TH 20:43
PROVIDERS: ADMIT Hospitalist; ATTEND Internal Medicine
DX: A41.9 Sepsis, unspecified organism (principal); L03.115 Cellulitis of right lower limb; E87.1 Hypo-osmolality and hyponatremia; N17.9 Acute kidney failure, unspecified; E44.0 Moderate protein-calorie malnutrition; Z68.1 Body mass index [BMI] 19.9 or less, adult; L97.929 Non-pressure chronic ulcer of unspecified part of left lower leg with unspecified severity; L97.919 Non-pressure chronic ulcer of unspecified part of right lower leg with unspecified severity; E03.9 Hypothyroidism, unspecified; E87.5 Hyperkalemia; I12.9 Hypertensive chronic kidney disease with stage 1 through stage 4 chronic kidney disease, or unspecified chronic kidney disease; N18.9 Chronic kidney disease, unspecified; D63.1 Anemia in chronic kidney disease; E88.09 Other disorders of plasma-protein metabolism, not elsewhere classified; J44.9 Chronic obstructive pulmonary disease, unspecified; I25.10 Atherosclerotic heart disease of native coronary artery without angina pectoris; Z60.2 Problems related to living alone; Z79.01 Long term (current) use of anticoagulants; Z79.52 Long term (current) use of systemic steroids; Z90.49 Acquired absence of other specified parts of digestive tract; Z99.81 Dependence on supplemental oxygen; Z79.890 Hormone replacement therapy; Z87.891 Personal history of nicotine dependence; Z79.899 Other long term (current) drug therapy
CPT/HCPCS: 36415; 71045; 80048; 80053; 80202; 81001; 82947; 83605; 83735; 84100; 85025; 85610; 85730; 87040; 87086; 87088; 93005; 93971; 94760; 96365; 96366; 96375; 99285; J0692; J1170; J2270; J2405; J3535; J3590; J7030; J7050; J7613

== ENCOUNTER 2023-06-08 11:22 | Inpatient (IN) | payer OTHER ==
[2023-06-08] MEDS ORDERED: NA CHLORIDE 0.9% 1,000 ML ONE ×2 (11:44→13:14)
[2023-06-08] MEDS ORDERED: NA CHLORIDE 0.9% 500 ML ONE ×2 (11:44→13:14)
--- NOTE | 2023-06-08 12:51 | RAD REPORT ---
EXAM DESCRIPTION: RAD - Knee Left 3 View - 06/08/2023 11:52 am CLINICAL HISTORY: Left knee pain FINDINGS: No fracture or dislocation is seen. Osteoporosis. Diffuse swelling within the subcutaneous tissues
[2023-06-08] MEDS ORDERED: VANCOMYCIN 1 GM/VIAL ONE ×2 (13:13→21:47)
[2023-06-08] MEDS ORDERED: NA CHLORIDE 0.9% 100 ML ONE ×2 (13:14→21:48)
[2023-06-08] MEDS ORDERED: ONDANSETRON 4 MG/2 ML VIAL ONE ×2 (13:14→21:47)
[2023-06-08] MEDS ORDERED: FENTANYL CITR 100 MCG/2 ML ONE (13:14)
[2023-06-08] MEDS ORDERED: AMPICILLIN/SULBACTAM 3GM/VIAL ONE (13:15)
--- NOTE | 2023-06-08 13:49 | RAD REPORT ---
EXAM DESCRIPTION: Ruben Single View06/08/2023 1:19 pm CLINICAL HISTORY: Shortness of breath COMPARISON: April 2023 FINDINGS: Will lungs are hyperaerated. Mild chronic appearing interstitial lung opacities. The lungs appear clear of acute infiltrate. The heart is normal size IMPRESSION: No acute abnormalities displayed
[2023-06-08 14:00] LABS: Absolute Lymphocytes (CBC) 0.8 K/uL (0.7-4.9); Hematocrit 32.6 % (36.0-45.0); Lymphocytes % 6.7 % (15.3-44.8); MCV 83.7 fL (80-100); MPV 6.9 fL (7.6-11.3); Platelets 378 thou/uL (152-406); RBC Red Blood Cell Count 3.89 M/uL (3.86-4.86)
[2023-06-08 14:05] LABS: Protime INR 1.11
[2023-06-08] MEDS ORDERED: NA CHLORIDE 0.9% 250 ML ONE ×2 (14:05→21:48)
--- NOTE | 2023-06-08 14:11 | EDPHYS ---
Physician Documentation [facility] Name: Elena Bruno Age: 73 yrs Sex: Female : 1950 Arrival Date: 06/08/2023 Time: 11:22 Bed 15 Private MD: ED Physician Mc Ibarra HPI: 06/08 13:01 This 73 yrs old Female presents to ER via EMS with complaints of Knee Pain. anastasia 13:01 The patient presents with decreased range of motion, pain, that is acute. The anastasia complaints affect the lateral aspect of left knee, lateral aspect of left calf, left lateral ankle, lateral aspect of left foot, medial aspect of left knee, medial aspect of left calf, left medial ankle, medial aspect of left foot, left knee, left lan, anterior aspect of left ankle and dorsum of left foot. Context: The problem was sustained at an unknown site. Onset: The symptoms/episode began/occurred 3 day(s) ago. Modifying factors: The symptoms are alleviated by elevating leg, the symptoms are aggravated by movement, weight bearing, bending knee. Associated signs and symptoms: The patient has no apparent associated signs or symptoms. Treatment prior to arrival includes: no previous treatment. Severity of symptoms: At their worst the symptoms were moderate, in the emergency department the symptoms are unchanged. The patient has not experienced similar symptoms in the past. Historical: - Allergies: : No Known Allergies; ld1 - PMHx: 11: Chronic obstructive lung disease; Hypertensive disorder; Hypothyroidism; ld1 - Immunization history:: Adult Immunizations up to date. - Social history:: Smoking status: Patient/guardian denies using tobacco, the patient reports quitting approximately 10 years ago, Patient/guardian denies using alcohol. - Family history:: not pertinent. ROS: 13:01 Constitutional: Negative for fever, chills, and weight loss, Eyes: Negative for injury, anastasia pain, redness, and discharge, ENT: Negative for injury, pain, and discharge, Neck: Negative for injury, pain, and swelling, Cardiovascular: Negative for chest pain, palpitations, and edema, Respiratory: Negative for shortness of breath, cough, wheezing, and pleuritic chest pain, Abdomen/GI: Negative for abdominal pain, nausea, vomiting, diarrhea, and constipation, Back: Negative for injury and pain, : Negative for injury, bleeding, discharge, and swelling, Neuro: Negative for headache, weakness, numbness, tingling, and seizure, Psych: Negative for depression, anxiety, suicide ideation, homicidal ideation, and hallucinations, Allergy/Immunology: Negative for hives, rash, and allergies, Endocrine: Negative for neck swelling, polydipsia, polyuria, polyphagia, and marked weight changes, 13:01 MS/extremity: Positive for decreased range of motion, erythema, pain, warmth, of the right leg and left leg, Exam: 13:01 Constitutional: This is a well developed, well nourished patient who is awake, alert, anastasia and in no acute distress. Head/Face: Normocephalic, atraumatic. Eyes: Pupils equal round and reactive to light, extra-ocular motions intact. Lids and lashes normal. Conjunctiva and sclera are non-icteric and not injected. Cornea within normal limits. Periorbital areas with no swelling, redness, or edema. ENT: Nares patent. No nasal discharge, no septal abnormalities noted. Tympanic membranes are normal and external auditory canals are clear. Oropharynx with no redness, swelling, or masses, exudates, or evidence of obstruction, uvula midline. Mucous membranes moist. Neck: Trachea midline, no thyromegaly or masses palpated, and no cervical lymphadenopathy. Supple, full range of motion without nuchal rigidity, or vertebral point tenderness. No Meningismus. Chest/axilla: Normal chest wall appearance and motion. Nontender with no deformity. No lesions are appreciated. Cardiovascular: Regular rate and rhythm with a normal S1 and S2. No gallops, murmurs, or rubs. Normal PMI, no JVD. No pulse deficits. Respiratory: Lungs have equal breath sounds bilaterally, clear to auscultation and percussion. No rales, rhonchi or wheezes noted. No increased work of breathing, no retractions or nasal flaring. Abdomen/GI: Soft, non-tender, with normal bowel sounds. No distension or tympany. No guarding or rebound. No evidence of tenderness throughout. Back: No spinal tenderness. No costovertebral tenderness. Full range of motion. Neuro: Awake and alert, GCS 15, oriented to person, place, time, and situation. Cranial nerves II-XII grossly intact. Motor strength 5/5 in all extremities. Sensory grossly intact. Cerebellar exam normal. Normal gait. Psych: Awake, alert, with orientation to person, place and time. Behavior, mood, and affect are within normal limits. 13:01 Musculoskeletal/extremity: Circulation is intact in all extremities. Sensation intact. LEFT LEG TENDER , RED Compartment Syndrome exam of affected extremity: is normal. DVT Exam: negative Homans' sign noted on exam, no appreciated bluish discoloration, pain, swelling, tenderness, erythema, increased warmth, 13:01 Skin: cellulitis, that is moderate, on the right leg and left leg, 15:12 ECG was reviewed by the Attending Physician. [facility] Vital Signs: 11:27 BP 153 / 91; Pulse 86; Resp 18; Temp 98.5(TE); Pulse Ox 99% on R/A; Weight 52.16 kg; ld1 Height 5 ft. 3 in. ; Pain 8/10; 14:00 BP 160 / 102; Pulse 90; Resp 18; Pulse Ox 100% on R/A; ld1 14:47 BP 140 / 90; Pulse 92; Resp 18; Pulse Ox 100% on 3 lpm NC; ld1 15:14 BP 135 / 102; Pulse 90; Resp 22; Pulse Ox 99% on 2 lpm NC; ld1 11:27 Body Mass Index 20.37 (52.16 kg, 160.02 cm) ld1 11:27 Pain Scale: Adult ld1 MDM: 11:25 Patient medically screened. anastasia 11:25 Patient medically screened. [facility] 13:05 Differential diagnosis: closed fracture, contusion, tendonitis. Data reviewed: vital anastasia signs, nurses notes, lab test result(s), EKG, radiologic studies, doppler, plain films. Consideration of Admission/Observation Patient was admitted/placed on observation. Escalation of care including admission/observation considered. I considered the following discharge prescriptions or medication management in the emergency department Medications were administered in the Emergency Department. See MAR. Independent interpretation of the following test(s) in the Emergency Department EKG: See my EKG interpretation above. Test considered but Not performed: MRI: NO KNEE MRI. Care significantly affected by the following chronic conditions: Hypertension, Chronic Obstructive Pulmonary Disease, HYPOTHYROID. 06/08 11:26 Order name: CBC with Diff; Complete Time: 14:24 [facility] 06/08 11:26 Order name: Comprehensive Metabolic Panel; Complete Time: 14:18 [facility] 06/08 11:26 Order name: Uric Acid; Complete Time: 14:18 [facility] 06/08 12:33 Order name: Blood Culture Adult (2) [facility] 06/08 12:33 Order name: Lactate w/ 2H reflex if indic.; Complete Time: 14:16 [facility] 06/08 12:33 Order name: LFT's [facility] 06/08 12:33 Order name: Magnesium [facility] 06/08 12:33 Order name: NT PRO-BNP [facility] 06/08 12:33 Order name: PT-INR; Complete Time: 14:08 [facility] 06/08 12:33 Order name: Troponin HS [facility] 06/08 12:33 Order name: TSH [facility] 06/08 14:08 Order name: Manual Differential; Complete Time: 14:24 EDMS 06/08 14:08 Order name: CBC Smear Scan; Complete Time: 14:24 EDMS 06/08 14:40 Order name: T4 Free EDMS 06/08 15:02 Order name: Basic Metabolic Panel EDMS 06/08 15:02 Order name: Basic Metabolic Panel EDMS 06/08 15:02 Order name: CBC with Automated Diff EDMS 06/08 15:02 Order name: CBC with Automated Diff EDMS 06/08 15:02 Order name: Magnesium EDMS 06/08 15:02 Order name: Magnesium EDMS 06/08 15:02 Order name: Phosphorus EDMS 06/08 15:02 Order name: Phosphorus EDMS 06/08 11:26 Order name: Knee Left 3 View XRAY; Complete Time: 13:32 [facility] 06/08 12:33 Order name: XRAY Chest (1 view); Complete Time: 14:08 [facility] 06/08 12:33 Order name: US Extremity Venous W Compression Nick [facility] 06/08 12:33 Order name: US LE Arterial Bilateral [facility] 06/08 12:33 Order name: EKG; Complete Time: 12:34 [facility] 06/08 15:02 Order name: Patient Safety Orders EDSC 06/08 15:02 Order name: Physical Therapy Consult EDSC 06/08 11:57 Order name: Misc. Order: recollect all labs; Complete Time: 12:08 jl7 06/08 12:33 Order name: Cardiac monitoring; Complete Time: 14:39 [facility] 06/08 12:33 Order name: EKG - Nurse/Tech; Complete Time: 14:39 [facility] 06/08 12:33 Order name: IV Saline Lock; Complete Time: 14:00 [facility] 06/08 12:33 Order name: Labs collected and sent; Complete Time: 14: [facility] 06/08 12:33 Order name: O2 Per Protocol; Complete Time: 13:08 [facility] 06/08 12:33 Order name: O2 Sat Monitoring; Complete Time: 13:08 [facility] EC:12 Rate is 92 beats/min. Rhythm is regular. QRS [place] is Normal. SC interval is normal. QRS anastasia interval is normal. QT interval is normal. No Q waves. T waves are Normal. No ST changes noted. Clinical impression: NSR w/ Non-specific ST/T Changes and No evidence of ischemia. Interpreted by me. Reviewed by me. Administered Medications: 11:55 Drug: NS 0.9% IV 500 ml IV at bolus once Route: IV; Rate: bolus; Site: right hand; 1 06/09 06:46 Follow up: Response: No adverse reaction; IV Status: Completed infusion; IV Intake: jw7 500ml 06/08 12:09 Drug: NS 0.9% IV 1000 ml IV at 125 ml/hr continuous Route: IV; Rate: 125 ml/hr; Site: ld1 right hand; 06/09 06:46 Follow up: Response: No adverse reaction; IV Status: Completed infusion; IV Intake: jw7 1000ml 06/08 13:53 Drug: Ondansetron IVP 4 mg IVP once; over 2 minutes Route: IVP; Site: right hand; 1 06/09 06:45 Follow up: Response: No adverse reaction; Marked relief of symptoms [facility] 06/08 14:00 Drug: Ampicillin-Sulbactam Sodium IVPB 3 grams IVPB once over 30 mins; (mix in 100 mL ld1 NS) Route: IVPB; Infused Over: 30 mins; Site: right hand; 06/09 06:45 Follow up: Response: No adverse reaction; IV Status: Completed infusion; IV Intake: jw7 100ml 06/08 14:46 Drug: fentaNYL (PF) IVP 25 mcg IVP once Route: IVP; Site: right wrist; ld1 06/09 06:45 Follow up: Response: No adverse reaction; Marked relief of symptoms [facility] 06/08 14:47 Drug: vancoMYCIN IVPB 1 grams IVPB once over 2 hrs Route: IVPB; Infused Over: 2 hrs; ld1 Site: right wrist; 06/09 06:45 Follow up: Response: No adverse reaction; IV Status: Completed infusion; IV Intake: jw7 250ml Disposition Summary: 06/08/23 14:11 Hospitalization Ordered Notes: Hospitalization Status: Inpatient Admission anastasia Provider: Saulo Isaacs cha Condition: Fair anastasia Problem: new anastasia Symptoms: have improved anastasia Bed/Room Type: Standard anastasia Location: Intensive Care Unit(06/09/23 05:05) cg Room Assignment: 3-(06/09/23 05:05) cg Diagnosis - Cellulitis and acute lymphangitis of other parts of limb - LEFT LOWER EXTREMITY anastasia - Cellulitis and acute lymphangitis of other sites - RIGHT LOWER EXT anastasia - Pain in left knee - NORMAL PASSIVE ROM anastasia - Elevated white blood cell count anastasia - COPD/ Chronic obstructive pulmonary disease, unspecified anastasia Forms: - Medication Reconciliation Form anastasia - SBAR form anastasia - Leadership Thank You Letter [facility] Signatures: Dispatcher [employer] EDMS Mc Ibarra MD MD cha Attema, Lee, ACCOUNT ADMINISTRATOR-C ACCOUNT ADMINISTRATOR-Cla1 Teodora Price, RN RN cg Michael Wilkins RN RN jl7 Prisca Aldana Lauren RN RN ld1 Soraida Donohue RN jw7 Corrections: (The following items were deleted from the chart) 06/08 13:56 12:34 BASIC METABOLIC PANEL+C.LAB.BRZ ordered. EDSC EDSC 15:44 14:11 Telemetry/MedSurg (Inpatient) [facility] eb 15:44 14:11 anastasia eb 06/09 05:05 06/08 15:44 [facility] ER HOLD eb cg 06/09 05:05 06/08 15:44 ERHOLD- eb cg
--- NOTE | 2023-06-08 14:11 | ER ---
Nurse's Notes [facility] Name: Elena Bruno Age: 73 yrs Sex: Female : 1950 Arrival Date: 06/08/2023 Time: 11:22 Bed 15 Private MD: Diagnosis: Cellulitis and acute lymphangitis of other parts of limb-LEFT LOWER EXTREMITY;Cellulitis and acute lymphangitis of other sites-RIGHT LOWER EXT;Pain in left knee-NORMAL PASSIVE ROM;Elevated white blood cell count;COPD/ Chronic obstructive pulmonary disease, unspecified Presentation: 06/08 11:27 Chief complaint: EMS states: toned out to pt home for pain to left knee. Swelling to ld1 left knee - denies injury to left knee. Coronavirus screen: At this time, the client does not indicate any symptoms associated with coronavirus-19. Ebola Screen: No symptoms or risks identified at this time. Initial Sepsis Screen: Does the patient meet any 2 criteria? No. Patient's initial sepsis screen is negative. Does the patient have a suspected source of infection? No. Patient's initial sepsis screen is negative. Risk Assessment: Do you want to hurt yourself or someone else? Patient reports no desire to harm self or others. Onset of symptoms was June 08, 2023. 11:27 Method Of Arrival: EMS: [facility] ld1 11:27 Acuity: FABBY 3 ld1 Triage Assessment: 11:27 General: Appears in no apparent distress. comfortable, Behavior is calm, cooperative, ld1 appropriate for age. Pain: Complains of pain in left leg Pain does not radiate. Pain currently is 9 out of 10 on a pain scale. Quality of pain is described as throbbing, Pain began suddenly, Is continuous. EENT: No signs and/or symptoms were reported regarding the EENT system. Neuro: Level of Consciousness is awake, alert, obeys commands, Oriented to person, place, time, situation. Cardiovascular: Capillary refill < 3 seconds Patient's skin is warm and dry. Respiratory: Airway is patent Respiratory effort is even, unlabored. GI: Abdomen is flat, non-distended. : No signs and/or symptoms were reported regarding the genitourinary system. Derm: No signs and/or symptoms reported regarding the dermatologic system. Musculoskeletal: No signs and/or symptoms reported regarding the musculoskeletal system. Historical: - Allergies: 11:26 No Known Allergies; ld1 - PMHx: 11:26 Chronic obstructive lung disease; Hypertensive disorder; Hypothyroidism; ld1 - Immunization history:: Adult Immunizations up to date. - Social history:: Smoking status: Patient/guardian denies using tobacco, the patient reports quitting approximately 10 years ago, Patient/guardian denies using alcohol. - Family history:: not pertinent. Screenin:30 [facility] ED Fall Risk Assessment (Adult) History of falling in the last 3 months, ld1 including since admission No falls in past 3 months (0 pts). Abuse screen: Denies threats or abuse. Denies injuries from another. Nutritional screening: No deficits noted. Tuberculosis screening: No symptoms or risk factors identified. Assessment: 11:29 Reassessment: See triage assessment. ld1 Vital Signs: 11:27 BP 153 / 91; Pulse 86; Resp 18; Temp 98.5(TE); Pulse Ox 99% on R/A; Weight 52.16 kg; ld1 Height 5 ft. 3 in. ; Pain 8/10; 14:00 BP 160 / 102; Pulse 90; Resp 18; Pulse Ox 100% on R/A; ld1 14:47 BP 140 / 90; Pulse 92; Resp 18; Pulse Ox 100% on 3 lpm NC; ld1 15:14 BP 135 / 102; Pulse 90; Resp 22; Pulse Ox 99% on 2 lpm NC; ld1 11:27 Body Mass Index 20.37 (52.16 kg, 160.02 cm) ld1 11:27 Pain Scale: Adult ld1 ED Course: 11:24 Patient arrived in ED. anastasia 11:25 Mc Ibarra MD is Attending Physician. anastasia 11:26 Luz Maria Pérez, CHRIS is Primary Nurse. ld1 11:27 Arm band placed on right wrist. ld1 11:28 Triage completed. ld1 11:30 Patient has correct armband on for positive identification. Placed in gown. Bed in low ld1 position. Call light in reach. Side rails up X2. monitoring tech on. Pulse ox on. NIBP on. Door closed. Noise minimized. Warm blanket given. 11:30 No provider procedures requiring assistance completed. ld1 11:54 Knee Left 3 View XRAY In Process Unspecified. EDMS 11:55 Inserted saline lock: 22 gauge in right hand, using aseptic technique. ld1 12:08 Comprehensive Metabolic Panel Sent. ld1 12:08 CBC with Diff Sent. ld1 12:09 Uric Acid Sent. ld1 13:21 XRAY Chest (1 view) In Process Unspecified. EDMS 13:45 Missed attempt(s): 22 gauge in left antecubital area. Bleeding controlled, band aid ll1 applied, catheter tip intact. 13:50 Inserted saline lock: 22 gauge in left forearm, using aseptic technique. Blood ll1 collected. 14:00 Lactate w/ 2H reflex if indic. Sent. ld1 14:00 Blood Culture Adult (2) Sent. ld1 14:09 Saulo Isaacs is Hospitalizing Provider. anastasia 14:41 US Extremity Venous W Compression Nick In Process Unspecified. EDMS 14:41 US LE Arterial Bilateral In Process Unspecified. EDMS 01 01:50 Provided Education on: need for admit. jw 01:50 Patient admitted, IV remains in place. jw7 Administered Medications: 06/08 11:55 Drug: NS 0.9% IV 500 ml IV at bolus once Route: IV; Rate: bolus; Site: right hand; ld1 06/09 06:46 Follow up: Response: No adverse reaction; IV Status: Completed infusion; IV Intake: jw7 500ml 06/08 12:09 Drug: NS 0.9% IV 1000 ml IV at 125 ml/hr continuous Route: IV; Rate: 125 ml/hr; Site: ld1 right hand; 06/09 06:46 Follow up: Response: No adverse reaction; IV Status: Completed infusion; IV Intake: jw7 1000ml 06/08 13:53 Drug: Ondansetron IVP 4 mg IVP once; over 2 minutes Route: IVP; Site: right hand; ld1 06/09 06:45 Follow up: Response: No adverse reaction; Marked relief of symptoms jw7 06/08 14:00 Drug: Ampicillin-Sulbactam Sodium IVPB 3 grams IVPB once over 30 mins; (mix in 100 mL ld1 NS) Route: IVPB; Infused Over: 30 mins; Site: right hand; 06/09 06:45 Follow up: Response: No adverse reaction; IV Status: Completed infusion; IV Intake: jw7 100ml 06/08 14:46 Drug: fentaNYL (PF) IVP 25 mcg IVP once Route: IVP; Site: right wrist; ld1 06/09 06:45 Follow up: Response: No adverse reaction; Marked relief of symptoms jw7 06/08 14:47 Drug: vancoMYCIN IVPB 1 grams IVPB once over 2 hrs Route: IVPB; Infused Over: 2 hrs; ld1 Site: right wrist; 06/09 06:45 Follow up: Response: No adverse reaction; IV Status: Completed infusion; IV Intake: jw7 250ml Medication: 06/08 11:30 VIS not applicable for this client. ld1 Intake: 06/09 06:45 IV: 100ml; Total: 100ml. jw7 06:45 IV: 250ml; Total: 350ml. jw7 06:46 IV: 1000ml; Total: 1350ml. jw7 06:46 IV: 500ml; Total: 1850ml. jw7 Outcome: 06/08 14:11 Decision to Hospitalize by Provider. anastasia 06/09 01:50 Admitted to ER Hold. Please see [facility] for further documentation. jw7 Condition: stable Instructed on the need for admit, Demonstrated understanding of instructions, 06:44 Patient left the ED. jw7 Signatures: Dispatcher [employer] EDMc Diamond MD MD cha Lewis, Lynsay, RN RN ll1 Luz Maria Pérez RN RN [email or web address] Soraida Donohue RN RN jw7
[2023-06-08 14:17] LABS: Albumin 2.1 g/dL (3.4-5.0); Bilirubin Total 0.2 mg/dL (0.2-1.0); Potassium 4.5 mEq/L (3.5-5.1); Protein, Total 6.9 g/dL (6.4-8.2)
[2023-06-08 14:21] LABS: Blood Morphology Comment NOT SEEN (NOT SEEN); Platelet Estimate ADEQ; White Blood Cell Scan OK (OK)
[2023-06-08 14:37] LABS: ALT/SGPT 12 U/L (13-56); Albumin 2.1 g/dL (3.4-5.0); Alkaline Phosphatase 103 U/L (45-117); Bilirubin Total 0.2 mg/dL (0.2-1.0); NT PRO-BNP 380 pg/mL (<125)
[2023-06-08 14:38] LABS: AST/SGOT 22 U/L (15-37); Bilirubin Direct < 0.1 mg/dL (0-0.2); Bilirubin Indirect, Calculated ND mg/dL (0.2-0.8); Magnesium 2.2 mg/dL (1.6-2.4)
[2023-06-08] MEDS ORDERED: ACETAMINOPHEN 500 MG TAB PO PRN (14:52)
[2023-06-08] MEDS ORDERED: ONDANSETRON 4 MG/2 ML VIAL IV PRN (14:52)
--- NOTE | 2023-06-08 14:55 | RAD REPORT ---
EXAM DESCRIPTION: USExtrem Venous W Compress Bil06/08/2023 2:39 pm CLINICAL HISTORY: Leg pain COMPARISON: April 2023 FINDINGS: The common femoral, superficial femoral, greater saphenous, popliteal and posterior tibial veins bilaterally are compressible and demonstrate augmentation. Doppler demonstrates good flow. 2 centimeter left Shah's cyst Grayscale, color and spectral analysis performed on all vessels IMPRESSION: No evidence of deep venous thrombosis involving either lower extremity. 2 centimeter left Shah's cyst
--- NOTE | 2023-06-08 14:58 | RAD REPORT ---
EXAM DESCRIPTION: US - Lower Extremity Arterial Bilat - 06/08/2023 2:39 pm CLINICAL HISTORY: Leg pain COMPARISON: August 2022 FINDINGS: Right common femoral, superficial femoral and popliteal arteries demonstrate monophasic waveforms The right posterior tibial and dorsalis pedis arteries demonstrate monophasic waveforms The left common femoral, superficial femoral and popliteal arteries demonstrate monophasic waveforms The left posterior tibial and dorsalis pedis arteries demonstrate monophasic waveforms Grayscale, color and spectral analysis performed on all vessels IMPRESSION: Abnormal waveforms lower extremities bilaterally may indicate aortoiliac disease
--- NOTE | 2023-06-08 15:07 | P.HP ---
Certification for Inpatient Patient admitted to: Observation With expected LOS: <2 Midnights Practitioner: I am a practitioner with admitting privileges, knowledge of patient current condition, hospital course, and medical plan of care. Services: Services provided to patient in accordance with Admission requirements found in Title 42 Section 412.3 of the Code of Federal Regulations Patient History Date of Service: 06/08/23 Reason for admission: Left knee pain History of Present Illness: 73-year-old woman with a history of chronic bilateral lower extremity ulcers, venous stasis dermatitis who follows with Dr. Christie was brought to the emergency department by EMS due to left knee pain. Patient reports left knee pain of 2 days duration, described as leg cramps. She denies any fever, no knee swelling. Workup in the emergency department showed mild leukocytosis. X-ray of the left knee shows subcutaneous swelling, no joint abnormality and subcutaneous gas. Patient was complaining of pain during my examination and states she cannot walk because of the pain. ED provider wishes to hospitalize patient for further management. Allergies No Known Allergies Allergy (Verified 08/14/22 15:30) Home Medications: Apixaban [Eliquis *] 2.5 mg PO BID 08/14/22 Hydrocodone 5/APAP 325 [Drexel 5/325*] 1 tab PO Q4H PRN 08/14/22 Levothyroxine [Synthroid*] 1 tab PO 0630 08/14/22 Melatonin [Melatonin*] 3 mg PO BEDTIME 08/14/22 Metoprolol Tartrate [Lopressor*] 25 mg PO BID 08/14/22 Mirtazapine [Remeron] 30 mg PO BEDTIME 08/14/22 Mometasone/Formoterol [Dulera 100 Mcg-5 Mcg Inhaler] 2 puff IN BID 08/14/22 methocarbamoL [Robaxin*] 500 mg PO BID 08/14/22 predniSONE [Deltasone*] 10 mg PO DAILY 08/14/22 Iron/FA/Vit B-Com W/C [Hemocyte Plus*] 1 tab PO DAILY WITH BREAKFAST #30 tab 08/28/22 Albuterol Neb [Proventil 0.083% Neb Soln] 2.5 mg NEB [id number] PRN #120 amp 05/05/23 Collagenase [Santyl Ointment*] 1 appl TOP DAILY #1 tube 05/05/23 Furosemide [Lasix] 40 mg PO DAILY #30 tab 05/05/23 Gabapentin [Neurontin*] 100 mg PO TID #90 cap 05/05/23 Ipratropium Neb [Atrovent*] 0.5 mg NEB [id number] PRN #120 amp 05/05/23 Nebulizer 1 each MC TID #1 ea 05/05/23 levoFLOXacin [Levaquin] 750 mg PO DAILY #7 tab 05/05/23 - Past Medical/Surgical History Diabetic: No -: COPDon home O2 -: Tobacco use -: Attention -: Chronic venous stasis dermatitis -: -: Appendectomy Psychosocial/ Personal History: Patient is at home, alone - Family History Mother -: Cancer - Social History Alcohol use: No CD- Drugs: No Caffeine use: No Review of Systems Other: Patient denies any abdominal pain chest pain or shortness of breath. She denies any cough. Except as documented, all other systems reviewed and negative. Physical Examination - Physical Exam General: Alert, In no apparent distress, Oriented x3, Cachectic HEENT: Mucous membr. moist/pink, Sclerae nonicteric Neck: Supple, JVD not distended Respiratory: Clear to auscultation bilaterally, Normal air movement Cardiovascular: Regular rate/rhythm, Normal S1 S2, Edema (Bilateral lower extremities) Capillary refill: <2 Seconds Gastrointestinal: Normal bowel sounds, Soft and benign, Non-distended, No tenderness Musculoskeletal: Tenderness (Tenderness in the left subpatellar area) Integumentary: No cyanosis, Venous stasis ulcer (Bilateral legs), Other (Venous stasis dermatitis-bilateral legs) Neurological: Normal speech, Normal strength at 5/5 x4 extr, Cranial nerves 3-12 intact Lymphatics: Other (No palpable lymph nodes in the neck or clavicle area) - Studies Laboratory Data (last 24 hrs) 06/08/23 06/08/23 06/08/23 13:43 13:43 13:43 WBC Hgb Hct Plt Count PT 12.2 INR 1.11 Sodium Cancelled 138 Potassium Cancelled 4.5 BUN Cancelled 15 Creatinine Cancelled 0.67 Glucose Cancelled 96 Uric Acid 2.0 L Magnesium 2.2 Total Bilirubin 0.2 0.2 AST 22 20 ALT 12 L 11 L Alkaline Phosphatase 103 99 06/08/23 13:43 WBC 12.20 H Hgb 10.6 L Hct 32.6 L Plt Count 378 PT INR Sodium Potassium BUN Creatinine Glucose Uric Acid Magnesium Total Bilirubin AST ALT Alkaline Phosphatase Assessment and Plan - Problems (Diagnosis) (1) Left knee pain Current Visit: Yes Status: Acute (2) Cellulitis of lower extremity Current Visit: Yes Status: Acute (3) COPD (chronic obstructive pulmonary disease) Current Visit: No Status: Acute Qualifiers: (4) Lower extremity edema Current Visit: No Status: Acute (5) Severe protein-calorie malnutrition Current Visit: No Status: Acute (6) Venous stasis ulcers of both lower extremities Current Visit: No Status: Ruled-out - Plan Left knee pain/lower extremity cellulitis Patient was having leg cramps during my examination in the ED. Because of left knee pain unclear. X-ray of the knee demonstrates subcutaneous swelling We will treat for cellulitis with IV cefepime and vancomycin Analgesics as needed. Pain is affecting patient's ability to walk. Will consult PT Lower extremity venous stasis dermatitis/venous stasis ulcer Chronic nonhealing bilateral foot wounds Dr. Christie is managing as outpatient. Continue local wound care. Patient started on antibiotics. COPD Stable without acute exacerbation Continue home bronchodilators. Severe protein calorie malnutrition Nutritional supplementation. - Advance Directives Does patient have a Living Will: No Does patient have a Durable POA for Healthcare: No
[2023-06-08] MEDS ORDERED: CEFEPIME 2 GM VIAL ONE (21:48)
[2023-06-08] MEDS ORDERED: HYDROCODONE/APAP 5/325 MG TAB ONE (21:48)
[2023-06-08] MEDS: CEFEPIME 2 GM in NA CHLORIDE 0.9% 100 ML IV SCH (23:00)
[2023-06-08] MEDS: HYDROCODONE/APAP 5/325 MG TAB PO PRN (23:00)
[2023-06-09] MEDS: CEFEPIME 2 GM in NA CHLORIDE 0.9% 100 ML IV SCH ×3 (01:28→20:59)
[2023-06-09] MEDS: VANCOMYCIN 1 GM in NA CHLORIDE 0.9% 250 ML IVPB SCH ×2 (01:30→09:32)
[2023-06-09 04:40] LABS: Absolute Lymphocytes (CBC) 0.4 K/uL (0.7-4.9); Hematocrit 39.5 % (36.0-45.0); MCV 84.4 fL (80-100); MPV 7.1 fL (7.6-11.3); Platelets 256 thou/uL (152-406); RBC Red Blood Cell Count 4.69 M/uL (3.86-4.86)
[2023-06-09 05:06] LABS: Phosphorus 2.7 mg/dL (2.5-4.9); Potassium 3.9 mEq/L (3.5-5.1)
[2023-06-09] MEDS: HYDROCODONE/APAP 5/325 MG TAB PO PRN ×2 (06:34→13:02)
[2023-06-09] MEDS ORDERED: CEFEPIME 2 GM VIAL ONE (08:59)
[2023-06-09] MEDS ORDERED: NA CHLORIDE 0.9% 100 ML ONE (09:00)
[2023-06-09] MEDS ORDERED: NA CHLORIDE 0.9% 250 ML ONE (09:01)
[2023-06-09] MEDS ORDERED: VANCOMYCIN 1 GM/VIAL ONE (09:01)
--- NOTE | 2023-06-09 09:24 | P.PN ---
Date of Service: 06/09/23 Subjective: reports feeling pain - mostly in lower leg - foot to below knee hurts too much to walk redness and swelling for a few days not much difference today vs yesterday ROS: 10 point ROS as noted above, otherwise negative Physical Exam: GEN: Alert, oriented, appears uncomfortable HEENT: Normal conjunctiva, sclera anicteric, CV: Regular rate and rhythm, no edema Pulm: Nonlabored respirations on room air, +Crackles/rales ABD: soft, nontender, nondistended MSK: no joint tenderness - no tenderness with palpation of knee Integumentary: multiple superficial lesions with some fibrous discharge, erythema of b/l feet, L>R, foul odor Neuro: Normal speech, normal affect Problem List: Lower extremity cellulitis / Left knee pain Lower extremity venous stasis dermatitis/venous stasis ulcer 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 Christie in [facility] ~every 2 weeks for chronic wounds. xray Knee (06/08/23): diffuse subcutaneous swelling Arterial doppler (06/08/23): Abnormal waveforms lower extremities bilaterally may indicate aortoiliac disease Venous doppler (06/08/23): no DVT. 2 cm left Bakers Cyst continue empiric IV cefepime / vancomycin (06/08/22-): to cover cellulitis PRN Analgesics PT consult General surgery consulted - Dr. Christie Continue local wound care. COPD, on home O2 Stable without acute exacerbation Reports has oxygen setup at home 1-2L Continue home bronchodilators. Severe protein calorie malnutrition Nutritional supplementation. Hypothyroidism TSH: 24.4, Free T4: 0.76 Hypertension confirm home meds, restart as appropriate Code: Full Dispo: Home Photos obtained 06/09/23 after obtaining verbal consent from patient.
[2023-06-09] MEDS ORDERED: CYCLOBENZAPRINE 10 MG TAB ONE (10:22)
[2023-06-09] MEDS ORDERED: ACETAMINOPHEN 500 MG TAB ONE (10:22)
[2023-06-09] MEDS: CYCLOBENZAPRINE 10 MG TAB PO PRN (10:26)
[2023-06-09] MEDS: MEDIHONEY 44 ML TOPICAL TUBE TOP SCH (13:00)
[2023-06-09] MEDS ORDERED: MORPHINE 2 MG/ML SYR ONE (14:51)
[2023-06-09] MEDS: MORPHINE 2 MG/ML SYR IV PRN (14:55)
[2023-06-09] MEDS: METOPROLOL TAR 25 MG TAB PO SCH (20:59)
[2023-06-10 03:15] LABS: Absolute Lymphocytes (CBC) 0.6 K/uL (0.7-4.9); Hematocrit 31.7 % (36.0-45.0); Lymphocytes % 5.5 % (15.3-44.8); MCV 84.2 fL (80-100); MPV 7.2 fL (7.6-11.3); Platelets 356 thou/uL (152-406); RBC Red Blood Cell Count 3.76 M/uL (3.86-4.86)
[2023-06-10 03:34] LABS: Potassium 3.9 mEq/L (3.5-5.1)
[2023-06-10] MEDS ORDERED: VANCOMYCIN 1 GM/VIAL ONE (05:30)
[2023-06-10] MEDS ORDERED: NA CHLORIDE 0.9% 0 ML ONE (05:30)
[2023-06-10] MEDS ORDERED: NA CHLORIDE 0.9% 250 ML ONE ×2 (05:35→21:08)
[2023-06-10] MEDS: VANCOMYCIN 1 GM in NA CHLORIDE 0.9% 250 ML IVPB SCH ×2 (05:37→21:10)
[2023-06-10] MEDS: LEVOTHYROXINE SOD 0.1 MG TAB PO SCH (06:58)
--- NOTE | 2023-06-10 08:05 | P.PN ---
Date of Service: 06/10/23 Subjective: leg and knee pain ~ same bilaterally. worsened with light movement / touching / flexing muscles Breathing is okay at rest / at baseline no acute events overnight afebrile ROS: 10 point ROS as noted above, otherwise negative Physical Exam: GEN: Alert, oriented, appears uncomfortable HEENT: Normal conjunctiva, sclera anicteric, CV: Regular rate and rhythm, no edema Pulm: Nonlabored respirations on 2L NC, +mild crackles ABD: soft, nontender, nondistended MSK: no joint tenderness - no tenderness with palpation of knee; Integumentary: multiple superficial lesions with some fibrous discharge, erythema of b/l feet, L>R, foul odor Neuro: Normal speech, normal affect Problem List: Lower extremity cellulitis / Left knee pain Lower extremity venous stasis dermatitis/venous stasis ulcer 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 Christie in [facility] ~every 2 weeks for chronic wounds. xray Knee (06/08/23): diffuse subcutaneous swelling Arterial doppler (06/08/23): Abnormal waveforms lower extremities bilaterally may indicate aortoiliac disease Venous doppler (06/08/23): no DVT. 2 cm left Bakers Cyst; continue empiric IV cefepime / vancomycin (06/08/22-): to cover cellulitis; possibly de-escalating in next 24hrs PRN Analgesics - IV morphine added last night PT consult General surgery consulted - Dr. Christie Continue local wound care: Cleanse with soap/water rinse well. Apply Medihoney, aquacel extra, gauze, ABD, kerlix and Geoff wrap from base of toes to 2" below knee. May apply A&D ointment prior to kerlix application. No indication for surgical intervention at this time Restart home gabapentin DC aguirre 06/10 COPD, on home O2 Stable without acute exacerbation Reports has oxygen setup at home 1-2L Continue home bronchodilators. Severe protein calorie malnutrition Nutritional supplementation. Hypothyroidism TSH: 24.4, Free T4: 0.76 Continue home synthroid Hypertension confirm home meds, restart as appropriate Code: Full Dispo: Home ~ 2 days Pending better pain control, afebrile > 24 hrs, leukocytosis improved
[2023-06-10] MEDS ORDERED: NA CHLORIDE 0.9% 100 ML ONE ×2 (08:21→20:18)
[2023-06-10] MEDS ORDERED: CEFAZOLIN SODIUM 2 GM/VIAL ONE (08:22)
[2023-06-10] MEDS: METOPROLOL TAR 25 MG TAB PO SCH ×2 (08:37→20:27)
[2023-06-10] MEDS: DULERA 100/5 (MOMETASONE/FORMOTEROL) INHALER IH SCH ×2 (08:37→20:28)
[2023-06-10] MEDS: GABAPENTIN 100 MG CAP PO SCH ×3 (08:37→20:27)
[2023-06-10] MEDS: HYDROCODONE/APAP 5/325 MG TAB PO PRN ×2 (08:37→14:01)
[2023-06-10] MEDS: CEFEPIME 2 GM in NA CHLORIDE 0.9% 100 ML IV SCH ×2 (08:38→20:28)
[2023-06-10] MEDS ORDERED: CEFEPIME 2 GM VIAL ONE ×2 (08:39→20:17)
[2023-06-10] MEDS: MEDIHONEY 44 ML TOPICAL TUBE TOP SCH (08:40)
[2023-06-10] MEDS: MORPHINE 2 MG/ML SYR IV PRN (13:15)
[2023-06-10] MEDS ORDERED: HYDROCODONE/APAP 5/325 MG TAB ONE (13:59)
[2023-06-10] MEDS: ENSURE CLEAR 200 ML CAN PO SCH (20:58)
[2023-06-10] MEDS ORDERED: VANCOMYCIN 500 MG/VIAL ONE (21:07)
[2023-06-11 04:37] LABS: Absolute Lymphocytes (CBC) 0.7 K/uL (0.7-4.9); Hematocrit 31.3 % (36.0-45.0); Lymphocytes % 7.3 % (15.3-44.8); MPV 7.1 fL (7.6-11.3); Platelets 349 thou/uL (152-406); RBC Red Blood Cell Count 3.68 M/uL (3.86-4.86)
[2023-06-11 04:41] VITALS: BMI 23.1
[2023-06-11] MEDS: LEVOTHYROXINE SOD 0.1 MG TAB PO SCH (05:50)
--- NOTE | 2023-06-11 07:23 | P.PN ---
Date of Service: 06/11/23 Subjective: leg pain ~same. +painful dressing changes slowly improving with moving tolerance per PT yesterday. Limited OOB function. Unable to tolerate standing secondary to pain / weakness afebrile ROS: 10 point ROS as noted above, otherwise negative Physical Exam: GEN: Alert, oriented, appears uncomfortable HEENT: Normal conjunctiva, sclera anicteric, CV: Regular rate and rhythm, no edema Pulm: Nonlabored respirations on 2L NC, +mild crackles ABD: soft, nontender, nondistended MSK: no joint tenderness - no tenderness with palpation of knee; Integumentary: multiple superficial lesions with some fibrous discharge, erythema of b/l feet, L>R, foul odor Neuro: Normal speech, normal affect Problem List: Lower extremity cellulitis / Left knee pain Lower extremity venous stasis dermatitis/venous stasis ulcer 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 Christie in [facility] ~every 2 weeks for chronic wounds. xray Knee (06/08/23): diffuse subcutaneous swelling Arterial doppler (06/08/23): Abnormal waveforms lower extremities bilaterally may indicate aortoiliac disease Venous doppler (06/08/23): no DVT. 2 cm left Bakers Cyst continue empiric IV cefepime / vancomycin (06/08/22-): to cover cellulitis; possibly de-escalating in next 24hrs PT consult General surgery consulted - Dr. Christie Continue local wound care: Cleanse with soap/water rinse well. Apply Medihoney, aquacel extra, gauze, ABD, kerlix and Geoff wrap from base of toes to 2" below knee. May apply A&D ointment prior to kerlix application. PRN Analgesics - Walker increased last night No indication for surgical intervention at this time COPD, on home O2 (2L NC) Stable without acute exacerbation Reports has oxygen setup at home 2L Continue home bronchodilators. Severe protein calorie malnutrition Nutritional supplementation. Hypothyroidism TSH: 24.4, Free T4: 0.76 Continue home synthroid Hypertension confirm home meds, restart as appropriate Code: Full Dispo: SNF vs ~1-2 days Pending better pain control, afebrile > 24 hrs, leukocytosis improved, ?SNF ss/cm consulted
[2023-06-11] MEDS ORDERED: CEFEPIME 2 GM VIAL ONE (08:16)
[2023-06-11] MEDS ORDERED: NA CHLORIDE 0.9% 100 ML ONE (08:16)
[2023-06-11] MEDS: CEFEPIME 2 GM in NA CHLORIDE 0.9% 100 ML IV SCH (08:21)
[2023-06-11] MEDS: METOPROLOL TAR 25 MG TAB PO SCH ×2 (08:22→20:23)
[2023-06-11] MEDS: GABAPENTIN 100 MG CAP PO SCH ×3 (08:22→20:23)
[2023-06-11] MEDS: MEDIHONEY 44 ML TOPICAL TUBE TOP SCH (08:22)
[2023-06-11] MEDS: ENSURE CLEAR 200 ML CAN PO SCH ×2 (08:22→21:00)
[2023-06-11] MEDS: DULERA 100/5 (MOMETASONE/FORMOTEROL) INHALER IH SCH ×2 (08:26→21:00)
[2023-06-11] MEDS ORDERED: VANCOMYCIN 1 GM in NA CHLORIDE 0.9% 250 ML IVPB SCH ×2 (10:00→16:00)
[2023-06-11 10:06] LABS: C-Reactive Protein 60.9 mg/L (<3.00); Magnesium 2.1 mg/dL (1.6-2.4); Potassium 3.8 mEq/L (3.5-5.1)
[2023-06-11] MEDS ORDERED: POTASSIUM 25 MEQ EFFERV TAB ONE (10:53)
[2023-06-11] MEDS ORDERED: HYDROCODONE/APAP 7.5/325 MG TAB ONE ×2 (10:53→16:29)
[2023-06-11] MEDS: HYDROCODONE/APAP 7.5/325 MG TAB PO PRN ×2 (10:55→16:41)
[2023-06-11] MEDS ORDERED: POTASSIUM 25 MEQ EFFERV TAB PO ONE (11:00)
[2023-06-11] MEDS: MORPHINE 2 MG/ML SYR IV PRN (13:21)
[2023-06-11] MEDS ORDERED: CYCLOBENZAPRINE 10 MG TAB ONE (14:11)
[2023-06-11] MEDS: CYCLOBENZAPRINE 10 MG TAB PO PRN (14:13)
[2023-06-11] MEDS: CIPROFLOXACIN HCL 500 MG TAB PO SCH (20:23)
[2023-06-11] MEDS: DOXYCYCLINE 100 MG CAP PO SCH (20:23)
[2023-06-12] MEDS: LEVOTHYROXINE SOD 0.1 MG TAB PO SCH (06:05)
[2023-06-12 07:34] LABS: C-Reactive Protein 48.1 mg/L (<3.00); Magnesium 2.1 mg/dL (1.6-2.4); Potassium 4.3 mEq/L (3.5-5.1)
[2023-06-12] MEDS: GABAPENTIN 100 MG CAP PO SCH ×3 (09:00→20:56)
[2023-06-12] MEDS: MEDIHONEY 44 ML TOPICAL TUBE TOP SCH ×2 (09:00→10:15)
[2023-06-12] MEDS: ENSURE CLEAR 200 ML CAN PO SCH ×2 (09:00→20:57)
[2023-06-12] MEDS: DULERA 100/5 (MOMETASONE/FORMOTEROL) INHALER IH SCH ×2 (09:00→20:56)
[2023-06-12] MEDS ORDERED: POLYETHYL GLY 3350 17 GM/DOSE PO PRN (09:36)
--- NOTE | 2023-06-12 09:47 | P.PN ---
Date of Service: 06/12/23 Subjective: Downgraded to the floor yesterday leg pain continues ~same Unable to stand / put any weightbearing on left leg secondary to pain Feels constipated / abdominal tightness. Last BM was prior to admission per patient. +Flatus afebrile ROS: 10 point ROS as noted above, otherwise negative Physical Exam: GEN: Alert, oriented, appears uncomfortable HEENT: Normal conjunctiva, sclera anicteric, CV: Regular rate and rhythm, no edema Pulm: Nonlabored respirations on room air, +mild crackles ABD: soft, nontender, nondistended MSK: no joint tenderness - no tenderness with palpation of knee; Integumentary: multiple superficial lesions with some fibrous discharge, erythema of b/l feet, L>R, foul odor Neuro: Normal speech, normal affect Problem List: Lower extremity cellulitis / Left knee pain Lower extremity venous stasis dermatitis/venous stasis ulcer 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 Christie in [facility] ~every 2 weeks for chronic wounds. xray Knee (06/08/23): diffuse subcutaneous swelling Arterial doppler (06/08/23): Abnormal waveforms lower extremities bilaterally may indicate aortoiliac disease Venous doppler (06/08/23): no DVT. 2 cm left Bakers Cyst Previously given empiric IV cefepime / vancomycin (-06/11) to cover cellulitis deescalated to PO cipro / doxy (06/12-) afebrile, leukocytosis resolved, CRP improving PT consult General surgery consulted - Dr. Christie Continue local wound care: Cleanse with soap/water rinse well. Apply Medihoney, aquacel extra, gauze, ABD, kerlix and Geoff wrap from base of toes to 2" below knee. May apply A&D ointment prior to kerlix application. No indication for surgical intervention at this time PRN Analgesics Spoke with Dr. Damon on 06/11, states pt recently underwent arterial and venous procedures, monophasic flow was seen weeks ago, no change. aorto-iliacs were viewed during angio's, and no disease noted suspects pain partly due to hyperemia pt with side effects with higher dose gabapentin, so maintain current dosing COPD, on home O2 (2L NC) Stable without acute exacerbation Reports has oxygen setup at home 2L Continue home bronchodilators. Severe protein calorie malnutrition Nutritional supplementation. Hypothyroidism TSH: 24.4, Free T4: 0.76 Continue home synthroid Hypertension confirm home meds, restart as appropriate Constipation Colace BID, glycolax PRN added 06/12 Code: Full Dispo: SNF [place] - Pending auth Pending better pain control, afebrile > 24 hrs, SNF auth ss/cm consulted
[2023-06-12] MEDS: CIPROFLOXACIN HCL 500 MG TAB PO SCH ×2 (10:14→20:55)
[2023-06-12] MEDS: METOPROLOL TAR 25 MG TAB PO SCH ×2 (10:15→20:56)
[2023-06-12] MEDS: DOCUSATE NA 100 MG CAP PO SCH ×2 (10:15→20:56)
[2023-06-12] MEDS: DOXYCYCLINE 100 MG CAP PO SCH ×2 (10:15→20:55)
[2023-06-12] MEDS: HYDROCODONE/APAP 7.5/325 MG TAB PO PRN (11:59)
--- NOTE | 2023-06-12 13:53 | EKG ---
Test Date: 2023-06-08 Test Time: 14:43:23 Roving Changer: YARELI MEASUREMENT RESULTS: Intervals: Rate: 92 CA: 140 QRSD: 80 QT: 366 QTc: 452 Pierson: P: 66 CA: 140 QRS: 92 T: 43 INTERPRETIVE STATEMENTS: Normal sinus rhythm Normal ECG Compared to ECG 05/02/2023 17:41:55 Atrial premature complex(es) no longer present Right-axis deviation no longer present Myocardial infarct finding no longer present Electronically Signed On 06-12-23 13:43:36 MOTION PICTURE DIRECTOR by Reed Herrera
--- NOTE | 2023-06-12 19:01 | PN ---
Ms. Bruno is known by us due to chronic foot ulcers due to severe arterial disease. She was once ag ain having some issues with her legs with chronic pain. She has claudication. She has dependency. She has to sleep with the legs down. She has been seeing her vascular doctor with interventions made , although none of them are done. The wounds got a little bit worse. [facility] and today when we saw her, the wounds were doing fantastic, also the best in the last 3 weeks. Th e swelling is down. The wounds are clean. Unfortunately, we believe she is having some ischemia of that leg and they have been trying different ways how to improve her condition, but so far, nothing h as improved. She was advised many times to stop smoking. She is working on that. From the surgical standpoint, continue vascular workup. She always has the option of an amputation of that leg. The benefits, alternatives, and risks fully explained. She is not ready for that at this moment. Contin ue same wound care. ARIC/JUSTIN Voice ID: [id number] Report ID: [id number]
[2023-06-13] MEDS: HYDROCODONE/APAP 7.5/325 MG TAB PO PRN (02:38)
[2023-06-13 04:30] LABS: C-Reactive Protein 34.9 mg/L (<3.00); Potassium 3.9 mEq/L (3.5-5.1)
[2023-06-13] MEDS: LEVOTHYROXINE SOD 0.1 MG TAB PO SCH (05:47)
--- NOTE | 2023-06-13 08:21 | P.DS ---
Admission Date: 06/10/23 Discharge Date: 06/13/23 Disposition: TRANSFER TO SNF - MEDICAL Discharge Condition: FAIR Reason for Admission: Left knee pain Consultations: General Surgery - Dr. Christie Brief History of Present Illness: 73yo F, PMH: chronic bilateral lower extremity ulcers, venous stasis dermatitis who follows with Dr. Christie Patient was brought to the emergency department by EMS due to left knee pain. Patient reports left knee pain of 2 days duration, described as leg cramps. She denies any fever, no knee swelling. Workup in the emergency department showed mild leukocytosis. X-ray of the left knee shows subcutaneous swelling, no joint abnormality and subcutaneous gas. Patient was complaining of pain during my examination and states she cannot walk because of the pain. ED provider wishes to hospitalize patient for further management. Hospital Course: Problem List: Lower extremity cellulitis / Left knee pain Lower extremity venous stasis dermatitis/venous stasis ulcer CAD with chronic nonhealing bilateral foot wounds PAD COPD, on home O2 (2L NC) h/o severe pulm hypertension Severe protein calorie malnutrition Hypothyroidism Hypertension Constipation Patient presented with left knee pain, lower extremity pain, chronic nonhealing bilateral foot wounds. Xray of the knee noted diffuse subcutaneous swelling. Arterial doppler with abnormal waveforms lower extremities bilaterally. Venous doppler negative for DVT, did note 2 cm left bakers cyst. Patient was started on empiric IV cefepime / vanc to cover for cellulitis. General surgery was consulted - Patient noted to see Dr. Christie ~every 2 weeks in the [facility] for management of chronic wounds. Dr. Christie recommended continued medical management treatment / local wound care. No indication to warrant surgical intervention / I&D at this time. Patient remained afebrile throughout hospitalization. Leukocytosis resolved. Blood cultures without growth since 06/08/23. Patient continued to show improvement after deescalating IV antibiotics to PO ciprofloxacin / doxycycline. Patient is to complete ~2 weeks of PO cipro / doxy on discharge. Patient had improvement with the above treatment, however patient was noted to have very limited OOB function / mobility secondary to bilateral lower extremity pain / weakness. Spoke with Dr. Damon (Vascular Surgeon) on 06/11, states pt recently underwent arterial and venous procedures, monophasic flow was seen weeks ago, no change. aorto-iliacs were viewed during angio's, and no disease noted. Suspect pain partly due to hyperemia. Discussed possible options of discharge and patient was amenable to SNF. Patient was feeling better, afebrile without leukocytosis, and deemed stable for discharge to SNF - [facility] - where she was continue to work with PT to improve strength / endurance prior to returning home and for continued local wound care. Medications: Ciprofloxacin 500 mg PO BID / Doxycycline 100 mg PO BID for 2 weeks total (End date: 06/25/22) [place] 7.5/325 mg Follow up: PCP 3-[address] Christie / [facility] ([facility]) ~1 week. Physical Exam: GEN: Alert, oriented, appears uncomfortable HEENT: Normal conjunctiva, sclera anicteric, CV: Regular rate and rhythm, no edema Pulm: Nonlabored respirations on room air, +mild crackles ABD: soft, nontender, nondistended MSK: no joint tenderness - no tenderness with palpation of knee; Integumentary: multiple superficial lesions with some fibrous discharge, erythema of b/l feet, L>R, foul odor Neuro: Normal speech, normal affect Vital Signs/Physical Exam: Temp Pulse Resp BP Pulse Ox 98.7 F 76 14 114/62 98 06/13/23 04:00 06/13/23 04:00 06/13/23 04:00 06/13/23 04:00 06/13/23 04:00 Laboratory Data at Discharge: WBC 9.80 thou/uL (4.3-10.9) 06/11/23 04:10 Hgb 9.9 g/dL (12.0-15.0) L 06/11/23 04:10 Hct 31.3 % (36.0-45.0) L 06/11/23 04:10 Plt Count 349 thou/uL (152-406) 06/11/23 04:10 PT 12.2 SECONDS (9.5-12.5) 06/08/23 13:43 INR 1.11 06/08/23 13:43 Sodium 137 mEq/L (136-145) 06/13/23 03:58 Potassium 3.9 mEq/L (3.5-5.1) 06/13/23 03:58 BUN 12 mg/dL (7-18) 06/13/23 03:58 Creatinine 0.53 mg/dL (0.55-1.02) L 06/13/23 03:58 Glucose 131 mg/dL (74-106) H 06/13/23 03:58 Uric Acid 2.0 mg/dL (2.6-6.0) L 06/08/23 13:43 Phosphorus 2.7 mg/dL (2.5-4.9) 06/09/23 03:54 Magnesium 2.1 mg/dL (1.6-2.4) 06/12/23 06:57 Total Bilirubin 0.2 mg/dL (0.2-1.0) 06/08/23 13:43 Total Bilirubin 0.2 mg/dL (0.2-1.0) 06/08/23 13:43 AST 20 U/L (15-37) 06/08/23 13:43 AST 22 U/L (15-37) 06/08/23 13:43 ALT 11 U/L (13-56) L 06/08/23 13:43 ALT 12 U/L (13-56) L 06/08/23 13:43 Alkaline Phosphatase 99 U/L (45-117) 06/08/23 13:43 Alkaline Phosphatase 103 U/L (45-117) 06/08/23 13:43 Home Medications: Apixaban [Eliquis *] 2.5 mg PO BID 08/14/22 Hydrocodone 5/APAP 325 [[place] 5/325*] 1 tab PO Q4H PRN 08/14/22 Levothyroxine [Synthroid*] 1 tab PO 0630 08/14/22 Melatonin [Melatonin*] 3 mg PO BEDTIME 08/14/22 Metoprolol Tartrate [Lopressor*] 25 mg PO BID 08/14/22 Mirtazapine [Remeron] 30 mg PO BEDTIME 08/14/22 Mometasone/Formoterol [Dulera 100 Mcg-5 Mcg Inhaler] 2 puff IN BID 08/14/22 methocarbamoL [Robaxin*] 500 mg PO BID 08/14/22 predniSONE [Deltasone*] 10 mg PO DAILY 08/14/22 Iron/FA/Vit B-Com W/C [Hemocyte Plus*] 1 tab PO DAILY WITH BREAKFAST #30 tab 08/28/22 Albuterol Neb [Proventil 0.083% Neb Soln] 2.5 mg NEB [id number] PRN #120 amp 05/05/23 Collagenase [Santyl Ointment*] 1 appl TOP DAILY #1 tube 05/05/23 Furosemide [Lasix*] 40 mg PO DAILY #30 tab 05/05/23 Gabapentin [Neurontin*] 100 mg PO TID #90 cap 05/05/23 Ipratropium Neb [Atrovent*] 0.5 mg NEB [id number] PRN #120 amp 05/05/23 Nebulizer 1 each MC TID #1 ea 05/05/23 Ciprofloxacin HCl [Cipro] 500 mg PO BID 12 Days 06/13/23 Doxycycline Hyclate [Vibramycin] 100 mg PO BID 12 Days 06/13/23 Hydrocodone 7.5/APAP 325 [[place] 7.5/325 mg*] 1 tab PO Q6H PRN tab 06/13/23 New Medications: Ciprofloxacin HCl [Cipro] 500 mg PO BID 12 Days Doxycycline Hyclate [Vibramycin] 100 mg PO BID 12 Days Physician Discharge Instructions: Patient presented with left knee pain, lower extremity pain, chronic nonhealing bilateral foot wounds. Xray of the knee noted diffuse subcutaneous swelling. Arterial doppler with abnormal waveforms lower extremities bilaterally. Venous doppler negative for DVT, did note 2 cm left bakers cyst. Patient was started on empiric IV cefepime / vanc to cover for cellulitis. General surgery was consulted - Patient noted to see Dr. Christie ~every 2 weeks in the [facility] for management of chronic wounds. Dr. Christie recommended continued medical management treatment / local wound care. No indication to warrant surgical intervention / I&D at this time. Patient remained afebrile throughout hospitalization. Leukocytosis resolved. Blood cultures without growth since 06/08/23. Patient continued to show improvement after deescalating IV antibiotics to PO ciprofloxacin / doxycycline. Patient is to complete ~2 weeks of PO cipro / doxy on discharge. Patient had improvement with the above treatment, however patient was noted to have very limited OOB function / mobility secondary to bilateral lower extremity pain / weakness. Spoke with Dr. Damon (Vascular Surgeon) on 06/11, states pt recently underwent arterial and venous procedures, monophasic flow was seen weeks ago, no change. aorto-iliacs were viewed during angio's, and no disease noted. Suspect pain partly due to hyperemia. Discussed possible options of discharge and patient was amenable to SNF. Patient was feeling better, afebrile without leukocytosis, and deemed stable for discharge to SNF - [facility] - where she was continue to work with PT to improve strength / endurance prior to returning home and for continued local wound care. Medications: Ciprofloxacin 500 mg PO BID / Doxycycline 100 mg PO BID for 2 weeks total (End date: 06/25/22) [place] 7.5/325 mg Follow up: PCP 3-[address] Christie / [facility] ([facility]) ~1 week. Followup: NONE,NONE [UNKNOWN] - Time spent managing pt's care (in minutes): 45
[2023-06-13] MEDS ORDERED: POTASSIUM 25 MEQ EFFERV TAB PO ONE (09:00)
[2023-06-13] MEDS: ENSURE CLEAR 200 ML CAN PO SCH (09:00)
[2023-06-13] MEDS: MEDIHONEY 44 ML TOPICAL TUBE TOP SCH (09:00)
[2023-06-13] MEDS: DULERA 100/5 (MOMETASONE/FORMOTEROL) INHALER IH SCH (09:00)
[2023-06-13 10:13] VITALS: BP 124/73; TEMP 98.4
[2023-06-13 10:27] VITALS: O2SAT 92
[2023-06-13] MEDS: DOXYCYCLINE 100 MG CAP PO SCH (10:39)
[2023-06-13] MEDS: CIPROFLOXACIN HCL 500 MG TAB PO SCH (10:39)
[2023-06-13] MEDS: DOCUSATE NA 100 MG CAP PO SCH (10:39)
[2023-06-13] MEDS: METOPROLOL TAR 25 MG TAB PO SCH (10:39)
[2023-06-13] MEDS: GABAPENTIN 100 MG CAP PO SCH (10:39)
== END 2023-06-13 10:59 | DRG 602 ==
LOC: ER 11:22 → ERHOLD 14:50 → 3RD-ICU 06-09 07:18 → OBSVTOIN 06-10 10:59 → 2ND 06-11 18:15
PROVIDERS: ADMIT Internal Medicine; ATTEND Hospitalist
DX: L03.116 Cellulitis of left lower limb (principal); E43 Unspecified severe protein-calorie malnutrition; R64 Cachexia; L97.819 Non-pressure chronic ulcer of other part of right lower leg with unspecified severity; I83.218 Varicose veins of right lower extremity with both ulcer of other part of lower extremity and inflammation; I83.228 Varicose veins of left lower extremity with both ulcer of other part of lower extremity and inflammation; L97.829 Non-pressure chronic ulcer of other part of left lower leg with unspecified severity; J44.9 Chronic obstructive pulmonary disease, unspecified; I83.015 Varicose veins of right lower extremity with ulcer other part of foot; I83.025 Varicose veins of left lower extremity with ulcer other part of foot; E03.9 Hypothyroidism, unspecified; I10 Essential (primary) hypertension; I25.10 Atherosclerotic heart disease of native coronary artery without angina pectoris; K59.00 Constipation, unspecified; F17.210 Nicotine dependence, cigarettes, uncomplicated; I73.9 Peripheral vascular disease, unspecified; Z68.23 Body mass index [BMI] 23.0-23.9, adult; L03.115 Cellulitis of right lower limb; I27.20 Pulmonary hypertension, unspecified; Z99.81 Dependence on supplemental oxygen; M25.562 Pain in left knee; M71.22 Synovial cyst of popliteal space [Baker], left knee
CPT/HCPCS: 36415; 71045; 80048; 80053; 80076; 80202; 83605; 83735; 83880; 84100; 84439; 84443; 84484; 84550; 85025; 85610; 86140; 87040; 93005; 93925; 93970; 94760; 97110; 97161; 97530; 99285; G0378; J0295; J0692; J2270; J2405; J3010; J3535; J7030; J7040; J7050

== ENCOUNTER 2023-08-18 16:06 | Inpatient (IN) | payer OTHER ==
[2023-08-18 17:45] LABS: Absolute Basophils 0.1 K/uL (0-0.5); Absolute Eosinophils 0.5 K/uL (0-0.5); Absolute Lymphocytes (CBC) 1.3 K/uL (0.7-4.9); Absolute Monocytes 0.7 K/uL (0.1-1.3); Absolute Neutrophil 3.2 K/uL (1.8-8.0); Basophils % 1.4 % (0-1.3); Eosinophils % 8.9 % (0-4.4); Hematocrit 32.4 % (36.0-45.0); Hemoglobin 10.6 g/dL (12.0-15.0); Lymphocytes % 22.6 % (15.3-44.8); MCH 28.1 pg (27.0-35.0); MCHC 32.6 g/dL (32.0-36.0); MCV 86.3 fL (80-100); MPV 7.8 fL (7.6-11.3); Monocytes % 11.9 % (3.3-12.3); Neutrophils % 55.2 % (41.7-73.7); Platelets 247 thou/uL (152-406); RBC Red Blood Cell Count 3.75 M/uL (3.86-4.86); Red Cell Distribution Width 16.9 % (12.1-15.2)
[2023-08-18 17:54] LABS: Albumin/Globulin Ratio 0.7 (1.1-1.8); Anion Gap 5.5 mEq/L (5.0-15.0); Bilirubin Total 0.2 mg/dL (0.2-1.0); Globulin 4.3 g/dL (2.3-3.5); Potassium 3.5 mEq/L (3.5-5.1); Protein, Total 7.3 g/dL (6.4-8.2)
[2023-08-18 18:05] LABS: PT Prothrombin Time 11.9 SECONDS (9.5-12.5); PTT, Activated Partial Thromb 30.1 SECONDS (24.3-36.9); Protime INR 1.08
[2023-08-18] MEDS ORDERED: VANCOMYCIN 1 GM/VIAL ONE (19:08)
[2023-08-18] MEDS ORDERED: NA CHLORIDE 0.9% 250 ML ONE (19:08)
--- NOTE | 2023-08-18 19:14 | EDPHYS ---
Physician Documentation [facility] Name: Elena Bruno Age: 73 yrs Sex: Female : 1950 Arrival Date: 08/18/2023 Time: 16:06 Bed 13 Private MD: ED Physician Miguel A Arriaga HPI: 08/17 16:40 This 73 yrs old Female presents to ER via Wheelchair with complaints of Abnormal Lab cp Results, Sent by Pratik. 16:40 Patient is a 73-year-old female with past medical history significant for COPD, cp hypertension who was referred to the emergency department for admission by Dr. Christie. Patient reports she was referred from wound care to be admitted for IV antibiotics for infection of lower extremities. No other complaints noted. Historical: - Allergies: 16:24 No Known Allergies; ld1 - PMHx: 16:24 Chronic obstructive lung disease; Hypertensive disorder; Hypothyroidism; ld1 - PSHx: 16:24 Appendectomy; Uterus surgery; Hip surgery; ld1 - Immunization history:: Adult Immunizations up to date. - Social history:: Smoking status: Patient denies any tobacco usage or history of. Patient/guardian denies using alcohol. ROS: 16:45 Constitutional: Negative for body aches, chills, fever, poor PO intake, cp 16:45 Eyes: Negative for injury, pain, redness, and discharge, cp 16:45 ENT: Negative for drainage from ear(s), ear pain, sore throat, difficulty swallowing, difficulty handling secretions, 16:45 Cardiovascular: Positive for edema, Negative for chest pain, palpitations, 16:45 Respiratory: Negative for cough, shortness of breath, wheezing, 16:45 Abdomen/GI: Negative for abdominal pain, nausea, vomiting, and diarrhea, 16:45 Neuro: Negative for altered mental status, dizziness, headache, weakness, 16:45 All other systems are negative, Exam: 16:50 Constitutional: The patient appears in no acute distress, alert, awake, cp non-diaphoretic, non-toxic, well developed, well nourished, uncomfortable, 16:50 Head/Face: Normocephalic, atraumatic. cp 16:50 Eyes: Periorbital structures: appear normal, Conjunctiva: normal, no exudate, no injection, Sclera: no appreciated abnormality, Lids and lashes: appear normal, bilaterally, 16:50 ENT: External ear(s): are unremarkable, Nose: is normal, Mouth: Lips: moist, Oral mucosa: pink and intact, moist, Posterior pharynx: Airway: no evidence of obstruction, patent, 16:50 Chest/axilla: Inspection: normal, 16:50 Cardiovascular: Rate: normal, Rhythm: regular, Edema: ankle edema, that is moderate, JVD: is not appreciated, 16:50 Respiratory: the patient does not display signs of respiratory distress, Respirations: labored breathing, that is mild, Breath sounds: decreased breath sounds, that are moderate, throughout, stridor, is not appreciated, wheezing: is not appreciated, 16:50 Abdomen/GI: Inspection: abdomen appears normal, Palpation: abdomen is soft and non-tender, in all quadrants, 16:50 Skin: cellulitis, that is moderate, well demarcated, on the left lower leg and right lower leg, 16:50 Neuro: Orientation: to person, place \T\ time. Mentation: is normal, 17:15 ECG was reviewed by the Attending Physician. Vital Signs: 16:22 BP 120 / 67; Pulse 86; Resp 18; Temp 98.2(TE); Pulse Ox 92% on 2 lpm NC; Weight 54.43 ld1 kg; Height 5 ft. 6 in. ; Pain 5/10; 17:30 BP 159 / 85; Pulse 81; Resp 16; Pulse Ox 95% on R/A; db 18:00 BP 148 / 92; Pulse 78; Resp 16; Pulse Ox 97% on R/A; db 18:45 BP 150 / 88; Pulse 83; Resp 18; Pulse Ox 94% on R/A; db 19:45 BP 150 / 88; Pulse 81; Resp 19; Pulse Ox 97% on 2 lpm NC; Pain 0/10; tm6 16:22 Body Mass Index 19.37 (54.43 kg, 167.64 cm) ld1 16:22 Pain Scale: Adult ld1 19:45 Pain Scale: Adult tm6 MDM: 16:27 Patient medically screened. cp 18:00 Differential diagnosis: sepsis, abscess, cellulitis, DVT. cp 19:15 Data reviewed: vital signs, nurses notes, lab test result(s), EKG, and as a result, I cp will admit patient. 19:15 Consideration of Admission/Observation Patient was admitted/placed on observation. cp Management of patient was discussed with the following: Hospitalist: DR Pablo will admit after discussion. Care significantly affected by the following chronic conditions: Hypertension, Chronic Obstructive Pulmonary Disease. Counseling: I had a detailed discussion with the patient and/or guardian regarding the historical points, exam findings, and any diagnostic results supporting the discharge/admit diagnosis, lab results. 08/17 16:36 Order name: Blood Culture Adult (2) cp 08/17 16:36 Order name: CBC with Diff cp 08/17 16:36 Order name: CMP; Complete Time: 18:46 cp 08/17 18:46 Interpretation: Normal except: CO2 34; BUN 20; GFR 74; ALB 3.0; GLOB 4.3; A/G 0.7. cp 08/17 16:36 Order name: Lactate w/ 2H reflex if indic.; Complete Time: 18:46 cp 08/17 16:36 Order name: Protime (+inr); Complete Time: 18:46 cp 08/17 16:36 Order name: Ptt, Activated; Complete Time: 18:46 cp 08/17 16:36 Order name: Urinalysis w/ reflexes cp 08/17 17:48 Order name: CBC with Automated Diff; Complete Time: 18:46 EDMS 08/17 18:46 Interpretation: Normal except: RBC 3.75; HGB 10.6; HCT 32.4; RDW 16.9; EOSINOPHIL % cp 8.9; BASO% 1.4. 08/17 19:23 Order name: Urinalysis w/ reflexes EDMS 08/17 19:23 Order name: CBC with Automated Diff EDMS 08/17 19:23 Order name: CBC with Automated Diff EDMS 08/17 19:23 Order name: Comprehensive Metabolic Panel EDMS 08/17 19:23 Order name: Comprehensive Metabolic Panel EDMS 08/17 19:25 Order name: Vancomycin Level Trough EDMS 08/18 09:07 Order name: Potassium EDMS 08/17 16:36 Order name: EKG; Complete Time: 17:11 cp 08/17 19:23 Order name: CONS Physician Consult EDMS 08/17 16:36 Order name: Accucheck; Complete Time: 18:14 cp 08/17 16:36 Order name: Cardiac monitoring; Complete Time: 18:14 cp 08/17 16:36 Order name: EKG - Nurse/Tech; Complete Time: 17:18 cp 08/17 16:36 Order name: IV Saline Lock - Large Bore; Complete Time: 17:18 cp 08/17 16:36 Order name: Labs collected and sent; Complete Time: 17:18 cp 08/17 16:36 Order name: O2 Per Protocol; Complete Time: 17:18 cp 08/17 16:36 Order name: O2 Sat Monitoring; Complete Time: 17:18 cp 08/17 16:36 Order name: Vital Signs; Complete Time: 17:18 cp EC:15 Rate is 79 beats/min. Rhythm is regular. OK interval is normal. QRS interval is normal. cp QT interval is normal. T waves are Inverted in leads aVR, V6. Interpreted by me. Reviewed by me. Administered Medications: 19:45 Drug: vancoMYCIN IVPB 1 grams IVPB once over 2 hrs Route: IVPB; Infused Over: 2 hrs; tm6 Site: left hand; Disposition Summary: 08/18/23 19:14 Hospitalization Ordered Notes: Hospitalization Status: Inpatient Admission cp Provider: Phu Pablo cp Condition: Stable cp Problem: new cp Symptoms: have improved cp Bed/Room Type: Standard cp Location: Telemetry/MedSurg (Inpatient)(08/19/23 11:21) bc6 Room Assignment: [facility](08/19/23 11:21) 6 Diagnosis - Cellulitis of left lower limb cp - Cellulitis of right lower limb cp Forms: - Medication Reconciliation Form cp - SBAR form cp - Leadership Thank You Letter cp Signatures: Dispatcher [employer] EDTX Mc Wadsworth PA PA cp Christa Johnson RN RN lg3 Luz Maria Pérez RN RN ld1 Nella Whyte bc6 Dylan Nelson RN RN tm6 Corrections: (The following items were deleted from the chart) 16:25 16:24 PSHx: None; ld1 ld1 22:39 19:14 Telemetry/MedSurg (Inpatient) cp lg3 22:39 19:14 cp lg3 08/18 11:21 0312 22:39 [facility] ER HOLD lg3 bc6 08/18 11:21 03 22:39 ERHOLD- lg3 bc6
--- NOTE | 2023-08-18 19:14 | ER ---
Nurse's Notes [facility] Name: Elena Bruno Age: 73 yrs Sex: Female : 1950 Arrival Date: 08/18/2023 Time: 16:06 Bed 13 Private MD: Diagnosis: Cellulitis of left lower limb;Cellulitis of right lower limb Presentation: 08/17 16:22 Chief complaint: Patient states: Dr. Christie sent pt to ER for IV antibiotics due to ld1 cellulitis to [place] legs. Coronavirus screen: At this time, the client does not indicate any symptoms associated with coronavirus-19. Ebola Screen: No symptoms or risks identified at this time. Initial Sepsis Screen: Does the patient meet any 2 criteria? No. Patient's initial sepsis screen is negative. Does the patient have a suspected source of infection? No. Patient's initial sepsis screen is negative. Risk Assessment: Do you want to hurt yourself or someone else? Patient reports no desire to harm self or others. Onset of symptoms was August 18, 2023. 16:22 Method Of Arrival: Wheelchair ld1 16:22 Acuity: FABBY 3 ld1 Triage Assessment: 16:24 General: Appears in no apparent distress. comfortable, Behavior is calm, cooperative, ld1 appropriate for age. Pain: Complains of pain in right leg and left leg Pain does not radiate. Pain currently is 5 out of 10 on a pain scale. Quality of pain is described as throbbing. EENT: No signs and/or symptoms were reported regarding the EENT system. Neuro: Level of Consciousness is awake, alert, obeys commands, Oriented to person, place, time, situation. Cardiovascular: Capillary refill < 3 seconds Patient's skin is warm and dry. Respiratory: Airway is patent Respiratory effort is even, unlabored. GI: Abdomen is flat, non-distended. : No signs and/or symptoms were reported regarding the genitourinary system. Derm: No signs and/or symptoms reported regarding the dermatologic system. Historical: - Allergies: 16:24 No Known Allergies; ld1 - PMHx: 16:24 Chronic obstructive lung disease; Hypertensive disorder; Hypothyroidism; ld1 - PSHx: 16:24 Appendectomy; Uterus surgery; Hip surgery; ld1 - Immunization history:: Adult Immunizations up to date. - Social history:: Smoking status: Patient denies any tobacco usage or history of. Patient/guardian denies using alcohol. Screenin:45 [facility] ED Fall Risk Assessment (Adult) History of falling in the last 3 months, db including since admission No falls in past 3 months (0 pts) Confusion or Disorientation No (0 pts) Intoxicated or Sedated No (0 pts) Impaired Gait Yes (1 pt) Mobility Assist Device Used Yes (1 pt) Altered Elimination No (0 pt) Score/Fall Risk Level 0 - 2 = Low Risk Oriented to surroundings, Maintained a safe environment. Abuse screen: Denies threats or abuse. Denies injuries from another. Nutritional screening: No deficits noted. Tuberculosis screening: No symptoms or risk factors identified. Assessment: 17:19 Reassessment: Patient appears in no apparent distress at this time. Patient and/or db family updated on plan of care and expected duration. Pain level reassessed. Patient is alert, oriented x 3, equal unlabored respirations, skin warm/dry/pink. General: Appears in no apparent distress. comfortable, Behavior is calm, cooperative. Pain: Complains of pain in right leg and left leg. Neuro: Level of Consciousness is awake, alert, obeys commands, Oriented to person, place, time, situation. Cardiovascular: No deficits noted. Respiratory: Airway is patent Respiratory effort is even, unlabored, Respiratory pattern is regular, symmetrical. GI: No deficits noted. No signs and/or symptoms were reported involving the gastrointestinal system. : No deficits noted. No signs and/or symptoms were reported regarding the genitourinary system. EENT: No deficits noted. No signs and/or symptoms were reported regarding the EENT system. Derm: Reports REDNESS AND WOUNDS ON BILATERAL LOWER LEG. Musculoskeletal: Circulation, motion, and sensation intact. Capillary refill < 3 seconds. 19:03 Reassessment: Patient appears in no apparent distress at this time. Patient and/or db family updated on plan of care and expected duration. Pain level reassessed. Patient is alert, oriented x 3, equal unlabored respirations, skin warm/dry/pink. General: Appears in no apparent distress. comfortable, Behavior is calm, cooperative. 19:45 Reassessment: Patient and/or family updated on plan of care and expected duration. Pain tm6 level reassessed. Patient is alert, oriented x 3, equal unlabored respirations, skin warm/dry/pink. 20:23 General: brother: Jose [phone]. iw Vital Signs: 16:22 BP 120 / 67; Pulse 86; Resp 18; Temp 98.2(TE); Pulse Ox 92% on 2 lpm NC; Weight 54.43 ld1 kg; Height 5 ft. 6 in. ; Pain 5/10; 17:30 BP 159 / 85; Pulse 81; Resp 16; Pulse Ox 95% on R/A; db 18:00 BP 148 / 92; Pulse 78; Resp 16; Pulse Ox 97% on R/A; db 18:45 BP 150 / 88; Pulse 83; Resp 18; Pulse Ox 94% on R/A; db 19:45 BP 150 / 88; Pulse 81; Resp 19; Pulse Ox 97% on 2 lpm NC; Pain 0/10; tm6 16:22 Body Mass Index 19.37 (54.43 kg, 167.64 cm) ld1 16:22 Pain Scale: Adult ld1 19:45 Pain Scale: Adult tm6 ED Course: 16:13 Patient arrived in ED. rg4 16:24 Triage completed. ld1 16:24 Arm band placed on right wrist. ld1 16:27 Mc Wadsworth PA is PHCP. cp 16:27 Miguel A Arriaga MD is Attending Physician. cp 16:49 Michaela Murillo, CHRIS is Primary Nurse. db 17:14 Initial lab(s) drawn, by me, sent to lab. First set of blood cultures drawn by me, EKG db done, by ED staff, reviewed by Mc PARNELL. Inserted saline lock: 22 gauge in left antecubital area, using aseptic technique. Blood collected. 17:21 Provided Education on: DISCHARGE. Client placed on continuous cardiac and pulse db oximetry monitoring. NIBP monitoring applied. Warm blanket given. 17:40 Second set of blood cultures drawn. Inserted saline lock: 22 gauge in left wrist, using db aseptic technique. Blood collected. 19:08 Report given to CHRIS MIR STRATEGIC PARTNER DEVELOPMENT MANAGER. db 19:13 Phu Pablo MD is Hospitalizing Provider. cp 19:30 Dylan Nelson, RN is Primary Nurse. tm6 21:43 Cleaned of incontinence. km 21:44 Door closed. Lights dimmed. kmf 03 10:11 Patient has correct armband on for positive identification. Placed in gown. Bed in low ko1 position. Call light in reach. Side rails up X 1. Assisted to bedside commode. 10:11 No provider procedures requiring assistance completed. Patient admitted, IV remains in ko1 place. Administered Medications: 08/17 19:45 Drug: vancoMYCIN IVPB 1 grams IVPB once over 2 hrs Route: IVPB; Infused Over: 2 hrs; tm6 Site: left hand; Medication: 08/18 10:12 VIS not applicable for this client. ko1 Outcome: 08/17 19:14 Decision to Hospitalize by Provider. cp 08/18 10:11 Admitted to ER Hold. Please see [facility] for further documentation. ko1 Condition: stable Instructed on the need for admit, 12:17 Patient left the ED. tl4 Signatures: Swapna Mcpherson, RN RN cM Wadsworth PA PA cp Garcia, Rubi rg4 Luz Maria Pérez RN RN ld1 Mena Galaviz RN RN ko1 Michaela Murillo RN RN Teresa Man [facility] Dylan Nelson RN RN tm6 Ponce Dean RN RN tl4 Corrections: (The following items were deleted from the chart) 08/17 16:25 16:24 PSHx: None; ld1 ld1
[2023-08-18] MEDS ORDERED: ONDANSETRON 4 MG/2 ML VIAL IV PRN (19:17)
[2023-08-18] MEDS ORDERED: ACETAMINOPHEN 325 MG TABLET PO PRN (19:17)
--- NOTE | 2023-08-18 19:27 | P.HP ---
Certification for Inpatient Patient admitted to: Inpatient With expected LOS: >2 Midnights Practitioner: I am a practitioner with admitting privileges, knowledge of patient current condition, hospital course, and medical plan of care. Services: Services provided to patient in accordance with Admission requirements found in Title 42 Section 412.3 of the Code of Federal Regulations Patient History Date of Service: 08/18/23 Reason for admission: bilateral leg pain History of Present Illness: 73-year-old female with past medical history of chronic venous stasis dermatitis, COPD, chronic hypoxic respiratory failure on home O2 2 L nasal cannula, bilateral lower extremity cellulitis who has been followed by Dr. Christie at the wound care. Had a culture taken from the wound which was Positive for MRSA and the patient was sent over to the hospital for IV antibiotic therapy and further management. Patient denies any fever or chills. No nausea vomiting or diarrhea. No chest pain or shortness of breath. Patient had multiple procedures in the past for peripheral vascular disease as well. Patient was seen in the ER and was admitted for further management Allergies No Known Allergies Allergy (Verified 08/14/22 15:30) Home medications list reviewed: Yes Home Medications: Apixaban [Eliquis *] 2.5 mg PO BID 08/14/22 Hydrocodone 5/APAP 325 [[place] 5/325*] 1 tab PO Q4H PRN 08/14/22 Levothyroxine [Synthroid*] 1 tab PO 0630 08/14/22 Melatonin [Melatonin*] 3 mg PO BEDTIME 08/14/22 Metoprolol Tartrate [Lopressor*] 25 mg PO BID 08/14/22 Mirtazapine [Remeron] 30 mg PO BEDTIME 08/14/22 Mometasone/Formoterol [Dulera 100 Mcg-5 Mcg Inhaler] 2 puff IN BID 08/14/22 methocarbamoL [Robaxin*] 500 mg PO BID 08/14/22 predniSONE [Deltasone*] 10 mg PO DAILY 08/14/22 Iron/FA/Vit B-Com W/C [Hemocyte Plus*] 1 tab PO DAILY WITH BREAKFAST #30 tab 08/28/22 Albuterol Neb [Proventil 0.083% Neb Soln] 2.5 mg NEB [id number] PRN #120 amp 05/05/23 Collagenase [Santyl Ointment*] 1 appl TOP DAILY #1 tube 11/28/23 Furosemide [Lasix*] 40 mg PO DAILY #30 tab 05/05/23 Gabapentin [Neurontin*] 100 mg PO TID #90 cap 05/05/23 Ipratropium Neb [Atrovent*] 0.5 mg NEB [id number] PRN #120 amp 05/05/23 Nebulizer 1 each MC TID #1 ea 05/05/23 Ciprofloxacin HCl [Cipro] 500 mg PO BID 12 Days 06/13/23 Doxycycline Hyclate [Vibramycin] 100 mg PO BID 12 Days 06/13/23 Hydrocodone 7.5/APAP 325 [[place] 7.5/325 mg*] 1 tab PO Q6H PRN tab 06/13/23 - Past Medical/Surgical History Diabetic: No Past Medical History: Reviewed- Non-Contributory -: COPDon home O2 -: Tobacco use -: Attention -: Chronic venous stasis dermatitis Past Surgical History: Reviewed- Non-Contributory -: -: Appendectomy Psychosocial/ Personal History: Patient is at home, alone - Family History Mother -: Hypertension, Lung disease - Social History Smoking Status: Former smoker Alcohol use: No CD- Drugs: No Caffeine use: No Review of Systems 10-point ROS is otherwise unremarkable General: Unremarkable Eyes: Unremarkable ENT: Unremarkable Respiratory: Unremarkable Cardiovascular: Unremarkable Gastrointestinal: Unremarkable Genitourinary: Unremarkable Musculoskeletal: Leg Pain, Pedal edema Integumentary: Unremarkable Neurological: Unremarkable Physical Examination - Vital Signs Temperature: 98.4 F Blood Pressure: 112/72 Pulse: 78 Respirations: 18 Pulse Ox (%): 94 - Physical Exam General: Alert, In no apparent distress, Oriented x3 HEENT: Atraumatic, Normocephalic Neck: Supple, No Thyromegaly Respiratory: Clear to auscultation bilaterally, Expiratory wheezes Cardiovascular: Normal pulses, Regular rate/rhythm, Normal S1 S2, No gallops, No rubs Capillary refill: <2 Seconds Gastrointestinal: Soft and benign, Non-distended, W/out hepatosplenomegaly Musculoskeletal: Swelling, Erythema, Tenderness Integumentary: Tenderness/swelling, Erythema Neurological: Normal speech, Normal strength at 5/5 x4 extr, Cranial nerves 3-12 intact, Normal reflexes 2+, Normal affect Lymphatics: No axilla or inguinal lymphadenopathy - Studies Laboratory Data (last 24 hrs) 03/12/24 03/12/24 03/12/24 17:14 17:14 17:14 WBC 5.90 Hgb 10.6 L Hct 32.4 L Plt Count 247 PT 11.9 INR 1.08 APTT 30.1 Sodium 139 Potassium 3.5 BUN 20 H Creatinine 0.83 Glucose 93 Total Bilirubin 0.2 AST 16 ALT 15 Alkaline Phosphatase 106 Assessment and Plan - Problems (Diagnosis) (1) Cellulitis of both lower extremities Current Visit: Yes Status: Acute Plan: Pain control Appreciate help from Dr. Christie Will put a consult from Dr. Christie Started on IV antibiotics Wound culture came back positive for MRSA .Will start on vancomycin and cefepime Obtain vancomycin trough Pharmacy to dose vancomycin May need home health for IV antibiotic therapy (2) Venous stasis ulcers of both lower extremities Current Visit: No Status: Chronic Plan: Wound care as per Dr. Christie Followed by vascular surgery Pain control Monitor closely (3) Chronic hypoxic respiratory failure Current Visit: Yes Status: Chronic Plan: On home O2 2 L nasal cannula Has a history of COPD Former smoker Monitor saturation Titrate oxygen supplementation (4) COPD (chronic obstructive pulmonary disease) Current Visit: No Status: Chronic Plan: Not in exacerbation Continue home medications and titrate as needed Bronchodilators as needed Qualifiers: (5) Protein calorie malnutrition Current Visit: Yes Status: Acute Plan: Recommended nutritional supplements dietary consult Qualifiers: Protein-calorie malnutrition severity: moderate Qualified Code(s): E44.0 - Moderate protein-calorie malnutrition Discharge Plan: Home - Advance Directives Does patient have a Living Will: No Does patient have a Durable POA for Healthcare: No - Code Status/Comfort Care Code Status: Full Code Time Spent Managing Pts Care (In Minutes): 56
[2023-08-18] MEDS ORDERED: HYDROCODONE/APAP 5/325 MG TAB PO PRN (20:24)
[2023-08-18] MEDS ORDERED: HYDROCODONE/APAP 7.5/325 MG TAB PO PRN (20:24)
[2023-08-18] MEDS: MIRTAZAPINE 15 MG TAB PO SCH (21:00)
[2023-08-18] MEDS: MELATONIN 3 MG TABLET PO SCH (21:00)
[2023-08-18] MEDS: CEFEPIME 1 GM in NA CHLORIDE 0.9% 100 ML IV SCH (21:00)
[2023-08-18] MEDS: APIXABAN 2.5 MG TABLET PO SCH (21:00)
[2023-08-18] MEDS: METOPROLOL TAR 25 MG TAB PO SCH (21:00)
[2023-08-18] MEDS: methocarbamoL 500 MG TAB PO SCH (21:00)
[2023-08-18] MEDS: GABAPENTIN 100 MG CAP PO SCH (21:00)
[2023-08-18 21:36] VITALS: BMI 19.3
[2023-08-18] MEDS: VANCOMYCIN 1 GM in NA CHLORIDE 0.9% 250 ML IVPB SCH (22:00)
[2023-08-18] MEDS ORDERED: APIXABAN 5 MG TABLET ONE (22:19)
[2023-08-18] MEDS ORDERED: NA CHLORIDE 0.9% 100 ML ONE (22:20)
[2023-08-18] MEDS ORDERED: CEFEPIME 1 GM/VIAL ONE (22:20)
[2023-08-18] MEDS ORDERED: METOPROLOL TAR 25 MG TAB ONE (22:20)
[2023-08-18] MEDS: GABAPENTIN 100 MG CAP ONE (22:22)
[2023-08-19 00:03] LABS: Specific Gravity 1.009 (1.005-1.030); Urine Bilirubin NEGATIVE (Negative); Urine Blood Negative (Negative); Urine Clarity Clear (Clear); Urine Color Colorless (Yellow); Urine Glucose NEGATIVE (Negative); Urine Protein NEGATIVE (Negative); Urine Urobilinogen Normal (Normal)
[2023-08-19 04:47] LABS: Absolute Basophils 0.1 K/uL (0-0.5); Absolute Eosinophils 0.6 K/uL (0-0.5); Absolute Lymphocytes (CBC) 0.6 K/uL (0.7-4.9); Absolute Monocytes 0.9 K/uL (0.1-1.3); Absolute Neutrophil 4.1 K/uL (1.8-8.0); Basophils % 1.1 % (0-1.3); Eosinophils % 8.9 % (0-4.4); Hematocrit 32.2 % (36.0-45.0); Hemoglobin 10.5 g/dL (12.0-15.0); Lymphocytes % 9.9 % (15.3-44.8); MCH 28.1 pg (27.0-35.0); MCHC 32.4 g/dL (32.0-36.0); MCV 86.6 fL (80-100); MPV 8.1 fL (7.6-11.3); Neutrophils % 65.1 % (41.7-73.7); Platelets 244 thou/uL (152-406); RBC Red Blood Cell Count 3.72 M/uL (3.86-4.86); Red Cell Distribution Width 16.7 % (12.1-15.2)
[2023-08-19 05:00] LABS: Albumin 2.8 g/dL (3.4-5.0); Albumin/Globulin Ratio 0.7 (1.1-1.8); Anion Gap 5.9 mEq/L (5.0-15.0); Bilirubin Total 0.2 mg/dL (0.2-1.0); Globulin 4.2 g/dL (2.3-3.5); Potassium 3.9 mEq/L (3.5-5.1)
[2023-08-19] MEDS: LEVOTHYROXINE SOD 0.1 MG TAB PO SCH (06:30)
[2023-08-19] MEDS: FE SULF/FA/VIT B COMP & C TAB PO SCH (08:00)
[2023-08-19] MEDS ORDERED: APIXABAN 5 MG TABLET ONE (08:34)
[2023-08-19] MEDS ORDERED: methocarbamoL 500 MG TAB ONE (08:35)
[2023-08-19] MEDS ORDERED: FUROSEMIDE 40 MG TABLET ONE (08:35)
[2023-08-19] MEDS ORDERED: POTASSIUM CL SA 10 MEQ TAB PO ONE (08:35)
[2023-08-19] MEDS ORDERED: METOPROLOL TAR 25 MG TAB ONE (08:35)
[2023-08-19] MEDS ORDERED: CEFEPIME 1 GM/VIAL ONE (08:36)
[2023-08-19] MEDS ORDERED: NA CHLORIDE 0.9% 250 ML ONE (08:40)
[2023-08-19] MEDS: FUROSEMIDE 40 MG TABLET PO SCH (08:43)
[2023-08-19] MEDS: POTASSIUM CL SA 10 MEQ TAB PO ONE (08:43)
[2023-08-19] MEDS: COLLAGENASE 30 GM OINTMENT TOP SCH (08:44)
[2023-08-19] MEDS ORDERED: ENOXAPARIN 40 MG/0.4 ML SQ SCH (09:00)
[2023-08-19] MEDS: MEDIHONEY 44 ML TOPICAL TUBE TOP SCH (12:00)
--- NOTE | 2023-08-19 12:30 | P.CNS ---
Date of Consult: 08/19/23 Reason for Consult: bilateral LE cellullitis, open ulcers Chief Complaint: bilateral leg pain History of Present Illness: 73 y/o with h/o PVD , chronic arterial ulcers treated at local wound healing center, recent revascularization with multidrug resistant bilateral leg cellulitis R>L. Allergies No Known Allergies Allergy (Verified 08/14/22 15:30) Home Medications: Apixaban [Eliquis *] 2.5 mg PO BID 08/14/22 Hydrocodone 5/APAP 325 [[place] 5/325*] 1 tab PO Q4H PRN 08/14/22 Levothyroxine [Synthroid*] 1 tab PO 0630 08/14/22 Melatonin [Melatonin*] 3 mg PO BEDTIME 08/14/22 Metoprolol Tartrate [Lopressor*] 25 mg PO BID 08/14/22 Mirtazapine [Remeron] 30 mg PO BEDTIME 08/14/22 Mometasone/Formoterol [Dulera 100 Mcg-5 Mcg Inhaler] 2 puff IN BID 08/14/22 methocarbamoL [Robaxin*] 500 mg PO BID 08/14/22 predniSONE [Deltasone*] 10 mg PO DAILY 08/14/22 Iron/FA/Vit B-Com W/C [Hemocyte Plus*] 1 tab PO DAILY WITH BREAKFAST #30 tab 08/28/22 Albuterol Neb [Proventil 0.083% Neb Soln] 2.5 mg NEB [id number] PRN #120 amp 05/05/23 Collagenase [Santyl Ointment*] 1 appl TOP DAILY #1 tube 05/05/23 Furosemide [Lasix*] 40 mg PO DAILY #30 tab 05/05/23 Gabapentin [Neurontin*] 100 mg PO TID #90 cap 05/05/23 Ipratropium Neb [Atrovent*] 0.5 mg NEB [id number] PRN #120 amp 05/05/23 Nebulizer 1 each MC TID #1 ea 05/05/23 Ciprofloxacin HCl [Cipro] 500 mg PO BID 12 Days 06/13/23 Doxycycline Hyclate [Vibramycin] 100 mg PO BID 12 Days 06/13/23 Hydrocodone 7.5/APAP 325 [[place] 7.5/325 mg*] 1 tab PO Q6H PRN tab 06/13/23 - Past Medical/Surgical History Diabetic: No -: COPDon home O2 -: Tobacco use -: Attention -: Chronic venous stasis dermatitis -: -: Appendectomy Psychosocial/ Personal History: Patient is at home, alone - Family History Mother Medical History: Hypertension, Lung disease - Social History Smoking Status: Former smoker (stopped a month ago) Alcohol use: No CD- Drugs: No Caffeine use: No Place of Residence: Home Review of Systems General: Weakness, Malaise Respiratory: As per HPI Cardiovascular: As per HPI Gastrointestinal: Unremarkable Musculoskeletal: As per HPI Integumentary: As per HPI Physical Examination Temp Pulse Resp BP Pulse Ox 98.2 F 81 16 159/85 H 100 08/19/23 12:19 08/19/23 12:21 08/19/23 12:21 08/19/23 12:21 08/19/23 08:44 General: Alert, Oriented x3, Cooperative HEENT: PERRLA Neck: Supple Respiratory: Clear to auscultation bilaterally Cardiovascular: Abnormal pulses Gastrointestinal: Soft and benign Integumentary: Erythema, Warmth, Arterial ulcer (bilateral ) Neurological: Normal speech Laboratory Data (last 24 hrs) 08/18/23 08/18/23 08/18/23 17:14 17:14 17:14 WBC 5.90 Hgb 10.6 L Hct 32.4 L Plt Count 247 PT 11.9 INR 1.08 APTT 30.1 Sodium 139 Potassium 3.5 BUN 20 H Creatinine 0.83 Glucose 93 Total Bilirubin 0.2 AST 16 ALT 15 Alkaline Phosphatase 106 Conclusions/Impression: IV ABX ID consult [place] dressing
[2023-08-19] MEDS: VANCOMYCIN 1 GM in NA CHLORIDE 0.9% 250 ML IVPB SCH (13:15)
[2023-08-19] MEDS: ALBUTEROL 2.5 MG/3 ML NEB SOL NEB PRN (14:40)
[2023-08-19] MEDS ORDERED: VANCOMYCIN 1 GM in NA CHLORIDE 0.9% 250 ML IVPB SCH (19:00)
[2023-08-20] MEDS: IPRATROPIUM BROM 0.5MG/2.5ML NEB PRN (07:50)
[2023-08-20 08:01] VITALS: O2SAT 99
--- NOTE | 2023-08-20 08:17 | P.PN ---
Subjective Date of Service: 08/20/23 Chief Complaint: bilateral leg pain Subjective: No new changes, Tolerating diet, Doing well <Buffy Torres - Last Filed: 08/20/23 08:13> Date of Service: 08/21/23 <Trinity Bazan - Last Filed: 08/21/23 00:22> Review of Systems 10-point ROS is otherwise unremarkable General: As per HPI Respiratory: As per HPI Integumentary: As per HPI <Buffy Torreslen - Last Filed: 08/20/23 08:13> Physical Examination - Vital Signs Temperature: 97.6 F Blood Pressure: 122/80 Pulse: 69 Respirations: 17 Pulse Ox (%): 98 - Physical Exam General: Alert, In no apparent distress, Oriented x3, Cooperative, Cachectic HEENT: Atraumatic, Normocephalic Neck: Supple, 2+ carotid pulse no bruit Respiratory: Expiratory wheezes, Other (severe COPD, kyphosis) Cardiovascular: No edema, Normal pulses, Regular rate/rhythm Capillary refill: <2 Seconds Gastrointestinal: Soft and benign Musculoskeletal: No clubbing Integumentary: Arterial ulcer, Other (with cellulitis, edema to bilateral lower extremities, pallor) Neurological: Normal speech Lymphatics: No axilla or inguinal lymphadenopathy External genitalia: Deferred Rectal: Deferred <Buffy Torres - Last Filed: 08/20/23 08:13> Assessment And Plan - Plan Assessment and Plan - Problems (Diagnosis) (1) Cellulitis of both lower extremities Current Visit: Yes Status: Acute Plan: Pain control Dr. Christie aware of pt, cultures Started on IV antibiotics Wound culture came back positive for MRSA .Will start on vancomycin and cefepime Obtain vancomycin trough Pharmacy to dose vancomycin May need home health for IV antibiotic therapy (2) Venous stasis ulcers of both lower extremities Current Visit: No Status: Chronic Plan: Wound care as per Dr. Christie Followed by vascular surgery Pain control Monitor closely (3) Chronic hypoxic respiratory failure Current Visit: Yes Status: Chronic Plan: On home O2 2 L nasal cannula Has a history of COPD Former smoker Monitor saturation Titrate oxygen supplementation (4) COPD (chronic obstructive pulmonary disease) Current Visit: No Status: Chronic Plan: Not in exacerbation Continue home medications and titrate as needed Bronchodilators as needed Qualifiers: (5) Protein calorie malnutrition Current Visit: Yes Status: Acute Plan: Recommended nutritional supplements dietary consult Qualifiers: Protein-calorie malnutrition severity: moderate Qualified Code(s): E44.0 - Moderate protein-calorie malnutrition Discharge Plan: Home Discharge Plan: Home Plan to discharge in: 48 Hours <Buffy Torres - Last Filed: 08/20/23 08:13> Date of Service: 08/20/23 Please see DC summary <Trinity Bazan - Last Filed: 08/21/23 00:22>
--- NOTE | 2023-08-20 08:40 | P.CNS ---
Date of Consult: 08/20/23 Reason for Consult: BLE Cellulitis, MRSA Chief Complaint: bilateral leg pain History of Present Illness: Patient is a 73-year-old female with past medical history of chronic venous stasis dermatitis, COPD, chronic hypoxic respiratory failure on home O2 2 L n chetna cannula and bilateral lower extremity cellulitis who has been followed by Dr. Christie at the wound care center. Patient was admitted due to wound culture positive for MRSA requiring further evaluation. Infectious disease was consulted. Allergies No Known Allergies Allergy (Verified 08/14/22 15:30) Home medications list reviewed: Yes Home Medications: Apixaban [Eliquis *] 2.5 mg PO BID 08/14/22 Hydrocodone 5/APAP 325 [[place] 5/325*] 1 tab PO Q4H PRN 08/14/22 Levothyroxine [Synthroid*] 1 tab PO 0630 08/14/22 Melatonin [Melatonin*] 3 mg PO BEDTIME 08/14/22 Metoprolol Tartrate [Lopressor*] 25 mg PO BID 08/14/22 Mirtazapine [Remeron] 30 mg PO BEDTIME 08/14/22 Mometasone/Formoterol [Dulera 100 Mcg-5 Mcg Inhaler] 2 puff IN BID 08/14/22 methocarbamoL [Robaxin*] 500 mg PO BID 08/14/22 predniSONE [Deltasone*] 10 mg PO DAILY 08/14/22 Iron/FA/Vit B-Com W/C [Hemocyte Plus*] 1 tab PO DAILY WITH BREAKFAST #30 tab 08/28/22 Albuterol Neb [Proventil 0.083% Neb Soln] 2.5 mg NEB [id number] PRN #120 amp 05/05/23 Collagenase [Santyl Ointment*] 1 appl TOP DAILY #1 tube 05/05/23 Furosemide [Lasix*] 40 mg PO DAILY #30 tab 05/05/23 Gabapentin [Neurontin*] 100 mg PO TID #90 cap 05/05/23 Ipratropium Neb [Atrovent*] 0.5 mg NEB [id number] PRN #120 amp 05/05/23 Nebulizer 1 each MC TID #1 ea 05/05/23 Ciprofloxacin HCl [Cipro] 500 mg PO BID 12 Days 06/13/23 Doxycycline Hyclate [Vibramycin] 100 mg PO BID 12 Days 06/13/23 Hydrocodone 7.5/APAP 325 [[place] 7.5/325 mg*] 1 tab PO Q6H PRN tab 06/13/23 Mupirocin Calcium [Bactroban Nasal*] 1 appl SRIDEVI BID #1 tube 08/20/23 - Past Medical/Surgical History Diabetic: No -: COPDon home O2 -: Tobacco use -: Attention -: Chronic venous stasis dermatitis -: -: Appendectomy Psychosocial/ Personal History: Patient is at home, alone - Family History Mother Medical History: Hypertension, Lung disease - Social History Smoking Status: Former smoker (stopped a month ago) Alcohol use: No CD- Drugs: No Caffeine use: No Place of Residence: Home Review of Systems 10-point ROS is otherwise unremarkable Integumentary: As per HPI Physical Examination Temp Pulse Resp BP Pulse Ox 97.6 F 69 17 122/80 98 08/20/23 08:17 08/20/23 08:17 08/20/23 08:17 08/20/23 08:17 08/20/23 08:17 General: Alert, In no apparent distress, Oriented x3, Cooperative HEENT: Atraumatic, Normocephalic, Mucous membr. moist/pink Respiratory: Diminished, Expiratory wheezes, Other (on 2L nasal cannula which she also uses at home) Cardiovascular: Regular rate/rhythm, Edema (BLE) Gastrointestinal: Normal bowel sounds, Soft and benign, Non-distended Integumentary: Arterial ulcer (BLE), Other (erythema, warmth BLE) Neurological: Normal speech Laboratory Data - Reviewed Microbiology Data - Reviewed Imagings Data: - Reviewed Conclusions/Impression: Problem List Cellulitis of bilateral lower extremities Arterial Ulcers, chronic Chronic Obstructive Pulmonary Disease (COPD) Hypertension Cellulitis, Bilateral Lower Extremities Arterial Ulcers Bilateral Lower Extremities - Wound culture 08/10: Methicillin-Resistant Staphylococcus aureus (MRSA) - Blood cultures 08/17: no growth to date - Currently on Cefepime and Vancomycin (started 08/18-) No leukocytosis Afebrile Recommendations - MRSA, Cellulitis: recommend continuing with antibiotic therapy for 14 days. Currently on Vancomycin, continue for now. Patient states she was recently prescribed Doxycycline and/or Ciprofloxacin PO, however she reports she did not take it the past few days. Alternatives for MRSA treatment: Linezolid 600mg PO BID or Doxycycline 100mg PO BID; although wound culture sensitivities not tested. - Continue Bactroban nasal ointment x 5 days - Monitor CBC, BMP, vanco troughs - Patient to follow up with Dr. Christie for wound care as outpatient Case discussed with Milana Mcneal
[2023-08-20 09:02] LABS: Magnesium 2.2 mg/dL (1.6-2.4); Phosphorus 3.3 mg/dL (2.5-4.9)
[2023-08-20] MEDS: Mupirocin NASAL 2 APPL/1 GM TUBE NAS SCH (09:30)
[2023-08-20 12:12] VITALS: BP 139/80; TEMP 98
--- NOTE | 2023-08-21 00:24 | P.PN ---
Date of Service: 08/19/23 Subjective Patient still with erythema and minimal discomfort Physical Examination - Vital Signs reviewed - Physical Exam General: Alert, In no apparent distress, Oriented x3, Cooperative, Cachectic Respiratory: Expiratory wheezes, Other (severe COPD, kyphosis) Cardiovascular: No edema, Normal pulses, Regular rate/rhythm Gastrointestinal: Soft and benign Musculoskeletal: No clubbing Integumentary: Arterial ulcer, Other (with cellulitis, edema to bilateral lower extremities, pallor) Neurological: Normal speech Assessment and Plan - Problems (Diagnosis) (1) Cellulitis of both lower extremities Current Visit: Yes Status: Acute Plan: Patient had MRSA. Culture sensitive to Zyvox. Patient minimal cellulitis of the extremities. Picture is on the computer. (2) Venous stasis ulcers of both lower extremities Current Visit: No Status: Chronic Plan: Continue outpatient follow-up with Wound Care, Dr. Christie (3) Chronic hypoxic respiratory failure Current Visit: Yes Status: Chronic Plan: continue with O2 per protocol. (4) COPD (chronic obstructive pulmonary disease) Current Visit: No Status: Chronic Plan: Compensated; continue with inhaler therapy (5) Protein calorie malnutrition Current Visit: Yes Status: Acute Plan: Recommended nutritional supplements Dietary consult
--- NOTE | 2023-08-21 00:26 | P.DS ---
Discharge Date: 08/20/23 Disposition: [place] HOME/HOME HEALTH CARE Discharge Condition: GOOD Reason for Admission: bilateral leg pain Brief History of Present Illness: Patient is a 73-year-old female with past medical history of chronic venous stasis dermatitis, COPD, chronic hypoxic respiratory failure on home O2 2 L nasal cannula, bilateral lower extremity cellulitis who has been followed by Dr. Christie at the wound care. Had a culture taken from the wound which was Positive for MRSA and the patient was sent over to the hospital for IV antibiotic therapy and further management. Patient denies any fever or chills. No nausea vomiting or diarrhea. No chest pain or shortness of breath. Patient had multiple procedures in the past for peripheral vascular disease as well. Patient was seen in the ER and was admitted for further management Hospital Course: patient clinically doing well. Patient's cellulitis is very stable and no significant erythema noted. Patient will continue with outpatient wound care. Patient had MRSA in the cultures and will continue with Zyvox for 2 weeks. At this time, patient is stable for discharge with outpatient follow-up. Vital Signs/Physical Exam: Temp Pulse Resp BP Pulse Ox 98 F 69 20 139/80 99 08/20/23 11:00 08/20/23 11:00 08/20/23 11:00 08/20/23 11:00 08/20/23 11:00 General: Alert, In no apparent distress, Oriented x3 Laboratory Data at Discharge: WBC 6.20 thou/uL (4.3-10.9) 08/19/23 04:18 Hgb 10.5 g/dL (12.0-15.0) L 08/19/23 04:18 Hct 32.2 % (36.0-45.0) L 08/19/23 04:18 Plt Count 244 thou/uL (152-406) 08/19/23 04:18 PT 11.9 SECONDS (9.5-12.5) 08/18/23 17:14 INR 1.08 08/18/23 17:14 APTT 30.1 SECONDS (24.3-36.9) 08/18/23 17:14 Sodium 143 mEq/L (136-145) 08/19/23 04:18 Potassium 4.1 mEq/L (3.5-5.1) 08/19/23 08:36 BUN 15 mg/dL (7-18) 08/19/23 04:18 Creatinine 0.72 mg/dL (0.55-1.02) 08/19/23 04:18 Glucose 94 mg/dL (74-106) 08/19/23 04:18 Phosphorus 3.3 mg/dL (2.5-4.9) 08/20/23 08:40 Magnesium 2.2 mg/dL (1.6-2.4) 08/20/23 08:40 Total Bilirubin 0.2 mg/dL (0.2-1.0) 08/19/23 04:18 AST 18 U/L (15-37) 08/19/23 04:18 ALT 13 U/L (13-56) 08/19/23 04:18 Alkaline Phosphatase 98 U/L (45-117) 08/19/23 04:18 Home Medications: Apixaban [Eliquis *] 2.5 mg PO BID 08/14/22 Hydrocodone 5/APAP 325 [[place] 5/325*] 1 tab PO Q4H PRN 08/14/22 Levothyroxine [Synthroid*] 1 tab PO 0630 08/14/22 Melatonin [Melatonin*] 3 mg PO BEDTIME 08/14/22 Metoprolol Tartrate [Lopressor*] 25 mg PO BID 08/14/22 Mirtazapine [Remeron] 30 mg PO BEDTIME 08/14/22 Mometasone/Formoterol [Dulera 100 Mcg-5 Mcg Inhaler] 2 puff IN BID 08/14/22 methocarbamoL [Robaxin*] 500 mg PO BID 08/14/22 predniSONE [Deltasone*] 10 mg PO DAILY 08/14/22 Iron/FA/Vit B-Com W/C [Hemocyte Plus*] 1 tab PO DAILY WITH BREAKFAST #30 tab 08/28/22 Albuterol Neb [Proventil 0.083% Neb Soln] 2.5 mg NEB [id number] PRN #120 amp 05/05/23 Collagenase [Santyl Ointment*] 1 appl TOP DAILY #1 tube 05/05/23 Furosemide [Lasix*] 40 mg PO DAILY #30 tab 05/05/23 Gabapentin [Neurontin*] 100 mg PO TID #90 cap 05/05/23 Ipratropium Neb [Atrovent*] 0.5 mg NEB [id number] PRN #120 amp 05/05/23 Nebulizer 1 each MC TID #1 ea 05/05/23 Ciprofloxacin HCl [Cipro] 500 mg PO BID 12 Days 06/13/23 Doxycycline Hyclate [Vibramycin] 100 mg PO BID 12 Days 06/13/23 Hydrocodone 7.5/APAP 325 [[place] 7.5/325 mg*] 1 tab PO Q6H PRN tab 06/13/23 Linezolid [Zyvox] 600 mg PO BID #20 tab 08/20/23 Mupirocin Calcium [Bactroban Nasal*] 1 appl SRIDEVI BID #1 tube 08/20/23 New Medications: Mupirocin Calcium [Bactroban Nasal*] 1 appl SRIDEVI BID #1 tube Linezolid [Zyvox] 600 mg PO BID #20 tab Physician Discharge Instructions: -DC IV and DC home -Follow-up with PCP in 1 to 2 weeks -Follow-up with [facility] in 1 to 2 weeks [phone] -Please call Dr. Bazan at [phone] if any questions regarding hospital stay -Please call nursing station at [phone] if any nursing or medication questions -Return to the emergency room if symptoms worsen Your Home Health will resume upon discharge: [facility] M:[phone] [facility] P:[phone] Diet: Low sodium (heart healthy) Activity: Fall precautions Followup: SUNG FLORES [Primary Care Provider] - 1-2 Weeks Time spent managing pt's care (in minutes): 35
--- NOTE | 2023-08-21 17:34 | EKG ---
Test Date: 2023-08-18 Test Time: 16:10:46 Concrete Saw Operator: DEEJAY MEASUREMENT RESULTS: Intervals: Rate: 79 IN: 196 QRSD: 68 QT: 372 QTc: 426 [place]: P: 63 IN: 196 QRS: 95 T: 74 INTERPRETIVE STATEMENTS: Normal sinus rhythm Septal infarct, age undetermined Abnormal ECG Compared to ECG 06/08/2023 14:43:23 Myocardial infarct finding now present Electronically Signed On 08-21-23 17:25:11 CDT by Reed Herrera
== END 2023-08-20 15:23 | disposition home health service (06) | DRG 603 ==
LOC: ER 16:06 → ERHOLD 19:17 → 2ND 08-19 12:06
PROVIDERS: ADMIT Family Medicine; ATTEND Hospitalist
DX: L03.115 Cellulitis of right lower limb (principal); E44.0 Moderate protein-calorie malnutrition; J96.11 Chronic respiratory failure with hypoxia; L97.919 Non-pressure chronic ulcer of unspecified part of right lower leg with unspecified severity; L97.929 Non-pressure chronic ulcer of unspecified part of left lower leg with unspecified severity; Z68.1 Body mass index [BMI] 19.9 or less, adult; R64 Cachexia; L03.116 Cellulitis of left lower limb; I10 Essential (primary) hypertension; I83.009 Varicose veins of unspecified lower extremity with ulcer of unspecified site; E03.9 Hypothyroidism, unspecified; J44.9 Chronic obstructive pulmonary disease, unspecified; B95.62 Methicillin resistant Staphylococcus aureus infection as the cause of diseases classified elsewhere; Z60.2 Problems related to living alone; Z90.49 Acquired absence of other specified parts of digestive tract; Z99.81 Dependence on supplemental oxygen; Z79.52 Long term (current) use of systemic steroids; Z79.01 Long term (current) use of anticoagulants; Z79.890 Hormone replacement therapy; Z79.899 Other long term (current) drug therapy; Z87.891 Personal history of nicotine dependence
CPT/HCPCS: 36415; 80053; 80202; 81003; 82947; 83605; 83735; 84100; 84132; 85025; 85610; 85730; 87040; 93005; 94640; 96374; 99285; J0692; J3590; J7050; J7613; J7644

== ENCOUNTER 2023-11-16 14:10 | Emergency (ER) | payer OTHER ==
[2023-11-16] MEDS ORDERED: IPRATROPIUM BROM 0.5MG/2.5ML ONE (14:28)
[2023-11-16] MEDS ORDERED: ALBUTEROL 2.5 MG/3 ML NEB SOL ONE (14:28)
[2023-11-16] MEDS ORDERED: GABAPENTIN 300 MG CAP ONE (14:42)
[2023-11-16 14:53] LABS: Absolute Eosinophils 0.2 K/uL (0-0.5); Absolute Lymphocytes (CBC) 0.7 K/uL (0.7-4.9); Absolute Monocytes 1.2 K/uL (0.1-1.3); Absolute Neutrophil 11.2 K/uL (1.8-8.0); Basophils % 0.3 % (0-1.3); Eosinophils % 1.8 % (0-4.4); Hematocrit 33.4 % (36.0-45.0); Hemoglobin 10.5 g/dL (12.0-15.0); Lymphocytes % 5.3 % (15.3-44.8); MCH 26.8 pg (27.0-35.0); MCHC 31.4 g/dL (32.0-36.0); MCV 85.4 fL (80-100); MPV 7.5 fL (7.6-11.3); Monocytes % 9.3 % (3.3-12.3); Neutrophils % 83.3 % (41.7-73.7); Platelets 376 thou/uL (152-406); RBC Red Blood Cell Count 3.91 M/uL (3.86-4.86); Red Cell Distribution Width 16.4 % (12.1-15.2)
--- NOTE | 2023-11-16 15:39 | RAD REPORT ---
EXAM DESCRIPTION: Ruben Single View11/16/2023 3:16 pm CLINICAL HISTORY: Shortness breath COMPARISON: June 2023 FINDINGS: Mild chronic appearing interstitial lung opacities The lungs appear clear of acute infiltrate. The heart is mildly enlarged IMPRESSION: No acute abnormalities displayed
[2023-11-16 15:46] LABS: AST/SGOT 13 U/L (15-37); Albumin/Globulin Ratio 0.4 (1.1-1.8); Alkaline Phosphatase 118 U/L (45-117); Anion Gap 3.7 mEq/L (5.0-15.0); BUN Blood Urea Nitrogen 22 mg/dL (7-18); Bicarbonate 37 mEq/L (21-32); Bilirubin Total 0.3 mg/dL (0.2-1.0); Globulin 4.6 g/dL (2.3-3.5); Glomerular Filtration Rate 61 ml/min (=/>90); Glucose Level 95 mg/dL (74-106); Magnesium 2.6 mg/dL (1.6-2.4); NT PRO-BNP 436 pg/mL (<125); Potassium 4.7 mEq/L (3.5-5.1); Protein, Total 6.6 g/dL (6.4-8.2); Sodium Level 130 mEq/L (136-145); Troponin High Sensitivity 12.6 pg/mL (<58.9)
[2023-11-16 15:47] LABS: ALT/SGPT < 14 U/L (13-56); Bilirubin Direct < 0.2 mg/dL (0-0.2); Bilirubin Indirect, Calculated 0.1 mg/dL (0.2-0.8)
[2023-11-16 15:48] LABS: PT Prothrombin Time 12.5 SECONDS (9.5-12.5); Protime INR 1.14
--- NOTE | 2023-11-16 17:18 | EDPHYS ---
Physician Documentation [facility] Name: Elena Bruno Age: 73 yrs Sex: Female : 1950 Arrival Date: 11/16/2023 Time: 14:10 Bed 4 Private MD: ED Physician Richa Richard HPI: 11/15 14:17 This 73 yrs old Female presents to ER via Unassigned with complaints of shortness of sp3 breath and reported lethargy. 14:18 73-year-old female with a history of hypertension, COPD, history of cellulitis now sp3 presents to the ED referred by home health for increased shortness of breath relative to baseline and witnessed lethargy now somewhat resolved. Patient is on her baseline 3 L oxygen at home. Patient does state that her shortness of breath is worse and she is also having increased neuropathy pain bilateral feet. She states that some of the increased respiratory rate is due to that. She denies fever, increasing productiveness of her cough, chest pain, back pain, abdominal pain, syncope, vomiting, diarrhea, or any other signs or symptoms on ROS at this time.. Historical: - Allergies: 14:21 No Known Allergies; kc6 - PMHx: 14:21 Chronic obstructive lung disease; Hypertensive disorder; Hypothyroidism; Myocardial kc6 infarction; - PSHx: 14:21 Appendectomy; Hip surgery; Uterus surgery; kc6 - Immunization history:: Adult Immunizations up to date. - Infectious Disease History:: Denies. - Social history:: Smoking status: Patient/guardian denies using tobacco, the patient reports quitting approximately 1 years ago. ROS: 14:22 Constitutional: Negative for fever, chills, and weight loss, Eyes: Negative for injury, sp3 pain, redness, and discharge, ENT: Negative for injury, pain, and discharge, Neck: Negative for injury, pain, and swelling, Cardiovascular: Negative for chest pain, palpitations, and edema, Abdomen/GI: Negative for abdominal pain, nausea, vomiting, diarrhea, and constipation, Back: Negative for injury and pain, Skin: Negative for injury, rash, and discoloration, Neuro: Negative for headache, weakness, numbness, tingling, and seizure, Psych: Negative for depression, anxiety, suicide ideation, homicidal ideation, and hallucinations, Allergy/Immunology: Negative for hives, rash, and allergies, Endocrine: Negative for neck swelling, polydipsia, polyuria, polyphagia, and marked weight changes, Hematologic/Lymphatic: Negative for swollen nodes, abnormal bleeding, and unusual bruising, 14:22 All other systems are negative, Exam: 14:22 Constitutional: This is a well developed, well nourished patient who is awake, alert, sp3 and in no acute distress. Head/Face: Normocephalic, atraumatic. Eyes: Pupils equal round and reactive to light, extra-ocular motions intact. Lids and lashes normal. Conjunctiva and sclera are non-icteric and not injected. Cornea within normal limits. Periorbital areas with no swelling, redness, or edema. ENT: Nares patent. No nasal discharge, no septal abnormalities noted. External auditory canals are clear. Oropharynx with no redness, swelling, or masses, exudates, or evidence of obstruction, uvula midline. Mucous membranes moist. Neck: Trachea midline, no thyromegaly or masses palpated, and no cervical lymphadenopathy. Supple, full range of motion without nuchal rigidity, or vertebral point tenderness. No Meningismus. Chest/axilla: Normal chest wall appearance and motion. Nontender with no deformity. No lesions are appreciated. Cardiovascular: Regular rate and rhythm with a normal S1 and S2. No gallops, murmurs, or rubs. Normal PMI, no JVD. No pulse deficits. Abdomen/GI: Soft, non-tender, with normal bowel sounds. No distension or tympany. No guarding or rebound. No evidence of tenderness throughout. Back: No spinal tenderness. No costovertebral tenderness. Full range of motion. Skin: Warm, dry with normal turgor. Normal color with no rashes, no lesions, and no evidence of cellulitis. MS/ Extremity: Pulses equal, no cyanosis. Neurovascular intact. Full, normal range of motion. Neuro: Awake and alert, GCS 15, oriented to person, place, time, and situation. Cranial nerves II-XII grossly intact. Motor strength 5/5 in all extremities. Sensory grossly intact. Cerebellar exam normal. Normal gait. Psych: Awake, alert, with orientation to person, place and time. Behavior, mood, and affect are within normal limits. 14:22 Respiratory: Scattered wheeze and respiratory rate anywhere from 18-24. 98% on 3 L nasal cannula., 15:37 ECG was reviewed by the Attending Physician. EKG demonstrates normal sinus rhythm at 88 sp3 bpm with normal intervals, normal QRS, normal axis, nonspecific diffuse ST's ST changes without evidence of acute ischemia. EKG is somewhat limited secondary to motion artifact. Vital Signs: 14:20 BP 143 / 90; Pulse 89; Resp 18 S; Temp 98(A); Pulse Ox 98% on 3 lpm NC; Weight 53.98 kg kc6 (M); Height 5 ft. 8 in. (R); 15:16 BP 107 / 74; Pulse 94; Resp 18 S; Pulse Ox 98% on 3 lpm NC; kc6 16:30 BP 100 / 61; Pulse 88; Resp 16; Pulse Ox 96% ; db 17:30 BP 110 / 88; Pulse 87; Resp 18; Pulse Ox 96% ; db 14:20 Body Mass Index 18.09 (53.98 kg, 172.72 cm) kc6 MDM: 14:16 Patient medically screened. sp3 14:22 Data reviewed: vital signs, nurses notes, old medical records, lab test result(s), EKG, sp3 radiologic studies. ED course: 73-year-old female with dyspnea and PMH above. Differential diagnosis includes COPD exacerbation, pneumonia, acute coronary syndrome, electrolyte abnormality, CHF, among others. I am not highly suspicious for sepsis or shock. Workup will include chest x-ray, EKG, laboratory values and general respiratory support with any layered on antibiotics and further medications as indicated. Disposition pending workup and patient course.. 17:14 ED course: Patient much improved after nebulizer treatment and gabapentin for her pain. sp3 Patient states that she wants to go home. Sodium 130 noted. I have advised patient to increase her p.o. intake at home. She is grateful and request to be discharged. Repeat vital signs all within normal limits.. 11/15 14:17 Order name: Basic Metabolic Panel; Complete Time: 16:35 sp3 11/15 14:17 Order name: CBC with Diff; Complete Time: 17:40 sp3 11/15 14:17 Order name: LFT's; Complete Time: 16:35 sp3 11/15 14:17 Order name: Magnesium; Complete Time: 16:35 sp3 11/15 14:17 Order name: NT PRO-BNP; Complete Time: 16:35 sp3 11/15 14:17 Order name: PT-INR; Complete Time: 16:35 sp3 11/15 14:17 Order name: Troponin HS; Complete Time: 16:35 sp3 11/15 17:29 Order name: CBC Smear Scan; Complete Time: 17:40 EDMD 11/15 14:17 Order name: XRAY Chest (1 view); Complete Time: 15:40 sp3 11/15 14:17 Order name: Cardiac monitoring; Complete Time: 14:23 sp3 11/15 14:17 Order name: EKG - Nurse/Tech; Complete Time: 14:41 sp3 11/15 14:17 Order name: IV Saline Lock; Complete Time: 14:41 sp3 11/15 14:17 Order name: Labs collected and sent; Complete Time: 14:41 sp3 11/15 14:17 Order name: O2 Per Protocol; Complete Time: 14:23 sp3 11/15 14:17 Order name: O2 Sat Monitoring; Complete Time: 14:23 sp3 11/15 14:17 Order name: Vital Signs; Complete Time: 14:23 sp3 11/15 15:03 Order name: Labs - recollect needed: recollect green and blue top; Complete Time: 15:16 bd Administered Medications: 14:41 Drug: DuoNeb Nebulize (3:1) (2.5 mg - 0.5 mg) 3 ml Nebulizer once Route: Nebulizer; kc6 15:16 Follow up: Response: No adverse reaction kc6 14:47 Drug: Gabapentin PO 300 mg PO once Route: PO; kc6 15:16 Follow up: Response: No adverse reaction kc6 Disposition Summary: 11/16/23 17:17 Discharge Ordered Notes: Location: Home sp3 Condition: Stable sp3 Diagnosis - COPD/ Chronic obstructive pulmonary disease, unspecified sp3 Followup: sp3 - With: Private Physician - When: Upon discharge from the Emergency Department - Reason: Continuance of care Discharge Instructions: - Discharge Summary Sheet sp3 - Chronic Obstructive Pulmonary Disease sp3 Forms: - Medication Reconciliation Form sp3 - Antibiotic Education sp3 - Prescription Opioid Use sp3 - Patient Portal Instructions sp3 - Leadership Thank You Letter sp3 Signatures: Dispatcher [employer] EDShreya Brenner Setul, MD MD sp3 Cyn Chaudhary RN RN kc6 Corrections: (The following items were deleted from the chart) 14:17 14:17 Chest Single View+[email or web address] ordered. EDMS EDMS
--- NOTE | 2023-11-16 17:18 | ER ---
Nurse's Notes [facility] Name: Elena Bruno Age: 73 yrs Sex: Female : 1950 Arrival Date: 11/16/2023 Time: 14:10 Bed 4 Private MD: Diagnosis: COPD/ Chronic obstructive pulmonary disease, unspecified Presentation: 11/15 14:20 Chief complaint: EMS states: they were toned out by home health nurse for lethargy and kc6 SOB. Coronavirus screen: At this time, the client does not indicate any symptoms associated with coronavirus-19. Ebola Screen: No symptoms or risks identified at this time. Initial Sepsis Screen: Does the patient meet any 2 criteria? No. Patient's initial sepsis screen is negative. Does the patient have a suspected source of infection? No. Patient's initial sepsis screen is negative. Risk Assessment: Do you want to hurt yourself or someone else? Patient reports no desire to harm self or others. Onset of symptoms was November 16, 2023. 14:20 Method Of Arrival: EMS: [facility] kc6 14:20 Acuity: FABBY 3 kc6 Triage Assessment: 14:21 General: Appears in no apparent distress. uncomfortable, slender, unkempt, Behavior is kc6 calm, cooperative, appropriate for age. Pain: Complains of pain in right foot, left foot, right leg and left leg. EENT: No signs and/or symptoms were reported regarding the EENT system. Neuro: Level of Consciousness is awake, alert, obeys commands, Oriented to person, place, time, situation, Appropriate for age. Cardiovascular: Denies chest pain, Heart tones S1 S2 present Capillary refill < 3 seconds Rhythm is sinus rhythm. Respiratory: Reports shortness of breath at rest on exertion Airway is patent Trachea midline Respiratory effort is even, labored, pursed lip, Respiratory pattern is regular, symmetrical, Onset: The symptoms/episode began/occurred today, the patient has mild shortness of breath. GI: No signs and/or symptoms were reported involving the gastrointestinal system. : No signs and/or symptoms were reported regarding the genitourinary system. Derm: Skin is fragile, is thin, with poor turgor Skin is dry, Skin is normal, Skin temperature is warm Wound noted right foot, left foot, right leg and left leg. Musculoskeletal: No signs and/or symptoms reported regarding the musculoskeletal system. Circulation, motion, and sensation intact. Capillary refill < 3 seconds, Range of motion: intact in all extremities. Historical: - Allergies: 14:21 No Known Allergies; kc6 - PMHx: 14:21 Chronic obstructive lung disease; Hypertensive disorder; Hypothyroidism; Myocardial kc6 infarction; - PSHx: 14:21 Appendectomy; Hip surgery; Uterus surgery; kc6 - Immunization history:: Adult Immunizations up to date. - Infectious Disease History:: Denies. - Social history:: Smoking status: Patient/guardian denies using tobacco, the patient reports quitting approximately 1 years ago. Screenin:23 [facility] ED Fall Risk Assessment (Adult) History of falling in the last 3 months, [facility] including since admission No falls in past 3 months (0 pts) Confusion or Disorientation No (0 pts) Intoxicated or Sedated No (0 pts) Impaired Gait Yes (1 pt) Mobility Assist Device Used Yes (1 pt) Altered Elimination No (0 pt) Score/Fall Risk Level 0 - 2 = Low Risk. Abuse screen: Denies threats or abuse. Denies injuries from another. Nutritional screening: No deficits noted. Tuberculosis screening: No symptoms or risk factors identified. Assessment: 14:23 Reassessment: please see triage. [facility] 15:16 Reassessment: Patient appears in no apparent distress at this time. No changes from [facility] previously documented assessment. Patient and/or family updated on plan of care and expected duration. Pain level reassessed. Patient is alert, oriented x 3, equal unlabored respirations, skin warm/dry/pink. 17:55 Reassessment: Patient appears in no apparent distress at this time. Patient and/or db family updated on plan of care and expected duration. Pain level reassessed. Patient is alert, oriented x 3, equal unlabored respirations, skin warm/dry/pink. EMS ARRIVAL FOR PT TRANSPORT. General: Appears in no apparent distress. comfortable, Behavior is calm, cooperative. Neuro: Level of Consciousness is awake, alert, obeys commands, Oriented to person, place, time, situation. Respiratory: Airway is patent Respiratory effort is even. Vital Signs: 14:20 BP 143 / 90; Pulse 89; Resp 18 S; Temp 98(A); Pulse Ox 98% on 3 lpm NC; Weight 53.98 kg [facility] (M); Height 5 ft. 8 in. (R); 15:16 BP 107 / 74; Pulse 94; Resp 18 S; Pulse Ox 98% on 3 lpm NC; kc6 16:30 BP 100 / 61; Pulse 88; Resp 16; Pulse Ox 96% ; db 17:30 BP 110 / 88; Pulse 87; Resp 18; Pulse Ox 96% ; db 14:20 Body Mass Index 18.09 (53.98 kg, 172.72 cm) kc6 ED Course: 14:16 Patient arrived in ED. bd 14:16 Richa Richard MD is Attending Physician. sp3 14:19 Cyn Chaudhary, CHRIS is Primary Nurse. kc6 14:21 Triage completed. kc6 14:21 Arm band placed on. kc6 14:21 Warm blanket given. Pillow given. kc6 14:23 Patient has correct armband on for positive identification. Bed in low position. Call kc6 light in reach. Side rails up X2. teletypesetter monitor on. Pulse ox on. NIBP on. 14:40 Patient requests pain medication. kc6 14:41 Initial Neb Treatment Given as ordered Patient was instructed and evaluated on kc6 procedure Patient tolerated procedure well without adverse effect. Inserted saline lock: 20 gauge in right antecubital area, using aseptic technique. Blood collected. 15:17 XRAY Chest (1 view) In Process Unspecified. EDMS 15:24 Warm blanket given. kc6 17:56 Provided Education on: DISCHARGE AND FOLLOWUP. db 17:56 No provider procedures requiring assistance completed. IV discontinued, intact, db bleeding controlled, No redness/swelling at site. Administered Medications: 14:41 Drug: DuoNeb Nebulize (3:1) (2.5 mg - 0.5 mg) 3 ml Nebulizer once Route: Nebulizer; kc6 15:16 Follow up: Response: No adverse reaction kc6 14:47 Drug: Gabapentin PO 300 mg PO once Route: PO; kc6 15:16 Follow up: Response: No adverse reaction kc6 Medication: 17:56 VIS not applicable for this client. db Outcome: 17:17 Discharge ordered by . sp3 17:52 Patient left the ED. ll1 17:56 Discharged to home via ambulance, db 17:56 Condition: stable 17:56 Instructed on discharge instructions, follow up and referral plans. Signatures: Dispatcher [employer] Shreya Tafoya Lynsay RN RN ll1 Richa Richard MD MD sp3 Cyn Chaudhary RN RN kc6 Michaela Murillo RN RN db
[2023-11-16 17:28] LABS: Blood Morphology Comment NOT SEEN (NOT SEEN); Platelet Estimate ADEQ; White Blood Cell Scan OK (OK)
[2023-11-16 18:08] VITALS: BP 107/74; TEMP 98; O2SAT 98
--- NOTE | 2023-11-17 15:08 | EKG ---
Test Date: 2023-11-16 Test Time: 14:27:09 Stock Room Manager: VINICIO MEASUREMENT RESULTS: Intervals: Rate: 88 ME: 138 QRSD: 82 QT: 350 QTc: 423 [place]: P: 57 ME: 138 QRS: 93 T: 62 INTERPRETIVE STATEMENTS: Normal sinus rhythm Normal ECG Compared to ECG 08/18/2023 16:10:46 Myocardial infarct finding no longer present Electronically Signed On 11-17-23 15:06:04 CDT by Reed Herrera
== END 2023-11-16 17:52 | disposition home or self-care (01) ==
LOC: ER 14:10
DX: J44.1 Chronic obstructive pulmonary disease with (acute) exacerbation (principal)
CPT/HCPCS: 93005; 85025; 80048; 36415; 83735; 85610; 80076; 84484; 83880; 71045; 94640; 99285; J7613; J7644

== ENCOUNTER 2024-03-22 03:37 | Inpatient (IN) | payer OTHER ==
[2024-03-22 04:12] LABS: PT Prothrombin Time 10.7 SECONDS (9.4-12.5); Protime INR 0.95
[2024-03-22 04:13] LABS: Absolute Basophils 0.1 K/uL (0-0.5); Absolute Eosinophils 0.4 K/uL (0-0.5); Absolute Lymphocytes (CBC) 0.7 K/uL (0.7-4.9); Absolute Monocytes 0.8 K/uL (0.1-1.3); Absolute Neutrophil 4.3 K/uL (1.8-8.0); Basophils % 0.9 % (0-1.3); Eosinophils % 6.8 % (0-4.4); Hematocrit 32.7 % (36.0-45.0); Hemoglobin 10.1 g/dL (12.0-15.0); Lymphocytes % 11.6 % (15.3-44.8); MCH 26.6 pg (27.0-35.0); MCHC 30.9 g/dL (32.0-36.0); MCV 86.1 fL (80-100); MPV 7.5 fL (7.6-11.3); Monocytes % 12.4 % (3.3-12.3); Neutrophils % 68.3 % (41.7-73.7); Platelets 216 thou/uL (152-406); Red Cell Distribution Width 16.4 % (12.1-15.2)
[2024-03-22] MEDS ORDERED: ONDANSETRON 4 MG/2 ML VIAL ONE (04:26)
[2024-03-22] MEDS ORDERED: MORPHINE 2 MG/ML SYR ONE ×3 (04:26→09:41)
[2024-03-22] MEDS ORDERED: NA CHLORIDE 0.9% 1,000 ML ONE (04:27)
[2024-03-22] MEDS ORDERED: NA CHLORIDE 0.9% 500 ML ONE (04:27)
[2024-03-22 04:29] LABS: AST/SGOT 18 U/L (15-37); Albumin 2.4 g/dL (3.4-5.0); Albumin/Globulin Ratio 0.5 (1.1-1.8); Alkaline Phosphatase 90 U/L (45-117); Anion Gap 5.7 mEq/L (5.0-15.0); BUN Blood Urea Nitrogen 24 mg/dL (7-18); Bicarbonate 30 mEq/L (21-32); Bilirubin Total 0.2 mg/dL (0.2-1.0); Globulin 4.5 g/dL (2.3-3.5); Glomerular Filtration Rate 60 ml/min (=/>90); Glucose Level 99 mg/dL (74-106); Magnesium 2.4 mg/dL (1.6-2.4); NT PRO-BNP 209 pg/mL (<450); Potassium 4.7 mEq/L (3.5-5.1); Protein, Total 6.9 g/dL (6.4-8.2); Sodium Level 136 mEq/L (136-145); Troponin High Sensitivity 9.4 pg/mL (<58.9)
[2024-03-22 04:40] LABS: ALT/SGPT < 14 U/L (13-56); Bilirubin Direct < 0.2 mg/dL (0-0.2)
--- NOTE | 2024-03-22 04:59 | EDPHYS ---
Physician Documentation [facility] Name: Elena Bruno Age: 74 yrs Sex: Female : 1950 Arrival Date: 03/22/2024 Time: 03:37 Bed 14 Private MD: ED Physician Mc Ibarra HPI: 03/22 04:53 This 74 yrs old Female presents to ER via EMS with complaints of Fall Injury. anastasia 04:53 Details of fall: The patient fell from an upright position, while walking. Onset: The anastasia symptoms/episode began/occurred just prior to arrival, today. Associated injuries: The patient sustained left hip, left gluteal fold, left inner thigh and left upper thigh, decreased range of motion, painful injury. Severity of symptoms: At their worst the symptoms were moderate, in the emergency department the symptoms are unchanged. The patient has not experienced similar symptoms in the past. Historical: - Allergies: 03:58 No Known Allergies; dd2 - PMHx: 03:58 Chronic obstructive lung disease; Hypertensive disorder; Hypothyroidism; Myocardial dd2 infarction; - PSHx: 03:58 Appendectomy; Hip surgery; Uterus surgery; dd2 - Immunization history:: Adult Immunizations up to date. - Infectious Disease History:: Denies. - Social history:: Smoking status: Patient denies any tobacco usage or history of. - Family history:: not pertinent. ROS: 04:53 Constitutional: Negative for fever, chills, and weight loss, Eyes: Negative for injury, anastasia pain, redness, and discharge, ENT: Negative for injury, pain, and discharge, Neck: Negative for injury, pain, and swelling, Cardiovascular: Negative for chest pain, palpitations, and edema, Respiratory: Negative for shortness of breath, cough, wheezing, and pleuritic chest pain, Abdomen/GI: Negative for abdominal pain, nausea, vomiting, diarrhea, and constipation, Back: Negative for injury and pain, : Negative for injury, bleeding, discharge, and swelling, Skin: Negative for injury, rash, and discoloration, Neuro: Negative for headache, weakness, numbness, tingling, and seizure, Psych: Negative for depression, anxiety, suicide ideation, homicidal ideation, and hallucinations, Allergy/Immunology: Negative for hives, rash, and allergies, Endocrine: Negative for neck swelling, polydipsia, polyuria, polyphagia, and marked weight changes, Hematologic/Lymphatic: Negative for swollen nodes, abnormal bleeding, and unusual bruising, 04:53 MS/extremity: Positive for injury or acute deformity, decreased range of motion, pain, tenderness, of the left hip, left gluteal fold, left inner thigh and left upper thigh, Exam: 04:53 Constitutional: This is a well developed, well nourished patient who is awake, alert, anastasia and in no acute distress. Head/Face: Normocephalic, atraumatic. Eyes: Pupils equal round and reactive to light, extra-ocular motions intact. Lids and lashes normal. Conjunctiva and sclera are non-icteric and not injected. Cornea within normal limits. Periorbital areas with no swelling, redness, or edema. ENT: Nares patent. No nasal discharge, no septal abnormalities noted. Tympanic membranes are normal and external auditory canals are clear. Oropharynx with no redness, swelling, or masses, exudates, or evidence of obstruction, uvula midline. Mucous membranes moist. Neck: Trachea midline, no thyromegaly or masses palpated, and no cervical lymphadenopathy. Supple, full range of motion without nuchal rigidity, or vertebral point tenderness. No Meningismus. Chest/axilla: Normal chest wall appearance and motion. Nontender with no deformity. No lesions are appreciated. Cardiovascular: Regular rate and rhythm with a normal S1 and S2. No gallops, murmurs, or rubs. Normal PMI, no JVD. No pulse deficits. Respiratory: Lungs have equal breath sounds bilaterally, clear to auscultation and percussion. No rales, rhonchi or wheezes noted. No increased work of breathing, no retractions or nasal flaring. Abdomen/GI: Soft, non-tender, with normal bowel sounds. No distension or tympany. No guarding or rebound. No evidence of tenderness throughout. Back: No spinal tenderness. No costovertebral tenderness. Full range of motion. Female : Normal external genitalia. Neuro: Awake and alert, GCS 15, oriented to person, place, time, and situation. Cranial nerves II-XII grossly intact. Motor strength 5/5 in all extremities. Sensory grossly intact. Cerebellar exam normal. Normal gait. Psych: Awake, alert, with orientation to person, place and time. Behavior, mood, and affect are within normal limits. 04:53 Musculoskeletal/extremity: Extremities: noted in the left hip, left gluteal fold, left inner thigh and left upper thigh: decreased ROM, erythema, pain, ROM: limited active range of motion due to pain, limited passive range of motion due to pain, Circulation is intact in all extremities. Sensation intact. Compartment Syndrome exam of affected extremity: is normal. Weight bearing: is unable to bear weight, DVT Exam: negative Homans' sign noted on exam, no appreciated bluish discoloration, no erythema, no increased warmth, pain, swelling, tenderness, 05:06 ECG was reviewed by the Attending Physician. [facility] Vital Signs: 03:50 BP 133 / 89; Pulse 81; Resp 18; Temp 97.9; Pulse Ox 96% on 2 lpm NC; Weight 48.53 kg; dd2 04:59 BP 133 / 78; Pulse 77; Resp 18; Pulse Ox 95% on 2 lpm NC; dd2 06:52 BP 115 / 78; Pulse 69; Resp 17; Pulse Ox 95% on 2 lpm NC; dd2 08:10 BP 112 / 76; Pulse 77; Resp 17; Pulse Ox 96% on 2 lpm NC; rs5 09:15 BP 115 / 74; Pulse 75; Resp 17; Pulse Ox 94% on 2 lpm NC; rs5 [place] Coma Score: 04:06 Eye Response: spontaneous(4). Motor Response: obeys commands(6). Verbal Response: dd2 oriented(5). Total: 15. MDM: 03:46 Medical Screening Exam initiated anastasia 04:56 Differential diagnosis: contusion, fracture, laceration, multiple trauma, sprain, anastasia strain. Data reviewed: vital signs, nurses notes, EMS record, lab test result(s), EKG, radiologic studies, plain films. Consideration of Admission/Observation Patient was admitted/placed on observation. Escalation of care including admission/observation considered. I considered the following discharge prescriptions or medication management in the emergency department Medications were administered in the Emergency Department. See MAR. Independent interpretation of the following test(s) in the Emergency Department EKG: See my EKG interpretation above. Test considered but Not performed: CT: NO CT CHEST. 03/22 03:51 Order name: Basic Metabolic Panel; Complete Time: 04:50 [facility] 03/22 03:51 Order name: CBC with Diff; Complete Time: 04:50 [facility] 03/22 03:51 Order name: LFT's; Complete Time: 04:50 anastasia 03/22 03:51 Order name: Magnesium; Complete Time: 04:50 anastasia 03/22 03:51 Order name: NT PRO-BNP; Complete Time: 04:50 anastasia 03/22 03:51 Order name: PT-INR; Complete Time: 04:50 anastasia 03/22 03:51 Order name: Troponin HS; Complete Time: 04:50 anastasia 03/22 03:51 Order name: Urinalysis w/ reflexes anastasia 03/22 04:50 Order name: Blood Culture Adult (2) 03/22 04:50 Order name: Lactate w/ 2H reflex if indic. 03/22 04:53 Order name: Type And Screen anastasia 03/22 08:43 Order name: Basic Metabolic Panel EDMS 03/22 08:43 Order name: Basic Metabolic Panel EDMS 03/22 08:43 Order name: Basic Metabolic Panel EDMS 03/22 08:43 Order name: Basic Metabolic Panel EDMS 03/22 08:43 Order name: Basic Metabolic Panel EDMS 03/22 08:43 Order name: Basic Metabolic Panel EDMS 03/22 08:43 Order name: Basic Metabolic Panel EDMS 03/22 08:44 Order name: Basic Metabolic Panel EDMS 03/22 08:44 Order name: CBC with Automated Diff EDMS /15 08:44 Order name: CBC with Automated Diff EDMS /15 08:44 Order name: CBC with Automated Diff EDMS /15 08:44 Order name: CBC with Automated Diff EDMS /15 08:44 Order name: CBC with Automated Diff EDMS 10/15 08:44 Order name: CBC with Automated Diff EDMS /15 08:44 Order name: CBC with Automated Diff EDMS 10/15 08:44 Order name: CBC with Automated Diff EDMS 10/15 08:44 Order name: Magnesium EDMS /15 08:44 Order name: Magnesium EDMS 10/15 08:44 Order name: Magnesium EDMS /15 08:44 Order name: Magnesium EDMS /15 08:44 Order name: Magnesium EDMS 10/15 08:44 Order name: Magnesium EDMS /15 08:44 Order name: Magnesium EDMS /15 08:44 Order name: Magnesium EDMS /15 08:44 Order name: Phosphorus EDMS 03/22 08:44 Order name: Phosphorus EDMS 03/22 08:44 Order name: Phosphorus EDMS 03/22 08:44 Order name: Phosphorus EDMS 03/22 08:44 Order name: Phosphorus EDMS 03/22 08:44 Order name: Phosphorus EDMS 03/22 08:44 Order name: Phosphorus EDMS 03/22 08:44 Order name: Phosphorus EDMS 03/22 08:44 Order name: Troponin High Sensitivity EDMS 03/22 08:44 Order name: Troponin High Sensitivity EDMS 03/22 08:44 Order name: Troponin High Sensitivity EDMS 03/22 10:00 Order name: PTT, Activated Partial Thromb EDMS 03/22 13:03 Order name: PTT, Activated Partial Thromb EDMS 03/22 03:51 Order name: XRAY Chest (1 view) [facility] 03/22 03:51 Order name: Pelvis XRAY [facility] 03/22 03:51 Order name: Hip Left 2 View XRAY [facility] 03/22 03:51 Order name: Femur Left XRAY [facility] 03/22 04:50 Order name: US Extremity Venous W Compression Nick [facility] 03/22 11:26 Order name: CT [facility] 03/22 03:51 Order name: EKG; Complete Time: 03:51 anastasia 03/22 08:43 Order name: CONS Physician Consult [facility] 03/22 03:51 Order name: Cardiac monitoring; Complete Time: 04:19 anastasia 03/22 03:51 Order name: EKG - Nurse/Tech; Complete Time: 04:19 anastasia 03/22 03:51 Order name: IV Saline Lock; Complete Time: 04:57 anastasia 03/22 03:51 Order name: Labs collected and sent; Complete Time: 04:57 03/22 03:51 Order name: O2 Per Protocol; Complete Time: 04:19 anastasia 03/22 03:51 Order name: O2 Sat Monitoring; Complete Time: 04:19 anastasia 03/22 06:57 Order name: Labs - recollect needed: recollect type and screen,re band pt; Complete bd Time: 07:14 EC:06 Rate is 73 beats/min. Rhythm is regular. QRS [place] is Normal. [place] interval is normal. QRS anastasia interval is normal. QT interval is normal. No Q waves. T waves are Normal. No ST changes noted. Clinical impression: NSR w/ Non-specific ST/T Changes and No evidence of ischemia. Interpreted by me. Reviewed by me. Administered Medications: 04:56 Drug: morphine IVP or IV 2 mg IVP once over 4 mins Route: IVP; Infused Over: 4 mins; dd2 Site: right antecubital; 05:11 Follow up: Response: No adverse reaction dd2 04:56 Drug: Ondansetron IVP 4 mg IVP once; over 2 minutes Route: IVP; Site: right antecubital;dd2 05:11 Follow up: Response: No adverse reaction dd2 04:57 Drug: NS 0.9% IV 500 ml 500 ml IV at 1 bolus once; to be given as a bolus over 30 dd2 minutes Volume: 500 ml; Route: IV; Rate: 1 bolus; Site: right antecubital; 05:12 Follow up: Response: No adverse reaction dd2 05:29 Follow up: Response: No adverse reaction; IV Status: Completed infusion; IV Intake: dd2 500ml 04:57 Drug: NS 0.9% IV 1000 ml IV at 125 ml/hr continuous Route: IV; Rate: 125 ml/hr; Site: dd2 right antecubital; 10:17 Follow up: IV Status: Infusion continued upon admission; IV Intake: 500ml rs5 06:14 Drug: Piperacillin-Tazobactam IVPB 3.375 grams IVPB once over 60 mins; (mix in NS 100 dd2 mL) Route: IVPB; Infused Over: 60 mins; Site: right antecubital; 06:29 Follow up: Response: No adverse reaction dd2 07:14 Drug: morphine IVP or IV 2 mg IVP once over 4 mins Route: IVP; Infused Over: 4 mins; rs5 Site: left antecubital; 07:30 Follow up: Response: No adverse reaction; Pain is decreased rs5 Disposition Summary: 03/22/24 04:58 Hospitalization Ordered Notes: Hospitalization Status: Inpatient Admission anastasia Provider: Phu Pablo cha Condition: Stable anastasia Problem: new anastasia Symptoms: have improved anastasia Bed/Room Type: Standard anastasia Location: Telemetry/MedSurg (Inpatient)(03/22/24 13:57) bd Room Assignment: 205(03/22/24 13:57) bd Diagnosis - Fall on same level, unspecified anastasia - Displaced intertrochanteric fracture of left femur, initial encounter for closed anastasia fracture - Edema, unspecified anastasia - Cellulitis of other parts of limb - LEFT LOWER LEG anastasia - COPD/ Chronic obstructive pulmonary disease, unspecified anastasia - Acute embolism and thrombosis of unspecified deep veins of left lower extremity anastasia Forms: - Medication Reconciliation Form anastasia - SBAR form anastasia - Leadership Thank You Letter anastasia Signatures: Dispatcher [employer] EDMS Shreya Navarro Corey, MD MD cha Bradberry, Kelly RN RN kb3 Charles Rey RN RN rs5 Lizeth Suggs DIANA RN RN dd2 Corrections: (The following items were deleted from the chart) 03:51 03:51 Hip Left 2 View+RAD.RAD.BRZ ordered. EDMS EDMS 03:52 03:52 Femur Left+RAD.RAD.BRZ ordered. EDMS EDMS 04:51 04:51 BLOOD CULTURE*+BA.LAB.BRZ ordered. EDMS EDMS 04:51 04:51 LACTATE+C.LAB.BRZ ordered. EDMS EDMS 05:24 04:58 Telemetry/MedSurg (Inpatient) anastasia vk 05:24 04:58 anastasia vk 07:42 05:24 BR ER HOLD vk kb3 07:42 05:24 ERHOLD- vk kb3 09:47 07:42 Telemetry/MedSurg (Inpatient) kb3 bd 09:47 07:42 kb3 bd 13:57 09:47 BR ER HOLD bd bd 13:57 09:47 ERHOLD- bd bd
--- NOTE | 2024-03-22 04:59 | ER ---
Nurse's Notes [facility] Name: Elena Bruno Age: 74 yrs Sex: Female : 1950 Arrival Date: 03/22/2024 Time: 03:37 Bed 14 Private MD: Diagnosis: Fall on same level, unspecified;Displaced intertrochanteric fracture of left femur, initial encounter for closed fracture;Edema, unspecified;Cellulitis of other parts of limb-LEFT LOWER LEG;COPD/ Chronic obstructive pulmonary disease, unspecified;Acute embolism and thrombosis of unspecified deep veins of left lower extremity Presentation: 03/22 03:50 Chief complaint: EMS states: Pt brought in via EMS for fall. Per EMS, pt was ambulating dd2 to the kitchen using her walker, tripped and fell landing on left hip. Pt denies LOC, denies hitting her head. C/O pain to Left hip with movement. Coronavirus screen: At this time, the client does not indicate any symptoms associated with coronavirus-19. Ebola Screen: No symptoms or risks identified at this time. Initial Sepsis Screen: Does the patient meet any 2 criteria? No. Patient's initial sepsis screen is negative. Does the patient have a suspected source of infection? No. Patient's initial sepsis screen is negative. Risk Assessment: Do you want to hurt yourself or someone else? Patient reports no desire to harm self or others. Onset of symptoms was March 22, 2024. Care prior to arrival: Medication(s) given: fentanyl 100 mcg x1. 03:50 Method Of Arrival: EMS: [facility] dd2 03:50 Acuity: FABBY 3 dd2 Triage Assessment: 03:58 General: Appears uncomfortable, Behavior is calm, cooperative, appropriate for age. dd2 Pain: Complains of pain in left hip, right foot and left foot Pain currently is 6 out of 10 on a pain scale. EENT: No deficits noted. No signs and/or symptoms were reported regarding the EENT system. Neuro: Level of Consciousness is awake, alert, obeys commands, Oriented to person, place, time, situation, Appropriate for age. Cardiovascular: Denies chest pain, Patient's skin is warm and dry. Respiratory: Airway is patent Respiratory effort is unlabored, Respiratory pattern is regular, symmetrical, Breath sounds are diminished bilaterally. GI: No signs and/or symptoms were reported involving the gastrointestinal system. : No signs and/or symptoms were reported regarding the genitourinary system. Derm: Skin is thin, Skin is Wound noted right bicep, Lt shoulder Wound is SKIN TEAR REDNESS NOTED TO [place] FEET. Musculoskeletal: Range of motion: limited in BLE Reports pain in left hip. Historical: - Allergies: 03:58 No Known Allergies; dd2 - PMHx: 03:58 Chronic obstructive lung disease; Hypertensive disorder; Hypothyroidism; Myocardial dd2 infarction; - PSHx: 03:58 Appendectomy; Hip surgery; Uterus surgery; dd2 - Immunization history:: Adult Immunizations up to date. - Infectious Disease History:: Denies. - Social history:: Smoking status: Patient denies any tobacco usage or history of. - Family history:: not pertinent. Screenin:06 [facility] ED Fall Risk Assessment (Adult) History of falling in the last 3 months, dd2 including since admission Yes- single mechanical fall (1 pt) Confusion or Disorientation No (0 pts) Intoxicated or Sedated No (0 pts) Impaired Gait No (0 pts) Mobility Assist Device Used Yes (1 pt) Altered Elimination No (0 pt) Score/Fall Risk Level 0 - 2 = Low Risk Oriented to surroundings, Maintained a safe environment, Educated pt \T\ family on fall prevention, incl call for assistance when getting out of bed, Assessed \T\ reinforced patient's understanding of fall precautions, Hourly rounding (assess needs \T\ fall precautionary measures) done. Abuse screen: Denies threats or abuse. Nutritional screening: No deficits noted. Tuberculosis screening: No symptoms or risk factors identified. Assessment: 04:06 Reassessment: SEE TRIAGE ASSESSMENT FOR FULL ASSESSMENT. dd2 05:10 Reassessment: Patient and/or family updated on plan of care and expected duration. Pain rs5 level reassessed. Patient is alert, oriented x 3, equal unlabored respirations, skin warm/dry/pink. 06:01 Reassessment: Patient and/or family updated on plan of care and expected duration. Pain rs5 level reassessed. Patient is alert, oriented x 3, equal unlabored respirations, skin warm/dry/pink. nurse at bedside for wound care, pt tolerated wound care well . 07:00 General: Appears in no apparent distress. uncomfortable, Behavior is calm, cooperative. rs5 Pain: Complains of pain in left upper thigh Pain currently is 8 out of 10 on a pain scale. Quality of pain is described as aching, Is continuous. Neuro: Level of Consciousness is awake, alert, obeys commands, Oriented to person, place, time, situation. 07:00 Cardiovascular: Patient's skin is warm and dry. Respiratory: Airway is patent rs5 Respiratory effort is even, unlabored, Respiratory pattern is regular, symmetrical. GI: Abdomen is round non-distended, Abd is soft and non tender X 4 quads. : No signs and/or symptoms were reported regarding the genitourinary system. EENT: No signs and/or symptoms were reported regarding the EENT system. Derm: Skin is pink, warm \T\ dry. skin tear noted to left shoulder and right upper arm. Musculoskeletal: Range of motion: intact in all extremities. 08:10 Reassessment: Patient and/or family updated on plan of care and expected duration. Pain rs5 level reassessed. Patient is alert, oriented x 3, equal unlabored respirations, skin warm/dry/pink. 09:22 Reassessment: Patient and/or family updated on plan of care and expected duration. Pain rs5 level reassessed. Patient is alert, oriented x 3, equal unlabored respirations, skin warm/dry/pink. Vital Signs: 03:50 BP 133 / 89; Pulse 81; Resp 18; Temp 97.9; Pulse Ox 96% on 2 lpm NC; Weight 48.53 kg; dd2 04:59 BP 133 / 78; Pulse 77; Resp 18; Pulse Ox 95% on 2 lpm NC; dd2 06:52 BP 115 / 78; Pulse 69; Resp 17; Pulse Ox 95% on 2 lpm NC; dd2 08:10 BP 112 / 76; Pulse 77; Resp 17; Pulse Ox 96% on 2 lpm NC; rs5 09:15 BP 115 / 74; Pulse 75; Resp 17; Pulse Ox 94% on 2 lpm NC; rs5 [place] Coma Score: 04:06 Eye Response: spontaneous(4). Motor Response: obeys commands(6). Verbal Response: dd2 oriented(5). Total: 15. ED Course: 03:39 Patient arrived in ED. vk 03:46 Mc Ibarra MD is Attending Physician. anastasia 03:50 JILL, SYLVIA, RN is Primary Nurse. dd2 03:58 Triage completed. dd2 03:58 Arm band placed on left wrist. Patient placed in an exam room, on a stretcher, on dd2 oxygen, on gambling monitor, on pulse oximetry. 04:06 Patient has correct armband on for positive identification. Bed in low position. Call dd2 light in reach. Side rails up X2. 04:06 No provider procedures requiring assistance completed. dd2 04:18 EKG done, by ED staff, reviewed by Mc Ibarra MD. oe 04:19 Basic Metabolic Panel Sent. oe 04:19 LFT's Sent. oe 04:19 Magnesium Sent. oe 04:19 NT PRO-BNP Sent. oe 04:19 Troponin HS Sent. oe 04:50 XRAY Chest (1 view) In Process Unspecified. EDMS 04:50 Pelvis XRAY In Process Unspecified. EDMS 04:50 Hip Left 2 View XRAY In Process Unspecified. EDMS 04:50 Femur Left XRAY In Process Unspecified. EDMS 04:56 Phu Pablo MD is Hospitalizing Provider. anastasia 04:57 Provided Education on: CALL LIGHT, MEDICATIONS, LABS/RADIOLOGY, RESULT TIMES. dd2 04:57 Maintain EMS IV. Dressing intact. Good blood return noted. Site clean \T\ dry. Gauge \T\ dd 2 site: 22G RAC. Flushed with 10 mL NS. 05:27 US Extremity Venous W Compression [place] In Process Unspecified. EDMS 05:36 First set of blood cultures drawn by me. oe 05:42 Inserted saline lock: 22 gauge in left antecubital area, using aseptic technique. Blood oe collected. Flushed with 10 mL NS. 05:56 Type And Screen Sent. oe 05:56 Lactate w/ 2H reflex if indic. Sent. oe 05:59 Second set of blood cultures drawn by me. oe 06:50 Wound care: to Skin tear to Rt upper arm and lt shoulder located on Rt upper arm and Lt dd2 Shoulder was cleaned with with NS, dressed with 4X4s, Vaseline gauze. 07:05 Report given to CHRIS SANCHEZ. dd2 07:12 Primary Nurse role handed off by SYLVIA MELCHOR, CHRIS bd 07:13 Charles Rey RN is Primary Nurse. rs5 09:28 Patient admitted, IV remains in place. rs5 13:23 Álvarez cath inserted, using sterile technique, 16 Fr., by al, balloon inflated, to bc6 gravity drainage, clamped. Administered Medications: 04:56 Drug: morphine IVP or IV 2 mg IVP once over 4 mins Route: IVP; Infused Over: 4 mins; dd2 Site: right antecubital; 05:11 Follow up: Response: No adverse reaction dd2 04:56 Drug: Ondansetron IVP 4 mg IVP once; over 2 minutes Route: IVP; Site: right antecubital;dd2 05:11 Follow up: Response: No adverse reaction dd2 04:57 Drug: NS 0.9% IV 500 ml 500 ml IV at 1 bolus once; to be given as a bolus over 30 dd2 minutes Volume: 500 ml; Route: IV; Rate: 1 bolus; Site: right antecubital; 05:12 Follow up: Response: No adverse reaction dd2 05:29 Follow up: Response: No adverse reaction; IV Status: Completed infusion; IV Intake: dd2 500ml 04:57 Drug: NS 0.9% IV 1000 ml IV at 125 ml/hr continuous Route: IV; Rate: 125 ml/hr; Site: dd2 right antecubital; 10:17 Follow up: IV Status: Infusion continued upon admission; IV Intake: 500ml rs5 06:14 Drug: Piperacillin-Tazobactam IVPB 3.375 grams IVPB once over 60 mins; (mix in NS 100 dd2 mL) Route: IVPB; Infused Over: 60 mins; Site: right antecubital; 06:29 Follow up: Response: No adverse reaction dd2 07:14 Drug: morphine IVP or IV 2 mg IVP once over 4 mins Route: IVP; Infused Over: 4 mins; rs5 Site: left antecubital; 07:30 Follow up: Response: No adverse reaction; Pain is decreased rs5 Medication: 04:06 VIS not applicable for this client. dd2 Intake: 05:29 IV: 500ml; Total: 500ml. dd2 10:17 IV: 500ml; Total: 1000ml. rs5 Outcome: 04:58 Decision to Hospitalize by Provider. anastasia 09:28 Admitted to ER Hold. Please see [facility] for further documentation. rs5 09:28 Condition: stable rs5 09:28 Instructed on the need for admit, Demonstrated understanding of instructions, 15:14 Patient left the ED. rs5 Signatures: Dispatcher [employer] EDMS Shreya Navarro Corey, MD MD cha Espinosa, Orlando oe Sotelo, Ricky, RN RN rs5 Nella Whyte bc6 Lizeth Suggs DIANA, RN RN dd2 Corrections: (The following items were deleted from the chart) 06:50 03:58 Derm: Skin is thin, Skin is Wound noted right bicep Wound is SKIN TEAR REDNESS dd2 NOTED TO [place] FEET dd2
[2024-03-22] MEDS ORDERED: NA CHLORIDE 0.9% 100 ML ONE (06:01)
[2024-03-22] MEDS ORDERED: PIPERACIL/TAZO 3.375 GM VIAL IV ONE (06:01)
--- NOTE | 2024-03-22 06:13 | RAD REPORT ---
EXAM: XR Chest, 1 View CLINICAL HISTORY: The patient is 74 years old and is Female; COUGH TECHNIQUE: Frontal view of the chest. COMPARISON: No relevant prior studies available. FINDINGS: Lungs: Mildly prominent interstitial markings. No consolidation. Pleural space: Unremarkable. No pneumothorax. Heart: Unremarkable. Mediastinum: Unremarkable. Normal mediastinal contour. Bones/joints: No acute findings. IMPRESSION: Mildly prominent interstitial markings. No consolidation. Electronically signed by: Yemi Graham MD 03/22/2024 05:41 AM CDT 8 Due to temporary technical issues with the PACS/[employer] reporting system, reports are being jennifer d by the in-house radiologist without review as a courtesy to ensure prompt reporting the interpreting radiologist is fully responsible for the content of the report. Transcribed Date/Time: 03/22/2024 6:13 AM
--- NOTE | 2024-03-22 06:14 | RAD REPORT ---
EXAMINATION: XR PELVIS 1-2 VIEWS, XR FEMUR 2 VIEWS LEFT, XR HIP 2 OR MORE VIEWS LEFT INDICATION: Female, 74 years old, PAIN TECHNIQUE: One view pelvis, 2 views left hip, 4 views left femur COMPARISON(S): Pelvis CT 02/19/2023 (report only available at the time of dictation) FINDINGS: Acute, comminuted, mildly foreshortened and varus angulated fracture of the intertrochanteric left fe mur. Longitudinal fracture line extends distally past the lesser trochanter. Associated soft tissue swelling. No dislocation. No other acute fracture identified. Marked diffuse osteopenia. Severe right hip osteoarthrosis with f emoral head remodeling/collapse; no complication of the visualized right proximal femur internal fixation hardware. Lesser degenerative change of the lumbosacral spine, left hip and knee. Unremarkab le pelvic contents. Diffuse vascular calcifications. IMPRESSION: 1. Acute intertrochanteric left femur fracture. 2. Severe right hip osteoarthrosis which may involve femoral head collapse or chronic degenerative remodeling. No comparison exam images are available at the time of dictation. Electronically signed by: Ryder Mota MD 03/22/2024 05:52 AM CDT Due to temporary technical issues with the PACS/[email or web address] reporting system, reports are being jennifer d by the in-house radiologist without review as a courtesy to ensure prompt reporting the interpreting radiologist is fully responsible for the content of the report. Transcribed Date/Time: 03/22/2024 6:14 AM
--- NOTE | 2024-03-22 06:14 | RAD REPORT ---
EXAMINATION: XR PELVIS 1-2 VIEWS, XR FEMUR 2 VIEWS LEFT, XR HIP 2 OR MORE VIEWS LEFT INDICATION: Female, 74 years old, PAIN TECHNIQUE: One view pelvis, 2 views left hip, 4 views left femur COMPARISON(S): Pelvis CT 02/19/2023 (report only available at the time of dictation) FINDINGS: Acute, comminuted, mildly foreshortened and varus angulated fracture of the intertrochanteric left fe mur. Longitudinal fracture line extends distally past the lesser trochanter. Associated soft tissue swelling. No dislocation. No other acute fracture identified. Marked diffuse osteopenia. Severe right hip osteoarthrosis with f emoral head remodeling/collapse; no complication of the visualized right proximal femur internal fixation hardware. Lesser degenerative change of the lumbosacral spine, left hip and knee. Unremarkab le pelvic contents. Diffuse vascular calcifications. IMPRESSION: 1. Acute intertrochanteric left femur fracture. 2. Severe right hip osteoarthrosis which may involve femoral head collapse or chronic degenerative remodeling. No comparison exam images are available at the time of dictation. Electronically signed by: Ryder Mota MD 03/22/2024 05:52 AM CDT Due to temporary technical issues with the PACS/[employer] reporting system, reports are being jennifer d by the in-house radiologist without review as a courtesy to ensure prompt reporting the interpreting radiologist is fully responsible for the content of the report. Transcribed Date/Time: 03/22/2024 6:14 AM
--- NOTE | 2024-03-22 06:15 | RAD REPORT ---
EXAMINATION: XR PELVIS 1-2 VIEWS, XR FEMUR 2 VIEWS LEFT, XR HIP 2 OR MORE VIEWS LEFT INDICATION: Female, 74 years old, PAIN TECHNIQUE: One view pelvis, 2 views left hip, 4 views left femur COMPARISON(S): Pelvis CT 02/19/2023 (report only available at the time of dictation) FINDINGS: Acute, comminuted, mildly foreshortened and varus angulated fracture of the intertrochanteric left fe mur. Longitudinal fracture line extends distally past the lesser trochanter. Associated soft tissue swelling. No dislocation. No other acute fracture identified. Marked diffuse osteopenia. Severe right hip osteoarthrosis with f emoral head remodeling/collapse; no complication of the visualized right proximal femur internal fixation hardware. Lesser degenerative change of the lumbosacral spine, left hip and knee. Unremarkab le pelvic contents. Diffuse vascular calcifications. IMPRESSION: 1. Acute intertrochanteric left femur fracture. 2. Severe right hip osteoarthrosis which may involve femoral head collapse or chronic degenerative remodeling. No comparison exam images are available at the time of dictation. Electronically signed by: Ryder Mota MD 03/22/2024 05:52 AM CDT Due to temporary technical issues with the PACS/[employer] reporting system, reports are being jennifer d by the in-house radiologist without review as a courtesy to ensure prompt reporting the interpreting radiologist is fully responsible for the content of the report. Transcribed Date/Time: 03/22/2024 6:15 AM
[2024-03-22] MEDS: NA CHLORIDE 0.9% 1,000 ML IV SCH (09:00)
[2024-03-22] MEDS ORDERED: HEPARIN/D5W 25,000 UNIT/500 ML BAG IV ONE (09:09)
[2024-03-22] MEDS: MORPHINE 2 MG/ML SYR IV PRN (10:20)
--- NOTE | 2024-03-22 11:25 | RAD REPORT ---
EXAMINATION: CTA CHEST PE CLINICAL INDICATION: Chest pain TECHNIQUE: 100 cc 370 Isovue administered intravenously. This examination was performed according to an angiographic protocol with 3D post-processing. This involves 3D reconstructions, MIPs, volume rendered images and/or shaded surface rendering. One or more of the following dose reduction techniqu es were used: Automated exposure control, adjustment of the mA and/or kV according to patient size, and/or iterative reconstruction. Unless otherwise specified, incidental findings do not require dedic ated imaging follow-up. [id number]. COMPARISON: 2021 FINDINGS: A pulmonary embolus is not seen. An aortic dissection not noted. No pleural effusion. No pericardial effusion. COPD. Chronic appearing opacities within the left lower lobe and right upper lobe. Moderate to large hiatal hernia. Multiple compression fractures thoracic spine. Most if not all are chronic IMPRESSION: No evidence of a pulmonary embolism
--- NOTE | 2024-03-22 12:50 | P.CNS ---
Date of Consult: 03/22/24 Chief Complaint: fall History of Present Illness: Patient presented with fall that left to left femur fracture, denies any significant cardiac history except she was told that she has irregular heart rate, no chest pain, no palpitations, no syncope, no SOB, no SOOD. Allergies No Known Allergies Allergy (Verified 08/14/22 15:30) Home medications list reviewed: Yes Home Medications: Apixaban [Eliquis *] 2.5 mg PO BID 08/14/22 Hydrocodone 5/APAP 325 [[place] 5/325*] 1 tab PO Q4H PRN 08/14/22 Levothyroxine [Synthroid*] 1 tab PO 0630 08/14/22 Melatonin [Melatonin*] 3 mg PO BEDTIME 08/14/22 Metoprolol Tartrate [Lopressor*] 25 mg PO BID 08/14/22 Mirtazapine [Remeron] 30 mg PO BEDTIME 08/14/22 Mometasone/Formoterol [Dulera 100 Mcg-5 Mcg Inhaler] 2 puff IN BID 08/14/22 methocarbamoL [Robaxin*] 500 mg PO BID 08/14/22 predniSONE [Deltasone*] 10 mg PO DAILY 08/14/22 Iron/FA/Vit B-Com W/C [Hemocyte Plus*] 1 tab PO DAILY WITH BREAKFAST #30 tab 08/28/22 Albuterol Neb [Proventil 0.083% Neb Soln] 2.5 mg NEB [id number] PRN #120 amp 05/05/23 Collagenase [Santyl Ointment*] 1 appl TOP DAILY #1 tube 05/05/23 Furosemide [Lasix*] 40 mg PO DAILY #30 tab 05/05/23 Gabapentin [Neurontin*] 100 mg PO TID #90 cap 05/05/23 Ipratropium Neb [Atrovent*] 0.5 mg NEB [id number] PRN #120 amp 05/05/23 Nebulizer 1 each MC TID #1 ea 05/05/23 Ciprofloxacin HCl [Cipro] 500 mg PO BID 12 Days 06/13/23 Doxycycline Hyclate [Vibramycin] 100 mg PO BID 12 Days 06/13/23 Hydrocodone 7.5/APAP 325 [[place] 7.5/325 mg*] 1 tab PO Q6H PRN tab 06/13/23 Linezolid [Zyvox] 600 mg PO BID #20 tab 08/20/23 Mupirocin Calcium [Bactroban Nasal*] 1 appl SRIDEVI BID #1 tube 08/20/23 - Past Medical/Surgical History Diabetic: No -: COPDon home O2 -: Tobacco use -: Attention -: Chronic venous stasis dermatitis -: -: Appendectomy Psychosocial/ Personal History: Patient is at home, alone - Family History Mother Medical History: Hypertension, Lung disease - Social History Smoking Status: Former smoker (stopped a month ago) Alcohol use: No CD- Drugs: No Caffeine use: No Review of Systems 10-point ROS is otherwise unremarkable Physical Examination General: Alert, In no apparent distress HEENT: Atraumatic, PERRLA, Mucous membr. moist/pink, EOMI, Sclerae nonicteric Neck: Supple, 2+ carotid pulse no bruit, No LAD, Without JVD or thyroid abnormality Respiratory: Clear to auscultation bilaterally, Normal air movement Cardiovascular: Regular rate/rhythm, Normal S1 S2 Gastrointestinal: Normal bowel sounds, No tenderness Musculoskeletal: No tenderness Integumentary: No rashes Neurological: Normal gait, Normal speech, Normal tone, Normal affect Lymphatics: No axilla or inguinal lymphadenopathy Laboratory Data (last 24 hrs) 03/22/24 03/22/24 03/22/24 04:00 04:00 04:00 WBC 6.20 Hgb 10.1 L Hct 32.7 L Plt Count 216 PT 10.7 INR 0.95 Sodium 136 Potassium 4.7 BUN 24 H Creatinine 0.98 Glucose 99 Magnesium 2.4 Total Bilirubin 0.2 AST 18 ALT < 14 Alkaline Phosphatase 90 - Problems (1) Preoperative clearance Current Visit: Yes Status: Acute Plan: Patient denies having any cardiac symptoms, EKG reviewed with no significant ST- T wave changes, heomdynaimcally stable, patient is cleared for surgery as low to intermediate cardiac risk.
--- NOTE | 2024-03-22 14:55 | P.HP ---
Certification for Inpatient Patient admitted to: Inpatient With expected LOS: >2 Midnights Patient will require the following post-hospital care: None Practitioner: I am a practitioner with admitting privileges, knowledge of patient current condition, hospital course, and medical plan of care. Services: Services provided to patient in accordance with Admission requirements found in Title 42 Section 412.3 of the Code of Federal Regulations Patient History Date of Service: 03/22/24 Reason for admission: fall History of Present Illness: Elena Bruno is a 74-year-old female with past medical history hypertension, hypothyroidism, COPD on home O2, broken heart syndrome who presented to the ED with chief complaint of fall and left hip pain. On examination, left femur and pelvis x-ray showing intertrochanteric femur fracture. Venous ultrasound "positive for echogenic material seen at LT POP V; all other left lower extremity seen neg for dvt, neg for RLE dvt." On examination, Elena is experiencing 8/10 pain to the Left hip, left Leg externally rotated, faint peripheral Pulse present. Laboratory evaluation H&H 32, platelets 216, BUN/creatinine 24/0.98, GFR 60 Initial vitals BP 133 / 89; Pulse 81; Resp 18; Temp 97.9; Pulse Ox 96% on 2 lpm NC; CTA chest reports "no evidence of pulmonary embolism". Elena will be admitted to hospitalist service for futher treatment of Left femur fracture, Dr. Elise consulted. Allergies No Known Allergies Allergy (Verified 08/14/22 15:30) Home Medications: Levothyroxine [Synthroid*] 1 tab PO DAILY 08/14/22 Metoprolol Tartrate [Lopressor*] 25 mg PO BID 08/14/22 Albuterol Neb [Proventil 0.083% Neb Soln] 2.5 mg NEB [id number] PRN #120 amp 05/05/23 Gabapentin [Neurontin*] 100 mg PO TID #90 cap 05/05/23 - Past Medical/Surgical History Diabetic: No -: COPDon home O2 -: Tobacco use -: Attention -: Chronic venous stasis dermatitis -: Broken heart syndrome -: -: Appendectomy Psychosocial/ Personal History: Patient is at home, alone - Family History Mother -: Hypertension, Lung disease - Social History Smoking Status: Former smoker Alcohol use: No CD- Drugs: No Caffeine use: No Review of Systems Musculoskeletal: Leg Pain (left) Physical Examination - Vital Signs Temperature: 98.0 F Blood Pressure: 101/64 Pulse: 61 Respirations: 17 Pulse Ox (%): 98 - Physical Exam General: Alert, In no apparent distress, Oriented x3 HEENT: Atraumatic, Normocephalic, PERRLA Neck: Supple, 2+ carotid pulse no bruit, JVD not distended Respiratory: Clear to auscultation bilaterally, Normal air movement Cardiovascular: Normal pulses, Regular rate/rhythm, Normal S1 S2 Capillary refill: <2 Seconds Gastrointestinal: Normal bowel sounds, Soft and benign Musculoskeletal: Other (Left lower extremity externally rotated) Integumentary: No rashes Neurological: Normal speech, Normal tone - Studies Laboratory Data (last 24 hrs) 03/22/24 03/22/24 03/22/24 04:00 04:00 04:00 WBC 6.20 Hgb 10.1 L Hct 32.7 L Plt Count 216 PT 10.7 INR 0.95 Sodium 136 Potassium 4.7 BUN 24 H Creatinine 0.98 Glucose 99 Magnesium 2.4 Total Bilirubin 0.2 AST 18 ALT < 14 Alkaline Phosphatase 90 Assessment and Plan - Plan Assessment and plan Left intertrochanteric femur fracture DVT to left popliteal -left femur and pelvis x-ray showing intertrochanteric femur fracture. -Venous ultrasound "positive for echogenic material seen at LT POP V; all other left lower extremity seen neg for dvt, neg for RLE dvt." -Dr. Elise consulted -Cardiology cleared for surgery -Heparin drip, will stop 6 hours prior to surgery -Likely start Eliquis status post surgery -Pain control -PT status post surgery -N.p.o., surgery in the a.m. Chronic venous stasis dermatitis -Sees Dr. Goodman History of COPD -On home O2 -Continue home medications DVT PPx heparin GTT for now Full code 2 to 3 days Discharge Plan: Home Plan to discharge in: 24 Hours - Advance Directives Does patient have a Living Will: No Does patient have a Durable POA for Healthcare: No
[2024-03-22] MEDS: PNEUMOCOCCAL VACCINE 0.5 ML IMVAC ONE (18:00)
--- NOTE | 2024-03-22 23:06 | RAD REPORT ---
EXAMINATION: US EXTREMITY VEINS BILATERAL INDICATION: Female, 74 years old, Pain;Swelling COMPARISON(S): 06/08/2023 (report only available at the time of dictation) TECHNIQUE: Sonographic imaging of the left lower extremity. FINDINGS: Echogenic, eccentric, partial filling defect within the popliteal vein. Normal flow and compressibility in the common femoral, greater saphenous, femoral, and posterior tibi al veins. No intraluminal thrombus is visualized. Visualized waveforms demonstrate normal respiratory variability. IMPRESSION: Nonocclusive, possibly chronic thrombus in the left popliteal vein. Electronically signed by: Ryder Mota MD 03/22/2024 06:15 AM CDT RP Due to temporary technical issues with the PACS/[employer] reporting system, reports are being signed by the in-house radiologist without review as a courtesy to ensure prompt reporting the interpreting radiologist is fully responsible for the content of the report. Transcribed Date/Time: 03/22/2024 11:06 PM
[2024-03-23 05:56] LABS: Absolute Basophils 0.1 K/uL (0-0.5); Absolute Eosinophils 0.1 K/uL (0-0.5); Absolute Lymphocytes (CBC) 0.4 K/uL (0.7-4.9); Absolute Neutrophil 6.1 K/uL (1.8-8.0); Basophils % 0.7 % (0-1.3); Eosinophils % 1.7 % (0-4.4); Hematocrit 30.1 % (36.0-45.0); Hemoglobin 9.6 g/dL (12.0-15.0); Lymphocytes % 4.6 % (15.3-44.8); MCH 27.7 pg (27.0-35.0); MCV 86.3 fL (80-100); MPV 7.8 fL (7.6-11.3); Monocytes % 12.8 % (3.3-12.3); Neutrophils % 80.2 % (41.7-73.7); Nucleated Red Blood Cells % 0.1 % (0-0); Platelets 190 thou/uL (152-406); RBC Red Blood Cell Count 3.49 M/uL (3.86-4.86); Red Cell Distribution Width 15.5 % (12.1-15.2)
[2024-03-23 06:02] LABS: Anion Gap 5.3 mEq/L (5.0-15.0); Phosphorus 3.2 mg/dL (2.5-4.9); Potassium 4.3 mEq/L (3.5-5.1)
[2024-03-23] MEDS: SUGAMMADEX SODIUM 200 MG/2 ML VIAL IV ONE (07:19)
[2024-03-23] MEDS ORDERED: ALBUTEROL 2.5 MG/3 ML NEB SOL NEB PRN (07:54)
[2024-03-23] MEDS: LEVOTHYROXINE SOD 0.1 MG TAB PO SCH (09:00)
[2024-03-23] MEDS: METOPROLOL TAR 25 MG TAB PO SCH (09:00)
[2024-03-23] MEDS ORDERED: GABAPENTIN 100 MG CAP PO SCH (09:00)
[2024-03-23 12:12] VITALS: BMI 17.8
[2024-03-23] MEDS: VANCOMYCIN 1 GM in NA CHLORIDE 0.9% 250 ML IVPB SCH (12:53)
[2024-03-23 13:37] LABS: Calcium Oxalate Crystals- Ur Few /HPF (None Seen); Specific Gravity > 1.030 (1.005-1.030); Sqamous Epithelial <5 /HPF (None Seen); Urine Bacteria <20 /HPF (<20); Urine Bilirubin NEGATIVE (Negative); Urine Blood Negative (Negative); Urine Clarity Turbid (Clear); Urine Color Yellow (Yellow); Urine Culture Reflex Order REFLEXED; Urine Glucose NEGATIVE (Negative); Urine Ketones NEGATIVE (Negative); Urine Microscopic Reflex YN ORDER UMIC; Urine Mucus Slight /HPF (None Seen); Urine Nitrite NEGATIVE (Negative); Urine Protein TRACE (Negative); Urine Urobilinogen Normal (Normal); Urine Yeast (Budding) Occasional /HPF (None Seen); Urine pH 5.5 (5.0-7.0)
--- NOTE | 2024-03-23 14:18 | P.PN ---
Date of Service: 03/23/24 Subjective Awake, feeling well this morning wounds to bilateral feet are healing, working with Dr. Goodman outpatient, He will continue to manage No new complaints ROS 10 point ROS as noted above, otherwise negative Physical Exam General: Alert and Oriented x3, NAD HEENT: Atraumatic, Normocephalic, PERRLA Neck: Supple, 2+ carotid pulse no bruit, JVD not distended Respiratory: Clear to auscultation bilaterally, Normal air movement Cardiovascular: Normal pulses, Mild tachycardia, Normal S1 S2 Capillary refill: <2 Seconds Gastrointestinal: Normal bowel sounds, Soft and benign on palpation, normal active bowel sounds Musculoskeletal: Other (Left lower extremity externally rotated) Integumentary: No rashes, Chronic dermatitis to bilateral lower extremities Neurological: Normal speech, Normal tone Vitals Reviewed Problem list Left intertrochanteric femur fracture DVT to left popliteal Chronic venous stasis dermatitis UTI History of COPD Assessment and Plan Left intertrochanteric femur fracture DVT to left popliteal -left femur and pelvis x-ray showing intertrochanteric femur fracture. -Venous ultrasound "positive for echogenic material seen at LT POP V; all other left lower extremity seen neg for dvt, neg for RLE dvt." -Dr. Elise consulted -Cardiology cleared for surgery -Heparin drip, on hold for surgery this afternoon -Likely start Eliquis status post surgery -Pain control -PT status post surgery -N.p.o., surgery this afternoon Chronic venous stasis dermatitis -Sees Dr. Goodman -wound care orders per Dr. Goodman -follow wound cultures -Vancomycin UTI -UA suggestive of infectious process -follow urine culture -Pieter History of COPD -On home O2 -Continue home medications DVT PPx heparin GTT on hold for surgery this afternoon Full code 2 to 3 days Discharge Plan: Home
[2024-03-23] MEDS: CEFTRIAXONE 1,000 MG in NA CHLORIDE 0.9% 50 ML IVPB SCH (14:30)
[2024-03-23] MEDS ORDERED: MIDAZOLAM HCL 2 MG/2 ML INJ ONE (16:10)
[2024-03-23] MEDS ORDERED: Phenylephrine HCl 10 MG/ML 1 ML VIAL ONE (16:10)
[2024-03-23] MEDS ORDERED: KETOROLAC 30 MG/ML INJ ONE (16:10)
[2024-03-23] MEDS: Ringers Lactate 1,000 ML IV ONE (16:10)
[2024-03-23] MEDS ORDERED: ONDANSETRON 4 MG/2 ML VIAL ONE (16:10)
[2024-03-23] MEDS ORDERED: FENTANYL CITR 100 MCG/2 ML ONE (16:10)
[2024-03-23] MEDS ORDERED: dexAMETHasone 4 MG/ML VIAL ONE (16:11)
[2024-03-23] MEDS ORDERED: ETOMIDATE 20 MG/10 ML VIAL IV ONE (16:11)
[2024-03-23] MEDS: CEFAZOLIN SODIUM 2 GM/VIAL ONE (16:44)
[2024-03-23] MEDS ORDERED: HYDROCODONE/APAP 5/325 MG TAB PO PRN (17:09)
--- NOTE | 2024-03-23 18:23 | RAD REPORT ---
EXAM: Fluoroscopy use, Hip in OR Left 2 View HISTORY: Left hip rodding COMPARISON: None FINDINGS: Multiple images were sent to PACS, during a fluoroscopically guided procedure. No radiologi st was involved in protocoling or performance of the study, and no radiologist was present for the duration of the procedure. No interpretation of the saved images will be provided. Total fluoroscopy time: 2.8 minutes. IMPRESSION: Documentation of fluoroscopy use as above.
--- NOTE | 2024-03-23 19:33 | CON ---
Reason For Consultation: Left IT hip fracture. History Of Present Illness: Ms. Bruno is known to me from previous right IT hip fracture. She has extremely poor bone stock, barely ambulatory, quite a bit underweight. She sustained a left IT hip f racture. She is medically optimized. We will proceed with intramedullary rodding of the left hip up on medical clearance. LISA Voice ID: [id number] Report ID: [id number]
--- NOTE | 2024-03-23 19:39 | OP ---
Surgeon: Kirk Elise MD Preoperative Diagnosis: Left intertrochanteric hip fracture. Postoperative Diagnosis: Left intertrochanteric hip fracture. Procedure Performed: Intramedullary rodding, left intertrochanteric hip fracture. Geographic Information Systems Director: None. Anesthesia: General. Estimated Blood Loss: 40 cc. Procedure In Detail: The patient was taken to operative suite, placed in supine position, induced wi th anesthesia, suspended on the fracture table. The reduction maneuvers were performed. Near anatom ic reduction maneuvers could be realized. Incision created over the tip of the greater trochanter. Guidewire passed, single stage reaming of 11 x 130 nail passed, verified on biplane radiography. 100 mm lag screw was then placed. It was secured with a set screw followed by placement of a 34 mm dist al interlock screw. The patient tolerated the procedure well, was reversed from anesthesia, and take n to recovery room stable. DEDE/JUSTIN Voice ID: [id number] Report ID: [id number]
[2024-03-23] MEDS: ENSURE SURGERY 237 ML CAN PO SCH (21:00)
[2024-03-23] MEDS: WATER FOR INJ,STERILE 20 ML ONE (22:20)
[2024-03-23] MEDS: GABAPENTIN 100 MG CAP PO SCH (22:21)
[2024-03-24] MEDS: CEFAZOLIN SODIUM 1 GM/VIAL ONE ×2 (01:56→09:43)
[2024-03-24] MEDS: CEFAZOLIN 1 GM in NA CHLORIDE 0.9% 50 ML IVPB SCH (02:16)
[2024-03-24] MEDS: LEVOTHYROXINE SOD 0.1 MG TAB PO SCH (07:57)
[2024-03-24 08:33] LABS: Absolute Lymphocytes (CBC) 0.3 K/uL (0.7-4.9); Absolute Monocytes 0.8 K/uL (0.1-1.3); Absolute Neutrophil 6.7 K/uL (1.8-8.0); Basophils % 0.5 % (0-1.3); Hematocrit 30.5 % (36.0-45.0); Hemoglobin 9.5 g/dL (12.0-15.0); Lymphocytes % 4.4 % (15.3-44.8); MCH 27.1 pg (27.0-35.0); MCHC 31.1 g/dL (32.0-36.0); MCV 87.3 fL (80-100); MPV 7.9 fL (7.6-11.3); Monocytes % 10.1 % (3.3-12.3); Platelets 162 thou/uL (152-406)
[2024-03-24 08:53] LABS: Anion Gap 7.7 mEq/L (5.0-15.0); Phosphorus 3.5 mg/dL (2.5-4.9); Potassium 4.7 mEq/L (3.5-5.1)
[2024-03-24] MEDS: DOXYCYCLINE 100 MG CAP PO SCH (09:44)
[2024-03-24] MEDS: ENOXAPARIN 30 MG/0.3 ML SQ SCH (09:44)
--- NOTE | 2024-03-24 11:59 | EKG ---
Test Date: 2024-03-22 Test Time: 04:11:40 Critical Care Unit Nurse: HERMILA MEASUREMENT RESULTS: Intervals: Rate: 73 VA: 158 QRSD: 82 QT: 366 QTc: 403 [place]: P: 61 VA: 158 QRS: 94 T: 54 INTERPRETIVE STATEMENTS: Normal sinus rhythm Rightward axis Cannot rule out Anterior infarct, age undetermined Abnormal ECG Compared to ECG 11/16/2023 14:27:09 Right-axis deviation now present Myocardial infarct finding now present Electronically Signed On 03-24-24 11:53:53 CDT by Renny Parikh
[2024-03-24] MEDS: APIXABAN 5 MG TABLET PO SCH (12:12)
--- NOTE | 2024-03-24 12:14 | P.PN ---
Date of Service: 03/24/24 Subjective Awake eating breakfast, conversing well Bilateral feet dressing CDI ROS 10 point ROS as noted above, otherwise negative Physical Exam General: Awake, Alert and Oriented x3, NAD HEENT: Atraumatic, Normocephalic, PERRLA Neck: Supple, 2+ carotid pulse no bruit, JVD not distended Respiratory: Clear to auscultation bilaterally, Normal air movement Cardiovascular: NSR, Normal S1 S2 Capillary refill: <2 Seconds Gastrointestinal: Normal active bowel sounds, Soft on palpation, normal active bowel sounds Musculoskeletal: Left hip dressing CDI Integumentary: No rashes, Chronic dermatitis to bilateral lower extremities Neurological: Normal speech, Normal tone Vitals Reviewed Problem list Left intertrochanteric femur fracture S/P Left Interamedullary rodding DVT to left popliteal Chronic venous stasis dermatitis UTI History of COPD Assessment and Plan Left intertrochanteric femur fracture S/P Left Interamedullary rodding DVT to left popliteal -left femur and pelvis x-ray showing intertrochanteric femur fracture. -Venous ultrasound "positive for echogenic material seen at LT POP V; all other left lower extremity seen neg for dvt, neg for RLE dvt." -Dr. Elise consulted -Cardiology cleared for surgery -Heparin drip restarted, Eliquis first dose started, lovenox per Dr. Elise given at 9 Am -Will discharge on Eliquis for DVT -Likely start Eliquis status post surgery -Pain control -PT with TDWB left lower extremity Chronic venous stasis dermatitis -Sees Dr. Goodman -wound care orders per Dr. Goodman -follow wound cultures -Doxycycline started 03/24, Vanc stopped UTI -UA suggestive of infectious process -follow urine culture -Pieter History of COPD -On home O2 -Continue home medications DVT PPx heparin GTT restarted with Eliquis first dose Full code 2 to 3 days Discharge Plan: Home
[2024-03-24] MEDS: HEPARIN/D5W 25,000 UNIT/500 ML BAG IV SCH (13:05)
[2024-03-25 05:30] LABS: Absolute Basophils 0.1 K/uL (0-0.5); Absolute Eosinophils 0.3 K/uL (0-0.5); Absolute Lymphocytes (CBC) 0.9 K/uL (0.7-4.9); Absolute Monocytes 1.4 K/uL (0.1-1.3); Absolute Neutrophil 5.4 K/uL (1.8-8.0); Basophils % 0.7 % (0-1.3); Eosinophils % 3.8 % (0-4.4); Hematocrit 26.8 % (36.0-45.0); Hemoglobin 8.3 g/dL (12.0-15.0); Lymphocytes % 10.8 % (15.3-44.8); MCH 26.9 pg (27.0-35.0); MCV 86.8 fL (80-100); MPV 8.3 fL (7.6-11.3); Monocytes % 17.7 % (3.3-12.3); Platelets 171 thou/uL (152-406); RBC Red Blood Cell Count 3.09 M/uL (3.86-4.86); Red Cell Distribution Width 15.8 % (12.1-15.2)
[2024-03-25 05:40] LABS: Anion Gap 6.5 mEq/L (5.0-15.0); Magnesium 2.1 mg/dL (1.6-2.4); Phosphorus 1.8 mg/dL (2.5-4.9); Potassium 4.5 mEq/L (3.5-5.1)
--- NOTE | 2024-03-25 11:06 | P.PN ---
Date of Service: 03/25/24 Subjective Awake and eating breakfast Working with therapy Awaiting [place] acceptance ROS 10 point ROS as noted above, otherwise negative Physical Exam General: AAO x3, NAD HEENT: Atraumatic, Normocephalic, PERRLA Neck: Supple, 2+ carotid pulse no bruit, JVD not distended Respiratory: Clear to auscultation bilaterally, Normal air movement, 2LNC Cardiovascular: RRR, Normal S1 S2 Capillary refill: <2 Seconds Gastrointestinal: Normal active bowel sounds, Soft on palpation, normal active bowel sounds Musculoskeletal: Left hip dressing CDI Integumentary: No rashes, Chronic dermatitis to bilateral lower extremities Neurological: Normal speech, Normal tone Vitals Reviewed Problem list Left intertrochanteric femur fracture S/P Left Interamedullary rodding DVT to left popliteal Chronic venous stasis dermatitis UTI History of COPD Assessment and Plan Left intertrochanteric femur fracture S/P Left Interamedullary rodding DVT to left popliteal -left femur and pelvis x-ray showing intertrochanteric femur fracture. -Venous ultrasound "positive for echogenic material seen at LT POP V; all other left lower extremity seen neg for dvt, neg for RLE dvt." -Dr. Elise consulted -Cardiology cleared for surgery -Heparin drip stopped, Eliquis continued -Will discharge on Eliquis for DVT -Pain control -PT with TDWB left lower extremity Chronic venous stasis dermatitis -Sees Dr. Goodman -wound care orders per Dr. Goodman,cleanse with saline, allow to rest 90 secs and pat dry apply aquacel AG to all wounds with drawtex hydrofera blue to left heel, apply dry dressing on top of wound, secure with kerlix and massimo, Every thrid day, start 03/25 -follow wound cultures- proteus mirabillis, citrobacter braakii -Doxycycline started 03/24 Mild UTI -UA suggestive of infectious process -follow urine culture -Doxycycline History of COPD -On home O2 -Continue home medications DVT PPx Eliquis Full code 2 to 3 days Discharge Plan: SNF
[2024-03-25] MEDS: ALBUTEROL 2.5 MG/3 ML NEB SOL NEB SCH (13:40)
[2024-03-25 14:12] VITALS: O2SAT 100
--- NOTE | 2024-03-25 15:32 | P.DS ---
Admission Date: 03/22/24 Discharge Date: 03/25/24 Disposition: TRANSFER TO SNF - REHAB Discharge Condition: GOOD Reason for Admission: fall Brief History of Present Illness: Diagnosis Left intertrochanteric femur fracture S/P Left Interamedullary rodding DVT to left popliteal Chronic venous stasis dermatitis UTI History of COPD HPI 03/22/24 Elena Bruno is a 74-year-old female with past medical history hypertension, hypothyroidism, COPD on home O2, broken heart syndrome who presented to the ED with chief complaint of fall and left hip pain. On examination, left femur and pelvis x-ray showing intertrochanteric femur fracture. Venous ultrasound "positive for echogenic material seen at LT POP V; all other left lower extremity seen neg for dvt, neg for RLE dvt." On examination, Elena is experiencing 8/10 pain to the Left hip, left Leg externally rotated, faint peripheral Pulse present. Laboratory evaluation H&H 1032, platelets 216, BUN/creatinine 24/0.98, GFR 60 Initial vitals BP 133 / 89; Pulse 81; Resp 18; Temp 97.9; Pulse Ox 96% on 2 lpm NC; CTA chest reports "no evidence of pulmonary embolism". Elena will be admitted to hospitalist service for futher treatment of Left femur fracture, Dr. Elise consulted. Hospital Course: Elena Bruno is a pleasant 74 year old female with a past medical history significant for hypertension, hypothyroidism, COPD on home O2, broken heart syndrome who was admitted to the [facility] on 03/22/24 for left femur fracture. Elena presented to the ED with Left hip pain. Venous ultrasound reported a DVT to left popliteal and left Xray showing intertrochanteric femure fracture. Dr. Elise consulted and performed surgery with out complication on 03/23. She has tolerated a heparin gtt and transition to Eliquis. Dr. Goodman consulted for bilateral Chronic venous stasis dermatitis as he manages her wound care. Mild UTI was found during this admission, no urine culture growth. She has tolerated IV antibiotics and transitioned to Doxycycline based on wound cultures. Elena has worked with PT and was accepted to [facility] for continued Rehab. On 03/25/24, Elena was seen on morning rounds and deemed medically stable for discharge. Elena was discharged with instructions to schedule follow-up appointments with PCP, Dr. Ratliff, and Dr. Elise. Elena was provided prescri ptions for doxycycline and Eliquis. Physical Exam General: AAO x3, NAD HEENT: Atraumatic, Normocephalic, PERRLA Neck: Supple, 2+ carotid pulse no bruit, JVD not distended Respiratory: Clear to auscultation bilaterally, Normal air movement, 2LNC Cardiovascular: RRR, Normal S1 S2 Capillary refill: <2 Seconds Gastrointestinal: Normal active bowel sounds, Soft on palpation, normal active bowel sounds Musculoskeletal: Left hip dressing CDI Integumentary: No rashes, Chronic dermatitis to bilateral lower extremities, dressing CDI Neurological: Normal speech, Normal tone Vital Signs/Physical Exam: Temp Pulse Resp BP Pulse Ox 97.4 F 62 16 114/56 L 98 03/25/24 12:00 03/25/24 12:00 03/25/24 12:00 03/25/24 12:00 03/25/24 12:00 Laboratory Data at Discharge: WBC 8.00 thou/uL (4.3-10.9) 03/25/24 04:38 Hgb 8.3 g/dL (12.0-15.0) L D 03/25/24 04:38 Hct 26.8 % (36.0-45.0) L 03/25/24 04:38 Plt Count 171 thou/uL (152-406) 03/25/24 04:38 PT 10.7 SECONDS (9.4-12.5) 03/22/24 04:00 INR 0.95 03/22/24 04:00 APTT 82.8 SECONDS (24.3-36.9) H 03/25/24 04:50 Sodium 137 mEq/L (136-145) 03/25/24 04:50 Potassium 4.5 mEq/L (3.5-5.1) 03/25/24 04:50 BUN 19 mg/dL (7-18) H 03/25/24 04:50 Creatinine 0.66 mg/dL (0.55-1.02) 03/25/24 04:50 Glucose 95 mg/dL (74-106) 03/25/24 04:50 Phosphorus 1.8 mg/dL (2.5-4.9) L 03/25/24 04:50 Magnesium 2.1 mg/dL (1.6-2.4) 03/25/24 04:50 Total Bilirubin 0.2 mg/dL (0.2-1.0) 03/22/24 04:00 AST 18 U/L (15-37) 03/22/24 04:00 ALT < 14 U/L (13-56) 03/22/24 04:00 Alkaline Phosphatase 90 U/L (45-117) 03/22/24 04:00 Home Medications: Levothyroxine [Synthroid*] 1 tab PO DAILY 08/14/22 Metoprolol Tartrate [Lopressor*] 25 mg PO BID 08/14/22 Albuterol Neb [Proventil 0.083% Neb Soln] 2.5 mg NEB [id number] PRN #120 amp 05/05/23 Gabapentin [Neurontin*] 100 mg PO TID #90 cap 05/05/23 Apixaban [Eliquis] 5 mg PO BID 30 Days #60 tab 03/25/24 Doxycycline Hyclate 100 mg PO BID 10 Days #20 tab 03/25/24 Hydrocodone 5/APAP 325 [[place] 5/325*] 1 tab PO Q6HP PRN tab 03/25/24 Levothyroxine [Synthroid*] 0.1 mg PO DAILYAC tab 03/25/24 Nut.tx.comp. Immune Systm,Reg [Ensure Surgery] 237 ml PO BID can 03/25/24 New Medications: Doxycycline Hyclate 100 mg PO BID 10 Days #20 tab Apixaban [Eliquis] 5 mg PO BID 30 Days #60 tab Physician Discharge Instructions: PROBLEM: left femur fracture GOAL: Clear understanding of disease process INSTRUCTIONS: Diet: AHA Activity: Fall precautions 1. Please call and schedule a follow-up appointment with your PCP in 3-5 days - Please follow-up with your PCP for medication refills/adjustments - Manage Eliquis for left popliteal DVT 2. Please call and schedule a follow-up appointment with Dr. Goodman in 1 week -bilateral lower extremity wounds 3. Please call and schedule a follow-up appointment with Dr. Elise in 1 week -Left hip fracture 4. Continue heart healthy diet 5. activity restrictions, fall precautions 6. Return to the ED if symptoms worsen New medications Doxycycline 100 mg twice daily x 10 days Eliquis 5 mg twice daily-Left popliteal DVT Wound care cleanse with saline, allow to rest 90 secs and pat dry apply aquacel AG to all wounds with drawtex hydrofera blue to left heel apply dry dressing on top of wound secure with kerlix and massimo Every thrid day Diet: AHA Activity: Fall precautions Followup: [facility] [Primary Care Provider] - Kirk Elise MD [ACTIVE - CAN ADMIT] - Rajinder Goodman MD [ACTIVE - CAN ADMIT] -
--- NOTE | 2024-03-25 16:59 | RAD REPORT ---
EXAMINATION: XR PELVIS CLINICAL INDICATION: S/P L HIP IM RODDING TECHNIQUE: AP Pelvis examination was obtained. COMPARISON: 10/21/2023 FINDINGS: Bilateral proximal femoral rods are in place. Moderate osteopenia. No unexpected immediate postoperative finding on the left. Severe osteoarthritis is seen on the right. IMPRESSION: Postoperative bilateral hips as detailed.
[2024-03-25 17:36] VITALS: BP 99/54; TEMP 97.7
--- NOTE | 2024-03-26 21:30 | PN ---
Date of Progress Note: 03/25/2024 Subjective: Seen by bedside, doing clinically well. No cardiac complaints after the surgery. Does not have any chest pain or shortness of breath, went to the surgery . Review of Systems: No chest pain, shortness of breath, orthopnea, cough. No nausea, vomiting, diarrhea. All other syst ems reviewed are negative. Physical Examination: Vital Signs: Reviewed. Head and Neck: Pupils are equal, reactive to light. Intact eye movements. No JVD, no cervical lymp hadenopathy. Neck: Supple. Thyroid not enlarged. Lungs: Clear to auscultation bilaterally. No rhonchi, wheezing, or crackles. No accessory muscle u se. Heart: Irregularly irregular. No extra sounds. Abdomen: Soft, nontender. Bowel sounds positive. No organomegaly. No masses or hernia. No rigidi ty or rebound. Extremities: No edema, clubbing, cyanosis. Intact pulses. Skin: No rash. Neuro: Alert, awake. Oriented x3. No focal deficits appreciated. Lymph Nodes: No cervical lymphadenopathy. Investigations: BUN 19, creatinine 0.66. Troponins are negative and NT-proBNP is 209, and hemoglobi n is 8.3. Assessment/recommendations: 1.Hip fracture, status post surgery. No cardiac complications. Recommend DVT prophylaxis. 2.Chronic obstructive pulmonary disease. The patient is stable. No cardiac issues. Cardiology will sign off and to follow up on outpatient basis as needed. /MODL Voice ID: [id number] Report ID: [id number]
== END 2024-03-25 17:38 | DRG 481 ==
LOC: ER 03:37 → ERHOLD 08:36 → 2ND 14:52
PROVIDERS: ADMIT Internal Medicine; ATTEND Internal Medicine
PROC: 0T9B70Z Drainage of Bladder with Drainage Device, Via Natural or Artificial Opening (ICD-10-PCS; 2024-03-22)
PROC: 0QS736Z Reposition Left Upper Femur with Intramedullary Internal Fixation Device, Percutaneous Approach (ICD-10-PCS; principal; 2024-03-23 08:30)
DX: S72.142A Displaced intertrochanteric fracture of left femur, initial encounter for closed fracture (principal); I82.432 Acute embolism and thrombosis of left popliteal vein; L03.116 Cellulitis of left lower limb; N39.0 Urinary tract infection, site not specified; J44.9 Chronic obstructive pulmonary disease, unspecified; I10 Essential (primary) hypertension; E03.9 Hypothyroidism, unspecified; I87.8 Other specified disorders of veins; I87.2 Venous insufficiency (chronic) (peripheral); I25.2 Old myocardial infarction; Z60.2 Problems related to living alone; Z79.01 Long term (current) use of anticoagulants; Z99.81 Dependence on supplemental oxygen; Z79.52 Long term (current) use of systemic steroids; Z90.49 Acquired absence of other specified parts of digestive tract; Z79.890 Hormone replacement therapy; Z79.899 Other long term (current) drug therapy; Z87.891 Personal history of nicotine dependence; W18.30XA Fall on same level, unspecified, initial encounter; Y93.9 Activity, unspecified; Y92.9 Unspecified place or not applicable; Y99.9 Unspecified external cause status
CPT/HCPCS: 36415; 51702; 71045; 71275; 72170; 80048; 80076; 81001; 83605; 83735; 83880; 84100; 84484; 85025; 85610; 85730; 86850; 86900; 86901; 87040; 87070; 87077; 87086; 87088; 87186; 87205; 93005; 93970; 94640; 97110; 97161; 97530; 99285; J0690; J1100; J1644; J1650; J2250; J2270; J2371; J2405; J2543; J3010; J7030; J7040; J7050; J7120; J7613; Q9967

== ENCOUNTER 2024-07-22 12:45 | Inpatient (IN) | payer OTHER ==
[2024-07-22 13:59] LABS: Absolute Basophils 0.1 K/uL (0-0.5); Absolute Lymphocytes (CBC) 0.7 K/uL (0.7-4.9); Absolute Neutrophil 5.5 K/uL (1.8-8.0); Basophils % 0.9 % (0-1.3); Eosinophils % 0.2 % (0-4.4); Hematocrit 28.3 % (36.0-45.0); Hemoglobin 9.2 g/dL (12.0-15.0); Lymphocytes % 9.1 % (15.3-44.8); MCH 27.8 pg (27.0-35.0); MCHC 32.5 g/dL (32.0-36.0); MCV 85.5 fL (80-100); MPV 7.3 fL (7.6-11.3); Monocytes % 13.3 % (3.3-12.3); Neutrophils % 76.5 % (41.7-73.7); Platelets 300 thou/uL (152-406); RBC Red Blood Cell Count 3.31 M/uL (3.86-4.86); Red Cell Distribution Width 15.1 % (12.1-15.2)
[2024-07-22 14:00] LABS: PT Prothrombin Time 14.7 SECONDS (9.4-12.5); Protime INR 1.4
[2024-07-22 14:11] LABS: AST/SGOT 23 U/L (15-37); Albumin 2.5 g/dL (3.4-5.0); Albumin/Globulin Ratio 0.6 (1.1-1.8); Alkaline Phosphatase 141 U/L (45-117); Anion Gap 8.7 mEq/L (5.0-15.0); BUN Blood Urea Nitrogen 31 mg/dL (7-18); Bicarbonate 29 mEq/L (21-32); Bilirubin Total 0.4 mg/dL (0.2-1.0); Glomerular Filtration Rate 60 ml/min (=/>90); Glucose Level 100 mg/dL (74-106); Magnesium 2.4 mg/dL (1.6-2.4); NT PRO-BNP 839 pg/mL (<450); Potassium 3.7 mEq/L (3.5-5.1); Protein, Total 6.5 g/dL (6.4-8.2); Sodium Level 140 mEq/L (136-145); Troponin High Sensitivity 14.7 pg/mL (<58.9)
[2024-07-22 14:14] LABS: ALT/SGPT < 14 U/L (13-56); Bilirubin Direct < 0.2 mg/dL (0-0.2); Bilirubin Indirect, Calculated 0.2 mg/dL (0.2-0.8)
--- NOTE | 2024-07-22 14:16 | RAD REPORT ---
EXAMINATION: US bilateral LOWER EXTREMITY VENOUS DOPPLER CLINICAL INDICATION: Leg pain TECHNIQUE: Sonographic evaluation of the veins of the lower extremity bilaterally formed.Grayscale, c olor and spectral analysis performed on all vessels COMPARISON: 2023 FINDINGS: The common femoral, superficial femoral, greater saphenous, popliteal and posterior tibial veins bila terally are compressible and demonstrate augmentation. Doppler demonstrates good flow. IMPRESSION: No evidence of deep venous thrombosis involving either lower extremity Left popliteal venous thrombosis described on the prior exam appears resolved
[2024-07-22] MEDS ORDERED: ONDANSETRON 4 MG/2 ML VIAL ONE (14:29)
[2024-07-22] MEDS ORDERED: CEFAZOLIN SODIUM 1 GM/VIAL ONE (14:30)
[2024-07-22] MEDS ORDERED: FENTANYL CITR 100 MCG/2 ML ONE (14:30)
[2024-07-22] MEDS ORDERED: NA CHLORIDE 0.9% 500 ML ONE ×2 (14:30→16:18)
[2024-07-22] MEDS ORDERED: FAMOTIDINE 20 MG/2 ML VIAL IV ONE (14:30)
[2024-07-22] MEDS ORDERED: NA CHLORIDE 0.9% 100 ML ONE (14:31)
--- NOTE | 2024-07-22 14:40 | ER ---
Nurse's Notes [facility] Name: Elena Bruno Age: 74 yrs Sex: Female : 1950 Arrival Date: 07/22/2024 Time: 12:45 Bed 17 Private MD: Diagnosis: Edema, unspecified;Cellulitis and acute lymphangitis of other parts of limb-bilateral extremities;COPD/ Chronic obstructive pulmonary disease, unspecified;Anemia, unspecified Presentation: 07/22 13:00 Chief complaint: EMS states: bilat leg pain. Coronavirus screen: Client denies travel kj2 out of the [place] in the last 14 days. Ebola Screen: No symptoms or risks identified at this time. Initial Sepsis Screen: Does the patient meet any 2 criteria? No. Patient's initial sepsis screen is negative. Does the patient have a suspected source of infection? No. Patient's initial sepsis screen is negative. Risk Assessment: Do you want to hurt yourself or someone else? Patient reports no desire to harm self or others. Onset of symptoms was July 22, 2024. 13:00 Method Of Arrival: EMS: [facility] kj2 13:00 Acuity: FABBY 3 kj2 Triage Assessment: 13:00 General: Appears in no apparent distress. Behavior is calm, cooperative. Pain: kj2 Complains of pain in left leg and right leg Pain currently is 7 out of 10 on a pain scale. Neuro: Level of Consciousness is awake, alert, Oriented to person, place, time, situation. Cardiovascular: Patient's skin is warm and dry. Respiratory: Airway is patent Respiratory effort is unlabored. GI: No signs and/or symptoms were reported involving the gastrointestinal system. : No signs and/or symptoms were reported regarding the genitourinary system. Historical: - Allergies: 14:59 No Known Allergies; kj2 - PMHx: 14:18 Chronic obstructive lung disease; Hypertensive disorder; Hypothyroidism; Myocardial kj2 infarction; - PSHx: 14:18 Appendectomy; Hip surgery; Uterus surgery; kj2 - Immunization history:: Adult Immunizations unknown. - Infectious Disease History:: Denies. - Family history:: not pertinent. - Social history:: Smoking status: unknown. Screenin:15 [facility] ED Fall Risk Assessment (Adult) History of falling in the last 3 months, kj2 including since admission No falls in past 3 months (0 pts) Confusion or Disorientation No (0 pts) Intoxicated or Sedated No (0 pts) Impaired Gait Yes (1 pt) Mobility Assist Device Used Yes (1 pt) Altered Elimination No (0 pt) Score/Fall Risk Level 0 - 2 = Low Risk Maintained a safe environment, Hourly rounding (assess needs \T\ fall precautionary measures) done. Abuse screen: Denies threats or abuse. Denies injuries from another. Nutritional screening: No deficits noted. Tuberculosis screening: No symptoms or risk factors identified. Assessment: 13:00 General: see triage assessment. kj2 14:00 Reassessment: Patient appears in no apparent distress at this time. Patient and/or kj2 family updated on plan of care and expected duration. Pain level reassessed. Patient is alert, oriented x 3, equal unlabored respirations, skin warm/dry/pink. 15:00 Reassessment: Patient appears in no apparent distress at this time. Patient and/or kj2 family updated on plan of care and expected duration. Pain level reassessed. Patient is alert, oriented x 3, equal unlabored respirations, skin warm/dry/pink. 16:07 Reassessment: Patient appears in no apparent distress at this time. Patient and/or kj2 family updated on plan of care and expected duration. Pain level reassessed. Patient is alert, oriented x 3, equal unlabored respirations, skin warm/dry/pink. 17:21 Reassessment: Patient appears in no apparent distress at this time. Patient and/or kj2 family updated on plan of care and expected duration. Pain level reassessed. Patient is alert, oriented x 3, equal unlabored respirations, skin warm/dry/pink. Vital Signs: 13:00 BP 150 / 81; Pulse 101; Resp 20; Pulse Ox 100% on R/A; Weight 48.99 kg; Height 5 ft. 8 kj2 in. ; 14:00 BP 139 / 88; Pulse 96; Resp 20; Pulse Ox 100% on 2 lpm NC; kj2 16:09 BP 119 / 76; Pulse 83; Resp 18; Pulse Ox 100% ; kj2 13:00 Body Mass Index 16.42 (48.99 kg, 172.72 cm) kj2 ED Course: 12:50 Patient arrived in ED. [facility] 12:50 Mc Ibarra MD is Attending Physician. anastasia 13:00 Maintain EMS IV. Dressing intact. Good blood return noted. Site clean \T\ dry. Gauge \T\ kj 2 site: 20guage right hand. Flushed with 10 mL NS. 13:15 Arm band placed on Patient placed in an exam room. kj2 13:15 Patient has correct armband on for positive identification. Bed in low position. Call kj2 light in reach. Provided Education on: call light. 13:39 Initial lab(s) drawn, by me, sent to lab. First set of blood cultures drawn by me. em1 13:44 Basic Metabolic Panel Sent. em1 13:44 CBC with Diff Sent. em1 13:44 LFT's Sent. em1 13:44 Magnesium Sent. em1 13:44 NT PRO-BNP Sent. em1 13:44 PT-INR Sent. em1 13:44 Troponin HS Sent. em1 13:57 EKG done, by ED staff, reviewed by Mc Ibarra MD. am7 14:10 US Extremity Venous W Compression Nick In Process Unspecified. EDMS 14:14 Deana Cazares, RN is Primary Nurse. kj2 14:17 Triage completed. kj2 14:34 XRAY Chest (1 view) In Process Unspecified. EDMS 14:39 Trinity Bazan MD is Hospitalizing Provider. anastasia 18:54 No provider procedures requiring assistance completed. Patient admitted, IV remains in kj2 place. Administered Medications: 14:43 Drug: ceFAZolin IVPB 1 grams IVPB once Route: IVPB; Site: right hand; kj2 16:36 Follow up: Response: No adverse reaction kj2 14:44 Drug: fentaNYL (PF) IVP 25 mcg IVP once Route: IVP; Site: right hand; kj2 16:36 Follow up: Response: No adverse reaction kj2 14:44 Drug: Ondansetron IVP 4 mg IVP once; over 2 minutes Route: IVP; Site: right hand; kj2 16:36 Follow up: Response: No adverse reaction kj2 14:44 Drug: Famotidine IVP 20 mg IVP once; dilute with 10 mL 0.9% NaCl; give over 2 minutes kj2 Route: IVP; Site: right hand; 16:36 Follow up: Response: No adverse reaction kj2 14:48 Drug: NS 0.9% IV 500 ml 500 ml IV at 125 ml/hr once Volume: 500 ml; Route: IV; Rate: kj2 125 ml/hr; Site: right hand; 16:01 Drug: Clindamycin IVPB 900 mg IVPB once over 30 mins; (mix in 50 mL) Route: IVPB; kj2 Infused Over: 30 mins; Site: right hand; 16:35 Follow up: IV Status: Completed infusion; IV Intake: 100ml kj2 16:35 Follow up: Response: No adverse reaction kj2 16:07 Drug: Rgcvvgid-Xfdkicjqqb-Syirdkadl Topical Ointment 1 application Topical once Route: kj2 Topical; Site: affected area; 16:36 Follow up: Response: No adverse reaction kj2 16:13 Drug: NS 0.9% IV 500 ml 500 ml IV at 1 bolus once; to be given as a bolus over 30 kj2 minutes Volume: 500 ml; Route: IV; Rate: 1 bolus; Site: right hand; Medication: 14:20 VIS not applicable for this client. kj2 Intake: 16:35 IV: 100ml; Total: 100ml. kj2 Outcome: 14:40 Decision to Hospitalize by Provider. anastasia 18:54 Admitted to Tele room 416, kj2 18:54 Condition: stable 18:54 Instructed on the need for admit, 18:55 Patient left the ED. kj2 Signatures: Dispatcher [employer] Mc Acuña MD MD cha Martinez, Eric em1 Deana Cazares, RN RN kj2 Mckenzie Vinson am7
--- NOTE | 2024-07-22 14:40 | EDPHYS ---
Physician Documentation [facility] Name: Elena Bruno Age: 74 yrs Sex: Female : 1950 Arrival Date: 07/22/2024 Time: 12:45 Bed 17 Private MD: ED Physician Mc Ibarra HPI: 07/22 13:15 This 74 yrs old Female presents to ER via Unassigned with complaints of anastasia bilateral leg pain redness and swelling. 13:15 The patient presents with pain, swelling, tenderness. The complaints affect the right anastasia leg and left leg. Context: The problem was sustained at home, resulted from an unknown cause. Modifying factors: The symptoms are alleviated by nothing. elevating leg, the symptoms are aggravated by movement, weight bearing. Associated signs and symptoms: The patient has no apparent associated signs or symptoms. Severity of symptoms: At their worst the symptoms were moderate, in the emergency department the symptoms are unchanged. Historical: - Allergies: 14:59 No Known Allergies; kj2 - PMHx: 14:18 Chronic obstructive lung disease; Hypertensive disorder; Hypothyroidism; Myocardial kj2 infarction; - PSHx: 14:18 Appendectomy; Hip surgery; Uterus surgery; kj2 - Immunization history:: Adult Immunizations unknown. - Infectious Disease History:: Denies. - Family history:: not pertinent. - Social history:: Smoking status: unknown. ROS: 13:15 Constitutional: Negative for fever, chills, and weight loss, Eyes: Negative for injury, anastasia pain, redness, and discharge, ENT: Negative for injury, pain, and discharge, Neck: Negative for injury, pain, and swelling, Cardiovascular: Negative for chest pain, palpitations, and edema, Respiratory: Negative for shortness of breath, cough, wheezing, and pleuritic chest pain, Abdomen/GI: Negative for abdominal pain, nausea, vomiting, diarrhea, and constipation, Back: Negative for injury and pain, : Negative for injury, bleeding, discharge, and swelling, Skin: Negative for injury, rash, and discoloration, Neuro: Negative for headache, weakness, numbness, tingling, and seizure, Psych: Negative for depression, anxiety, suicide ideation, homicidal ideation, and hallucinations, Allergy/Immunology: Negative for hives, rash, and allergies, Endocrine: Negative for neck swelling, polydipsia, polyuria, polyphagia, and marked weight changes, Hematologic/Lymphatic: Negative for swollen nodes, abnormal bleeding, and unusual bruising, 13:15 MS/extremity: Positive for decreased range of motion, pain, swelling, tenderness, warmth, of the right leg and left leg, Exam: 13:15 Constitutional: This is a well developed, well nourished patient who is awake, alert, anastasia and in no acute distress. Head/Face: Normocephalic, atraumatic. Eyes: Pupils equal round and reactive to light, extra-ocular motions intact. Lids and lashes normal. Conjunctiva and sclera are non-icteric and not injected. Cornea within normal limits. Periorbital areas with no swelling, redness, or edema. ENT: Nares patent. No nasal discharge, no septal abnormalities noted. Tympanic membranes are normal and external auditory canals are clear. Oropharynx with no redness, swelling, or masses, exudates, or evidence of obstruction, uvula midline. Mucous membranes moist. Neck: Trachea midline, no thyromegaly or masses palpated, and no cervical lymphadenopathy. Supple, full range of motion without nuchal rigidity, or vertebral point tenderness. No Meningismus. Chest/axilla: Normal chest wall appearance and motion. Nontender with no deformity. No lesions are appreciated. Cardiovascular: Regular rate and rhythm with a normal S1 and S2. No gallops, murmurs, or rubs. Normal PMI, no JVD. No pulse deficits. Respiratory: Lungs have equal breath sounds bilaterally, clear to auscultation and percussion. No rales, rhonchi or wheezes noted. No increased work of breathing, no retractions or nasal flaring. Abdomen/GI: Soft, non-tender, with normal bowel sounds. No distension or tympany. No guarding or rebound. No evidence of tenderness throughout. Back: No spinal tenderness. No costovertebral tenderness. Full range of motion. Skin: Warm, dry with normal turgor. Normal color with no rashes, no lesions, and no evidence of cellulitis. Neuro: Awake and alert, GCS 15, oriented to person, place, time, and situation. Cranial nerves II-XII grossly intact. Motor strength 5/5 in all extremities. Sensory grossly intact. Cerebellar exam normal. Normal gait. Psych: Awake, alert, with orientation to person, place and time. Behavior, mood, and affect are within normal limits. 13:15 Musculoskeletal/extremity: ROM: intact in all extremities, full active range of motion, full passive range of motion, limited active range of motion, in the right leg and left leg, Circulation is intact in all extremities. Sensation intact. Compartment Syndrome exam of affected extremity: is normal. Weight bearing: able to fully bear weight, DVT Exam: negative Homans' sign noted on exam, no appreciated bluish discoloration, pain, swelling, tenderness, erythema, increased warmth, that is mild, of the right leg and left leg, 14:04 ECG was reviewed by the Attending Physician. [facility] Vital Signs: 13:00 BP 150 / 81; Pulse 101; Resp 20; Pulse Ox 100% on R/A; Weight 48.99 kg; Height 5 ft. 8 kj2 in. ; 14:00 BP 139 / 88; Pulse 96; Resp 20; Pulse Ox 100% on 2 lpm NC; kj2 16:09 BP 119 / 76; Pulse 83; Resp 18; Pulse Ox 100% ; kj2 13:00 Body Mass Index 16.42 (48.99 kg, 172.72 cm) kj2 MDM: 12:50 Medical Screening Exam initiated anastasia 13:18 Differential diagnosis: contusion, abrasion, tendonitis. Data reviewed: vital signs, [facility] nurses notes, lab test result(s), EKG, radiologic studies. Consideration of Admission/Observation Patient was admitted/placed on observation. Escalation of care including admission/observation considered. I considered the following discharge prescriptions or medication management in the emergency department Medications were administered in the Emergency Department. See 13:12 Order name: Basic Metabolic Panel; Complete Time: 14:29 [facility] 07/22 13:12 Order name: CBC with Diff; Complete Time: 14:29 [facility] 07/22 13:12 Order name: LFT's; Complete Time: 14:29 [facility] 07/22 13:12 Order name: Magnesium; Complete Time: 14:29 [facility] 07/22 13:12 Order name: NT PRO-BNP; Complete Time: 14:29 [facility] 07/22 13:12 Order name: PT-INR; Complete Time: 14:29 [facility] 07/22 13:12 Order name: Troponin HS; Complete Time: 14:29 [facility] 07/22 13:12 Order name: Blood Culture Adult (2) 07/22 13:12 Order name: Urinalysis w/ reflexes [facility] 07/22 15:18 Order name: CBC with Automated Diff [facility] 07/22 15:18 Order name: CBC with Automated Diff [facility] 07/22 15:18 Order name: Comprehensive Metabolic Panel [facility] 07/22 15:18 Order name: Comprehensive Metabolic Panel [facility] 07/22 15:18 Order name: Troponin High Sensitivity [facility] 07/22 15:19 Order name: Troponin High Sensitivity [facility] 07/22 15:19 Order name: Troponin High Sensitivity [facility] 07/22 15:19 Order name: Troponin High Sensitivity [facility] 07/22 13:12 Order name: XRAY Chest (1 view) [facility] 07/22 13:12 Order name: US Extremity Venous W Compression Nick; Complete Time: 14:29 [facility] 07/22 13:12 Order name: Cardiac monitoring; Complete Time: 14:57 [facility] 07/22 13:12 Order name: EKG - Nurse/Tech; Complete Time: 13:57 [facility] 07/22 13:12 Order name: IV Saline Lock; Complete Time: 14:57 [facility] 07/22 13:12 Order name: Labs collected and sent; Complete Time: 14:57 [facility] 07/22 13:12 Order name: O2 Per Protocol; Complete Time: 14:58 [facility] 07/22 13:12 Order name: O2 Sat Monitoring; Complete Time: 14:58 [facility] EC:04 Rate is 85 beats/min. Rhythm is regular. QRS Lawn is Normal. [place] interval is normal. QRS anastasia interval is normal. QT interval is normal. No Q waves. T waves are Normal. No ST changes noted. Clinical impression: Normal ECG and No evidence of ischemia. Interpreted by me. Reviewed by me. Administered Medications: 14:43 Drug: ceFAZolin IVPB 1 grams IVPB once Route: IVPB; Site: right hand; kj2 16:36 Follow up: Response: No adverse reaction kj2 14:44 Drug: fentaNYL (PF) IVP 25 mcg IVP once Route: IVP; Site: right hand; kj2 16:36 Follow up: Response: No adverse reaction kj2 14:44 Drug: Ondansetron IVP 4 mg IVP once; over 2 minutes Route: IVP; Site: right hand; kj2 16:36 Follow up: Response: No adverse reaction kj2 14:44 Drug: Famotidine IVP 20 mg IVP once; dilute with 10 mL 0.9% NaCl; give over 2 minutes kj2 Route: IVP; Site: right hand; 16:36 Follow up: Response: No adverse reaction kj2 14:48 Drug: NS 0.9% IV 500 ml 500 ml IV at 125 ml/hr once Volume: 500 ml; Route: IV; Rate: kj2 125 ml/hr; Site: right hand; 16:01 Drug: Clindamycin IVPB 900 mg IVPB once over 30 mins; (mix in 50 mL) Route: IVPB; kj2 Infused Over: 30 mins; Site: right hand; 16:35 Follow up: IV Status: Completed infusion; IV Intake: 100ml kj2 16:35 Follow up: Response: No adverse reaction kj2 16:07 Drug: Pzvaggib-Mviovxdxqv-Umepcijaj Topical Ointment 1 application Topical once Route: kj2 Topical; Site: affected area; 16:36 Follow up: Response: No adverse reaction kj2 16:13 Drug: NS 0.9% IV 500 ml 500 ml IV at 1 bolus once; to be given as a bolus over 30 kj2 minutes Volume: 500 ml; Route: IV; Rate: 1 bolus; Site: right hand; Disposition Summary: 07/22/24 14:40 Hospitalization Ordered Notes: Hospitalization Status: Inpatient Admission anastasia Provider: Trinity Bazan cha [facility] anastasia Condition: Stable anastasia Problem: new anastasia Symptoms: are unchanged anastasia Bed/Room Type: Standard [facility] Room Assignment: 416(07/22/24 16:16) eb Diagnosis - Edema, unspecified anastasia - Cellulitis and acute lymphangitis of other parts of limb - bilateral extremities anastasia - COPD/ Chronic obstructive pulmonary disease, unspecified anastasia - Anemia, unspecified anastasia Forms: - Medication Reconciliation Form anastasia - SBAR form anastasia - Leadership Thank You Letter anastasia Signatures: Dispatcher [employer] Mc Acuña MD MD cha Botello, Elizabeth eb Jordan, Krystal, RN RN kj2 Corrections: (The following items were deleted from the chart) 13:13 13:13 BASIC METABOLIC PANEL+C.LAB.BRZ ordered. EDMS EDMS 13:13 13:13 CBC+H.LAB.BRZ ordered. EDMS EDMS 13:13 13:13 HEPATIC FUNCTION+C.LAB.BRZ ordered. EDMS EDMS 13:13 13:13 MAGNESIUM+C.LAB.BRZ ordered. EDMS EDMS 13:13 13:13 PROBNP+C.LAB.BRZ ordered. EDMS EDMS 13:13 13:13 PROTIME (+INR)+COAG.LAB.BRZ ordered. EDMS EDMS 13:13 13:13 Troponin High Sensitivity+C.LAB.BRZ ordered. EDMS EDMS 13:13 13:13 BLOOD CULTURE*+BA.LAB.BRZ ordered. EDMS EDMS 13:13 13:13 Urinalysis+U.LAB.BRZ ordered. EDMS EDMS 13:13 13:13 Chest Single View+RAD.RAD.BRZ ordered. EDMS EDMS 13:13 13:13 Extrem Venous W Compression Nick+US.RAD.BRZ ordered. EDMS EDMS 16:16 14:40 anastasia eb
--- NOTE | 2024-07-22 14:45 | RAD REPORT ---
Procedure: Chest Single View HISTORY: Cough COMPARISON: 2023 FINDINGS: The lungs appear clear of acute infiltrate. Mild to moderate chronic appearing interstitial lung opac ities. Moderate hiatal hernia. No significant pleural effusion noted. The heart is mildly enlarged.. IMPRESSION: No acute abnormality is displayed.
[2024-07-22] MEDS ORDERED: ONDANSETRON 4 MG/2 ML VIAL IV PRN (15:13)
[2024-07-22] MEDS: NA CHLORIDE 0.9% 1,000 ML IV SCH (16:00)
[2024-07-22] MEDS: VANCOMYCIN 1 GM in NA CHLORIDE 0.9% 250 ML IVPB SCH (16:00)
[2024-07-22] MEDS ORDERED: BACI/NEOMYCIN/POLY OINT 15GM TOP ONE (16:00)
[2024-07-22] MEDS ORDERED: CLINDAMYCIN 900MG/D5W 900 MG/50 ML IVPB IV ONE (16:00)
[2024-07-22] MEDS: VANCOMYCIN 1 GM in NA CHLORIDE 0.9% 250 ML IVPB ONE (16:00)
[2024-07-22] MEDS ORDERED: VANCOMYCIN 1 GM/VIAL ONE (16:43)
[2024-07-22] MEDS ORDERED: NA CHLORIDE 0.9% 250 ML ONE (16:43)
[2024-07-22] MEDS ORDERED: NA CHLORIDE 0.9% 1,000 ML ONE (16:44)
[2024-07-22 17:24] LABS: Specific Gravity 1.025 (1.005-1.030); Sqamous Epithelial <5 /HPF (None Seen); Urine Bacteria None Seen /HPF (<20); Urine Bilirubin NEGATIVE (Negative); Urine Blood Negative (Negative); Urine Clarity Clear (Clear); Urine Color Yellow (Yellow); Urine Culture Reflex Order NOT NEEDED; Urine Glucose NEGATIVE (Negative); Urine Ketones NEGATIVE (Negative); Urine Microscopic Reflex YN ORDER UMIC; Urine Mucus Slight /HPF (None Seen); Urine Nitrite NEGATIVE (Negative); Urine Protein TRACE (Negative); Urine RBC <5 /HPF (None Seen); Urine Urobilinogen Normal (Normal); Urine WBC <5 /HPF (<5)
[2024-07-22] MEDS: METHYLPREDNISOLONE 125 MG INJ IV SCH (18:00)
[2024-07-22] MEDS: ALBUTEROL 2.5 MG/3 ML NEB SOL NEB SCH (19:00)
[2024-07-22] MEDS: IPRATROPIUM BROM 0.5MG/2.5ML NEB SCH (19:00)
[2024-07-22] MEDS: GABAPENTIN 100 MG CAP PO SCH (20:53)
[2024-07-22] MEDS: METOPROLOL TAR 25 MG TAB PO SCH (20:53)
[2024-07-22] MEDS: APIXABAN 5 MG TABLET PO SCH (20:54)
[2024-07-22] MEDS: MORPHINE 2 MG/ML SYR IV PRN (22:01)
[2024-07-23 06:11] LABS: Absolute Lymphocytes (CBC) 0.2 K/uL (0.7-4.9); Absolute Monocytes 0.1 K/uL (0.1-1.3); Absolute Neutrophil 5.3 K/uL (1.8-8.0); Basophils % 0.9 % (0-1.3); Eosinophils % 0.3 % (0-4.4); Hematocrit 27.7 % (36.0-45.0); Hemoglobin 9.2 g/dL (12.0-15.0); Lymphocytes % 4.3 % (15.3-44.8); MCH 28.5 pg (27.0-35.0); MCHC 33.2 g/dL (32.0-36.0); MCV 85.8 fL (80-100); MPV 7.5 fL (7.6-11.3); Monocytes % 1.7 % (3.3-12.3); Neutrophils % 92.8 % (41.7-73.7); Platelets 323 thou/uL (152-406); RBC Red Blood Cell Count 3.23 M/uL (3.86-4.86)
[2024-07-23 06:33] LABS: AST/SGOT 23 U/L (15-37); Albumin 2.3 g/dL (3.4-5.0); Albumin/Globulin Ratio 0.6 (1.1-1.8); Alkaline Phosphatase 132 U/L (45-117); Anion Gap 7.6 mEq/L (5.0-15.0); BUN Blood Urea Nitrogen 23 mg/dL (7-18); Bicarbonate 29 mEq/L (21-32); Bilirubin Total 0.3 mg/dL (0.2-1.0); Globulin 3.6 g/dL (2.3-3.5); Glomerular Filtration Rate 75 ml/min (=/>90); Glucose Level 103 mg/dL (74-106); Potassium 3.6 mEq/L (3.5-5.1); Protein, Total 5.9 g/dL (6.4-8.2); Sodium Level 142 mEq/L (136-145); Troponin High Sensitivity 13.6 pg/mL (<58.9)
[2024-07-23] MEDS: LEVOTHYROXINE SOD 0.1 MG TAB PO SCH (06:36)
[2024-07-23 06:39] LABS: ALT/SGPT < 14 U/L (13-56)
[2024-07-23 08:47] LABS: Blood Morphology Comment NOT SEEN (NOT SEEN); Platelet Estimate ADEQ; Platelets Clumped FEW; White Blood Cell Scan OK (OK)
[2024-07-23] MEDS: CEFTRIAXONE 1,000 MG in NA CHLORIDE 0.9% 50 ML IVPB SCH (08:50)
--- NOTE | 2024-07-23 09:20 | P.HP ---
Certification for Inpatient Patient admitted to: Observation With expected LOS: <2 Midnights Patient will require the following post-hospital care: None Practitioner: I am a practitioner with admitting privileges, knowledge of patient current condition, hospital course, and medical plan of care. Services: Services provided to patient in accordance with Admission requirements found in Title 42 Section 412.3 of the Code of Federal Regulations Patient History Date of Service: 07/22/24 Reason for admission: Cellulitis of the lower extremities History of Present Illness: Patient is 74-year-old female came to the hospital cellulitis of lower extremities. Patient with significant erythema of the lower extremities. Patient came to the emergency room for further evaluation. In the ER patient had mild erythema on the left leg. She was given IV antibiotics. Patient will continue with current antibiotic regimen. Will go ahead and admit to the hosp ital for observation. Allergies No Known Allergies Allergy (Verified 08/14/22 15:30) Home Medications: Metoprolol Tartrate [Lopressor*] 25 mg PO BID 08/14/22 Albuterol Neb [Proventil 0.083% Neb Soln] 2.5 mg NEB [id number] PRN #120 amp 05/05/23 Gabapentin [Neurontin*] 100 mg PO TID #90 cap 05/05/23 Apixaban [Eliquis] 5 mg PO BID 30 Days #60 tab 03/25/24 Hydrocodone 5/APAP 325 [Penitas 5/325*] 1 tab PO Q6HP PRN tab 03/25/24 Levothyroxine [Synthroid*] 0.1 mg PO DAILYAC tab 03/25/24 Buspirone HCl [Buspar] 5 mg PO TID 07/22/24 - Past Medical/Surgical History Has patient received pneumonia vaccine in the past: No Diabetic: No -: COPDon home O2 -: Tobacco use -: Attention -: Chronic venous stasis dermatitis -: Broken heart syndrome -: -: Appendectomy Psychosocial/ Personal History: Patient is at home, alone - Family History Mother Medical History: Hypertension, Lung disease - Social History Smoking Status: Former smoker Alcohol use: No CD- Drugs: No Caffeine use: No Place of Residence: Home Review of Systems 10-point ROS is otherwise unremarkable Physical Examination - Vital Signs Temperature: 98.2 F Blood Pressure: 121/70 Pulse: 76 Respirations: 16 Pulse Ox (%): 98 - Physical Exam General: Alert, In no apparent distress, Oriented x3 HEENT: Atraumatic, PERRLA, Mucous membr. moist/pink, EOMI, Sclerae nonicteric Neck: Supple, 2+ carotid pulse no bruit, No LAD, Without JVD or thyroid abnormality Respiratory: Clear to auscultation bilaterally, Normal air movement Cardiovascular: Regular rate/rhythm, Normal S1 S2 Gastrointestinal: Normal bowel sounds, Soft and benign, Non-distended, No tenderness Musculoskeletal: No tenderness, Erythema Integumentary: Erythema Neurological: Normal speech, Normal tone, Sensation intact, Cranial nerves 3-12 intact, Abnormal gait, Abnormal strength Lymphatics: No axilla or inguinal lymphadenopathy - Studies Laboratory Data (last 24 hrs) 07/22/24 07/22/24 07/22/24 13:39 13:39 13:39 WBC 7.20 Hgb 9.2 L Hct 28.3 L Plt Count 300 PT 14.7 H INR 1.40 Sodium 140 Potassium 3.7 BUN 31 H Creatinine 0.98 Glucose 100 Magnesium 2.4 Total Bilirubin 0.4 AST 23 ALT < 14 Alkaline Phosphatase 141 H Assessment & Plan - Problems (Diagnosis) (1) Cellulitis of left lower extremity Current Visit: Yes Status: Acute (2) Arterial leg ulcer Current Visit: No Status: Acute (3) Generalized atherosclerosis Current Visit: No Status: Acute (4) Protein calorie malnutrition Current Visit: No Status: Acute Qualifiers: (5) COPD (chronic obstructive pulmonary disease) Current Visit: No Status: Chronic Qualifiers: - Plan PLAN: 1. Cellulitis of the left lower extremity; continue with antibiotic therapy. Patient cellulitis is mild. Will continue with antibiotic regimen and will get patient out of bed and ambulate. Will reassess in AM. Patient will be admitted for observation 2. History of PAD; antiplatelet and statin therapy; recent arteriogram with mild to moderate stenosis 3. History of hypertension; resume antihypertensives 4. History of COPD; continue with inhaler therapy as needed O2 per protocol 5. GI DVT prophylaxis Discharge Plan: Home Plan to discharge in: 24 Hours - Advance Directives Does patient have a Living Will: No Does patient have a Durable POA for Healthcare: No - Code Status/Comfort Care Code Status Assessed: Yes Code Status: Full Code Critical Care: No Time Spent Managing PTS Care (In Minutes): 45
[2024-07-23] MEDS: CYCLOBENZAPRINE 10 MG TAB PO ONE (23:07)
--- NOTE | 2024-07-23 23:58 | P.PN ---
Date of Service: 07/23/24 Subjective Patient is cellulitis has improved. Pain is better controlled. However she still having some discomfort. She has decided that she wants to try to go to inpatient rehab so she can build her strength up as she normally does most of her ADLs on her own. Also encouraged increased nutritional support. Physical Examination - Vital Signs Reviewed - Physical Exam General: Alert, In no apparent distress, Oriented x3 Respiratory: Clear to auscultation bilaterally, Normal air movement Cardiovascular: Regular rate/rhythm, Normal S1 S2 Gastrointestinal: Normal bowel sounds, Soft and benign, Non-distended, No tenderness Musculoskeletal: No tenderness, Erythema Integumentary: Erythema Neurological: Normal speech, Normal tone, Sensation intact, Cranial nerves 3-12 intact, Abnormal gait, Abnormal strength Assessment & Plan - Problems (Diagnosis) (1) Cellulitis of left lower extremity Current Visit: Yes Status: Acute (2) Arterial leg ulcer Current Visit: No Status: Acute (3) Generalized atherosclerosis Current Visit: No Status: Acute (4) Protein calorie malnutrition Current Visit: No Status: Acute (5) COPD (chronic obstructive pulmonary disease) Current Visit: No Status: Chronic - Plan Continue with plan of care as mentioned below: 1. Cellulitis of the left lower extremity; continue with antibiotic therapy. Patient cellulitis is mild. Will continue with antibiotic regimen and will get patient out of bed and ambulate. Will reassess in AM. Patient will continue with antibiotics but is still feeling weak. Will get physical therapy evaluation and try to get placed at inpatient rehab. 2. History of PAD; antiplatelet and statin therapy; recent arteriogram with mild to moderate stenosis 3. History of hypertension; resume antihypertensives 4. History of COPD; continue with inhaler therapy as needed O2 per protocol 5. GI DVT prophylaxis Discharge Plan: Home Plan to discharge in: 24 Hours - Advance Directives Does patient have a Living Will: No Does patient have a Durable POA for Healthcare: No - Code Status/Comfort Care Code Status Assessed: Yes Code Status: Full Code Critical Care: No Time Spent Managing PTS Care (In Minutes): 45
[2024-07-24 06:23] LABS: Hematocrit 25.6 % (36.0-45.0); Hemoglobin 8.2 g/dL (12.0-15.0); MCH 27.5 pg (27.0-35.0); MCHC 32.1 g/dL (32.0-36.0); MCV 85.4 fL (80-100); MPV 8.1 fL (7.6-11.3); Platelets 311 thou/uL (152-406); Red Cell Distribution Width 15.2 % (12.1-15.2)
[2024-07-24 06:41] LABS: Anion Gap 6.9 mEq/L (5.0-15.0); Magnesium 2.5 mg/dL (1.6-2.4); Potassium 3.9 mEq/L (3.5-5.1); Troponin High Sensitivity 17.2 pg/mL (<58.9)
[2024-07-24] MEDS: predniSONE 20 MG TAB PO SCH (09:10)
--- NOTE | 2024-07-24 13:33 | P.PN ---
Date of Service: 07/24/24 Subjective: feels erythema has improved this morning. Covering less area and less red. she reports significant bilateral leg pain Pain is similar to what she has deal with in the past but much more severe in the last 1-2 days. afebrile ROS: 10 point ROS as noted above, otherwise negative Physical Exam: GEN: Alert, oriented, NAD CV: Regular rate and rhythm, no edema Pulm: Nonlabored respirations on 2L NC, clear bilaterally ABD: soft, nontender, nondistended Integumentary: erythema, swelling of lower extremities improving. Dry, Flaky skin bilaterally. Neuro: Normal speech, normal affect Problem List: Lower left extremity cellulitis Chronic venous stasis dermatitis / Hx of PVD Protein calorie malnutrition Chronic COPD Hypertension hx Left hip fractures s/p left IM rodding Hx of left popliteal thrombus (Mar 2024) Lower left extremity cellulitis Chronic venous stasis dermatitis / Hx of PVD Hx of left popliteal thrombus (Mar 2024) on admission, presents with mild erythema, swelling to lower extremities up to the knees. +dry flaky skin to bilateral lower extremities Patient has history of chronic venous stasis dermatitis and PVD. venous u/s (07/22): no DVT. prior Left popliteal venous thrombosis appears resolved. continue eliquis 5 mg BID continue empiric rocephin / vanc to cover cellulitis (07/22-) IV steroids deescalated to PO prednisone 07/23 pain control duonebs erythema, swelling improving. Covering less area and less red. give lasix x1 today. re-eval tomorrow. IVF dc'd (07/23) Protein calorie malnutrition minimal appetite per family. Encourage supplemental nutrition as needed. Chronic COPD Hypertension confirm home meds, restart as appropraite hx Left hip fractures s/p left IM rodding PT eval VTE: home eliquis Code: Full Dispo: Home Time Spent Managing Pts Care (In Minutes): 55
[2024-07-24] MEDS: BUSPIRONE HCL 5 MG TABLET PO SCH (14:00)
[2024-07-24] MEDS: FUROSEMIDE 20 MG/ 2ML VIAL IV ONE (14:18)
[2024-07-24 17:41] VITALS: BMI 16.4
[2024-07-24] MEDS: IPRATROPIUM BROM 0.5MG/2.5ML ONE (21:02)
[2024-07-24] MEDS: ALBUTEROL 2.5 MG/3 ML NEB SOL ONE (21:02)
[2024-07-25] MEDS: ALBUTEROL 2.5 MG/3 ML NEB SOL ONE ×2 (01:55→21:13)
[2024-07-25] MEDS: IPRATROPIUM BROM 0.5MG/2.5ML ONE ×2 (01:55→21:13)
[2024-07-25] MEDS: ACETAMINOPHEN 500 MG TAB PO PRN (05:13)
[2024-07-25 06:38] LABS: Hematocrit 28.2 % (36.0-45.0); Hemoglobin 9.1 g/dL (12.0-15.0); MCH 28.1 pg (27.0-35.0); MCHC 32.3 g/dL (32.0-36.0); MCV 86.9 fL (80-100); MPV 7.5 fL (7.6-11.3); Platelets 378 thou/uL (152-406); RBC Red Blood Cell Count 3.24 M/uL (3.86-4.86); Red Cell Distribution Width 15.4 % (12.1-15.2)
[2024-07-25 06:57] LABS: Anion Gap 6.9 mEq/L (5.0-15.0); Magnesium 2.5 mg/dL (1.6-2.4); Potassium 3.9 mEq/L (3.5-5.1); Troponin High Sensitivity 50.4 pg/mL (<58.9)
--- NOTE | 2024-07-25 12:54 | P.PN ---
Date of Service: 07/25/24 Subjective: reports bilateral hip pain, worse on left thought it was just from laying in bed / not feeling well, but not getting better h/o hip surgery still with some swelling, but lasix helped, happy with the low dose lower leg pain/tenderness improved with swelling going down hip pain remains unchanged ROS: 10 point ROS as noted above, otherwise negative Physical Exam: GEN: Alert, oriented, NAD CV: Regular rate and rhythm, no edema Pulm: Nonlabored respirations on 2L NC, clear bilaterally Integumentary: erythema, swelling of lower extremities improving. Dry, Flaky skin bilaterally. Neuro: Normal speech, normal affect Problem List: Lower left extremity cellulitis Chronic venous stasis dermatitis / Hx of PVD Protein calorie malnutrition Chronic COPD Hypertension hip pain: L>R hx Left hip fractures s/p left IM rodding Hx of left popliteal thrombus (Mar 2024) Lower left extremity cellulitis Chronic venous stasis dermatitis / Hx of PVD Hx of left popliteal thrombus (Mar 2024) on admission, presents with mild erythema, swelling to lower extremities up to the knees. +dry flaky skin to bilateral lower extremities Patient has history of chronic venous stasis dermatitis and PVD. venous u/s (07/22): no DVT. prior Left popliteal venous thrombosis appears resolved. continue eliquis 5 mg BID continue empiric rocephin / vanc to cover cellulitis (07/22-) IV steroids deescalated to PO prednisone 07/23 pain control duonebs erythema, swelling improving. Covering less area and less red. give lasix x1 07/24 and again 07/25 - will monitor/review daily IVF dc'd (07/23) Protein calorie malnutrition minimal appetite per family. Encourage supplemental nutrition as needed. Chronic COPD Hypertension confirm home meds, restart as appropriate hip pain: L>R hx Left hip fractures s/p left IM rodding reports bilateral hip pain, L>R will check x-rays VTE: home eliquis Code: Full Dispo: IPR possibly Time Spent Managing Pts Care (In Minutes): 55
[2024-07-25] MEDS: ENSURE CLEAR 200 ML CAN PO SCH (13:49)
[2024-07-25] MEDS: FUROSEMIDE 20 MG/ 2ML VIAL IV ONE (14:37)
[2024-07-25] MEDS: NA CHLORIDE 0.9% 0 ML ONE (15:46)
--- NOTE | 2024-07-25 16:56 | RAD REPORT ---
Exam:Hip Bilateral With Pelvis CLINICAL HISTORY: Pelvic pain FINDINGS: Compression screw left hip fracture collapse has developed. Angulation at the fracture site is almost 90 degrees. Compression screw extends superior to the femor al neck. It lies 13 mm past the cortex. Compression screw and intramedullary loyda affixing old right femoral fracture. Marked right hip joint space narrowing with subchondral sclerosis and subchondral cysts are present. 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 Osteoporosis.
[2024-07-26] MEDS: ALBUTEROL 2.5 MG/3 ML NEB SOL ONE (00:21)
[2024-07-26] MEDS: IPRATROPIUM BROM 0.5MG/2.5ML ONE (00:21)
--- NOTE | 2024-07-26 18:45 | P.PN ---
Subjective Date of Service: 07/26/24 Chief Complaint: Cellulitis of the lower extremities Patient reports pain in the left hip and difficulty walking. Physical Examination - Vital Signs Temperature: 98 F Blood Pressure: 128/82 Pulse: 77 Respirations: 16 Pulse Ox (%): 97 Assessment And Plan - Plan Physical Exam: GEN: Alert, oriented, NAD CV: Regular rate and rhythm, no edema Pulm: Nonlabored respirations on 2L NC, clear bilaterally Integumentary: erythema, swelling of lower extremities improving. Dry, Flaky skin bilaterally. Neuro: Normal speech, normal affect Problem List: Lower left extremity cellulitis Chronic venous stasis dermatitis / Hx of PVD Protein calorie malnutrition Chronic COPD Hypertension hip pain: L>R hx Left hip fractures s/p left IM rodding Hx of left popliteal thrombus (Mar 2024) Lower left extremity cellulitis Chronic venous stasis dermatitis / Hx of PVD Hx of left popliteal thrombus (Mar 2024) on admission, presents with mild erythema, swelling to lower extremities up to the knees. +dry flaky skin to bilateral lower extremities Patient has history of chronic venous stasis dermatitis and PVD. venous u/s (07/22): no DVT. prior Left popliteal venous thrombosis appears resol emile. continue eliquis 5 mg BID continue empiric rocephin / vanc to cover cellulitis (07/22-) IV steroids deescalated to PO prednisone 07/23 pain control duonebs erythema, swelling improving. Covering less area and less red. give lasix x1 07/24 and again 07/25 - will monitor/review daily IVF dc'd (07/23) Protein calorie malnutrition minimal appetite per family. Encourage supplemental nutrition as needed. Chronic COPD Hypertension confirm home meds, restart as appropriate hip pain: L>R hx Left hip fractures s/p left IM rodding reports bilateral hip pain, L>R 07/26 Bilateral lower extremity erythema resolved. Bilateral lower extremity swelling improved. Continue IV Rocephin and vancomycin Transition to oral antibiotics on discharge Analgesics as needed. Awaiting orthopedic input regarding left hip loyda and screws positioning. VTE: home eliquis Code: Full Dispo: IPR possibly
[2024-07-27] MEDS: TRAMADOL HCL 50 MG TAB PO ONE (00:18)
[2024-07-27 06:09] LABS: Absolute Eosinophils 0.1 K/uL (0-0.5); Absolute Lymphocytes (CBC) 0.9 K/uL (0.7-4.9); Absolute Monocytes 0.9 K/uL (0.1-1.3); Absolute Neutrophil 4.7 K/uL (1.8-8.0); Basophils % 0.3 % (0-1.3); Hematocrit 28.5 % (36.0-45.0); Hemoglobin 9.2 g/dL (12.0-15.0); MCH 27.6 pg (27.0-35.0); MCHC 32.3 g/dL (32.0-36.0); MCV 85.4 fL (80-100); MPV 7.2 fL (7.6-11.3); Monocytes % 13.6 % (3.3-12.3); Neutrophils % 70.1 % (41.7-73.7); Platelets 387 thou/uL (152-406); RBC Red Blood Cell Count 3.34 M/uL (3.86-4.86); Red Cell Distribution Width 15.4 % (12.1-15.2)
[2024-07-27 06:21] LABS: Anion Gap 4.7 mEq/L (5.0-15.0); Potassium 3.7 mEq/L (3.5-5.1)
--- NOTE | 2024-07-27 13:57 | P.PN ---
Subjective Date of Service: 07/27/24 Chief Complaint: Cellulitis of the lower extremities Patient has no complaint except pain in the left hip with movement. She is maintained on 2 to 3 L of oxygen by nasal cannula which is her baseline. Physical Examination - Vital Signs Temperature: 97.7 F Blood Pressure: 129/83 Pulse: 74 Respirations: 18 Pulse Ox (%): 98 - Studies Microbiology Data (last 24 hrs): 07/22/24 13:39 Blood - Blood Aerobic Blood Culture - Final No growth in 5 days. 07/22/24 13:39 Blood - Blood Anaerobic Blood Culture - Final No growth in 5 days. Assessment And Plan - Plan Physical Exam: GEN: Alert, oriented, NAD CV: Regular rate and rhythm, 1+ bilateral lower extremity pitting edema. Pulm: Nonlabored respirations on 2L NC, clear bilaterally Integumentary: erythema of lower extremities resolved. Dry, Flaky skin bilaterally. Neuro: Normal speech, normal affect. Musculoskeletal: Pain with ROM about the left hip. Problem List: Lower left extremity cellulitis Chronic venous stasis dermatitis / Hx of PVD Protein calorie malnutrition Chronic COPD Hypertension hip pain: L>R hx Left hip fractures s/p left IM rodding Hx of left popliteal thrombus (Mar 2024) Lower left extremity cellulitis Chronic venous stasis dermatitis / Hx of PVD Hx of left popliteal thrombus (Mar 2024) on admission, presents with mild erythema, swelling to lower extremities up to the knees. +dry flaky skin to bilateral lower extremities Patient has history of chronic venous stasis dermatitis and PVD. venous u/s (07/22): no DVT. prior Left popliteal venous thrombosis appears resolved. continue eliquis 5 mg BID continue empiric rocephin / vanc to cover cellulitis (07/22-) IV steroids deescalated to PO prednisone 07/23 pain control duonebs erythema, swelling improving. Covering less area and less red. give lasix x1 07/24 and again 07/25 - will monitor/review daily IVF dc'd (07/23) Protein calorie malnutrition minimal appetite per family. Encourage supplemental nutrition as needed. Chronic COPD Hypertension confirm home meds, restart as appropriate hip pain: L>R hx Left hip fractures s/p left IM rodding reports bilateral hip pain, L>R 07/26 Bilateral lower extremity erythema resolved. Bilateral lower extremity swelling improved. Continue IV Rocephin and vancomycin Transition to oral antibiotics on discharge Analgesics as needed. Awaiting orthopedic input regarding left hip loyda and screws positioning. 07/27 Patient bilateral lower extremity edema improved to baseline. Bilateral lower extremity erythema resolved. Patient hip x-ray results and imaging discussed with her Ortho Dr. Arik Elise recommend conservative management-pain management and therapy and no surgical intervention at this time. PT informed to evaluate patient. Patient is being evaluated for inpatient rehab placement. Transition IV antibiotics to oral Levaquin and doxycycline. VTE: home eliquis Code: Full Dispo: IPR
[2024-07-27] MEDS ORDERED: levoFLOXacin 750 MG TAB PO SCH (15:00)
[2024-07-27] MEDS: DOXYCYCLINE 100 MG CAP PO SCH (21:35)
[2024-07-28] MEDS: FUROSEMIDE 40 MG/4 ML VIAL IV ONE ×2 (08:13→11:39)
[2024-07-28] MEDS: levoFLOXacin 750 MG TAB PO SCH (11:22)
--- NOTE | 2024-07-28 19:29 | P.PN ---
Subjective Date of Service: 07/28/24 Chief Complaint: Cellulitis of the lower extremities Patient has no no new complaint. She is maintained on 2 to 3 L of oxygen by nasal cannula which is her baseline. He reports pain with ambulation. Physical Examination - Vital Signs Temperature: 98.5 F Blood Pressure: 113/70 Pulse: 95 Respirations: 18 Pulse Ox (%): 99 - Studies Microbiology Data (last 24 hrs): 07/23/24 05:32 Blood - Blood Aerobic Blood Culture - Final No growth in 5 days. 07/23/24 05:32 Blood - Blood Anaerobic Blood Culture - Final No growth in 5 days. 07/22/24 13:39 Blood - Blood Aerobic Blood Culture - Final No growth in 5 days. 07/22/24 13:39 Blood - Blood Anaerobic Blood Culture - Final No growth in 5 days. Assessment And Plan - Plan Physical Exam: GEN: Alert, oriented, NAD CV: Regular rate and rhythm, 1+ bilateral lower extremity pitting edema. Pulm: Nonlabored respirations on 2L NC, clear bilaterally Integumentary: erythema of lower extremities resolved. Dry, Flaky skin bilaterally. Neuro: Normal speech, normal affect. Musculoskeletal: Pain with ROM about the left hip. Problem List: Lower left extremity cellulitis Chronic venous stasis dermatitis / Hx of PVD Protein calorie malnutrition Chronic COPD Hypertension hip pain: L>R hx Left hip fractures s/p left IM rodding Hx of left popliteal thrombus (Mar 2024) Lower left extremity cellulitis Chronic venous stasis dermatitis / Hx of PVD Hx of left popliteal thrombus (Mar 2024) on admission, presents with mild erythema, swelling to lower extremities up to the knees. +dry flaky skin to bilateral lower extremities Patient has history of chronic venous stasis dermatitis and PVD. venous u/s (07/22): no DVT. prior Left popliteal venous thrombosis appears resolved. continue eliquis 5 mg BID continue empiric rocephin / vanc to cover cellulitis (07/22-) IV steroids deescalated to PO prednisone 07/23 pain control duonebs erythema, swelling improving. Covering less area and less red. give lasix x1 07/24 and again 07/25 - will monitor/review daily IVF dc'd (07/23) Protein calorie malnutrition minimal appetite per family. Encourage supplemental nutrition as needed. Chronic COPD Hypertension confirm home meds, restart as appropriate hip pain: L>R hx Left hip fractures s/p left IM rodding reports bilateral hip pain, L>R 07/26 Bilateral lower extremity erythema resolved. Bilateral lower extremity swelling improved. Continue IV Rocephin and vancomycin Transition to oral antibiotics on discharge Analgesics as needed. Awaiting orthopedic input regarding left hip loyda and screws positioning. 07/27 Patient bilateral lower extremity edema improved to baseline. Bilateral lower extremity erythema resolved. Patient hip x-ray results and imaging discussed with her Ortho Dr. Arik Elise recommend conservative management-pain management and therapy and no surgical intervention at this time. PT informed to evaluate patient. Patient is being evaluated for inpatient rehab placement. Transition IV antibiotics to oral Levaquin and doxycycline. 07/28 IV Lasix for lower extremity edema. Weightbearing as tolerated per Dr. Elise. Analgesics as needed. Continue oral antibiotics Patient is slated for inpatient rehab. VTE: home eliquis Code: Full Dispo: IPR
[2024-07-29 08:38] VITALS: BP 115/75; TEMP 98.2
--- NOTE | 2024-07-29 09:02 | P.DS ---
Admission Date: 07/24/24 Discharge Date: 07/29/24 Disposition: TRANSFER TO INPATIENT REHAB Discharge Condition: FAIR Reason for Admission: Cellulitis of the lower extremities Hospital Course: Problem List: Lower left extremity cellulitis Chronic venous stasis dermatitis / Hx of PVD Protein calorie malnutrition Chronic COPD Hypertension hip pain: L>R hx Left hip fractures s/p left IM rodding Hx of left popliteal thrombus (Mar 2024) Patient presented with mild erythema, swelling to lower extremities up to the knees associated with dry flaky skin to bilateral lower extremities secondary to lower extremity cellulitis. Venous ultrasound was negative for DVT, also noted prior Left popliteal venous thrombosis appears resolved. Patient was started on empiric IV rocephin, vanc in the ED in addition to IV steroids and had improvement of her symptoms. She was also given lasix x1 and swelling improved. Patient was feeling better, erythema and swelling significantly improved, and was deemed stable for discharge. IV antibiotics transitioned to oral doxycycline. Patient has pain in bilateral hip. Pelvic x-ray demonstrated the following: * Compression screw left hip fracture collapse has developed. * Angulation at the fracture site is almost 90 degrees. Compression screw extends superior to the femoral neck. It lies 13 mm past the cortex. * Compression screw and intramedullary loyda affixing old right femoral fracture. * Marked right hip joint space narrowing with subchondral sclerosis and subchondral cysts are present. There may be avascular necrosis of the femoral head as well Patient hip x-ray results and imaging discussed with her Ortho Dr. Arik Elise recommend conservative management-pain management and therapy and no surgical intervention at this time. Dr. Elise recommends weightbearing as tolerated. Patient evaluated by physical therapy and deemed appropriate for inpatient rehab. Vital Signs/Physical Exam: Temp Pulse Resp BP Pulse Ox 98.2 F 72 16 115/75 97 07/29/24 08:00 07/29/24 08:59 07/29/24 08:00 07/29/24 08:59 07/29/24 08:00 General: Alert, In no apparent distress, Oriented x3 Neck: JVD distended Respiratory: Clear to auscultation bilaterally, Normal air movement Cardiovascular: Regular rate/rhythm, Normal S1 S2 Gastrointestinal: Normal bowel sounds, Soft and benign, Non-distended Integumentary: No cyanosis Neurological: Normal strength at 5/5 x4 extr Laboratory Data at Discharge: WBC 6.70 thou/uL (4.3-10.9) 07/27/24 05:36 Hgb 9.2 g/dL (12.0-15.0) L 07/27/24 05:36 Hct 28.5 % (36.0-45.0) L 07/27/24 05:36 Plt Count 387 thou/uL (152-406) 07/27/24 05:36 PT 14.7 SECONDS (9.4-12.5) H 07/22/24 13:39 INR 1.40 07/22/24 13:39 Sodium 141 mEq/L (136-145) 07/27/24 05:36 Potassium 3.7 mEq/L (3.5-5.1) 07/27/24 05:36 BUN 15 mg/dL (7-18) 07/27/24 05:36 Creatinine 0.57 mg/dL (0.55-1.02) 07/27/24 05:36 Glucose 90 mg/dL (74-106) 07/27/24 05:36 Magnesium 2.5 mg/dL (1.6-2.4) H 07/25/24 05:37 Total Bilirubin 0.3 mg/dL (0.2-1.0) 07/23/24 05:32 AST 23 U/L (15-37) 07/23/24 05:32 ALT < 14 U/L (13-56) 07/23/24 05:32 Alkaline Phosphatase 132 U/L (45-117) H 07/23/24 05:32 Home Medications: Metoprolol Tartrate [Lopressor*] 25 mg PO BID 08/14/22 Albuterol Neb [Proventil 0.083% Neb Soln] 2.5 mg NEB [id number] PRN #120 amp 05/05/23 Gabapentin [Neurontin*] 100 mg PO TID #90 cap 05/05/23 Apixaban [Eliquis] 5 mg PO BID 30 Days #60 tab 03/25/24 Hydrocodone 5/APAP 325 [[place] 5/325*] 1 tab PO Q6HP PRN tab 03/25/24 Levothyroxine [Synthroid*] 0.1 mg PO DAILYAC tab 03/25/24 Buspirone HCl [Buspar*] 5 mg PO TID 07/22/24 Doxycycline Hyclate 100 mg PO BID #6 cap 07/29/24 Ipratropium Neb [Atrovent*] 0.5 mg NEB [id number] amp 07/29/24 levoFLOXacin [Levaquin*] 750 mg PO DAILY #3 tab 07/29/24 New Medications: Doxycycline Hyclate 100 mg PO BID #6 cap Physician Discharge Instructions: Physician discharge instructions: Patient presented with mild erythema, swelling to lower extremities up to the knees associated with dry flaky skin to bilateral lower extremities secondary to lower extremity cellulitis. Venous ultrasound was negative for DVT, also noted prior Left popliteal venous thrombosis appears resolved. Patient was started on empiric IV rocephin, vanc in the ED in addition to IV steroids and had improvement of her symptoms. She was also given lasix x1 and swelling improved. Patient was feeling better, erythema and swelling significantly improved, and was deemed stable for discharge. Follow up with PCP within 1 week for further management. Medications: Follow up: PCP 3-5 days Please call to schedule / confirm appointments Followup: SUNG FLORES [Primary Care Provider] - 1-2 Weeks Time spent managing pt's care (in minutes): 38
[2024-07-29 10:46] VITALS: O2SAT 98
--- NOTE | 2024-08-01 12:46 | EKG ---
Test Date: 2024-07-22 Test Time: 13:52:26 Or First Assist Registered Nurse: AM MEASUREMENT RESULTS: Intervals: Rate: 85 ME: 156 QRSD: 74 QT: 376 QTc: 447 [place]: P: 44 ME: 156 QRS: 92 T: 91 INTERPRETIVE STATEMENTS: Normal sinus rhythm Normal ECG Compared to ECG 03/22/2024 04:11:40 Right-axis deviation no longer present Myocardial infarct finding no longer present Electronically Signed On 08-01-24 12:23:27 MEDICAL TRANSCRIPTION SUPERVISOR by Renny Parikh
== END 2024-07-29 09:55 | DRG 603 ==
LOC: ER 12:45 → ERHOLD 15:32 → 4TH 18:41 → OBSVTOIN 07-24 11:09
PROVIDERS: ADMIT Hospitalist; ATTEND Internal Medicine
DX: L03.116 Cellulitis of left lower limb (principal); E44.0 Moderate protein-calorie malnutrition; Z68.1 Body mass index [BMI] 19.9 or less, adult; L97.929 Non-pressure chronic ulcer of unspecified part of left lower leg with unspecified severity; M87.251 Osteonecrosis due to previous trauma, right femur; L03.115 Cellulitis of right lower limb; D64.9 Anemia, unspecified; I10 Essential (primary) hypertension; I87.2 Venous insufficiency (chronic) (peripheral); E03.9 Hypothyroidism, unspecified; I73.9 Peripheral vascular disease, unspecified; J44.9 Chronic obstructive pulmonary disease, unspecified; S72.002D Fracture of unspecified part of neck of left femur, subsequent encounter for closed fracture with routine healing; I25.2 Old myocardial infarction; Z60.2 Problems related to living alone; Z90.49 Acquired absence of other specified parts of digestive tract; Z79.01 Long term (current) use of anticoagulants; Z79.890 Hormone replacement therapy; Z79.899 Other long term (current) drug therapy; Z87.891 Personal history of nicotine dependence
CPT/HCPCS: 36415; 71045; 73521; 80048; 80053; 80076; 80202; 81001; 83735; 83880; 84484; 85025; 85027; 85610; 87040; 93005; 93970; 96365; 96375; 97110; 97116; 97161; 97530; 99285; G0378; J0690; J0696; J1940; J2270; J2405; J2919; J3010; J7030; J7040; J7050; J7512; J7613; J7644

== ENCOUNTER 2024-07-29 08:05 | Inpatient (IN) | payer OTHER ==
[2024-07-29 10:15] VITALS: BMI 18.4
[2024-07-29] MEDS: IPRATROPIUM BROM 0.5MG/2.5ML NEB SCH (13:24)
[2024-07-29] MEDS: ALBUTEROL 2.5 MG/3 ML NEB SOL NEB SCH (13:24)
[2024-07-29] MEDS: GABAPENTIN 100 MG CAP PO SCH ×2 (14:00→20:14)
--- NOTE | 2024-07-29 14:09 | P.RH.PN ---
Estimated Length of Stay: 10 Expected Discharge Date: 08/06/24 Discharge Disposition Plan: Home Family Support: Yes Vital Signs: Last Vital Signs Temp 97.7 F 07/29/24 09:43 Pulse 94 H 07/29/24 09:43 Resp 18 07/29/24 09:43 BP 148/90 H 07/29/24 09:43 Pulse Ox 98 07/29/24 09:43 Weight: 121 lb 3.2 oz Physician Update: Labs are pending. Appears to have a lot of pain. The left hip is painful with lossen screw. To be evaluated by OT. Summary: Patient's care plan and custodial goals have been reviewed and revised as necessary. Please see the Rehabilitation Signature page for all necessary signatures.
[2024-07-29] MEDS: BUSPIRONE HCL 5 MG TABLET PO SCH (15:05)
[2024-07-29] MEDS: ENSURE CLEAR 200 ML CAN PO SCH (15:09)
--- NOTE | 2024-07-29 19:46 | RAD REPORT ---
EXAMINATION: US LOWER EXTREMITY VENOUS DOPPLER BILATERAL CLINICAL INDICATION: Female, 74 years old.opal,swollen legs TECHNIQUE: Complete bilateral duplex sonography of the lower extremity veins was performed. The exami nation included compression for vein patency, color Doppler imaging and flow augmentation in response to distal compression of the distal external iliac, common femoral, femoral, popliteal, yuliya tomas, tibial and great saphenous veins. [id number]. COMPARISON: No prior exams FINDINGS: Duplex sonography imaging demonstrates all deep examined to be fully compressible with spontaneous, p hasic and augmented flow bilaterally. Anechoic fluid collection in the right inguinal region measuring 2.2 cm.. This may be fluid trapped in the right inguinal hernia or perhaps fluid at the carolyn opsoas bursa. IMPRESSION: No evidence of deep venous thrombosis seen in either lower extremity.
[2024-07-29] MEDS: METOPROLOL TAR 25 MG TAB PO SCH (20:14)
[2024-07-29] MEDS: APIXABAN 5 MG TABLET PO SCH (20:14)
[2024-07-29] MEDS: DOXYCYCLINE 100 MG CAP PO SCH (20:14)
--- NOTE | 2024-07-30 00:02 | HP ---
Date of Admission: 07/29/2024 Time Of Service: 2 p.m. Chief Complaint: "I have infection in my left leg." History Of Present Illness: Ms. Bruno is a 74-year-old patient with history of tobacco abuse, chron ic venous stasis dermatitis. She has "broken heart syndrome" and COPD. She presented to the Emer[facility] cy Department on 07/22/2024 with weeping and swelling and redness in the lower extremities with eryth kaylie again bilaterally. She had called the Emergency Medical Services as she has not had someone to t consuelo her in to be seen. She was diagnosed with cellulitis of the left lower extremity and arterial le g ulcer, generalized arthrosclerosis, protein calorie malnutrition. Her comorbidities do include as noted COPD and chronic venous stasis dermatitis. She did have significant pain in the hip, left grea ter than right. Workup noted to be left. She had history of left hip fracture and has had an intram edullary loyda. There was also in that area a compression screw in the left hip, which had a fracture collapse. The right hip joint space is narrowed and there is subchondral sclerosis and cysts present . The study suggests a possibility of avascular necrosis of the femoral head as well. She did recei ve IV antibiotics, IV fluids, DVT prophylaxis with Eliquis. She was not identified to have deep vein thrombus. She did receive IV steroids, pain management, nebulizer treatment, and nutrition suppleme ntation along with the orthopedic evaluation. She was seen by the Physical Therapy Service and found to be functioning significantly below baseline level of functioning, where she was independent at [facility] with a rolling walker, mobilizing and performing activities of daily living. She did her cooking and her prior level of activities of daily living. However, over last few weeks, she had been mostly wheelchair mobilizing due to the hip pain and the swelling and redness in the left lower extremity. She is now at a standby assistance for transfers, ambulating only about 25 feet in terms of pain. S he is now admitted to the inpatient rehabilitation unit to have aggressive physical and occupational therapy and medical management to help her return to her prior level of functioning and reduce risk o f rehospitalization. Past Medical History: As noted. Past Surgical History: , appendectomy. X-ray/imaging: She has had chest x-ray on 07/22, shows no acute abnormalities displayed. A venous D oppler study on 07/22 shows no evidence of deep vein thrombosis in either lower extremity. The left popliteal venous thrombus described on the prior exam had resolved. Hip x-ray on 07/25 showed compre ssion screw in the left hip fracture and collapse. The angulation of the fracture site is almost 90 degrees. Compression screw extends superiorly to the femoral neck. It lies 13 cm past the cortex. The compression screw and intramedullary loyda affixing the old right femoral fracture was there. Ther e is a marked right hip joint space narrowing with subchondral sclerosis and subchondral cysts presen t and the radiologist noted it may represent avascular necrosis of the femoral head as well as osteop orosis. Allergies: NO KNOWN DRUG ALLERGIES. Medications: [place] 5/325 every 6 hours as needed, albuterol nebulizer 2.5 mg every 6 hours as needed , Eliquis 5 mg twice daily, BuSpar 5 mg 3 times daily, Vibramycin 100 mg twice daily, gabapentin 200 mg twice daily, Ensure Clear 237 mL 3 times daily, Atrovent nebulizer 0.5 mg every 6 hours as needed, Levaquin 750 mg twice daily, Synthroid 0.1 mg daily, Lopressor 25 mg twice daily. Laboratory Studies: White blood cell count 6.7, hemoglobin 9.2, hematocrit 28.5, platelets 387. Her sodium is 141, potassium 3.7, glucose 90, BUN 15, creatinine 0.57, calcium 9.1, magnesium 2.5, album in 2.3. Review of Systems: She does report some fluid she says on the left leg. When she touches the leg, she feels moisture, b ut it actually was not at this current point, but at different times she says the left leg feels mois ture on the outside. Also some mild pain in both hips and in the lower extremities plus numbness the re. She denies any fevers, any chills. Mild myalgias, arthralgias. No other findings on a systems review. Current Level Of Functioning: For eating, setup assistance. Grooming, setup assistance. Moderate a ssistance for bathing. Supervision for upper body dressing. Moderate assistance for lower body dres sing and donning and doffing footwear. Transferring from toilet to shower, supervision to contact gu db assistance. Ambulation, supervision, 25 feet. Physical Examination: Vital Signs: Blood pressure 148/90, pulse 94, respiratory rate 18, temperature 97.7, oxygen saturati on 98%. General: Again, Ms. Elena Bruno is sitting in a chair. Therapist at bedside. HEENT: She appears normocephalic, atraumatic. Sclerae anicteric. Oropharynx pink, moist. Neck: Supple. Extremities: She has mild to moderate edema in the lower extremities, but no pain in the calf area a nd she has good air movement. Abdomen: Soft. Rehab And Medical Assessment And Plan: Ms. Bruno is a 74-year-old patient, admitted to the [facility] with impairment category 20, miscellaneous. Her impairment group code is 16, debility. Etiologic diagnosis, left lower extremity cellulitis. Her comorbid conditions do include tobacco d ependency, COPD, chronic venous stasis dermatitis, history of broken heart syndrome. Plan: She will have physical and occupational therapy, 3 hours a day, 5 of 7 days. She will continu e with management of the cellulitis with Levaquin 750 mg daily. In addition, she has Vibramycin 100 mg daily, continue at least 7 more days. Continue with Eliquis 5 mg twice daily for DVT and stroke r isk reduction, gabapentin for neuropathic pain, Ensure Enlive for malnutrition, nebulizer for shortne ss of breath and COPD, Wellesley for pain. She has Synthroid for hypothyroidism, Lopressor for heart rat e and blood pressure control. Comorbidities That Are Impacting Rehabilitation: The patient's cellulitis obviously is a reason for her having debility. She is going to receive the oral antibiotics. If need be, IV antibiotics may h ave to be given depending on the patient's responses. Blood work will be done, chest x-ray and urina lysis as well. She is at high risk of falls, fall precautions to be adhered to at all times. She goodman s a tobacco dependency issue, may have a nicotine patch placed to help reduce risk of tobacco withdra wal. Rehab Specific Plan: Ms. Bruno will have physical and occupational therapy, 3 hours a day, 5 of 7 d ays, to improve her ability to transfer from bed to chair, to toilet, to shower, to be able to mobili ze at least more than household distances with a rolling walker 250 feet, wheelchair 250 feet, up and down 10 steps with bilateral handrails. She is going to have cognitive evaluation and if need be, w e will have speech therapy to help with safety awareness and planning and improving recall and commun ication. Ms. Bruno has a good understanding of the process of admission to the inpatient rehabilitation unit and how she will benefit from physical and occupational therapy. She will have 24 hours a day, 7 day s a week skilled rehabilitation and nursing, daily physician evaluation and management, and social se rvices evaluation and management for discharge planning, home equipment, followup, and to continue th erapy. If need be, additional help will be sought from the Hospitalist Service. Barriers To Discharge: She was independent previously. She does have the cellulitis and venous nagi is issues in the lower extremity, which will likely be chronic and therefore she would be at increase d risk of additional infections in the leg that has more cellulitis and will have to be potentially f ollowed very closely by vascular surgeons. She may require prolonged stay in inpatient rehabilitatio n which may not be possible and therefore may have to go to prison prior to discharging home . Hospital stay is about 12 to 14 days. Disposition: Expected to be home to continue therapy via Home Health. Prognosis: Good. Code Status: Full code. Rehab Specific Goals: 1. Become independent with upper and lower body dressing, donning and doffing footwear. 2. Independently mobilize a wheelchair 250 feet and a rolling walker 250 feet and going up and down 1 0 steps with bilateral handrails. 3. Independently perform cognitive functioning. 4. Independently perform all activities of daily living. 5. Independently manage her medications and physician followup. The above goals were reviewed with Ms. Bruno and she is in agreement. By signing this document, I acknowledge I personally performed a full physical examination on Ms. Kashif garsia no later than 24 hours after her admission to the inpatient rehabilitation unit and determined th at she is able to tolerate the above course of treatment at an intensive level for a reasonable perio d of time. A detailed individualized plan of care for her will be completed by hospital day 4 based on the preadmission screen, history and phy sical, and therapy evaluations. ADELA/JUSTIN Voice ID: [id number]
[2024-07-30 07:04] LABS: Absolute Eosinophils 0.2 K/uL (0-0.5); Absolute Lymphocytes (CBC) 1.4 K/uL (0.7-4.9); Absolute Monocytes 0.8 K/uL (0.1-1.3); Absolute Neutrophil 3.9 K/uL (1.8-8.0); Basophils % 0.4 % (0-1.3); Eosinophils % 2.9 % (0-4.4); Hematocrit 26.6 % (36.0-45.0); Hemoglobin 8.5 g/dL (12.0-15.0); Lymphocytes % 22.2 % (15.3-44.8); MCH 27.2 pg (27.0-35.0); MCHC 32.1 g/dL (32.0-36.0); MPV 7.2 fL (7.6-11.3); Monocytes % 13.1 % (3.3-12.3); Neutrophils % 61.4 % (41.7-73.7); Nucleated Red Blood Cells % 0.1 % (0-0); Platelets 420 thou/uL (152-406); RBC Red Blood Cell Count 3.13 M/uL (3.86-4.86); Red Cell Distribution Width 15.5 % (12.1-15.2)
[2024-07-30] MEDS: LEVOTHYROXINE SOD 0.1 MG TAB PO SCH (07:21)
[2024-07-30 07:25] LABS: Albumin 2.2 g/dL (3.4-5.0); Anion Gap 5.3 mEq/L (5.0-15.0); Magnesium 2.1 mg/dL (1.6-2.4); Potassium 3.3 mEq/L (3.5-5.1); Prealbumin 15.8 mg/dL (20-40)
[2024-07-30] MEDS: levoFLOXacin 750 MG TAB PO SCH (07:29)
[2024-07-30] MEDS: METOPROLOL TAR 25 MG TAB PO SCH (11:27)
[2024-07-30] MEDS: POTASSIUM CL SA 10 MEQ TAB PO ONE (13:00)
[2024-07-30] MEDS: POTASSIUM 25 MEQ EFFERV TAB PO ONE (13:48)
[2024-07-31] MEDS: POTASSIUM 25 MEQ EFFERV TAB PO SCH (07:20)
[2024-07-31] MEDS ORDERED: POTASSIUM CL SA 10 MEQ TAB PO SCH (08:00)
[2024-07-31 08:42] LABS: Specific Gravity 1.029 (1.005-1.030); Sqamous Epithelial <5 /HPF (None Seen); Urine Bacteria None Seen /HPF (<20); Urine Bilirubin NEGATIVE (Negative); Urine Blood Negative (Negative); Urine Clarity Clear (Clear); Urine Color Yellow (Yellow); Urine Culture Reflex Order NOT NEEDED; Urine Glucose NEGATIVE (Negative); Urine Ketones NEGATIVE (Negative); Urine Micro Reflex YN NO BILL MICROSCOPIC; Urine Nitrite NEGATIVE (Negative); Urine Protein TRACE (Negative); Urine RBC None Seen /HPF (None Seen); Urine Urobilinogen Normal (Normal); Urine WBC <5 /HPF (<5); Urine Yeast (Budding) Trace /HPF (None Seen)
[2024-08-01] MEDS: HYDROCODONE/APAP 5/325 MG TAB PO PRN (08:50)
--- NOTE | 2024-08-02 01:30 | PN ---
Date of Progress Note: 08/01/2024 Time Of Service: 1:40 p.m. Subjective: Ms. Bruno is doing very well. No new complaints. Her left lower extremity cellulitis is not bothersome. No significant worsening or changes or abnormal findings with the leg. Objective: Some mild discomfort in the left lower extremity and with mobilization, otherwise doing f airly well, and no complaints in terms of review of systems. Physical Examination: Vital Signs: Blood pressure 113/61, pulse of 82, respiratory rate of 18, temperature is 98.2, oxygen saturation 96%. General: Ms. Bruno is resting comfortably, in no acute distress. HEENT: Normocephalic, atraumatic. Sclerae anicteric. Oropharynx pink, moist. Neck: Supple. Chest: Clear. Extremities: Mild trace edema in the left lower extremity. Laboratory Studies: White blood cell count is 6.4, hemoglobin 8.5, platelets 420. Sodium 143, potas sium 3.3, chloride 110, carbon dioxide 31, BUN 14, creatinine 0.59, glucose is 86, calcium 8.5, magne sium 2.1, prealbumin 2.2, albumin 15.8. Urinalysis is unremarkable except for trace budding yeast an d trace total protein. X-ray/imaging: No new x-rays or imaging given DVT rule out done. No DVT identified in either lower extremity and that was on 07/29/2024. Medications: Rye 5/325 every 6 hours as needed, albuterol nebulizer 2.5 mg twice daily, she has El iquis 5 mg twice daily, BuSpar 5 mg 3 times daily and is on multiple antibiotics including Vibramycin 100 mg twice daily and she is on levofloxacin 750 mg daily, has gabapentin 200 mg twice daily, Synth roid 0.1 mg daily, Lopressor 25 mg twice daily, potassium 12.5 mg daily. Progress Made With Physical And Occupational Therapy: With physical therapy today, she performed lexi ateral seated exercises 25 repetitions. Also, she did have somewhat of an upset stomach earlier toda y and somewhat limited in her therapy. However, later on, she was able to ambulate 30 feet with josefina dby assistance and posterior propelled a wheelchair 175 feet. With occupational therapy, she did the rapeutic exercises upper body, lower body, using red dowels for 22 sets of 20 repetitions. Assessment And Plan: Ms. Bruno is a 74-year-old patient in the rehabilitation unit with left lower extremity cellulitis. She has decreased mobility, decreased physical functioning in addition to hypo kalemia and was addressed with replacement. She has hypertension addressed with metoprolol, cellulit is addressed with Vibramycin and levofloxacin. She has Synthroid for hypothyroidism and gabapentin f or neuropathic pain, Eliquis for DVT prophylaxis and stroke risk reduction, and nebulizer treatment o n board along with Rye for severe pain. She will continue with physical and occupational therapy 3 hours a day, 5 of 7 days, and continue with comorbid condition medications. ADELA/JUSTIN Voice ID: [id number] Report ID: [id number]
[2024-08-02] MEDS: FERROUS SULFATE 325 MG TAB PO SCH (08:00)
[2024-08-02] MEDS: FE SULF/FA/VIT B COMP & C TAB PO SCH (08:09)
[2024-08-02] MEDS ORDERED: ACETAMINOPHEN 500 MG TAB PO PRN (13:43)
--- NOTE | 2024-08-02 22:40 | PN ---
Subjective: Ms. Bruno is resting comfortably, in no significant distress, doing very well with ther apy. Left lower extremity cellulitis is not producing much pain. She is very happy as the therapist work with her. Objective: Some again mild discomfort in the right lower extremity and pain distally and she has keira n medications, which are addressing the issue including neuromodulator and narcotic medications and l ow-level narcotic medications as well. Physical Examination: Vital Signs: Blood pressure is 127/65, pulse 89, respiratory rate 20, temperature 97.8, oxygen satur ation 100%. General: Again, Ms. Bruno is sitting in a chair beside the bed. HEENT: She is normocephalic, atraumatic. Sclerae anicteric. Extremities: Mild swelling in the left lower extremity, where there is mild cellulitis as noted. Archie gaytan is continuing with the antibiotics, Vibramycin 100 mg twice daily and levofloxacin 750 mg twice yvonne ly to complete 10 days. Medications: As noted, she has 2 antibiotics in addition to potassium 12.5 mEq daily, Hemocyte Plus 1 tablet with breakfast, Lopressor 25 mg twice daily, Synthroid 0.1 mg daily, Atrovent nebulizer 0.5 mg every 6 hours as needed, gabapentin 200 mg twice daily, ferrous sulfate 325 mg daily, Ensure Clear 237 mL 3 times daily, BuSpar for anxiety 5 mg 3 times daily, Eliquis 5 mg twice daily for DVT and st roke risk reduction, albuterol nebulizer, and Tylenol on board. Progress Made With Physical And Occupational Therapy: Today with physical therapy, she did supine-to -sit transfers, bed mobility, scooting with contact guard assistance, and she was able to ambulate wi th a rolling walker 30 feet 3 times with contact guard assistance. In addition, she mobilized a whee lchair 75 feet twice with standby assistance. With occupational therapy, independent with sit-to-sta nd transfers at edge of bed to wheelchair without a rolling walker. She did have 2 L of oxygen via n chetna cannula. Assessment And Plan: Ms. Elena Bruno is a 74-year-old patient in rehabilitation unit with left low er extremity cellulitis. She still has decreased mobility, decreased physical functioning, neuropath ic pain, atrial fibrillation, on Eliquis, the cellulitis is treated with Vibramycin and levofloxacin. She has shortness of breath. Shortness of breath addressed with Atrovent, hypothyroidism addressed with Synthroid. Heart rate is managed with Lopressor and iron deficiency addressed with Hemocyte Pl us. In terms of plan, continue with physical and occupational therapy 3 hours a day, 5 of 7 days, an d continue her medications as noted. She will have ending of antibiotics over 10 days. LB/MODL Voice ID: [id number] Report ID: [id number]
[2024-08-03 06:20] LABS: Absolute Basophils 0.1 K/uL (0-0.5); Absolute Eosinophils 0.5 K/uL (0-0.5); Absolute Lymphocytes (CBC) 0.8 K/uL (0.7-4.9); Absolute Monocytes 0.6 K/uL (0.1-1.3); Absolute Neutrophil 3.5 K/uL (1.8-8.0); Basophils % 1.2 % (0-1.3); Eosinophils % 9.6 % (0-4.4); Hematocrit 25.4 % (36.0-45.0); Hemoglobin 8.4 g/dL (12.0-15.0); MCH 27.5 pg (27.0-35.0); MCHC 33.1 g/dL (32.0-36.0); MCV 83.2 fL (80-100); MPV 7.5 fL (7.6-11.3); Monocytes % 11.5 % (3.3-12.3); Neutrophils % 63.7 % (41.7-73.7); Nucleated Red Blood Cells % 0.2 % (0-0); Platelets 349 thou/uL (152-406); RBC Red Blood Cell Count 3.06 M/uL (3.86-4.86); Red Cell Distribution Width 15.6 % (12.1-15.2)
[2024-08-03 06:44] LABS: Albumin 2.2 g/dL (3.4-5.0); Anion Gap 5.7 mEq/L (5.0-15.0); Magnesium 2.2 mg/dL (1.6-2.4); Potassium 3.7 mEq/L (3.5-5.1); Prealbumin 14.6 mg/dL (20-40)
--- NOTE | 2024-08-04 00:17 | PN ---
Date of Progress Note: 08/03/2024 Time Of Service: 1:30 p.m. Subjective: Ms. Bruno is doing well. No significant pain. Left lower extremity cellulitis area is doing well and mobilizing well. Still did have some adjustment of medications, but again doing very well. Review of Systems: No fevers, chills, nausea, vomiting. Mild pain in the right lower extremity and still requiring pain medications on as needed basis. Physical Examination: Vital Signs: Blood pressure 115/65, pulse 90, respiratory rate 20, temperature 98.2, oxygen saturati on 97%. Weight 231 pounds, height 5 feet, BMI 18.4. General: Ms. Bruno is resting comfortably in a chair between therapy sessions. HEENT: Normocephalic, atraumatic. Sclerae anicteric. Oropharynx pink and moist. Neck: Supple. She is continuing Vibramycin, levofloxacin for cellulitis of the left lower extremity. Laboratory Studies: White blood cell count 5.5, hemoglobin 8.4, platelets 349. Sodium 143, potassiu m 3.7, chloride 112, carbon dioxide 29, BUN 20, creatinine 0.67, glucose 85, calcium 8.3. Magnesium 2.2. Albumin 2.2, prealbumin 14.9. X-ray/imaging: No new x-rays or imaging. Medications: Medications have been reviewed. She is on ferrous sulfate for anemia, Hemocyte Plus as well. Medications are unchanged. Progress Made With Physical And Occupational Therapy: With physical therapy today, she mobilized whe elchair 40 feet with supervision. Stairs, she was 3 in up and 3 in down with contact guard assistanc e. Oxygen saturation remained above 92% with 2 L of oxygen via nasal cannula. In addition, she also ambulated another 30 feet with contact guard assistance and mobilized wheelchair 150 feet with stand by assistance. With occupational therapy, independent with [id number] transfers at edge of bed to wheelchair. She did exercises with 2-pound dowel loyda in upper extremities, improved strength and end urance. Assessment And Plan: Ms. Bruno is a 74-year-old patient admitted to the rehabilitation unit with le ft lower extremity cellulitis. She has decreased mobility, decreased physical functioning. She is o n 2 antibiotics orally, levofloxacin 750 mg daily, complete a 10-day course. In addition, she has Vi bramycin 100 mg twice daily. She has Eliquis for DVT and stroke risk reduction, for atrial fibrillat ion. Neuropathic pain addressed with gabapentin. Ferrous sulfate for iron deficiency. Ensure Lit e for malnutrition. She has BuSpar for anxiolytic and anti-depressant affect. Potassium replacemen t on board, Lopressor for heart rate control, Synthroid for hypothyroidism. Our plan will be to cont inue with physical and occupational therapy 3 hours a day, 5 of 7 days. Continue with current medica tion list and again antibiotics up to 10 days. LB/MODL Voice ID: [id number] Report ID: [id number]
[2024-08-04 19:22] VITALS: O2SAT 96
--- NOTE | 2024-08-04 22:48 | PN ---
Date of Progress Note: 08/04/2024 Time Of Service: 1:25 p.m. Subjective: Ms. Bruno is doing very well. No complaints with therapy so far. Review of Systems: No fevers, chills, nausea, vomiting. No significant pain in the lower extremities. Physical Examination: Vital Signs: Blood pressure is 113/64, pulse 74, respiratory rate of 16, temperature 98.2, oxygen sa turation 97%. General: Ms. Bruno is resting well. HEENT: Normocephalic, atraumatic. Sclerae anicteric. Extremities: No significant clubbing, cyanosis, or edema noted in the extremities. Laboratory Studies: White blood cell count is 5.5, hemoglobin 8.4, platelets 349. Sodium 143, potas sium 3.7, chloride 112, carbon dioxide is 29, BUN 20, creatinine 0.67. Prealbumin 14.6, albumin 2.2. X-ray/imaging: No new x-rays or imaging. Medications: Medications have been reviewed and are unchanged. Progress Made With Physical And Occupational Therapy: With physical therapy today, she did ambulate 10 feet and 50 feet using a rolling walker with minimum assistance. Mobilized wheelchair 100 feet an d 70 feet with supervision to modified independence. With occupational therapy, independent for sit- to-stand transfers. Edge of bed to chair transfer, independent. She was able to propel a wheelchair independently to the gym. Assessment: Ms. Bruno is a 74-year-old patient in unit with left lower extremity cellulitis. She s till has moderate decreased mobility decreased physical functioning, hypothyroidism, hypertension, hy pokalemia, and neuropathic pain. She is on multiple antibiotics 10 days. She has Eliquis for DVT prophylaxis and for atrial fibrillation to reduce risk of stroke. Ferrous sulfate for iron deficiency. Plan: She will continue with physical and occupational therapy 3 hours a day, 5 of 7 days. Continue with comorbid condition medications, which are noted and finish antibiotics prior to her discharge. LB/MODL Voice ID: [id number] Report ID: [id number]
--- NOTE | 2024-08-05 13:52 | P.RH.PN ---
Estimated Length of Stay: 15 Expected Discharge Date: 08/10/24 Discharge Disposition Plan: Home Family Support: Yes Intermediate Goal: Mobility, Transfers, Self Care Vital Signs: Last Vital Signs Temp 98.1 F 08/05/24 06:50 Pulse 77 08/05/24 07:52 Resp 18 08/05/24 06:50 BP 110/62 08/05/24 07:52 Pulse Ox 97 08/05/24 06:50 Laboratory: Laboratory Last Values WBC 5.50 thou/uL (4.3-10.9) 08/03/24 05:33 RBC 3.06 M/uL (3.86-4.86) L 08/03/24 05:33 Hgb 8.4 g/dL (12.0-15.0) L 08/03/24 05:33 Hct 25.4 % (36.0-45.0) L 08/03/24 05:33 MCV 83.2 fL (80-100) 08/03/24 05:33 MCH 27.5 pg (27.0-35.0) 08/03/24 05:33 MCHC 33.1 g/dL (32.0-36.0) 08/03/24 05:33 RDW 15.6 % (12.1-15.2) H 08/03/24 05:33 Plt Count 349 thou/uL (152-406) 08/03/24 05:33 MPV 7.5 fL (7.6-11.3) L 08/03/24 05:33 Neutrophils % 63.7 % (41.7-73.7) 08/03/24 05:33 Lymphocytes % 14.0 % (15.3-44.8) L 08/03/24 05:33 Monocytes % 11.5 % (3.3-12.3) 08/03/24 05:33 Eosinophils % 9.6 % (0-4.4) H 08/03/24 05:33 Basophils % 1.2 % (0-1.3) 08/03/24 05:33 Absolute Neutrophils 3.5 K/uL (1.8-8.0) 08/03/24 05:33 Absolute Lymphocytes 0.8 K/uL (0.7-4.9) 08/03/24 05:33 Absolute Monocytes 0.6 K/uL (0.1-1.3) 08/03/24 05:33 Absolute Eosinophils 0.5 K/uL (0-0.5) 08/03/24 05:33 Absolute Basophils 0.1 K/uL (0-0.5) 08/03/24 05:33 Sodium 143 mEq/L (136-145) 08/03/24 05:33 Potassium 3.7 mEq/L (3.5-5.1) 08/03/24 05:33 Chloride 112 mEq/L (98-107) H 08/03/24 05:33 Carbon Dioxide 29 mEq/L (21-32) 08/03/24 05:33 Anion Gap 5.7 mEq/L (5.0-15.0) 08/03/24 05:33 BUN 20 mg/dL (7-18) H 08/03/24 05:33 Creatinine 0.67 mg/dL (0.55-1.02) 08/03/24 05:33 Est GFR (CKD-EPI) 91 ml/min (=/>90) 08/03/24 05:33 Glucose 85 mg/dL (74-106) 08/03/24 05:33 Calcium 8.3 mg/dL (8.5-10.1) L 08/03/24 05:33 Magnesium 2.2 mg/dL (1.6-2.4) 08/03/24 05:33 Albumin 2.2 g/dL (3.4-5.0) L 08/03/24 05:33 Prealbumin 14.6 mg/dL (20-40) L 08/03/24 05:33 Urine Color Yellow (Yellow) 07/31/24 08:20 Urine Clarity Clear (Clear) 07/31/24 08:20 Urine pH 7.0 (5.0-7.0) 07/31/24 08:20 Ur Specific [place] 1.029 (1.005-1.030) 07/31/24 08:20 Glucose (UA)(Auto) Negative (Negative) 07/31/24 08:20 Urine Ketones Negative (Negative) 07/31/24 08:20 Urine Blood Negative (Negative) 07/31/24 08:20 Urine Nitrite Negative (Negative) 07/31/24 08:20 Urine Bilirubin Negative (Negative) 07/31/24 08:20 Urine Urobilinogen Normal (Normal) 07/31/24 08:20 Ur Leukocyte Esterase Negative Lavinia/uL (Negative) 07/31/24 08:20 Urine RBC None seen /HPF (None Seen) 07/31/24 08:20 Urine WBC <5 /HPF (<5) 07/31/24 08:20 Ur Squamous Epith Cells <5 /HPF (None Seen) 07/31/24 08:20 Urine Bacteria None seen /HPF (<20) 07/31/24 08:20 Urine Yeast (Budding) Trace /HPF (None Seen) H 07/31/24 08:20 Urine Culture Reflexed Not needed 07/31/24 08:20 Urine Total Protein Trace (Negative) H 07/31/24 08:20 Weight: 121 lb 3.2 oz Wound Present: Yes Closed Surgical Incision Present: No Negative Pressure Wound Therapy Present: No Physician Update: Labs reviewed and are stable. Pain is managed in the left lower extremity. She has home O2 with mild SOB. SBA for bed mobility, transfers, RW 50' with min assist. Stairs 3 up and 2 down. WC 250' independently. With OT met all goals. Only sponge bath at home. She is independent with her ADLs. Summary: Patient's care plan and long term care social worker goals have been reviewed and revised as necessary. Please see the Rehabilitation Signature page for all necessary signatures.
[2024-08-06 06:44] VITALS: BP 104/58; TEMP 97.2
== END 2024-08-06 12:50 | disposition home health service (06) | DRG 948 ==
LOC: 5TH 09:40
PROVIDERS: ADMIT Psychiatry & Neurology Neurology with Special Qualifications in Child Neurology; ATTEND Psychiatry & Neurology Neurology with Special Qualifications in Child Neurology
DX: R53.81 Other malaise (principal); L03.116 Cellulitis of left lower limb; I51.81 Takotsubo syndrome; E46 Unspecified protein-calorie malnutrition; Z68.1 Body mass index [BMI] 19.9 or less, adult; Z87.891 Personal history of nicotine dependence; J44.9 Chronic obstructive pulmonary disease, unspecified; I87.2 Venous insufficiency (chronic) (peripheral); I70.91 Generalized atherosclerosis; E03.9 Hypothyroidism, unspecified; E87.6 Hypokalemia; I10 Essential (primary) hypertension; I48.91 Unspecified atrial fibrillation
CPT/HCPCS: 36415; 80048; 81001; 82040; 83735; 84134; 85025; 87086; 87088; 93970; 94010; 94640; 97110; 97116; 97163; 97165; 97530; 97542; J7613; J7644

== ENCOUNTER → 2024-09-16 | Day surgery (SDC) | payer OTHER ==
[~2024-09-16] MED LIST: COLLAGENASE 30 GM OINTMENT TOP ONE; FENTANYL CITR 100 MCG/2 ML ONE; KETOROLAC 30 MG/ML INJ ONE; LIDOCAINE 2% MPF 5 ML VIAL ONE; LIDOCAINE HCL/EPINEPHRINE 20 ML MDV ONE; MIDAZOLAM HCL 2 MG/2 ML INJ ONE; ONDANSETRON 4 MG/2 ML VIAL ONE; ROCURONIUM 50 MG/5 ML VIAL IV ONE; dexAMETHasone 10 MG/ML VIAL ONE; propofoL 200 MG/20 ML VIAL IV ONE
[2024-09-16 09:11] LABS: Absolute Basophils 0.1 K/uL (0-0.5); Absolute Eosinophils 0.6 K/uL (0-0.5); Absolute Lymphocytes (CBC) 0.7 K/uL (0.7-4.9); Absolute Monocytes 0.9 K/uL (0.1-1.3); Absolute Neutrophil 5.9 K/uL (1.8-8.0); Basophils % 1.2 % (0-1.3); Eosinophils % 6.9 % (0-4.4); Hematocrit 32.4 % (36.0-45.0); Hemoglobin 10.4 g/dL (12.0-15.0); Lymphocytes % 8.1 % (15.3-44.8); MCH 26.4 pg (27.0-35.0); MCV 82.5 fL (80-100); MPV 7.3 fL (7.6-11.3); Monocytes % 11.4 % (3.3-12.3); Neutrophils % 72.4 % (41.7-73.7); Nucleated Red Blood Cells % 0.1 % (0-0); Platelets 416 thou/uL (152-406); RBC Red Blood Cell Count 3.93 M/uL (3.86-4.86); Red Cell Distribution Width 18.9 % (12.1-15.2)
[2024-09-16 09:19] LABS: PT Prothrombin Time 13.7 SECONDS (10-13.0); PTT, Activated Partial Thromb 30.4 SECONDS (27.2-37.4); Protime INR 1.21
[2024-09-16 09:29] LABS: Anion Gap 3.5 mEq/L (5.0-15.0); Potassium 3.5 mEq/L (3.5-5.1)
[2024-09-16] MEDS: Ringers Lactate 1,000 ML IV ONE (09:45)
[2024-09-16] MEDS: CEFAZOLIN SODIUM 2 GM/VIAL ONE (11:37)
[2024-09-16] MEDS: LIDOCAINE JELLY 2% 5 ML SYRINGE TOP ONE (12:05)
--- NOTE | 2024-09-16 12:27 | P.OP ---
Preoperative diagnosis: Bilateral Lower Extremity Wounds Postoperative diagnosis: Bilateral Lower Extremity Wounds Primary procedure: Debridement of Bilateral Lower Extremity Wounds Secondary procedure: Pulse Lavage Anesthesia: MAC + Local Estimated blood loss: <5cc Specimen: Cultures, Debridement Tissue Findings: ~Multiple complex irregular wounds Transferred to: Recovery Room Condition: Good
--- NOTE | 2024-09-16 12:50 | OP ---
Date of Procedure: 09/16/2024 Surgeon: Rajinder Goodman MD, Preoperative Diagnosis: Bilateral lower extremity wounds. Postoperative Diagnosis: Bilateral lower extremity wounds. Procedures Performed: Debridement of bilateral lower extremity wounds with secondary procedure, puls e lavage of bilateral lower extremity wounds. Anesthesia: MAC with local, 2% lidocaine jelly. Estimated Blood Loss: 5 cc. Specimens: Culture sent for both aerobic and anaerobic speciation of debridement tissue. Findings: Multiple complex irregular wounds. The dorsal foot wounds were approximately 40 to 42 squ are cm. The right calf/medial wound was approximately 30 square cm extending to the web spaces of th e toes. These were stage I and stage II. Disposition: The patient was transferred to recovery room in good condition. Procedure In Detail: After informed consent was obtained, the patient was brought to the operating r oom, prepped and draped in the usual sterile fashion and after adequate anesthesia achieved with MAC, I applied an additional layer of 2% lidocaine topical jelly and allowed this to sit on the wounds fo r an appropriate period of time. After this was performed, I proceeded to curette the complex wounds , which were stage I and stage II with significant slough fibrinous buildup. The patient continued t o show signs of some discomfort during the procedure, however, is able to complete this portion of th e procedure. Culture sent for both aerobic and anaerobic speciation from the debridement tissue at t his point. I then pulse lavaged all wounds until completely clear and then Santyl with sterile dress ings and then wrapped with Kerlix and Geoff bandage for appropriate compression. The patient tolerated the procedure well without incident or complication and transferred to PACU in good condition. All counts were correct at the end of the case. TK/MODL Voice ID: [id number] Report ID: [id number]
[2024-09-16 13:11] VITALS: O2SAT 95
[2024-09-16 14:33] VITALS: BP 116/68; TEMP 97.3
== END | disposition home or self-care (01) ==
LOC: OR 08:55
PROVIDERS: ATTEND Surgery
PROC: 0JDN0ZZ Extraction of Right Lower Leg Subcutaneous Tissue and Fascia, Open Approach (ICD-10-PCS; 2024-09-16)
PROC: 0JDQ0ZZ Extraction of Right Foot Subcutaneous Tissue and Fascia, Open Approach (ICD-10-PCS; 2024-09-16)
PROC: 0JDR0ZZ Extraction of Left Foot Subcutaneous Tissue and Fascia, Open Approach (ICD-10-PCS; principal; 2024-09-16 11:15)
DX: L97.512 Non-pressure chronic ulcer of other part of right foot with fat layer exposed (principal); L97.322 Non-pressure chronic ulcer of left ankle with fat layer exposed; L97.212 Non-pressure chronic ulcer of right calf with fat layer exposed
CPT/HCPCS: 87070; 85025; 80048; 36415; 87205; 85610; 85730; 87077 ×2; 87186 ×2; 87176; 11042; 11045 ×3; J3590; J2704; J2003; J1100; J2405; J7120; J2250; J3010

== ENCOUNTER 2024-09-18 23:05 | Emergency (ER) | payer OTHER ==
[2024-09-18 23:38] LABS: Absolute Basophils 0.1 K/uL (0-0.5); Absolute Lymphocytes (CBC) 0.9 K/uL (0.7-4.9); Absolute Monocytes 1.7 K/uL (0.1-1.3); Absolute Neutrophil 7.7 K/uL (1.8-8.0); Eosinophils % 0.4 % (0-4.4); Hematocrit 29.6 % (36.0-45.0); Hemoglobin 9.3 g/dL (12.0-15.0); Lymphocytes % 8.9 % (15.3-44.8); MCH 25.4 pg (27.0-35.0); MCHC 31.4 g/dL (32.0-36.0); MPV 7.4 fL (7.6-11.3); Monocytes % 16.2 % (3.3-12.3); Neutrophils % 73.5 % (41.7-73.7); Nucleated Red Blood Cells % 0.4 % (0-0); Platelets 430 thou/uL (152-406); RBC Red Blood Cell Count 3.66 M/uL (3.86-4.86); Red Cell Distribution Width 19.1 % (12.1-15.2)
[2024-09-18] MEDS ORDERED: ALBUTEROL 2.5 MG/3 ML NEB SOL ONE (23:43)
[2024-09-18] MEDS ORDERED: ACETAMINOPHEN 500 MG TAB ONE (23:44)
[2024-09-18] MEDS ORDERED: IPRATROPIUM BROM 0.5MG/2.5ML ONE (23:44)
[2024-09-18] MEDS ORDERED: METHYLPREDNISOLONE 125 MG INJ ONE (23:44)
[2024-09-18] MEDS ORDERED: NA CHLORIDE 0.9% 250 ML ONE (23:44)
[2024-09-18] MEDS ORDERED: VANCOMYCIN 1 GM/VIAL ONE (23:44)
[2024-09-18] MEDS ORDERED: NA CHLORIDE 0.9% 100 ML ONE (23:45)
[2024-09-18] MEDS ORDERED: CEFEPIME 1 GM/VIAL ONE (23:45)
[2024-09-18] MEDS ORDERED: NA CHLORIDE 0.9% 1,000 ML ONE (23:46)
[2024-09-18 23:48] LABS: PTT, Activated Partial Thromb 29.3 SECONDS (27.2-37.4); Protime INR 1.33
[2024-09-19 00:02] LABS: Albumin 2.7 g/dL (3.4-5.0); Albumin/Globulin Ratio 0.6 (1.1-1.8); Anion Gap 5.6 mEq/L (5.0-15.0); Bilirubin Total 0.4 mg/dL (0.2-1.0); Globulin 4.2 g/dL (2.3-3.5); Potassium 4.6 mEq/L (3.5-5.1); Protein, Total 6.9 g/dL (6.4-8.2)
[2024-09-19 00:11] LABS: Troponin High Sensitivity 1725.1 pg/mL (<58.9)
[2024-09-19 00:18] LABS: Blood O2 Saturation 97.3 % (92-98.5)
[2024-09-19 00:19] LABS: Arterial Blood Carboxyhemoglob 1.2 % (0-1.5); Blood Gas THB 9.2 g/dl (12-18)
[2024-09-19] MEDS ORDERED: ONDANSETRON 4 MG/2 ML VIAL ONE (01:54)
[2024-09-19] MEDS ORDERED: MORPHINE 2 MG/ML SYR ONE (01:54)
[2024-09-19] MEDS ORDERED: HEPARIN 5000 UNIT/ML 1 ML VIAL ONE (02:49)
[2024-09-19] MEDS ORDERED: HEPARIN/D5W 25,000 UNIT/500 ML BAG IV ONE (02:50)
--- NOTE | 2024-09-19 03:49 | RAD REPORT ---
ADDENDUM #1 Urgent finding reported to Dr. Clem Joseph at 09/19/2024 1:06 AM CDT Electronically signed by: Marc Bass DO 09/19/2024 03:08 AM CDT 4ZDM End of Addendum EXAM DESCRIPTION: CT of the head without contrast CLINICAL HISTORY: AMS COMPARISON: 02/19/2023 TECHNIQUE: Axial CT of the head obtained from the skull apex to the skull base without contrast. This exam was performed according to our departmental dose-optimization program, which includes automated exposure control, adjustment of the mA and/or kV according to patient size and/or use of it erative reconstruction technique. FINDINGS: No acute intracranial hemorrhage identified. Possible loss of henry-white matter differentiation in th e left MCA distribution. No mass effect or midline shift at this time. The ventricular system and sulcal spaces are mildly enlarged compatible with mild cerebral atrophy. Scattered areas of hypoden sity throughout the supratentorial white matter are nonspecific and may be related to chronic small vessel ischemic change. The visualized paranasal sinuses and the mastoids are clear. No skull fracture identified. Visualiz ed orbits and globes are unremarkable. Atherosclerotic calcification of the intracranial internal carotid and vertebral arteries. IMPRESSION: 1. Possible loss of henry-white matter differentiation in the left MCA distribution. This could be s een with acute ischemic change. No mass effect or midline shift at this time. MRI could provide additional characterization. 2. No acute intracranial hemorrhage. Electronically signed by: Marc Bass DO 09/19/2024 01:05 AM CDT 4ZDM Due to temporary technical issues with the PACS/[employer] reporting system, reports are being jennifer d by the in-house radiologist without review as a courtesy to ensure prompt reporting the interpreting radiologist is fully responsible for the content of the report. Transcribed Date/Time: 09/19/2024 3:49 AM
--- NOTE | 2024-09-19 03:50 | RAD REPORT ---
ADDENDUM #1 Urgent finding reported to Dr. Clem Joseph at 09/19/2024 3:04 AM CDT Electronically signed by: Marc Bass DO 09/19/2024 03:07 AM CDT RP 4ZDM End of Addendum EXAM DESCRIPTION: Head angio (accession [id number]), Neck Angio (accession [id number]) CLINICAL HISTORY: 74 years, Female, sub acute stroke COMPARISON: 09/18/2024 TECHNIQUE: Axial CTA images of the head and neck obtained following the uncomplicated intravenous adm inistration of iodinated contrast. 3-D/MIP reformatted images available. This exam was performed according to our departmental dose-optimization program, which includes automated exposure control, a djustment of the mA and/or kV according to patient size and/or use of iterative reconstruction technique. FINDINGS: CTA head: In the anterior circulation, the intracranial internal carotid arteries have normal course and calibe r. Mild nonflow atherosclerotic plaque of the paraclinoid intracranial internal carotid arteries. The internal carotid arteries bifurcate into patent A1 and M1 segments of the anterior and middle cer ebral arteries respectively. There is a segment filling defect of an M3 branches supplying the left temporal lobe best seen on image #172, series #412. In the posterior circulation, the intracranial vertebral arteries combine to form a patent basilar ar emmanuel. The basilar artery bifurcates into patent P1 segments of the posterior cerebral artery. No evidence of stenosis, aneurysm, occlusion, or dissection in the posterior circulation. Redemonstrated wedge-shaped hypodensity in the posterior left MCA distribution compatible with likely subacute infarction.. No acute abnormality of the osseous calvarium. Paranasal sinuses and mastoid air cells are well aerated. CTA NECK: The aortic arch has normal anatomic configuration. The origin of the great vessels are patent. The right common carotid artery is patent and bifurcates into patent internal and external carotid ar teries. Coarse atherosclerotic plaque at the right carotid bulb and proximal right internal carotid artery producing approximately 20% stenosis by NASCET criteria. No evidence of occlusion or dissectio n. The left common carotid artery is patent and bifurcates into patent internal and external carotid art eries. Mild atherosclerotic plaque at the left carotid bulb and proximal left internal carotid artery. 0% stenosis by NASCET criteria. No evidence of occlusion or dissection. The cervical vertebral arteries are patent throughout their course. Dominant left vertebral artery. N o evidence of occlusion, stenosis, or dissection. No definite acute abnormalities in the neck soft tissues. No apical pneumothorax. No acute osseous ab normalities. Moderate to severe multilevel loss of intervertebral disc height with endplate spondylosis, facet arthropathy, and uncovertebral spurring. IMPRESSION: 1. 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 2. Redemonstrated wedge-shaped hypodensity in the posterior left MCA distribution compatible with l ikely acute/subacute infarction. 3. No evidence of flow-limiting stenosis or occlusion of the cervical internal carotid or vertebral arteries. Electronically signed by: Marc Bass DO 09/19/2024 03:02 AM CDT RP 4ZDM Due to temporary technical issues with the PACS/[employer] reporting system, reports are being jennifer d by the in-house radiologist without review as a courtesy to ensure prompt reporting the interpreting radiologist is fully responsible for the content of the report. Transcribed Date/Time: 09/19/2024 3:50 AM
--- NOTE | 2024-09-19 03:50 | RAD REPORT ---
EXAM DESCRIPTION: Chest Abd Pelvis Wo Con CLINICAL HISTORY: CHEST PAIN COMPARISON: 03/22/2024 and 11/19/2023 TECHNIQUE: CT of the chest, abdomen and pelvis obtained without contrast. This exam was performed acc ording to our departmental dose-optimization program, which includes automated exposure control, adjustment of the mA and/or kV according to patient size and/or use of iterative reconstruction techn ique. FINDINGS: Chest: Thyroid: No abnormalities of the visualized thyroid. Great Vessels: Great vessels have normal anatomic configuration. Thoracic Aorta: Atherosclerotic calcification of thoracic aorta. Pulmonary arteries: Dilation the main pulmonary artery. Heart: Cardiomegaly with coronary artery atherosclerosis. Lymph Nodes: No enlarged mediastinal lymph nodes identified. Esophagus: Large hiatal hernia. Other: No additional findings. Lungs: Centrilobular emphysematous change. Bibasilar compressive atelectasis. Pleura: Small pleural effusions. No pneumothorax. Trachea/Airways: No abnormalities of the visualized trachea or airways. Abdomen: Liver: The liver has normal size and density. Gallbladder: No calcified gallstones. Spleen, Pancreas, and Adrenal Glands: The spleen, pancreas, and adrenal glands are unremarkable. Kidneys: No hydronephrosis or obstructing ureteral calculus. Ptosis of the right kidney. Vasculature: Aortoiliac atherosclerosis. IVC is unremarkable. The portal vein is patent. The proxim al visceral and renal arteries are patent. Stomach: The stomach and duodenum have normal course. Other: No free intraperitoneal air. No free fluid or lymphadenopathy. Mild body wall anasarca. Pelvis: Bladder: Urinary bladder is unremarkable. Bowel: No dilated loops of large or small bowel. Scattered diverticula of the colon. Moderate amoun t of stool. Appendix: Normal appendix. Pelvis: Prior hysterectomy. Small fluid-containing right inguinal hernia. Bones: Bilateral proximal femoral fixation with possible age-indeterminate re-fracture of the left pr oximal femur. S-shaped scoliotic curvature of the spine.. Multilevel compression deformities throughout the visualized thoracic and lumbar spine are stable. Osteopenia. Severe loss of interverte bral disc height. Remote sternal fracture is stable. Osteoarthritic change of the hips. IMPRESSION: 1. Small bilateral pleural effusions with bibasilar compressive atelectasis. 2. Large hiatal hernia. 3. Cardiomegaly with coronary artery atherosclerosis. 4. Centrilobular emphysematous change. 5. Enlargement of the main pulmonary artery. This could be seen with pulmonary arterial hypertensio n. 6. Diverticulosis without evidence of acute diverticulitis. 7. Small fluid-containing right inguinal hernia. 8. Possible age-indeterminate Vann[place] fracture of the left proximal femur. Correlation for point tende rness at this location recommended. Electronically signed by: Marc Bass DO 09/19/2024 01:18 AM CDT RP [id number] Due to temporary technical issues with the [employer]ACS[employer] reporting system, reports are being jennifer d by the in-house radiologist without review as a courtesy to ensure prompt reporting the interpreting radiologist is fully responsible for the content of the report. Transcribed Date/Time: 09/19/2024 3:49 AM
[2024-09-19 03:57] LABS: Specific Gravity > 1.030 (1.005-1.030); Sqamous Epithelial <5 /HPF (None Seen); Urine Bacteria <20 /HPF (<20); Urine Bilirubin NEGATIVE (Negative); Urine Blood Negative (Negative); Urine Clarity Clear (Clear); Urine Color Yellow (Yellow); Urine Culture Reflex Order NOT NEEDED; Urine Glucose NEGATIVE (Negative); Urine Ketones NEGATIVE (Negative); Urine Microscopic Reflex YN ORDER UMIC; Urine Mucus Slight /HPF (None Seen); Urine Nitrite NEGATIVE (Negative); Urine Protein 1+ (Negative); Urine RBC None Seen /HPF (None Seen); Urine Urobilinogen Normal (Normal); Urine WBC <5 /HPF (<5); Urine pH 5.5 (5.0-7.0)
--- NOTE | 2024-09-19 04:05 | EDPHYS ---
Physician Documentation [facility] Name: Elena Bruno Age: 74 yrs Sex: Female : 1950 Arrival Date: 09/18/2024 Time: 23:05 Bed 20 Private MD: ED Physician Clem Joseph HPI: 09/18 23:11 This 74 yrs old Female presents to ER via Unassigned with complaints of AMS , sp4 hypoxemia . 09/19 04:09 74-year-old female arrives with altered mental status and hypoxemia. . No reported sp4 fever. On evaluation patient is able to follow basic commands but is not able to answer basic questions. Last known well as reported by patient's natural fabricator 09/18/2024 at some time in the morning. After that patient was found at home obtunded with out her oxygen. EMS reported patient had oxygen saturation in the 70s. Oxygenation improved with a high flow nasal cannula . Historical: - Allergies: 09/18 23:10 No Known Allergies; rg5 - PMHx: 23:10 Chronic obstructive lung disease; Hypertensive disorder; Hypothyroidism; Myocardial rg5 infarction; - PSHx: 23:10 Appendectomy; Hip surgery; Uterus surgery; rg5 - Immunization history:: Adult Immunizations unknown. - Infectious Disease History:: Denies. - Social history:: Smoking status: unknown. - Family history:: not pertinent. ROS: 09/19 04:11 Constitutional: Negative for fever, chills, and weight loss, positive for mental status sp4 alteration, positive for slurred speech, positive for hypoxemia All other systems are negative, Exam: 03:49 Constitutional: Frail elderly female no acute distress but ill-appearing Head/Face: sp4 Normocephalic, atraumatic. Eyes: Pupils equal round and reactive to light, extra-ocular motions intact. Lids and lashes normal. Conjunctiva and sclera are not injected. Cornea within normal limits. Periorbital areas with no swelling, redness, or edema. ENT: Nares patent. No nasal discharge, no septal abnormalities noted. Tympanic membranes are normal and external auditory canals are clear. Oropharynx with no redness, swelling, or masses, exudates, or evidence of obstruction, uvula midline. Mucous membranes moist. Neck: Trachea midline, no thyromegaly or masses palpated, and no cervical lymphadenopathy. Supple, full range of motion without nuchal rigidity, or vertebral point tenderness. Chest/axilla: Normal chest wall appearance and motion. Nontender with no deformity. No lesions are appreciated. Cardiovascular: Regular rate and rhythm with a normal S1 and S2. No gallops, murmurs, or rubs. Normal PMI, no JVD. No pulse deficits. Respiratory: Lungs have equal breath sounds bilaterally, clear to auscultation and percussion. No rales, rhonchi or wheezes noted. No increased work of breathing, no retractions or nasal flaring. Abdomen/GI: Soft, with normal bowel sounds. No distension or tympany. No guarding or rebound. No evidence of tenderness throughout. Back: No spinal tenderness. No costovertebral tenderness. Female : Normal external genitalia. Incontinent of bowel and bladder Skin: Warm, dry with normal turgor. Normal color with no rashes, no lesions, and no evidence of cellulitis. MS/ Extremity: Pulses equal, no cyanosis. Neurovascular intact. Full, normal range of motion. Neuro: Awake , mild to moderate aphasia and dysarthria, moves all extremities, no signs of lateralizing deficit, oriented x 1 03:59 ECG was reviewed by the Attending Physician. EKG 2334 sinus rhythm with PACs rate 85 sp4 Vital Signs: 09/18 23:10 BP 133 / 89; Pulse 83; Resp 17; Temp 97.9(O); Pulse Ox 96% on 4 lpm NC; Weight 58.06 rg5 kg; Height 4 ft. 11 in. ; Pain 10/15; 09/19 00:25 BP 133 / 89; Pulse 86; Resp 17; Pulse Ox 100% on 4 lpm NC; rg5 01:22 BP 136 / 81; Pulse 85; Resp 17; Pulse Ox 97% on 4 lpm NC; rg5 02:45 BP 137 / 84; Pulse 88; Resp 18; Pulse Ox 96% on 4 lpm NC; rg5 03:45 BP 111 / 74; Pulse 108; Resp 18; Pulse Ox 96% on 4 lpm NC; rg5 04:30 BP 118 / 77; Pulse 101; Resp 18; Pulse Ox 96% on 4 lpm NC; rg5 09/18 23:10 Body Mass Index 25.85 (58.06 kg, 149.86 cm) rg5 09/18 23:10 Pain Scale: Adult rg5 NIH Stroke Scale Scores: 03:49 NIHSS Score: 7 sp4 [place] Coma Score: 03:49 Eye Response: spontaneous(4). Motor Response: obeys commands(6). Verbal Response: sp4 inappropriate words(3). Total: 13. MDM: 09/18 23:13 Medical Screening Exam initiated sp4 09/19 02:40 ED course: IMPRESSION: 1. Small bilateral pleural effusions with bibasilar compressive sp4 atelectasis. 2. Large hiatal hernia. 3. Cardiomegaly with coronary artery atherosclerosis. 4. Centrilobular emphysematous change. 5. Enlargement of the main pulmonary artery. This could be seen with pulmonary arterial hypertension. 6. Diverticulosis without evidence of acute diverticulitis. 7. Small fluid-containing right inguinal hernia. 8. Possible age-indeterminate Vannessa fracture of the left proximal femur. Correlation for point tenderness at this location recommended. Electronically signed by: Marc Bass DO 09/19/2024 01:18 AM. ED course: CT - FINDINGS: No acute intracranial hemorrhage identified. Possible loss of henry-white matter differentiation in the left MCA distribution. No mass effect or midline shift at this time. The ventricular system and sulcal spaces are mildly enlarged compatible with mild cerebral atrophy. Scattered areas of hypodensity throughout the supratentorial white matter are nonspecific and may be related to chronic small vessel ischemic change. The visualized paranasal sinuses and the mastoids are clear. No skull fracture identified. Visualized orbits and globes are unremarkable. Atherosclerotic calcification of the intracranial internal carotid and vertebral arteries. IMPRESSION: 1. Possible loss of henry-white matter differentiation in the left MCA distribution. This could be seen with acute ischemic change. No mass effect or midline shift at this time. MRI could provide additional characterization. 2. No acute intracranial hemorrhage. . 03:48 ED course: IMPRESSION: 1. Findings compatible with short segment thromboembolic sp4 occlusion of an M3 branch supplying the left temporal lobe best seen on image #172, series 412. 2. Redemonstrated wedge-shaped hypodensity in the posterior left MCA distribution compatible with likely acute/subacute infarction. 3. No evidence of flow-limiting stenosis or occlusion of the cervical internal carotid or vertebral arteries. Electronically signed by: Marc Bass DO 09/19/2024 03:02 AM . ED course: CT impression - IMPRESSION: 1. Findings compatible with short segment thromboembolic occlusion of an M3 branch supplying the left temporal lobe best seen on image #172, series 412. 2. Redemonstrated wedge-shaped hypodensity in the posterior left MCA distribution compatible with likely acute/subacute infarction. 3. No evidence of flow-limiting stenosis or occlusion of the cervical internal carotid or vertebral arteries.. 04:04 Differential Diagnosis altered mental status, sepsis, flu, CVA . Data reviewed: vital [facility] signs, nurses notes, EMS record, lab test result(s), EKG, radiologic studies, CT scan, doppler, plain films. Consideration of Admission/Observation Patient was admitted/placed on observation. Escalation of care including admission/observation considered. Management of patient was discussed with the following: Relocation Associate: Neurology and ER Attendings . ED course: Stable for aeromedical transport. 09/18 23:12 Order name: Blood Culture Adult (2) [facility] 09/18 23:12 Order name: CBC with Diff; Complete Time: 01:48 [facility] 09/18 23:12 Order name: CMP; Complete Time: 01:48 [facility] 09/18 23:12 Order name: Lactate w/ 2H reflex if indic.; Complete Time: 01:48 [facility] 09/18 23:12 Order name: Protime (+inr); Complete Time: 01:48 [facility] 09/18 23:12 Order name: Ptt, Activated; Complete Time: 01:48 [facility] 09/18 23:12 Order name: Urinalysis w/ reflexes [facility] 09/18 23:12 Order name: ABG; Complete Time: 01:48 [facility] 09/18 23:12 Order name: Troponin High Sensitivity; Complete Time: 01:48 [facility] 09/18 23:12 Order name: BNP; Complete Time: 01:48 [facility] 09/18 23:32 Order name: Glucose, Ancillary Testing; Complete Time: 01:48 [facility] 09/18 23:11 Order name: CT Head Brain wo Cont [facility] 09/18 23:11 Order name: CT Chest Abdomen Pelvis W/O Contrast 4 09/19 01:49 Order name: CT Head Angio [facility] 09/19 01:49 Order name: CT Neck Angio [facility] 09/18 23:12 Order name: Accucheck; Complete Time: 23:22 4 09/18 23:12 Order name: Cardiac monitoring; Complete Time: 23:22 4 09/18 23:12 Order name: Cath; Complete Time: 03:46 4 09/18 23:12 Order name: EKG - Nurse/Tech; Complete Time: 00:07 4 09/18 23:12 Order name: IV Saline Lock - Large Bore; Complete Time: 23:22 4 09/18 23:12 Order name: Labs collected and sent; Complete Time: 23:51 4 09/18 23:12 Order name: O2 Per Protocol; Complete Time: 23:51 sp4 09/18 23:12 Order name: O2 Sat Monitoring; Complete Time: 23:22 [facility] 09/18 23:12 Order name: Vital Signs; Complete Time: 00:07 4 EC/13 23:34 Rate is 85 beats/min. Rhythm is irregular, Normal Sinus Rhythm with PACs. QRS [place] is sp4 Normal. [place] interval is normal. QRS interval is normal. QT interval is normal. No Q waves. T waves are Normal. No ST changes noted. Clinical impression: No evidence of ischemia. Interpreted by me. Reviewed by me. Administered Medications: 23:15 Drug: NS 0.9% IV (30 ml/kg) 30 ml/kg IV at bolus once; Sepsis Protocol; to be given as rg5 a bolus over 90 minutes Route: IV; Rate: bolus; Site: right forearm; 09/19 04:00 Follow up: IV Status: Completed infusion; IV Intake: 1000ml [facility] 09/18 23:30 Drug: Albuterol Inhalation 2.5 mg Inhalation every 20 minutes x3 Route: Inhalation; 23:30 Drug: Ipratropium Inhalation Aerosol 0.5 mg Inhalation once; Every 20 min for a total rg5 of 3 treatments x3 Route: Inhalation; 23:35 Drug: Acetaminophen PO 1000 mg PO once Route: PO; 09/19 01:10 Follow up: Response: No adverse reaction; Pain is decreased [facility] 09/18 23:50 Drug: MethylPrednisoLONE IVP 125 mg IVP once Route: IVP; Site: right forearm; 09/19 00:51 Follow up: Response: No adverse reaction [facility] 09/18 23:50 Drug: Albuterol Inhalation 2.5 mg Inhalation every 20 minutes x3 Route: Inhalation; rg5 23:50 Drug: Ipratropium Inhalation Aerosol 0.5 mg Inhalation once; Every 20 min for a total rg5 of 3 treatments x3 Route: Inhalation; 09/19 00:03 Drug: Albuterol Inhalation 2.5 mg Inhalation every 20 minutes x3 Route: Inhalation; rg5 00:03 Drug: Ipratropium Inhalation Aerosol 0.5 mg Inhalation once; Every 20 min for a total rg5 of 3 treatments x3 Route: Inhalation; 00:08 Drug: Cefepime IVPB 1 grams IVPB at 200 ml/hr once over 30 mins; (mix in NS 100 mL) rg5 Route: IVPB; Rate: 200 ml/hr; Infused Over: 30 mins; Site: right forearm; 00:40 Follow up: IV Status: Completed infusion; IV Intake: 100ml rg5 00:52 Drug: vancoMYCIN IVPB 1 grams IVPB once over 2 hrs Route: IVPB; Infused Over: 2 hrs; rg5 Site: right forearm; 03:00 Follow up: IV Status: Completed infusion; IV Intake: 250ml rg5 02:01 Drug: Ondansetron IVP 4 mg IVP once; over 2 minutes Route: IVP; Site: right forearm; rg5 03:02 Follow up: Response: No adverse reaction rg5 02:02 Drug: morphine IVP or IV 2 mg IVP once over 4 mins Route: IVP; Infused Over: 4 mins; rg5 Site: right forearm; 03:02 Follow up: Response: No adverse reaction; Pain is decreased rg5 02:56 Drug: Heparin (AK Drip) 12 units/kg/hr - ([place] [address] units, D5W IV 500 ml) IV at rg5 calculated rate Per protocol; Max initial rate 1000 units/hr {Co-Signature: ha1 (Yuli Hines RN).} Route: IV; Rate: 700 units/hr; Site: right forearm; 04:42 Follow up: IV Status: Infusion continued upon transfer rg5 02:58 Drug: Heparin (AK-Bolus No thrombolytic) - HEParin IVP 60 units/kg IVP once; Max 5000 rg5 units {Co-Signature: rex1 (Yuli Hines RN).} Route: IVP; Site: right forearm; 03:45 Follow up: Response: No adverse reaction rg5 Disposition Summary: 09/19/24 04:04 Transfer Ordered Notes: Transfer Location: [facility] sp4 Reason: Higher level of care sp4 Condition: Stable sp4 Problem: new sp4 Symptoms: have improved sp4 Accepting Physician: [facility] [place]'s attending neurologist(09/19/24 04:45) rg5 Diagnosis - Acute left temporal CVA, Left thromboembolic occlusion of an M3 branch sp4 - NSTEMI , Elevated Troponin , Acute Transaminitis , Acute Hepatitis , COPD sp4 - COPD/ Chronic obstructive pulmonary disease with (acute) exacerbation sp4 Forms: - Medication Reconciliation Form sp4 - SBAR form sp4 Critical care time excluding procedures: 04:00 Critical care time: Bedside Care: 36 minutes, Consultation: 12 minutes, Family sp4 Intervention: 12 minutes. Total time: 60 minutes NIH Stroke Scale - NIH Stroke Score Date: 09/19/2024 Time: 03:49 Total Score = 7 10. Dysarthria (speech clarity - read or repeat words) - 1(Mild to Moderate) 11. Extinction and Inattention (visual/tactile/auditory/spatial/personal) - 0(No abnormality) 1a. Level of Consciousness (LOC) - 1(Not Alert) 1b. Level of Consciousness (LOC) (Month \T\ Age) - 2(Neither) 1c. LOC Commands (Open \T\ Closes Eyes/Cad Application Support Specialist) - 1(One) 2. Best Gaze (Lateral Gaze Paresis) - 0(Normal) 3. Visual Field Loss - 0(No visual loss) 4. Facial Palsy - 0(Normal) 5a. Left Arm: Motor (10-second hold) - 0(No drift) 5b. Right Arm: Motor (10-second hold) - 0(No drift) 6a. Left Leg: Motor (5-second hold - always test supine) - 0(No drift) 6b. Right Leg: Motor (5-second hold - always test supine) - 0(No drift) 7. Limb Ataxia (finger/nose \T\ heel/lan - test with eyes open) - 0(Absent) 8. Sensory Loss (pinprick arms/legs/face) - 0(Normal) 9. Best Language: Aphasia (description/naming/reading) - 2(Severe aphasia) Initials: sp4 Signatures: Dispatcher [employer] EDMS Potepalov, Clem, MD MD sp4 Aron Lloyd RN RN rg5 Yuli Hines RN ha1 Corrections: (The following items were deleted from the chart) 09/18 23:12 23:12 Arterial Blood Gas+RC.LAB.BRZ ordered. EDMS EDMS : 23:13 Troponin High Sensitivity+C.LAB.BRZ ordered. EDMS EDMS : 23:13 PROBNP+C.LAB.BRZ ordered. EDMS EDMS 09/19 04:45 04:04 [facility]'s attending neurologist sp4 rg5
--- NOTE | 2024-09-19 04:05 | ER ---
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 23:10 Coronavirus screen: Client denies travel out of the [place] in the last 14 days. Ebola rg5 Screen: Patient negative for fever greater than or equal to 101.5 degrees Fahrenheit, and additional compatible Ebola Virus Disease symptoms Patient denies exposure to infectious person. Initial Sepsis Screen: Does the patient meet any 2 criteria? No. Patient's initial sepsis screen is negative. Does the patient have a suspected source of infection? No. Patient's initial sepsis screen is negative. Risk Assessment: Do you want to hurt yourself or someone else? Patient reports no desire to harm self or others. Onset of symptoms was September 18, 2024 at 22:00. Care prior to arrival: Medication(s) given: IV initiated. 20 GA, in the right forearm, Glucose check: 112. 23:10 Method Of Arrival: EMS: [facility] rg5 23:10 Acuity: FABBY 3 rg5 Triage Assessment: 23:10 General: Appears uncomfortable, Behavior is calm, cooperative, appropriate for age. rg5 Pain: Complains of pain in left leg. Neuro: Level of Consciousness is awake, alert, obeys commands. Cardiovascular: Denies chest pain, Patient's skin is warm and dry. Respiratory: Airway is patent Respiratory effort is unlabored, Respiratory pattern is regular, symmetrical, Breath sounds are clear. GI: Abdomen is round non-distended. : No signs and/or symptoms were reported regarding the genitourinary system. Derm: Skin is fragile, Skin is dry, Skin is dusky. Musculoskeletal: Circulation, motion, and sensation intact. Range of motion: intact in all extremities. Historical: - Allergies: 23:10 No Known Allergies; rg5 - PMHx: 23:10 Chronic obstructive lung disease; Hypertensive disorder; Hypothyroidism; Myocardial rg5 infarction; - PSHx: 23:10 Appendectomy; Hip surgery; Uterus surgery; rg5 - Immunization history:: Adult Immunizations unknown. - Infectious Disease History:: Denies. - Social history:: Smoking status: unknown. - Family history:: not pertinent. Screenin:10 [facility] ED Fall Risk Assessment (Adult) History of falling in the last 3 months, rg5 including since admission Yes- single mechanical fall (1 pt) Confusion or Disorientation Yes (5 pts) Intoxicated or Sedated No (0 pts) Impaired Gait Yes (1 pt) Mobility Assist Device Used Yes (1 pt) Altered Elimination Yes (1 pt) Score/Fall Risk Level 3 or more points = High Risk Oriented to surroundings, Maintained a safe environment, Educated pt \T\ family on fall prevention, incl call for assistance when getting out of bed, Provided non-skid footwear, Hourly rounding (assess needs \T\ fall precautionary measures) done, Used ambulatory aids as needed (educated on \T\ assisted with). 23:10 Abuse screen: Denies threats or abuse. Nutritional screening: No deficits noted. rg5 Tuberculosis screening: No symptoms or risk factors identified. Assessment: 23:10 Reassessment: see triage assessment. rg5 09/19 00:00 Reassessment: No changes from previously documented assessment. Patient and/or family rg5 updated on plan of care and expected duration. Pain level reassessed. 01:00 Reassessment: No changes from previously documented assessment. Patient and/or family rg5 updated on plan of care and expected duration. Pain level reassessed. 02:16 Reassessment: No changes from previously documented assessment. Patient and/or family rg5 updated on plan of care and expected duration. Pain level reassessed. 03:12 Reassessment: No changes from previously documented assessment. Patient and/or family rg5 updated on plan of care and expected duration. Pain level reassessed. 03:53 Reassessment: LINDA JHONS( brother) [phone]. rg5 04:04 Reassessment: No changes from previously documented assessment. Patient and/or family rg5 updated on plan of care and expected duration. Pain level reassessed. Vital Signs: 09/18 23:10 BP 133 / 89; Pulse 83; Resp 17; Temp 97.9(O); Pulse Ox 96% on 4 lpm NC; Weight 58.06 rg5 kg; Height 4 ft. 11 in. ; Pain 10/15; 09/19 00:25 BP 133 / 89; Pulse 86; Resp 17; Pulse Ox 100% on 4 lpm NC; rg5 01:22 BP 136 / 81; Pulse 85; Resp 17; Pulse Ox 97% on 4 lpm NC; rg5 02:45 BP 137 / 84; Pulse 88; Resp 18; Pulse Ox 96% on 4 lpm NC; rg5 03:45 BP 111 / 74; Pulse 108; Resp 18; Pulse Ox 96% on 4 lpm NC; rg5 04:30 BP 118 / 77; Pulse 101; Resp 18; Pulse Ox 96% on 4 lpm NC; rg5 09/18 23:10 Body Mass Index 25.85 (58.06 kg, 149.86 cm) rg5 09/18 23:10 Pain Scale: Adult rg5 [place] Coma Score: 03:49 Eye Response: spontaneous(4). Motor Response: obeys commands(6). Verbal Response: sp4 inappropriate words(3). Total: 13. NIH Stroke Scale Scores: 03:49 NIHSS Score: 7 sp4 ED Course: 09/18 23:09 Patient arrived in ED. kmf 23:10 Clem Joseph MD is Attending Physician. sp4 23:10 First set of blood cultures drawn by me. vk 23:10 No provider procedures requiring assistance completed. rg5 23:10 Arm band placed on left wrist. EKG completed in triage. Results shown to MD. rg5 23:10 Patient has correct armband on for positive identification. Fall risk band placed. rg5 Placed in gown. Bed in low position. Call light in reach. Side rails up X2. Client placed on continuous cardiac and pulse oximetry monitoring. NIBP monitoring applied. school bus monitor on. Pulse ox on. Door closed. Noise minimized. 23:16 Aron Lloyd, RN is Primary Nurse. rg5 23:20 Second set of blood cultures drawn by me. vk 23:49 Initial lab(s) drawn, by me, sent to lab. vk 23:50 Maintain EMS IV. Dressing intact. Good blood return noted. Site clean \T\ dry. Gauge \T\ vk site: 20G Right forearm . Flushed with 10 mL NS. 23:51 BNP Sent. vk 23:51 Troponin High Sensitivity Sent. vk 23:51 Blood Culture Adult (2) Sent. vk 23:51 CMP Sent. vk 23:51 Lactate w/ 2H reflex if indic. Sent. vk 09/19 00:27 CT Head Brain wo Cont In Process Unspecified. EDMS 00:29 CT Chest Abdomen Pelvis W/O Contrast In Process Unspecified. EDMS 00:38 Triage completed. rg5 02:[address] rg5 02:12 CT Head Angio In Process Unspecified. EDMS 02:12 CT Neck Angio In Process Unspecified. EDMS 02:30 Inserted saline lock: 22 gauge in left hand, using aseptic technique. rg5 03:00 Álvarez cath inserted, using sterile technique, 16 Fr., by co, balloon inflated, to rg5 gravity drainage, urine specimen collected. returned braulio urine. Patient tolerated well. 03:46 initialed transfer with Otilia at [facility]. [facility] 04:29 Patient transferred, IV remains in place. intact, No redness/swelling at site. rg5 04:29 Provided Education on: needs for transfer. rg5 04:[address] Avelar, P \T\ [facility] - [id number]. Accepting admin Otilia Paul - [facility] 0406. Number for nurse to nurse report [phone]. Contacted [facility] \T\ [id number]. ETA 10 mins. Administered Medications: 09/18 23:15 Drug: NS 0.9% IV (30 ml/kg) 30 ml/kg IV at bolus once; Sepsis Protocol; to be given as rg5 a bolus over 90 minutes Route: IV; Rate: bolus; Site: right forearm; 09/19 04:00 Follow up: IV Status: Completed infusion; IV Intake: 1000ml [facility] 09/18 23:30 Drug: Albuterol Inhalation 2.5 mg Inhalation every 20 minutes x3 Route: Inhalation; rg5 23:30 Drug: Ipratropium Inhalation Aerosol 0.5 mg Inhalation once; Every 20 min for a total rg5 of 3 treatments x3 Route: Inhalation; 23:35 Drug: Acetaminophen PO 1000 mg PO once Route: PO; rg5 09/19 01:10 Follow up: Response: No adverse reaction; Pain is decreased rg5 09/18 23:50 Drug: MethylPrednisoLONE IVP 125 mg IVP once Route: IVP; Site: right forearm; rg5 09/19 00:51 Follow up: Response: No adverse reaction rg5 09/18 23:50 Drug: Albuterol Inhalation 2.5 mg Inhalation every 20 minutes x3 Route: Inhalation; rg5 23:50 Drug: Ipratropium Inhalation Aerosol 0.5 mg Inhalation once; Every 20 min for a total rg5 of 3 treatments x3 Route: Inhalation; 09/19 00:03 Drug: Albuterol Inhalation 2.5 mg Inhalation every 20 minutes x3 Route: Inhalation; rg5 00:03 Drug: Ipratropium Inhalation Aerosol 0.5 mg Inhalation once; Every 20 min for a total rg5 of 3 treatments x3 Route: Inhalation; 00:08 Drug: Cefepime IVPB 1 grams IVPB at 200 ml/hr once over 30 mins; (mix in NS 100 mL) rg5 Route: IVPB; Rate: 200 ml/hr; Infused Over: 30 mins; Site: right forearm; 00:40 Follow up: IV Status: Completed infusion; IV Intake: 100ml rg5 00:52 Drug: vancoMYCIN IVPB 1 grams IVPB once over 2 hrs Route: IVPB; Infused Over: 2 hrs; rg5 Site: right forearm; 03:00 Follow up: IV Status: Completed infusion; IV Intake: 250ml rg5 02:01 Drug: Ondansetron IVP 4 mg IVP once; over 2 minutes Route: IVP; Site: right forearm; rg5 03:02 Follow up: Response: No adverse reaction rg5 02:02 Drug: morphine IVP or IV 2 mg IVP once over 4 mins Route: IVP; Infused Over: 4 mins; rg5 Site: right forearm; 03:02 Follow up: Response: No adverse reaction; Pain is decreased rg5 02:56 Drug: Heparin (TX Drip) 12 units/kg/hr - ([place] [address] units, D5W IV 500 ml) IV at rg5 calculated rate Per protocol; Max initial rate 1000 units/hr {Co-Signature: ha1 (Yuli Hines RN).} Route: IV; Rate: 700 units/hr; Site: right forearm; 04:42 Follow up: IV Status: Infusion continued upon transfer rg5 02:58 Drug: Heparin (TX-Bolus No thrombolytic) - HEParin IVP 60 units/kg IVP once; Max 5000 rg5 units {Co-Signature: ismael (Yuli Hines RN).} Route: IVP; Site: right forearm; 03:45 Follow up: Response: No adverse reaction rg5 Medication: 09/18 23:15 VIS not applicable for this client. rg5 Intake: 09/19 00:40 IV: 100ml; Total: 100ml. rg5 03:00 IV: 250ml; Total: 350ml. rg5 04:00 IV: 1000ml; Total: 1350ml. rg5 Outcome: 04:04 ER care complete, transfer ordered by sp4 04:43 Transferred by helicopter to [facility], [facility] 04:43 Condition: stable 04:43 Instructed on the need for transfer, 04:45 Patient left the ED. rg5 NIH Stroke Scale - NIH Stroke Score Date: 09/19/2024 Time: 03:49 Total Score = 7 10. Dysarthria (speech clarity - read or repeat words) - 1(Mild to Moderate) 11. Extinction and Inattention (visual/tactile/auditory/spatial/personal) - 0(No abnormality) 1a. Level of Consciousness (LOC) - 1(Not Alert) 1b. Level of Consciousness (LOC) (Month \T\ Age) - 2(Neither) 1c. LOC Commands (Open \T\ Closes Eyes/Cigar Roller) - 1(One) 2. Best Gaze (Lateral Gaze Paresis) - 0(Normal) 3. Visual Field Loss - 0(No visual loss) 4. Facial Palsy - 0(Normal) 5a. Left Arm: Motor (10-second hold) - 0(No drift) 5b. Right Arm: Motor (10-second hold) - 0(No drift) 6a. Left Leg: Motor (5-second hold - always test supine) - 0(No drift) 6b. Right Leg: Motor (5-second hold - always test supine) - 0(No drift) 7. Limb Ataxia (finger/nose \T\ heel/lan - test with eyes open) - 0(Absent) 8. Sensory Loss (pinprick arms/legs/face) - 0(Normal) 9. Best Language: Aphasia (description/naming/reading) - 2(Severe aphasia) Initials: sp4 Signatures: Dispatcher [employer] Clem Pederson MD MD sp4 Teresa Man Vivian vk Gallardo, Rommel, RN RN rg5 Yuli Hines RN ha1 Corrections: (The following items were deleted from the chart) 00:57 09/18 23:10 BP 133 / 89; Pulse 83bpm; Resp 17bpm; Pulse Ox 96% 4 lpm Nasal rg5 Cannula; Temp 97.9F Oral; Height 4 ft. 11 in.; Pain 5/10, Adult; rg5 09/19 02:17 02:16 Reassessment: No changes from previously documented assessment. Patient rg5 and/or family updated on plan of care and expected duration. Pain level reassessed. Patient is alert, oriented x 3, equal unlabored respirations, skin warm/dry/pink. rg5 02:25 09/18 23:10 BP 133 / 89; Pulse 83bpm; Resp 17bpm; Pulse Ox 96% 4 lpm Nasal rg5 Cannula; Temp 97.9F Oral; 48 kg; Height 4 ft. 11 in.; BMI: 21.3; Pain 5/10, Adult; rg5
[2024-09-19 05:04] VITALS: TEMP 97.9
[2024-09-19 05:13] VITALS: O2SAT 96
[2024-09-19 05:15] VITALS: BP 118/77
--- NOTE | 2024-09-19 10:47 | EKG ---
Test Date: 2024-09-18 Test Time: 23:34:35 [place] Room Operator: HEATHER MEASUREMENT RESULTS: Intervals: Rate: 85 FL: 144 QRSD: 84 QT: 364 QTc: 433 [place]: P: 62 FL: 144 QRS: 98 T: 47 INTERPRETIVE STATEMENTS: Sinus rhythm with premature supraventricular complexes T wave abnormality, consider anterior ischemia Abnormal ECG Compared to ECG 07/22/2024 13:52:26 Atrial premature complex(es) now present T-wave abnormality now present Possible ischemia now present Electronically Signed On 09-19-24 10:46:26 CDT by Renny Parikh
== END 2024-09-19 04:45 | disposition short-term general hospital (02) ==
LOC: ER 23:05
DX: I63.312 Cerebral infarction due to thrombosis of left middle cerebral artery (principal); R29.707 NIHSS score 7; I21.4 Non-ST elevation (NSTEMI) myocardial infarction; I10 Essential (primary) hypertension; J44.1 Chronic obstructive pulmonary disease with (acute) exacerbation; B17.9 Acute viral hepatitis, unspecified; R79.89 Other specified abnormal findings of blood chemistry; R74.01 Elevation of levels of liver transaminase levels
CPT/HCPCS: 96365; 96367; 93005; 87040 ×2; 85025; 81001; 36415; 85610; 82947; 83605; 85730; 84484; 80053; 83880; 70450; 71250; 70496; 70498; 74176; 82805; 51702; 96375; 99285; 96366; 36600; Q9967; J1644; J7613; J7644; J3370; J2270; J2919; J2405; J7050; J7030; J0692